=== PATIENT | female | born 1995 | race Caucasian/White ===

== ENCOUNTER 2017-09-28 19:14 | Outpatient (CLI) | payer MEDICAID, SELFPAY ==
[2017-09-28 20:00] VITALS: BMI 24.9
--- NOTE | 2017-09-28 20:32 | OB.TRI.HP_ITS ---
History of Present Illness Date of Service: 09/28/17 Was patient seen by the physician?: Yes Reason For Visit: R/O LABOR Date of Service: 09/28/17 Final AMANDA: 01/25/18 Final AMANDA Source: US <20 weeks Gestational age: 23 Weeks and 0 Days History of Present Illness: 21yo @ 23 weeks c/o contractions. pt reports was in office last week and was sent to [facility] for R/O PTL- pt reports was dilated 2cm in office. pt reports was at [place] and discharged. Pt denies VB. reports contractions every 5 min. pt reports mucous discharge since 5pm. pt denies recent intercourse. Pt offers no other concerns today. Home Medications Medication Instructions Recorded Albuterol Inhaler [Ventolin Hfa 1 - 2 puff INHALATION Q4H PRN PRN 06/08/17 (SP)] Vit No.130/Iron/FA 1 each PO DAILY 06/08/17 [ Vitamins] Acetaminophen [Tylenol] 650 mg PO Q8H 09/28/17 Allergies codeine Allergy (Verified 09/28/17 19:58) Anaphylaxis latex Allergy (Verified 09/28/17 19:58) Rash Physical Exam General: Alert, Oriented x3 Abdomen: Soft, Non Tender, Gravid Estimated gestational size: Appropriate for gestational size Presentation: Cephalic Cervix Dilation (cm): 1 Station: -3 Effacement (%): 40 NST - FHR Rate Baby A Baseline: 150 Uterine Activity:: uterine irritability Impression/Plan 21yo @ 23 weeks with cramping- not in labor 1) cervical exam stable- if all testing reassuring pt will be dc home- pelvic rest reviewed 2) increase PO fluids 3) off work until October 12- next Appointment in office 4) call if worsening symptoms 5) ROM plus sent 6) urine sent
[2017-09-28 20:42] LABS: ROM Internal Control Test YES-OK TO RESULT pt. (Internal QC); ROM Patient Test Negative (Negative)
[2017-09-28 20:44] LABS: Mucous, Urine 0 SEEN /hpf (<or=2+); Red Blood Cells-Urine 0 SEEN /hpf (0-5)
[2017-09-28 20:47] LABS: Color, Urine Yellow (Yellow); Glucose, Dipstick Normal (Normal); Ketone-Dipstick Negative (Negative); Leukocyte Esterase-Dipstick 500 /ul (Negative); Nitrite-Dipstick Negative (Negative); Occult Blood-Urine Negative /ul (Negative); Protein-Dipstick Negative (Negative); Specific Gravity, Urine 1.015 (1.002-1.030); Urine Bilirubin Dipstick Negative (Negative); Urine Clarity Sl. Cloudy (Clear); Urine Urobilinogen 1 mg/dl (Normal); Urine pH 6.5 (5.0 - 8.0)
[2017-09-28 20:59] LABS: Amorphous Sediment 1+ URATE; Bacteria 2+ /hpf (None Seen); Squamous Epithelial Cells - UA 0-5 SEEN /hpf (5-10); White Blood Cells 10-25 SEEN /hpf (0-5)
== END 2017-09-28 21:35 | disposition home or self-care (01) ==
LOC: WPOUT 19:31 → WP 19:31
PROVIDERS: Family Provider Family Medicine; PCP Family Medicine; Visit Provider Obstetrics & Gynecology
DX: O26.892 Other specified pregnancy related conditions, second trimester (principal); R25.2 Cramp and spasm; Z3A.23 23 weeks gestation of pregnancy
CPT/HCPCS: 59025; 59050; 81001; 84112; 87077; 87086; 87088; 87186; 99218; G0378

== ENCOUNTER 2017-10-11 05:05 | Outpatient (CLI) | payer MEDICAID, SELFPAY ==
[2017-10-11 06:06] LABS: Bacteria 0 SEEN /hpf (None Seen); Red Blood Cells-Urine 0 SEEN /hpf (0-5); White Blood Cells 0 SEEN /hpf (0-5)
[2017-10-11 06:10] LABS: Color, Urine Yellow (Yellow); Glucose, Dipstick Normal (Normal); Ketone-Dipstick Negative (Negative); Leukocyte Esterase-Dipstick Negative /ul (Negative); Nitrite-Dipstick Negative (Negative); Occult Blood-Urine Negative /ul (Negative); Protein-Dipstick Negative (Negative); Specific Gravity, Urine 1.015 (1.002-1.030); Urine Bilirubin Dipstick Negative (Negative); Urine Clarity Clear (Clear); Urine Urobilinogen Normal (Normal)
[2017-10-11 06:21] VITALS: BMI 26.3
[2017-10-11 06:29] LABS: ROM Internal Control Test YES-OK TO RESULT pt. (Internal QC); ROM Patient Test Negative (Negative)
[2017-10-11 06:32] LABS: Mucous, Urine 1+ /hpf (<or=2+); Squamous Epithelial Cells - UA 10-25 SEEN /hpf (5-10)
[2017-10-11 06:53] LABS: Fetal Fibronectin Negative
[2017-10-11 06:54] LABS: Record Kit Lot#, fFN J7025
[2017-10-11] MEDS: Betamethasone/Betamethasone 30 MG/5 ML Vial 12 MG IM (07:12)
--- NOTE | 2017-10-11 08:00 | HP.PCM_ITS ---
<Jessica Hernandez - Last Filed: 10/11/17 07:48> - Problem List (1) Short interval between pregnancies affecting in second trimester, antepartum Status: Acute (2) Tobacco use disorder affecting in second trimester, antepartum Status: Resolved (3) Risk of labor in second trimester Status: Acute (4) History of anxiety Status: Chronic History Date of Admission: 10/11/17 Final AMANDA: 01/25/18 Final AMANDA Source: US <20 weeks Gestational age: 24 Weeks and 6 Days History of this : Uncomplicated antepartum course - evaluation for irregular contractions and pelvic pressure on 09/24/17 and 09/27/17. Dr. Hayden LE consulted, patient was sent to [facility] for evaluation. Patient discharged to home without incident. Patient recently treated for a UTI last week, recently finished 7 day course of Macrobid 100mg PO BID antibiotic Pertinent Past Medical History: Sort interval between History of Anxiety Allergies codeine Allergy (Verified 10/11/17 06:22) Anaphylaxis latex Allergy (Verified 10/11/17 06:22) Rash Proctozone-HC 2.5% rectal cream PRN BID hemorrhoids Zofran 4mg ODT q 8 hours PRN Smoking Status: Former smoker - Quit smoking as of 06/18/17 Alcohol: None Drug Use: none Number of Fetus(es): 1 Review of Systems Constitutional: Denies: Chills, Fever, Weight Change HEENT: Denies: Head Aches, Sinus Congestion, Sinus Drainage Cardiovascular: Denies: Chest Pain, Palpitations Respiratory: Denies: Cough, Shortness of breath at rest, Sputum production Gastrointestinal: Denies: Abdominal Pain, Nausea, Vomiting Genitourinary: Denies: Dysuria Gynecological: Reports: Vaginal discharge - thin watery mucousy discharge noted. ROM plus sent Musculoskeletal: Denies: Joint Pain, Joint Tenderness Skin: Denies: Rash, Wounds Neurological: Denies: Numbness, Tingling, Focal weakness Psychiatric: Denies: Anxiety, Depression, Homicidal Ideations, Suicidal Ideations Hematologic/ Lymphatic: Denies: Easy Bruising, Easy Bleeding Physical Exam Vitals: VSS, afebrile - see nursing note for vital signs FHT by doppler, 150s, + accel auscultated Irregular mild ctx palpated q 5-10 minutes General: Alert, Oriented x3, No apparent distress Cardiovascular: Regular rate, Regular Rhythm Lungs: Clear to auscultation Abdomen: Bowel Sounds Present, Gravid, Appropriate for Gestational Age Extremities:: No edema Estimated gestational size: Appropriate for gestational size Presentation: Cephalic - By ultrasound Cervix Dilation (cm): 0 - External os 2-3cm Station: -3 Effacement (%): 25 Assessment/Plan Active and Suspected Problems Short interval between pregnancies affecting in second trimester, antepartum (Acute) Risk of labor in second trimester (Acute) A: 21 y/o @ 24+ weeks, R/O PTL, R/O PPROM, Reassuring FHT P: 1) Consult with Dr. Lalit LOOMIS about this patient d/t pre-term status 2) fFN, urinalysis and ROM plus sent - all negative results 3) Decision to start course of Betamethasone 12mg IM x1 now, repeat dose due in 24 hours 4) External os cervical change noted though internal os still closed - will have patient maintain PO hydration and then recheck cervix to evaluate change 5) If contractions stop or no cervical change noted anticipate discharge to home with return to hospital tomorrow for 2nd dose of steroid injection. 6) Transfer to medical management Jessica Hernandez CNM <Adilene Cohn - Last Filed: 10/11/17 08:11> History Allergies codeine Allergy (Verified 10/11/17 06:22) Anaphylaxis latex Allergy (Verified 10/11/17 06:22) Rash
--- NOTE | 2017-10-11 12:26 | OB.TRI.NOTE ---
History of Present Illness Date of Service: 10/11/17 Was patient seen by the physician?: Yes Reason For Visit: R/O LABOR Date of Service: 10/11/17 Final AMANDA Source: US <20 weeks Gestational age: 24.6 Home Medications Medication Instructions Recorded Albuterol Inhaler [Ventolin Hfa 1 - 2 puff INHALATION Q4H PRN PRN 06/08/17 (SP)] Vit No.130/Iron/FA 1 each PO DAILY 06/08/17 [ Vitamins] Acetaminophen [Tylenol] 650 mg PO Q8H 09/28/17 Allergies codeine Allergy (Verified 10/11/17 06:22) Anaphylaxis latex Allergy (Verified 10/11/17 06:22) Rash Physical Exam General: Alert, Oriented x3 Abdomen: Soft, Non Tender, Gravid Estimated gestational size: Appropriate for gestational size Presentation: Cephalic Cervix Dilation (cm): 0 Station: -3 Effacement (%): 40 NST - FHR Rate Baby A Uterine Activity:: occsaional - but not well formed contractions- Impression/Plan 21yo @ 24.6 wks- False labor 1) cervical exam- internal os is closed and thick. Repeated 2x by Myself 2) FFN and ROM+ negative 3) Celestone given x 1 pt to return for repeat dose tomorrow 4) F/u in office [facility] on wednesday for Cervical length 5) labor reviewed- [facility]
== END 2017-10-11 12:20 | disposition home or self-care (01) ==
LOC: WPOUT 05:42 → WP 05:42
PROVIDERS: Family Provider Family Medicine; PCP Family Medicine; Visit Provider Obstetrics & Gynecology
DX: O60.02 Preterm labor without delivery, second trimester (principal); O09.892 Supervision of other high risk pregnancies, second trimester; O99.342 Other mental disorders complicating pregnancy, second trimester; F41.9 Anxiety disorder, unspecified; Z3A.24 24 weeks gestation of pregnancy; Z87.440 Personal history of urinary (tract) infections; Z87.891 Personal history of nicotine dependence
CPT/HCPCS: 59050; 76815; 81001; 82731; 84112; 99218; G0378; J0702

== ENCOUNTER 2017-10-12 06:55 | Outpatient (CLI) | payer MEDICAID, SELFPAY ==
[2017-10-12] MEDS: Betamethasone/Betamethasone 30 MG/5 ML Vial 12 MG IM (07:41)
[2017-10-12 07:44] VITALS: BMI 25.0
--- NOTE | 2017-10-14 14:29 | OB.TRI.NOTE ---
History of Present Illness Date of Service: 10/12/17 Was patient seen by the physician?: No Reason For Visit: CELESTONE SHOT Home Medications Medication Instructions Recorded Albuterol Inhaler [Ventolin Hfa 1 - 2 puff INHALATION Q4H PRN PRN 06/08/17 (SP)] Vit No.130/Iron/FA 1 each PO DAILY 06/08/17 [ Vitamins] Acetaminophen [Tylenol] 650 mg PO Q8H 09/28/17 Allergies codeine Allergy (Verified 10/12/17 07:45) Anaphylaxis latex Allergy (Verified 10/12/17 07:45) Rash Impression/Plan 21 YOF high risk multigravida, threatened labor at 23 weeks
== END 2017-10-12 08:00 | disposition home or self-care (01) ==
LOC: WPOUT 06:57 → WP 06:57
PROVIDERS: Family Provider Family Medicine; PCP Family Medicine; Visit Provider Obstetrics & Gynecology
DX: O09.92 Supervision of high risk pregnancy, unspecified, second trimester (principal); O47.02 False labor before 37 completed weeks of gestation, second trimester; Z3A.23 23 weeks gestation of pregnancy
CPT/HCPCS: 96372; 99218; G0378; J0702

== ENCOUNTER 2017-11-08 21:45 | Outpatient (CLI) | payer MEDICAID, SELFPAY ==
[2017-11-08 22:18] VITALS: BMI 27.2
[2017-11-08 23:19] LABS: ROM Internal Control Test YES-OK TO RESULT pt. (Internal QC); ROM Patient Test Negative (Negative)
[2017-11-08 23:40] VITALS: RESP 18
--- NOTE | 2017-11-11 15:40 | OB.TRI.NOTE ---
History of Present Illness Date of Service: 11/11/17 Was patient seen by the physician?: Yes Reason For Visit: R/O LABOR Date of Service: 11/08/17 Gestational age: 29 History of Present Illness: 22-year-old multigravid female presented for complaint of possible rupture of membranes and some irregular contractions. She denied any vaginal bleeding. Good movement. Home Medications Medication Instructions Recorded Albuterol Inhaler [Ventolin Hfa 1 - 2 puff INHALATION Q4H PRN PRN 06/08/17 (SP)] Vit No.130/Iron/FA 1 each PO DAILY 06/08/17 [ Vitamins] Acetaminophen [Tylenol] 650 mg PO Q8H 09/28/17 Allergies codeine Allergy (Verified 11/08/17 22:20) Anaphylaxis Rash latex Allergy (Verified 11/08/17 22:20) Rash Physical Exam Vitals: Vital Signs Resp 18 11/08/17 23:40 General: Alert, Cooperative, No apparent distress Abdomen: Soft, Non Tender, Non-Distended, Gravid Extremities:: No edema Estimated gestational size: Appropriate for gestational size Presentation: Cephalic Cervix Dilation (cm): 0.5 - Thick, firm, posterior Station: -3 Effacement (%): 0 NST - FHR Rate Baby A Baseline: 145 Variability:: Moderate Accelerations:: 15 x 15 Decelerations:: None NST Reactive:: Yes FHR Category:: Category I Uterine Activity:: irritability Impression/Plan James speculum exam done, some yellow thin discharge in the vault. Cervix is nonfriable appears closed. There is no blood or fluid in the vagina. 22-year-old multigravid female with threatened labor at 29 weeks ROM plus is negative. Physical exam is negative for gross rupture of membranes. I reviewed with her that the irritability apparent on the monitor are not contractions but indicative of of or maternal movement. She is to follow-up in the office as scheduled or as needed.
== END 2017-11-08 23:40 | disposition home or self-care (01) ==
LOC: WPOUT 21:48 → WP 21:49
PROVIDERS: Family Provider Family Medicine; PCP Family Medicine; Visit Provider Obstetrics & Gynecology
DX: O47.03 False labor before 37 completed weeks of gestation, third trimester (principal); Z3A.29 29 weeks gestation of pregnancy
CPT/HCPCS: 59025; 59050; 76815; 84112; 87210; 99218; G0378

== ENCOUNTER 2017-12-07 10:55 | Outpatient (CLI) | payer MEDICAID, SELFPAY ==
[2017-12-07 11:33] VITALS: BMI 27.6
--- NOTE | 2017-12-07 17:18 | OB.TRI.NOTE ---
History of Present Illness Date of Service: 12/07/17 Was patient seen by the physician?: No Reason For Visit: MONITORING Date of Service: 12/07/17 Final AMANDA: 01/25/18 Final AMANDA Source: US <20 weeks Gestational age: 33 Weeks and 0 Days History of Present Illness: 22-year-old high risk multigravid female presented to the office today complaining of contractions. She was found to not be in labor but upon monitoring she had marked variability and what appeared to be possible tachycardia. She was sent labor and delivery for prolonged monitoring. Home Medications Medication Instructions Recorded Albuterol Inhaler [Ventolin Hfa 1 - 2 puff INHALATION Q4H PRN PRN 06/08/17 (SP)] Vit No.130/Iron/FA 1 each PO DAILY 06/08/17 [ Vitamins] Acetaminophen [Tylenol] 650 mg PO Q8H 09/28/17 Allergies codeine Allergy (Verified 11/08/17 22:20) Anaphylaxis Rash latex Allergy (Verified 11/08/17 22:20) Rash NST - FHR Rate Baby A Baseline: 145 Variability:: Moderate Accelerations:: 15 x 15 Decelerations:: None NST Reactive:: Yes FHR Category:: Category I Uterine Activity:: irreg ctxs Impression/Plan 22-year-old high risk multigravida female at 33 gestational weeks with threatened labor. No significant cervical change from last week when the patient was examined in the office. Reassured. Nonstress test is category 1 here. Home with kick counts and labor precautions and follow-up in the office in 2 weeks or as needed.
== END 2017-12-07 12:55 | disposition home or self-care (01) ==
LOC: WPOUT 11:07 → WP 12-08 09:42
PROVIDERS: Family Provider Family Medicine; PCP Family Medicine; Visit Provider Obstetrics & Gynecology
DX: O09.93 Supervision of high risk pregnancy, unspecified, third trimester (principal); O60.03 Preterm labor without delivery, third trimester; Z3A.33 33 weeks gestation of pregnancy
CPT/HCPCS: 59025; 99218; G0378

== ENCOUNTER 2017-12-09 05:25 | Outpatient (CLI) | payer MEDICAID, SELFPAY ==
[2017-12-09 06:06] LABS: Mucous, Urine 0 SEEN /hpf (<or=2+); Red Blood Cells-Urine 0 SEEN /hpf (0-5)
[2017-12-09 06:21] VITALS: BMI 27.6
[2017-12-09 06:24] LABS: Color, Urine Straw (Yellow); Glucose, Dipstick Normal (Normal); Ketone-Dipstick Negative (Negative); Leukocyte Esterase-Dipstick Negative /ul (Negative); Nitrite-Dipstick Negative (Negative); Occult Blood-Urine Negative /ul (Negative); Protein-Dipstick Negative (Negative); Urine Bilirubin Dipstick Negative (Negative); Urine Clarity Clear (Clear); Urine Urobilinogen Normal (Normal)
[2017-12-09 06:31] LABS: Bacteria 1+ /hpf (None Seen)
[2017-12-09 06:32] LABS: Squamous Epithelial Cells - UA 5-10 SEEN /hpf (5-10); White Blood Cells 0-5 SEEN /hpf (0-5)
[2017-12-09] MEDS: Lactated Ringers 1,000 ML 999 ML IV (07:30)
--- NOTE | 2017-12-09 10:23 | OB.TRI.NOTE ---
History of Present Illness Date of Service: 12/09/17 Was patient seen by the physician?: Yes Reason For Visit: CRAMPING Date of Service: 12/09/17 Final AMANDA Source: US <20 weeks Gestational age: 33.2 Home Medications Medication Instructions Recorded Albuterol Inhaler [Ventolin Hfa 1 - 2 puff INHALATION Q4H PRN PRN 06/08/17 (SP)] Vit No.130/Iron/FA 1 each PO DAILY 06/08/17 [ Vitamins] Acetaminophen [Tylenol] 650 mg PO Q8H PRN 09/28/17 Hydrocortisone 2.5% Crm [Hytone] 1 applicatio PRN PRN 12/09/17 Allergies codeine Allergy (Verified 11/08/17 22:20) Anaphylaxis Rash latex Allergy (Verified 11/08/17 22:20) Rash Physical Exam General: Alert, Oriented x3 Abdomen: Soft, Non Tender, Gravid Estimated gestational size: Appropriate for gestational size Presentation: Cephalic Cervix Dilation (cm): 2 Station: -3 Effacement (%): 0 NST - FHR Rate Baby A Baseline: 140 Variability:: Moderate Accelerations:: 15 x 15 Decelerations:: None NST Reactive:: Yes FHR Category:: Category I Uterine Activity:: 2-4 but after Hydration only occaisonal contractions Impression/Plan 22yo @ 33.2 wks with contractions, NOT IN LABOR 1) reviewed PO hydration 2) DC HOME 3) F/u in office as scheduled.
== END 2017-12-09 10:30 | disposition home or self-care (01) ==
LOC: WPOUT 05:33 → WP 05:33
PROVIDERS: Family Provider Family Medicine; PCP Family Medicine; Visit Provider Obstetrics & Gynecology
DX: O60.03 Preterm labor without delivery, third trimester (principal); Z3A.33 33 weeks gestation of pregnancy
CPT/HCPCS: 59025; 59050; 81001; 99218; J7120; G0378

== ENCOUNTER 2017-12-23 10:55 | Outpatient (CLI) | payer MEDICAID, SELFPAY ==
[2017-12-23 11:11] VITALS: BMI 27.4
[2017-12-23 11:41] LABS: ROM Internal Control Test YES-OK TO RESULT pt. (Internal QC); ROM Patient Test Negative (Negative)
--- NOTE | 2017-12-23 12:29 | OB.TRI.NOTE ---
- Problem List (1) Decreased movement during in third trimester, antepartum Status: Acute Qualifiers: Fetus number: single or unspecified fetus Qualified Code(s): O36.8130 - Decreased movements, third trimester, not applicable or unspecified (2) Vaginal discharge during in third trimester Status: Acute (3) Risk of labor in second trimester Status: Acute History of Present Illness Date of Service: 12/23/17 Was patient seen by the physician?: No Reason For Visit: RO SROM AND DECREASED MOVEMENT Date of Service: 12/23/17 Final AMANDA: 01/25/18 Final AMANDA Source: US <20 weeks Gestational age: 35 Weeks and 2 Days History of Present Illness: Patient called office today reporting no palpable movement since 9pm last night. Patient also reported need to change her underwear 4 times since this morning as they were soaked. Patient unsure if she is having any regular cramps or contractions at this time. Home Medications Medication Instructions Recorded Albuterol Inhaler [Ventolin Hfa 1 - 2 puff INHALATION Q4H PRN PRN 06/08/17 (SP)] Vit No.130/Iron/FA 1 each PO DAILY 06/08/17 [ Vitamins] Acetaminophen [Tylenol] 650 mg PO Q8H PRN 09/28/17 RX: Hydrocortisone 2.5% Crm 1 applicatio PRN PRN 12/09/17 [Hytone] Allergies codeine Allergy (Verified 11/08/17 22:20) Anaphylaxis Rash latex Allergy (Verified 11/08/17 22:20) Rash - Pertinent Past Medical History Pertinent Past Medical History: Hx of Anxiety - currently has been off medication during the as she has felt her symptoms have been well controlled Hx of tobacco use during , currently smoking 1/4-1/2 ppd Short Interval between pregnancies affecting management Physical Exam Vitals: See Nursing Note for Vital Signs. Exam done by nursing staff. Cervical dilation unchanged from previous admission. ROM plus negative. Abdomen: Gravid, Appropriate for Gestational Age Cervix Dilation (cm): 2 NST - FHR Rate Baby A Baseline: 145 Variability:: Moderate Accelerations:: 15 x 15 Decelerations:: None NST Reactive:: Yes FHR Category:: Category I Uterine Activity:: Uterine irritability noted - irregular ctx Impression/Plan 22 y/o @ 35.2 weeks, False Labor, Category I FHT, Leukorrhea of P: 1) Patient discharged to home 2) Plan to f/u as scheduled at [place] [facility] Office Jessica ALVAREZ
== END 2017-12-23 12:05 | disposition home or self-care (01) ==
LOC: WPOUT 11:08 → WP 11:09
PROVIDERS: Family Provider Family Medicine; PCP Family Medicine; Visit Provider Obstetrics & Gynecology
DX: O47.03 False labor before 37 completed weeks of gestation, third trimester (principal); O99.89 Other specified diseases and conditions complicating pregnancy, childbirth and the puerperium; N89.8 Other specified noninflammatory disorders of vagina; O36.8130 Decreased fetal movements, third trimester, not applicable or unspecified; O99.343 Other mental disorders complicating pregnancy, third trimester; F41.9 Anxiety disorder, unspecified; O99.333 Smoking (tobacco) complicating pregnancy, third trimester; F17.210 Nicotine dependence, cigarettes, uncomplicated; O09.893 Supervision of other high risk pregnancies, third trimester; Z3A.35 35 weeks gestation of pregnancy
CPT/HCPCS: 59025; 59050; 84112; 99218; G0378

== ENCOUNTER 2017-12-26 22:50 | Outpatient (CLI) | payer MEDICAID, SELFPAY ==
[2017-12-26 22:58] VITALS: BMI 28.3
[2017-12-26 23:34] LABS: ROM Internal Control Test YES-OK TO RESULT pt. (Internal QC); ROM Patient Test Negative (Negative)
--- NOTE | 2017-12-30 11:04 | OB.TRI.NOTE ---
History of Present Illness Date of Service: 12/26/17 Was patient seen by the physician?: No Reason For Visit: R/O SROM Date of Service: 12/26/17 Final AMANDA Source: US <20 weeks Gestational age: 36 Home Medications Medication Instructions Recorded Albuterol Inhaler [Ventolin Hfa 1 - 2 puff INHALATION Q4H PRN PRN 06/08/17 (SP)] Vit No.130/Iron/FA 1 each PO DAILY 06/08/17 [ Vitamins] Acetaminophen [Tylenol] 650 mg PO Q8H PRN 09/28/17 Allergies codeine Allergy (Verified 11/08/17 22:20) Anaphylaxis Rash latex Allergy (Verified 11/08/17 22:20) Rash NST - FHR Rate Baby A Baseline: 140 bpm Variability:: Moderate Accelerations:: 15 x 15 Decelerations:: None NST Reactive:: Yes, Appropriate for gestational age FHR Category:: Category I Uterine Activity:: irreg ctxs Impression/Plan 22 YOF high risk multigravida at 36 weeks w/ threatened PTL. No SROM, no evidence of labor f/u as scheduled or prn
== END 2017-12-26 23:45 | disposition home or self-care (01) ==
LOC: WPOUT 22:55 → WP 22:56
PROVIDERS: Family Provider Family Medicine; PCP Family Medicine; Visit Provider Obstetrics & Gynecology
DX: O09.93 Supervision of high risk pregnancy, unspecified, third trimester (principal); O60.03 Preterm labor without delivery, third trimester; Z3A.36 36 weeks gestation of pregnancy
CPT/HCPCS: 59025; 59050; 84112; 99218; G0378

== ENCOUNTER 2018-01-09 20:44 | Outpatient (CLI) | payer MEDICAID, SELFPAY ==
--- NOTE | 2018-01-09 20:44 | DT_ITS ---
This patient was seen during an EMR downtime January 10, 2018 - January 17, 2018. This patient may have a combination of paper and electronic documentation or all paper documentation. All documentation is viewable within the e-chart portion of [facility] for each patient visit.
[2018-01-09 21:19] LABS: Absolute Lymphocyte Count 2.17 X10^3/ul (0.83-4.51); Absolute Neutrophil Count 5.8 X10^3/uL (2.0-7.7); Basophil# 0.01 X10^3/uL; Basophil% 0.1 % (0-1); Eosinophil# 0.09 X10^3/uL; Hematocrit 29.8 % (37-47); Hemoglobin 9.6 g/dl (12.0-15.0); Lymphocyte # 2.17 X10^3/ul (4.0); Lymphocyte % 25.1 % (19-41); Mean Corp Hgb Conc 32.2 g/gl (32-36); Mean Corpuscular Hgb 28.4 pg (27.0-32.0); Mean Corpuscular Volume 88.2 fL (81-99); Mean Platelet Vol. 9.2 fl (6.2-12.0); Monocyte# 0.56 X10^3/uL; Monocyte% 6.5 % (0-10); Neutrophil # 5.78 X10^3/uL (2.7-7.7); Neutrophil % 67.1 % (47-70); Platelet Count 253 K/mm3 (150-450); RBC Distribution Width CV 12.9 % (11.6-14.6); RBC Distribution Width SD 41.9 fl (35.1-43.9); Red Blood Count 3.38 M/mm3 (4.2-5.4); White Blood Count 8.6 K/mm3 (4.4-11.0)
[2018-01-09 21:23] LABS: POSITIVE COUNT NO; POSITIVE DIFFERENTIAL NO; POSITIVE MORPHOLOGY NO
[2018-01-09 21:26] VITALS: BMI 27.8
[2018-01-09] MEDS: Lactated Ringers 1,000 ML 500 ML IV (21:27)
[2018-01-09 21:32] LABS: Prothrombin Time (Protime)PT. 13.2 SECONDS (11.7-14.9)
[2018-01-09 21:33] LABS: Fibrinogen 468 mg/dl (203-444); Partial Thromboplast Time 25.1 Seconds (24.1-36.2)
[2018-01-09 21:37] LABS: ALB/GLOB Ratio 0.6 RATIO (0.9-2.4); AST(SGOT) 18 U/L (15-37); Alanine Aminotransfer ALT/SGPT 15 U/L (13-56); Albumin, Serum 2.8 g/dL (3.2-5.0); Alkaline Phosphatase 91 U/L (45-117); Anion Gap 10 (5-15); BUN 6 mg/dL (7-18); BUN/Creat Ratio 9.8 RATIO (10-20); Calcium,Total 8.7 mg/dL (8.5-10.1); Chloride 107 mmol/L (98-107); Creatinine, Serum 0.61 mg/dL (0.55-1.02); EST Glomerular Filtration Rate 130 mL/min (>60); Est Glom Filt Rate - Afr Amer 157 mL/min (>60); Estimated Creatinine Clearance 130.17 ml/min; Globulin 4.4 g/dL (2.2-4.2); Glucose 96 mg/dL (74-106); Potassium 3.8 mmol/L (3.5-5.1); Protein, Total 7.2 g/dL (6.4-8.2); Sodium Level 139 mmol/L (136-145)
--- NOTE | 2018-03-08 23:19 | OB.TRI.NOTE ---
History of Present Illness Date of Service: 01/09/18 Was patient seen by the physician?: No Reason For Visit: R/O LABOR Final AMANDA Source: US <20 weeks Allergies codeine Allergy (Mild, Verified 01/19/18 17:39) Rash Rash latex Allergy (Verified 01/09/18 21:28) Rash Impression/Plan NST for false labor
== END 2018-01-10 01:15 | disposition home or self-care (01) ==
LOC: WPOUT 20:54 → WP 20:55
PROVIDERS: Family Provider Family Medicine; PCP Family Medicine; Visit Provider Obstetrics & Gynecology
DX: O47.9 False labor, unspecified (principal); Z3A.00 Weeks of gestation of pregnancy not specified
CPT/HCPCS: 96360; 96361; 59025; 59050; 80053; 85025; 85384; 85610; 85730; 86850; 86900; 99218; J7120; G0378

== ENCOUNTER 2018-01-18 06:45 | Inpatient (IN) | payer MEDICAID, SELFPAY ==
[2018-01-18 06:52] VITALS: BMI 28.1
[2018-01-18] MEDS: Lactated Ringers 1,000 ML 50 ML IV ×2 (07:41→09:44)
[2018-01-18] MEDS: Oxytocin 30 units/NS 500 ml 30 UNITS/500 ML IV.SOLN IV (07:51)
[2018-01-18 07:53] LABS: Hematocrit 29.9 % (37-47); Hemoglobin 9.6 g/dl (12.0-15.0); Mean Corp Hgb Conc 32.1 g/gl (32-36); Mean Corpuscular Volume 90.3 fL (81-99); Mean Platelet Vol. 9.3 fl (6.2-12.0); Platelet Count 267 K/mm3 (150-450); RBC Distribution Width CV 12.6 % (11.6-14.6); RBC Distribution Width SD 40.1 fl (35.1-43.9); Red Blood Count 3.31 M/mm3 (4.2-5.4); White Blood Count 9.7 K/mm3 (4.4-11.0)
[2018-01-18 07:54] LABS: Scan Indicated on CBC? Y/N NO
[2018-01-18] MEDS: fentaNYL-bupivacaine (epidural) 100 ML BAG EPIDURAL (09:31)
[2018-01-18] MEDS: Oxytocin 30 units/NS 500 ml 30 UNITS/500 ML IV.SOLN 334 UNITS IV (13:19)
--- NOTE | 2018-01-18 13:31 | PCM.OB.VAG ---
Vaginal Delivery Maternal Presentation: Elective Induction Method of Induction: Pitocin, Amniotomy Amniotic Membrane Rupture Type: Artificial Amniotic Fluid Description: Lightly stained meconium Final AMANDA: 01/25/18 Final AMANDA Source: US <20 weeks Gestational age: 39 Weeks and 0 Days Date of Procedure: 01/18/18 Pre-Operative Diagnosis: labor Post-Operative Diagnosis: same Surgery/ Procedure Performed: Spontaneous Vaginal Delivery Type of Anesthesia: Epidural Description of Procedure: A vigorous female was delivered ESTELA over a second-degree perineal laceration. The remainder the infant was delivered with maternal pushing and gentle traction only in less than 15 seconds. The Pitocin infusion was initiated for active management of the third stage. The cord was clamped and cut after 1 minute. The was attended to by the waiting nursing staff. The placenta was delivered spontaneously and intact. The cervix and vagina were intact. The second-degree perineal laceration was repaired with 3-0 Vicryl suture in a running standard fashion. Sponge and needle counts were correct. A vaginal sweep was completed by me. Presentation: ESTELA Placental Delivery Description: Spontaneous Placenta Disposition: [facility] Cord Vessel Description: 3 Vessels Cord Entanglement: None Drain: Campbell to straight drain - removed immediately before delivery Estimated Blood Loss: 300 A gender: Female (1 minute): 8 (5 minute): 9 Episiotomy Description: None Laceration: 2nd degree - perineal
--- NOTE | 2018-01-18 13:33 | PCM.HP.OB ---
History Date of Admission: 10/11/17 Final AMANDA: 01/25/18 Final AMANDA Source: US <20 weeks Gestational age: 39 Weeks and 0 Days History of this : 22-year-old 4 para 1021 who presents at 39 weeks gestation with EDC of 01/25/2018 by first trimester ultrasound alone presents for elective induction of labor. She has been in the office in labor and delivery multiple times this for contractions and threatened labor. She denies any gross vaginal bleeding or leaking of fluid. She has had no regular contractions today before admission. Past medical history is significant for history of depression Past surgical history : Teeth extraction. Allergies codeine Allergy (Verified 01/09/18 21:28) Anaphylaxis Rash latex Allergy (Verified 01/09/18 21:28) Rash Home Medications: Home Medications Albuterol Inhaler [Ventolin Hfa (SP)] 1 - 2 puff INHALATION Q4H PRN PRN 06/08/17 Vit No.130/Iron/FA [ Vitamins] 1 each PO DAILY 06/08/17 Acetaminophen [Tylenol] 650 mg PO Q8H PRN 09/28/17 Smoking Status: Former smoker Alcohol: None Number of Fetus(es): 1 History Past Pregnancies: Past Pregnancies Delivery Date Name GA/Weeks Outcome Route Weight Gender Labor Length Anesthesia Delivery Location Provider FOB Expected Infant Delivery Method: Spontaneous Vaginal Review of Systems Constitutional: Denies: Chills, Fever Eyes: Denies: Blurred vision Cardiovascular: Denies: Chest Pain Respiratory: Denies: Cough Physical Exam General: Alert, Cooperative Cardiovascular: Regular rate Lungs: Normal air movement Abdomen: Soft, Non Tender, Non-Distended, Gravid, Appropriate for Gestational Age Extremities:: No edema SAW SUPERINTENDENT: Normal external genitalia Estimated gestational size: Appropriate for gestational size Presentation: Cephalic Cervix Dilation (cm): 5 - posterior, med. consistency Station: -2 Effacement (%): 70 - AROM w/ moderate amt light msf Assessment/Plan All Active Problems Short interval between pregnancies affecting in second trimester, antepartum (Acute) Tobacco use disorder affecting in second trimester, antepartum (Resolved) Risk of labor in second trimester (Acute) Decreased movement during in third trimester, antepartum (Acute) Vaginal discharge during in third trimester (Acute) This is a 22 year-old, G 4, P 1021, at 39 weeks gestational age. Risk benefits and alternatives to elective induction labrum discussed with the patient, her questions were answered to her satisfaction and she desires to proceed. May have epidural, nitrous oxide, or Nubain as needed for pain control. Estimated weight is less than 4500 g clinically and pelvis is clinically adequate to expect vaginal delivery. She has light meconium-stained fluid in the resident surgeon has been notified to attend delivery.
--- NOTE | 2018-01-18 13:38 | HP.PCM_ITS ---
History Date of Admission: 10/11/17 Final AMANDA: 01/25/18 Final AMANDA Source: US <20 weeks Gestational age: 39 Weeks and 0 Days History of this : 22-year-old 4 para 1021 who presents at 39 weeks gestation with EDC of by first trimester ultrasound alone presents for elective induction of labor. She has been in the office in labor and delivery multiple times this for contractions and threatened labor. She denies any gross vaginal bleeding or leaking of fluid. She has had no regular contractions today before admission. Past medical history is significant for history of depression Past surgical history : Teeth extraction. Allergies codeine Allergy (Verified 01/09/18 21:28) Anaphylaxis Rash latex Allergy (Verified 01/09/18 21:28) Rash Home Medications: Home Medications Albuterol Inhaler [Ventolin Hfa (SP)] 1 - 2 puff INHALATION Q4H PRN PRN Vit No.130/Iron/FA [ Vitamins] 1 each PO DAILY 06/08/17 Acetaminophen [Tylenol] 650 mg PO Q8H PRN 09/28/17 Smoking Status: Former smoker Alcohol: None Number of Fetus(es): 1 History Past Pregnancies: Past Pregnancies Delivery Date Name GA/Weeks Outcome Route Weight Gender Labor Length Anesthesia Delivery Location Provider FOB Expected Delivery Method: Spontaneous Vaginal Review of Systems Constitutional: Denies: Chills, Fever Eyes: Denies: Blurred vision Cardiovascular: Denies: Chest Pain Respiratory: Denies: Cough Physical Exam General: Alert, Cooperative Cardiovascular: Regular rate Lungs: Normal air movement Abdomen: Soft, Non Tender, Non-Distended, Gravid, Appropriate for Gestational Age Extremities:: No edema IT SECURITY CONSULTANT: Normal external genitalia Estimated gestational size: Appropriate for gestational size Presentation: Cephalic Cervix Dilation (cm): 5 - posterior, med. consistency Station: -2 Effacement (%): 70 - AROM w/ moderate amt light msf Assessment/Plan All Active Problems Short interval between pregnancies affecting in second trimester, antepartum (Acute) Tobacco use disorder affecting in second trimester, antepartum ( Resolved) Risk of labor in second trimester (Acute) Decreased movement during in third trimester, antepartum (Acute) Vaginal discharge during in third trimester (Acute) This is a 22 year-old, G 4, P 1021, at 39 weeks gestational age. Risk benefits and alternatives to elective induction labrum discussed with the patient, her questions were answered to her satisfaction and she desires to proceed. May have epidural, nitrous oxide, or Nubain as needed for pain control. Estimated weight is less than 4500 g clinically and pelvis is clinically adequate to expect vaginal delivery. She has light meconium-stained fluid in the casino slot supervisor has been notified to attend delivery.
[2018-01-18] MEDS: Oxytocin 30 units/NS 500 ml 30 UNITS/500 ML IV.SOLN 167 UNITS IV (13:50)
[2018-01-18] MEDS: 0.9% Saline Lock 10 ML Syringe IV (15:33)
[2018-01-18 17:30] VITALS: BP 102/73; PULSE 78; RESP 16; TEMP 36.9
[2018-01-18] MEDS: Naproxen 250 MG Tablet PO (18:41)
[2018-01-18 20:10] VITALS: BP 106/60; PULSE 88; RESP 18; TEMP 36.3
[2018-01-18] MEDS: Acetaminophen 500 MG Tablet 1000 MG PO (20:19)
[2018-01-19] VITALS: BP 109/61; PULSE 92; RESP 18; TEMP 36
[2018-01-19] MEDS: Naproxen 250 MG Tablet PO ×3 (02:20→21:09)
[2018-01-19 05:15] VITALS: BP 105/66; PULSE 88; RESP 18; TEMP 36.1
[2018-01-19] MEDS: Acetaminophen 500 MG Tablet 1000 MG PO ×2 (06:40→13:58)
[2018-01-19 08:00] VITALS: BP 99/62; PULSE 79; RESP 20; TEMP 36.2; O2SAT 96
--- NOTE | 2018-01-19 08:45 | PCM.PN.OB ---
Subjective: pain well controlled, average lochia, c/o cramping, destiny. w/ nursing - Physical Exam General: Alert, Cooperative, No apparent distress Vital Signs Temp Pulse Resp BP Pulse Ox 97.2 F L 79 20 H 99/62 96 01/19/18 08:00 01/19/18 08:00 01/19/18 08:00 01/19/18 08:00 01/19/18 08:00 Oxygen Delivery Method Room Air Weight: 76.7 kg Body Mass Index (BMI) 28.1 Intake and Output for Last 24 Hours 01/17/18 01/18/18 01/19/18 23:59 23:59 23:59 Intake Total 2214 / 2214 Output Total 2400 / 2400 Balance -186 / -186 Laboratory Tests Past 24 Hrs 01/18/18 07:40 Blood Type A POSITIVE Antibody Screen NEGATIVE Medical Necessity - Tobacco Use Smoking Status: Former smoker Assessment/Plan All Active Problems Short interval between pregnancies affecting in second trimester, antepartum (Acute) Tobacco use disorder affecting in second trimester, antepartum (Resolved) Risk of labor in second trimester (Acute) Decreased movement during in third trimester, antepartum (Acute) Vaginal discharge during in third trimester (Acute) PPD#1 doing well work on likely home tomorrow
--- NOTE | 2018-01-19 08:48 | PN.OBGYN_ITS ---
Subjective: pain well controlled, average lochia, c/o cramping, destiny. w/ nursing - Physical Exam General: Alert, Cooperative, No apparent distress Vital Signs Temp Pulse Resp BP Pulse Ox 97.2 F L 79 20 H 99/62 96 01/19/18 08:00 01/19/18 08:00 01/19/18 08:00 01/19/18 08:00 01/19/18 08:00 Oxygen Delivery Method Room Air Weight: 76.7 kg Body Mass Index (BMI) 28.1 Intake and Output for Last 24 Hours 01/17/18 01/18/18 01/19/18 23:59 23:59 23:59 Intake Total 2214 / 2214 Output Total 2400 / 2400 Balance -186 / -186 Laboratory Tests Past 24 Hrs 01/18/18 07:40 Blood Type A POSITIVE Antibody Screen NEGATIVE Medical Necessity - Tobacco Use Smoking Status: Former smoker Assessment/Plan All Active Problems Short interval between pregnancies affecting in second trimester, antepartum (Acute) Tobacco use disorder affecting in second trimester, antepartum ( Resolved) Risk of labor in second trimester (Acute) Decreased movement during in third trimester, antepartum (Acute) Vaginal discharge during in third trimester (Acute) PPD#1 doing well work on likely home tomorrow
[2018-01-19] MEDS: Senna/Docusate Sodium 1 Tablet PO (12:24)
[2018-01-19 12:25] VITALS: BP 106/66; PULSE 79; TEMP 36.6; O2SAT 94
[2018-01-19] MEDS: Hydrocortisone 2.5% Crm 1 APPLIC TOPICAL (13:57)
[2018-01-19 15:15] VITALS: BP 107/71; PULSE 81; RESP 16; TEMP 36.7; O2SAT 98
[2018-01-19] MEDS: Dibucaine 30 GM Tube 1 APPLIC TOPICAL (15:23)
[2018-01-19] MEDS: oxyCODONE 5 MG Tablet PO (18:27)
[2018-01-19 21:00] VITALS: BP 110/66; PULSE 79; RESP 18; TEMP 36.7
--- NOTE | 2018-01-19 22:16 | NURSING ---
pt states her urine has a somewhat foul smell, similar to what she had with last . Enc her to drink plenty of fluids and speak with Dr. Cohn in am.
[2018-01-20 01:30] VITALS: BP 97/66; PULSE 80; RESP 18; TEMP 36.3
[2018-01-20] MEDS: Acetaminophen 500 MG Tablet 1000 MG PO ×2 (01:45→09:19)
[2018-01-20] MEDS: Naproxen 250 MG Tablet PO (06:29)
--- NOTE | 2018-01-20 08:34 | PN.OBGYN_ITS ---
Subjective: pain well controlled, average lochia, stopped - Physical Exam General: Alert, Cooperative, No apparent distress Vital Signs Temp Pulse Resp BP Pulse Ox 97.4 F L 80 18 97/66 98 01/20/18 01:30 01/20/18 01:30 01/20/18 01:30 01/20/18 01:30 01/19/18 15:15 Oxygen Delivery Method Room Air Weight: 76.7 kg Body Mass Index (BMI) 28.1 Intake and Output for Last 24 Hours 01/18/18 01/19/18 01/20/18 23:59 23:59 23:59 Intake Total 2214 / 2214 Output Total 2400 / 2400 Balance -186 / -186 Medical Necessity - Tobacco Use Smoking Status: Former smoker Assessment/Plan All Active Problems Short interval between pregnancies affecting in second trimester, antepartum (Acute) Tobacco use disorder affecting in second trimester, antepartum ( Resolved) Risk of labor in second trimester (Acute) Decreased movement during in third trimester, antepartum (Acute) Vaginal discharge during in third trimester (Acute) PPD#2 doing well routine care stopped d/c home
--- NOTE | 2018-01-20 08:35 | DCINST_ITS ---
Discharge Diet: No Restrictions Discharge Activity: Return to Normal Activity, May not drive while taking narcotic pain medications., May Shower May resume sexual activity in: 4-6 weeks Additional Activity Instructions:: Nothing in the vagina for 4-6 weeks. You may return to work/school in 6 weeks. Call your doctor if your incision/area has: Continuous Slow Oozing, Sudden Increased Bleeding, Increased Pain/ Swelling, Increased Redness, Foul Smelling Discharge Additional Instructions: If you experience any of the following, contact your healthcare provider. * Bleeding that soaks a pad every hour for 2 hours * Fever 100.4 or higher * Unrelieved incision or abdominal pain * Swelling, redness, discharge or bleeding from your incision or episiotomy site * Your incision begins to separate * Problems urinating (including inability to urinate or burning while urinating) . * Visual changes * Severe headache * Flu-like symptoms * Pain or redness in one of both of your breasts * Pain, warmth, tenderness or swelling in your legs, especially the calf area * Frequent nausea and vomiting * Symptoms of depression or anxiety If you experience any of the following, call 911 or go to the nearest Emergency Room. * Chest pain * Problems breathing * Seizure activity * Partial or complete paralysis of a body part, slurred speech, weakness or drooping of the face, or a sudden inability to walk or hold your balance Allergies/Adverse Reactions: Allergies codeine Allergy (Mild, Verified 01/19/18 17:39) Rash Rash latex Allergy (Verified 01/09/18 21:28) Rash Medications to take at Discharge Albuterol Inhaler [Ventolin Hfa] 1 - 2 puff INHALATION Q4H PRN PRN 06/08/17 Vit No.130/Iron/FA [ Tablet] 1 each PO DAILY 06/08/17 Acetaminophen [Tylenol] 650 mg PO Q8H PRN 09/28/17 Ibuprofen [Motrin] 800 mg PO TID PRN PRN #60 tab 01/20/18 The following prescriptions were given: Ibuprofen [Motrin] 800 mg PO TID PRN PRN #60 tab PRN Reason: Pain Please Follow Up With: Adilene Cohn MD - [phone] When: Call to make an appointment with your doctor in 6 weeks. If you had elevated Blood Pressure or 4th degree laceration you will need to be seen in 2 weeks. Primary Care Physician: Ran Johnson [Primary Care Provider] -
[2018-01-20 09:06] VITALS: BP 95/71; PULSE 80; RESP 18; TEMP 36.1; O2SAT 95
== END 2018-01-20 11:50 | disposition home or self-care (01) | DRG 373 ==
PROVIDERS: Admitting Provider Obstetrics & Gynecology; Family Provider Family Medicine; PCP Family Medicine; Visit Provider Obstetrics & Gynecology
DX: O75.89 Other specified complications of labor and delivery (principal); O70.1 Second degree perineal laceration during delivery; O77.0 Labor and delivery complicated by meconium in amniotic fluid; O99.333 Smoking (tobacco) complicating pregnancy, third trimester; Z87.891 Personal history of nicotine dependence; Z91.040 Latex allergy status; Z88.5 Allergy status to narcotic agent; Z3A.39 39 weeks gestation of pregnancy; Z37.0 Single live birth
CPT/HCPCS: 59025; 59050; 85027; 86850; 86900; 99218; J7120; A4216; G0378; J0290; J3490

== ENCOUNTER 2018-04-28 05:29 | Day surgery (SDC) | payer MEDICAID, SELFPAY ==
[2018-04-28] VITALS (10 sets, daily range): BP systolic 100–120; BP diastolic 61–76; PULSE 56–77; RESP 14–16; TEMP 36.4–36.8; O2SAT 92–100; BMI 25.7
--- NOTE | 2018-04-28 | FALS_PTH ---
PATIENT: CAMERON YI LOC: [facility] [place] [facility] [place][id number] AGE/SX: 22/ ROOM: RE04/28/[address]: Dr. Adilene Cohn MD : [id number] BED: DIS: 04/28/2018 SPEC #: [id number] RECD: 04/28/18 12:24 STATUS: GOMEZ REArnol #: [id number] SHAWANDA: 04/28/18 00:[address]: Adilene Cohn DEPT: SURGICAL PATHOLOGY RECD BY: Devin Kim ENTERED: 04/28/18 12:25 SP TYPE: FALL TUBES OTHR DR: Dr. Ran Johnson, DO Tissues: Fallopian tube Procedures: Surgery Specimen Level II HEADER OPERATION: Laparoscopic salpingectomy PRE-OP DIAGNOSIS: Sterilization request TISSUE SUBMITTED: Bilateral fallopian tubes MICROSCOPIC DIAGNOSIS Bilateral fallopian tubes, salpingectomy: Bilateral fallopian tubes including fimbrial ends, no pathologic diagnosis. SJ:dylan 04/29/18 MICROSCOPIC DESCRIPTION Slides are reviewed. GROSS DESCRIPTION Received is one container labeled with the patient's name and designated bilateral fallopian tubes. The specimen consists of bilateral fallopian tubes including fimbrial ends each measuring 6 cm in length and 0.6 cm in diameter. The fallopian tubes are not identified as right or left. Sections do not reveal any mass lesion. Powder Coat Painter sections are submitted in two cassettes with each cassette containing one fallopian tube. / KAYLIN:dylan 04/28/18 TC:4 [facility]: [id number] x2
[2018-04-28 06:04] LABS: Internal QC Validated? YES +Cl - CLEAR BKGD; Pregnancy, Urine Negative Negative
[2018-04-28] MEDS: Acetaminophen 500 MG Tablet 1000 MG PO (06:14)
[2018-04-28] MEDS: Celecoxib 200 MG Capsule 400 MG PO (06:15)
[2018-04-28 06:55] LABS: Hematocrit 37.1 % (37-47); Mean Corp Hgb Conc 32.3 g/gl (32-36); Mean Corpuscular Hgb 28.2 pg (27.0-32.0); Mean Corpuscular Volume 87.3 fL (81-99); Mean Platelet Vol. 9.6 fl (6.2-12.0); Platelet Count 378 K/mm3 (150-450); RBC Distribution Width CV 12.8 % (11.6-14.6); Red Blood Count 4.25 M/mm3 (4.2-5.4)
[2018-04-28 07:00] LABS: Scan Indicated on CBC? Y/N NO
--- NOTE | 2018-04-28 07:44 | DCINST_ITS ---
Discharge Diet: No Restrictions - Increase fluid intake for the next 48 hours. Discharge Activity: Return to Normal Activity, May Drive - when you are no longer taking pain/narcotic meds., May Shower, May Take a Tub Bath - in 7 days Additional Activity Instructions:: Ambulate often the next week after surgery. Nothing in the vagina for 5 days. Call your doctor if your incision/area has: Continuous Slow Oozing, Sudden Increased Bleeding, Increased Pain/ Swelling, Increased Redness, Foul Smelling Discharge Call your doctor if you observe: Fever of 101 or Higher Cleanse incision/area with: Soap & Water, - - Your incisions have skin glue they can get wet Allergies/Adverse Reactions: Allergies latex Allergy (Verified 04/21/18 13:03) Rash Medications to take at Discharge Albuterol Inhaler [Ventolin Hfa] 1 - 2 puff INHALATION Q4H PRN PRN 06/08/17 Acetaminophen [Tylenol] 650 mg PO Q8H PRN 09/28/17 Primary Care Physician: Ran Johnson [Primary Care Provider] - Test Results: Test results from this visit will be discussed in further detail at your follow- up appointment, if applicable. Please Follow Up With: Adilene Cohn MD - [phone] When: My office in 2-4 weeks as needed
[2018-04-28] MEDS: Bupivacaine Mpf 0.5% 30 ML VIAL (07:53)
--- NOTE | 2018-04-28 08:06 | PCM.OPRPT ---
Report of Operation Date of Procedure: 04/28/18 Pre-Operative Diagnosis: Sterilization request Post-Operative Diagnosis: Sterilization request Surgery/Procedure Performed:: Laparoscopic bilateral salpingectomy Description of Surgical Findings:: Normal-appearing uterus tubes and ovaries. Unremarkable peritoneal cavity pot room supervisor: Reynaldo BURGER3 Type of Anesthesia:: General Anesthesiologist: Zeny Colin Special Medications: none Specimen's removed: Bilateral fallopian tubes Drains: None Estimated Blood Loss (mL): 10 cc Fluids Replaced: 1000 cc Description of Procedure: The patient was taken to the operating room where she was prepped and draped in the dorsolithotomy position. A weighted speculum was placed in the vagina and the anterior lip of the cervix was grasped with a tenaculum. The Daniella uterine manipulator was placed and the remainder of the instruments were removed from the vagina. Attention was turned to the abdomen. All port sites were infiltrated with 0.5% Marcaine before skin incisions were made. A 5 mm intraumbilical incision was made. The anterior abdominal wall was tented up with 2 towel clamps while a 5 mm blade less trocar and sleeve were directly inserted. Intraperitoneal placement was confirmed with the laparoscope. The pneumoperitoneum was created and the underlying abdominal contents were intact. The patient was placed in Trendelenburg. Right and left lower quadrant ports were placed under direct visualization lateral to the inferior epigastric vessels. The bowel was swept away and the above findings were noted. The LigaSure device was used to clamp seal and transect the antimesenteric portions of the right tube to the cornual insertion of the uterus. The tube was amputated from the uterus and the pedicles were all confirmed to be hemostatic. The same procedure was performed on the contralateral side. The specimens were brought out through a 5 mm port. The pedicles were again examined and found to be hemostatic. The lateral ports were removed under direct visualization and no active bleeding was noted. The pneumoperitoneum was released. The skin incisions were closed with Monocryl suture in a subcuticular fashion and skin glue. The vaginal instruments were removed and the vaginal sweep was completed by me. The procedure was performed by me with assistance. All sponge and needle counts were correct and the patient was taken to the recovery room in stable condition. Grafts/Implants Used: None - Complications None - Admit VTE Documentation VTE Present on Admission: No VTE Mechan Device Prophylaxis: SCD's VTE Pharm Prophylaxis ordered?: No Reason prophylaxis not ordered:: Procedure Not Indicated
--- NOTE | 2018-04-28 12:30 | SUR.PHASEII ---
1145 pt returned to [facility] d/t once she left hospital she began bleeding. Approx 5x5 area[address] Cohn called . She was in another case. Ask AC to ask Dr Ayoub to check on pt. Dr Ayoub applied steri strips and pressure dressing with folded 4x4 and medipore tape. Gave patient instructions on when to call , (exc bleeding, swelling , pain). Pt and suff other stated understanding. pt sent [id number].
== END 2018-04-28 10:40 | disposition home or self-care (01) ==
LOC: SDC 05:31 → AC 05:33
PROVIDERS: Family Provider Family Medicine; PCP Family Medicine; Visit Provider Obstetrics & Gynecology
PROC: (CPT 58661; principal; 2018-04-28 07:15)
DX: Z30.2 Encounter for sterilization (principal); Z87.891 Personal history of nicotine dependence; J45.909 Unspecified asthma, uncomplicated; F41.9 Anxiety disorder, unspecified
CPT/HCPCS: 00840; 58661; 81025; 85027; 88302; J7120; J2405

== ENCOUNTER 2018-06-15 15:40 | Emergency (ER) | payer MEDICAID, SELFPAY ==
[2018-06-15 15:42] VITALS: BP 103/71; PULSE 81; PULSE 85; RESP 14; RESP 18; TEMP 36.6; O2SAT 100; O2SAT 98; BMI 25.5
--- NOTE | 2018-06-15 15:51 | RAD_ITS ---
STUDY: X-RAY CHEST REASON FOR EXAM: Female, 22 years old. Left-sided chest pain TECHNIQUE: PA and lateral views of the chest. COMPARISON: Previous study of 06/08/2017 FINDINGS: solderer dipper leads are present. The lungs are clear and expanded. There is no demonstrated pleural abnormality. Normal size heart. Normal mediastinum and jani. Normal visualized pulmonary arteries. Normal visualized aortic arch and descending thoracic aorta. Normal visualized thoracic spine. Normal visualized ribs, clavicles, and shoulders. There is no demonstrated abnormality of the visualized soft tissue structures of the upper abdomen. RAD/Chest PA and Lateral IMPRESSION: Normal x-ray examination of the chest. Electronically Signed: Saud Pandey MD at 16:44 EST , Service support ,
--- NOTE | 2018-06-15 15:51 | EKG12_ITS ---
Test Reason : Blood Pressure : / mmHG Vent. Rate : 072 BPM Atrial Rate : 072 BPM P-R Int : 142 ms QRS Dur : 092 ms QT Int : 398 ms P-R-T Axes : 024 036 034 degrees QTc Int : 435 ms Normal sinus rhythm Normal ECG Confirmed by PEÑA POWELL MD ([id number]), image editor ELEANOR BURRELL ([id number]) on 06/16/2018 3:46:40 PM Referred By: EDA Confirmed By:PEÑA POWELL MD
[2018-06-15 16:13] LABS: Absolute Neutrophil Count 3.3 X10^3/uL (2.0-7.7); Basophil# 0.02 X10^3/uL; Basophil% 0.4 % (0-1); Eosinophil# 0.12 X10^3/uL; Eosinophils% 2.1 % (0-5); Hematocrit 34.7 % (37-47); Hemoglobin 11.1 g/dl (12.0-15.0); Lymphocyte % 33.6 % (19-41); Mean Corpuscular Hgb 27.8 pg (27.0-32.0); Mean Corpuscular Volume 86.8 fL (81-99); Mean Platelet Vol. 9.5 fl (6.2-12.0); Monocyte# 0.34 X10^3/uL; Neutrophil # 3.26 X10^3/uL (2.7-7.7); Neutrophil % 57.7 % (47-70); Platelet Count 267 K/mm3 (150-450); RBC Distribution Width CV 13.6 % (11.6-14.6); RBC Distribution Width SD 43.1 fl (35.1-43.9); White Blood Count 5.7 K/mm3 (4.4-11.0)
[2018-06-15 16:20] LABS: POSITIVE COUNT NO; POSITIVE DIFFERENTIAL NO; POSITIVE MORPHOLOGY NO
[2018-06-15 16:33] LABS: D-Dimer Quantitative (DVT/PE) 0.34 FEU/ug/m (0.27-0.49)
[2018-06-15 16:47] LABS: Anion Gap 8 (5-15); BUN 15 mg/dL (7-18); BUN/Creat Ratio 22.8 RATIO (10-20); Calcium,Total 8.4 mg/dL (8.5-10.1); Chloride 110 mmol/L (98-107); Creatinine, Serum 0.66 mg/dL (0.55-1.02); EST Glomerular Filtration Rate 119 mL/min (>60); Est Glom Filt Rate - Afr Amer 144 mL/min (>60); Estimated Creatinine Clearance 120.31 ml/min; Glucose 72 mg/dL (74-106); Potassium 4.1 mmol/L (3.5-5.1); Sodium Level 142 mmol/L (136-145)
[2018-06-15 17:11] LABS: Pregnancy, Serum, hCG Quali. NEGATIVE Negative (0-9 Nonpreg)
--- NOTE | 2018-06-15 17:24 | ED.VISSUMM ---
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 To her knowledge the event monitor was normal. He attributed her cyclic to . She states she was walking into work after a break. She developed midsternal chest discomfort with mild shortness of breath. The next thing she remembers is waking up on the floor. Reportedly, there was no postictal state. There is no incontinence of urine or stool. She did complain of headache and localizes to the right restorationism region. She denies double vision, blurred vision or loss of vision. She denies trouble with speech or swallowing. She denies history of PE or DVT. She had a tubal ligation in April [address] Adilene Cohn. She denies abdominal pain, nausea, vomiting or diarrhea. She denies black or maroon stool. She denies urologic symptoms. She has been bleeding heavily for the past week. She denies symptoms of . She denies paresthesia, anesthesia or motor weakness. Physical Examination: Vital signs noted and normal. Head is atraumatic normocephalic. Pupils are equal round reactive. Extraocular muscles are intact. Funduscopic exam reveals normal cup-to-disc ratio with no papilledema. TMs are pearly white with landmarks noted. Nares patent with no drainage. Posterior pharynx without erythema or exudate. Uvula is midline. There is no dysphonia or dysphasia. Trachea is midline. There is no stridor with auscultation of the neck. There is no C-spine tenderness. There is no findings of basal skull fracture. Heart is regular without murmur, gallop or rub. S1 and S2 are normal. Lungs are clear to auscultation with good movement of air bilaterally. Abdomen is soft nontender bowel sounds are present normal. There is no CVA tenderness. There is no evidence of trauma to the torso or extremities. GCS is 15. Patient is alert and oriented ?3. Motor is 5/5. Sensation is intact. DTRs are symmetric without clonus or Babinski. Cranial nerves II through XII are intact. Finger to nose to finger was performed adequately. Test Results: EKG reveals a sinus rhythm rate of 72 with normal ME interval, QRS duration and QT interval. [place] is normal. There is no evidence of WPW or any preexcitation syndrome. Chest x-ray interpreted by me revealed no pneumothorax, hemothorax or fractured ribs. Chronic silhouette normal. Mediastinum normal. Lung parenchyma normal. Osseous structures are normal. H&H 7.1 and 34.7. CO2 110. D-dimer 0.34. Emergency Department Course and Treatment: With history of chest pain shortness of breath and syncope need to evaluate for pulmonary embolus especially since she had surgery with in the last 6 weeks. EKG was obtained to determine if there is any dysrhythmia or ischemic changes. She has had prior workup which was negative except for patent foramen ovale on echo. Treatment Plan: Discharge to home with follow-up with PCP Disposition: Discharged home in stable condition Impression: 1. Vasovagal syncopal episode 2. Chest pain with shortness of breath unknown etiology 3. Unspecified anemia This note was generated with [employer] dictation software. It may contain incorrect words, spelling, and punctuation that were not noted in review of the chart prior to signing ED Disposition - Plan for ED Patient: Disposition: Home or Assisted Living Chief Complaint: Syncope Instructions: ED Syncope Vasovagal Referrals: Ran Johnson [Primary Care Provider] - 5-7 Days
--- NOTE | 2018-06-15 17:29 | ED.DCSUM_ITS ---
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 To her knowledge the event monitor was normal. He attributed her cyclic to . She states she was walking into work after a break. She developed midsternal chest discomfort with mild shortness of breath. The next thing she remembers is waking up on the floor. Reportedly, there was no postictal state. There is no incontinence of urine or stool. She did complain of headache and localizes to the right yarsani region. She denies double vision, blurred vision or loss of vision. She denies trouble with speech or swallowing. She denies history of PE or DVT. She had a tubal ligation in April [address] Adilene Cohn. She denies abdominal pain, nausea, vomiting or diarrhea. She denies black or maroon stool. She denies urologic symptoms. She has been bleeding heavily for the past week. She denies symptoms of . She denies paresthesia, anesthesia or motor weakness. Physical Examination: Vital signs noted and normal. Head is atraumatic normocephalic. Pupils are equal round reactive. Extraocular muscles are intact. Funduscopic exam reveals normal cup-to-disc ratio with no papilledema. TMs are pearly white with landmarks noted. Nares patent with no drainage. Posterior pharynx without erythema or exudate. Uvula is midline. There is no dysphonia or dysphasia. Trachea is midline. There is no stridor with auscultation of the neck. There is no C-spine tenderness. There is no findings of basal skull fracture. Heart is regular without murmur, gallop or rub. S1 and S2 are normal. Lungs are clear to auscultation with good movement of air bilaterally. Abdomen is soft nontender bowel sounds are present normal. There is no CVA tenderness. There is no evidence of trauma to the torso or extremities. GCS is 15. Patient is alert and oriented ?3. Motor is 5/5. Sens ation is intact. DTRs are symmetric without clonus or Babinski. Cranial nerves II through XII are intact. Finger to nose to finger was performed adequately. Test Results: EKG reveals a sinus rhythm rate of 72 with normal [place] interval, QRS duration and QT interval. [place] is normal. There is no evidence of WPW or any preexcitation syndrome. Chest x-ray interpreted by me revealed no pneumothorax, hemothorax or fractured ribs. Chronic silhouette normal. Mediastinum normal. Lung parenchyma normal. Osseous structures are normal. H&H 7.1 and 34.7. CO2 110. D-dimer 0.34. Emergency Department Course and Treatment: With history of chest pain shortness of breath and syncope need to evaluate for pulmonary embolus especially since she had surgery with in the last 6 weeks. EKG was obtained to determine if there is any dysrhythmia or ischemic changes. She has had prior workup which was negative except for patent foramen ovale on echo. Treatment Plan: Discharge to home with follow-up with PCP Disposition: Discharged home in stable condition Impression: 1. Vasovagal syncopal episode 2. Chest pain with shortness of breath unknown etiology 3. Unspecified anemia This note was generated with [employer] dictation software. It may contain incorrect words, spelling, and punctuation that were not noted in review of the chart prior to signing ED Disposition - Plan for ED Patient: Disposition: Home or Assisted Living Chief Complaint: Syncope Instructions: ED Syncope Vasovagal Referrals: Ran Johnson [Primary Care Provider] - 5-7 Days
[2018-06-15 17:41] VITALS: BP 102/70; PULSE 78; RESP 19; O2SAT 98
== END 2018-06-15 18:02 | disposition home or self-care (01) ==
PROVIDERS: Emergency Provider Emergency Medicine; Family Provider Family Medicine; PCP Family Medicine
DX: R55 Syncope and collapse (principal); R07.9 Chest pain, unspecified; R06.00 Dyspnea, unspecified; D64.9 Anemia, unspecified; Q21.1 Atrial septal defect; Z72.0 Tobacco use
CPT/HCPCS: 71046; 80048; 84703; 85025; 85379; 93005; 99283; J7030

== ENCOUNTER 2018-06-17 12:37 | Emergency (ER) | payer MEDICAID, SELFPAY ==
[2018-06-17 12:39] VITALS: BP 105/72; PULSE 60; RESP 17; TEMP 37; O2SAT 100; BMI 25.6
--- NOTE | 2018-06-17 13:40 | EKG12_ITS ---
Test Reason : CP Blood Pressure : / mmHG Vent. Rate : 072 BPM Atrial Rate : 072 BPM P-R Int : 138 ms QRS Dur : 080 ms QT Int : 386 ms P-R-T Axes : 039 040 040 degrees QTc Int : 422 ms Normal sinus rhythm Normal ECG Confirmed by SHERRY LOOMIS, PEÑA ([id number]), editor trade journal ELEANOR BURRELL ([id number]) on 06/21/2018 3:38:40 PM Referred By: EDPHYS Confirmed By:PEÑA POWELL MD
--- NOTE | 2018-06-17 13:45 | CT_ITS ---
STUDY: CT BRAIN WITHOUT CONTRAST REASON FOR EXAM: Female, 22 years old. Intermittent syncopal episodes. RADIATION DOSAGE (If Supplied By Facility): CTDIvol = ( 44.99 ) mGy, DLP = ( 711.75 ) mGycm TECHNIQUE: Transaxial CT imaging of the brain was performed without administration of intravenous contrast material. Individualized dose optimization techniques were used for this CT. COMPARISON: None. FINDINGS: Normal soft tissue structures. Normal calvarium. Normal size ventricles and extra-axial spaces for the patient's age. Normal white matter tracts of the cerebral hemispheres. Normal basal ganglia and thalami. Normal brainstem. Normal cerebellum. There is no intracranial hemorrhage. There are no findings of an acute ischemic infarction. Normal visualized paranasal sinuses. CT/Brain/Head without Contrast IMPRESSION: Normal unenhanced CT scan of the brain. Electronically Signed: Garett Ba MD at 15:12 EST Tel [phone], Service support ,
--- NOTE | 2018-06-17 15:07 | ED.VISSUMM ---
- ER Visit Summary Date of Service: 06/17/18 Chief Complaint: Headache status post syncopal episode History of Present Illness: The patient is a 22 F who was seen on June 15 for syncopal episode and chest pain. Her workup at that time was unremarkable. I evaluated her at that time for the syncope and chest pain. She has history of syncope and underwent workup with no determine etiology. She has not had a table tilt test. She states today she was brushing her teeth when she passed out. She complains of headache. She does have an abrasion in the proximity of the right brow. She denies double vision, blurred vision loss of vision. Has ringing or ears, ear pain or decreased hearing. She denies neck pain. She reports her right upper extremity feels numb. She reports the chest pain has not gone away since Wednesday's visit. She denies black or maroon stool. She denies vomiting. She denies urologic symptoms. She denies bruising easily. There is no history of PE or DVT. Physical Examination: Vital signs noted. HEENT exam is remarkable for abrasion right side of the forehead/right brow. Pupils equal round reactive paradoxic muscle intact. Sclerae anicteric. There is no subconjunctival hemorrhage. There is no hemotympanum. There is no CSF otorrhea or rhinorrhea. There is no TMJ tenderness. There is no evidence of malocclusion. There is no pain the patient cervical spine. Trachea is midline. There is no carotid bruit. Heart is regular without murmur, gallop or rub. S1 and S2 are normal. Lungs are clear to auscultation with good movement of air bilaterally. Abdomen is soft nontender bowel sounds are present normal. Patient is alert and oriented ?3. Motor is 5 over 5. Sensory is intact. DTRs are symmetric with no clonus or Babinski sign. Cranial 2 through 12 are intact. Cerebellar testing is normal. GCS is 15. Test Results: H&H is 11.1 and 34.1 which is unchanged from Wednesday. Troponin is less than 0.015. EKG revealed a sinus rhythm rate of 72 with a normal [place] interval, QRS duration and QT interval. [place] is normal. No ectopy noted on monitor. CT of the head reviewed by me interpreted by radiologist as negative. Emergency Department Course and Treatment: Because she complains of headache after trauma and had single episode will obtain CT to rule out intracranial bleed. Because she has had chest pain for 48 hours will obtain a troponin and appropriate blood work. CBC was obtained to determine if there is evidence of anemia i.e. acute drop in hemoglobin. Orthostatic vital signs were obtained. Patient is PERC negative. Furthermore, d-dimer on Wednesday was negative. Treatment Plan: Keep appointment with PCP scheduled for Wednesday Disposition: Discharged to home Impression: 1. Syncopal episode uncertain etiology 2. Closed head injury initial encounter 3. Forehead abrasion secondary to fall initial encounter 4. Chest pain unknown etiology 5. History of PFO This note was generated with [employer] dictation software. It may contain incorrect words, spelling, and punctuation that were not noted in review of the chart prior to signing ED Disposition - Plan for ED Patient: Disposition: Home or Assisted Living Chief Complaint: Syncope Instructions: ED Fainting Unkn Cause, ED Chest Pain NonCardiac, ED Abrasion, ED Head Injury Closed Referrals: Ran Johnson [Primary Care Provider] - Keep Elinor appointment
[2018-06-17 15:11] VITALS: BP 96/77; PULSE 71; RESP 16; O2SAT 99
--- NOTE | 2018-06-17 15:14 | ED.DCSUM_ITS ---
- ER Visit Summary Date of Service: 06/17/18 Chief Complaint: Headache status post syncopal episode History of Present Illness: The patient is a 22 F who was seen on June 15 for syncopal episode and chest pain. Her workup at that time was unremarkable. I evaluated her at that time for the syncope and chest pain. She has history of syncope and underwent workup with no determine etiology. She has not had a table tilt test. She states today she was brushing her teeth when she passed out. She complains of headache. She does have an abrasion in the proximity of the right brow. She denies double vision, blurred vision loss of vision. Has ringing or ears, ear pain or decreased hearing. She denies neck pain. She reports her right upper extremity feels numb. She reports the chest pain has not gone away since Wednesday's visit. She denies black or maroon stool. She denies vomiting. She denies urologic symptoms. She denies bruising easily. There is no history of PE or DVT. Physical Examination: Vital signs noted. HEENT exam is remarkable for abrasion right side of the forehead/right brow. Pupils equal round reactive paradoxic muscle intact. Sclerae anicteric. There is no subconjunctival hemorrhage. There is no hemotympanum. There is no CSF otorrhea or rhinorrhea. There is no TMJ tenderness. There is no evidence of malocclusion. There is no pain the patient cervical spine. Trachea is midline. There is no carotid bruit. Heart is regular without murmur, gallop or rub. S1 and S2 are normal. Lungs are clear to auscultation with good movement of air bilaterally. Abdomen is soft nontender bowel sounds are present normal. Patient is alert and oriented ?3. Motor is 5 over 5. Sensory is intact. DTRs are symmetric with no clonus or Babinski sign. Cranial 2 through 12 are intact. Cerebellar testing is normal. GCS is 15. Test Results: H&H is 11.1 and 34.1 which is unchanged from Wednesday. Troponin is less than 0.015. EKG revealed a sinus rhythm rate of 72 with a normal [place] interval, QRS duration and QT interval. [place] is normal. No ectopy noted on monitor. CT of the head reviewed by me interpreted by radiologist as negative. Emergency Department Course and Treatment: Because she complains of headache after trauma and had single episode will obtain CT to rule out intracranial bleed. Because she has had chest pain for 48 hours will obtain a troponin and appropriate blood work. CBC was obtained to determine if there is evidence of anemia i.e. acute drop in hemoglobin. Orthostatic vital signs were obtained. Patient is PERC negative. Furthermore, d-dimer on Wednesday was negative. Treatment Plan: Keep appointment with PCP scheduled for Wednesday Disposition: Discharged to home Impression: 1. Syncopal episode uncertain etiology 2. Closed head injury initial encounter 3. Forehead abrasion secondary to fall initial encounter 4. Chest pain unknown etiology 5. History of PFO This note was generated with [employer] dictation software. It may contain incorrect words, spelling, and punctuation that were not noted in review of the chart prior to signing ED Disposition - Plan for ED Patient: Disposition: Home or Assisted Living Chief Complaint: Syncope Instructions: ED Fainting Unkn Cause, ED Chest Pain NonCardiac, ED Abrasion, ED Head Injury Closed Referrals: Ran Johnson [Primary Care Provider] - Keep Elinor appointment
[2018-06-17 15:16] LABS: Hematocrit 34.1 % (37-47); Hemoglobin 11.1 g/dl (12.0-15.0); Mean Corp Hgb Conc 32.6 g/gl (32-36); Mean Corpuscular Hgb 28.4 pg (27.0-32.0); Mean Corpuscular Volume 87.2 fL (81-99); Mean Platelet Vol. 9.6 fl (6.2-12.0); Platelet Count 288 K/mm3 (150-450); RBC Distribution Width CV 13.3 % (11.6-14.6); RBC Distribution Width SD 41.6 fl (35.1-43.9); Red Blood Count 3.91 M/mm3 (4.2-5.4)
[2018-06-17 15:19] LABS: Scan Indicated on CBC? Y/N NO
[2018-06-17 15:58] VITALS: BP 101/69; BP 102/72; BP 112/73; PULSE 69; PULSE 70; PULSE 82
== END 2018-06-17 16:00 | disposition home or self-care (01) ==
PROVIDERS: Emergency Provider Emergency Medicine; Family Provider Family Medicine; PCP Family Medicine
DX: R55 Syncope and collapse (principal); S00.81XA Abrasion of other part of head, initial encounter; R07.9 Chest pain, unspecified; Q21.1 Atrial septal defect; W19.XXXA Unspecified fall, initial encounter; Y93.9 Activity, unspecified; Y92.9 Unspecified place or not applicable; Z72.0 Tobacco use
CPT/HCPCS: 70450; 84484; 85027; 93005; 99285; A4216

== ENCOUNTER → 2018-10-10 13:12 | Outpatient (CLI) | payer MEDICAID, SELFPAY ==
[2018-10-10 14:15] LABS: AST(SGOT) 15 U/L (15-37); Alanine Aminotransfer ALT/SGPT 20 U/L (13-56); Albumin, Serum 3.8 g/dL (3.2-5.0); Alkaline Phosphatase 65 U/L (45-117); Anion Gap 7 (5-15); BUN 12 mg/dL (7-18); BUN/Creat Ratio 17.9 RATIO (10-20); Calcium,Total 8.3 mg/dL (8.5-10.1); Chloride 114 mmol/L (98-107); Creatinine, Serum 0.67 mg/dL (0.55-1.02); EST Glomerular Filtration Rate 116 mL/min (>60); Est Glom Filt Rate - Afr Amer 141 mL/min (>60); Globulin 3.7 g/dL (2.2-4.2); Glucose 79 mg/dL (74-106); Potassium 3.8 mmol/L (3.5-5.1); Protein, Total 7.5 g/dL (6.4-8.2); Sodium Level 144 mmol/L (136-145)
== END ==
PROVIDERS: Family Provider Family Medicine; PCP Family Medicine
DX: R55 Syncope and collapse (principal)
CPT/HCPCS: 36415; 80053

== ENCOUNTER 2019-10-19 11:07 | Emergency (ER) | payer MEDICAID, SELFPAY ==
[2019-10-19 11:10] VITALS: BP 120/71; PULSE 76; PULSE 78; RESP 16; RESP 18; TEMP 36.6; O2SAT 100; O2SAT 99; BMI 25.0
--- NOTE | 2019-10-19 11:27 | CT_ITS ---
STUDY: CT ABDOMEN AND PELVIS WITH CONTRAST REASON FOR EXAM: Female, 23 years old. RLQ PAIN X 3 WKS, TUBAL LIGATION, CHOLECYSTECTOMY RADIATION DOSAGE (If Supplied By Facility): CTDIvol = ( 10.98 ) mGy, DLP = ( 434.13 ) mGycm TECHNIQUE: Transaxial images were obtained from the dome of the diaphragm to the symphysis pubis without oral contrast. Oral and amp;amp; IV Gastrografin and amp;amp; 100mL Isovue-300 was administered. Sagittal and coronal images were reconstructed. Individualized dose optimization techniques were used for this CT. COMPARISON: Comparison is made with prior study dated April 14, 2017. FINDINGS: The visualized lung bases are unremarkable. The visualized portions of the heart are within normal limits. Normal liver. There are surgical clips in the gallbladder fossa consistent with a prior cholecystectomy. Normal spleen. Normal pancreas. Normal bilateral adrenal glands. Normal right kidney. Normal left kidney. Normal visualized stomach. Normal small intestine. Normal colon. The appendix is visualized and appears normal. Normal abdominal aorta. Normal inferior vena cava. Normal retroperitoneum. Normal urinary bladder. Follicles are seen in both ovaries. The uterus is retroverted. Normal abdominal wall. Normal osseous structures. CT/Abdomen/Pelvis WITH Contrast IMPRESSION: Normal enhanced CT of the abdomen and pelvis. Electronically Signed: Garett Ba, at 13:35 EDT , Service support ,
--- NOTE | 2019-10-19 11:29 | ED.DCSUM_ITS ---
History of Present Illness Chief Complaint: Abd Pain Informant: Patient - Abdominal Pain/Flank Pain Onset: Weeks Context: Gradual Onset Timing: Continuous, Waxes and wanes Quality: Sharp, Stabbing - Nausea/Vomiting/Emesis GI Symptom: Nausea - Diarrhea/Melena/Hematochezia GI Symptom: Negative for: Diarrhea, Melena, Hematochezia Associated Symptoms: Negative for: Dysuria, Frequency, Hematuria, Urgency LMP: last week Narrative: Patient is a 23-year-old female with history of pancreatitis presenting with 3 weeks of worsening right lower quadrant abdominal pain. She had been taking Midol, Toradol and ibuprofen at home with no significant relief of her symptoms. She saw her javascript programmer today who was concerned about appendicitis and sent her to the emergency room for further evaluation. Patient has some nausea but states is secondary to her pain. States the pain is been constant for the past few weeks but does wax and wane in intensity. No significant aggravating or alleviating factors. No urinary symptoms. The pain does radiate around to her back. No fever but positive chills. No other complaints at this time. Past Medical History - Allergies and Home Meds Allergies/Adverse Reactions: Allergies latex Allergy (Verified 10/19/19 11:08) Rash Primary Care Physician: Ran Johnson [Primary Care Provider] - Past Medical History: - - History of pancreatitis Surgical History: - - Bilateral tubal ligation, ex lap with duodenal cyst removal Lives: With Family Smoking Status: Current every day smoker Review of Systems General: Reports: Chills, Malaise. Denies: Fever, Sweats Eyes: Denies: Visual changes - bilaterally, Diplopia ENT: Denies: Rhinorrhea, Sore throat Cardiovascular: Denies: Chest pain, Palpitations Respiratory: Denies: Dyspnea, Cough, Dyspnea on exertion Gastrointestinal: Reports: Abdominal pain, Nausea. Denies: Vomiting, Diarrhea, Melena, Hematochezia Genitourinary: Denies: Dysuria, Hematuria, Frequency Musculoskeletal: Denies: Back pain, Extremity Pain Skin: Denies: Rash, Wounds Neurological: Denies: Headache, Weakness, Numbness Physical Exam Vital Signs/Narrative: Vital Signs Temp Pulse Resp BP Pulse Ox 10/19/19 11:10 97.9 F 76 18 120/71 100 Inital Vital Signs reviewed: Yes General: Well nourished, Well developed, No Acute Distress Head: Normocephalic, Atraumatic Eyes: Perrl, EOMI ENT: Moist mucous membranes, No rhinorrhea Neck: Supple, Nontender Cardiovascular: Regular rate, Regular rhythm, No murmurs Respiratory: No distress, CTA bilaterally, Chest nontender Abdomen: Soft, Nondistended, Normal bowel sounds, Tender - RLQ, Guarding, Psoas sign, Rovsig's sign, - - Negative heel strike . Negative for: Pulsatile mass Back: Nontender, Normal Inspection. Negative for: CVA tenderness Extremities: Nontender, No edema Skin: Normal color, No rash Neurological: Alert, Oriented x3, Cranial nerves II-XII grossly intact, Normal Strength, Normal Sensation Psychological: Normal affect, Normal Mood Diagnostic/Tx/Re-eval Clinical Impression(s) from Imaging Studies Abdomen/Pelvis CT 10/19/19 11:27 IMPRESSION: Normal enhanced CT of the abdomen and pelvis. Electronically Signed: Garett Ba, at 13:35 EDT , Service support , Pelvis Ultrasound 10/19/19 14:11 IMPRESSION: Normal female pelvis. Electronically Signed: Garett Ba, at 15:50 EDT , Service support , Transvaginal US 10/19/19 14:11 IMPRESSION: Normal female pelvis. Electronically Signed: Garett Ba at 15:50 EDT , Service support , Laboratory Data 10/19/19 10/19/19 10/19/19 11:48 11:48 12:40 WBC 5.8 RBC 4.61 Hgb 11.1 L Hct 37.2 MCV 80.7 L MCH 24.1 L MCHC 29.8 L RDW Std Deviation 44.8 H RDW Coeff of Seth 15.5 H Plt Count 352 MPV 9.5 Immature Gran % (Auto) 0.200 Neut % (Auto) 49.3 Lymph % (Auto) 41.7 H [place] % (Auto) 6.0 Eos % (Auto) 1.9 Baso % (Auto) 0.9 Absolute Neuts (auto) 2.9 Absolute Lymphs (auto) 2.42 Nucleated RBC % 0 Sodium 140 Potassium 3.7 Chloride 107 Carbon Dioxide 29.0 Anion Gap 4 L BUN 8 Creatinine 0.85 Estim Creat Clear Calc 92.62 Est GFR (MDRD) Af Amer 106 Est GFR (MDRD) Non-Af 88 BUN/Creatinine Ratio 9.5 L Glucose 83 Lactic Acid Calcium 9.3 Total Bilirubin 0.20 AST 12 L ALT 18 Alkaline Phosphatase 74 Total Protein 9.0 H Albumin 4.4 Globulin 4.6 H Albumin/Globulin Ratio 1.0 Lipase 259 Urine Color Straw Urine Clarity Clear Urine pH 8.0 Ur Specific Almo 1.010 Urine Protein Negative Urine Glucose (UA) Normal Urine Ketones Negative Urine Occult Blood Negative Urine Nitrite Negative Urine Bilirubin Negative Urine Urobilinogen Normal Ur Leukocyte Esterase Negative Urine RBC 0 SEEN Urine WBC 0 SEEN Ur Squamous Epith Cells 0-5 SEEN Urine Bacteria RARE Urine Mucus 0 SEEN 10/19/19 16:15 WBC RBC Hgb Hct MCV MCH MCHC RDW Std Deviation RDW Coeff of Seth Plt Count MPV Immature Gran % (Auto) Neut % (Auto) Lymph % (Auto) [place] % (Auto) Eos % (Auto) Baso % (Auto) Absolute Neuts (auto) Absolute Lymphs (auto) Nucleated RBC % Sodium Potassium Chloride Carbon Dioxide Anion Gap BUN Creatinine Estim Creat Clear Calc Est GFR (MDRD) Af Amer Est GFR (MDRD) Non-Af BUN/Creatinine Ratio Glucose Lactic Acid 0.8 Calcium Total Bilirubin AST ALT Alkaline Phosphatase Total Protein Albumin Globulin Albumin/Globulin Ratio Lipase Urine Color Urine Clarity Urine pH Ur Specific Almo Urine Protein Urine Glucose (UA) Urine Ketones Urine Occult Blood Urine Nitrite Urine Bilirubin Urine Urobilinogen Ur Leukocyte Esterase Urine RBC Urine WBC Ur Squamous Epith Cells Urine Bacteria Urine Mucus - Medical Decision Making Patient is evaluated for 3 weeks of worsening right lower quadrant pain. Patient feels very uncomfortable and is significant tenderness to palpation. Her vital signs are normal. Patient has essentially normal labs including CBC, CMP, lipase and lactate. Urinalysis is negative for infection. Patient had a tubal ligation is not concerned for . CT the abdomen pelvis is negative for any acute process including acute appendicitis. A pelvic ultrasound is not obtained as patient is having continued right lower quadrant/pelvic pain. This is negative for any free fluid or any signs of cause of her pain. Patient received multiple pain medications including 0.5 mg of Dilaudid x2 and 50 mcg of fentanyl. She receives Zofran twice as well as Phenergan. On reevaluation patient is still having a lot of pain but does seem to be improved. I did discuss with gynecology engineering production worker because she seems to have almost pain out of proportion to her exam. I do not suspect mesenteric ischemia as she has a normal lactate. Gynecology recommended surgical consult as they do not feel that it is a primary gynecologic process given her negative work-up. Discussed with patient option of staying for surgical consult. She states at this point she would just like to go home and follow-up outpatient. She is feeling more comfortable and is agreeable with this plan. Patient is given surgery on-call for outpatient follow-up. She is encouraged also follow-up with her javascript programmer as well as her PCP. She is given a prescription of Phenergan for her nausea. She is counseled that she cannot receive a prescription for any opioid pain medications I do not have a clear cause of her symptoms I do not feel comfortable giving her this prescription. She is given a dose of [place] prior to discharge however. ED Disposition - Plan for ED Patient: Disposition: Home or Assisted Living Diagnosis: Abdominal pain of unknown cause Instructions: ABDOMINAL PAIN, Unknown Cause, (Female) Prescriptions: proMETHazine suppository [Phenergan] 25 mg RECTAL Q6H PRN PRN #6 suppos. PRN Reason: Nausea Transmission Status: Pending to [id number] proMETHazine tablet [Phenergan] 25 mg PO Q6H PRN PRN #10 tab PRN Reason: Nausea Transmission Status: Pending to [id number] Referrals: Ran Johnson [Primary Care Provider] - Jose Lozoya MD [STAFF PHYSICIAN] - Additional Instructions: The exact cause of your pain is not clear. Please follow-up with general surgery as well as your javascript programmer for further evaluation of this pain. Continue to take Tylenol and ibuprofen as needed for pain. Please also follow-u p with your primary care doctor.
[2019-10-19] MEDS: Ondansetron 4 MG/2 ML Vial IV ×2 (11:54→14:25)
[2019-10-19] MEDS: HYDROmorphone 1 MG/ML Syringe 0.5 MG IV (11:54)
[2019-10-19] MEDS: 0.9% Normal Saline 1,000 ML 1000 ML IV (11:55)
[2019-10-19 12:00] LABS: Absolute Lymphocyte Count 2.42 X10^3/uL (0.83-4.51); Absolute Neutrophil Count 2.9 X10^3/uL (2.0-7.7); Basophil# 0.05 X10^3/uL; Basophil% 0.9 % (0-1); Eosinophil# 0.11 X10^3/uL; Eosinophils% 1.9 % (0-5); Hematocrit 37.2 % (37-47); Hemoglobin 11.1 g/dL (12.0-15.0); Lymphocyte # 2.42 X10^3/ul (4.0); Lymphocyte % 41.7 % (19-41); Mean Corp Hgb Conc 29.8 g/dL (32-36); Mean Corpuscular Hgb 24.1 pg (27.0-32.0); Mean Corpuscular Volume 80.7 fL (81-99); Mean Platelet Vol. 9.5 fl (6.2-12.0); Monocyte# 0.35 X10^3/uL; NRBC Flagged by Analyzer 0 % (0-5); Neutrophil # 2.86 X10^3/uL (2.7-7.7); Neutrophil % 49.3 % (47-70); Platelet Count 352 K/mm3 (150-450); RBC Distribution Width CV 15.5 % (11.6-14.6); RBC Distribution Width SD 44.8 fl (35.1-43.9); Red Blood Count 4.61 M/mm3 (4.2-5.4); White Blood Count 5.8 K/mm3 (4.4-11.0)
[2019-10-19 12:15] LABS: AST(SGOT) 12 U/L (15-37); Alanine Aminotransfer ALT/SGPT 18 U/L (13-56); Albumin, Serum 4.4 g/dL (3.2-5.0); Alkaline Phosphatase 74 U/L (45-117); Anion Gap 4 (5-15); BUN 8 mg/dL (7-18); BUN/Creat Ratio 9.5 RATIO (10-20); Calcium,Total 9.3 mg/dL (8.5-10.1); Chloride 107 mmol/L (98-107); Creatinine, Serum 0.85 mg/dL (0.55-1.02); EST Glomerular Filtration Rate 88 mL/min (>60); Est Glom Filt Rate - Afr Amer 106 mL/min (>60); Estimated Creatinine Clearance 92.62 ml/min; Globulin 4.6 g/dL (2.2-4.2); Glucose 83 mg/dL (74-106); Lipase 259 U/L (73-393); Potassium 3.7 mmol/L (3.5-5.1); Sodium Level 140 mmol/L (136-145)
[2019-10-19] MEDS: HYDROmorphone 0.5 MG/0.5 ML SYRINGE IV (12:43)
[2019-10-19 12:54] LABS: Mucous, Urine 0 SEEN /hpf (<or=2+); Red Blood Cells-Urine 0 SEEN /hpf (0-5); White Blood Cells 0 SEEN /hpf (0-5)
[2019-10-19 12:59] LABS: Color, Urine Straw (Yellow); Glucose, Dipstick Normal (Normal); Ketone-Dipstick Negative (Negative); Leukocyte Esterase-Dipstick Negative /ul (Negative); Nitrite-Dipstick Negative (Negative); Occult Blood-Urine Negative /ul (Negative); Protein-Dipstick Negative (Negative); Urine Bilirubin Dipstick Negative (Negative); Urine Clarity Clear (Clear); Urine Urobilinogen Normal (Normal)
[2019-10-19 13:11] LABS: Bacteria RARE /hpf (None Seen); Squamous Epithelial Cells - UA 0-5 SEEN /hpf (5-10)
--- NOTE | 2019-10-19 14:11 | US_ITS ---
STUDY: ULTRASOUND OF THE FEMALE PELVIS - COMPLETE REASON FOR EXAM: Female, 23 years old. RLQ PAIN 3 WEEKS LMP: October 09, 2019. TECHNIQUE: Transabdominal and Transvaginal TECHNICAL QUALITY: Adequate. COMPARISON: None. FINDINGS: The uterus is retroverted and is in a midline position. The uterus measures 8.1 cm x 5.8 cm x 4.5 cm. Normal uterine cervix. The endometrium measures 10.8 mm in thickness, and is heterogeneous (striated). There is no demonstrated endometrial mass. There is no demonstrated myometrial mass. I.U.D. - The patient does not have an I.U.D. The right ovary is visualized. The right ovary measures 4.3 cm x 2.3 cm x 1.7 cm. There is no right ovarian cyst or ovarian mass. There is no visualized right adnexal mass or complex lesion. There is normal arterial and normal venous vascularity. The left ovary is visualized. The left ovary measures 4.1 cm x 2.4 cm x 1.8 cm. There is no left ovarian cyst or ovarian mass. There is no visualized left adnexal mass or complex lesion. There is normal arterial and normal venous vascularity. There is no fluid in the cul-de-sac. The pre void volume of the bladder was 108 ml. Polycystic ovary disease: No. US/Transvaginal Non- IMPRESSION: Normal female pelvis. Electronically Signed: Garett Ba, at 15:50 EDT , Service support ,
--- NOTE | 2019-10-19 14:11 | US_ITS ---
STUDY: ULTRASOUND OF THE FEMALE PELVIS - COMPLETE REASON FOR EXAM: Female, 23 years old. RLQ PAIN 3 WEEKS LMP: October 09, 2019. TECHNIQUE: Transabdominal and Transvaginal TECHNICAL QUALITY: Adequate. COMPARISON: None. FINDINGS: The uterus is retroverted and is in a midline position. The uterus measures 8.1 cm x 5.8 cm x 4.5 cm. Normal uterine cervix. The endometrium measures 10.8 mm in thickness, and is heterogeneous (striated). There is no demonstrated endometrial mass. There is no demonstrated myometrial mass. I.U.D. - The patient does not have an I.U.D. The right ovary is visualized. The right ovary measures 4.3 cm x 2.3 cm x 1.7 cm. There is no right ovarian cyst or ovarian mass. There is no visualized right adnexal mass or complex lesion. There is normal arterial and normal venous vascularity. The left ovary is visualized. The left ovary measures 4.1 cm x 2.4 cm x 1.8 cm. There is no left ovarian cyst or ovarian mass. There is no visualized left adnexal mass or complex lesion. There is normal arterial and normal venous vascularity. There is no fluid in the cul-de-sac. The pre void volume of the bladder was 108 ml. Polycystic ovary disease: No. US/Pelvic (Non ) IMPRESSION: Normal female pelvis. Electronically Signed: Garett Ba, at 15:50 EDT , Service support ,
[2019-10-19 14:24] VITALS: BP 97/58; PULSE 71; RESP 18; O2SAT 99
[2019-10-19] MEDS: fentaNYL 100 MCG/2 ML Ampul 50 MCG IV (14:34)
[2019-10-19] MEDS: 0.9% Normal Saline 1,000 ML 999 ML IV (14:34)
[2019-10-19] MEDS: Ketorolac 15 MG/ML Vial IV (14:37)
[2019-10-19] MEDS: proMETHazine 25 MG/ML Syringe 12.5 MG IV (16:16)
[2019-10-19 16:57] LABS: Lactic Acid 0.8 mmol/L (0.4-1.9)
[2019-10-19] MEDS: HYDROcodone Bitartrate/Apap 5/325 Tablet PO (17:25)
[2019-10-19 17:28] VITALS: BP 97/72; PULSE 64; RESP 14; O2SAT 98
== END 2019-10-19 17:47 | disposition home or self-care (01) ==
PROVIDERS: Emergency Provider Emergency Medicine; PCP Family Medicine
DX: R10.31 Right lower quadrant pain (principal); R11.0 Nausea; Z87.19 Personal history of other diseases of the digestive system; F17.200 Nicotine dependence, unspecified, uncomplicated
CPT/HCPCS: 74177; 76830; 76856; 80053; 81001; 83605; 83690; 85025; 96361; 96374; 96375; 96376; 99284; J7030; Q9967; A4216; J2405

== ENCOUNTER 2020-02-01 16:03 | Emergency (ER) | payer MEDICAID, SELFPAY ==
[2020-02-01 16:04] VITALS: BP 110/82; PULSE 104; RESP 20; TEMP 36.6; O2SAT 100; BMI 29.9
--- NOTE | 2020-02-01 16:23 | ED.DCSUM_ITS ---
History of Present Illness Chief Complaint: Flank Pain Informant: Patient Onset: Days Context: Gradual Onset Timing: Intermittent Current Severity: Moderate Maximum Severity: Moderate Narrative: The patient is a 24-year-old female presents to the emergency department with pelvic pain. Patient states she is been dealing with pain intermittently for the past 6 months. She has had pelvic ultrasound and CT. She has seen GEOSCIENCE TECHNICIAN who thinks that she may have underlying endometriosis. She is going to follow- up next week to discuss laparoscopic exploratory surgery. She states from time to time, the pain will get very severe. She states today, that is what happened. She is been nauseated. She states is the same pain that she gets. She has had multiple prior work-ups for the same. She denies any urinary symptoms. She denies any fevers or chills. Prior similar symptoms: No Recent Illness/Hospitalization: No Past Medical History - Allergies and Home Meds Allergies/Adverse Reactions: Allergies latex Allergy (Verified 02/01/20 16:06) Rash Primary Care Physician: Ran Johnson DO [Primary Care Provider] - Prior records reviewed: Yes Past Medical History: None Surgical History: - - Bilateral tubal ligation, ex lap with duodenal cyst removal Smoking Status: Never smoker Review of Systems General: Denies: Chills, Fever, Sweats Eyes: Denies: Visual changes - bilaterally, Diplopia ENT: Denies: Rhinorrhea, Sore throat Cardiovascular: Denies: Chest pain, Palpitations Respiratory: Denies: Dyspnea, Cough, Dyspnea on exertion Gastrointestinal: Denies: Abdominal pain, Nausea, Vomiting, Diarrhea, Melena, Hematochezia Genitourinary: Denies: Dysuria, Hematuria, Frequency Musculoskeletal: Denies: Back pain, Extremity Pain Skin: Denies: Rash, Wounds Neurological: Denies: Headache, Weakness, Numbness Physical Exam Vital Signs/Narrative: Vital Signs Temp Pulse Resp BP Pulse Ox 02/01/20 16:04 98 F 104 H 20 H 110/82 H 100 Inital Vital Signs reviewed: Yes General: Well nourished, Well developed, No Acute Distress Head: Normocephalic, Atraumatic Eyes: Perrl, EOMI ENT: Moist mucous membranes, No rhinorrhea Neck: Supple, Nontender Cardiovascular: Regular rate, Regular rhythm, No murmurs Respiratory: No distress, CTA bilaterally, Chest nontender Abdomen: Soft, Nondistended, Normal bowel sounds, Tender. Negative for: Guarding Back: Nontender, Normal Inspection Extremities: Nontender, No edema Skin: Normal color, No rash Neurological: Alert, Oriented x3, Cranial nerves II-XII grossly intact, Normal Strength, Normal Sensation Psychological: Normal affect, Normal Mood Diagnostic/Tx/Re-eval - Medical Decision Making This is the patient's fourth ER visit to various emergency departments for the same complaint within the past 2 weeks. She has had CT scan, transvaginal ultrasound, multiple lab evaluations, and multiple urinalysis. No definitive cause of her pain has been found. The patient's pain was addressed with some improvement. At this point, I do for the following up with GEOSCIENCE TECHNICIAN for the endometriosis pathway would be appropriate. The patient was given 2 days of analgesics for acute pain control and will be discharged home. Impression 1. Pelvic pain ED Disposition - Plan for ED Patient: Disposition: Home or Assisted Living Instructions: ED Pelvic Pain [facility] Prescriptions: Hydrocodone Bitart/Apap 5-325 [[place] 5MG-325MG] 1 tab PO Q6H PRN PRN 2 Days #6 tab PRN Reason: Pain Prescription Printed Referrals: Ran Johnson DO [Primary Care Provider] -
[2020-02-01 16:32] VITALS: BP 110/82; PULSE 104; RESP 20; TEMP 36.6; O2SAT 100
[2020-02-01] MEDS: 0.9% Normal Saline 1,000 ML 1000 ML IV (16:38)
[2020-02-01] MEDS: proMETHazine 25 MG/ML Syringe 6.25 MG IV (16:38)
[2020-02-01] MEDS: Morphine 4 MG/ML Syringe IV (16:38)
[2020-02-01] MEDS: Ketorolac 15 MG/ML Vial IV (16:40)
[2020-02-01 16:43] LABS: Absolute Lymphocyte Count 2.03 X10^3/uL (0.83-4.51); Absolute Neutrophil Count 3.3 X10^3/uL (2.0-7.7); Basophil# 0.04 X10^3/uL; Basophil% 0.7 % (0-1); Eosinophil# 0.31 X10^3/uL; Eosinophils% 5.1 % (0-5); Hematocrit 33.9 % (37-47); Hemoglobin 10.3 g/dL (12.0-15.0); Lymphocyte # 2.03 X10^3/ul (4.0); Lymphocyte % 33.2 % (19-41); Mean Corp Hgb Conc 30.4 g/dL (32-36); Mean Corpuscular Hgb 24.5 pg (27.0-32.0); Mean Corpuscular Volume 80.5 fL (81-99); Mean Platelet Vol. 9.3 fl (6.2-12.0); Monocyte# 0.47 X10^3/uL; Monocyte% 7.7 % (0-10); NRBC Flagged by Analyzer 0 % (0-5); Neutrophil # 3.26 X10^3/uL (2.7-7.7); Neutrophil % 53.1 % (47-70); Platelet Count 387 K/mm3 (150-450); RBC Distribution Width CV 14.5 % (11.6-14.6); RBC Distribution Width SD 41.4 fl (35.1-43.9); Red Blood Count 4.21 M/mm3 (4.2-5.4); White Blood Count 6.1 K/mm3 (4.4-11.0)
[2020-02-01 16:51] LABS: Mucous, Urine 0 SEEN /hpf (<or=2+); Red Blood Cells-Urine 0 SEEN /hpf (0-5)
[2020-02-01 16:58] LABS: Color, Urine Yellow (Yellow); Glucose, Dipstick Normal (Normal); Ketone-Dipstick Negative (Negative); Leukocyte Esterase-Dipstick Negative /ul (Negative); Nitrite-Dipstick Negative (Negative); Occult Blood-Urine Negative /ul (Negative); Protein-Dipstick Negative (Negative); Specific Gravity, Urine 1.015 (1.002-1.030); Urine Bilirubin Dipstick Negative (Negative); Urine Clarity Sl. Cloudy (Clear); Urine Urobilinogen Normal (Normal)
[2020-02-01 17:03] LABS: Internal QC Validated? YES +Cl - CLEAR BKGD; Pregnancy, Urine Negative Negative
[2020-02-01 17:07] LABS: Squamous Epithelial Cells - UA 0-5 SEEN /hpf (5-10)
[2020-02-01 17:09] LABS: Bacteria RARE /hpf (None Seen)
[2020-02-01 17:10] LABS: White Blood Cells 0-5 SEEN /hpf (0-5)
[2020-02-01] MEDS: HYDROcodone Bitartrate/Apap 5/325 Tablet PO (17:15)
[2020-02-01 17:17] LABS: Anion Gap 10 (5-15); BUN 13 mg/dL (7-18); BUN/Creat Ratio 17.4 RATIO (10-20); Calcium,Total 9.2 mg/dL (8.5-10.1); Chloride 108 mmol/L (98-107); Creatinine, Serum 0.75 mg/dL (0.55-1.02); EST Glomerular Filtration Rate 101 mL/min (>60); Est Glom Filt Rate - Afr Amer 123 mL/min (>60); Estimated Creatinine Clearance 104.08 ml/min; Glucose 85 mg/dL (74-106); Potassium 3.9 mmol/L (3.5-5.1); Sodium Level 141 mmol/L (136-145)
[2020-02-01 18:32] VITALS: BP 118/62; PULSE 82; RESP 16; O2SAT 99
--- NOTE | 2020-02-01 18:36 | ED.RN ---
REVIEWED D/C INSTRUCTIONS, FOLLOW UP CARE, PRESCRIPTION, AND S/S THAT WOULD WARRANT A RETURN TO THE ED WITH PT. PT VERBALIZED AN UNDERSTANDING AND DENIES FURTHER QUESTIONS FOR THIS RN. PT SKIN P/W/D, RESP EVEN AND UNLABORED, PT A&O X 3, NO DISTRESS NOTED. PT AMBULATED OUT OF ED, GAIT STEADY.
== END 2020-02-01 18:37 | disposition home or self-care (01) ==
LOC: ED 16:53
PROVIDERS: Emergency Provider Emergency Medicine; PCP Family Medicine
DX: R10.2 Pelvic and perineal pain (principal)
CPT/HCPCS: 80048; 81001; 81025; 85025; 96361; 96374; 96375; 99284; J7030

== ENCOUNTER 2020-02-11 10:29 | Emergency (ER) | payer MEDICAID, SELFPAY ==
[2020-02-11 10:31] VITALS: BP 110/69; PULSE 90; RESP 20; TEMP 36.6; O2SAT 100; BMI 31.6
--- NOTE | 2020-02-11 10:57 | US_ITS ---
STUDY: ULTRASOUND OF THE FEMALE PELVIS - REASON FOR EXAM: Female, 24 years old. PELVIC PAIN PT TO HAVE EXPLORATORY SURGERY FOR ENDOMETRIOSIS LMP: January 15, 2020 TECHNIQUE: Transvaginal TECHNICAL QUALITY: Adequate. COMPARISON: October 19, 2019 FINDINGS: The uterus is retroverted and is in a midline position. The uterus measures 8.3 x 5.5 x 4.5 cm. Normal uterine cervix. The endometrium measures 13 mm in thickness, and is heterogeneous (striated). There is no demonstrated endometrial mass. There is no demonstrated myometrial mass. I.U.D. - The patient does not have an I.U.D. The right ovary is visualized. The right ovary measures 4.5 x 2.5 x 2.2 cm. There are multiple follicles of the right ovary without a dominant cyst. There is no visualized right adnexal mass or complex lesion. There is normal arterial and normal venous vascularity. The left ovary is visualized. The left ovary measures 3.8 x 1.9 x 1.8 cm. There are multiple follicles of the left ovary without a dominant cyst. There is no visualized left adnexal mass or complex lesion. There is normal arterial and normal venous vascularity. There is no fluid in the cul-de-sac. US/Transvaginal Non- IMPRESSION: Normal female pelvis. Electronically Signed: Prince Page MD at 13:13 EDT , Service support ,
--- NOTE | 2020-02-11 10:58 | ED.VIS.GEN ---
History of Present Illness Chief Complaint: Complaint Detail of Chief Complaint: Pelvic pain Informant: Patient Onset: Today Current Severity: Severe Maximum Severity: Severe Narrative: Patient presents with severe pelvic pain that started 3 AM this morning. She has had problems with intermittent pelvic pain and is working with an [employer] in [place] to schedule an ex lap due to suspected endometriosis. Patient states she took ibuprofen 600 mg and 1 tab of [place] today without improvement. She states the pattern of pain is same as previous but much more severe. She does report nausea but no vomiting. She denies diarrhea. She denies dysuria. - Past Medical History (1) History of anxiety Status: Chronic Past Medical History - Allergies and Home Meds Allergies/Adverse Reactions: Allergies latex Allergy (Verified 02/11/20 10:33) Rash Primary Care Physician: Ran Johnson DO [Primary Care Provider] - Prior records reviewed: Yes Surgical History: cholecystectomy, - - Bilateral tubal ligation, ex lap with duodenal cyst removal Smoking Status: Former smoker Review of Systems General: Denies: Chills, Fever Eyes: Denies: Visual changes - bilaterally ENT: Denies: Bilateral ear pain Cardiovascular: Denies: Chest pain Respiratory: Denies: Dyspnea, Cough Gastrointestinal: Reports: Abdominal pain, Nausea. Denies: Vomiting, Diarrhea Genitourinary: Denies: Dysuria Musculoskeletal: Denies: Swelling, Extremity Pain Skin: Denies: Rash Neurological: Denies: Headache Hematologic: Denies: Easy bruising, Easy bleeding Allergy: Denies: Uticaria Physical Exam Vital Signs/Narrative: Vital Signs Temp Pulse Resp BP Pulse Ox 02/11/20 10:31 98 F 90 20 H 110/69 100 Inital Vital Signs reviewed: Yes General: Well nourished, Well developed Head: Normocephalic ENT: Moist mucous membranes Neck: Supple Cardiovascular: Regular rate, Regular rhythm Respiratory: No distress, CTA bilaterally Abdomen: Soft, Tender - Moderate lower abdominal tenderness palpation. No guarding or rebound., Hypoactive bowel sounds Skin: Normal color Neurological: Alert, Oriented x3 Psychological: Tearful Diagnostic/Tx/Re-eval Impressions Transvaginal US 02/11/20 10:57 IMPRESSION: Normal female pelvis. Electronically Signed: Prince Page MD at 13:13 EDT , Service support , 02/11/20 10:57 Transvaginal Non- [US] Stat Laboratory Results 02/11/20 02/11/20 02/11/20 11:11 11:11 11:11 WBC 6.0 RBC 4.46 Hgb 10.8 L Hct 35.7 L MCV 80.0 L MCH 24.2 L MCHC 30.3 L RDW Std Deviation 41.5 RDW Coeff of Seth 14.4 Plt Count 380 MPV 9.0 Immature Gran % (Auto) 0.300 Neut % (Auto) 53.0 Lymph % (Auto) 36.0 [place] % (Auto) 6.0 Eos % (Auto) 4.0 Baso % (Auto) 0.7 Absolute Neuts (auto) 3.2 Absolute Lymphs (auto) 2.17 Nucleated RBC % 0 Sodium 138 Potassium 3.6 Chloride 109 H Carbon Dioxide 24.0 Anion Gap 5 BUN 10 Creatinine 0.79 Estim Creat Clear Calc 98.81 Est GFR (MDRD) Af Amer 114 Est GFR (MDRD) Non-Af 94 BUN/Creatinine Ratio 12.6 Glucose 95 Calcium 8.9 Serum , Qual NEGATIVE Urine Color Urine Clarity Urine pH Ur Specific [place] Urine Protein Urine Glucose (UA) Urine Ketones Urine Occult Blood Urine Nitrite Urine Bilirubin Urine Urobilinogen Ur Leukocyte Esterase Urine RBC Urine WBC Ur Squamous Epith Cells Urine Bacteria Urine Mucus 02/11/20 11:55 WBC RBC Hgb Hct MCV MCH MCHC RDW Std Deviation RDW Coeff of Seth Plt Count MPV Immature Gran % (Auto) Neut % (Auto) Lymph % (Auto) [place] % (Auto) Eos % (Auto) Baso % (Auto) Absolute Neuts (auto) Absolute Lymphs (auto) Nucleated RBC % Sodium Potassium Chloride Carbon Dioxide Anion Gap BUN Creatinine Estim Creat Clear Calc Est GFR (MDRD) Af Amer Est GFR (MDRD) Non-Af BUN/Creatinine Ratio Glucose Calcium Serum , Qual Urine Color Yellow Urine Clarity Clear Urine pH 7.0 Ur Specific [place] 1.010 Urine Protein Negative Urine Glucose (UA) Normal Urine Ketones Negative Urine Occult Blood Negative Urine Nitrite Negative Urine Bilirubin Negative Urine Urobilinogen Normal Ur Leukocyte Esterase Negative Urine RBC 0 SEEN Urine WBC 0 SEEN Ur Squamous Epith Cells 5-10 SEEN Urine Bacteria 1+ Urine Mucus 0 SEEN - Medical Decision Making Patient was given 2 doses of morphine along with a dose of Toradol for pain control. She was given Zofran. Repeat evaluation she continues to complain of pain. Abdomen is soft with no sign of surgical abdomen. Ultrasound shows no evidence of torsion. She was given a prescription for 6 tabs of [place] on the which she has been using. I will write her prescription for 10 tabs of Percocet. She is to call her surgeon tomorrow. ED Disposition - Plan for ED Patient: Disposition: Home or Assisted Living Diagnosis: Pelvic pain Instructions: ED Pelvic Pain [facility] Prescriptions: Oxycodone HCl/Acetaminophen [Percocet 5/325] 1 tablet PO Q6H PRN PRN 3 Days #10 tablet PRN Reason: Pain Transmission Status: Received by [id number] Additional Instructions: Follow-up with your OBGYN as soon as possible.
[2020-02-11 11:28] LABS: Absolute Lymphocyte Count 2.17 X10^3/uL (0.83-4.51); Absolute Neutrophil Count 3.2 X10^3/uL (2.0-7.7); Basophil# 0.04 X10^3/uL; Basophil% 0.7 % (0-1); Eosinophil# 0.24 X10^3/uL; Hematocrit 35.7 % (37-47); Hemoglobin 10.8 g/dL (12.0-15.0); Lymphocyte # 2.17 X10^3/ul (4.0); Mean Corp Hgb Conc 30.3 g/dL (32-36); Mean Corpuscular Hgb 24.2 pg (27.0-32.0); Monocyte# 0.36 X10^3/uL; NRBC Flagged by Analyzer 0 % (0-5); Neutrophil # 3.19 X10^3/uL (2.7-7.7); Platelet Count 380 K/mm3 (150-450); RBC Distribution Width CV 14.4 % (11.6-14.6); RBC Distribution Width SD 41.5 fl (35.1-43.9); Red Blood Count 4.46 M/mm3 (4.2-5.4)
[2020-02-11 11:41] LABS: Internal QC Validated? YES +Cl - CLEAR BKGD; Pregnancy, Serum, hCG Quali. NEGATIVE Negative
[2020-02-11 11:45] LABS: Anion Gap 5 (5-15); BUN 10 mg/dL (7-18); BUN/Creat Ratio 12.6 RATIO (10-20); Calcium,Total 8.9 mg/dL (8.5-10.1); Chloride 109 mmol/L (98-107); Creatinine, Serum 0.79 mg/dL (0.55-1.02); EST Glomerular Filtration Rate 94 mL/min (>60); Est Glom Filt Rate - Afr Amer 114 mL/min (>60); Estimated Creatinine Clearance 98.81 ml/min; Glucose 95 mg/dL (74-106); Potassium 3.6 mmol/L (3.5-5.1); Sodium Level 138 mmol/L (136-145)
[2020-02-11] MEDS: Morphine 4 MG/ML Syringe IV ×2 (11:46→13:04)
[2020-02-11] MEDS: Ondansetron 4 MG/2 ML Vial IV (11:46)
[2020-02-11] MEDS: 0.9% Normal Saline 1,000 ML 150 ML IV (11:47)
[2020-02-11 12:01] LABS: Mucous, Urine 0 SEEN /hpf (<or=2+); Red Blood Cells-Urine 0 SEEN /hpf (0-5); White Blood Cells 0 SEEN /hpf (0-5)
[2020-02-11] MEDS: Ketorolac 30 MG/ML Syringe IV (12:09)
[2020-02-11 12:23] LABS: Color, Urine Yellow (Yellow); Glucose, Dipstick Normal (Normal); Ketone-Dipstick Negative (Negative); Leukocyte Esterase-Dipstick Negative /ul (Negative); Nitrite-Dipstick Negative (Negative); Occult Blood-Urine Negative /ul (Negative); Protein-Dipstick Negative (Negative); Urine Bilirubin Dipstick Negative (Negative); Urine Clarity Clear (Clear); Urine Urobilinogen Normal (Normal)
[2020-02-11 12:31] LABS: Bacteria 1+ /hpf (None Seen); Squamous Epithelial Cells - UA 5-10 SEEN /hpf (5-10)
[2020-02-11 13:06] VITALS: BP 105/85; PULSE 86; RESP 17; O2SAT 100
[2020-02-11] MEDS: Acetaminophen 500 MG Tablet 1000 MG PO (14:05)
[2020-02-11 14:09] VITALS: BP 121/75; PULSE 76; RESP 14; O2SAT 98
== END 2020-02-11 14:12 | disposition home or self-care (01) ==
PROVIDERS: Emergency Provider Emergency Medicine; PCP Family Medicine
DX: R10.2 Pelvic and perineal pain (principal); R11.0 Nausea; F41.9 Anxiety disorder, unspecified; Z79.899 Other long term (current) drug therapy; Z87.891 Personal history of nicotine dependence
CPT/HCPCS: 76830; 80048; 81001; 84703; 85025; 96361; 96374; 96375; 96376; 99284; J7030; A4216; J2405

== ENCOUNTER 2020-04-20 17:07 | Emergency (ER) | payer MEDICAID, SELFPAY ==
[2020-04-20 17:08] VITALS: BP 119/88; PULSE 108; RESP 16; TEMP 36.3; O2SAT 99; BMI 29.9
--- NOTE | 2020-04-20 17:27 | CT_ITS ---
STUDY: CT ABDOMEN AND PELVIS WITHOUT CONTRAST REASON FOR EXAM: Female, 24 years old. EPIGASTRIC PAIN AND GI BLEED. Prior cholecystectomy and cyst removed from colon RADIATION DOSAGE (If Supplied By Facility): CTDIvol = ( 16.50 ) mGy, DLP = ( 1045.63 ) mGycm TECHNIQUE: Transaxial images were obtained from the dome of the diaphragm to the symphysis pubis without oral contrast, and without intravenous contrast. Sagittal and coronal images were reconstructed. Individualized dose optimization techniques were used for this CT. COMPARISON: 10/19/2019. FINDINGS: Lung bases are clear. Heart size is normal. The liver is unremarkable. The gallbladder is surgically absent. The spleen and pancreas are unremarkable. The adrenal glands are normal. The kidneys are unremarkable. No stones or hydronephrosis. The aorta is normal in caliber. There is no free fluid, free air or organized collection. No bowel obstruction. The colon is not distended. Question mild colon wall thickening from the cecum at least through the splenic flexure suspicious for infectious or inflammatory colitis. Low-attenuation noted along the posterior aspect of the iliopsoas muscle, consistent with bursal effusion or complex cyst. Normal abdominal wall. Normal osseous structures. CT/Abdomen/Pelvis W IV Cont ONLY IMPRESSION: 1. Mild ascending and transverse colon wall thickening, possibly due to lack of distention but suspicious for infectious or inflammatory colitis. 2. Right iliopsoas bursal effusion is favored over complex cyst. No significant change from the prior study. Electronically Signed: Alida Winters MD at 19:00 EDT Tel , Service support ,
[2020-04-20 17:45] LABS: Red Blood Cells-Urine 0 SEEN /hpf (0-5); White Blood Cells 0 SEEN /hpf (0-5)
[2020-04-20] MEDS: 0.9% Normal Saline 1,000 ML 1000 ML IV (17:46)
[2020-04-20] MEDS: proMETHazine 25 MG/ML Syringe 12.5 MG IV (17:47)
[2020-04-20] MEDS: morphine 8 MG/ML Syringe 6 MG IV ×2 (17:47→19:52)
[2020-04-20 17:52] LABS: Color, Urine Yellow (Yellow); Glucose, Dipstick Normal (Normal); Ketone-Dipstick 5 mg/dl (Negative); Leukocyte Esterase-Dipstick 25 /ul (Negative); Nitrite-Dipstick Negative (Negative); Occult Blood-Urine 10 /ul (Negative); Protein-Dipstick 15 mg/dl (Negative); Urine Bilirubin Dipstick Negative (Negative); Urine Clarity Sl. Cloudy (Clear); Urine Urobilinogen 1 mg/dl (Normal)
[2020-04-20 17:58] LABS: Absolute Lymphocyte Count 2.02 X10^3/uL (0.83-4.51); Absolute Neutrophil Count 5.7 X10^3/uL (2.0-7.7); Basophil# 0.06 X10^3/uL; Basophil% 0.7 % (0-1); Eosinophil# 0.15 X10^3/uL; Eosinophils% 1.8 % (0-5); Hematocrit 37.2 % (37-47); Lymphocyte # 2.02 X10^3/ul (4.0); Lymphocyte % 23.9 % (19-41); Mean Corp Hgb Conc 29.6 g/dL (32-36); Mean Corpuscular Hgb 23.8 pg (27.0-32.0); Mean Corpuscular Volume 80.5 fL (81-99); Mean Platelet Vol. 9.9 fl (6.2-12.0); Monocyte# 0.51 X10^3/uL; NRBC Flagged by Analyzer 0 % (0-5); Neutrophil % 67.4 % (47-70); Platelet Count 393 K/mm3 (150-450); RBC Distribution Width CV 14.3 % (11.6-14.6); RBC Distribution Width SD 41.9 fl (35.1-43.9); Red Blood Count 4.62 M/mm3 (4.2-5.4); White Blood Count 8.5 K/mm3 (4.4-11.0)
--- NOTE | 2020-04-20 17:58 | ED.DCSUM_ITS ---
- ER Visit Summary Date of Service: 04/20/20 Chief Complaint: Epigastric abdominal pain History of Present Illness: The patient is a 24 F history of depression, bipolar, cholecystectomy, resection of an intestinal cyst and prior pancreatitis. Patient states that she was feeling fine last several days. Rodri ace started having epigastric abdominal pain with nausea vomiting. Believes she might have had a small amount of blood in her stool. Denies any fever. No dysuria. Last menstrual period was less than 4 weeks ago. No back pain. Physical Examination: Young female vital signs stable afebrile. H EENT exam unremarkable. Moist mucous membranes. Neck nontender no lymphadenopathy. Lungs clear to auscultation bilaterally. Heart regular rhythm rate about 105 no murmur. Abdomen soft. Nondistended. No signs of obstruction. Epigastric tenderness to palpation. Prior midline incision well-healed. No signs of obstruction. Right lower quadrant nontender. No hernia or mass. Patient moving all 4 extremities. Back nontender. Neurologically awake alert with no focal motor deficits. Test Results: CBC shows white count 8. Hemoglobin 11. No bands. Chemistries unremarkable normal creatinine gap. Liver enzymes normal. Lipase normal. UA no signs of infection it was contaminated with epithelial cells. test negative. CAT scan abdomen pelvis with IV contrast shows ascending and transverse colitis. Infectious versus inflammatory. Also right iliopsoas bursal effusion which was seen previously. Discussed all test results with patient. Emergency Department Course and Treatment: Patient treated with morphine and Phenergan for pain and nausea. CAT scan labs pending. She was given a second dose of morphine for pain and Reglan for nausea. Previously given Benadryl due to some itching after her first dose of morphine and Phenergan. She will be given 1 dose of p.o. Augmentin for colitis. Treatment Plan: Augmentin twice daily for 10 days. Johnson for pain. Follow-up with her primary care physician for consult for further evaluation and most likely either general surgery or GI consultation for possible colonoscopy. Disposition: discharge Impression: Acute abdominal pain secondary to ascending and transverse colitis of uncertain etiology (infectious versus inflammatory) This note was generated with [employer] dictation software. It may contain incorrect words, spelling, and punctuation that were not noted in review of the chart prior to signing ED Disposition - Plan for ED Patient: Referrals: Ran Johnson DO [Primary Care Provider] -
--- NOTE | 2020-04-20 17:58 | NURSING ---
Pt c/o throat feeling funny and itching after receiving Phenergan and morphine.
[2020-04-20 18:07] LABS: Bacteria 1+ /hpf (None Seen); Squamous Epithelial Cells - UA 25-50 SEEN /hpf (5-10)
[2020-04-20 18:08] LABS: Mucous, Urine 2+ /hpf (<or=2+)
[2020-04-20 18:13] LABS: Internal QC Validated? YES +Cl - CLEAR BKGD; Pregnancy, Serum, hCG Quali. NEGATIVE Negative
[2020-04-20 18:19] LABS: AST(SGOT) 19 U/L (15-37); Alanine Aminotransfer ALT/SGPT 19 U/L (13-56); Albumin, Serum 4.3 g/dL (3.2-5.0); Alkaline Phosphatase 89 U/L (45-117); Anion Gap 7 (5-15); BUN 11 mg/dL (7-18); BUN/Creat Ratio 11.7 RATIO (10-20); Bilirubin, Direct 0.09 mg/dL (0.00-0.30); Calcium,Total 9.4 mg/dL (8.5-10.1); Chloride 110 mmol/L (98-107); Creatinine, Serum 0.94 mg/dL (0.55-1.02); EST Glomerular Filtration Rate 77 mL/min (>60); Est Glom Filt Rate - Afr Amer 94 mL/min (>60); Estimated Creatinine Clearance 83.04 ml/min; Globulin 4.5 g/dL (2.2-4.2); Glucose 103 mg/dL (74-106); Lipase 110 U/L (73-393); Potassium 3.5 mmol/L (3.5-5.1); Protein, Total 8.8 g/dL (6.4-8.2); Sodium Level 141 mmol/L (136-145)
[2020-04-20] MEDS: DiphenhydrAMINE 50 MG/ML Syringe 25 MG IV (18:20)
[2020-04-20 18:39] VITALS: BP 118/75; RESP 16
[2020-04-20] MEDS: Metoclopramide 10 MG/2 ML Vial IV (19:52)
[2020-04-20 19:59] VITALS: BP 111/70; PULSE 94; RESP 18; O2SAT 98
--- NOTE | 2020-04-20 20:18 | DCINST.ED_ITS ---
ED Disposition - Plan for ED Patient: Disposition: Home or Assisted Living Prescriptions: Amox/Clavulanate Tablet [Augmentin Tablet] 875 mg PO Q12H #20 tab Prescription Printed Hydrocodone Bitart/Apap 5-325 [Nikolai 5MG-325MG] 1 - 2 tab PO Q4H PRN PRN 4 Days #14 tab PRN Reason: Pain Prescription Printed Referrals: Ran Johnson DO [Primary Care Provider] - As soon as possible Wen Amezcua MD [STAFF PHYSICIAN] - As soon as possible Additional Instructions: Abdominal pain is secondary to inflammation of your colon. This is colitis. Unsure if it is due to an inflammatory process or if it secondary to an infection. We will put you on Augmentin twice a day in case this is infectious. Nikolai for pain. Call and follow-up with your doctor and/or Dr. Wen Amezcua a general surgeon with the [facility] for possible colonoscopy.
[2020-04-20] MEDS: Amox/Clavulanate 875 MG Tablet PO (20:22)
[2020-04-20 20:25] VITALS: BP 112/84; PULSE 90; RESP 18; O2SAT 97
== END 2020-04-20 20:27 | disposition home or self-care (01) ==
PROVIDERS: Emergency Provider Emergency Medicine; PCP Family Medicine
DX: K52.9 Noninfective gastroenteritis and colitis, unspecified (principal); F31.9 Bipolar disorder, unspecified; Z87.19 Personal history of other diseases of the digestive system; Z90.49 Acquired absence of other specified parts of digestive tract; Z79.899 Other long term (current) drug therapy
CPT/HCPCS: 74177; 80048; 80076; 81001; 83690; 84703; 85025; 96361; 96374; 96375; 96376; 99284; Q9967; A4216

== ENCOUNTER 2020-05-03 21:07 | Emergency (ER) | payer MEDICAID, SELFPAY ==
[2020-05-03 21:07] VITALS: BP 125/78; PULSE 88; RESP 16; TEMP 36.8; O2SAT 100; BMI 31.5
--- NOTE | 2020-05-03 22:18 | ED.VIS.GI ---
History of Present Illness Chief Complaint: GI Bleed Detail of Chief Complaint: abd pain, diarrhea Informant: Patient - Abdominal Pain/Flank Pain Onset: Weeks - several, worse in past 2 days Context: Gradual Onset Timing: Intermittent Quality: Aching, Dull Location: - - Right abdomen Current Severity: Severe Maximum Severity: Severe Worsened by: Movement Relieved by: Nothing - Nausea/Vomiting/Emesis GI Symptom: Negative for: Nausea, Vomiting - Diarrhea/Melena/Hematochezia GI Symptom: Diarrhea, Hematochezia. Negative for: Melena Onset: Today Stool Quality: Loose Severity: Moderate Associated Symptoms: Negative for: Dysuria, Frequency, Hematuria, Urgency LMP: Last month, usually irregular. None recently missed. Narrative: Patient has been having this right-sided abdominal pain for several weeks, it has become much worse in the past 2 days, gradually. She was seen here in the ER initially and diagnosed with colitis, placed on Augmentin, it did not help anything. Today she developed bloody diarrhea that is new. No fevers, chills, nausea, vomiting. Pain radiates into her right low back. Similar pain but a lot worse and also states that it seems to have resembled pancreatitis that she had related to when she had her cholecystectomy. She states the blood is mixed in with the loose stool. Patient presents during the national coronavirus emergency declaration/pandemic. She denies any known contact with anyone infected with COVID-19. She denies traveling out of the immediate area recently, nor any camping or ground water ingestion. Her water intake is mostly from bottles that is purchased. She denies anyone with similar symptoms lately. Denies any suspicious foods or undercooked/uncooked meat ingestion. No history of C. difficile. She finished her Augmentin about 1-2 weeks ago. She did follow-up with Dr. Amezcua with surgery. She recommended a colonoscopy, and is planning on scheduling her for that scope, but it has not been scheduled quite yet. - Past Medical History (1) History of anxiety Status: Chronic (2) Bipolar disorder Status: Chronic Past Medical History - Allergies and Home Meds Allergies/Adverse Reactions: Allergies codeine Allergy (Verified 05/03/20 21:09) Rash latex Allergy (Verified 04/20/20 17:53) Rash ondansetron [From Zofran] Allergy (Verified 04/20/20 17:53) Rash Primary Care Physician: Ran Johnson DO [Primary Care Provider] - Surgical History: cholecystectomy, - - Bilateral tubal ligation, ex lap with duodenal cyst removal Smoking Status: Never smoker Review of Systems General: Reports: Chills. Denies: Fever, Sweats Eyes: Denies: Visual changes - bilaterally, Diplopia ENT: Denies: Rhinorrhea, Sore throat Cardiovascular: Denies: Chest pain, Palpitations Respiratory: Denies: Dyspnea, Cough, Dyspnea on exertion Gastrointestinal: Reports: Abdominal pain, Diarrhea, Hematochezia. Denies: Nausea, Vomiting, Melena Genitourinary: Denies: Dysuria, Hematuria, Frequency Musculoskeletal: Reports: Back pain. Denies: Myalgias, Neck pain, Swelling, Extremity Pain Skin: Denies: Rash, Wounds Neurological: Denies: Headache, Weakness, Numbness Physical Exam Vital Signs/Narrative: Vital Signs Temp Pulse Resp BP Pulse Ox 05/03/20 21:07 98.3 F 88 16 125/78 H 100 Inital Vital Signs reviewed: Yes General: Well nourished, Well developed, No Acute Distress Head: Normocephalic, Atraumatic Eyes: Perrl, EOMI ENT: Moist mucous membranes, No rhinorrhea Neck: Supple, Nontender Cardiovascular: Regular rate, Regular rhythm, No murmurs Respiratory: No distress, CTA bilaterally, Chest nontender Abdomen: Soft, Nondistended, Normal bowel sounds, No masses, Tender - Very tender with voluntary guarding throughout right abdomen, Psoas sign, Obturator sign, Rovsig's sign, Martinez's sign - Although status post cholecystectomy. Negative for: Rebound tenderness Back: Nontender, Normal Inspection. Negative for: CVA tenderness Extremities: Nontender, No edema. Negative for: Calf Tenderness Skin: Normal color, No rash, No Trauma Neurological: Alert, Oriented x3, Cranial nerves II-XII grossly intact, Normal Strength, Normal Sensation, Normal Gait Psychological: Normal affect, Normal Mood Diagnostic/Tx/Re-eval Impressions Abdomen/Pelvis CT 05/04/20 00:20 IMPRESSION: No acute abdominopelvic abnormality. Individualized dose optimization techniques were used for this CT. at 0137 Reported and signed by: Dorcas Solorio MD Electronically Signed: Dorcas Solorio MD at 1:36 EDT Tel , Service support , 05/04/20 00:20 CT Abd [Abdomen/Pelvis without Cont] [CT] Stat Laboratory Results 05/03/20 05/03/20 05/03/20 22:30 22:30 22:55 WBC 7.3 RBC 4.36 Hgb 10.3 L Hct 33.9 L MCV 77.8 L MCH 23.6 L MCHC 30.4 L RDW Std Deviation 40.9 RDW Coeff of Seth 14.5 Plt Count 368 MPV 9.7 Immature Gran % (Auto) 0.100 Neut % (Auto) 52.1 Lymph % (Auto) 36.6 [place] % (Auto) 7.4 Eos % (Auto) 3.0 Baso % (Auto) 0.8 Absolute Neuts (auto) 3.8 Absolute Lymphs (auto) 2.68 Nucleated RBC % 0 Sodium 140 Potassium 3.9 Chloride 110 H Carbon Dioxide 25.0 Anion Gap 5 BUN 11 Creatinine 0.74 Estim Creat Clear Calc 105.48 Est GFR (MDRD) Af Amer 123 Est GFR (MDRD) Non-Af 101 BUN/Creatinine Ratio 14.8 Glucose 76 Calcium 8.9 Total Bilirubin 0.10 L AST 21 ALT 19 Alkaline Phosphatase 70 Total Protein 8.0 Albumin 3.9 Globulin 4.1 Albumin/Globulin Ratio 1.0 Lipase 133 Urine Color Urine Clarity Urine pH Ur Specific [place] Urine Protein Urine Glucose (UA) Urine Ketones Urine Occult Blood Urine Nitrite Urine Bilirubin Urine Urobilinogen Ur Leukocyte Esterase Urine RBC Urine WBC Ur Squamous Epith Cells Urine Bacteria Urine Mucus Urine Test Negative 05/03/20 22:55 WBC RBC Hgb Hct MCV MCH MCHC RDW Std Deviation RDW Coeff of Seth Plt Count MPV Immature Gran % (Auto) Neut % (Auto) Lymph % (Auto) [place] % (Auto) Eos % (Auto) Baso % (Auto) Absolute Neuts (auto) Absolute Lymphs (auto) Nucleated RBC % Sodium Potassium Chloride Carbon Dioxide Anion Gap BUN Creatinine Estim Creat Clear Calc Est GFR (MDRD) Af Amer Est GFR (MDRD) Non-Af BUN/Creatinine Ratio Glucose Calcium Total Bilirubin AST ALT Alkaline Phosphatase Total Protein Albumin Globulin Albumin/Globulin Ratio Lipase Urine Color Yellow Urine Clarity Clear Urine pH 7.0 Ur Specific [place] 1.015 Urine Protein Negative Urine Glucose (UA) Normal Urine Ketones Negative Urine Occult Blood Negative Urine Nitrite Negative Urine Bilirubin Negative Urine Urobilinogen Normal Ur Leukocyte Esterase Negative Urine RBC 0 SEEN Urine WBC 0 SEEN Ur Squamous Epith Cells 0-5 SEEN Urine Bacteria 1+ Urine Mucus 0 SEEN Urine Test - Medical Decision Making Patient continued to be in pain after morphine, Toradol, Bentyl, and after multiple other doses of morphine, continued to complain of pain and request admission as a result. Her labs were fairly unremarkable, her white blood count was actually lower than it was 2 weeks ago when she had colitis on CT. Her symptoms and bloody diarrhea are consistent with acute colitis, and her lack of leukocytosis argues against acute infection being the cause. However given her persistent pain, as well as her secondary signs of appendicitis, although they are nonspecific, I obtained a CT again. Now it shows no signs of colitis. It is actually interpreted as no acute abdominal pelvic abnormality. However on the findings, the radiologist does note that the patient has a probable right iliopsoas bursal fluid collection that appears similar to the prior study. This would explain why her symptoms are so much worse with movement and walking, and why she has such a positive psoas sign on exam. Given all of this, she does not require admission to the hospital, I do not think this will benefit her and she understands that. She appears much more comfortable on reevaluation anyway. During her 5+ hour stay in the emergency department, she did not have any diarrhea. If she continues to have bloody diarrhea, I recommend that she collect it at home and taken to the lab for test results to be sent to her doctor, I gave her requisitions and prescription for the same test that we ordered here, enteric bacterial panel, ova and parasite, and C. difficile to rule out all treatable causes possible. She is still to follow-up with Dr. Amezcua regarding her colonoscopy, and she is referred to the on-call orthopedist Dr. Rc Conley for evaluation of the possibility of her having iliopsoas bursitis. Given a short prescription for [place], however she is frequently prescribed that from the emergency department as well as stronger medications. She does not currently have a active narcotic according to her [place] oarrs report. ED Disposition - Plan for ED Patient: Disposition: Home or Assisted Living Diagnosis: Iliopsoas bursitis, Bloody diarrhea Instructions: ED Bursitis, ED Gastroenteritis Report Pend Prescriptions: Hydrocodone Bitart/Apap 5-325 [[place] 5MG-325MG] 1 tab PO Q4H PRN PRN 2 Days #10 tab PRN Reason: Pain Prescription Printed Referrals: Ran Johnson DO [Primary Care Provider] - As soon as possible (after you submit diarrhea sample to lab) Rc Conley MD [STAFF PHYSICIAN] - (for orthopaedic evaluation of your iliopsoas bursitis)
[2020-05-03] MEDS: Dicyclomine 10 MG Capsule 20 MG PO (22:29)
[2020-05-03] MEDS: Ketorolac 30 MG/ML Syringe IV (22:30)
[2020-05-03] MEDS: Morphine 4 MG/ML Syringe IV (22:31)
[2020-05-03] MEDS: 0.9% Normal Saline 1,000 ML 1000 ML IV (22:32)
[2020-05-03 22:44] LABS: Absolute Lymphocyte Count 2.68 X10^3/uL (0.83-4.51); Absolute Neutrophil Count 3.8 X10^3/uL (2.0-7.7); Basophil# 0.06 X10^3/uL; Basophil% 0.8 % (0-1); Eosinophil# 0.22 X10^3/uL; Hematocrit 33.9 % (37-47); Hemoglobin 10.3 g/dL (12.0-15.0); Lymphocyte # 2.68 X10^3/ul (4.0); Lymphocyte % 36.6 % (19-41); Mean Corp Hgb Conc 30.4 g/dL (32-36); Mean Corpuscular Hgb 23.6 pg (27.0-32.0); Mean Corpuscular Volume 77.8 fL (81-99); Mean Platelet Vol. 9.7 fl (6.2-12.0); Monocyte# 0.54 X10^3/uL; Monocyte% 7.4 % (0-10); NRBC Flagged by Analyzer 0 % (0-5); Neutrophil # 3.82 X10^3/uL (2.7-7.7); Neutrophil % 52.1 % (47-70); Platelet Count 368 K/mm3 (150-450); RBC Distribution Width CV 14.5 % (11.6-14.6); RBC Distribution Width SD 40.9 fl (35.1-43.9); Red Blood Count 4.36 M/mm3 (4.2-5.4); White Blood Count 7.3 K/mm3 (4.4-11.0)
[2020-05-03 23:02] LABS: AST(SGOT) 21 U/L (15-37); Alanine Aminotransfer ALT/SGPT 19 U/L (13-56); Albumin, Serum 3.9 g/dL (3.2-5.0); Alkaline Phosphatase 70 U/L (45-117); Anion Gap 5 (5-15); BUN 11 mg/dL (7-18); BUN/Creat Ratio 14.8 RATIO (10-20); Calcium,Total 8.9 mg/dL (8.5-10.1); Chloride 110 mmol/L (98-107); Creatinine, Serum 0.74 mg/dL (0.55-1.02); EST Glomerular Filtration Rate 101 mL/min (>60); Est Glom Filt Rate - Afr Amer 123 mL/min (>60); Estimated Creatinine Clearance 105.48 ml/min; Globulin 4.1 g/dL (2.2-4.2); Glucose 76 mg/dL (74-106); Lipase 133 U/L (73-393); Potassium 3.9 mmol/L (3.5-5.1); Sodium Level 140 mmol/L (136-145)
[2020-05-03 23:03] LABS: Mucous, Urine 0 SEEN /hpf (<or=2+); Red Blood Cells-Urine 0 SEEN /hpf (0-5); White Blood Cells 0 SEEN /hpf (0-5)
[2020-05-03 23:05] LABS: Color, Urine Yellow (Yellow); Glucose, Dipstick Normal (Normal); Ketone-Dipstick Negative (Negative); Leukocyte Esterase-Dipstick Negative /ul (Negative); Nitrite-Dipstick Negative (Negative); Occult Blood-Urine Negative /ul (Negative); Protein-Dipstick Negative (Negative); Specific Gravity, Urine 1.015 (1.002-1.030); Urine Bilirubin Dipstick Negative (Negative); Urine Clarity Clear (Clear); Urine Urobilinogen Normal (Normal)
[2020-05-03 23:06] LABS: Internal QC Validated? YES +Cl - CLEAR BKGD; Pregnancy, Urine Negative Negative
[2020-05-03 23:10] LABS: Bacteria 1+ /hpf (None Seen); Squamous Epithelial Cells - UA 0-5 SEEN /hpf (5-10)
[2020-05-03 23:25] VITALS: BP 112/65; PULSE 78; RESP 15; O2SAT 97
[2020-05-03] MEDS: morphine 8 MG/ML Syringe IV (23:43)
--- NOTE | 2020-05-04 00:20 | CT_ITS ---
HISTORY: RT SIDED ABDOMEN PAIN X SEVERAL WEEKS RADIATING INTO RT FLANK X 2 DAYS, BLOODY DIARRHEA TONIGHT HX:ASTHMA,TUBAL LIGATION,CHOLECYSTECTOMY,DUODENAL CYST REMOVED ADDITIONAL HISTORY: None provided. EXAMINATION/TECHNIQUE: CT Abdomen And Pelvis W/O Contrast Injection Enteric contrast was not given. Number of images including paperwork: [id number]. A radiation dose optimization technique was used for this scan. COMPARISON: 04/20/2020, 10/19/2019 FINDINGS: Evaluation of the abdominopelvic organs is limited in the absence of contrast. LOWER THORAX: No consolidation or pleural effusion. LIVER: No concerning focal lesion. GALLBLADDER: Cholecystectomy. BILE DUCTS: No significant biliary dilatation. SPLEEN: Unremarkable. PANCREAS: Unremarkable. ADRENAL GLANDS: Unremarkable. KIDNEYS/URETERS: Unremarkable. BOWEL: No bowel obstruction. No significant bowel wall thickening. No localized inflammation. Moderate amount of colonic stool. APPENDIX: Normal. FREE FLUID: Small amount of pelvic free fluid. FREE AIR: None. LYMPH NODES: No pathologic appearing adenopathy. PERITONEUM, RETROPERITONEUM AND MESENTERY: Otherwise unremarkable. VASCULATURE: Unremarkable as imaged. ABDOMINAL WALL: Unremarkable. PELVIS: Unremarkable bladder. OSSEOUS AND SOFT TISSUE STRUCTURES: No acute skeletal findings. Probable right iliopsoas bursal fluid appears similar. CT/Abdomen/Pelvis without Cont IMPRESSION: No acute abdominopelvic abnormality. Individualized dose optimization techniques were used for this CT. at 0137 Reported and signed by: Dorcas Solorio MD Electronically Signed: Dorcas Solorio MD at 1:36 EDT Tel , Service support ,
[2020-05-04 01:00] VITALS: BP 112/75; PULSE 82; RESP 15; O2SAT 98
[2020-05-04] MEDS: Metoclopramide 10 MG/2 ML Vial 5 MG IV (01:01)
[2020-05-04] MEDS: Morphine 4 MG/ML Syringe IV (01:04)
[2020-05-04 01:38] VITALS: BP 120/67; RESP 15; O2SAT 96
[2020-05-04 02:03] VITALS: BP 128/83; PULSE 95; RESP 15; O2SAT 96
[2020-05-04 02:17] VITALS: BP 128/83; PULSE 95; RESP 15; O2SAT 96
== END 2020-05-04 02:32 | disposition home or self-care (01) ==
PROVIDERS: Emergency Provider Emergency Medicine; PCP Family Medicine
DX: R19.7 Diarrhea, unspecified (principal); K92.1 Melena; M70.71 Other bursitis of hip, right hip; Y93.9 Activity, unspecified; F31.9 Bipolar disorder, unspecified; F41.9 Anxiety disorder, unspecified; Z90.49 Acquired absence of other specified parts of digestive tract; Z87.19 Personal history of other diseases of the digestive system; Z79.899 Other long term (current) drug therapy
CPT/HCPCS: 74176; 80053; 81001; 81025; 83690; 85025; 96361; 96374; 96375; 96376; 99283; J7030; A4216

== ENCOUNTER 2020-05-06 16:28 | Emergency (ER) | payer MEDICAID, SELFPAY ==
[2020-05-06 16:29] VITALS: BP 117/74; PULSE 93; RESP 16; TEMP 36.4; O2SAT 99; BMI 32.4
[2020-05-06] MEDS: 0.9% Normal Saline 1,000 ML 999 ML IV (18:42)
[2020-05-06] MEDS: proMETHazine 25 MG/ML Syringe 6.25 MG IV (18:43)
[2020-05-06] MEDS: Mag Hydrox/Al Hydrox/Simeth 30 ML UDC PO (18:44)
[2020-05-06] MEDS: Famotidine 200 MG/20 ML MDV 20 MG in 0.9% Normal Saline (Pres. free 8 ML 300 MG IV (18:44)
[2020-05-06 18:51] LABS: Bacteria 0 SEEN /hpf (None Seen); Mucous, Urine 0 SEEN /hpf (<or=2+); Red Blood Cells-Urine 0 SEEN /hpf (0-5); White Blood Cells 0 SEEN /hpf (0-5)
[2020-05-06 18:54] LABS: Color, Urine Yellow (Yellow); Glucose, Dipstick Normal (Normal); Ketone-Dipstick Negative (Negative); Leukocyte Esterase-Dipstick Negative /ul (Negative); Nitrite-Dipstick Negative (Negative); Occult Blood-Urine Negative /ul (Negative); Protein-Dipstick Negative (Negative); Urine Bilirubin Dipstick Negative (Negative); Urine Clarity Clear (Clear); Urine Urobilinogen Normal (Normal)
[2020-05-06 19:00] LABS: Squamous Epithelial Cells - UA 0-5 SEEN /hpf (5-10)
[2020-05-06 19:11] LABS: Absolute Lymphocyte Count 1.87 X10^3/uL (0.83-4.51); Absolute Neutrophil Count 4.8 X10^3/uL (2.0-7.7); Basophil# 0.05 X10^3/uL; Basophil% 0.7 % (0-1); Eosinophil# 0.14 X10^3/uL; Eosinophils% 1.9 % (0-5); Hematocrit 34.9 % (37-47); Hemoglobin 10.5 g/dL (12.0-15.0); Lymphocyte # 1.87 X10^3/ul (4.0); Lymphocyte % 25.6 % (19-41); Mean Corp Hgb Conc 30.1 g/dL (32-36); Mean Corpuscular Hgb 23.8 pg (27.0-32.0); Mean Corpuscular Volume 79.1 fL (81-99); Mean Platelet Vol. 9.9 fl (6.2-12.0); Monocyte# 0.42 X10^3/uL; Monocyte% 5.7 % (0-10); NRBC Flagged by Analyzer 0 % (0-5); Neutrophil # 4.81 X10^3/uL (2.7-7.7); Neutrophil % 65.8 % (47-70); Platelet Count 352 K/mm3 (150-450); RBC Distribution Width CV 14.6 % (11.6-14.6); RBC Distribution Width SD 41.8 fl (35.1-43.9); Red Blood Count 4.41 M/mm3 (4.2-5.4); White Blood Count 7.3 K/mm3 (4.4-11.0)
[2020-05-06 19:59] LABS: AST(SGOT) 43 U/L (15-37); Alanine Aminotransfer ALT/SGPT 24 U/L (13-56); Albumin, Serum 3.9 g/dL (3.2-5.0); Alkaline Phosphatase 69 U/L (45-117); Anion Gap 4 (5-15); BUN 6 mg/dL (7-18); BUN/Creat Ratio 7.9 RATIO (10-20); Bilirubin, Direct 0.06 mg/dL (0.00-0.30); Calcium,Total 9.3 mg/dL (8.5-10.1); Chloride 110 mmol/L (98-107); Creatinine, Serum 0.76 mg/dL (0.55-1.02); EST Glomerular Filtration Rate 99 mL/min (>60); Est Glom Filt Rate - Afr Amer 119 mL/min (>60); Estimated Creatinine Clearance 102.71 ml/min; Globulin 4.4 g/dL (2.2-4.2); Glucose 71 mg/dL (74-106); Lipase 72 U/L (73-393); Protein, Total 8.3 g/dL (6.4-8.2); Sodium Level 139 mmol/L (136-145)
[2020-05-06 20:01] LABS: Internal QC Validated? YES +Cl - CLEAR BKGD; Pregnancy, Serum, hCG Quali. NEGATIVE Negative
[2020-05-06] MEDS: Morphine 4 MG/ML Syringe IV (20:43)
[2020-05-06 20:45] VITALS: BP 142/76; PULSE 87; RESP 16; O2SAT 99
--- NOTE | 2020-05-06 21:08 | RAD_ITS ---
STUDY: X-RAY - ACUTE ABDOMINAL SERIES REASON FOR EXAM: Female, 24 years old. ABD PAIN, VOMITING, DIZZINESS TECHNIQUE: Single view of the chest. For Supine, and erect view(s) of the abdomen were obtained. COMPARISON: Chest x-ray dated June 08, 2017. FINDINGS: The lungs are clear and expanded. Normal size heart. Normal mediastinum and jani. Normal visualized pulmonary arteries. Normal visualized aortic arch and descending thoracic aorta. There is a non-specific bowel gas pattern. The soft tissue structures of the abdomen and pelvis are unremarkable. Right upper quadrant surgical clips are present. Normal visualized osseous structures. RAD/Acute Abdomen Inc Chest IMPRESSION: No demonstrated acute or significant process of the chest, abdomen, and pelvis. Electronically Signed: Amandeep Mcdonald MD at 22:17 EDT , Service support ,
--- NOTE | 2020-05-06 22:08 | ED.DCSUM_ITS ---
History of Present Illness Chief Complaint: Abd Pain Informant: Patient Onset: Month(s) Narrative: Patient presents with continued abdominal pain for the past month. She is seen in the ED back on the , work-up noted concerns for colitis with right iliopsoas fluid collection. She is treated with Augmentin and finished her antibiotics. She was seen here again 3 days ago with the work-up. Her white count was improving, CT scan did not know any colitis, did note the right iliopsoas fluid collection potential bursitis. She had bloody stools at that time. She had none in the department she was sent home with stool specimen collection for outpatient testing. She states due to liquid she did not collect this. Reviewed records noted she had right-sided pain that was significant, work-up with a normal appendix history of cholecystectomy. She returns today noting she has been having now emesis for 3 days with blood in it. Pain in the epigastric region. Denies fever. She states she does have a follow-up with orthopedics team in the upcoming week along with a scheduled colonoscopy on the by Dr. Thompson. She did follow-up after her initial evaluation from her colitis diagnosis for planned colonoscopy. Prior similar symptoms: Yes Past Medical History - Allergies and Home Meds Allergies/Adverse Reactions: Allergies codeine Allergy (Verified 05/06/20 16:29) Rash latex Allergy (Verified 05/06/20 16:29) Rash ondansetron [From Zofran] Allergy (Verified 05/06/20 16:29) Rash Primary Care Physician: Ran Johnson DO [Primary Care Provider] - Past Medical History: - - Bipolar, anxiety Surgical History: cholecystectomy, - - Bilateral tubal ligation, ex lap with duodenal cyst removal Smoking Status: Former smoker Review of Systems General: Denies: Chills, Fever, Sweats Eyes: Denies: Visual changes - bilaterally, Diplopia ENT: Denies: Rhinorrhea, Sore throat Cardiovascular: Denies: Chest pain, Palpitations Respiratory: Denies: Dyspnea, Cough, Dyspnea on exertion Gastrointestinal: Reports: Abdominal pain, Nausea, Vomiting. Denies: Diarrhea, Melena, Hematochezia Genitourinary: Denies: Dysuria, Hematuria, Frequency Musculoskeletal: Denies: Back pain, Extremity Pain Skin: Denies: Rash, Wounds Neurological: Denies: Headache, Weakness, Numbness Physical Exam Vital Signs/Narrative: Vital Signs Pulse Resp BP Pulse Ox 05/06/20 20:45 87 16 142/76 H 99 Inital Vital Signs reviewed: Yes General: Well nourished, Well developed, No Acute Distress Head: Normocephalic, Atraumatic Eyes: Perrl, EOMI ENT: Moist mucous membranes, No rhinorrhea Neck: Supple, Nontender Cardiovascular: Regular rate, Regular rhythm, No murmurs Respiratory: No distress, CTA bilaterally, Chest nontender Abdomen: Soft, Nondistended, Normal bowel sounds, Tender, - - Epigastric tenderness. No lower quadrant tenderness. Back: Nontender, Normal Inspection Extremities: Nontender, No edema Skin: Normal color, No rash Neurological: Alert, Oriented x3, Cranial nerves II-XII grossly intact, Normal Strength, Normal Sensation Psychological: Normal affect, Normal Mood Diagnostic/Tx/Re-eval Abnormal Lab Results 05/06/20 05/06/20 05/06/20 16:40 18:50 18:50 WBC 7.3 RBC 4.41 Hgb 10.5 L Hct 34.9 L MCV 79.1 L MCH 23.8 L MCHC 30.1 L RDW Std Deviation 41.8 RDW Coeff of Seth 14.6 Plt Count 352 MPV 9.9 Immature Gran % (Auto) 0.300 Neut % (Auto) 65.8 Lymph % (Auto) 25.6 Bailey % (Auto) 5.7 Eos % (Auto) 1.9 Baso % (Auto) 0.7 Absolute Neuts (auto) 4.8 Absolute Lymphs (auto) 1.87 Nucleated RBC % 0 Sodium 139 Potassium 5.0 Chloride 110 H Carbon Dioxide 25.0 Anion Gap 4 L BUN 6 L Creatinine 0.76 Estim Creat Clear Calc 102.71 Est GFR (MDRD) Af Amer 119 Est GFR (MDRD) Non-Af 99 BUN/Creatinine Ratio 7.9 L Glucose 71 L Calcium 9.3 Total Bilirubin 0.30 Direct Bilirubin 0.06 AST 43 H ALT 24 Alkaline Phosphatase 69 Total Protein 8.3 H Albumin 3.9 Globulin 4.4 H Lipase 72 L Serum , Qual Urine Color Yellow Urine Clarity Clear Urine pH 7.0 Ur Specific [place] 1.010 Urine Protein Negative Urine Glucose (UA) Normal Urine Ketones Negative Urine Occult Blood Negative Urine Nitrite Negative Urine Bilirubin Negative Urine Urobilinogen Normal Ur Leukocyte Esterase Negative Urine RBC 0 SEEN Urine WBC 0 SEEN Ur Squamous Epith Cells 0-5 SEEN Urine Bacteria 0 SEEN Urine Mucus 0 SEEN 05/06/20 18:50 WBC RBC Hgb Hct MCV MCH MCHC RDW Std Deviation RDW Coeff of Seth Plt Count MPV Immature Gran % (Auto) Neut % (Auto) Lymph % (Auto) Bailey % (Auto) Eos % (Auto) Baso % (Auto) Absolute Neuts (auto) Absolute Lymphs (auto) Nucleated RBC % Sodium Potassium Chloride Carbon Dioxide Anion Gap BUN Creatinine Estim Creat Clear Calc Est GFR (MDRD) Af Amer Est GFR (MDRD) Non-Af BUN/Creatinine Ratio Glucose Calcium Total Bilirubin Direct Bilirubin AST ALT Alkaline Phosphatase Total Protein Albumin Globulin Lipase Serum , Qual NEGATIVE Urine Color Urine Clarity Urine pH Ur Specific [place] Urine Protein Urine Glucose (UA) Urine Ketones Urine Occult Blood Urine Nitrite Urine Bilirubin Urine Urobilinogen Ur Leukocyte Esterase Urine RBC Urine WBC Ur Squamous Epith Cells Urine Bacteria Urine Mucus Clinical Impression(s) from Imaging Studies Acute Abdomen Series 05/06/20 21:08 IMPRESSION: No demonstrated acute or significant process of the chest, abdomen, and pelvis. Electronically Signed: Amandeep Mcdonald MD at 22:17 EDT , Service support , - Medical Decision Making Patient presents with epigastric pain and reported hematemesis. Treated with Pepcid, Zofran, GI cocktail. Abdominal labs all normal. White count normal hemoglobin better than it was 3 days ago. Lipase liver enzymes all normal. Reevaluation she continues to complain of epigastric pain, she given a dose of morphine, abdominal series ordered to rule out any potential free air. This returned negative and also reviewed by myself. She had no emesis while in the ED. I do not feel more advanced imagings are necessary at this time. She will be placed on a PPI and Carafate. She has follow-up with the surgeon Dr. Amezcua for colonoscopy. Discussed to call the office for potential adding on the EGD if needed. She has a follow-up with orthopedics for her iliopsoas bursitis from her CTs. Discharge with outpatient follow-up. Signs and symptom discussed return. ED Disposition - Plan for ED Patient: Disposition: Home or Assisted Living Diagnosis: Gastritis Instructions: ED Gastritis Prescriptions: Sucralfate [Carafate] 1 gm PO 4X/DAY #60 tab Transmission Status: Pending to [facility] Omeprazole 40 mg PO DAILY #30 capsule.dr Transmission Status: Pending to [facility] proMETHazine tablet [Phenergan] 25 mg PO Q6H PRN PRN #10 tab PRN Reason: Nausea Transmission Status: Pending to [facility] Referrals: Wen Amezcua MD [STAFF PHYSICIAN] - Keep [facility] appointment
[2020-05-06 22:58] VITALS: BP 120/82; RESP 16
== END 2020-05-06 23:00 | disposition home or self-care (01) ==
PROVIDERS: Emergency Provider Emergency Medicine; PCP Family Medicine
DX: K29.70 Gastritis, unspecified, without bleeding (principal); F41.9 Anxiety disorder, unspecified; F31.9 Bipolar disorder, unspecified; Z90.49 Acquired absence of other specified parts of digestive tract; Z79.899 Other long term (current) drug therapy; Z87.891 Personal history of nicotine dependence
CPT/HCPCS: 74022; 80048; 80076; 81001; 83690; 84703; 85025; 96361; 96374; 96375; 99283; J7030; A4216; J3490

== ENCOUNTER 2020-05-10 15:25 | Emergency (ER) | payer MEDICAID, SELFPAY ==
[2020-05-10 15:25] VITALS: BP 225/206; PULSE 96; RESP 18; TEMP 36.4; O2SAT 100; BMI 32.6
--- NOTE | 2020-05-10 15:57 | US_ITS ---
STUDY: ULTRASOUND OF THE FEMALE PELVIS - COMPLETE REASON FOR EXAM: Female, 24 years old. SEVERE PELVIC PAIN LMP: 03/26/2020 TECHNIQUE: Transvaginal TECHNICAL QUALITY: Adequate. COMPARISON: 02/11/2020 FINDINGS: The uterus is retroverted and is in a midline position. The uterus measures 6.8 x 6.8 x 5.0 cm. There is a Nabothian cyst of the cervix. The endometrium measures 19 mm in thickness, and is hypoechoic. There is no demonstrated endometrial mass. There is no demonstrated myometrial mass. I.U.D. - The patient does not have an I.U.D. The right ovary is visualized. The right ovary measures 7.1 x 4.0 x 3.1 cm. Complex right ovary cyst measuring 3.1 x 2.5 x 2.4 cm. There is no visualized right adnexal mass or complex lesion. There is normal arterial and normal venous vascularity. The left ovary is visualized. The left ovary measures 4.3 x 3.1 x 2.2 cm. There is no left ovarian cyst or ovarian mass. There is no visualized left adnexal mass or complex lesion. There is normal arterial and normal venous vascularity. There is a moderate amount of fluid in the cul-de-sac. Polycystic ovary disease: No. US/Transvaginal Non- IMPRESSION: Enlarged right ovary without evidence of underlying torsion. Complex right ovary cyst measuring 3.1 x 2.5 x 2.4 cm. Moderate free pelvic fluid. Electronically Signed: Kai Villa MD at 18:00 EDT Tel , Service support ,
--- NOTE | 2020-05-10 16:01 | ED.VIS.GEN ---
History of Present Illness Chief Complaint: Abd Pain Informant: Patient Narrative: 24-year-old female presenting for acute onset right adnexal pain. She states it started about an hour ago. It is 10 of 10 on the pain scale. She was given fentanyl by squad and states that she is still in excruciating pain. She had does have a history of ovarian cysts but she states this feels different. She does not have any concern for . She has no urinary or vaginal complaints. She has no changes in bowel movements. She states that she has previously had colitis which also feels different as well as previously had an ex lap f determine if she had endometriosis which was negative. States otherwise she is not had fever, chills. She is currently nauseous but she states it secondary to pain. - Past Medical History (1) Bipolar disorder Status: Chronic Past Medical History - Allergies and Home Meds Allergies/Adverse Reactions: Allergies codeine Allergy (Verified 05/06/20 16:29) Rash latex Allergy (Verified 05/06/20 16:29) Rash ondansetron [From Zofran] Allergy (Verified 05/06/20 16:29) Rash Primary Care Physician: Ran Johnson DO [Primary Care Provider] - Past Medical History: - - Ovarian cysts, colitis Surgical History: cholecystectomy, - - Bilateral tubal ligation, ex lap with duodenal cyst removal Lives: Alone Smoking Status: Former smoker Alcohol: None Drugs: None Review of Systems General: Denies: Chills, Fever, Sweats Eyes: Denies: Visual changes - bilaterally, Diplopia ENT: Denies: Rhinorrhea, Sore throat Cardiovascular: Denies: Chest pain, Palpitations Respiratory: Denies: Dyspnea, Cough, Dyspnea on exertion Gastrointestinal: Reports: Abdominal pain - Lower abdominal pain in the right adnexal region, Nausea. Denies: Vomiting, Diarrhea, Constipation Genitourinary: Denies: Dysuria, Hematuria Musculoskeletal: Denies: Myalgias, Arthralgias Skin: Denies: Rash, Abscess Neurological: Denies: Headache, Weakness Physical Exam Vital Signs/Narrative: Vital Signs Temp Pulse Resp BP Pulse Ox 05/10/20 15:25 97.6 F L 96 18 225/206 H 100 Inital Vital Signs reviewed: Yes General: Well nourished, Acute Distress, - - Peers to be in pain and holding right pelvic region. Head: Normocephalic, Atraumatic Eyes: Perrl, EOMI ENT: Moist mucous membranes, No rhinorrhea Cardiovascular: Regular rate, Regular rhythm Respiratory: No distress, CTA bilaterally Abdomen: Soft, Nondistended, Tender - Is to palpation in the right adnexal region. Back: Negative for: Nontender, Normal Inspection Extremities: Negative for: Nontender, No edema Skin: Negative for: Normal color, No rash Neurological: Alert, Oriented x3 Psychological: Tearful Diagnostic/Tx/Re-eval Clinical Impression(s) from Imaging Studies Transvaginal US 05/10/20 15:57 IMPRESSION: Enlarged right ovary without evidence of underlying torsion. Complex right ovary cyst measuring 3.1 x 2.5 x 2.4 cm. Moderate free pelvic fluid. Electronically Signed: Kai Villa MD at 18:00 EDT Tel , Service support , Abdomen/Pelvis CT 05/10/20 18:05 IMPRESSION: 3.1 x 2.6 cm right ovary cyst. Moderate amount of blood products in the pelvis. No evidence of appendicitis, acute intestinal pathology, or acute obstructive uropathy. Small cyst in the right iliac''s muscle. Electronically Signed: Kai Villa MD at 19:18 EDT Tel , Service support , ADDENDUM: 05/10/20 1930 IMPRESSION: 3.1 x 2.6 cm right ovary cyst. Moderate amount of blood products in the pelvis. No evidence of appendicitis, acute intestinal pathology, or acute obstructive uropathy. Small cyst in the right iliac''s muscle. N.B. : The above information has been verbally conveyed by Kai Villa MD to Arvin Blum DO, DO on 05/10/2020 19:23:29 (ET). Electronically Signed: Kai Villa MD at 19:18 EDT Tel , Service support , Laboratory Data 05/10/20 05/10/20 05/10/20 15:43 15:43 15:43 WBC 12.9 H RBC 4.65 Hgb 11.1 L Hct 38.0 MCV 81.7 MCH 23.9 L MCHC 29.2 L RDW Std Deviation 43.5 RDW Coeff of Seth 14.8 H Plt Count 397 MPV 9.6 Immature Gran % (Auto) 0.300 Neut % (Auto) 80.6 H Lymph % (Auto) 12.0 L [place] % (Auto) 5.0 Eos % (Auto) 1.7 Baso % (Auto) 0.4 Absolute Neuts (auto) 10.4 H Absolute Lymphs (auto) 1.55 Nucleated RBC % 0 Sodium 139 Potassium 3.7 Chloride 109 H Carbon Dioxide 21.0 Anion Gap 9 BUN 14 Creatinine 0.92 Estim Creat Clear Calc 84.85 Est GFR (MDRD) Af Amer 96 Est GFR (MDRD) Non-Af 79 BUN/Creatinine Ratio 15.2 Glucose 98 Lactic Acid Calcium 9.6 Total Bilirubin 0.30 AST 14 L ALT 20 Alkaline Phosphatase 74 Total Protein 8.8 H Albumin 4.2 Globulin 4.6 H Albumin/Globulin Ratio 0.9 Serum , Qual NEGATIVE Urine Color Urine Clarity Urine pH Ur Specific [place] Urine Protein Urine Glucose (UA) Urine Ketones Urine Occult Blood Urine Nitrite Urine Bilirubin Urine Urobilinogen Ur Leukocyte Esterase Urine RBC Urine WBC Ur Squamous Epith Cells Urine Bacteria Urine Mucus 05/10/20 05/10/20 16:20 16:25 WBC RBC Hgb Hct MCV MCH MCHC RDW Std Deviation RDW Coeff of Seth Plt Count MPV Immature Gran % (Auto) Neut % (Auto) Lymph % (Auto) [place] % (Auto) Eos % (Auto) Baso % (Auto) Absolute Neuts (auto) Absolute Lymphs (auto) Nucleated RBC % Sodium Potassium Chloride Carbon Dioxide Anion Gap BUN Creatinine Estim Creat Clear Calc Est GFR (MDRD) Af Amer Est GFR (MDRD) Non-Af BUN/Creatinine Ratio Glucose Lactic Acid 1.9 Calcium Total Bilirubin AST ALT Alkaline Phosphatase Total Protein Albumin Globulin Albumin/Globulin Ratio Serum , Qual Urine Color Yellow Urine Clarity Clear Urine pH 8.0 Ur Specific [place] 1.015 Urine Protein 15 H Urine Glucose (UA) Normal Urine Ketones Negative Urine Occult Blood Negative Urine Nitrite Negative Urine Bilirubin Negative Urine Urobilinogen Normal Ur Leukocyte Esterase 25 H Urine RBC 0 SEEN Urine WBC 0-5 SEEN Ur Squamous Epith Cells 5-10 SEEN Urine Bacteria 2+ Urine Mucus 0 SEEN - Medical Decision Making Patient presents with right adnexal pain. Initially had concern for ovarian torsion. Get a transvaginal ultrasound which did not identify a torsion but she does have a small cyst in this area. Patient required multiple doses of pain medication because she stated that continued to hurt. At this point I did do a CT abdomen pelvis with IV contrast which showed that this might be a small hemorrhagic cyst. Hemoglobin is actually higher than before. She has a small leukocytosis at 12.9 serum is negative. BMP is unremarkable. I spoke with her [facility] ADMINISTRATOR who reviewed the imaging and felt the patient was stable for discharge home. She recommended no narcotics for the patient. Patient was counseled on NSAIDs and follow-up with [facility] AD[employer]. She is amenable to this plan. He is given return precautions. Impression: #1 hemorrhagic ovarian cyst ED Disposition - Plan for ED Patient: Disposition: Home or Assisted Living Instructions: ED Cyst Ovarian Referrals: Ran Johnson DO [Primary Care Provider] -
[2020-05-10] MEDS: Morphine 4 MG/ML Syringe IV (16:17)
[2020-05-10] MEDS: 0.9% Normal Saline 1,000 ML 1000 ML IV (16:17)
[2020-05-10] MEDS: proMETHazine 25 MG/ML Syringe 12.5 MG IM (16:18)
[2020-05-10 16:39] LABS: Absolute Lymphocyte Count 1.55 X10^3/uL (0.83-4.51); Absolute Neutrophil Count 10.4 X10^3/uL (2.0-7.7); Basophil# 0.05 X10^3/uL; Basophil% 0.4 % (0-1); Eosinophil# 0.22 X10^3/uL; Eosinophils% 1.7 % (0-5); Hemoglobin 11.1 g/dL (12.0-15.0); Lymphocyte # 1.55 X10^3/ul (4.0); Mean Corp Hgb Conc 29.2 g/dL (32-36); Mean Corpuscular Hgb 23.9 pg (27.0-32.0); Mean Corpuscular Volume 81.7 fL (81-99); Mean Platelet Vol. 9.6 fl (6.2-12.0); Monocyte# 0.64 X10^3/uL; NRBC Flagged by Analyzer 0 % (0-5); Neutrophil # 10.37 X10^3/uL (2.7-7.7); Neutrophil % 80.6 % (47-70); Platelet Count 397 K/mm3 (150-450); RBC Distribution Width CV 14.8 % (11.6-14.6); RBC Distribution Width SD 43.5 fl (35.1-43.9); Red Blood Count 4.65 M/mm3 (4.2-5.4); White Blood Count 12.9 K/mm3 (4.4-11.0)
[2020-05-10 16:40] LABS: ALB/GLOB Ratio 0.9 RATIO (0.9-2.4); AST(SGOT) 14 U/L (15-37); Alanine Aminotransfer ALT/SGPT 20 U/L (13-56); Albumin, Serum 4.2 g/dL (3.2-5.0); Alkaline Phosphatase 74 U/L (45-117); Anion Gap 9 (5-15); BUN 14 mg/dL (7-18); BUN/Creat Ratio 15.2 RATIO (10-20); Calcium,Total 9.6 mg/dL (8.5-10.1); Chloride 109 mmol/L (98-107); Creatinine, Serum 0.92 mg/dL (0.55-1.02); EST Glomerular Filtration Rate 79 mL/min (>60); Est Glom Filt Rate - Afr Amer 96 mL/min (>60); Estimated Creatinine Clearance 84.85 ml/min; Globulin 4.6 g/dL (2.2-4.2); Glucose 98 mg/dL (74-106); Internal QC Validated? YES +Cl - CLEAR BKGD; Potassium 3.7 mmol/L (3.5-5.1); Pregnancy, Serum, hCG Quali. NEGATIVE Negative; Protein, Total 8.8 g/dL (6.4-8.2); Sodium Level 139 mmol/L (136-145)
[2020-05-10 16:42] LABS: Mucous, Urine 0 SEEN /hpf (<or=2+); Red Blood Cells-Urine 0 SEEN /hpf (0-5)
[2020-05-10 16:53] LABS: Color, Urine Yellow (Yellow); Glucose, Dipstick Normal (Normal); Ketone-Dipstick Negative (Negative); Leukocyte Esterase-Dipstick 25 /ul (Negative); Nitrite-Dipstick Negative (Negative); Occult Blood-Urine Negative /ul (Negative); Protein-Dipstick 15 mg/dl (Negative); Specific Gravity, Urine 1.015 (1.002-1.030); Urine Bilirubin Dipstick Negative (Negative); Urine Clarity Clear (Clear); Urine Urobilinogen Normal (Normal)
[2020-05-10 17:14] LABS: Lactic Acid 1.9 mmol/L (0.4-1.9)
[2020-05-10 17:17] LABS: Bacteria 2+ /hpf (None Seen); Squamous Epithelial Cells - UA 5-10 SEEN /hpf (5-10); White Blood Cells 0-5 SEEN /hpf (0-5)
--- NOTE | 2020-05-10 18:05 | CT_ITS ---
We are attempting to reach an attending provider to discuss findings. An addendum with communication details will be sent when the communication is complete. STUDY: CT ABDOMEN AND PELVIS WITHOUT CONTRAST REASON FOR EXAM: Female, 24 years old. LOW ABD/PELVIC PAIN. Prior cholecystectomy. Hx of asthma RADIATION DOSAGE (If Supplied By Facility): CTDIvol = ( 14.32 ) mGy, DLP = ( 792.14 ) mGycm TECHNIQUE: Transaxial images were obtained from the dome of the diaphragm to the symphysis pubis without oral contrast, and without intravenous contrast. Sagittal and coronal images were reconstructed. Individualized dose optimization techniques were used for this CT. COMPARISON: 05/04/2020 FINDINGS: The visualized lung bases are unremarkable. The visualized portions of the heart are within normal limits. There is decreased attenuation of the liver consistent with steatosis. There are surgical clips in the gallbladder fossa consistent with a prior cholecystectomy. Dropped clip near the right kidney. Normal spleen. Normal pancreas. Normal bilateral adrenal glands. Normal right kidney. Normal left kidney. Normal visualized stomach. Normal small intestine. Normal colon. The appendix is visualized and appears normal. Normal abdominal aorta. Normal inferior vena cava. Normal retroperitoneum. Normal urinary bladder. 3.1 x 2.6 cm right ovary cyst. Moderate amount of blood products in the pelvis. Umbilical fat hernia. Normal osseous structures. Stable 2.5 cm cyst at the level of the right iliacus muscle on image [address]/Abdomen/Pelvis W IV Cont ONLY IMPRESSION: 3.1 x 2.6 cm right ovary cyst. Moderate amount of blood products in the pelvis. No evidence of appendicitis, acute intestinal pathology, or acute obstructive uropathy. Small cyst in the right iliac''s muscle. Electronically Signed: Kai Villa MD at 19:18 EDT Tel , Service support ,
[2020-05-10 18:52] VITALS: BP 119/68; PULSE 92; RESP 16; O2SAT 100
[2020-05-10] MEDS: HYDROmorphone 1 MG/ML Syringe IV (19:20)
[2020-05-10] MEDS: Ketorolac 15 MG/ML Vial IM (19:31)
[2020-05-10 20:04] VITALS: BP 113/76; PULSE 81; RESP 16; O2SAT 100
--- NOTE | 2020-05-10 20:06 | ED.RN ---
REVIEWED D/C INSTRUCTIONS, FOLLOW UP CARE, AND S/S THAT WOULD WARRANT A RETURN TO THE ED WITH PT. PT VERBALIZED AN UNDERSTANDING AND DENIES FURTHER QUESTIONS FOR THIS RN. PT SKIN P/W/D, RESP EVEN AND UNLABORED, PT A&O X 3, NO DISTRESS NOTED. PT AMBULATED OUT OF ED, GAIT STEADY.
== END 2020-05-10 20:07 | disposition home or self-care (01) ==
PROVIDERS: Emergency Provider Student in an Organized Health Care Education/Training Program; PCP Family Medicine
DX: N83.201 Unspecified ovarian cyst, right side (principal); F31.9 Bipolar disorder, unspecified; Z87.19 Personal history of other diseases of the digestive system; Z90.49 Acquired absence of other specified parts of digestive tract; Z79.899 Other long term (current) drug therapy
CPT/HCPCS: 74177; 76830; 80053; 81001; 83605; 84703; 85025; 93976; 96361; 96372; 96374; 96375; 99285; J7030; Q9967; A4216

== ENCOUNTER 2020-07-11 18:03 | Emergency (ER) | payer MEDICAID, SELFPAY ==
[2020-07-11 18:03] VITALS: BP 102/67; PULSE 68; RESP 16; TEMP 36.6; O2SAT 96; BMI 32.4
--- NOTE | 2020-07-11 18:15 | CT_ITS ---
STUDY: CT ABDOMEN AND PELVIS WITH CONTRAST REASON FOR EXAM: Female, 24 years old. ABDOMINAL PAIN WITH BLOODY STOOL. RADIATION DOSAGE (If Supplied By Facility): CTDIvol = ( 14.645 ) mGy, DLP = ( 831.36 ) mGycm TECHNIQUE: Transaxial images were obtained from the dome of the diaphragm to the symphysis pubis without oral contrast. Oral and amp; IV Gastrografin and amp; 100mL Isovue-300 was administered. Sagittal and coronal images were reconstructed. Individualized dose optimization techniques were used for this CT. COMPARISON: 05/10/2020 FINDINGS: The visualized lung bases are unremarkable. The visualized portions of the heart are within normal limits. Normal liver. There are surgical clips in the gallbladder fossa consistent with a prior cholecystectomy. Normal spleen. Normal pancreas. Normal bilateral adrenal glands. Mild right hydroureteronephrosis without evidence of obstructing stone or other focal lesion. Normal left kidney. Normal visualized stomach. Normal small intestine. Questionable hyperenhancement and thickening of the cecum wall. There is non-visualization of the appendix. Normal abdominal aorta. Normal inferior vena cava. Normal retroperitoneum. Normal urinary bladder. Prominent uterus and bilateral adnexa. Left corpus luteum cyst. Reidentified Low-attenuation within the musculature around the right hip/iliacus muscle may indicate a cyst. Normal osseous structures. CT/Abdomen/Pelvis W IV Cont ONLY IMPRESSION: Mild right hydronephrosis without evidence of obstructing stone or other obstructing lesion. Questionable hyperenhancement and thickening of the wall of the cecum may indicate an acute infectious or inflammatory process as clinically indicated. Cholecystectomy. Electronically Signed: Julio Cesar Jeff, at 20:27 EST Tel , Service support ,
--- NOTE | 2020-07-11 18:16 | ED.DCSUM_ITS ---
History of Present Illness Chief Complaint: Abd Pain Informant: Patient - Abdominal Pain/Flank Pain Onset: Today Context: Gradual Onset Timing: Continuous Quality: Aching Location: Epigastric - Radiation a little straight through in the back Current Severity: Severe Maximum Severity: Severe Worsened by: Nothing Relieved by: Nothing - Nausea/Vomiting/Emesis GI Symptom: Nausea. Negative for: Vomiting - Diarrhea/Melena/Hematochezia GI Symptom: Diarrhea, Hematochezia. Negative for: Melena Stool Quality: ROBSON per rectum. Negative for: Black, Maroon Episodes: 1 - A large amount of blood per patient Associated Symptoms: Negative for: Dysuria, Frequency, Hematuria, Urgency Narrative: Patient started having discomfort this morning, it has gradually worsened and has become very severe along with an episode of bloody diarrhea. The pain reminds her of when she had pancreatitis, given its location, severity, radiation. She states that she remotely had her gallbladder removed because of stones, and simultaneously they removed something off of her intestine, she is not sure what it was. 2 or 3 months later she had an episode of pancreatitis, she states this was all done in [place], she does not know why she had the pancreatitis and she states the physicians were unsure, but she does not drink a lcohol now or then at all. No recent travel out of the area. Patient presents during the national coronavirus emergency declaration/pandemic. She denies any known contact with anyone infected with COVID-19. She denies traveling out of the immediate area recently. Patient also states that she had a colonoscopy remotely by one of the local general surgeons and was told as a result that it looked like ulcerative colitis. She has not seen any other specialist including gastroenterology since then, and is on no medication for ulcerative colitis. She states she does not usually have blood in her stool. Prior similar symptoms: Yes - Similar to pancreatitis-related pain Recent Illness/Hospitalization: No - Past Medical History (1) Bipolar disorder Status: Chronic (2) History of anxiety Status: Chronic Past Medical History - Allergies and Home Meds Allergies/Adverse Reactions: Allergies codeine Allergy (Verified 07/11/20 18:05) Rash latex Allergy (Verified 07/11/20 18:05) Rash Primary Care Physician: Ran Johnson DO [Primary Care Provider] - Surgical History: cholecystectomy, - - Bilateral tubal ligation, ex lap with duodenal cyst removal Smoking Status: Former smoker Alcohol: None Review of Systems General: Denies: Chills, Fever, Sweats Eyes: Denies: Visual changes - bilaterally, Diplopia ENT: Reports: - - No loss of taste/smell. Denies: Rhinorrhea, Sore throat Cardiovascular: Denies: Chest pain, Palpitations Respiratory: Denies: Dyspnea, Cough, Dyspnea on exertion Gastrointestinal: Reports: Abdominal pain, Nausea, Diarrhea, Hematochezia. Denies: Vomiting, Melena Genitourinary: Denies: Dysuria, Hematuria, Frequency Musculoskeletal: Reports: Back pain. Denies: Myalgias, Extremity Pain Skin: Denies: Rash, Wounds Neurological: Denies: Headache, Weakness, Numbness Physical Exam Vital Signs/Narrative: Vital Signs Temp Pulse Resp BP Pulse Ox 07/11/20 18:03 98 F 68 16 102/67 96 Inital Vital Signs reviewed: Yes General: Well nourished, Well developed, Acute Distress - Mild, painful Head: Normocephalic, Atraumatic Eyes: Perrl, EOMI ENT: Moist mucous membranes, No rhinorrhea Neck: Supple, Nontender Cardiovascular: Regular rate, Regular rhythm, No murmurs Respiratory: No distress, CTA bilaterally, Chest nontender Abdomen: Soft, Nondistended, Normal bowel sounds, No masses, Tender - E pigastrium, and throughout left side very tender, Guarding - Epigastrium only, Rebound tenderness - Diffusely Back: Nontender, Normal Inspection. Negative for: CVA tenderness Extremities: Nontender, No edema Skin: Normal color, No rash Neurological: Alert, Oriented x3, Cranial nerves II-XII grossly intact, Normal Strength, Normal Sensation Psychological: Normal Mood, Tearful Diagnostic/Tx/Re-eval Impressions Abdomen/Pelvis CT 07/11/20 18:15 IMPRESSION: Mild right hydronephrosis without evidence of obstructing stone or other obstructing lesion. Questionable hyperenhancement and thickening of the wall of the cecum may indicate an acute infectious or inflammatory process as clinically indicated. Cholecystectomy. Electronically Signed: Julio Cesar Jeff, at 20:27 EST Tel , Service support , 07/11/20 18:15 Abdomen/Pelvis W IV Cont ONLY [CT] Stat Laboratory Results 07/11/20 07/11/20 07/11/20 18:30 18:30 18:30 WBC 6.9 RBC 4.38 Hgb 10.8 L Hct 34.2 L MCV 78.1 L MCH 24.7 L MCHC 31.6 L RDW Std Deviation 44.9 H RDW Coeff of Esth 15.9 H Plt Count 372 MPV 9.7 Immature Gran % (Auto) 0.100 Neut % (Auto) 63.2 Lymph % (Auto) 28.3 [place] % (Auto) 6.4 Eos % (Auto) 1.3 Baso % (Auto) 0.7 Absolute Neuts (auto) 4.3 Absolute Lymphs (auto) 1.94 Nucleated RBC % 0 Sodium 141 Potassium 3.6 Chloride 110 H Carbon Dioxide 21.0 Anion Gap 10 BUN 13 Creatinine 0.94 Estim Creat Clear Calc 83.04 Est GFR (MDRD) Af Amer 94 Est GFR (MDRD) Non-Af 78 BUN/Creatinine Ratio 13.9 Glucose 96 Calcium 9.5 Total Bilirubin 0.30 AST 14 L ALT 21 Alkaline Phosphatase 69 Total Protein 8.4 H Albumin 4.3 Globulin 4.1 Albumin/Globulin Ratio 1.0 Lipase 122 Serum , Qual NEGATIVE Urine Color Urine Clarity Urine pH Ur Specific [place] Urine Protein Urine Glucose (UA) Urine Ketones Urine Occult Blood Urine Nitrite Urine Bilirubin Urine Urobilinogen Ur Leukocyte Esterase Urine RBC Urine WBC Ur Squamous Epith Cells Urine Bacteria Urine Mucus 07/11/20 19:45 WBC RBC Hgb Hct MCV MCH MCHC RDW Std Deviation RDW Coeff of Seth Plt Count MPV Immature Gran % (Auto) Neut % (Auto) Lymph % (Auto) [place] % (Auto) Eos % (Auto) Baso % (Auto) Absolute Neuts (auto) Absolute Lymphs (auto) Nucleated RBC % Sodium Potassium Chloride Carbon Dioxide Anion Gap BUN Creatinine Estim Creat Clear Calc Est GFR (MDRD) Af Amer Est GFR (MDRD) Non-Af BUN/Creatinine Ratio Glucose Calcium Total Bilirubin AST ALT Alkaline Phosphatase Total Protein Albumin Globulin Albumin/Globulin Ratio Lipase Serum , Qual Urine Color Yellow Urine Clarity Clear Urine pH 7.0 Ur Specific [place] 1.005 Urine Protein Negative Urine Glucose (UA) Normal Urine Ketones 5 H Urine Occult Blood Negative Urine Nitrite Negative Urine Bilirubin Negative Urine Urobilinogen Normal Ur Leukocyte Esterase 25 H Urine RBC 0 SEEN Urine WBC 0 SEEN Ur Squamous Epith Cells 0-5 SEEN Urine Bacteria 1+ Urine Mucus 0 SEEN - Medical Decision Making Although very tearful and with a fairly concerning exam, CT scan is fairly unremarkable, as is her white blood count which is 6.9 without shift. In my o harsha, in context with a colonoscopy 2 months ago that showed possible ulcerative colitis, this is consistent with a possible UC flare. I think it would be reasonable to treat her as an outpatient with a course of steroids, she is also requesting something for pain I will give her a short course of [place], and gastroenterology to follow-up with. She is much better objectively on reexamination, although she still has spasms of discomfort in her epigastric area. The possible wall thickening in the area of the cecum may or may not be related, the appendix was not visualized and there is no inflammatory changes in the mesentery here to suggest appendicitis, nor is she tender in that area at all. ED Disposition - Plan for ED Patient: Disposition: Home or Assisted Living Diagnosis: Acute ulcerative colitis Instructions: ED Ulcerative Colitis Prescriptions: Prednisone [Deltasone] 40 mg PO DAILY #12 tab Transmission Status: Pending to [facility]ATH[facility] Hydrocodone Bitart/Apap 5-325 [[place] 5MG-325MG] 1 tablet PO Q4H PRN PRN 2 Days #10 tablet PRN Reason: Pain Transmission Status: Received by [facility] Referrals: Ran Johnson DO [Primary Care Provider] - (Discuss gastroenterology referral as needed) Ananda Odonnell MD [NON-STAFF] - (may call for GI appt) Jeffrey Lewis MD [CONSULTING PHYSICIAN] - (may call for GI appt)
[2020-07-11] MEDS: 0.9% Normal Saline 1,000 ML 1000 ML IV (18:36)
[2020-07-11] MEDS: Ondansetron 4 MG/2 ML Vial IV (18:37)
[2020-07-11] MEDS: Morphine 4 MG/ML Syringe IV ×2 (18:39→19:21)
[2020-07-11 18:46] LABS: Absolute Lymphocyte Count 1.94 X10^3/uL (0.83-4.51); Absolute Neutrophil Count 4.3 X10^3/uL (2.0-7.7); Basophil# 0.05 X10^3/uL; Basophil% 0.7 % (0-1); Eosinophil# 0.09 X10^3/uL; Eosinophils% 1.3 % (0-5); Hematocrit 34.2 % (37-47); Hemoglobin 10.8 g/dL (12.0-15.0); Lymphocyte # 1.94 X10^3/ul (4.0); Lymphocyte % 28.3 % (19-41); Mean Corp Hgb Conc 31.6 g/dL (32-36); Mean Corpuscular Hgb 24.7 pg (27.0-32.0); Mean Corpuscular Volume 78.1 fL (81-99); Mean Platelet Vol. 9.7 fl (6.2-12.0); Monocyte# 0.44 X10^3/uL; Monocyte% 6.4 % (0-10); NRBC Flagged by Analyzer 0 % (0-5); Neutrophil # 4.32 X10^3/uL (2.7-7.7); Neutrophil % 63.2 % (47-70); Platelet Count 372 K/mm3 (150-450); RBC Distribution Width CV 15.9 % (11.6-14.6); RBC Distribution Width SD 44.9 fl (35.1-43.9); Red Blood Count 4.38 M/mm3 (4.2-5.4); White Blood Count 6.9 K/mm3 (4.4-11.0)
[2020-07-11] MEDS: DiphenhydrAMINE 50 MG/ML Syringe 25 MG IV (18:46)
[2020-07-11 18:55] LABS: Internal QC Validated? YES +Cl - CLEAR BKGD; Pregnancy, Serum, hCG Quali. NEGATIVE Negative
[2020-07-11 19:00] VITALS: BP 114/80; PULSE 92; RESP 18; TEMP 36.8; O2SAT 96
[2020-07-11 19:02] LABS: AST(SGOT) 14 U/L (15-37); Alanine Aminotransfer ALT/SGPT 21 U/L (13-56); Albumin, Serum 4.3 g/dL (3.2-5.0); Alkaline Phosphatase 69 U/L (45-117); Anion Gap 10 (5-15); BUN 13 mg/dL (7-18); BUN/Creat Ratio 13.9 RATIO (10-20); Calcium,Total 9.5 mg/dL (8.5-10.1); Chloride 110 mmol/L (98-107); Creatinine, Serum 0.94 mg/dL (0.55-1.02); EST Glomerular Filtration Rate 78 mL/min (>60); Est Glom Filt Rate - Afr Amer 94 mL/min (>60); Estimated Creatinine Clearance 83.04 ml/min; Globulin 4.1 g/dL (2.2-4.2); Glucose 96 mg/dL (74-106); Lipase 122 U/L (73-393); Potassium 3.6 mmol/L (3.5-5.1); Protein, Total 8.4 g/dL (6.4-8.2); Sodium Level 141 mmol/L (136-145)
[2020-07-11] MEDS: Metoclopramide 10 MG/2 ML Vial 5 MG IV (19:18)
[2020-07-11 19:54] LABS: Mucous, Urine 0 SEEN /hpf (<or=2+); Red Blood Cells-Urine 0 SEEN /hpf (0-5); White Blood Cells 0 SEEN /hpf (0-5)
[2020-07-11] MEDS: Ketorolac 15 MG/ML Vial IV (19:57)
[2020-07-11 20:23] LABS: Color, Urine Yellow (Yellow); Glucose, Dipstick Normal (Normal); Ketone-Dipstick 5 mg/dl (Negative); Leukocyte Esterase-Dipstick 25 /ul (Negative); Nitrite-Dipstick Negative (Negative); Occult Blood-Urine Negative /ul (Negative); Protein-Dipstick Negative (Negative); Specific Gravity, Urine 1.005 (1.002-1.030); Urine Bilirubin Dipstick Negative (Negative); Urine Clarity Clear (Clear); Urine Urobilinogen Normal (Normal)
[2020-07-11 20:35] LABS: Bacteria 1+ /hpf (None Seen); Squamous Epithelial Cells - UA 0-5 SEEN /hpf (5-10)
[2020-07-11] MEDS: HYDROcodone Bitartrate/Apap 5/325 Tablet PO (21:05)
[2020-07-11] MEDS: MethylPREDNISolone 125 MG/2 ML Vial IV (21:06)
[2020-07-11 21:08] VITALS: BP 108/76; PULSE 78; RESP 16; O2SAT 98
== END 2020-07-11 21:20 | disposition home or self-care (01) ==
PROVIDERS: Emergency Provider Emergency Medicine; PCP Family Medicine
DX: K51.90 Ulcerative colitis, unspecified, without complications (principal); F31.9 Bipolar disorder, unspecified; Z87.19 Personal history of other diseases of the digestive system; Z90.49 Acquired absence of other specified parts of digestive tract; Z87.891 Personal history of nicotine dependence
CPT/HCPCS: 74177; 80053; 81001; 83690; 84703; 85025; 96361; 96374; 96375; 99284; J7030; Q9967; A4216; J2405

== ENCOUNTER 2020-07-17 03:42 | Emergency (ER) | payer MEDICAID, SELFPAY ==
[2020-07-17 03:42] VITALS: PULSE 115; RESP 17; TEMP 36.6; O2SAT 99; BMI 31.2
[2020-07-17 03:48] VITALS: BP 113/73
[2020-07-17 03:51] VITALS: BP 113/73; PULSE 115; RESP 17; TEMP 36.6; O2SAT 99
--- NOTE | 2020-07-17 03:53 | ED.VIS.GEN ---
History of Present Illness Chief Complaint: Abd Pain Informant: Patient Narrative: Stated that she is here for persistent symptoms. She was seen here approximately a week ago for epigastric abdominal pain. She stated it is persistent. It starts in the epigastrium and radiates down into the lower abdomen. Current severity is mild to moderate. She took a [place] tonight with minimal relief of symptoms. She has had some intermittent vomiting. She is noticed some intermittent blood in her loose stool. She states she has a history of diagnosed colitis on a remote colonoscopy. She is not on any treatment for colitis. Dr. Hidalgo did a CAT scan which showed questionable cecal thickening and was placed on steroids. She continues the steroids at this time. She stated they do not seem to be helping much. She is here for further evaluation. She has had multiple visits for abdominal pain and reported GI bleeding in the past. This is her eighth visit this year - Past Medical History (1) Decreased movement during in third trimester, antepartum Status: Acute (2) Risk of labor in second trimester Status: Acute (3) Short interval between pregnancies affecting in second trimester, antepartum Status: Acute (4) Vaginal discharge during in third trimester Status: Acute (5) Bipolar disorder Status: Chronic (6) History of anxiety Status: Chronic (7) Tobacco use disorder affecting in second trimester, antepartum Status: Resolved Past Medical History - Allergies and Home Meds Allergies/Adverse Reactions: Allergies codeine Allergy (Verified 07/17/20 03:48) Rash latex Allergy (Verified 07/17/20 03:48) Rash Primary Care Physician: Ran Johnson DO [Primary Care Provider] - Prior records reviewed: Yes Past Medical History: - - See problem list Surgical History: cholecystectomy, - - Bilateral tubal ligation, ex lap with duodenal cyst removal Lives: With Family Smoking Status: Current every day smoker Alcohol: None Drugs: None Review of Systems General: Denies: Chills, Fever, Sweats Eyes: Denies: Visual changes - bilaterally, Diplopia ENT: Denies: Rhinorrhea, Sore throat Cardiovascular: Denies: Chest pain, Palpitations Respiratory: Denies: Dyspnea, Cough, Dyspnea on exertion Gastrointestinal: Reports: Abdominal pain, Nausea, Vomiting, Diarrhea, Hematochezia. Denies: Melena Genitourinary: Denies: Dysuria, Hematuria, Frequency Musculoskeletal: Denies: Back pain, Extremity Pain Skin: Denies: Rash, Wounds Neurological: Denies: Headache, Weakness, Numbness Physical Exam Vital Signs/Narrative: Vital Signs Temp Pulse Resp BP Pulse Ox 07/17/20 03:51 97.9 F 115 H 17 113/73 99 07/17/20 03:48 113/73 07/17/20 03:42 97.9 F 115 H 17 99 General: Well nourished, Well developed, No Acute Distress Head: Normocephalic, Atraumatic Eyes: Perrl, EOMI ENT: Moist mucous membranes, No rhinorrhea Neck: Supple, Nontender Cardiovascular: Regular rate, No murmurs, Tachycardia Respiratory: No distress, CTA bilaterally, Chest nontender Abdomen: Soft, Nondistended, Normal bowel sounds, Tender - Very mild epigastric tenderness Back: Nontender, Normal Inspection Extremities: Nontender, No edema Skin: Normal color, No rash Neurological: Alert, Oriented x3, Cranial nerves II-XII grossly intact, Normal Strength, Normal Sensation Psychological: Normal affect, Normal Mood Diagnostic/Tx/Re-eval - Medical Decision Making IV established given IV fluids Zofran and morphine. Lab work obtained. Lab work shows mild chronic anemia. No leukocytosis. Liver function test and lipase normal patient given a dose of Benadryl for mild itching with good relief. At this time I do not feel she has an acute emergent cause of her symptoms that would warrant further imaging. She recently just had a CAT scan. She is on steroids and will finish regimen and follow-up with her GI specialist No vomiting in the department. No evidence of dehydration. Will be given Zofran and short course of meloxicam for home ED Disposition - Plan for ED Patient: Disposition: Home or Assisted Living Diagnosis: Abdominal pain Instructions: ED Abdominal Pain Unkn Cause Fem Prescriptions: Meloxicam [Mobic] 15 mg PO DAILY 3 Days #10 tab Transmission Status: Pending to [id number] Ondansetron [Zofran Odt] 8 mg PO Q8H PRN PRN #20 tab PRN Reason: Nausea Transmission Status: Pending to [facility] Referrals: Ran Johnson DO [Primary Care Provider] -
[2020-07-17] MEDS: Morphine 4 MG/ML Syringe IV (04:02)
[2020-07-17] MEDS: 0.9% Normal Saline 1,000 ML 1000 ML IV (04:02)
[2020-07-17] MEDS: Ondansetron 4 MG/2 ML Vial IV (04:02)
[2020-07-17 04:06] LABS: Absolute Lymphocyte Count 3.43 X10^3/uL (0.83-4.51); Absolute Neutrophil Count 4.1 X10^3/uL (2.0-7.7); Basophil# 0.04 X10^3/uL; Basophil% 0.5 % (0-1); Eosinophil# 0.26 X10^3/uL; Eosinophils% 3.1 % (0-5); Hematocrit 33.8 % (37-47); Hemoglobin 10.7 g/dL (12.0-15.0); Lymphocyte # 3.43 X10^3/ul (4.0); Lymphocyte % 41.1 % (19-41); Mean Corp Hgb Conc 31.7 g/dL (32-36); Mean Corpuscular Hgb 25.3 pg (27.0-32.0); Mean Corpuscular Volume 79.9 fL (81-99); Mean Platelet Vol. 9.6 fl (6.2-12.0); NRBC Flagged by Analyzer 0 % (0-5); Neutrophil # 4.09 X10^3/uL (2.7-7.7); Neutrophil % 49.1 % (47-70); Platelet Count 391 K/mm3 (150-450); RBC Distribution Width CV 15.5 % (11.6-14.6); RBC Distribution Width SD 44.5 fl (35.1-43.9); Red Blood Count 4.23 M/mm3 (4.2-5.4); White Blood Count 8.3 K/mm3 (4.4-11.0)
[2020-07-17] MEDS: DiphenhydrAMINE 25 MG Capsule PO (04:18)
[2020-07-17 04:25] LABS: ALB/GLOB Ratio 0.9 RATIO (0.9-2.4); AST(SGOT) 17 U/L (15-37); Alanine Aminotransfer ALT/SGPT 26 U/L (13-56); Albumin, Serum 3.6 g/dL (3.2-5.0); Alkaline Phosphatase 71 U/L (45-117); Anion Gap 6 (5-15); BUN 9 mg/dL (7-18); BUN/Creat Ratio 11.7 RATIO (10-20); Calcium,Total 8.8 mg/dL (8.5-10.1); Chloride 108 mmol/L (98-107); Creatinine, Serum 0.77 mg/dL (0.55-1.02); EST Glomerular Filtration Rate 98 mL/min (>60); Est Glom Filt Rate - Afr Amer 118 mL/min (>60); Estimated Creatinine Clearance 101.37 ml/min; Globulin 3.9 g/dL (2.2-4.2); Glucose 102 mg/dL (74-106); Lipase 124 U/L (73-393); Potassium 3.5 mmol/L (3.5-5.1); Protein, Total 7.5 g/dL (6.4-8.2); Sodium Level 136 mmol/L (136-145)
[2020-07-17] MEDS: Ketorolac 15 MG/ML Vial IV (05:19)
[2020-07-17 05:21] VITALS: BP 120/72; PULSE 73; RESP 18; O2SAT 99
== END 2020-07-17 05:21 | disposition home or self-care (01) ==
PROVIDERS: Emergency Provider Emergency Medicine; PCP Family Medicine
DX: R10.13 Epigastric pain (principal); R11.2 Nausea with vomiting, unspecified; D64.9 Anemia, unspecified; F31.9 Bipolar disorder, unspecified; Z87.19 Personal history of other diseases of the digestive system; Z90.49 Acquired absence of other specified parts of digestive tract; F17.200 Nicotine dependence, unspecified, uncomplicated
CPT/HCPCS: 80053; 83690; 85025; J7030; A4216; J2405

== ENCOUNTER 2020-07-17 19:54 | Emergency (ER) | payer MEDICAID, SELFPAY ==
[2020-07-17 03:42] VITALS: BMI 31.2
[2020-07-17 19:55] VITALS: BP 124/74; PULSE 90; RESP 20; TEMP 36.6; O2SAT 99; BMI 30.7
--- NOTE | 2020-07-17 22:28 | ED.VIS.GEN ---
History of Present Illness Chief Complaint: Abd Pain Informant: Patient Narrative: 24-year-old female with recent diagnosis of ulcerative colitis by Dr. Amezcua returns for the third time this week for abdominal pain with blood in stool. She states that she is never been started on any medication for ulcerative colitis. She has been trying to use steroids and anti-inflammatories and this is not working. Her previous CT of her abdomen pelvis showed thickening of her bowel. She states she called her PCP to try to get into a GI doctor but she cannot get in for 3 months. Prior similar symptoms: No Recent Illness/Hospitalization: Yes Past Medical History - Allergies and Home Meds Allergies/Adverse Reactions: Allergies codeine Allergy (Verified 07/17/20 03:48) Rash latex Allergy (Verified 07/17/20 03:48) Rash Primary Care Physician: Ran Johnson DO [Primary Care Provider] - Past Medical History: - - Ulcerative colitis Surgical History: cholecystectomy, - - Bilateral tubal ligation, ex lap with duodenal cyst removal Smoking Status: Current every day smoker Alcohol: None Drugs: None Review of Systems General: Denies: Chills, Fever, Sweats Eyes: Denies: Visual changes - bilaterally, Diplopia ENT: Denies: Rhinorrhea, Sore throat Cardiovascular: Denies: Chest pain, Palpitations Respiratory: Denies: Dyspnea, Cough, Dyspnea on exertion Gastrointestinal: Reports: Abdominal pain, Nausea, Vomiting, Hematochezia Genitourinary: Denies: Dysuria, Hematuria, Frequency Musculoskeletal: Denies: Back pain, Extremity Pain Skin: Denies: Rash, Wounds Neurological: Denies: Headache, Weakness, Numbness Psych: Denies: Depression, Anxiety, Suicidal thoughts, Suicidal ideations, -, - Physical Exam Vital Signs/Narrative: Vital Signs Temp Pulse Resp BP Pulse Ox 07/17/20 19:55 98 F 90 20 H 124/74 H 99 Inital Vital Signs reviewed: Yes General: Well nourished, No Acute Distress Head: Normocephalic Eyes: Perrl, EOMI. Negative for: Scleral icterus ENT: Moist mucous membranes, No rhinorrhea Cardiovascular: Regular rate, Regular rhythm Respiratory: No distress, CTA bilaterally Abdomen: Soft, Nondistended, Tender - Tenderness to palpation in the epigastrium and right side of abdomen. Extremities: Nontender, No edema Skin: Normal color, No rash Neurological: Alert, Oriented x3 Psychological: Normal affect, Normal Mood - d Diagnostic/Tx/Re-eval Clinical Impression(s) from Imaging Studies Abdomen/Pelvis CT 07/17/20 22:31 IMPRESSION: Mild pelvic fluid. Electronically Signed: Mauriziodavid Medina DO at 23:53 EST Tel [phone], Service support , Laboratory Data 07/17/20 07/17/20 07/17/20 22:50 22:50 23:40 WBC 6.2 RBC 4.52 Hgb 11.1 L Hct 36.1 L MCV 79.9 L MCH 24.6 L MCHC 30.7 L RDW Std Deviation 45.0 H RDW Coeff of Seth 15.5 H Plt Count 388 MPV 10.4 Immature Gran % (Auto) 0.200 Neut % (Auto) 53.6 Lymph % (Auto) 35.9 [place] % (Auto) 5.3 Eos % (Auto) 4.5 Baso % (Auto) 0.5 Absolute Neuts (auto) 3.3 Absolute Lymphs (auto) 2.22 Nucleated RBC % 0 Sodium 139 Potassium 4.7 Chloride 112 H Carbon Dioxide 18.0 L Anion Gap 9 BUN 5 L Creatinine 0.80 Estim Creat Clear Calc 97.57 Est GFR (MDRD) Af Amer 113 Est GFR (MDRD) Non-Af 93 BUN/Creatinine Ratio 6.2 L Glucose 91 Calcium 9.1 Total Bilirubin 0.30 AST 42 H ALT 49 Alkaline Phosphatase 76 Total Protein 7.9 Albumin 3.8 Globulin 4.1 Albumin/Globulin Ratio 0.9 Lipase 112 Urine Color Yellow Urine Clarity Clear Urine pH 7.0 Ur Specific [place] 1.005 Urine Protein Negative Urine Glucose (UA) Normal Urine Ketones Negative Urine Occult Blood 50 H Urine Nitrite Negative Urine Bilirubin Negative Urine Urobilinogen Normal Ur Leukocyte Esterase Negative Urine RBC 5-10 SEEN Urine WBC 0 SEEN Ur Squamous Epith Cells 0-5 SEEN Urine Bacteria 0 SEEN Urine Mucus 0 SEEN - Medical Decision Making Patient presents for abdominal pain. She has been seen multiple times for this. She was recently diagnosed with ulcerative colitis and she is not on any medication. She is trying to obtain follow-up through the GI doctor. She had a CT recently which showed thickening of the bowel. She was started on prednisone. On her most recent visit she was also put on Mobic. Her lab work today shows that her hemoglobin is stable even though she is had some blood in her stool. Her vital signs are stable and she is afebrile. Her lab work otherwise is unremarkable. CT of the abdomen pelvis with IV contrast shows that she has a small amount of pelvic fluid, however she is not having any lower abdominal pain. She also has a lot of fecal retention. The thickening he was previously seen is no longer present. She feels better after receiving morphine. She is counseled to start taking a stool softener and some laxatives. She understands she is to follow-up with GI. She is given return precautions. Impression: 1. Abdominal pain 2. Hematochezia 3. History of ulcerative colitis 4. Fecal retention ED Disposition - Plan for ED Patient: Disposition: Home or Assisted Living Instructions: ED Abdominal Pain Unkn Cause Fem Prescriptions: Oxycodone HCl/Acetaminophen [Percocet 5/325] 1 tab PO Q6H PRN PRN 3 Days #12 tab PRN Reason: Pain Prescription Printed Ondansetron [Zofran Odt] 4 mg PO Q8H PRN PRN #10 tab PRN Reason: Nausea Prescription Printed Referrals: Ran Johnson DO [Primary Care Provider] -
--- NOTE | 2020-07-17 22:31 | CT_ITS ---
STUDY: CT ABDOMEN AND PELVIS WITH CONTRAST REASON FOR EXAM: Female, 24 years old. BLOOD IN STOOL, MID EPIGASTRIC PAIN RADIATING DOWN RIGHT SIDE, NEW DIAGNOSIS OF ULCERATIVE COLITIS, 3RD VISIT THIS WEEK FOR SAME COMPLAINT, HX TUBAL, LAP WITH DUODENAL CYST REMOVAL, GB RADIATION DOSAGE (If Supplied By Facility): CTDIvol = ( 15.88 ) mGy, DLP = ( 772.95 ) mGycm TECHNIQUE: Transaxial images were obtained from the dome of the diaphragm to the symphysis pubis without oral contrast. IV 100mL Isovue-370 was administered. Sagittal and coronal images were reconstructed. Individualized dose optimization techniques were used for this CT. COMPARISON: None. FINDINGS: The visualized lung bases are unremarkable. The visualized portions of the heart are within normal limits. Normal liver. Status post cholecystectomy. No significant dilatation of the extrahepatic biliary system. Normal spleen. Normal pancreas. Normal bilateral adrenal glands. Normal right kidney. Normal left kidney. Normal visualized stomach. Normal small intestine. Fecal retention in the colon. The appendix is not visualized. Normal abdominal aorta. Normal inferior vena cava. Normal retroperitoneum. Normal urinary bladder. Mild pelvic fluid. Normal abdominal wall. Normal osseous structures. CT/Abdomen/Pelvis W IV Cont ONLY IMPRESSION: Mild pelvic fluid. Electronically Signed: Maurizio Medina DO at 23:53 EST Tel [phone], Service support ,
[2020-07-17 23:10] LABS: Absolute Lymphocyte Count 2.22 X10^3/uL (0.83-4.51); Absolute Neutrophil Count 3.3 X10^3/uL (2.0-7.7); Basophil# 0.03 X10^3/uL; Basophil% 0.5 % (0-1); Eosinophil# 0.28 X10^3/uL; Eosinophils% 4.5 % (0-5); Hematocrit 36.1 % (37-47); Hemoglobin 11.1 g/dL (12.0-15.0); Lymphocyte # 2.22 X10^3/ul (4.0); Lymphocyte % 35.9 % (19-41); Mean Corp Hgb Conc 30.7 g/dL (32-36); Mean Corpuscular Hgb 24.6 pg (27.0-32.0); Mean Corpuscular Volume 79.9 fL (81-99); Mean Platelet Vol. 10.4 fl (6.2-12.0); Monocyte# 0.33 X10^3/uL; Monocyte% 5.3 % (0-10); NRBC Flagged by Analyzer 0 % (0-5); Neutrophil # 3.31 X10^3/uL (2.7-7.7); Neutrophil % 53.6 % (47-70); POSITIVE COUNT YES; Platelet Count 388 K/mm3 (150-450); RBC Distribution Width CV 15.5 % (11.6-14.6); Red Blood Count 4.52 M/mm3 (4.2-5.4); White Blood Count 6.2 K/mm3 (4.4-11.0)
[2020-07-17 23:14] LABS: Differential Indicated SCAN CRITERIA MET
[2020-07-17] MEDS: Morphine 4 MG/ML Syringe IV (23:18)
[2020-07-17] MEDS: Ondansetron 4 MG/2 ML Vial IV (23:18)
[2020-07-17 23:35] LABS: ALB/GLOB Ratio 0.9 RATIO (0.9-2.4); AST(SGOT) 42 U/L (15-37); Alanine Aminotransfer ALT/SGPT 49 U/L (13-56); Albumin, Serum 3.8 g/dL (3.2-5.0); Alkaline Phosphatase 76 U/L (45-117); Anion Gap 9 (5-15); BUN 5 mg/dL (7-18); BUN/Creat Ratio 6.2 RATIO (10-20); Calcium,Total 9.1 mg/dL (8.5-10.1); Chloride 112 mmol/L (98-107); EST Glomerular Filtration Rate 93 mL/min (>60); Est Glom Filt Rate - Afr Amer 113 mL/min (>60); Estimated Creatinine Clearance 97.57 ml/min; Globulin 4.1 g/dL (2.2-4.2); Glucose 91 mg/dL (74-106); Lipase 112 U/L (73-393); Potassium 4.7 mmol/L (3.5-5.1); Protein, Total 7.9 g/dL (6.4-8.2); Sodium Level 139 mmol/L (136-145)
[2020-07-17 23:46] LABS: Color, Urine Yellow (Yellow); Glucose, Dipstick Normal (Normal); Ketone-Dipstick Negative (Negative); Leukocyte Esterase-Dipstick Negative /ul (Negative); Nitrite-Dipstick Negative (Negative); Occult Blood-Urine 50 /ul (Negative); Protein-Dipstick Negative (Negative); Specific Gravity, Urine 1.005 (1.002-1.030); Urine Bilirubin Dipstick Negative (Negative); Urine Clarity Clear (Clear); Urine Urobilinogen Normal (Normal)
[2020-07-17 23:47] LABS: Bacteria 0 SEEN /hpf (None Seen); Mucous, Urine 0 SEEN /hpf (<or=2+); White Blood Cells 0 SEEN /hpf (0-5)
[2020-07-17 23:54] LABS: Red Blood Cells-Urine 5-10 SEEN /hpf (0-5); Squamous Epithelial Cells - UA 0-5 SEEN /hpf (5-10)
[2020-07-18 00:09] VITALS: BP 112/77; PULSE 65; RESP 15; O2SAT 97
[2020-07-18] MEDS: Morphine 4 MG/ML Syringe IV (00:14)
[2020-07-18 00:25] LABS: Differential Comment SCANNED; Platelet Estimate ADEQUATE (ADEQ); Platelet Morphology CLUMPED
== END 2020-07-18 00:27 | disposition home or self-care (01) ==
PROVIDERS: Emergency Provider Student in an Organized Health Care Education/Training Program; PCP Family Medicine
DX: R10.9 Unspecified abdominal pain (principal); K92.1 Melena; K51.90 Ulcerative colitis, unspecified, without complications; K59.00 Constipation, unspecified; R10.13 Epigastric pain; R11.2 Nausea with vomiting, unspecified; D64.9 Anemia, unspecified; F31.9 Bipolar disorder, unspecified; Z87.19 Personal history of other diseases of the digestive system; Z90.49 Acquired absence of other specified parts of digestive tract; F17.200 Nicotine dependence, unspecified, uncomplicated
CPT/HCPCS: 74177; 80053; 81001; 83690; 85025; 96361; 96374; 96375; 96376; 99284; 99285; J7030; Q9967; A4216; J2405

== ENCOUNTER 2021-08-05 16:50 | Emergency (ER) | payer MEDICAID, SELFPAY ==
[2021-08-05 16:51] VITALS: BP 117/81; PULSE 92; RESP 18; TEMP 36.8; O2SAT 100; BMI 26.6
[2021-08-05 18:09] LABS: Absolute Neutrophil Count 7.3 X10^3/uL (2.0-7.7); Basophil# 0.05 X10^3/uL; Basophil% 0.5 % (0-1); Eosinophil# 0.26 X10^3/uL; Eosinophils% 2.6 % (0-5); Hematocrit 38.5 % (37-47); Hemoglobin 12.1 g/dL (12.0-15.0); Lymphocyte % 19.1 % (19-41); Mean Corp Hgb Conc 31.4 g/dL (32-36); Mean Corpuscular Volume 85.9 fL (81-99); Mean Platelet Vol. 9.6 fl (6.2-12.0); Monocyte# 0.39 X10^3/uL; Monocyte% 3.9 % (0-10); NRBC Flagged by Analyzer 0 % (0-5); Neutrophil # 7.29 X10^3/uL (2.7-7.7); Neutrophil % 73.5 % (47-70); Platelet Count 388 K/mm3 (150-450); RBC Distribution Width CV 14.2 % (11.6-14.6); RBC Distribution Width SD 44.2 fl (35.1-43.9); Red Blood Count 4.48 M/mm3 (4.2-5.4); White Blood Count 9.9 K/mm3 (4.4-11.0)
[2021-08-05 18:17] LABS: Internal QC Validated? YES +Cl - CLEAR BKGD; Pregnancy, Serum, hCG Quali. NEGATIVE Negative
--- NOTE | 2021-08-05 18:17 | EDS_ITS ---
HPI HPI - Female History of Present Illness Chief Complaint: Complaint Informant: patient Pain Pain: Positive for Pelvic Pain Onset: Days (4) Context: Gradual Onset Timing: Continuous Quality: Positive for Sharp and Stabbing Location: LLQ and Suprapubic Current Severity: Severe Worsened by: Movement Relieved by: - (Nothing) Bleeding Context: Gradual Onset Current Severity: Spotting Associated Symptoms Associated Symptoms: Negative for Dysuria, Frequency and Hematuria Last known menstrual period: 06/20/2021 Narrative Narrative: Patient presents with left lower quadrant and pelvic pain that has been getting progressively worse over the past 4 days. Patient describes pain as sharp and stabbing. Patient states it is over the left lower quadrant and suprapubic area. Patient states her pain is worse with movement. Patient states she is having some light spotting. Patient states her last normal menstrual period was 06/20/2021. Patient states she just started with the spotting a couple days ago. Patient admits to some subjective chills but denies any fevers. Patient admits to nausea but denies any vomiting. Patient denies any urinary complaints. Patient has a history of a tubal ligation. PFSH PFSH Medical History Abdominal adhesions Asthma Endometriosis Home Medications hydrocodone-acetaminophen 1 tab PO Q6H PRN PRN 3 Days #10 tablet 08/05/21 [Rx Last Taken Unknown] ondansetron 4 mg PO Q8H PRN PRN #10 tab 08/05/21 [Rx Last Taken Unknown] Allergy/AdvReac Type Severity Reaction Status Date / Time codeine Allergy Rash Verified 07/17/20 03:48 latex Allergy Rash Verified 07/17/20 03:48 Surgical History H/O tubal ligation History of appendectomy Hx of cholecystectomy Social History Smoking Status: Current every day smoker tobacco type: cigarettes ROS ROS ED Constitutional Constitutional ED: Reports chills and subjective; Denies fever(s) Eyes Eyes: Denies blurry vision or change in vision ENT ENT ED: Denies rhinorrhea or sore throat Cardiovascular Cardiovascular: Denies chest pain or palpitations Respiratory/Chest Respiratory/Chest: Denies cough or dyspnea Gastrointestinal Gastrointestinal: Reports nausea; Denies vomiting Genitourinary Genitourinary ED: Denies dysuria or hematuria Musculoskeletal Musculoskeletal: Denies back pain or neck pain Integumentary Denies abscess or rash Neurologic Neurologic: Denies headache(s) or weakness Allergic/Immunologic Allergic/Immunologic ED: Denies mouth swelling or urticaria EXAM Physical Exam Const Vital Signs: 08/05/21 16:51 Temperature 98.3 F Temperature Source Temporal Pulse Rate 92 Respiratory Rate 18 Blood Pressure 117/81 H Blood Pressure Mean 93 Pulse Ox 100 Oxygen Delivery Method Room Air Positive well nourished and well developed General Appearance ED: well developed HEENT Reports moist mucous membranes Neck supple and no JVD Resp normal respiratory effort and clear to auscultation bilaterally Cardio regular rate, regular rhythm and no murmurs GI normal to inspection, nondistended, normoactive bowel sounds and non-distended Palpation: soft and tender LLQ and suprapubic Extremity normal to inspection General Extremety ED: Negative for edema or tenderness General Extremity: Negative for edema Neuro oriented x3, CN's II-XII intact bilaterally and no sensory deficits noted Sensorium / Orientation: alert Motor Exam: strength 5/5 throughout Psych mental status grossly normal Skin no rashes or lesions noted MDM MDM MDM Narrative Medical decision making narrative: Patient was given IV fluids, morphine, and Zofran. CBC was within normal limits. Comprehensive metabolic profile was normal. Serum hCG was negative. Pelvic ultrasound was obtained. There is no evidence of ovarian torsion. There is trace free fluid in the cul-de-sac. This was interpreted by the radiologist and reviewed by myself. Urinalysis was obtained. Occult blood was 250. There were 10-25 red blood cells. There is no evidence of urinary tract infection. Patient was advised that this could be a kidney stone causing the hematuria and left lower quadrant pain. Patient does not want to have a CT scan done at this time. Patient wants to go home. Patient was given repeat dose of morphine and Zofran. Patient was given prescriptions for [place] and Zofran. 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 Patient understood and was agreeable with the plan. All questions were answered. Lab Data Attestation: I reviewed the patient's lab results. Labs: Laboratory Results - last 24 hr 08/05/21 08/05/21 08/05/21 17:45 17:50 17:50 WBC 9.9 RBC 4.48 Hgb 12.1 Hct 38.5 MCV 85.9 MCH 27.0 MCHC 31.4 L RDW Std Deviation 44.2 H RDW Coeff of Seth 14.2 Plt Count 388 MPV 9.6 Immature Gran % (Auto) 0.400 Neut % (Auto) 73.5 H Lymph % (Auto) 19.1 [place] % (Auto) 3.9 Eos % (Auto) 2.6 Baso % (Auto) 0.5 Absolute Neuts (auto) 7.3 Absolute Lymphs (auto) 1.90 Nucleated RBC % 0 Sodium 142 Potassium 3.7 Chloride 109 H Carbon Dioxide 23.0 Anion Gap 10 BUN 7 Creatinine 0.70 Estim Creat Clear Calc 110.55 Est GFR (MDRD) Af Amer 130 Est GFR (MDRD) Non-Af 107 BUN/Creatinine Ratio 10.0 Glucose 80 Calcium 9.3 Total Bilirubin 0.30 AST 13 L ALT 22 Alkaline Phosphatase 68 Total Protein 8.7 H Albumin 4.3 Globulin 4.4 H Albumin/Globulin Ratio 1.0 Serum , Qual Urine Color Yellow Urine Clarity Clear Urine pH 6.0 Ur Specific [place] 1.015 Urine Protein Negative Urine Glucose (UA) Normal Urine Ketones Negative Urine Occult Blood 250 H Urine Nitrite Negative Urine Bilirubin Negative Urine Urobilinogen Normal Ur Leukocyte Esterase Negative Urine RBC 10-25 SEEN Urine WBC 0 SEEN Ur Squamous Epith Cells 0 SEEN Urine Bacteria 1+ Urine Mucus 0 SEEN 08/05/21 17:50 WBC RBC Hgb Hct MCV MCH MCHC RDW Std Deviation RDW Coeff of Seth Plt Count MPV Immature Gran % (Auto) Neut % (Auto) Lymph % (Auto) [place] % (Auto) Eos % (Auto) Baso % (Auto) Absolute Neuts (auto) Absolute Lymphs (auto) Nucleated RBC % Sodium Potassium Chloride Carbon Dioxide Anion Gap BUN Creatinine Estim Creat Clear Calc Est GFR (MDRD) Af Amer Est GFR (MDRD) Non-Af BUN/Creatinine Ratio Glucose Calcium Total Bilirubin AST ALT Alkaline Phosphatase Total Protein Albumin Globulin Albumin/Globulin Ratio Serum , Qual NEGATIVE Urine Color Urine Clarity Urine pH Ur Specific [place] Urine Protein Urine Glucose (UA) Urine Ketones Urine Occult Blood Urine Nitrite Urine Bilirubin Urine Urobilinogen Ur Leukocyte Esterase Urine RBC Urine WBC Ur Squamous Epith Cells Urine Bacteria Urine Mucus Radiography Diagnostic Testing: Clinical Impression(s) from Imaging Studies Transvaginal US 08/05/21 18:43 IMPRESSION: No evidence of ovarian torsion. Trace free fluid within the cul-de-sac. Electronically Signed: Derek Gonzales MD at 20:16 EST Tel , Service support , Discharge Plan Triage Chief Complaint: Complaint ED Provider: Trent Carr Dx/Rx/DC Orders Clinical Impression: Left lower quadrant abdominal pain Instructions: ED Abdominal Pain Unkn Cause Fem Prescriptions: New hydrocodone-acetaminophen [hydrocodone-acetaminophen] 1 TABLET tablet 1 tab PO Q6H PRN PRN (Reason: Pain) 3 Days Qty: 10 RF: 0 ondansetron [ondansetron] 4 MG tablet 4 mg PO Q8H PRN PRN (Reason: Nausea) Qty: 10 RF: 0 Primary Care Provider: Ran Johnson Referrals: Ran Johnson DO [Primary Care Provider] - 3-5 Days Disposition Disposition: Home, Self Care
[2021-08-05 18:23] LABS: AST(SGOT) 13 U/L (15-37); Alanine Aminotransfer ALT/SGPT 22 U/L (13-56); Albumin, Serum 4.3 g/dL (3.2-5.0); Alkaline Phosphatase 68 U/L (45-117); Anion Gap 10 (5-15); BUN 7 mg/dL (7-18); Calcium,Total 9.3 mg/dL (8.5-10.1); Chloride 109 mmol/L (98-107); EST Glomerular Filtration Rate 107 mL/min (>60); Est Glom Filt Rate - Afr Amer 130 mL/min (>60); Estimated Creatinine Clearance 110.55 ml/min; Globulin 4.4 g/dL (2.2-4.2); Glucose 80 mg/dL (74-106); Potassium 3.7 mmol/L (3.5-5.1); Protein, Total 8.7 g/dL (6.4-8.2); Sodium Level 142 mmol/L (136-145)
[2021-08-05] MEDS: Ondansetron 4 MG/2 ML Vial IV ×2 (18:41→22:37)
[2021-08-05] MEDS: Morphine 4 MG/ML Syringe IV ×2 (18:41→22:37)
[2021-08-05] MEDS: 0.9% Normal Saline 1,000 ML 1000 ML IV (18:41)
--- NOTE | 2021-08-05 18:43 | US_ITS ---
INDICATION: Pelvic pain-LLQ EXAMINATION: US Transvaginal Non-OB TECHNIQUE: Transvaginal (for optimal evaluation of the adnexa) pelvic ultrasound was performed. Grayscale, spectral waveform, and color flow Doppler evaluation of the adnexa. COMPARISON: None. FINDINGS: UTERUS: Anteverted. The uterus measures 7.5 x 6.4 x 5 cm. Small nabothian cyst. The endometrial stripe measures 9 mm in AP diameter which is within normal limits. RIGHT OVARY: Measures 3.7 x 2.6 x 2 cm. Non-enlarged, normal echogenicity. There is normal arterial inflow and venous outflow present in the right ovary. LEFT OVARY: Measures 3.9 x 2.5 x 1.6 cm. Non-enlarged, normal echogenicity. There is normal arterial inflow and venous outflow present in the left ovary. FREE FLUID: Trace. US/Transvaginal Non- IMPRESSION: No evidence of ovarian torsion. Trace free fluid within the cul-de-sac. Electronically Signed: Derek Gonzales MD at 20:16 EST Tel , Service support ,
[2021-08-05 21:10] LABS: Mucous, Urine 0 SEEN /hpf (<or=2+); Squamous Epithelial Cells - UA 0 SEEN /hpf (5-10); White Blood Cells 0 SEEN /hpf (0-5)
[2021-08-05 21:12] LABS: Color, Urine Yellow (Yellow); Glucose, Dipstick Normal (Normal); Ketone-Dipstick Negative (Negative); Leukocyte Esterase-Dipstick Negative /ul (Negative); Nitrite-Dipstick Negative (Negative); Occult Blood-Urine 250 /ul (Negative); Protein-Dipstick Negative (Negative); Specific Gravity, Urine 1.015 (1.002-1.030); Urine Bilirubin Dipstick Negative (Negative); Urine Clarity Clear (Clear); Urine Urobilinogen Normal (Normal)
[2021-08-05 21:19] LABS: Bacteria 1+ /hpf (None Seen); Red Blood Cells-Urine 10-25 SEEN /hpf (0-5)
[2021-08-05 22:31] VITALS: BP 115/76; PULSE 81; RESP 14; O2SAT 97
== END 2021-08-05 22:38 | disposition home or self-care (01) ==
PROVIDERS: Emergency Provider Emergency Medicine; PCP Family Medicine
DX: R10.32 Left lower quadrant pain (principal); R11.0 Nausea; R68.83 Chills (without fever); N93.9 Abnormal uterine and vaginal bleeding, unspecified; N80.9 Endometriosis, unspecified; J45.909 Unspecified asthma, uncomplicated; F17.210 Nicotine dependence, cigarettes, uncomplicated
CPT/HCPCS: 76830; 80053; 81001; 84703; 85025; 93976; 96361; 96374; 96375; 96376; 99285; J2405

== ENCOUNTER 2022-11-24 18:08 | Emergency (ER) | payer MEDICAID, SELFPAY ==
[2022-11-24 18:09] VITALS: BP 104/81; PULSE 84; RESP 18; TEMP 36.9; O2SAT 100; BMI 24.4
--- NOTE | 2022-11-24 18:27 | EKG12_ITS ---
Test Reason : CP Blood Pressure : / mmHG Vent. Rate : 063 BPM Atrial Rate : 063 BPM P-R Int : 138 ms QRS Dur : 088 ms QT Int : 378 ms P-R-T Axes : 036 047 033 degrees QTc Int : 386 ms Normal sinus rhythm Normal ECG Confirmed by SHERRY LOOMIS, PEÑA ([id number]), general expeditor NADINE GROSS ([id number]) on 11/30/2022 9:55:36 AM Referred By: JOSE M Confirmed By:PEÑA POWELL MD
--- NOTE | 2022-11-24 18:29 | RAD_ITS ---
STUDY: X-RAY CHEST REASON FOR EXAM: Female, 27 years old. Chest pain. TECHNIQUE: Single AP portable view of the chest. COMPARISON: Acute abdomen with chest, May 06, 2020. FINDINGS: The lungs are clear and expanded. There is no demonstrated pleural abnormality. Normal size heart. Normal mediastinum and jani. Normal visualized pulmonary arteries. Normal visualized aortic arch and descending thoracic aorta. Normal visualized thoracic spine. Normal visualized ribs, clavicles, and shoulders. There is no demonstrated abnormality of the visualized soft tissue structures of the upper abdomen. RAD/Chest 1 View (Portable) IMPRESSION: No acute cardiopulmonary disease or interval change. Electronically Signed: David Shultz DO at 18:44 EDT ,
[2022-11-24 18:45] VITALS: BP 97/75; PULSE 67; RESP 15; O2SAT 95; O2SAT 97
[2022-11-24 18:52] LABS: Absolute Lymphocyte Count 2.49 X10^3/uL (0.83-4.51); Absolute Neutrophil Count 3.8 X10^3/uL (2.0-7.7); Basophil# 0.04 X10^3/uL; Basophil% 0.6 % (0-1); Eosinophils% 2.9 % (0-5); Hemoglobin 12.8 g/dL (12.0-15.0); Lymphocyte # 2.49 X10^3/ul (0.83-4.51); Lymphocyte % 35.5 % (19-41); Mean Corp Hgb Conc 32.8 g/dL (32-36); Mean Corpuscular Hgb 29.7 pg (27.0-32.0); Mean Corpuscular Volume 90.5 fL (81-99); Mean Platelet Vol. 9.5 fl (6.2-12.0); Monocyte# 0.43 X10^3/uL; Monocyte% 6.1 % (0-10); NRBC Flagged by Analyzer 0 % (0-5); Neutrophil # 3.84 X10^3/uL (2.7-7.7); Neutrophil % 54.8 % (47-70); Platelet Count 259 K/mm3 (150-450); RBC Distribution Width SD 43.3 fl (35.1-43.9); Red Blood Count 4.31 M/mm3 (4.2-5.4)
[2022-11-24 19:15] LABS: Anion Gap 3 (5-15); BUN 11 mg/dL (7-18); BUN/Creat Ratio 14.7 RATIO (10-20); Calcium,Total 8.9 mg/dL (8.5-10.1); Chloride 111 mmol/L (98-107); Creatinine, Serum 0.75 mg/dL (0.55-1.02); EST Glomerular Filtration Rate 99 mL/min (>60); Est Glom Filt Rate - Afr Amer 120 mL/min (>60); Estimated Creatinine Clearance 101.39 ml/min; Glucose 86 mg/dL (74-106); Potassium 3.7 mmol/L (3.5-5.1); Sodium Level 138 mmol/L (136-145); Troponin-I HS (w/2H Reflex) < 3 pg/mL (3.0-54.0)
[2022-11-24 20:28] VITALS: BP 99/67; PULSE 60; RESP 14; O2SAT 98
[2022-11-24 21:00] VITALS: BP 105/66; PULSE 70; RESP 11; O2SAT 100
[2022-11-24] MEDS: 0.9% Normal Saline 1,000 ML 999 ML IV (21:04)
[2022-11-24] MEDS: Ketorolac 15 MG/ML Vial IV (21:05)
[2022-11-24] MEDS: Ondansetron 4 MG/2 ML Vial IV (21:05)
[2022-11-24 22:00] VITALS: BP 104/56; PULSE 58; RESP 17; O2SAT 99
[2022-11-24] MEDS: Lidocaine 5% Patch 1 PATCH TOPICAL (22:23)
[2022-11-24] MEDS: SUMAtriptan 6 MG/0.5 ML Vial SC (22:23)
--- NOTE | 2022-11-24 23:21 | EDS_ITS ---
HPI History of Present Illness Chief Complaint: General Illness Narrative Narrative: Patient is a 27-year-old female with history of bipolar disorder and migraines presenting with pleuritic chest pain. She states she had constant chest pain since 3 PM today but it fluctuates intensity. Is worse with deep breathing. It is mostly in her left chest and underneath her left breast. She knows she had some tingling in her right arm all day. She states that she bent down today and then since then has had thoracic right-sided back pain. Is worse with movement. She notes that she woke up with a migraine headache and did have an episode of vomiting. She had some mild cough and congestion over the past few days. She denies any fever. Denies any swelling of her legs. Denies any history of DVT or PE. Is not on any estrogen or other hormonal therapy. She has tried taking Tylenol, Tums and Zofran with no relief of her symptoms. Has no other complaints at this time. Notes she has had increased stress lately and attributes it to a promotion at work. She describes her headache as a migraine but also states it is bandlike and throbbing. Denies any vision changes. Is not a thunderclap headache. PFS PFS Medical History Abdominal adhesions Asthma Endometriosis Home Medications hydrocodone-acetaminophen 5-325mg 5mg-325mg 1 tab PO Q6H PRN PRN Pain 3 days #10 TABLETS 08/05/21 [Rx Last Taken Unknown] ondansetron 4 mg disintegrating tablet 4 mg PO Q8H PRN PRN Nausea #10 tabs 08/05/21 [Rx Last Taken Unknown] Allergy/AdvReac Type Severity Reaction Status Date / Time codeine Allergy Rash Verified 07/17/20 03:48 gabapentin Allergy Other Verified 11/24/22 18:11 latex Allergy Rash Verified 07/17/20 03:48 Surgical History H/O tubal ligation History of appendectomy Hx of cholecystectomy Social History Smoking Status: Current every day smoker tobacco type: e-cigarettes ROS ROS ED Constitutional Constitutional ED: Denies chills or fever(s) Eyes Eyes: Denies blurry vision or change in vision ENT ENT ED: Reports rhinorrhea and sore throat Cardiovascular Cardiovascular: Reports chest pain; Denies palpitations Respiratory/Chest Respiratory/Chest: Reports cough; Denies dyspnea Gastrointestinal Gastrointestinal: Reports vomiting; Denies abdominal pain or nausea Genitourinary Genitourinary ED: Denies dysuria or hematuria Musculoskeletal Musculoskeletal: Reports back pain; Denies arthralgias Integumentary Denies rash Neurologic Neurologic: Reports headache(s) and paresthesias RUE; Denies weakness Hematologic/Lymphatic Hematologic/Lymphatic: Denies easy bleeding or easy bruising EXAM Physical Exam Const Vital Signs: 11/24/22 18:09 11/24/22 18:45 11/24/22 18:45 Temperature 98.4 F Temperature Source Temporal Pulse Rate 84 67 Respiratory Rate 18 15 Respiratory Effort Respiratory Pattern Blood Pressure 104/81 H 97/75 Blood Pressure Mean 88 82 Pulse Ox 100 97 95 Oxygen Delivery Method Room Air Room Air Room Air 11/24/22 18:46 11/24/22 18:46 11/24/22 20:28 Temperature Temperature Source Pulse Rate 60 Respiratory Rate 14 Respiratory Effort Normal Non-Labored Normal Non-Labored Respiratory Pattern Normal Blood Pressure 99/67 Blood Pressure Mean 77 Pulse Ox 98 Oxygen Delivery Method Room Air 11/24/22 21:00 11/24/22 22:00 Temperature Temperature Source Pulse Rate 70 58 L Respiratory Rate 11 L 17 Respiratory Effort Respiratory Pattern Blood Pressure 105/66 104/56 L Blood Pressure Mean 79 72 Pulse Ox 100 99 Oxygen Delivery Method Room Air Room Air Positive well nourished and well developed General Appearance ED: well developed and NAD HEENT Reports TM's clear and moist mucous membranes HEENT Narrative: Normal oropharynx however there is mild injection of the hard palate Tympanic Membrane ED: Yes TM's clear Eyes PERRL and EOMs intact bilaterally Neck supple Neck Narrative: No meningeal signs Chest Wall inspection of chest normal and palpation of chest normal Resp normal respiratory effort and clear to auscultation bilaterally Cardio regular rate and regular rhythm GI normal to inspection, nondistended, normoactive bowel sounds and non-tender Back/Spine Thoracic Spine / Upper Back: paraspinal muscle tenderness right; Negative for thoracic spinal tenderness Extremity normal to inspection General Extremety ED: Negative for edema or tenderness General Extremity: Negative for edema Neuro oriented x3, CN's II-XII intact bilaterally and no sensory deficits noted Sensorium / Orientation: alert Motor Exam: strength 5/5 throughout Psych mental status grossly normal Skin no rashes or lesions noted and no wounds MDM MDM MDM Narrative Medical decision making narrative: Patient is evaluated for multiple complaints including chest pain, headache and generalized malaise. She has a normal neurologic exam. She does not have any cardiac risk factors. Her EKG is nonischemic and just shows normal sinus rhythm as interpreted by myself. High-sensitivity troponin is negative at less than 3. Patient is PE RC negative and I do not think she has a pulmonary emboli. She does not have any electrolyte abnormalities or signs of hepatic serial infection including fever or leukocytosis. Chest x-ray interpreted by myself as well as radiology does not show any acute process. Pneumothorax. It is possible she could have pleurisy. Patient is given IV fluids, Toradol and Zofran in the emergency room. She has mild improvement of her symptoms. She had given a dose of Imitrex and lidocaine with further resolution of her symptoms. Is comfortable going home. Encouraged to alternate ibuprofen and Tylenol at home. Encouraged to follow-up with primary care doctor. States she does not need a work note. Is given return precautions. Patient verbalized agreement and understanding with this plan of care. Lab Data Attestation: I reviewed the patient's lab results. Labs: Laboratory Results - last 24 hr 11/24/22 11/24/22 18:45 18:45 WBC 7.0 RBC 4.31 Hgb 12.8 Hct 39.0 MCV 90.5 MCH 29.7 MCHC 32.8 RDW Std Deviation 43.3 RDW Coeff of Seth 13.0 Plt Count 259 MPV 9.5 Immature Gran % (Auto) 0.100 Neut % (Auto) 54.8 Lymph % (Auto) 35.5 [place] % (Auto) 6.1 Eos % (Auto) 2.9 Baso % (Auto) 0.6 Absolute Neuts (auto) 3.8 Absolute Lymphs (auto) 2.49 Nucleated RBC % 0 Sodium 138 Potassium 3.7 Chloride 111 H Carbon Dioxide 24.0 Anion Gap 3 L BUN 11 Creatinine 0.75 Estim Creat Clear Calc 101.39 Est GFR (MDRD) Af Amer 120 Est GFR (MDRD) Non-Af 99 BUN/Creatinine Ratio 14.7 Glucose 86 Calcium 8.9 Troponin I High Sens < 3 L Radiography Diagnostic Testing: Clinical Impression(s) from Imaging Studies Chest X-Ray 11/24/22 18:29 IMPRESSION: No acute cardiopulmonary disease or interval change. Electronically Signed: David Shultz DO at 18:44 EDT Reading Location ID and State: [address] [place] [address] Tel [phone], Service support , Rhythm Strip Rhythm Strip: Sinus Rhythm Rate: 63 Ectopy: None EKG Initial EKG: Attestation: I personally reviewed and interpreted this EKG as follows: Interpretation: Sinus Rhythm Comments: Normal sinus rhythm at a rate of 63 bpm Normal axis Normal intervals Normal ST segments Discharge Plan Triage Chief Complaint: General Illness Other Complaint: Chest Pain ED Provider: Nataly Johnson Dx/Rx/DC Orders Clinical Impression: Acute tension headache, Non-cardiac chest pain Instructions: ED Chest Pain, Noncardiac Prescriptions: No Action hydrocodone-acetaminophen [hydrocodone-acetaminophen] 1 TABLET tablet 1 tab PO Q6H PRN PRN (Reason: Pain) 3 Days Qty: 10 0RF ondansetron [ondansetron] 4 MG tablet 4 mg PO Q8H PRN PRN (Reason: Nausea) Qty: 10 0RF Primary Care Provider: LIZETH CHURCHILL Referrals: LIZETH CHURCHILL [Other] Activity Restrictions/Additional Instructions: Drink lots of fluids. Alternate ibuprofen and Tylenol at home. I suspect you have a viral syndrome that is causing your sepsis constellation of symptoms. Return to the ED if you have a progression or worsening of your symptoms. Your work-up was largely normal today. Disposition Disposition: Home, Self Care
[2022-11-24 23:36] VITALS: BP 121/69; PULSE 66; RESP 16; O2SAT 97
== END 2022-11-24 23:42 | disposition home or self-care (01) ==
PROVIDERS: Emergency Provider Emergency Medicine; Visit Provider Emergency Medicine
DX: R07.89 Other chest pain (principal); G44.209 Tension-type headache, unspecified, not intractable; Z90.49 Acquired absence of other specified parts of digestive tract; F17.290 Nicotine dependence, other tobacco product, uncomplicated
CPT/HCPCS: 71045; 80048; 84484; 85025; 93005; 96361; 96372; 96374; 96375; 99285; J7030; A4216; J2405; J3030

== ENCOUNTER 2023-10-21 07:41 | Emergency (ER) | payer MEDICAID, SELFPAY ==
[2023-10-21 07:42] VITALS: BP 110/74; PULSE 84; RESP 14; TEMP 36.3; O2SAT 100; BMI 25.9
--- NOTE | 2023-10-21 07:51 | EDS_ITS ---
HPI HPI - GI History of Present Illness Chief Complaint: Abd Pain Informant: patient Abdominal Pain/Flank Pain Onset: Yesterday Context: Sudden Onset Timing: Continuous Quality: Cramping Location: LUQ Worsened by: - (Activity) Relieved by: - (Laying down and heating pad) Nausea/Vomiting/Emesis GI Symptom: Positive for Nausea; Negative for Vomiting Diarrhea/Melena/Hematochezia GI Symptom: Negative for Diarrhea, Melena or Hematochezia Associated Symptoms Associated Symptoms: Negative for Dysuria, Frequency or Hematuria Narrative Narrative: Patient presents with abdominal pain that began yesterday. Patient states she has been having some nausea for the past 3 days. Patient denies any vomiting. Patient denies any hematemesis or coffee-ground emesis. Patient denies any diarrhea, melena, or hematochezia. Patient denies any dysuria, frequency, or hematuria. Patient states her abdominal pain began rather suddenly. Patient states it is mainly over the left side of her abdomen. Patient describes it as cramping. Patient states it has been constant. Patient states it is worse with activity. Patient states it is better with laying down and using a heating pad. [facility] Medical History (Updated 10/21/23 @ 17:[address] Trent Carr DO) Abdominal adhesions Asthma Endometriosis Home Medications NK 10/21/23 [History Last Taken Unknown] Allergy/AdvReac Type Severity Reaction Status Date / Time codeine Allergy Rash Verified 10/21/23 07:42 gabapentin Allergy Other Verified 10/21/23 07:42 latex Allergy Rash Verified 10/21/23 07:42 Surgical History (Updated 10/21/23 @ 08:[address] Trent Carr DO) H/O tubal ligation History of appendectomy History of hysterectomy Hx of cholecystectomy Social History Smoking Status: Current every day smoker tobacco type: e-cigarettes ROS ROS ED Constitutional Constitutional ED: Reports fever(s); Denies chills Eyes Eyes: Denies blurry vision or change in vision ENT ENT ED: Reports rhinorrhea and sore throat Cardiovascular Cardiovascular: Denies chest pain or palpitations Respiratory/Chest Respiratory/Chest: Reports cough; Denies dyspnea Gastrointestinal Gastrointestinal: Reports abdominal pain and nausea; Denies vomiting Genitourinary Genitourinary ED: Denies dysuria or hematuria Musculoskeletal Musculoskeletal: Reports back pain; Denies neck pain Integumentary Denies abscess or rash Neurologic Neurologic: Reports headache(s); Denies weakness Allergic/Immunologic Allergic/Immunologic ED: Denies mouth swelling or urticaria EXAM Physical Exam Const Vital Signs: 10/21/23 07:42 10/21/23 09:41 10/21/23 11:00 Temperature 97.3 F L Temperature Source Temporal Pulse Rate 84 65 59 L Respiratory Rate 14 16 18 Blood Pressure 110/74 131/82 H Blood Pressure Mean 86 98 Pulse Ox 100 99 99 Oxygen Delivery Method Room Air Room Air Room Air 10/21/23 13:00 10/21/23 13:04 Temperature 97.3 F L Temperature Source Pulse Rate 71 71 Respiratory Rate 16 16 Blood Pressure 94/68 94/68 Blood Pressure Mean 76 76 Pulse Ox 99 99 Oxygen Delivery Method Room Air Positive well nourished and well developed General Appearance ED: well developed and NAD HEENT Reports moist mucous membranes Neck supple and no JVD Resp normal respiratory effort and clear to auscultation bilaterally Cardio regular rate and regular rhythm GI non-distended Palpation: soft and tender LLQ and LUQ; Negative for guarding or rebound tenderness present Neuro CN's II-XII intact bilaterally, moves all extremities and no sensory deficits noted Sensorium / Orientation: alert Motor Exam: strength 5/5 throughout Psych mental status grossly normal MDM MDM MDM Narrative Medical decision making narrative: Differential diagnosis includes bowel obstruction, perforation, gastritis, gastroenteritis, urinary tract infection, pyelonephritis, ureteral calculus, pancreatitis, and viral illness. CBC will be obtained to assess for leukocytosis and anemia. Comprehensive metabolic profile will be obtained to assess for hepatic function, renal function, and electrolyte abnormality. L ipase will be obtained to assess for pancreatitis. Urinalysis will be obtained to assess for urinary tract infection or hematuria. CT scan of the abdomen and pelvis will be obtained to assess for bowel obstruction and perforation. Lab Data Attestation: I reviewed the patient's lab results. Lab results narrative: CBC was reviewed and was within normal limits. Comprehensive metabolic profile was reviewed and was within normal limits. Lipase was reviewed and was within normal limits. Urinalysis was reviewed. There is no evidence of urinary tract infection or hematuria. Labs: Laboratory Results - last 24 hr 10/21/23 10/21/23 07:48 09:42 WBC 7.1 RBC 4.38 Hgb 13.7 Hct 40.4 MCV 92.2 MCH 31.3 MCHC 33.9 RDW Std Deviation 41.1 RDW Coeff of Seth 12.2 Plt Count 271 MPV 9.8 Immature Gran % (Auto) 0.100 Neut % (Auto) 68.6 Lymph % (Auto) 23.1 [place] % (Auto) 5.5 Eos % (Auto) 2.1 Baso % (Auto) 0.6 Absolute Neuts (auto) 4.8 Absolute Lymphs (auto) 1.63 Nucleated RBC % 0 Sodium 140 Potassium 3.7 Chloride 109 H Carbon Dioxide 24.0 Anion Gap 7 BUN 8 Creatinine 0.78 Estim Creat Clear Calc 107.00 Est GFR (MDRD) Af Amer 113 Est GFR (MDRD) Non-Af 94 BUN/Creatinine Ratio 10.3 Glucose 85 Calcium 9.0 Total Bilirubin 0.60 AST 13 L ALT 14 Alkaline Phosphatase 48 Total Protein 7.8 Albumin 4.1 Globulin 3.7 Albumin/Globulin Ratio 1.1 Lipase 51 Urine Color Yellow Urine Clarity Clear Urine pH 6.0 Ur Specific [place] 1.010 Urine Protein Negative Urine Glucose (UA) Normal Urine Ketones Negative Urine Occult Blood Negative Urine Nitrite Negative Urine Bilirubin Negative Urine Urobilinogen Normal Ur Leukocyte Esterase 25 H Urine RBC 0 SEEN Urine WBC 0 SEEN Ur Squamous Epith Cells 0-5 SEEN Urine Bacteria 0 SEEN Urine Mucus 0 SEEN Radiography Diagnostic Testing: Clinical Impression(s) from Imaging Studies Abdomen/Pelvis CT 10/21/23 08:48 IMPRESSION: Normal enhanced CT of the abdomen and pelvis. Electronically Signed: Garett Ba MD at 11:21 EDT , CT scan of the abdomen pelvis was obtained. There is no evidence of bowel obstruction or perforation. There is no free air or free fluid. There is no acute abnormality noted. This was interpreted by the radiologist and was also independently reviewed by myself. Treatment and Re-Evaluation :: Nicotine cessation was discussed. Patient was given IV fluids, morphine, and Zofran. Patient is feeling better on reevaluation. Patient was advised of her findings. 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 Patient understood and was agreeable with the plan. All questions were answered. Discharge Plan Triage Chief Complaint: Abd Pain ED Provider: Trent Carr Dx/Rx/DC Orders Clinical Impression: Abdominal pain, Nicotine use disorder Instructions: ED Abdominal Pain Unkn Cause Fem Prescriptions: No Action NK Stand Alone Forms: ED Work / School Excuse Primary Care Provider: LIZETH CHURCHILL Referrals: LIZETH CHURCHILL [Other] - 5-7 Days Disposition Disposition: Home, Self Care Discharge Date/Time: 10/21/23 13:04
--- NOTE | 2023-10-21 08:48 | CT_ITS ---
STUDY: CT ABDOMEN AND PELVIS WITH CONTRAST REASON FOR EXAM: Female, 27 years old. Abdominal pain -- IV PO Contrast RADIATION DOSAGE (If Supplied By Facility): CTDIvol = ( 8.95 ) mGy, DLP = ( 587.77 ) mGycm TECHNIQUE: Transaxial images were obtained from the dome of the diaphragm to the symphysis pubis without oral contrast. IV 100mL Isovue-370 was administered. Sagittal and coronal images were reconstructed. Individualized dose optimization techniques were used for this CT. COMPARISON: Comparison is made with prior study dated July 17, 2020. FINDINGS: The visualized lung bases are unremarkable. The visualized portions of the heart are within normal limits. Normal liver. There are surgical clips in the gallbladder fossa consistent with a prior cholecystectomy. Normal spleen. Normal pancreas. Normal bilateral adrenal glands. Normal right kidney. Normal left kidney. Normal visualized stomach. Normal small intestine. Normal colon. There is non-visualization of the appendix. Normal abdominal aorta. Normal inferior vena cava. Normal retroperitoneum. Normal urinary bladder. Stable 2.5 cm hypodensity in the right iliac is muscle. Normal abdominal wall. Normal osseous structures. CT/Abdomen/Pelvis WITH Contrast IMPRESSION: Normal enhanced CT of the abdomen and pelvis. Electronically Signed: Garett Ba MD at 11:21 EDT ,
[2023-10-21] MEDS: 0.9% Normal Saline (1000mL) 1,000 ML 1000 ML IV (09:09)
[2023-10-21] MEDS: Ondansetron 4 MG/2 ML Vial IV (09:10)
[2023-10-21 09:31] LABS: Bacteria 0 SEEN /hpf (None Seen); Mucous, Urine 0 SEEN /hpf (<or=2+); Red Blood Cells-Urine 0 SEEN /hpf (0-5); White Blood Cells 0 SEEN /hpf (0-5)
[2023-10-21 09:38] LABS: Color, Urine Yellow (Yellow); Glucose, Dipstick Normal (Normal); Ketone-Dipstick Negative (Negative); Leukocyte Esterase-Dipstick 25 /ul (Negative); Nitrite-Dipstick Negative (Negative); Occult Blood-Urine Negative /ul (Negative); Protein-Dipstick Negative (Negative); Urine Bilirubin Dipstick Negative (Negative); Urine Clarity Clear (Clear); Urine Urobilinogen Normal (Normal)
[2023-10-21 09:41] VITALS: PULSE 65; RESP 16; O2SAT 99
[2023-10-21 09:46] LABS: Squamous Epithelial Cells - UA 0-5 SEEN /hpf (5-10)
[2023-10-21 09:57] LABS: Absolute Lymphocyte Count 1.63 X10^3/uL (0.83-4.51); Absolute Neutrophil Count 4.8 X10^3/uL (2.0-7.7); Basophil# 0.04 X10^3/uL; Basophil% 0.6 % (0-1); Eosinophil# 0.15 X10^3/uL; Eosinophils% 2.1 % (0-5); Hematocrit 40.4 % (37-47); Hemoglobin 13.7 g/dL (12.0-15.0); Lymphocyte # 1.63 X10^3/ul (0.83-4.51); Lymphocyte % 23.1 % (19-41); Mean Corp Hgb Conc 33.9 g/dL (32-36); Mean Corpuscular Hgb 31.3 pg (27.0-32.0); Mean Corpuscular Volume 92.2 fL (81-99); Mean Platelet Vol. 9.8 fl (6.2-12.0); Monocyte# 0.39 X10^3/uL; Monocyte% 5.5 % (0-10); NRBC Flagged by Analyzer 0 % (0-5); Neutrophil # 4.83 X10^3/uL (2.7-7.7); Neutrophil % 68.6 % (47-70); Platelet Count 271 K/mm3 (150-450); RBC Distribution Width CV 12.2 % (11.6-14.6); RBC Distribution Width SD 41.1 fl (35.1-43.9); Red Blood Count 4.38 M/mm3 (4.2-5.4); White Blood Count 7.1 K/mm3 (4.4-11.0)
[2023-10-21 10:15] LABS: ALB/GLOB Ratio 1.1 RATIO (0.9-2.4); AST(SGOT) 13 U/L (15-37); Alanine Aminotransfer ALT/SGPT 14 U/L (13-56); Albumin, Serum 4.1 g/dL (3.2-5.0); Alkaline Phosphatase 48 U/L (45-117); Anion Gap 7 (5-15); BUN 8 mg/dL (7-18); BUN/Creat Ratio 10.3 RATIO (10-20); Chloride 109 mmol/L (98-107); Creatinine, Serum 0.78 mg/dL (0.55-1.02); EST Glomerular Filtration Rate 94 mL/min (>60); Est Glom Filt Rate - Afr Amer 113 mL/min (>60); Globulin 3.7 g/dL (2.2-4.2); Glucose 85 mg/dL (74-106); Lipase 51 U/L (13-75); Potassium 3.7 mmol/L (3.5-5.1); Protein, Total 7.8 g/dL (6.4-8.2); Sodium Level 140 mmol/L (136-145)
[2023-10-21 11:00] VITALS: BP 131/82; PULSE 59; RESP 18; O2SAT 99
[2023-10-21 13:00] VITALS: BP 94/68; PULSE 71; RESP 16; O2SAT 99
[2023-10-21 13:04] VITALS: BP 94/68; PULSE 71; RESP 16; TEMP 36.3; O2SAT 99
== END 2023-10-21 13:04 | disposition home or self-care (01) ==
PROVIDERS: Emergency Provider Emergency Medicine; Visit Provider Emergency Medicine
DX: R10.12 Left upper quadrant pain (principal); R11.2 Nausea with vomiting, unspecified; Z98.51 Tubal ligation status; Z90.49 Acquired absence of other specified parts of digestive tract; Z90.710 Acquired absence of both cervix and uterus; F17.290 Nicotine dependence, other tobacco product, uncomplicated
CPT/HCPCS: 36415; 74177; 80053; 81001; 83690; 85025; 96361; 96374; 99282; J7030; Q9967; J2405

== ENCOUNTER 2024-02-13 19:54 | Emergency (ER) | payer MEDICAID, SELFPAY ==
[2024-02-13 19:55] VITALS: BP 112/71; PULSE 85; RESP 17; TEMP 36.1; O2SAT 99; BMI 24.9
--- NOTE | 2024-02-13 20:23 | EDS_ITS ---
HPI HPI - GI History of Present Illness Chief Complaint: Abd Pain Informant: patient Abdominal Pain/Flank Pain Onset: Today Context: Gradual Onset Timing: Continuous Quality: Dull and Sharp Location: LUQ, RLQ and Right Flank Worsened by: - (Standing, walking) Relieved by: Nothing Nausea/Vomiting/Emesis GI Symptom: Positive for Nausea and Vomiting Onset: Today Quality: Positive for Nonbilious; Negative for Blood streaks, Coffee ground or Hematemesis Diarrhea/Melena/Hematochezia GI Symptom: Negative for Diarrhea, Melena or Hematochezia Associated Symptoms Associated Symptoms: Positive for Dysuria; Negative for Frequency, Hematuria or Urgency Narrative Narrative: Patient presents with abdominal pain that began today. Patient states it began around 1 PM today. Patient states it started gradually. Patient states it has been constant. Patient describes her pain as dull but became sharp. Patient states her pain started in the left upper quadrant and then radiated to the right lower quadrant and into her back. Patient states her pain is worse with standing and walking. Patient is nothing makes it better. Patient admits to some nausea and vomiting. Patient denies any hematemesis or coffee-ground emesis. Patient denies any diarrhea, melena, or hematochezia. Patient admits to some pain with urination. Patient denies any frequency or hematuria. Patient had a hysterectomy 2 years ago. [facility] Medical History (Updated 02/13/24 @ 23:[address] Trent Carr DO) Gastroparesis Asthma Abdominal adhesions Endometriosis Home Medications ?Medication ?Instructions ?Recorded ?Last Taken ?Type pantoprazole 40 mg tablet,delayed 40 mg PO DAILY 02/13/24 Unknown History release Allergy/AdvReac Type Severity Reaction Status Date / Time codeine Allergy Rash Verified 02/13/24 19:55 gabapentin Allergy Other Verified 02/13/24 19:55 latex Allergy Rash Verified 02/13/24 19:55 Surgical History History of hysterectomy H/O tubal ligation History of appendectomy Hx of cholecystectomy Social History Smoking Status: Current every day smoker tobacco type: e-cigarettes ROS ROS ED Constitutional Constitutional ED: Denies chills or fever(s) Eyes Eyes: Denies blurry vision or change in vision ENT ENT ED: Denies rhinorrhea or sore throat Cardiovascular Cardiovascular: Denies chest pain or palpitations Respiratory/Chest Respiratory/Chest: Denies cough or dyspnea Gastrointestinal Gastrointestinal: Reports abdominal pain, nausea and vomiting; Denies diarrhea or melena Genitourinary Genitourinary ED: Reports dysuria; Denies hematuria or urinary frequency Musculoskeletal Musculoskeletal: Reports back pain and neck pain Integumentary Denies abscess or rash Neurologic Neurologic: Denies headache(s) or weakness Allergic/Immunologic Allergic/Immunologic ED: Denies mouth swelling or urticaria EXAM Physical Exam Const Vital Signs: 02/13/24 19:55 02/13/24 21:55 02/13/24 22:51 Temperature 96.9 F L 98.1 F 97.9 F Temperature Source Temporal Oral Oral Pulse Rate 85 63 68 Respiratory Rate 17 16 16 Blood Pressure 112/71 102/50 L 90/58 L Blood Pressure Mean 84 67 68 Pulse Ox 99 95 95 Oxygen Delivery Method Room Air Room Air Room Air 02/13/24 23:22 Temperature 98.1 F Temperature Source Pulse Rate 80 Respiratory Rate 16 Blood Pressure 100/64 Blood Pressure Mean 76 Pulse Ox 97 Oxygen Delivery Method Positive well nourished and well developed General Appearance ED: well developed and NAD HEENT Reports moist mucous membranes normocephalic and atraumatic Neck supple and no JVD Resp normal respiratory effort and clear to auscultation bilaterally Cardio regular rate and regular rhythm GI Palpation: soft and tender epigastric, LLQ, RLQ, LUQ, RUQ, periumbilical and suprapubic; Negative for rebound tenderness present Neuro CN's II-XII intact bilaterally, moves all extremities and no sensory deficits noted Sensorium / Orientation: alert Motor Exam: strength 5/5 throughout Psych mental status grossly normal MDM MDM MDM Narrative Medical decision making narrative: Differential diagnosis includes bowel obstruction, perforation, ureteral calculus, choledocholithiasis, pancreatitis, urinary tract infection, pyelonephritis, and viral illness. CT scan of the abdomen and pelvis will be obtained to assess for bowel obstruction, perforation, and ureteral calculus. CBC will be obtained to assess for leukocytosis and anemia. Comprehensive metabolic profile will be obtained to assess for hepatic function, renal function, and electrolyte abnormality. Lipase will be obtained to assess for pancreatitis. Urinalysis will be obtained to assess for urinary tract infection and hematuria. Lab Data Attestation: I reviewed the patient's lab results. Lab results narrative: CBC was reviewed and was within normal limits. Comprehensive metabolic profile was reviewed and was within normal limits. Lipase was reviewed and was normal at 44. Urinalysis was reviewed. There is no evidence of urinary tract infection or hematuria. Labs: Laboratory Results - last 24 hr 02/13/24 02/13/24 20:13 20:50 WBC 7.0 RBC 4.10 L Hgb 12.8 Hct 37.2 MCV 90.7 MCH 31.2 MCHC 34.4 RDW Std Deviation 38.9 RDW Coeff of Seth 11.9 Plt Count 283 MPV 9.9 Immature Gran % (Auto) 0.300 Neut % (Auto) 51.6 Lymph % (Auto) 39.4 [place] % (Auto) 5.8 Eos % (Auto) 2.3 Baso % (Auto) 0.6 Absolute Neuts (auto) 3.6 Absolute Lymphs (auto) 2.76 Nucleated RBC % 0 Sodium 139 Potassium 3.7 Chloride 107 Carbon Dioxide 24.0 Anion Gap 8 BUN 7 Creatinine 0.65 Estim Creat Clear Calc 115.95 Est GFR (MDRD) Af Amer 140 Est GFR (MDRD) Non-Af 116 BUN/Creatinine Ratio 10.8 Glucose 84 Calcium 9.6 Total Bilirubin 0.40 AST 11 L ALT 12 L Alkaline Phosphatase 48 Total Protein 7.5 Albumin 4.2 Globulin 3.3 Albumin/Globulin Ratio 1.3 Lipase 44 Urine Color Yellow Urine Clarity Clear Urine pH 7.0 Ur Specific [place] 1.005 Urine Protein Negative Urine Glucose (UA) Normal Urine Ketones Negative Urine Occult Blood Negative Urine Nitrite Negative Urine Bilirubin Negative Urine Urobilinogen Normal Ur Leukocyte Esterase Negative Urine RBC 0 SEEN Urine WBC 0 SEEN Ur Squamous Epith Cells 0-5 SEEN Urine Bacteria 0 SEEN Urine Mucus 0 SEEN Radiography Diagnostic Testing: Clinical Impression(s) from Imaging Studies Abdomen/Pelvis CT 02/13/24 20:31 IMPRESSION: 1. Constipation. 2. Cholecystectomy. 3. Common bile duct is dilated measuring 1.1 cm and there is mild intrahepatic biliary dilatation not significantly changed as previous exam. This is likely chronic postcholecystectomy. 4. Hysterectomy. Electronically Signed: Jake Edmondson MD at 22:49 EDT , CT scan of the abdomen and pelvis was obtained. There is stool throughout the colon consistent with constipation. There is no acute abnormality noted. This was interpreted by the radiologist and was also independently reviewed by myself. Treatment and Re-Evaluation :: Nicotine cessation was discussed. Patient was given IV fluids, morphine, and Zofran initially. Patient was still having some pain on reevaluation. Patient was given a dose of Toradol. Patient was instructed to follow-up with her primary care physician in 5 to 7 days. Patient was instructed use [id number] laxatives. Patient was instructed to return if worse in any way. Patient understood and was agreeable with the plan. All questions were answered. Discharge Plan Triage Chief Complaint: Abd Pain ED Provider: Trent Carr Dx/Rx/DC Orders Clinical Impression: Constipation, Abdominal pain, Nicotine vapor product user Instructions: ED Constipation (Adult) Prescriptions: No Action pantoprazole 40 mg tablet,delayed release (DR/EC) 40 mg PO DAILY Primary Care Provider: Nahum Rodrigues Referrals: Nahum Rodrigues PA [Primary Care Provider] - 3-5 Days Print Language: Indonesian Disposition Disposition: Home, Self Care
--- NOTE | 2024-02-13 20:31 | CT_ITS ---
EXAM: CT ABDOMEN AND PELVIS WITH INTRAVENOUS CONTRAST CLINICAL INDICATION: Abdominal pain -- IV PO Contrast TECHNIQUE: Helically acquired images were obtained of the abdomen and pelvis with intravenous contrast. This CT exam was performed using one or more of the following dose reduction techniques: automated exposure control, adjustment of the mA and/or kV according to patient size, and/or use of iterative reconstruction technique. CONTRAST: 75 cc of Isovue-370 IV. Oral Gastrografin. RADIATION DOSE: CTDIvol = 9.53 mGy, DLP = 615.71 mGy-cm COMPARISON: 10/21/2023. FINDINGS: LOWER THORAX: Unremarkable. Lung bases are clear. No cardiomegaly. No significant pericardial effusion. ABDOMEN: LIVER: Unremarkable. Homogeneous. No focal mass. GALLBLADDER AND BILE DUCTS: Cholecystectomy. Common bile duct is dilated measuring 1.1 cm and there is mild intrahepatic biliary dilatation not significantly changed as previous exam. PANCREAS: Unremarkable. No focal cystic or solid mass. SPLEEN: Unremarkable. Normal size without focal cystic or solid mass. ADRENALS: Unremarkable. No nodules. KIDNEYS AND URETERS: Unremarkable. Normal renal size and position. No hydronephrosis. STOMACH AND BOWEL: Large amount of fecal material throughout the colon. No stomach or bowel distention. No focal inflammatory change. PELVIS: APPENDIX: No evidence of acute appendicitis. BLADDER: Unremarkable. REPRODUCTIVE: Hysterectomy. ABDOMEN and PELVIS: INTRAPERITONEAL SPACE: Unremarkable. No ascites or other fluid collection. No free air. BONES/JOINTS: Unremarkable. No suspicious lytic or blastic abnormality. SOFT TISSUES: Unremarkable. No discrete abdominal or pelvic wall hernia. VASCULATURE: Unremarkable. Abdominal aorta is non-dilated. LYMPH NODES: Unremarkable. No enlarged lymph nodes. CT/Abdomen/Pelvis WITH Contrast IMPRESSION: 1. Constipation. 2. Cholecystectomy. 3. Common bile duct is dilated measuring 1.1 cm and there is mild intrahepatic biliary dilatation not significantly changed as previous exam. This is likely chronic postcholecystectomy. 4. Hysterectomy. Electronically Signed: Jake Edmondson MD at 22:49 EDT ,
[2024-02-13] MEDS: 0.9% Normal Saline (1000mL) 1,000 ML 999 ML IV (20:46)
[2024-02-13] MEDS: Morphine 4 MG/ML Syringe IV (20:47)
[2024-02-13 20:48] LABS: Absolute Lymphocyte Count 2.76 X10^3/uL (0.83-4.51); Absolute Neutrophil Count 3.6 X10^3/uL (2.0-7.7); Basophil# 0.04 X10^3/uL; Basophil% 0.6 % (0-1); Eosinophil# 0.16 X10^3/uL; Eosinophils% 2.3 % (0-5); Hematocrit 37.2 % (37-47); Hemoglobin 12.8 g/dL (12.0-15.0); Lymphocyte # 2.76 X10^3/ul (0.83-4.51); Lymphocyte % 39.4 % (19-41); Mean Corp Hgb Conc 34.4 g/dL (32-36); Mean Corpuscular Hgb 31.2 pg (27.0-32.0); Mean Corpuscular Volume 90.7 fL (81-99); Mean Platelet Vol. 9.9 fl (6.2-12.0); Monocyte# 0.41 X10^3/uL; Monocyte% 5.8 % (0-10); NRBC Flagged by Analyzer 0 % (0-5); Neutrophil # 3.62 X10^3/uL (2.7-7.7); Neutrophil % 51.6 % (47-70); Platelet Count 283 K/mm3 (150-450); RBC Distribution Width CV 11.9 % (11.6-14.6); RBC Distribution Width SD 38.9 fl (35.1-43.9)
[2024-02-13] MEDS: Ondansetron 4 MG/2 ML Vial IV (20:49)
[2024-02-13 21:04] LABS: Bacteria 0 SEEN /hpf (None Seen); Mucous, Urine 0 SEEN /hpf (<or=2+); Red Blood Cells-Urine 0 SEEN /hpf (0-5); White Blood Cells 0 SEEN /hpf (0-5)
[2024-02-13 21:08] LABS: Color, Urine Yellow (Yellow); Glucose, Dipstick Normal (Normal); Ketone-Dipstick Negative (Negative); Leukocyte Esterase-Dipstick Negative /ul (Negative); Nitrite-Dipstick Negative (Negative); Occult Blood-Urine Negative /ul (Negative); Protein-Dipstick Negative (Negative); Specific Gravity, Urine 1.005 (1.002-1.030); Urine Bilirubin Dipstick Negative (Negative); Urine Clarity Clear (Clear); Urine Urobilinogen Normal (Normal)
[2024-02-13 21:16] LABS: ALB/GLOB Ratio 1.3 RATIO (0.9-2.4); AST(SGOT) 11 U/L (15-37); Alanine Aminotransfer ALT/SGPT 12 U/L (13-56); Albumin, Serum 4.2 g/dL (3.2-5.0); Alkaline Phosphatase 48 U/L (45-117); Anion Gap 8 (5-15); BUN 7 mg/dL (7-18); BUN/Creat Ratio 10.8 RATIO (10-20); Calcium,Total 9.6 mg/dL (8.5-10.1); Chloride 107 mmol/L (98-107); Creatinine, Serum 0.65 mg/dL (0.55-1.02); EST Glomerular Filtration Rate 116 mL/min (>60); Est Glom Filt Rate - Afr Amer 140 mL/min (>60); Estimated Creatinine Clearance 115.95 ml/min; Globulin 3.3 g/dL (2.2-4.2); Glucose 84 mg/dL (74-106); Lipase 44 U/L (13-75); Potassium 3.7 mmol/L (3.5-5.1); Protein, Total 7.5 g/dL (6.4-8.2); Sodium Level 139 mmol/L (136-145)
[2024-02-13 21:46] LABS: Squamous Epithelial Cells - UA 0-5 SEEN /hpf (5-10)
[2024-02-13 21:55] VITALS: BP 102/50; PULSE 63; RESP 16; TEMP 36.7; O2SAT 95
[2024-02-13 22:51] VITALS: BP 90/58; PULSE 68; RESP 16; TEMP 36.6; O2SAT 95
[2024-02-13] MEDS: Ketorolac 30 MG/ML Syringe IV (22:58)
[2024-02-13 23:22] VITALS: BP 100/64; PULSE 80; RESP 16; TEMP 36.7; O2SAT 97
== END 2024-02-13 23:32 | disposition home or self-care (01) ==
PROVIDERS: Emergency Provider Emergency Medicine; PCP Physician Assistant; Visit Provider Emergency Medicine
DX: R10.9 Unspecified abdominal pain (principal); R11.2 Nausea with vomiting, unspecified; K59.00 Constipation, unspecified; Z90.710 Acquired absence of both cervix and uterus; Z98.51 Tubal ligation status; Z90.49 Acquired absence of other specified parts of digestive tract; F17.290 Nicotine dependence, other tobacco product, uncomplicated
CPT/HCPCS: 74177; 80053; 81001; 83690; 85025; 96361; 96374; 96375; 99284; J7030; Q9967; A4216; J2405

== ENCOUNTER → 2025-01-20 | Outpatient (CLI) | payer MEDICAID, SELFPAY ==
--- OUTSIDE RECORDS SUMMARY | 2025-01-20 14:24 | XMS RPT_ITS | CCD ---
Author Organization [facility] Informat ion Partnership [facility] Care Team Providers Care Hr Administrator Name Role Phone YENNY MERCHANT Unavailable Unavailable BIATSYENNY Unavailable Unavailable IMCA Unavailable Unavailable Joseph Johnson Primary Care Provider [phone] Joseph Johnson Primary Care Provider [phone] Joseph Johnson DO Primary Care Provider Joseph Johnson DO Primary Care Provider Joseph Johnson DO Primary Care Provider Joseph Johnson DO Primary Care Provider Joseph Johnson DO Primary Care Provider Lars Crump Attending Unavailable PROVIDER, UNKNOWN Referring Unavailable Joseph Johnson Primary Care Unavailable PROVIDER, UNKNOWN Referring Unavailable Joseph Johnson Primary Care Unavailable Lars Crump Attending Unavailable PROVIDER, UNKNOWN Referring Unavailable Joseph Johnson Primary Care Unavailable Lars Crump Attending Unavailable Joseph Johnson DO Primary Care Provider Joseph Johnson DO Primary Care Provider Unavailable Primary Care Provider UnavailJoseph Donato DO Primary Care Provider Lizeth Churchill PA-C Primary Care Provider Lizeth Churchill PA-C Primary Care Provider Joseph Johnson DO Primary Care Provider Unavailable Primary Care Provider UnavailLizeth Clement PA-C Primary Care Provider Petrilla DO, Philippe Primary Care Provider Trent Carr Attending Unavailable Lizeth Churchill Primary Care Unavailable ATIYA JONATHAN SRAVANI HAMMER Primary Care Unavailable Trent Carr Attending Unavailable Petrilla DO, Philippe Primary Care Provider Alex DO, Joseph Coon Primary Care Provider Petrillparrish , [facility] Primary Care Provide r CLARITZAA, [facility] Primary Care Unavail able NASIMARosalio JOSEPH SIDRA Primary Care Unavailabl e PETRILLA, [facility] Primary Care Unavail able PETRILLA, [facility] Primary Care Unavail able PETRILLA, [facility] Primary Care Unavail able DEO FELICIANO Referring Unavailable PETRILLA, [facility] Primary Care Unavail able PETRILLA, [facility] Primary Care Unavail able CHERELLE RODRIGUEZ Attending Unavailable CLARITZAMARY [facility], [facility] Primary Care Unavail able MICHAEL PARKER Attending Unavaila ble PETRILLA, [facility] Primary Care Unavail able PETRILLA, [facility] Primary Care Unavail able JAGUAR PERSON Attending Unavailable PETRILLA, [facility] Primary Care Unavail able PETRILLA, [facility] Primary Care Unavail able LEILANI YU Referring Unavailable PETRILLA, [facility] Primary Care Unavail able PETRILLA, [facility] Primary Care Unavail able [place], [place] Primary Care Unavailable ASHELY ABDI Attending Unavailable [place]LLA, [place] Primary Care Unavailable REZA PALOMO Attending Unavailable LENIN DE LOS SANTOS Attending Unavailable PETRILLA, PHILIPPE Primary Care Unavailable NEPTALI PERERA Attending Unavailable PET[place]LLA, [place] Primary Care Unavailable BARTOLO BATRES Attending Unavailable LENIN DE LOS SANTOS Attending Unavailable PETRILLA, [place] Primary Care Unavailable SCOOTER GUNDERSON Attending Unavailable PETRILLA, [place] Primary Care Unavailable PETRILLA, PHILIPPE Primary Care Unavailable SCOOTER GUNDERSON Attending Unavailable SCOOTER GUNDERSON Attending Unavailable PETRILLA, [place] Primary Care Unavailable PETRILLA, PHILIPPE Attending Unavailable PET[place]LLA, [place] Primary Care Unavailable NEPTALI PERERA Referring Unavailable LENIN DE LOS SANTOS Attending Unavailable LENIN DE LOS SANTOS Referring Unavailable PETRILLA, PHILIPPE Primary Care Unavailable SCOOTER GUNDERSON Attending Unavailable SCOOTER GUNDERSON Referring Unavailable PHILIPPE CHUA Primary Care Unavailable LENIN DE LOS SANTOS Attending Unavailable LENIN DE LOS SANTOS Referring Unavailable CLARITZAKATLYNParrish, PHILIPPE Primary Care Unavailable DE LOS SANTOSLENIN Attending Unavailable TOMA, PHILIPPE Primary Care Unavailable PHILIPPE CHUA Attending Unavailable TOMA, PHILIPPE Primary Care Unavailable TOMA, PHILIPPE Primary Care Unavailable NATALIA MARK Attending Unavaila ble Allergies Allergy Classification Reported Allergen(s) Allergy Type Date of Onset Reaction(s) Facility Anti-Epileptic Agents (8 sources) gabapentin Drug Allergy 0 Other (See Comments), Other [facility] Cephalosporins (antibiotic) (1 source) Cephalexin Drug Allergy 3 Nausea And Vomiting Latex (8 sources) Latex Substance Allergy 7 Rash, Itching [facility] Ondansetron (4 sources) Ondansetron Drug Allergy 0 Rash, Itching [facility] Opioid Agonists (9 sources) Codeine Drug Allergy 7 Itching, Rash [facility] (20 sources) codeine; Translations: [CODEINE] Drug Allergy 7 Itching, Rash [facility] Repository (20 sources) Latex; Translations: [LATEX] Propensity to adverse reactions (disorder) 7 Rash, Itching, Hives [facility] Repository (20 sources) Seasonal allergy; Translations: [SEASONAL ALLERGIES] Propensity to adverse reactions (disorder) 6 Other: See Comments [facility] Repository (20 sources) Ondansetron; Translations: [ONDANSETRON] Drug Allergy 0 Rash, Itching [place], [place] (20 sources) gabapentin; Translations: [GABAPENTIN] Drug Allergy 0 Other (See Comments), Other: See Comments, Unknown, Other [place], [place] (20 sources) Cephalexin Drug Allergy 3 Nausea And Vomiting (17 sources) Other Allergy to substance 6 Other (20 sources) Octacosanol Propensity to adverse reactions 3 (20 sources) Morphine Drug Allergy 4 (1 source) gabapentin Drug Allergy 4 [facility] Repository (7 sources) oxyCODONE; Translations: [OXYCODONE] Drug Allergy 4 GI Upset [facility] Medications Current Medications Medication Drug Class(es) Dates Sig (Normalized) Sig (Original) acetaminophen 325 mg / oxyCODONE hydrochloride 5 mg oral tablet (15 sources) Opioid Agonist Start: 03-27-2021 End: 04-01-2021 oxyCODONE-acetamin ophen (PERCOCET) 5-325 MG per tablet Indications: Right lower quadrant abdominal pain Take 1 tablet by mouth every 6 hours as needed for Pain for up to 5 days. Intended supply: 5 days. Take lowest dose possible to manage pain 20 tablet 0 03/27/2021 04/01/2021 Active Start: 02-17-2021 End: 02-17-2021 oxyCODONE-acetaminophen (PER COCET) 5-325 MG per tablet 1 tablet Start: 12-16-2020 End: 12-23-2020 take 1 tablet by mouth every six hours as needed for pain oxyCODONE-acetaminophen (PERCOCET) 5-325 MG per tablet Indications: Hydronephrosis of right kidney Take 1 tablet by mouth every 6 hours as needed for Pain for up to 7 days. 10 tablet 0 12/16/2020 12/23/2020 Active Start: 12-06-2020 End: 12-09-2020 oxyCODONE-acetaminophen (PER COCET) 5-325 MG per tablet Indications: Intractable abdominal pain Take 1 tablet by mouth every 8 hours as needed for Pain for up to 3 days. Intended supply: 3 days. Take lowest dose possible to manage pain 5 tablet 0 12/06/2020 12/09/2020 Active Start: 07-18-2020 End: 07-21-2020 take 1 tablet by mouth every six hours as needed Oxycodone-Acetaminophen Discontinued 1 TABLET PO EVERY 6 HOURS NEEDED 07 11July 18, 2020 July 21, 2020 1:03am Start: 02-23-2020 End: 02-26-2020 take 1 tablet by mouth every six hours as needed for pain, then take 1 tablet by mouth as needed for pain oxyCODONE-acetaminophen (PERCOCET) 5-325 MG per tablet Indications: Abdominal pain, unspecified abdominal location Take 1 tablet by mouth every 6 hours as needed for Pain for up to 3 days. Intended supply: 3 days. Take lowest dose possible to manage pain 5 tablet 0 02/23/2020 02/26/2020 Active Start: 02-11-2020 End: 02-14-2020 take 1 tablet by mouth every six hours as needed Oxycodone-Acetaminophen Discontinued 1 TABLET PO EVERY 6 HOURS NEEDED 10 February 11, 2020 February 14, 2020 12:02am Start: 01-26-2020 End: 01-26-2020 oxyCODONE-acetaminophen (PER COCET) 5-325 MG per tablet 1 tablet Start: 01-26-2020 End: 01-29-2020 take 1 tablet by mouth every eight hours as needed for pain, then take 1 tablet by mouth as needed for pain oxyCODONE-acetaminophen (PERCOCET) 5-325 MG per tablet Indications: Lower abdominal pain Take 1 tablet by mouth every 8 hours as needed for Pain for up to 3 days. Intended supply: 3 days. Take lowest dose possible to manage pain 3 tablet 0 01/26/2020 01/29/2020 Active Start: 07-28-2019 End: 07-28-2019 oxyCODONE-acetaminophen (PER COCET) 5-325 MG per tablet 1 tablet Start: 05-20-2019 End: 05-27-2019 take 1 tablet by mouth every six hours as needed for pain oxyCODONE-acetaminophen (PERCOCET) 5-325 MG per tablet Indications: Duodenal mass Take 1 tablet by mouth every 6 hours as needed for Pain for up to 7 days. 25 tablet 0 05/20/2019 05/27/2019 Active take 1 tablet by sosa every four hours as needed for pain oxyCODONE-acetaminophen (PERCOCET) 5-325 MG per tablet Take 1 tablet by mouth every 4 hours as needed for Pain. 0 Active oxyCODONE-Acetam inophen (PERCOCET PO) Take by mouth 0 Active [id number] 200 actuat albuterol 0.09 mg/actuat metered dose inhaler (20 sources) beta2-Adrenergic Agonist Start: 06-03-2022 End: 02-22-2024 take 2 puff(s) by mouth every six hours albuterol 108 (90 Base) MCG/ACT inhaler inhale 2 puffs by mouth and INTO THE LUNGS every 6 hours if neede... (REFER TO PRESCRIPTION NOTES). 06/03/2022 02/22/2024 Discontinued (Patient refused) Start: 08-16-2021 End: 01-25-2023 take 2 puff(s) by inhalation every four hours as needed albuterol HFA (PROVENTIL HFA, VENTOLIN HFA) 90 mcg/actuation inhaler Indications: Mild intermittent asthma, unspecified whether complicated Inhale 2 Puffs as instructed every 4 hours as needed. 18 g 0 08/16/2021 01/25/2023 Discontinued (Course of therapy completed) Start: 08-17-2020 End: 05-15-2024 take 2 puff(s) by inhalation every six hours as needed albuterol 108 (90 Base) MCG/ACT inhaler Inhale 2 puffs every 6 hours as needed. 08/17/2020 Active Start: 08-17-2020 take 2 puff(s) by in halation every four hours as needed albuterol sulfate HFA 108 (90 Base) MCG/ACT inhaler Inhale 2 puffs into the lungs every 4 hours as needed 0 08/17/2020 Active Start: 05-12-2019 take 2 puff(s) by in halation every four hours as needed for wheezing 2 puff, Inhalation, EVERY 4 HOURS PRN, Wheezing, Starting 05/12/19 at 1823 End: 02-23-2020 take 2 puff(s) by inhalation every six hours as needed albuterol sulfate HFA 108 (90 Base) MCG/ACT inhaler Inhale 2 puffs into the lungs every 6 hours as needed 0 02/23/2020 Discontinued (Stop Taking at Discharge) take 2 puff(s) by in halation every six hours as needed albuterol sulfate HFA 108 (90 Base) MCG/ACT inhaler Inhale 2 puffs into the lungs every 6 hours as needed 0 Active albuterol sulfat e HFA 108 (90 Base) MCG/ACT inhaler Inhale 2 puffs into the lungs 0 Active albuterol sulfat e HFA 108 (90 Base) MCG/ACT inhaler Inhale 2 puffs into the lungs 0 Active Comment on above: Inhale 2 Puffs as in structed every 4 hours as needed. Inhale 2 Puffs as in structed every 6 hours as needed for wheezing/shortness of breath. albuterol 0.833 mg/ml / ipratropium bromide 0.167 mg/ml inhalation solution (2 sources) Anticholinergic, beta2-Adrenergic Agonist Start: 07-25-2019 1 ampule, Inhalation, EVERY 4 HOURS PRN, Shortness of Breath, Starting Wed07/25/19 at 0100 Start: 05-16-2019 1 ampule, Inha lation, EVERY 4 HOURS PRN, Shortness of Breath, Starting Wed05/16/19 at 1732 amitriptyline hydrochloride 10 mg oral tablet (4 sources) Tricyclic Antidepressant Start: 07-26-2019 take 1 tablet by mouth once daily amitriptyline (ELAVIL) 10 MG tablet Take 1 tablet by mouth nightly 30 tablet 1 07/27/2019 Active amoxicillin 875 mg / clavulanate 125 mg oral tablet (7 sources) Penicillin-class Antibacterial Start: 09-20-2024 End: 09-25-2024 take 1 tablet by mouth twice daily amoxicillin-clavul anate potassium (AUGMENTIN) 875-125 mg per tablet Take 1 tablet by mouth two times a day for 5 days. 10 tablet 09/20/2024 09/25/2024 Active Start: 08-01-2024 End: 08-11-2024 take 1 tablet by mouth twice daily amoxicillin-clavulanate potassium (AUGMENTIN) 875-125 mg per tablet Indications: Bacterial sinusitis Take 1 tablet by mouth two times a day for 10 days. 20 tablet 08/01/2024 08/11/2024 Active Start: 05-30-2024 End: 06-06-2024 take 1 tablet by mouth twice daily amoxicillin-clavulanate potassium (AUGMENTIN) 875-125 mg per tablet Take 1 tablet by mouth two times a day for 7 days. 14 tablet 05/30/2024 06/06/2024 Active Start: 03-13-2024 End: 03-20-2024 take 1 tablet by mouth twice daily amoxicillin-clavulanate potassium (AUGMENTIN) 875-125 mg per tablet Take 1 tablet by mouth two times a day for 7 days. 14 tablet 0 03/13/2024 03/20/2024 Active Start: 11-21-2023 End: 11-28-2023 take 1 tablet by mouth twice daily amoxicillin-clavulanate potassium (AUGMENTIN) 875-125 mg per tablet Take 1 tablet by mouth two times a day for 7 days. 14 tablet 0 11/21/2023 11/28/2023 Active Start: 06-12-2022 End: 06-17-2022 take 1 tablet by mouth twice daily amoxicillin-clavulanic acid (AUGMENTIN) 875-125 mg per tablet Take 1 tablet by mouth twice daily for 5 days. 10 tablet 0 06/12/2022 06/17/2022 Active Comment on above: Take 1 tablet by sosa th twice daily for 5 days. Take 1 tablet by sosa two times a day for 7 days. benzocaine 6 mg / menthol 10 mg oral lozenge (1 source) Standardized Chemical Allergen Start: 1 Benzocaine-Menthol (CEPACOL) 1 lozenge benzonatate 100 mg oral capsule (10 sources) Non-narcotic Antitussive Start: 5 take 1 capsule by mouth every eight hours as needed benzonatate (TESSALON PERLE) 100 mg capsule Take 1 capsule by mouth three times a day as needed. 21 capsule 09/20/2024 Active Start: 03-09-2024 End: 05-15-2024 take 1 capsule by mouth every eight hours as needed benzonatate (TESSALON PERLES) 100 mg capsule Take 1 capsule by mouth three times a day as needed for cough. 20 capsule 03/09/2024 05/15/2024 Discontinued Start: 07-04-2023 End: 07-14-2023 take 2 capsules by mouth three times daily as needed benzonatate (TESSALON PERLE) 100 mg capsule Indications: Viral bronchitis Take 2 capsules by mouth three times a day as needed for up to 10 days. 60 capsule 07/04/2023 07/14/2023 Comment on above: Take 2 capsules by [facility] three times a day as needed for up to 10 days. bisacodyl 10 mg rectal suppository (4 sources) Stimulant Laxative Start: 07-25-2019 End: 07-26-2019 bisacodyl (DULCOLAX) suppository 10 mg Start: 07-25-2019 bisacodyl (DUL COLAX) EC tablet 5 mg Start: 07-17-2019 bisacodyl (DUL COLAX) suppository 10 mg budesonide 3 mg delayed release oral capsule (7 sources) Corticosteroid Start: 03-27-2021 take 6 mg by mouth once daily 6 mg, Oral, DAILY, First dose on Hazel 03/27/21 at 0900 Do not crush or break. Start: 02-13-2021 End: 03-15-2021 take 1 capsule by mouth once daily in the morning budesonide (ENTOCORT EC) 3 MG extended release capsule Indications: Lymphocytic colitis , Weight loss Take 3 capsules by mouth every morning 90 capsule 0 02/13/2021 03/15/2021 Active BUDESONIDE PO Ta ke by mouth daily 0 Active cephalexin 500 mg oral capsule (5 sources) Cephalosporin Antibacterial Start: 10-07-2024 End: 10-17-2024 take 1 capsule by mouth twice daily cephALEXin (KEFLEX) 500 mg capsule Take 1 capsule by mouth two times a day for 10 days. 20 capsule 10/07/2024 10/17/2024 Active Start: 10-14-2022 End: 10-21-2022 take 1 capsule by mouth twice daily cephalexin (Keflex) 500 MG capsule Indications: Infected skin lesion Take 1 capsule (500 mg) by mouth 2 times daily for 7 days. 14 capsule 0 10/14/2022 10/15/2022 Discontinued (Side effects) Start: 01-26-2020 End: 01-29-2020 cephALEXin (KEFLEX) capsule 500 mg 12 hr dextromethorphan hydrobromide 30 mg / guaiFENesin 600 mg extended release oral tablet (1 source) Uncompetitive V-epxank-X-aspartate Receptor Antagonist, Sigma-1 Agonist Start: 07-08-2023 End: 07-15-2023 take 1 tablet by mouth every twelve hours as needed dextromethorphan-guaiFENesin (MUCINEX DM) 30-600 mg per tablet Take 1 tablet by mouth two times a day as needed for cough for up to 7 days. 14 tablet 0 07/08/2023 07/15/2023 Active Comment on above: Take 1 tablet by sosa th two times a day as needed for cough for up to 7 days. diatrizoate meglumine-sodium (GASTROGRAFIN) 66-10 % solution 30 mL (1 source) Start: 02-20-2020 diatrizoate meglumine-sodium (GASTROGRAFIN) 66-10 % solution 30 mL docusate sodium 100 mg oral capsule (10 sources) Start: 09-15-2022 End: 09-25-2022 take 1 capsule by mouth twice daily docusate sodium (Colace) 100 MG capsule Indications: Constipation, unspecified constipation type Take 1 capsule (100 mg) by mouth 2 times daily for 10 days. 20 capsule 0 09/15/2022 09/25/2022 Active Start: 05-04-2022 End: 06-03-2022 docusate sodium (COLACE) capsule 100 mg Start: 03-27-2021 End: 04-26-2021 take 1 capsule by mouth twice daily docusate sodium (C OLACE) 100 MG capsule Take 1 capsule by mouth 2 times daily 60 capsule 0 03/27/2021 04/26/2021 Active Start: 02-19-2020 take 100 mg by mouth twice daily as needed for constipation 100 mg, Oral, 2 TIMES DAILY PRN, Constipation, Starting 02/19/20 at 2316 Do not crush or break. Start: 05-21-2019 docusate sodiu m (COLACE) capsule 100 mg docusate sodium 50 mg / sennosides, fdc 8.6 mg oral tablet (17 sources) Start: 06-05-2024 End: 06-08-2024 take 2 tablets by mouth in the morning senna-docusate (Kelley-Colace) 8.6-50 MG tablet Take 2 tablets by mouth in the morning and 2 tablets in the evening. Do all this for 3 days. 12 tablet 06/05/2024 06/08/2024 Active Start: 09-06-2019 End: 02-23-2020 take 8.6-50 mg by mouth once senna-docusate (PERICOLAC E) 8.6-50 MG per tablet Take 2 tablets by mouth daily 60 tablet 1 09/06/2019 02/23/2020 Discontinued (LIST CLEANUP) Start: 07-25-2019 sennosides-doc usate sodium (SENOKOT-S) 8.6-50 MG tablet 2 tablet Start: 07-17-2019 sennosides-doc usate sodium (SENOKOT-S) 8.6-50 MG tablet 2 tablet Start: 05-20-2019 take 8.6-50 mg by mouth once s karolina-docusate (PERICOLACE) 8.6- 50 MG per tablet Take 2 tablets by mouth daily 60 tablet 1 05/20/2019 Active Start: 05-14-2019 End: 05-16-2019 sennosides-docusate sodium ( SENOKOT-S) 8.6-50 MG tablet 2 tablet doxycycline hyclate 100 mg oral capsule (1 source) Tetracycline-class Drug Start: 10-15-2022 End: 10-22-2022 doxycycline (Vibramycin) 100 MG capsule Indications: Infected skin lesion Take 1 capsule (100 mg) by mouth 2 times daily for 7 days. Take with at least 8 ounces (large glass) of water, do not lie down for 30 minutes after 14 capsule 0 10/15/2022 10/22/2022 Active 0.4 ml enoxaparin sodium 100 mg/ml prefilled syringe (4 sources) Low Molecular Weight Heparin Start: 03-27-2021 enoxaparin (LOVENOX) injection 40 mg Start: 12-04-2020 End: 12-04-2020 inject 40 mg by subcutaneous injection once daily 40 mg, Subcutaneous, DAILY, First dose on Wed12/04/20 at 0900 Start: 07-25-2019 inject 40 mg by subc utaneous injection once daily 40 mg, Subcutaneous, DAILY, First dose on Wed07/25/19 at 0900 Start: 05-12-2019 inject 40 mg by subc utaneous injection once daily 40 mg, Subcutaneous, DAILY, First dose on Wed05/12/19 at 1900 2 ml fentaNYL 0.05 mg/ml injection (3 sources) Opioid Agonist Start: 12-28-2020 fentaNYL (SUBL IMAZE) injection 25 mcg Start: 02-23-2020 fentaNYL (SUBL IMAZE) injection 50 mcg Start: 02-23-2020 fentaNYL (SUBL IMAZE) injection 25 mcg fluticasone propionate 0.05 mg/actuat metered dose nasal spray (20 sources) Corticosteroid Start: 07-04-2023 fluticasone (F lonase) 50 MCG/ACT nasal spray 2 sprays in the morning. 07/04/2023 Active Start: 07-04-2023 End: 05-15-2024 take 2 spray(s) by mouth once daily fluticasone (FLONASE) 50 mcg/actuation nasal spray Use 2 Sprays in each nostril once daily. Rinse mouth after use. 1 Each 10/19/2023 Active Start: 10-19-2020 End: 01-25-2023 take 2 spray(s) by mouth once daily fluticasone (FLONASE) 50 mcg/actuation nasal spray Use 2 Sprays in each nostril once daily. Rinse mouth after use. 1 Bottle 0 10/19/2020 01/25/2023 Discontinued (Course of therapy completed) Start: 06-06-2020 End: 12-03-2020 take 2 spray(s) nasal route once daily fluticasone (FLONASE) 50 MCG/ACT nasal spray 2 sprays by Each Nostril route daily 1 Bottle 1 06/06/2020 12/03/2020 Discontinued (Therapy completed) Comment on above: Use 2 Sprays in each nostril once daily for 7 days. Rinse mouth after use. Use 2 Sprays in each nostril once daily. Rinse mouth after use. 1 ml hydrALAZINE hydrochloride 20 mg/ml injection (1 source) Arteriolar Vasodilator Start: 02-23-2020 hydrALAZINE (APRESOLINE) injection 5 mg hydrocortisone 10 mg/ml topical cream (1 source) Corticosteroid Start: 05-21-2019 hydrocortisone-aloe 1 % cream hydrOXYzine pamoate 50 mg oral capsule (2 sources) Antihistamine Start: 02-20-2020 hydrOXYzine (VISTARIL) capsule 50 mg Start: 02-20-2020 End: 02-20-2020 hydrOXYzine (VISTARIL) injec tion 25 mg hyoscyamine sulfate 0.125 mg sublingual tablet (4 sources) Start: 03-26-2021 take 125 ug under the tongue every four hours as needed 125 mcg, Sublingual, EVERY 4 HOURS PRN, Cramping, Starting on Wed03/26/21 at 1013 Start: 02-13-2021 End: 03-19-2021 take 1 tablet by mouth every six hours as needed hyoscyamine (LEVSIN) 125 MCG tablet Indications: Generalized abdominal pain Take 1 tablet by mouth every 6 hours as needed for Cramping 180 tablet 1 02/13/2021 03/19/2021 Discontinued (LIST CLEANUP) ibuprofen 600 mg oral tablet (16 sources) Nonsteroidal Anti-inflammatory Drug Start: 05-04-2022 ibuprofen (ADVIL;MOTRIN) tablet 600 mg Start: 02-23-2020 take 1 tablet by sosa th four times daily as needed for pain ibuprofen (ADVIL;MOTRIN) 600 MG tablet Take 1 tablet by mouth 4 times daily as needed for Pain 60 tablet 1 02/23/2020 Active Start: 01-26-2020 End: 02-23-2020 take 1 tablet by mouth three times daily as needed for pain ibuprofen (ADVIL;MOTRIN) 600 MG tablet Take 1 tablet by mouth 3 times daily as needed for Pain 12 tablet 0 01/26/2020 02/23/2020 Discontinued (Stop Taking at Discharge) Start: 08-12-2019 End: 02-21-2020 take 1 tablet by mouth every six hours as needed for pain ibuprofen (IBU) 400 MG tablet Take 1 tablet by mouth every 6 hours as needed for Pain 30 tablet 1 01/26/2020 02/21/2020 Discontinued (Stop Taking at Discharge) Inhalational Spacing Device (2 sources) Start: 07-04-2023 End: 07-04-2023 Inhalational Spacing Device Indications: Viral bronchitis 1 Device one time only for 1 dose. 1 Each 0 07/04/2023 07/04/2023 Active Start: 06-03-2022 End: 06-03-2022 Inhalational Spacing Device Indications: Wheezing 1 Device one time only for 1 dose. 1 Each 0 06/03/2022 06/03/2022 Active Comment on above: 1 Device one time on ly for 1 dose. 4 ml labetalol hydrochloride 5 mg/ml cartridge (2 sources) beta-Adrenergic Eliza Start: 02-23-2020 labetalol (NORMODYNE;TRANDATE) injection 5 mg Start: 07-25-2019 10 mg, Intrave nous, EVERY 4 HOURS PRN, High Blood Pressure, SBP>160. Use first prior to hydralazine order, Starting Wed07/25/19 at 0100 HOLD for HR<60 10 ml lidocaine hydrochloride 10 mg/ml injection (2 sources) Antiarrhythmic, Amide Local Anesthetic Start: 02-23-2020 End: 02-23-2020 lidocaine PF 1 % injection 1 mL Start: 07-17-2019 lidocaine 4 % external patch 1 patch linaclotide 0.145 mg oral capsule (17 sources) Guanylate Cyclase-C Agonist Start: 11-24-2024 End: 02-22-2025 take 1 capsule by mouth once daily before breakfast linaCLOtide (Linzess) 145 MCG capsule Indications: Chronic idiopathic constipation Take 1 capsule (145 mcg) by mouth every morning (before breakfast). Do not crush or chew. 90 capsule 11/24/2024 02/22/2025 Active Start: 07-26-2019 End: 02-23-2020 take 1 capsule by mouth once daily before breakfast linaclotide (LINZESS) 145 MCG capsule Take 1 capsule by mouth every morning (before breakfast) 30 capsule 0 07/28/2019 Active melatonin 3 mg oral tablet (2 sources) Start: 12-05-2020 melatonin tabl et 6 mg Start: 07-25-2019 take 3 mg by mouth o nce daily as needed for sleep 3 mg, Oral, NIGHTLY PRN, Sleep, Starting Wed07/25/19 at 2100 1 ml meperidine hydrochloride 25 mg/ml cartridge (1 source) Opioid Agonist Start: 02-23-2020 meperidine (DEMEROL) injection 12.5 mg methocarbamol 750 mg oral tablet (11 sources) Muscle Relaxant Start: 07-19-2019 End: 02-23-2020 take 750 mg by mouth four times daily as needed for pain 750 mg, Oral, 4 TIMES DAILY PRN, pain, Starting Wed07/25/19 at 0059 Start: 05-21-2019 methocarbamol (ROBAXIN) tablet 500 mg Start: 05-16-2019 End: 05-21-2019 1,000 mg, Intravenous, EVERY 6 HOURS, First dose on Wed05/16/19 at 1800 morphine sulfate (PF) injection 2 mg (1 source) Start: 05-18-2019 morphine sulfa te (PF) injection 2 mg naproxen 500 mg oral tablet (13 sources) Nonsteroidal Anti-inflammatory Drug Start: 11-08-2024 End: 11-12-2024 take 1 tablet by mouth twice daily at mealtime naproxen (Naprosyn) 500 MG tablet Take 1 tablet (500 mg) by mouth 2 times daily (with meals) for 4 days. 8 tablet 11/08/2024 11/12/2024 Active Start: 02-01-2022 End: 01-25-2023 take 1 tablet by mouth every twelve hours as needed naproxen (NAPROSYN) 500 mg tablet Take 1 tablet by mouth twice daily as needed. TAKE WITH FOOD 15 tablet 0 02/01/2022 01/25/2023 Discontinued (Course of therapy completed) Start: 01-11-2020 End: 01-11-2020 naproxen (NAPROSYN) tablet 5 00 mg Start: 01-11-2020 End: 02-21-2020 take 1 tablet by mouth twice daily at mealtime naproxen sodium (ANAPROX DS) 550 MG tablet Take 1 tablet by mouth 2 times daily (with meals) 40 tablet 0 01/11/2020 02/21/2020 Discontinued (Stop Taking at Discharge) Comment on above: Take 1 tablet by sosa twice daily as needed. TAKE WITH FOOD [place] (Nk) (1 source) Start: 10-21-19 [place] (Nk) Active October 21, 2023 12:00am omeprazole 40 mg delayed release oral capsule (6 sources) Proton Pump Inhibitor Start: 01-17-20 take 1 capsule by mouth once daily before breakfast omeprazole (PRILOSEC) 40 MG delayed release capsule Indications: Generalized abdominal pain Take 1 capsule by mouth every morning (before breakfast) for 14 days 14 capsule 0 01/16/2021 Active ondansetron 4 mg disintegrating oral tablet (20 sources) Serotonin-3 Receptor Antagonist Start: 01-11-20 25 End: 01-18-20 25 take 1 tablet by mouth every eight hours as needed for nausea and vomiting ondansetron ODT (Zofran-ODT) 4 MG disintegrating tablet Take 1 tablet (4 mg) by mouth every 8 hours as needed for nausea or vomiting for up to 7 days. 20 tablet 01/10/2025 01/17/2025 Active Start: 05-05-2022 End: 05-05-2022 ondansetron (ZOFRAN) injecti on 4 mg Start: 08-05-2021 End: 10-21-2023 take 1 tablet by mouth every eight hours as needed for nausea and vomiting ondansetron ODT (Zofran-ODT) 4 MG disintegrating tablet Take 1 tablet (4 mg) by mouth every 8 hours as needed for nausea or vomiting for up to 7 days. 20 tablet 0 05/18/2023 05/25/2023 Start: 02-17-2021 End: 02-17-2021 ondansetron (ZOFRAN) injecti on 4 mg Start: 01-13-2021 End: 05-06-2023 take 1 tablet by mouth three times daily as needed for nausea ondansetron ODT (Zofran-ODT) 4 MG disintegrating tablet TAKE 1 TABLET BY MOUTH 3 TIMES DAILY NEEDED FOR NAUSEA OR VOMITING 60 tablet 0 05/06/2022 09/15/2022 Discontinued (Side effects) Start: 02-19-2020 End: 02-19-2020 ondansetron (ZOFRAN) injecti on 4 mg Start: 01-22-2020 End: 01-22-2020 ondansetron (ZOFRAN) injecti on 4 mg Start: 01-11-2020 End: 01-11-2020 ondansetron (ZOFRAN) injecti on 4 mg Start: 09-22-2019 End: 02-23-2020 take 1 tablet by mouth every eight hours as needed for nausea ondansetron (ZOFRAN ODT) 4 MG disintegrating tablet Take 1 tablet by mouth every 8 hours as needed for Nausea 20 tablet 0 09/22/2019 02/23/2020 Discontinued (Stop Taking at Discharge) Start: 08-12-2019 End: 02-21-2020 take 1 tablet by mouth three times daily as needed for nausea ondansetron (ZOFRAN) 4 MG tablet Take 1 tablet by mouth 3 times daily as needed for Nausea or Vomiting 5 tablet 0 01/26/2020 02/21/2020 Discontinued (Stop Taking at Discharge) Start: 07-24-2019 End: 07-24-2019 ondansetron (ZOFRAN) injecti on 4 mg Start: 07-17-2019 End: 07-17-2019 ondansetron (ZOFRAN) injecti on 4 mg Start: 05-25-2019 End: 05-25-2019 ondansetron (ZOFRAN) injecti on 4 mg Start: 05-20-2019 End: 07-25-2019 take 4 mg by mouth every eight hours as needed for nausea 4 mg, Oral, EVERY 8 HOURS PRN, Nausea, Vomiting, Starting 07/25/19 at 0059 Start: 05-19-2019 ondansetron (Z OFRAN) injection 4 mg Start: 05-12-2019 End: 05-16-2019 ondansetron (ZOFRAN) injecti on 4 mg Comment on above: Take 1 tablet by sosa every 8 hours as needed. ondansetron (ZOFRAN-ODT) disintegrating tablet 4 mg (2 sources) Start: 05-05-2022 ondansetron (ZOFRAN-ODT) disintegrating tablet 4 mg Start: 03-26-2021 ondansetron (Z OFRAN-ODT) disintegrating tablet 4 mg oxyCODONE (13 sources) Opioid Agonist Start: 05-05-2022 oxyCODONE (AZIZA ICODONE) immediate release tablet 5 mg Start: 05-04-2022 End: 05-09-2022 oxyCODONE (ROXICODONE) 5 MG immediate release tablet Indications: S/P hysterectomy Take 1 tablet by mouth every 6 hours as needed for Pain for up to 5 days. Intended supply: 3 days. Take lowest dose possible to manage pain 15 tablet 0 05/04/2022 05/09/2022 Active Start: 03-26-2021 oxyCODONE (AZIZA ICODONE) immediate release tablet 5 mg Start: 02-21-2020 End: 02-23-2020 take 1 tablet by mouth every six hours as needed for pain oxyCODONE (ROXICODONE) 5 MG immediate release tablet Indications: Pelvic pain Take 1 tablet by mouth every 6 hours as needed (moderate to severe pain) for up to 2 days. 8 tablet 0 02/21/2020 02/23/2020 Discontinued (Stop Taking at Discharge) Start: 02-20-2020 oxyCODONE (AZIZA ICODONE) immediate release tablet 5 mg Start: 07-27-2019 End: 07-30-2019 take 1 tablet by mouth every six hours as needed for pain oxyCODONE (ROXICODONE) 5 MG immediate release tablet Indications: Intractable abdominal pain , Pancreatitis due to common bile duct stone Take 1 tablet by mouth every 6 hours as needed for Pain for up to 3 days. 12 tablet 0 07/27/2019 07/30/2019 Active Start: 07-25-2019 take 5 mg by mouth e very four hours as needed for pain 5 mg, Oral, EVERY 4 HOURS PRN, Pain Moderate (4-6), Pain Severe (7-10), Starting Wed07/25/19 at 0100 Start: 07-19-2019 End: 07-22-2019 take 1 tablet by mouth three times daily as needed for pain oxyCODONE (ROXICODONE) 5 MG immediate release tablet Indications: Intractable abdominal pain Take 1 tablet by mouth 3 times daily as needed for Pain for up to 3 days. 9 tablet 0 07/19/2019 07/22/2019 Active Start: 07-18-2019 oxyCODONE (AZIZA ICODONE) immediate release tablet 5 mg Start: 05-21-2019 oxyCODONE (AZIZA ICODONE) immediate release tablet 5 mg Start: 05-20-2019 End: 05-21-2019 oxyCODONE (ROXICODONE INTENS OL) 100 MG/5ML concentrated solution 10 mg pantoprazole (PROTONIX) injection 40 mg (1 source) Start: 12-04-2020 pantoprazole ( PROTONIX) injection 40 mg phenazopyridine hydrochloride 100 mg oral tablet (3 sources) Start: 12-28-2020 End: 01-02-2021 take 2 tablets by mouth three times daily as needed for pain phenazopyridine (PYRIDIUM) 100 MG tablet Take 2 tablets by mouth 3 times daily as needed for Pain 15 tablet 0 12/28/2020 01/02/2021 Active Start: 04-18-2019 End: 04-18-2019 phenazopyridine (PYRIDIUM) t ablet 200 mg Start: 04-18-2019 End: 04-21-2019 take 1 tablet by mouth three times daily as needed for pain phenazopyridine (PYRIDIUM) 200 MG tablet Take 1 tablet by mouth 3 times daily as needed for Pain 9 tablet 0 04/18/2019 04/21/2019 Active phenol 14 mg/ml mouthwash (1 source) Start: 05-17-2019 phenol 1.4 % m outh spray 1 spray polyethylene glycol 3350 225343 mg / potassium chloride 2980 mg / sodium bicarbonate 6720 mg / sodium chloride 5840 mg / sodium sulfate 01188 mg powder for oral solution (1 source) Osmotic Laxative Start: 04-18-2019 End: 04-25-2019 take 240 g by mouth once daily polyethylene glycol-electrolytes (COLYTE) 240 g SOLR solution Take 240-480 mLs by mouth daily for 7 days 4000 mL 0 04/18/2019 04/25/2019 Active predniSONE 20 mg oral tablet (9 sources) Start: 09-20-2024 End: 09-24-2024 take 2 tablets by mouth once daily at mealtime predniSONE (DELTASONE) 20 mg tablet Take 2 tablets by mouth once daily for 4 days. Take daily with food. 8 tablet 09/20/2024 09/24/2024 Active Start: 05-15-2024 End: 05-20-2024 take 5 tablets by mouth once daily, then take 4 tablets by mouth once daily, then take 3 tablets by mouth once daily, then take 2 tablets by mouth once daily, then take 1 tablet by mouth once daily predniSONE (DELTASONE) 10 mg tablet Indications: Mild intermittent asthma with acute exacerbation Take 5 tablets by mouth once daily for 1 day, THEN 4 tablets once daily for 1 day, THEN 3 tablets once daily for 1 day, THEN 2 tablets once daily for 1 day, THEN 1 tablet once daily for 1 day. 15 tablet 05/15/2024 05/20/2024 Active Start: 03-13-2024 End: 03-22-2024 predniSONE (DELTASONE) 10 mg tablet Take 4 tabs daily for 3 days, then 2 tabs daily for 3 days, then 1 tab daily for 3 days with food. 21 tablet 0 03/13/2024 03/22/2024 Active Start: 07-23-2023 End: 07-27-2023 take 2 tablets by mouth once daily at mealtime predniSONE (DELTASONE) 20 mg tablet Take 2 tablets by mouth once daily for 4 days. Take daily with food. 8 tablet 0 07/23/2023 07/27/2023 Active Start: 07-04-2023 End: 07-09-2023 take 2 tablets by mouth once daily at mealtime predniSONE (DELTASONE) 20 mg tablet Indications: Viral bronchitis Take 2 tablets by mouth once daily for 5 days. Take daily with food. 10 tablet 07/04/2023 07/09/2023 Start: 06-03-2022 End: 06-07-2022 take 2 tablets by mouth once daily at mealtime predniSONE (DELTASONE) 20 mg tablet Indications: Wheezing Take 2 tablets by mouth once daily for 4 days. Take daily with food. 8 tablet 0 06/03/2022 06/07/2022 Active Comment on above: Take 2 tablets by mo ut once daily for 4 days. Take daily with food. Take 2 tablets by [facility] once daily for 5 days. Take daily with food. psyllium 3400 mg powder for oral suspension (5 sources) Start: 06-08-2023 End: 07-15-2023 psyllium (Metamucil) 58.6 % packet Take 1 packet (3.4 g of fiber) by mouth daily. Mix and drink with at least 8 ounces of water or juice. 30 packet 0 06/08/2023 07/15/2023 Active Start: 12-06-2020 take 1 capsule by mo [facility] once daily psyllium (METAMUCIL) 0.52 g capsule Take 1 capsule by mouth daily 30 capsule 0 12/06/2020 Active risperiDONE 0.25 mg oral tablet (7 sources) Atypical Antipsychotic Start: 02-19-2020 risperi DONE (RISPERDAL) tablet 0.5 mg take 2 tablets by mouth once [place] risperiDONE (RISPERDAL) 0.25 MG tablet Take 0.5 mg by mouth nightly 0 Active sennosides, fdc 8.6 mg oral tablet (1 source) Start: 05-21-2019 senna (SENOKOT ) tablet 8.6 mg sodium chloride flush 0.9 % injection 3 mL (7 sources) Start: 02-17-2021 sodium chlorid e flush 0.9 % injection 3 mL Start: 02-27-2020 sodium chlorid e flush 0.9 % injection 3 mL Start: 02-19-2020 sodium chlorid e flush 0.9 % injection 3 mL Start: 01-11-2020 sodium chlorid e flush 0.9 % injection 3 mL Start: 07-28-2019 sodium chlorid e flush 0.9 % injection 3 mL Start: 07-24-2019 sodium chlorid e flush 0.9 % injection 3 mL Start: 07-17-2019 sodium chlorid e flush 0.9 % injection 3 mL sucralfate 100 mg/ml oral suspension (2 sources) Aluminum Complex Start: 08-05-2023 End: 09-04-2023 take 1 g by mouth every six hours as needed sucralfate (Carafate) 1 GM/10ML suspension Take 10 mL (1 g) by mouth every 6 hours as needed (epigastric discomfort). 414 mL 0 08/05/2023 09/04/2023 Active sulfamethoxazole 800 mg / trimethoprim 160 mg oral tablet (1 source) Dihydrofolate Reductase Inhibitor Antibacterial, Sulfonamide Antimicrobial Start: 04-18-2019 End: 04-25-2019 take 1 tablet by mouth twice daily sulfamethoxazole- trimethoprim (BACTRIM DS;SEPTRA DS) 800-160 MG per tablet Take 1 tablet by mouth 2 times daily for 7 days 14 tablet 0 04/18/2019 04/25/2019 Active traMADol hydrochloride 50 mg oral tablet (7 sources) Opioid Agonist Start: 07-17-2024 take 50-100 mg by mouth every six hours as needed traMADol (ULTRAM) 50 mg tablet Take 50-100 mg by mouth every 6 hours as needed. 07/17/2024 Active Start: 02-27-2020 End: 02-27-2020 traMADol (ULTRAM) tablet 50 mg Completed/Discontinued Medications Medication Drug Class(es) Dates Sig (Normalized) Sig (Original) acetaminophen 500 mg oral tablet (20 sources) Start: 06-05-2024 End: 06-05-2024 1,000 mg, Oral, Once, On Wed06/05/24 at 1910, For 1 dose, Maximum dose of acetaminophen is 4000 mg from all sources in 24 hours. Start: 05-05-2022 1,000 mg, Oral , EVERY 8 HOURS, First dose on Wed05/05/22 at 1830, Until Discontinued Maximum dose of acetaminophen is 4000mg from all sources in 24 hours. Alternate ibuprofen and acetaminophen every 4 hours. Start: 05-04-2022 take 2 tablets by [facility] every six hours as needed Acetaminophen Extra Strength 500 MG tablet Take 1,000 mg by mouth every 6 hours as needed. 05/05/2022 Active Start: 03-26-2021 End: 03-26-2021 take 650 mg by mouth every four hours as needed for pain, then take 4000 mg by mouth every twenty-four hours as needed for pain 650 mg, Oral, EVERY 4 HOURS PRN, Pain Mild (1-3), Starting on Wed03/26/21 at 1013 Maximum dose of acetaminophen is 4000 mg from all sources in 24 hours. Start: 03-26-2021 End: 03-26-2021 acetaminophen (TYLENOL) tabl et 1,000 mg Start: 12-28-2020 End: 12-28-2020 acetaminophen (TYLENOL) tabl et 1,000 mg Start: 12-03-2020 acetaminophen (TYLENOL) tablet 650 mg Start: 02-23-2020 End: 02-23-2020 acetaminophen (TYLENOL) tabl et 1,000 mg Start: 02-19-2020 take 1000 mg by mout h every eight hours, then take 4000 mg by mouth every twenty-four hours 1,000 mg, Oral, EVERY 8 HOURS, First dose on Wed02/19/20 at 2345 Maximum dose of acetaminophen is 4000 mg from all sources in 24 hours. Start: 01-22-2020 End: 01-23-2020 acetaminophen (TYLENOL) tabl et 1,000 mg Start: 07-25-2019 take 1 dose by mouth three times daily 1,000 mg, Oral, EVERY 8 HOURS SCHEDULED (3 times per day), First dose on Wed07/25/19 at 0130 Maximum dose of acetaminophen is 4000 mg from all sources in 24 hours. Start: 07-17-2019 acetaminophen (TYLENOL) tablet 1,000 mg Start: 05-21-2019 acetaminophen (TYLENOL) tablet 1,000 mg Start: 05-16-2019 End: 05-21-2019 acetaminophen (OFIRMEV) infu christy 1,000 mg Start: 05-13-2019 End: 05-16-2019 acetaminophen (TYLENOL) tabl et 1,000 mg Start: 04-18-2019 acetaminophen (TYLENOL) tablet 1,000 mg End: 01-25-2023 take 2 tablets by mouth every six hours as needed acetaminophen (TYLENOL) 325 mg tablet Indications: 22 weeks gestation of , Dysuria , Short interval between pregnancies affecting , antepartum Take 650 mg by mouth every 6 hours as needed. 0 01/25/2023 Discontinued (Course of therapy completed) Acetaminophen (M IDOL PO) Take by mouth as needed 0 Active Acetaminophen (M IDOL PO) Take by mouth 0 Active End: 05-22-2019 take 1 tablet by mouth every six hours as needed for pain acetaminophen (TYLENOL) 500 MG tablet Take 500 mg by mouth every 6 hours as needed for Pain 0 05/22/2019 Discontinued (Stop Taking at Discharge) Comment on above: Take 650 mg by mouth every 6 hours as needed. acetaminophen 325 mg / HYDROcodone bitartrate 5 mg oral tablet (7 sources) Opioid Agonist Start: 11-08-2024 End: 11-08-2024 1 tablet, Oral, Once, On Wed11/08/24 at 1950, For 1 dose, Maximum dose of acetaminophen is 4000 mg from all sources in 24 hours. Start: 08-05-2021 End: 10-21-2023 take 1 tablet by mouth every six hours as needed Hydrocodone-Acetaminophen Discontinued 1 TABLET PO EVERY 6 HOURS NEEDED 10 August 05, 2021 October 21, 2023 7:52am Start: 07-11-2020 End: 07-13-2020 take 1 tablet by mouth every four hours as needed Hydrocodone-Acetaminophen Discontinued 1 TABLET PO EVERY 4 HOURS NEEDED 10 July 11, 2020 July 13, 2020 1:03am Start: 05-04-2020 End: 05-06-2020 take 1 tablet by mouth every four hours as needed Hydrocodone-Acetaminophen Discontinued 1 TABLET PO EVERY 4 HOURS NEEDED 10 May 04, 2020 May 06, 2020 12:03am Start: 04-20-2020 End: 04-24-2020 take 1 tablet by mouth every four hours as needed Hydrocodone-Acetaminophen Discontinued 1 - 2 TABLET PO EVERY 4 HOURS NEEDED 14 April 20, 2020 April 24, 2020 12:02am Start: 02-01-2020 End: 02-03-2020 take 1 tablet by mouth every six hours as needed Hydrocodone-Acetaminophen Discontinued 1 TABLET PO EVERY 6 HOURS NEEDED 6 February 01, 2020 February 03, 2020 12:03am ALPRAZolam 0.25 mg disintegrating oral tablet (3 sources) Benzodiazepine Start: 03-26-2021 End: 03-26-2021 ALPRAZolam (NIRAVAM) dissolvable tablet 0.25 mg Start: 12-28-2020 ALPRAZolam (NI RAVAM) dissolvable tablet 0.25 mg Start: 02-23-2020 ALPRAZolam (NI RAVAM) dissolvable tablet 0.25 mg aluminum hydroxide 40 mg/ml / magnesium hydroxide 40 mg/ml / simethicone 4 mg/ml oral suspension (2 sources) Start: 08-05-2023 End: 08-05-2023 aluminum & magnesium hydroxide-simethicone (Mylanta) 200-200-20 MG/5ML oral suspension 20 mL amoxicillin 875 mg oral tablet (3 sources) Penicillin-class Antibacterial Start: 09-17-2024 End: 09-24-2024 take 1 tablet by mouth twice daily amoxicillin (AMOXIL) 875 mg tablet Take 1 tablet by mouth two times a day for 7 days. 14 tablet 09/17/2024 09/20/2024 Discontinued aprepitant 40 mg oral capsule (1 source) Substance P/Neurokinin-1 Receptor Antagonist Start: 03-26-2021 End: 03-26-2021 aprepitant (EMEND) capsule 40 mg Start: 03-26-2021 End: 03-26-2021 aprepitant (EMEND) capsule 4 0 mg azithromycin 250 mg oral tablet (1 source) Macrolide Antimicrobial Start: 01-22-2020 End: 01-22-2020 azithromycin (ZITHROMAX) tablet 1,000 mg barium sulfate 98 % suspension 60 mL (2 sources) Start: 12-02-2023 End: 12-02-2023 barium sulfate 98 % suspension 60 mL brompheniramine maleate 0.4 mg/ml / dextromethorphan hydrobromide 2 mg/ml / pseudoephedrine hydrochloride 6 mg/ml oral solution (14 sources) alpha-Adrenergic Agonist, Uncompetitive U-iysifz-F-aspartat e Receptor Antagonist, Sigma-1 Agonist Start: 09-03-2023 End: 05-15-2024 take 10 mL by mouth every six hours as needed Brompheniramine-P seudoeph-DM (BROMFED DM) 2-30-10 mg/5 mL syrup Take 10 mL by mouth four times a day as needed. 200 mL 10/19/2023 05/15/2024 Discontinued Comment on above: Take 10 mL by mouth four times a day as needed. calcium chloride 0.0014 meq/ml / potassium chloride 0.004 meq/ml / sodium chloride 0.103 meq/ml / sodium lactate 0.028 meq/ml injectable solution (8 sources) Start: 05-05-2022 End: 05-05-2022 lactated ringers bolus Start: 03-26-2021 Intravenous, a t 75 mL/hr, CONTINUOUS, Starting on Wed03/26/21 at 1030, Post-op Start: 03-26-2021 End: 03-26-2021 lactated ringers infusion Start: 02-23-2020 lactated ringe rs infusion Start: 02-20-2020 lactated ringe rs infusion Start: 02-19-2020 End: 02-20-2020 take 1 mL intravenous route every hour Intravenous, at 125 mL/hr, CONTINUOUS, Starting Wed02/19/20 at 2345 To be infused as the mainline IV IF the intrapartum insulin drip is OFF Start: 07-25-2019 150 mL/hr, Int ravenous, at 150 mL/hr, CONTINUOUS, Starting Wed07/25/19 at 0130 Start: 05-12-2019 End: 05-15-2019 Intravenous, at 100 mL/hr, CONTINUOUS, Starting Wed05/12/19 at 1900 ceFAZolin 2000 mg injection (2 sources) Cephalosporin Antibacterial Start: 03-26-2021 End: 03-26-2021 ceFAZolin (ANCEF) 2000 mg in dextrose 4 % 100 mL IVPB (premix) Start: 12-28-2020 End: 12-28-2020 ceFAZolin (ANCEF) 2000 mg in dextrose 4 % 100 mL IVPB (premix) cefOXitin (MEFOXIN) 2 g in dextrose 5% 50 mL (mini-bag) (1 source) Start: 05-16-2019 End: 05-17-2019 2 g, Intravenous, EVERY 6 HOURS SCHEDULED (4 times per day), 4 doses, First dose on Wed05/16/19 at 1800, Last dose on Wed05/17/19 at 1400 cefTRIAXone (ROCEPHIN) 250 mg in lidocaine 1 % 1 mL IM Injection (1 source) Start: 01-22-2020 End: 01-22-2020 cefTRIAXone (ROCEPHIN) 250 mg in lidocaine 1 % 1 mL IM Injection cefTRIAXone sodium 1,000 mg in sodium chloride 0.9 % 100 mL IVPB (add-vantage) (1 source) Start: 12-04-2020 End: 12-06-2020 cefTRIAXone sodium 1,000 mg in sodium chloride 0.9 % 100 mL IVPB (add-vantage) celecoxib 400 mg oral capsule (1 source) Nonsteroidal Anti-inflammatory Drug Start: 03-26-2021 End: 03-26-2021 celecoxib (CELEBREX) capsule 400 mg Start: 03-26-2021 End: 03-26-2021 celecoxib (CELEBREX) capsule 400 mg sugar-free cholestyramine resin 4000 mg powder for oral suspension (9 sources) Bile Acid Sequestrant Start: 02-23-2024 End: 02-22-2025 take 1 dose by mouth twice daily cholestyramine light (Prevalite) 4 g packet Take 1 packet (4 g) by mouth 2 times daily. 60 packet 11 02/23/2024 06/21/2024 Discontinued (Ineffective) 200 ml ciprofloxacin 2 mg/ml injection (1 source) Quinolone Antimicrobial Start: 05-15-2019 End: 05-16-2019 ciprofloxacin (CIPRO) IVPB 400 mg diazePAM 2 mg oral tablet (1 source) Benzodiazepine Start: 05-18-2023 End: 05-18-2023 diazePAM (Valium) tablet 2 mg dicyclomine hydrochloride 10 mg oral capsule (20 sources) Anticholinergic Start: 06-08-2023 End: 06-07-2024 dicyclomine (Bentyl) 10 MG capsule Take 2 capsules (20 mg) by mouth in the morning and 2 capsules (20 mg) at noon and 2 capsules (20 mg) in the evening and 2 capsules (20 mg) before bedtime. 240 capsule 06/08/2023 02/23/2024 Discontinued (Side effects) Start: 09-24-2022 End: 10-04-2022 take 1 tablet by mouth twice daily dicyclomine (Bentyl) 20 MG tablet Take 1 tablet (20 mg) by mouth 2 times daily for 10 days. 20 tablet 0 09/24/2022 10/04/2022 Active Start: 03-26-2021 End: 03-26-2021 take 10 mg by mouth three times daily before mealtime 10 mg, Oral, 3 TIMES DAILY BEFORE MEALS, First dose on Wed03/26/21 at 1100 Start: 02-17-2021 End: 02-27-2021 take 1 capsule by mouth four times daily dicyclomine (BENTYL) 10 MG capsule Take 1 capsule by mouth 4 times daily for 10 days 40 capsule 1 02/17/2021 Active Start: 07-25-2019 take 20 mg by mouth every six hours as needed 20 mg, Oral, EVERY 6 HOURS PRN, cramps, Starting e 07/25/19 at 0059 Start: 07-17-2019 End: 07-25-2019 take 2 capsules by mouth every six hours as needed dicyclomine (BENTYL) 10 MG capsule Take 2 capsules by mouth every 6 hours as needed (cramps) 20 capsule 0 07/17/2019 07/25/2019 Discontinued (LIST CLEANUP) Start: 04-18-2019 End: 04-18-2019 dicyclomine (BENTYL) injecti on 20 mg 1 ml diphenhydrAMINE hydrochloride 50 mg/ml cartridge (20 sources) Histamine-1 Receptor Antagonist Start: 01-10-2025 End: 01-10-2025 25 mg, IntraVENous, Once, On Wed01/10/25 at 2340, For 1 dose Start: 01-10-2025 End: 01-10-2025 12.5 mg, IntraVENous, Once, On Wed01/10/25 at 2255, For 1 dose Start: 05-06-2022 diphenhydrAMIN E (BENADRYL) tablet 25 mg Start: 05-05-2022 End: 05-05-2022 diphenhydrAMINE (BENADRYL) i njection 25 mg Start: 03-26-2021 End: 03-26-2021 diphenhydrAMINE (BENADRYL) i njection 25 mg Start: 12-04-2020 diphenhydrAMIN E (BENADRYL) tablet 25 mg Start: 02-23-2020 End: 02-23-2020 diphenhydrAMINE (BENADRYL) i njection 12.5 mg Start: 02-20-2020 End: 02-20-2020 diphenhydrAMINE (BENADRYL) i njection 25 mg Start: 02-19-2020 End: 02-19-2020 diphenhydrAMINE (BENADRYL) i njection 25 mg Start: 01-11-2020 End: 01-11-2020 diphenhydrAMINE (BENADRYL) i njection 25 mg Start: 08-13-2019 End: 08-14-2019 diphenhydrAMINE (BENADRYL) i njection 12.5 mg Start: 07-28-2019 End: 07-28-2019 diphenhydrAMINE (BENADRYL) 5 0 MG/ML injection Start: 07-26-2019 End: 07-26-2019 diphenhydrAMINE (BENADRYL) t ablet 25 mg Start: 07-17-2019 diphenhydrAMIN E (BENADRYL) tablet 25 mg Start: 07-17-2019 End: 07-17-2019 diphenhydrAMINE (BENADRYL) i njection 25 mg Start: 07-17-2019 End: 07-17-2019 diphenhydrAMINE (BENADRYL) 5 0 MG/ML injection Start: 05-12-2019 End: 05-13-2019 diphenhydrAMINE (BENADRYL) i njection 25 mg Start: 04-18-2019 End: 04-18-2019 diphenhydrAMINE (BENADRYL) i njection 25 mg famotidine 20 mg oral tablet (7 sources) Histamine-2 Receptor Antagonist Start: 09-24-2022 End: 10-14-2022 take 1 tablet by mouth twice daily famotidine (Pepcid) 20 MG tablet Take 1 tablet (20 mg) by mouth 2 times daily for 15 days. 30 tablet 0 09/24/2022 10/14/2022 Discontinued (Therapy completed) Start: 03-26-2021 End: 03-26-2021 famotidine (PEPCID) tablet 2 0 mg Start: 12-28-2020 End: 12-28-2020 famotidine (PEPCID) tablet 2 0 mg Start: 02-23-2020 End: 02-23-2020 famotidine (PEPCID) tablet 2 0 mg Start: 02-19-2020 20 mg, Intrave nous, 2 TIMES DAILY, First dose on Wed02/19/20 at 2345 Administer over 2 minutes. famotidine (Pepcid) 20 mg in sodium chloride (PF) 0.9 % 10 mL injection (4 sources) Start: 06-05-2024 End: 06-05-2024 20 mg, IntraVENous, Administ er over 2 Minutes, Once, On Wed06/05/24 at 1910, For 1 dose, IV Push over minimum of 2 minutes - Dilute with 10 mL NS Start: 08-05-2023 End: 08-05-2023 famotidine (Pepcid) 20 mg in sodium chloride (PF) 0.9 % 10 mL injection gabapentin 100 mg oral capsule (4 sources) Anti-epileptic Agent Start: 07-18-2019 End: 08-18-2019 take 1 capsule by mouth once daily gabapentin (NEURONTIN) 100 MG capsule Take 1 capsule by mouth daily for 30 days. 30 capsule 0 07/19/2019 07/25/2019 Discontinued (LIST CLEANUP) gadobutrol (Gadavist) injection 7 mL (2 sources) Start: 05-25-2023 End: 05-25-2023 gadobutrol (Gadavist) injection 7 mL 500 ml glucose 50 mg/ml / potassium chloride 0.02 meq/ml / sodium chloride 4.5 mg/ml injection (1 source) Start: 05-15-2019 End: 05-21-2019 dextrose 5 % and 0.45 % NaCl with KCl 20 mEq infusion 1 ml haloperidol 5 mg/ml injection (1 source) Typical Antipsychotic Start: 08-13-2019 End: 08-14-2019 haloperidol lactate (HALDOL) injection 2 mg 1 ml HYDROmorphone hydrochloride 1 mg/ml cartridge (20 sources) Opioid Agonist Start: 01-10-2025 End: 01-10-2025 0.5 mg, IntraVENous, Once, On Wed01/10/25 at 2145, For 1 dose Start: 11-08-2024 End: 11-08-2024 take 0.5 mg by mouth once 0.5 mg, IntraVENous, Once, O n Wed11/08/24 at 1850, For 1 dose, If oral and injectable narcotics ordered, use oral first and only use injectable if oral is ineffective or cannot take oral. Do Not give oral and injectable within 1 hour of each other unless specifically ordered. Start: 02-16-2024 End: 02-16-2024 take 1 dose by mouth every hour 1 mg, IntraVENous, Once, On Wed02/16/24 at 1700, For 1 dose, If oral and IV narcotics ordered, use oral first and only use IV if oral is ineffective or cannot take oral. Do Not give oral and IV within 1 hour of each other unless specifically ordered. Start: 05-17-2023 End: 05-18-2023 HYDROmorphone (Dilaudid) inj ection 0.5 mg Start: 05-05-2022 End: 05-05-2022 HYDROmorphone (DILAUDID) inj ection 0.5 mg Start: 03-26-2021 End: 03-26-2021 HYDROmorphone (DILAUDID) inj ection 0.5 mg Start: 02-17-2021 End: 02-17-2021 HYDROmorphone (DILAUDID) inj ection 0.5 mg Start: 12-28-2020 End: 12-28-2020 HYDROmorphone (DILAUDID) inj ection 0.5 mg Start: 12-28-2020 End: 12-28-2020 HYDROmorphone (DILAUDID) inj ection 0.5 mg Start: 12-05-2020 End: 12-05-2020 HYDROmorphone (DILAUDID) inj ection 0.5 mg Start: 12-05-2020 HYDROmorphone (DILAUDID) injection 0.5 mg Start: 12-04-2020 End: 12-04-2020 HYDROmorphone (DILAUDID) inj ection 0.5 mg Start: 12-03-2020 End: 12-05-2020 HYDROmorphone (DILAUDID) inj ection 0.25 mg Start: 02-23-2020 End: 02-23-2020 HYDROmorphone (DILAUDID) inj ection 1 mg Start: 02-23-2020 End: 02-23-2020 HYDROmorphone (DILAUDID) 1 M G/ML injection Start: 02-23-2020 HYDROmorphone (DILAUDID) injection 0.5 mg Start: 02-23-2020 HYDROmorphone (DILAUDID) injection 0.25 mg Start: 02-19-2020 End: 02-19-2020 HYDROmorphone (DILAUDID) inj ection 1 mg Start: 02-19-2020 End: 02-19-2020 HYDROmorphone (DILAUDID) inj ection 0.5 mg Start: 01-22-2020 End: 01-23-2020 HYDROmorphone (DILAUDID) inj ection 0.5 mg Start: 01-11-2020 End: 01-11-2020 HYDROmorphone (DILAUDID) inj ection 0.5 mg Start: 09-22-2019 End: 09-25-2019 take 1 tablet by mouth every twelve hours as needed for pain HYDROmorphone (DILAUDID) 2 MG tablet Indications: Recurrent acute pancreatitis Take 1 tablet by mouth every 12 hours as needed for Pain for up to 3 days. 6 tablet 0 09/22/2019 09/25/2019 Active Start: 09-22-2019 End: 09-22-2019 HYDROmorphone (DILAUDID) inj ection 0.5 mg Start: 07-25-2019 End: 07-25-2019 take 0.5 mg by mouth every four hours as needed for pain 0.5 mg, Intravenous, EVERY 4 HOURS PRN, Pain Moderate (4-6), Pain Severe (7-10), Starting Wed07/25/19 at 0100 If oral and IV narcotics ordered, use oral first and only use IV if oral is ineffective or cannot take oral. Do Not give oral and IV within 1 hour of each other unless specifically ordered. Start: 07-24-2019 End: 07-24-2019 HYDROmorphone (DILAUDID) inj ection 1 mg Start: 07-17-2019 End: 07-18-2019 HYDROmorphone (DILAUDID) inj ection 0.5 mg indomethacin 50 mg rectal suppository (1 source) Nonsteroidal Anti-inflammatory Drug Start: 05-15-2019 End: 05-15-2019 indomethacin (INDOCIN) 50 MG suppository 100 mg Iopamidol (1 source) Radiographic Contrast Agent Start: 07-24-2019 End: 07-24-2019 iopamidol (ISOVUE-370) 76 % injection 75 mL iopamidol (ISOVUE-300) 61 % injection 50 mL (1 source) Start: 12-28-2020 End: 12-28-2020 iopamidol (ISOVUE-300) 61 % injection 50 mL iopamidol (ISOVUE-370) 76 % injection 75 mL (3 sources) Start: 02-17-2021 End: 02-17-2021 iopamidol (ISOVUE-370) 76 % injection 75 mL Start: 12-06-2020 End: 12-06-2020 iopamidol (ISOVUE-370) 76 % injection 75 mL Start: 12-03-2020 End: 12-03-2020 iopamidol (ISOVUE-370) 76 % injection 75 mL iopamidol (Isovue-370) 76 % injection 75 mL (4 sources) Start: 05-17-2023 End: 05-17-2023 iopamidol (Isovue-370) 76 % injection 75 mL Start: 09-24-2022 End: 09-24-2022 iopamidol (Isovue-370) 76 % injection 75 mL ketamine 10 mg/ml injectable solution (1 source) General Anesthetic Start: 12-03-2020 End: 12-03-2020 ketamine (KETALAR) injection 15 mg 1 ml ketorolac tromethamine 15 mg/ml cartridge (20 sources) Nonsteroidal Anti-inflammatory Drug, Cyclooxygenase Inhibitor Start: 06-05-2024 End: 06-05-2024 15 mg, IntraVENous, Once, On Wed06/05/24 at 1910, For 1 dose Start: 02-16-2024 End: 02-16-2024 15 mg, IntraVENous, Once, On Wed02/16/24 at 1920, For 1 dose Start: 05-05-2022 End: 05-06-2022 ketorolac (TORADOL) injectio n 30 mg Start: 03-26-2021 End: 03-26-2021 ketorolac (TORADOL) injectio n 30 mg Start: 12-28-2020 End: 01-02-2021 take 1 tablet by mouth once daily as needed for pain ketorolac (TORADOL) 10 MG tablet Take 1 tablet by mouth daily as needed for Pain 5 tablet 0 12/28/2020 01/02/2021 Active Start: 12-03-2020 End: 12-03-2020 ketorolac (TORADOL) injectio n 15 mg Start: 02-27-2020 End: 02-27-2020 ketorolac (TORADOL) injectio n 30 mg Start: 02-19-2020 End: 02-24-2020 30 mg, Intravenous, EVERY 6 HOURS, First dose on Wed02/19/20 at 2345, For 5 days Do not administer for more than 5 days. Start: 01-26-2020 End: 01-26-2020 ketorolac (TORADOL) 30 MG/ML injection Start: 01-23-2020 End: 01-23-2020 ketorolac (TORADOL) injectio n 15 mg Start: 01-22-2020 End: 01-22-2020 ketorolac (TORADOL) injectio n 30 mg Start: 09-22-2019 End: 09-22-2019 ketorolac (TORADOL) injectio n 30 mg Start: 07-24-2019 End: 07-24-2019 ketorolac (TORADOL) injectio n 15 mg Start: 07-17-2019 End: 07-17-2019 ketorolac (TORADOL) injectio n 30 mg Start: 05-13-2019 End: 05-16-2019 ketorolac (TORADOL) injectio n 30 mg Start: 04-18-2019 End: 04-18-2019 ketorolac (TORADOL) injectio n 30 mg lactulose 667 mg/ml oral solution (7 sources) Osmotic Laxative Start: 09-18-2019 End: 02-23-2020 lactulose (CHRONULAC) 10 GM/15ML solution 30 ml daily 1 Bottle 1 09/18/2019 02/23/2020 Discontinued (LIST CLEANUP) Start: 04-18-2019 End: 04-18-2019 lactulose (CHRONULAC) 10 GM/ 15ML solution 30 g 1 ml LORazepam 2 mg/ml injection (3 sources) Benzodiazepine Start: 03-26-2021 End: 03-26-2021 LORazepam (ATIVAN) injection 1 mg Start: 02-23-2020 End: 02-23-2020 LORazepam (ATIVAN) injection 1 mg Start: 07-25-2019 End: 07-25-2019 LORazepam (ATIVAN) injection 0.5 mg lurasidone hydrochloride 40 mg oral tablet (1 source) Atypical Antipsychotic Start: 04-02-2020 End: 12-03-2020 lurasidone (LATUDA) 40 MG TABS tablet DAILY 0 04/02/2020 12/03/2020 Discontinued (Therapy completed) magnesium citrate (3 sources) Start: 07-25-2019 End: 07-25-2019 magnesium citrate solution 296 mL Start: 07-17-2019 End: 07-17-2019 magnesium citrate solution 2 96 mL Start: 05-14-2019 End: 05-14-2019 magnesium citrate solution 2 96 mL meloxicam 15 mg oral tablet (1 source) Nonsteroidal Anti-inflammatory Drug Start: 07-17-2020 End: 07-20-2020 take 15 mg by mouth once daily Meloxicam Discontinued 15 MG PO DAILY 10 July 17, 2020 1:00am July 20, 2020 1:03am 2 ml metoclopramide 5 mg/ml prefilled syringe (6 sources) Dopamine-2 Receptor Antagonist Start: 08-05-2023 End: 08-05-2023 metoclopramide (Reglan) injection 10 mg Start: 09-24-2022 End: 09-24-2022 metoclopramide (Reglan) inje ction 10 mg Start: 02-20-2020 End: 02-20-2020 metoclopramide (REGLAN) inje ction 10 mg Start: 08-13-2019 End: 08-14-2019 metoclopramide (REGLAN) inje ction 10 mg 1 ml morphine sulfate 4 mg/ml cartridge (20 sources) Opioid Agonist Start: 08-05-2023 End: 08-05-2023 morphine injection 4 mg Start: 05-17-2023 End: 05-17-2023 morphine injection 4 mg Start: 09-24-2022 End: 09-24-2022 morphine sulfate (PF) inject ion 4 mg Start: 05-05-2022 End: 05-05-2022 morphine sulfate (PF) inject ion 4 mg Start: 03-27-2021 End: 03-27-2021 morphine sulfate (PF) inject ion 2 mg Start: 03-27-2021 End: 03-27-2021 morphine 4 MG/ML injection Start: 03-26-2021 End: 03-26-2021 take 2 mg by mouth every four hours as needed for pain 2 mg, Intravenous, EVERY 4 HOURS PRN, Pain Severe (7-10), Starting on Wed03/26/21 at 1013 If oral and IV narcotics ordered, use oral first and only use IV if oral is ineffective or cannot take oral. Do Not give oral and IV within 1 hour of each other unless specifically ordered. Start: 02-17-2021 End: 02-17-2021 morphine injection 4 mg Start: 12-03-2020 End: 12-03-2020 morphine (PF) injection 12 m g Start: 12-03-2020 End: 12-03-2020 morphine (PF) injection 8 mg Start: 12-03-2020 End: 12-03-2020 morphine injection 4 mg Start: 02-20-2020 End: 02-20-2020 morphine sulfate (PF) inject ion 2 mg Start: 02-20-2020 End: 02-20-2020 morphine sulfate (PF) inject ion 2 mg Start: 02-20-2020 End: 02-20-2020 morphine sulfate (PF) inject ion 2 mg Start: 01-11-2020 End: 01-11-2020 morphine injection 4 mg Start: 07-28-2019 End: 07-28-2019 morphine injection 4 mg Start: 07-25-2019 End: 07-27-2019 morphine (PF) injection 4 mg Start: 07-18-2019 End: 07-19-2019 morphine sulfate (PF) inject ion 4 mg Start: 07-17-2019 End: 07-18-2019 morphine sulfate (PF) inject ion 2 mg Start: 07-17-2019 End: 07-17-2019 morphine (PF) injection 4 mg Start: 05-16-2019 End: 05-16-2019 morphine injection 2 mg Start: 05-13-2019 End: 05-17-2019 morphine sulfate (PF) inject ion 4 mg Start: 04-18-2019 End: 04-18-2019 morphine injection 2 mg pantoprazole 40 mg delayed release oral tablet (20 sources) Proton Pump Inhibitor Start: 06-08-2023 End: 06-21-2024 take 1 tablet by mouth once daily before breakfast pantoprazole (ProtoNix) 40 MG EC tablet Take 1 tablet (40 mg) by mouth every morning (before breakfast). Do not crush, chew, or split. 90 tablet 1 12/10/2023 06/21/2024 Discontinued Start: 03-27-2021 take 40 mg by mouth once daily before breakfast 40 mg, Oral, DAILY BEFORE BREAKFAST, First dose on [place] 03/27/21 at 0700 Do not crush or break. Substituted for Omeprazole (PRILOSEC). Start: 07-19-2019 End: 02-23-2020 take 1 tablet by mouth twice daily before mealtime pantoprazole (PROTONIX) 40 MG tablet Take 1 tablet by mouth 2 times daily (before meals) 60 tablet 0 07/27/2019 Active Start: 05-22-2019 End: 08-01-2024 pantoprazole (PROTONIX) tabl et 40 mg Comment on above: Take 40 mg by mouth once daily. polyethylene glycol 3350 31028 mg powder for oral solution (20 sources) Osmotic Laxative Start: 4 End: take 17 g by mouth in the morning polyethylene glycol, PEG, 3350 (Miralax) 17 g packet Take 17 g by mouth in the morning and 17 g in the evening. Do all this for 7 days. 14 packet 02/16/2024 02/23/2024 Start: 05-18-2023 End: 05-27-2023 polyethylene glycol, PEG, 33 50 (Glycolax) 17 GM/SCOOP powder Take 17 g by mouth daily for 3 days. 51 g 0 05/18/2023 05/27/2023 Active Start: 05-06-2022 End: 05-06-2023 polyethylene glycol, PEG, 33 50 (Glycolax) 17 GM/SCOOP powder MIX 17 G IN 8 OUNCES OF WATER OR JUICE AND DRINK ONCE DAILY 1530 g 1 05/06/2022 09/15/2022 Discontinued (Therapy completed) Start: 05-06-2022 End: 11-02-2022 polyethylene glycol (GLYCOLA X) 17 GM/SCOOP powder Take 17 g by mouth daily 1530 g 1 05/06/2022 11/02/2022 Active Start: 03-26-2021 polyethylene g lycol (GLYCOLAX) packet 17 g Start: 12-05-2020 End: 01-06-2021 take 17 g by mouth once daily polyethylene glycol (GLY COLAX) 17 g packet Take 17 g by mouth daily 527 g 1 12/07/2020 01/06/2021 Active Start: 02-23-2020 End: 03-24-2020 take 17 g by mouth once daily as needed for constipation, then take 17 g by mouth as needed for constipation polyethylene glycol (GLYCOLAX) 17 GM/SCOOP powder Take 17 g by mouth daily as needed (Constipation) 510 g 0 02/23/2020 03/24/2020 Active Start: 08-28-2019 End: 09-27-2019 take 17 g by mouth once daily as needed for constipation polyethylene glycol (MIRALAX) powder Take 17 g by mouth daily PRN constipation 1 Bottle 0 08/28/2019 09/27/2019 Active Start: 05-14-2019 End: 08-03-2019 take 17 g by mouth once daily as needed for constipation polyethylene glycol (MIRALAX) powder Take 17 g by mouth daily for 7 days PRN constipation 1 Bottle 0 07/27/2019 08/03/2019 Active Start: 04-27-2019 End: 05-11-2019 polyethylene glycol (GLYCOLA X) powder Take 17 g by mouth 4 times daily as needed (take for 4 days for the next three days then once a day.) 186 g 0 04/27/2019 05/11/2019 Active 100 ml potassium chloride 0.1 meq/ml injection (1 source) Start: 05-13-2019 End: 05-13-2019 potassium chloride 10 mEq/100 mL IVPB (Peripheral Line) prochlorperazine 5 mg/ml injectable solution (2 sources) Phenothiazine Start: 01-10-2025 End: 01-10-2025 10 mg, IntraVENous, Once, On Wed01/10/25 at 2145, For 1 dose 1 ml promethazine hydrochloride 25 mg/ml injection (20 sources) Phenothiazine Start: 02-16-2024 End: 02-16-2024 inject 25 mg by intramuscular injection once 25 mg, IntraMUSCular, Once, On Wed02/16/24 at 1700, For 1 dose, Only to be given as IM injection. Start: 05-18-2023 End: 05-18-2023 promethazine (Phenergan) inj ection 12.5 mg Start: 05-05-2022 promethazine ( PHENERGAN) injection 25 mg Start: 03-26-2021 take 12.5 mg by mout h every four hours as needed for nausea 12.5 mg, Oral, EVERY 4 HOURS PRN, Nausea, Starting on Wed03/26/21 at 1013 Start: 02-17-2021 End: 02-17-2021 promethazine (PHENERGAN) inj ection 12.5 mg Start: 02-13-2021 End: 03-15-2021 take 1 tablet by mouth four times daily as needed for nausea promethazine (PHENERGAN) 12.5 MG tablet Indications: Nausea and vomiting, intractability of vomiting not specified, unspecified vomiting type Take 1 tablet by mouth 4 times daily as needed for Nausea 60 tablet 1 02/13/2021 03/15/2021 Active Start: 12-28-2020 End: 12-28-2020 promethazine (PHENERGAN) inj ection 6.25 mg Start: 12-05-2020 promethazine ( PHENERGAN) tablet 12.5 mg Start: 12-04-2020 promethazine ( PHENERGAN) injection 6.25 mg Start: 12-03-2020 End: 12-03-2020 promethazine (PHENERGAN) inj ection 6.25 mg Start: 02-27-2020 End: 02-27-2020 promethazine (PHENERGAN) inj ection 12.5 mg Start: 02-23-2020 End: 02-23-2020 promethazine (PHENERGAN) inj ection 6.25 mg Start: 02-19-2020 take 12.5 mg by mout h every six hours as needed for nausea 12.5 mg, Oral, EVERY 6 HOURS PRN, Nausea, Vomiting, Starting Wed02/19/20 at 2316 Start: 02-19-2020 End: 02-19-2020 promethazine (PHENERGAN) inj ection 12.5 mg Start: 01-26-2020 End: 01-26-2020 promethazine (PHENERGAN) inj ection 12.5 mg Start: 01-23-2020 End: 01-23-2020 promethazine (PHENERGAN) inj ection 6.25 mg Start: 01-22-2020 End: 01-22-2020 promethazine (PHENERGAN) tab let 25 mg Start: 01-11-2020 End: 01-11-2020 promethazine (PHENERGAN) inj ection 6.25 mg Start: 07-28-2019 End: 07-28-2019 promethazine (PHENERGAN) inj ection 6.25 mg Start: 07-25-2019 take 12.5 mg intrave nously every six hours as needed for nausea 12.5 mg, Intravenous, EVERY 6 HOURS PRN, Nausea, Vomiting, Starting 07/25/19 at 0100 If PO nausea medication ordered, please use PO FIRST. Use IV or IM Phenergan if patient cannot tolerate PO order or use following PO medication if the patient is having breakthrough nausea For IV administration, dilute to 10ml with normal saline. Must be administered over at least 10 minutes. Start: 07-19-2019 End: 08-26-2019 take 1 tablet by mouth three times daily as needed for nausea promethazine (PHENERGAN) 12.5 MG tablet Take 1 tablet by mouth 3 times daily as needed for Nausea 30 tablet 2 07/27/2019 08/26/2019 Active Start: 07-17-2019 End: 07-17-2019 promethazine (PHENERGAN) inj ection 25 mg Start: 07-17-2019 promethazine ( PHENERGAN) injection 6.25 mg Start: 05-14-2019 End: 05-19-2019 promethazine (PHENERGAN) inj ection 12.5 mg sertraline 50 mg oral tablet (12 sources) Serotonin Reuptake Inhibitor Start: 08-18-2019 End: 12-03-2020 take 1 tablet by mouth once daily sertraline (ZOLOFT) 50 MG tablet Take 50 mg by mouth daily 0 08/18/2019 12/03/2020 Discontinued (Therapy completed) 50 ml sodium chloride 9 mg/ml injection (20 sources) Start: 11-08-2024 End: 11-08-2024 1,000 mL, IntraVENous, at 1,000 mL/hr, Administer over 1 Hours, Once, On Wed11/08/24 at 1850, For 1 dose Start: 02-16-2024 End: 02-16-2024 1,000 mL, IntraVENous, at 1, 000 mL/hr, Administer over 1 Hours, Once, On Wed02/16/24 at 1700, For 1 dose Start: 05-17-2023 End: 05-17-2023 sodium chloride 0.9 % bolus 1,000 mL Start: 09-24-2022 End: 09-24-2022 sodium chloride 0.9 % bolus 1,000 mL Start: 05-05-2022 10 mL, IntraVE Nous, EVERY 12 HOURS SCHEDULED (2 times per day), First dose on Wed05/05/22 at 2100, Until Discontinued Start: 05-05-2022 IntraVENous, a t 5-250 mL/hr, PRN, if patient receiving piggyback infusions and maintenance fluids are not ordered OR KVO fluids to protect IV site / prevent frequent line interruptions/ long duration, Starting on Wed05/05/22 at 1829 For piggyback infusion, administer at same rate as piggyback for a total of 25 mL. Enter 25 mL into dose field and piggyback rate into rate field of order. If piggyback is infusing at a rate less than 100 mL/hr, enter 25 mL into dose field and 100 mL/hr into rate field of order. For KVO fluids, enter rate of 20 mL/hr or less into rate field of order. Start: 05-05-2022 take 10 mL intraveno usly once as needed 10 mL, IntraVENous, PRN, Starting on Wed05/05/22 at 1829, Until Discontinued, Line Care, After every IV line use Start: 03-26-2021 0.9 % sodium c hloride infusion Start: 03-26-2021 sodium chlorid e flush 0.9 % injection 5-40 mL Start: 02-17-2021 End: 02-17-2021 0.9 % sodium chloride bolus Start: 12-04-2020 take 1 dose intraven ously twice daily 5-40 mL, Intravenous, EVERY 12 HOURS SCHEDULED (2 times per day), First dose on Wed12/04/20 at 0900 For Line Patency: Peripheral IV = 5 mL; Midline or Central Line = 10 mL/lumen. If following IV push medication, administer flush at same rate as the IV push. Flush volume is determined by type of infusion therapy being given. For non-viscous solutions use: Peripheral IV = 5 mL Midline or Central Line = 10 mL/lumen For viscous solutions (i.e. blood components, parenteral nutrition, contrast media, or after obtaining blood sample) use: Peripheral IV = 10 mL Midline or Central Line = 20 mL/lumen Start: 12-03-2020 take 25 mL intraveno usly every hour as needed 25 mL, Intravenous, at 100 mL/hr, PRN, If patient receiving piggyback infusions without ordered maintenance IV fluids or with frequent/long duration piggyback infusions, Starting Wed12/03/20 at 2359 Administer at the same rate as the piggyback being infused. Start: 12-03-2020 take 5-40 mL intrave nously once as needed 5-40 mL, Intravenous, PRN, Line Care, After every IV line use, Starting Wed12/03/20 at 2359 For Line Patency: Peripheral IV = 5 mL; Midline or Central Line = 10 mL/lumen. If following IV push medication, administer flush at same rate as the IV push. Flush volume is determined by type of infusion therapy being given. For non-viscous solutions use: Peripheral IV = 5 mL Midline or Central Line = 10 mL/lumen For viscous solutions (i.e. blood components, parenteral nutrition, contrast media, or after obtaining blood sample) use: Peripheral IV = 10 mL Midline or Central Line = 20 mL/lumen Start: 02-27-2020 0.9 % sodium c hloride infusion Start: 02-27-2020 End: 02-27-2020 0.9 % sodium chloride bolus Start: 02-23-2020 0.9 % sodium c hloride infusion Start: 02-23-2020 sodium chlorid e flush 0.9 % injection 10 mL Start: 02-19-2020 10 mL, Intrave nous, EVERY 12 HOURS SCHEDULED (2 times per day), First dose on Wed02/19/20 at 2345 Start: 02-19-2020 take 10 mL intraveno us route once as needed 10 mL, Intravenous, PRN, Line Care, After every IV line use, Starting Wed02/19/20 at 2316 Start: 01-26-2020 End: 01-26-2020 0.9 % sodium chloride bolus Start: 01-22-2020 End: 01-23-2020 0.9 % sodium chloride bolus Start: 09-22-2019 End: 09-22-2019 0.9 % sodium chloride bolus Start: 08-13-2019 End: 08-14-2019 0.9 % sodium chloride bolus Start: 07-25-2019 10 mL, Intrave nous, EVERY 12 HOURS SCHEDULED (2 times per day), First dose on Wed07/25/19 at 0900 Start: 07-25-2019 take 10 mL intraveno usly once as needed 10 mL, Intravenous, PRN, Line Care, After every IV line use, Starting Wed07/25/19 at 0059 Start: 07-24-2019 End: 07-24-2019 0.9 % sodium chloride bolus Start: 07-18-2019 sodium chlorid e flush 0.9 % injection 10 mL Start: 07-17-2019 End: 07-19-2019 0.9 % sodium chloride infusi on Start: 07-17-2019 End: 07-17-2019 0.9 % sodium chloride bolus Start: 05-25-2019 End: 05-25-2019 0.9 % sodium chloride bolus Start: 05-14-2019 sodium chlorid e (PF) 0.9 % injection 10 mL Start: 05-14-2019 sodium chlorid e flush 0.9 % injection 10 mL Start: 05-12-2019 10 mL, Intrave nous, EVERY 12 HOURS SCHEDULED (2 times per day), First dose on Wed05/12/19 at 2100 Start: 05-12-2019 take 10 mL intraveno us route once as needed 10 mL, Intravenous, PRN, Line Care, After every IV line use, Starting Wed05/12/19 at 1824 Start: 04-18-2019 End: 04-18-2019 0.9 % sodium chloride bolus technetium Tc-99m sulfur col loid (Nycomed-SC) radio-isotope solution 1.1 millicurie (2 sources) Start: 03-02-2024 End: 03-02-2024 1.1 millicurie, Oral, Once, On [place] 03/02/24 at 0845, For 1 dose Problems Active Problems Problem Classification Problem Date Documented Da te Episodic/Chronic Abdominal hernia (20 sources) Gastroesophageal reflux disease with hiatal hernia; Translations: [Diaphragmatic hernia without obstruction or gangrene] 02-23-2024 Episodic Acute bronchitis (2 sources) Viral bronchitis; Translations: [Acute bronchitis due to other specified organisms] 07-04-2023 Episodic Allergic reactions (6 sources) Latex allergy status; Translations: [Allergy status to narcotic agent status] Onset: 2 Episodic Anxiety disorders (20 sources) Generalized anxiety disorder; Translations: [Generalized anxiety disorder] Onset: 7 03-05-2017 Chronic Asthma (20 sources) Asthma; Translations: [Unspecified asthma, uncomplicated] Onset: 7 03-05-2017 Chronic Cardiac and circulatory congenital anomalies (20 sources) Patent foramen ovale; Translations: [Atrial septal defect] Onset: 7 03-05-2017 Chronic Cardiac and circulatory congenital anomalies (2 sources) Personal history of (corrected) congenital malformations of heart and circulatory system; Translations: [Personal history of congenital malform of heart and circ sys] Onset: 2 Episodic Cardiac dysrhythmias (1 source) Palpitations; Translations: [Palpitations] Episodic Esophageal disorders (3 sources) Gastro-esophageal reflux disease without esophagitis; Translations: [Gastroesophageal reflux disease] Onset: 2 Chronic Gastritis and duodenitis (1 source) Gastritis; Translations: [Gastritis, unspecified, without bleeding] 05-07-2020 Episodic Headache; including migraine (1 source) Tension-type headache; Translations: [Tension-type headache, unspecified, not intractable] 12-02-2022 Chronic Inflammatory diseases of female pelvic organs (2 sources) Female pelvic peritoneal adhesions (postinfective); Translations: [Female pelvic peritoneal adhesions (postinfective)] Onset: 2 Episodic Influenza (7 sources) Influenza-like illness; Translations: [Influenza due to unidentified influenza virus with other respiratory manifestations] Onset: 4 05-15-2024 Episodic Mood disorders (1 source) Bipolar disorder; Translations: [Bipolar disorder, unspecified] 05-06-2020 Chronic Nonmalignant breast conditions (9 sources) Fibrocystic disease of breast; Translations: [Diffuse cystic mastopathy of unspecified breast] Onset: 5 Chronic Nonmalignant breast conditions (20 sources) Lump in upper outer quadrant of left breast; Translations: [Unspecified lump in the left breast, upper outer quadrant] Onset: 5 Episodic Other complications of (1 source) Reduced movement; Translations: [Decreased movements, third trimester, not applicable or unspecified] 04-28-2018 Episodic Other complications of (1 source) Supervision of other high risk pregnancies, second trimester; Translations: [Risk of labor in second trimester] 04-28-2018 Episodic Other complications of (1 source) Vaginal discharge; Translations: [Other specified related conditions, third trimester] 04-28-2018 Episodic Other complications of (1 source) High risk ; Translations: [Supervision of other high risk pregnancies, second trimester] 04-28-2018 Episodic Other connective tissue disease (1 source) Iliopsoas bursitis; Translations: [Other bursitis of hip, unspecified hip] 05-05-2020 Episodic Other diseases of kidney and ureters (17 sources) Hydronephrosis; Translations: [Unspecified hydronephrosis] Onset: 9 Resolved: 9 07-19-2019 Episodic Other female genital disorders (2 sources) Endometrial hyperplasia, unspecified; Translations: [Endometrial hyperplasia, unspecified] Onset: 2 Chronic Other female genital disorders (2 sources) Abnormal uterine and vaginal bleeding, unspecified; Translations: [Abnormal uterine and vaginal bleeding, unspecified] Onset: 2 Chronic Other female genital disorders (2 sources) Other specified abnormal uterine and vaginal bleeding; Translations: [Other specified abnormal uterine and vaginal bleeding] Onset: 2 Chronic Other female genital disorders (2 sources) Polyp of corpus uteri; Translations: [Polyp of corpus uteri] Onset: 2 Episodic Other gastrointestinal disorders (3 sources) Chronic idiopathic constipation; Translations: [Chronic idiopathic constipation] Onset: 5 11-24-2024 Chronic Other gastrointestinal disorders (1 source) Chronic idiopathic constipation; Translations: [Chronic idiopathic constipation] Onset: 5 Chronic Other gastrointestinal disorders (1 source) Abdominal mass; Translations: [Abdominal mass, unspecified abdominal location] Episodic Other gastrointestinal disorders (10 sources) Constipation; Translations: [Constipation, unspecified] Resolved: 9 Episodic Other gastrointestinal disorders (1 source) Hemorrhagic diarrhea ; Translations: [Diarrhea, unspecified] 05-05-2020 Episodic Other gastrointestinal disorders (1 source) Constipation alternates with diarrhea; Translations: [Other specified symptoms and signs involving the digestive system and abdomen] 03-08-2024 Episodic Other lower respiratory disease (3 sources) Wheezing; Translations: [Wheezing] Episodic Other lower respiratory disease (2 sources) Cough; Translations: [Acute cough] 07-08-2023 Episodic Other lower respiratory disease (2 sources) Cough; Translations: [Acute cough] 09-20-2024 Episodic Other nervous system disorders (4 sources) Other chronic pain; Translations: [Other chronic pain] Onset: 2 Chronic Other nervous system disorders (2 sources) Other acute postprocedural pain; Translations: [Other acute postprocedural pain] Onset: 2 Episodic Other non-traumatic joint disorders (1 source) Joint pain; Translations: [Pain in unspecified joint] 06-21-2024 Episodic Other nutritional; endocrine; and metabolic disorders (1 source) Weight loss; Translations: [Abnormal weight loss] Episodic Other upper respiratory disease (20 sources) Allergic rhinitis; Translations: [Allergic rhinitis, unspecified] Onset: 7 03-05-2017 Chronic Other upper respiratory infections (4 sources) Bacterial sinusitis; Translations: [Chronic sinusitis, unspecified] 11-21-2023 Chronic Other upper respiratory infections (11 sources) Sore throat symptom; Translations: [Acute pharyngitis, unspecified] Episodic Otitis media and related conditions (3 sources) Acute left otitis media; Translations: [Otitis media, unspecified, left ear] 03-13-2024 Episodic Pleurisy; pneumothorax; pulmonary collapse (4 sources) Pleurisy; Translations: [Pleurisy] Onset: 5 11-08-2024 Episodic Regional enteritis and ulcerative colitis (3 sources) Ulcerative colitis, unspecified, without complications; Translations: [Acute ulcerative colitis] Onset: 2 Chronic Residual codes; unclassified (13 sources) Tobacco user; Translations: [Tobacco abuse] 03-17-2017 Chronic Residual codes; unclassified (1 source) Viral syndrome; Translations: [Other general symptoms and signs] 07-23-2023 Episodic Residual codes; unclassified (5 sources) Past history of procedure; Translations: [Other specified postprocedural states] 09-14-2023 Episodic Residual codes; unclassified (5 sources) History of colonoscopy; Translations: [Other specified postprocedural states] 09-14-2023 Episodic Residual codes; unclassified (1 source) Procedure not done; Translations: [Procedure and treatment not carried out, unspecified reason] 10-21-2023 Episodic Residual codes; unclassified (14 sources) Other problems related to lifestyle; Translations: [Other problems related to lifestyle] 06-21-2024 Episodic Unclassified (1 source) Unknown / UNK(Unknown) Onset: 8 Unclassified (1 source) Wound finding; Translations: [Visit for wound check] Unclassified (1 source) Vaping-related disorder; 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] Onset: 2 Unclassified (1 source) New Patient Onset: 4 Viral infection (2 sources) Viral disease; Translations: [Viral infection, unspecified] 03-09-2024 Episodic Past or Other Problems Problem Classification Problem Date Documented Da te Episodic/Chronic Abdominal pain (20 sources) Left upper quadrant pain; Translations: [Pain in pelvis] Onset: 05-13-2019 Resolved: 02-23-2024 05-13-2019 Episodic Abdominal pain (9 sources) Intractable abdominal pain; Translations: [Intractable abdominal pain] Onset: 07-17-2019 Resolved: 07-27-2019 07-27-2019 Administrative/social admission (14 sources) Social context finding; Translations: [Problem related to social environment, unspecified] Onset: 06-03-2016 Resolved: 04-29-2018 04-29-2018 Episodic Bacterial infection; unspecified site (14 sources) Bacteria present; Translations: [Streptococcus, group B, as the cause of diseases classified elsewhere] Onset: 12-30-2017 Resolved: 03-04-2018 03-04-2018 Episodic Deficiency and other anemia (20 sources) Anemia; Translations: [Anemia, unspecified] Onset: 07-17-2019 Resolved: 02-23-2024 07-27-2019 Episodic Digestive congenital anomalies (20 sources) Congenital choledochal cyst; 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] Onset: 05-12-2019 Resolved: 02-23-2024 05-12-2019 Chronic Fluid and electrolyte disorders (4 sources) Dehydration; Translations: [Dehydration] Onset: 06-05-2024 06-05-2024 Episodic Gastrointestinal hemorrhage (1 source) Rectal hemorrhage; Translations: [Hemorrhage of anus and rectum] Episodic Genitourinary congenital anomalies (20 sources) Hydronephrosis with ureteropelvic junction obstruction; 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] Onset: 07-17-2019 Resolved: 02-23-2024 Chronic Genitourinary symptoms and ill-defined conditions (20 sources) Dysuria; Translations: [Blanco hematuria] Onset: 12-27-2020 Resolved: 02-23-2024 Episodic Malaise and fatigue (1 source) Fatigue; Translations: [Other fatigue] Episodic Nausea and vomiting (20 sources) Vomiting; Translations: [Intractable nausea and vomiting] Onset: 05-13-2019 Resolved: 02-23-2024 05-13-2019 Episodic Nonspecific chest pain (20 sources) Precordial pain; Translations: [Precordial pain] Onset: 07-12-2018 Resolved: 02-23-2024 07-12-2018 Episodic Other complications of (15 sources) Maternal tobacco use; Translations: [Smoking (tobacco) complicating , second trimester] Onset: 05-27-2017 Resolved: 05-03-2019 04-28-2018 Episodic Other complications of (14 sources) Late entry into care; Translations: [Supervision of with insufficient care, unspecified trimester] Onset: 11-28-2015 Resolved: 06-03-2016 08-04-2021 Episodic Other complications of (14 sources) Finding of pattern of ; Translations: [Supervision of other high risk pregnancies, unspecified trimester] Onset: 05-27-2017 Resolved: 03-04-2018 03-04-2018 Episodic Other disorders of stomach and duodenum (20 sources) Gastroparesis syndrome; Translations: [Gastroparesis] Onset: 11-29-2023 09-14-2023 Episodic Other disorders of stomach and duodenum (1 source) Gastroparesis; Translations: [Gastroparesis] Onset: 11-29-2023 Episodic Other female genital disorders (20 sources) Abnormal uterine bleeding; Translations: [Abnormal uterine and vaginal bleeding, unspecified] Onset: 03-12-2022 Resolved: 02-23-2024 03-12-2022 Chronic Other female genital disorders (1 source) Vaginal bleeding; Translations: [Vaginal bleeding] Episodic Other gastrointestinal disorders (20 sources) Mass of duodenum; Translations: [Other diseases of stomach and duodenum] Onset: 05-12-2019 Resolved: 02-23-2024 05-12-2019 Episodic Other gastrointestinal disorders (20 sources) Chronic constipation; Translations: [Other constipation] Onset: 07-27-2019 05-14-2019 Episodic Other gastrointestinal disorders (1 source) Chronic idiopathic constipation; Translations: [Chronic idiopathic constipation] Episodic Other gastrointestinal disorders (20 sources) Diarrhea; Translations: [Diarrhea, unspecified] Onset: 12-06-2020 Resolved: 02-23-2024 Episodic Other gastrointestinal disorders (2 sources) Diarrhea, unspecified; Translations: [Diarrhea, unspecified] Onset: 06-05-2024 Episodic Other gastrointestinal disorders (2 sources) Other specified symptoms and signs involving the digestive system and abdomen; Translations: [Other specified symptoms and signs involving the digestive system and abdomen] Onset: 03-08-2024 Episodic Other gastrointestinal disorders (2 sources) Constipation, unspecified; Translations: [Constipation, unspecified] Onset: 02-16-2024 Episodic Other lower respiratory disease (1 source) Wheezing; Translations: [Wheezing] Onset: 05-15-2024 Episodic Other nervous system disorders (20 sources) Postoperative pain ; Translations: [Other acute postprocedural pain] Onset: 05-05-2022 Resolved: 02-23-2024 Episodic Other non-traumatic joint disorders (2 sources) Arthralgia of the pelvic region and thigh; Translations: [Pain in joint involving right pelvic region and thigh] Episodic Other non-traumatic joint disorders (2 sources) Pain in unspecified joint; Translations: [Pain in unspecified joint] Onset: 06-21-2024 Episodic Other and delivery including normal (20 sources) Normal ; Translations: [Encounter for supervision of other normal , third trimester] Onset: 01-22-2016 Resolved: 03-04-2018 06-03-2016 Episodic Other screening for suspected conditions (not mental disorders or infectious disease) (20 sources) Imaging of biliary tract abnormal; Translations: [Barium enema abnormal] Onset: 05-13-2019 Resolved: 02-23-2024 05-13-2019 Episodic Ovarian cyst (20 sources) Hemorrhagic cyst of ovary; Translations: [Unspecified ovarian cyst, left side] Onset: 07-25-2019 Resolved: 07-27-2019 07-27-2019 Episodic Pancreatic disorders (not diabetes) (20 sources) Gallstone pancreatitis; Translations: [Acute pancreatitis] Onset: 07-24-2019 Resolved: 07-27-2019 07-27-2019 Episodic Residual codes; unclassified (20 sources) Tobacco user; Translations: [Tobacco use] Onset: 03-17-2017 Resolved: 02-23-2024 03-17-2017 Episodic Residual codes; unclassified (4 sources) Other specified postprocedural states; Translations: [Other specified postprocedural states] Onset: 05-05-2022 Episodic Residual codes; unclassified (14 sources) FH: Congenital anomaly; Translations: [Family history of other congenital malformations, deformations and chromosomal abnormalities] Onset: 11-28-2015 Resolved: 06-03-2016 08-04-2021 Episodic Residual codes; unclassified (2 sources) Acquired absence of other specified parts of digestive tract; Translations: [Acquired absence of other specified parts of digestive tract] Onset: 03-08-2024 Episodic Screening and history of mental health and substance abuse codes (20 sources) Personal history of nicotine dependence; Translations: [H/O: anxiety state] Onset: 05-27-2017 Episodic Skin and subcutaneous tissue infections (2 sources) Skin lesion; Translations: [Local infection of the skin and subcutaneous tissue, unspecified] Episodic Sprains and strains (3 sources) Low back strain; Translations: [Strain of muscle, fascia and tendon of right hip, sequela] Onset: 02-23-2024 02-23-2024 Episodic Syncope (20 sources) Syncope and collapse; Translations: [Syncope and collapse] Onset: 03-15-2017 Resolved: 02-23-2024 03-15-2017 Episodic Unclassified (1 source) False labor before 37 completed weeks of gestation, second trimester Onset: 09-24-2017 Unclassified (1 source) Vaping-related disorder; 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 Patient has appointment scheduled with MALI Iglesias on 01/29/25. [facility] 36on 01-10-2025 36 S-Patient is calling with an episode of vomit with streaks of blood. B-This occurred at 7:30 pm tonight. A-States she developed sharp cramping in RLQ and nausea since 4:00 pm. She vomited x 1 episode at 7:30 pm with streaks of bright red blood. She vomited again at 7:50 pm without blood. She is in the process of having a BM now. No other symptoms. R-I advised ED. Reason for Disposition [1] Constant abdominal pain AND [2] present > 2 hours Answer Assessment - Initial Assessment Questions 1. APPEARANCE of BLOOD: What does the blood look like? (e.g., pink, red blood, coffee-grounds) Streaks of bright red 2. AMOUNT: How much blood was lost? (e.g., few streaks or strands, tablespoon, cup) streaks 3. VOMITING BLOOD: How many times did it happen? or How many times in the past 24 hours? 1 4. VOMITING WITHOUT BLOOD: How many times in the past 24 hours? 1 5. ONSET: When did vomiting of blood begin? 7:30 pm 6. CAUSE: What do you think is causing the vomiting of blood? unknown 7. BLOOD THINNERS: Do you take any blood thinners? (e.g., Coumadin/warfarin, Pradaxa/dabigatran, aspirin) no 8. DEHYDRATION: Are there any signs of dehydration? When was the last time you urinated? Do you feel dizzy? no 9. ABDOMEN PAIN: Are you having any abdomen pain? If Yes, ask: What does it feel like? (e.g., crampy, dull, intermittent, constant) Abdominal pain is sharp cramping in RLQ since 4:00 pm 10. DIARRHEA: Is there any diarrhea? If Yes, ask: How many times today? no 11. OTHER SYMPTOMS: Do you have any other symptoms? (e.g., fever, blood in stool) no 12. : Is there any chance you are ? When was your last menstrual period? no Protocols used: Vomiting [id number] Normal [facility] BASIC METABOLIC PANELon 06-0 Anion gap [Moles/Vol] 9 mmol/L Normal 3-13 [facility] Comment on above: Performed By: #### L AB15, LAB20, LAB99 ####Machine Spreader: KELLY RODRIGES ([id number])[facility]ITALParr[facility] WOOD ([address] Calcium [Mass/Vol] 9.1 mg/dL Normal 8.4-10.2 [facility] Comment on above: Performed By: #### L AB15, LAB20, LAB99 ####Machine Spreader: KELLY RODRIGES ([id number])[facility]ITALA JIA RITTMAN (SWRLAB)[address] [place] [address] [place] Chloride [Moles/Vol] 112 mmol/L High 98-107 [facility] Comment on above: Performed By: #### L AB15, LAB20, LAB99 ####Machine Spreader: KELLY RODRIGES ([id number])[facility]ITALParr[facility] RO [address] (SWRL[address] [place] [address] [place] CO2 [Moles/Vol] 20 mmol/L Low 22-29 [facility] Comment on above: Performed By: #### Eugene AB15, LAB20, LAB99 ####Machine Spreader: KELLY RODRIGES ([id number])[facility]ITAL[facility] RO [place] (SWRLAB)[address] Creatinine [Mass/Vol] 0.78 mg/dL Normal 0.57-1.11 [facility] Comment on above: Performed By: #### Eugene AB15, LAB20, LAB99 ####Machine Spreader: KELLY RODRIGES ([id number])[facility]ITALParr[facility] RO [place] (SWRLAB)[address] [place] [address] GLOMERULAR FILTRATION RATE ML/MIN/1.73 SQ M.PREDICTED >90.0 Normal >60.0 [facility] Comment on above: Result Comment: Calc ulation based on the Chronic Kidney Disease Epidemiology Collaboration (CKD-EPI) equation refit without adjustment for race Performed By: #### Eugene BOOTH15, LAB20, LAB99 ####Machine Spreader: KELLY RODRIGES ([id number])[facility]ITALParr[facility] [address] (SW[address] [place] [address] [place] Glucose [Mass/Vol] 86 mg/dL Normal 74-100 [facility] Comment on above: Performed By: #### L AB15, LAB20, LAB99 ####Machine Spreader: KELLY RODRIGES ([id number])[facility]ITALP[facility] [address] (SW[address] [place] [address] [place] Potassium [Moles/Vol] 4.2 mmol/L Normal 3.5-5.1 [facility] Comment on above: Result Comment: TC Potential interference from hemolysis Performed By: #### L AB15, LAB20, LAB99 ####Machine Spreader: KELLY RODRIGES ([id number])[facility]ITALP[facility] RO [place] (SWRL[address] [place] [address] Sodium [Moles/Vol] 141 mmol/L Normal 136-145 [facility] Comment on above: Performed By: #### Eugene AB15, LAB20, LAB99 ####Machine Spreader: KELLY RODRIGES ([id number])[facility] HOSPITALJIA RITTMAN (SWRLAB)[address] [place] [address] Urea nitrogen [Mass/Vol] 13 mg/dL Normal 8-21 [facility] Comment on above: Performed By: #### L AB15, LAB20, LAB99 ####Machine Spreader: KELLY RODRIGES ([id number])[facility] JIA HotelcloudTMAN (SWRLAB)[address] [place] [address] Basic metabolic 1998 panelon 01-10-2025 Anion gap [Moles/Vol] 9 mmol/L 3 - 13 mmol/L Calcium [Mass/Vol] 9.1 mg/dL 8.4 - 10. 2 mg/dL Chloride [Moles/Vol] 112 mmol/L High 98 - 10 7 mmol/L CO2 [Moles/Vol] 20 mmol/L Low 22 - 29 mmol/L Creatinine [Mass/Vol] 0.78 mg/dL 0.57 - 1.11 mg/dL GFR/1.73 sq M.predicted (S/P/Bld) [Vol rate/Area] - [facility] Comment on above: Calculation based on the Chronic Kidney Disease Epidemiology Collaboration (CKD-EPI) equation refit without adjustment for race Glucose [Mass/Vol] 86 mg/dL 74 - 100 mg/dL [facility] Interpretation and review of laboratory results Abnormal Potassium [Moles/Vol] 4.2 mmol/L 3.5 - 5.1 mmol/L Comment on above: TC Potential interference from hemolysis Sodium [Moles/Vol] 141 mmol/L 136 - 145 mmol/L Urea nitrogen [Mass/Vol] 13 mg/dL 8 - 21 mg/dL CBC W Auto Differential pane l (Bld)on 01-10-2025 Basophils (Bld) [#/Vol] 0 10*3/uL 0.0 - 0.2 10*3/uL Basophils/100 WBC (Bld) 0.5 % 0.0 - 2.0 % Eosinophils (Bld) [#/Vol] 0.2 10*3/uL 0.0 - 0.5 10*3/uL Eosinophils/100 WBC (Bld) 2.5 % 0.0 - 6.0 % Erythrocyte distribution width (RBC) [Ratio] 12.5 % 11.5 - 15.0 % Hematocrit (Bld) [Volume fraction] 38.9 % 35.0 - 47.0 % Hemoglobin (Bld) [Mass/Vol] 13.5 g/dL 11.7 - 16.0 g/dL Immature granulocytes (Bld) [#/Vol] 0 10*3/uL NINF - 0.1 10*3/uL Immature granulocytes/100 WBC (Bld) 0.1 % 0.0 - 2.0 % Interpretation and review of laboratory results Normal Lymphocytes (Bld) [#/Vol] 3 10*3/uL 1.0 - 4.3 10*3/uL Lymphocytes/100 WBC (Bld) 40.9 % 15.0 - 45.0 % MCH (RBC) [Entitic mass] 31.1 pg 26.0 - 34.0 pg MCHC (RBC) [Mass/Vol] 34.7 % 30.5 - 36.0 % MCV (RBC) [Entitic vol] 89.6 fL 77.0 - 99.0 fL Monocytes (Bld) [#/Vol] 0.5 10*3/uL 0.0 - 0.9 10*3/uL Monocytes/100 WBC (Bld) 6.6 % 5.0 - 13.0 % Neutrophils (Bld) [#/Vol] 3.6 10*3/uL 1.8 - 7.5 10*3/uL Neutrophils/100 WBC (Bld) 49.4 % 38.0 - 82.0 % Nucleated RBC/100 WBC (Bld) [Ratio] 0 % Platelet mean volume (Bld) [Entitic vol] 9.7 fL 9.0 - 12.7 fL Comment on above: MPV is a calculated measurement using platelet volume ratio Platelets (Bld) [#/Vol] 330 10*3/uL 140 - 440 10*3/uL RBC (Bld) [#/Vol] 4.34 10*6/uL 3.80 - 5.2 0 10*6/uL WBC (Bld) [#/Vol] 7.3 10*3/uL 3.6 - 10.7 10*3/uL [facility] CBC WITH AUTO DIFFERENTIALon 01-10-2025 Basophils (Bld) [#/Vol] 0.0 10*3/uL Normal 0.0-0.2 [facility] Comment on above: Performed By: #### L [id number] ####Machine Spreader: KELLY RODRIGES ([id number])[facility] JIA RITTMAN (SWRLAB)[address] [place] [address] [place] Basophils/100 WBC (Bld) 0.5 % Normal 0.0-2.0 [facility] Comment on above: Performed By: #### L [id number] ####Machine Spreader: KELLY RODRIGES ([id number])[facility] JIA [address] (SWRLAB)[address] [place] [address] [place] Eosinophils (Bld) [#/Vol] 0.2 10*3/uL Normal 0.0-0.5 [facility] Comment on above: Performed By: #### L [id number] ####Machine Spreader: KELLY RODRIGES ([id number])[facility] JIA [address] (SWRLAB)[address] [place] [address] [place] Eosinophils/100 WBC (Bld) 2.5 % Normal 0.0-6.0 [facility] Comment on above: Performed By: #### L [id number] ####Machine Spreader: KELLY RODRIGES ([id number])[place] RO [place]TM[place] (SWRLAB)[address] [place] [address] Erythrocyte distribution width (RBC) [Ratio] 12.5 % Normal 11.5-15.0 [facility] Comment on above: Performed By: #### L [id number] ####Machine Spreader: KELLY RODRIGES ([id number])[facility]ITALParr[facility] RO [place]TM[place] (SWRLAB)[address] [place] [address] Hematocrit (Bld) [Volume fraction] 38.9 % Normal 35.0-47.0 [facility] Comment on above: Performed By: #### L [id number] ####Machine Spreader: KELLY RODRIGES ([id number])[facility]ITALP[facility] RO [place] (SWRLAB)[address] [place] [address] Hemoglobin (Bld) [Mass/Vol] 13.5 g/dL Normal 11.7-16.0 [facility] Comment on above: Performed By: #### L [id number] ####Machine Spreader: KELLY RODRIGES ([id number])[facility]ITALP[facility] RO [place] (SWRLAB)[address] [place] [address] IMMATURE GRANS % 0.1 % Normal 0.0-2.0 [facility] Comment on above: Performed By: #### L [id number] ####Machine Spreader: KELLY RODRIGES ([id number])[facility]ITALParr[facility] [place] (SWRLAB)[address] [place] [address] IMMATURE GRANS ABSOLUTE 0.0 10*3/uL Normal <0.1 [facility] Comment on above: Performed By: #### L [id number] ####Machine Spreader: KELLY RODRIGES ([id number])[facility]ITALP[facility] RO [place] (SWRLAB)[address] [place] [address] Lymphocytes (Bld) [#/Vol] 3.0 10*3/uL Normal 1.0-4.3 [facility] Comment on above: Performed By: #### L [id number] ####Machine Spreader: KELLY RODRIGES ([id number])[place] RO [place] (SWRLAB)[address] [place] [address] Lymphocytes/100 WBC (Bld) 40.9 % Normal 15.0-45.0 [facility] Comment on above: Performed By: #### L [id number] ####Machine Spreader: KELLY RODRIGES ([id number])[facility]ITALP[facility] RO [place] (SWRLAB)[address] [place] [address] MCH (RBC) [Entitic mass] 31.1 pg Normal 26.0-34.0 [facility] Comment on above: Performed By: #### L [id number] ####Machine Spreader: KELLY RODRIGES ([id number])[facility]ITALP[facility] RO [place] (SWRL[place])[address] [place] [address] MCHC 34.7 % Normal 30.5-36.0 [facility] Comment on above: Performed By: #### L [id number] ####Machine Spreader: KELLY RODRIGES ([id number])[facility]ITAL[facility] RO [place] (SWRLAB)[address] [place] [address] MCV (RBC) [Entitic vol] 89.6 fL Normal 77.0-99.0 [facility] Comment on above: Performed By: #### L [id number] ####Machine Spreader: KELLY RODRIGES ([id number])[facility]ITAL[facility] RO [place] (SWRLAB)[address] [place] [address] Monocytes (Bld) [#/Vol] 0.5 10*3/uL Normal 0.0-0.9 [facility] Comment on above: Performed By: #### L [id number] ####Machine Spreader: KELLY RODRIGES ([id number])[facility]ITALP[facility] RO [place] (SWRLAB)[address] [place] [address] [place] Monocytes/100 WBC (Bld) 6.6 % Normal 5.0-13.0 [facility] Comment on above: Performed By: #### L [id number] ####Machine Spreader: KELLY RODRIGES ([id number])[facility]ITALP[facility] RO RITTMAN (SWRLAB)[address] [place] [address] NEUTROPHILS ABSOLUTE 3.6 10*3/uL Normal 1.8-7.5 [facility] Comment on above: Performed By: #### L [id number] ####Machine Spreader: KELLY RODRIGES ([id number])[facility]ITAL[facility]arr[facility] RO RITTMAN (SWRLAB)[address] [place] [address] Neutrophils/100 WBC (Bld) 49.4 % Normal 38.0-82.0 [facility] Comment on above: Performed By: #### L [id number] ####Machine Spreader: KELLY RODRIGES ([id number])[facility] RO [place] (SWRLAB)[address] [place] [address] NRBC 0.0 /100 WBCs Normal 0.0-2.0 [facility] Comment on above: Performed By: #### L [id number] ####Machine Spreader: KELLY RODRIGES ([id number])[facility] RO [place] (SWRLAB)[address] [place] [address] Platelet mean volume (Bld) [Entitic vol] 9.7 fL Normal 9.0-12.7 [facility] Comment on above: Result Comment: MPV is a calculated measurement using platelet volume ratio Performed By: #### L [id number] ####Machine Spreader: KELLY RODRIGES ([id number])[facility] RO [place] (SWRLAB)[address] [place] [address] Platelets (Bld) [#/Vol] 330 10*3/uL Normal 140-440 [facility] Comment on above: Performed By: #### L [id number] ####Machine Spreader: KELLY RODRIGES ([id number])[facility] HOLLOWAYJIA RITTMAN (SWRLAB)[address] [place] [address] [place] RBC (Bld) [#/Vol] 4.34 10*6/uL Normal 3.80-5.20 [facility] Comment on above: Performed By: #### L [id number] ####Machine Spreader: KELLY RODRIGES ([id number])[facility] RO RITTMAN (SWRLAB)[address] [place] [address] [place] WBC (Bld) [#/Vol] 7.3 10*3/uL Normal 3.6-10.7 [facility] Comment on above: Performed By: #### L [id number] ####Machine Spreader: KELLY RODRIGES ([id number])[facility] HOLLOWAYJIA RITTMAN (SWRLAB)[address] [place] [address] COMPLETE URINALYSIS WITH REF WILL TO CULTUREon 01-10-2025 AMORPHOUS PHOSPHATES (#/HPF) IN URINE Many Abnormal Negative [facility] Comment on above: Performed By: #### L [id number] ####Machine Spreader: KELLY RODRIGES ([id number])[facility] HOLLOWAYJIA RITTMAN (SWRLAB)[address] [place] [address] BACTERIA (#/HPF) IN URINE Few Abnormal Negative [facility] Comment on above: Performed By: #### L [id number] ####Machine Spreader: KELLY RODRIGES ([id number])[facility] HOLLOWAYJIA RITTMAN (SWRLAB)[address] [place] [address] [place] BILIRUBIN, TOTAL PRESENCE IN URINE Negative Normal Negative [facility] Comment on above: Performed By: #### L [id number] ####Machine Spreader: KELLY RODRIGES ([id number])[facility] HOLLOWAYJIA RITTMAN (SWRLAB)[address] [place] [address] Clarity (U) Turbid Abnormal Clear [facility] Comment on above: Performed By: #### L [id number] ####Machine Spreader: KELLY RODRIGES ([id number])[facility] JIA RITTMAN (SWRLAB)[address] [place] [address] [place] Color (U) Light Yellow Normal Lt. Yellow [facility] Comment on above: Performed By: #### L [id number] ####Machine Spreader: KELLY RODRIGES ([id number])[facility] RO [place] (SWRLAB)[address] [place] [address] [place] GLUCOSE (MG/DL) IN URINE Normal Normal Normal (<70) [facility] Comment on above: Performed By: #### L [id number] ####Machine Spreader: KELLY RODRIGES ([id number])[facility] RO [place] (SWRLAB)[address] [place] [address] [place] HEMOGLOBIN PRESENCE IN URINE Negative Normal Negative [facility] Comment on above: Performed By: #### L [id number] ####Machine Spreader: KELLY RODRIGES ([id number])[facility]ITALA JIA RITTMAN (SWRLAB)[address] [place] [address] [place] Ketones Ql (U) Negative Normal Negative [facility] Comment on above: Performed By: #### L [id number] ####Machine Spreader: KELLY RODRIGES ([id number])[facility] RO [place] (SWRLAB)[address] [place] [address] [place] LEUKOCYTE ESTERASE PRESENCE IN URINE BY TEST STRIP Negative Normal Negative [facility] Comment on above: Performed By: #### L [id number] ####Machine Spreader: KELLY RODRIGES ([id number])[facility] RO [place]TMAN (SWRLAB)[address] [place] [address] [place] MUCUS (#/LPF) IN URINE SEDIMENT Moderate Abnormal Negative [facility] Comment on above: Performed By: #### L [id number] ####Machine Spreader: KLELY RODRIGES ([id number])[facility] HOLLOWAYJIA RITTMAN (SWRLAB)[address] [place] [address] [place] NITRITE PRESENCE IN URINE Negative Normal Negative [facility] Comment on above: Performed By: #### L [id number] ####Machine Spreader: KELLY RODRIGES ([id number])[facility] ROMANTMAN (SWRLAB)[address] [place] [address] pH (U) 7.5 [pH] Normal 5.0-8.0 [facility] Comment on above: Performed By: #### L [id number] ####Machine Spreader: KELLY RODRIGES ([id number])[facility] RO [place] (SWRLAB)[address] [place] [address] Protein (U) [Mass/Vol] 10 mg/dL Abnormal Negative [facility] Comment on above: Performed By: #### L [id number] ####Machine Spreader: KELLY RODRIGES ([id number])[facility] ROMANTMAN (SWRLAB)[address] [place] [address] RBC (#/HPF) IN URINE SEDIMENT 0-2 Normal 0-2 [facility] Comment on above: Performed By: #### L [id number] ####Machine Spreader: KELLY RODRIGES ([id number])[facility] ROMANTMAN (SWRLAB)[address] [place] [address] Specific gravity (U) [Rel density] 1.031 High 1.005-1.030 [facility] Comment on above: Result Comment: ESTHER Reyna COMMENTS: A specimen with <=10 WBC is not consistent with inflammation. This specimen will not reflex to a urine culture. Performed By: #### L [id number] ####Machine Spreader: KELLY RODRIGES ([id number])[facility] RO [place] (SWRLAB)[address] [place] [address] Specimen volume (U) 12 mL Normal [facility] Comment on above: Performed By: #### L [id number] ####Machine Spreader: KELLY RODRIGES ([id number])[facility] RO [place] (SWRLAB)[address] [place] [address] SQUAMOUS EPITHELIAL CELLS (#/HPF) IN URINE SEDIMENT 3-5 Normal 3-5 [facility] Comment on above: Performed By: #### L [id number] ####Machine Spreader: KELLY RODRIGES ([id number])[facility] RO [place] (SWRLAB)[address] UROBILINOGEN (MG/DL) IN URINE Normal Normal Normal (0-1) [facility] Comment on above: Performed By: #### L [id number] ####Machine Spreader: KELLY RODRIGES ([id number])[facility] RITTMAN (SWRLAB)[address] WBC (LEUKOCYTE) (#/HPF) IN URINE SEDIMENT 0-2 Normal 0-5 [facility] Comment on above: Performed By: #### L [id number] ####Machine Spreader: KELLY RODRIGES ([id number])[facility]ITALJ[facility] ABELTMAN (SWRLAB)[address] [place] [address] ED Provider Noteon ED Provider Note EMERGENCY DEPARTMENT ENCOUNTER Pt Name: Socorro Gonsales Birthdate 1995 Date of evaluation: 01/10/2025 ED Provider: Natalia Mark DO CHIEF COMPLAINT Chief Complaint Patient presents with Abdominal Pain Right Side both quadrants HISTORY OF PRESENT ILLNESS (Location/Symptom, Timing/Onset, Context/Setting, Quality, Duration, Modifying Factors, Severity) Note limiting factors. I wore appropriate PPE for the entirety of this encounter. HPI Socorro Gonsales is a 29 y.o. who presents to the emergency department for right-sided abdominal pain. Patient endorses right-sided upper and lower abdominal pain with nausea and vomiting since 4 PM. She endorses episode of emesis around 7 PM x 2 endorsed may be some blood streaking. She states that pain initially started as dull is more sharp. She says it is somewhat similar to her history of gastroparesis and IBS constipation which has improved since gastroenterology put her on Linzess. Patient took Tylenol prior to arrival without improvement. She also has a history of pancreatitis and GERD and hiatal hernia. Abdominal surgical history includes tubal ligation, partial hysterectomy multiple exploratory laparotomies and lysis of adhesions cystoscopy, appendectomy, cholecystectomy. Patient endorses tolerating p.o. earlier today she denies any fevers travel out of foods trauma rash UTI symptomsconstipation diarrhea. Patient had a bowel movement at 7 PM which was normal. Nursing Notes were reviewed. Limitations to history: Outside historians: REVIEW OF SYSTEMS Review of Systems Pertinent positives and negatives as per HPI PAST MEDICAL HISTORY Medical History[1] SURGICAL HISTORY Surgical History[2] CURRENT MEDICATIONS Previous Medications ACETAMINOPHEN EXTRA STRENGTH 500 MG TABLET Take 1,000 mg by mouth every 6 hours as needed. ALBUTEROL 108 (90 BASE) MCG/ACT INHALER Inhale 2 puffs every 6 hours as needed. FLUTICASONE (FLONASE) 50 MCG/ACT NASAL SPRAY 2 sprays in the morning. LINACLOTIDE (LINZESS) 145 MCG CAPSULE Take 1 capsule (145 mcg) by mouth every morning (before breakfast). Do not crush or chew. ALLERGIES Keflex [cephalexin], Morphine, Ondansetron, Seasonal ic [octacosanol], Codeine, Gabapentin, and Latex FAMILY HISTORY Family History[3] SOCIAL HISTORY Social History[4] PHYSICAL EXAM ED Triage Vitals [01/10/25 2102] Temp Heart Rate Resp BP 36.6 ?C (97.8 ?F) 73 20 107/71 SpO2 Temp Source Heart Rate Source Patient Position 100 % Oral Monitor Lying BP Location FiO2 (%) Right arm -- Physical Exam Vitals and nursing note reviewed. Constitutional: General: She is awake. She is not in acute distress. Appearance: She is not toxic-appearing. HENT: Head: Normocephalic and atraumatic. Mouth/Throat: Pharynx: Oropharynx is clear. Eyes: General: No scleral icterus. Pupils: Pupils are equal, round, and reactive to light. Cardiovascular: Rate and Rhythm: Normal rate and regular rhythm. Pulmonary: Effort: Pulmonary effort is normal. No respiratory distress. Breath sounds: Normal breath sounds. Abdominal: General: Bowel sounds are normal. Palpations: Abdomen is soft. Tenderness: There is abdominal tenderness in the right upper quadrant and right lower quadrant. There is no right CVA tenderness, left CVA tenderness, guarding or rebound. Musculoskeletal: General: Normal range of motion. Skin: General: Skin is warm and dry. Neurological: General: No focal deficit present. Mental Status: She is alert and oriented to person, place, and time. Psychiatric: Mood and Affect: Mood normal. Behavior: Behavior normal. DIAGNOSTIC RESULTS RADIOLOGY (Per Emergency Physician): Interpretation per the Radiologist below, if available at the time of this note: No orders to display LABS: Labs Reviewed COMPLETE URINALYSIS WITH REFLEX TO CULTURE - Abnormal Result Value Color, Urine Light Yellow Clarity, Urine Turbid (*) pH, Urine 7.5 Leukocytes, Urine Negative Nitrite, Urine Negative Protein, Urine 10 (*) Glucose, Urine Normal Bilirubin, Urine Negative Ketones, Urine Negative Urobilinogen, Urine Normal Blood, Urine Negative Volume, Urine 12 mL RBC, Urine 0-2 WBC, Urine 0-2 Squamous Epithelial, Urine 3-5 Bacteria, Urine Few (*) Mucus, Urine Moderate (*) Amorphous Phosphates, Urine Many (*) SPECIFIC GRAVITY OF URINE (NUMERIC) 1.031 (*) Narrative: A specimen with <=10 WBC is not consistent with inflammation. This specimen will not reflex to a urine culture. BASIC METABOLIC PANEL - Abnormal SODIUM 141 POTASSIUM 4.2 CHLORIDE 112 (*) CARBON DIOXIDE 20 (*) UREA NITROGEN 13 CREATININE 0.78 GLUCOSE 86 CALCIUM 9.1 ANION GAP 9 eGFR >90.0 CBC WITH AUTO DIFFERENTIAL - Normal Auto WBC 7.3 RBC 4.34 Hemoglobin 13.5 Hematocrit 38.9 MCV 89.6 MCH 31.1 MCHC 34.7 RDW 12.5 Platelets 330 MPV 9.7 nRBC 0.0 Neutrop (more content not included)... Normal [facility] HEPATIC FUNCTION PANELon Albumin [Mass/Vol] 4.3 g/dL Normal 3.5-5.0 [facility] Comment on above: Performed By: #### L [id number], LAB20, LAB99 ####Machine Spreader: KELLY RODRIGES ([id number])[facility] ([address] ALP [Catalytic activity/Vol] 54 U/L Normal 40-150 [facility] Comment on above: Performed By: #### L AB15, LAB20, LAB99 ####Machine Spreader: KELLY RODRIGES ([id number])[facility] HOLLOWAYJIA RITTMAN (SWRLAB)[address] [place] [address] [place] ALT [Catalytic activity/Vol] 15 U/L Normal <30 [facility] Comment on above: Performed By: #### L AB15, LAB20, LAB99 ####Machine Spreader: KELLY RODRIGES ([id number])[facility] JIA RITTMAN (SWRLAB)[address] [place] [address] [place] AST [Catalytic activity/Vol] 29 U/L Normal <34 [facility] Comment on above: Result Comment: TC Potential interference from hemolysis Performed By: #### L AB15, LAB20, LAB99 ####Machine Spreader: KELLY RODRIGES ([id number])[facility] JIA RITTMAN (SWRLAB)[address] [place] [address] [place] Bilirubin [Mass/Vol] 0.4 mg/dL Normal <1.2 [facility] Comment on above: Performed By: #### L AB15, LAB20, LAB99 ####Machine Spreader: KELLY RODRIGES ([id number])[facility] JIA RITTMAN (SWRLAB)[address] [place] [address] [place] Bilirubin.indirect [Mass/Vol] 0.1 mg/dL Normal <0.5 [facility] Comment on above: Result Comment: TC Significant interference from hemolysis. Result integrity compromised. Interpret with caution. Performed By: #### L AB15, LAB20, LAB99 ####Machine Spreader: KELLY RODRIGES ([id number])[facility] JIA RITTMAN (SWRLAB)[address] [place] [address] [place] Protein [Mass/Vol] 8.0 g/dL Normal 6.4-8.3 [facility] Comment on above: Result Comment: Seru m protein values are higher than plasma values. Samples from recumbent persons are lower by up to 0.5 g/dL as compared to ambulatory persons. After 60 years values are lower by up to 0.2 g/dL. Performed By: #### L AB15, LAB20, LAB99 ####Machine Spreader: KELLY RODRIGES ([id number])[facility] ELOAN (SWRLAB)[address] Hepatic function 2000 panelo n 01-10-2025 Albumin [Mass/Vol] 4.3 g/dL 3.5 - 5.0 g/dL [facility] ALP [Catalytic activity/Vol] 54 U/L 40 - 150 U/L ALT [Catalytic activity/Vol] 15 U/L NINF - 30 U/L AST [Catalytic activity/Vol] 29 U/L [facility] U/L Comment on above: TC Potential interference from hemolysis Bilirubin [Mass/Vol] 0.4 mg/dL [facility] - 1.2 mg/dL Bilirubin.conjugated [Mass/Vol] 0.1 mg/dL [facility] - 0.5 mg/dL Comment on above: TC Significant interference from hemolysis. Result integrity compromised. Interpret with caution. Protein [Mass/Vol] 8 g/dL 6.4 - 8.3 g/dL [facility] Comment on above: Serum protein values are higher than plasma values. Samples from recumbent persons are lower by up to 0.5 g/dL as compared to ambulatory persons. After 60 years values are lower by up to 0.2 g/dL. LACTIC ACID WITH REFLEXon Lactate [Moles/Vol] 0.8 mmol/L Normal 0.5-2.2 [facility] Comment on above: Performed By: #### Eugene [id number] ####Machine Spreader: KELLY RODRIGES ([id number])[facility] GASCAAN (SWRLAB)[address] LIPASEon 01-10-2025 Lipase [Catalytic activity/Vol] 54 U/L Normal <55 [facility] Comment on above: Performed By: #### L AB15, LAB20, LAB99 ####Machine Spreader: KELLY RODRIGES ([id number])[facility] ABELAN (SWRLAB)[address] [place] [address] Laboratory - Chemistry and C hemistry - challengeon 01-10-2025 Lipase [Catalytic activity/Vol] 54 U/L NINF - 55 U/L Lactate [Moles/Vol] 0.8 mmol/L 0.5 - 2. 2 mmol/L No Panel Informationon 01-10 Interpretation and review of laboratory results Normal [facility] Interpretation and review of laboratory results Normal [facility] Urinalysis complete panel (U )Ordered By: Leno Daily on 01-10-2025 Amorphous Phosphates, Urine Many Abnormal Negative /HPF Bacteria LM.HPF (Urine sed) [#/Area] Few Abnormal Negative /HPF Bilirubin Ql (U) Negative Negative mg/dL [facility] Clarity (U) Turbid Abnormal Clear Color (U) Light Yellow Lt. Yellow Epithelial cells.squamous LM.HPF (Urine sed) [#/Area] 3-5 Glucose Ql (U) Normal Normal (<70) mg/dL Hemoglobin Ql (U) Negative Negative mg/dL [facility] Interpretation and review of laboratory results Abnormal Ketones (U) [Mass/Vol] Negative Negative mg/dL Leukocyte esterase Test strip Ql (U) Negative Negative Reyes/uL Mucus LM.HPF (Urine sed) [#/Area] Moderate Abnormal Negative /LPF Nitrite Ql (U) Negative Negative pH (U) 7.5 [pH] 5.0 - 8.0 pH Protein (U) [Mass/Vol] 10 mg/dL Abnormal Negative RBC LM.HPF (Urine sed) [#/Area] 0-2 Specific gravity (U) [Rel density] 1.031 High 1.005 - 1.030 Urobilinogen (U) [Mass/Vol] Normal Normal (0-1) mg/dL Volume, Urine 12 mL WBC LM.HPF (Urine sed) [#/Area] 0-2 A specimen with <=10 WBC is not consistent with inflammation. This specimen will not reflex to a urine culture. [facility] 36on 12-27-2024 36 Notified pt. Normal System [facility] 36 ----- Message from Scooter Gunderson PA-C sent at 12/26/2024 4:15 PM EDT ----- Celiac panel negative ----- Message ----- From: [email or web address] Automated Rosi Andres Sent: 12/26/2024 4:08 PM EDT To: Scooter Gunderson PA-C Normal [facility] Office Visiton 12-27-2024 Follow-up visit [id number] Socorro Gonsales Maribell 1995 F Date Provider Department Center 12/27/2024 [id number] DE LOS SANTOS [facility] None Family History Problem Relation Age of Onset Other Mother Comments: Good pastures synd 07/31 fall with ICH, on Dialysis age 48 Kidney failure Mother Seizures Mother Hypertension Mother No Known Problems Father Comments: no contact with No Known Problems Sister No Known Problems Brother Family Status - Relation Status Age at Mother Father Alive Sister Alive Brother Alive Level of Service:80183 OR OFFICE/OUTPATIENT ESTABLISHED MOD MDM 30 MIN Reason for Visit and Comments: Follow-up [026545] - FU Left breast pain, US 12/26 Normal [facility] BI US BREAST LIMITED LEFTon 12-26-2024 BI US BREAST LIMITED LEFT This is a summary report. The complete report is available in the patient's medical record. If you cannot access the medical record, please contact the sending organization for a detailed fax or copy. Patient Name: SOCORRO GONSALES : 1995 Exam Date/Time: 12/26/2024 06:58 Procedure: BI US BREAST LIMITED LEFT Ordering Provider: DE LOS SANTOS KYLE Reason For Exam: This exam was performed at [facility] [address] [place] [id number] PATIENT CANCER HISTORY: No Personal History of Cancer FAMILY CANCER HISTORY: No Family History of Cancer BREAST ULTRASOUND: COMPARISON: Bilateral ultrasound 04/19/2023 FINDINGS: The patient presents for evaluation of focal pain within the lower outer quadrant of the left breast. No mass or focal sonographic abnormality is seen within the left breast from 3-4 o'clock, 5 cm from the nipple and at 5:30, 6 cm from the nipple to correlate with the patient's pain. IMPRESSION: No sonographic abnormality is seen within the left breast at 3-4 o'clock, 5 cm from the nipple and at 5:30, 6 cm from the nipple to correlate with the patient's pain. Clinical correlation and follow-up are recommended. ASSESSMENT: Category 1 Negative RECOMMENDATION: Clinical correlation Left Routine screening at age 40 Bilateral CANCER RISK ASSESSMENT: This risk assessment is based on patient provided information collected in a risk survey taken at the time of this examination. LIFETIME BREAST CANCER RISK: Luana 8: 11.07% - If greater than or equal to 20%, consider annual mammogram and annual screening Breast MRI or follow up in high risk clinic. Is the patient at elevated risk based on the HBOC criteria? No (Hereditary Breast and Ovarian Cancer) - If Yes, consider genetic counseling and testing with high risk follow up Is the patient at elevated risk based on the Agrawal Syndrome criteria? No - If Yes, consider genetic counseling and testing with high risk follow up. Report Dictated on Electronically Signed By: Allie Mccoy DO Electronically Signed Date/Time: 12/26/2024 7:32 AM EDT CRASRVIDCRA Scale Balancer ID: [id number] CRAREQIDCRA Request ID: [id number] Normal [facility] CELIAC PANELon 12-26-2024 GLIADIN IGA ANTIBODIES 1.1 U/ml Normal <15.0 [facility] Comment on above: Performed By: #### L [id number] ####Machine Spreader: KELLY RODRIGES ([id number])[address] GLIADIN IGG SERUM <0.4 Normal <15.0 [facility] Comment on above: Result Comment: ESTHER Reyna COMMENTS: TTG Interpretive Information: Results of 15 Units/mL or greater = POSITIVE Results Less than 15 Units/mL = NEGATIVE Deam Gliadin Peptide Interpretive Information: Results of 15 Units/mL or greater = POSITIVE Results Less than 15 Units/mL = NEGATIVE Performed By: #### L [id number] ####Machine Spreader: KELLY RODRIGES ([id number])[place] [address] [place] TISSUE TRANSGLUTAMINASE, IGA <0.5 Normal <15.0 [facility] Comment on above: Performed By: #### L [id number] ####Machine Spreader: KELLY RODRIGES ([id number])[facility] ([facility])[address] [place] [address] TISSUE TRANSGLUTAMINASE, IGG <0.8 Normal <15.0 [facility] Comment on above: Performed By: #### L [id number] ####Machine Spreader: KELLY RODRIGES ([id number])[facility] ([facility])[address] [place] [address] Celiac PanelOrdered By: Emma Duong on 12-26-2024 Deam Gliadin Peptide IgA 1.1 U/ml NINF - 15.0 U/ml Gliadin IgG IA Qn (S) U/ml NINF - 15.0 U/ml Interpretation and review of laboratory results Normal tTG IgA IA Qn (S) U/mL NINF - 15. 0 U/mL tTG IgA IA Qn (S) U/mL NINF - 15. 0 U/mL TTG Interpretive Information: Results of 15 Units/mL or greater = POSITIVE Results Less than 15 Units/mL = NEGATIVE Deam Gliadin Peptide Interpretive Information: Results of 15 Units/mL or greater = POSITIVE Results Less than 15 Units/mL = NEGATIVE [facility] Progress Noteon 12-26-2024 Progress Note Negative Normal [facility] US Breast - left limitedon 0 12-26-2024 No sonographic abnormality is seen within the left breast at 3-4 o'clock, 5 cm from the nipple and at 5:30, 6 cm from the nipple to correlate with the patient's pain. Clinical correlation and follow-up are recommended. ASSESSMENT: Category 1 Negative RECOMMENDATION: Clinical correlation Left Routine screening at age 40 Bilateral CANCER RISK ASSESSMENT: This risk assessment is based on patient provided information collected in a risk survey taken at the time of this examination. LIFETIME BREAST CANCER RISK: Luana 8: 11.07% - If greater than or equal to 20%, consider annual mammogram and annual screening Breast MRI or follow up in high risk clinic. Is the patient at elevated risk based on the HBOC criteria? No (Hereditary Breast and Ovarian Cancer) - If Yes, consider genetic counseling and testing with high risk follow up Is the patient at elevated risk based on the Agrawal Syndrome criteria? No - If Yes, consider genetic counseling and testing with high risk follow up. Report Dictated on Electronically Signed By: Allie Mccoy DO Electronically Signed Date/Time: 12/26/2024 7:32 AM EDT [facility] Patient Name: SOCORRO ORELLANA : 1995 Exam Date/Time: 12/26/2024 06:58 Procedure: BI US BREAST LIMITED LEFT Ordering Provider: DE LOS SANTOS KYLE Reason For Exam: This exam was performed at [facility] [place] [address] PATIENT CANCER HISTORY: No Personal History of Cancer FAMILY CANCER HISTORY: No Family History of Cancer BREAST ULTRASOUND: COMPARISON: Bilateral ultrasound 04/19/2023 FINDINGS: The patient presents for evaluation of focal pain within the lower outer quadrant of the left breast. No mass or focal sonographic abnormality is seen within the left breast from 3-4 o'clock, 5 cm from the nipple and at 5:30, 6 cm from the nipple to correlate with the patient's pain. [facility] Allie Mccoy DO - 12/26/2024 Patient Name: SOCORRO GONSALES : 1995 Exam Date/Time: 12/26/2024 06:58 Procedure: BI US BREAST LIMITED LEFT Ordering Provider: DE LOS SANTOS KYLE Reason For Exam: This exam was performed at [facility] [address] [place] [address] [address] [facility] [address] PATIENT CANCER HISTORY: No Personal History of Cancer FAMILY CANCER HISTORY: No Family History of Cancer BREAST ULTRASOUND: COMPARISON: Bilateral ultrasound 04/19/2023 FINDINGS: The patient presents for evaluation of focal pain within the lower outer quadrant of the left breast. No mass or focal sonographic abnormality is seen within the left breast from 3-4 o'clock, 5 cm from the nipple and at 5:30, 6 cm from the nipple to correlate with the patient's pain. IMPRESSION: No sonographic abnormality is seen within the left breast at 3-4 o'clock, 5 cm from the nipple and at 5:30, 6 cm from the nipple to correlate with the patient's pain. Clinical correlation and follow-up are recommended. ASSESSMENT: Category 1 Negative RECOMMENDATION: Clinical correlation Left Routine screening at age 40 Bilateral CANCER RISK ASSESSMENT: This risk assessment is based on patient provided information collected in a risk survey taken at the time of this examination. LIFETIME BREAST CANCER RISK: Luana 8: 11.07% - If greater than or equal to 20%, consider annual mammogram and annual screening Breast MRI or follow up in high risk clinic. Is the patient at elevated risk based on the HBOC criteria? No (Hereditary Breast and Ovarian Cancer) - If Yes, consider genetic counseling and testing with high risk follow up Is the patient at elevated risk based on the Agrawal Syndrome criteria? No - If Yes, consider genetic counseling and testing with high risk follow up. Report Dictated on Electronically Signed By: Allie Mccoy, Electronically Signed Date/Time: 12/26/2024 7:32 AM EDT Radiology Study observation (narrative) US Breast - left limitedOrde red By: Allie Mccoy on 12-26-2024 [facility] Work Phone: 36on 12-15-2024 36 Left voicemail to reschedule due to staffing. Normal [facility] 2911-24-2024 29 Addended by: GLENN SMITH on: 12/26/2024 08:28 AM Modules accepted: Orders Normal [facility] 3711-24-2024 37 --Please call office with any questions or concerns! [phone] --Obtain additional blood work for further evaluation of the symptoms. --Begin medication (Linzess 145 mcg). --Please see handout provided regarding additional recommendations/nformati on for the symptoms including when to seek emergency care or further treatment. --Follow-up with PCP, and in GI clinic in about 1 month following the above evaluation and recommendations. Normal [facility] Office Visiton 11-24-2024 Follow-up visit [id number] IldaSocorro Reyna 1995 F Date Provider Department Center 11/24/2024 9[facility] None Family History Problem Relation Age of Onset Other Mother Comments: Good pastures synd 07/31 fall with ICH, on Dialysis age 48 Kidney failure Mother Seizures Mother Hypertension Mother No Known Problems Father Comments: no contact with No Known Problems Sister No Known Problems Brother Family Status - Relation Status Age at Mother Father Alive Sister Alive Brother Alive Level of Service:06784 OR OFFICE/OUTPATIENT ESTABLISHED MOD MDM 30 MIN Reason for Visit and Comments: Follow-up [155386] Normal [facility] Progress Noteon 11-24-2024 Progress Note [facility] [address] [facility] [address] Dept: [phone] Dept Loc: [phone] Visit type: Established Reason for Visit: Follow-up Assessment and Plan Problem List Items Addressed This Visit Gastroparesis - Primary Other Visit Diagnoses History of esophagogastroduodenosco py (EGD) History of colonoscopy Alternating constipation and diarrhea Relevant Orders Celiac Panel S/P cholecystectomy Chronic idiopathic constipation Relevant Medications linaCLOtide (Linzess) 145 MCG capsule -Symptoms are acute on chronic. 4 hour GES shows delayed motility, unclear etiology. -Referred to Dr. Gonzáles for further evaluation of gastroparesis. Completed referral to [facility] and has established with their gastroparesis interdisciplinary clinic. Symptoms are controlled primarily with dietary medications and gastroparesis clinic did not advise to start Rx due to side effects. -Continue Gastroparesis diet, has seen dietitian. -Socorro had concerns about celiac, will order serology. -Also has [facility], has had colonoscopy completed in 2019 with ?microscopic colitis as and is also s/p stas so would be more prone to diarrhea. Is taking Miralax 17 g BID, MoM PRN, Senna PRN, and Dulcolax PRN with little relief. Will start Linzess 145 mcg daily. -She is also s/p multiple abdominal surgery with lysis of adhesions. This may be a component of her abdominal pain. -Follow up in 3 months. Follow up in about 3 months (around 02/23/2025) for Next scheduled follow-up. Advised patient to call office with new or worsening symptoms, questions, or concerns. Patient verbalized understanding and agreement of plan. Richardson Quintanilla is a 29 y.o. female who presents as a follow up. She was referred by Dr. Jean Odonnell DO regarding Abdominal pain, epigastric. Has been evaluated in the office before. Last office visit was 05/02/2021 with Naty Moran PA-C regarding generalized abdominal pain; nausea and vomiting; Lymphocytic colitis. HPI Feels like her gastroparesis symptoms are controlled with diet. Is following with gastroparesis clinic at [facility]. Main concern is constipation. Is having days with BM. Is taking Miralax 17 g BID and other OTC laxatives to assist. S/p 05/04/2022 with Total Laparoscopic Hysterectomy, Cystoscopy. S/p Laparoscopy lysis of adhesions and laparoscopic appendectomy 03/26/2021. S/p cholecystectomy 2018-. S/p tubal ligation 2017. EtOH: None. Tobacco: Vape. NSAIDs: Rarely PRN. Illicit drugs: None. Family History of Colon Cancer: None. Prior EGD/Colonoscopy: EGD 2020. Colonoscopy 2019. Prior Abdominal Surgery: Multiple as in HPI. Review of Systems Constitutional: Negative for appetite change, fatigue, fever and unexpected weight change. HENT: Negative for trouble swallowing. Respiratory: Negative for cough, choking and shortness of breath. Cardiovascular: Negative for chest pain. Gastrointestinal: Positive for abdominal pain and constipation. Negative for abdominal distention, anal bleeding, blood in stool, diarrhea, nausea, rectal pain and vomiting. Skin: Negative for color change, pallor and rash. Allergies Allergen Reactions Keflex [Cephalexin] Nausea And Vomiting Morphine Ondansetron Itching Itching and redness in arm when given Zofran IV Seasonal Ic [Octacosanol] Codeine Itching and Rash Gabapentin Other [place] like Heart was racing [place] like Heart was racing Latex Itching, Rash and Hives Other reaction(s): Hives Outpatient Medications Prior to Visit Medication Sig Dispense Refill Acetaminophen Extra Strength 500 MG tablet Take 1,000 mg by mouth every 6 hours as needed. albuterol 108 (90 Base) MCG/ACT inhaler Inhale 2 puffs every 6 hours as needed. fluticasone (Flonase) 50 MCG/ACT nasal spray 2 sprays in the morning. No facility-administered medications prior to visit. Patient Active Problem List Diagnosis Date Noted Date Diagnosed Engages in vaping Priority: Medium Hiatal hernia with gastroesophageal reflux Priority: Medium Gastroparesis 11/29/2023 Priority: Medium Chronic constipation 07/27/2019 YVONNE (generalized anxiety disorder) 07/27/2019 PFO (patent foramen ovale) 05/14/2019 Asthma 03/05/2017 Allergic rhinitis 03/05/2017 Social History Tobacco Use Smoking status: Former Types: Cigarettes Smokeless tobacco: Former Tobacco comments: Vape Use Substance Use Topics Alcohol use: Yes Comment: social Family History Problem Relation Name Age of Onset Other Mother Ramya mcmullen Good pastures synd 07/31 fall with ICH, on Dialysis age 48 Kidney failure Mother summer Seizures Mother summer Hypertension Mother summer No Known Problems Father no contact with No Known Problems Sister Odilia No Known Problems Brother Charisse Objective BP 100/63 Pulse 89 Temp 36.7 ?C (more content not included)... [facility] 36on 11-09-2024 36 Name of Caller: Socorro Contact Reason for Appointment: Patient states that they were just in the ER and the ER doctor wanted them to get in to see Dr. Sachin LIM due to pain under their breasts. Patient is expressing urgency and states that the ER doctor scared them as they seemed very concerned and they would like to receive a call back RAPHAEL. Please advise. Office Name: General Surgery Medication Refills need, if any: N/A Medication Name: N/A [facility] Office Visiton 11-09-2024 Follow-up visit [id number] Socorro Gonsales 1995 F Date Provider Department Center 11/09/2024 [id number] None Family History Problem Relation Age of Onset Other Mother Comments: Good pastures synd 07/31 fall with ICH, on Dialysis age 48 Kidney failure Mother Seizures Mother Hypertension Mother No Known Problems Father Comments: no contact with No Known Problems Sister No Known Problems Brother Family Status - Relation Status Age at Mother Father Alive Sister Alive Brother Alive Level of Service:98349 OR OFFICE/OUTPATIENT ESTABLISHED MOD MDM 30 MIN Reason for Visit and Comments: Breast Problem [16] - Est Pt. Left breast pain. [place] ER Referral Normal [facility] BASIC METABOLIC PANELon 04-0 Anion gap [Moles/Vol] 8 mmol/L Normal 3-13 [facility] Comment on above: Performed By: #### L AB15 ####Machine Spreader: KELLY RODRIGES ([id number])[facility]ITALParr[facility] RO RITTMAN (SWRLAB)[address] [place] [address] Calcium [Mass/Vol] 10.0 mg/dL Normal 8.4-10.2 [facility] Comment on above: Performed By: #### L AB15 ####Machine Spreader: KELLY RODRIGES ([id number])[facility] HOLLOWAYJIA RITTMAN (SWRLAB)[address] Chloride [Moles/Vol] 107 mmol/L Normal 98-107 [facility] Comment on above: Performed By: #### L AB15 ####Machine Spreader: KELLY RODRIGES ([id number])[facility] HOLLOWAYJIA RITTMAN (SWRLAB)[address] [place] [address] [place] CO2 [Moles/Vol] 23 mmol/L Normal 22-29 [facility] Comment on above: Performed By: #### L AB15 ####Machine Spreader: KELLY RODRIGES ([id number])[facility] RO RITTMAN (SWRLAB)[address] Creatinine [Mass/Vol] 0.82 mg/dL Normal 0.57-1.11 [facility] Comment on above: Performed By: #### L AB15 ####Machine Spreader: KELLY RODRIGES ([id number])[facility] HOLLOWAYJIA RITTMAN (SWRLAB)[address] [place] [address] GLOMERULAR FILTRATION RATE ML/MIN/1.73 SQ M.PREDICTED >90.0 Normal >60.0 [facility] Comment on above: Result Comment: Calc ulation based on the Chronic Kidney Disease Epidemiology Collaboration (CKD-EPI) equation refit without adjustment for race Performed By: #### L AB15 ####Machine Spreader: KELLY RODRIGES ([id number])[facility] RO RITTMAN (SWRLAB)[address] Glucose [Mass/Vol] 79 mg/dL Normal 74-100 [facility] Comment on above: Performed By: #### L AB15 ####Machine Spreader: KELLY RODRIGES ([id number])[facility]ITAL[facility] RO RITTMAN (SWRLAB)[address] Potassium [Moles/Vol] 4.8 mmol/L Normal 3.5-5.1 [facility] Comment on above: Result Comment: [facility] potassium values may be up to 0.5 mmol/L lower than serum values. Performed By: #### L AB15 ####Machine Spreader: KELLY RODRIGES ([id number])[facility] RO RITTMAN (SWRLAB)[address] Sodium [Moles/Vol] 138 mmol/L Normal 136-145 [facility] Comment on above: Performed By: #### L AB15 ####Machine Spreader: KELLY RODRIGES ([id number])[facility] RO RITTMAN (SWRLAB)[address] Urea nitrogen [Mass/Vol] 12 mg/dL Normal 8-21 [facility] Comment on above: Performed By: #### L AB15 ####Machine Spreader: KELLY RODRIGES ([id number])[facility] RO RITTMAN (SWRLAB)[address] Basic metabolic 1998 panelon 11-08-2024 Anion gap [Moles/Vol] 8 mmol/L 3 - 13 mmol/L Calcium [Mass/Vol] 10 mg/dL 8.4 - 10. 2 mg/dL Chloride [Moles/Vol] 107 mmol/L 98 - 10 7 mmol/L CO2 [Moles/Vol] 23 mmol/L 22 - 29 mmol/L Creatinine [Mass/Vol] 0.82 mg/dL 0.57 - 1.11 mg/dL GFR/1.73 sq M.predicted (S/P/Bld) [Vol rate/Area] - PINF Comment on above: Calculation based on the Chronic Kidney Disease Epidemiology Collaboration (CKD-EPI) equation refit without adjustment for race Glucose [Mass/Vol] 79 mg/dL 74 - 100 mg/dL [facility] Interpretation and review of laboratory results Normal Potassium [Moles/Vol] 4.8 mmol/L 3.5 - 5.1 mmol/L Comment on above: Plasma potassium shira ues may be up to 0.5 mmol/L lower than serum values. Sodium [Moles/Vol] 138 mmol/L 136 - 145 mmol/L Urea nitrogen [Mass/Vol] 12 mg/dL 8 - 21 mg/dL [facility] CBC (HEMOGRAM)on 11-08-2024 Erythrocyte distribution width (RBC) [Ratio] 12.9 % Normal 11.5-15.0 [facility] Comment on above: Performed By: #### L [id number] ####Machine Spreader: KELLY RODRIGES ([id number])[facility] JIA RITTMAN (SWRLAB)[address] [place] [address] Hematocrit (Bld) [Volume fraction] 42.3 % Normal 35.0-47.0 [facility] Comment on above: Performed By: #### L AB294 ####Machine Spreader: KELLY RODRIGES ([id number])[facility] PawClinicTMAN (SWRLAB)[address] [place] [address] [place] Hemoglobin (Bld) [Mass/Vol] 14.4 g/dL Normal 11.7-16.0 [facility] Comment on above: Performed By: #### L AB294 ####Machine Spreader: KELLY RODRIGES ([id number])[facility] JIA RITTMAN (SWRLAB)[address] MCH (RBC) [Entitic mass] 31.2 pg Normal 26.0-34.0 [facility] Comment on above: Performed By: #### L AB294 ####Machine Spreader: KELLY RODRIGES ([id number])[facility]ITAL[facility] ROMANTMAN (SWRLAB)[address] MCHC 34.0 % Normal 30.5-36.0 [facility] Comment on above: Performed By: #### L AB294 ####Machine Spreader: KELLY RODRIGES ([id number])[facility]ITALP[facility] ROMANTMAN (SWRLAB)[address] [place] [address] MCV (RBC) [Entitic vol] 91.8 fL Normal 77.0-99.0 [facility] Comment on above: Performed By: #### L AB294 ####Machine Spreader: KELLY RODRIGES ([id number])[facility] ROMANTMAN (SWRLAB)[address] [place] [address] Platelet mean volume (Bld) [Entitic vol] 9.4 fL Normal 9.0-12.7 [facility] Comment on above: Result Comment: MPV is a calculated measurement using platelet volume ratio Performed By: #### L AB294 ####Machine Spreader: KELLY RODRIGES ([id number])[facility]ITAL[facility] ROMANTMAN (SWRLAB)[address] [place] [address] Platelets (Bld) [#/Vol] 337 10*3/uL Normal 140-440 [facility] Comment on above: Performed By: #### L AB294 ####Machine Spreader: KELLY RODRIGES ([id number])[facility] ROMANTMAN (SWRLAB)[address] [place] [address] RBC (Bld) [#/Vol] 4.61 10*6/uL Normal 3.80-5.20 [facility] Comment on above: Performed By: #### L AB294 ####Machine Spreader: KELLY RODRIGES ([id number])[facility] ABELAN (SWRLAB)[address] [place] [address] WBC (Bld) [#/Vol] 8.5 10*3/uL Normal 3.6-10.7 [facility] Comment on above: Performed By: #### L [id number] ####Machine Spreader: KELLY RODRIGES ([id number])[facility] ABELCARLOS (SWRLAB)[address] [place] [address] CBC panel Auto (Bld)on 11-08 Erythrocyte distribution width (RBC) [Ratio] 12.9 % 11.5 - 15.0 % Hematocrit (Bld) [Volume fraction] 42.3 % 35.0 - 47.0 % Hemoglobin (Bld) [Mass/Vol] 14.4 g/dL 11.7 - 16.0 g/dL Interpretation and review of laboratory results Normal MCH (RBC) [Entitic mass] 31.2 pg 26.0 - 34.0 pg MCHC (RBC) [Mass/Vol] 34 % 30.5 - 36.0 % MCV (RBC) [Entitic vol] 91.8 fL 77.0 - 99.0 fL Platelet mean volume (Bld) [Entitic vol] 9.4 fL 9.0 - 12.7 fL Comment on above: MPV is a calculated measurement using platelet volume ratio Platelets (Bld) [#/Vol] 337 10*3/uL 140 - 440 10*3/uL RBC (Bld) [#/Vol] 4.61 10*6/uL 3.80 - 5.2 0 10*6/uL WBC (Bld) [#/Vol] 8.5 10*3/uL 3.6 - 10.7 10*3/uL [facility] COMPLETE URINALYSISon 2024 BILIRUBIN, TOTAL PRESENCE IN URINE Negative Normal Negative [facility] Comment on above: Performed By: #### L [id number] ####Machine Spreader: KELLY RODRIGES ([id number])[facility]ITALA JIA RITTMAN (SWRLAB)[address] [place] [address] [place] Clarity (U) Clear Normal Clear [facility] Comment on above: Performed By: #### L AB347 ####Machine Spreader: KELLY RODRIGES ([id number])[facility] JIA RITTMAN (SWRLAB)[address] [place] [address] [place] Color (U) Light Yellow Normal Lt. Yellow [facility] Comment on above: Performed By: #### L [id number] ####Machine Spreader: KELLY RODRIGES ([id number])[facility] JIA RITTMAN (SWRLAB)[address] [place] [address] [place] GLUCOSE (MG/DL) IN URINE Normal Normal Normal (<70) [facility] Comment on above: Performed By: #### L AB347 ####Machine Spreader: KELLY RODRIGES ([id number])[facility] JIA RITTMAN (SWRLAB)[address] [place] [address] [place] HEMOGLOBIN PRESENCE IN URINE Negative Normal Negative [facility] Comment on above: Performed By: #### L [id number] ####Machine Spreader: KELLY RODRIGES ([id number])[facility] JIA RITTMAN (SWRLAB)[address] [place] [address] [place] Ketones Ql (U) Negative Normal Negative [facility] Comment on above: Performed By: #### L [id number] ####Machine Spreader: KELLY RODRIGES ([id number])[facility] JIA RITTMAN (SWRLAB)[address] [place] [address] [place] LEUKOCYTE ESTERASE PRESENCE IN URINE BY TEST STRIP Negative Normal Negative [facility] Comment on above: Performed By: #### L [id number] ####Machine Spreader: KELLY RODRIGES ([id number])[facility] JIA RITTMAN (SWRLAB)[address] [place] [address] [place] NITRITE PRESENCE IN URINE Negative Normal Negative [facility] Comment on above: Performed By: #### L [id number] ####Machine Spreader: KELLY RODRIGES ([id number])[facility] ROMANTMAN (SWRLAB)[address] [place] [address] pH (U) 7.0 [pH] Normal 5.0-8.0 [facility] Comment on above: Performed By: #### L [id number] ####Machine Spreader: KELLY RODRIGES ([id number])[facility]ITAL[facility] RO RITTMAN (SWRLAB)[address] [place] [address] Protein (U) [Mass/Vol] Negative Normal Negative [facility] Comment on above: Performed By: #### L [id number] ####Machine Spreader: KELLY RODRIGES ([id number])[facility] ROMANTMAN (SWRLAB)[address] [place] [address] Specific gravity (U) [Rel density] 1.019 Normal 1.005-1.030 [facility] Comment on above: Performed By: #### L [id number] ####Machine Spreader: KELLY RODRIGES ([id number])[facility] RO RITTMAN (SWRLAB)[address] [place] [address] UROBILINOGEN (MG/DL) IN URINE Normal Normal Normal (0-1) [facility] Comment on above: Performed By: #### L [id number] ####Machine Spreader: KELLY RODRIGES ([id number])[facility] ROMANTMAN (SWRLAB)[address] [place] [address] ED Nursing Noteon 11-08-2024 ED Nursing Note Pt to ER with compla int of left lower rib cage pain that wraps around to left flank and back area. Sudden onset noon today. Denies fever, chills, nausea, vomiting, diarrhea, urinary symptoms. States back pain worsens after she urinates. Pt ambulatory on arrival with steady gait. Alert and oriented x 4. Skin warm and dry. Respirations even and unlabored. Pt to bathroom for urine specimen collection. Call light in reach Normal [facility] ED Provider Noteon ED Provider Note EMERGENCY DEPARTMENT ENCOUNTER Pt Name: Socorro Gonsales Birthdate 1995 Date of evaluation: 11/08/2024 ED Provider: Reza Palomo DO CHIEF COMPLAINT Left flank pain HISTORY OF PRESENT ILLNESS HPI Socorro Gonsales is a 29 y.o. who presents to the emergency department with a chief complaint of left flank pain. Starts in left flank and radiates into the left upper quadrant of the abdomen. Ongoing for the past 6 hours. Started somewhat suddenly. Does note symptoms seem worse after she urinates but denies any hematuria. No fevers or chills. No nausea, vomiting, diarrhea. Patient does note multiple previous abdominal surgeries but most recent surgery was the hysterectomy in 2021. No recent travel. No diet or medication changes. No recent injury or trauma to the area as well. Nursing Notes were reviewed. REVIEW OF SYSTEMS Review of Systems Pertinent positives and negatives as per HPI PAST MEDICAL HISTORY Past Medical History: Diagnosis Date Asthma 2000 Engages in vaping Hiatal hernia with gastroesophageal reflux History of hysterectomy 2021 Pancreatitis 2019 ? accurate SURGICAL HISTORY Past Surgical History: Procedure Laterality Date ABDOMINAL ADHESION SURGERY 2020 and 2021 APPENDECTOMY 2020 CHOLECYSTECTOMY 2020 COLONOSCOPY 2019 CYSTOSCOPY EXPLORATORY LAPAROTOMY 2019 PARTIAL HYSTERECTOMY 2021 TUBAL LIGATION CURRENT MEDICATIONS Discharge Medication List as of 11/08/2024 7:48 PM CONTINUE these medications which have NOT CHANGED Details Acetaminophen Extra Strength 500 MG tablet Take 1,000 mg by mouth every 6 hours as needed., Starting 05/05/2022, Historical Med albuterol 108 (90 Base) MCG/ACT inhaler Inhale 2 puffs every 6 hours as needed., Starting 08/17/2020, Historical Med fluticasone (Flonase) 50 MCG/ACT nasal spray 2 sprays in the morning., Starting 07/04/2023, Historical Med ALLERGIES Keflex [cephalexin], Morphine, Ondansetron, Seasonal ic [octacosanol], Codeine, Gabapentin, and Latex FAMILY HISTORY Family History Problem Relation Name Age of Onset Other Mother Ramya summer Good pastures synd 07/31 fall with ICH, on Dialysis age 48 Kidney failure Mother summer Seizures Mother summer Hypertension Mother summer No Known Problems Father no contact with No Known Problems Sister Odilia No Known Problems Brother Charisse SOCIAL HISTORY Social History Socioeconomic History Marital status: Significant Other Tobacco Use Smoking status: Former Types: Cigarettes Smokeless tobacco: Former Tobacco comments: Vape Use Vaping Use Vaping status: Every Day Substances: Nicotine Substance and Sexual Activity Alcohol use: Yes Comment: social Drug use: Never Social History Narrative Single, engaged and living with Derek gómez. has one son Gonzalo born in 2016 and one dtr Iglesia born in 2018. VAPING, now with [facility], Diana- moving pts and in office. no ETOH excess. Stopped vaping 07/02 Social Drivers of Health Financial Resource Strain: Low Risk (06/20/2024) Overall Financial Resource Strain (CARDIA) Difficulty of Paying Living Expenses: Not hard at all Food Insecurity: No Food Insecurity (06/20/2024) Hunger Vital Sign Worried About Running Out of Food in the Last Year: Never true Ran Out of Food in the Last Year: Never true Transportation Needs: No Transportation Needs (06/20/2024) PRAPARE - Transportation Lack of Transportation (Medical): No Lack of Transportation (Non-Medical): No Physical Activity: Sufficiently Active (06/20/2024) Exercise Vital Sign Days of Exercise per Week: 5 days Minutes of Exercise per Session: 60 min Stress: No Stress Concern Present (06/20/2024) [employer] [place] [employer] - Occupational Stress Questionnaire Feeling of Stress : Not at all Social Connections: Moderately Isolated (06/20/2024) Social Connection and Isolation Panel [NHANES] Frequency of Communication with Friends and Family: More than three times a week Frequency of Social Gatherings with Friends and Family: More than three times a week Attends Restorationism Services: Never Active Member of Clubs or Organizations: No Attends Club or Organization Meetings: Never Marital Status: Living with partner Housing Stability: Low Risk (06/20/2024) Housing Stability Vital Sign Unable to Pay for Housing in the Last Year: No Number of Times Moved in the Last Year: 0 Homeless in the Last Year: No PHYSICAL EXAM ED Triage Vitals [11/08/24 1755] Temp Heart Rate Resp BP 36.8 ?C (98.2 ?F) 90 16 120/69 SpO2 Temp Source Heart Rate Source Patient Position 99 % Oral -- -- BP Location FiO2 (%) -- -- Physical Exam Vitals and nursing note reviewed. Constitutional: General: She is not in acute distress. Appearance: She is well-developed. HENT: Head: Normocephalic and atraumatic. Eyes: Conjunctiva/sclera: (more content not included)... Normal [facility] HCG QUALITATIVE URINEon Beta HCG ( test) Ql (U) Negative Normal Negative [facility] Comment on above: Result Comment: Elizabeth wong note: Very dilute urine specimens, as indicated by a low specific gravity, may not contain phlebotomy services representative levels of hCG. If is still suspected, a first morning urine specimen should be collected 48 hours later and tested. ORDER COMMENTS: is the most common reason for HCG in urine, although choriocarcinoma, hydatidiform mole, and certain nontrophoblastic malignancies also result in detectable urinary HCG levels. Sensitivity = 20mIU/mL. Performed By: #### L [id number] ####Machine Spreader: KELLY RODRIGES ([id number])[facility] ([facility] Laboratory - Chemistry and C hemistry - challengeOrdered By: Antonietta Basilio on 11-08-2024 Beta HCG ( test) Ql Negative Negative Comment on above: Please note: Very di lute urine specimens, as indicated by a low specific gravity, may not contain phlebotomy services representative levels of hCG. If is still suspected, a first morning urine specimen should be collected 48 hours later and tested. Beta HCG ( test) Ql (U) is the most common reason for HCG in urine, although choriocarcinoma, hydatidiform mole, and certain nontrophoblastic malignancies also result in detectable urinary HCG levels. Sensitivity = 20mIU/mL. No Panel InformationOrdered By: Antonietta Basilio on 11-08-2024 Urinalysis complete panel (U )on 11-08-2024 Bilirubin Ql (U) Negative Negative mg/dL [facility] Clarity (U) Clear Clear Color (U) Light Yellow Lt. Yellow Glucose Ql (U) Normal Normal (<70) mg/dL Hemoglobin Ql (U) Negative Negative mg/dL [facility] Interpretation and review of laboratory results Normal Ketones (U) [Mass/Vol] Negative Negative mg/dL Leukocyte esterase Test strip Ql (U) Negative Negative Reyes/uL Nitrite Ql (U) Negative Negative pH (U) 7.0 [pH] 5.0 - 8.0 pH Protein (U) [Mass/Vol] Negative Negative mg/dL Specific gravity (U) [Rel density] 1.019 1.005 - 1.030 Urobilinogen (U) [Mass/Vol] Normal Normal (0-1) mg/dL [facility] Progress Noteon 10-24-2024 Progress Note Chart reviewed of ED follow up Seen in [facility] ED on 10/21/24 Reason: Flu Symptoms Generalized Body Aches Nasal Congestion Discharge instructions: PATIENT REFERRED TO: Philippe Chua DO [address] [place] [address] [address] [facility] [address] Message: I am calling from Philippe Chua DO's office, following up after your recent ED visit. Please call the office at [phone] if your symptoms are worse and we can schedule a follow up appointment..Electronica lly signed by Shoshana Riddle LPN on 10/24/2024 at 2:18 PM If patient calls back, please assist with scheduling a ED follow up appointment. Normal [facility] CNOVon 10-21-2024 CNOV Office Visit (UCWSTR ) -------- SOCORRO GONSALES ([id number]) 1995 F Date Time Provider Department 10/21/24 12:00 PM MARVA STANLEY [facility] During your visit today, we recorded the following information about you: Temperature Pulse Respiration Blood pressure 99.5 degrees 111/minute 18/minute 105/71 Weight 65.1 kg Marva Stanley APRN.ENGINE DISPATCHER 10/21/2024 12:10 PM Signed Patient came in with complaints of left-sided flank pain. Patient says she spiked a fever before she got the pain. Patient is currently on Tylenol and has a temp of 99 5. Patient says it radiates and wraps around her stomach. Patient was extremely tender when I assessed her. At this time patient is being referred to the emergency room due to pain and fever. Patient was agreeable and will take her self. Allergies As of Date: 10/21/2024 Noted Allergy Reaction CODEINE 05/27/2017 2 - Rash 9 - Itching GABAPENTIN 02/23/2020 14 - Other: See Comments 16 - Unknown Comments: [place] like Heart was racing LATEX 05/27/2017 2 - Rash 9 - Itching OXYCODONE 08/01/2024 8 - GI Upset Comments: Vomiting, dizziness, headache SEASONAL ALLERGIES 11/28/2015 14 - Other: See Comments Comments: nasal congestion ZOFRAN (ONDANSETRON) 04/23/2020 9 - Itching Comments: Itching and redness in arm when given Zofran IV Date Reviewed: 10/21/2024 Reviewed by: Blair Garcia MA - Fully Assessed Reason for Visit: Cough [28] Cmt: Chest congestion, fever, skin burning x2 days Primary Visit Diagnosis:Flank pain [R10.9] Prescriptions as of 10/21/2024 - benzonatate (TESSALON PERLE) 100 mg capsule Take 1 capsule by mouth three times a day as needed. - traMADol (ULTRAM) 50 mg tablet Take 50-100 mg by mouth every 6 hours as needed. - albuterol HFA (PROVENTIL HFA, VENTOLIN HFA) 90 mcg/actuation inhaler Inhale 2 Puffs as instructed every 6 hours as needed for wheezing/shortness of breath. - fluticasone (FLONASE) 50 mcg/actuation nasal spray Use 2 Sprays in each nostril once daily. Rinse mouth after use. Problem List As Of Date 10/21/2024 Noted Resolved Late care [O09.30] 11/28/2015 06/03/2016 Family history of defect [Z82.79] 11/28/2015 06/03/2016 Encounter for supervision of other normal pregn*01/22/2016 06/03/2016 Poor social situation [Z60.9] 06/03/2016 04/29/2018 Short interval between pregnancies affecting pr*05/27/2017 03/04/2018 Tobacco use disorder complicating , ch*05/27/2017 05/03/2019 History of anxiety [Z86.59] 05/27/2017 Patient request for diagnostic testing [Z01.89] 05/27/2017 06/02/2017 with uncertain dates, antepartum [Z34*05/27/2017 03/04/2018 Positive GBS test [B95.1] 12/30/2017 03/04/2018 Encounter Status:Closed by MARVA STANLEY on 10/21/24 Normal [facility] COMPLETE URINALYSISon 2024 BACTERIA (#/HPF) IN URINE Moderate Abnormal Negative [facility] Comment on above: Performed By: #### L [id number] ####Machine Spreader: KELLY RODRIGES ([id number])[facility] JIA RITTMAN (SWRLAB)[address] [place] [address] BILIRUBIN, TOTAL PRESENCE IN URINE Negative Normal Negative [facility] Comment on above: Performed By: #### L [id number] ####Machine Spreader: KELLY RODRIGES ([id number])[facility] (SWRLAB)[address] [place] [address] Clarity (U) Clear Normal Clear [facility] Comment on above: Performed By: #### L [id number] ####Machine Spreader: KELLY RODRIGES ([id number])[facility] (SWRLAB)[address] [place] [address] Color (U) Yellow Normal Lt. Yellow [facility] Comment on above: Performed By: #### L [id number] ####Machine Spreader: KELLY RODRIGES ([id number])[facility] JIA RITTMAN (SWRLAB)[address] [place] [address] GLUCOSE (MG/DL) IN URINE Normal Normal Normal (<70) [facility] Comment on above: Performed By: #### L [id number] ####Machine Spreader: KELLY RODRIGES ([id number])[facility] (SWRLAB)[address] [place] [address] [place] HEMOGLOBIN PRESENCE IN URINE Negative Normal Negative [facility] Comment on above: Performed By: #### L [id number] ####Machine Spreader: KELLY RODRIGES ([id number])[facility] (SWRLAB)[address] [place] [address] [place] Ketones Ql (U) 10 mg/dL Abnormal Negative [facility] Comment on above: Performed By: #### L [id number] ####Machine Spreader: KELLY RODRIGES ([id number])[facility]ITAL[facility]arr[facility] (SWRLAB)[address] LEUKOCYTE ESTERASE PRESENCE IN URINE BY TEST STRIP Negative Normal Negative [facility] Comment on above: Performed By: #### L [id number] ####Machine Spreader: KELLY RODRIGES ([id number])[facility] (SWRLAB)[address] [place] [address] [place] MUCUS (#/LPF) IN URINE SEDIMENT Many Abnormal Negative [facility] Comment on above: Performed By: #### L [id number] ####Machine Spreader: KELLY RODRIGES ([id number])[facility] (SWRLAB)[address] NITRITE PRESENCE IN URINE Negative Normal Negative [facility] Comment on above: Performed By: #### L [id number] ####Machine Spreader: KELLY RODRIGES ([id number])[facility] (SWRLAB)[address] [place] [address] [place] pH (U) 6.0 [pH] Normal 5.0-8.0 [facility] Comment on above: Performed By: #### L [id number] ####Machine Spreader: KELLY RODRIGES ([id number])[facility] (SWRLAB)[address] [place] [address] [place] Protein (U) [Mass/Vol] 50 mg/dL Abnormal Negative [facility] Comment on above: Performed By: #### L [id number] ####Machine Spreader: KELLY RODRIGES ([id number])[facility] (SWRLAB)[address] [place] [address] [place] RBC (#/HPF) IN URINE SEDIMENT 0-2 Normal 0-2 [facility] Comment on above: Performed By: #### L [id number] ####Machine Spreader: KELLY RODRIGES ([id number])[facility] (SWRLAB)[address] [place] [address] Specific gravity (U) [Rel density] 1.037 High 1.005-1.030 [facility] Comment on above: Performed By: #### L [id number] ####Machine Spreader: KELLY RODRIGES ([id number])[facility] (SWRLAB)[address] [place] [address] Specimen volume (U) 12 mL Normal [facility] Comment on above: Performed By: #### L [id number] ####Machine Spreader: KELLY RODRIGES ([id number])[facility] (SWRLAB)[address] [place] [address] [place] SQUAMOUS EPITHELIAL CELLS (#/HPF) IN URINE SEDIMENT 6-10 Abnormal 3-5 [facility] Comment on above: Performed By: #### L [id number] ####Machine Spreader: KELLY RODRIGES ([id number])[facility]ITAL[facility] (SWRLAB)[address] [place] [address] [place] UROBILINOGEN (MG/DL) IN URINE Normal Normal Normal (0-1) [facility] Comment on above: Performed By: #### L [id number] ####Machine Spreader: KELLY RODRIGES ([id number])[facility]ITAL[facility] (SWRLAB)[address] [place] [address] [place] WBC (LEUKOCYTE) (#/HPF) IN URINE SEDIMENT 0-2 Normal 0-5 [facility] Comment on above: Performed By: #### L [id number] ####Machine Spreader: KELLY RODRIGES ([id number])[facility] ([facility])[address] [place] [address] ED Nursing Noteon 10-21-2024 ED Nursing Note Pt ambulatory to ED1 4 with c/o flu like s/s. Pt states all my skin feels like bad sunburn since last night. She also reports a fever last night, afebrile here. +cough/congestion/green sputum since . Pt just finished abx Wednesday for strep. Pt is A&Ox3, respirations even and unlabored, skin warm and dry, no distress noted. Pt states she went to [facility] and was told they could not treat her there. Normal [facility] ED Provider Noteon ED Provider Note Emergency Department Encounter Pt Name: Socorro Gonsales Birthdate 1995 Date of evaluation: 10/21/2024 Provider: Ashely Abdi MD CHIEF COMPLAINT Chief Complaint Patient presents with Flu Symptoms Generalized Body Aches Nasal Congestion HISTORY OF PRESENT ILLNESS HPI Socorro Gonsales is a 28 y.o. female with history that includes asthma, hysterectomy, presenting to the Emergency Department for evaluation of productive cough, fever of 101.2, nasal congestion, rhinorrhea, irritated throat for last couple days. Has also had left flank pain with no urinary symptoms and no GI symptoms. States that she went to urgent care to be evaluated today and was told that the provider there could not help her and she was directed to come to the emergency department. She has no history of IVDU, no numbness or weakness, no bowel or bladder change. Recently completed a course of antibiotics for strep throat and had returned back to normal. Nursing Notes were reviewed. Past Medical History: Diagnosis Date Asthma 2000 Engages in vaping Hiatal hernia with gastroesophageal reflux History of hysterectomy 2021 Pancreatitis 2019 ? accurate REVIEW OF SYSTEMS Several elements of the ROS reviewed and otherwise acutely negative except as in the HPI. PHYSICAL EXAM ED Triage Vitals Temp Heart Rate Resp BP 10/21/24 1251 10/21/24 1252 10/21/24 1252 10/21/24 1252 36.3 ?C (97.3 ?F) 107 16 (!) 96/46 SpO2 Temp Source Heart Rate Source Patient Position 10/21/24 1251 10/21/24 1251 -- -- 99 % Temporal BP Location FiO2 (%) -- -- Physical Exam Vitals and nursing note reviewed. Constitutional: General: She is not in acute distress. Appearance: She is well-developed. She is not ill-appearing. HENT: Head: Normocephalic and atraumatic. Nose: Congestion present. Mouth/Throat: Mouth: Mucous membranes are moist. Pharynx: No oropharyngeal exudate or posterior oropharyngeal erythema. Eyes: Conjunctiva/sclera: Conjunctivae normal. Cardiovascular: Rate and Rhythm: Normal rate and regular rhythm. Heart sounds: No murmur heard. Pulmonary: Effort: Pulmonary effort is normal. No respiratory distress. Breath sounds: Normal breath sounds. Abdominal: Palpations: Abdomen is soft. Tenderness: There is no abdominal tenderness. There is left CVA tenderness (minimal). There is no right CVA tenderness. Musculoskeletal: General: No swelling. Cervical back: Neck supple. Skin: General: Skin is warm and dry. Capillary Refill: Capillary refill takes less than 2 seconds. Neurological: Mental Status: She is alert. Comments: Strength 5/5 with bilateral shoulder extension and bilateral hip flexion. Sensation to light touch intact in bilateral upper and lower extremities. Psychiatric: Mood and Affect: Mood normal. EMERGENCY DEPARTMENT COURSE and DIFFERENTIAL DIAGNOSIS/MDM: Differential diagnoses include: Viral syndrome, UTI, less likely kidney stone. Workup was initiated with a COVID flu RSV swab and urinalysis. The urinalysis was not consistent with a UTI, and she tested positive for influenza which likely explains her symptoms. I considered obtaining CT abdomen pelvis without IV contrast to assess for possibility of kidney stone but I think this is quite unlikely. I think the flank pain is more related to myalgia from influenza. We will therefore plan for discharge but I instructed her to return to the ED if her flank pain worsens or if she develops new symptoms which she promises to do. ED course: ED Course as of 10/21/24 141 Sat Oct 21, 2024 1358 UA not consistent with UTI [AK] ED Course User Index [AK] Ashely Abdi MD Diagnoses as of 10/21/24 141 Influenza A Flank pain ED medications managed: She declined pain medications DISPOSITION/PLAN Discharge 10/21/2024 02:08:01 PM PATIENT REFERRED TO: Philippe Chua, [address] [facility] [address] Schedule an appointment as soon as possible for a visit in 1 week As needed Ashely Abdi MD Emergency Medicine Ashely Abdi MD 10/21/24 1415 Normal [facility] Laboratory - Microbiology an d Antimicrobial susceptibilityon 10-21-2024 FLUAV RNA ALLISON+probe Ql (Resp) Detected Abnormal Not Detected FLUBV RNA ALLISON+probe Ql (Resp) Not detected Not Detected RSV RNA ALLISON+probe Ql (Resp) Not detected Not Detected SARS-CoV-2 (COVID-19) RNA ALLISON+probe Ql (Resp) Not detected Not Detected SARS-CoV-2 (COVID-19) RNA ALLISON+probe Ql (Unsp spec) Methodology: real-time, RT-PCR The SARS-CoV-2, Flu A/B, and RSV Combo assay is intended for in vitro diagnostic use under the FDA Emergency Use Authorization (EUA). This test has not been FDA cleared or approved. In compliance with this authorization, please visit www.fda.gov/media/503471 /download or www.fda.gov/media/737360 /download to access the applicable information sheets. SARS-COV-2, FLU A/B, AND RSV COMBOon 10-21-2024 SARS-CoV-2 (COVID-19) RNA ALLISON+probe Ql (Unsp spec) SARS-COV-2 Reference Not Detected Not Detected RESPIRATORY SYNCYTIAL VIRUS Reference Not Detected Not Detected INFLUENZA A (CEPHEID) (A) Reference Detected Not Detected INFLUENZA B (CEPHEID) Reference Not Detected Not Detected ORDER COMMENTS: Methodology: real-time, RT-PCR The SARS-CoV-2, Flu A/B, and RSV Combo assay is intended for in vitro diagnostic use under the FDA Emergency Use Authorization (EUA). This test has not been FDA cleared or approved. In compliance with this authorization, please visit www.fda.gov/media/489945 /download or www.fda.gov/media/074202 /download to access the applicable information sheets. [facility] Comment on above: Performed By: #### L [id number] #### Machine Spreader: KELLY RODRIGES ([id number]) [facility] ([facility]) [address] [place] [address] SARS-CoV-2, Flu A/B, and RSV Comboon 10-21-2024 Interpretation and review of laboratory results Abnormal [facility] Urinalysis complete panel (U )Ordered By: Jose Deng on 10-21-2024 Bacteria LM.HPF (Urine sed) [#/Area] Moderate Abnormal Negative /HPF Bilirubin Ql (U) Negative Negative mg/dL [facility] Clarity (U) Clear Clear [facility] Color (U) Yellow Lt. Yellow Epithelial cells.squamous LM.HPF (Urine sed) [#/Area] 6-10 Abnormal Glucose Ql (U) Normal Normal (<70) mg/dL Hemoglobin Ql (U) Negative Negative mg/dL [facility] Interpretation and review of laboratory results Abnormal Ketones (U) [Mass/Vol] 10 mg/dL Abnormal Negative Leukocyte esterase Test strip Ql (U) Negative Negative Reyes/uL Mucus LM.HPF (Urine sed) [#/Area] Many Abnormal Negative /LPF Nitrite Ql (U) Negative Negative pH (U) 6.0 [pH] 5.0 - 8.0 pH Protein (U) [Mass/Vol] 50 mg/dL Abnormal Negative RBC LM.HPF (Urine sed) [#/Area] 0-2 Specific gravity (U) [Rel density] 1.037 High 1.005 - 1.030 Urobilinogen (U) [Mass/Vol] Normal Normal (0-1) mg/dL Volume, Urine 12 mL WBC LM.HPF (Urine sed) [#/Area] 0-2 [facility] CNOVon 10-07-2024 CNOV Office Visit (UCWSTR ) -------- GONSALESSOCORRO ([id number]) 1995 F Date Time Provider Department 10/07/24 1:45 PM JAGUAR PERSON [facility] During your visit today, we recorded the following information about you: Temperature Pulse Respiration Blood pressure 99.8 degrees 91/minute 16/minute 104/67 Weight 64.6 kg Jaguar Person APRN.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 Duration of symptoms 3 to 4 days. Associated symptoms listed above. Presents today for evaluation. Most bothersome symptom today is sore throat cough. No difficulty swallowing and secretion decreased range of motion of neck or trismus. No difficulty handling secretions. Past medical history prescription medications allergies reviewed. .Patient presents with: Flu Like Symptoms PAST MEDICAL HISTORY Diagnosis Date Anemia anxiety Asthma PAST SURGICAL HISTORY Procedure Laterality Date LAPAROSCOPY W/RMVL ADNEXAL STRUCTURES Bilateral 04/28/2018 l/s bilateral salpingectomy PAST SURGICAL HISTORY OF wisdom teeth PAST SURGICAL HISTORY OF 03/2020 exploratory laparoscopy VAGINAL HYSTERECTOMY 2021 ALLERGIES Codeine, Gabapentin, Latex, Oxycodone, Seasonal Allergies, and Zofran [Ondansetron] MEDICATIONS benzonatate (TESSALON PERLE) 100 mg capsule Take 1 capsule by mouth three times a day as needed. traMADol (ULTRAM) 50 mg tablet Take 50-100 mg by mouth every 6 hours as needed. (Patient not taking: Reported on 09/17/2024) albuterol HFA (PROVENTIL HFA, VENTOLIN HFA) 90 mcg/actuation inhaler Inhale 2 Puffs as instructed every 6 hours as needed for wheezing/shortness of breath. fluticasone (FLONASE) 50 mcg/actuation nasal spray Use 2 Sprays in each nostril once daily. Rinse mouth after use. FAMILY HISTORY Problem Relation Age of Onset Heart Mother Seizures Mother Stroke Mother Multiple Sclerosis Mother Psychiatry Sister Manic Depression Hypertension Maternal Grandfather Breast Cancer Maternal Aunt Hypertension Maternal Uncle Social History Tobacco Use Smoking status: Some Days Types: Cigarettes Smokeless tobacco: Never Substance Use Topics Alcohol use: Yes Comment: rarely Drug use: No BP 104/67 Pulse 91 Temp 37.7 ?C (99.8 ?F) Resp 16 Wt 64.6 kg (142 lb 6.7 oz) LMP 03/25/2022 SpO2 100% BMI 23.70 kg/m? Review of Systems Constitutional: Positive for chills, fever and malaise/fatigue. HENT: Positive for congestion and sore throat. Negative for ear discharge, ear pain and sinus pain. Eyes: Negative for blurred vision, pain, discharge and redness. Respiratory: Positive for cough. Negative for hemoptysis, sputum production, shortness of breath, wheezing and stridor. Cardiovascular: Negative for chest pain. Gastrointestinal: Negative for abdominal pain, diarrhea, nausea and vomiting. Musculoskeletal: Positive for myalgias. Skin: Negative for itching and rash. Neurological: Positive for headaches. Negative for dizziness. Objective Physical Exam Constitutional: General: She is not in acute distress. Appearance: She is not diaphoretic. HENT: Head: Normocephalic. Jaw: No trismus, tenderness, swelling or pain on movement. Right Ear: Tympanic membrane, ear canal and external ear normal. Left Ear: Tympanic membrane, ear canal and external ear normal. Mouth/Throat: Mouth: Mucous membranes are moist. Pharynx: Oropharynx is clear. Uvula midline. Posterior oropharyngeal erythema present. No pharyngeal swelling, oropharyngeal exudate or uvula swelling. Eyes: Conjunctiva/sclera: Conjunctivae normal. Pupils: Pupils are equal, round, and reactive to light. Cardiovascular: Rate and Rhythm: Normal rate and regular rhythm. Heart sounds: Normal heart sounds. Pulmonary: Effort: Pulmonary effort is normal. No tachypnea, accessory muscle usage or respiratory distress. Breath sounds: Normal breath sounds. No stridor. No wheezing, rhonchi or rales. Abdominal: General: There is no distension. Palpations: Abdomen is soft. Tenderness: There is no abdominal tenderness. There is no guarding or rebound. Musculoskeletal: Cervical back: Normal range of motion and neck supple. No edema, erythema, rigidity or tenderness. No pain with movement. Normal range of motion. Lymphadenopathy: Cervical: No cervical adenopathy. Skin: General: Skin is warm and dry. Neurological: Mental Status: She is alert and oriented to person, place, and time. ASSESSMENT/PLAN: 1. Sore throat - ICD9: 462, ICD10: J02.9 (primary diagnosis) - STREP A MOLECULAR (POC) 2. Strep throat - ICD9: 034.0, ICD10: J02.0 3. Viral illness - ICD9: 079.99, ICD10: B34.9 Test positive. Treat for strep pharyngitis. Placed on Keflex. Suspicious (more content not included)... Normal [facility] STREP A MOLECULAR (POC)on Interpretation and review of laboratory results Abnormal [facility] Procedural Control Valid Clereplaced by [facility] Strep A (POCT) Positive Abnormal Negative [facility] CNOVon 09-20-2024 CNOV Office Visit (WSTR ) -------- SOCORRO GONSALES ([id number]) 1995 F Date Time Provider Department 09/20/24 8:45 AM LEILANI ALVARADO [facility] During your visit today, we recorded the following information about you: Temperature Pulse Respiration Blood pressure 98.9 degrees 67/minute 20/minute 120/66 Weight 65.8 kg Leilani Alvarado PA 09/20/2024 9:26 AM Signed This note was created using [employer]. Subjective Socorro Gonsales is a 28 year old female. HPI 28-year-old female presents for sinus congestion, sinus pressure, cough for a week and a half. Patient was seen here 3 days ago and states she was diagnosed with ear infection. She was placed on amoxicillin. Patient states that her cough and nasal congestion have gotten worse. She states she is no longer having ear pain, but has a lot of nasal congestion, sinus pressure, sinus pain and worsening cough. She states she feels congested in the chest, but cough is dry. She had a fever on Wednesday, no fevers for the past 2 days. She has been taking DayQuil, NyQuil and the amoxicillin improvement in ear symptoms, but no change in sinus and cough. No other complaint. Not or breast-feeding. PAST MEDICAL HISTORY Diagnosis Date Anemia anxiety Asthma PAST SURGICAL HISTORY Procedure Laterality Date LAPAROSCOPY W/RMVL ADNEXAL STRUCTURES Bilateral 04/28/2018 l/s bilateral salpingectomy PAST SURGICAL HISTORY OF wisdom teeth PAST SURGICAL HISTORY OF 03/2020 exploratory laparoscopy VAGINAL HYSTERECTOMY 2021 ALLERGIES Codeine, Gabapentin, Latex, Oxycodone, Seasonal Allergies, and Zofran [Ondansetron] MEDICATIONS amoxicillin (AMOXIL) 875 mg tablet Take 1 tablet by mouth two times a day for 7 days. traMADol (ULTRAM) 50 mg tablet Take 50-100 mg by mouth every 6 hours as needed. (Patient not taking: Reported on 09/17/2024) albuterol HFA (PROVENTIL HFA, VENTOLIN HFA) 90 mcg/actuation inhaler Inhale 2 Puffs as instructed every 6 hours as needed for wheezing/shortness of breath. fluticasone (FLONASE) 50 mcg/actuation nasal spray Use 2 Sprays in each nostril once daily. Rinse mouth after use. FAMILY HISTORY Problem Relation Age of Onset Heart Mother Seizures Mother Stroke Mother Multiple Sclerosis Mother Psychiatry Sister Manic Depression Hypertension Maternal Grandfather Breast Cancer Maternal Aunt Hypertension Maternal Uncle Social History Tobacco Use Smoking status: Some Days Types: Cigarettes Smokeless tobacco: Never Substance Use Topics Alcohol use: Yes Comment: rarely Drug use: No Review of Systems Constitutional: Negative for chills and fever. HENT: Positive for congestion, sinus pressure and sinus pain. Negative for ear pain and sore throat. Respiratory: Positive for cough. Negative for shortness of breath. Cardiovascular: Negative for chest pain. Gastrointestinal: Negative for diarrhea and vomiting. Objective BP 120/66 Pulse 67 Temp 37.2 ?C (98.9 ?F) Resp 20 Wt 65.8 kg (145 lb 1 oz) LMP 03/25/2022 SpO2 99% BMI 24.14 kg/m? Physical Exam Vitals and nursing note reviewed. Constitutional: General: She is not in acute distress. Appearance: Normal appearance. She is not toxic-appearing. HENT: Right Ear: Tympanic membrane and ear canal normal. Left Ear: Tympanic membrane and ear canal normal. Nose: Mucosal edema and congestion present. Right Sinus: Maxillary sinus tenderness and frontal sinus tenderness present. Left Sinus: Maxillary sinus tenderness and frontal sinus tenderness present. Mouth/Throat: Mouth: Mucous membranes are moist. Eyes: Conjunctiva/sclera: Conjunctivae normal. Cardiovascular: Rate and Rhythm: Normal rate and regular rhythm. Pulmonary: Effort: Pulmonary effort is normal. Breath sounds: Normal breath sounds. No wheezing, rhonchi or rales. Skin: General: Skin is warm and dry. Neurological: Mental Status: She is alert. Assessment and Plan ASSESSMENT/PLAN: 1. Acute cough - ICD9: 786.2, ICD10: R05.1 (primary diagnosis) - XR CHEST 2V FRONTAL/LAT-no acute radiographic abnormality -Rx prednisone -Rx Tessalon Perles 2. Acute non-recurrent sinusitis, unspecified location - ICD9: 461.9, ICD10: J01.90 -Stop amoxicillin. Will start Augmentin to better cover for sinusitis. - Will begin treatment with Augmentin 875 mg PO BID for 5 days - Supportive care with plenty of fluids, rest, and analgesia prn. Diagnosis and treatment plan were discussed and questions were answered to the patient's satisfaction. Pt acknowledged understanding of concepts and follow up plan. Specific signs and symptoms that would indicate the need for higher level of care were discussed in detail warranting prompt ER evaluation. MALI Napoles Allergies As of Date: 09/20/2024 Noted Allergy Reaction CODEINE 05/27/2017 2 - Rash 9 - Itching GABAPENTIN (more content not included)... Normal [facility] XR CHEST 2V FRONTAL/LATon XR CHEST 2V FRONTAL/LAT * * *Final Report* * * DATE OF EXAM: Sep 20 2024 9:17AM WOX [id number] - XR CHEST 2V FRONTAL/LAT / PROCEDURE REASON: Acute cough * * * * Physician Interpretation * * * * EXAMINATION: CHEST RADIOGRAPH (2 VIEW FRONTAL and LATERAL) PATIENT/TECHNOLOGIST PROVIDED HISTORY: cough and congestion for a week CLINICAL HISTORY: 28 years old Female with Acute cough MQ: XC2_6 EXAM DATE/TIME: 09/20/2024 9:17 AM COMPARISON: Chest radiograph(s) dated 05/15/2024 RESULT: Lines, tubes, and devices: None. Lungs and pleura: No consolidation. No pleural effusion. No pneumothorax. Cardiomediastinal silhouette: Normal cardiomediastinal silhouette. Bones and soft tissues: Unremarkable. IMPRESSION: No acute radiographic abnormality. Purchasing Associate: CIPRIANO Transcribe Date/Time: Sep 20 2024 9:19A Dictated by : LIDIA HORN DO This examination was interpreted and the report reviewed and electronically signed by: LIDIA HORN DO on Sep 20 2024 9:20AM EST [id number] Normal [facility] XR Chest PA and Lateralon IMPRESSION: No acute radiographic abnormality. Purchasing Associate: PSCPaco Transcribe Date/Time: Sep 20 2024 9:19A Dictated by : LIDIA HORN DO This examination was interpreted and the report reviewed and electronically signed by: LIDIA HORN DO on Sep 20 2024 9:20AM EST DIVISION OF RADIOLOGY * * *Final Report* * * DATE OF EXAM: Sep 20 2024 9:17AM WOX [id number] - XR CHEST 2V FRONTAL/LAT / PROCEDURE REASON: Acute cough * * * * Physician Interpretation * * * * EXAMINATION: CHEST RADIOGRAPH (2 VIEW FRONTAL & LATERAL) PATIENT/TECHNOLOGIST PROVIDED HISTORY: cough and congestion for a week CLINICAL HISTORY: 28 years old Female with Acute cough MQ: XC2_6 EXAM DATE/TIME: 09/20/2024 9:17 AM COMPARISON: Chest radiograph(s) dated 05/15/2024 RESULT: Lines, tubes, and devices: None. Lungs and pleura: No consolidation. No pleural effusion. No pneumothorax. Cardiomediastinal silhouette: Normal cardiomediastinal silhouette. Bones and soft tissues: Unremarkable. DIVISION OF RADIOLOGY Provider, [facility] - 09/20/2024 * * *Final Report* * * DATE OF EXAM: Sep 20 2024 9:17AM WOX 5291 - XR CHEST 2V FRONTAL/LAT / PROCEDURE REASON: Acute cough * * * * Physician Interpretation * * * * EXAMINATION: CHEST RADIOGRAPH (2 VIEW FRONTAL & LATERAL) PATIENT/TECHNOLOGIST PROVIDED HISTORY: cough and congestion for a week CLINICAL HISTORY: 28 years old Female with Acute cough MQ: XC2_6 EXAM DATE/TIME: 09/20/2024 9:17 AM COMPARISON: Chest radiograph(s) dated 05/15/2024 RESULT: Lines, tubes, and devices: None. Lungs and pleura: No consolidation. No pleural effusion. No pneumothorax. Cardiomediastinal silhouette: Normal cardiomediastinal silhouette. Bones and soft tissues: Unremarkable. IMPRESSION IMPRESSION: No acute radiographic abnormality. Purchasing Associate: PSCB Transcribe Date/Time: Sep 20 2024 9:19A Dictated by : LIDIA HORN DO This examination was interpreted and the report reviewed and electronically signed by: LIDIA HORN DO on Sep 20 2024 9:20AM EST [facility] Radiology Study observation (narrative) [facility] XR Chest PA and LateralOrder ed By: [facility] Provider on 09-20-2024 [facility] CNOVon 09-17-2024 CNOV Office Visit ([facility]WSTR ) -------- SOCORRO GONSALES ([id number]) 1995 F Date Time Provider Department 09/17/24 9:00 AM JAGUAR PERSON [facility] During your visit today, we recorded the following information about you: Temperature Pulse Respiration Blood pressure 98.6 degrees 90/minute 16/minute 122/70 Weight 67.2 kg Jaguar Person, SATHISH.ENGINE DISPATCHER 09/17/2024 9:21 AM Signed Subjective HPI Nontoxic-appearing 28-year-old female presents urgent care chief complaint sore throat cough right ear pain. Duration of symptoms 10 days. Associated symptoms listed above. Most prominent symptom today is sinus pressure cough. Presents today for evaluation. OTC medications none. Daughter sick similar signs symptoms. Denies any chest pain shortness of breath or pleuritic pain. No hemoptysis or abdominal pain. Is not is not breast-feeding. Past medical history prescription medications allergies reviewed. .Patient presents with: Nasal Congestion: drainage, right ear pain, cough and sore throat x 10 days PAST MEDICAL HISTORY Diagnosis Date Anemia anxiety Asthma PAST SURGICAL HISTORY Procedure Laterality Date LAPAROSCOPY W/RMVL ADNEXAL STRUCTURES Bilateral 04/28/2018 l/s bilateral salpingectomy PAST SURGICAL HISTORY OF wisdom teeth PAST SURGICAL HISTORY OF 03/2020 exploratory laparoscopy VAGINAL HYSTERECTOMY 2021 ALLERGIES Codeine, Gabapentin, Latex, Oxycodone, Seasonal Allergies, and Zofran [Ondansetron] MEDICATIONS traMADol (ULTRAM) 50 mg tablet Take 50-100 mg by mouth every 6 hours as needed. (Patient not taking: Reported on 09/17/2024) albuterol HFA (PROVENTIL HFA, VENTOLIN HFA) 90 mcg/actuation inhaler Inhale 2 Puffs as instructed every 6 hours as needed for wheezing/shortness of breath. fluticasone (FLONASE) 50 mcg/actuation nasal spray Use 2 Sprays in each nostril once daily. Rinse mouth after use. FAMILY HISTORY Problem Relation Age of Onset Heart Mother Seizures Mother Stroke Mother Multiple Sclerosis Mother Psychiatry Sister Manic Depression Hypertension Maternal Grandfather Breast Cancer Maternal Aunt Hypertension Maternal Uncle Social History Tobacco Use Smoking status: Some Days Types: Cigarettes Smokeless tobacco: Never Substance Use Topics Alcohol use: Yes Comment: rarely Drug use: No BP 122/70 Pulse 90 Temp 37 ?C (98.6 ?F) Resp 16 Wt 67.2 kg (148 lb 2.4 oz) LMP 03/25/2022 SpO2 100% BMI 24.65 kg/m? ' Review of Systems Constitutional: Negative for chills, fever and malaise/fatigue. HENT: Positive for congestion, sinus pain and sore throat. Negative for ear discharge and ear pain. Eyes: Negative for blurred vision, pain, discharge and redness. Respiratory: Positive for cough. Negative for hemoptysis, sputum production, shortness of breath, wheezing and stridor. Cardiovascular: Negative for chest pain. Gastrointestinal: Negative for abdominal pain, diarrhea, nausea and vomiting. Musculoskeletal: Negative for myalgias. Skin: Negative for itching and rash. Neurological: Negative for dizziness and headaches. Objective Physical Exam HENT: Head: Normocephalic. Jaw: No trismus, tenderness, swelling or pain on movement. Right Ear: Tympanic membrane, ear canal and external ear normal. Left Ear: Tympanic membrane, ear canal and external ear normal. Nose: Congestion present. Mouth/Throat: Mouth: Mucous membranes are moist. Pharynx: Oropharynx is clear. Uvula midline. No oropharyngeal exudate or posterior oropharyngeal erythema. Eyes: Pupils: Pupils are equal, round, and reactive to light. Cardiovascular: Rate and Rhythm: Normal rate. Pulmonary: Effort: Pulmonary effort is normal. No accessory muscle usage, respiratory distress or retractions. Breath sounds: No stridor. No wheezing, rhonchi or rales. Abdominal: Tenderness: There is no abdominal tenderness. There is no guarding or rebound. Musculoskeletal: Cervical back: No erythema or tenderness. No pain with movement. Normal range of motion. Lymphadenopathy: Cervical: No cervical adenopathy. Neurological: General: No focal deficit present. Mental Status: She is alert and oriented to person, place, and time. Mental status is at baseline. ASSESSMENT/PLAN: 1. Sinobronchitis - ICD9: 473.9, 490, ICD10: J32.9, J40 Diagnosed sinobronchitis. Placed on amoxicillin. Patient was educated on supportive therapies. Patient will follow up with primary care provider as needed. Patient was instructed to immediately proceed to emergency room for any new, worsening, or symptoms lasting longer than anticipated. The patient's clinical presentation is otherwise unremarkable at this time. Based on exam and clinical finding, the patient is stable for discharge. Plan of care was discussed with patient. Patient verbalizes understanding and agrees to plan of care. This note was (more content not included)... Normal [facility] CNOVon 08-01-2024 CNOV Office Visit ([facility]STR ) -------- SOCORRO GONSALES ([id number]) 1995 F Date Time Provider Department 08/01/24 10:15 AM [facility] During your visit today, we recorded the following information about you: Temperature Pulse Respiration Blood pressure 97.5 degrees 65/minute 20/minute 104/71 Weight 68 kg Bro Lucio APRN.ENGINE DISPATCHER 08/01/2024 10:44 AM Signed Subjective Ear Pain Associated symptoms include congestion, coughing, a fever, headaches and a sore throat. Pertinent negatives include no chest pain, chills, myalgias, nausea or vomiting. Socorro Gonsales is a 28 year old female who presents with sore throat, sinus congestion, sinus pressure and pain, headache for past 5 days. This morning she woke with right ear pain. She had a fever of 101.3 degrees F. She has been taking dayquil, flonase, and tramadol. States her whole family is sick. Review of Systems Constitutional: Positive for fever. Negative for chills and malaise/fatigue. HENT: Positive for congestion, ear pain, sinus pain and sore throat. Respiratory: Positive for cough. Negative for sputum production. Cardiovascular: Negative for chest pain. Gastrointestinal: Negative for diarrhea, nausea and vomiting. Musculoskeletal: Negative for myalgias. Neurological: Positive for headaches. BP 104/71 Pulse 65 Temp 36.4 ?C (97.5 ?F) Resp 20 Wt 68 kg (149 lb 14.6 oz) LMP 03/25/2022 SpO2 100% BMI 24.95 kg/m? PAST MEDICAL HISTORY Diagnosis Date Anemia anxiety Asthma PAST SURGICAL HISTORY Procedure Laterality Date LAPAROSCOPY W/RMVL ADNEXAL STRUCTURES Bilateral 04/28/2018 l/s bilateral salpingectomy PAST SURGICAL HISTORY OF wisdom teeth PAST SURGICAL HISTORY OF 03/2020 exploratory laparoscopy VAGINAL HYSTERECTOMY 2021 ALLERGIES Codeine, Gabapentin, Latex, Oxycodone, Seasonal Allergies, and Zofran [Ondansetron] MEDICATIONS traMADol (ULTRAM) 50 mg tablet Take 50-100 mg by mouth every 6 hours as needed. albuterol HFA (PROVENTIL HFA, VENTOLIN HFA) 90 mcg/actuation inhaler Inhale 2 Puffs as instructed every 6 hours as needed for wheezing/shortness of breath. fluticasone (FLONASE) 50 mcg/actuation nasal spray Use 2 Sprays in each nostril once daily. Rinse mouth after use. (Patient taking differently: Use 2 Sprays in each nostril as needed for cold/allergy symptoms. Rinse mouth after use.) amoxicillin-clavulanate potassium (AUGMENTIN) 875-125 mg per tablet Take 1 tablet by mouth two times a day for 10 days. FAMILY HISTORY Problem Relation Age of Onset Heart Mother Seizures Mother Stroke Mother Multiple Sclerosis Mother Psychiatry Sister Manic Depression Hypertension Maternal Grandfather Breast Cancer Maternal Aunt Hypertension Maternal Uncle Social History Tobacco Use Smoking status: Some Days Types: Cigarettes Smokeless tobacco: Never Substance Use Topics Alcohol use: Yes Comment: rarely Drug use: No Objective Physical Exam Vitals and nursing note reviewed. Constitutional: Appearance: Normal appearance. HENT: Right Ear: Ear canal and external ear normal. A middle ear effusion is present. Left Ear: Tympanic membrane, ear canal and external ear normal. Nose: Nasal tenderness, mucosal edema, congestion and rhinorrhea present. Mouth/Throat: Mouth: Mucous membranes are moist. Pharynx: Uvula midline. No oropharyngeal exudate or posterior oropharyngeal erythema. Cardiovascular: Rate and Rhythm: Normal rate and regular rhythm. Heart sounds: Normal heart sounds. Pulmonary: Effort: Pulmonary effort is normal. No respiratory distress. Breath sounds: Normal breath sounds. No wheezing or rales. Musculoskeletal: Cervical back: Neck supple. Lymphadenopathy: Cervical: No cervical adenopathy. Skin: General: Skin is warm and dry. Findings: No erythema or rash. Neurological: Mental Status: She is alert. ASSESSMENT/PLAN: 1. Bacterial sinusitis - ICD9: 473.9, 041.9, ICD10: J32.9, B96.89 (primary diagnosis) - Will begin treatment with as per antibiotic as written, see orders - Supportive care with plenty of fluids, rest, and analgesia prn. - AMOXICILLIN 875 MG-POTASSIUM CLAVULANATE 125 MG TABLET 2. Acute effusion of right ear - ICD9: 381.00, ICD10: H65.191 - flonase nasal spray once daily. - Follow-up with your PCP in 3-5 days if symptoms have not improved or sooner if symptoms worsen - Discussed red flags and need for immediate medical evaluation if any occur. - Discussed supportive care treatment with fluids, rest and analgesia. - Discussed expected course of illness YAMILETH Read Kathy, APRN.CNP 08/01/2024 10:44 AM Signed ASSESSMENT/PLAN: 1. Bacterial sinusitis - ICD9: 473.9, 041.9, ICD10: J32.9, B96.89 (primary diagnosis) - Will begin treatment with as per antibiotic as written, see orders - Sup (more content not included)... Normal [facility] 36on 06-29-2024 36 Spoke with pt she hoover d visits with Dr. Rodriguez and he advise to complete more test form referring provider. I send VINCE request to Dr. Rodriguez office. Normal [facility] 36on 06-27-2024 36 Placed call to kari nt. Unable to reach them by phone to discuss lab results. Left detailed message to return call to discuss results. Please release information to patient [facility] 36 ----- Message from Nava Mensah sent at 06/26/2024 8:01 AM EST ----- ----- Message ----- From: Philippe Chua DO Sent: 06/25/2024 8:43 PM EST To: [facility] Clinical Helium Arc Welder As expected. all her lab markers for autoimmune inflammatory conditions are negative. No signs of thyroid issues, B12 deficiency, or inflammation of her muscles and joints. No med changes necessary. Normal [facility] Office Visiton 06-21-2024 Follow-up visit [id number] Socorro Gonsales 1995 F Date Provider Department Center 06/21/2024 [id number] CHUA [facility] Family History Problem Relation Age of Onset Other Mother Comments: Good pastures synd 07/31 fall with [facility], on Dialysis age 48 Kidney failure Mother Seizures Mother Hypertension Mother No Known Problems Father Comments: no contact with No Known Problems Sister No Known Problems Brother Family Status - Relation Status Age at Mother Father Alive Sister Alive Brother Alive Level of Service:[id number] OR OFFICE/OUTPATIENT ESTABLISHED LOW MDM 20 MIN Reason for Visit and Comments: Leg Problem [232] - PT was concerned because her legs were shaking During PT Flu Vaccine [189] - Patient has declined the flu vaccine [facility] Progress Noteon 06-21-2024 Progress Note [facility] [place] [address] [place] [id number] Visit type: Established Patient Reason for Visit: Leg Problem (PT was concerned because her legs were shaking During PT) and Flu Vaccine (Patient has declined the flu vaccine ) Assessment / Plan: Socorro was seen today for leg problem and flu vaccine. Diagnoses and all orders for this visit: Arthralgia, unspecified joint (Primary) - C-reactive protein; Future - Sedimentation rate, automated; Future - Vitamin B12; Future - T4, free; Future - T3, free; Future - TSH; Future - DANIEL; Future - C-reactive protein - Sedimentation rate, automated - Vitamin B12 - T4, free - T3, free - TSH - DANIEL Mild asthma without complication, unspecified whether persistent Other orders - Pneumococcal conjugate vaccine 20-valent IM (PREVNAR 20) Subjective: Patient ID: Socorro Gonsales is a 28 y.o. female. HPI patient presents concerned that she had some twitching of her right leg undergoing therapy for right knee issues. Is scheduled to get a arthroscopy with possible meniscectomy per Dr. Jansen in a few weeks. During therapy her legs shook for a few minutes afterwards. Is concerned about autoimmune workup. Mother of Goodpasture syndrome. Review of Systems Chart reviewed. He is getting worked up for celiac disease. No hair loss erythema nodosum. Some morning stiffness but no joint changes. Generally she has felt pretty well. Recent lab work in the ER was unremarkable. No vomiting or diarrhea. No reason for electrolyte loss. She generally has no low back pain or sciatica. Her strength is good Allergies Allergen Reactions Keflex [Cephalexin] Nausea And Vomiting Morphine Ondansetron Itching Itching and redness in arm when given Zofran IV Seasonal Ic [Octacosanol] Codeine Itching and Rash Gabapentin Other [place] like Heart was racing [place] like Heart was racing Latex Itching, Rash and Hives Other reaction(s): Hives Current Outpatient Medications on File Prior to Visit Medication Sig Dispense Refill Acetaminophen Extra Strength 500 MG tablet Take 1,000 mg by mouth every 6 hours as needed. albuterol 108 (90 Base) MCG/ACT inhaler Inhale 2 puffs every 6 hours as needed. fluticasone (Flonase) 50 MCG/ACT nasal spray 2 sprays in the morning. [DISCONTINUED] cholestyramine light (Prevalite) 4 g packet Take 1 packet (4 g) by mouth 2 times daily. (Patient not taking: Reported on 04/25/2024) 60 packet 11 [DISCONTINUED] pantoprazole (ProtoNix) 40 MG EC tablet Take 1 tablet (40 mg) by mouth every morning (before breakfast). Do not crush, chew, or split. 90 tablet 1 No current facility-administered medications on file prior to visit. Patient Active Problem List Diagnosis Chronic constipation PFO (patent foramen ovale) Asthma Allergic rhinitis YVONNE (generalized anxiety disorder) Gastroparesis Hiatal hernia with gastroesophageal reflux Engages in vaping Social History Tobacco Use Smoking status: Former Types: Cigarettes Smokeless tobacco: Former Tobacco comments: Vape Use Substance Use Topics Alcohol use: Yes Comment: social Past Surgical History: Procedure Laterality Date ABDOMINAL ADHESION SURGERY 2020 and 2021 APPENDECTOMY 2020 CHOLECYSTECTOMY 2019 COLONOSCOPY 2019 CYSTOSCOPY EXPLORATORY LAPAROTOMY 2019 PARTIAL HYSTERECTOMY 2021 TUBAL LIGATION Family History Problem Relation Name Age of Onset Other Mother Ramya mcmullen Good pastures synd 07/31 fall with [facility], on Dialysis age 48 Kidney failure Mother Ramya summer Seizures Mother Ramya summer Hypertension Mother Ramya summer No Known Problems Father no contact with No Known Problems Sister Odilia No Known Problems Brother Charisse Objective: BP 80/60 (BP Location: Left arm, Patient Position: Sitting, BP Cuff Size: Adult long) Pulse 51 Temp 36.4 ?C (97.5 ?F) (Temporal) Ht 5' 5 (1.651 m) Wt 156 lb (70.8 kg) SpO2 98% BMI 25.96 kg/m? Physical Exam exam is unremarkable. No joint changes. No erythrasma. No thyroid or neck masses. Reflexes normal. No joint changes. No synovitis. Full painless range of motion of her elbows wrist and fingers full painless range of motion of her hips knees and ankles and toes. No skin changes. Her strength of the lower extremities entirely normal. Normal range of motion of her back. She can walk on her heels and toes toes downgoing and no clonus. Normal [facility] [id number] 36 No notes have been s ent to our office. However, it looks like she was recommended to keep with [facility] gastroparesis interdisciplinary clinic and have planned follow up in 08/2023. Normal [facility] 36 06-14-2024 36 Name of caller: Socorro Contact phone number: [phone] Relationship to Patient: patient Provider: ZEESHAN Gunderson Practice: [facility] Chief Complaint/Reason for Call: Pt called in stating the provider she was referred out to through [facility], states they are sending over medical notes and is advising that she have more testing done but through [facility]. Pt was wanting to verify if the notes came over and if she needs to have more labs and an MRI done. Please advise Best time of day caller can be reached: Any Patient advised that office/PCP has 24-48 business hours to return their call: Yes Normal [facility] CNOVon 06-13-2024 CN Office Visit (GENSMN ) -------- SOCORRO GONSALES ([id number]) 1995 F Date Time Provider Department 06/13/24 9:00 AM MICHAEL PARKER During your visit today, we recorded the following information about you: Michael Parker, PhD 06/13/2024 2:17 PM Signed [facility] [place] Name: Socorro Gonsales MR#: [id number] Date: 06/13/2024 Time: 1 hour Referred by: Dr. 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 She was seen with her fiance. She reports lifelong constipation (now alternating with diarrhea), and a childhood with instability, chaos, and deprivation, and insufficient access to bathrooms. She was diagnosed with YVONNE in 2019 secondary to family of origin issues. She had therapy to help to learn how to cope but she has not worked on healing from past trauma. She will explore getting therapy locally. The basic principles of the brain gut connection were explored. Emphasis was placed on the effects of stress and emotions on physiology. We discussed the role of hypersensitivity. She discussed ways in which her medical condition had had an effect on her life. She was given information about ways to mediate her emotional and physiological response. She was introduced to relaxation training. She was given the website for the [facility] and shown the relaxation recordings with the recommendation to practice this and the rationale behind their use. She was also given the websites for [email or web address] and [employer]. In person follow-up in August was discussed. Michael Bailon, Ph.D. Allergies As of Date: 06/13/2024 Noted Allergy Reaction CODEINE 05/27/2017 2 - Rash 9 - Itching GABAPENTIN 02/23/2020 14 - Other: See Comments 16 - Unknown Comments: [place] like Heart was racing LATEX 05/27/2017 2 - Rash 9 - Itching SEASONAL ALLERGIES 11/28/2015 14 - Other: See Comments Comments: nasal congestion ZOFRAN (ONDANSETRON) 04/23/2020 9 - Itching Comments: Itching and redness in arm when given Zofran IV Date Reviewed: 06/13/2024 Reviewed by: Colton Guzman MA - Fully Assessed Primary Visit Diagnosis:Gastroparesis [K31.84] Prescriptions as of 06/13/2024 - albuterol HFA (PROVENTIL HFA, VENTOLIN HFA) 90 mcg/actuation inhaler Inhale 2 Puffs as instructed every 6 hours as needed for wheezing/shortness of breath. - fluticasone (FLONASE) 50 mcg/actuation nasal spray Use 2 Sprays in each nostril once daily. Rinse mouth after use. - pantoprazole DR (PROTONIX) 40 mg tablet Take 40 mg by mouth once daily. Problem List As Of Date 06/13/2024 Noted Resolved Late care [O09.30] 11/28/2015 06/03/2016 Family history of defect [Z82.79] 11/28/2015 06/03/2016 Encounter for supervision of other normal pregn*01/22/2016 06/03/2016 Poor social situation [Z60.9] 06/03/2016 04/29/2018 Short interval between pregnancies affecting pr*05/27/2017 03/04/2018 Tobacco use disorder complicating , ch*05/27/2017 05/03/2019 History of anxiety [Z86.59] 05/27/2017 Patient request for diagnostic testing [Z01.89] 05/27/2017 06/02/2017 with uncertain dates, antepartum [Z34*05/27/2017 03/04/2018 Positive GBS test [B95.1] 12/30/2017 03/04/2018 Encounter Status:Closed by MICHAEL PARKER on 06/13/24 Normal [facility] CBC W Auto Differential pane l (Bld)on 06-05-2024 Basophils (Bld) [#/Vol] 0.1 10*3/uL 0.0 - 0.2 10*3/uL Basophils/100 WBC (Bld) 0.7 % 0.0 - 2.0 % Eosinophils (Bld) [#/Vol] 0.1 10*3/uL 0.0 - 0.5 10*3/uL [facility] Eosinophils/100 WBC (Bld) 1.9 % 0.0 - 6.0 % Erythrocyte distribution width (RBC) [Ratio] 11.8 % 11.5 - 15.0 % Hematocrit (Bld) [Volume fraction] 41 % 35.0 - 47.0 % Hemoglobin (Bld) [Mass/Vol] 14.3 g/dL 11.7 - 16.0 g/dL [facility] [employer] Immature granulocytes (Bld) [#/Vol] 0 10*3/uL NINF - 0.1 10*3/uL [facility] Immature granulocytes/100 WBC (Bld) 0.3 % 0.0 - 2.0 % Interpretation and review of laboratory results Normal [facility] [employer] Lymphocytes (Bld) [#/Vol] 3.1 10*3/uL 1.0 - 4.3 10*3/uL [facility] Lymphocytes/100 WBC (Bld) 41.2 % 15.0 - 45.0 % MCH (RBC) [Entitic mass] 31.4 pg 26.0 - 34.0 pg [facility] MCHC (RBC) [Mass/Vol] 34.9 % 30.5 - 36.0 % MCV (RBC) [Entitic vol] 89.9 fL 77.0 - 99.0 fL Monocytes (Bld) [#/Vol] 0.4 10*3/uL 0.0 - 0.9 10*3/uL Monocytes/100 WBC (Bld) 5.2 % 5.0 - 13.0 % Neutrophils (Bld) [#/Vol] 3.8 10*3/uL 1.8 - 7.5 10*3/uL Neutrophils/100 WBC (Bld) 50.7 % 38.0 - 82.0 % Nucleated RBC/100 WBC (Bld) [Ratio] 0 % Platelet mean volume (Bld) [Entitic vol] 9.9 fL 9.0 - 12.7 fL Comment on above: MPV is a calculated measurement using platelet volume ratio Platelets (Bld) [#/Vol] 326 10*3/uL 140 - 440 10*3/uL RBC (Bld) [#/Vol] 4.56 10*6/uL 3.80 - 5.2 0 10*6/uL WBC (Bld) [#/Vol] 7.5 10*3/uL 3.6 - 10.7 10*3/uL [facility] CBC WITH AUTO DIFFERENTIALon 06-05-2024 Basophils (Bld) [#/Vol] 0.1 10*3/uL Normal 0.0-0.2 [facility] Comment on above: Performed By: #### Eugene [id number] ####Machine Spreader: KELLY RODRIGES ([id number])[facility] HotelcloudTMAN (SWRLAB)[address] [place] [address] Basophils/100 WBC (Bld) 0.7 % Normal 0.0-2.0 [facility] Comment on above: Performed By: #### Eugene [id number] ####Machine Spreader: KELLY RODRIGES ([id number])[facility] RITTMAN (SWRLAB)[address] [place] [address] Eosinophils (Bld) [#/Vol] 0.1 10*3/uL Normal 0.0-0.5 [facility] Comment on above: Performed By: #### L [id number] ####Machine Spreader: KELLY RODRIGES ([id number])[place] RITTMAN (SWRLAB)[address] [place] [address] [place] Eosinophils/100 WBC (Bld) 1.9 % Normal 0.0-6.0 [facility] Comment on above: Performed By: #### L [id number] ####Machine Spreader: KELLY RODRIGES ([id number])[facility] RO RITTMAN (SWRLAB)[address] [place] [address] Erythrocyte distribution width (RBC) [Ratio] 11.8 % Normal 11.5-15.0 [facility] Comment on above: Performed By: #### L [id number] ####Machine Spreader: KELLY RODRIGES ([id number])[facility] RO RITTMAN (SWRLAB)[address] [place] [address] Hematocrit (Bld) [Volume fraction] 41.0 % Normal 35.0-47.0 [facility] Comment on above: Performed By: #### L [id number] ####Machine Spreader: KELLY RODRIGES ([id number])[facility] RO [place] (SWRLAB)[address] [place] [address] Hemoglobin (Bld) [Mass/Vol] 14.3 g/dL Normal 11.7-16.0 [facility] Comment on above: Performed By: #### L [id number] ####Machine Spreader: KELLY RODRIGES ([id number])[facility] RO [place] (SWRLAB)[address] [place] [address] IMMATURE GRANS % 0.3 % Normal 0.0-2.0 [facility] Comment on above: Performed By: #### L [id number] ####Machine Spreader: KELLY RODRIGES ([id number])[facility] RO [place] (SWRLAB)[address] [place] [address] IMMATURE GRANS ABSOLUTE 0.0 10*3/uL Normal <0.1 [facility] Comment on above: Performed By: #### L [id number] ####Machine Spreader: KELLY RODRIGES ([id number])[facility] [facility] [place] (SWRLAB)[address] [place] [address] Lymphocytes (Bld) [#/Vol] 3.1 10*3/uL Normal 1.0-4.3 [facility] Comment on above: Performed By: #### L [id number] ####Machine Spreader: KELLY RODRIGES ([id number])[facility] RO RITTM[place] (SWRLAB)[address] [place] [address] Lymphocytes/100 WBC (Bld) 41.2 % Normal 15.0-45.0 [facility] Comment on above: Performed By: #### L [id number] ####Machine Spreader: KELLY RODRIGES ([id number])[facility] RO [place]TM[place] (SWRLAB)[address] [place] [address] MCH (RBC) [Entitic mass] 31.4 pg Normal 26.0-34.0 [facility] Comment on above: Performed By: #### L [id number] ####Machine Spreader: KELLY RODRIGES ([id number])[facility] RO [place] (SWRLAB)[address] [place] [address] MCHC 34.9 % Normal 30.5-36.0 [facility] Comment on above: Performed By: #### L [id number] ####Machine Spreader: KELLY RODRIGES ([id number])[facility] RO [place] (SWRLAB)[address] [place] [address] MCV (RBC) [Entitic vol] 89.9 fL Normal 77.0-99.0 [facility] Comment on above: Performed By: #### L [id number] ####Machine Spreader: KELLY RODRIGES ([id number])[facility]ITAL[facility] RO RITTMAN (SWRLAB)[address] [place] [address] [place] Monocytes (Bld) [#/Vol] 0.4 10*3/uL Normal 0.0-0.9 [facility] Comment on above: Performed By: #### L [id number] ####Machine Spreader: KELLY RODRIGES ([id number])[facility] HOLLOWAYJIA RITTMAN (SWRLAB)[address] [place] [address] [place] Monocytes/100 WBC (Bld) 5.2 % Normal 5.0-13.0 [facility] Comment on above: Performed By: #### L [id number] ####Machine Spreader: KELLY RODRIGES ([id number])[facility] RO [place] (SWRLAB)[address] [place] [address] [place] NEUTROPHILS ABSOLUTE 3.8 10*3/uL Normal 1.8-7.5 [facility] Comment on above: Performed By: #### L [id number] ####Machine Spreader: KELLY RODRIGES ([id number])[facility] RO [place] (SWRLAB)[address] [place] [address] [place] Neutrophils/100 WBC (Bld) 50.7 % Normal 38.0-82.0 [facility] Comment on above: Performed By: #### L [id number] ####Machine Spreader: KELLY RODRIGES ([id number])[facility] RO [place] (SWRLAB)[address] [place] [address] [place] NRBC 0.0 /100 WBCs Normal 0.0-2.0 [facility] Comment on above: Performed By: #### L [id number] ####Machine Spreader: KELLY RODRIGES ([id number])[facility] HOLLOWAYJIA RITTMAN (SWRLAB)[address] [place] [address] [place] Platelet mean volume (Bld) [Entitic vol] 9.9 fL Normal 9.0-12.7 [facility] Comment on above: Result Comment: MPV is a calculated measurement using platelet volume ratio Performed By: #### L [id number] ####Machine Spreader: KELLY RODRIGES ([id number])[facility] RO RITTM[place] (SWRLAB)[address] Platelets (Bld) [#/Vol] 326 10*3/uL Normal 140-440 [facility] Comment on above: Performed By: #### L [id number] ####Machine Spreader: KELLY RODRIGES ([id number])[facility] RO [place] (SWRLAB)[address] RBC (Bld) [#/Vol] 4.56 10*6/uL Normal 3.80-5.20 [facility] Comment on above: Performed By: #### L [id number] ####Machine Spreader: KELLY RODRIGES ([id number])[facility] [place] RIT[place] (SWRLAB)[address] [place] [address] WBC (Bld) [#/Vol] 7.5 10*3/uL Normal 3.6-10.7 [facility] Comment on above: Performed By: #### L [id number] ####Machine Spreader: KELLY RODRIGES ([id number])[facility] RO [facility] (SWRLAB)[address] [place] [address] COMPLETE URINALYSISon 2023 BILIRUBIN, TOTAL PRESENCE IN URINE Negative Normal Negative [facility] Comment on above: Performed By: #### L [id number] ####Machine Spreader: KELLY RODRIGES ([id number])[facility] RO [place] (SWRLAB)[address] [place] [address] Clarity (U) Clear Normal Clear [facility] Comment on above: Performed By: #### L [id number] ####Machine Spreader: KELLY RODRIGES ([id number])[facility] HOLLOWAYJIA RITTMAN (SWRLAB)[address] [place] [address] Color (U) Colorless Normal Lt. Yellow [facility] Comment on above: Performed By: #### L [id number] ####Machine Spreader: KELLY RODRIGES ([id number])[facility]ITAL[facility] JIA RITTMAN (SWRLAB)[address] [place] [address] [place] GLUCOSE (MG/DL) IN URINE Normal Normal Normal (<70) [facility] Comment on above: Performed By: #### L [id number] ####Machine Spreader: KELLY RODRIGES ([id number])[facility] RO [place] (SWRLAB)[address] HEMOGLOBIN PRESENCE IN URINE Negative Normal Negative [facility] Comment on above: Performed By: #### L [id number] ####Machine Spreader: KELLY RODRIGES ([id number])[facility] RO [place] (SWRLAB)[address] [place] [address] Ketones Ql (U) Trace Abnormal Negative [facility] Comment on above: Performed By: #### L [id number] ####Machine Spreader: KELLY RODRIGES ([id number])[facility] RO [place] (SWRLAB)[address] [place] [address] LEUKOCYTE ESTERASE PRESENCE IN URINE BY TEST STRIP Negative Normal Negative [facility] Comment on above: Performed By: #### L [id number] ####Machine Spreader: KELLY RODRIGES ([id number])[facility] RO [place] (SWRLAB)[address] [place] [address] NITRITE PRESENCE IN URINE Negative Normal Negative [facility] Comment on above: Performed By: #### L [id number] ####Machine Spreader: KELLY RODRIGES ([id number])[facility] RO [facility] (SWRLAB)[address] [place] [address] pH (U) 5.5 [pH] Normal 5.0-8.0 [facility] Comment on above: Performed By: #### L [id number] ####Machine Spreader: KELLY RODRIGES ([id number])[facility] RO [facility] (SWRLAB)[address] [place] [address] Protein (U) [Mass/Vol] Negative Normal Negative [facility] Comment on above: Performed By: #### L [id number] ####Machine Spreader: KELLY RODRIGES ([id number])[facility] RO [facility] (SWRLAB)[address] Specific gravity (U) [Rel density] 1.009 Normal 1.005-1.030 [facility] Comment on above: Performed By: #### L [id number] ####Machine Spreader: KELLY RODRIGES ([id number])[facility] RO [place] (SWRLAB)[address] UROBILINOGEN (MG/DL) IN URINE Normal Normal Normal (0-1) [facility] Comment on above: Performed By: #### L [id number] ####Machine Spreader: KELLY RODRIGES ([id number])[facility] ROMANTMAN (SWRLAB)[address] [place] [address] COMPREHENSIVE METABOLIC PANE Tim 06-05-2024 Albumin [Mass/Vol] 5.0 g/dL Normal 3.5-5.0 [facility] Comment on above: Performed By: #### L AB17, LAB99 ####Machine Spreader: KELLY RODRIGES ([id number])[facility] RO [place] (SWRLAB)[address] [place] [address] [place] ALP [Catalytic activity/Vol] 55 U/L Normal 38-126 [facility] Comment on above: Performed By: #### L AB17, LAB99 ####Machine Spreader: KELLY RODRIGES ([id number])[facility] RO [place] (SWRLAB)[address] [place] [address] [place] ALT [Catalytic activity/Vol] 25 U/L Normal 0-34 [facility] Comment on above: Performed By: #### L AB17, LAB99 ####Machine Spreader: KELLY RODRIGES ([id number])[facility] RO [place] (SWRLAB)[address] Anion gap [Moles/Vol] 10 mmol/L Normal 3-13 [facility] Comment on above: Performed By: #### L AB17, LAB99 ####Machine Spreader: KELLY RODRIGES ([id number])[facility] RO [place] (SWRLAB)[address] [place] [address] [place] AST [Catalytic activity/Vol] 51 U/L High 15-46 [facility] Comment on above: Performed By: #### L AB17, LAB99 ####Machine Spreader: KELLY RODRIGES ([id number])[facility] HO[place]AYJIA RITTMAN (SWRLAB)[address] [place] [address] [place] Bilirubin [Mass/Vol] 0.8 mg/dL Normal 0.2-1.3 [facility] Comment on above: Performed By: #### Eugene AB17, LAB99 ####Machine Spreader: KELLY RODRIGES ([id number])[facility] [place]AYJIA RITTMAN (SWRLAB)[address] [place] [address] [place] Calcium [Mass/Vol] 10.0 mg/dL Normal 8.4-10.4 [facility] Comment on above: Performed By: #### Eugene AB17, LAB99 ####Machine Spreader: KELLY RODRIGES ([id number])[facility] [place]AYJIA R[place]AN (SWRLAB)[address] [place] [address] [place] Chloride [Moles/Vol] 101 mmol/L Normal 98-107 [facility] Comment on above: Performed By: #### L AB17, LAB99 ####Machine Spreader: KELLY RODRIGES ([id number])[facility] [place]AYJIA RITTMAN (SWRLAB)[address] [place] [address] [place] CO2 [Moles/Vol] 27 mmol/L Normal 22-30 [facility] Comment on above: Performed By: #### L AB17, LAB99 ####Machine Spreader: KELLY RODRIGES ([id number])[facility] [place]JIA RIT[place]AN (SWRLAB)[address] [place] [address] [place] Creatinine [Mass/Vol] 0.67 mg/dL Normal 0.52-1.04 [facility] Comment on above: Performed By: #### L AB17, LAB99 ####Machine Spreader: KELLY RODRIGES ([id number])[facility] ROMANTMAN (SWRLAB)[address] [place] [address] GLOMERULAR FILTRATION RATE ML/MIN/1.73 SQ M.PREDICTED >90.0 Normal >60.0 [facility] Comment on above: Result Comment: Calc ulation based on the Chronic Kidney Disease Epidemiology Collaboration (CKD-EPI) equation refit without adjustment for race Performed By: #### L AB17, LAB99 ####Machine Spreader: KELLY RODRIGES ([id number])[facility] ROMANTMAN (SWRLAB)[address] [place] [address] [place] Glucose [Mass/Vol] 87 mg/dL Normal 70-100 [facility] Comment on above: Performed By: #### L AB17, LAB99 ####Machine Spreader: KELLY RODRIGES ([id number])[facility] RO [place] (SWRLAB)[address] [place] [address] [place] Potassium [Moles/Vol] 3.9 mmol/L Normal 3.5-5.1 [facility] Comment on above: Performed By: #### L AB17, LAB99 ####Machine Spreader: KELLY RODRIGES ([id number])[facility] RO [facility] (SWRLAB)[address] [place] [address] [place] Protein [Mass/Vol] 8.8 g/dL High 6.3-8.2 [facility] Comment on above: Performed By: #### L AB17, LAB99 ####Machine Spreader: KELLY RODRIGES ([id number])[facility] RO [place] (SWRLAB)[address] [place] [address] [place] Sodium [Moles/Vol] 138 mmol/L Normal 135-145 [facility] Comment on above: Performed By: #### L AB17, LAB99 ####Machine Spreader: KELLY RODRIGES ([id number])[facility] ELOAN (SWRLAB)[address] Urea nitrogen [Mass/Vol] 9 mg/dL Normal 7-17 [facility] Comment on above: Performed By: #### L AB17, LAB99 ####Machine Spreader: KELLY RODRIGES ([id number])[facility] NINA (SWRLAB)[address] Comprehensive metabolic 1998 panelon 06-05-2024 Albumin [Mass/Vol] 5 g/dL 3.5 - 5.0 g/dL [facility] ALP [Catalytic activity/Vol] 55 U/L 38 - 126 U/L ALT [Catalytic activity/Vol] 25 U/L 0 - 34 U/L Anion gap [Moles/Vol] 10 mmol/L 3 - 13 mmol/L AST [Catalytic activity/Vol] 51 U/L High 15 - 46 U/L Bilirubin [Mass/Vol] 0.8 mg/dL 0.2 - 1 .3 mg/dL Calcium [Mass/Vol] 10 mg/dL 8.4 - 10. 4 mg/dL Chloride [Moles/Vol] 101 mmol/L 98 - 10 7 mmol/L CO2 [Moles/Vol] 27 mmol/L 22 - 30 mmol/L Creatinine [Mass/Vol] 0.67 mg/dL 0.52 - 1.04 mg/dL GFR/1.73 sq M.predicted (S/P/Bld) [Vol rate/Area] - [facility] Comment on above: Calculation based on the Chronic Kidney Disease Epidemiology Collaboration (CKD-EPI) equation refit without adjustment for race Glucose [Mass/Vol] 87 mg/dL 70 - 100 mg/dL [facility] Interpretation and review of laboratory results Abnormal Potassium [Moles/Vol] 3.9 mmol/L 3.5 - 5.1 mmol/L Protein [Mass/Vol] 8.8 g/dL High 6.3 - 8.2 g/dL [facility] Sodium [Moles/Vol] 138 mmol/L 135 - 145 mmol/L Urea nitrogen [Mass/Vol] 9 mg/dL 7 - 17 mg/dL ED Nursing Noteon 06-05-2024 ED Nursing Note Reviewed discharge instructions and patient verbalized understanding. No further questions. Patient ambulated out of ED with strong steady gait. Respirations even and non labored. No acute distress. A&O x4. Cheyanne Shane RN 06/05/242039 Normal [facility] ED Nursing Note Patient notes that s he feels better since having a bowel movement and would prefer not to have a CT scan. She states PCP advised her to avoid further CT imaging due to excessive number of CT already been performed in the last 5 years. Patient declines a family history of Crohn's or UC and states has only had one rectal bleeding episode yesterday after having a bowel movement. She has a known history of hemorrhoids which she has treatments for at home. Patient states that she has a GI and has had colonoscopy for similar symptoms with no colitis noted. She states that she is taking two doses of miralax daily but has taken linzess in the past with relief. She declined Bentyl as it has caused headaches in the past without improvement of symptoms Cheyanne Shane RN 06/05/242012 Normal [facility] ED Nursing Note Patient to room 6 wi th c/o abdominal pain on the left side that started yesterday. Patient reports cramping pain with diarrhea. V/S obtained, call light within reach. Normal [facility] ED Provider Noteon ED Provider Note EMERGENCY DEPARTMENT ENCOUNTER Pt Name: Socorro Gonsales Birthdate 1995 Date of evaluation: 06/05/2024 ED Provider: Bartolo Batres MD CHIEF COMPLAINT Chief Complaint Patient presents with Abdominal Pain HISTORY OF PRESENT ILLNESS (Location/Symptom, Timing/Onset, Context/Setting, Quality, Duration, Modifying Factors, Severity) Note limiting factors. I wore appropriate PPE for the entirety of this encounter. HPI Socorro Gonsales is a 28 y.o. who presents to the emergency department with crampy left lower quadrant and left flank abdominal pain and diarrhea and dehydration Patient has an extensive GI history, she has gastroparesis, pancreatitis, takes Protonix daily. Past surgical history of cholecystectomy and appendectomy and partial hysterectomy and kidney surgery. Drinks occasionally does not smoke. Prefers to avoid all narcotics if possible. 5 days ago she started on Augmentin antibiotics for an ear infection in the right ear. Starting yesterday she developed watery diarrhea. No melena. Right ear pain is getting much better, left ear appears perfectly normal. No sore throat no nasal congestion no chest pain no cough no shortness of breath. No sick contacts. Starting yesterday she had watery diarrhea and left lower quadrant and left flank abdominal cramping. No right lower quadrant or right upper quadrant pain. Minimal left upper quadrant pain. No vaginal bleeding no vaginal discharge. Pain does not radiate to her back. Patient does have a history of pancreatitis but says this feels very different. She feels like she is dehydrated. No nausea or vomiting at any time. No fevers or chills at any time. Not tachycardic or febrile or hypoxic here in the ED. No dysuria urgency frequency or hematuria. No back pain/pain over the CVA regions. Nursing Notes were reviewed. Limitations to history: None Outside historians: None REVIEW OF SYSTEMS Review of Systems Pertinent positives and negatives as per HPI PAST MEDICAL HISTORY Past Medical History: Diagnosis Date Asthma 2000 Hiatal hernia with gastroesophageal reflux Pancreatitis 2019 ? accurate SURGICAL HISTORY Past Surgical History: Procedure Laterality Date ABDOMINAL ADHESION SURGERY 2020 and 2021 APPENDECTOMY 2020 CHOLECYSTECTOMY 2019 COLONOSCOPY 2020 EXPLORATORY LAPAROTOMY 2019 KIDNEY SURGERY PARTIAL HYSTERECTOMY 2021 TUBAL LIGATION CURRENT MEDICATIONS Previous Medications ACETAMINOPHEN EXTRA STRENGTH 500 MG TABLET Take 1,000 mg by mouth every 6 hours as needed. ALBUTEROL 108 (90 BASE) MCG/ACT INHALER Inhale 2 puffs every 6 hours as needed. CHOLESTYRAMINE LIGHT (PREVALITE) 4 G PACKET Take 1 packet (4 g) by mouth 2 times daily. FLUTICASONE (FLONASE) 50 MCG/ACT NASAL SPRAY 2 sprays in the morning. PANTOPRAZOLE (PROTONIX) 40 MG EC TABLET Take 1 tablet (40 mg) by mouth every morning (before breakfast). Do not crush, chew, or split. ALLERGIES Keflex [cephalexin], Morphine, Ondansetron, Seasonal ic [octacosanol], Codeine, Gabapentin, and Latex FAMILY HISTORY Family History Problem Relation Name Age of Onset Other Mother Ramya summer Good pastures synd 07/31 fall with ICH, on Dialysis age 48 No Known Problems Father no contact with No Known Problems Sister No Known Problems Brother SOCIAL HISTORY Social History Socioeconomic History Marital status: Significant Other Tobacco Use Smoking status: Former Types: Cigarettes Smokeless tobacco: Former Tobacco comments: Vape Use Vaping Use Vaping status: Every Day Substances: Nicotine Substance and Sexual Activity Alcohol use: Yes Comment: social Drug use: Never Social History Narrative Single, has one son and one dtr. Engage to [employer]. 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 Overall Financial Resource Strain (CARDIA) Difficulty of Paying Living Expenses: Not hard at all Food Insecurity: No Food Insecurity (01/13/2021) Received from [facility] Hunger Vital Sign Worried About Running Out of Food in the Last Year: Never true Ran Out of Food in the Last Year: Never true Transportation Needs: No Transportation Needs (01/13/2021) Received from [facility] PRAPARE - Transportation Lack of Transportation (Medical): No Lack of Transportation (Non-Medical): No Physical Activity: Sufficiently Active (02/16/2019) Received from [facility] Exercise Vital Sign Days of Exercise per Week: 5 days Minutes of Exercise per Session: 150+ min Stress: Stress Concern Present (02/16/2019) Received from [facility] (more content not included)... Normal [facility] HCG QUALITATIVE URINEon 05-10 Beta HCG ( test) Ql (U) Negative Normal Negative [facility] Comment on above: Result Comment: Elizabeth wong note: Very dilute urine specimens, as indicated by a low specific gravity, may not contain phlebotomy services representative levels of hCG. If is still suspected, a first morning urine specimen should be collected 48 hours later and tested. ORDER COMMENTS: is the most common reason for HCG in urine, although choriocarcinoma, hydatidiform mole, and certain nontrophoblastic malignancies also result in detectable urinary HCG levels. Sensitivity = 20mIU/mL. Performed By: #### L [id number] ####Machine Spreader: KELLY RODRIGES ([id number])[facility] [employer] (SWRLAB)[address] [place] [address] LIPASEon 06-05-2024 Lipase [Catalytic activity/Vol] 113 U/L Normal 23-300 [facility] Comment on above: Performed By: #### L [id number], LAB99 ####Machine Spreader: KELLY RODRIGES ([id number])[facility] [employer] (SWRL[employer])[address] [place] [address] Laboratory - Chemistry and C hemistry - challengeon 06-05-2024 Lipase [Catalytic activity/Vol] 113 U/L 23 - 300 U/L Laboratory - Chemistry and C hemistry - challengeOrdered By: Leno Daily on 06-05-2024 Beta HCG ( test) Ql Negative Negative Comment on above: Please note: Very di lute urine specimens, as indicated by a low specific gravity, may not contain phlebotomy services representative levels of hCG. If is still suspected, a first morning urine specimen should be collected 48 hours later and tested. Beta HCG ( test) Ql (U) is the most common reason for HCG in urine, although choriocarcinoma, hydatidiform mole, and certain nontrophoblastic malignancies also result in detectable urinary HCG levels. Sensitivity = 20mIU/mL. Lipase [Catalytic activity/V ol]on 06-05-2024 Interpretation and review of laboratory results Normal [facility] No Panel Informationon 06-05 [facility] No Panel InformationOrdered By: Leno Daily on 06-05-2024 Urinalysis complete panel (U )on 06-05-2024 Bilirubin Ql (U) Negative Negative mg/dL [facility] Clarity (U) Clear Clear [facility] Color (U) Colorless Lt. Yellow Glucose Ql (U) Normal Normal (<70) mg/dL Hemoglobin Ql (U) Negative Negative mg/dL [facility] Interpretation and review of laboratory results Abnormal Ketones (U) [Mass/Vol] Trace Abnormal Negative mg/dL Leukocyte esterase Test strip Ql (U) Negative Negative Reyes/uL Nitrite Ql (U) Negative Negative pH (U) 5.5 [pH] 5.0 - 8.0 pH Protein (U) [Mass/Vol] Negative Negative mg/dL Specific gravity (U) [Rel density] 1.009 1.005 - 1.030 Urobilinogen (U) [Mass/Vol] Normal Normal (0-1) mg/dL [facility] CNOVon 05-30-2024 CN Office Visit (UCWSTR ) -------- SOCORRO GONSALES ([id number]) 1995 F Date Time Provider Department 05/30/24 4:15 PM RENATE BLANDON [facility] During your visit today, we recorded the following information about you: Temperature Pulse Respiration Blood pressure 98.6 degrees 80/minute 18/minute 102/64 Weight 69.9 kg Renate Blandon APRN.CNP 05/30/2024 4:50 PM Signed This note was created using [employer]. Subjective Socorro Gonsales is a 28 year old female. 28 year old female with PMH asthma presents for illness. Acute onset yesterday Right ear pain +throat pain +enlarged lymph nodes Denies cough Denies accompanying eye, nose complaints. Denies SOB or dyspnea Denies abdominal pain Denies N/V/D Denies fever or chills Used Tylenol with no relief Denies tobacco usage Partial hysterectomy 2 years ago The history is provided by the patient. No agriculture scientist was used. Ear Pain This is a new problem. The current episode started yesterday. The problem occurs constantly. The problem has been gradually worsening. Associated symptoms include a sore throat and swollen glands. Pertinent negatives include no abdominal pain, anorexia, arthralgias, change in bowel habit, chest pain, chills, congestion, coughing, diaphoresis, fatigue, fever, headaches, joint swelling, myalgias, nausea, neck pain, numbness, rash, urinary symptoms, vertigo, visual change, vomiting or weakness. Nothing aggravates the symptoms. She has tried nothing for the symptoms. The treatment provided no relief. PAST MEDICAL HISTORY Diagnosis Date Anemia anxiety Asthma PAST SURGICAL HISTORY Procedure Laterality Date LAPAROSCOPY W/RMVL ADNEXAL STRUCTURES Bilateral 04/28/2018 l/s bilateral salpingectomy PAST SURGICAL HISTORY OF wisdom teeth PAST SURGICAL HISTORY OF 03/2020 exploratory laparoscopy VAGINAL HYSTERECTOMY 2021 ALLERGIES Codeine, Gabapentin, Latex, Seasonal Allergies, and Zofran [Ondansetron] MEDICATIONS albuterol HFA (PROVENTIL HFA, VENTOLIN HFA) 90 mcg/actuation inhaler Inhale 2 Puffs as instructed every 6 hours as needed for wheezing/shortness of breath. fluticasone (FLONASE) 50 mcg/actuation nasal spray Use 2 Sprays in each nostril once daily. Rinse mouth after use. pantoprazole DR (PROTONIX) 40 mg tablet Take 40 mg by mouth once daily. amoxicillin-clavulanate potassium (AUGMENTIN) 875-125 mg per tablet Take 1 tablet by mouth two times a day for 7 days. FAMILY HISTORY Problem Relation Age of Onset Heart Mother Seizures Mother Stroke Mother Multiple Sclerosis Mother Psychiatry Sister Manic Depression Hypertension Maternal Grandfather Breast Cancer Maternal Aunt Hypertension Maternal Uncle Social History Tobacco Use Smoking status: Former Types: Cigarettes Smokeless tobacco: Never Substance Use Topics Alcohol use: Yes Comment: rarely Drug use: No Review of Systems Constitutional: Negative for chills, diaphoresis, fatigue and fever. HENT: Positive for ear pain and sore throat. Negative for congestion, rhinorrhea, sinus pressure and sinus pain. Eyes: Negative for pain, discharge, redness and itching. Respiratory: Negative for apnea, cough, choking and chest tightness. Cardiovascular: Negative for chest pain. Gastrointestinal: Negative for abdominal pain, anorexia, change in bowel habit, diarrhea, nausea and vomiting. Musculoskeletal: Negative for arthralgias, joint swelling, myalgias and neck pain. Skin: Negative for rash. Allergic/Immunologic: Negative for environmental allergies, food allergies and immunocompromised state. Neurological: Negative for vertigo, weakness, numbness and headaches. Hematological: Negative for adenopathy. Does not bruise/bleed easily. Psychiatric/Behavioral: Negative for agitation and behavioral problems. Objective BP 102/64 Pulse 80 Temp 37 ?C (98.6 ?F) (Tympanic) Resp 18 Wt 69.9 kg (154 lb 1.6 oz) LMP 03/25/2022 SpO2 98% BMI 25.64 kg/m? Physical Exam Vitals and nursing note reviewed. Constitutional: General: She is not in acute distress. Appearance: Normal appearance. She is normal weight. She is not ill-appearing, toxic-appearing or diaphoretic. HENT: Head: Normocephalic and atraumatic. Right Ear: Ear canal and external ear normal. Left Ear: Ear canal and external ear normal. Nose: Nose normal. No congestion or rhinorrhea. Mouth/Throat: Mouth: Mucous membranes are moist. Pharynx: No oropharyngeal exudate or posterior oropharyngeal erythema. Eyes: General: Right eye: No discharge. Left eye: No discharge. Extraocular Movements: Extraocular movements intact. Conjunctiva/sclera: Conjunctivae normal. Pupils: Pupils are equal, round, and reactive to light. Cardiovascular: Rate and Rhythm: Normal rate and regular rhythm. Pulses: Normal pulses. Heart sounds: Normal heart sounds. No m (more content not included)... Normal [facility] CNOVon 05-15-2024 CNOV Office Visit (UCTR ) -------- SOCORRO GONSALES ([id number]) 1995 F Date Time Provider Department 05/15/24 10:00 AM DEO FELICIANO [facility] During your visit today, we recorded the following information about you: Temperature Pulse Respiration Blood pressure 98.5 degrees 70/minute 16/minute 102/62 Weight 68.9 kg Deo Feliciano MD 05/15/2024 11:23 AM Signed Patient presents with: Nasal Congestion: chest congestion, cough, bodyaches, headache and fever x 1 day HPI: Feeling sick since yesterday. Both of her children are diagnosed with pneumonia today. Positive symptoms: Cough, Nasal Congestion, Fever, Body Aches, Headache, Shortness of breath, Wheezing, Chest tightness, Sore throat, Malaise, Fatigue, Negative symptoms: Nausea, Vomiting, Diarrhea, OTC: Tylenol, flonase, vicks. Inhaler is . MEDICATIONS: Current Outpatient Medications Medication Sig fluticasone (FLONASE) 50 mcg/actuation nasal spray Use 2 Sprays in each nostril once daily. Rinse mouth after use. pantoprazole DR (PROTONIX) 40 mg tablet Take 40 mg by mouth once daily. albuterol HFA (PROVENTIL HFA, VENTOLIN HFA) 90 mcg/actuation inhaler Inhale 2 Puffs as instructed every 6 hours as needed for wheezing/shortness of breath. No current facility-administered medications for this visit. ALLERGIES: ALLERGIES Allergen Reactions Codeine Rash, Itching Gabapentin Other: See Comments, Unknown [place] like Heart was racing Latex Rash, Itching Seasonal Allergies Other: See Comments nasal congestion Zofran [Ondansetron] Itching Itching and redness in arm when given Zofran IV VITALS: BP 102/62 Pulse 70 Temp 36.9 ?C (98.5 ?F) Resp 16 Wt 68.9 kg (151 lb 14.4 oz) LMP 03/25/2022 SpO2 98% BMI 25.28 kg/m? PHYSICAL EXAM: GEN: ill appearing HEENT: PERRL, EOMI, conjunctiva clear Ears: canals clear. TMs without erythema, bulge, or effusion Sinuses: non-tender frontal sinus, non-tender maxillary sinuses Throat: moist mucous membranes, uvular palatal petechia, mild erythema, no exudate Neck: supple, no thyromegaly, no lymphadenopathy HEART: regular rate and rhythm, no murmurs LUNGS: mild scattered wheezes, no crackles, no increased WOB ASSESSMENT/PLAN: 1. Wheezing - ICD9: 786.07, ICD10: R06.2 (primary diagnosis) 2. Influenza-like illness - ICD9: 487.1, ICD10: J11.1 3. Mild intermittent asthma with acute exacerbation - ICD9: 493.92, ICD10: J45.21 - XR CHEST 2V FRONTAL/LAT - no obvious pneumonia. Radiology interpretation is pending. The patient will be notified if there is a significant finding in the report not discussed at the time of the visit. - COVID AND INFLUENZA A/B AND RSV PCR, ROUTINE - ALBUTEROL SULFATE HFA 90 MCG/ACTUATION AEROSOL INHALER - PREDNISONE 10 MG TABLET taper Follow up with worsening cough, worsening shortness of breath, increasing chest pain, or late onset fever. Deo Feliciano MD Allergies As of Date: 05/15/2024 Noted Allergy Reaction CODEINE 05/27/2017 2 - Rash 9 - Itching GABAPENTIN 02/23/2020 14 - Other: See Comments 16 - Unknown Comments: [place] like Heart was racing LATEX 05/27/2017 2 - Rash 9 - Itching SEASONAL ALLERGIES 11/28/2015 14 - Other: See Comments Comments: nasal congestion ZOFRAN (ONDANSETRON) 04/23/2020 9 - Itching Comments: Itching and redness in arm when given Zofran IV Date Reviewed: 05/15/2024 Reviewed by: Sravani Barker MA - Fully Assessed Reason for Visit: Nasal Congestion [235] Cmt: chest congestion, cough, bodyaches, headache and fever x 1 day Primary Visit Diagnosis:Wheezing [R06.2] Other Visit Diagnoses:Influenza-like illness [J11.1] Mild intermittent asthma with acute exacerbation [J45.21] Order(s):XR CHEST 2V FRONTAL/LAT [[id number]] Order #: [id number] FUTURE COVID AND INFLUENZA A/B AND RSV PCR, ROUTINE [SQCVFLRS] Order #: [id number]. #:[id number] predniSONE (DELTASONE) 10 mg tabletTake 5 tablets by mouth once daily for 1 day, THEN 4 tablets once daily for 1 day, THEN 3 tablets once daily for 1 day, THEN 2 tablets once daily for 1 day, THEN 1 tablet once daily for 1 day.Disp: 15 tabletRfl: 0 albuterol HFA (PROVENTIL HFA, VENTOLIN HFA) 90 mcg/actuation inhalerInhale 2 Puffs as instructed every 6 hours as needed for wheezing/shortness of breath.Disp: 1 EachRfl: 0 Prescriptions as of 05/15/2024 - predniSONE (DELTASONE) 10 mg tablet Take 5 tablets by mouth once daily for 1 day, THEN 4 tablets once daily for 1 day, THEN 3 tablets once daily for 1 day, THEN 2 tablets once daily for 1 day, THEN 1 tablet once daily for 1 day. - albuterol HFA (PROVENTIL HFA, VENTOLIN HFA) 90 mcg/actuation inhaler Inhale 2 Puffs as instructed every 6 hours as needed for wheezing/shortness of breath. - fluticasone (FLONASE) 50 mcg/actuation nasal spray Use 2 Sprays in each nostril once daily. Rinse mouth after use. - pantoprazole D (more content not included)... Normal [facility] COVID AND INFLUENZA A/B AND RSV PCR, ROUTINEon 05-15-2024 SARS-CoV-2 (COVID-19) RNA ALLISON+probe Ql (Unsp spec) SARS-COV-2 (AGENT OF COVID-19) RNA: Not detected INFLUENZA A RNA: Not detected INFLUENZA B RNA: Not detected RESPIRATORY SYNCYTIAL VIRUS (RSV) RNA: Not detected Normal [facility] Comment on above: Performed By: #### C VFLRS ####[facility] LABCLIA [id number] [place] [address] [place] XR CHEST 2V FRONTAL/LATon XR CHEST 2V FRONTAL/LAT * * *Final Report* * * DATE OF EXAM: May 15 2024 11:16AM WOX [id number] - XR CHEST 2V FRONTAL/LAT / PROCEDURE REASON: multiple diagnoses * * * * Physician Interpretation * * * * EXAMINATION: CHEST RADIOGRAPH (2 VIEW FRONTAL and LATERAL) CLINICAL HISTORY: Wheezing Influenza-like illness MQ: XC2_6 EXAM DATE/TIME: 05/15/2024 11:16 AM COMPARISON: Chest radiograph 07/08/2023. RESULT: Lines, tubes, and devices: None. Lungs and pleura: No consolidation. No lung mass. No pleural effusion. No pneumothorax. Cardiomediastinal silhouette: Normal cardiomediastinal silhouette. Bones and soft tissues: Unremarkable. IMPRESSION: No acute radiographic abnormality. Purchasing Associate: PSCB Transcribe Date/Time: May 15 2024 11:27A Dictated by : JOSHUA WHITLOCK MD This examination was interpreted and the report reviewed and electronically signed by: JOSHUA WHITLOCK MD on May 15 2024 11:27AM EST [id number] Normal [facility] XR Chest PA and Lateralon IMPRESSION: No acute radiographic abnormality. Purchasing Associate: CIPRIANO Transcribe Date/Time: May 15 2024 11:27A Dictated by : JOSHUA WHITLOCK MD This examination was interpreted and the report reviewed and electronically signed by: JOSHUA WHITLOCK MD on May 15 2024 11:27AM EST DIVISION OF RADIOLOGY * * *Final Report* * * DATE OF EXAM: May 15 2024 11:16AM WOX [id number] - XR CHEST 2V FRONTAL/LAT / PROCEDURE REASON: multiple diagnoses * * * * Physician Interpretation * * * * EXAMINATION: CHEST RADIOGRAPH (2 VIEW FRONTAL & LATERAL) CLINICAL HISTORY: Wheezing Influenza-like illness MQ: XC2_6 EXAM DATE/TIME: 05/15/2024 11:16 AM COMPARISON: Chest radiograph 07/08/2023. RESULT: Lines, tubes, and devices: None. Lungs and pleura: No consolidation. No lung mass. No pleural effusion. No pneumothorax. Cardiomediastinal silhouette: Normal cardiomediastinal silhouette. Bones and soft tissues: Unremarkable. DIVISION OF RADIOLOGY Provider, [facility] - 05/15/2024 * * *Final Report* * * DATE OF EXAM: May 15 2024 11:16AM WOX [id number] - XR CHEST 2V FRONTAL/LAT / PROCEDURE REASON: multiple diagnoses * * * * Physician Interpretation * * * * EXAMINATION: CHEST RADIOGRAPH (2 VIEW FRONTAL & LATERAL) CLINICAL HISTORY: Wheezing Influenza-like illness MQ: XC2_6 EXAM DATE/TIME: 05/15/2024 11:16 AM COMPARISON: Chest radiograph 07/08/2023. RESULT: Lines, tubes, and devices: None. Lungs and pleura: No consolidation. No lung mass. No pleural effusion. No pneumothorax. Cardiomediastinal silhouette: Normal cardiomediastinal silhouette. Bones and soft tissues: Unremarkable. IMPRESSION IMPRESSION: No acute radiographic abnormality. Purchasing Associate: CIPRIANO Transcribe Date/Time: May 15 2024 11:27A Dictated by : JOSHUA WHITLOCK MD This examination was interpreted and the report reviewed and electronically signed by: JOSHUA WHITLOCK MD on May 15 2024 11:27AM EST [facility] Radiology Study observation (narrative) [facility] XR Chest PA and LateralOrder ed By: [facility] Provider on 05-15-2024 [facility] Office Visiton 04-25-2024 Follow-up visit [id number] Socorro Gonsales 1995 F Date Provider Department Center 04/25/2024 [id number] DE [facility] None Family History Problem Relation Age of Onset Other Mother Comments: Good pastures synd 07/31 fall with ICH, on Dialysis age 48 No Known Problems Father Comments: no contact with No Known Problems Sister No Known Problems Brother Family Status - Relation Status Age at Mother Father Alive Sister Alive Brother Alive Level of Service:79115 OR OFFICE/OUTPATIENT ESTABLISHED MOD MDM 30 MIN Reason for Visit and Comments: Follow-up [554841] - Lump on chest LT side, last seen 2022 [facility] 04-20-2024 36 Name of Caller: Socorro Contact Reason for Appointment: Patient requesting to schedule appointment with Dr De Los Santos. Patient was last seen by Dr De Los Santos on 07/15/23. Patient stated that there is a new lump in her breast and it is increasingly harder. Patient asking for a Wednesday or Wednesday appointment. Please call patient back to advise. Office Name: General Surgery Medication Refills need, if any: N/A Medication Name: N/A [facility] 04-05-2024 36 Called pt to relay message, pt phone signal busy. Called pt emergency contact no/answer, unable to left message, Voicemail was full. Thank you [facility] 04-04-2024 36 Agree with recommendations. Sound like hemorrhoids. Please reach out to Socorro and confirm where she had colonoscopy done. [facility] 04-02-2024 36 S: Patient spoke wit h CAC nurse regarding rectal bleeding B: Onset of symptoms/concern yesterday A: Patient reports noticing bright red blood on TP when wiping after having a bowel movement. Happened once yesterday and once today. Has had it in the past but wanted to call to make sure that it is ok. Reports she is always constipation but no more than normal. Has been taking Miralax and Colace daily as recommended. Denies abdominal pain. No blood in toilet bowl. No blood clots. R: Discussed can try sitz bath states she has done on this previously after giving . Could also try Tucks pad. Patient understands care advice. No further needs at this time. Patient instructed to call back with new/worsening symptoms or if bleeding continues. Message also forwarded to office for review. Reason for Disposition Rectal bleeding is minimal (e.g., blood just on toilet paper, a few drops in toilet bowl) Protocols used: Rectal [id number] Normal [facility] SOCORRO GONSALES ([id number]) 1995 F Date Time Provider Department 03/16/24 NEPTALI GONZÁLES [facility] During your visit today, we recorded the following information about you: Mary Kay Mario 03/16/2024 1:22 PM Signed Gastric Emptying Study?Yes Care Everywhere Has the patient had a Smart Pill? No When was your last EGD? 2020 Has the patient had Gastric Bypass? No Has the patient had a Gastric Sleeve? No Has the patient had a Manuel or Hiatal Hernia Repair? No All done at [facility]: Gallbladder: 2020 Appendix: 2020 Adhesion removal:2020 and 2021 Hysterectomy: 2021 Has the patient had POP/Pyloroplasty? No Is the patient currently on TPN? No Does the patient have a G/J Tube? No Referring Provider: Neptali Sesay MD, 03/16/2024 1:26 PM Signed EMPTIES: Me, surgery, behavioral and nutrition, egg is in Mary Kay Mario 03/17/2024 9:45 AM Signed Left VM for patient to call office to schedule GP Team appointments Cha Gonzales 03/20/2024 8:32 AM Signed Patient returned call to schedule Dorcas Nunez RN 03/20/2024 12:57 PM Signed patient on miralax BID evaluate at [facility] SYLVIA Gutiérrez Rose M 03/21/2024 3:55 PM Signed Left VM for patient to call office to schedule with GP Team Mary Kay Mario 03/24/2024 2:20 PM Signed Patient is scheduled with [facility] GP Team Allergies As of Date: 03/16/2024 Noted Allergy Reaction CODEINE 05/27/2017 2 - Rash 9 - Itching GABAPENTIN 02/23/2020 14 - Other: See Comments 16 - Unknown Comments: [place] like Heart was racing LATEX 05/27/2017 2 - Rash 9 - Itching SEASONAL ALLERGIES 11/28/2015 14 - Other: See Comments Comments: nasal congestion ZOFRAN (ONDANSETRON) 04/23/2020 9 - Itching Comments: Itching and redness in arm when given Zofran IV Date Reviewed: 03/13/2024 Reviewed by: Nisha Tomas LPN - Fully Assessed Reason for Visit: Appointment [186] Primary Visit Diagnosis:Gastroparesis [K31.84] Order(s):EGG (ELECTROGASTROGRAPHY) [[id number]] Order #: [id number] Prescriptions as of 03/24/2024 - benzonatate (TESSALON PERLES) 100 mg capsule Take 1 capsule by mouth three times a day as needed for cough. - Brompheniramine-Pseudoep h-DM (BROMFED DM) 2-30-10 mg/5 mL syrup Take 10 mL by mouth four times a day as needed. - fluticasone (FLONASE) 50 mcg/actuation nasal spray Use 2 Sprays in each nostril once daily. Rinse mouth after use. - pantoprazole DR (PROTONIX) 40 mg tablet Take 40 mg by mouth once daily. - Brompheniramine-Pseudoep h-DM (BROMFED DM) 2-30-10 mg/5 mL syrup Take 10 mL by mouth four times a day as needed. - fluticasone (FLONASE) 50 mcg/actuation nasal spray Use 2 Sprays in each nostril once daily. Rinse mouth after use. - albuterol HFA (PROVENTIL HFA, VENTOLIN HFA) 90 mcg/actuation inhaler Inhale 2 Puffs as instructed every 6 hours as needed for wheezing/shortness of breath. Problem List As Of Date 03/16/2024 Noted Resolved Late care [O09.30] 11/28/2015 06/03/2016 Family history of defect [Z82.79] 11/28/2015 06/03/2016 Encounter for supervision of other normal pregn*01/22/2016 06/03/2016 Poor social situation [Z60.9] 06/03/2016 04/29/2018 Short interval between pregnancies affecting pr*05/27/2017 03/04/2018 Tobacco use disorder complicating , ch*05/27/2017 05/03/2019 History of anxiety [Z86.59] 05/27/2017 Patient request for diagnostic testing [Z01.89] 05/27/2017 06/02/2017 with uncertain dates, antepartum [Z34*05/27/2017 03/04/2018 Positive GBS test [B95.1] 12/30/2017 03/04/2018 Encounter Status:Closed by MARY KAY MARIO on 03/16/24 Normal [facility] Nai 03-13-2024 CNOV Office Visit (UCWSTR ) -------- SOCORRO GONSALES ([id number]) 1995 F Date Time Provider Department 03/13/24 5:00 PM RENATE BLANDON During your visit today, we recorded the following information about you: Temperature Pulse Respiration Blood pressure 98.8 degrees 74/minute 18/minute 102/64 Weight 67.9 kg Renate BlandonYAMILETH 03/13/2024 5:09 PM Signed This note was created using NoteWriter. Subjective Socorro Gonsales is a 28 year old female. 28 year old female with PMH asthma, anemia, and anxiety presents for illness. Acute onset of symptoms one week ago +sore throat +bilateral ear pain +nasal congestion + cough Seen here on 03/09/24 for similar Diagnosed with viral infection. RX Martita Nuñez Endorses that symptoms are worsening. +history of tobacco usage The history is provided by the patient. No agriculture scientist was used. Ear Pain This is a new problem. The current episode started in the past 7 days. The problem occurs constantly. The problem has been gradually worsening. Associated symptoms include congestion, coughing, fatigue, headaches, a sore throat and swollen glands. Pertinent negatives include no abdominal pain, anorexia, arthralgias, change in bowel habit, chest pain, chills, diaphoresis, fever, joint swelling, myalgias, nausea, neck pain, numbness, rash, urinary symptoms, vertigo, visual change, vomiting or weakness. Nothing aggravates the symptoms. Treatments tried: Zeinabsalon Joaquin. The treatment provided no relief. PAST MEDICAL HISTORY No date: Anemia No date: anxiety No date: Asthma PAST SURGICAL HISTORY 04/28/2018: LAPAROSCOPY W/RMVL ADNEXAL STRUCTURES; Bilateral Comment: l/s bilateral salpingectomy No date: PAST SURGICAL HISTORY OF Comment: wisdom teeth 03/2020: PAST SURGICAL HISTORY OF Comment: exploratory laparoscopy 2021: VAGINAL HYSTERECTOMY ALLERGIES Codeine, Gabapentin, Latex, Seasonal Allergies, and Zofran [Ondansetron] MEDICATIONS benzonatate (TESSALON PERLES) 100 mg capsule Take 1 capsule by mouth three times a day as needed for cough. fluticasone (FLONASE) 50 mcg/actuation nasal spray Use 2 Sprays in each nostril once daily. Rinse mouth after use. pantoprazole DR (PROTONIX) 40 mg tablet Take 40 mg by mouth once daily. albuterol HFA (PROVENTIL HFA, VENTOLIN HFA) 90 mcg/actuation inhaler Inhale 2 Puffs as instructed every 6 hours as needed for wheezing/shortness of breath. amoxicillin-clavulanate potassium (AUGMENTIN) 875-125 mg per tablet Take 1 tablet by mouth two times a day for 7 days. predniSONE (DELTASONE) 10 mg tablet Take 4 tabs daily for 3 days, then 2 tabs daily for 3 days, then 1 tab daily for 3 days with food. Brompheniramine-Pseudoep h-DM (BROMFED DM) 2-30-10 mg/5 mL syrup Take 10 mL by mouth four times a day as needed. (Patient not taking: Reported on 11/21/2023) Brompheniramine-Pseudoep h-DM (BROMFED DM) 2-30-10 mg/5 mL syrup Take 10 mL by mouth four times a day as needed. (Patient not taking: Reported on 10/19/2023) fluticasone (FLONASE) 50 mcg/actuation nasal spray Use 2 Sprays in each nostril once daily. Rinse mouth after use. (Patient not taking: Reported on 10/19/2023) FAMILY HISTORY Problem Relation Age of Onset Heart Mother Seizures Mother Stroke Mother Multiple Sclerosis Mother Psychiatry Sister Manic Depression Hypertension Maternal Grandfather Breast Cancer Maternal Aunt Hypertension Maternal Uncle Social History Tobacco Use Smoking status: Former Years: 3 Types: Cigarettes Smokeless tobacco: Never Substance Use Topics Alcohol use: Yes Comment: rarely Drug use: No Review of Systems Constitutional: Positive for fatigue. Negative for chills, diaphoresis and fever. HENT: Positive for congestion, ear pain, postnasal drip, rhinorrhea, sinus pressure, sinus pain and sore throat. Negative for ear discharge. Eyes: Negative for photophobia, pain, discharge, redness and itching. Respiratory: Positive for cough. Negative for apnea, choking and chest tightness. Cardiovascular: Negative for chest pain. Gastrointestinal: Negative for abdominal pain, anorexia, change in bowel habit, nausea and vomiting. Musculoskeletal: Negative for arthralgias, joint swelling, myalgias and neck pain. Skin: Negative for color change, pallor and rash. Allergic/Immunologic: Positive for environmental allergies. Negative for food allergies and immunocompromised state. Neurological: Positive for headaches. Negative for dizziness, vertigo, facial asymmetry, weakness and numbness. Hematological: Negative for adenopathy. Does not bruise/bleed easily. Psychiatric/Behavioral: Negative for agitation and behavioral problems. Objective BP 102/64 Pulse 74 Temp 37.1 ?C (98.8 ?F) (Tympanic) Resp 18 Wt 67.9 kg (149 lb 11.1 oz) LMP 03/25/2022 SpO2 100% BMI 24.91 kg/m? Physical Exam Vit (more content not included)... Normal [facility] CNOVon 03-09-2024 CNOV Office Visit (UCTR ) -------- SOCORRO GONSALES ([id number]) 1995 F Date Time Provider Department 03/09/24 2:00 PM JAGUAR PERSON [facility] During your visit today, we recorded the following information about you: Temperature Pulse Respiration Blood pressure 98.3 degrees 73/minute 18/minute 112/77 Weight 69.5 kg Jaguar Person, SATHISH.ENGINE DISPATCHER 03/09/2024 2:20 PM Signed Subjective HPI Nontoxic-appearing female presents to urgent care with chief complaint of upper respiratory tract like infection. Duration of symptoms 2 days. Associated symptoms sore throat, body aches, nasal congestion, nasal discharge and nonproductive cough. Patient denies the use of any [id number]-[id number] medications or home remedies for symptom management. Patient states recent sick contacts with similar signs and symptoms. Patient denies any productive cough, fever, chest pain, shortness of breath, pleuritic pain, rash, abdominal pain, nausea, vomiting or change in bowel or bladder habit. Past medical history prescription medications allergies reviewed. Denies chance of . Is not breast-feeding. .Patient presents with: Nasal Congestion: ST, [place], bodyaches, runny nose x2 days PAST MEDICAL HISTORY No date: Anemia No date: anxiety No date: Asthma PAST SURGICAL HISTORY 04/28/2018: LAPAROSCOPY W/RMVL ADNEXAL STRUCTURES; Bilateral Comment: l/s bilateral salpingectomy No date: PAST SURGICAL HISTORY OF Comment: wisdom teeth 03/2020: PAST SURGICAL HISTORY OF Comment: exploratory laparoscopy 2021: VAGINAL HYSTERECTOMY ALLERGIES Codeine, Gabapentin, Latex, Seasonal Allergies, and Zofran [Ondansetron] MEDICATIONS fluticasone (FLONASE) 50 mcg/actuation nasal spray Use 2 Sprays in each nostril once daily. Rinse mouth after use. pantoprazole DR (PROTONIX) 40 mg tablet Take 40 mg by mouth once daily. albuterol HFA (PROVENTIL HFA, VENTOLIN HFA) 90 mcg/actuation inhaler Inhale 2 Puffs as instructed every 6 hours as needed for wheezing/shortness of breath. Brompheniramine-Pseudoep h-DM (BROMFED DM) 2-30-10 mg/5 mL syrup Take 10 mL by mouth four times a day as needed. (Patient not taking: Reported on 11/21/2023) Brompheniramine-Pseudoep h-DM (BROMFED DM) 2-30-10 mg/5 mL syrup Take 10 mL by mouth four times a day as needed. (Patient not taking: Reported on 10/19/2023) fluticasone (FLONASE) 50 mcg/actuation nasal spray Use 2 Sprays in each nostril once daily. Rinse mouth after use. (Patient not taking: Reported on 10/19/2023) FAMILY HISTORY Problem Relation Age of Onset Heart Mother Seizures Mother Stroke Mother Multiple Sclerosis Mother Psychiatry Sister Manic Depression Hypertension Maternal Grandfather Breast Cancer Maternal Aunt Hypertension Maternal Uncle Social History Tobacco Use Smoking status: Former Years: 3 Types: Cigarettes Smokeless tobacco: Never Substance Use Topics Alcohol use: Yes Comment: rarely Drug use: No BP 112/77 Pulse 73 Temp 36.8 ?C (98.3 ?F) Resp 18 Wt 69.5 kg (153 lb 3.5 oz) LMP 03/25/2022 SpO2 100% BMI 25.50 kg/m? Review of Systems Constitutional: Positive for malaise/fatigue. Negative for chills and fever. HENT: Positive for congestion and sore throat. Negative for ear discharge, ear pain and sinus pain. Eyes: Negative for blurred vision, pain, discharge and redness. Respiratory: Positive for cough. Negative for hemoptysis, sputum production, shortness of breath, wheezing and stridor. Cardiovascular: Negative for chest pain. Gastrointestinal: Negative for abdominal pain, diarrhea, nausea and vomiting. Musculoskeletal: Positive for myalgias. Skin: Negative for itching and rash. Neurological: Positive for headaches. Negative for dizziness. Objective Physical Exam Constitutional: General: She is not in acute distress. Appearance: She is not diaphoretic. HENT: Head: Normocephalic. Jaw: No trismus, tenderness, swelling or pain on movement. Nose: Congestion present. Mouth/Throat: Mouth: Mucous membranes are moist. Pharynx: Oropharynx is clear. Uvula midline. No pharyngeal swelling, oropharyngeal exudate, posterior oropharyngeal erythema or uvula swelling. Eyes: Conjunctiva/sclera: Conjunctivae normal. Pupils: Pupils are equal, round, and reactive to light. Cardiovascular: Rate and Rhythm: Normal rate and regular rhythm. Heart sounds: Normal heart sounds. Pulmonary: Effort: Pulmonary effort is normal. No tachypnea, accessory muscle usage or respiratory distress. Breath sounds: Normal breath sounds. No stridor. No wheezing, rhonchi or rales. Abdominal: General: There is no distension. Palpations: Abdomen is soft. Tenderness: There is no abdominal tenderness. There is no guarding or rebound. Musculoskeletal: Cervical back: Normal range of motion and neck supple. No edema, erythema, rigidity or tenderness. No pain with m (more content not included)... Normal [facility] Office Visiton 03-08-2024 Follow-up visit [id number] Socorro Gonsales 1995 F Date Provider Department Center 03/08/2024 [id number] None Family History Problem Relation Age of Onset Other Mother Comments: Good pastures synd 07/31 fall with ICH, on Dialysis age 48 No Known Problems Father Comments: no contact with No Known Problems Sister No Known Problems Brother Family Status - Relation Status Age at Mother Father Alive Sister Alive Brother Alive Level of Service:23985 OR OFFICE/OUTPATIENT ESTABLISHED MOD MDM 30 MIN Reason for Visit and Comments: Follow-up [065105] - Discuss GES results. Normal [facility] Progress Noteon 03-08-2024 Progress Note [facility] [address] [facility] [address] Dept: [phone] Dept Loc: [phone] Visit type: Established Reason for Visit: Follow-up (Discuss GES results.) Assessment and Plan Problem List Items Addressed This Visit Gastroparesis Other Visit Diagnoses Nausea and vomiting, unspecified vomiting type - Primary Chronic abdominal pain History of esophagogastroduodenosco py (EGD) History of colonoscopy -Symptoms are acute on chronic. 4 hour GES shows delayed motility, unclear etiology. -Will refer to Dr. Gonzáles for further evaluation of gastroparesis in 28 y.o. female. -Continue Gastroparesis diet, has seen dietitian. -Symptoms have been acute on chronic, states these are similar to what she was experiencing starting in 2019 and has been evaluated with EGD, colonoscopy, gastric emptying study, CT. EGD unremarkable. Colonoscopy with probable microscopic colitis. Previous GES shows borderline slow gastric emptying. -Continue Pantoprazole 40 mg daily. -Use Prevalite. -She is also s/p multiple abdominal surgery with lysis of adhesions. This may be a component of her abdominal pain. -Follow up in 3 months. No follow-ups on file. Advised patient to call office with new or worsening symptoms, questions, or concerns. Patient verbalized understanding and agreement of plan. Richardson Quintanilla is a 28 y.o. female who presents as a follow up. She was referred by Dr. Jean Odonnell DO regarding Abdominal pain, epigastric. She is new to provider but has been evaluated in the office before. Last office visit was 05/02/2021 with Naty Moran PA-C regarding generalized abdominal pain; nausea and vomiting; Lymphocytic colitis. HPI Has had acute chronic epigastric pain since late 2018 associated with nausea and emesis. Since seeing dietitian has had some better symptom control. S/p 05/04/2022 with Total Laparoscopic Hysterectomy, Cystoscopy. S/p Laparoscopy lysis of adhesions and laparoscopic appendectomy 03/26/2021. S/p cholecystectomy 2018-. S/p tubal ligation 2017. S/p surgeries has felt better, but since 05/2023 has recurrence of abdominal pain. This occurs postprandially. Can be made worse with movement, such as bending over or exercising. Has been nauseous with emesis. Last episode was yesterday. Denies hematemesis or coffee ground emesis. This is similar to last occurrence evaluated by Naty. Is taking pantoprazole 40 mg daily. Has had chronic lower abdominal pain since 2019. Has a BM once a day. Denies constipation or diarrhea. Denies hematochezia or dark stools. Weight is fluctuating, stable. EtOH: None. Tobacco: Vape. NSAIDs: Rarely PRN. Illicit drugs: None. Family History of Colon Cancer: None. Prior EGD/Colonoscopy: EGD 2020. Colonoscopy 2019. Prior Abdominal Surgery: Multiple as in HPI. Review of Systems Constitutional: Negative for appetite change, fatigue, fever and unexpected weight change. HENT: Negative for trouble swallowing. Respiratory: Negative for cough, choking and shortness of breath. Cardiovascular: Negative for chest pain. Gastrointestinal: Positive for abdominal pain, constipation, diarrhea, nausea and vomiting. Negative for abdominal distention, anal bleeding, blood in stool and rectal pain. Skin: Negative for color change, pallor and rash. Allergies Allergen Reactions Keflex [Cephalexin] Nausea And Vomiting Morphine Ondansetron Itching Itching and redness in arm when given Zofran IV Seasonal Ic [Octacosanol] Codeine Itching and Rash Gabapentin Other [place] like Heart was racing [place] like Heart was racing Latex Itching, Rash and Hives Other reaction(s): Hives Outpatient Medications Prior to Visit Medication Sig Dispense Refill Acetaminophen Extra Strength 500 MG tablet Take 1,000 mg by mouth every 6 hours as needed. albuterol 108 (90 Base) MCG/ACT inhaler Inhale 2 puffs every 6 hours as needed. cholestyramine light (Prevalite) 4 g packet Take 1 packet (4 g) by mouth 2 times daily. 60 packet 11 fluticasone (Flonase) 50 MCG/ACT nasal spray 2 sprays in the morning. pantoprazole (ProtoNix) 40 MG EC tablet Take 1 tablet (40 mg) by mouth every morning (before breakfast). Do not crush, chew, or split. 90 tablet 1 No facility-administered medications prior to visit. Patient Active Problem List Diagnosis Date Noted Date Diagnosed Hiatal hernia with gastroesophageal reflux Priority: Medium Gastroparesis 11/29/2023 Priority: Medium Chronic constipation 07/27/2019 YVONNE (generalized anxiety disorder) 07/27/2019 PFO (patent foramen ovale) 05/14/2019 Asthma 03/05/2017 Allergic rhinitis 03/05/2017 Social History Tobacco Use Smoking status: Former Types: Cigarettes Smokeless tobacco: Former Tobacco comments: Vape Use Substance Use Topics Alcohol use: Yes Comment: social Family His (more content not included)... [facility] [place] Stomach Views for gastric emptying solid phase W radionuclide Christi 03-02-2024 Abnormally delayed gastric emptying following solid meal. Report Dictated on Electronically Signed By: Scooter Rebollar MD Electronically Signed Date/Time: 03/02/2024 12:50 PM EDT [facility] Patient Name: SOCORRO ORELLANA : 1995 Exam Date/Time: 03/02/2024 12:47 Procedure: NM GASTRIC EMPTYING SOLID Ordering Provider: GUNDERSON JONATHAN Reason For Exam: NAUSEA AND VOMITING SOLID PHASE GASTRIC EMPTYING STUDY CLINICAL INDICATION: Nausea and vomiting The patient was given a standard meal of 1.1 millicurie of technetium-99m sulfur colloid prepared with egg. Anterior and posterior images over the abdomen were obtained up to four hours after ingestion. VINCE activity curves over the stomach were then calculated. COMPARISON: None FINDINGS: At one hour, there is 85 percent of original activity within the stomach (normal between 30-90% retention). At two hours after ingestion, 61 percent of original activity remains within the stomach (normal 60% or less). At four hours after ingestion, 19 percent of original activity remains within the stomach (normal 10 percent or less). [facility] Scooter Rebollar MD - 03/02/2024 Patient Name: SOCORRO GONSALES : 1995 Exam Date/Time: 03/02/2024 12:47 Procedure: NM GASTRIC EMPTYING SOLID Ordering Provider: GUNDERSON JONATHAN Reason For Exam: NAUSEA AND VOMITING SOLID PHASE GASTRIC EMPTYING STUDY CLINICAL INDICATION: Nausea and vomiting The patient was given a standard meal of 1.1 millicurie of technetium-99m sulfur colloid prepared with egg. Anterior and posterior images over the abdomen were obtained up to four hours after ingestion. VINCE activity curves over the stomach were then calculated. COMPARISON: None FINDINGS: At one hour, there is 85 percent of original activity within the stomach (normal between 30-90% retention). At two hours after ingestion, 61 percent of original activity remains within the stomach (normal 60% or less). At four hours after ingestion, 19 percent of original activity remains within the stomach (normal 10 percent or less). IMPRESSION: Abnormally delayed gastric emptying following solid meal. Report Dictated on Electronically Signed By: Scooter Rebollar MD Electronically Signed Date/Time: 03/02/2024 12:50 PM EDT Radiology Study observation (narrative) [facility] Stomach Views for gastric emptying solid phase W radionuclide POOrdered By: Scooter Rebollar on 03-02-2024 Progress Noteon 03-02-2024 Progress Note 4 hour gastric empty ing study shows delayed gastric emptying. Will discuss at follow up 03/08/2024 regarding next steps. Normal [facility] Office Visiton 02-23-2024 Follow-up visit [id number] Socorro Gonsales Maribell 1995 F Date Provider Department Center 02/23/2024 [id number] CHUA [facility] Family History Problem Relation Age of Onset Other Mother Comments: Good pastures synd 07/31 fall with ICH, on Dialysis age 48 No Known Problems Father Comments: no contact with No Known Problems Sister No Known Problems Brother Family Status - Relation Status Age at Mother Father Alive Sister Alive Brother Alive Level of Service:[id number] OR OFFICE/OUTPATIENT ESTABLISHED MOD MDM 30 MIN Reason for Visit and Comments: Follow-up [504084] - New to provider,establish care ER Follow-up [831] - For abdominal pain, mass was found Normal [facility] Progress Noteon 02-23-2024 Progress Note [facility] [address] [place] [address] [address] [facility] [address] Visit type: Established Patient Reason for Visit: Follow-up (New to provider,establish care) and ER Follow-up (For abdominal pain, mass was found) Assessment / Plan: Socorro was seen today for follow-up and er follow-up. Diagnoses and all orders for this visit: LUQ abdominal pain (Primary) Comments: Probable constipation, trial of Questran 4 Post cholecystectomy syndrome Gastroparesis Comments: Recurrent, await GI study Psoas muscle strain, right, sequela Comments: Symptomatic, observe for discussed symptoms. Chronic abdominal pain Comments: Unsure of etiology follow-up with GI Mild asthma without complication, unspecified whether persistent Comments: Stable, continue Flonase and albuterol Hiatal hernia with gastroesophageal reflux Comments: Very stable, continue Protonix and urged vaping cessation Other orders - cholestyramine light (Prevalite) 4 g packet; Take 1 packet (4 g) by mouth 2 times daily. 35 Minutes spent on reviewing pertinent history, patient interview, physical exam, discussion of diagnosis and treatment and work-up options. Subjective: Patient ID: Socorro Gonsales is a 28 y.o. female. HPI patient presents to the office for evaluation for left upper quadrant abdominal pain after going to the ER again for bloating and a sense of constipation. Recent CT of the abdomen at [place] was done also. Repeat study a few days ago on February 15 showed possible inflammatory change on the right psoas muscle. Her pain is in the left upper quadrant. Has had no fall or injury. Multiple GI and ER evaluations reviewed. She has had multiple CT imaging over the years. Getting worked up for gastroparesis and getting a gastric emptying study soon. No early satiety or dysphagia. No emesis melena or blood. Has been troubled with constipating bloating at times. Often left upper quadrant pain. Status post partial hysterectomy, cholecystectomy and appendectomy and has had 2 lysis of adhesions. Saw general surgeon a while back for breast issues and addressed possible evaluation for laparotomy but surgeon deferred. She eats pretty well without emesis. Bowels are moving well. Review of Systems no acute symptoms of fever headache or other cardiovascular or pulmonary symptoms. He is vaping unfortunately. She denies any new familial or social stresses. Her mother did pass of [place] syndrome this past year. Takes pantoprazole routinely. No change in use of inhalers. 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 No peculiar vaginal bleeding or dyspareunia. Allergies Allergen Reactions Keflex [Cephalexin] Nausea And Vomiting Morphine Ondansetron Itching Itching and redness in arm when given Zofran IV Seasonal Ic [Octacosanol] Codeine Itching and Rash Gabapentin Other [place] like Heart was racing [place] like Heart was racing Latex Itching, Rash and Hives Other reaction(s): Hives Current Outpatient Medications on File Prior to Visit Medication Sig Dispense Refill Acetaminophen Extra Strength 500 MG tablet Take ,000 mg by mouth every 6 hours as needed. albuterol 108 (90 Base) MCG/ACT inhaler Inhale 2 puffs every 6 hours as needed. fluticasone (Flonase) 50 MCG/ACT nasal spray 2 sprays in the morning. pantoprazole (ProtoNix) 40 MG EC tablet Take 1 tablet (40 mg) by mouth every morning (before breakfast). Do not crush, chew, or split. 90 tablet 1 polyethylene glycol, PEG, 3350 (Miralax) 17 g packet Take 17 g by mouth in the morning and 17 g in the evening. Do all this for 7 days. 14 packet 0 [DISCONTINUED] albuterol 108 (90 Base) MCG/ACT inhaler inhale 2 puffs by mouth and INTO THE LUNGS every 6 hours if neede... (REFER TO PRESCRIPTION NOTES). [DISCONTINUED] dicyclomine (Bentyl) 10 MG capsule Take 2 capsules (20 mg) by mouth in the morning and 2 capsules (20 mg) at noon and 2 capsules (20 mg) in the evening and 2 capsules (20 mg) before bedtime. 240 capsule 0 No current facility-administered medications on file prior to visit. Patient Active Problem List Diagnosis Chronic constipation PFO (patent foramen ovale) Asthma Allergic rhinitis YVONNE (generalized anxiety disorder) Gastroparesis Hiatal hernia with gastroesophageal reflux Social History Tobacco Use Smoking status: Former Types: Cigarettes Smokeless tobacco: Former Tobacco comments: Vape Use Substance Use Topics Alcohol use: Yes Comment: social Past Surgical History: Procedure Laterality Date ABDOMINAL ADHESION SURGERY 2020 and 2021 APPENDECTOMY 2020 CHOLECYSTECTOMY 2019 COLONOSCOPY 2019 EXPLORATORY LAPAROTOMY 2019 KIDNEY SURGERY PARTIAL HYSTERECTOMY 2021 TUBAL LIGATION Family History Problem Relation Name Age of Onset Other Mother Ramya roman synd 07/31 fall with ICH, on Dialysis age 48 No Known Problems Father no contact with No Known Probl (more content not included)... [facility] 02-22-2024 36 Noted thank you. [facility] 02-21-2024 36 Reviewed ED visit 02/16/2024 at [facility]. CT A/P completed with findings of Fluid-filled right iliopsoas bursa suggestive of bursitis. Recommend to follow-up with PCP regarding bursitis. No GI findings on CT report. Unclear reasoning for MRI. Unable to find MRI recommendation in ED notes. [facility] 36 Pt called back in to see if there were any updates on getting an MRI order. Pt states when she was in the ED they did a CT and seen a mass in her abdomen at the bottom of her spine. Pt is requesting to get the order to have it possibly scheduled before her f/u appt on 03/08. Please advise [facility] 36on 02-17-2024 36 Name of caller: Socorro Contact phone number: [phone] Relationship to Patient: patient Provider: ZEESHAN Gunderson Practice: [facility] Chief Complaint/Reason for Call: Pt states she was in the ER and was able to have a bowel movement. Pt states the ER advised for her to a MRI. Pt states she is requesting an order for a MRI and would like to be notified once completed. Please review. Best time of day caller can be reached: any Patient advised that office/PCP has 24-48 business hours to return their call: Yes [facility] 36on 02-16-2024 36 Called and spoke to patient regarding getting a sooner appointment with Scooter. Reviewed her chart and he had wanted her to complete the 4 hour GES before being seen in the office again. Patient has already scheduled this for 03/02/24 at 9:00. Scheduled patient a follow up appointment with Scooter Gunderson for 03/08/24 at 1:30. Patient states she had called the [facility] and they triaged her today and are recommending she go to the ER. Advised the patient to be sure to make her GES appt or we can't see her in the office on 03/08. Patient amenable to making the appointment. [facility] 36 S: Patient spoke wit h [facility] nurse regarding abdominal pain and constipation B: Onset of symptoms/concern 02-13-24 A: Patient reports abdominal pain at 8 or 9 on a scale of 0-10. Pain worse on left side wraps around to back. Abdomen is distended and hard as a rock. [place] a popping sensation earlier today when trying to have a BM. Went to [facility] ED on 02-12. Information not viewable in [email or web address]. Patient reports they did imaging and told her she was constipated. Patient states she was discharged and told to try OTC medications at home. On Wednesday did 3 Dulcolax pills and 4 doses of Miralax. Had a very small amount of water stool. Today did 1 suppository and 3 colace. Has been increasing fluid intake since Wednesday. Had emesis on Wednesday but none since. Last bowel movement was 7-4 (excluding very small one yesterday). R: Discussed going to ED to be seen. Patient states she will go to [facility] ED. Will call SO to see if he can get off early to take her. Patient understands care advice. No further needs at this time. Patient instructed to call back with new or worsening symptoms. Message forward to GI office for review. Reason for Disposition SEVERE abdominal pain (e.g., excruciating) Last bowel movement (BM) > 4 days ago Protocols used: Abdominal Pain - Ypsvht-[id number], Wjzxohsurkyp-[id number]-AG Normal [facility] 36 Name of caller: Socorro Contact phone number: [phone] Relationship to Patient: patient Provider: Neptali Practice: gastro Chief Complaint/Reason for Call: Pt states has been in and out of the ER due to extreme bloating and abdominal pain and was told that she needs to be seen raphael. Pt has not had a bowel movement and has been drinking lots of water and taking enemas with no results. Best time of day caller can be reached: Any Patient advised that office/PCP has 24-48 business hours to return their call: Yes Normal [facility] CBC W Auto Differential pane l (Bld)on 02-16-2024 Basophils (Bld) [#/Vol] 0.0 10*3/uL 0.0 - 0.2 10*3/uL [facility] Basophils/100 WBC (Bld) 0.5 % 0.0 - 2.0 % [facility] Eosinophils (Bld) [#/Vol] 0.2 10*3/uL 0.0 - 0.5 10*3/uL [facility] Eosinophils/100 WBC (Bld) 2.5 % 0.0 - 6.0 % [facility] Erythrocyte distribution width (RBC) [Ratio] 11.8 % 11.5 - 15.0 % [facility] Hematocrit (Bld) [Volume fraction] 36.4 % 35.0 - 47.0 % Hemoglobin (Bld) [Mass/Vol] 12.8 g/dL 11.7 - 16.0 g/dL Immature granulocytes (Bld) [#/Vol] 0.0 10*3/uL NINF - 0.1 10*3/uL Immature granulocytes/100 WBC (Bld) 0.2 % 0.0 - 2.0 % Interpretation and review of laboratory results Normal Lymphocytes (Bld) [#/Vol] 2.1 10*3/uL 1.0 - 4.3 10*3/uL Lymphocytes/100 WBC (Bld) 32.8 % 15.0 - 45.0 % MCH (RBC) [Entitic mass] 31.1 pg 26.0 - 34.0 pg MCHC (RBC) [Mass/Vol] 35.2 % 30.5 - 36.0 % MCV (RBC) [Entitic vol] 88.6 fL 77.0 - 99.0 fL Monocytes (Bld) [#/Vol] 0.4 10*3/uL 0.0 - 0.9 10*3/uL Monocytes/100 WBC (Bld) 5.9 % 5.0 - 13.0 % Neutrophils (Bld) [#/Vol] 3.8 10*3/uL 1.8 - 7.5 10*3/uL Neutrophils/100 WBC (Bld) 58.1 % 38.0 - 82.0 % Nucleated RBC/100 WBC (Bld) [Ratio] 0.0 % Platelet mean volume (Bld) [Entitic vol] 9.5 fL 9.0 - 12.7 fL Comment on above: MPV is a calculated measurement using platelet volume ratio Platelets (Bld) [#/Vol] 245 10*3/uL 140 - 440 10*3/uL RBC (Bld) [#/Vol] 4.11 10*6/uL 3.80 - 5.2 0 10*6/uL WBC (Bld) [#/Vol] 6.5 10*3/uL 3.6 - 10.7 10*3/uL [facility] CBC WITH AUTO DIFFERENTIALon 02-16-2024 Basophils (Bld) [#/Vol] 0.0 10*3/uL Normal 0.0-0.2 [facility] Comment on above: Performed By: #### L [id number] ####Machine Spreader: KELLY RODRIGES ([id number])[facility] JIA RITTM[facility] (SWRLAB)[address] [place] [address] [place] Basophils/100 WBC (Bld) 0.5 % Normal 0.0-2.0 [facility] Comment on above: Performed By: #### L [id number] ####Machine Spreader: KELLY RODRIGES ([id number])[facility] (SWRLAB)[address] [place] [address] Eosinophils (Bld) [#/Vol] 0.2 10*3/uL Normal 0.0-0.5 [facility] Comment on above: Performed By: #### L [id number] ####Machine Spreader: KELLY RODRIGES ([id number])[facility] (SWRLAB)[address] [place] [address] [place] Eosinophils/100 WBC (Bld) 2.5 % Normal 0.0-6.0 [facility] Comment on above: Performed By: #### L [id number] ####Machine Spreader: KELLY RODRIGES ([id number])[facility]ITALParrish RO RITTMAN (SWRLAB)[address] [place] [address] Erythrocyte distribution width (RBC) [Ratio] 11.8 % Normal 11.5-15.0 [facility] Comment on above: Performed By: #### L [id number] ####Machine Spreader: KELLY RODRIGES ([id number])[facility]ITAL[facility] RO [facility] (SWRLAB)[address] [place] [address] Hematocrit (Bld) [Volume fraction] 36.4 % Normal 35.0-47.0 [facility] Comment on above: Performed By: #### L [id number] ####Machine Spreader: KELLY RODRIGES ([id number])[facility] RO [facility] (SWRLAB)[address] [place] [address] Hemoglobin (Bld) [Mass/Vol] 12.8 g/dL Normal 11.7-16.0 [facility] Comment on above: Performed By: #### L [id number] ####Machine Spreader: KELLY RODRIGES ([id number])[facility]ITAL[facility] RO [facility] (SWRLAB)[address] [place] [address] IMMATURE GRANS % 0.2 % Normal 0.0-2.0 [facility] Comment on above: Performed By: #### L [id number] ####Machine Spreader: KELLY RODRIGES ([id number])[facility] RO [place] (SWRLAB)[address] [place] [address] IMMATURE GRANS ABSOLUTE 0.0 10*3/uL Normal <0.1 [facility] Comment on above: Performed By: #### L [id number] ####Machine Spreader: KELLY RODRIGES ([id number])[facility] RO [facility] (SWRLAB)[address] [place] [address] [place] Lymphocytes (Bld) [#/Vol] 2.1 10*3/uL Normal 1.0-4.3 [facility] Comment on above: Performed By: #### L [id number] ####Machine Spreader: KELLY RODRIGES ([id number])[facility]ITAL[facility] RO [place] (SWRLAB)[address] [place] [address] [place] Lymphocytes/100 WBC (Bld) 32.8 % Normal 15.0-45.0 [facility] Comment on above: Performed By: #### L [id number] ####Machine Spreader: KELLY RODRIGES ([id number])[facility] RO [place] (SWRLAB)[address] [place] [address] MCH (RBC) [Entitic mass] 31.1 pg Normal 26.0-34.0 [facility] Comment on above: Performed By: #### L [id number] ####Machine Spreader: KELLY RODRIGES ([id number])[place] RO R[place] (SWRLAB)[address] [place] [address] MCHC 35.2 % Normal 30.5-36.0 [facility] Comment on above: Performed By: #### L [id number] ####Machine Spreader: KELLY RODRIGES ([id number])[place] (SWRLAB)[address] [place] [address] MCV (RBC) [Entitic vol] 88.6 fL Normal 77.0-99.0 [facility] Comment on above: Performed By: #### L [id number] ####Machine Spreader: KELLY RODRIGES ([id number])[place] (SWRLAB)[address] [place] [address] Monocytes (Bld) [#/Vol] 0.4 10*3/uL Normal 0.0-0.9 [facility] Comment on above: Performed By: #### L [id number] ####Machine Spreader: KELLY RODRIGES ([id number])[place] RO [place] (SWRLAB)[address] [place] [address] Monocytes/100 WBC (Bld) 5.9 % Normal 5.0-13.0 [facility] Comment on above: Performed By: #### L [id number] ####Machine Spreader: KELLY RODRIGES ([id number])[facility]ITALP[facility] RO [place] (SWRLAB)[address] [place] [address] [place] NEUTROPHILS ABSOLUTE 3.8 10*3/uL Normal 1.8-7.5 [facility] Comment on above: Performed By: #### L [id number] ####Machine Spreader: KELLY RODRIGES ([id number])[place] (SWRLAB)[address] [place] [address] Neutrophils/100 WBC (Bld) 58.1 % Normal 38.0-82.0 [facility] Comment on above: Performed By: #### L [id number] ####Machine Spreader: KELLY RODRIGES ([id number])[place] (SWRLAB)[address] [place] [address] NRBC 0.0 /100 WBCs Normal 0.0-2.0 [facility] Comment on above: Performed By: #### L [id number] ####Machine Spreader: KELLY RODRIGES ([id number])[facility]ITAL[facility] (SWRL[place])[address] [place] [address] Platelet mean volume (Bld) [Entitic vol] 9.5 fL Normal 9.0-12.7 [facility] Comment on above: Result Comment: MPV is a calculated measurement using platelet volume ratio Performed By: #### L [id number] ####Machine Spreader: KELLY RODRIGES ([id number])[facility]ITALP[facility] RO [facility] (SWRLAB)[address] [place] [address] [place] Platelets (Bld) [#/Vol] 245 10*3/uL Normal 140-440 [facility] Comment on above: Performed By: #### L [id number] ####Machine Spreader: KELLY RODRIGES ([id number])[facility] (SWRL[place])[address] [place] [address] RBC (Bld) [#/Vol] 4.11 10*6/uL Normal 3.80-5.20 [facility] Comment on above: Performed By: #### L [id number] ####Machine Spreader: KELLY RODRIGES ([id number])[facility]ITAL[facility] [place] (SWRL[place])[address] [place] [address] [place] WBC (Bld) [#/Vol] 6.5 10*3/uL Normal 3.6-10.7 [facility] Comment on above: Performed By: #### L [id number] ####Machine Spreader: KELLY RODRIGES ([id number])[place] (SWRLAB)[address] [place] [address] [place] COMPLETE URINALYSISon 2023 BILIRUBIN, TOTAL PRESENCE IN URINE Negative Normal Negative [facility] Comment on above: Performed By: #### L [id number] ####Machine Spreader: KELLY RODRIGES ([id number])[facility]ITALP[facility] RO [place] (SWRL[place])[address] Clarity (U) Clear Normal Clear [facility] Comment on above: Performed By: #### L [id number] ####Machine Spreader: KELLY RODRIGES ([id number])[facility]ITALP[facility] RO [place] (SWRL[place])[address] Color (U) Colorless Normal Lt. Yellow [facility] Comment on above: Performed By: #### L [id number] ####Machine Spreader: KELLY RODRIGES ([id number])[facility] RO [place] (SWRL[place])[address] GLUCOSE (MG/DL) IN URINE Normal Normal Normal (<70) [facility] Comment on above: Performed By: #### L [id number] ####Machine Spreader: KELLY RODRIGES ([id number])[facility] RO [place] (SWRL[place])[address] [place] [address] [place] HEMOGLOBIN PRESENCE IN URINE Negative Normal Negative [facility] Comment on above: Performed By: #### L [id number] ####Machine Spreader: KELLY RODRIGES ([id number])[facility] RO [place] (SWRL[place])[address] [place] [address] [place] Ketones Ql (U) Negative Normal Negative [facility] Comment on above: Performed By: #### L [id number] ####Machine Spreader: KELLY RODRIGES ([id number])[facility] RO [place] (SWRL[place])[address] [place] [address] [place] LEUKOCYTE ESTERASE PRESENCE IN URINE BY TEST STRIP Negative Normal Negative [facility] Comment on above: Performed By: #### L [id number] ####Machine Spreader: KELLY RODRIGES ([id number])[facility]ITALP[facility] [place] (SWRLAB)[address] [place] [address] [place] NITRITE PRESENCE IN URINE Negative Normal Negative [facility] Comment on above: Performed By: #### L [id number] ####Machine Spreader: KELLY RODRIGES ([id number])[facility] (SWRL[place])[address] [place] [address] pH (U) 6.5 [pH] Normal 5.0-8.0 [facility] Comment on above: Performed By: #### L [id number] ####Machine Spreader: KELLY RODRIGES ([id number])[facility] (SWRL[place])[address] [place] [address] Protein (U) [Mass/Vol] Negative Normal Negative [facility] Comment on above: Performed By: #### L [id number] ####Machine Spreader: KELLY RODRIGES ([id number])[facility] (SWRL[place])[address] [place] [address] Specific gravity (U) [Rel density] 1.002 Low 1.005-1.030 [facility] Comment on above: Performed By: #### L [id number] ####Machine Spreader: KELLY RODRIGES ([id number])[facility] (SWRLAB)[address] [place] [address] [place] UROBILINOGEN (MG/DL) IN URINE Normal Normal Normal (0-1) [facility] Comment on above: Performed By: #### L [id number] ####Machine Spreader: KELLY RODRIGES ([id number])[facility] (SWRL[place])[address] [place] [address] COMPREHENSIVE METABOLIC PANE Tim 02-16-2024 Albumin [Mass/Vol] 4.2 g/dL Normal 3.5-5.0 [facility] Comment on above: Performed By: #### L AB17, LAB99 ####Machine Spreader: KELLY RODRIGES ([id number])[facility] ([place])[address] [place] [address] [place] ALP [Catalytic activity/Vol] 40 U/L Normal 38-126 [facility] Comment on above: Performed By: #### L AB17, LAB99 ####Machine Spreader: KELLY RODRIGES ([id number])[facility] HOLLOWAYJIA RITTMAN (SWRLAB)[address] [place] [address] [place] ALT [Catalytic activity/Vol] 13 U/L Normal 0-34 [facility] Comment on above: Performed By: #### L AB17, LAB99 ####Machine Spreader: KELLY RODRIGES ([id number])[facility] [place] (SWRL[place])[address] Anion gap [Moles/Vol] 8 mmol/L Normal 3-13 [facility] Comment on above: Performed By: #### L AB17, LAB99 ####Machine Spreader: KELLY RODRIGES ([id number])[facility] RO [facility] (SWRL[place])[address] [place] [address] [place] AST [Catalytic activity/Vol] 23 U/L Normal 15-46 [facility] Comment on above: Performed By: #### L AB17, LAB99 ####Machine Spreader: KELLY RODRIGES ([id number])[facility] RO [place] (SWRL[place])[address] [place] [address] [place] Bilirubin [Mass/Vol] 0.5 mg/dL Normal 0.2-1.3 [facility] Comment on above: Performed By: #### L AB17, LAB99 ####Machine Spreader: KELLY RODRIGES ([id number])[facility] RO [place] (SWRL[place])[address] [place] [address] [place] Calcium [Mass/Vol] 9.2 mg/dL Normal 8.4-10.4 [facility] Comment on above: Performed By: #### L AB17, LAB99 ####Machine Spreader: KELLY RODRIGES ([id number])[facility] RO [facility] (SWRL[place])[address] [place] [address] [place] Chloride [Moles/Vol] 108 mmol/L High 98-107 [facility] Comment on above: Performed By: #### L AB17, LAB99 ####Machine Spreader: KELLY RODRIGES ([id number])[facility] HOLLOWAYJIA RITTMAN (SWRLAB)[address] [place] [address] [place] CO2 [Moles/Vol] 21 mmol/L Low 22-30 [facility] Comment on above: Performed By: #### L AB17, LAB99 ####Machine Spreader: KELLY RODRIGES ([id number])[facility] RO [facility] (SWRL[place])[address] [place] [address] [place] Creatinine [Mass/Vol] 0.61 mg/dL Normal 0.52-1.04 [facility] Comment on above: Performed By: #### L AB17, LAB99 ####Machine Spreader: KELLY RODRIGES ([id number])[facility] RO [facility] (SWRLAB)[address] [place] [address] [place] GLOMERULAR FILTRATION RATE ML/MIN/1.73 SQ M.PREDICTED >90.0 Normal >60.0 [facility] Comment on above: Result Comment: Calc ulation based on the Chronic Kidney Disease Epidemiology Collaboration (CKD-EPI) equation refit without adjustment for race Performed By: #### L AB17, LAB99 ####Machine Spreader: KELLY RODRIGES ([id number])[facility] [place] (SWRL[place])[address] [place] [address] [place] Glucose [Mass/Vol] 81 mg/dL Normal 70-100 [facility] Comment on above: Performed By: #### L AB17, LAB99 ####Machine Spreader: KELLY RODRIGES ([id number])[facility] HOLLOWAYJIA [place] (SWRLAB)[address] [place] [address] [place] Potassium [Moles/Vol] 3.9 mmol/L Normal 3.5-5.1 [facility] Comment on above: Performed By: #### L AB17, LAB99 ####Machine Spreader: KELLY RODRIGES ([id number])[facility] JIA [facility]TM[facility] (SWRLAB)[address] [place] [address] Protein [Mass/Vol] 7.2 g/dL Normal 6.3-8.2 [facility] Comment on above: Performed By: #### L AB17, LAB99 ####Machine Spreader: KELLY RODRIGES ([id number])[facility] J[facility] (SWRLAB)[address] [place] [address] Sodium [Moles/Vol] 137 mmol/L Normal 135-145 [facility] Comment on above: Performed By: #### L AB17, LAB99 ####Machine Spreader: KELLY RODRIGES ([id number])[facility] (SWRLAB)[address] [place] [address] Urea nitrogen [Mass/Vol] 6 mg/dL Low 7-17 [facility] Comment on above: Performed By: #### L AB17, LAB99 ####Machine Spreader: KELYL RODRIGES ([id number])[facility] (SWRLAB)[address] [place] [address] CT ABDOMEN PELVIS WO IV CONT [facility] 02-16-2024 CT ABDOMEN PELVIS WO IV CONTRAST Patient Name: SOCORRO GONSALES : 1995 Exam Date/Time: 02/16/2024 18:24 Procedure: CT ABDOMEN PELVIS WO IV CONTRAST Ordering Provider: PERERA MICHAEL Reason For Exam: Abdominal pain, acute, nonlocalized CLINICAL HISTORY: Abdominal pain, acute, nonlocalized COMPARISON: 05/17/2023 Technique: Axial CT images were obtained of the abdomen and pelvis without the use of intravenous contrast. Images were reformatted in coronal and sagittal projections. Dose reduction was employed with automated exposure control. FINDINGS: Evaluation of solid organs is limited by lack of contrast administration. Chest base: The lung bases are clear. Liver/Biliary system: No significant abnormality. Cholecystectomy Spleen: Not enlarged. Pancreas: No significant abnormality. Adrenal glands: No significant abnormality. Kidneys: No hydronephrosis or renal calculi are seen. Bowel: The bowel is of normal caliber throughout without evidence of wall thickening or obstruction. Pericecal postsurgical changes suggestive of appendectomy. Mesentery/Intraperitoneu m: Mild free fluid in the pelvis, likely physiologic. No free intraperitoneal air. Lymph nodes: No lymphadenopathy Vasculature: The abdominal aorta is normal in caliber. Pelvic organs: No masses or other significant abnormalities seen. Soft tissues and Osseous structures: No evidence of fracture. No suspicious osseous lesions. Hypodense fluid collection along the deep aspect of the iliopsoas muscles measuring up to 1.7 x 1.6 x 5 cm. IMPRESSION: Fluid-filled right iliopsoas bursa suggestive of bursitis. Report Dictated on Electronically Signed By: Lizeth De Paz DR Electronically Signed Date/Time: 02/16/2024 6:45 PM EDT c/o left sided abdominal pain and constipation. Pt states symptoms started Wednesday and that she was seen and [facility] with diagnosis of constipation. Pt reports that she has used multiple types of enemas, miralax and stool softeners with no results. Pt states she felt a pop in area with increase in pain since then with pain radiating up back and to neck. Pt also has some dysuria. Pt has a hx of pancreatitis, hyster, appy, stas, tubal Pt refused IV contrast due to poor IV access Normal [facility] CT Abdomen WO contraston Fluid-filled right iliopsoas bursa suggestive of bursitis. Report Dictated on Electronically Signed By: Lizeth De Paz DR Electronically Signed Date/Time: 02/16/2024 6:45 PM EDT [facility] [place] [facility] Patient Name: SOCORRO ORELLANA : 1995 Exam Date/Time: 02/16/2024 18:24 Procedure: CT ABDOMEN PELVIS WO IV CONTRAST Ordering Provider: TREVER, , NEPTALI Reason For Exam: Abdominal pain, acute, nonlocalized CLINICAL HISTORY: Abdominal pain, acute, nonlocalized COMPARISON: 05/17/2023 Technique: Axial CT images were obtained of the abdomen and pelvis without the use of intravenous contrast. Images were reformatted in coronal and sagittal projections. Dose reduction was employed with automated exposure control. FINDINGS: Evaluation of solid organs is limited by lack of contrast administration. Chest base: The lung bases are clear. Liver/Biliary system: No significant abnormality. Cholecystectomy Spleen: Not enlarged. Pancreas: No significant abnormality. Adrenal glands: No significant abnormality. Kidneys: No hydronephrosis or renal calculi are seen. Bowel: The bowel is of normal caliber throughout without evidence of wall thickening or obstruction. Pericecal postsurgical changes suggestive of appendectomy. Mesentery/Intraperitoneu m: Mild free fluid in the pelvis, likely physiologic. No free intraperitoneal air. Lymph nodes: No lymphadenopathy Vasculature: The abdominal aorta is normal in caliber. Pelvic organs: No masses or other significant abnormalities seen. Soft tissues and Osseous structures: No evidence of fracture. No suspicious osseous lesions. Hypodense fluid collection along the deep aspect of the iliopsoas muscles measuring up to 1.7 x 1.6 x 5 cm. [facility] [facility] Veronica, Lizeth Senior MD - 02/16/2024 [facility]ONSALES [facility] 1995 [id number] Exam Date/Time: 02/16/2024 18:24 Procedure: CT ABDOMEN PELVIS WO IV CONTRAST Ordering Provider: PERERA MICHAEL Reason For Exam: Abdominal pain, acute, nonlocalized CLINICAL HISTORY: Abdominal pain, acute, nonlocalized COMPARISON: 05/17/2023 Technique: Axial CT images were obtained of the abdomen and pelvis without the use of intravenous contrast. Images were reformatted in coronal and sagittal projections. Dose reduction was employed with automated exposure control. FINDINGS: Evaluation of solid organs is limited by lack of contrast administration. Chest base: The lung bases are clear. Liver/Biliary system: No significant abnormality. Cholecystectomy Spleen: Not enlarged. Pancreas: No significant abnormality. Adrenal glands: No significant abnormality. Kidneys: No hydronephrosis or renal calculi are seen. Bowel: The bowel is of normal caliber throughout without evidence of wall thickening or obstruction. Pericecal postsurgical changes suggestive of appendectomy. Mesentery/Intraperitoneu m: Mild free fluid in the pelvis, likely physiologic. No free intraperitoneal air. Lymph nodes: No lymphadenopathy Vasculature: The abdominal aorta is normal in caliber. Pelvic organs: No masses or other significant abnormalities seen. Soft tissues and Osseous structures: No evidence of fracture. No suspicious osseous lesions. Hypodense fluid collection along the deep aspect of the iliopsoas muscles measuring up to 1.7 x 1.6 x 5 cm. IMPRESSION: Fluid-filled right iliopsoas bursa suggestive of bursitis. Report Dictated on Electronically Signed By: Lizeth De Paz DR Electronically Signed Date/Time: 02/16/2024 6:45 PM EDT Radiology Study observation (narrative) CT Abdomen WO contrastOrdere d By: Lizeth De Paz on 02-16-2024 Work Phone: Comprehensive metabolic 1998 panelOrdered By: Mikaela Kumar on 02-16-2024 Albumin [Mass/Vol] 4.2 g/dL 3.5 - 5.0 g/dL [facility] ALP [Catalytic activity/Vol] 40 U/L 38 - 126 U/L ALT [Catalytic activity/Vol] 13 U/L 0 - 34 U/L Anion gap [Moles/Vol] 8 mmol/L 3 - 13 mmol/L AST [Catalytic activity/Vol] 23 U/L 15 - 46 U/L Bilirubin [Mass/Vol] 0.5 mg/dL 0.2 - 1 .3 mg/dL Calcium [Mass/Vol] 9.2 mg/dL 8.4 - 10. 4 mg/dL Chloride [Moles/Vol] 108 mmol/L High 98 - 10 7 mmol/L CO2 [Moles/Vol] 21 mmol/L Low 22 - 30 mmol/L Creatinine [Mass/Vol] 0.61 mg/dL 0.52 - 1.04 mg/dL GFR/1.73 sq M.predicted MDRD (S/P/Bld) [Vol rate/Area] - PINF Comment on above: Calculation based on the Chronic Kidney Disease Epidemiology Collaboration (CKD-EPI) equation refit without adjustment for race Glucose [Mass/Vol] 81 mg/dL 70 - 100 mg/dL [facility] Interpretation and review of laboratory results Abnormal Potassium [Moles/Vol] 3.9 mmol/L 3.5 - 5.1 mmol/L Protein [Mass/Vol] 7.2 g/dL 6.3 - 8.2 g/dL [facility] Sodium [Moles/Vol] 137 mmol/L 135 - 145 mmol/L Urea nitrogen [Mass/Vol] 6 mg/dL Low 7 - 17 mg/dL [facility] ED Nursing Noteon 02-16-2024 ED Nursing Note Patient currently hoover ving bowel movement. Layne Garber RN 02/16/241934 [facility] ED Nursing Note Soap suds enema give n by Ajit Snider, patient laying on left side tolerating well. Layne Garber RN 02/16/24 191 Normal [facility] ED Nursing Note Pt ambulatory to [place] [address] with c/o left sided abdominal pain and constipation. Pt states symptoms started Wednesday and that she was seen and treated [facility] with diagnosis of constipation. Pt reports that she has used multiple types of enemas, miralax and stool softeners with no results. Pt states she felt a pop in area with increase in pain since then with pain radiating up back and to neck. Pt also has some dysuria. Normal [facility] ED Nursing Note Pt c/o increased anita n after CT scan. Physician aware. Selam Snider RN 02/16/24 183 [facility] ED Provider Noteon ED Provider Note CT scan is negative for acute intra-abdominal processes, reveals fluid collection along the iliopsoas muscle suggestive of bursitis. The patient has no fever or leukocytosis, no suspicion for abscess at this time. The patient was updated on results, she is currently resting comfortably, vitals are stable. Plan for discharge with follow-up to PCP and GI. Jean Odonnell DO 02/16/24 193 Normal [facility] ED Provider Note EMERGENCY DEPARTMENT ENCOUNTER Pt Name: Socorro Gonsales Birthdate 1995 Date of evaluation: 02/16/2024 ED Provider: Neptali Perera MD CHIEF COMPLAINT Chief Complaint Patient presents with Abdominal Pain HISTORY OF PRESENT ILLNESS I wore appropriate PPE for the entirety of this encounter. HPI Socorro Gonsales is a 28 y.o. female who presents to the emergency department complaining of severe abdominal pain. The patient states that this has been present for the last 4 days.she went to [facility] where CAT scan was done. She states that it demonstrated constipation. She has tried MiraLAX and Dulcolax since then but the pain has only worsened. She describes the pain is on the left side. She has had multiple abdominal surgeries in the past. She states that she has known adhesions. She has had a cholecystectomy and appendectomy as well as hysterectomy. She has a history of gastroparesis. She called her GI office who told her to go to the emergency department. She complains of nausea but no emesis. There has been no diarrhea. Nursing Notes were reviewed. Limitations to history: None Outside historians: None REVIEW OF SYSTEMS Review of Systems Constitutional: Negative for chills and fever. HENT: Negative for ear pain and sore throat. Eyes: Negative for pain and visual disturbance. Respiratory: Negative for cough and shortness of breath. Cardiovascular: Negative for chest pain and palpitations. Gastrointestinal: Positive for abdominal pain and nausea. Negative for vomiting. Genitourinary: Negative for dysuria and hematuria. Musculoskeletal: Negative for arthralgias and back pain. Skin: Negative for color change and rash. Neurological: Negative for seizures and syncope. All other systems reviewed and are negative. PAST MEDICAL HISTORY Past Medical History: Diagnosis Date Asthma 2001 Pancreatitis 2020 SURGICAL HISTORY Past Surgical History: Procedure Laterality Date APPENDECTOMY 2020 CHOLECYSTECTOMY 2020 EXPLORATORY LAPAROTOMY 2019 HYSTERECTOMY 2021 KIDNEY SURGERY PARTIAL HYSTERECTOMY TUBAL LIGATION CURRENT MEDICATIONS Previous Medications ACETAMINOPHEN EXTRA STRENGTH 500 MG TABLET Take 1,000 mg by mouth every 6 hours as needed. ALBUTEROL 108 (90 BASE) MCG/ACT INHALER Inhale 2 puffs every 6 hours as needed. ALBUTEROL 108 (90 BASE) MCG/ACT INHALER inhale 2 puffs by mouth and INTO THE LUNGS every 6 hours if neede... (REFER TO PRESCRIPTION NOTES). DICYCLOMINE (BENTYL) 10 MG CAPSULE Take 2 capsules (20 mg) by mouth in the morning and 2 capsules (20 mg) at noon and 2 capsules (20 mg) in the evening and 2 capsules (20 mg) before bedtime. FLUTICASONE (FLONASE) 50 MCG/ACT NASAL SPRAY 2 sprays in the morning. PANTOPRAZOLE (PROTONIX) 40 MG EC TABLET Take 1 tablet (40 mg) by mouth every morning (before breakfast). Do not crush, chew, or split. ALLERGIES Keflex [cephalexin], Morphine, Ondansetron, Seasonal ic [octacosanol], Codeine, Gabapentin, and Latex FAMILY HISTORY Family History Problem Relation Name Age of Onset Kidney disease Mother No Known Problems Father no contact with No Known Problems Sister No Known Problems Brother SOCIAL HISTORY Social History Socioeconomic History Marital status: Significant Other Tobacco Use Smoking status: Former Types: Cigarettes Smokeless tobacco: Former Tobacco comments: Vape Use Vaping Use Vaping status: Every Day Substances: Nicotine Substance and Sexual Activity Alcohol use: Yes Comment: social Drug use: Never Social History Narrative Single, 2 kids (4,6) 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 Overall Financial Resource Strain (CARDIA) Difficulty of Paying Living Expenses: Not hard at all Food Insecurity: No Food Insecurity (01/13/2021) Received from [email or web address] [facility] Hunger Vital Sign Worried About Running Out of Food in the Last Year: Never true Ran Out of Food in the Last Year: Never true Transportation Needs: No Transportation Needs (01/13/2021) Received from [facility] PRAPARE - Transportation Lack of Transportation (Medical): No Lack of Transportation (Non-Medical): No Physical Activity: Sufficiently Active (02/16/2019) Received from [facility] Exercise Vital Sign Days of Exercise per Week: 5 days Minutes of Exercise per Session: 150+ min Stress: Stress Concern Present (02/16/2019) Received from [facility], [facility] [employer] [place] [employer] - Occupational Stress Questionnaire Feeling of Stress : (more content not included)... Normal [facility] LIPASEon 02-16-2024 Lipase [Catalytic activity/Vol] 222 U/L Normal 23-300 [facility] Comment on above: Performed By: #### L AB17, LAB99 ####Machine Spreader: KELLY RODRIGES ([id number])[facility] (SWLAB)[address] [place] [address] Laboratory - Chemistry and C hemistry - challengeon 02-16-2024 Lipase [Catalytic activity/Vol] 222 U/L 23 - 300 U/L Lipase [Catalytic activity/V ol]on 02-16-2024 Interpretation and review of laboratory results Normal [facility] Urinalysis complete panel (U )Ordered By: Selam Perry on 02-16-2024 Bilirubin Ql (U) Negative Negative mg/dL [facility] Clarity (U) Clear Clear Color (U) Colorless Lt. Yellow Glucose Ql (U) Normal Normal (<70) mg/dL Hemoglobin Ql (U) Negative Negative mg/dL [facility] Interpretation and review of laboratory results Abnormal Ketones (U) [Mass/Vol] Negative Negative mg/dL Leukocyte esterase Test strip Ql (U) Negative Negative Reyes/uL Nitrite Ql (U) Negative Negative pH (U) 6.5 [pH] 5.0 - 8.0 pH Protein (U) [Mass/Vol] Negative Negative mg/dL Specific gravity (U) [Rel density] 1.002 Low 1.005 - 1.030 Urobilinogen (U) [Mass/Vol] Normal Normal (0-1) mg/dL [facility] 36on 02-15-2024 36 Patient is scheduled with Dr. Chua. [facility] 36 Noted [facility] 36 Message released to patient as written. yes Patient's further questions if applicable: none Were all questions from office addressed or relayed to the patient from encounter: Yes- scheduled for 02/[address]ua [facility] 36 L/M for patient to c all and schedule a new to provider appt with either Kaylee Chua or Wood. [facility] 36 ----- Message from Emilie Rodriguez sent at 02/15/2024 6:58 AM EDT ----- Regarding: Establish appointment needed Erasmo Melgoza, Can you please reach out to this patient and schedule her to establish with one of the PCPs? They had her listed with Blake as the PCP. She was a former [facility] patient. Thank you! [facility] 36on 02-14-2024 36 S: Pt calling [facility] c/o abdominal pain. B: Pt seen in ED at [facility] yesterday and diagnosed with constipation. A: Pt denies new or worsening symptoms. The pain has improved since having BMs. Pt has a history of gastroparesis. She has taken 3 doses of Dulcolax and 5 doses of Miralax since discharge from ED. Pt had a CT scan while there. She has had three BMs that were all liquid. Pt does experience chronic abdominal pain but this pain is more sharp than her baseline pain. Pain is constant and moderate, 5/10. Pt has had this same type of pain in the past after taking a lot of laxatives. No fever or other symptoms. R: Pt has an appointment for a gastric emptying study on March 02 and is supposed to wait until after it is completed to schedule an ED follow up visit with PCP or GI. Advised her a message will be sent to the offices to review and advise, and to please call back with any new or worsening symptoms. Pt verbalized understanding. Reason for Disposition [1] Recent medical visit within 24 hours AND [2] condition / symptoms SAME (unchanged) AND [3] caller has additional questions triager can answer Protocols used: Recent Medical Visit for Illness [id number] Abdomen/Pelvis WITH Contrast on 02-13-2024 Abdomen/Pelvis WITH Contrast [facility] [address] [place] [address] Abdomen/Pelvis WITH Contrast MR#: [id number] Acct: [id number] Name: SOCORRO GONSALES Rep #: [id number] : 1995 F 28 From: Neptali Banks PCP: [facility] Status: REG ER Study: Abdomen/Pelvis WITH Contrast Date of Exam: 03/01 Exam# [id number] Ordering Dr: Trent Carr DO [id number] EXAM: CT ABDOMEN AND PELVIS WITH INTRAVENOUS CONTRAST CLINICAL INDICATION: Abdominal pain -- IV PO Contrast TECHNIQUE: Helically acquired images were obtained of the abdomen and pelvis with intravenous contrast. This CT exam was performed using one or more of the following dose reduction techniques: automated exposure control, adjustment of the mA and/or kV according to patient size, and/or use of iterative reconstruction technique. CONTRAST: 75 cc of Isovue-370 IV. Oral Gastrografin. RADIATION DOSE: CTDIvol = 9.53 mGy, DLP = 615.71 mGy-cm COMPARISON: 10/21/2023. FINDINGS: LOWER THORAX: Unremarkable. Lung bases are clear. No cardiomegaly. No significant pericardial effusion. ABDOMEN: LIVER: Unremarkable. Homogeneous. No focal mass. GALLBLADDER AND BILE DUCTS: Cholecystectomy. Common bile duct is dilated measuring 1.1 cm and there is mild intrahepatic biliary dilatation not significantly changed as previous exam. PANCREAS: Unremarkable. No focal cystic or solid mass. SPLEEN: Unremarkable. Normal size without focal cystic or solid mass. ADRENALS: Unremarkable. No nodules. KIDNEYS AND URETERS: Unremarkable. Normal renal size and position. No hydronephrosis. STOMACH AND BOWEL: Large amount of fecal material throughout the colon. No stomach or bowel distention. No focal inflammatory change. PELVIS: APPENDIX: No evidence of acute appendicitis. BLADDER: Unremarkable. REPRODUCTIVE: Hysterectomy. ABDOMEN and PELVIS: INTRAPERITONEAL SPACE: Unremarkable. No ascites or other fluid collection. No free air. BONES/JOINTS: Unremarkable. No suspicious lytic or blastic abnormality. SOFT TISSUES: Unremarkable. No discrete abdominal or pelvic wall hernia. VASCULATURE: Unremarkable. Abdominal aorta is non-dilated. LYMPH NODES: Unremarkable. No enlarged lymph nodes. CT/Abdomen/Pelvis WITH Contrast IMPRESSION: 1. Constipation. 2. Cholecystectomy. 3. Common bile duct is dilated measuring 1.1 cm and there is mild intrahepatic biliary dilatation not significantly changed as previous exam. This is likely chronic postcholecystectomy. 4. Hysterectomy. Electronically Signed: Neptali Edmondson MD at 22:49 EDT , CC: Dr. Trent Carr, DO; [facility] Purchasing Associate: Signed Normal [facility] CBC W/Diff, Automatedon 0 Absolute Lymph 2.76 X10 3/uL Normal 0.83-4.51 [facility] Comment on above: Performed By: #### L 501.2450, L500.4050, L100.0100 #### [facility] [address] [place], [address] Absolute Neut 3.6 X10 3/uL Normal 2.0-7.7 [facility] Comment on above: Performed By: #### L 501.2450, L500.4050, L100.0100 #### [facility] [address] [place], [address] Basophils/100 WBC (Bld) 0.6 % Normal 0-1 [facility] Comment on above: Performed By: #### L 501.2450, [id number], L100.0100 #### [facility] [address] [place], [address] Eosinophils/100 WBC (Bld) 2.3 % Normal 0-5 [facility] Comment on above: Performed By: #### L 501.2450, L500.4050, L100.0100 #### [facility] [address] [place], [address] Erythrocyte distribution width (RBC) [Ratio] 11.9 % Normal 11.6-14.6 [facility] Comment on above: Performed By: #### L 501.2450, L500.4050, L100.0100 #### [facility] [address] [place], [address] Hematocrit (Bld) [Volume fraction] 37.2 % Normal 37-47 [facility] Comment on above: Performed By: #### L 501.2450, L500.4050, L100.0100 #### [facility] [address] [place], [address] Hemoglobin (Bld) [Mass/Vol] 12.8 g/dL Normal 12.0-15.0 [facility] Comment on above: Performed By: #### L 501.2450, L500.4050, L100.0100 #### [facility] [address] [place], [address] IG% 0.300 Normal 0.0-0.9 [facility] Comment on above: Result Comment: IG% - Immature Granulocytes (promyelocytes, myelocytes and metamyelocytes) > 1% indicates that a LEFT SHIFT is Present. Performed By: #### L 501.2450, L500.4050, L100.0100 #### [facility] [address] [place], [address] Lymphocytes/100 WBC (Bld) 39.4 % Normal 19-41 [facility] Comment on above: Performed By: #### L 501.2450, [id number], L100.0100 #### [facility] [address] [place], [address] MCH (RBC) [Entitic mass] 31.2 pg Normal 27.0-32.0 [facility] Comment on above: Performed By: #### L 501.2450, L500.4050, L100.0100 #### [facility] [address] [place], [address] MCHC (RBC) [Mass/Vol] 34.4 g/dL Normal 32-36 [facility] Comment on above: Performed By: #### L 501.2450, L500.4050, L100.0100 #### [facility] [address] [place], [address] MCV (RBC) [Entitic vol] 90.7 fL Normal 81-99 [facility] Comment on above: Performed By: #### L 501.2450, L500.4050, L100.0100 #### [facility] [address] [place], [address] Monocytes/100 WBC (Bld) 5.8 % Normal 0-10 [facility] Comment on above: Performed By: #### L 501.2450, [id number], L100.0100 #### [facility] [address] [place], [address] Neutrophils/100 WBC (Bld) 51.6 % Normal 47-70 [facility] Comment on above: Performed By: #### L 501.2450, L500.4050, L100.0100 #### [facility] [address] [place], [address] Nucleated RBC (Bld) [#/Vol] 0 10*3/uL Normal 0-5 [facility] Comment on above: Performed By: #### L 501.2450, L500.4050, L100.0100 #### [facility] [address] [place], [address] Platelet mean volume (Bld) [Entitic vol] 9.9 fL Normal 6.2-12.0 [facility] Comment on above: Performed By: #### L 501.2450, L500.4050, L100.0100 #### [facility] [address] [place], [address] Platelets (Bld) [#/Vol] 283 10*3/uL Normal 150-450 [facility] Comment on above: Performed By: #### L 501.2450, L500.4050, L100.0100 #### [facility] [address] [place], [address] RBC (Bld) [#/Vol] 4.10 10*6/uL Low 4.2-5.4 [facility] Comment on above: Performed By: #### L 501.2450, [id number], L100.0100 #### [facility] [address] [place], [address] RDW SD 38.9 fl Normal 35.1-43.9 [facility] Comment on above: Performed By: #### L 501.2450, L500.4050, L100.0100 #### [facility] [address] [place], [address] WBC (Bld) [#/Vol] 7.0 10*3/uL Normal 4.4-11.0 [facility] Comment on above: Performed By: #### L 501.2450, L500.4050, L100.0100 #### [facility] [address] [place], [address] Comprehensive Metabolic Prof [facility] 02-13-2024 Albumin [Mass/Vol] 4.2 g/dL Normal 3.2-5.0 [facility] Comment on above: Performed By: #### L 501.2450, L500.4050, L100.0100 #### [facility] [address] [place], [address] Albumin/Globulin [Mass ratio] 1.3 {ratio} Normal 0.9-2.4 [facility] Comment on above: Performed By: #### L 501.2450, L500.4050, L100.0100 #### [facility] [address] [place], [address] ALK P 48 U/L Normal 45-117 [facility] Comment on above: Performed By: #### L 501.2450, [id number], L100.0100 #### [facility] [address] [place], [address] ALT [Catalytic activity/Vol] 12 U/L Low 13-56 [facility] Comment on above: Performed By: #### L 501.2450, L500.4050, L100.0100 #### [facility] [address] [place], [address] AST [Catalytic activity/Vol] 11 U/L Low 15-37 [facility] Comment on above: Performed By: #### L 501.2450, L500.4050, L100.0100 #### [facility] [address] [place], [address] Bilirubin [Mass/Vol] 0.40 mg/dL Normal 0.20-1.00 [facility] Comment on above: Result Comment: For patients on eltrombopag therapy, use of Dimension [place] TBIL is not recommended. Performed By: #### L 501.2450, L500.4050, L100.0100 #### [facility] [address] [place], [address] BUN/CRE 10.8 RATIO Normal 10-20 [facility] Comment on above: Performed By: #### L 501.2450, L500.4050, L100.0100 #### [facility] [address] [place], [address] CA,Total 9.6 mg/dL Normal 8.5-10.1 [facility] Comment on above: Performed By: #### L 501.2450, L500.4050, L100.0100 #### [facility] [address] [place], [address] Chloride [Moles/Vol] 107 mmol/L Normal 98-107 [facility] Comment on above: Performed By: #### L 501.2450, L500.4050, L100.0100 #### [facility] [address] [place], [address] CO2 [Moles/Vol] 24.0 mmol/L Normal 21.0-32.0 [facility] Comment on above: Performed By: #### L 501.2450, L500.4050, L100.0100 #### [facility] [address] [place], [address] Creatinine [Mass/Vol] 0.65 mg/dL Normal 0.55-1.02 [facility] Comment on above: Result Comment: The validity of the calculated GFR GFRAA in patients over 70 years has not been determined. Clinical correlation is essential. Performed By: #### L 501.2450, L500.4050, L100.0100 #### [facility] [address] [place], [address] ECRCL 115.95 ml/min Normal [facility] Comment on above: Performed By: #### L 501.2450, L500.4050, L100.0100 #### [facility] [address] [place], [address] EST GFR - AA 140 mL/min Normal >60 [facility] Comment on above: Result Comment: Afri can Japanese GFR Calc Performed By: #### L 501.2450, L500.4050, L100.0100 #### [facility] [address] [place], [address] GAP 8 Normal 5-15 [facility] Comment on above: Performed By: #### L 501.2450, L500.4050, L100.0100 #### [facility] [address] [place], [address] GFR/1.73 sq M.predicted among non-blacks MDRD (S/P/Bld) [Vol rate/Area] 116 mL/min/{1.73_m2} Normal >60 [facility] Comment on above: Result Comment: Non- GFR Calc Performed By: #### L 501.2450, L500.4050, L100.0100 #### [facility] [address] [place], [address] Globulin (S) [Mass/Vol] 3.3 g/dL Normal 2.2-4.2 [facility] Comment on above: Performed By: #### L 501.2450, L500.4050, L100.0100 #### [facility] [address] [place], [address] Glucose [Mass/Vol] 84 mg/dL Normal 74-106 [facility] Comment on above: Performed By: #### L 501.2450, L500.4050, L100.0100 #### [facility] [address] [place], [address] Potassium [Moles/Vol] 3.7 mmol/L Normal 3.5-5.1 [facility] Comment on above: Performed By: #### L 501.2450, L500.4050, L100.0100 #### [facility] [address] [place], [address] Sodium [Moles/Vol] 139 mmol/L Normal 136-145 [facility] Comment on above: Performed By: #### L 501.2450, L500.4050, L100.0100 #### [facility] [address] [place], [address] T PROT 7.5 g/dL Normal 6.4-8.2 [facility] Comment on above: Performed By: #### L 501.2450, L500.4050, L100.0100 #### [facility] [address] [place], [address] Urea nitrogen [Mass/Vol] 7 mg/dL Normal 7-18 [facility] Comment on above: Performed By: #### L 501.2450, L500.4050, L100.0100 #### [facility] [address] [place], [address] Emergency Department Summary on 02-13-2024 Emergency Department Summary [facility] Medical Records Department [address] [place] [address] Emergency Department Summary 02/13/24 MR#: [id number] Acct: [id number] Name: SOCORRO GONSALES Rep #: [id number] : 1995 28 From: Trent Carr DO PCP: MALI Cross Status:DEP ER Location: ED HPI HPI - GI History of Present Illness Chief Complaint: Abd Pain Informant: patient Abdominal Pain/Flank Pain Onset: Today Context: Gradual Onset Timing: Continuous Quality: Dull and Sharp Location: LUQ, RLQ and Right Flank Worsened by: - (Standing, walking) Relieved by: Nothing Nausea/Vomiting/Emesis GI Symptom: Positive for Nausea and Vomiting Onset: Today Quality: Positive for Nonbilious; Negative for Blood streaks, Coffee ground or Hematemesis Diarrhea/Melena/Hematoch ezia GI Symptom: Negative for Diarrhea, Melena or Hematochezia Associated Symptoms Associated Symptoms: Positive for Dysuria; Negative for Frequency, Hematuria or Urgency Narrative Narrative: Patient presents with abdominal pain that began today. Patient states it began around 1 PM today. Patient states it started gradually. Patient states it has been constant. Patient describes her pain as dull but became sharp. Patient states her pain started in the left upper quadrant and then radiated to the right lower quadrant and into her back. Patient states her pain is worse with standing and walking. Patient is nothing makes it better. Patient admits to some nausea and vomiting. Patient denies any hematemesis or coffee-ground emesis. Patient denies any diarrhea, melena, or hematochezia. Patient admits to some pain with urination. Patient denies any frequency or hematuria. Patient had a hysterectomy 2 years ago. PFSH PFSH Medical History (Updated 02/13/24 @ 23:[address] Trent Carr, DO) Gastroparesis Asthma Abdominal adhesions Endometriosis Home Medications ???Medication ???Instructions ???Recorded ???Last Taken ???Type pantoprazole 40 mg tablet,delayed 40 mg PO DAILY 02/13/24 Unknown History release Allergy/AdvReac Type Severity Reaction Status Date / Time codeine Allergy Rash Verified 02/13/24 19:55 gabapentin Allergy Other Verified 02/13/24 19:55 latex Allergy Rash Verified 02/13/24 19:55 Surgical History History of hysterectomy H/O tubal ligation History of appendectomy Hx of cholecystectomy Social History Smoking Status: Current every day smoker tobacco type: e-cigarettes ROS ROS ED Constitutional Constitutional ED: Denies chills or fever(s) Eyes Eyes: Denies blurry vision or change in vision ENT ENT ED: Denies rhinorrhea or sore throat Cardiovascular Cardiovascular: Denies chest pain or palpitations Respiratory/Chest Respiratory/Chest: Denies cough or dyspnea Gastrointestinal Gastrointestinal: Reports abdominal pain, nausea and vomiting; Denies diarrhea or melena Genitourinary Genitourinary ED: Reports dysuria; Denies hematuria or urinary frequency Musculoskeletal Musculoskeletal: Reports back pain and neck pain Integumentary Denies abscess or rash Neurologic Neurologic: Denies headache(s) or weakness Allergic/Immunologic Allergic/Immunologic ED: Denies mouth swelling or urticaria EXAM Physical Exam Const Vital Signs: 02/13/24 19:55 02/13/24 21:55 02/13/24 22:51 Temperature 96.9 F L 98.1 F 97.9 F Temperature Source Temporal Oral Oral Pulse Rate 85 63 68 Respiratory Rate 17 16 16 Blood Pressure 112/71 102/50 L 90/58 L Blood Pressure Mean 84 67 68 Pulse Ox 99 95 95 Oxygen Delivery Method Room Air Room Air Room Air 02/13/24 23:22 Temperature 98.1 F Temperature Source Pulse Rate 80 Respiratory Rate 16 Blood Pressure 100/64 Blood Pressure Mean 76 Pulse Ox 97 Oxygen Delivery Method Positive well nourished and well developed General Appearance ED: well developed and NAD HEENT Reports moist mucous membranes normocephalic and atraumatic Neck supple and no JVD Resp normal respiratory effort and clear to auscultation bilaterally Cardio regular rate and regular rhythm GI Palpation: soft and tender epigastric, LLQ, RLQ, LUQ, RUQ, periumbilical and suprapubic; Negative for rebound tenderness present Neuro CN's II-XII intact bilaterally, moves all extremities and no sensory deficits noted Sensorium / Orientation: alert Motor Exam: strength 5/5 throughout Psych mental status grossly normal MDM MDM MDM Narrative Medical decision making narrative: Differential diagnosis includes bowel obstruction, perforation, ureteral calculus, choledocholithiasis, pancreatitis, urinary tract infection, pyelonephritis, and viral illness. CT scan of the abdo (more content not included)... Normal [facility] Lipaseon 02-13-2024 Lipase [Catalytic activity/Vol] 44 U/L Normal 13-75 [facility] Comment on above: Result Comment: Elizabeth wong note: LIPASE revised reference range effective 22. New Lipase methodology. Expected to produce lower values than the previous assay method. NEW Reference Range: 13 - 75 U/L Performed By: #### L 501.2450, L500.4050, L100.0100 #### [facility] [address] [place], [address] Urinalysis, Completeon 02-12 EPI,SQUAMOUS 0-5 SEEN Normal 5-10 [facility] Comment on above: Order Comment: CLEAN CATCH Performed By: #### L 100.0100, L501.2450, L500.4050 #### [facility] [address] [place], [address] BACTERIA 0 SEEN Normal None Seen [facility] Comment on above: Order Comment: CLEAN CATCH Performed By: #### L 100.0100, L501.2450, L500.4050 #### [facility] [address] [place], [address] Mucus Ql (Urine sed) 0 SEEN Normal [facility] Comment on above: Order Comment: CLEAN CATCH Performed By: #### L 100.0100, L501.2450, L500.4050 #### [facility] [address] [place], [address] RBC 0 SEEN Normal 0-5 [facility] Comment on above: Order Comment: CLEAN CATCH Performed By: #### L 100.0100, L501.2450, L500.4050 #### [facility] [address] [place], [address] WBC 0 SEEN Normal 0-5 [facility] Comment on above: Order Comment: CLEAN CATCH Performed By: #### L 100.0100, L501.2450, L500.4050 #### [facility] [address] [place], [address] 36on 02-04-2024 36 Called pt and provid ed CS number. Thank you [facility] 36on 01-25-2024 36 Name of caller: Socorro Contact phone number: [phone] Relationship to Patient: patient Provider: Neptali Practice: gastro Chief Complaint/Reason for Call: patient is calling in needing to schedule their 4 hour gastroparesis. They will wait to hear back from the office at their earliest convenience to get this scheduled, please advise and thank you Best time of day caller can be reached: any Patient advised that office/PCP has 24-48 business hours to return their call: Yes [facility] 36on 01-24-2024 36 Name of caller: Socorro Contact phone number: Patient Relationship to Patient: patient Provider: Dr. Gunderson Practice: [facility] Gastroenterology: Chief Complaint/Reason for Call: Patient called in and stated, she needs to schedule a test and has not received a call. Best time of day caller can be reached: AM Patient advised that office/PCP has 24-48 business hours to return their call: N/A [facility] XR Abdomen and RF Gastrointe stinal tract upper W contrast [place] 12-02-2023 Small hiatal hernia without spontaneous gastroesophageal reflux. Retained food debris within stomach. Consider gastric emptying study. Report Dictated on Electronically Signed By: Peter Sibley MD Electronically Signed Date/Time: 12/02/2023 4:25 PM EDT [facility] Patient Name: SOCORRO ORELLANA : 1995 Exam Date/Time: 12/02/2023 14:15 Procedure: FL UPPER GI WITH KUB Ordering Provider: GUNDERSON JONATHAN Reason For Exam: NAUSEA AND VOMITING AIR CONTRAST UGI SERIES CLINICAL INDICATIONS:Nausea and vomiting for three years. Gastroparesis. Duodenal cyst. Lysis of multiple adhesions. COMPARISON:Upper GI 05/18/2019. FLUOROSCOPY DOSE: Ka,r= 173.9 mGy TECHNIQUE: Biphasic exam was performed with barium and air. FINDINGS: Barium and air are administered. The esophagus is studied in the upright as well as the horizontal positions. The esophagus is normal in course and caliber. There is a small hiatal hernia without spontaneous gastroesophageal reflux. Barium flows freely from the esophagus into the stomach. There is retained food debris in the stomach which can obscure small pathology. The visualized stomach and duodenum show normal mucosal patterns, with no discrete ulcer or mass. The visualized proximal jejunum is unremarkable. [facility] Peter Sibley MD - 12/02/2023 Patient Name: SOCORRO GONSALES : 1995 Exam Date/Time: 12/02/2023 14:15 Procedure: FL UPPER GI WITH KUB Ordering Provider: GUNDERSON JONATHAN Reason For Exam: NAUSEA AND VOMITING AIR CONTRAST UGI SERIES CLINICAL INDICATIONS:Nausea and vomiting for three years. Gastroparesis. Duodenal cyst. Lysis of multiple adhesions. COMPARISON:Upper GI 05/18/2019. FLUOROSCOPY DOSE: Ka,r= 173.9 mGy TECHNIQUE: Biphasic exam was performed with barium and air. FINDINGS: Barium and air are administered. The esophagus is studied in the upright as well as the horizontal positions. The esophagus is normal in course and caliber. There is a small hiatal hernia without spontaneous gastroesophageal reflux. Barium flows freely from the esophagus into the stomach. There is retained food debris in the stomach which can obscure small pathology. The visualized stomach and duodenum show normal mucosal patterns, with no discrete ulcer or mass. The visualized proximal jejunum is unremarkable. IMPRESSION: Small hiatal hernia without spontaneous gastroesophageal reflux. Retained food debris within stomach. Consider gastric emptying study. Report Dictated on Electronically Signed By: Peter Sibley MD Electronically Signed Date/Time: 12/02/2023 4:25 PM EDT [facility] Study observation (narrative) [facility] XR Abdomen and RF Gastrointe stinal tract upper W contrast POOrdered By: Peter Sibley on 12-02-2023 [facility] Work Phone: CNOVon 11-21-2023 CNOV Office Visit (UCTR ) -------- SOCORRO GONSALES ([id number]) 1995 F Date Time Provider Department 11/21/23 9:00 AM LEILANI ALVARADO [facility] During your visit today, we recorded the following information about you: Temperature Pulse Respiration Blood pressure 99.2 degrees 100/minute 18/minute 90/64 Weight 70.3 kg Leilani Alvarado PA 11/21/2023 9:19 AM Signed This note was created using OpenVPNter. Subjective Socorro Gonsales is a 28 year old female. HPI 28-year-old female presents for sore throat, ear pain, congestion, fevers x 1 week. Patient states that last week-Wednesday she started getting sore throat and nasal congestion. She states that she started getting right ear pain a few days ago. She states that she has felt feverish at home, but has not had a fever on her thermometer. Temp here 99.2 ?F. She did take Tylenol few hours ago. Patient has had bodyaches. She states that she has a lot of sinus pressure, sinus pain and headache. She states her daughter recently tested positive for strep. She had vomiting and diarrhea 3 days ago, but none since. Still able to eat and drink. PAST MEDICAL HISTORY Diagnosis Date Anemia anxiety Asthma PAST SURGICAL HISTORY Procedure Laterality Date LAPAROSCOPY W/RMVL ADNEXAL STRUCTURES Bilateral 04/28/2018 l/s bilateral salpingectomy PAST SURGICAL HISTORY OF wisdom teeth PAST SURGICAL HISTORY OF 03/2020 exploratory laparoscopy VAGINAL HYSTERECTOMY 2021 ALLERGIES Codeine, Gabapentin, Latex, Seasonal Allergies, and Zofran [Ondansetron] MEDICATIONS fluticasone (FLONASE) 50 mcg/actuation nasal spray Use 2 Sprays in each nostril once daily. Rinse mouth after use. albuterol HFA (PROVENTIL HFA, VENTOLIN HFA) 90 mcg/actuation inhaler Inhale 2 Puffs as instructed every 6 hours as needed for wheezing/shortness of breath. Brompheniramine-Pseudoep h-DM (BROMFED DM) 2-30-10 mg/5 mL syrup Take 10 mL by mouth four times a day as needed. (Patient not taking: Reported on 11/21/2023) pantoprazole DR (PROTONIX) 40 mg tablet Take 40 mg by mouth once daily. (Patient not taking: Reported on 11/21/2023) Brompheniramine-Pseudoep h-DM (BROMFED DM) 2-30-10 mg/5 mL syrup Take 10 mL by mouth four times a day as needed. (Patient not taking: Reported on 10/19/2023) fluticasone (FLONASE) 50 mcg/actuation nasal spray Use 2 Sprays in each nostril once daily. Rinse mouth after use. (Patient not taking: Reported on 10/19/2023) FAMILY HISTORY Problem Relation Age of Onset Heart Mother Seizures Mother Stroke Mother Multiple Sclerosis Mother Psychiatry Sister Manic Depression Hypertension Maternal Grandfather Breast Cancer Maternal Aunt Hypertension Maternal Uncle Social History Tobacco Use Smoking status: Former Years: 3 Types: Cigarettes Smokeless tobacco: Never Substance Use Topics Alcohol use: Yes Comment: rarely Drug use: No Review of Systems Constitutional: Positive for chills and fever. HENT: Positive for congestion, ear pain, sinus pressure, sinus pain and sore throat. Respiratory: Positive for cough. Negative for shortness of breath. Cardiovascular: Negative for chest pain. Gastrointestinal: Positive for diarrhea and vomiting. Negative for abdominal pain. Neurological: Positive for headaches. Objective BP 90/64 Pulse 100 Temp 37.3 ?C (99.2 ?F) Resp 18 Wt 70.3 kg (154 lb 15.7 oz) LMP 03/25/2022 SpO2 100% BMI 25.79 kg/m? Physical Exam Vitals and nursing note reviewed. Constitutional: General: She is not in acute distress. Appearance: Normal appearance. She is not toxic-appearing. HENT: Right Ear: Ear canal normal. A middle ear effusion is present. Left Ear: Tympanic membrane and ear canal normal. Nose: Mucosal edema and congestion present. Right Sinus: Maxillary sinus tenderness and frontal sinus tenderness present. Left Sinus: Maxillary sinus tenderness and frontal sinus tenderness present. Mouth/Throat: Mouth: Mucous membranes are moist. Pharynx: Uvula midline. Posterior oropharyngeal erythema present. No oropharyngeal exudate. Tonsils: No tonsillar abscesses. 1+ on the right. 1+ on the left. Eyes: Conjunctiva/sclera: Conjunctivae normal. Cardiovascular: Rate and Rhythm: Normal rate and regular rhythm. Pulmonary: Effort: Pulmonary effort is normal. Breath sounds: Normal breath sounds. Abdominal: General: Abdomen is flat. Palpations: Abdomen is soft. Tenderness: There is no abdominal tenderness. Neurological: Mental Status: She is alert. Assessment and Plan ASSESSMENT/PLAN: 1. Bacterial sinusitis - ICD9: 473.9, 041.9, ICD10: J32.9, B96.89 (primary diagnosis) - Will begin treatment with Augmentin 875 mg PO BID for 7 days - The patient should also be given OTC decongestants prn for the first 5-7 days of treatment. - Supportive care with plenty of fluids, rest, and analgesia p (more content not included)... Normal [facility] STREP A MOLECULAR (POC)on Procedural Control Valid Clereplaced by [facility] Strep A (POCT) Negative Negative [facility] Abdomen/Pelvis WITH Contrast on 10-21-2023 Abdomen/Pelvis WITH Contrast [facility] Services [address] [address] Abdomen/Pelvis WITH Contrast MR#: [id number] Acct: [id number] Name: SOCORRO GONSALES Rep #: [id number] : 1995 F 27 From: Garett elizabeth MD PCP: LIZETH CHURCHILL Status: REG ER Study: Abdomen/Pelvis WITH Contrast Date of Exam: Exam# [id number] Ordering Dr: Trent Carr DO [id number] STUDY: CT ABDOMEN AND PELVIS WITH CONTRAST REASON FOR EXAM: Female, 27 years old. Abdominal pain -- IV PO Contrast RADIATION DOSAGE (If Supplied By Facility): CTDIvol = ( 8.95 ) mGy, DLP = ( 587.77 ) mGycm TECHNIQUE: Transaxial images were obtained from the dome of the diaphragm to the symphysis pubis without oral contrast. IV 100mL Isovue-370 was administered. Sagittal and coronal images were reconstructed. Individualized dose optimization techniques were used for this CT. COMPARISON: Comparison is made with prior study dated July 17, 2020. FINDINGS: The visualized lung bases are unremarkable. The visualized portions of the heart are within normal limits. Normal liver. There are surgical clips in the gallbladder fossa consistent with a prior cholecystectomy. Normal spleen. Normal pancreas. Normal bilateral adrenal glands. Normal right kidney. Normal left kidney. Normal visualized stomach. Normal small intestine. Normal colon. There is non-visualization of the appendix. Normal abdominal aorta. Normal inferior vena cava. Normal retroperitoneum. Normal urinary bladder. Stable 2.5 cm hypodensity in the right iliac is muscle. Normal abdominal wall. Normal osseous structures. CT/Abdomen/Pelvis WITH Contrast IMPRESSION: Normal enhanced CT of the abdomen and pelvis. Electronically Signed: Garett Ba MD at 11:21 EDT , CC: Dr. Trent Carr DO; MALI CROSS Purchasing Associate: Signed Normal [facility] Absolute lymphocyte countOrd ered By: Trent Carr on 10-21-2023 Lymphocytes Auto (Unsp spec) [#/Vol] 1.63 10*3/uL 0.83-4.51 [facility] Automated lymphocyte count a s percentage of total leukocytesOrdered By: Trent Carr on 10-21-2023 Lymphocytes/100 WBC Auto (Unsp spec) 23.1 % 19-41 [facility] Basophil percentageOrdered B y: Trent Carr on 10-21-2023 Basophils/100 WBC (Bld) 0.6 % 0-1 [facility] Bilirubin [Mass/Vol] 0.60 mg/dL 0.20-1.00 [facility] Comment on above: For patients on eltr ombopag therapy, use of Dimension [place] TBIL is not recommended. Chloride [Moles/Vol] 109 mmol/L 98-107 [facility] Eosinophils/100 WBC (Bld) 2.1 % 0-5 [facility] Glucose [Mass/Vol] 85 mg/dL 74-106 [facility] Hemoglobin (Bld) [Mass/Vol] 13.7 g/dL 12.0-15.0 [facility] Monocytes/100 WBC (Bld) 5.5 % 0-10 [facility] Neutrophils (Bld) [#/Vol] 4.8 10*3/uL 2.0-7.7 [facility] Neutrophils/100 WBC (Bld) 68.6 % 47-70 [facility] Potassium [Moles/Vol] 3.7 mmol/L 3.5-5.1 [facility] Protein [Mass/Vol] 7.8 g/dL 6.4-8.2 [facility] Sodium [Moles/Vol] 140 mmol/L 136-145 [facility] WBC (Bld) [#/Vol] 7.1 10*3/uL 4.4-11.0 [facility] Basophil percentage 0 SEEN /hpf 0-5 [facility] Bilirubin Test strip Ql (U)O rdered By: Trent Carr on 10-21-2023 Bilirubin Ql (U) Negative Negative [facility] CBC W/Diff, Automatedon 10-07 Absolute Lymph 1.63 X10 3/uL Normal 0.83-4.51 [facility] Comment on above: Performed By: #### L 100.0100, L501.2450, L500.4050 #### [facility] [address] [place], [address] Absolute Neut 4.8 X10 3/uL Normal 2.0-7.7 [facility] Comment on above: Performed By: #### L 100.0100, L501.2450, L500.4050 #### [facility] [address] [place], [address] Basophils/100 WBC (Bld) 0.6 % Normal 0-1 [facility] Comment on above: Performed By: #### L 100.0100, L501.2450, L500.4050 #### [facility] [address] [place], [address] Eosinophils/100 WBC (Bld) 2.1 % Normal 0-5 [facility] Comment on above: Performed By: #### L 100.0100, L501.2450, L500.4050 #### [facility] [address] [place], [address] Erythrocyte distribution width (RBC) [Ratio] 12.2 % Normal 11.6-14.6 [facility] Comment on above: Performed By: #### L 100.0100, L501.2450, L500.4050 #### [facility] [address] [place], [address] Hematocrit (Bld) [Volume fraction] 40.4 % Normal 37-47 [facility] Comment on above: Performed By: #### L 100.0100, L501.2450, L500.4050 #### [facility] [address] [place], [address] Hemoglobin (Bld) [Mass/Vol] 13.7 g/dL Normal 12.0-15.0 [facility] Comment on above: Performed By: #### L 100.0100, L501.2450, L500.4050 #### [facility] [address] [place], [address] IG% 0.100 Normal 0.0-0.9 [facility] Comment on above: Result Comment: IG% - Immature Granulocytes (promyelocytes, myelocytes and metamyelocytes) > 1% indicates that a LEFT SHIFT is Present. Performed By: #### L 100.0100, L501.2450, L500.4050 #### [facility] [address] [place], [address] Lymphocytes/100 WBC (Bld) 23.1 % Normal 19-41 [facility] Comment on above: Performed By: #### L 100.0100, L501.2450, L500.4050 #### [facility] [address] [place], [address] MCH (RBC) [Entitic mass] 31.3 pg Normal 27.0-32.0 [facility] Comment on above: Performed By: #### L 100.0100, L501.2450, L500.4050 #### [facility] [address] [place], [address] MCHC (RBC) [Mass/Vol] 33.9 g/dL Normal 32-36 [facility] Comment on above: Performed By: #### L 100.0100, L501.2450, L500.4050 #### [facility] [address] [place], [address] MCV (RBC) [Entitic vol] 92.2 fL Normal 81-99 [facility] Comment on above: Performed By: #### L 100.0100, L501.2450, L500.4050 #### [facility] [address] [place], [address] Monocytes/100 WBC (Bld) 5.5 % Normal 0-10 [facility] Comment on above: Performed By: #### L 100.0100, L501.2450, L500.4050 #### [facility] [address] [place], [address] Neutrophils/100 WBC (Bld) 68.6 % Normal 47-70 [facility] Comment on above: Performed By: #### L 100.0100, L501.2450, L500.4050 #### [facility] [address] [place], [address] Nucleated RBC (Bld) [#/Vol] 0 10*3/uL Normal 0-5 [facility] Comment on above: Performed By: #### L 100.0100, L501.2450, L500.4050 #### [facility] [address] [place], [address] Platelet mean volume (Bld) [Entitic vol] 9.8 fL Normal 6.2-12.0 [facility] Comment on above: Performed By: #### L 100.0100, L501.2450, L500.4050 #### [facility] [address] [place], [address] Platelets (Bld) [#/Vol] 271 10*3/uL Normal 150-450 [facility] Comment on above: Performed By: #### L 100.0100, L501.2450, L500.4050 #### [facility] [address] [place], [address] RBC (Bld) [#/Vol] 4.38 10*6/uL Normal 4.2-5.4 [facility] Comment on above: Performed By: #### L 100.0100, L501.2450, L500.4050 #### [facility] [address] [place], [address] RDW SD 41.1 fl Normal 35.1-43.9 [facility] Comment on above: Performed By: #### L 100.0100, L501.2450, L500.4050 #### [facility] [address] [place], [address] WBC (Bld) [#/Vol] 7.1 10*3/uL Normal 4.4-11.0 [facility] Comment on above: Performed By: #### L 100.0100, L501.2450, L500.4050 #### [facility] [address] [place], [address] Comprehensive Metabolic Prof tnon 10-21-2023 Albumin [Mass/Vol] 4.1 g/dL Normal 3.2-5.0 [facility] Comment on above: Performed By: #### L 100.0100, L501.2450, L500.4050 #### [facility] [address] [place], [address] Albumin/Globulin [Mass ratio] 1.1 {ratio} Normal 0.9-2.4 [facility] Comment on above: Performed By: #### L 100.0100, L501.2450, L500.4050 #### [facility] [address] [place], [address] ALK P 48 U/L Normal 45-117 [facility] Comment on above: Performed By: #### L 100.0100, L501.2450, L500.4050 #### [facility] [address] [place], [address] ALT [Catalytic activity/Vol] 14 U/L Normal 13-56 [facility] Comment on above: Performed By: #### L 100.0100, L501.2450, L500.4050 #### [facility] [address] [place], [address] AST [Catalytic activity/Vol] 13 U/L Low 15-37 [facility] Comment on above: Performed By: #### L 100.0100, L501.2450, L500.4050 #### [facility] [address] [place], [address] Bilirubin [Mass/Vol] 0.60 mg/dL Normal 0.20-1.00 [facility] Comment on above: Result Comment: For patients on eltrombopag therapy, use of Dimension [place] TBIL is not recommended. Performed By: #### L 100.0100, L501.2450, L500.4050 #### [facility] [address] [place], [address] BUN/CRE 10.3 RATIO Normal 10-20 [facility] Comment on above: Performed By: #### L 100.0100, L501.2450, L500.4050 #### [facility] [address] [place], [address] CA,Total 9.0 mg/dL Normal 8.5-10.1 [facility] Comment on above: Performed By: #### L 100.0100, L501.2450, L500.4050 #### [facility] [address] [place], [address] Chloride [Moles/Vol] 109 mmol/L High 98-107 [facility] Comment on above: Performed By: #### L 100.0100, L501.2450, L500.4050 #### [facility] [address] [place], [address] CO2 [Moles/Vol] 24.0 mmol/L Normal 21.0-32.0 [facility] Comment on above: Performed By: #### L 100.0100, L501.2450, L500.4050 #### [facility] [address] [place], [address] Creatinine [Mass/Vol] 0.78 mg/dL Normal 0.55-1.02 [facility] Comment on above: Result Comment: The validity of the calculated GFR GFRAA in patients over 70 years has not been determined. Clinical correlation is essential. Performed By: #### L 100.0100, L501.2450, L500.4050 #### [facility] [address] [place], [address] ECRCL 107.00 ml/min Normal [facility] Comment on above: Performed By: #### L 100.0100, L501.2450, L500.4050 #### [facility] [address] [place], [address] EST GFR - AA 113 mL/min Normal >60 [facility] Comment on above: Result Comment: Afri can Japanese GFR Calc Performed By: #### L 100.0100, L501.2450, L500.4050 #### [facility] [address] [place], [address] GAP 7 Normal 5-15 [facility] Comment on above: Performed By: #### L 100.0100, L501.2450, L500.4050 #### [facility] [address] [place], [address] GFR/1.73 sq M.predicted among non-blacks MDRD (S/P/Bld) [Vol rate/Area] 94 mL/min/{1.73_m2} Normal >60 [facility] Comment on above: Result Comment: Non- GFR Calc Performed By: #### L 100.0100, L501.2450, L500.4050 #### [facility] [address] [place], [address] Globulin (S) [Mass/Vol] 3.7 g/dL Normal 2.2-4.2 [facility] Comment on above: Performed By: #### L 100.0100, L501.2450, L500.4050 #### [facility] [address] [place], [address] Glucose [Mass/Vol] 85 mg/dL Normal 74-106 [facility] Comment on above: Performed By: #### L 100.0100, L501.2450, L500.4050 #### [facility] [address] [place], [address] Potassium [Moles/Vol] 3.7 mmol/L Normal 3.5-5.1 [facility] Comment on above: Performed By: #### L 100.0100, L501.2450, L500.4050 #### [facility] [address] [place], [address] Sodium [Moles/Vol] 140 mmol/L Normal 136-145 [facility] Comment on above: Performed By: #### L 100.0100, L501.2450, L500.4050 #### [facility] [address] [place], [address] T PROT 7.8 g/dL Normal 6.4-8.2 [facility] Comment on above: Performed By: #### L 100.0100, L501.2450, L500.4050 #### [facility] [address] [place], [address] Urea nitrogen [Mass/Vol] 8 mg/dL Normal 7-18 [facility] Comment on above: Performed By: #### L 100.0100, L501.2450, L500.4050 #### [facility] [address] [place], [address] Determination of erythrocyte mean corpuscular volume (MCV)Ordered By: Trent Carr on 10-21-2023 MCV (RBC) [Entitic vol] 92.2 fL 81-99 [facility] Emergency Department Summary on 10-21-2023 Emergency Department Summary [facility] Medical Records Department [address] [place] [address] Emergency Department Summary 10/21/23 MR#: [id number] Acct: [id number] Name: SOCORRO GONSALES Rep #: [id number] : 1995 27 From: Trent Carr DO PCP: LIZETH CHURCHILL Status:DEP ER Location: ED HPI HPI - GI History of Present Illness Chief Complaint: Abd Pain Informant: patient Abdominal Pain/Flank Pain Onset: Yesterday Context: Sudden Onset Timing: Continuous Quality: Cramping Location: LUQ Worsened by: - (Activity) Relieved by: - (Laying down and heating pad) Nausea/Vomiting/Emesis GI Symptom: Positive for Nausea; Negative for Vomiting Diarrhea/Melena/Hematoch ezia GI Symptom: Negative for Diarrhea, Melena or Hematochezia Associated Symptoms Associated Symptoms: Negative for Dysuria, Frequency or Hematuria Narrative Narrative: Patient presents with abdominal pain that began yesterday. Patient states she has been having some nausea for the past 3 days. Patient denies any vomiting. Patient denies any hematemesis or coffee- ground emesis. Patient denies any diarrhea, melena, or hematochezia. Patient denies any dysuria, frequency, or hematuria. Patient states her abdominal pain began rather suddenly. Patient states it is mainly over the left side of her abdomen. Patient describes it as cramping. Patient states it has been constant. Patient states it is worse with activity. Patient states it is better with laying down and using a heating pad. [facility] History (Updated 10/21/23 @ 17:[address] Trent Carr DO) Abdominal adhesions Asthma Endometriosis Home Medications NK 10/21/23 [History Last Taken Unknown] Allergy/AdvReac Type Severity Reaction Status Date / Time codeine Allergy Rash Verified 10/21/23 07:42 gabapentin Allergy Other Verified 10/21/23 07:42 latex Allergy Rash Verified 10/21/23 07:42 Surgical History (Updated 10/21/23 @ 08:[address] Trent Carr DO) H/O tubal ligation History of appendectomy History of hysterectomy Hx of cholecystectomy Social History Smoking Status: Current every day smoker tobacco type: e-cigarettes ROS ROS ED Constitutional Constitutional ED: Reports fever(s); Denies chills Eyes Eyes: Denies blurry vision or change in vision ENT ENT ED: Reports rhinorrhea and sore throat Cardiovascular Cardiovascular: Denies chest pain or palpitations Respiratory/Chest Respiratory/Chest: Reports cough; Denies dyspnea Gastrointestinal Gastrointestinal: Reports abdominal pain and nausea; Denies vomiting Genitourinary Genitourinary ED: Denies dysuria or hematuria Musculoskeletal Musculoskeletal: Reports back pain; Denies neck pain Integumentary Denies abscess or rash Neurologic Neurologic: Reports headache(s); Denies weakness Allergic/Immunologic Allergic/Immunologic ED: Denies mouth swelling or urticaria EXAM Physical Exam Const Vital Signs: 10/21/23 07:42 10/21/23 09:41 10/21/23 11:00 Temperature 97.3 F L Temperature Source Temporal Pulse Rate 84 65 59 L Respiratory Rate 14 16 18 Blood Pressure 110/74 131/82 H Blood Pressure Mean 86 98 Pulse Ox 100 99 99 Oxygen Delivery Method Room Air Room Air Room Air 10/21/23 13:00 10/21/23 13:04 Temperature 97.3 F L Temperature Source Pulse Rate 71 71 Respiratory Rate 16 16 Blood Pressure 94/68 94/68 Blood Pressure Mean 76 76 Pulse Ox 99 99 Oxygen Delivery Method Room Air Positive well nourished and well developed General Appearance ED: well developed and NAD HEENT Reports moist mucous membranes Neck supple and no JVD Resp normal respiratory effort and clear to auscultation bilaterally Cardio regular rate and regular rhythm GI non-distended Palpation: soft and tender LLQ and LUQ; Negative for guarding or rebound tenderness present Neuro CN's II-XII intact bilaterally, moves all extremities and no sensory deficits noted Sensorium / Orientation: alert Motor Exam: strength 5/5 throughout Psych mental status grossly normal MDM MDM MDM Narrative Medical decision making narrative: Differential diagnosis includes bowel obstruction, perforation, gastritis, gastroenteritis, urinary tract infection, pyelonephritis, ureteral calculus, pancreatitis, and viral illness. CBC will be obtained to assess for leukocytosis and anemia. Comprehensive metabolic profile will be obtained to assess for hepatic function, renal function, and electrolyte abnormality. Lipase will be obtained to assess for pancreatitis. Urinalysis will be obtained to assess for urinary tract infection or hematuria. CT scan of the abdomen and pelvis will be obtained to assess for bowel obstruction and perforation. Lab Data Attestat (more content not included)... Normal [facility] Erythrocyte distribution wid th ratioOrdered By: Trent Carr on 10-21-2023 Erythrocyte distribution width (RBC) [Ratio] 12.2 % 11.6-14.6 [facility] Erythrocyte distribution wid th standard deviationOrdered By: Trent Carr on 10-21-2023 Erythrocyte distribution width (RBC) [Entitic vol] 41.1 fL 35.1-43.9 [facility] Hematocrit Auto (Bld) [Volum e fraction]Ordered By: Trent Carr on 10-21-2023 Hematocrit (Bld) [Volume fraction] 40.4 % 37-47 [facility] Immature granulocytes/100 WB C Auto (Bld)Ordered By: Trent Carr on 10-21-2023 Immature granulocytes/100 WBC (Bld) 0.100 % 0.0-0.9 [facility] Comment on above: IG% - Immature Granu locytes (promyelocytes, myelocytes and metamyelocytes) > 1% indicates that a LEFT SHIFT is Present. Ketones Test strip Ql (U)Ord ered By: Trent Carr on 10-21-2023 Ketones Ql (U) Negative Negative [facility] - Chemistry and C hemistry - challengeOrdered By: Trent Carr on 10-21-2023 Albumin/Globulin [Mass ratio] 1.1 {ratio} 0.9-2.4 [facility] ALP [Catalytic activity/Vol] 48 U/L 45-117 [facility] ALT [Catalytic activity/Vol] 14 U/L 13-56 [facility] CO2 [Moles/Vol] 24.0 mmol/L 21.0-32.0 [facility] Globulin (S) [Mass/Vol] 3.7 g/dL 2.2-4.2 [facility] Lipase [Catalytic activity/Vol] 51 U/L 13-75 [facility] Comment on above: Please note:LIPASE r evised reference range effective 22. New Lipase methodology. Expected to produce lower values than the previous assay method. NEW Reference Range: 13 - 75 U/L Urea nitrogen/Creatinine [Mass ratio] 10.3 mg/mg 10-20 [facility] - Hematology and Cell countsOrdered By: Trent Carr on 10-21-2023 MCH (RBC) [Entitic mass] 31.3 pg 27.0-32.0 [facility] MCHC (RBC) [Mass/Vol] 33.9 g/dL 32-36 [facility] Nucleated RBC/100 WBC (Bld) [Ratio] 0 % 0-5 [facility] Platelet mean volume (Bld) [Entitic vol] 9.8 fL 6.2-12.0 [facility] Platelets (Bld) [#/Vol] 271 10*3/uL 150-450 [facility] Lipaseon 10-21-2023 Lipase [Catalytic activity/Vol] 51 U/L Normal 13-75 [facility] Comment on above: Result Comment: Elizabeth wong note: LIPASE revised reference range effective 22. New Lipase methodology. Expected to produce lower values than the previous assay method. NEW Reference Range: 13 - 75 U/L Performed By: #### L 100.0100, L501.2450, L500.4050 #### [facility] [address] [place] [address], [address] Mucus LM Ql (Urine sed)Order ed By: Trent Carr on 10-21-2023 Mucus Ql (Urine sed) 0 SEEN /hpf [facility] Nitrite Test strip Ql (U)Ord ered By: Trent Carr on 10-21-2023 Nitrite Ql (U) Negative Negative [facility] No Panel InformationOrdered By: Trent Carr on 10-21-2023 Estimated Creatinine Clearance Calc 107.00 ml/min [facility] Estimated GFR (MDRD) Amer 113 mL/min >60 [facility] Comment on above: GFR Calc Estimated GFR (MDRD) Non-Af Amer 94 mL/min >60 [facility] Comment on above: Non- GFR Calc Urine RBC 0 SEEN /hpf 0-5 [facility] Protein Test strip Ql (U)Ord ered By: Trent Carr on 10-21-2023 Protein Ql (U) Negative Negative [facility] RBC Auto (Bld) [#/Vol]Ordere d By: Trent Carr on 10-21-2023 RBC (Bld) [#/Vol] 4.38 10*6/uL 4.2-5.4 [facility] Serum or plasma calcium aicha urement (mass/volume)Ordered By: Trent Carr on 10-21-2023 Calcium [Mass/Vol] 9.0 mg/dL 8.5-10.1 [facility] Serum or plasma creatinine m easurement (mass/volume)Ordered By: Trent Carr on 10-21-2023 Creatinine [Mass/Vol] 0.78 mg/dL 0.55-1.02 [facility] Comment on above: The validity of the calculated GFR & GFRAA in patients over 70 years has not been determined. Clinical correlation is essential. Serum or plasma urea nitroge n measurement (mass/volume)Ordered By: Trent Carr on 10-21-2023 Urea nitrogen [Mass/Vol] 8 mg/dL 7-18 [facility] Squamous epithelial cells de tection in urine sediment by light microscopyOrdered By: Trent Carr on 10-21-2023 Epithelial cells.squamous LM Ql (Urine sed) 0-5 SEEN /hpf 5-10 [facility] Thin prep Papanicolaou smear with manual screeningOrdered By: Trent Carr on 10-21-2023 Thin prep Papanicolaou smear with manual screening 4.1 g/dL 3.2-5.0 [facility] Thin prep Papanicolaou smear with manual screening 13 U/L 15-37 [facility] Thin prep Papanicolaou smear with manual screening 7 5-15 [facility] Urinalysis, Completeon 10-20 EPI,SQUAMOUS 0-5 SEEN Normal 5-10 [facility] Comment on above: Order Comment: CLEAN CATCH Performed By: #### L 100.0100, L501.2450, L500.4050 #### [facility] [address] [place], [address] BACTERIA 0 SEEN Normal None Seen [facility] Comment on above: Order Comment: CLEAN CATCH Performed By: #### L 100.0100, L501.2450, L500.4050 #### [facility] [address] [place], [address] Mucus Ql (Urine sed) 0 SEEN Normal [facility] Comment on above: Order Comment: CLEAN CATCH Performed By: #### L 100.0100, L501.2450, L500.4050 #### [facility] [address] [place], [address] RBC 0 SEEN Normal 0-5 [facility] Comment on above: Order Comment: CLEAN CATCH Performed By: #### L 100.0100, L501.2450, L500.4050 #### [facility] [address] [place], [address] WBC 0 SEEN Normal 0-5 [facility] Comment on above: Order Comment: CLEAN CATCH Performed By: #### L 100.0100, L501.2450, L500.4050 #### [facility] [address] [place], [address] Urine blood detectionOrdered By: Trent Carr on 10-21-2023 RBC Ql (U) Negative Negative [facility] Urine clarityOrdered By: Emma Carr on 10-21-2023 Clarity (U) Clear Clear [facility] Urine color determinationOrd ered By: Trent Carr on 10-21-2023 Color (U) Yellow Yellow [facility] Urine glucose detectionOrder ed By: Trent Carr on 10-21-2023 Glucose Ql (U) Normal mg/dl Normal [facility] Urine leukocyte esterase det ection by dipstickOrdered By: Trent Carr on 10-21-2023 Leukocyte esterase Test strip Ql (U) 25 /ul Negative [facility] Urine pHOrdered By: Trent allison on 10-21-2023 pH (U) 6.0 [pH] 5.0 - 8.0 [facility] Urine sediment bacteria coun t by microscopy (number/high power field)Ordered By: Trent Carr on 10-21-2023 Bacteria LM.HPF (Urine sed) [#/Area] 0 /[HPF] None Seen [facility] Urine specific gravity measu rementOrdered By: Trent Carr on 10-21-2023 Specific gravity (U) [Rel density] 1.010 1.002-1.030 [facility] Urine urobilinogen measureme ntOrdered By: Trent Carr on 10-21-2023 Urobilinogen Ql (U) Normal mg/dl Normal [facility] Basic metabolic 1998 panelon 08-05-2023 Anion gap [Moles/Vol] 10 mmol/L 3 - 13 mmol/L Calcium [Mass/Vol] 9.3 mg/dL 8.4 - 10. 4 mg/dL Chloride [Moles/Vol] 110 mmol/L High 98 - 10 7 mmol/L CO2 [Moles/Vol] 21 mmol/L Low 22 - 30 mmol/L Creatinine [Mass/Vol] 0.65 mg/dL 0.52 - 1.04 mg/dL GFR/1.73 sq M.predicted MDRD (S/P/Bld) [Vol rate/Area] - [facility] Comment on above: Calculation based on the Chronic Kidney Disease Epidemiology Collaboration (CKD-EPI) equation refit without adjustment for race Glucose [Mass/Vol] 107 mg/dL High 70 - 100 mg/dL [facility] Interpretation and review of laboratory results Abnormal Potassium [Moles/Vol] 3.9 mmol/L 3.5 - 5.1 mmol/L Sodium [Moles/Vol] 140 mmol/L 135 - 145 mmol/L Urea nitrogen [Mass/Vol] 11 mg/dL 7 - 17 mg/dL CBC panel Auto (Bld)on 08-05 Erythrocyte distribution width (RBC) [Ratio] 12.3 % 11.5 - 14.5 % Hematocrit (Bld) [Volume fraction] 40.1 % 35.0 - 47.0 % Hemoglobin (Bld) [Mass/Vol] 13.9 g/dL 11.7 - 16.0 g/dL Interpretation and review of laboratory results Normal MCH (RBC) [Entitic mass] 31.0 pg 26.0 - 34.0 pg MCHC (RBC) [Mass/Vol] 34.7 % 32.0 - 36.0 % MCV (RBC) [Entitic vol] 89.3 fL 80.0 - 98.0 fL Platelet mean volume (Bld) [Entitic vol] 9.4 fL 7.4 - 12.4 fL Comment on above: MPV is a calculated measurement using platelet volume ratio Platelets (Bld) [#/Vol] 360 10*3/uL 140 - 440 10*3/uL RBC (Bld) [#/Vol] 4.49 10*6/uL 3.8 - 5.20 10*6/uL WBC (Bld) [#/Vol] 6.9 10*3/uL 3.6 - 10.7 10*3/uL [facility] Hepatic function 2000 panelo n 08-05-2023 Albumin [Mass/Vol] 4.7 g/dL 3.5 - 5.0 g/dL [facility] ALP [Catalytic activity/Vol] 56 U/L 38 - 126 U/L ALT [Catalytic activity/Vol] 20 U/L 0 - 34 U/L AST [Catalytic activity/Vol] 28 U/L 15 - 46 U/L Bilirubin [Mass/Vol] 0.4 mg/dL 0.2 - 1 .3 mg/dL Bilirubin.conjugated [Mass/Vol] 0.0 mg/dL 0.0 - 0.3 mg/dL Protein [Mass/Vol] 7.8 g/dL 6.3 - 8.2 g/dL [facility] Laboratory - Chemistry and C hemistry - challengeon 08-05-2023 HCG.beta subunit Qn Females <=5 mIU/mL Lipase [Catalytic activity/Vol] 200 U/L 23 - 300 U/L No Panel Informationon 08-05 Values in should double every 2 to 3 days for the first 6 weeks. Elevated concentrations of human chorionic gonadotropin (hCG) measured in the first trimester of are observed in normal , but may serve as an indication of chorionic carcinoma, hydatiform mole, or multiple . Decreasing hCG concentrations indicate threatened or missed , recent termination of , ectopic , gestosis or intrauterine . Kelley- and postmenopausal females may have detectable hCG concentrations (< or = to 14 mIU/mL) due to pituitary production of hCG. Serum follicle-stimulating hormone measurement may aid in ruling-out in this population. Cutoffs of greater than 20 to 45 mIU/mL have been suggested and are method dependent. False-elevations (called phantom human chorionic gonadotropin: hCG) may occur with patients who have human antianimal or heterophilic antibodies. Some specimens may not dilute linearly due to abnormal forms of hCG. Elevated hCG concentrations not associated with are found in patients with other diseases such as tumors of the germ cells, ovaries, bladder, pancreas, stomach, lungs, and liver. This test is not intended to detect or monitor tumors or gestational trophoblastic disease. [facility] Interpretation and review of laboratory results Normal [facility] INFLUENZA A&B MOLECULAR (POC )on 07-23-2023 Flu A (POCT) Negative Negative [facility] Flu B (POCT) Negative Negative [facility] Procedural Control Valid [facility] STREP A MOLECULAR (POC)on Procedural Control Valid [facility] Strep A (POCT) Negative Negative [facility] STREP A MOLECULAR (POC)on Procedural Control Valid [facility] Strep A (POCT) Negative Negative [facility] XR CHEST 2V FRONTAL/LATon [facility] XR Chest PA and Lateralon IMPRESSION: No acute radiographic abnormality. Purchasing Associate: CIPRIANO Transcribe Date/Time: Jul 08 2023 8:27A Dictated by : DINAH SAM MD This examination was interpreted and the report reviewed and electronically signed by: DINAH SAM MD on Jul 08 2023 8:28AM [facility] DIVISION OF RADIOLOGY * * *Final Report* * * DATE OF EXAM: Jul 08 2023 8:12AM WOX [id number] - XR CHEST 2V FRONTAL/LAT / PROCEDURE REASON: Acute cough * * * * Physician Interpretation * * * * EXAMINATION: CHEST RADIOGRAPH (2 VIEW FRONTAL & LATERAL) CLINICAL HISTORY: Acute cough MQ: XC2_6 EXAM DATE/TIME: 07/08/2023 8:12 AM COMPARISON: Chest radiograph 12/29/2018 RESULT: Lines, tubes, and devices: None. Lungs and pleura: No consolidation. No lung mass. No pleural effusion. No pneumothorax. Cardiomediastinal silhouette: Normal cardiomediastinal silhouette. Bones and soft tissues: No suspicious osseous lesions.Right upper quadrant surgical clips. DIVISION OF RADIOLOGY Provider, Chantale [facility] - 07/08/2023 * * *Final Report* * * DATE OF EXAM: Jul 08 2023 8:12AM WOX 5291 - XR CHEST 2V FRONTAL/LAT / PROCEDURE REASON: Acute cough * * * * Physician Interpretation * * * * EXAMINATION: CHEST RADIOGRAPH (2 VIEW FRONTAL & LATERAL) CLINICAL HISTORY: Acute cough MQ: XC2_6 EXAM DATE/TIME: 07/08/2023 8:12 AM COMPARISON: Chest radiograph 12/29/2018 RESULT: Lines, tubes, and devices: None. Lungs and pleura: No consolidation. No lung mass. No pleural effusion. No pneumothorax. Cardiomediastinal silhouette: Normal cardiomediastinal silhouette. Bones and soft tissues: No suspicious osseous lesions.Right upper quadrant surgical clips. IMPRESSION IMPRESSION: No acute radiographic abnormality. Purchasing Associate: CIPRIANO Transcribe Date/Time: Jul 08 2023 8:27A Dictated by : DINAH SAM MD This examination was interpreted and the report reviewed and electronically signed by: DINAH SAM MD on Jul 08 2023 8:28AM EST [facility] Radiology Study observation (narrative) [facility] XR Chest PA and LateralOrder ed By: [facility] Provider on 07-08-2023 [facility] MR Breast - bilateral WO and W contrast Daron 05-25-2023 No MRI evidence of malignancy in either breast. No findings seen to explain the bilateral nipple discharge. ASSESSMENT: Category 1 Negative RECOMMENDATION: Clinical correlation Bilateral COMMENTS: Report Dictated on Electronically Signed By: Marlene Whyte MD Electronically Signed Date/Time: 05/25/2023 8:59 AM EDT [facility] Patient Name: SOCORRO ORELLANA : 1995 Exam Date/Time: 05/25/2023 08:37 Procedure: BI MR BREAST BILATERAL W AND WO CONTRAST W CAD Ordering Provider: DE LOS SANTOS KYLE Reason For Exam: MRI TECHNIQUE: Clinical Indication: Breast MRI Diagnostic. Clinical Indication: Increase risk of breast cancer, bilateral nipple discharge Contrast: Gadavist 7.0 mL IV. Bilateral breast MRI was performed with a dedicated breast coil. Fat saturated T2 weighted and T1 weighted axial images were obtained of both breasts. Dynamic pre-and post contrast axial image sets were obtained of both breasts after intravenous injection of gadolinium based contrast. Delayed post contrast sagittal images were also obtained. Subtraction images and MIP images were generated. Interpretation was made in conjunction with CAD. The patient's prior imaging was reviewed. FINDINGS: There is mild bilateral background enhancement. Right Breast: There is no suspicious mass or non-mass enhancement in the right breast. Left Breast: There is no suspicious mass or non-mass enhancement in the left breast. Other: No axillary or internal mammary lymphadenopathy is appreciated. [facility] Marlene Whyte MD - 05/25/2023 Patient Name: SOCORRO GONSALES : 1995 Exam Date/Time: 05/25/2023 08:37 Procedure: BI MR BREAST BILATERAL W AND WO CONTRAST W CAD Ordering Provider: DE LOS SANTOS KYLE Reason For Exam: MRI TECHNIQUE: Clinical Indication: Breast MRI Diagnostic. Clinical Indication: Increase risk of breast cancer, bilateral nipple discharge Contrast: Gadavist 7.0 mL IV. Bilateral breast MRI was performed with a dedicated breast coil. Fat saturated T2 weighted and T1 weighted axial images were obtained of both breasts. Dynamic pre-and post contrast axial image sets were obtained of both breasts after intravenous injection of gadolinium based contrast. Delayed post contrast sagittal images were also obtained. Subtraction images and MIP images were generated. Interpretation was made in conjunction with CAD. The patient's prior imaging was reviewed. FINDINGS: There is mild bilateral background enhancement. Right Breast: There is no suspicious mass or non-mass enhancement in the right breast. Left Breast: There is no suspicious mass or non-mass enhancement in the left breast. Other: No axillary or internal mammary lymphadenopathy is appreciated. IMPRESSION: No MRI evidence of malignancy in either breast. No findings seen to explain the bilateral nipple discharge. ASSESSMENT: Category 1 Negative RECOMMENDATION: Clinical correlation Bilateral COMMENTS: Report Dictated on Electronically Signed By: Marlene Whyte MD Electronically Signed Date/Time: 05/25/2023 8:59 AM EDT Radiology Study observation (narrative) MR Breast - bilateral WO and W contrast IVOrdered By: Marlene Whyte on 05-25-2023 [facility] [employer] Work Phone: US Pelvis transvaginalon Unremarkable ovaries . No other adnexal mass. Trace amount of free fluid again noted Report Dictated on Electronically Signed By: Jaguar Cochran MD Electronically Signed Date/Time: 05/18/2023 3:25 AM EDT [facility] [place] RAD[facility]OLOGY SYSTEM Patient Name: SOCORRO ORELLANA : 1995 Exam Date/Time: 05/18/2023 02:47 Procedure: US PELVIS TRANSVAGINAL Ordering Provider: CARDOZO JOSHUA Reason For Exam: LOWER ABDOMINAL PAIN ULTRASOUND PELVIS: CLINICAL INDICATION: Abdominal pain COMPARISON: CT from four hours ago TECHNIQUE: Transvaginal evaluation of the pelvis including color flow and spectral Doppler imaging FINDINGS: Uterus: Absent Right Ovary: Size: 4 x 2 x 2 cm Mass: none Cyst: none Color flow/Doppler waveform: normal Left Ovary: Size: 3.5 x 2.5 x 1.7 cm Mass: none Cyst: none Color flow/Doppler waveform: normal Free fluid: Trace amount of free fluid [facility] Jaguar Cochran MD - 05/18/2023 Patient Name: SOCORRO GONSALES : 1995 Exam Date/Time: 05/18/2023 02:47 Procedure: US PELVIS TRANSVAGINAL Ordering Provider: CARDOZO JOSHUA Reason For Exam: LOWER ABDOMINAL PAIN ULTRASOUND PELVIS: CLINICAL INDICATION: Abdominal pain COMPARISON: CT from four hours ago TECHNIQUE: Transvaginal evaluation of the pelvis including color flow and spectral Doppler imaging FINDINGS: Uterus: Absent Right Ovary: Size: 4 x 2 x 2 cm Mass: none Cyst: none Color flow/Doppler waveform: normal Left Ovary: Size: 3.5 x 2.5 x 1.7 cm Mass: none Cyst: none Color flow/Doppler waveform: normal Free fluid: Trace amount of free fluid IMPRESSION: Unremarkable ovaries. No other adnexal mass. Trace amount of free fluid again noted Report Dictated on Electronically Signed By: Jaguar Cochran MD Electronically Signed Date/Time: 05/18/2023 3:25 AM EDT Radiology Study observation (narrative) [facility] [employer] US Pelvis transvaginalOrdere d By: Jaguar Cochran on 05-18-2023 [facility] [employer] Work Phone: Basic metabolic 1998 panelon 05-17-2023 Anion gap [Moles/Vol] 13 mmol/L 3 - 13 mmol/L [facility] [employer] Calcium [Mass/Vol] 9.1 mg/dL 8.4 - 10. 4 mg/dL Chloride [Moles/Vol] 106 mmol/L 98 - 10 7 mmol/L CO2 [Moles/Vol] 23 mmol/L 22 - 30 mmol/L Creatinine [Mass/Vol] 0.61 mg/dL 0.52 - 1.04 mg/dL GFR/1.73 sq M.predicted MDRD (S/P/Bld) [Vol rate/Area] - PINF Comment on above: Calculation based on the Chronic Kidney Disease Epidemiology Collaboration (CKD-EPI) equation refit without adjustment for race Glucose [Mass/Vol] 86 mg/dL 70 - 100 mg/dL [facility] Interpretation and review of laboratory results Abnormal Potassium [Moles/Vol] 3.3 mmol/L Low 3.5 - 5.1 mmol/L Sodium [Moles/Vol] 141 mmol/L 135 - 145 mmol/L Urea nitrogen [Mass/Vol] 6 mg/dL Low 7 - 17 mg/dL CBC W Auto Differential pane l (Bld)Ordered By: Antonietta Basilio on 05-17-2023 Basophils (Bld) [#/Vol] 0.1 10*3/uL 0.0 - 0.2 10*3/uL Basophils/100 WBC (Bld) 0.6 % 0.0 - 2.0 % Eosinophils (Bld) [#/Vol] 0.3 10*3/uL 0.0 - 0.5 10*3/uL Eosinophils/100 WBC (Bld) 3.4 % 1.0 - 6.0 % Erythrocyte distribution width (RBC) [Ratio] 12.2 % 11.5 - 14.5 % Hematocrit (Bld) [Volume fraction] 36.6 % 35.0 - 47.0 % Hemoglobin (Bld) [Mass/Vol] 12.8 g/dL 11.7 - 16.0 g/dL Immature granulocytes (Bld) [#/Vol] 0.0 10*3/uL NINF - 0.0 10*3/uL [facility] Immature granulocytes/100 WBC (Bld) 0.3 % High NINF - 0.0 % Interpretation and review of laboratory results Abnormal Lymphocytes (Bld) [#/Vol] 3.0 10*3/uL 1.0 - 4.3 10*3/uL Lymphocytes/100 WBC (Bld) 38.7 % 20.0 - 40.0 % MCH (RBC) [Entitic mass] 31.1 pg 26.0 - 34.0 pg MCHC (RBC) [Mass/Vol] 35.0 % 32.0 - 36.0 % MCV (RBC) [Entitic vol] 89.1 fL 80.0 - 98.0 fL Monocytes (Bld) [#/Vol] 0.5 10*3/uL 0.0 - 0.8 10*3/uL Monocytes/100 WBC (Bld) 6.1 % 2.0 - 10.0 % Neutrophils (Bld) [#/Vol] 3.9 10*3/uL 1.8 - 7.0 10*3/uL [facility] Neutrophils/100 WBC (Bld) 50.9 % 40.0 - 80.0 % Platelet mean volume (Bld) [Entitic vol] 9.3 fL 7.4 - 12.4 fL Comment on above: MPV is a calculated measurement using platelet volume ratio Platelets (Bld) [#/Vol] 296 10*3/uL 140 - 440 10*3/uL RBC (Bld) [#/Vol] 4.11 10*6/uL 3.8 - 5.20 10*6/uL WBC (Bld) [#/Vol] 7.7 10*3/uL 3.6 - 10.7 10*3/uL This is an appended report. These results have been appended to a previously verified report. [facility] CT Abdomen and Pelvis W cont rast Daron 05-17-2023 Slight free fluid in the pelvis. Report Dictated on Electronically Signed By: Chucho Peck MD Electronically Signed Date/Time: 05/17/2023 11:08 PM EDT [facility] Patient Name: SOCORRO ORELLANA : 1995 Exam Date/Time: 05/17/2023 23:05 Procedure: CT ABDOMEN PELVIS W CONTRAST Ordering Provider: YATES KEVIN Reason For Exam: RLQ abdominal pain (Age >= 14y) CT abdomen and pelvis with contrast HISTORY: Right lower quadrant pain Protocol: 3 mm axial images with intravenous contrast Dose reduction was employed with automated exposure control. COMPARISON: 09/24/2022 The liver, spleen, pancreas, adrenals and kidneys are normal. The gallbladder has been removed. No evidence of bowel inflammation or bowel obstruction. The appendix has been removed. Slight free fluid in the pelvis. The bladder is unremarkable. [facility] Chucho Peck MD - 05/17/2023 Patient Name: SOCORRO GONSALES : 1995 Exam Date/Time: 05/17/2023 23:05 Procedure: CT ABDOMEN PELVIS W CONTRAST Ordering Provider: YATES KEVIN Reason For Exam: RLQ abdominal pain (Age >= 14y) CT abdomen and pelvis with contrast HISTORY: Right lower quadrant pain Protocol: 3 mm axial images with intravenous contrast Dose reduction was employed with automated exposure control. COMPARISON: 09/24/2022 The liver, spleen, pancreas, adrenals and kidneys are normal. The gallbladder has been removed. No evidence of bowel inflammation or bowel obstruction. The appendix has been removed. Slight free fluid in the pelvis. The bladder is unremarkable. IMPRESSION: Slight free fluid in the pelvis. Report Dictated on Electronically Signed By: Chucho Peck MD Electronically Signed Date/Time: 05/17/2023 11:08 PM EDT Radiology Study observation (narrative) CT Abdomen and Pelvis W cont rast IVOrdered By: Chucho Peck on 05-17-2023 Work Phone: Hepatic function 2000 panelo n 05-17-2023 Albumin [Mass/Vol] 4.6 g/dL 3.5 - 5.0 g/dL [facility] ALP [Catalytic activity/Vol] 51 U/L 38 - 126 U/L ALT [Catalytic activity/Vol] 17 U/L 0 - 34 U/L AST [Catalytic activity/Vol] 23 U/L 15 - 46 U/L Bilirubin [Mass/Vol] 0.6 mg/dL 0.2 - 1 .3 mg/dL Bilirubin.conjugated [Mass/Vol] 0.0 mg/dL 0.0 - 0.3 mg/dL Interpretation and review of laboratory results Normal Protein [Mass/Vol] 7.8 g/dL 6.3 - 8.2 g/dL [facility] No Panel Informationon 05-17 Urinalysis complete panel (U )on 05-17-2023 Bilirubin Ql (U) Negative Negative mg/dL [facility] Clarity (U) Clear Clear Color (U) Light Yellow Lt. Yellow Glucose Ql (U) Normal Normal (<70) mg/dL Hemoglobin Ql (U) Negative Negative mg/dL [facility] Interpretation and review of laboratory results Normal Ketones (U) [Mass/Vol] Negative Negative mg/dL Leukocyte esterase Test strip Ql (U) Negative Negative Reyes/uL Nitrite Ql (U) Negative Negative pH (U) 6.5 [pH] 5.0 - 8.0 pH Protein (U) [Mass/Vol] Negative Negative mg/dL Specific gravity (U) [Rel density] 1.018 1.005 - 1.030 Urobilinogen (U) [Mass/Vol] Normal Normal (0-1) mg/dL [facility] US Breast - bilateral limite don 04-19-2023 No findings seen to explain the bilateral palpable abnormalities or bilateral bloody nipple discharge. Clinical follow-up is recommended. Surgical consult should be considered for the bloody nipple discharge. ASSESSMENT: Category 2 Benign RECOMMENDATION: Clinical correlation Bilateral Surgical Consultation Bilateral Report Dictated on Electronically Signed By: Marlene Whyte MD Electronically Signed Date/Time: 04/19/2023 2:38 PM EDT [facility] [place] RADIOLOGY SYSTEM Patient Name: SOCORRO ORELLANA : 1995 Exam Date/Time: 04/19/2023 14:43 Procedure: BI US BREAST LIMITED BILATERAL Ordering Provider: KIMBROUGH TANA Reason For Exam: LUMP IN BREAST Prior study Comparisons: Ultrasound from the [facility] dated 01/26/2023 Findings: The patient presents for a bilateral breast ultrasound for further evaluation of palpable abnormalities within both breasts and bilateral bloody nipple discharge. Ultrasound of the right breast was performed at 11:00, 6 cm from the nipple and 9:00, 1 cm from the nipple in the area of palpable abnormalities. Ultrasound was also performed of the left breast at 12-1 o'clock, 10 cm from the nipple in the area of palpable abnormality and 3-4 o'clock 5 cm from the nipple in the area of palpable abnormality. No cystic or solid mass is identified. No findings are seen to explain the palpable abnormalities. Ultrasound of the subareolar locations was performed bilaterally to evaluate the bloody nipple discharge. Only minimal duct ectasia is seen. No intraductal masses identified. [facility] Marlene Whyte MD - 04/19/2023 Patient Name: SOCORRO GONSALES : 1995 Exam Date/Time: 04/19/2023 14:43 Procedure: BI US BREAST LIMITED BILATERAL Ordering Provider: KIMBROUGH TANA Reason For Exam: LUMP IN BREAST Prior study Comparisons: Ultrasound from the [facility] dated 01/26/2023 Findings: The patient presents for a bilateral breast ultrasound for further evaluation of palpable abnormalities within both breasts and bilateral bloody nipple discharge. Ultrasound of the right breast was performed at 11:00, 6 cm from the nipple and 9:00, 1 cm from the nipple in the area of palpable abnormalities. Ultrasound was also performed of the left breast at 12-1 o'clock, 10 cm from the nipple in the area of palpable abnormality and 3-4 o'clock 5 cm from the nipple in the area of palpable abnormality. No cystic or solid mass is identified. No findings are seen to explain the palpable abnormalities. Ultrasound of the subareolar locations was performed bilaterally to evaluate the bloody nipple discharge. Only minimal duct ectasia is seen. No intraductal masses identified. IMPRESSION: No findings seen to explain the bilateral palpable abnormalities or bilateral bloody nipple discharge. Clinical follow-up is recommended. Surgical consult should be considered for the bloody nipple discharge. ASSESSMENT: Category 2 Benign RECOMMENDATION: Clinical correlation Bilateral Surgical Consultation Bilateral Report Dictated on Electronically Signed By: Marlene Whyte MD Electronically Signed Date/Time: 04/19/2023 2:38 PM EDT Radiology Study observation (narrative) US Breast - bilateral limite dOrdered By: Marlene Whyte on 04-19-2023 Work Phone: No Panel Informationon 01-26 [facility] STREP A MOLECULAR (POC)on Procedural Control Valid [facility] Strep A (POCT) Negative Negative [facility] CBC W Auto Differential pane l (Bld)Ordered By: Dorcas Plascencia on 09-24-2022 Basophils (Bld) [#/Vol] 0.1 10*3/uL 0.0 - 0.2 10*3/uL Basophils/100 WBC (Bld) 0.6 % 0.0 - 2.0 % Eosinophils (Bld) [#/Vol] 0.1 10*3/uL 0.0 - 0.5 10*3/uL Eosinophils/100 WBC (Bld) 1.8 % 1.0 - 6.0 % Erythrocyte distribution width (RBC) [Ratio] 13.9 % 11.5 - 14.5 % Hematocrit (Bld) [Volume fraction] 37.5 % 35.0 - 47.0 % Hemoglobin (Bld) [Mass/Vol] 12.5 g/dL 11.7 - 16.0 g/dL Immature granulocytes (Bld) [#/Vol] 0.0 10*3/uL NINF - 0.0 10*3/uL Immature granulocytes/100 WBC (Bld) 0.3 % High NINF - 0.0 % Interpretation and review of laboratory results Abnormal Lymphocytes (Bld) [#/Vol] 1.8 10*3/uL 1.0 - 4.3 10*3/uL Lymphocytes/100 WBC (Bld) 23.2 % 20.0 - 40.0 % MCH (RBC) [Entitic mass] 28.5 pg 26.0 - 34.0 pg MCHC (RBC) [Mass/Vol] 33.3 % 32.0 - 36.0 % MCV (RBC) [Entitic vol] 85.4 fL 80.0 - 98.0 fL Monocytes (Bld) [#/Vol] 0.5 10*3/uL 0.0 - 0.8 10*3/uL Monocytes/100 WBC (Bld) 6.7 % 2.0 - 10.0 % Neutrophils (Bld) [#/Vol] 5.2 10*3/uL 1.8 - 7.0 10*3/uL Neutrophils/100 WBC (Bld) 67.4 % 40.0 - 80.0 % Platelet mean volume (Bld) [Entitic vol] 9.9 fL 7.4 - 12.4 fL Comment on above: MPV is a calculated measurement using platelet volume ratio Platelets (Bld) [#/Vol] 309 10*3/uL 140 - 440 10*3/uL RBC (Bld) [#/Vol] 4.39 10*6/uL 3.8 - 5.20 10*6/uL WBC (Bld) [#/Vol] 7.8 10*3/uL 3.6 - 10.7 10*3/uL [facility] CT Abdomen and Pelvis W cont benedict Neri 09-24-2022 1. No evidence of ma ss, lymphadenopathy or inflammatory process. 2. Right iliopsoas bursa, unchanged. Report Dictated on Electronically Signed By: Jose Luis Chávez Electronically Signed Date/Time: 09/24/2022 9:22 PM [facility] RADIOLOGY [facility] Patient Name: SOCORRO ORELLANA : 1995 Exam Date/Time: 09/24/2022 21:08 Procedure: CT ABDOMEN PELVIS W CONTRAST Ordering Provider: NORIEGA KATHRYN Reason For Exam: diffuse abdom pain (lower > upper), n/v, diarrhea. 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 Nausea and vomiting. Diarrhea. Prior cholecystectomy, appendectomy and hysterectomy. CT ABDOMEN AND PELVIS WITH INTRAVENOUS CONTRAST: Contrast: Isovue-370, [address] ABDOMEN: Volume acquisition CT images are obtained from diaphragm to iliac crests following intravenous contrast only with axial, coronal and sagittal 2-D reconstructions. Oral contrast was withheld by request of the ordering physician. The absence of oral contrast reduces the sensitivity of the examination. Dose reduction was employed with automated exposure control. Comparison is made to the examination of 05/05/2022. Images through the lower chest demonstrate no abnormal pleural or parenchymal densities. The liver, spleen, pancreas and kidneys are unremarkable in size, configuration and density. There is no hydronephrosis. The gallbladder is surgically absent. There is no adrenal gland mass or enlargement. There is no visible abnormality of the unopacified stomach, small or large bowel. The appendix is not identified as per surgical history. No ascites or retroperitoneal lymphadenopathy is seen. No focal mass, fluid collection or inflammatory changes are identified. There is no abnormality of the abdominal aorta. CT PELVIS: Volume acquisition CT images were obtained from the iliac crests to the symphysis pubis following intravenous contrast only with axial, coronal and sagittal 2-D reconstructions. Dose reduction was employed with automated exposure control. Comparison is made to the same prior examination. Urinary bladder is unopacified and predominantly contracted limiting evaluation. No calcified calculus or wall thickening is seen. The uterus is surgically absent. There is a 2.2 x 1.8 x 3.7 cm (AP, transverse, CC) homogeneous fluid density structure related to the posterior aspect of the right iliopsoas muscle at the level of the hip most likely an iliopsoas bursa, unchanged. No other focal mass or fluid collection is seen. There is no iliac or inguinal lymphadenopathy. No ascites or inflammatory changes are identified. [facility]OLOGY [facility] Jose Luis Chávez MD - 09/24/2022 Patient Name: SOCORRO GONSALES : 1995 Exam Date/Time: 09/24/2022 21:08 Procedure: CT ABDOMEN PELVIS W CONTRAST Ordering Provider: NORIEGA KATHRYN Reason For Exam: diffuse abdom pain (lower > upper), n/v, diarrhea. 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 Nausea and vomiting. Diarrhea. Prior cholecystectomy, appendectomy and hysterectomy. CT ABDOMEN AND PELVIS WITH INTRAVENOUS CONTRAST: Contrast: Isovue-370, [address] ABDOMEN: Volume acquisition CT images are obtained from diaphragm to iliac crests following intravenous contrast only with axial, coronal and sagittal 2-D reconstructions. Oral contrast was withheld by request of the ordering physician. The absence of oral contrast reduces the sensitivity of the examination. Dose reduction was employed with automated exposure control. Comparison is made to the examination of 05/05/2022. Images through the lower chest demonstrate no abnormal pleural or parenchymal densities. The liver, spleen, pancreas and kidneys are unremarkable in size, configuration and density. There is no hydronephrosis. The gallbladder is surgically absent. There is no adrenal gland mass or enlargement. There is no visible abnormality of the unopacified stomach, small or large bowel. The appendix is not identified as per surgical history. No ascites or retroperitoneal lymphadenopathy is seen. No focal mass, fluid collection or inflammatory changes are identified. There is no abnormality of the abdominal aorta. CT PELVIS: Volume acquisition CT images were obtained from the iliac crests to the symphysis pubis following intravenous contrast only with axial, coronal and sagittal 2-D reconstructions. Dose reduction was employed with automated exposure control. Comparison is made to the same prior examination. Urinary bladder is unopacified and predominantly contracted limiting evaluation. No calcified calculus or wall thickening is seen. The uterus is surgically absent. There is a 2.2 x 1.8 x 3.7 cm (AP, transverse, CC) homogeneous fluid density structure related to the posterior aspect of the right iliopsoas muscle at the level of the hip most likely an iliopsoas bursa, unchanged. No other focal mass or fluid collection is seen. There is no iliac or inguinal lymphadenopathy. No ascites or inflammatory changes are identified. IMPRESSION: 1. No evidence of mass, lymphadenopathy or inflammatory process. 2. Right iliopsoas bursa, unchanged. Report Dictated on Electronically Signed By: Jose Luis Chávez Electronically Signed Date/Time: 09/24/2022 9:22 PM EST Radiology Study observation (narrative) CT Abdomen and Pelvis W cont rast IVOrdered By: Jose Luis Chávez on 09-24-2022 Work Phone: Comprehensive metabolic 1998 panelon 09-24-2022 Albumin [Mass/Vol] 4.7 g/dL 3.5 - 5.0 g/dL [facility] ALP [Catalytic activity/Vol] 50 U/L 38 - 126 U/L ALT [Catalytic activity/Vol] 15 U/L 0 - 34 U/L Anion gap [Moles/Vol] 7 mmol/L 3 - 13 mmol/L AST [Catalytic activity/Vol] 26 U/L 15 - 46 U/L Bilirubin [Mass/Vol] 0.5 mg/dL 0.2 - 1 .3 mg/dL Calcium [Mass/Vol] 8.9 mg/dL 8.4 - 10. 4 mg/dL Chloride [Moles/Vol] 113 mmol/L High 98 - 10 7 mmol/L CO2 [Moles/Vol] 22 mmol/L 22 - 30 mmol/L Creatinine [Mass/Vol] 0.80 mg/dL 0.52 - 1.04 mg/dL GFR/1.73 sq M.predicted MDRD (S/P/Bld) [Vol rate/Area] - PINF Comment on above: Calculation based on the Chronic Kidney Disease Epidemiology Collaboration (CKD-EPI) equation refit without adjustment for race Glucose [Mass/Vol] 102 mg/dL High 70 - 100 mg/dL [facility] Interpretation and review of laboratory results Abnormal Potassium [Moles/Vol] 3.8 mmol/L 3.5 - 5.1 mmol/L Protein [Mass/Vol] 8.0 g/dL 6.3 - 8.2 g/dL [facility] Sodium [Moles/Vol] 141 mmol/L 135 - 145 mmol/L Urea nitrogen [Mass/Vol] 15 mg/dL 7 - 17 mg/dL Laboratory - Chemistry and C hemistry - challengeon 09-24-2022 Lactate [Moles/Vol] 1.0 mmol/L 0.7 - 2. 0 mmol/L Lipase [Catalytic activity/Vol] 223 U/L 23 - 300 U/L Lipase [Catalytic activity/V ol]on 09-24-2022 Interpretation and review of laboratory results Normal No Panel Informationon 09-24 Interpretation and review of laboratory results Normal [facility] Urinalysis complete panel (U )on 09-24-2022 Amorphous Crystals, Urine Many Abnormal Negative /HPF Bacteria LM.HPF (Urine sed) [#/Area] Few Abnormal Negative /HPF Bilirubin Ql (U) Negative Negative mg/dL [facility] Clarity (U) Clear Clear Color (U) Yellow Lt. Yellow Epithelial cells.squamous LM.HPF (Urine sed) [#/Area] 3-5 Glucose Ql (U) Normal Normal (<70) mg/dL Hemoglobin Ql (U) Negative Negative mg/dL [facility] Interpretation and review of laboratory results Abnormal Ketones (U) [Mass/Vol] Negative Negative mg/dL Leukocyte esterase Test strip Ql (U) Negative Negative Reyes/uL Nitrite Ql (U) Negative Negative pH (U) 7.0 [pH] 5.0 - 8.0 pH Protein (U) [Mass/Vol] 10 mg/dL Abnormal Negative RBC LM.HPF (Urine sed) [#/Area] 0-2 Specific gravity (U) [Rel density] 1.037 High 1.005 - 1.030 Urobilinogen (U) [Mass/Vol] 2 mg/dL Abnormal Normal (0-1) Volume, Urine 12 mL WBC LM.HPF (Urine sed) [#/Area] 0-2 [facility] STREP A MOLECULAR (POC)on Procedural Control Valid [facility] Strep A (POCT) Negative Negative [facility] CULTURE BLOODon 05-11-2022 Microscopic examination of blood, culture CULTURE BLOOD --> Status: F No growth at 5 days. Normal [facility] Comment on above: Performed By: #### C /BLD #### [facility] [address] [place] [address] CULTURE BLOOD (Two)on 2021 Microscopic examination of blood, culture CULTURE BLOOD (Two) --> Status: F No growth at 5 days. Normal [facility] Comment on above: Performed By: #### C /BLT #### [facility] [address] [place] [address] CBC auto differentialon 04-10 Absolute Baso # 0.1 10*3/uL 0 - 0.2 10*3/uL [facility] Absolute Neut # 7.1 10*3/uL High 1.8 - 7 10*3/uL [facility] Basophils/100 WBC (Bld) 1.2 % 0 - 2 % [facility] Eosinophils (Bld) [#/Vol] 0.0 10*3/uL 0 - 0.5 10*3/uL [facility] Eosinophils/100 WBC (Bld) 0.2 % Low 1 - 6 % [facility] Granulocytes/100 WBC (Bld) 69.5 % 40 - 80 % [facility] Hematocrit (Bld) [Volume fraction] 33.3 % Low 35 - 47 % [facility] Hemoglobin (Bld) [Mass/Vol] 10.7 g/dL Low 11.7 - 16 g/dL [facility] Interpretation and review of laboratory results Abnormal [facility] Lymphocytes (Bld) [#/Vol] 2.3 10*3/uL 1 - 4.3 10*3/uL [facility] Lymphocytes/100 WBC (Bld) 23.1 % 20 - 40 % [facility] MCH (RBC) [Entitic mass] 27.6 pg 26 - 34 pg [facility] MCHC (RBC) [Mass/Vol] 32.0 % 32 - 36 % [facility] MCV (RBC) [Entitic vol] 86.3 fL 79 - 98 fL [facility] Monocytes (Bld) [#/Vol] 0.6 10*3/uL 0 - 0.8 10*3/uL [facility] Monocytes/100 WBC (Bld) 6.0 % 2 - 10 % [facility] Platelet distribution width (Bld) [Ratio] 15.6 % High 11.5 - 14.5 % [facility] Platelet mean volume (Bld) [Entitic vol] 7.8 fL 7.4 - 12.4 fL [facility] Comment on above: MPV is a calculated measurement using platelet volume ratio. Platelets (Bld) [#/Vol] 301 10*3/uL 140 - 440 10*3/uL [facility] RBC (Bld) [#/Vol] 3.86 10*6/uL 3.8 - 5.2 10*6/uL [facility] WBC (Bld) [#/Vol] 10.2 10*3/uL 3.6 - 10.7 10*3/uL [facility] Test Performed by [facility], [address] [place] [address] LAB [facility] CR Chest Portableon 05-05-20 CR Chest Portable Patient Name: SOCORRO ORELLANA Diagnostic Radiology ACCESSION EXAM DATE/TIME PROCEDURE ORDERING PROVIDER [id number] 05/05/2022 15:06 EDT CR Chest Portable MD MAGALI, PAM Banks CPT code 55308 Reason For Exam (CR Chest Portable) sepsis Report AP CHEST X-RAY CLINICAL INDICATION: sepsis TECHNIQUE: AP portable x-ray of the chest. COMPARISON: 12/03/2020 FINDINGS: Lines/Tubes: None Heart/Mediastinum: Within normal limits Lungs: No consolidation or pleural effusion. Bones: Unremarkable IMPRESSION: No evidence of an acute cardiopulmonary abnormality. Report Dictated on Final Dictated: 05/05/2022 2:58 pm Dictating Physician: MD MARSH THOMAS Signed Date and Time: 05/05/2022 2:59 pm Signed by: MD MARSH THOMAS Transcribed Date and Time: 05/05/2022 2:58 Normal [facility] CT Abdomen and Pelvis W cont rast Daron 05-05-2022 Patient Name: SOCORRO ORELLANA Computed Tomography ACCESSION EXAM DATE/TIME PROCEDURE ORDERING PROVIDER [id number] 05/05/2022 15:[address] Abdomen/Pelvis w/ IV MD MAGALI, PAM Banks Contrast (IV Onl CPT code 75571 Q9967 Reason For Exam (CT Abdomen/Pelvis w/ IV Contrast (IV Onl) hysterectomy, pain, low grade temp Report EXAMINATION: CT Abdomen/Pelvis w/ Contrast CLINICAL HISTORY: hysterectomy, pain, low grade temp COMPARISON: 02/17/2021 TECHNIQUE: Contiguous axial images were obtained through the abdomen and pelvis from the level of the diaphragmatic domes through the level of bilateral proximal femurs following bolus administration of intravenous contrast. MPR sagittal and coronal reconstructions were obtained from the axial data. Before infusion of intravenous contrast, radiology personnel investigated the possibility of an allergic history and of any history of reaction to iodinated contrast material. FINDINGS: Per electronic medical record review: The patient has a history of hysterectomy and removal of adhesions yesterday. Included images of the lower thorax: There is mild subsegmental bibasilar atelectasis. No focal consolidation. No pleural effusion. Hepatobiliary: The liver is unremarkable. The patient is status post cholecystectomy. Intra and extrahepatic biliary prominence is present which likely relates to prior cholecystectomy. Pancreas: Unremarkable Spleen: Unremarkable Adrenal Glands: Unremarkable Kidneys and ureters: No calculi or hydroureteronephrosis. Abdominal vasculature: Unremarkable GI tract: A few mildly dilated loops of bowel containing air-fluid levels are present in the left upper quadrant abdomen measuring up to 2.5 cm in greatest axial dimension. No discrete transition point is identified. There is a moderate amount of stool throughout the colon. Stool and intraluminal air is seen extending distally to the rectum. Status post appendectomy. Peritoneum and retroperitoneum: There are scattered small locules of free air anterior to the liver and posterior to the rectus abdominis Computed Tomography Report musculature, expected in the recent postsurgical setting. There is a small amount of free fluid in the pelvis. No focal rim-enhancing fluid collection to suggest an abscess. Lymph Nodes: No abdominal lymphadenopathy is evident. Pelvis: Status post hysterectomy. Visualized musculoskeletal structures: No acute fracture or destructive osseous lesion is identified. There is expected subcutaneous fat stranding along the periumbilical and lower abdominal wall regions, likely related to laparoscopic port placement. IMPRESSION: 1. Expected scattered pneumoperitoneum in the recent postsurgical setting status post hysterectomy. There is a small amount of free fluid in the pelvis. No focal rim-enhancing fluid collection to suggest an abscess. 2. A few mildly dilated loops of bowel containing air-fluid levels are present in the left upper quadrant abdomen measuring up to 2.5 cm in greatest axial dimension which may relate to ileus. No discrete transition point is identified. 3. Mild subsegmental bibasilar atelectasis. Report Dictated on --- Final --- Dictated: 05/05/2022 3:59 pm Dictating Physician: MD GUPTA RYAN Signed Date and Time: 05/05/2022 4:18 pm Signed by: MD GUPTA RYAN Transcribed Date and Time: 05/05/2022 3:59 [facility] Aiden Gupta MD - 05/05/2022 [id number] Tom[facility] ACCESSION EXAM DATE/TIME PROCEDURE ORDERING PROVIDER [id number] 05/05/2022 15:[address] Abdomen/Pelvis w/ IV MD MAGALI, PAM Banks Contrast (IV Onl CPT code 56172 Q9967 Reason For Exam (CT Abdomen/Pelvis w/ IV Contrast (IV Onl) hysterectomy, pain, low grade temp Report EXAMINATION: CT Abdomen/Pelvis w/ Contrast CLINICAL HISTORY: hysterectomy, pain, low grade temp COMPARISON: 02/17/2021 TECHNIQUE: Contiguous axial images were obtained through the abdomen and pelvis from the level of the diaphragmatic domes through the level of bilateral proximal femurs following bolus administration of intravenous contrast. MPR sagittal and coronal reconstructions were obtained from the axial data. Before infusion of intravenous contrast, radiology personnel investigated the possibility of an allergic history and of any history of reaction to iodinated contrast material. FINDINGS: Per electronic medical record review: The patient has a history of hysterectomy and removal of adhesions yesterday. Included images of the lower thorax: There is mild subsegmental bibasilar atelectasis. No focal consolidation. No pleural effusion. Hepatobiliary: The liver is unremarkable. The patient is status post cholecystectomy. Intra and extrahepatic biliary prominence is present which likely relates to prior cholecystectomy. Pancreas: Unremarkable Spleen: Unremarkable Adrenal Glands: Unremarkable Kidneys and ureters: No calculi or hydroureteronephrosis. Abdominal vasculature: Unremarkable GI tract: A few mildly dilated loops of bowel containing air-fluid levels are present in the left upper quadrant abdomen measuring up to 2.5 cm in greatest axial dimension. No discrete transition point is identified. There is a moderate amount of stool throughout the colon. Stool and intraluminal air is seen extending distally to the rectum. Status post appendectomy. Peritoneum and retroperitoneum: There are scattered small locules of free air anterior to the liver and posterior to the rectus abdominis Computed Tomography Report musculature, expected in the recent postsurgical setting. There is a small amount of free fluid in the pelvis. No focal rim-enhancing fluid collection to suggest an abscess. Lymph Nodes: No abdominal lymphadenopathy is evident. Pelvis: Status post hysterectomy. Visualized musculoskeletal structures: No acute fracture or destructive osseous lesion is identified. There is expected subcutaneous fat stranding along the periumbilical and lower abdominal wall regions, likely related to laparoscopic port placement. IMPRESSION: 1. Expected scattered pneumoperitoneum in the recent postsurgical setting status post hysterectomy. There is a small amount of free fluid in the pelvis. No focal rim-enhancing fluid collection to suggest an abscess. 2. A few mildly dilated loops of bowel containing air-fluid levels are present in the left upper quadrant abdomen measuring up to 2.5 cm in greatest axial dimension which may relate to ileus. No discrete transition point is identified. 3. Mild subsegmental bibasilar atelectasis. Report Dictated on --- Final --- Dictated: 05/05/2022 3:59 pm Dictating Physician: MD UGPTA RYAN Signed Date and Time: 05/05/2022 4:18 pm Signed by: MD GUPTA RYAN Transcribed Date and Time: 05/05/2022 3:59 [facility] Work Phone: CT Abdomen and Pelvis W cont rast IVOrdered By: Aiden Gupta on 05-05-2022 [facility] Work Phone: CT Abdomen/Pelvis w/ Contras ton 05-05-2022 CT Abdomen/Pelvis w/ Contrast Patient Name: SOCORRO GONSALES Computed Tomography ACCESSION EXAM DATE/TIME PROCEDURE ORDERING PROVIDER [id number] 05/05/2022 15:[address] Abdomen/Pelvis w/ IV MD MAGALI, PAM Banks Contrast (IV Onl CPT code 31241 Q9967 Reason For Exam (CT Abdomen/Pelvis w/ IV Contrast (IV Onl) hysterectomy, pain, low grade temp Report EXAMINATION: CT Abdomen/Pelvis w/ Contrast CLINICAL HISTORY: hysterectomy, pain, low grade temp COMPARISON: 02/17/2021 TECHNIQUE: Contiguous axial images were obtained through the abdomen and pelvis from the level of the diaphragmatic domes through the level of bilateral proximal femurs following bolus administration of intravenous contrast. MPR sagittal and coronal reconstructions were obtained from the axial data. Before infusion of intravenous contrast, radiology personnel investigated the possibility of an allergic history and of any history of reaction to iodinated contrast material. FINDINGS: Per electronic medical record review: The patient has a history of hysterectomy and removal of adhesions yesterday. Included images of the lower thorax: There is mild subsegmental bibasilar atelectasis. No focal consolidation. No pleural effusion. Hepatobiliary: The liver is unremarkable. The patient is status post cholecystectomy. Intra and extrahepatic biliary prominence is present which likely relates to prior cholecystectomy. Pancreas: Unremarkable Spleen: Unremarkable Adrenal Glands: Unremarkable Kidneys and ureters: No calculi or hydroureteronephrosis. Abdominal vasculature: Unremarkable GI tract: A few mildly dilated loops of bowel containing air-fluid levels are present in the left upper quadrant abdomen measuring up to 2.5 cm in greatest axial dimension. No discrete transition point is identified. There is a moderate amount of stool throughout the colon. Stool and intraluminal air is seen extending distally to the rectum. Status post appendectomy. Peritoneum and retroperitoneum: There are scattered small locules of free air anterior to the liver and posterior to the rectus abdominis Computed Tomography Report musculature, expected in the recent postsurgical setting. There is a small amount of free fluid in the pelvis. No focal rim-enhancing fluid collection to suggest an abscess. Lymph Nodes: No abdominal lymphadenopathy is evident. Pelvis: Status post hysterectomy. Visualized musculoskeletal structures: No acute fracture or destructive osseous lesion is identified. There is expected subcutaneous fat stranding along the periumbilical and lower abdominal wall regions, likely related to laparoscopic port placement. IMPRESSION: 1. Expected scattered pneumoperitoneum in the recent postsurgical setting status post hysterectomy. There is a small amount of free fluid in the pelvis. No focal rim-enhancing fluid collection to suggest an abscess. 2. A few mildly dilated loops of bowel containing air-fluid levels are present in the left upper quadrant abdomen measuring up to 2.5 cm in greatest axial dimension which may relate to ileus. No discrete transition point is identified. 3. Mild subsegmental bibasilar atelectasis. Report Dictated on Final Dictated: 05/05/2022 3:59 pm Dictating Physician: MD GUPTA RYAN Signed Date and Time: 05/05/2022 4:18 pm Signed by: MD GUPTA RYAN Transcribed Date and Time: 05/05/2022 3:59 Normal [facility] Comp Panel with Mg Reflexon 05-05-2022 ALT [Catalytic activity/Vol] 13 U/L Normal 0-34 [facility] Comment on above: Result Comment: The ALT test is performed by an updated assay method. Please note that the reference intervals have been changed and are now sex specific. Performed By: #### H EMDF, CMP3M, LACTS, LIPA4 #### [facility] [address] [place] [address] Calcium [Mass/Vol] 8.9 mg/dL Normal 8.4-10.4 [facility] Comment on above: Performed By: #### H EMDF, CMP3M, LACTS, LIPA4 #### [facility] [address] [place] [address] ALP [Catalytic activity/Vol] 45 U/L Normal 38-126 [facility] Comment on above: Performed By: #### H EMDF, CMP3M, LACTS, LIPA4 #### [facility] [address] [place], [place] Anion gap [Moles/Vol] 7 mmol/L Normal 3-13 [facility] Comment on above: Performed By: #### H EMDF, CMP3M, LACTS, LIPA4 #### [place] [address] [place], [place] AST [Catalytic activity/Vol] 32 U/L Normal 15-46 [facility] Comment on above: Performed By: #### H EMDF, CMP3M, LACTS, LIPA4 #### [place] [address] [place], [place] Bilirubin [Mass/Vol] 0.3 mg/dL Normal 0.2-1.3 [facility] Comment on above: Performed By: #### H EMDF, CMP3M, LACTS, LIPA4 #### [place] [address] [place], [place] CO2 [Moles/Vol] 23 mmol/L Normal 22-30 [facility] Comment on above: Performed By: #### H EMDF, CMP3M, LACTS, LIPA4 #### [place] [address] [place], [place] Creatinine [Mass/Vol] 0.86 mg/dL Normal 0.52-1.25 [facility] Comment on above: Performed By: #### H EMDF, CMP3M, LACTS, LIPA4 #### [place] [address] [place], [place] eGFR OTHER > 90.0 Normal >60 [facility] Comment on above: Result Comment: KDIG O guidelines provide the following GFR categories: Stage GFR(ml/min/1.73 m2) Terms G1 >=90 Normal or high G2 60-89 Mildly decreased* G3a 45-59 Mildly to moderately decreased G3b 30-44 Moderately to severely decreased G4 15-29 Severely decreased G5 <15 Kidney failure *Relative to young adult level. In the absence of evidence of kidney damage, neither GFR category G1 nor G2 fulfill the criteria for CKD. The CKD-EPI equation is validated in individuals 18 years of age and older. Currently the best equation for estimating glomerular filtration rate (GFR) from serum creatinine in children is the Bedside Gupta equation. It is less accurate in patients with extremes of muscle mass, restriction of dietary protein, ingestion of creatine, extra-renal metabolism of creatinine, or treatment with medications that affect renal tubular creatinine secretion. Performed By: #### H EMDF, CMP3M, LACTS, LIPA4 #### [facility] [address] [place] [address] GFR/1.73 sq M.predicted among blacks MDRD (S/P/Bld) [Vol rate/Area] mL/min/{1.73_m2} Normal >60 [facility] Comment on above: Performed By: #### H EMDF, CMP3M, LACTS, LIPA4 #### [place] [address] [place] [address] Glucose [Mass/Vol] 97 mg/dL Normal 70-100 [facility] Comment on above: Performed By: #### H EMDF, CMP3M, LACTS, LIPA4 #### [place] [address] [place], [place] Protein [Mass/Vol] 7.7 g/dL Normal 6.3-8.2 [facility] Comment on above: Performed By: #### H EMDF, CMP3M, LACTS, LIPA4 #### [place] [address] [place] [address] Urea nitrogen [Mass/Vol] 7 mg/dL Low 9-20 [facility] Comment on above: Performed By: #### H EMDF, CMP3M, LACTS, LIPA4 #### [place] [address] [place], [place] Potassium [Moles/Vol] 3.9 mmol/L Normal 3.5-5.1 [facility] Comment on above: Performed By: #### H EMDF, CMP3M, LACTS, LIPA4 #### [facility] [address] [place] [address] Sodium [Moles/Vol] 140 mmol/L Normal 135-145 [facility] Comment on above: Performed By: #### H EMDF, CMP3M, LACTS, LIPA4 #### [facility] [address] [place], [place] Albumin [Mass/Vol] 4.4 g/dL Normal 3.5-5.0 [facility] Comment on above: Performed By: #### H EMDF, CMP3M, LACTS, LIPA4 #### [place] [address] [place], [place] Chloride [Moles/Vol] 110 mmol/L High 98-107 [facility] Comment on above: Performed By: #### H EMDF, CMP3M, LACTS, LIPA4 #### [place] [address] [place], [place] Complete Urinalysison 2021 Appearance (U) Clear Normal Clear [facility] Comment on above: Result Comment: . Performed By: #### C UA2 #### [place] [address] [place], [place] Bilirubin,Urine Negative Normal Negative [facility] Comment on above: Result Comment: . Performed By: #### C UA2 #### [place] [address] [place], [place] Color (U) Colorless Normal Lt. Yellow [facility] Comment on above: Result Comment: . Performed By: #### C UA2 #### [place] [address] [place], [place] Glucose Ql (U) Normal Normal Normal (<70) [facility] Comment on above: Result Comment: . Performed By: #### C UA2 #### [place] [address] [place], [place] Ketone,Urine Negative Normal Negative [facility] Comment on above: Result Comment: . Performed By: #### C UA2 #### [place] [address] [place], [place] Leukocytes,Urine Negative Normal Negative [facility] Comment on above: Result Comment: . Performed By: #### C UA2 #### [place] [address] [place], [place] Nitrites,Urine Negative Normal Negative [facility] Comment on above: Result Comment: . Performed By: #### C UA2 #### [facility] [address] [place], [place] Occult Blood,Urine Negative Normal Negative [facility] Comment on above: Result Comment: . Performed By: #### C UA2 #### [facility] [address] [place], [place] pH,Urine 6.0 Normal 5.0-8.0 [facility] Comment on above: Result Comment: . Performed By: #### C UA2 #### [facility] [address] [place], [place] Specific [place],Urine 1.010 Normal 1.005 - 1.030 [facility] Comment on above: Result Comment: . Performed By: #### C UA2 #### [facility] [address] [place], [place] Total Protein,Urine Negative Normal Negative [facility] Comment on above: Result Comment: . Performed By: #### C UA2 #### [facility] [address] [place], [place] Urobilinogen,Urine Normal Normal Normal (0-1) [facility] Comment on above: Result Comment: . Performed By: #### C UA2 #### [facility] [address] [place], [place] Comprehensive Metabolic Pane l w/ Reflex to MGon 05-05-2022 Albumin [Mass/Vol] 4.4 g/dL 3.5 - 5 g/dL [facility] ALP (Bld) [Catalytic activity/Vol] 45 U/L 38 - 126 U/L [facility] ALT [Catalytic activity/Vol] 13 U/L 0 - 34 U/L [facility] Comment on above: The ALT test is perf ormed by an updated assay method. Please note that the reference intervals have been changed and are now sex specific. Anion gap [Moles/Vol] 7 mmol/L 3 - 13 mmol/L [facility] AST [Catalytic activity/Vol] 32 U/L 15 - 46 U/L [facility] Bilirubin [Mass/Vol] 0.3 mg/dL 0.2 - 1 .3 mg/dL [facility] Calcium [Mass/Vol] 8.9 mg/dL 8.4 - 10. 4 mg/dL [facility] Chloride [Moles/Vol] 110 mmol/L High 98 - 10 7 mmol/L [facility] CO2 [Moles/Vol] 23 mmol/L 22 - 30 mmol/L [facility] Creatinine [Mass/Vol] 0.86 mg/dL 0.52 - 1.25 mg/dL [facility] eGFR mL/min 60 - P INF mL/min [facility] EGFR IF NonAfrican Japanese mL/min 60 - PINF mL/min [facility] Comment on above: KDIGO guidelines pro vide the following GFR categories: Stage GFR(ml/min/1.73 m2) Terms G1 >=90 Normal or high G2 60-89 Mildly decreased* G3a 45-59 Mildly to moderately decreased G3b 30-44 Moderately to severely decreased G4 15-29 Severely decreased G5 <15 Kidney failure *Relative to young adult level. In the absence of evidence of kidney damage, neither GFR category G1 nor G2 fulfill the criteria for CKD. The CKD-EPI equation is validated in individuals 18 years of age and older. Currently the best equation for estimating glomerular filtration rate (GFR) from serum creatinine in children is the Bedside Gupta equation. It is less accurate in patients with extremes of muscle mass, restriction of dietary protein, ingestion of creatine, extra-renal metabolism of creatinine, or treatment with medications that affect renal tubular creatinine secretion. Glucose [Mass/Vol] 97 mg/dL 70 - 100 mg/dL [facility] Interpretation and review of laboratory results Abnormal [facility] Potassium [Moles/Vol] 3.9 mmol/L 3.5 - 5.1 mmol/L [facility] Protein [Mass/Vol] 7.7 g/dL 6.3 - 8.2 g/dL [facility] Sodium [Moles/Vol] 140 mmol/L 135 - 145 mmol/L [facility] Urea nitrogen (BldV) [Mass/Vol] 7 mg/dL Low 9 - 20 mg/dL [facility] ED [facility] Gons[facility] : 1995 Date of Evaluation: 05/05/2022 ED [facility] Provider: Janet Gee PA-C EDcare was supervised by Dr. Briggs who independently examined and evaluated the patient. Please see their attestation note for further details. Chief Complaint Chief Complaint Patient presents with Abdominal Pain Pt had hysterectomy and adhesion removal yesterday and was unable to obtain any home going medications for pain upon leaving hospital. Pt got pain medications this morning but was unable to get pain back under control and one incision is leaking fluid. [place]KO[place] I was wearing appropriate PPE, including a mask for the entirety of this encounter. Socorro Gonsales is a 26 y.o. female with past medical history of chronic abdominal pain, uterine bleeding and hysterectomy with adhesion removal yesterday who presents to the emergency department with abdominal pain. Patient states that she had a hysterectomy and removal of adhesions yesterday. She is having uncontrolled lower abdominal pain with nausea and also feels lightheaded. She states that the pain medication that they gave her is not helping. She states that there was a problem with getting her discharged yesterday and by the time she was actually discharged the pharmacy was closed. Therefore, she did not have pain medication only. She states that at 9 AM this morning she was able to take a dose of oxycodone however she continues to experience discomfort. She denies fevers, chills, dysuria, hematuria, urinary frequency or urgency. ROS: At least 10 systems reviewed and otherwise acutely negative except as in the CHILKOOT. Past History Past Medical History: Diagnosis Date Allergic rhinitis Anxiety Asthma Chronic abdominal pain GERD (gastroesophageal reflux disease) Hydronephrosis of right kidney 07/17/2019 IUD (intrauterine device) in place 02/2020 IUD removed 02/2020 Pancreatic divisum Post-operative nausea and vomiting Syncope and collapse Tobacco abuse Ulcerative colitis (HCC) Uterine bleeding Past Surgical History: Procedure Laterality Date ABDOMINAL EXPLORATION SURGERY 05/2019 duodenal cyst removal APPENDECTOMY 03/26/2021 CHOLECYSTECTOMY, LAPAROSCOPIC 05/2019 COLONOSCOPY 05/2020 [place] CYSTOSCOPY 12/28/2020 DILATATION, ESOPHAGUS HYSTEROSCOPY 02/23/2020 Diagnostic laparoscopy, Hysteroscopy, D&C, Mirena IUD insertion INTRAUTERINE DEVICE INSERTION LAPAROSCOPY 03/26/2021 lysis of adhesions ROBOTIC ASSISTED HYSTERECTOMY N/A 05/04/2022 dr crump SALPINGECTOMY Bilateral 04/28/2018 pt states, tubes were tied not removed SALPINGECTOMY Bilateral 05/04/2022 dr crump- removed UPPER GASTROINTESTINAL ENDOSCOPY 12/06/2020 Dr Jansen at [facility] WISDOM TOOTH EXTRACTION Social History Socioeconomic History Marital status: Single Spouse name: None Number of children: 2 Years of education: None Highest education level: None Tobacco Use Smoking status: Former Years: 3.00 Types: Cigarettes Start date: 05/04/2017 Quit date: 03/24/2022 Years since quittin.1 Smokeless tobacco: Never Tobacco comments: On and off Vaping Use Vaping Use: Every day Substances: Nicotine, Flavoring Devices: Pre-filled pod (Juul) Passive vaping exposure: Yes Substance and Sexual Activity Alcohol use: Yes Comment: one or two drinks a month Drug use: No Comment: tea every day Sexual activity: Yes Partners: Male Social History Narrative Single, BF Mukesh tenorio. First son born 04/24. SMOKER, no excessive ETOH. 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 Intended supply: 3 days. Take lowest dose possible to manage pain Qty: 15 tablet, Refills: 0 Comments: Reduce doses taken as pain becomes manageable Associated Diagnoses: S/P hysterectomy ibuprofen (ADVIL;MOTRIN) 600 MG tablet Take 1 tablet by mouth every 6 hours as needed for Pain Qty: 60 tablet, Refills: 0 docusate sodium (COLACE) 100 MG capsule Take 1 capsule by mouth 2 times daily as needed for Constipation Qty: 60 capsule, Refills: 0 diphenhydrAMINE (BENADRYL) 25 MG tablet Take 25 mg by mouth every 6 hours as needed for Itching BUDESONIDE PO Take by mouth daily dicyclomine (BENTYL) 10 MG capsule Take 1 capsule by mouth 4 times daily for 10 days Qty: 40 capsule, Refills: 1 omeprazole (PRILOSEC) 40 MG delayed release capsule Take 1 capsule by mouth every morning (before breakfast) for 14 days Qty: 14 capsule, Refills: 0 Associated Diagnoses: Generalized abdominal pain (more content not included)... Normal [facility] ED Provider Note Emergency Department Encounter [facility] EMERGENCY DEPT Patient: Socorro Gonsales : 1995 Date of Evaluation: 05/05/2022 ED Provider: PAM BRIGGS MD I the patient as the clinician in triage and performed a brief history and physical exam, established acuity, and ordered appropriate test to develop basic plan of care. Patient will be seen by the MYA, resident, and/or my physician partner who will also evaluate the patient. If the patient is seen by the MYA or resident I will sign up as the supervising attending in the chart and manage the patient in a supervisory role. I will be available for comanagement and this will serve as my MYA or resident supervisory note and shared attestation. I did perform a substantial portion of the visit including aspects of the medical decision making. HISTORY OF PRESENT ILLNESS In brief, Socorro Gonsales is a 26 y.o. female that presents for evaluation of abdominal pain. Patient had a hysterectomy and removal of adhesions yesterday. Patient is having a lot of uncontrolled lower abdominal pain with nausea and feeling lightheaded. Pain medication is not helping. PHYSICAL EXAM ED Triage Vitals Enc Vitals Group BP 05/05/22 1259 100/74 Heart Rate 05/05/22 1259 (!) 104 Resp 05/05/22 1259 22 Temp 05/05/22 1259 100.2 ?F (37.9 ?C) Temp Source 05/05/22 1259 Temporal SpO2 05/05/22 1259 96 % Weight 05/05/22 1304 145 lb (65.8 kg) Height 05/05/22 1304 5' 5 (1.651 m) Head Circumference -- Peak Flow -- Pain Score -- Pain Loc -- Pain Edu? -- Excl. in GC? -- On brief exam General appearance: Well-appearing, no acute distress. Psych: Awake alert. Pleasant and cooperative. Tearful Skin: Warm and dry. Abdominal surgical incisions appear clean dry and intact Neck: Supple. Cardiovascular: Mild tachycardia with regular rhythm Lungs: Respirations unlabored Abdomen: Soft, diffuse tenderness of the abdomen worse across lower abdomen, and nondistended, no rebound, rigidity, or guarding MDM: Patient will be evaluated with blood work as well as CT imaging and consult TRAFFIC CONTROL OPERATOR. I Dr. Briggs am the pneumatic system conveyor operator of record unless further attestation of next provider. We will initiate diagnostics/treatments as indicated and place in main ED as soon as available. PAM BRIGGS MD [employer] Pma Briggs MD 05/05/22 1313 Normal [facility] Hemogram w/ Autodiffon 05-05 Abs Baso Cnt 0.1 10*3/uL Normal 0.0-0.2 [facility] Comment on above: Performed By: #### H EMDF, CMP3M, LACTS, LIPA4 #### [facility] [address] [place] [address] Abs Neutrophile Cnt 7.1 10*3/uL High 1.8-7.0 [facility] Comment on above: Performed By: #### H EMDF, CMP3M, LACTS, LIPA4 #### [address] [address] [place] [address] Basophils/100 WBC (Bld) 1.2 % Normal 0.0-2.0 [facility] Comment on above: Performed By: #### H EMDF, CMP3M, LACTS, LIPA4 #### [address] [place] [address] Eosinophils (Bld) [#/Vol] 0.0 10*3/uL Normal 0.0-0.5 [facility] Comment on above: Performed By: #### H EMDF, CMP3M, LACTS, LIPA4 #### [address] [address] [place] [address] Eosinophils/100 WBC (Bld) 0.2 % Low 1.0-6.0 [facility] Comment on above: Performed By: #### H EMDF, CMP3M, LACTS, LIPA4 #### [address] [address] [place] [address] Erythrocyte distribution width (RBC) [Ratio] 15.6 % High 11.5-14.5 [facility] Comment on above: Performed By: #### H EMDF, CMP3M, LACTS, LIPA4 #### [address] [address] [place] [address] Granulocytes/100 WBC (Bld) 69.5 % Normal 40.0-80.0 [facility] Comment on above: Performed By: #### H EMDF, CMP3M, LACTS, LIPA4 #### [address] [address] [place], [place] Hematocrit (Bld) [Volume fraction] 33.3 % Low 35.0-47.0 [facility] Comment on above: Performed By: #### H EMDF, CMP3M, LACTS, LIPA4 #### [address] [place], [place] Hemoglobin (Bld) [Mass/Vol] 10.7 g/dL Low 11.7-16.0 [facility] Comment on above: Performed By: #### H EMDF, CMP3M, LACTS, LIPA4 #### [address] [address] [place], [place] Lymphocytes (Bld) [#/Vol] 2.3 10*3/uL Normal 1.0-4.3 [facility] Comment on above: Performed By: #### H EMDF, CMP3M, LACTS, LIPA4 #### [address] [address] [place], [place] Lymphocytes/100 WBC (Bld) 23.1 % Normal 20.0-40.0 [facility] Comment on above: Performed By: #### H EMDF, CMP3M, LACTS, LIPA4 #### [address] MCH (RBC) [Entitic mass] 27.6 pg Normal 26.0-34.0 [facility] Comment on above: Performed By: #### H EMDF, CMP3M, LACTS, LIPA4 #### [address] [place], [place] MCHC 32.0 % Normal 32.0-36.0 [facility] Comment on above: Performed By: #### H EMDF, CMP3M, LACTS, LIPA4 #### [address] [address] [place], [place] MCV (RBC) [Entitic vol] 86.3 fL Normal 79.0-98.0 [facility] Comment on above: Performed By: #### H EMDF, CMP3M, LACTS, LIPA4 #### [address] [place], [place] Monocytes (Bld) [#/Vol] 0.6 10*3/uL Normal 0.0-0.8 [facility] Comment on above: Performed By: #### H EMDF, CMP3M, LACTS, LIPA4 #### [address] [address] [place], [place] Monocytes/100 WBC (Bld) 6.0 % Normal 2.0-10.0 [facility] Comment on above: Performed By: #### H EMDF, CMP3M, LACTS, LIPA4 #### [address] Platelet mean volume (Bld) [Entitic vol] 7.8 fL Normal 7.4-12.4 [facility] Comment on above: Result Comment: MPV is a calculated measurement using platelet volume ratio. Performed By: #### H EMDF, CMP3M, LACTS, LIPA4 #### [address] [address] [place], [place] Platelets (Bld) [#/Vol] 301 10*3/uL Normal 140-440 [facility] Comment on above: Performed By: #### H EMDF, CMP3M, LACTS, LIPA4 #### [address] [address] [place], [place] RBC (Bld) [#/Vol] 3.86 10*6/uL Normal 3.80-5.20 [facility] Comment on above: Performed By: #### H EMDF, CMP3M, LACTS, LIPA4 #### [address] WBC (Bld) [#/Vol] 10.2 10*3/uL Normal 3.6-10.7 [facility] Comment on above: Performed By: #### H EMDF, CMP3M, LACTS, LIPA4 #### [address] [place] [address] Lactate, Sepsison 05-05-2022 Lactate [Moles/Vol] 1 mmol/L 0.7 - 2 mmol/L [facility] Lactic Acid, Sepsison 2021 Lactate [Moles/Vol] 1.0 mmol/L Normal 0.7-2.0 [facility] Comment on above: Performed By: #### H EMDF, CMP3M, LACTS, LIPA4 #### [address] [address] [place] [address] Lipaseon 05-05-2022 Lipase [Catalytic activity/Vol] 164 U/L Normal 23-300 [facility] Comment on above: Performed By: #### H EMDF, CMP3M, LACTS, LIPA4 #### [address] [address] Lipase [Catalytic activity/Vol] 164 U/L 23 - 300 U/L [facility] No Panel Informationon 05-05 Test Performed by [facility], [address] [place] [address] LAB [facility] Radiology Study observation (narrative) [facility] Work Phone: Urinalysison 05-05-2022 Appearance (U) Clear Clear NA [facility] Comment on above: . Bilirubin Urine Negative Negative mg/dL [facility] Comment on above: . Color (U) Colorless Lt. Yellow NA [facility] Comment on above: . Glucose, Ur Normal Normal (<70) mg/dL [facility] Comment on above: . Ketones Ql (U) Negative Negative mg/dL [facility] Comment on above: . LEUKOCYTES, UA Negative Negative Reyes/uL [facility] Comment on above: . Nitrite, Urine Negative Negative NA [facility] Comment on above: . Occult Blood,Urine Negative Negative mg/dL [facility] Comment on above: . pH (U) 6.0 [pH] [facility] Comment on above: . Specific [place], Urine 1.010 [facility] Comment on above: . Total Protein, Urine Negative Negative mg/dL [facility] Comment on above: . Urobilinogen, Urine Normal Normal ( 0-1) mg/dL [facility] Comment on above: . Test Performed by [facility], [address] [place] [address] [facility] XR CHEST PORTABLEon 05-05-20 [facility]: [id number] ACCESSION EXAM DATE/TIME PROCEDURE ORDERING PROVIDER [id number] 05/05/2022 15:06 EDT CR Chest Portable MD BRIGGS MARK D CPT code 27375 Reason For Exam (CR Chest Portable) sepsis Report AP CHEST X-RAY CLINICAL INDICATION: sepsis TECHNIQUE: AP portable x-ray of the chest. COMPARISON: 12/03/2020 FINDINGS: Lines/Tubes: None Heart/Mediastinum: Within normal limits Lungs: No consolidation or pleural effusion. Bones: Unremarkable IMPRESSION: No evidence of an acute cardiopulmonary abnormality. Report Dictated on --- Final --- Dictated: 05/05/2022 2:58 pm Dictating Physician: MD MARSH THOMAS Signed Date and Time: 05/05/2022 2:59 pm Signed by: MD MARSH THOMAS Transcribed Date and Time: 05/05/2022 2:58 [facility] Juancho Marsh M D - 05/05/2022 [id number] Diagnostic Radiology ACCESSION EXAM DATE/TIME PROCEDURE ORDERING PROVIDER [id number] 05/05/2022 15:06 EDT CR Chest Portable MD BRIGGS MARK D CPT code 21861 Reason For Exam (CR Chest Portable) sepsis Report AP CHEST X-RAY CLINICAL INDICATION: sepsis TECHNIQUE: AP portable x-ray of the chest. COMPARISON: 12/03/2020 FINDINGS: Lines/Tubes: None Heart/Mediastinum: Within normal limits Lungs: No consolidation or pleural effusion. Bones: Unremarkable IMPRESSION: No evidence of an acute cardiopulmonary abnormality. Report Dictated on --- Final --- Dictated: 05/05/2022 2:58 pm Dictating Physician: MD MARSH THOMAS Signed Date and Time: 05/05/2022 2:59 pm Signed by: MD MARSH THOMAS Transcribed Date and Time: 05/05/2022 2:58 [facility] Work Phone: XR CHEST PORTABLEOrdered By: Juancho Marsh on 05-05-2022 [facility] Work Phone: Op Noteon 05-04-2022 Op Note Operative Note Department of Obstetrics and Gynecology Patient: Socorro Gonsales : 1995 Date of Procedure: 05/04/22 Pre-operative Diagnosis: Chronic Pelvic Pain, Abnormal Uterine Bleeding, History of Exploratory Laparotomy Post-operative Diagnosis: Same Procedure: Total Laparoscopic Hysterectomy, Cystoscopy Surgeon: Dr. Crump Therapeutic Mentor(s): Dr. Acevedo Anesthesia: general via ET , TAP Block Yes Findings: Normal appearing uterus, ovaries, and cervix. Surgically absent fallopian tubes. Significant omental adhesions to the anterior abdominal wall above the level of the umbilicus and in the RUQ. Well healed staple line at the prior appendectomy. Total IV fluids/Blood products: 1000 ml crystalloid Urine Output: 300 ml Estimated blood loss: 50ml Drains: none Specimens: Cervix, Uterus Instrument and Sponge Count: Correct x 2 Yes Complications: none Condition: good, transferred to post anesthesia recovery Procedure: The patient was brought to the operating room with running IV fluids. General anesthesia was administered without difficulty. The patient was placed in a dorsal lithotomy position with Yellofin stirrups. She was then prepped and draped in the usual sterile fashion. A weighted speculum was inserted into the vagina, and the anterior lip of the cervix was grasped with a single-tooth tenaculum. The cervix was dilated to allow placement of a 8 HI uterine manipulator. A barrera catheter was then placed, and clear urine was noted. The surgeon's gloves were changed, and attention was directed to the laparoscopic portion of the procedure. A 5mm skin incision was made in LUQ at Costa's point. A Veres needle was inserted without difficulty. A low opening pressure validated correct intraperitoneal placement. The pneumoperitoneum was created with CO2 gas to a pressure of 15 mmHg. A 10 mm incision was made at the base of the umbilicus with the scalpel. A 10mm bladed balloon trocar was inserted under direct visualization. Intraabdominal survey revealed no evidence of visceral or vascular injury. 5 mm accessory ports were placed in the left and right lower quadrants under direct visualization. Attention was directed to the pelvis. Survey revealed the above findings. The left utero-ovarian ligament was desiccated with Chirag bipolar device and transected with Harmonic scalpel. The broad ligament was divided with blunt dissection and Harmonic scalpel. The vesicouterine peritoneum was transected with the Harmonic. The anterior portion of the uterine vessels were skeletonized. The posterior broad ligament was transected aiming towards the uterosacral ligaments. Then using Harmonic and blunt dissection, we skeletonized posterior to the uterine vessels to the level of the cup. The same was repeated on the right side, and the bladder flap was created with harmonic scalpel and blunt disection. The left uterine artery was desiccated with Chirag and transected with Harmonic, followed by the cardinal ligaments using the Harmonic. Adequate hemostasis was appreciated along the pedicles. This was again repeated on the opposite side. The colpotomy was then made using the Harmonic along the cup ridge as a guide. The specimen was delivered through the vagina without difficulty. The pelvis was then irrigated and suctioned. A 10 mm suprapubic port was then placed under direct visualizaiton. The vaginal cuff was closed with 4 laparoscopically placed figure of 8 sutures of 2-0 Monocryl. Hemostasis was noted. The bladder was then filled with 150 mL of water. The Barrera was removed. Cystoscopy was performed. The dome was noted to be free of any suture material and fully intact. The ureters were noted to efflux good jets of urine bilaterally. Again, we placed the scope into the abdomen. Again hemostasis was noted. The 10 mm umbilical and suprapubic ports were closed using a Jadon-Roshni and an 0 Vicryl. Some bleeding was noted at the umbilical port. The Chirag bipolar was used to to ensure hemostasis, and an additional stitch was placed with the Carlota. Hemostasis was noted. The surgical pedicles were watched under low insufflation pressure noted to be hemostatic. Pneumoperitoneum was then released and the ports removed. The subcutaneous tissue of the suprapubic incision was noted to be oozing significantly and therefore Bovie was used to fulgurate and 2 deep stitches of 2-0 Vicryl were placed to reapproximate the subcutaneous tissue. The umbilical incision was treated in a similar fashion with Bovie. And 2 deep stitches of 4-0 Monocryl were placed. The skin incisions were closed with 4-0 monocryl. The patient tolerated the procedure well. All counts were correct x2. Patient was awakened from general anesthesia and taken to the PACU in stable condition. Dr. Crump was present for the entirety of the procedure. Jaden Acevedo MD 05/04/2022, 7:21 PM I tiara (more content not included)... Normal [facility] Surgical Pathologyon 022 Surgical Pathology [id number] [facility] PATHOLOGY AND LABORATORY MEDICINE [address] [place], [place] [id number] FINAL SURGICAL PATHOLOGY REPORT NAME: SOCORRO GONSALES N [id number] : 1995 26 Y F BILLING NO.: [id number] [address] PROCEDURE 05/04/2022 DATE: SURGEON: LARS CRUMP MD RECEIVED 05/05/2022 DATE: ATTENDING: LARS CRUMP MD REPORT DATE: 05/08/2022 COPIES TO: DIAGNOSIS: UTERUS, HYSTERECTOMY - BENIGN CERVIX - SECRETORY ENDOMETRIUM - LEIOMYOMA HCK/HCK Signature> ADOLFO DILL M.D. CLINICAL INFORMATION: N93.9, R10.2. SPECIMEN: UTERUS, WITH/WITHOUT TUBES AND OVARIES GROSS DESCRIPTION: Received in formalin labeled uterus and cervix is a uterus with attached cervix measuring 9 x 7 x 5 cm. The uterus and cervix together weigh 165 g. The serosal surface is finely wrinkled to bosselated pink-mercado. There are focal areas of surgical change identified. Cervical mucosa is glistening, somewhat dusky pink-mercado. Cervical os is gaping and measures 1.9 cm in length. Upon transection, the squamo-columnar junction appears somewhat distinct. The endocervical canal measures approximately 1.5 cm in length while the endometrial cavity measures 4.5 cm in length and up to 3 cm in width. The endometrium is edematous, pink-veliz, focally hemorrhagic, and averages approximately 0.5 cm in thickness. Sectioning through the myometrium reveals it be slightly trabeculated and it contains a single, small, bulging, nodular mass measuring 1 x 0.5 cm. It demonstrates a whorled, white-mercado cut surface which is free from areas of hemorrhage or friability. No other mass lesions are identified. Multiple phlebotomy services representative sections are submitted in five cassettes as follows: Cassette 1- anterior cervix and lower uterine segment; Cassette 2- posterior cervix and lower uterine segment; Cassette 3- full-thickness section of anterior endometrium and myometrium; Cassette 4- full-thickness section of posterior endometrium and myometrium; Cassette 5- sections of the solitary bulging mass. JCK/LS3 Disclaimer: The following statement applies to all immunohistochemistry, in situ hybridization, molecular studies, and immunofluorescence testing. The use of one or more reagents in the above tests is regulated as an analyte specific reagent (ASR). These tests were developed and their performance characteristics determined by the clinical laboratories of [facility]. They have not been cleared by the US Food and Drug Administration (FDA). The FDA has determined that such clearance or approval is not necessary. All the above immunostains were performed on paraffin embedded tissue. Appropriate positive and negative controls (where applicable) were run in parallel with the patient's specimen; these controls showed expected staining pattern, with acceptable intensity of staining. Immunohistochemical assays have not been validated on decalcified tissues. Results should be interpreted with caution given the raised possibility of false negativity on decalcified specimens. Professional Performing Location: [address] [address]. DEPARTMENT OF PATHOLOGY AND LABORATORY MEDICINE [place], [place] [address] [email or web address] Normal [facility] Hemoglobin AND Hematocriton 04-27-2022 Hematocrit (Bld) [Volume fraction] 36.8 % Normal 35.0-47.0 [facility] Comment on above: Performed By: #### H GHCT #### [address] [address] Hemoglobin (Bld) [Mass/Vol] 11.7 g/dL Normal 11.7-16.0 [facility] Comment on above: Performed By: #### H GHCT #### [address] [address] No Panel Informationon 04-27 Test Performed by [address] - [facility] 04-27-2022 TS GEL ABO Group: A Rh, Gel: POS Antibody Screen Gel: NEG Normal [facility] Comment on above: Performed By: #### T SGL #### [facility] TYPE AND SCREENon 04-27-2022 ABO Grouping A [facility] Rh Type Positive [facility] Bacteria Ur Culton 2 Bacteria identified Cx Nom (U) CULTURE, URINE: No growth (<1,000 CFU/ml) Normal [facility] Comment on above: Performed By: #### 6 30-4 ####[facility] LABCLIA [id number] [place] [address] [place] Basic metabolic 2000 panelon 02-20-2022 Anion gap [Moles/Vol] 11 mmol/L Normal 9-18 [facility] Comment on above: Order Comment: Speci men Type: BLOOD SPECIMENOrdering Facility: [facility] Address: [address] [place] [address] Performed By: #### 2 4321-2 ####[facility]ATORYCLIA [id number] [place] [address] [place] Calcium [Mass/Vol] 9.5 mg/dL Normal 8.5-10.[address] [facility] Comment on above: Order Comment: Speci men Type: BLOOD SPECIMENOrdering Facility: [facility] Address: [address] [place] [address] Performed By: #### 2 4321-2 ####[facility]ORATORYCLIA [id number] [place] [address] [place] Chloride [Moles/Vol] 104 mmol/L Normal 97-105 [facility] Comment on above: Order Comment: Speci men Type: BLOOD SPECIMENOrdering Facility: [facility] Address: [address] [place], [place] [id number] Performed By: #### 2 4321-2 ####[facility] LABORATORYCLIA [id number] [place] [address] [place] CO2 [Moles/Vol] 25 mmol/L Normal 22-[address] [facility] Comment on above: Order Comment: Speci men Type: BLOOD SPECIMENOrdering Facility: [facility] Address: [address] [place], [place] [id number] Performed By: #### 2 4321-2 ####[facility]ATORYCL[facility] [id number] [place] [address] [place] Creatinine [Mass/Vol] 0.73 mg/dL Normal 0.58-0.96 [facility] Comment on above: Order Comment: Speci men Type: BLOOD SPECIMENOrdering Facility: [facility] Address: [address] [place] [address] Performed By: #### 2 4321-2 ####[facility]ORATORYCLIA [id number] [place] [address] [place] ESTIMATED GLOMERULAR FILTRATION RATE 116 mL/min/1.73m??? Normal >=[address] [facility] Comment on above: Order Comment: Aaron sands Type: BLOOD SPECIMENOrdering Facility: [facility] Address: [address] [place] [address] Result Comment: Karla mated Glomerular Filtration Rate (eGFR) is calculated using the 2020 CKD-EPI creatinine equation. This equation utilizes serum creatinine, sex, and age as parameters. The creatinine assay has traceable calibration to isotope dilution-mass spectrometry. Refer to KDIGO guidelines for clinical interpretation. In patients with unstable renal function, e.g. those with acute kidney injury, the eGFR may not accurately reflect actual GFR. Performed By: #### 2 4321-2 ####[facility]ATORYCLIA [id number] [place] [id number] [place] Glucose [Mass/Vol] 82 mg/dL Normal 74-[address] [facility] Comment on above: Order Comment: Aaron sands Type: BLOOD SPECIMENOrdering Facility: [facility] Address: [address] [id number] Result Comment: The [place] Diabetes Association (ADA) provides guidance for cutoff values for fasting glucose and random glucose. The ADA defines fasting as no caloric intake for at least 8 hours. Fasting plasma glucose results between 100 to 125 mg/dL indicate increased risk for diabetes (prediabetes). Fasting plasma glucose results greater than or equal to 126 mg/dL meet the criteria for diagnosis of diabetes. In the absence of unequivocal hyperglycemia, results should be confirmed by repeat testing. In a patient with classic symptoms of hyperglycemia or hyperglycemic crisis, random plasma glucose results greater than or equal to 200 mg/dL meet the criteria for diagnosis of diabetes. Reference: Standards of Medical Care in Diabetes 2016, [place] Diabetes Association. Diabetes Care. 2016.39(Suppl 1). Performed By: #### 2 4321-2 ####[facility] LABORATORYCLIA [id number] [place] [address] [place] Potassium [Moles/Vol] 3.7 mmol/L Normal 3.7-5.1 [facility] Comment on above: Order Comment: Aaron sands Type: BLOOD SPECIMENOrdering Facility: [facility] Address: [address] [place] [address] Performed By: #### 2 4321-2 ####[facility] LABORATORYCLIA [id number] [address] STATES [facility] Sodium [Moles/Vol] 140 mmol/L Normal 136-[address] [facility] Comment on above: Order Comment: Speci men Type: BLOOD SPECIMENOrdering Facility: [facility] Address: [address] [place] [address] Performed By: #### 2 4321-2 ####VILLA LABORATORYCLIA [id number] [address] STATES [facility] Urea nitrogen [Mass/Vol] 9 mg/dL Normal 7-[address] [facility] Comment on above: Order Comment: Speci men Type: BLOOD SPECIMENOrdering Facility: [facility] Address: [address] [place] [address] Performed By: #### 2 4321-2 ####VILLA LABORATORYCLIA [id number] [address] STATES [facility] CBC W Auto Differential pane l (Bld)on 02-20-2022 Basophils (Bld) [#/Vol] 0.04 10*3/uL Normal <0.[address] [facility] Comment on above: Order Comment: Speci men Type: BLOOD SPECIMENOrdering Facility: [facility] Address: [address] [place] [address] Performed By: #### 5 7021-8 ####VILLA LABORATORYCLIA [id number] [address] [place] Basophils/100 WBC (Bld) 0.5 % Normal [facility] Comment on above: Order Comment: Speci men Type: BLOOD SPECIMENOrdering Facility: [facility] Address: [address] [place] [address] Performed By: #### 5 7021-8 ####VILLA LABORATORYCLIA [id number] [address] Differential cell count method Nom (Bld) Auto Normal [facility] Comment on above: Order Comment: Speci men Type: BLOOD SPECIMENOrdering Facility: [facility] Address: [address] [place] [address] Performed By: #### 5 7021-8 ####VILLA LABORATORYCLIA [id number] [place] [address] [place] Eosinophils (Bld) [#/Vol] 0.15 10*3/uL Normal <0.[address] [facility] Comment on above: Order Comment: Speci men Type: BLOOD SPECIMENOrdering Facility: [facility] Address: [address] [place] [address] Performed By: #### 5 7021-8 ####VILLA LABORATORYCLIA [id number] [place] [address] [place] Eosinophils/100 WBC (Bld) 1.9 % Normal [facility] Comment on above: Order Comment: Speci men Type: BLOOD SPECIMENOrdering Facility: [facility] Address: [address] [place] [address] Performed By: #### 5 7021-8 ####VILLA LABORATORYCLIA [id number] [address] [place] Erythrocyte distribution width (RBC) [Ratio] 13.4 % Normal 11.5-15.[address] [facility] Comment on above: Order Comment: Speci men Type: BLOOD SPECIMENOrdering Facility: [facility] Address: [address] [place] [address] Performed By: #### 5 7021-8 ####VILLA LABORATORYCLIA [id number] [place] [address] [place] Hematocrit (Bld) [Volume fraction] 35.9 % Low 36.0-46.[address] [facility] Comment on above: Order Comment: Speci men Type: BLOOD SPECIMENOrdering Facility: [facility] Address: [address] [place] [address] Performed By: #### 5 7021-8 ####VILLA LABORATORYCLIA [id number] [place] [address] [place] Hemoglobin (Bld) [Mass/Vol] 11.6 g/dL Normal 11.5-15.[address] [facility] Comment on above: Order Comment: Speci men Type: BLOOD SPECIMENOrdering Facility: [facility] Address: [address] [place] [address] Performed By: #### 5 7021-8 ####VILLA LABORATORYCLIA [id number] [address] IMMATURE GRAN % 0.3 % Normal [facility] Comment on above: Order Comment: Speci men Type: BLOOD SPECIMENOrdering Facility: [facility] Address: [address] [place] [address] Performed By: #### 5 7021-8 ####VILLA LABORATORYCLIA [id number] [address] IMMATURE GRAN ABS <0.03 Normal <0.[address] [facility] Comment on above: Order Comment: Speci men Type: BLOOD SPECIMENOrdering Facility: [facility] Address: [address] [place] [address] Performed By: #### 5 7021-8 ####VILLA LABORATORYCLIA [id number] [address] [place] Lymphocytes (Bld) [#/Vol] 2.57 10*3/uL Normal 1.00-4.[address] [facility] Comment on above: Order Comment: Speci men Type: BLOOD SPECIMENOrdering Facility: [facility] Address: [address] [place] [address] Performed By: #### 5 7021-8 ####VILLA LABORATORYCLIA [id number] [address] Lymphocytes/100 WBC (Bld) 32.9 % Normal [facility] Comment on above: Order Comment: Speci men Type: BLOOD SPECIMENOrdering Facility: [facility] Address: [address] [place] [address] Performed By: #### 5 7021-8 ####VILLA LABORATORYCLIA [id number] [address] MCH (RBC) [Entitic mass] 28.4 pg Normal 26.0-34.[address] [facility] Comment on above: Order Comment: Speci men Type: BLOOD SPECIMENOrdering Facility: [facility] Address: [address] [place] [address] Performed By: #### 5 7021-8 ####VILLA LABORATORYCLIA [id number] [address] MCHC (RBC) [Mass/Vol] 32.3 g/dL Normal 30.5-36.0 [facility] Comment on above: Order Comment: Speci men Type: BLOOD SPECIMENOrdering Facility: [facility] Address: [address] [place] [address] Performed By: #### 5 7021-8 ####VILLA LABORATORYCLIA [id number] [address] MCV (RBC) [Entitic vol] 87.8 fL Normal 80.0-100.[address] [facility] Comment on above: Order Comment: Speci men Type: BLOOD SPECIMENOrdering Facility: [facility] Address: [address] [place] [address] Performed By: #### 5 7021-8 ####VILLA LABORATORYCLIA [id number] [address] [place] Monocytes (Bld) [#/Vol] 0.46 10*3/uL Normal <0.[address] [facility] Comment on above: Order Comment: Speci men Type: BLOOD SPECIMENOrdering Facility: [facility] Address: [address] [place] [address] Performed By: #### 5 7021-8 ####VILLA LABORATORYCLIA [id number] [address] Monocytes/100 WBC (Bld) 5.9 % Normal [facility] Comment on above: Order Comment: Speci men Type: BLOOD SPECIMENOrdering Facility: [facility] Address: [address] [place] [address] Performed By: #### 5 7021-8 ####VILLA LABORATORYCLIA [id number] [address] [place] Neutrophils (Bld) [#/Vol] 4.57 10*3/uL Normal 1.45-7.[address] [facility] Comment on above: Order Comment: Speci men Type: BLOOD SPECIMENOrdering Facility: [facility] Address: [address] [place] [address] Performed By: #### 5 7021-8 ####VILLA LABORATORYCLIA [id number] [address] Neutrophils/100 WBC (Bld) 58.5 % Normal [facility] Comment on above: Order Comment: Speci men Type: BLOOD SPECIMENOrdering Facility: [facility] Address: [address] [place] [address] Performed By: #### 5 7021-8 ####VILLA LABORATORYCLIA [id number] [place] [address] [place] Nucleated RBC (Bld) [#/Vol] 10*3/uL Normal <0.[address] [facility] Comment on above: Order Comment: Speci men Type: BLOOD SPECIMENOrdering Facility: [facility] Address: [address] [place] [address] Performed By: #### 5 7021-8 ####VILLA LABORATORYCLIA [id number] [place] [address] [place] Nucleated RBC/100 WBC (Bld) [Ratio] 0.0 /100 WBC Normal [facility] Comment on above: Order Comment: Speci men Type: BLOOD SPECIMENOrdering Facility: [facility] Address: [address] [place] [address] Performed By: #### 5 7021-8 ####VILLA LABORATORYCLIA [id number] [address] [place] Platelet mean volume (Bld) [Entitic vol] 10.2 fL Normal 9.0-12.[address] [facility] Comment on above: Order Comment: Speci men Type: BLOOD SPECIMENOrdering Facility: [facility] Address: [address] [place] [address] Performed By: #### 5 7021-8 ####VILLA LABORATORYCLIA [id number] [place] [address] [facility] [place] Platelets (Bld) [#/Vol] 300 10*3/uL Normal 150-[address] [facility] Comment on above: Order Comment: Speci men Type: BLOOD SPECIMENOrdering Facility: [facility] Address: [address] [place] [address] Performed By: #### 5 7021-8 ####VILLA LABORATORYCLIA [id number] [place] [address] [facility] [place] RBC (Bld) [#/Vol] 4.09 10*6/uL Normal 3.90-5.20 [facility] Comment on above: Order Comment: Speci men Type: BLOOD SPECIMENOrdering Facility: [facility] Address: [address] [place] [address] Performed By: #### 5 7021-8 ####VILLA LABORATORYCLIA [id number] [address] WBC (Bld) [#/Vol] 7.81 10*3/uL Normal 3.70-11.00 [facility] Comment on above: Order Comment: Speci men Type: BLOOD SPECIMENOrdering Facility: [facility] Address: [address] [place] [address] Performed By: #### 5 7021-8 ####VILLA LABORATORYCLIA [id number] [address] ED PROV NOTEon 02-20-2022 ED PROV NOTE HNO ID: [id number] Author: Fredi Girard MD Service: Emergency Medicine Author Type: Physician Type: ED Provider Notes Filed: 02/20/2022 9:35 PM Note Text: ED Provider Note Patient Name: Socorro Gonsales : 1995 SERVICE DATE: 02/20/22 History Patient presents with: Pelvic Pain This is a 26-year-old female who comes into the emergency department with complaints of pelvic pain. 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 She said she felt a pop in the right lower pelvis and then has had increased pain happen this afternoon and evening. She has her normal discharge. She denies any chance of STDs states that she has not had a different partner in the last 7 years she denies . She states that she has a tubal and she recently had a normal ultrasound and CT of the abdomen. She said that this is similar to her other bouts of pelvic pain but worse. No vomiting. No dysuria frequency urgency PAST MEDICAL HISTORY Diagnosis Date - Anemia - anxiety - Asthma PAST SURGICAL HISTORY Procedure Laterality Date - LAPAROSCOPY W/RMVL ADNEXAL STRUCTURES Bilateral 04/28/2018 l/s bilateral salpingectomy - PAST SURGICAL HISTORY OF wisdom teeth - PAST SURGICAL HISTORY OF 03/2020 exploratory laparoscopy FAMILY HISTORY Problem Relation Age of Onset - Heart Mother - Seizures Mother - Stroke Mother - Multiple Sclerosis Mother - Psychiatry Sister Manic Depression - Hypertension Maternal Grandfather - Breast Cancer Maternal Aunt - Hypertension Maternal Uncle Social History Tobacco Use - Smoking status: Former Smoker Years: 3.00 - Smokeless tobacco: Never Used Substance and Sexual Activity - Alcohol use: Yes Comment: rarely - Drug use: No - Sexual activity: Yes Partners: Male control/protection: Tubal Ligation Comment: bilateral salpingectomy 2017 ALLERGIES Allergen Reactions - Gabapentin Other: See Comments, Unknown [place] like Heart was racing - Latex Rash, Itching - Seasonal Allergies Other: See Comments nasal congestion - Zofran [Ondansetron] Itching Itching and redness in arm when given Zofran IV Review of Systems Constitutional: Negative for fever. HENT: Negative for trouble swallowing. Eyes: Negative for visual disturbance. Respiratory: Negative for shortness of breath. Cardiovascular: Negative for chest pain. Gastrointestinal: Negative for abdominal pain. Genitourinary: Positive for pelvic pain. Negative for decreased urine volume, dysuria, enuresis, flank pain, frequency, urgency, vaginal bleeding, vaginal discharge and vaginal pain. Musculoskeletal: Negative for arthralgias. Skin: Negative for rash. Neurological: Negative for seizures. Hematological: Negative for adenopathy. Psychiatric/Behavioral: Negative for suicidal ideas. All other systems reviewed and are negative. Physical Exam Vitals BP Pulse Temp Temp src Resp SpO2 Weight Height 02/20/22199902/20/22200202/20/22200202/20/22200202/20/22200202/20/22200202/20/22200202/20/222002 117/67 (!) 100 37 ?C (98.6 ?F) Oral 18 99 % 68 kg (150 lb) 1.651 m (5' 5) Physical Exam Vitals and nursing note reviewed. Constitutional: Appearance: Normal appearance. HENT: Head: Normocephalic and atraumatic. Right Ear: Tympanic membrane, ear canal and external ear normal. Left Ear: Tympanic membrane, ear canal and external ear normal. Nose: Nose normal. Mouth/Throat: Mouth: Mucous membranes are moist. Eyes: Extraocular Movements: Extraocular movements intact. Conjunctiva/sclera: Conjunctivae normal. Pupils: Pupils are equal, round, and reactive to light. Cardiovascular: Rate and Rhythm: Normal rate and regular rhythm. Pulses: Normal pulses. Heart sounds: Normal heart sounds. No murmur heard. No friction rub. No gallop. Pulmonary: Effort: Pulmonary effort is normal. No respiratory distress. Breath sounds: Normal breath sounds. No wheezing, rhonchi or rales. Chest: Chest wall: No tenderness. Abdominal: General: Bowel sounds are normal. There is no distension. Palpations: Abdomen is soft. There is no mass. Tenderness: There is no abdominal tenderness. There is no right CVA tenderness, left CVA tenderness, guarding or rebound. Hernia: No hernia is present. Comments: Some pain to palpation in the lower abdomen bilaterally right greater than left. No rebound rigidity slight guarding. No flank tenderness normal bilateral femoral pulses Musculoskeletal: General: No swelling, tenderness, deformity or signs of injury. Normal range of motion. Cervical back: Normal range of motion and neck supple. No rigidity. Right lower leg: No edema. Left lower leg: No edema. Lymphadenopathy: Cervical: No cervical adenopathy. Skin: General: Skin is warm and dry. Capillary Refill: Capillary refill takes less than 2 seconds. Coloratio (more content not included)... Normal [facility] HCG Preg Ur Qlon 02-20-2022 HCG ( test) Ql (U) Negative Normal Negative [facility] Comment on above: Order Comment: Speci men Type: URINE SPECIMENOrdering Facility: [facility] Address: [address] [place] [address] Result Comment: This test is intended to aid in the early detection of . Very dilute urine samples, as indicated by a low specific gravity, may not contain phlebotomy services representative levels of hCG. This test detects intact hCG only. This test does not reliably detect hCG degradation products, including free-beta subunit and beta-core fragment. Therefore, this test may show reduced reactivity in urine after 8 weeks gestation. A number of conditions other than , including trophoblastic disease and certain non-trophoblastic neoplasms cause elevated levels of hCG. As with any assay employing mouse antibodies, the possibility exists for interference by human anti-mouse antibodies (HAMA) in the specimen. The test provides a presumptive diagnosis for . Performed By: #### 2 106-3 ####VILLA LABORATORYCLIA [id number] [address] URINALYSIS, REFLEX MICROSCOP ICon 02-20-2022 Bilirubin Ql (U) Negative Normal Negative [facility] Comment on above: Order Comment: Speci men Type: URINE SPECIMENOrdering Facility: [facility] Address: [address] [place] [address] Performed By: #### L [id number] ####VILLA LABORATORYCLIA [id number] [address] Clarity (Unsp spec) Clear Normal Clear [facility] Comment on above: Order Comment: Speci men Type: URINE SPECIMENOrdering Facility: [facility] Address: [address] [place] [address] Performed By: #### L [id number] ####VILLA LABORATORYCLIA [id number] [address] Color (U) Yellow Normal Yellow [facility] Comment on above: Order Comment: Speci men Type: URINE SPECIMENOrdering Facility: [facility] Address: [address] [place] [address] Performed By: #### L [id number] ####VILLA LABORATORYCLIA [id number] [address] Glucose Test strip (U) [Mass/Vol] Negative Normal Negative [facility] Comment on above: Order Comment: Speci men Type: URINE SPECIMENOrdering Facility: [facility] Address: [address] [place] [address] Performed By: #### L [id number] ####VILLA LABORATORYCLIA [id number] [place] [address] [place] Hemoglobin Ql (U) Negative Normal Negative [facility] Comment on above: Order Comment: Speci men Type: URINE SPECIMENOrdering Facility: [facility] Address: [address] [place] [address] Performed By: #### L [id number] ####VILLA LABORATORYCLIA [id number] [place] [address] [place] Ketones Ql (U) Negative Normal Negative [facility] Comment on above: Order Comment: Speci men Type: URINE SPECIMENOrdering Facility: [facility] Address: [address] [place] [address] Performed By: #### L [id number] ####VILLA LABORATORYCLIA [id number] [address] STATES [place] Leukocyte esterase Test strip Ql (U) Negative Normal Negative [facility] Comment on above: Order Comment: Speci men Type: URINE SPECIMENOrdering Facility: [facility] Address: [address] [place] [address] Performed By: #### L [id number] ####VILLA LABORATORYCLIA [id number] [place] [address] [place] Nitrite Ql (U) Negative Normal Negative [facility] Comment on above: Order Comment: Speci men Type: URINE SPECIMENOrdering Facility: [facility] Address: [address] [place] [address] Performed By: #### L [id number] ####VILLA LABORATORYCLIA [id number] [place] [address] [place] pH (U) 6.5 [pH] Normal 5.0-8.0 [facility] Comment on above: Order Comment: Speci men Type: URINE SPECIMENOrdering Facility: [facility] Address: [address] [place] [address] Performed By: #### L [id number] ####VILLA LABORATORYCLIA [id number] [place] [address] [place] Protein (U) [Mass/Vol] Negative Normal Negative [facility] Comment on above: Order Comment: Speci men Type: URINE SPECIMENOrdering Facility: [facility] Address: [address] [place] [address] Performed By: #### L [id number] ####OTTER LABORATORYCLIA [id number] [address] [place] Specific gravity (U) [Rel density] 1.015 Normal 1.005-1.[address] [facility] Comment on above: Order Comment: Speci men Type: URINE SPECIMENOrdering Facility: [facility] Address: [address] [place] [address] Performed By: #### L [id number] ####OTTER LABORATORYCLIA [id number] [address] [place] Urobilinogen Ql (U) 0.2 EU/dL Normal 0.2-1.0 EU/dL [facility] Comment on above: Order Comment: Speci men Type: URINE SPECIMENOrdering Facility: [facility] Address: [address] [place] [address] Performed By: #### L [id number] ####OTTER LABORATORYCLIA [id number] [address] [place] ALLIED HEALTHon 02-01-2022 ALLIED HEALTH HNO ID: [id number] Author: RT Ksenia(R) Service: Radiology Author Type: Technologist Type: Allied Health Filed: 02/01/2022 1:56 PM Note Text: Radiology Service Progress Note PATIENT NAME: Socorro Gonsales DATE OF SERVICE: February 01, 2022 TIME: 1:54 PM PATIENT IDENTITY VERIFICATION COMPLETED USING TWO (2) IDENTIFIERS: Name and Date of confirmed by patient verbally and Name and Date of confirmed by identification band. FALL SCREENING: Has the patient had 2 falls in the last year or 1 fall with injury or currently using an Ambulatory Assistive Device (Walker, Cane, Wheelchair, Crutches, etc.)? Emergency Room Patient: Screened in ED PATIENT GENDER DATA: Female. status: : No status: NO. PATIENT RELEVANT IMPLANT DATA REVIEWED: Not Applicable RADIOLOGY DEPARTMENT: CT; Exam(s) Completed: Abdomen/Pelvis PERIPHERAL IV DATA: Not applicable SIGNED BY: RT Ksenia(R) February 01, 2022 1:54 PM [facility] ALLIED HEALTH HNO ID: [id number] Author: RT Gabbi(R) Service: ? Author Type: Mop Machine Operator Type: Allied Health Filed: 02/01/2022 12:44 PM Note Text: Radiology Service Progress Note PATIENT NAME: Socorro Gonsales DATE OF SERVICE: February 01, 2022 TIME: 12:44 PM PATIENT IDENTITY VERIFICATION COMPLETED USING TWO (2) IDENTIFIERS: Name and Date of confirmed by patient verbally. FALL SCREENING: Has the patient had 2 falls in the last year or 1 fall with injury or currently using an Ambulatory Assistive Device (Walker, Cane, Wheelchair, Crutches, etc.)? Emergency Room Patient: Screened in ED PATIENT GENDER DATA: Female. status: : No status: N/A PATIENT RELEVANT IMPLANT DATA REVIEWED: Not Applicable RADIOLOGY DEPARTMENT: Ultrasound PERIPHERAL IV DATA: Not applicable SIGNED BY: RT Gabbi(R) February 01, 2022 12:44 PM [facility] BETA HCG, QUANTITATIVE FOR E Don 02-01-2022 HCG.beta subunit Qn m[IU]/mL Normal <5.0 [facility] Comment on above: Order Comment: Speci men Type: BLOOD SPECIMENOrdering Facility: [facility] Address: [address] [place] [address] Result Comment: Nega tive Performed By: #### 2 4323-8, 95547-2, 3040-3, HCGED ####OTTER LABORATORYCLIA [id number] [place] [id number] [place] Bacteria Ur Culton 2 Bacteria identified Cx Nom (U) ORGANISM ID: 1 <10,000 CFU/ml Mixed microbiota Insignificant colony count. No further workup. [facility] Comment on above: Performed By: #### 6 30-4 ####[facility] LABCLIA [id number] [place] [address] [place] C. trachomatis+N. gonorrhoea e DNA ALLISON+probe Ql (Unsp spec)on 02-01-2022 C. trachomatis DNA ALLISON+probe Ql (Unsp spec) Negative Normal Negative for Chlamydia trachomatis by amplificaton [facility] Comment on above: Order Comment: Speci men Type: SWABOrdering Facility: [facility] Address: [address] [place] [address] Performed By: #### 3 6902-5, TRVAMP ####[facility] LABCLIA [id number] [address] N. gonorrhoeae DNA ALLISON+probe Ql (Unsp spec) Negative Normal Negative for Neisseria gonorrhoeae by amplification [facility] Comment on above: Order Comment: Speci men Type: SWABOrdering Facility: [facility] Address: [address] [place] [address] Performed By: #### 3 6902-5, TRVAMP ####[facility] LABCLIA [id number] [address] STATES OF [facility] CBC W Auto Differential pane l (Bld)on 02-01-2022 Basophils (Bld) [#/Vol] 0.04 10*3/uL Normal <0.[address] [facility] Comment on above: Order Comment: Speci men Type: BLOOD SPECIMENOrdering Facility: [facility] Address: [address] [place] [address] Performed By: #### 5 7021-8 ####OTTER LABORATORYCLIA [id number] [address] [place] Basophils/100 WBC (Bld) 1.0 % Normal [facility] Comment on above: Order Comment: Speci men Type: BLOOD SPECIMENOrdering Facility: [facility] Address: [address] [place] [address] Performed By: #### 5 7021-8 ####OTTER LABORATORYCLIA [id number] [address] Differential cell count method Nom (Bld) Auto Normal [facility] Comment on above: Order Comment: Speci men Type: BLOOD SPECIMENOrdering Facility: [facility] Address: [address] [place] [address] Performed By: #### 5 7021-8 ####VILLA LABORATORYCLIA [id number] [address] [place] Eosinophils (Bld) [#/Vol] 0.15 10*3/uL Normal <0.[address] [facility] Comment on above: Order Comment: Speci men Type: BLOOD SPECIMENOrdering Facility: [facility] Address: [address] [place] [address] Performed By: #### 5 7021-8 ####VILLA LABORATORYCLIA [id number] [address] Eosinophils/100 WBC (Bld) 3.9 % Normal [facility] Comment on above: Order Comment: Speci men Type: BLOOD SPECIMENOrdering Facility: [facility] [facility] Address: [address] [place] [address] Performed By: #### 5 7021-8 ####VILLA LABORATORYCLIA [id number] [address] Erythrocyte distribution width (RBC) [Ratio] 14.4 % Normal 11.5-15.[address] [facility] Comment on above: Order Comment: Speci men Type: BLOOD SPECIMENOrdering Facility: [facility] Address: [address] [place] [address] Performed By: #### 5 7021-8 ####VILLA LABORATORYCLIA [id number] [address] [place] Hematocrit (Bld) [Volume fraction] 36.5 % Normal 36.0-46.[address] [facility] Comment on above: Order Comment: Speci men Type: BLOOD SPECIMENOrdering Facility: [facility] Address: [address] [place] [address] Performed By: #### 5 7021-8 ####VILLA LABORATORYCLIA [id number] [address] [place] Hemoglobin (Bld) [Mass/Vol] 11.8 g/dL Normal 11.5-15.[address] [facility] Comment on above: Order Comment: Speci men Type: BLOOD SPECIMENOrdering Facility: [facility] Address: [address] [place] [address] Performed By: #### 5 7021-8 ####VILLA LABORATORYCLIA [id number] [address] IMMATURE GRAN % 0.3 % Normal [facility] Comment on above: Order Comment: Speci men Type: BLOOD SPECIMENOrdering Facility: [facility] Address: [address] [place] [address] Performed By: #### 5 7021-8 ####VILLA LABORATORYCLIA [id number] [address] IMMATURE GRAN ABS <0.03 Normal <0.[address] [facility] Comment on above: Order Comment: Speci men Type: BLOOD SPECIMENOrdering Facility: [facility] Address: [address] [place] [address] Performed By: #### 5 7021-8 ####VILLA LABORATORYCLIA [id number] [address] Lymphocytes (Bld) [#/Vol] 1.56 10*3/uL Normal 1.00-4.[address] [facility] Comment on above: Order Comment: Speci men Type: BLOOD SPECIMENOrdering Facility: [facility] Address: [address] [place] [address] Performed By: #### 5 7021-8 ####VILLA LABORATORYCLIA [id number] [address] Lymphocytes/100 WBC (Bld) 40.1 % Normal [facility] Comment on above: Order Comment: Speci men Type: BLOOD SPECIMENOrdering Facility: [facility] Address: [address] [place] [address] Performed By: #### 5 7021-8 ####VILLA LABORATORYCLIA [id number] [address] MCH (RBC) [Entitic mass] 28.0 pg Normal 26.0-34.[address] [facility] Comment on above: Order Comment: Speci men Type: BLOOD SPECIMENOrdering Facility: [facility] Address: [address] [place] [address] Performed By: #### 5 7021-8 ####VILLA LABORATORYCLIA [id number] [address] MCHC (RBC) [Mass/Vol] 32.3 g/dL Normal 30.5-36.0 [facility] Comment on above: Order Comment: Speci men Type: BLOOD SPECIMENOrdering Facility: [facility] Address: [address] [place] [address] Performed By: #### 5 7021-8 ####VILLA LABORATORYCLIA [id number] [address] MCV (RBC) [Entitic vol] 86.5 fL Normal 80.0-100.[address] [facility] Comment on above: Order Comment: Speci men Type: BLOOD SPECIMENOrdering Facility: [facility] Address: [address] [place] [address] Performed By: #### 5 7021-8 ####VILLA LABORATORYCLIA [id number] [address] Monocytes (Bld) [#/Vol] 0.25 10*3/uL Normal <0.[address] [facility] Comment on above: Order Comment: Speci men Type: BLOOD SPECIMENOrdering Facility: [facility] Address: [address] [place] [address] Performed By: #### 5 7021-8 ####VILLA LABORATORYCLIA [id number] [address] Monocytes/100 WBC (Bld) 6.4 % Normal [facility] Comment on above: Order Comment: Speci men Type: BLOOD SPECIMENOrdering Facility: [facility] Address: [address] [place] [address] Performed By: #### 5 7021-8 ####VILLA LABORATORYCLIA [id number] [address] [place] Neutrophils (Bld) [#/Vol] 1.88 10*3/uL Normal 1.45-7.[address] [facility] Comment on above: Order Comment: Speci men Type: BLOOD SPECIMENOrdering Facility: [facility] Address: [address] [place], [place] [id number] Performed By: #### 5 7021-8 ####VILLA LABORATORYCLIA [id number] [address] Neutrophils/100 WBC (Bld) 48.3 % Normal [facility] Comment on above: Order Comment: Speci men Type: BLOOD SPECIMENOrdering Facility: [facility] Address: [address] [place], [place] [id number] Performed By: #### 5 7021-8 ####VILLA LABORATORYCLIA [id number] [address] STATES [facility] Nucleated RBC (Bld) [#/Vol] 10*3/uL Normal <0.[address] [facility] Comment on above: Order Comment: Speci men Type: BLOOD SPECIMENOrdering Facility: [facility] Address: [address] [place], [place] [id number] Performed By: #### 5 7021-8 ####VILLA LABORATORYCLIA [id number] [address] Nucleated RBC/100 WBC (Bld) [Ratio] 0.0 /100 WBC Normal [facility] Comment on above: Order Comment: Speci men Type: BLOOD SPECIMENOrdering Facility: [facility] Address: [address] [place], [place] [address] Performed By: #### 5 7021-8 ####VILLA LABORATORYCLIA [id number] [address] Platelet mean volume (Bld) [Entitic vol] 9.7 fL Normal 9.0-12.[address] [facility] Comment on above: Order Comment: Speci men Type: BLOOD SPECIMENOrdering Facility: [facility] Address: [address] [place], [place] [id number] Performed By: #### 5 7021-8 ####VILLA LABORATORYCLIA [id number] [address] [place] Platelets (Bld) [#/Vol] 315 10*3/uL Normal 150-[address] [facility] Comment on above: Order Comment: Speci men Type: BLOOD SPECIMENOrdering Facility: [facility] Address: [address] [place] [address] Performed By: #### 5 7021-8 ####OTTER LABORATORYCLIA [id number] [address] [place] RBC (Bld) [#/Vol] 4.22 10*6/uL Normal 3.90-5.20 [facility] Comment on above: Order Comment: Speci men Type: BLOOD SPECIMENOrdering Facility: [facility] Address: [address] [place] [address] Performed By: #### 5 7021-8 ####OTTER LABORATORYCLIA [id number] [address] [place] WBC (Bld) [#/Vol] 3.89 10*3/uL Normal 3.70-11.00 [facility] Comment on above: Order Comment: Speci men Type: BLOOD SPECIMENOrdering Facility: [facility] Address: [address] [place] [address] Performed By: #### 5 7021-8 ####OTTER LABORATORYCLIA [id number] [address] ABD/PEL WO IVCONon 2021 CT ABD/PEL WO IVCON * * *Final Report* * * DATE OF EXAM: Feb 01 2022 1:59PM [facility]31 - CT ABD/PEL WO IVCON / PROCEDURE REASON: Abdominal pain, acute, nonlocalized * * * * Physician Interpretation * * * * EXAMINATION: CT ABDOMEN AND PELVIS WITHOUT IV CONTRAST CLINICAL HISTORY: Abdominal pain, acute, nonlocalized. Lower abdominal pain x 1 week. History of remote appendectomy. TECHNIQUE: Non-IV contrast imaging of the abdomen and pelvis was performed using standard technique, scanning from just above the dome of the diaphragm to the symphysis pubis. Unenhanced imaging is limited for the evaluation of some intra-abdominal and pelvic pathology. MQ: CTAPWO_3 Contrast: IV: None Oral contrast material was not administered at the request of the ordering physician. CT Radiation dose: Integrated Dose-length product (DLP) for this visit = 499 mGy*cm. CT Dose Reduction Employed: Automated exposure control (AEC) COMPARISON: Comparison is made to prior CT dated 27 Dec 2021 LIMITATIONS: Absence of IV contrast material Abdomen and Pelvis: Liver: No hepatomegaly or focal lesion within the limits of no IV contrast material. Biliary: The gallbladder is surgically absent. Negative biliary dilatation. Spleen: Negative splenomegaly or focal lesion. Pancreas: Pancreas is normal in size, contour and position. No focal masses or ductal dilatation. Adrenals: Both adrenal glands are normal in contour. No focal masses. GI Tract: The bowel gas pattern is nonobstructive. There is no bowel wall thickening or inflammatory change. The appendix is surgically absent. Lymph Nodes: No pathologic lymphadenopathy by size criteria. Mesentery/peritoneum: No focal masses or free fluid. Vasculature: The aorta is normal course and caliber without aneurysmal dilatation. Pelvis: No pelvic mass or abnormal fluid. Normal uterine and adnexal structures. Tampon is seen within the vaginal canal. Bones and Soft Tissues: The bony structures are intact. No bony destructive process noted. Lower thorax: The lung bases are clear. Sewer Cleaner (topogram) images: No additional findings. IMPRESSION: No acute intra-abdominal or pelvic process. Nonobstructive bowel gas pattern. Purchasing Associate: CIPRIANO Transcribe Date/Time: Feb 01 2022 2:09P Dictated by : NIKOLE RODRIGUEZ MD This examination was interpreted and the report reviewed and electronically signed by: NIKOLE RODRIGUEZ MD on Feb 01 2022 2:31PM EST [id number] Normal [facility] Comprehensive metabolic 2000 panelon 02-01-2022 Albumin [Mass/Vol] 4.7 g/dL Normal 3.9-4.[address] [facility] Comment on above: Order Comment: Speci men Type: BLOOD SPECIMENOrdering Facility: [facility] Address: [address] [place] [address] Performed By: #### 2 4323-8, 78907-4, 3040-3, [facility] ####OTTER LABORATORYCLIA [id number] [place], [place] [address] [place] [address] [place] ALP [Catalytic activity/Vol] 56 U/L Normal 34-[address] [facility] Comment on above: Order Comment: Speci men Type: BLOOD SPECIMENOrdering Facility: [facility] Address: [address] [place] [address] Performed By: #### 2 4323-8, 81580-0, 3040-3, HCGED ####VILLA LABORATORYCLIA [id number] [place] [address] [place] ALT [Catalytic activity/Vol] 9 U/L Normal 7-[address] [facility] Comment on above: Order Comment: Speci men Type: BLOOD SPECIMENOrdering Facility: [facility] Address: [address] [place] [address] Performed By: #### 2 4323-8, 18109-6, 3040-3, HCGED ####OTTER LABORATORYCLIA [id number] [address] STATES OF [facility] Anion gap [Moles/Vol] 11 mmol/L Normal 9-18 [facility] Comment on above: Order Comment: Speci men Type: BLOOD SPECIMENOrdering Facility: [facility] Address: [address] [place] [address] Performed By: #### 2 4323-8, 36347-8, 3040-3, HCGED ####OTTER LABORATORYCLIA [id number] [address] AST [Catalytic activity/Vol] 18 U/L Normal 13-[address] [facility] Comment on above: Order Comment: Speci men Type: BLOOD SPECIMENOrdering Facility: [facility] Address: [address] [place] [address] Performed By: #### 2 4323-8, 57729-6, 3040-3, HCGED ####VILLA LABORATORYCLIA [id number] [address] [place] Bilirubin [Mass/Vol] 0.2 mg/dL Normal 0.2-1.3 [facility] Comment on above: Order Comment: Speci men Type: BLOOD SPECIMENOrdering Facility: [facility] Address: [address] Performed By: #### 2 4323-8, 03281-4, 3040-3, HCGED ####VILLA LABORATORYCLIA [id number] [place] [address] [place] Calcium [Mass/Vol] 9.5 mg/dL Normal 8.5-10.[address] [facility] Comment on above: Order Comment: Speci men Type: BLOOD SPECIMENOrdering Facility: [facility] Address: [address] [place] [address] Performed By: #### 2 4323-8, 09657-1, 3040-3, HCGED ####VILLA LABORATORYCLIA [id number] [place] [address] [place] Chloride [Moles/Vol] 107 mmol/L High 97-105 [facility] Comment on above: Order Comment: Speci men Type: BLOOD SPECIMENOrdering Facility: [facility] Address: [address] [place] [address] Performed By: #### 2 4323-8, 91391-3, 3040-3, HCGED ####VILLA LABORATORYCLIA [id number] [place] [address] [place] CO2 [Moles/Vol] 22 mmol/L Normal 22-[address] [facility] Comment on above: Order Comment: Speci men Type: BLOOD SPECIMENOrdering Facility: [facility] Address: [address] [place] [address] Performed By: #### 2 4323-8, 27213-9, 3040-3, HCGED ####VILLA LABORATORYCLIA [id number] [place] [id number] [place] Creatinine [Mass/Vol] 0.65 mg/dL Normal 0.58-0.96 [facility] Comment on above: Order Comment: Speci men Type: BLOOD SPECIMENOrdering Facility: [facility] Address: [address] [place] [address] Performed By: #### 2 4323-8, 82757-9, 3040-3, HCGED ####VILLA LABORATORYCLIA [id number] [place] [address] [place] ESTIMATED GLOMERULAR FILTRATION RATE 125 mL/min/1.73m??? Normal >=[address] [facility] Comment on above: Order Comment: Aaron sands Type: BLOOD SPECIMENOrdering Facility: [facility] Address: [address] [place] [address] Result Comment: Karla mated Glomerular Filtration Rate (eGFR) is calculated using the 2020 CKD-EPI creatinine equation. This equation utilizes serum creatinine, sex, and age as parameters. The creatinine assay has traceable calibration to isotope dilution-mass spectrometry. Refer to KDIGO guidelines for clinical interpretation. In patients with unstable renal function, e.g. those with acute kidney injury, the eGFR may not accurately reflect actual GFR. Performed By: #### 2 4323-8, 98228-4, 0-3, HCGED ####OTTER LABORATORYCLIA [id number] [place] [id number] [place] Glucose [Mass/Vol] 90 mg/dL Normal 74-[address] [facility] Comment on above: Order Comment: Aaron sands Type: BLOOD SPECIMENOrdering Facility: [facility] Address: [address] [place] [address] Result Comment: The [place] Diabetes Association (ADA) provides guidance for cutoff values for fasting glucose and random glucose. The ADA defines fasting as no caloric intake for at least 8 hours. Fasting plasma glucose results between 100 to 125 mg/dL indicate increased risk for diabetes (prediabetes). Fasting plasma glucose results greater than or equal to 126 mg/dL meet the criteria for diagnosis of diabetes. In the absence of unequivocal hyperglycemia, results should be confirmed by repeat testing. In a patient with classic symptoms of hyperglycemia or hyperglycemic crisis, random plasma glucose results greater than or equal to 200 mg/dL meet the criteria for diagnosis of diabetes. Reference: Standards of Medical Care in Diabetes 2016, [place] Diabetes Association. Diabetes Care. 2016.39(Suppl 1). Performed By: #### 2 4323-8, 76657-2, 3040-3, HCGED ####OTTER LABORATORYCLIA [id number] [place] [id number] [place] Potassium [Moles/Vol] 4.5 mmol/L Normal 3.7-5.1 [facility] Comment on above: Order Comment: Speci men Type: BLOOD SPECIMENOrdering Facility: [facility] Address: [address] [place] [address] Performed By: #### 2 4323-8, 98943-9, 3040-3, HCGED ####VILLA LABORATORYCLIA [id number] [address] STATES [facility] Protein [Mass/Vol] 7.9 g/dL Normal 6.3-8.[address] [facility] Comment on above: Order Comment: Speci men Type: BLOOD SPECIMENOrdering Facility: [facility] Address: [address] [place] [address] Performed By: #### 2 4323-8, 93871-3, 3040-3, HCGED ####VILLA LABORATORYCLIA [id number] [address] Sodium [Moles/Vol] 140 mmol/L Normal 136-[address] [facility] Comment on above: Order Comment: Speci men Type: BLOOD SPECIMENOrdering Facility: [facility] Address: [address] [place] [address] Performed By: #### 2 4323-8, 59460-0, 3040-3, HCGED ####VILLA LABORATORYCLIA [id number] [address] Urea nitrogen [Mass/Vol] 8 mg/dL Normal 7-[address] [facility] Comment on above: Order Comment: Speci men Type: BLOOD SPECIMENOrdering Facility: [facility] Address: [address] [place] [address] Performed By: #### 2 4323-8, 90739-8, 3040-3, HCGED ####VILLA LABORATORYCLIA [id number] [address] ED NOTEon 02-01-2022 ED NOTE HNO ID: [id number] Author: Deo Rajan RN Service: ? Author Type: Registered Nurse Type: ED Notes Filed: 02/01/2022 3:25 PM Note Text: The patient verbalizes understanding of discharge instructions. No additional questions or concerns at this time. Patient Vital signs stable, no acute distress noted. Patient ambulatory out of ED. Prescriptions given. [facility] ED NOTE HNO ID: [id number] Author: Deo aRjan RN Service: ? Author Type: Registered Nurse Type: ED Notes Filed: 02/01/2022 2:49 PM Note Text: Patient reports pain is now running down both legs. Dr. Edmondson aware, no additional orders obtained. [facility] ED NOTE HNO ID: [id number] Author: Kellen Escobar RN Service: ? Author Type: Registered Nurse Type: ED Notes Filed: 02/01/2022 11:39 AM Note Text: Has been worked up for this complaint at ED and her OB bur told to come back to ED if increase pain, seen OB last week,also bleeding heavy today and has had 3 mensrtal periods in past month [facility] ED PROV NOTEon 02-01-2022 ED PROV NOTE HNO ID: [id number] Author: Derek Edmondson DO Service: Emergency Medicine Author Type: Physician Type: ED Provider Notes Filed: 02/01/2022 4:00 PM Note Text: ED Provider Note Patient Name: Socorro Gonsales : 1995 SERVICE DATE: 02/01/22 History Patient presents with: Abdominal Pain: pain for months off and on has been seen here and her OB for pain in the past The patient is a pleasant 26-year-old female past medical history of asthma who presents with pelvic pain and vaginal bleeding. Patient reports she has had lower pelvic pain since August 2021. It is continuous sharp stabbing worsened with lying flat and relieved by nothing. She reports pain worsened acutely approximately 6 days ago. She started her menstrual cycle 3 days ago and reports heavy vaginal bleeding over the past 12 hours noting that she is saturating a pad every 20 minutes. She was evaluated by her PIPER INSTALLER 6 days ago and reports a questionable history of adenomyosis. She denies any fevers chills sweats or change in bowel habits. She reports pain is worsened with urination but denies dysuria. Denies any use of blood thinners. She notes nausea and vomiting attributed to severe pain. She has been taking [id number] analgesia without improvement of symptoms. She is currently on doxycycline prescribed by her PIPER INSTALLER for unknown reason. PAST MEDICAL HISTORY Diagnosis Date - Anemia - anxiety - Asthma PAST SURGICAL HISTORY Procedure Laterality Date - LAPAROSCOPY W/RMVL ADNEXAL STRUCTURES Bilateral 04/28/2018 l/s bilateral salpingectomy - PAST SURGICAL HISTORY OF wisdom teeth - PAST SURGICAL HISTORY OF 03/2020 exploratory laparoscopy FAMILY HISTORY Problem Relation Age of Onset - Heart Mother - Seizures Mother - Stroke Mother - Multiple Sclerosis Mother - Psychiatry Sister Manic Depression - Hypertension Maternal Grandfather - Breast Cancer Maternal Aunt - Hypertension Maternal Uncle Social History Tobacco Use - Smoking status: Former Smoker Years: 3.00 - Smokeless tobacco: Never Used Substance and Sexual Activity - Alcohol use: Yes Comment: rarely - Drug use: No - Sexual activity: Yes Partners: Male control/protection: Tubal Ligation Comment: bilateral salpingectomy 2017 ALLERGIES Allergen Reactions - Gabapentin Other: See Comments, Unknown [place] like Heart was racing - Latex Rash, Itching - Seasonal Allergies Other: See Comments nasal congestion - Zofran [Ondansetron] Itching Itching and redness in arm when given Zofran IV Review of Systems Constitutional: Negative. HENT: Negative. Eyes: Negative. Respiratory: Negative. Cardiovascular: Negative. Gastrointestinal: Positive for abdominal pain, nausea and vomiting. Negative for abdominal distention, anal bleeding, blood in stool, constipation, diarrhea and rectal pain. Genitourinary: Positive for difficulty urinating, dyspareunia, menstrual problem, pelvic pain and vaginal bleeding. Negative for decreased urine volume, dysuria, enuresis, flank pain, frequency, genital sores, hematuria, urgency, vaginal discharge and vaginal pain. Musculoskeletal: Negative. Skin: Negative. Neurological: Negative. Psychiatric/Behavioral: Negative. All other systems reviewed and are negative. Physical Exam Vitals [02/01/22 1135] BP Pulse Temp Temp src Resp SpO2 Weight Height 115/72 73 36.7 ?C (98.1 ?F) Oral 16 99 % 68.9 kg (152 lb) -- Physical Exam Vitals and nursing note reviewed. Constitutional: General: She is not in acute distress. Appearance: Normal appearance. She is normal weight. She is not ill-appearing, toxic-appearing or diaphoretic. HENT: Head: Normocephalic and atraumatic. Right Ear: External ear normal. Left Ear: External ear normal. Nose: Nose normal. No congestion or rhinorrhea. Mouth/Throat: Mouth: Mucous membranes are moist. Pharynx: No oropharyngeal exudate or posterior oropharyngeal erythema. Eyes: General: No scleral icterus. Right eye: No discharge. Left eye: No discharge. Conjunctiva/sclera: Conjunctivae normal. Cardiovascular: Rate and Rhythm: Normal rate and regular rhythm. Heart sounds: Normal heart sounds. Pulmonary: Effort: Pulmonary effort is normal. Breath sounds: Normal breath sounds. Abdominal: General: There is no distension. Palpations: Abdomen is soft. There is no mass. Tenderness: There is abdominal tenderness. There is no guarding or rebound. Hernia: No hernia is present. Comments: Pain with palpation to the lower abdominal area without rebound rigidity or guarding Genitourinary: Vagina: No vaginal discharge. Comments: Cervix closed. No cervical motion tenderness. No adnexal tenderness or masses. No discharge. No cervical friability. Scant blood in the vaginal vault without clots or brisk bleeding Musculoskeletal: General: Normal range of motion. Cervical back: Normal range of mot (more content not included)... Normal [facility] Lipase SerPl-cCncon 02-02-20 22 Lipase [Catalytic activity/Vol] 50 U/L Normal 16-[address] [facility] Comment on above: Order Comment: Speci men Type: BLOOD SPECIMENOrdering Facility: [facility] Address: [address] [place] [address] Performed By: #### 2 4323-8, 58376-8, 0-3, HCGED ####OTTER LABORATORYCLIA [id number] [place] [address] [place] Magnesium SerPl-mCncon 02-01 Magnesium [Mass/Vol] 2.2 mg/dL Normal 1.7-2.3 [facility] Comment on above: Order Comment: Speci men Type: BLOOD SPECIMENOrdering Facility: [facility] Address: [address] [place] [address] Performed By: #### 2 4323-8, 21562-5, 3040-3, HCGED ####OTTER LABORATORYCLIA [id number] [place] [address] [place] T VAGINALIS AMPLIFICATIONon 02-01-2022 T. vaginalis DNA ALLISON+probe Ql (Unsp spec) Negative Normal Negative for Trichomonas vaginalis by amplification [facility] Comment on above: Order Comment: Speci men Type: SWABOrdering Facility: [facility] Address: [address] [place] [address] Performed By: #### 3 6902-5, TRVAMP ####[facility] LABCLIA [id number] [facility] AVENUEDES[facility] [id number] [place] [address] URINALYSIS, REFLEX MICROSCOP ICon 02-01-2022 Bacteria LM.HPF (Urine sed) [#/Area] Few Abnormal None Seen [facility] Comment on above: Order Comment: Speci men Type: URINE SPECIMENOrdering Facility: [facility] Address: [address] [place] [address] Performed By: #### L [id number] ####VILLA LABORATORYCLIA [id number] [address] Bilirubin Ql (U) Negative Normal Negative [facility] Comment on above: Order Comment: Speci men Type: URINE SPECIMENOrdering Facility: [facility] Address: [address] [place] [address] Performed By: #### L [id number] ####VILLA LABORATORYCLIA [id number] [address] Clarity (Unsp spec) Slightly Cloudy Abnormal Clear [facility] Comment on above: Order Comment: Speci men Type: URINE SPECIMENOrdering Facility: [facility] Address: [address] [place] [address] Performed By: #### L [id number] ####VILLA LABORATORYCLIA [id number] [address] Color (U) Yellow Normal Yellow [facility] Comment on above: Order Comment: Speci men Type: URINE SPECIMENOrdering Facility: [facility] Address: [address] [place] [address] Result Comment: PINK COLORED Performed By: #### L [id number] ####VILLA LABORATORYCLIA [id number] [address] Epithelial cells LM.HPF (Urine sed) [#/Area] Few Normal [facility] Comment on above: Order Comment: Speci men Type: URINE SPECIMENOrdering Facility: [facility] Address: [address] [place] [address] Performed By: #### L [id number] ####VILLA LABORATORYCLIA [id number] [place] [address] [place] [facility] [place] Glucose Test strip (U) [Mass/Vol] Negative Normal Negative [facility] Comment on above: Order Comment: Speci men Type: URINE SPECIMENOrdering Facility: [facility] Address: [address] [place] [address] Performed By: #### L [id number] ####VILLA LABORATORYCLIA [id number] [address] STATES [facility] Hemoglobin Ql (U) 3+ Abnormal Negative [facility] Comment on above: Order Comment: Speci men Type: URINE SPECIMENOrdering Facility: [facility] Address: [address] [place] [address] Performed By: #### L [id number] ####VILLA LABORATORYCLIA [id number] [address] STATES [facility] Ketones Ql (U) Negative Normal Negative [facility] Comment on above: Order Comment: Speci men Type: URINE SPECIMENOrdering Facility: [facility] Address: [address] [place] [address] Performed By: #### L [id number] ####VILLA LABORATORYCLIA [id number] [address] Leukocyte esterase Test strip Ql (U) Trace Abnormal Negative [facility] Comment on above: Order Comment: Speci men Type: URINE SPECIMENOrdering Facility: [facility] Address: [address] [place] [address] Performed By: #### L [id number] ####VILLA LABORATORYCLIA [id number] [place] [address] [place] Nitrite Ql (U) Negative Normal Negative [facility] Comment on above: Order Comment: Speci men Type: URINE SPECIMENOrdering Facility: [facility] Address: [address] [place] [address] Performed By: #### L [id number] ####VILLA LABORATORYCLIA [id number] [address] [place] pH (U) 6.5 [pH] Normal 5.0-8.[address] [facility] Comment on above: Order Comment: Speci men Type: URINE SPECIMENOrdering Facility: [facility] Address: [address] [place] [address] Performed By: #### L [id number] ####OTTER LABORATORYCLIA [id number] [place] [address] [place] Protein (U) [Mass/Vol] Normal [facility] Comment on above: Order Comment: Speci men Type: URINE SPECIMENOrdering Facility: [facility] Address: [address] [place] [address] Result Comment: Visi ble blood causes falsely elevated results for analyte Protein. Due to this limitation, Protein will not be reported for patients whose urine contains visible blood. Performed By: #### L [id number] ####VILLA LABORATORYCLIA [id number] [place] [address] [place] RBC LM.HPF (Urine sed) [#/Area] 11-25 /HPF Abnormal 0-3 /HPF [facility] Comment on above: Order Comment: Speci men Type: URINE SPECIMENOrdering Facility: [facility] Address: [address] [place] [address] Performed By: #### L [id number] ####VILLA LABORATORYCLIA [id number] [place] [address] [place] Specific gravity (U) [Rel density] <=1.005 Low 1.005-1.[address] [facility] Comment on above: Order Comment: Speci men Type: URINE SPECIMENOrdering Facility: [facility] Address: [address] [place] [address] Performed By: #### L [id number] ####VILLA LABORATORYCLIA [id number] [address] [place] Urobilinogen Ql (U) 0.2 EU/dL Normal 0.2-1.0 EU/dL [facility] Comment on above: Order Comment: Speci men Type: URINE SPECIMENOrdering Facility: [facility] Address: [address] [place] [address] Performed By: #### L [id number] ####OTTER LABORATORYCLIA [id number] [address] STATES [facility] WBC LM.HPF (Urine sed) [#/Area] 6-10 /HPF Abnormal 0-5 /HPF [facility] Comment on above: Order Comment: Speci men Type: URINE SPECIMENOrdering Facility: [facility] Address: [address] [place] [address] Performed By: #### L [id number] ####[facility] DAYTONCLIA [id number] [address] US DOPPLER COMPLETEon 2021 US DOPPLER COMPLETE * * *Final Report* * * DATE OF EXAM: Feb 01 2022 12:44PM TERELL 1033 - US DOPPLER COMPLETE / PROCEDURE REASON: Ovarian torsion * * * * Physician Interpretation * * * * EXAMINATION: TRANSVAGINAL AND LIMITED TRANSABDOMINAL PELVIC ULTRASOUND CLINICAL HISTORY: Heavy bleeding x24 hours TECHNIQUE: Sonography of the pelvis was performed by transvaginal and transabdominal (limited) techniques. Images were obtained and stored in a permanent archive. MQ: UFP_1 COMPARISON: None RESULT: Uterus size: 8.1 x 5.1 x 6.6 cm. cm -Orientation: Retroverted -Myometrium: Possible small fibroid involving the posterior mid uterus which measures 0.7 x 0.5 x 0.8 cm. -Endometrial echo complex: 1.1 cm -Cervix: normal Right ovary: 3.3 x 2.0 x 2.1 cm Normal sonographic appearance. Arterial and venous flow is present throughout the ovary on color Doppler imaging with normal spectral waveforms. Left ovary: 3.7 x 1.3 x 2.2 cm Normal sonographic appearance. Arterial and venous flow is present throughout the left ovary on color Doppler imaging with normal spectral waveforms. Pelvis free fluid: Small free fluid is likely physiologic. IMPRESSION: Fibroid uterus. Normal appearance of the ovaries. Purchasing Associate: [facility] Transcribe Date/Time: Feb 01 2022 12:56P Dictated by : WILLIAN GIL MD This examination was interpreted and the report reviewed and electronically signed by: WILLIAN GIL MD on Feb 01 2022 1:05PM EST [id number] [facility] FEMALE PELVIS TRANSABD LT Don 02-01-2022 FEMALE PELVIS TRANSABD LTD * * *Final Report* * * DATE OF EXAM: Feb 01 2022 12:44PM TERELL 1059 - US FEMALE PELVIS TRANSABD LTD / PROCEDURE REASON: Ovarian torsion * * * * Physician Interpretation * * * * EXAMINATION: TRANSVAGINAL AND LIMITED TRANSABDOMINAL PELVIC ULTRASOUND CLINICAL HISTORY: Heavy bleeding x24 hours TECHNIQUE: Sonography of the pelvis was performed by transvaginal and transabdominal (limited) techniques. Images were obtained and stored in a permanent archive. MQ: UFP_1 COMPARISON: None RESULT: Uterus size: 8.1 x 5.1 x 6.6 cm. cm -Orientation: Retroverted -Myometrium: Possible small fibroid involving the posterior mid uterus which measures 0.7 x 0.5 x 0.8 cm. -Endometrial echo complex: 1.1 cm -Cervix: normal Right ovary: 3.3 x 2.0 x 2.1 cm Normal sonographic appearance. Arterial and venous flow is present throughout the ovary on color Doppler imaging with normal spectral waveforms. Left ovary: 3.7 x 1.3 x 2.2 cm Normal sonographic appearance. Arterial and venous flow is present throughout the left ovary on color Doppler imaging with normal spectral waveforms. Pelvis free fluid: Small free fluid is likely physiologic. IMPRESSION: Fibroid uterus. Normal appearance of the ovaries. Purchasing Associate: [facility] Transcribe Date/Time: Feb 01 2022 12:56P Dictated by : WILLIAN GIL MD This examination was interpreted and the report reviewed and electronically signed by: WILLIAN GIL MD on Feb 01 2022 1:05PM EST [id number] [facility] FEMALE PELVIS TRANSVAGon 02-01-2022 FEMALE PELVIS TRANSVAG * * *Final Report* * * DATE OF EXAM: Feb 01 2022 12:44PM TERELL 1060 - US FEMALE PELVIS TRANSVAG / PROCEDURE REASON: Ovarian torsion * * * * Physician Interpretation * * * * EXAMINATION: TRANSVAGINAL AND LIMITED TRANSABDOMINAL PELVIC ULTRASOUND CLINICAL HISTORY: Heavy bleeding x24 hours TECHNIQUE: Sonography of the pelvis was performed by transvaginal and transabdominal (limited) techniques. Images were obtained and stored in a permanent archive. MQ: UFP_1 COMPARISON: None RESULT: Uterus size: 8.1 x 5.1 x 6.6 cm. cm -Orientation: Retroverted -Myometrium: Possible small fibroid involving the posterior mid uterus which measures 0.7 x 0.5 x 0.8 cm. -Endometrial echo complex: 1.1 cm -Cervix: normal Right ovary: 3.3 x 2.0 x 2.1 cm Normal sonographic appearance. Arterial and venous flow is present throughout the ovary on color Doppler imaging with normal spectral waveforms. Left ovary: 3.7 x 1.3 x 2.2 cm Normal sonographic appearance. Arterial and venous flow is present throughout the left ovary on color Doppler imaging with normal spectral waveforms. Pelvis free fluid: Small free fluid is likely physiologic. IMPRESSION: Fibroid uterus. Normal appearance of the ovaries. Purchasing Associate: [facility] Transcribe Date/Time: Feb 01 2022 12:56P Dictated by : WILLIAN GIL MD This examination was interpreted and the report reviewed and electronically signed by: WILLIAN GIL MD on Feb 01 2022 1:05PM EST [id number] [facility] 12-27-2021 [facility] HNO ID: [id number] Author: DONA Del Valle Service: Radiology Author Type: Technologist Type: [facility] Filed: 12/27/2021 12:47 AM Note Text: Radiology Service Progress Note DATE OF SERVICE: December 27, 2021 TIME: 12:47 AM PATIENT IDENTITY VERIFICATION COMPLETED USING TWO (2) STANDARD IDENTIFIERS: Name and Date of confirmed by patient verbally and Name and Date of confirmed by identification band. FALL SCREENING: Has the patient had 2 falls in the last year or 1 fall with injury or currently using an Ambulatory Assistive Device (Walker, Cane, Wheelchair, Crutches, etc.)? Emergency Room Patient: Screened in ED PATIENT GENDER DATA: Female. status: : No status: NO. PATIENT RELEVANT IMPLANT DATA REVIEWED: Not Applicable ALLERGIES: Reviewed and unchanged CONTRAST ALLERGY: NO. EXAM: CT -CONTRAST INDUCED NEPHROPATHY RISK FACTORS: Not applicable CREATININE: Creatinine Date Value Ref Range Status 12/26/2021 0.66 0.58 - 0.96 mg/dL Final 01/06/2018 0.55 (L) 0.58 - 0.96 mg/dL Final Estimated Glomerular Filtration Rate Date Value Ref Range Status 12/26/2021 124 >=60 mL/min/1.73m? Final Comment: Estimated Glomerular Filtration Rate (eGFR) is calculated using the 2020 CKD-EPI creatinine equation. This equation utilizes serum creatinine, sex, and age as parameters. The creatinine assay has traceable calibration to isotope dilution-mass spectrometry. Refer to KDIGO guidelines for clinical interpretation. In patients with unstable renal function, e.g. those with acute kidney injury, the eGFR may not accurately reflect actual GFR. eGFR- Date Value Ref Range Status 01/06/2018 >60 Final P.O.C.T. RESULTS: POC done: Yes, See Lab Tab December 27, 2021 TREATMENT: N/A PERIPHERAL IV DATA: Inpatient - refer to LDA documentation RADIOLOGY DEPARTMENT: CT; Exam(s) Completed: Abdomen/Pelvis SIGNATURE: DONA Del Valle PATIENT NAME: Socorro Gonsales DATE: December 27, 2021 TIME: 12:47 AM SCAN W/O PREG TEST PER DR FOLREZ, PT HAD TUBAL Normal [facility] CBC W Auto Differential pane l (Bld)on 12-27-2021 Basophils (Bld) [#/Vol] 0.04 10*3/uL Normal <0.[address] [facility] Comment on above: Order Comment: Speci men Type: BLOOD SPECIMENOrdering Facility: [facility] Address: [address] [place] [address] Performed By: #### 5 7021-8 ####OTTER LABORATORYCLIA [id number] [place] [address] [place] Basophils/100 WBC (Bld) 0.5 % Normal [facility] Comment on above: Order Comment: Speci men Type: BLOOD SPECIMENOrdering Facility: [facility] Address: [address] [place] [address] Performed By: #### 5 7021-8 ####VILLA LABORATORYCLIA [id number] [address] Differential cell count method Nom (Bld) Auto Normal [facility] Comment on above: Order Comment: Speci men Type: BLOOD SPECIMENOrdering Facility: [facility] Address: [address] [place] [address] Performed By: #### 5 7021-8 ####VILLA LABORATORYCLIA [id number] [place] [address] [place] Eosinophils (Bld) [#/Vol] 0.23 10*3/uL Normal <0.[address] [facility] Comment on above: Order Comment: Speci men Type: BLOOD SPECIMENOrdering Facility: [facility] Address: [address] [place] [address] Performed By: #### 5 7021-8 ####VILLA LABORATORYCLIA [id number] [address] Eosinophils/100 WBC (Bld) 3.1 % Normal [facility] Comment on above: Order Comment: Speci men Type: BLOOD SPECIMENOrdering Facility: [facility] Address: [address] [place] [address] Performed By: #### 5 7021-8 ####VILLA LABORATORYCLIA [id number] [address] [place] Erythrocyte distribution width (RBC) [Ratio] 14.2 % Normal 11.5-15.[address] [facility] Comment on above: Order Comment: Speci men Type: BLOOD SPECIMENOrdering Facility: [facility] Address: [address] [place] [address] Performed By: #### 5 7021-8 ####VILLA LABORATORYCLIA [id number] [address] Hematocrit (Bld) [Volume fraction] 35.9 % Low 36.0-46.[address] [facility] Comment on above: Order Comment: Speci men Type: BLOOD SPECIMENOrdering Facility: [facility] Address: [address] [place] [address] Performed By: #### 5 7021-8 ####VILLA LABORATORYCLIA [id number] [address] Hemoglobin (Bld) [Mass/Vol] 11.4 g/dL Low 11.5-15.[address] [facility] Comment on above: Order Comment: Speci men Type: BLOOD SPECIMENOrdering Facility: [facility] Address: [address] [place] [address] Performed By: #### 5 7021-8 ####VILLA LABORATORYCLIA [id number] [address] IMMATURE GRAN % 0.3 % Normal [facility] Comment on above: Order Comment: Speci men Type: BLOOD SPECIMENOrdering Facility: [facility] Address: [address] [place] [address] Performed By: #### 5 7021-8 ####VILLA LABORATORYCLIA [id number] [address] IMMATURE GRAN ABS <0.03 Normal <0.[address] [facility] Comment on above: Order Comment: Speci men Type: BLOOD SPECIMENOrdering Facility: [facility] Address: [address] [place] [address] Performed By: #### 5 7021-8 ####VILLA LABORATORYCLIA [id number] [address] [place] Lymphocytes (Bld) [#/Vol] 3.01 10*3/uL Normal 1.00-4.[address] [facility] Comment on above: Order Comment: Speci men Type: BLOOD SPECIMENOrdering Facility: [facility] Address: [address] [place] [address] Performed By: #### 5 7021-8 ####VILLA LABORATORYCLIA [id number] [address] Lymphocytes/100 WBC (Bld) 41.2 % Normal [facility] Comment on above: Order Comment: Speci men Type: BLOOD SPECIMENOrdering Facility: [facility] Address: [address] [place] [address] Performed By: #### 5 7021-8 ####VILLA LABORATORYCLIA [id number] [address] MCH (RBC) [Entitic mass] 27.1 pg Normal 26.0-34.[address] [facility] Comment on above: Order Comment: Speci men Type: BLOOD SPECIMENOrdering Facility: [facility] Address: [address] [place] [address] Performed By: #### 5 7021-8 ####VILLA LABORATORYCLIA [id number] [address] MCHC (RBC) [Mass/Vol] 31.8 g/dL Normal 30.5-36.0 [facility] Comment on above: Order Comment: Speci men Type: BLOOD SPECIMENOrdering Facility: [facility] Address: [address] [place] [address] Performed By: #### 5 7021-8 ####VILLA LABORATORYCLIA [id number] [address] MCV (RBC) [Entitic vol] 85.5 fL Normal 80.0-100.[address] [facility] Comment on above: Order Comment: Speci men Type: BLOOD SPECIMENOrdering Facility: [facility] Address: [address] [place] [address] Performed By: #### 5 7021-8 ####VILLA LABORATORYCLIA [id number] [address] Monocytes (Bld) [#/Vol] 0.37 10*3/uL Normal <0.[address] [facility] Comment on above: Order Comment: Speci men Type: BLOOD SPECIMENOrdering Facility: [facility] Address: [address] [place] [address] Performed By: #### 5 7021-8 ####VILLA LABORATORYCLIA [id number] [address] Monocytes/100 WBC (Bld) 5.1 % Normal [facility] Comment on above: Order Comment: Speci men Type: BLOOD SPECIMENOrdering Facility: [facility] Address: [address] [place] [address] Performed By: #### 5 7021-8 ####VILLA LABORATORYCLIA [id number] [place] [address] [place] Neutrophils (Bld) [#/Vol] 3.64 10*3/uL Normal 1.45-7.[address] [facility] Comment on above: Order Comment: Speci men Type: BLOOD SPECIMENOrdering Facility: [facility] Address: [address] [place] [address] Performed By: #### 5 7021-8 ####VILLA LABORATORYCLIA [id number] [address] Neutrophils/100 WBC (Bld) 49.8 % Normal [facility] Comment on above: Order Comment: Speci men Type: BLOOD SPECIMENOrdering Facility: [facility] Address: [address] [place] [address] Performed By: #### 5 7021-8 ####VILLA LABORATORYCLIA [id number] [address] [place] Nucleated RBC (Bld) [#/Vol] 10*3/uL Normal <0.[address] [facility] Comment on above: Order Comment: Speci men Type: BLOOD SPECIMENOrdering Facility: [facility] Address: [address] [place] [address] Performed By: #### 5 7021-8 ####VILLA LABORATORYCLIA [id number] [address] [place] Nucleated RBC/100 WBC (Bld) [Ratio] 0.0 /100 WBC Normal [facility] Comment on above: Order Comment: Speci men Type: BLOOD SPECIMENOrdering Facility: [facility] Address: [address] [place] [address] Performed By: #### 5 7021-8 ####VILLA LABORATORYCLIA [id number] [address] [place] Platelet mean volume (Bld) [Entitic vol] 10.1 fL Normal 9.0-12.[address] [facility] Comment on above: Order Comment: Speci men Type: BLOOD SPECIMENOrdering Facility: [facility] Address: [address] [place] [address] Performed By: #### 5 7021-8 ####VILLA LABORATORYCLIA [id number] [place] [address] [place] Platelets (Bld) [#/Vol] 274 10*3/uL Normal 150-[address] [facility] Comment on above: Order Comment: Speci men Type: BLOOD SPECIMENOrdering Facility: [facility] Address: [address] [place] [address] Performed By: #### 5 7021-8 ####VILLA LABORATORYCLIA [id number] [address] [place] RBC (Bld) [#/Vol] 4.20 10*6/uL Normal 3.90-5.20 [facility] Comment on above: Order Comment: Speci men Type: BLOOD SPECIMENOrdering Facility: [facility] Address: [address] [place] [address] Performed By: #### 5 7021-8 ####VILLA LABORATORYCLIA [id number] [address] [place] WBC (Bld) [#/Vol] 7.31 10*3/uL Normal 3.70-11.00 [facility] Comment on above: Order Comment: Speci men Type: BLOOD SPECIMENOrdering Facility: [facility] Address: [address] [place], [place] [id number] Performed By: #### 5 7021-8 ####VILLA LABORATORYCLIA [id number] [address] [place] CT ABD/PEL W IVCONon 022 CT ABD/PEL W IVCON * * *Final Report* * * DATE OF EXAM: Dec 27 2021 12:35AM [facility] [place] 0530 - CT ABD/PEL W IVCON / PROCEDURE REASON: Abdominal pain, acute, nonlocalized * * * * Physician Interpretation * * * * EXAMINATION: CT ABDOMEN AND PELVIS WITH IV CONTRAST CLINICAL HISTORY: Abdominal pain, acute, nonlocalized TECHNIQUE: CT of the abdomen and pelvis was performed using standard technique, scanning from just above the dome of the diaphragm to the symphysis pubis. MQ: CTAP_3 Contrast: IV: 100 ml of Omnipaque 300 : ml of CT Radiation dose: Integrated Dose-length product (DLP) for this visit = 370 mGy*cm. CT Dose Reduction Employed: mAs-kVp adjusted based on patient size-age COMPARISON: None. RESULT: Liver: No mass. Biliary: No bile duct dilation. Cholecystectomy Spleen: No mass. No splenomegaly. Pancreas: No mass or duct dilation. Adrenals: No mass. Kidneys: No mass, calculus or hydronephrosis. GI tract: No dilation or wall thickening. Lymph nodes: No abdominal or pelvic lymphadenopathy. Mesentery/Peritoneum: No ascites or mass. Retroperitoneum: No mass. Vasculature: Normal Pelvis: Enlarged retroverted uterus 6.6 cm AP, 10.2 cm craniocaudal, 7 cm transverse dimensions Bones/Soft Tissues: Normal Lower thorax: Normal Sewer Cleaner (topogram) images: No additional findings. IMPRESSION: Enlarged uterus can be better evaluated with ultrasound as clinically warranted. Purchasing Associate: CIP[employer] Transcribe Date/Time: Dec 27 2021 12:56A Dictated by : JEFFREY CORNELIUS MD This examination was interpreted and the report reviewed and electronically signed by: JEFFREY CORNELIUS MD on Dec 27 2021 12:59AM EST [id number] Normal [facility] Comprehensive metabolic 2000 panelon 12-27-2021 Albumin [Mass/Vol] 4.7 g/dL Normal 3.9-4.[address] [facility] Comment on above: Order Comment: Speci men Type: BLOOD SPECIMENOrdering Facility: [facility] Address: [address] [place] [address] Performed By: #### 3 040-3, 28085-7 ####OTTER LABORATORYCLIA [id number] [place] [address] [place] ALP [Catalytic activity/Vol] 58 U/L Normal 34-[address] [facility] Comment on above: Order Comment: Speci men Type: BLOOD SPECIMENOrdering Facility: [facility] Address: [address] [address] Performed By: #### 3 -3, 45658-4 ####VILLA LABORATORYCLIA [id number] [place] [address] [place] ALT [Catalytic activity/Vol] 10 U/L Normal 7-[address] [facility] Comment on above: Order Comment: Speci men Type: BLOOD SPECIMENOrdering Facility: [facility] Address: [address] [place] [address] Performed By: #### 3 -3, 92791-3 ####VILLA LABORATORYCLIA [id number] [place] [address] [place] Anion gap [Moles/Vol] 11 mmol/L Normal 9-18 [facility] Comment on above: Order Comment: Speci men Type: BLOOD SPECIMENOrdering Facility: [facility] Address: [address] [place] [address] Performed By: #### 3 3, 82835-8 ####VILLA LABORATORYCLIA [id number] [address] [place] AST [Catalytic activity/Vol] 15 U/L Normal 13-[address] [facility] Comment on above: Order Comment: Speci men Type: BLOOD SPECIMENOrdering Facility: [facility] Address: [address] [place] [address] Performed By: #### 3 -3, 77250-2 ####VILLA LABORATORYCLIA [id number] [place] [address] [place] Bilirubin [Mass/Vol] 0.2 mg/dL Normal 0.2-1.3 [facility] [facility] Comment on above: Order Comment: Speci men Type: BLOOD SPECIMENOrdering Facility: [facility] Address: [address] [place] [address] Performed By: #### 3 040-3, 11954-4 ####VILLA LABORATORYCLIA [id number] [place] [address] [place] Calcium [Mass/Vol] 9.3 mg/dL Normal 8.5-10.[address] [facility] Comment on above: Order Comment: Speci men Type: BLOOD SPECIMENOrdering Facility: [facility] Address: [address] [place] [address] [place] [address] Performed By: #### 3 040-3, 30842-8 ####VILLA LABORATORYCLIA [id number] [place] [address] [place] Chloride [Moles/Vol] 108 mmol/L High 97-105 [facility] Comment on above: Order Comment: Speci men Type: BLOOD SPECIMENOrdering Facility: [facility] Address: [address] [place] [address] Performed By: #### 3 040-3, 45199-5 ####VILLA LABORATORYCLIA [id number] [place] [address] [place] CO2 [Moles/Vol] 21 mmol/L Low 22-[address] [facility] Comment on above: Order Comment: Speci men Type: BLOOD SPECIMENOrdering Facility: [facility] Address: [address] [place] [address] Performed By: #### 3 040-3, 21362-7 ####VILLA LABORATORYCLIA [id number] [place] [address] [place] Creatinine [Mass/Vol] 0.66 mg/dL Normal 0.58-0.96 [facility] Comment on above: Order Comment: Speci men Type: BLOOD SPECIMENOrdering Facility: [facility] Address: [address] [place] [address] Performed By: #### 3 040-3, 89300-0 ####VILLA LABORATORYCLIA [id number] [place] [address] [place] ESTIMATED GLOMERULAR FILTRATION RATE 124 mL/min/1.73m??? Normal >=[address] [facility] Comment on above: Order Comment: Speci men Type: BLOOD SPECIMENOrdering Facility: [facility] Address: [address] [place] [address] Result Comment: Karla mated Glomerular Filtration Rate (eGFR) is calculated using the 2020 CKD-EPI creatinine equation. This equation utilizes serum creatinine, sex, and age as parameters. The creatinine assay has traceable calibration to isotope dilution-mass spectrometry. Refer to KDIGO guidelines for clinical interpretation. In patients with unstable renal function, e.g. those with acute kidney injury, the eGFR may not accurately reflect actual GFR. Performed By: #### 3 040-3, 07229-3 ####VILLA LABORATORYCLIA [id number] [place] [address] [place] Glucose [Mass/Vol] 95 mg/dL Normal 74-[address] [facility] Comment on above: Order Comment: Aaron sands Type: BLOOD SPECIMENOrdering Facility: [facility] Address: [address] [place], [place] [id number] Result Comment: The [place] Diabetes Association (ADA) provides guidance for cutoff values for fasting glucose and random glucose. The ADA defines fasting as no caloric intake for at least 8 hours. Fasting plasma glucose results between 100 to 125 mg/dL indicate increased risk for diabetes (prediabetes). Fasting plasma glucose results greater than or equal to 126 mg/dL meet the criteria for diagnosis of diabetes. In the absence of unequivocal hyperglycemia, results should be confirmed by repeat testing. In a patient with classic symptoms of hyperglycemia or hyperglycemic crisis, random plasma glucose results greater than or equal to 200 mg/dL meet the criteria for diagnosis of diabetes. Reference: Standards of Medical Care in Diabetes 2016, [place] Diabetes Association. Diabetes Care. 2016.39(Suppl 1). Performed By: #### 3 040-3, 60412-8 ####VILLA LABORATORYCLIA [id number] [place] [id number] [place] Potassium [Moles/Vol] 3.7 mmol/L Normal 3.7-5.1 [facility] Comment on above: Order Comment: Aaron sands Type: BLOOD SPECIMENOrdering Facility: [facility] Address: [address] [place] [id number] Performed By: #### 3 040-3, 54230-2 ####VILLA LABORATORYCLIA [id number] [place] [address] [place] Protein [Mass/Vol] 7.6 g/dL Normal 6.3-8.[address] [facility] Comment on above: Order Comment: Aaron men Type: BLOOD SPECIMENOrdering Facility: [facility] Address: [address] [place] [address] Performed By: #### 3 040-3, 37899-5 ####VILLA LABORATORYCLIA [id number] [address] [place] Sodium [Moles/Vol] 140 mmol/L Normal 136-[address] [facility] Comment on above: Order Comment: Speci men Type: BLOOD SPECIMENOrdering Facility: [facility] Address: [address] [place] [address] Performed By: #### 3 040-3, 74683-0 ####VILLA LABORATORYCLIA [id number] [address] [place] Urea nitrogen [Mass/Vol] 6 mg/dL Low 7-[address] [facility] Comment on above: Order Comment: Speci men Type: BLOOD SPECIMENOrdering Facility: [facility] Address: [address] [place] [address] Performed By: #### 3 040-3, 27872-0 ####VILLA LABORATORYCLIA [id number] [address] [place] ED NOTEon 12-27-2021 ED NOTE HNO ID: [id number] Author: Cailin Pappas RN Service: ? Author Type: Registered Nurse Type: ED Notes Filed: 12/29/2021 11:40 AM Note Text: ..Emergency Services: ED Call Back Questionnaire SERVICE DATE: 12/26/2021 Are you feeling better? Still having some pain Any questions about discharge instructions and follow-up care? No Were you able to make a follow up appointment? Yes, has calls to OBGYN and Surgeon. Do you have any further questions? No SIGNATURE: Cailin Pappas RN PATIENT NAME: Socorro Gonsales DATE: December 29, 2021 TIME: 11:39 AM [facility] ED NOTE HNO ID: [id number] Author: Angel Luis Benedict RN Service: Nursing Author Type: Registered Nurse Type: ED Notes Filed: 12/27/2021 3:12 AM Note Text: Pt stated she had a ride waiting for her in the lobby. [facility] ED NOTE HNO ID: [id number] Author: Melissa Lozoya RN Service: ? Author Type: Registered Nurse Type: ED Notes Filed: 12/26/2021 10:11 PM Note Text: Pt to ED with c/c abd pain that began today pt states nausea but denies V/D. Pt denies CP or SOB no urinary complaints at this time. [facility] ED PROV NOTEon 12-27-2021 ED PROV NOTE HNO ID: [id number] Author: Saud Florez MD Service: Emergency Medicine Author Type: Physician Type: ED Provider Notes Filed: 12/27/2021 3:01 AM Note Text: ED Provider Note Patient Name: Socorro Gonsales : 1995 SERVICE DATE: 12/26/21 History Patient presents with: Abdominal Pain Nausea Patient complains of hypogastric and epigastric pain nausea. She has had no constipation or diarrhea. She has a history of obstruction secondary to multiple adhesions status post cholecystectomy appendectomy bilateral tubal ligation, and lysis of adhesions. PAST MEDICAL HISTORY Diagnosis Date - Anemia - anxiety - Asthma PAST SURGICAL HISTORY Procedure Laterality Date - LAPAROSCOPY W/RMVL ADNEXAL STRUCTURES Bilateral 04/28/2018 l/s bilateral salpingectomy - PAST SURGICAL HISTORY OF wisdom teeth - PAST SURGICAL HISTORY OF 03/2020 exploratory laparoscopy FAMILY HISTORY Problem Relation Age of Onset - Heart Mother - Seizures Mother - Stroke Mother - Multiple Sclerosis Mother - Psychiatry Sister Manic Depression - Hypertension Maternal Grandfather - Breast Cancer Maternal Aunt - Hypertension Maternal Uncle Social History Tobacco Use - Smoking status: Former Smoker Years: 3.00 - Smokeless tobacco: Never Used Substance and Sexual Activity - Alcohol use: Yes Comment: rarely - Drug use: No - Sexual activity: Yes Partners: Male control/protection: Tubal Ligation Comment: bilateral salpingectomy 2018 ALLERGIES Allergen Reactions - Gabapentin Other: See Comments, Unknown [place] like Heart was racing - Latex Rash, Itching - Seasonal Allergies Other: See Comments nasal congestion - Zofran [Ondansetron] Itching Itching and redness in arm when given Zofran IV Review of Systems Constitutional: Negative. HENT: Negative. Eyes: Negative. Respiratory: Negative. Cardiovascular: Negative. Gastrointestinal: Positive for abdominal pain and nausea. Endocrine: Negative. Genitourinary: Negative. Musculoskeletal: Negative. Allergic/Immunologic: Negative. Neurological: Negative. Hematological: Negative. Psychiatric/Behavioral: Negative. Physical Exam Vitals [12/26/21 2208] BP Pulse Temp Temp src Resp SpO2 Weight Height 120/72 88 36.9 ?C (98.5 ?F) Temporal 18 100 % 70.3 kg (155 lb) 1.651 m (5' 5) Physical Exam Vitals and nursing note reviewed. Constitutional: Appearance: Normal appearance. HENT: Head: Normocephalic. Right Ear: External ear normal. Left Ear: External ear normal. Nose: Nose normal. Mouth/Throat: Mouth: Mucous membranes are moist. Eyes: Extraocular Movements: Extraocular movements intact. Conjunctiva/sclera: Conjunctivae normal. Cardiovascular: Rate and Rhythm: Normal rate and regular rhythm. Pulses: Normal pulses. Heart sounds: Normal heart sounds. Pulmonary: Effort: Pulmonary effort is normal. Breath sounds: Normal breath sounds. Abdominal: General: Abdomen is flat. There is no distension. Tenderness: There is abdominal tenderness. There is no guarding or rebound. Comments: Mild hypogastric and epigastric tenderness Musculoskeletal: General: Normal range of motion. Cervical back: Normal range of motion and neck supple. Skin: General: Skin is warm and dry. Capillary Refill: Capillary refill takes less than 2 seconds. Neurological: General: No focal deficit present. Mental Status: She is alert and oriented to person, place, and time. Psychiatric: Mood and Affect: Mood normal. Behavior: Behavior normal. Thought Content: Thought content normal. Judgment: Judgment normal. Diagnostic Testing ED Labs Ordered and Reviewed COMP METABOLIC PANEL - Abnormal; Notable for the following components: Result Value Ref Range BUN 6 (*) 7 - 21 mg/dL Chloride 108 (*) 97 - 105 mmol/L CO2 21 (*) 22 - 30 mmol/L All other components within normal limits CBC + DIFF - Abnormal; Notable for the following components: Hemoglobin 11.4 (*) 11.5 - 15.5 g/dL Hematocrit 35.9 (*) 36.0 - 46.0 % All other components within normal limits Narrative: This is an appended report. These results have been appended to a previously verified report. URINALYSIS, REFLEX MICROSCOPIC - Abnormal; Notable for the following components: Specific [place], Ur <=1.005 (*) 1.005 - 1.030 All other components within normal limits LIPASE BLD - Normal Procedures ED Course / Clinical Impression ..Course: Vital signs were reviewed. Triage records were reviewed. Medical records were reviewed. Nursing notes were reviewed and incorporated. Intravenous fluids were given. The following medications were administered: Dilaudid, Zofran Labs reviewed and interpreted as .. Labs Reviewed COMP METABOLIC PANEL - Abnormal; Notable for the following components: Result Value BUN 6 (*) Chloride 108 (*) CO2 21 (*) All other components within normal limits CBC + DIFF - Ab (more content not included)... Normal [facility] Lipase SerPl-cCncon 12-28-19 22 Lipase [Catalytic activity/Vol] 38 U/L Normal - [facility] Comment on above: Order Comment: Speci men Type: BLOOD SPECIMENOrdering Facility: [facility] Address: [address] [place] [address] Performed By: #### 3 040-3, 50779-6 ####OTTER LABORATORYCLIA [id number] [address] [place] URINALYSIS, REFLEX MICROSCOP ICon 12-27-2021 Bilirubin Ql (U) Negative Normal Negative [facility] Comment on above: Order Comment: Speci men Type: URINE SPECIMENOrdering Facility: [facility] Address: [address] [place] [address] Performed By: #### L [id number] ####OTTER LABORATORYCLIA [id number] [address] [place] Clarity (Unsp spec) Clear Normal Clear [facility] Comment on above: Order Comment: Speci men Type: URINE SPECIMENOrdering Facility: [facility] Address: [address] [place] [address] Performed By: #### L [id number] ####VILLA LABORATORYCLIA [id number] [address] Color (U) Yellow Normal Yellow [facility] Comment on above: Order Comment: Speci men Type: URINE SPECIMENOrdering Facility: [facility] Address: [address] [place] [address] Performed By: #### L [id number] ####VILLA LABORATORYCLIA [id number] [address] [place] Glucose Test strip (U) [Mass/Vol] Negative Normal Negative [facility] Comment on above: Order Comment: Speci men Type: URINE SPECIMENOrdering Facility: [facility] Address: [address] [place] [address] Performed By: #### L [id number] ####VILLA LABORATORYCLIA [id number] [address] [place] Hemoglobin Ql (U) Negative Normal Negative [facility] Comment on above: Order Comment: Speci men Type: URINE SPECIMENOrdering Facility: [facility] Address: [address] [place] [address] Performed By: #### L [id number] ####VILLA LABORATORYCLIA [id number] [address] STATES [facility] Ketones Ql (U) Negative Normal Negative [facility] Comment on above: Order Comment: Speci men Type: URINE SPECIMENOrdering Facility: [facility] Address: [address] [place] [address] Performed By: #### L [id number] ####VILLA LABORATORYCLIA [id number] [address] Leukocyte esterase Test strip Ql (U) Negative Normal Negative [facility] Comment on above: Order Comment: Speci men Type: URINE SPECIMENOrdering Facility: [facility] Address: [address] [place] [address] Performed By: #### L [id number] ####VILLA LABORATORYCLIA [id number] [address] [place] Nitrite Ql (U) Negative Normal Negative [facility] Comment on above: Order Comment: Speci men Type: URINE SPECIMENOrdering Facility: [facility] Address: [address] [place] [address] Performed By: #### L [id number] ####VILLA LABORATORYCLIA [id number] [address] [place] pH (U) 6.0 [pH] Normal 5.0-8.[address] [facility] Comment on above: Order Comment: Speci men Type: URINE SPECIMENOrdering Facility: [facility] Address: [address] [place] [address] Performed By: #### L [id number] ####VILLA LABORATORYCLIA [id number] [address] Protein (U) [Mass/Vol] Negative Normal Negative [facility] Comment on above: Order Comment: Speci men Type: URINE SPECIMENOrdering Facility: [facility] Address: [address] [place] [address] Performed By: #### L [id number] ####OTTER LABORATORYCLIA [id number] [address] STATES [facility] Specific gravity (U) [Rel density] <=1.005 Low 1.005-1.[address] [facility] Comment on above: Order Comment: Speci men Type: URINE SPECIMENOrdering Facility: [facility] Address: [address] [place] [address] Performed By: #### L [id number] ####OTTER LABORATORYCLIA [id number] [address] Urobilinogen Ql (U) 0.2 EU/dL Normal 0.2-1.0 EU/dL [facility] Comment on above: Order Comment: Speci men Type: URINE SPECIMENOrdering Facility: [facility] Address: [address] [place] [address] Performed By: #### L [id number] ####OTTER LABORATORYCLIA [id number] [place] [address] [place] Basic Metabolic Panel w/ Ref will to MGOrdered By: Palu Wilkerson on 03-27-2021 Anion gap [Moles/Vol] 10 mmol/L 3 - 13 mmol/L [facility] Work Phone: Calcium [Mass/Vol] 9.2 mg/dL 8.4 - 10. 4 mg/dL [facility] Work Phone: Chloride [Moles/Vol] 109 mmol/L High 98 - 10 7 mmol/L [facility] Work Phone: [phone] CO2 [Moles/Vol] 19 mmol/L Low 22 - 30 mmol/L [facility] Work Phone: Creatinine [Mass/Vol] 0.57 mg/dL 0.52 - 1.25 mg/dL [facility] Work Phone: [phone] EGFR IF NonAfrican [place] >90.0 >60 mL/min [facility] Work Phone: Comment on above: KDIGO guidelines pro vide the following GFR categories: Stage GFR(ml/min/1.73 m2) Terms G1 >=90 Normal or high G2 60-89 Mildly decreased* G3a 45-59 Mildly to moderately decreased G3b 30-44 Moderately to severely decreased G4 15-29 Severely decreased G5 <15 Kidney failure *Relative to young adult level. In the absence of evidence of kidney damage, neither GFR category G1 nor G2 fulfill the criteria for CKD. The CKD-EPI equation is validated in individuals 18 years of age and older. Currently the best equation for estimating glomerular filtration rate (GFR) from serum creatinine in children is the Bedside Gupta equation. It is less accurate in patients with extremes of muscle mass, restriction of dietary protein, ingestion of creatine, extra-renal metabolism of creatinine, or treatment with medications that affect renal tubular creatinine secretion. GFR/1.73 sq M.predicted among blacks MDRD (S/P/Bld) [Vol rate/Area] mL/min/{1.73_m2} >60 mL/min [facility] Work Phone: [phone] Glucose [Mass/Vol] 109 mg/dL High 70 - 100 mg/dL [facility] Work Phone: Interpretation and review of laboratory results Abnormal [facility] Work Phone: [phone] Potassium [Moles/Vol] 4.1 mmol/L 3.5 - 5.1 mmol/L [facility] Work Phone: [phone] Sodium [Moles/Vol] 139 mmol/L 135 - 145 mmol/L [facility] Work Phone: [phone] Urea nitrogen (BldV) [Mass/Vol] 5 mg/dL Low 7 - 20 mg/dL [facility] Work Phone: [phone] Test Performed by [facility], [address] [place] [address] [facility] Work Phone: [facility] Work Phone: CBC auto differentialOrdered By: Paul Wilkerson on 03-27-2021 Absolute Baso # 0.0 10*3/uL 0.0 - 0.2 10*3/uL [facility] Work Phone: Absolute Neut # 6.6 10*3/uL 1.8 - 7.0 10*3/uL [facility] Work Phone: Basophils/100 WBC (Bld) 0.3 % 0.0 - 2.0 % [facility] Work Phone: Eosinophils (Bld) [#/Vol] 0.0 10*3/uL 0.0 - 0.5 10*3/uL [facility] Work Phone: 222 Eosinophils/100 WBC (Bld) 0.0 % Low 1.0 - 6.0 % [facility] Work Phone: 222 Granulocytes/100 WBC (Bld) 81.2 % High 40.0 - 80.0 % [facility] Work Phone: Hematocrit (Bld) [Volume fraction] 30.3 % Low 35.0 - 47.0 % [facility] Work Phone: Hemoglobin.gastrointe stinal spec 1 Ql (Stl) 10.0 g/dL Low 11.7 - 16.0 g/dL [facility] Work Phone: Interpretation and review of laboratory results Abnormal [facility] Work Phone: Lymphocytes (Bld) [#/Vol] 1.0 10*3/uL 1.0 - 4.3 10*3/uL [facility] Work Phone: 222 Lymphocytes/100 WBC (Bld) 11.8 % Low 20.0 - 40.0 % [facility] Work Phone: MCH (RBC) [Entitic mass] 26.9 pg 26.0 - 34.0 pg [facility] Work Phone: MCHC (RBC) [Mass/Vol] 32.9 % 32.0 - 36.0 % [facility] Work Phone: [phone] MCV (RBC) [Entitic vol] 81.7 fL 79.0 - 98.0 fL [facility] Work Phone: 222 Monocytes (Bld) [#/Vol] 0.6 10*3/uL 0.0 - 0.8 10*3/uL [facility] Work Phone: 222 Monocytes/100 WBC (Bld) 6.7 % 2.0 - 10.0 % [facility] Work Phone: 222 Platelet distribution width (Bld) [Ratio] 15.6 % High 11.5 - 14.5 % [facility] Work Phone: Platelet mean volume (Bld) [Entitic vol] 7.6 fL 7.4 - 10.4 fL [facility] Work Phone: 222 Platelets (Bld) [#/Vol] 316 10*3/uL 140 - 440 10*3/uL [facility] Work Phone: 222 RBC (Bld) [#/Vol] 3.71 10*6/uL Low 3.80 - 5.2 0 10*6/uL [facility] Work Phone: ) 222 WBC (Bld) [#/Vol] 8.2 10*3/uL 3.6 - 10.7 10*3/uL [facility] Work Phone: 222 Test Performed by [address] [address] [facility] Work Phone: [facility] Work Phone: OPERATIVE REPORTOrdered By: 3m Scanning on 03-26-2021 [facility] Work Phone: , urine POCTOrdered By: Layne Vogel on 03-26-2021 Beta HCG ( test) Ql (U) Negative Negative [facility] Work Phone: [phone] Beta HCG ( test) Ql (U) [id number] [facility] Work Phone: Negative QC Pass/Fail Pass [facility] Work Phone: Positive QC Pass/Fail Pass [facility] Work Phone: [facility] Work Phone: CHRISTOFER [place] 3Ordered By: Layne Vogel on 03-26-2021 [facility] Work Phone: NM GASTRIC EMPTYINGOrdered B y: Naty Moran on 03-04-2021 Patient Name: SOCORRO ORELLANA Nuclear Medicine ACCESSION EXAM DATE/TIME PROCEDURE ORDERING PROVIDER [id number] 03/04/2021 10:25 EDT NM Gastric Emptying JORDANA MROAN BROOKE Study CPT code 16606 Reason For Exam (NM Gastric Emptying Study) Abdominal Pain/Nausea Report SOLID PHASE GASTRIC EMPTYING STUDY CLINICAL INDICATION: Abdominal pain and nausea The patient was given a standard meal of 1.1 millicurie of technetium-99m sulfur colloid prepared with egg. Anterior and posterior images over the abdomen were obtained up to two hours after ingestion. VINCE activity curves over the stomach were then calculated. COMPARISON: None FINDINGS: At one hour, there is 75 percent of original activity within the stomach. At two hours after ingestion, 50 percent of original activity remains within the stomach. Normal at two hours following ingestion is between 19 and 52 percent. IMPRESSION: Borderline abnormally delayed gastric emptying following solid meal. Report Dictated on --- Final --- Dictated: 03/04/2021 11:45 am Dictating Physician: MD REBOLLAR JONATHAN R Signed Date and Time: 03/04/2021 11:45 am Signed by: MD REBOLLAR JONATHAN R Transcribed Date and Time: 03/04/2021 11:45 [facility] Work Phone: [place] Incoming Radiology Results From [facility] - 03/04/2021 11:46 AM EDT Patient Name: SOCORRO GONSALES Nuclear Medicine ACCESSION EXAM DATE/TIME PROCEDURE ORDERING PROVIDER [id number] 03/04/2021 10:25 EDT NM Gastric Emptying JORDANA MORAN BROOKE Study CPT code 60629 Reason For Exam (NM Gastric Emptying Study) Abdominal Pain/Nausea Report SOLID PHASE GASTRIC EMPTYING STUDY CLINICAL INDICATION: Abdominal pain and nausea The patient was given a standard meal of 1.1 millicurie of technetium-99m sulfur colloid prepared with egg. Anterior and posterior images over the abdomen were obtained up to two hours after ingestion. VINEC activity curves over the stomach were then calculated. COMPARISON: None FINDINGS: At one hour, there is 75 percent of original activity within the stomach. At two hours after ingestion, 50 percent of original activity remains within the stomach. Normal at two hours following ingestion is between 19 and 52 percent. IMPRESSION: Borderline abnormally delayed gastric emptying following solid meal. Report Dictated on --- Final --- Dictated: 03/04/2021 11:45 am Dictating Physician: MD REBOLLAR JONATHAN R Signed Date and Time: 03/04/2021 11:45 am Signed by: MD REBOLLAR JONATHAN R Transcribed Date and Time: 03/04/2021 11:45 [facility] Work Phone: [facility] Work Phone: C-Reactive Proteinon 021 CRP [Mass/Vol] mg/L Normal 0.0-6.0 [facility] Comment on above: Result Comment: . Performed By: #### L FT3, HEMDF, BMP3, LACT3, LIPA4 #### [facility] [address] [place] [address] C-Reactive ProteinOrdered By : Aminah Hemphill on 02-17-2021 CRP [Mass/Vol] mg/L 0.0 - 6.0 mg/L [facility] Work Phone: Comment on above: . Test Performed by [facility], [address] [place] [address] [facility] Work Phone: [facility] Work Phone: CT Abdomen and Pelvis W cont rast IVOrdered By: Aminah Hemphill on 02-17-2021 Patient Name: SOCORRO ORELLANA Computed Tomography ACCESSION EXAM DATE/TIME PROCEDURE ORDERING PROVIDER [id number] 02/17/2021 02:[address] Abdomen/Pelvis w/ IV [id number] -AMINAH HEMPHILL Contrast (IV Onl CPT code 41933 Q9967 Reason For Exam (CT Abdomen/Pelvis w/ IV Contrast (IV Onl) LL PAIN WITH MULTIPLE ABDOMINAL SURGERIES Report EXAMINATION: CT of the Abdomen and Pelvis with Contrast. COMPARISON: None. REASON FOR STUDY: Left lower abdominal pain; multiple abdominal surgeries. TECHNIQUE: Contiguous multiplanar 3 mm images were extended from the lung bases through the pubic symphysis after intravenous infusion of 75 mL of Isovue-370. FINDINGS: Lung Bases: No abnormality noted. Hepatobiliary: Hepatic parenchyma appears normal. Biliary tree is not appreciably dilated. Gallbladder has been removed. Solid Viscus: Spleen, pancreas and adrenal glands appear normal. Peritoneum, Retroperitoneum And Mesentery: No inflammatory change, free fluid or abnormal mass is shown. Genitourinary: Kidneys, ureters and bladder appear normal. Retroverted uterus and right adnexal structures appear normal. A peripherally enhancing structure measuring 13.2 mm in cross-section is observed in the left adnexum and is surrounded by fluid which extends to the cul-de-sac. Gastrointestinal: Stomach appears normal. Small bowel caliber, polo and mucosal pattern appear normal. Colonic caliber, polo and haustral pattern appear normal; cecum lies transversely in the midpelvis. Appendix appears normal in thickness and morphology. Computed Tomography Report Vasculature: No abnormality seen. Bones: Osseous structures appear intact. Soft Tissues: No significant findings. CONCLUSION(S): 1. Partially decompressed left ovarian cyst with surrounding fluid, likely etiology of symptoms. 2. Retroverted uterus. Report Dictated on --- Final --- Dictating Physician: MD LO B NELSON Signed Date and Time: 02/17/2021 3:37 am Signed by: MD LO B NELSON Transcribed Date and Time: 02/17/2021 3:38 [facility] Work Phone: [place], [facility] Incoming Radiology Results From [facility] - 02/17/2021 3:38 AM EDT Patient Name: SOCORRO GONSALES Computed Tomography ACCESSION EXAM DATE/TIME PROCEDURE ORDERING PROVIDER [id number] 02/17/2021 02:[address] Abdomen/Pelvis w/ IV [id number] -AMINAH HEMPHILL Contrast (IV Onl CPT code 18209 Q9967 Reason For Exam (CT Abdomen/Pelvis w/ IV Contrast (IV Onl) LL PAIN WITH MULTIPLE ABDOMINAL SURGERIES Report EXAMINATION: CT of the Abdomen and Pelvis with Contrast. COMPARISON: None. REASON FOR STUDY: Left lower abdominal pain; multiple abdominal surgeries. TECHNIQUE: Contiguous multiplanar 3 mm images were extended from the lung bases through the pubic symphysis after intravenous infusion of 75 mL of Isovue-370. FINDINGS: Lung Bases: No abnormality noted. Hepatobiliary: Hepatic parenchyma appears normal. Biliary tree is not appreciably dilated. Gallbladder has been removed. Solid Viscus: Spleen, pancreas and adrenal glands appear normal. Peritoneum, Retroperitoneum And Mesentery: No inflammatory change, free fluid or abnormal mass is shown. Genitourinary: Kidneys, ureters and bladder appear normal. Retroverted uterus and right adnexal structures appear normal. A peripherally enhancing structure measuring 13.2 mm in cross-section is observed in the left adnexum and is surrounded by fluid which extends to the cul-de-sac. Gastrointestinal: Stomach appears normal. Small bowel caliber, polo and mucosal pattern appear normal. Colonic caliber, polo and haustral pattern appear normal; cecum lies transversely in the midpelvis. Appendix appears normal in thickness and morphology. Computed Tomography Report Vasculature: No abnormality seen. Bones: Osseous structures appear intact. Soft Tissues: No significant findings. CONCLUSION(S): 1. Partially decompressed left ovarian cyst with surrounding fluid, likely etiology of symptoms. 2. Retroverted uterus. Report Dictated on --- Final --- Dictating Physician: MD LO B NELSON Signed Date and Time: 02/17/2021 3:37 am Signed by: MD LO B NELSON Transcribed Date and Time: 02/17/2021 3:38 [facility] Work Phone: [facility] Work Phone: CT Abdomen/Pelvis w/ Contras ton 02-17-2021 CT Abdomen/Pelvis w/ Contrast [facility]: [id number] Comput[facility] Tomography ACCESSION EXAM DATE/TIME PROCEDURE ORDERING PROVIDER [id number] 02/17/2021 02:[address] Abdomen/Pelvis w/ IV [id number] AMINAH PEPPER Contrast (IV Onl CPT code 57555 Q9967 Reason For Exam (CT Abdomen/Pelvis w/ IV Contrast (IV Onl) LL PAIN WITH MULTIPLE ABDOMINAL SURGERIES Report EXAMINATION: CT of the Abdomen and Pelvis with Contrast. COMPARISON: None. REASON FOR STUDY: Left lower abdominal pain; multiple abdominal surgeries. TECHNIQUE: Contiguous multiplanar 3 mm images were extended from the lung bases through the pubic symphysis after intravenous infusion of 75 mL of Isovue-370. FINDINGS: Lung Bases: No abnormality noted. Hepatobiliary: Hepatic parenchyma appears normal. Biliary tree is not appreciably dilated. Gallbladder has been removed. Solid Viscus: Spleen, pancreas and adrenal glands appear normal. Peritoneum, Retroperitoneum And Mesentery: No inflammatory change, free fluid or abnormal mass is shown. Genitourinary: Kidneys, ureters and bladder appear normal. Retroverted uterus and right adnexal structures appear normal. A peripherally enhancing structure measuring 13.2 mm in cross-section is observed in the left adnexum and is surrounded by fluid which extends to the cul-de-sac. Gastrointestinal: Stomach appears normal. Small bowel caliber, polo and mucosal pattern appear normal. Colonic caliber, polo and haustral pattern appear normal; cecum lies transversely in the midpelvis. Appendix appears normal in thickness and morphology. Computed Tomography Report Vasculature: No abnormality seen. Bones: Osseous structures appear intact. Soft Tissues: No significant findings. CONCLUSION(S): 1. Partially decompressed left ovarian cyst with surrounding fluid, likely etiology of symptoms. 2. Retroverted uterus. Report Dictated on Final Dictating Physician: MD LO B NELSON Signed Date and Time: 02/17/2021 3:37 am Signed by: MD LO B NELSON Transcribed Date and Time: 02/17/2021 3:38 Normal [facility] Comp Metabolic Panelon 02-17 Calcium [Mass/Vol] 9.2 mg/dL Normal 8.4-10.4 [facility] Comment on above: Performed By: #### M G3, BMP3, HEMDF #### [facility] [address] [place] [address] ALP [Catalytic activity/Vol] 69 U/L Normal 38-126 [facility] Comment on above: Performed By: #### M G3, BMP3, HEMDF #### [facility] [address] [place] [address] ALT [Catalytic activity/Vol] 11 U/L Normal 0-34 [facility] Comment on above: Result Comment: The ALT test is performed by an updated assay method. Please note that the reference intervals have been changed and are now sex specific. Performed By: #### M G3, BMP3, HEMDF #### [facility] [address] [place] [address] Anion gap [Moles/Vol] 9 mmol/L Normal 3-13 [facility] Comment on above: Performed By: #### M G3, BMP3, HEMDF #### [facility] [address] [place] [address] AST [Catalytic activity/Vol] 28 U/L Normal 15-46 [facility] Comment on above: Performed By: #### M G3, BMP3, HEMDF #### [facility] [address] [place] [address] Bilirubin [Mass/Vol] 0.4 mg/dL Normal 0.2-1.3 [facility] Comment on above: Performed By: #### M G3, BMP3, HEMDF #### [facility] [address] [place] [address] CO2 [Moles/Vol] 21 mmol/L Low 22-30 [facility] Comment on above: Performed By: #### M G3, BMP3, HEMDF #### [facility] [address] [place] [address] Creatinine [Mass/Vol] 0.72 mg/dL Normal 0.52-1.25 [facility] Comment on above: Performed By: #### M G3, BMP3, HEMDF #### [facility] [address] [place] [address] eGFR OTHER > 90.0 Normal >60 [facility] Comment on above: Result Comment: KDIG O guidelines provide the following GFR categories: Stage GFR(ml/min/1.73 m2) Terms G1 >=90 Normal or high G2 60-89 Mildly decreased* G3a 45-59 Mildly to moderately decreased G3b 30-44 Moderately to severely decreased G4 15-29 Severely decreased G5 <15 Kidney failure *Relative to young adult level. In the absence of evidence of kidney damage, neither GFR category G1 nor G2 fulfill the criteria for CKD. The CKD-EPI equation is validated in individuals 18 years of age and older. Currently the best equation for estimating glomerular filtration rate (GFR) from serum creatinine in children is the Bedside Gupta equation. It is less accurate in patients with extremes of muscle mass, restriction of dietary protein, ingestion of creatine, extra-renal metabolism of creatinine, or treatment with medications that affect renal tubular creatinine secretion. Performed By: #### M G3, BMP3, HEMDF #### [facility] [address] [place] [address] GFR/1.73 sq M.predicted among blacks MDRD (S/P/Bld) [Vol rate/Area] mL/min/{1.73_m2} Normal >60 [facility] Comment on above: Performed By: #### M G3, BMP3, HEMDF #### [facility] [address] [place] [address] Glucose [Mass/Vol] 86 mg/dL Normal 70-100 [facility] Comment on above: Performed By: #### M G3, BMP3, HEMDF #### [facility] [address] [place] [address] Protein [Mass/Vol] 8.6 g/dL High 6.3-8.2 [facility] Comment on above: Performed By: #### M G3, BMP3, HEMDF #### [facility] [address] [place] [address] Urea nitrogen [Mass/Vol] 12 mg/dL Normal 7-20 [facility] Comment on above: Performed By: #### M G3, BMP3, HEMDF #### [facility] [address] [place] [address] Potassium [Moles/Vol] 3.7 mmol/L Normal 3.5-5.1 [facility] Comment on above: Performed By: #### M G3, BMP3, HEMDF #### [facility] [address] [place] [address] Albumin [Mass/Vol] 4.9 g/dL Normal 3.5-5.0 [facility] Comment on above: Performed By: #### M G3, BMP3, HEMDF #### [facility] [address] [place] [address] Chloride [Moles/Vol] 106 mmol/L Normal 98-107 [facility] Comment on above: Performed By: #### M G3, BMP3, HEMDF #### [facility] [address] [place] [address] Sodium [Moles/Vol] 137 mmol/L Normal 135-145 [facility] Comment on above: Performed By: #### M G3, BMP3, HEMDF #### [facility] [address] [place] [address] Complete Urinalysison 2020 Appearance (U) Clear Normal Clear [facility] Comment on above: Order Comment: # no macroscopic, due to color interference Result Comment: . Performed By: #### L FT3, HEMDF, BMP3, LACT3, LIPA4 #### [facility] [address] [place] [address] Bilirubin,Urine # Normal Negative [facility] Comment on above: Order Comment: # no macroscopic, due to color interference Result Comment: . Performed By: #### L FT3, HEMDF, BMP3, LACT3, LIPA4 #### [facility] [address] [place] [address] Color (U) Ramer Abnormal Lt. Yellow [facility] Comment on above: Order Comment: # no macroscopic, due to color interference Result Comment: . Performed By: #### L FT3, HEMDF, BMP3, LACT3, LIPA4 #### [facility] [address] [place] [address] Glucose Ql (U) # Normal Normal (<70) [facility] Comment on above: Order Comment: # no macroscopic, due to color interference Result Comment: . Performed By: #### L FT3, HEMDF, BMP3, LACT3, LIPA4 #### [facility] [address] [place] [address] Ketone,Urine # Normal Negative [facility] Comment on above: Order Comment: # no macroscopic, due to color interference Result Comment: . Performed By: #### L FT3, HEMDF, BMP3, LACT3, LIPA4 #### [facility] [address] [place] [address] Leukocytes,Urine # Normal Negative [facility] Comment on above: Order Comment: # no macroscopic, due to color interference Result Comment: . Performed By: #### L FT3, HEMDF, BMP3, LACT3, LIPA4 #### [facility] [address] [place] [address] Nitrites,Urine # Normal Negative [facility] Comment on above: Order Comment: # no macroscopic, due to color interference Result Comment: . Performed By: #### L FT3, HEMDF, BMP3, LACT3, LIPA4 #### [facility] [address] [place] [address] Occult Blood,Urine # Normal Negative [facility] Comment on above: Order Comment: # no macroscopic, due to color interference Result Comment: . Performed By: #### L FT3, HEMDF, BMP3, LACT3, LIPA4 #### [facility] [address] [place] [address] pH,Urine # Critically abnormal 5.0-8.0 [facility] Comment on above: Order Comment: # no macroscopic, due to color interference Result Comment: . Performed By: #### L FT3, HEMDF, BMP3, LACT3, LIPA4 #### [facility] [address] [place] [address] Specific [place],Urine # Normal 1.005 - 1.030 [facility] Comment on above: Order Comment: # no macroscopic, due to color interference Result Comment: . Performed By: #### L FT3, HEMDF, BMP3, LACT3, LIPA4 #### [facility] [address] [place] [address] Total Protein,Urine # Normal Negative [facility] Comment on above: Order Comment: # no macroscopic, due to color interference Result Comment: . Performed By: #### L FT3, HEMDF, BMP3, LACT3, LIPA4 #### [facility] [address] [place] [address] Urobilinogen,Urine # Normal Normal (0-1) [facility] Comment on above: Order Comment: # no macroscopic, due to color interference Result Comment: . Performed By: #### L FT3, HEMDF, BMP3, LACT3, LIPA4 #### [facility] [address] [place] [address] Bacteria LM.HPF (Urine sed) [#/Area] Negative Normal Negative [facility] Comment on above: Order Comment: # no macroscopic, due to color interference Result Comment: . Performed By: #### L FT3, HEMDF, BMP3, LACT3, LIPA4 #### [facility] [address] [place] [address] Mucous Threads Few Normal Negative [facility] Comment on above: Order Comment: # no macroscopic, due to color interference Result Comment: . Performed By: #### L FT3, HEMDF, BMP3, LACT3, LIPA4 #### [facility] [address] [place] [address] RBC, Urine 0 - 2 Normal 0-2 [facility] Comment on above: Order Comment: # no macroscopic, due to color interference Result Comment: . Performed By: #### L FT3, HEMDF, BMP3, LACT3, LIPA4 #### [facility] [address] [place] [address] Squamous Epithelial 0 - 2 Normal 3-5 [facility] Comment on above: Order Comment: # no macroscopic, due to color interference Result Comment: . Performed By: #### L FT3, HEMDF, BMP3, LACT3, LIPA4 #### [facility] [address] [place] [address] WBC, Urine 0 - 2 Normal 0-5 [facility] Comment on above: Order Comment: # no macroscopic, due to color interference Result Comment: . Performed By: #### L FT3, HEMDF, BMP3, LACT3, LIPA4 #### [facility] [address] [place] [address] Comprehensive Metabolic Pane lOrdered By: Leno Brandt on 02-17-2021 Albumin [Mass/Vol] 4.9 g/dL 3.5 - 5.0 g/dL [facility] Work Phone: 1 ALP (Bld) [Catalytic activity/Vol] 69 U/L 38 - 126 U/L [facility] Work Phone: ALT [Catalytic activity/Vol] 11 U/L 0 - 34 U/L [facility] Work Phone: Comment on above: The ALT test is perf ormed by an updated assay method. Please note that the reference intervals have been changed and are now sex specific. Anion gap [Moles/Vol] 9 mmol/L 3 - 13 mmol/L [facility] Work Phone: [phone] AST [Catalytic activity/Vol] 28 U/L 15 - 46 U/L [facility] Work Phone: [phone] Bilirubin [Mass/Vol] 0.4 mg/dL 0.2 - 1 .3 mg/dL [facility] Work Phone: [phone] Calcium [Mass/Vol] 9.2 mg/dL 8.4 - 10. 4 mg/dL [facility] Work Phone: [phone] Chloride [Moles/Vol] 106 mmol/L 98 - 10 7 mmol/L [facility] Work Phone: [phone] CO2 [Moles/Vol] 21 mmol/L Low 22 - 30 mmol/L [facility] Work Phone: [phone] Creatinine [Mass/Vol] 0.72 mg/dL 0.52 - 1.25 mg/dL [facility] Work Phone: [phone] EGFR IF NonAfrican Japanese >90.0 >60 mL/min [facility] Work Phone: -[phone] Comment on above: KDIGO guidelines pro vide the following GFR categories: Stage GFR(ml/min/1.73 m2) Terms G1 >=90 Normal or high G2 60-89 Mildly decreased* G3a 45-59 Mildly to moderately decreased G3b 30-44 Moderately to severely decreased G4 15-29 Severely decreased G5 <15 Kidney failure *Relative to young adult level. In the absence of evidence of kidney damage, neither GFR category G1 nor G2 fulfill the criteria for CKD. The CKD-EPI equation is validated in individuals 18 years of age and older. Currently the best equation for estimating glomerular filtration rate (GFR) from serum creatinine in children is the Bedside Gupta equation. It is less accurate in patients with extremes of muscle mass, restriction of dietary protein, ingestion of creatine, extra-renal metabolism of creatinine, or treatment with medications that affect renal tubular creatinine secretion. Free PSA/Total PSA [Mass fraction] 8.6 g/dL High 6.3 - 8.2 g/dL [facility] Work Phone: GFR/1.73 sq M.predicted among blacks MDRD (S/P/Bld) [Vol rate/Area] mL/min/{1.73_m2} >60 mL/min [facility] Work Phone: Glucose [Mass/Vol] 86 mg/dL 70 - 100 mg/dL [facility] Work Phone: Interpretation and review of laboratory results Abnormal [facility] Work Phone: Potassium [Moles/Vol] 3.7 mmol/L 3.5 - 5.1 mmol/L [facility] Work Phone: Sodium [Moles/Vol] 137 mmol/L 135 - 145 mmol/L [facility] Work Phone: Urea nitrogen (BldV) [Mass/Vol] 12 mg/dL 7 - 20 mg/dL [facility] Work Phone: ED Provider Noteon 1 ED Provider Note [facility] ED eMERGENCY dEPARTMENT eNCOUnter Pt Name: Socorro Gonsales Birthdate 1995 Date of evaluation: 02/17/2021 Provider: SATHISH Jennings CNP This patient was seen in conjunction with Dr. Hemphill CHIEF COMPLAINT Chief Complaint Patient presents with ? Abdominal Pain HISTORY OF PRESENT ILLNESS (Location/Symptom, Timing/Onset,Context/Set ting, Quality, Duration, Modifying Factors, Severity) Note limiting factors. HPI Socorro Gonsales is a 25 y.o. female who presents to the emergency department with left upper quadrant abdominal pain and pain that radiates across the lower abdomen. Patient states this started yesterday has gotten progressively worse she states this is different than her chronic left upper quadrant abdominal pain she has. Patient had extensive abdominal surgery in the past, she has a history of lymphocytic colitis has been having abdominal pain for the last 2 years she is had multiple CAT scans that really did not identify any cause and she states that essentially GI thinks this might be from adhesions and she is currently in the process of seeing general surgery. She had a colonoscopy in May 2020 that was unremarkable. Was recently placed on Levsin to try to help her symptoms she is also currently on Pyridium for chronic urine problems. Nursing Notes were reviewed. REVIEW OF SYSTEMS (2+ for4; 10+ for level 5) Review of Systems Constitutional: Negative for activity change, appetite change, chills and fever. HENT: Negative for congestion, ear discharge, ear pain, hearing loss, postnasal drip, rhinorrhea and sore throat. Eyes: Negative for discharge and redness. Respiratory: Negative for chest tightness and shortness of breath. Cardiovascular: Negative for chest pain. Gastrointestinal: Positive for abdominal pain. Negative for diarrhea, nausea and vomiting. Genitourinary: Negative for dysuria. Musculoskeletal: Negative for arthralgias and myalgias. Skin: Negative for color change. Neurological: Negative for dizziness, light-headedness and headaches. Psychiatric/Behavioral: Negative for confusion. All other systems reviewed and are negative. PAST MEDICAL HISTORY Past Medical History: Diagnosis Date ? Allergic rhinitis ? Anxiety ? Asthma ? Chronic abdominal pain ? GERD (gastroesophageal reflux disease) ? Hydronephrosis of right kidney 07/17/2019 ? IUD (intrauterine device) in place ? Pancreatic divisum ? Syncope and collapse ? Tobacco abuse ? Ulcerative colitis (HCC) SURGICALHISTORY Past Surgical History: Procedure Laterality Date ? ABDOMINAL EXPLORATION SURGERY 05/2019 duodenal cyst removal ? CHOLECYSTECTOMY, LAPAROSCOPIC 05/2019 ? COLONOSCOPY 05/2020 [place] ? CYSTOSCOPY 12/28/2020 ? DILATATION, ESOPHAGUS ? HYSTEROSCOPY 02/23/2020 Diagnostic laparoscopy, Hysteroscopy, D&C, Mirena IUD insertion ? INTRAUTERINE DEVICE INSERTION ? SALPINGECTOMY Bilateral 04/28/2018 ? UPPER GASTROINTESTINAL ENDOSCOPY 12/06/2020 Dr Jansen at [facility] ? WISDOM TOOTH EXTRACTION CURRENT MEDICATIONS Previous Medications ACETAMINOPHEN (MIDOL PO) Take by mouth ACETAMINOPHEN (TYLENOL) 325 MG TABLET Take 650 mg by mouth every 6 hours as needed for Pain ALBUTEROL SULFATE HFA 108 (90 BASE) MCG/ACT INHALER Inhale 2 puffs into the lungs every 4 hours as needed BUDESONIDE (ENTOCORT EC) 3 MG EXTENDED RELEASE CAPSULE Take 3 capsules by mouth every morning HYOSCYAMINE (LEVSIN) 125 MCG TABLET Take 1 tablet by mouth every 6 hours as needed for Cramping OMEPRAZOLE (PRILOSEC) 40 MG DELAYED RELEASE CAPSULE Take 1 capsule by mouth every morning (before breakfast) for 14 days ONDANSETRON (ZOFRAN-ODT) 4 MG DISINTEGRATING TABLET Take 1 tablet by mouth 3 times daily as needed for Nausea or Vomiting PROMETHAZINE (PHENERGAN) 12.5 MG TABLET Take 1 tablet by mouth 4 times daily as needed for Nausea Latex, Codeine, and Gabapentin FAMILY HISTORY Family History Problem Relation Age of Onset ? Other Mother MS, good pastures syndrome ? Heart Attack Mother ? Kidney Disease Mother Kidney Failure ? No Known Problems Father ? health ? Depression Sister ? No Known Problems Brother SOCIAL HISTORY Social History Socioeconomic History ? Marital status: Single Spouse name: None ? Number of children: 2 ? Years of education: None ? Highest education level: None Occupational History ? None Tobacco Use ? Smoking status: Former Smoker Start date: 05/04/2017 Quit date: 06/2018 Years since quittin.6 ? Smokeless tobacco: Never Used Vaping Use ? Vaping Use: Every day ? Substances: Nicotine, Flavoring ? Devices: Pre-filled pod (Juul) ? Passive vaping exposure Yes Substance and Sexual Activity ? Alcohol use: Yes Comment: occassionally ? Drug use: No Comment: tea every day ? Sexual activity: Yes Partners: Male Other Topics Concern ? None Social History Narrative Single, BF (more content not included)... Normal [facility] ED Provider Note Emergency Department Encounter [facility] ED Patient: Socorro Gonsales : 1995 Date of Evaluation: 02/17/2021 ED Supervising Physician: Aminah Hemphill MD I independently examined and evaluated Socorro Gonsales. In brief, Socorro Gonsales is a 25 y.o. female with a past medical history significant for asthma, GERD, abdominal pain, syncopal episodes, pelvic pain, and generalized anxiety disorder that presents to the emergency department for evaluation for abdominal pain. Patient states that she takes Pyridium for pelvic pain to avoid bladder spasms. She states that she is also on Bentyl at home for abdominal pain. She states that she has been trying to manage her symptoms for the last 2 days without much improvement. Patient rates her pain as a 10 out of 10. She states pain has no exacerbating or alleviating factors. She states the pain is intermittently accompanied by nausea but denies vomiting. The patient also denies any fevers, chills, diarrhea, constipation or hematochezia. Patient also denies any urinary symptoms. Focused exam: [id number] in no acute distress. Alert and oriented X 3. Lungs clear to auscultation bilaterally with no wheezes or crackles appreciated. Heart rate and rhythm regular with no murmurs. Abdomen soft with diffuse tenderness to palpation. Remain nondistended with positive bowel sounds. No edema appreciated on the lower extremities bilaterally. Brief ED course/MDM: Presenting for evaluation for abdominal pain with nausea that she is try to control at home with her home medications without improvement. Patient's presentation is concerning for acute exacerbation of chronic back pain and less likely due to choledocholithiasis, cholecystitis, or pelvic Pathology. Work-up in the emergency department with no electrolyte abnormalities, no renal function impairment, no transaminitis, normal lipase, urinalysis that was indeterminate given patient is taking Pyridium, no leukocytosis, no anemia, and a CT of the abdomen and pelvis with a left adnexal lesion with fluid collection in the cul-de-sac. Given these findings a pelvic ultrasound was obtained which revealed a decompressed wrist ovarian cyst with a small amount of pelvic ascites. Patient received multiple doses of pain medication in the emergency department without improvement of symptoms. She also received 2 doses of antiemetics with improvement of nausea. I discussed all lab and imaging results with the patient. Educated the patient at this point since her abdominal pain is intractable would recommend admission for symptom management. I offered the patient discharge home with outpatient follow-up which she was not agreeable with. Patient was discussed with the internal medicine group who recommended discharge home with outpatient follow-up. Discussed this recommendations with the patient. She verbalized understanding of information given and agreed to plan. She was discharged in stable condition. All diagnostic, treatment, and disposition decisions were made by myself in conjunction with the [facility]. For all further details of the patient's emergency department visit, please see their documentation. (Please note that portions of this note may have been completed with a voice recognition program. Efforts were made to edit the dictations but occasionally words are mis-transcribed.) Aminah Hemphill MD Acute Care [facility] Aminah Hemphill MD 02/17/211956 Normal [facility] HCG,Urine Qualon 02-17-2021 Beta HCG ( test) Ql (U) Negative Normal Negative [facility] Comment on above: Result Comment: Plea se note: Very dilute urine specimens, as indicated by a low specific gravity, may not contain phlebotomy services representative levels of hCG. If is still suspected, a first morning urine specimen should be collected 48 hours later and tested. is the most common reason for HCG in urine, although choriocarcinoma, hydatidiform mole, and certain nontropho- blastic malignancies also result in detectable urinary HCG levels. Sensitivity = 20mIU/mL. Performed By: #### L FT3, HEMDF, BMP3, LACT3, LIPA4 #### [facility] [employer] [address] [place] [address] [facility] Urine Qual PregOrdered B y: Leno Brandt on 02-17-2021 Beta HCG ( test) Ql (U) Negative Negative NA [employer] Work Phone: Comment on above: Please note: Very di lute urine specimens, as indicated by a low specific gravity, may not contain phlebotomy services representative levels of hCG. If is still suspected, a first morning urine specimen should be collected 48 hours later and tested. is the most common reason for HCG in urine, although choriocarcinoma, hydatidiform mole, and certain nontropho- blastic malignancies also result in detectable urinary HCG levels. Sensitivity = 20mIU/mL. Test Performed by [facility] [employer], [address], [place], [place] [address] [facility] Work Phone: Hemogramon 02-17-2021 Erythrocyte distribution width (RBC) [Ratio] 16.7 % High 11.5-14.5 [employer] Comment on above: Performed By: #### M G3, BMP3, HEMDF #### [facility] [employer] [address] [place] [address] Hematocrit (Bld) [Volume fraction] 35.3 % Normal 35.0-47.0 [facility] Comment on above: Performed By: #### DARREN Lugo3, HEMDF #### [facility] [address] [place] [address] Hemoglobin (Bld) [Mass/Vol] 11.9 g/dL Normal 11.7-16.0 [facility] Comment on above: Performed By: #### DARREN Lugo3, HEMDF #### [facility] [address] [place] [address] MCH (RBC) [Entitic mass] 27.6 pg Normal 26.0-34.0 [facility] Comment on above: Performed By: #### Brad Heard BMP3, HEMDF #### [facility] [address] [place] [address] MCHC 33.8 % Normal 32.0-36.0 [facility] Comment on above: Performed By: #### Brad Heard BMP3, HEMDF #### [facility] [address] [place] [address] MCV (RBC) [Entitic vol] 81.6 fL Normal 79.0-98.0 [facility] Comment on above: Performed By: #### Brad Heard BMP3, HEMDF #### [facility] [address] [place] [address] Platelet mean volume (Bld) [Entitic vol] 7.7 fL Normal 7.4-10.4 [facility] Comment on above: Performed By: #### Brad Heard BMP3, HEMDF #### [facility] [address] [place] [address] Platelets (Bld) [#/Vol] 331 10*3/uL Normal 140-440 [facility] Comment on above: Performed By: #### Brad Heard BMP3, HEMDF #### [facility] [address] [place] [address] RBC (Bld) [#/Vol] 4.33 10*6/uL Normal 3.80-5.20 [facility] Comment on above: Performed By: #### M G3, BMP3, HEMDF #### [facility] [employer] [facility] [address] [place] [address] WBC (Bld) [#/Vol] 8.3 10*3/uL Normal 3.6-10.7 [facility] [employer] Comment on above: Performed By: #### M G3, BMP3, HEMDF #### [facility] [employer] [facility] [address] [place] [address] Hemogram (CBC)Ordered By: Shahram Brandt on 02-17-2021 Hematocrit (Bld) [Volume fraction] 35.3 % 35.0 - 47.0 % [facility] Phone: [phone] Hemoglobin.gastrointe stinal spec 1 Ql (Stl) 11.9 g/dL 11.7 - 16.0 g/dL [facility] Phone: [phone] Interpretation and review of laboratory results Abnormal [facility] Phone: [phone] MCH (RBC) [Entitic mass] 27.6 pg 26.0 - 34.0 pg [facility] Work Phone: [phone] MCHC (RBC) [Mass/Vol] 33.8 % 32.0 - 36.0 % [facility] Phone: [phone] MCV (RBC) [Entitic vol] 81.6 fL 79.0 - 98.0 fL [facility] Phone: [phone] Platelet distribution width (Bld) [Ratio] 16.7 % High 11.5 - 14.5 % [facility] Phone: [phone] Platelet mean volume (Bld) [Entitic vol] 7.7 fL 7.4 - 10.4 fL [facility] Work Phone: [phone] Platelets (Bld) [#/Vol] 331 10*3/uL 140 - 440 10*3/uL [employer] Work Phone: [phone] RBC (Bld) [#/Vol] 4.33 10*6/uL 3.80 - 5.2 0 10*6/uL [facility] Work Phone: [phone] WBC (Bld) [#/Vol] 8.3 10*3/uL 3.6 - 10.7 10*3/uL [facility] Work Phone: [phone] Test Performed by [facility] [employer], [address] [place], [place] [address] [facility] Work Phone: [phone] [facility] Work Phone: [phone] Lactic Acidon 02-17-2021 Lactate [Moles/Vol] 1.1 mmol/L Normal 0.7-2.0 [facility] Comment on above: Performed By: #### L FT3, HEMDF, BMP3, LACT3, LIPA4 #### [employer] [address] [place] [address] Lactic Acid, PlasmaOrdered B y: Aminah Hemphill on 02-17-2021 Lactate [Moles/Vol] 1.1 mmol/L 0.7 - 2. 0 mmol/L [employer] Work Phone: [phone] Test Performed by [facility], [address] [place], [place] [address] [facility] Work Phone: [phone] [facility] Work Phone: [phone] Lipaseon 02-17-2021 Lipase [Catalytic activity/Vol] 187 U/L Normal 23-300 [facility] [employer] Comment on above: Performed By: #### L FT3, HEMDF, BMP3, LACT3, LIPA4 #### [employer] [address] [place] [address] LipaseOrdered By: Leno packer on 02-17-2021 Lipase [Catalytic activity/Vol] 187 U/L 23 - 300 U/L [facility] Work Phone: [phone] No Panel InformationOrdered By: Leno Brandt on 02-17-2021 Test Performed by [facility] [employer] [facility], [address] [place], [place] [address] [facility] Work Phone: [phone] [facility] Work Phone: [phone] [facility] Work Phone: [phone] Sed Rateon 02-17-2021 Sed Rate 6 mm/h Normal 0-20 [facility] Comment on above: Performed By: #### L FT3, HEMDF, BMP3, LACT3, LIPA4 #### [facility] [address] [place] [address] Sedimentation RateOrdered By : Aminah Hemphill on 02-17-2021 Sed Rate 6 mm/h 0 - 20 mm/h [facility] Work Phone: Test Performed by [facility], [address] [place] [address] [facility] Work Phone: [facility] Work Phone: US NON OB TRANSVAGINALOrdere d By: Aminah Hemphill on 02-17-2021 Patient Name: SOCORRO ORELLANA Ultrasound ACCESSION EXAM DATE/TIME PROCEDURE ORDERING PROVIDER [id number] 02/17/2021 05:12 EDT US Transvaginal [id number] AMINAH PEPPER CPT code 81672 Reason For Exam (US Transvaginal) LLQ pain with ovarian cyst with surrounding fluid Report EXAMINATION: Transvaginal pelvic ultrasound. COMPARISON: 12/04/2020. REASON FOR STUDY: Left lower quadrant pain; left ovarian cyst with surrounding fluid. TECHNIQUE: Real-time mercado scale and supplemental color doppler imaging was performed transvaginally. FINDINGS: A retroverted uterus measures 9.2 cm in length and 4.5 cm x 7.7 cm in its respective transverse dimensions. Uterus is bicornuate. Endometrium measures 19 mm In thickness. Uterine echo complex otherwise appears normal. Right ovary measures 5.1 cm x 1.8 cm x 2.6 cm. Echotexture appears normal. Color doppler interrogation shows normal perfusion. Left ovary measures 4.1 cm x 2.1 cm x 3.1 cm. Thickly-encapsulated hypoechoic lesion measuring 1.6 cm in widest dimension is observed centrally. Color doppler interrogation interrogation shows normal perfusion. Small fluid collection is observed in the left adnexae and cul-de-sac. CONCLUSIONS: 1. Retroverted bicornuate uterus. 2. Probable partially decompressed left ovarian cyst. 3. Small pelvic ascites. Ultrasound Report Report Dictated on --- Final --- Dictating Physician: MD LO B NELSON Signed Date and Time: 02/17/2021 5:47 am Signed by: MD LO B NELSON Transcribed Date and Time: 02/17/2021 5:48 [facility] Work Phone: Reynaldo, [facility] Incoming [facility] Results From [facility] - 02/17/2021 5:48 AM EDT Patient Name: SOCORRO GONSALES Ultrasound ACCESSION EXAM DATE/TIME PROCEDURE ORDERING PROVIDER [id number] 02/17/2021 05:12 EDT US Transvaginal 639003 AMINAH PEPPER CPT code 95884 Reason For Exam (US Transvaginal) LLQ pain with ovarian cyst with surrounding fluid Report EXAMINATION: Transvaginal pelvic ultrasound. COMPARISON: 12/04/2020. REASON FOR STUDY: Left lower quadrant pain; left ovarian cyst with surrounding fluid. TECHNIQUE: Real-time mercado scale and supplemental color doppler imaging was performed transvaginally. FINDINGS: A retroverted uterus measures 9.2 cm in length and 4.5 cm x 7.7 cm in its respective transverse dimensions. Uterus is bicornuate. Endometrium measures 19 mm In thickness. Uterine echo complex otherwise appears normal. Right ovary measures 5.1 cm x 1.8 cm x 2.6 cm. Echotexture appears normal. Color doppler interrogation shows normal perfusion. Left ovary measures 4.1 cm x 2.1 cm x 3.1 cm. Thickly-encapsulated hypoechoic lesion measuring 1.6 cm in widest dimension is observed centrally. Color doppler interrogation interrogation shows normal perfusion. Small fluid collection is observed in the left adnexae and cul-de-sac. CONCLUSIONS: 1. Retroverted bicornuate uterus. 2. Probable partially decompressed left ovarian cyst. 3. Small pelvic ascites. Ultrasound Report Report Dictated on --- Final --- Dictating Physician: MD LO B NELSON Signed Date and Time: 02/17/2021 5:47 am Signed by: MD LO B NELSON Transcribed Date and Time: 02/17/2021 5:48 [facility] Work Phone: [facility] Work Phone: US Transvaginalon 02-17-2021 US Transvaginal Patient Name: SOCORRO ORELLANA Ultrasound ACCESSION EXAM DATE/TIME PROCEDURE ORDERING PROVIDER [id number] 02/17/2021 05:12 EDT US Transvaginal 124149 AMINAH PEPPER CPT code 93147 Reason For Exam (US Transvaginal) LLQ pain with ovarian cyst with surrounding fluid Report EXAMINATION: Transvaginal pelvic ultrasound. COMPARISON: 12/04/2020. REASON FOR STUDY: Left lower quadrant pain; left ovarian cyst with surrounding fluid. TECHNIQUE: Real-time mercado scale and supplemental color doppler imaging was performed transvaginally. FINDINGS: A retroverted uterus measures 9.2 cm in length and 4.5 cm x 7.7 cm in its respective transverse dimensions. Uterus is bicornuate. Endometrium measures 19 mm In thickness. Uterine echo complex otherwise appears normal. Right ovary measures 5.1 cm x 1.8 cm x 2.6 cm. Echotexture appears normal. Color doppler interrogation shows normal perfusion. Left ovary measures 4.1 cm x 2.1 cm x 3.1 cm. Thickly-encapsulated hypoechoic lesion measuring 1.6 cm in widest dimension is observed centrally. Color doppler interrogation interrogation shows normal perfusion. Small fluid collection is observed in the left adnexae and cul-de-sac. CONCLUSIONS: 1. Retroverted bicornuate uterus. 2. Probable partially decompressed left ovarian cyst. 3. Small pelvic ascites. Ultrasound Report Report Dictated on Final Dictating Physician: MD LO B NELSON Signed Date and Time: 02/17/2021 5:47 am Signed by: MD LO B NELSON Transcribed Date and Time: 02/17/2021 5:48 Normal [facility] UrinalysisOrdered By: Leno Brandt on 02-17-2021 Appearance (U) Clear Clear NA [facility] Work Phone: Comment on above: . Bacteria, UA Negative Negative /[HPF] [facility] Work Phone: Comment on above: . Bilirubin Urine # Negative mg/dL [facility] Work Phone: [phone] Comment on above: . Color (U) Ramer Abnormal Lt. Yellow NA [facility] Work Phone: [phone] Comment on above: . Glucose, Ur # Normal (<70) mg/dL [facility] Work Phone: [phone] Comment on above: . Interpretation and review of laboratory results Abnormal [facility] Work Phone: [phone] Ql (U) # Negative mg/dL [facility] Work Phone: [phone] Comment on above: . LEUKOCYTES, UA # Negative Reyes/uL [facility] Work Phone: [phone] Comment on above: . Mucous Threads Few Negative /[LPF] [facility] Work Phone: [phone] Comment on above: . Nitrite, Urine # Negative NA [facility] Work Phone: [phone] Comment on above: . Occult Blood,Urine # Negative mg/dL [facility] Work Phone: [phone] Comment on above: . pH, Urine # Critically abnormal [facility] Work Phone: [phone] Comment on above: . RBC, UA 0-2 0 - 2 /[HPF] [facility] Work Phone: [phone] Comment on above: . Specific [place], Urine # [facility] Work Phone: [phone] Comment on above: . Squam Epithel, UA 0-2 3 - 5 /[HPF] [facility] Work Phone: [phone] Comment on above: . Total Protein, Urine # Negative mg/dL [facility] Work Phone: [phone]() Comment on above: . Urobilinogen, Urine # Normal ( 0-1) mg/dL [facility] Work Phone: [phone] Comment on above: . WBC, UA 0-2 0 - 5 /[HPF] [facility] Work Phone: [phone] Comment on above: . Test Performed by [facility], [address], [place], [place] [address] # no macroscopic, due to color interference [facility] Work Phone: [phone] OPERATIVE REPORTOrdered By: 3m Scanning on 12-28-2020 [facility] Work Phone: [phone] , urine POCTOrdered By: Elin Raya on 12-28-2020 Beta HCG ( test) Ql (U) Negative Negative [facility] Work Phone: Interpretation and review of laboratory results Normal [facility] Work Phone: Lot Number [id number] [facility] Work Phone: Negative QC Pass/Fail Pass [facility] Work Phone: [phone] Positive QC Pass/Fail Pass [facility] Work Phone: [facility] Work Phone: US RETROPERITONEAL LIMITEDOr dered By: Elin Raya on 12-17-2020 Patient Name: SOCORRO ORELLANA Ultrasound ACCESSION EXAM DATE/TIME PROCEDURE ORDERING PROVIDER [id number] 12/17/2020 13:47 EDT US Retroperitoneal MD DOROTA, ELIN Miner CPT code 22775 Reason For Exam (US Retroperitoneal Limited) Unspecified hydronephrosis Report Indication: Hydronephrosis. Detailed ultrasound of the kidneys was performed. Comparison was made to the renal ultrasound dated 07/17/2019. The right kidney measures 10.2 x 4.2 x 4.5 cm and the left kidney measures 10.3 x 5.3 x 5.3 cm. The kidneys are grossly normal in echotexture. There are no cystic or solid masses identified in either kidney. There is no evidence of stone or hydronephrosis. The urinary bladder is poorly distended and cannot be adequately evaluated. Impression: 1. Unremarkable renal ultrasound. No significant change when compared to the previous study. Report Dictated on --- Final --- Dictating Physician: DO LEIJA ANTHONY Signed Date and Time: 12/17/2020 1:55 pm Signed by: DO LEIJA ANTHONY Transcribed Date and Time: 12/17/2020 1:56 [facility] Work Phone: Reynaldo, [facility] In[facility] Rad[facility] Results From [facility] - 12/17/2020 1:56 PM EDT Patient Name: SOCORRO GONSALES Ultrasound ACCESSION EXAM DATE/TIME PROCEDURE ORDERING PROVIDER [id number] 12/17/2020 13:47 EDT US Jt RAYA MD, LAWRENCE Limited CPT code 79915 Reason For Exam (US Retroperitoneal Limited) Unspecified hydronephrosis Report Indication: Hydronephrosis. Detailed ultrasound of the kidneys was performed. Comparison was made to the renal ultrasound dated 07/17/2019. The right kidney measures 10.2 x 4.2 x 4.5 cm and the left kidney measures 10.3 x 5.3 x 5.3 cm. The kidneys are grossly normal in echotexture. There are no cystic or solid masses identified in either kidney. There is no evidence of stone or hydronephrosis. The urinary bladder is poorly distended and cannot be adequately evaluated. Impression: 1. Unremarkable renal ultrasound. No significant change when compared to the previous study. Report Dictated on --- Final --- Dictating Physician: DO LEIJA ANTHONY Signed Date and Time: 12/17/2020 1:55 pm Signed by: DO LEIJA ANTHONY Transcribed Date and Time: 12/17/2020 1:56 [facility] Work Phone: US Retroperitoneal Limitedon 12-17-2020 US Retroperitoneal Limited Patient Name: SOCORRO GONSALES Ultrasound ACCESSION EXAM DATE/TIME PROCEDURE ORDERING PROVIDER [id number] 12/17/2020 13:47 EDT US Jt RAYA MD, LAWRENCE Limited CPT code 00732 Reason For Exam (US Retroperitoneal Limited) Unspecified hydronephrosis Report Indication: Hydronephrosis. Detailed ultrasound of the kidneys was performed. Comparison was made to the renal ultrasound dated 07/17/2019. The right kidney measures 10.2 x 4.2 x 4.5 cm and the left kidney measures 10.3 x 5.3 x 5.3 cm. The kidneys are grossly normal in echotexture. There are no cystic or solid masses identified in either kidney. There is no evidence of stone or hydronephrosis. The urinary bladder is poorly distended and cannot be adequately evaluated. Impression: 1. Unremarkable renal ultrasound. No significant change when compared to the previous study. Report Dictated on Final Dictating Physician: DO LEIJA ANTHONY Signed Date and Time: 12/17/2020 1:55 pm Signed by: DO LEIJA ANTHONY Transcribed Date and Time: 12/17/2020 1:56 Normal [facility] Basic Metabolic Panelon 04-3 -2020 Anion gap [Moles/Vol] 5 mmol/L Normal 3-13 [facility] Comment on above: Performed By: #### L FT3, HEMDF, BMP3, LACT3, LIPA4 #### [facility] [address] [place] [address] Calcium [Mass/Vol] 8.8 mg/dL Normal 8.4-10.4 [facility] Comment on above: Performed By: #### L FT3, HEMDF, BMP3, LACT3, LIPA4 #### [facility] [address] [place] [address] CO2 [Moles/Vol] 25 mmol/L Normal 22-30 [facility] Comment on above: Performed By: #### L FT3, HEMDF, BMP3, LACT3, LIPA4 #### [facility] [address] [place] [address] Glucose [Mass/Vol] 102 mg/dL High 70-100 [facility] Comment on above: Performed By: #### L FT3, HEMDF, BMP3, LACT3, LIPA4 #### [facility] [address] [place] [address] Urea nitrogen [Mass/Vol] 13 mg/dL Normal 7-20 [facility] Comment on above: Performed By: #### L FT3, HEMDF, BMP3, LACT3, LIPA4 #### [facility] [address] [place] [address] Creatinine [Mass/Vol] 0.66 mg/dL Normal 0.52-1.25 [facility] Comment on above: Performed By: #### L FT3, HEMDF, BMP3, LACT3, LIPA4 #### [facility] [address] [place] [address] eGFR OTHER > 90.0 Normal >60 [facility] Comment on above: Result Comment: KDIG O guidelines provide the following GFR categories: Stage GFR(ml/min/1.73 m2) Terms G1 >=90 Normal or high G2 60-89 Mildly decreased* G3a 45-59 Mildly to moderately decreased G3b 30-44 Moderately to severely decreased G4 15-29 Severely decreased G5 <15 Kidney failure *Relative to young adult level. In the absence of evidence of kidney damage, neither GFR category G1 nor G2 fulfill the criteria for CKD. The CKD-EPI equation is validated in individuals 18 years of age and older. Currently the best equation for estimating glomerular filtration rate (GFR) from serum creatinine in children is the Bedside Gupta equation. It is less accurate in patients with extremes of muscle mass, restriction of dietary protein, ingestion of creatine, extra-renal metabolism of creatinine, or treatment with medications that affect renal tubular creatinine secretion. Performed By: #### L FT3, HEMDF, BMP3, LACT3, LIPA4 #### [facility] [address] [place] [address] GFR/1.73 sq M.predicted among blacks MDRD (S/P/Bld) [Vol rate/Area] mL/min/{1.73_m2} Normal >60 [facility] Comment on above: Performed By: #### L FT3, HEMDF, BMP3, LACT3, LIPA4 #### [facility] [address] [place] [address] Chloride [Moles/Vol] 106 mmol/L Normal 98-107 [facility] Comment on above: Performed By: #### L FT3, HEMDF, BMP3, LACT3, LIPA4 #### [facility] [address] [place] [address] Potassium [Moles/Vol] 3.9 mmol/L Normal 3.5-5.1 [facility] Comment on above: Performed By: #### L FT3, HEMDF, BMP3, LACT3, LIPA4 #### [facility] [address] [place] [address] Sodium [Moles/Vol] 136 mmol/L Normal 135-145 [facility] Comment on above: Performed By: #### L FT3, HEMDF, BMP3, LACT3, LIPA4 #### [facility] [address] [place] [address] Basic Metabolic PanelOrdered By: Lyndsay Baker on 12-06-2020 Anion gap [Moles/Vol] 5 mmol/L 3 - 13 mmol/L [facility] Work Phone: Calcium [Mass/Vol] 8.8 mg/dL 8.4 - 10. 4 mg/dL [facility] Work Phone: [phone] Chloride [Moles/Vol] 106 mmol/L 98 - 10 7 mmol/L [facility] Work Phone: [phone] CO2 [Moles/Vol] 25 mmol/L 22 - 30 mmol/L [facility] Work Phone: [phone] Creatinine [Mass/Vol] 0.66 mg/dL 0.52 - 1.25 mg/dL [facility] Work Phone: [phone] IF NonAfrican Japanese >90.0 >60 mL/min [facility] Work Phone: [phone] Comment on above: KDIGO guidelines pro vide the following GFR categories: Stage GFR(ml/min/1.73 m2) Terms G1 >=90 Normal or high G2 60-89 Mildly decreased* G3a 45-59 Mildly to moderately decreased G3b 30-44 Moderately to severely decreased G4 15-29 Severely decreased G5 <15 Kidney failure *Relative to young adult level. In the absence of evidence of kidney damage, neither GFR category G1 nor G2 fulfill the criteria for CKD. The CKD-EPI equation is validated in individuals 18 years of age and older. Currently the best equation for estimating glomerular filtration rate (GFR) from serum creatinine in children is the Bedside Gupta equation. It is less accurate in patients with extremes of muscle mass, restriction of dietary protein, ingestion of creatine, extra-renal metabolism of creatinine, or treatment with medications that affect renal tubular creatinine secretion. GFR/1.73 sq M.predicted among blacks MDRD (S/P/Bld) [Vol rate/Area] mL/min/{1.73_m2} >60 mL/min [facility] Work Phone: Glucose [Mass/Vol] 102 mg/dL High 70 - 100 mg/dL [facility] Work Phone: Interpretation and review of laboratory results Abnormal [facility] Work Phone: [phone] Potassium [Moles/Vol] 3.9 mmol/L 3.5 - 5.1 mmol/L [facility] Work Phone: Sodium [Moles/Vol] 136 mmol/L 135 - 145 mmol/L [facility] Work Phone: Urea nitrogen (BldV) [Mass/Vol] 13 mg/dL 7 - 20 mg/dL [facility] Work Phone: Test Performed by [facility], [address] [place], [place] [address] [facility] Work Phone: CBCOrdered By: Lyndsay Baker on 12-06-2020 Hematocrit (Bld) [Volume fraction] 29.9 % Low 35.0 - 47.0 % [facility] Work Phone: Hemoglobin.gastrointe stinal spec 1 Ql (Stl) 9.7 g/dL Low 11.7 - 16.0 g/dL [facility] Work Phone: Interpretation and review of laboratory results Abnormal [employer] Work Phone: MCH (RBC) [Entitic mass] 25.9 pg Low 26.0 - 34.0 pg [facility] Work Phone: MCHC (RBC) [Mass/Vol] 32.4 % 32.0 - 36.0 % [facility] Work Phone: MCV (RBC) [Entitic vol] 79.9 fL 79.0 - 98.0 fL [facility] Work Phone: Platelet distribution width (Bld) [Ratio] 16.5 % High 11.5 - 14.5 % [facility] Work Phone: Platelet mean volume (Bld) [Entitic vol] 7.8 fL 7.4 - 10.4 fL [facility] Work Phone: Platelets (Bld) [#/Vol] 272 10*3/uL 140 - 440 10*3/uL [facility] Work Phone: RBC (Bld) [#/Vol] 3.74 10*6/uL Low 3.80 - 5.2 0 10*6/uL [facility] Work Phone: WBC (Bld) [#/Vol] 5.2 10*3/uL 3.6 - 10.7 10*3/uL [facility] Work Phone: Test Performed by [facility], [address], [place], [place] [address] [facility] Work Phone: CT ABDOMEN PELVIS W WO CONTR ASTOrdered By: Davon Ramsay on 12-06-2020 Patient Name: SOCORRO ORELLANA Computed Tomography ACCESSION EXAM DATE/TIME PROCEDURE ORDERING PROVIDER [id number] 12/06/2020 13:[address] Abdomen/Pelvis w/ ZEESHAN RAMSAY, + w/o Contrast DAVON Knight CPT code 97981 Q9967 Reason For Exam (CT Abdomen/Pelvis w/ + w/o Contrast) microscopic hematuria, dilation of right renal pelvis Report CT ABDOMEN AND PELVIS WITHOUT AND WITH CONTRAST - INCLUDING 3D UROGRAPHY CLINICAL INDICATION: Microscopic hematuria with dilatation of right renal pelvis. Scan Parameters: Transaxial sequence through the abdomen and pelvis initially without contrast with low-dose technique. Following intravenous injection of 38.5 mL of 350 mg% contrast followed by three minute delay and additional injection of the remaining 38.5 mL, post contrast sequence was performed. 15 minute delayed imaging was also performed.. Multiplanar and 3D MIP reconstruction was performed by the radiologist on an independent workstation. Dose reduction was employed with automated exposure control. COMPARISON: Pelvic ultrasound 12/04/2020, CT abdomen pelvis 12/03/2020 FINDINGS: Lung bases are essentially clear. Liver demonstrates homogeneous enhancement. Status post cholecystectomy. Spleen appears within normal limits as does the pancreas. No adrenal mass or nodules. Small drop clips from cholecystectomy along the right pericolic gutter and anterior to the right kidney likely incidental. Kidneys symmetrically enhance with fairly symmetric excretion of contrast into the right and left ureter there is slight right-sided pelviectasis with some degree of caliber change at the level of the right UPJ secondary to a prominent crossing vessel. No right or left hydroureter. No nephrolithiasis. Evaluation of the urinary bladder is somewhat limited due to under distention. Uterus and adnexa demonstrate a normal CT appearance for patient's age. No significant ascites. There are a few prominent loops of small bowel with air-fluid levels without evidence of obstruction. Prominent cecum distended with stool extends into the pelvis. Portions of a normal appendix are visualized. Evaluation involving portions of the colon particularly distally are limited due to under distention. No pneumatosis or pneumoperitoneum. No focal fluid collection. A few prominent mesenteric and retroperitoneal lymph nodes without bulky adenopathy. Major vessels enhance normally. Tiny fat-containing periumbilical hernia osseous structures are age. IMPRESSION: Computed Tomography Report 1. Mild right pelviectasis with caliber change at the level of the UPJ secondary to prominent crossing vessel. There however appears to be fairly symmetric excretion of contrast from both kidneys, therefore findings are of unclear clinical significance. No obstructive uropathy or nephrolithiasis. Suboptimal evaluation of the urinary bladder which is underdistended. 2. Prominent cecum distended with stool extends into the right pelvis. 3. Status post cholecystectomy. Report Dictated on --- Final --- Dictating Physician: MD PAYNE VLADIMIR Signed Date and Time: 12/06/2020 2:01 pm Signed by: MD PAYNE VLADIMIR Transcribed Date and Time: 12/06/2020 2:02 [facility] Work Phone: [place], [place] Incoming Radiology Results From [facility] - 12/06/2020 2:02 PM EDT Patient Name: SOCORRO GONSALES Computed Tomography ACCESSION EXAM DATE/TIME PROCEDURE ORDERING PROVIDER [id number] 12/06/2020 13:[address] Abdomen/Pelvis w/ ZEESHAN RAMSAY, + w/o Contrast DAVON L CPT code 69646 Q9967 Reason For Exam (CT Abdomen/Pelvis w/ + w/o Contrast) microscopic hematuria, dilation of right renal pelvis Report CT ABDOMEN AND PELVIS WITHOUT AND WITH CONTRAST - INCLUDING 3D UROGRAPHY CLINICAL INDICATION: Microscopic hematuria with dilatation of right renal pelvis. Scan Parameters: Transaxial sequence through the abdomen and pelvis initially without contrast with low-dose technique. Following intravenous injection of 38.5 mL of 350 mg% contrast followed by three minute delay and additional injection of the remaining 38.5 mL, post contrast sequence was performed. 15 minute delayed imaging was also performed.. Multiplanar and 3D MIP reconstruction was performed by the radiologist on an independent workstation. Dose reduction was employed with automated exposure control. COMPARISON: Pelvic ultrasound 12/04/2020, CT abdomen pelvis 12/03/2020 FINDINGS: Lung bases are essentially clear. Liver demonstrates homogeneous enhancement. Status post cholecystectomy. Spleen appears within normal limits as does the pancreas. No adrenal mass or nodules. Small drop clips from cholecystectomy along the right pericolic gutter and anterior to the right kidney likely incidental. Kidneys symmetrically enhance with fairly symmetric excretion of contrast into the right and left ureter there is slight right-sided pelviectasis with some degree of caliber change at the level of the right UPJ secondary to a prominent crossing vessel. No right or left hydroureter. No nephrolithiasis. Evaluation of the urinary bladder is somewhat limited due to under distention. Uterus and adnexa demonstrate a normal CT appearance for patient's age. No significant ascites. There are a few prominent loops of small bowel with air-fluid levels without evidence of obstruction. Prominent cecum distended with stool extends into the pelvis. Portions of a normal appendix are visualized. Evaluation involving portions of the colon particularly distally are limited due to under distention. No pneumatosis or pneumoperitoneum. No focal fluid collection. A few prominent mesenteric and retroperitoneal lymph nodes without bulky adenopathy. Major vessels enhance normally. Tiny fat-containing periumbilical hernia osseous structures are age. IMPRESSION: Computed Tomography Report 1. Mild right pelviectasis with caliber change at the level of the UPJ secondary to prominent crossing vessel. There however appears to be fairly symmetric excretion of contrast from both kidneys, therefore findings are of unclear clinical significance. No obstructive uropathy or nephrolithiasis. Suboptimal evaluation of the urinary bladder which is underdistended. 2. Prominent cecum distended with stool extends into the right pelvis. 3. Status post cholecystectomy. Report Dictated on --- Final --- Dictating Physician: MD PAYNE VLADIMIR Signed Date and Time: 12/06/2020 2:01 pm Signed by: MD PAYNE VLADIMIR Transcribed Date and Time: 12/06/2020 2:02 [facility] Work Phone: CT Abdomen/Pelvis w/ + w/o C [facility] 12-06-2020 CT Abdomen/Pelvis w/ + w/o Contrast Patient Name: SOCORRO GONSALES Computed Tomography ACCESSION EXAM DATE/TIME PROCEDURE ORDERING PROVIDER [id number] 12/06/2020 13:[address] Abdomen/Pelvis w/ ZEESHAN RAMSAY, + w/o Contrast DAVON L CPT code 93371 Q9967 Reason For Exam (CT Abdomen/Pelvis w/ + w/o Contrast) microscopic hematuria, dilation of right renal pelvis Report CT ABDOMEN AND PELVIS WITHOUT AND WITH CONTRAST - INCLUDING 3D UROGRAPHY CLINICAL INDICATION: Microscopic hematuria with dilatation of right renal pelvis. Scan Parameters: Transaxial sequence through the abdomen and pelvis initially without contrast with low-dose technique. Following intravenous injection of 38.5 mL of 350 mg% contrast followed by three minute delay and additional injection of the remaining 38.5 mL, post contrast sequence was performed. 15 minute delayed imaging was also performed.. Multiplanar and 3D MIP reconstruction was performed by the radiologist on an independent workstation. Dose reduction was employed with automated exposure control. COMPARISON: Pelvic ultrasound 12/04/2020, CT abdomen pelvis 12/03/2020 FINDINGS: Lung bases are essentially clear. Liver demonstrates homogeneous enhancement. Status post cholecystectomy. Spleen appears within normal limits as does the pancreas. No adrenal mass or nodules. Small drop clips from cholecystectomy along the right pericolic gutter and anterior to the right kidney likely incidental. Kidneys symmetrically enhance with fairly symmetric excretion of contrast into the right and left ureter there is slight right-sided pelviectasis with some degree of caliber change at the level of the right UPJ secondary to a prominent crossing vessel. No right or left hydroureter. No nephrolithiasis. Evaluation of the urinary bladder is somewhat limited due to under distention. Uterus and adnexa demonstrate a normal CT appearance for patient's age. No significant ascites. There are a few prominent loops of small bowel with air-fluid levels without evidence of obstruction. Prominent cecum distended with stool extends into the pelvis. Portions of a normal appendix are visualized. Evaluation involving portions of the colon particularly distally are limited due to under distention. No pneumatosis or pneumoperitoneum. No focal fluid collection. A few prominent mesenteric and retroperitoneal lymph nodes without bulky adenopathy. Major vessels enhance normally. Tiny fat-containing periumbilical hernia osseous structures are age. IMPRESSION: Computed Tomography Report 1. Mild right pelviectasis with caliber change at the level of the UPJ secondary to prominent crossing vessel. There however appears to be fairly symmetric excretion of contrast from both kidneys, therefore findings are of unclear clinical significance. No obstructive uropathy or nephrolithiasis. Suboptimal evaluation of the urinary bladder which is underdistended. 2. Prominent cecum distended with stool extends into the right pelvis. 3. Status post cholecystectomy. Report Dictated on Final Dictating Physician: MD PAYNE VLADIMIR Signed Date and Time: 12/06/2020 2:01 pm Signed by: MD PAYNE VLADIMIR Transcribed Date and Time: 12/06/2020 2:02 Normal [facility] Hemogramon 12-06-2020 Erythrocyte distribution width (RBC) [Ratio] 16.5 % High 11.5-14.5 [facility] Comment on above: Performed By: #### L FT3, HEMDF, BMP3, LACT3, LIPA4 #### [facility] [address] [place] [address] Hematocrit (Bld) [Volume fraction] 29.9 % Low 35.0-47.0 [facility] Comment on above: Performed By: #### L FT3, HEMDF, BMP3, LACT3, LIPA4 #### [facility] [address] [place] [address] Hemoglobin (Bld) [Mass/Vol] 9.7 g/dL Low 11.7-16.0 [facility] Comment on above: Performed By: #### L FT3, HEMDF, BMP3, LACT3, LIPA4 #### [facility] [address] [place] [address] MCH (RBC) [Entitic mass] 25.9 pg Low 26.0-34.0 [facility] Comment on above: Performed By: #### L FT3, HEMDF, BMP3, LACT3, LIPA4 #### [facility] [address] [place] [address] MCHC 32.4 % Normal 32.0-36.0 [facility] Comment on above: Performed By: #### L FT3, HEMDF, BMP3, LACT3, LIPA4 #### [facility] [address] [place] [address] MCV (RBC) [Entitic vol] 79.9 fL Normal 79.0-98.0 [facility] Comment on above: Performed By: #### L FT3, HEMDF, BMP3, LACT3, LIPA4 #### [facility] [address] [place] [address] Platelet mean volume (Bld) [Entitic vol] 7.8 fL Normal 7.4-10.4 [facility] Comment on above: Performed By: #### L FT3, HEMDF, BMP3, LACT3, LIPA4 #### [facility] [address] [place] [address] Platelets (Bld) [#/Vol] 272 10*3/uL Normal 140-440 [facility] Comment on above: Performed By: #### L FT3, HEMDF, BMP3, LACT3, LIPA4 #### [facility] [address] [place] [address] RBC (Bld) [#/Vol] 3.74 10*6/uL Low 3.80-5.20 [facility] Comment on above: Performed By: #### L FT3, HEMDF, BMP3, LACT3, LIPA4 #### [facility] [address] [place] [address] WBC (Bld) [#/Vol] 5.2 10*3/uL Normal 3.6-10.7 [facility] Comment on above: Performed By: #### L FT3, HEMDF, BMP3, LACT3, LIPA4 #### [facility] [address] [place] [address] Basic Metabolic Panelon 04-2 Anion gap [Moles/Vol] 4 mmol/L Normal 3-13 [facility] Comment on above: Performed By: #### L FT3, HEMDF, BMP3, LACT3, LIPA4 #### [facility] [address] [place] [address] Calcium [Mass/Vol] 8.9 mg/dL Normal 8.4-10.4 [facility] Comment on above: Performed By: #### L FT3, HEMDF, BMP3, LACT3, LIPA4 #### [facility] [address] [place] [address] CO2 [Moles/Vol] 25 mmol/L Normal 22-30 [facility] Comment on above: Performed By: #### L FT3, HEMDF, BMP3, LACT3, LIPA4 #### [facility] [address] [place] [address] Glucose [Mass/Vol] 103 mg/dL High 70-100 [facility] Comment on above: Performed By: #### L FT3, HEMDF, BMP3, LACT3, LIPA4 #### [facility] [address] [place] [address] Urea nitrogen [Mass/Vol] 13 mg/dL Normal 7-20 [facility] Comment on above: Performed By: #### L FT3, HEMDF, BMP3, LACT3, LIPA4 #### [facility] [address] [place] [address] Creatinine [Mass/Vol] 0.73 mg/dL Normal 0.52-1.25 [facility] Comment on above: Performed By: #### L FT3, HEMDF, BMP3, LACT3, LIPA4 #### [facility] [address] [place] [address] eGFR OTHER > 90.0 Normal >60 [facility] Comment on above: Result Comment: KDIG O guidelines provide the following GFR categories: Stage GFR(ml/min/1.73 m2) Terms G1 >=90 Normal or high G2 60-89 Mildly decreased* G3a 45-59 Mildly to moderately decreased G3b 30-44 Moderately to severely decreased G4 15-29 Severely decreased G5 <15 Kidney failure *Relative to young adult level. In the absence of evidence of kidney damage, neither GFR category G1 nor G2 fulfill the criteria for CKD. The CKD-EPI equation is validated in individuals 18 years of age and older. Currently the best equation for estimating glomerular filtration rate (GFR) from serum creatinine in children is the Bedside Gupta equation. It is less accurate in patients with extremes of muscle mass, restriction of dietary protein, ingestion of creatine, extra-renal metabolism of creatinine, or treatment with medications that affect renal tubular creatinine secretion. Performed By: #### L FT3, HEMDF, BMP3, LACT3, LIPA4 #### [facility] [address] [place] [address] GFR/1.73 sq M.predicted among blacks MDRD (S/P/Bld) [Vol rate/Area] mL/min/{1.73_m2} Normal >60 [facility] Comment on above: Performed By: #### L FT3, HEMDF, BMP3, LACT3, LIPA4 #### [facility] [address] [place] [address] Potassium [Moles/Vol] 3.9 mmol/L Normal 3.5-5.1 [facility] Comment on above: Performed By: #### L FT3, HEMDF, BMP3, LACT3, LIPA4 #### [facility] [address] [place] [address] Chloride [Moles/Vol] 107 mmol/L Normal 98-107 [facility] Comment on above: Performed By: #### L FT3, HEMDF, BMP3, LACT3, LIPA4 #### [facility] [address] [place] [address] Sodium [Moles/Vol] 135 mmol/L Normal 135-145 [facility] Comment on above: Performed By: #### L FT3, HEMDF, BMP3, LACT3, LIPA4 #### [facility] [address] [place] [address] Basic Metabolic PanelOrdered By: Lyndsay Baker on 12-05-2020 Anion gap [Moles/Vol] 4 mmol/L 3 - 13 mmol/L [facility] Work Phone: Calcium [Mass/Vol] 8.9 mg/dL 8.4 - 10. 4 mg/dL [facility] Work Phone: Chloride [Moles/Vol] 107 mmol/L 98 - 10 7 mmol/L [facility] Work Phone: CO2 [Moles/Vol] 25 mmol/L 22 - 30 mmol/L [facility] Work Phone: Creatinine [Mass/Vol] 0.73 mg/dL 0.52 - 1.25 mg/dL [facility] Work Phone: EGFR IF NonAfrican Japanese >90.0 >60 mL/min [facility] Work Phone: Comment on above: KDIGO guidelines pro vide the following GFR categories: Stage GFR(ml/min/1.73 m2) Terms G1 >=90 Normal or high G2 60-89 Mildly decreased* G3a 45-59 Mildly to moderately decreased G3b 30-44 Moderately to severely decreased G4 15-29 Severely decreased G5 <15 Kidney failure *Relative to young adult level. In the absence of evidence of kidney damage, neither GFR category G1 nor G2 fulfill the criteria for CKD. The CKD-EPI equation is validated in individuals 18 years of age and older. Currently the best equation for estimating glomerular filtration rate (GFR) from serum creatinine in children is the Bedside Gupta equation. It is less accurate in patients with extremes of muscle mass, restriction of dietary protein, ingestion of creatine, extra-renal metabolism of creatinine, or treatment with medications that affect renal tubular creatinine secretion. GFR/1.73 sq M.predicted among blacks MDRD (S/P/Bld) [Vol rate/Area] mL/min/{1.73_m2} >60 mL/min [facility] Work Phone: Glucose [Mass/Vol] 103 mg/dL High 70 - 100 mg/dL [facility] Work Phone: Interpretation and review of laboratory results Abnormal [facility] Work Phone: Potassium [Moles/Vol] 3.9 mmol/L 3.5 - 5.1 mmol/L [facility] Work Phone: Sodium [Moles/Vol] 135 mmol/L 135 - 145 mmol/L [facility] Work Phone: Urea nitrogen (BldV) [Mass/Vol] 13 mg/dL 7 - 20 mg/dL [facility] Work Phone: Test Performed by [facility], [address] [place], [place] [address] [facility] Work Phone: 17 CBCOrdered By: Lyndsay Baker on 12-05-2020 Hematocrit (Bld) [Volume fraction] 30.9 % Low 35.0 - 47.0 % [facility] Work Phone: Hemoglobin.gastrointe stinal spec 1 Ql (Stl) 10.2 g/dL Low 11.7 - 16.0 g/dL [facility] Work Phone: Interpretation and review of laboratory results Abnormal [facility] Work Phone: ) MCH (RBC) [Entitic mass] 25.8 pg Low 26.0 - 34.0 pg [facility] Work Phone: ) MCHC (RBC) [Mass/Vol] 33.1 % 32.0 - 36.0 % [facility] Work Phone: ) MCV (RBC) [Entitic vol] 77.8 fL Low 79.0 - 98.0 fL [facility] Work Phone: ) Platelet distribution width (Bld) [Ratio] 16.3 % High 11.5 - 14.5 % [facility] Work Phone: ) Platelet mean volume (Bld) [Entitic vol] 7.7 fL 7.4 - 10.4 fL [facility] Work Phone: ) Platelets (Bld) [#/Vol] 270 10*3/uL 140 - 440 10*3/uL [facility] Work Phone: ) RBC (Bld) [#/Vol] 3.97 10*6/uL 3.80 - 5.2 0 10*6/uL [facility] Work Phone: ) 222 WBC (Bld) [#/Vol] 5.7 10*3/uL 3.6 - 10.7 10*3/uL [facility] Work Phone: Test Performed by [facility], [address], [place], [place] [address] [facility] Work Phone: [phone] CULTURE URINEon 12-05-2020 CULTURE URINE CULTURE URINE --> Status: F Normal urogenital danna present. Normal [facility] Comment on above: Performed By: #### M G3, BMP3, HEMDF #### [facility] [address] [place] [address] Complete Urinalysison 2020 Appearance (U) Turbid Abnormal Clear [facility] Comment on above: Result Comment: . Performed By: #### M G3, BMP3, HEMDF #### [facility] [address] [place] [address] Bilirubin,Urine Negative Normal Negative [facility] Comment on above: Result Comment: . Performed By: #### M G3, BMP3, HEMDF #### [facility] [address] [place] [address] Color (U) Yellow Normal Lt. Yellow [facility] Comment on above: Result Comment: . Performed By: #### M G3, BMP3, HEMDF #### [facility] [address] [place] [address] Glucose Ql (U) Normal Normal Normal (<70) [facility] Comment on above: Result Comment: . Performed By: #### M G3, BMP3, HEMDF #### [facility] [address] [place] [address] Ketone,Urine Negative Normal Negative [facility] Comment on above: Result Comment: . Performed By: #### M G3, BMP3, HEMDF #### [facility] [address] [place] [address] Leukocytes,Urine 25 Reyes/uL Abnormal Negative [facility] Comment on above: Result Comment: . Performed By: #### M G3, BMP3, HEMDF #### [facility] [address] [place] [address] Mucous Threads Many Abnormal Negative [facility] Comment on above: Result Comment: . Performed By: #### M G3, BMP3, HEMDF #### [facility] [address] [place] [address] Nitrites,Urine Negative Normal Negative [facility] Comment on above: Result Comment: . Performed By: #### M G3, BMP3, HEMDF #### [facility] [address] [place] [address] Occult Blood,Urine 0.5 mg/dL Abnormal Negative [facility] Comment on above: Result Comment: . Performed By: #### M G3, BMP3, HEMDF #### [facility] [address] [place] [address] pH,Urine 6.0 Normal 5.0-8.0 [facility] Comment on above: Result Comment: . Performed By: #### M G3, BMP3, HEMDF #### [facility] [address] [place] [address] Protein (U) [Mass/Vol] 20 mg/dL Abnormal Negative [facility] Comment on above: Result Comment: . Performed By: #### M G3, BMP3, HEMDF #### [facility] [address] [place] [address] RBC, Urine 6 - 10 Abnormal 0-2 [facility] Comment on above: Result Comment: . Performed By: #### M G3, BMP3, HEMDF #### [facility] [address] [place] [address] Specific [place],Urine 1.030 Normal 1.005 - 1.030 [facility] Comment on above: Result Comment: . Performed By: #### M G3, BMP3, HEMDF #### [facility] [address] [place] [address] Squamous Epithelial 6 - 10 Abnormal 3-5 [facility] Comment on above: Result Comment: . Performed By: #### M G3, BMP3, HEMDF #### [facility] [address] [place] [address] Urobilinogen,Urine Normal Normal Normal (0-1) [facility] Comment on above: Result Comment: . Performed By: #### M G3, BMP3, HEMDF #### [facility] [address] [place] [address] WBC, Urine 3 - 5 Normal 0-5 [facility] Comment on above: Result Comment: . Performed By: #### M G3, BMP3, HEMDF #### [facility] [address] [place] [address] Culture, UrineOrdered By: Shahram Cifuentes on 12-05-2020 Bacteria identified Cx Nom (U) Normal urogenital danna present. [facility] Work Phone: Test Performed by [facility], [address] [place] [id number] [facility] Work Phone: Hemogramon 12-05-2020 Erythrocyte distribution width (RBC) [Ratio] 16.3 % High 11.5-14.5 [facility] Comment on above: Performed By: #### L FT3, HEMDF, BMP3, LACT3, LIPA4 #### [facility] [address] [place] [address] Hematocrit (Bld) [Volume fraction] 30.9 % Low 35.0-47.0 [facility] Comment on above: Performed By: #### L FT3, HEMDF, BMP3, LACT3, LIPA4 #### [facility] [address] [place] [address] Hemoglobin (Bld) [Mass/Vol] 10.2 g/dL Low 11.7-16.0 [facility] Comment on above: Performed By: #### L FT3, HEMDF, BMP3, LACT3, LIPA4 #### [facility] [address] [place] [address] MCH (RBC) [Entitic mass] 25.8 pg Low 26.0-34.0 [facility] Comment on above: Performed By: #### L FT3, HEMDF, BMP3, LACT3, LIPA4 #### [facility] [address] [place] [address] MCHC 33.1 % Normal 32.0-36.0 [facility] Comment on above: Performed By: #### L FT3, HEMDF, BMP3, LACT3, LIPA4 #### [facility] [address] [place] [address] MCV (RBC) [Entitic vol] 77.8 fL Low 79.0-98.0 [facility] Comment on above: Performed By: #### L FT3, HEMDF, BMP3, LACT3, LIPA4 #### [facility] [address] [place] [address] Platelet mean volume (Bld) [Entitic vol] 7.7 fL Normal 7.4-10.4 [facility] Comment on above: Performed By: #### L FT3, HEMDF, BMP3, LACT3, LIPA4 #### [facility] [address] [place] [address] Platelets (Bld) [#/Vol] 270 10*3/uL Normal 140-440 [facility] Comment on above: Performed By: #### L FT3, HEMDF, BMP3, LACT3, LIPA4 #### [facility] [address] [place] [address] RBC (Bld) [#/Vol] 3.97 10*6/uL Normal 3.80-5.20 [facility] Comment on above: Performed By: #### L FT3, HEMDF, BMP3, LACT3, LIPA4 #### [facility] [address] [place] [address] WBC (Bld) [#/Vol] 5.7 10*3/uL Normal 3.6-10.7 [facility] Comment on above: Performed By: #### L FT3, HEMDF, BMP3, LACT3, LIPA4 #### [facility] [employer] [facility] [address] [place] [address] UrinalysisOrdered By: Lyndsay Baker on 12-05-2020 Appearance (U) Turbid Abnormal Clear NA [facility] Work Phone: Comment on above: . Bilirubin Urine Negative Negative mg/dL [facility] Work Phone: [phone] Comment on above: . Color (U) Yellow Lt. Yellow NA [employer] Work Phone: [phone] Comment on above: . Glucose, Ur Normal Normal (<70) mg/dL [facility] Work Phone: [phone] Comment on above: . Interpretation and review of laboratory results Abnormal [facility] Work Phone: Ketones Ql (U) Negative Negative mg/dL [facility] Work Phone: [phone] Comment on above: . LEUKOCYTES, UA 25 Abnormal Negative Reyes/uL [facility] Work Phone: Comment on above: . Mucous Threads Many Abnormal Negative /[LPF] [employer] Work Phone: Comment on above: . Nitrite, Urine Negative Negative NA [facility] Work Phone: Comment on above: . Occult Blood,Urine 0.5 mg/dL Abnormal Negative [facility] Work Phone: [phone] Comment on above: . pH (U) 6.0 [pH] [facility] Work Phone: [phone] Comment on above: . Protein (U) [Mass/Vol] 20 mg/dL Abnormal Negative [facility] Work Phone: Comment on above: . RBC, UA 6-10 Abnormal 0 - 2 /[HPF] [facility] Work Phone: Comment on above: . Specific [place], Urine 1.030 [facility] Work Phone: [phone] Comment on above: . Squam Epithel, UA 6-10 Abnormal 3 - 5 /[HPF] [facility] Work Phone: [phone] Comment on above: . Urobilinogen, Urine Normal Normal ( 0-1) mg/dL [facility] Work Phone: [phone] Comment on above: . WBC, UA 3-5 0 - 5 /[HPF] [facility] Work Phone: Comment on above: . Test Performed by [facility], [address] [place] [id number] [facility] Work Phone: Blood Occult Stool Screen #1 Ordered By: Nava Stearns on 12-04-2020 Hemoglobin.gastrointe stinal Ql (Stl) Negative Negative NA [facility] Work Phone: C. Trachomatis / N. Gonorrho eae, DNAOrdered By: Marlen Lockhart on 12-04-2020 C. trachomatis DNA ALLISON+probe Ql (Genital specimen) NOT Detected Chlamydia trachomatis Nucleic Acid NOT Detected by DNA Amplification using the Vhall System. Culture is the only recommended test in medical-legal cases such as suspected child abuse or molestation. [facility] Work Phone: N. gonorrhoeae DNA ALLISON+probe Ql (Unsp spec) NOT Detected Neisseria gonorrhoeae Nucleic Acid NOT Detected by DNA Amplification using the Vhall System. Culture is the only recommended test in medical-legal cases such as suspected child abuse or molestation. [facility] Work Phone: Test Performed by [address] [address] [facility] Work Phone: C. difficile toxin Molecular Ordered By: Leno Cifuentes on 12-04-2020 C. difficile toxin Molecular NEGATIVE Methodology - Real Time PCR (Vhall) Clinical judgement must be used when interpreting results. Positive results may reflect colonization. Indeterminate results suggest a new specimen be submitted. [facility] Work Phone: [phone] [facility] Work Phone: CBCOrdered By: Leno thomas 12-04-2020 Hematocrit (Bld) [Volume fraction] 24.6 % Low 35.0 - 47.0 % [facility] Work Phone: Hemoglobin.gastrointe stinal spec 1 Ql (Stl) 7.9 g/dL Low 11.7 - 16.0 g/dL [facility] Work Phone: MCH (RBC) [Entitic mass] 25.8 pg Low 26.0 - 34.0 pg [facility] Work Phone: MCHC (RBC) [Mass/Vol] 32.0 % 32.0 - 36.0 % [facility] Work Phone: MCV (RBC) [Entitic vol] 80.4 fL 79.0 - 98.0 fL [facility] Work Phone: Platelet distribution width (Bld) [Ratio] 16.5 % High 11.5 - 14.5 % [facility] Work Phone: Platelet mean volume (Bld) [Entitic vol] 7.7 fL 7.4 - 10.4 fL [facility] Work Phone: Platelets (Bld) [#/Vol] 220 10*3/uL 140 - 440 10*3/uL [employer] Work Phone: RBC (Bld) [#/Vol] 3.06 10*6/uL Low 3.80 - 5.2 0 10*6/uL [facility] Work Phone: WBC (Bld) [#/Vol] 5.2 10*3/uL 3.6 - 10.7 10*3/uL [facility] Work Phone: Test Performed by [facility], [address] [place], [place] [address] [facility] Work Phone: Chlamydia and GC PCR Panelon 12-04-2020 Chlamydia and GC PCR Panel Chlamydia trachomatis PCR --> Status: F NOT Detected Chlamydia trachomatis Nucleic Acid NOT Detected by DNA Amplification using the Cepheid System. Culture is the only recommended test in medical-legal cases such as suspected child abuse or molestation. Chlamydia trachomatis Nucleic Acid NOT Detected by DNA Amplification using the Cepheid System. Culture is the only recommended test in medical-legal cases such as suspected child abuse or molestation. Neisseria gonorrhoeae PCR --> Status: F NOT Detected Neisseria gonorrhoeae Nucleic Acid NOT Detected by DNA Amplification using the Cepheid System. Culture is the only recommended test in medical-legal cases such as suspected child abuse or molestation. Neisseria gonorrhoeae Nucleic Acid NOT Detected by DNA Amplification using the Cepheid System. Culture is the only recommended test in medical-legal cases such as suspected child abuse or molestation. Normal [facility] Comment on above: Performed By: #### C TNGP #### [facility] [address] [place] [address] Clostridium difficile PCRon 12-04-2020 Clostridium difficile PCR Clostridium difficile by PCR --> Status: F NEGATIVE Methodology - Real Time PCR (Cepheid) Clinical judgement must be used when interpreting results. Positive results may reflect colonization. Indeterminate results suggest a new specimen be submitted. Methodology - Real Time PCR (Cepheid) Clinical judgement must be used when interpreting results. Positive results may reflect colonization. Indeterminate results suggest a new specimen be submitted. Normal [facility] Comment on above: Performed By: #### M G3, BMP3, HEMDF #### [facility] [address] [place] [address] Comp Panel with Mg Reflexon 12-04-2020 ALT [Catalytic activity/Vol] 9 U/L Normal 0-34 [facility] Comment on above: Result Comment: The ALT test is performed by an updated assay method. Please note that the reference intervals have been changed and are now sex specific. Performed By: #### L FT3, HEMDF, BMP3, LACT3, LIPA4 #### [facility] [address] [place] [address] Calcium [Mass/Vol] 8.9 mg/dL Normal 8.4-10.4 [facility] Comment on above: Performed By: #### L FT3, HEMDF, BMP3, LACT3, LIPA4 #### [facility] [address] [place] [address] ALP [Catalytic activity/Vol] 52 U/L Normal 38-126 [facility] Comment on above: Performed By: #### L FT3, HEMDF, BMP3, LACT3, LIPA4 #### [facility] [address] [place] [address] Anion gap [Moles/Vol] 7 mmol/L Normal 3-13 [facility] Comment on above: Performed By: #### L FT3, HEMDF, BMP3, LACT3, LIPA4 #### [facility] [address] [place] [address] AST [Catalytic activity/Vol] 21 U/L Normal 15-46 [facility] Comment on above: Performed By: #### L FT3, HEMDF, BMP3, LACT3, LIPA4 #### [facility] [address] [place] [address] Bilirubin [Mass/Vol] 0.5 mg/dL Normal 0.2-1.3 [facility] Comment on above: Performed By: #### L FT3, HEMDF, BMP3, LACT3, LIPA4 #### [facility] [address] [place] [address] CO2 [Moles/Vol] 20 mmol/L Low 22-30 [facility] Comment on above: Performed By: #### L FT3, HEMDF, BMP3, LACT3, LIPA4 #### [facility] [address] [place] [address] Creatinine [Mass/Vol] 0.65 mg/dL Normal 0.52-1.25 [facility] Comment on above: Performed By: #### L FT3, HEMDF, BMP3, LACT3, LIPA4 #### [facility] [address] [place] [address] eGFR OTHER > 90.0 Normal >60 [facility] Comment on above: Result Comment: KDIG O guidelines provide the following GFR categories: Stage GFR(ml/min/1.73 m2) Terms G1 >=90 Normal or high G2 60-89 Mildly decreased* G3a 45-59 Mildly to moderately decreased G3b 30-44 Moderately to severely decreased G4 15-29 Severely decreased G5 <15 Kidney failure *Relative to young adult level. In the absence of evidence of kidney damage, neither GFR category G1 nor G2 fulfill the criteria for CKD. The CKD-EPI equation is validated in individuals 18 years of age and older. Currently the best equation for estimating glomerular filtration rate (GFR) from serum creatinine in children is the Bedside Gupta equation. It is less accurate in patients with extremes of muscle mass, restriction of dietary protein, ingestion of creatine, extra-renal metabolism of creatinine, or treatment with medications that affect renal tubular creatinine secretion. Performed By: #### L FT3, HEMDF, BMP3, LACT3, LIPA4 #### [facility] [address] [place] [address] GFR/1.73 sq M.predicted among blacks MDRD (S/P/Bld) [Vol rate/Area] mL/min/{1.73_m2} Normal >60 [facility] Comment on above: Performed By: #### L FT3, HEMDF, BMP3, LACT3, LIPA4 #### [facility] [address] [place] [address] Glucose [Mass/Vol] 91 mg/dL Normal 70-100 [facility] Comment on above: Performed By: #### L FT3, HEMDF, BMP3, LACT3, LIPA4 #### [facility] [address] [facility] [place] [address] Protein [Mass/Vol] 7.4 g/dL Normal 6.3-8.2 [facility] Comment on above: Performed By: #### L FT3, HEMDF, BMP3, LACT3, LIPA4 #### [facility] [address] [place] [address] Urea nitrogen [Mass/Vol] 13 mg/dL Normal 7-20 [facility] Comment on above: Performed By: #### L FT3, HEMDF, BMP3, LACT3, LIPA4 #### [facility] [address] [place] [address] Potassium [Moles/Vol] 4.0 mmol/L Normal 3.5-5.1 [facility] Comment on above: Performed By: #### L FT3, HEMDF, BMP3, LACT3, LIPA4 #### [facility] [address] [place] [address] Sodium [Moles/Vol] 136 mmol/L Normal 135-145 [facility] Comment on above: Performed By: #### L FT3, HEMDF, BMP3, LACT3, LIPA4 #### [facility] [address] [place] [address] Albumin [Mass/Vol] 4.2 g/dL Normal 3.5-5.0 [facility] Comment on above: Performed By: #### L FT3, HEMDF, BMP3, LACT3, LIPA4 #### [facility] [address] [place] [address] Chloride [Moles/Vol] 110 mmol/L High 98-107 [facility] Comment on above: Performed By: #### L FT3, HEMDF, BMP3, LACT3, LIPA4 #### [facility] [address] [place] [address] Comprehensive Metabolic Pane l w/ Reflex to MGOrdered By: Leno Cifuentes on 12-04-2020 Albumin [Mass/Vol] 4.2 g/dL 3.5 - 5.0 g/dL [facility] Work Phone: ALP (Bld) [Catalytic activity/Vol] 52 U/L 38 - 126 U/L [facility] Work Phone: ALT [Catalytic activity/Vol] 9 U/L 0 - 34 U/L [facility] Work Phone: Comment on above: The ALT test is perf ormed by an updated assay method. Please note that the reference intervals have been changed and are now sex specific. Anion gap [Moles/Vol] 7 mmol/L 3 - 13 mmol/L [facility] Work Phone: AST [Catalytic activity/Vol] 21 U/L 15 - 46 U/L [facility] Work Phone: Bilirubin [Mass/Vol] 0.5 mg/dL 0.2 - 1 .3 mg/dL [facility] Work Phone: Calcium [Mass/Vol] 8.9 mg/dL 8.4 - 10. 4 mg/dL [facility] Work Phone: Chloride [Moles/Vol] 110 mmol/L High 98 - 10 7 mmol/L [facility] Work Phone: CO2 [Moles/Vol] 20 mmol/L Low 22 - 30 mmol/L [facility] Work Phone: [phone] Creatinine [Mass/Vol] 0.65 mg/dL 0.52 - 1.25 mg/dL [facility] Work Phone: EGFR IF NonAfrican Japanese >90.0 >60 mL/min [facility] Work Phone: Comment on above: KDIGO guidelines pro vide the following GFR categories: Stage GFR(ml/min/1.73 m2) Terms G1 >=90 Normal or high G2 60-89 Mildly decreased* G3a 45-59 Mildly to moderately decreased G3b 30-44 Moderately to severely decreased G4 15-29 Severely decreased G5 <15 Kidney failure *Relative to young adult level. In the absence of evidence of kidney damage, neither GFR category G1 nor G2 fulfill the criteria for CKD. The CKD-EPI equation is validated in individuals 18 years of age and older. Currently the best equation for estimating glomerular filtration rate (GFR) from serum creatinine in children is the Bedside Gupta equation. It is less accurate in patients with extremes of muscle mass, restriction of dietary protein, ingestion of creatine, extra-renal metabolism of creatinine, or treatment with medications that affect renal tubular creatinine secretion. Free PSA/Total PSA [Mass fraction] 7.4 g/dL 6.3 - 8.2 g/dL [facility] Work Phone: GFR/1.73 sq M.predicted among blacks MDRD (S/P/Bld) [Vol rate/Area] mL/min/{1.73_m2} >60 mL/min [facility] Work Phone: Glucose [Mass/Vol] 91 mg/dL 70 - 100 mg/dL [facility] Work Phone: Potassium [Moles/Vol] 4.0 mmol/L 3.5 - 5.1 mmol/L [facility] Work Phone: Sodium [Moles/Vol] 136 mmol/L 135 - 145 mmol/L [facility] Work Phone: Urea nitrogen (BldV) [Mass/Vol] 13 mg/dL 7 - 20 mg/dL [facility] Work Phone: Fecal Occult,Stool Single Sp econ 12-04-2020 Fecal Occult,Stool Single Spec Negative Normal Negative [facility] Comment on above: Performed By: #### L FT3, HEMDF, BMP3, LACT3, LIPA4 #### [facility] [address] [place] [address] GASTROINTESTINAL PCR PANELon 12-04-2020 GASTROINTESTINAL PCR PANEL GASTROINTESTINAL PCR PANEL --> Status: F NEGATIVE: No targets were detected by the [employer] Gastrointestinal PCR Panel. _ The [employer] Gastrointestinal PCR Panel can detect the following targets: Campylobacter, Plesiomonas shigelloides, Salmonella, Vibrio species, Vibrio cholerae, Yersinia enterocolitica, Shiga toxin-producing E coli (STEC) including E coli O157, Enterotoxigenic E coli (ETEC), Shigella/Enteroinvasive E coli (EIEC), Cryptosporidium, Cyclospora cayetanensis, Entamoeba histolytica, Giardia lamblia, Adenovirus F 40/41, Astrovirus, Norovirus GI/GII, Rotavirus A, Sapovirus Gastrointestinal PCR Panel. _ The [employer] Gastrointestinal PCR Panel can detect the following targets: Campylobacter, Plesiomonas shigelloides, Salmonella, Vibrio species, Vibrio cholerae, Yersinia enterocolitica, Shiga toxin-producing E coli (STEC) including E coli O157, Enterotoxigenic E coli (ETEC), Shigella/Enteroinvasive E coli (EIEC), Cryptosporidium, Cyclospora cayetanensis, Entamoeba histolytica, Giardia lamblia, Adenovirus F 40/41, Astrovirus, Norovirus GI/GII, Rotavirus A, Sapovirus Normal [facility] Comment on above: Performed By: #### B FGI #### [address] [address] Gastrointestinal Panel, Mole cularOrdered By: Leno Cifuentes on 12-04-2020 Gastrointestinal PCR Panel NEGATIVE: No targets were detected by the [employer] Gastrointestinal PCR Panel. _ The [employer] Gastrointestinal PCR Panel can detect the following targets: Campylobacter, Plesiomonas shigelloides, Salmonella, Vibrio species, Vibrio cholerae, Yersinia enterocolitica, Shiga toxin-producing E coli (STEC) including E coli O157, Enterotoxigenic E coli (ETEC), Shigella/Enteroinvasive E coli (EIEC), Cryptosporidium, Cyclospora cayetanensis, Entamoeba histolytica, Giardia lamblia, Adenovirus F 40/41, Astrovirus, Norovirus GI/GII, Rotavirus A, Sapovirus [facility] Work Phone: Test Performed by [facility], [address] [place] [id number] [place] [address] Work Phone: Hemoglobin AND HematocritOrd ered By: Nava Stearns on 12-04-2020 Hematocrit (Bld) [Volume fraction] 31.8 % Low 35.0-47.0 [facility] Work Phone: Comment on above: Performed By: #### L FT3, HEMDF, BMP3, LACT3, LIPA4 #### [facility] [employer] [facility] [address] [place] [address] Hemoglobin AND Hematocriton 12-04-2020 Hemoglobin (Bld) [Mass/Vol] 10.5 g/dL Low 11.7-16.0 [facility] Comment on above: Performed By: #### L FT3, HEMDF, BMP3, LACT3, LIPA4 #### [facility] [address] [place] [address] Hemoglobin and Hematocrit, B loodOrdered By: Nava Stearns on 12-04-2020 Hemoglobin.gastrointe stinal spec 1 Ql (Stl) 10.5 g/dL Low 11.7 - 16.0 g/dL [facility] Work Phone: Hemogramon 12-04-2020 Erythrocyte distribution width (RBC) [Ratio] 16.5 % High 11.5-14.5 [facility] Comment on above: Performed By: #### L FT3, HEMDF, BMP3, LACT3, LIPA4 #### [facility] [address] [place] [address] Hematocrit (Bld) [Volume fraction] 24.6 % Low 35.0-47.0 [facility] Comment on above: Performed By: #### L FT3, HEMDF, BMP3, LACT3, LIPA4 #### [facility] [address] [place] [address] Hemoglobin (Bld) [Mass/Vol] 7.9 g/dL Low 11.7-16.0 [facility] Comment on above: Performed By: #### L FT3, HEMDF, BMP3, LACT3, LIPA4 #### [facility] [address] [place] [address] MCH (RBC) [Entitic mass] 25.8 pg Low 26.0-34.0 [facility] Comment on above: Performed By: #### L FT3, HEMDF, BMP3, LACT3, LIPA4 #### [facility] [address] [place] [address] MCHC 32.0 % Normal 32.0-36.0 [facility] Comment on above: Performed By: #### L FT3, HEMDF, BMP3, LACT3, LIPA4 #### [facility] [address] [place] [address] MCV (RBC) [Entitic vol] 80.4 fL Normal 79.0-98.0 [facility] Comment on above: Performed By: #### L FT3, HEMDF, BMP3, LACT3, LIPA4 #### [facility] [address] [place] [address] Platelet mean volume (Bld) [Entitic vol] 7.7 fL Normal 7.4-10.4 [facility] Comment on above: Performed By: #### L FT3, HEMDF, BMP3, LACT3, LIPA4 #### [facility] [address] [place] [address] Platelets (Bld) [#/Vol] 220 10*3/uL Normal 140-440 [facility] Comment on above: Performed By: #### L FT3, HEMDF, BMP3, LACT3, LIPA4 #### [facility] [address] [place] [address] RBC (Bld) [#/Vol] 3.06 10*6/uL Low 3.80-5.20 [facility] Comment on above: Performed By: #### L FT3, HEMDF, BMP3, LACT3, LIPA4 #### [facility] [address] [place] [address] WBC (Bld) [#/Vol] 5.2 10*3/uL Normal 3.6-10.7 [facility] Comment on above: Performed By: #### L FT3, HEMDF, BMP3, LACT3, LIPA4 #### [facility] [address] [place] [address] Lipaseon 12-04-2020 Lipase [Catalytic activity/Vol] 37 U/L Normal 23-300 [facility] Comment on above: Performed By: #### L FT3, HEMDF, BMP3, LACT3, LIPA4 #### [facility] [address] [place] [address] LipaseOrdered By: Leno patino on 12-04-2020 Lipase [Catalytic activity/Vol] 37 U/L 23 - 300 U/L [facility] Work Phone: No Panel InformationOrdered By: Nava Stearns on 12-04-2020 Test Performed by [facility], [address] [place] [address] [facility] Work Phone: Interpretation and review of laboratory results Abnormal [facility] Work Phone: No Panel InformationOrdered By: Leno Cifuentes on 12-04-2020 Test Performed by [facility], [address] [place] [address] [facility] Work Phone: PROCALCITONINOrdered By: Lj Cifuentes on 12-04-2020 Interpretation See Below [facility] Work Phone: Comment on above: PCT <0.50 = Low risk of severe sepsis and/or septic shock. PCT >2.00 = High risk of severe sepsis and/or septic shock. Procalcitonin <0.10 <0.10 ng/mL [facility] Work Phone: Test Performed by [facility], [address] [place] [address] [facility] Work Phone: Procalcitoninon 12-04-2020 Procalcitonin < 0.10 Normal <0.10 [facility] Comment on above: Performed By: #### L FT3, HEMDF, BMP3, LACT3, LIPA4 #### [facility] [employer] [facility] [address] [place] [address] US PELVIS COMPLETE NON-OB TR ANSABDOMINAL AND TRANSVAGINALOrdered By: Jaguar Jansen on 12-04-2020 Patient Name: SOCORRO ORELLANA Ultrasound ACCESSION EXAM DATE/TIME PROCEDURE ORDERING PROVIDER [id number] 12/04/2020 14:53 EDT US Pelvis TA/TV Natacha JANSEN JEFFREY D CPT code [id number] Reason For Exam (US Pelvis TA/TV) RLQ pain Report Transabdominal and transvaginal ultrasound pelvis CLINICAL INDICATION: Right lower quadrant pain Uterus is retroverted and measures approximately 7.3 x 4.4 x 6.9 cm. No focal myometrial masses are noted. Patient has a trilaminar endometrium with thickness of 1.2 cm, probably mid menstrual phase. No endometrial fluid is noted. Right and left ovaries measure 4.4 x 2.3 x 2.8 cm and 3.4 x 1.9 x 2.2 cm respectively. Arterial Doppler waveforms were obtained from both ovaries. Both ovaries contain follicles, with right ovarian follicle slightly larger in size. No free intrapelvic fluid is noted. Incidentally there is a large caliber bowel loop noted in the right adnexa with internal content. Correlating with CT abdomen pelvis from 12/03/2020 this appears to represent intrapelvic location of the cecum. IMPRESSION: Normal ultrasound pelvis with endometrial and ovarian features of mid menstrual phase Large caliber segment of bowel in the right adnexa appears to correlate with cecum on recent CT Report Dictated on --- Final --- Dictating Physician: MD BARKER DIANE Signed Date and Time: 12/04/2020 3:31 pm Signed by: MD BARKER DIANE Transcribed Date and Time: 12/04/2020 3:32 [facility] Work Phone: Reynaldo, [facility] Incoming Radiology Results From [facility] - 12/04/2020 3:32 PM EDT Patient Name: SOCORRO GONSALES Ultrasound ACCESSION EXAM DATE/TIME PROCEDURE ORDERING PROVIDER [id number] 12/04/2020 14:53 EDT US Pelvis TA/TV Natacha JANSEN JEFFREY D CPT code [id number] Reason For Exam (US Pelvis TA/TV) RLQ pain Report Transabdominal and transvaginal ultrasound pelvis CLINICAL INDICATION: Right lower quadrant pain Uterus is retroverted and measures approximately 7.3 x 4.4 x 6.9 cm. No focal myometrial masses are noted. Patient has a trilaminar endometrium with thickness of 1.2 cm, probably mid menstrual phase. No endometrial fluid is noted. Right and left ovaries measure 4.4 x 2.3 x 2.8 cm and 3.4 x 1.9 x 2.2 cm respectively. Arterial Doppler waveforms were obtained from both ovaries. Both ovaries contain follicles, with right ovarian follicle slightly larger in size. No free intrapelvic fluid is noted. Incidentally there is a large caliber bowel loop noted in the right adnexa with internal content. Correlating with CT abdomen pelvis from 12/03/2020 this appears to represent intrapelvic location of the cecum. IMPRESSION: Normal ultrasound pelvis with endometrial and ovarian features of mid menstrual phase Large caliber segment of bowel in the right adnexa appears to correlate with cecum on recent CT Report Dictated on --- Final --- Dictating Physician: MD BARKER DIANE Signed Date and Time: 12/04/2020 3:31 pm Signed by: MD BARKER DIANE Transcribed Date and Time: 12/04/2020 3:32 [facility] Work Phone: US Pelvis TA/TVon 12-04-2020 US Pelvis TA/TV Patient Name: SOCORRO ORELLANA Ultrasound ACCESSION EXAM DATE/TIME PROCEDURE ORDERING PROVIDER [id number] 12/04/2020 14:53 EDT US Pelvis TA/TV Natacha JANSEN JEFFREY D CPT code [id number] Reason For Exam (US Pelvis TA/TV) RLQ pain Report Transabdominal and transvaginal ultrasound pelvis CLINICAL INDICATION: Right lower quadrant pain Uterus is retroverted and measures approximately 7.3 x 4.4 x 6.9 cm. No focal myometrial masses are noted. Patient has a trilaminar endometrium with thickness of 1.2 cm, probably mid menstrual phase. No endometrial fluid is noted. Right and left ovaries measure 4.4 x 2.3 x 2.8 cm and 3.4 x 1.9 x 2.2 cm respectively. Arterial Doppler waveforms were obtained from both ovaries. Both ovaries contain follicles, with right ovarian follicle slightly larger in size. No free intrapelvic fluid is noted. Incidentally there is a large caliber bowel loop noted in the right adnexa with internal content. Correlating with CT abdomen pelvis from 12/03/2020 this appears to represent intrapelvic location of the cecum. IMPRESSION: Normal ultrasound pelvis with endometrial and ovarian features of mid menstrual phase Large caliber segment of bowel in the right adnexa appears to correlate with cecum on recent CT Report Dictated on Final Dictating Physician: MD BARKER DIANE Signed Date and Time: 12/04/2020 3:31 pm Signed by: MD BRAKER DIANE Transcribed Date and Time: 12/04/2020 3:32 Normal [facility] VAGINAL PATHOGENS DNA PANELO rdered By: Marlen Lockhart on 12-04-2020 Bacterial Vaginosis Markers Negative [facility] Work Phone: [place] GALABRATA Negative [facility] Work Phone: Austin Krusei Negative [facility] Work Phone: [place] SPP. Negative [facility] Work Phone: Trichomonas vaginalis Negative Expected Value: Negative Method: Real Time PCR by BD-MAX [facility] Work Phone: Test Performed by [facility], [address] [place] [address], [place] [address] Use UVE Collection Kit [facility] Work Phone: Basic Metabolic Panelon 04-2 Anion gap [Moles/Vol] 9 mmol/L Normal 3-13 [facility] Comment on above: Performed By: #### L FT3, HEMDF, BMP3, LACT3, LIPA4 #### [facility] [address] [place] [address] Calcium [Mass/Vol] 9.9 mg/dL Normal 8.4-10.4 [facility] Comment on above: Performed By: #### L FT3, HEMDF, BMP3, LACT3, LIPA4 #### [facility] [address] [place] [address] CO2 [Moles/Vol] 21 mmol/L Low 22-30 [facility] Comment on above: Performed By: #### L FT3, HEMDF, BMP3, LACT3, LIPA4 #### [facility] [address] [place] [address] Glucose [Mass/Vol] 89 mg/dL Normal 70-100 [facility] Comment on above: Performed By: #### L FT3, HEMDF, BMP3, LACT3, LIPA4 #### [facility] [address] [place] [address] Urea nitrogen [Mass/Vol] 13 mg/dL Normal 7-20 [facility] Comment on above: Performed By: #### L FT3, HEMDF, BMP3, LACT3, LIPA4 #### [facility] [address] [place] [address] Creatinine [Mass/Vol] 0.75 mg/dL Normal 0.52-1.25 [facility] Comment on above: Performed By: #### L FT3, HEMDF, BMP3, LACT3, LIPA4 #### [facility] [address] [place] [address] eGFR OTHER > 90.0 Normal >60 [facility] Comment on above: Result Comment: KDIG O guidelines provide the following GFR categories: Stage GFR(ml/min/1.73 m2) Terms G1 >=90 Normal or high G2 60-89 Mildly decreased* G3a 45-59 Mildly to moderately decreased G3b 30-44 Moderately to severely decreased G4 15-29 Severely decreased G5 <15 Kidney failure *Relative to young adult level. In the absence of evidence of kidney damage, neither GFR category G1 nor G2 fulfill the criteria for CKD. The CKD-EPI equation is validated in individuals 18 years of age and older. Currently the best equation for estimating glomerular filtration rate (GFR) from serum creatinine in children is the Bedside Gupta equation. It is less accurate in patients with extremes of muscle mass, restriction of dietary protein, ingestion of creatine, extra-renal metabolism of creatinine, or treatment with medications that affect renal tubular creatinine secretion. Performed By: #### L FT3, HEMDF, BMP3, LACT3, LIPA4 #### [facility] [address] [place] [address] GFR/1.73 sq M.predicted among blacks MDRD (S/P/Bld) [Vol rate/Area] mL/min/{1.73_m2} Normal >60 [facility] Comment on above: Performed By: #### L FT3, HEMDF, BMP3, LACT3, LIPA4 #### [facility] [address] [place] [address] Potassium [Moles/Vol] 3.7 mmol/L Normal 3.5-5.1 [facility] Comment on above: Performed By: #### L FT3, HEMDF, BMP3, LACT3, LIPA4 #### [facility] [address] [place] [address] Chloride [Moles/Vol] 108 mmol/L High 98-107 [facility] Comment on above: Performed By: #### L FT3, HEMDF, BMP3, LACT3, LIPA4 #### [facility] [address] [place] [address] Sodium [Moles/Vol] 138 mmol/L Normal 135-145 [facility] Comment on above: Performed By: #### L FT3, HEMDF, BMP3, LACT3, LIPA4 #### [facility] [address] [place] [address] Basic Metabolic PanelOrdered By: Marlen Lcokhart on 12-03-2020 Anion gap [Moles/Vol] 9 mmol/L 3 - 13 mmol/L [facility] Work Phone: Calcium [Mass/Vol] 9.9 mg/dL 8.4 - 10. 4 mg/dL [facility] Work Phone: Chloride [Moles/Vol] 108 mmol/L High 98 - 10 7 mmol/L [facility] Work Phone: CO2 [Moles/Vol] 21 mmol/L Low 22 - 30 mmol/L [facility] Work Phone: Creatinine [Mass/Vol] 0.75 mg/dL 0.52 - 1.25 mg/dL [facility] Work Phone: EGFR IF NonAfrican Japanese >90.0 >60 mL/min [facility] Work Phone: Comment on above: KDIGO guidelines pro vide the following GFR categories: Stage GFR(ml/min/1.73 m2) Terms G1 >=90 Normal or high G2 60-89 Mildly decreased* G3a 45-59 Mildly to moderately decreased G3b 30-44 Moderately to severely decreased G4 15-29 Severely decreased G5 <15 Kidney failure *Relative to young adult level. In the absence of evidence of kidney damage, neither GFR category G1 nor G2 fulfill the criteria for CKD. The CKD-EPI equation is validated in individuals 18 years of age and older. Currently the best equation for estimating glomerular filtration rate (GFR) from serum creatinine in children is the Bedside Gupta equation. It is less accurate in patients with extremes of muscle mass, restriction of dietary protein, ingestion of creatine, extra-renal metabolism of creatinine, or treatment with medications that affect renal tubular creatinine secretion. GFR/1.73 sq M.predicted among blacks MDRD (S/P/Bld) [Vol rate/Area] mL/min/{1.73_m2} >60 mL/min [facility] Work Phone: Glucose [Mass/Vol] 89 mg/dL 70 - 100 mg/dL [facility] Work Phone: Interpretation and review of laboratory results Abnormal [facility] Work Phone: Potassium [Moles/Vol] 3.7 mmol/L 3.5 - 5.1 mmol/L [facility] Work Phone: Sodium [Moles/Vol] 138 mmol/L 135 - 145 mmol/L [facility] Work Phone: Urea nitrogen (BldV) [Mass/Vol] 13 mg/dL 7 - 20 mg/dL [facility] Work Phone: C-Reactive Proteinon 021 CRP [Mass/Vol] 5.2 mg/L Normal 0.0-6.0 [facility] Comment on above: Result Comment: . Performed By: #### L FT3, HEMDF, BMP3, LACT3, LIPA4 #### [facility] [address] [place] [address] C-Reactive ProteinOrdered By : Leno Cifuentes on 12-03-2020 CRP [Mass/Vol] 5.2 mg/L 0.0 - 6.0 mg/L [facility] Work Phone: Comment on above: . Test Performed by [facility], [address] [place], [place] [address] [place] [address] Work Phone: CR Chest Portableon 12-04-19 21 CR Chest Portable Patient Name: SOCORRO ORELLANA Diagnostic Radiology ACCESSION EXAM DATE/TIME PROCEDURE ORDERING PROVIDER [id number] 12/03/2020 17:11 EDT CR Chest Portable [id number] NEPTALI DOUGLASS CPT code 35761 Reason For Exam (CR Chest Portable) abd pain Report PORTABLE CHEST (Frontal View) History: Chest pain Comparison: None available Findings: Frontal portable chest view shows no lung infiltrate or congestion. The heart is normal in size. There is no mediastinal widening or pleural effusion. IMPRESSION: No acute pulmonary process. Report Dictated on Final Dictating Physician: MD CHASITY, BRIDGETTE Signed Date and Time: 12/03/2020 5:13 pm Signed by: MD CHASITY, AHMAD Transcribed Date and Time: 12/03/2020 5:14 Normal [facility] CT Abdomen and Pelvis W cont rast IVOrdered By: Marlen Lockhart on 12-03-2020 Patient Name: SOCORRO ORELLANA Computed Tomography ACCESSION EXAM DATE/TIME PROCEDURE ORDERING PROVIDER [id number] 12/03/2020 17:[address] Abdomen/Pelvis w/ IV [id number] [id number], Contrast (IV Onl MARLEN CPT code 30646 Q9967 Reason For Exam (CT Abdomen/Pelvis w/ IV Contrast (IV Onl) RLQ pain Report CT ABDOMEN AND PELVIS WITH CONTRAST CLINICAL INDICATION: RLQ pain TECHNIQUE: CT scan of the abdomen and pelvis, with IV contrast. Multiplanar reformations. COMPARISON: February,. FINDINGS: Abdomen: Visualized lung bases grossly unremarkable. Gallbladder surgically absent. Liver without significant abnormality. Spleen without significant abnormality. Pancreas without significant abnormality. Prominence of right renal pelvis or mild pelviectasis and also proximal ureter. No apparent renal or ureteral calcifications or significant perinephric fluid collection. Left kidney grossly unremarkable. Adrenal glands without significant abnormality. Pelvis: Bowel grossly unremarkable. Probable appendix partially visualized and grossly unremarkable. No significant, free peritoneal fluid or apparent adenopathy. Abdominal aorta is nonaneurysmal. Axial skeleton grossly intact. IMPRESSION: Computed Tomography Report 1. Prominent right renal pelvis and proximal ureter may be physiologic, but can also be secondary to recently passed kidney stone or nonspecific postinflammatory change and UTI. Follow-up as indicated. 2. No other acute findings. Report Dictated on Workstation: ANAIS --- Final --- Dictating Physician: MD GARCIA WENDELL Signed Date and Time: 12/03/2020 5:51 pm Signed by: MD GARCIA WENDELL Transcribed Date and Time: 12/03/2020 5:52 [facility] Work Phone: [place], [facility] Incoming Radiology Results From [facility] - 12/03/2020 5:52 PM EDT Patient Name: SOCORRO GONSALES Computed Tomography ACCESSION EXAM DATE/TIME PROCEDURE ORDERING PROVIDER [id number] 12/03/2020 17:[address] Abdomen/Pelvis w/ IV [id number] -[id number], Contrast (IV Onl [facility] CPT code 83504 Q9967 Reason For Exam (CT Abdomen/Pelvis w/ IV Contrast (IV Onl) RLQ pain Report CT ABDOMEN AND PELVIS WITH CONTRAST CLINICAL INDICATION: RLQ pain TECHNIQUE: CT scan of the abdomen and pelvis, with IV contrast. Multiplanar reformations. COMPARISON: February,. FINDINGS: Abdomen: Visualized lung bases grossly unremarkable. Gallbladder surgically absent. Liver without significant abnormality. Spleen without significant abnormality. Pancreas without significant abnormality. Prominence of right renal pelvis or mild pelviectasis and also proximal ureter. No apparent renal or ureteral calcifications or significant perinephric fluid collection. Left kidney grossly unremarkable. Adrenal glands without significant abnormality. Pelvis: Bowel grossly unremarkable. Probable appendix partially visualized and grossly unremarkable. No significant, free peritoneal fluid or apparent adenopathy. Abdominal aorta is nonaneurysmal. Axial skeleton grossly intact. IMPRESSION: Computed Tomography Report 1. Prominent right renal pelvis and proximal ureter may be physiologic, but can also be secondary to recently passed kidney stone or nonspecific postinflammatory change and UTI. Follow-up as indicated. 2. No other acute findings. Report Dictated on Workstation: ANAIS --- Final --- Dictating Physician: MD GARCIA WENDELL Signed Date and Time: 12/03/2020 5:51 pm Signed by: MD GARCIA WENDELL Transcribed Date and Time: 12/03/2020 5:52 [facility] Work Phone: CT Abdomen/Pelvis w/ Contras ton 12-03-2020 CT Abdomen/Pelvis w/ Contrast Patient Name: SOCORRO GONSALES Computed Tomography ACCESSION EXAM DATE/TIME PROCEDURE ORDERING PROVIDER [id number] 12/03/2020 17:[address] Abdomen/Pelvis w/ IV [id number] -CIRILO, Contrast (IV Onl [facility] CPT code 59513 Q9967 Reason For Exam (CT Abdomen/Pelvis w/ IV Contrast (IV Onl) RLQ pain Report CT ABDOMEN AND PELVIS WITH CONTRAST CLINICAL INDICATION: RLQ pain TECHNIQUE: CT scan of the abdomen and pelvis, with IV contrast. Multiplanar reformations. COMPARISON: February,. FINDINGS: Abdomen: Visualized lung bases grossly unremarkable. Gallbladder surgically absent. Liver without significant abnormality. Spleen without significant abnormality. Pancreas without significant abnormality. Prominence of right renal pelvis or mild pelviectasis and also proximal ureter. No apparent renal or ureteral calcifications or significant perinephric fluid collection. Left kidney grossly unremarkable. Adrenal glands without significant abnormality. Pelvis: Bowel grossly unremarkable. Probable appendix partially visualized and grossly unremarkable. No significant, free peritoneal fluid or apparent adenopathy. Abdominal aorta is nonaneurysmal. Axial skeleton grossly intact. IMPRESSION: Computed Tomography Report 1. Prominent right renal pelvis and proximal ureter may be physiologic, but can also be secondary to recently passed kidney stone or nonspecific postinflammatory change and UTI. Follow-up as indicated. 2. No other acute findings. Report Dictated on Workstation: ANAIS Final Dictating Physician: MD GARCIA WENDELL Signed Date and Time: 12/03/2020 5:51 pm Signed by: MD GARICA WENDELL Transcribed Date and Time: 12/03/2020 5:52 Normal [facility] Complete Urinalysison 2020 Appearance (U) Turbid Abnormal Clear [facility] Comment on above: Result Comment: . Performed By: #### M G3, BMP3, HEMDF #### [facility] [address] [place] [address] Bacteria Moderate Abnormal Negative [facility] Comment on above: Result Comment: . Performed By: #### M G3, BMP3, HEMDF #### [facility] [address] [place] [address] Bilirubin,Urine Negative Normal Negative [facility] Comment on above: Result Comment: . Performed By: #### M G3, BMP3, HEMDF #### [facility] [address] [place] [address] Color (U) Light-Yellow Normal Lt. Yellow [facility] Comment on above: Result Comment: . Performed By: #### M G3, BMP3, HEMDF #### [facility] [address] [place] [address] Glucose Ql (U) Normal Normal Normal (<70) [facility] Comment on above: Result Comment: . Performed By: #### M G3, BMP3, HEMDF #### [facility] [address] [place] [address] Ketone,Urine Negative Normal Negative [facility] Comment on above: Result Comment: . Performed By: #### M G3, BMP3, HEMDF #### [facility] [address] [place] [address] Leukocytes,Urine 250 Reyes/uL Abnormal Negative [facility] Comment on above: Result Comment: . Performed By: #### M G3, BMP3, HEMDF #### [facility] [address] [place] [address] Mucous Threads Few Normal Negative [facility] Comment on above: Result Comment: . Performed By: #### M G3, BMP3, HEMDF #### [facility] [address] [place] [address] Nitrites,Urine Negative Normal Negative [facility] Comment on above: Result Comment: . Performed By: #### M G3, BMP3, HEMDF #### [facility] [address] [place] [address] Occult Blood,Urine Negative Normal Negative [facility] Comment on above: Result Comment: . Performed By: #### M G3, BMP3, HEMDF #### [facility] [address] [place] [address] pH,Urine 7.5 Normal 5.0-8.0 [facility] Comment on above: Result Comment: . Performed By: #### M G3, BMP3, HEMDF #### [facility] [address] [place] [address] RBC, Urine 0 - 2 Normal 0-2 [facility] Comment on above: Result Comment: . Performed By: #### M G3, BMP3, HEMDF #### [facility] [address] [place] [address] Specific [place],Urine 1.013 Normal 1.005 - 1.030 [facility] Comment on above: Result Comment: . Performed By: #### M G3, BMP3, HEMDF #### [facility] [address] [place] [address] Squamous Epithelial 6 - 10 Abnormal 3-5 [facility] Comment on above: Result Comment: . Performed By: #### M G3, BMP3, HEMDF #### [facility] [address] [place] [address] Total Protein,Urine Negative Normal Negative [facility] Comment on above: Result Comment: . Performed By: #### M G3, BMP3, HEMDF #### [facility] [address] [place] [address] Urobilinogen,Urine Normal Normal Normal (0-1) [facility] Comment on above: Result Comment: . Performed By: #### M G3, BMP3, HEMDF #### [facility] [address] [place] [address] WBC, Urine 6 - 10 Abnormal 0-5 [facility] Comment on above: Result Comment: . Performed By: #### M G3, BMP3, HEMDF #### [facility] [address] [place] [address] ED Provider Noteon ED Provider Note Emergency Department Encounter [facility] ED Patient: Socorro Gonsales : 1995 Date of Evaluation: 12/03/2020 ED Supervising Physician: Neptali Hoang, I independently examined and evaluated Socorro Gonsales. In brief, Socorro Gonsales is a 25 y.o. female that presents to the emergency department with abdominal pain is started last night. She is been having vomiting for about a week associated with decreased appetite and inability to tolerate any food. Pain seem to start rather acutely last night and rapidly progress during the course of the day today. Focused exam: Appears very uncomfortable, yells out with pain with any abdominal palpation. She has diffuse peritonitis. Brief ED course/MDM: Patient has an acute abdomen. Work-up discussed with [facility]. Analgesics provided. Awaiting diagnostic work-up. All diagnostic, treatment, and disposition decisions were made by myself in conjunction with the [facility]. For all further details of the patient's emergency department visit, please see their documentation. (Please note that portions of this note may have been completed with a voice recognition program. Efforts were made to edit the dictations but occasionally words are mis-transcribed.) Neptali Hoang, [employer] Neptali Hoang DO 12/03/20 1650 [facility] ED Provider Note SHB 1E MED SURG EMERGENCY DEPARTMENT ENCOUNTER Pt Name: Socorro Gonsales Birthdate 1995 Date of evaluation: 12/03/2020 Provider: Marlen Lockhart PA-C Emergency department care was supervised by Dr. Hoang who independently examined and evaluated the patient. Please see their attestation note for further details. CHIEF COMPLAINT Chief Complaint Patient presents with ? Abdominal Pain HISTORY OF PRESENT ILLNESS HPI Socorro Gonsales is a 25 y.o. female who presents to the emergency department for evaluation of right lower quadrant abdominal pain which has been an ongoing concern since approximately 7 PM yesterday. Patient states that she has been experiencing a stabbing, ripping sensation at her right lower abdominal quadrant with radiation in a wrapping pattern to her back. Pain has been intermittent initially since onset but becoming more constant and progressive over time. Pain currently 10 out of 10. Associated with hot flashes, nausea with x3 episodes of bilious emesis, diarrhea. Denies fever, chest pain, dyspnea,cough, hemoptysis, palpitations, headache, dizziness or syncope. Deniesbloody stools or rectal pain. No urinary complaints including hematuria, dysuria, frequency or urgency. No pelvic complaints including vaginal bleeding, discharge or concern for STD. Patient has attempted the use of Tylenol for symptom relief without significant improvement. Abdominal surgical history significant for prior tubal ligation, cholecystectomy, intestinal duodenal cyst removal. She was evaluated by her PCP who advised that she present to the emergency department for concern of appendicitis. Denies concern for possible . Patient not currently breast-feeding. Appropriate personal protective equipment was worn for the entirety of this encounter. REVIEW OF SYSTEMS Review of Systems This patient's personal and family past medical history as stated in HPI and otherwise negative. ROS as stated in HPI otherwise negative, a total of 10 systems reviewed. PAST MEDICAL HISTORY Past Medical History: Diagnosis Date ? Allergic rhinitis ? Anxiety ? Asthma ? Chronic abdominal pain ? GERD (gastroesophageal reflux disease) ? Hydronephrosis of right kidney 07/17/2019 ? IUD (intrauterine device) in place ? Pancreatic divisum ? Syncope and collapse ? Tobacco abuse ? Ulcerative colitis (HCC) SURGICAL HISTORY Past Surgical History: Procedure Laterality Date ? ABDOMINAL EXPLORATION SURGERY 05/2019 duodenal cyst removal ? CHOLECYSTECTOMY, LAPAROSCOPIC 05/2019 ? COLONOSCOPY 05/2020 [place] ? CYSTOSCOPY 12/28/2020 ? DILATATION, ESOPHAGUS ? HYSTEROSCOPY 02/23/2020 Diagnostic laparoscopy, Hysteroscopy, D&C, Mirena IUD insertion ? INTRAUTERINE DEVICE INSERTION ? SALPINGECTOMY Bilateral 04/28/2018 ? UPPER GASTROINTESTINAL ENDOSCOPY 12/06/2020 Dr Jansen at [facility] ? WISDOM TOOTH EXTRACTION CURRENTMEDICATIONS Discharge Medication List as of 12/06/2020 3:55 PM ALLERGIES Latex, Codeine, and Gabapentin FAMILY HISTORY Family History Problem Relation Age of Onset ? Other Mother MS, good pastures syndrome ? Heart Attack Mother ? Kidney Disease Mother Kidney Failure ? No Known Problems Father ? health ? Depression Sister ? No Known Problems Brother SOCIAL HISTORY Social History Socioeconomic History ? Marital status: Single Spouse name: None ? Number of children: 2 ? Years of education: None ? Highest education level: None Occupational History ? None Tobacco Use ? Smoking status: Former Smoker Start date: 05/04/2017 Quit date: 06/2018 Years since quittin.7 ? Smokeless tobacco: Never Used Vaping Use ? Vaping Use: Every day ? Substances: Nicotine, Flavoring ? Devices: Pre-filled pod (Juul) ? Passive vaping exposure Yes Substance and Sexual Activity ? Alcohol use: Yes Comment: occassionally ? Drug use: No Comment: tea every day ? Sexual activity: Yes Partners: Male Other Topics Concern ? None Social History Narrative Single, BF Mukesh supportive. First son born 04/24. SMOKER, no excessive ETOH. 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 Difficulty of Paying Living Expenses: Not hard at all Food Insecurity: No Food Insecurity ? Worried About Running Out of Food in the Last Year: Never true ? Ran Out of Food in the Last Year: Never true Transportation Needs: No Transportation Needs ? Lack of Transportation (Medical): No ? Lack of Transportation (Non-Medical): No Physical Activity: ? Days of Exercise per Week: ? Minutes of Exercise per Session: Stress: ? Feeling of Stress : Social Connections: ? Frequency of Communication with Friends and Family: ? Frequency of Social Gatherings with Friends and Family: ? Attends Restorationism Services: ? Active Member of Clubs or Organizations: ? Attends Club or O (more content not included)... Normal [facility] HCG,Urine Qualon 12-03-2020 Beta HCG ( test) Ql (U) Negative Normal Negative [facility] Comment on above: Result Comment: Plea se note: Very dilute urine specimens, as indicated by a low specific gravity, may not contain phlebotomy services representative levels of hCG. If is still suspected, a first morning urine specimen should be collected 48 hours later and tested. is the most common reason for HCG in urine, although choriocarcinoma, hydatidiform mole, and certain nontropho- blastic malignancies also result in detectable urinary HCG levels. Sensitivity = 20mIU/mL. Performed By: #### M G3, BMP3, HEMDF #### [facility] [address] [place] [address] [facility] Urine Qual PregOrdered B y: Marlen Lockhart on 12-03-2020 Beta HCG ( test) Ql (U) Negative Negative NA [facility] Work Phone: Comment on above: Please note: Very di lute urine specimens, as indicated by a low specific gravity, may not contain phlebotomy services representative levels of hCG. If is still suspected, a first morning urine specimen should be collected 48 hours later and tested. is the most common reason for HCG in urine, although choriocarcinoma, hydatidiform mole, and certain nontropho- blastic malignancies also result in detectable urinary HCG levels. Sensitivity = 20mIU/mL. Test Performed by [facility], [address] [place], [place] [address] [employer] Work Phone: Hemogram (CBC) w/Auto DiffOr dered By: Marlen Lockhart on 12-03-2020 Absolute Baso # 0.0 10*3/uL 0.0 - 0.2 10*3/uL [employer] Work Phone: Absolute Neut # 2.3 10*3/uL 1.8 - 7.0 10*3/uL [employer] Work Phone: Basophils/100 WBC (Bld) 0.8 % 0.0 - 2.0 % [facility] Work Phone: [phone]) [phone] Eosinophils (Bld) [#/Vol] 0.1 10*3/uL 0.0 - 0.5 10*3/uL [facility] Work Phone: 1) 222 Eosinophils/100 WBC (Bld) 2.0 % 1.0 - 6.0 % [employer] Work Phone: 1) 222 Granulocytes/100 WBC (Bld) 45.5 % 40.0 - 80.0 % [facility] Work Phone: 1) 222 Hematocrit (Bld) [Volume fraction] 33.5 % Low 35.0 - 47.0 % [facility] Work Phone: 1) 222 Hemoglobin.gastrointe stinal spec 1 Ql (Stl) 11.2 g/dL Low 11.7 - 16.0 g/dL [employer] Work Phone: [phone]) 222 Interpretation and review of laboratory results Abnormal [employer] Work Phone: ) 222 Lymphocytes (Bld) [#/Vol] 2.2 10*3/uL 1.0 - 4.3 10*3/uL [facility] Work Phone: 1) 222 Lymphocytes/100 WBC (Bld) 42.8 % High 20.0 - 40.0 % [employer] Work Phone: ) 222 MCH (RBC) [Entitic mass] 25.9 pg Low 26.0 - 34.0 pg [facility] Work Phone: ) 222 MCHC (RBC) [Mass/Vol] 33.4 % 32.0 - 36.0 % [facility] Work Phone: ) 222 MCV (RBC) [Entitic vol] 77.6 fL Low 79.0 - 98.0 fL [facility] Work Phone: 1) 222 Monocytes (Bld) [#/Vol] 0.5 10*3/uL 0.0 - 0.8 10*3/uL [facility] Work Phone: 1) 222 Monocytes/100 WBC (Bld) 8.9 % 2.0 - 10.0 % [facility] Work Phone: [phone] Platelet distribution width (Bld) [Ratio] 16.1 % High 11.5 - 14.5 % [employer] Work Phone: Platelet mean volume (Bld) [Entitic vol] 7.9 fL 7.4 - 10.4 fL [employer] Work Phone: [phone] Platelets (Bld) [#/Vol] 375 10*3/uL 140 - 440 10*3/uL [employer] Work Phone: [phone] RBC (Bld) [#/Vol] 4.31 10*6/uL 3.80 - 5.2 0 10*6/uL [employer] Work Phone: [phone] WBC (Bld) [#/Vol] 5.1 10*3/uL 3.6 - 10.7 10*3/uL [employer] Work Phone: Test Performed by [facility], [address] [place], [place] [address] [facility] Work Phone: Hemogram w/ Autodiffon 12-03 Abs Baso Cnt 0.0 10*3/uL Normal 0.0-0.2 [facility] Comment on above: Performed By: #### L FT3, HEMDF, BMP3, LACT3, LIPA4 #### [facility] [employer] [facility] [address] [place] [address] Abs Neutrophile Cnt 2.3 10*3/uL Normal 1.8-7.0 [facility] [employer] [facility] Comment on above: Performed By: #### L FT3, HEMDF, BMP3, LACT3, LIPA4 #### [facility] [employer] [address] [place] [address] Basophils/100 WBC (Bld) 0.8 % Normal 0.0-2.0 [facility] Comment on above: Performed By: #### L FT3, HEMDF, BMP3, LACT3, LIPA4 #### [facility] [employer] [address] [place] [address] Eosinophils (Bld) [#/Vol] 0.1 10*3/uL Normal 0.0-0.5 [facility] Comment on above: Performed By: #### L FT3, HEMDF, BMP3, LACT3, LIPA4 #### [facility] [address] [place] [address] Eosinophils/100 WBC (Bld) 2.0 % Normal 1.0-6.0 [facility] Comment on above: Performed By: #### L FT3, HEMDF, BMP3, LACT3, LIPA4 #### [facility] [address] [place] [address] Erythrocyte distribution width (RBC) [Ratio] 16.1 % High 11.5-14.5 [facility] Comment on above: Performed By: #### L FT3, HEMDF, BMP3, LACT3, LIPA4 #### [facility] [address] [place] [address] Granulocytes/100 WBC (Bld) 45.5 % Normal 40.0-80.0 [facility] Comment on above: Performed By: #### L FT3, HEMDF, BMP3, LACT3, LIPA4 #### [facility] [address] [place] [address] Hematocrit (Bld) [Volume fraction] 33.5 % Low 35.0-47.0 [facility] Comment on above: Performed By: #### L FT3, HEMDF, BMP3, LACT3, LIPA4 #### [facility] [address] [place] [address] Hemoglobin (Bld) [Mass/Vol] 11.2 g/dL Low 11.7-16.0 [facility] Comment on above: Performed By: #### L FT3, HEMDF, BMP3, LACT3, LIPA4 #### [facility] [address] [place] [address] Lymphocytes (Bld) [#/Vol] 2.2 10*3/uL Normal 1.0-4.3 [facility] Comment on above: Performed By: #### L FT3, HEMDF, BMP3, LACT3, LIPA4 #### [facility] [address] [place] [address] Lymphocytes/100 WBC (Bld) 42.8 % High 20.0-40.0 [facility] Comment on above: Performed By: #### L FT3, HEMDF, BMP3, LACT3, LIPA4 #### [facility] [address] [place] [address] MCH (RBC) [Entitic mass] 25.9 pg Low 26.0-34.0 [facility] Comment on above: Performed By: #### L FT3, HEMDF, BMP3, LACT3, LIPA4 #### [facility] [address] [place] [address] MCHC 33.4 % Normal 32.0-36.0 [facility] Comment on above: Performed By: #### L FT3, HEMDF, BMP3, LACT3, LIPA4 #### [facility] [address] [place] [address] MCV (RBC) [Entitic vol] 77.6 fL Low 79.0-98.0 [facility] Comment on above: Performed By: #### L FT3, HEMDF, BMP3, LACT3, LIPA4 #### [facility] [address] [place] [address] Monocytes (Bld) [#/Vol] 0.5 10*3/uL Normal 0.0-0.8 [facility] Comment on above: Performed By: #### L FT3, HEMDF, BMP3, LACT3, LIPA4 #### [facility] [address] [place] [address] Monocytes/100 WBC (Bld) 8.9 % Normal 2.0-10.0 [facility] Comment on above: Performed By: #### L FT3, HEMDF, BMP3, LACT3, LIPA4 #### [facility] [address] [place] [address] Platelet mean volume (Bld) [Entitic vol] 7.9 fL Normal 7.4-10.4 [facility] Comment on above: Performed By: #### L FT3, HEMDF, BMP3, LACT3, LIPA4 #### [facility] [address] [place] [address] Platelets (Bld) [#/Vol] 375 10*3/uL Normal 140-440 [facility] Comment on above: Performed By: #### L FT3, HEMDF, BMP3, LACT3, LIPA4 #### [facility] [address] [place] [address] RBC (Bld) [#/Vol] 4.31 10*6/uL Normal 3.80-5.20 [facility] Comment on above: Performed By: #### L FT3, HEMDF, BMP3, LACT3, LIPA4 #### [facility] [address] [place] [address] WBC (Bld) [#/Vol] 5.1 10*3/uL Normal 3.6-10.7 [facility] Comment on above: Performed By: #### L FT3, HEMDF, BMP3, LACT3, LIPA4 #### [facility] [address] [place] [address] Hepatic Functionon 1 ALT [Catalytic activity/Vol] 12 U/L Normal 0-34 [facility] Comment on above: Result Comment: The ALT test is performed by an updated assay method. Please note that the reference intervals have been changed and are now sex specific. Performed By: #### L FT3, HEMDF, BMP3, LACT3, LIPA4 #### [facility] [address] [place] [address] ALP [Catalytic activity/Vol] 69 U/L Normal 38-126 [facility] Comment on above: Performed By: #### L FT3, HEMDF, BMP3, LACT3, LIPA4 #### [facility] [address] [place] [address] AST [Catalytic activity/Vol] 28 U/L Normal 15-46 [facility] Comment on above: Performed By: #### L FT3, HEMDF, BMP3, LACT3, LIPA4 #### [facility] [address] [place] [address] Bilirubin [Mass/Vol] 0.4 mg/dL Normal 0.2-1.3 [facility] Comment on above: Performed By: #### L FT3, HEMDF, BMP3, LACT3, LIPA4 #### [facility] [address] [place] [address] Bilirubin.indirect [Mass/Vol] 0.0 mg/dL Normal 0.0-0.3 [facility] Comment on above: Performed By: #### L FT3, HEMDF, BMP3, LACT3, LIPA4 #### [facility] [address] [place] [address] Protein [Mass/Vol] 8.2 g/dL Normal 6.3-8.2 [facility] Comment on above: Performed By: #### L FT3, HEMDF, BMP3, LACT3, LIPA4 #### [facility] [address] [place] [address] Albumin [Mass/Vol] 4.7 g/dL Normal 3.5-5.0 [facility] Comment on above: Performed By: #### L FT3, HEMDF, BMP3, LACT3, LIPA4 #### [facility] [address] [place] [address] Hepatic Function PanelOrdere d By: Marlen Lockhart on 12-03-2020 Albumin [Mass/Vol] 4.7 g/dL 3.5 - 5.0 g/dL [facility] Work Phone: [phone] ALP (Bld) [Catalytic activity/Vol] 69 U/L 38 - 126 U/L [facility] Work Phone: [phone] ALT [Catalytic activity/Vol] 12 U/L 0 - 34 U/L [facility] Work Phone: [phone] Comment on above: The ALT test is perf ormed by an updated assay method. Please note that the reference intervals have been changed and are now sex specific. AST [Catalytic activity/Vol] 28 U/L 15 - 46 U/L [facility] Work Phone: Bilirubin [Mass/Vol] 0.4 mg/dL 0.2 - 1 .3 mg/dL [facility] Work Phone: Bilirubin.indirect [Mass/Vol] 0.0 mg/dL 0.0 - 0.3 mg/dL [facility] Work Phone: Free PSA/Total PSA [Mass fraction] 8.2 g/dL 6.3 - 8.2 g/dL [facility] Work Phone: Lactic Acidon 12-03-2020 Lactate [Moles/Vol] 1.1 mmol/L Normal 0.7-2.0 [facility] Comment on above: Performed By: #### L FT3, HEMDF, BMP3, LACT3, LIPA4 #### [facility] [employer] [facility] [address] [place] [address] Lactic Acid, PlasmaOrdered B y: Marlen Lockhart on 12-03-2020 Lactate [Moles/Vol] 1.1 mmol/L 0.7 - 2. 0 mmol/L [employer] Work Phone: Test Performed by [facility], [address] [place], [place] [address] [employer] Work Phone: Lipaseon 12-03-2020 Lipase [Catalytic activity/Vol] 83 U/L Normal 23-300 [facility] Comment on above: Performed By: #### L FT3, HEMDF, BMP3, LACT3, LIPA4 #### [facility] [employer] [facility] [address] [place] [address] LipaseOrdered By: Marlen Lockhart on 12-03-2020 Lipase [Catalytic activity/Vol] 83 U/L 23 - 300 U/L [facility] Work Phone: No Panel InformationOrdered By: Marlen Lockhart on 12-03-2020 Test Performed by [facility], [address] [place] [address] [employer] Work Phone: Procalcitoninon 12-03-2020 Interpretation See Below Normal [facility] Comment on above: Result Comment: PCT <0.50 = Low risk of severe sepsis and/or septic shock. PCT >2.00 = High risk of severe sepsis and/or septic shock. Performed By: #### L FT3, HEMDF, BMP3, LACT3, LIPA4 #### [facility] [employer] [facility] [address] [place] [address] UrinalysisOrdered By: Deedee Lockhart on 12-03-2020 Appearance (U) Turbid Abnormal Clear NA [facility] Work Phone: Comment on above: . Bacteria, UA Moderate Abnormal Negative /[HPF] [facility] Work Phone: Comment on above: . Bilirubin Urine Negative Negative mg/dL [facility] Work Phone: [phone] Comment on above: . Color (U) Light-Yellow Lt. Yellow NA [employer] Work Phone: [phone] Comment on above: . Glucose, Ur Normal Normal (<70) mg/dL [facility] Work Phone: [phone] Comment on above: . Interpretation and review of laboratory results Abnormal [facility] Work Phone: [phone] Ketones Ql (U) Negative Negative mg/dL [facility] Work Phone: [phone] Comment on above: . LEUKOCYTES, UA 250 Abnormal Negative Reyes/uL [facility] Work Phone: [phone] Comment on above: . Mucous Threads Few Negative /[LPF] [facility] Work Phone: [phone] Comment on above: . Nitrite, Urine Negative Negative NA [facility] Work Phone: [phone] Comment on above: . Occult Blood,Urine Negative Negative mg/dL [employer] Work Phone: [phone]) Comment on above: . pH (U) 7.5 [pH] [facility] Work Phone: [phone] Comment on above: . RBC, UA 0-2 0 - 2 /[HPF] [facility] Work Phone: [phone] Comment on above: . Specific [place], Urine 1.013 [facility] Work Phone: [phone] Comment on above: . Squam Epithel, UA 6-10 Abnormal 3 - 5 /[HPF] [facility] Work Phone: [phone] Comment on above: . Total Protein, Urine Negative Negative mg/dL [facility] Work Phone: [phone] Comment on above: . Urobilinogen, Urine Normal Normal ( 0-1) mg/dL [facility] Work Phone: [phone] Comment on above: . WBC, UA 6-10 Abnormal 0 - 5 /[HPF] [facility] Work Phone: [phone] Comment on above: . Test Performed by [facility], [address], [place], [place] [address] [facility] Work Phone: [phone] Vaginitis Panel PCRon 2020 Vaginitis Panel PCR Bacterial Vaginosis Markers PCR --> Status: F Negative Austin spp. PCR --> Status: F Negative Asutin glabrata PCR --> Status: F Negative [place] krusei PCR --> Status: F Negative Trichomonas vaginalis PCR --> Status: F Negative Expected Value: Negative Method: Real Time PCR by BD-MAX Expected Value: Negative Method: Real Time PCR by BD-MAX Normal [facility] Comment on above: Order Comment: Use U VE Collection Kit Performed By: #### M G3, BMP3, HEMDF #### [facility] [address] [place] [address] XR CHEST PORTABLEOrdered By: Neptali Hoang on 12-03-2020 Patient Name: SOCORRO ORELLANA Diagnostic Radiology ACCESSION EXAM DATE/TIME PROCEDURE ORDERING PROVIDER [id number] 12/03/2020 17:11 EDT CR Chest Portable [id number] NEPTALI DOUGLASS CPT code 00778 Reason For Exam (CR Chest Portable) abd pain Report PORTABLE CHEST (Frontal View) History: Chest pain Comparison: None available Findings: Frontal portable chest view shows no lung infiltrate or congestion. The heart is normal in size. There is no mediastinal widening or pleural effusion. IMPRESSION: No acute pulmonary process. Report Dictated on --- Final --- Dictating Physician: MD GASPAR AHMAD Signed Date and Time: 12/03/2020 5:13 pm Signed by: MD GASPAR AHMAD Transcribed Date and Time: 12/03/2020 5:14 [facility] Work Phone: Reynaldo, [facility] Incoming Radiology Results From [facility] - 12/03/2020 5:14 PM EDT Patient Name: SOCORRO GONSALES Diagnostic Radiology ACCESSION EXAM DATE/TIME PROCEDURE ORDERING PROVIDER [id number] 12/03/2020 17:11 EDT CR Chest Portable [id number] NEPTALI DOUGLASS CPT code 02656 Reason For Exam (CR Chest Portable) abd pain Report PORTABLE CHEST (Frontal View) History: Chest pain Comparison: None available Findings: Frontal portable chest view shows no lung infiltrate or congestion. The heart is normal in size. There is no mediastinal widening or pleural effusion. IMPRESSION: No acute pulmonary process. Report Dictated on --- Final --- Dictating Physician: MD GASPAR AHMAD Signed Date and Time: 12/03/2020 5:13 pm Signed by: MD GASPAR AHMAD Transcribed Date and Time: 12/03/2020 5:14 [facility] Work Phone: .Auto Diffon 05-31-2020 Ammonia (P) [Mass/Vol] 0.40 10 3/mcL Normal 0.15-1.00 [facility] ([place]) Comment on above: Performed By: #### U A #### [place] [address] #### PREGU #### [address] [address] Basophils (Bld) [#/Vol] 0.10 10 3/mcL Normal 0.00-0.19 [facility] ([place]) Comment on above: Performed By: #### U A #### [place] [address] #### PREGU #### [address] [address] Basophils/100 WBC (Bld) 0.6 % Normal 0.0-2.5 [facility] ([place]) Comment on above: Performed By: #### U A #### [place] [address] #### PREGU #### [address] [address] Eosinophils (Bld) [#/Vol] 0.20 10 3/mcL Normal 0.00-0.40 [facility] ([place]) Comment on above: Performed By: #### U A #### [place] [address] #### PREGU #### [address] [address] Eosinophils/100 WBC (Bld) 2.7 % Normal 0.0-7.0 [facility] ([place]) Comment on above: Performed By: #### U A #### [place] [address] #### PREGU #### [address] [address] Lymphocytes (Bld) [#/Vol] 2.70 10 3/mcL Normal 0.77-3.85 [facility] ([place]) Comment on above: Performed By: #### U A #### [place] [address] #### PREGU #### [address] [address] Lymphocytes/100 WBC (Bld) 32.1 % Normal 10.0-50.0 [facility] ([place]) Comment on above: Performed By: #### U A #### [place] [address] #### PREGU #### [address] [address] Monocytes/100 WBC (Bld) 4.9 % Normal 1.7-13.0 [facility] ([place]) Comment on above: Performed By: #### U A #### [place] [address] #### PREGU #### [address] [address] Neutrophils/100 WBC (Bld) 59.7 % Normal 37.0-80.0 [facility] ([place]) Comment on above: Performed By: #### U A #### [place] [address] #### PREGU #### [address] [address] .GFRon 05-31-2020 GFR Non- 69 ml/min/1.73sqm Normal [facility] ([place]) Comment on above: Result Comment: GFR Population mean for , Non- Americans Ages 20-29 = 116 mL/min/1.73 sq.m. Ages 30-39 = 107 mL/min/1.73 sq.m. Ages 40-49 = 99 mL/min/1.73 sq.m. Ages 50-59 = 93 mL/min/1.73 sq.m. Ages 60-69 = 85 mL/min/1.73 sq.m. Ages 70+ = 75 mL/min/1.73 sq.m. Chronic Kidney Disease: Less than 60 mL/min/1.73 square meters End Stage Renal Disease: Less than 15 mL/min/1.73 square meters Performed By: #### U A #### [place] [address] #### PREGU #### [address] [address] GFR 84 ml/min/1.73sqm Normal [facility] ([place]) Comment on above: Result Comment: GFR Population mean for , Non- Americans Ages 20-29 = 116 mL/min/1.73 sq.m. Ages 30-39 = 107 mL/min/1.73 sq.m. Ages 40-49 = 99 mL/min/1.73 sq.m. Ages 50-59 = 93 mL/min/1.73 sq.m. Ages 60-69 = 85 mL/min/1.73 sq.m. Ages 70+ = 75 mL/min/1.73 sq.m. Chronic Kidney Disease: Less than 60 mL/min/1.73 square meters End Stage Renal Disease: Less than 15 mL/min/1.73 square meters Performed By: #### U A #### [place] [address] #### PREGU #### [address] [address] .NEUABSon 05-31-2020 Neutrophils (Bld) [#/Vol] 5.00 10 3/mcL Normal 2.85-6.16 [facility] ([place]) Comment on above: Performed By: #### C BC, ADIFF, ANEU #### [address] [address] #### LIP, CMP, GFR #### [place] [address] .Urinalysis Microscopic (AO) on 05-31-2020 RBC (U) [#/Vol] None Seen Normal None Seen [facility] ([place]) Comment on above: Performed By: #### U A #### [place] [address] #### PREGU #### [address] [address] UA Squam Epithelial LOADED Abnormal None Seen [facility] ([place]) Comment on above: Performed By: #### U A #### [place] [address] #### PREGU #### [address] [address] UA WBC None Seen Normal None Seen [facility] ([place]) Comment on above: Performed By: #### U A #### [place] [address] #### PREGU #### [address] [address] CBCon 05-31-2020 Erythrocyte distribution width (RBC) [Ratio] 16.3 % High 11.5-14.5 [facility] ([place]) Comment on above: Performed By: #### U A #### [place] [address] #### PREGU #### [place] [address] Hematocrit (Bld) [Volume fraction] 33.3 % Low 37.0-47.0 [facility] ([place]) Comment on above: Performed By: #### U A #### [place] [address] #### PREGU #### [address] [address] Hemoglobin (Bld) [Mass/Vol] 10.7 G/dL Low 12.0-16.0 [facility] ([place]) Comment on above: Performed By: #### U A #### [place] [address] #### PREGU #### [address] [address] MCH (RBC) [Entitic mass] 24.5 pg Low 27.0-31.2 [facility] ([place]) Comment on above: Performed By: #### U A #### [place] [address] #### PREGU #### [address] [address] MCHC (RBC) [Mass/Vol] 32.0 G/dL Low 33.0-37.0 [facility] ([place]) Comment on above: Performed By: #### U A #### [place] [address] #### PREGU #### [address] [address] MCV (RBC) [Entitic vol] 76.6 fL Low 80.0-94.0 [facility] ([place]) Comment on above: Performed By: #### U A #### [place] [address] #### PREGU #### [address] [address] Platelet mean volume (Bld) [Entitic vol] 7.7 fL Normal 7.4-10.4 [facility] ([place]) Comment on above: Performed By: #### U A #### [place] [address] #### PREGU #### [address] [address] Platelets (Bld) [#/Vol] 367 10 3/mcL Normal 130-400 [facility] ([place]) Comment on above: Performed By: #### U A #### [place] [address] #### PREGU #### [address] [address] RBC (Bld) [#/Vol] 4.35 10 6/mcL Normal 4.20-5.40 [facility] ([place]) Comment on above: Performed By: #### U A #### [place] [address] #### PREGU #### [address] [address] WBC (Bld) [#/Vol] 8.40 10 3/mcL Normal 4.60-10.80 [facility] ([place]) Comment on above: Performed By: #### U A #### [place] [address] #### PREGU #### [address] [address] [facility] Albumin [Mass/Vol] 4.2 G/dL Normal 3.5-5.0 [facility] ([place]) Comment on above: Performed By: #### U A #### [place] [address] #### PREGU #### [address] [address] Albumin/Globulin [Mass ratio] 1.1 {ratio} Normal 1.1-2.5 [facility] ([place]) Comment on above: Performed By: #### U A #### [place] [address] #### PREGU #### [address] [address] ALP [Catalytic activity/Vol] 70 U/L Normal 40-135 [facility] ([place]) Comment on above: Performed By: #### U A #### [place] [address] #### PREGU #### [address] [address] ALT [Catalytic activity/Vol] 21 U/L Normal 14-59 [facility] ([place]) Comment on above: Performed By: #### U A #### [place] [address] #### PREGU #### [address] [address] AST [Catalytic activity/Vol] 14 U/L Normal 10-40 [facility] ([place]) Comment on above: Performed By: #### U A #### [place] [address] #### PREGU #### [address] [address] Bili Total 0.2 mg/dL Normal 0.2-1.0 [facility] ([place]) Comment on above: Result Comment: Use of this assay is not recommended for patients undergoing treatment with eltrombopag due to the potential for falsely elevated results. Performed By: #### U A #### [place] [address] #### PREGU #### [address] [address] Calcium [Mass/Vol] 9.3 mg/dL Normal 8.4-10.2 [facility] ([place]) Comment on above: Performed By: #### U A #### [place] [address] #### PREGU #### [address] [address] Chloride [Moles/Vol] 106 mmol/L Normal 98-107 [facility] ([place]) Comment on above: Performed By: #### U A #### [place] [address] #### PREGU #### [address] [address] CO2 [Moles/Vol] 23 mmol/L Normal 22-29 [facility] ([place]) Comment on above: Performed By: #### U A #### [place] [address] #### PREGU #### [address] [address] Creatinine [Mass/Vol] 0.99 mg/dL Normal 0.55-1.02 [facility] ([place]) Comment on above: Performed By: #### U A #### [address] [address] #### PREGU #### [address] [address] Electrolyte Balance 14.0 mEq/L Normal [facility] ([place]) Comment on above: Performed By: #### U A #### [place] [address] #### PREGU #### [address] [address] Globulin (S) [Mass/Vol] 3.7 G/dL Normal [facility] ([place]) Comment on above: Performed By: #### U A #### [place] [address] #### PREGU #### [address] [address] Glucose [Mass/Vol] 93 mg/dL Normal 70-105 [facility] ([place]) Comment on above: Performed By: #### U A #### [place] [address] #### PREGU #### [address] [address] Potassium [Moles/Vol] 3.7 mmol/L Normal 3.5-5.1 [facility] ([place]) Comment on above: Performed By: #### U A #### [place] [address] #### PREGU #### [address] [address] Protein [Mass/Vol] 7.9 G/dL Normal 6.4-8.2 [facility] ([place]) Comment on above: Performed By: #### U A #### [address] [address] #### PREGU #### [address] [address] Sodium [Moles/Vol] 143 mmol/L Normal 136-145 [facility] ([place]) Comment on above: Performed By: #### U A #### [place] [address] #### PREGU #### [address] [address] Urea nitrogen [Mass/Vol] 7 mg/dL Normal 7-18 [facility] ([place]) Comment on above: Performed By: #### U A #### [place] [address] #### PREGU #### [address] [address] Urea nitrogen/Creatinine [Mass ratio] 7 ratio Normal 03-04 [facility] ([place]) Comment on above: Performed By: #### U A #### [place] [address] #### PREGU #### [address] [address] LACon 05-31-2020 Lactic Acid Lvl 2.1 mmol/L High 0.4-2.0 [facility] ([place]) Comment on above: Performed By: #### U A #### [place] [address] #### PREGU #### [address] [address] LIPon 05-31-2020 Lipase Level 141 U/L Normal 73-393 [facility] ([place]) Comment on above: Performed By: #### U A #### [place] [address] #### PREGU #### [address] [address] PREGUon 05-31-2020 HCG ( test) Ql (U) Negative Normal [facility] ([place]) Comment on above: Performed By: #### U A #### [place] [address] #### PREGU #### [address] [address] test (u) int HCG not detected. [facility] ([place]) Comment on above: Performed By: #### U A #### [place] [address] #### PREGU #### [address] [address] UAon 05-31-2020 Color (U) Light yellow Normal [facility] ([place]) Comment on above: Performed By: #### U A #### [place] [address] #### PREGU #### [address] [address] Glucose (U) [Mass/Vol] Negative Normal Negative [facility] ([place]) Comment on above: Performed By: #### U A #### [place] [address] #### PREGU #### [address] [address] Ketones Ql (U) Negative Normal Negative [facility] ([place]) Comment on above: Performed By: #### U A #### [place] [address] #### PREGU #### [address] [address] UA Appear Slightly Cloudy Abnormal Clear [facility] ([place]) Comment on above: Performed By: #### U A #### [place] [address] #### PREGU #### [address] [address] UA Blood Negative Normal Negative [facility] ([place]) Comment on above: Performed By: #### U A #### [place] [address] #### PREGU #### [address] [address] UA Leuk Est Negative Normal Negative [facility] ([place]) Comment on above: Performed By: #### U A #### [place] [address] #### PREGU #### [address] [address] UA Nitrite Negative Normal Negative [facility] ([place]) Comment on above: Performed By: #### U A #### [place] [address] #### PREGU #### [address] [address] UA pH 5.5 Normal 5.0 - 8.0 [facility] ([place]) Comment on above: Performed By: #### U A #### [place] [address] #### PREGU #### [address] [address] UA Protein Negative Normal Negative [facility] ([place]) Comment on above: Performed By: #### U A #### [place] [address] #### PREGU #### [address] [address] UA Spec Grav 1.015 Normal 1.015-1.025 [facility] ([place]) Comment on above: Performed By: #### U A #### [place] [address] #### PREGU #### [address] [address] UA Specimen Type Clean Catch Normal [facility] ([place]) Comment on above: Performed By: #### U A #### [place] [address] #### PREGU #### [address] [address] UA Urobilinogen 0.2 E.U./dL Normal 0.2-1.0 [facility] ([place]) Comment on above: Performed By: #### U A #### [place] [address] #### PREGU #### [address] [address] Urobilinogen Qn (U) Negative Normal Negative [facility] ([place]) Comment on above: Performed By: #### U A #### [place] [id number] [place] [id number] #### PREGU #### [address] [address] SURGICAL PATHOLOGYon CASE REPORT Normal [facility] Comment on above: Order Comment: Speci men Type: TISSUE SPECIMEN Result Comment: Surg ical Pathology Report Case: [id number] Authorizing Provider: Wen Amezcua Collected: 05/16/2020 01:34 PM Ordering Location: [facility] SURGERY Received: 05/17/2020 07:10 AM Pathologist: Gita Mckeon Specimen: COLON BIOPSY, Random Mucosal Biopsies Performed By: #### S #### [facility] CLIA [id number] [address] [place] [address] FINAL DIAGNOSIS Normal [facility] Comment on above: Order Comment: Speci men Type: TISSUE SPECIMEN Result Comment: COLO N, BIOPSIES - COLONIC MUCOSA WITH FOCAL MILD INCREASE IN INTRAEPITHELIAL LYMPHOCYTES AND FOCAL MINIMAL ACUTE INFLAMMATION WITHIN LAMINA PROPRIA. SEE COMMENT. COMMENT; Findings are somewhat nonspecific but raise the possibility of microscopic colitis such as lymphocytic colitis. Clinical and colonoscopic correlation required. Dr. Devin Giordano reviewed the case and agrees with the diagnosis. Performed By: #### S #### [facility] CLIA [id number] [address] [place] [address] FINAL PERFORMING LAB Normal [facility] Comment on above: Order Comment: Speci men Type: TISSUE SPECIMEN Result Comment: Diag nostic interpretation performed at [facility], [address] [place] [address] CLIA# [id number] Access Clinician: Trent Dela Cruz M.D. Performed By: #### S #### [facility] CLIA [id number] [address] [place] [address] GROSS DESCRIPTION Normal [facility] Comment on above: Order Comment: Speci men Type: TISSUE SPECIMEN Result Comment: A. C OLON BIOPSY. Received in formalin labeled colon biopsy are multiple irregular veliz soft tissue fragments aggregating to 0.5 x 0.3 x 0.2 cm. The specimen is submitted entirely in cassette A1. Gross examination performed at [facility], [address] [place] [address] CLIA# [id number] OLS/pkp Performed By: #### S #### [facility] CLIA [id number] [address] [place] [address] Basic Metabolic Panelon 10-0 -2019 Calcium [Mass/Vol] 9.6 mg/dL Normal 8.4-10.4 [facility] Comment on above: Performed By: #### M G3, BMP3, HEMDF #### [facility] [address] [place] [address] Glucose [Mass/Vol] 94 mg/dL Normal 70-100 [facility] Comment on above: Performed By: #### M G3, BMP3, HEMDF #### [facility] [address] [place] [address] Anion Gap 11 Normal [facility] Comment on above: Performed By: #### Brad G3, BMP3, HEMDF #### [facility] [address] [place] [address] CO2 [Moles/Vol] 22 mmol/L Normal 22-30 [facility] Comment on above: Performed By: #### Brad G3, BMP3, HEMDF #### [facility] [address] [place] [address] Creatinine [Mass/Vol] 1.02 mg/dL Normal 0.52-1.25 [facility] Comment on above: Performed By: #### M G3, BMP3, HEMDF #### [facility] [address] [place] [address] GFR/1.73 sq M.predicted among blacks MDRD (S/P/Bld) [Vol rate/Area] 88.8 mL/min/{1.73_m2} Normal >60 [facility] Comment on above: Performed By: #### Brad G3, BMP3, HEMDF #### [facility] [address] [place] [address] GFR/1.73 sq M.predicted among non-blacks MDRD (S/P/Bld) [Vol rate/Area] 76.6 mL/min/{1.73_m2} Normal >60 [facility] Comment on above: Result Comment: KDIG O guidelines provide the following GFR categories: Stage GFR(ml/min/1.73 m2) Terms G1 >=90 Normal or high G2 60-89 Mildly decreased* G3a 45-59 Mildly to moderately decreased G3b 30-44 Moderately to severely decreased G4 15-29 Severely decreased G5 <15 Kidney failure *Relative to young adult level. In the absence of evidence of kidney damage, neither GFR category G1 nor G2 fulfill the criteria for CKD. The CKD-EPI equation is validated in individuals 18 years of age and older. Currently the best equation for estimating glomerular filtration rate (GFR) from serum creatinine in children is the Bedside Gupta equation. It is less accurate in patients with extremes of muscle mass, restriction of dietary protein, ingestion of creatine, extra-renal metabolism of creatinine, or treatment with medications that affect renal tubular creatinine secretion. Performed By: #### M G3, BMP3, HEMDF #### [facility] [address] [place] [address] Urea nitrogen [Mass/Vol] 11 mg/dL Normal 7-20 [facility] Comment on above: Performed By: #### M G3 BMP3, HEMDF #### [facility] [address] [place] [address] Chloride [Moles/Vol] 106 mmol/L Normal 98-107 [facility] Comment on above: Performed By: #### M G3, BMP3, HEMDF #### [facility] [address] [place] [address] Potassium [Moles/Vol] 4.0 mmol/L Normal 3.5-5.1 [facility] Comment on above: Performed By: #### M G3, BMP3, HEMDF #### [facility] [address] [place] [address] Sodium [Moles/Vol] 139 mmol/L Normal 135-145 [facility] Comment on above: Performed By: #### M G3, BMP3, HEMDF #### [facility] [address] [place] [address] Hemogram w/ Autodiffon 10-01 -2020 Abs Baso Cnt 0.1 10*3/uL Normal 0.0-0.2 [facility] Comment on above: Performed By: #### Brad Heard BMP3, HEMDF #### [facility] [address] [place] [address] Abs Neutrophile Cnt 6.3 10*3/uL Normal 1.8-7.0 [facility] Comment on above: Performed By: #### Brad Heard BMP3, HEMDF #### [facility] [address] [place] [address] Basophils/100 WBC (Bld) 0.6 % Normal 0.0-2.0 [facility] Comment on above: Performed By: #### Brad Heard BMP3, HEMDF #### [facility] [address] [place] [address] Eosinophils (Bld) [#/Vol] 0.3 10*3/uL Normal 0.0-0.5 [facility] Comment on above: Performed By: #### Brad Heard BMP3, HEMDF #### [facility] [address] [place] [address] Eosinophils/100 WBC (Bld) 3.5 % Normal 1.0-6.0 [facility] Comment on above: Performed By: #### Brad Heard BMP3, HEMDF #### [facility] [address] [place] [address] Erythrocyte distribution width (RBC) [Ratio] 15.8 % High 11.5-14.5 [facility] Comment on above: Performed By: #### Brad Heard BMP3, HEMDF #### [facility] [address] [place] [address] Granulocytes/100 WBC (Bld) 64.0 % Normal 40.0-80.0 [facility] Comment on above: Performed By: #### Brad G3, BMP3, HEMDF #### [facility] [address] [place] [address] Hematocrit (Bld) [Volume fraction] 32.6 % Low 35.0-47.0 [facility] Comment on above: Performed By: #### M G3, BMP3, HEMDF #### [facility] [address] [place] [address] Hemoglobin (Bld) [Mass/Vol] 11.1 g/dL Low 11.7-16.0 [facility] Comment on above: Performed By: #### M G3, BMP3, HEMDF #### [facility] [address] [place] [address] Lymphocytes (Bld) [#/Vol] 2.5 10*3/uL Normal 1.0-4.3 [facility] Comment on above: Performed By: #### M G3, BMP3, HEMDF #### [facility] [address] [place] [address] Lymphocytes/100 WBC (Bld) 25.4 % Normal 20.0-40.0 [facility] Comment on above: Performed By: #### Brad G3, BMP3, HEMDF #### [facility] [address] [place] [address] MCH (RBC) [Entitic mass] 25.2 pg Low 26.0-34.0 [facility] Comment on above: Performed By: #### Brad G3, BMP3, HEMDF #### [facility] [address] [place] [address] MCHC 33.9 % Normal 32.0-36.0 [facility] Comment on above: Performed By: #### M G3, BMP3, HEMDF #### [facility] [address] [place] [address] MCV (RBC) [Entitic vol] 74.3 fL Low 79.0-98.0 [facility] Comment on above: Performed By: #### M G3, BMP3, HEMDF #### [facility] [address] [place] [address] Monocytes (Bld) [#/Vol] 0.6 10*3/uL Normal 0.0-0.8 [facility] Comment on above: Performed By: #### Brad G3, BMP3, HEMDF #### [facility] [address] [place] [address] Monocytes/100 WBC (Bld) 6.5 % Normal 2.0-10.0 [facility] Comment on above: Performed By: #### DARREN Lugo3, HEMDF #### [facility] [address] [place] [address] Platelet mean volume (Bld) [Entitic vol] 7.5 fL Normal 7.4-10.4 [facility] Comment on above: Performed By: #### DARREN Lugo3, HEMDF #### [facility] [address] [place] [address] Platelets (Bld) [#/Vol] 350 10*3/uL Normal 140-440 [facility] Comment on above: Performed By: #### CAMDEN Lugo, HEMDF #### [facility] [address] [place] [address] RBC (Bld) [#/Vol] 4.39 10*6/uL Normal 3.80-5.20 [facility] Comment on above: Performed By: #### CAMDEN Lugo, HEMDF #### [facility] [address] [place] [address] WBC (Bld) [#/Vol] 9.9 10*3/uL Normal 3.6-10.7 [facility] Comment on above: Performed By: #### CAMDEN Lugo, HEMDF #### [facility] [address] [place] [address] Magnesiumon 05-09-2020 Magnesium [Mass/Vol] 2.1 mg/dL Normal 1.6-2.3 [facility] Comment on above: Performed By: #### DARREN Lugo3, HEMDF #### [facility] [address] [place] [address] Basic Metabolic Panelon 04-11 Anion gap [Moles/Vol] 11 mmol/L [facility] [place] Calcium [Mass/Vol] 9.6 mg/dL 8.4 - 10. 4 mg/dL [place], [place] Chloride [Moles/Vol] 106 mmol/L 98 - 10 7 mmol/L [place] CO2 [Moles/Vol] 22 mmol/L 22 - 30 mmol/L [place] Creatinine [Mass/Vol] 1.02 mg/dL 0.52 - 1.25 mg/dL [place] EGFR IF NonAfrican Japanese 76.6 mL/min >60 [place] Comment on above: KDIGO guidelines pro vide the following GFR categories: Stage GFR(ml/min/1.73 m2) Terms G1 >=90 Normal or high G2 60-89 Mildly decreased* G3a 45-59 Mildly to moderately decreased G3b 30-44 Moderately to severely decreased G4 15-29 Severely decreased G5 <15 Kidney failure *Relative to young adult level. In the absence of evidence of kidney damage, neither GFR category G1 nor G2 fulfill the criteria for CKD. The CKD-EPI equation is validated in individuals 18 years of age and older. Currently the best equation for estimating glomerular filtration rate (GFR) from serum creatinine in children is the Bedside Gupta equation. It is less accurate in patients with extremes of muscle mass, restriction of dietary protein, ingestion of creatine, extra-renal metabolism of creatinine, or treatment with medications that affect renal tubular creatinine secretion. GFR/1.73 sq M predicted among blacks MDRD (S/P/Bld) [Vol rate/Area] 88.8 mL/min/{1.73_m2} >60 [place], [place] Glucose [Mass/Vol] 94 mg/dL 70 - 100 mg/dL [place] Potassium [Moles/Vol] 4.0 mmol/L 3.5 - 5.1 mmol/L [place] Sodium [Moles/Vol] 139 mmol/L 135 - 145 mmol/L [place] Urea nitrogen [Mass/Vol] 11 mg/dL 7 - 20 mg/dL [place] CBC Auto Differentialon 09-3 0-2020 Absolute Baso # 0.1 10*3/uL 0 - 0.2 10*3/uL [place] Absolute Neut # 6.3 10*3/uL 1.8 - 7 10*3/uL [place] Basophils/100 WBC (Bld) 0.6 % 0 - 2 % [place] Eosinophils (Bld) [#/Vol] 0.3 10*3/uL 0 - 0.5 10*3/uL [place] Eosinophils/100 WBC (Bld) 3.5 % 1 - 6 % [place] Erythrocyte distribution width (RBC) [Ratio] 15.8 % High 11.5 - 14.5 % [place] Granulocytes/100 WBC (Bld) 64.0 % 40 - 80 % [place] Hematocrit (Bld) [Volume fraction] 32.6 % Low 35 - 47 % [place] Hemoglobin (Bld) [Mass/Vol] 11.1 g/dL Low 11.7 - 16 g/dL [place] Interpretation and review of laboratory results Abnormal [place] Lymphocytes (Bld) [#/Vol] 2.5 10*3/uL 1 - 4.3 10*3/uL [place] Lymphocytes/100 WBC (Bld) 25.4 % 20 - 40 % [place] MCH (RBC) [Entitic mass] 25.2 pg Low 26 - 34 pg [place] MCHC (RBC) [Mass/Vol] 33.9 % 32 - 36 % [place] MCV (RBC) [Entitic vol] 74.3 fL Low 79 - 98 fL [place] Monocytes (Bld) [#/Vol] 0.6 10*3/uL 0 - 0.8 10*3/uL [place] Monocytes/100 WBC (Bld) 6.5 % 2 - 10 % [place] Platelet mean volume (Bld) [Entitic vol] 7.5 fL 7.4 - 10.4 fL [place] Platelets (Bld) [#/Vol] 350 10*3/uL 140 - 440 10*3/uL [place] RBC (Bld) [#/Vol] 4.39 10*6/uL 3.8 - 5.2 10*6/uL [place] WBC (Bld) [#/Vol] 9.9 10*3/uL 3.6 - 10.7 10*3/uL [place] Test Performed by [facility], [address] , [place], [place] [address] [place] Magnesiumon 05-08-2020 Magnesium [Mass/Vol] 2.1 mg/dL 1.6 - 2 .3 mg/dL [place] Otheron 05-08-2020 Test Performed by [facility], [address] , [place], [place] [id number] [place] [address] Basic Metabolic Panelon 02-07 Calcium [Mass/Vol] 9.5 mg/dL Normal 8.4-10.4 [facility] Comment on above: Performed By: #### L FT3, HEMDF, BMP3, LACT3, LIPA4 #### [facility] [address] [place] [address] Glucose [Mass/Vol] 85 mg/dL Normal 70-100 [facility] Comment on above: Performed By: #### L FT3, HEMDF, BMP3, LACT3, LIPA4 #### [facility] [address] [place] [address] Urea nitrogen [Mass/Vol] 13 mg/dL Normal 7-20 [facility] Comment on above: Performed By: #### L FT3, HEMDF, BMP3, LACT3, LIPA4 #### [facility] [address] [place] [address] Anion Gap 13 Normal [facility] Comment on above: Performed By: #### L FT3, HEMDF, BMP3, LACT3, LIPA4 #### [facility] [address] [place] [address] CO2 [Moles/Vol] 23 mmol/L Normal 22-30 [facility] Comment on above: Performed By: #### L FT3, HEMDF, BMP3, LACT3, LIPA4 #### [facility] [address] [place] [address] Creatinine [Mass/Vol] 0.67 mg/dL Normal 0.52-1.25 [facility] Comment on above: Performed By: #### L FT3, HEMDF, BMP3, LACT3, LIPA4 #### [facility] [address] [place] [address] eGFR OTHER > 90.0 Normal >60 [facility] Comment on above: Result Comment: KDIG O guidelines provide the following GFR categories: Stage GFR(ml/min/1.73 m2) Terms G1 >=90 Normal or high G2 60-89 Mildly decreased* G3a 45-59 Mildly to moderately decreased G3b 30-44 Moderately to severely decreased G4 15-29 Severely decreased G5 <15 Kidney failure *Relative to young adult level. In the absence of evidence of kidney damage, neither GFR category G1 nor G2 fulfill the criteria for CKD. The CKD-EPI equation is validated in individuals 18 years of age and older. Currently the best equation for estimating glomerular filtration rate (GFR) from serum creatinine in children is the Bedside Gupta equation. It is less accurate in patients with extremes of muscle mass, restriction of dietary protein, ingestion of creatine, extra-renal metabolism of creatinine, or treatment with medications that affect renal tubular creatinine secretion. Performed By: #### L FT3, HEMDF, BMP3, LACT3, LIPA4 #### [facility] [address] [facility] [place] [address] GFR/1.73 sq M.predicted among blacks MDRD (S/P/Bld) [Vol rate/Area] mL/min/{1.73_m2} Normal >60 [facility] Comment on above: Performed By: #### L FT3, HEMDF, BMP3, LACT3, LIPA4 #### [facility] [address] [facility] [place] [address] Chloride [Moles/Vol] 104 mmol/L Normal 98-107 [facility] Comment on above: Performed By: #### L FT3, HEMDF, BMP3, LACT3, LIPA4 #### [facility] [address] [facility] [address] Potassium [Moles/Vol] 4.0 mmol/L Normal 3.5-5.1 [facility] Comment on above: Performed By: #### L FT3, HEMDF, BMP3, LACT3, LIPA4 #### [facility] [address] [facility] [place] [address] Sodium [Moles/Vol] 140 mmol/L Normal 135-145 [facility] Comment on above: Performed By: #### L FT3, HEMDF, BMP3, LACT3, LIPA4 #### [facility] [address] [place] [address] Hemogram w/ Autodiffon 02-27 Abs Baso Cnt 0.1 10*3/uL Normal 0.0-0.2 [facility] Comment on above: Performed By: #### L FT3, HEMDF, BMP3, LACT3, LIPA4 #### [facility] [address] [place] [address] Abs Neutrophile Cnt 4.7 10*3/uL Normal 1.8-7.0 [facility] Comment on above: Performed By: #### L FT3, HEMDF, BMP3, LACT3, LIPA4 #### [facility] [address] [place] [address] Basophils/100 WBC (Bld) 1.5 % Normal 0.0-2.0 [facility] Comment on above: Performed By: #### L FT3, HEMDF, BMP3, LACT3, LIPA4 #### [facility] [address] [place] [address] Eosinophils (Bld) [#/Vol] 0.3 10*3/uL Normal 0.0-0.5 [facility] Comment on above: Performed By: #### L FT3, HEMDF, BMP3, LACT3, LIPA4 #### [facility] [address] [place] [address] Eosinophils/100 WBC (Bld) 4.1 % Normal 1.0-6.0 [facility] Comment on above: Performed By: #### L FT3, HEMDF, BMP3, LACT3, LIPA4 #### [facility] [address] [place] [address] Erythrocyte distribution width (RBC) [Ratio] 15.4 % High 11.5-14.5 [facility] Comment on above: Performed By: #### L FT3, HEMDF, BMP3, LACT3, LIPA4 #### [facility] [address] [place] [address] Granulocytes/100 WBC (Bld) 56.4 % Normal 40.0-80.0 [facility] Comment on above: Performed By: #### L FT3, HEMDF, BMP3, LACT3, LIPA4 #### [facility] [address] [place] [address] Hematocrit (Bld) [Volume fraction] 32.5 % Low 35.0-47.0 [facility] Comment on above: Performed By: #### L FT3, HEMDF, BMP3, LACT3, LIPA4 #### [facility] [address] [place] [address] Hemoglobin (Bld) [Mass/Vol] 10.8 g/dL Low 11.7-16.0 [facility] Comment on above: Performed By: #### L FT3, HEMDF, BMP3, LACT3, LIPA4 #### [facility] [address] [place] [address] Lymphocytes (Bld) [#/Vol] 2.7 10*3/uL Normal 1.0-4.3 [facility] Comment on above: Performed By: #### L FT3, HEMDF, BMP3, LACT3, LIPA4 #### [facility] [address] [place] [address] Lymphocytes/100 WBC (Bld) 31.6 % Normal 20.0-40.0 [facility] Comment on above: Performed By: #### L FT3, HEMDF, BMP3, LACT3, LIPA4 #### [facility] [address] [place] [address] MCH (RBC) [Entitic mass] 24.9 pg Low 26.0-34.0 [facility] Comment on above: Performed By: #### L FT3, HEMDF, BMP3, LACT3, LIPA4 #### [facility] [address] [place] [address] MCHC 33.1 % Normal 32.0-36.0 [facility] Comment on above: Performed By: #### L FT3, HEMDF, BMP3, LACT3, LIPA4 #### [facility] [address] [place] [address] MCV (RBC) [Entitic vol] 75.3 fL Low 79.0-98.0 [facility] Comment on above: Performed By: #### L FT3, HEMDF, BMP3, LACT3, LIPA4 #### [facility] [address] [place] [address] Monocytes (Bld) [#/Vol] 0.5 10*3/uL Normal 0.0-0.8 [facility] Comment on above: Performed By: #### L FT3, HEMDF, BMP3, LACT3, LIPA4 #### [facility] [address] [place] [address] Monocytes/100 WBC (Bld) 6.4 % Normal 2.0-10.0 [facility] Comment on above: Performed By: #### L FT3, HEMDF, BMP3, LACT3, LIPA4 #### [facility] [address] [place] [address] Platelet mean volume (Bld) [Entitic vol] 7.3 fL Low 7.4-10.4 [facility] Comment on above: Performed By: #### L FT3, HEMDF, BMP3, LACT3, LIPA4 #### [facility] [address] [place] [address] Platelets (Bld) [#/Vol] 392 10*3/uL Normal 140-440 [facility] Comment on above: Performed By: #### L FT3, HEMDF, BMP3, LACT3, LIPA4 #### [facility] [address] [place] [address] RBC (Bld) [#/Vol] 4.32 10*6/uL Normal 3.80-5.20 [facility] Comment on above: Performed By: #### L FT3, HEMDF, BMP3, LACT3, LIPA4 #### [facility] [address] [place] [address] WBC (Bld) [#/Vol] 8.4 10*3/uL Normal 3.6-10.7 [facility] Comment on above: Performed By: #### L FT3, HEMDF, BMP3, LACT3, LIPA4 #### [facility] [address] [place] [address] Basic Metabolic Panelon 07-2 Anion gap [Moles/Vol] 13 mmol/L [place] Calcium [Mass/Vol] 9.5 mg/dL 8.4 - 10. 4 mg/dL [place] Chloride [Moles/Vol] 104 mmol/L 98 - 10 7 mmol/L [place] CO2 [Moles/Vol] 23 mmol/L 22 - 30 mmol/L [place] Creatinine [Mass/Vol] 0.67 mg/dL 0.52 - 1.25 mg/dL [place] EGFR IF NonAfrican Japanese >90.0 >60 mL/min [place] Comment on above: KDIGO guidelines pro vide the following GFR categories: Stage GFR(ml/min/1.73 m2) Terms G1 >=90 Normal or high G2 60-89 Mildly decreased* G3a 45-59 Mildly to moderately decreased G3b 30-44 Moderately to severely decreased G4 15-29 Severely decreased G5 <15 Kidney failure *Relative to young adult level. In the absence of evidence of kidney damage, neither GFR category G1 nor G2 fulfill the criteria for CKD. The CKD-EPI equation is validated in individuals 18 years of age and older. Currently the best equation for estimating glomerular filtration rate (GFR) from serum creatinine in children is the Bedside Gupta equation. It is less accurate in patients with extremes of muscle mass, restriction of dietary protein, ingestion of creatine, extra-renal metabolism of creatinine, or treatment with medications that affect renal tubular creatinine secretion. GFR/1.73 sq M predicted among blacks MDRD (S/P/Bld) [Vol rate/Area] mL/min/{1.73_m2} >60 mL/min [place] Glucose [Mass/Vol] 85 mg/dL 70 - 100 mg/dL [place] Potassium [Moles/Vol] 4.0 mmol/L 3.5 - 5.1 mmol/L [place], [place] Sodium [Moles/Vol] 140 mmol/L 135 - 145 mmol/L [place], [place] Urea nitrogen [Mass/Vol] 13 mg/dL 7 - 20 mg/dL [place], [place] Test Performed by [facility], [address] , [address] Hemogram (CBC) w/Auto Diffon 02-27-2020 Absolute Baso # 0.1 10*3/uL 0 - 0.2 10*3/uL [place], [place] Absolute Neut # 4.7 10*3/uL 1.8 - 7 10*3/uL [place], [place] Basophils/100 WBC (Bld) 1.5 % 0 - 2 % [place] Eosinophils (Bld) [#/Vol] 0.3 10*3/uL 0 - 0.5 10*3/uL [place] Eosinophils/100 WBC (Bld) 4.1 % 1 - 6 % [place] Erythrocyte distribution width (RBC) [Ratio] 15.4 % High 11.5 - 14.5 % [place] Granulocytes/100 WBC (Bld) 56.4 % 40 - 80 % [place] Hematocrit (Bld) [Volume fraction] 32.5 % Low 35 - 47 % [place] Hemoglobin (Bld) [Mass/Vol] 10.8 g/dL Low 11.7 - 16 g/dL [place], [place] Interpretation and review of laboratory results Abnormal [place] Lymphocytes (Bld) [#/Vol] 2.7 10*3/uL 1 - 4.3 10*3/uL [place], [place] Lymphocytes/100 WBC (Bld) 31.6 % 20 - 40 % [place] MCH (RBC) [Entitic mass] 24.9 pg Low 26 - 34 pg [place] MCHC (RBC) [Mass/Vol] 33.1 % 32 - 36 % [place] MCV (RBC) [Entitic vol] 75.3 fL Low 79 - 98 fL [place], [place] Monocytes (Bld) [#/Vol] 0.5 10*3/uL 0 - 0.8 10*3/uL [place], [place] Monocytes/100 WBC (Bld) 6.4 % 2 - 10 % [place] Platelet mean volume (Bld) [Entitic vol] 7.3 fL Low 7.4 - 10.4 fL [place] Platelets (Bld) [#/Vol] 392 10*3/uL 140 - 440 10*3/uL [place] RBC (Bld) [#/Vol] 4.32 10*6/uL 3.8 - 5.2 10*6/uL [place] WBC (Bld) [#/Vol] 8.4 10*3/uL 3.6 - 10.7 10*3/uL [place] Test Performed by [facility], [address] , [place], [place] [address] [place], [place] , urineon 0 Beta HCG ( test) Ql (U) Negative Negative NA [place], [place] Comment on above: is the mos t common reason for HCG in urine, although choriocarcinoma, hydatidiform mole, and certain nontropho- blastic malignancies also result in detectable urinary HCG levels. Sensitivity = 20mIU/mL. Test Performed by [facility], [address] [place] [address] [place], [place] CBCon 02-20-2020 Erythrocyte distribution width (RBC) [Ratio] 15.7 % High 11.5 - 14.5 % [place] Hematocrit (Bld) [Volume fraction] 30.9 % Low 35 - 47 % [place] Hemoglobin (Bld) [Mass/Vol] 9.9 g/dL Low 11.7 - 16 g/dL [place], [place] Interpretation and review of laboratory results Abnormal [place] MCH (RBC) [Entitic mass] 24.4 pg Low 26 - 34 pg [place] MCHC (RBC) [Mass/Vol] 32.1 % 32 - 36 % [place] MCV (RBC) [Entitic vol] 76.1 fL Low 79 - 98 fL [place], [place] Platelet mean volume (Bld) [Entitic vol] 7.5 fL 7.4 - 10.4 fL [place] Platelets (Bld) [#/Vol] 344 10*3/uL 140 - 440 10*3/uL [place] RBC (Bld) [#/Vol] 4.06 10*6/uL 3.8 - 5.2 10*6/uL [place] WBC (Bld) [#/Vol] 9.4 10*3/uL 3.6 - 10.7 10*3/uL [place] Test Performed by [facility], [address] [place] [address] [place] CT Abdomen Pelvis W Contrast on 02-20-2020 Patient Name: SOCORRO ORELLANA ---CT--- Exam Date/Time 02/20/2020 19:37:[address] Abdomen/Pelvis w/ IV Contrast (IV Onl Ordering Physician MD DANISH, CORTES Turcios Accession Number [id number] CPT4 Codes 10075 (CT Abdomen/Pelvis w/ IV Contrast (IV Onl), Q9967 (CT ISOVUE 370MG/[id number]&ML& 1) Reason For Exam RLQ Abdominal Pain Report CT ABDOMEN AND PELVIS WITH CONTRAST CLINICAL INDICATION: RLQ Abdominal Pain TECHNIQUE: CT scan of the abdomen and pelvis, with IV contrast. Multiplanar reformations. COMPARISON: January,. FINDINGS: Abdomen: Visualized lung bases grossly unremarkable. Gallbladder surgically absent. Liver without significant abnormality. Spleen without significant abnormality. Pancreas without significant abnormality. Kidneys without significant abnormality. Adrenal glands without significant abnormality. Pelvis: Bowel grossly unremarkable. Appendix within normal limits. Trace amount of nonspecific, free pelvic fluid, may be physiologic. No discrete abscess. Abdominal aorta is nonaneurysmal. Heterogeneous and possibly partially hemorrhagic, cystic focus in the right ovary measuring approximately 2.5 cm. Axial skeleton grossly intact. Small and ovoid hypodensity again noted in the right psoas muscle anterior to the right hip, about the same. IMPRESSION: 1. Findings which may represent physiologic cystic change and sequelae of right ovarian follicle or cyst rupture. 2. Small amount of possible bursal fluid in vicinity of right psoas muscle may be related to bursitis, similar to comparison. 3. No other acute findings. Report Dictated on Workstation: [id number] --- Final --- Dictated: 02/20/2020 7:46 pm Dictating Physician: MD GARCIA WENDELL Signed Date and Time: 02/20/2020 7:53 pm Signed by: MD GARCIA WENDELL Transcribed Date and Time: 02/20/2020 7:46 [place], [place] [facility] Incoming Radiology Results From [facility] - 02/20/2020 7:55 PM EDT Patient Name: SOCORRO GONSALES ---CT--- Exam Date/Time 02/20/2020 19:37:[address] Abdomen/Pelvis w/ IV Contrast (IV Onl Ordering Physician MD EDWARDS PHILIP E Accession Number [id number] CPT4 Codes 86814 (CT Abdomen/Pelvis w/ IV Contrast (IV Onl), Q9967 (CT ISOVUE 370MG/[id number]&ML& 1) Reason For Exam RLQ Abdominal Pain Report CT ABDOMEN AND PELVIS WITH CONTRAST CLINICAL INDICATION: RLQ Abdominal Pain TECHNIQUE: CT scan of the abdomen and pelvis, with IV contrast. Multiplanar reformations. COMPARISON: January,. FINDINGS: Abdomen: Visualized lung bases grossly unremarkable. Gallbladder surgically absent. Liver without significant abnormality. Spleen without significant abnormality. Pancreas without significant abnormality. Kidneys without significant abnormality. Adrenal glands without significant abnormality. Pelvis: Bowel grossly unremarkable. Appendix within normal limits. Trace amount of nonspecific, free pelvic fluid, may be physiologic. No discrete abscess. Abdominal aorta is nonaneurysmal. Heterogeneous and possibly partially hemorrhagic, cystic focus in the right ovary measuring approximately 2.5 cm. Axial skeleton grossly intact. Small and ovoid hypodensity again noted in the right psoas muscle anterior to the right hip, about the same. IMPRESSION: 1. Findings which may represent physiologic cystic change and sequelae of right ovarian follicle or cyst rupture. 2. Small amount of possible bursal fluid in vicinity of right psoas muscle may be related to bursitis, similar to comparison. 3. No other acute findings. Report Dictated on Workstation: [id number] --- Final --- Dictated: 02/20/2020 7:46 pm Dictating Physician: MD GARCIA WENDELL Signed Date and Time: 02/20/2020 7:53 pm Signed by: MD GARCIA WENDELL Transcribed Date and Time: 02/20/2020 7:46 [place], [place] Comprehensive Metabolic Pane tim 02-20-2020 Albumin [Mass/Vol] 4.4 g/dL 3.5 - 5 g/dL [place] ALP [Catalytic activity/Vol] 83 U/L 38 - 126 U/L [place], [place] ALT [Catalytic activity/Vol] 18 U/L 0 - 34 U/L [place], [place] Comment on above: The ALT test is perf ormed by an updated assay method. Please note that the reference intervals have been changed and are now sex specific. Anion gap [Moles/Vol] 11 mmol/L [place], [place] AST [Catalytic activity/Vol] 30 U/L 15 - 46 U/L [place], [place] Bilirubin Ql (U) 0.4 mg/dL 0.2 - 1.3 mg/dL [place], [place] Calcium [Mass/Vol] 9.2 mg/dL 8.4 - 10. 4 mg/dL [place], [place] Chloride [Moles/Vol] 104 mmol/L 98 - 10 7 mmol/L [place], [place] CO2 [Moles/Vol] 21 mmol/L Low 22 - 30 mmol/L [place], [place] Creatinine [Mass/Vol] 0.64 mg/dL 0.52 - 1.25 mg/dL [place], [place] EGFR IF NonAfrican Japanese >90.0 >60 mL/min [place], [place] Comment on above: KDIGO guidelines pro vide the following GFR categories: Stage GFR(ml/min/1.73 m2) Terms G1 >=90 Normal or high G2 60-89 Mildly decreased* G3a 45-59 Mildly to moderately decreased G3b 30-44 Moderately to severely decreased G4 15-29 Severely decreased G5 <15 Kidney failure *Relative to young adult level. In the absence of evidence of kidney damage, neither GFR category G1 nor G2 fulfill the criteria for CKD. The CKD-EPI equation is validated in individuals 18 years of age and older. Currently the best equation for estimating glomerular filtration rate (GFR) from serum creatinine in children is the Bedside Gupta equation. It is less accurate in patients with extremes of muscle mass, restriction of dietary protein, ingestion of creatine, extra-renal metabolism of creatinine, or treatment with medications that affect renal tubular creatinine secretion. GFR/1.73 sq M predicted among blacks MDRD (S/P/Bld) [Vol rate/Area] mL/min/{1.73_m2} >60 mL/min [place], [place] Glucose [Mass/Vol] 89 mg/dL 70 - 100 mg/dL [place], [place] Interpretation and review of laboratory results Abnormal [place], [place] Potassium [Moles/Vol] 3.8 mmol/L 3.5 - 5.1 mmol/L [place], [place] Protein [Mass/Vol] 7.6 g/dL 6.3 - 8.2 g/dL [place] Sodium [Moles/Vol] 137 mmol/L 135 - 145 mmol/L [place], [place] Urea nitrogen [Mass/Vol] 8 mg/dL 7 - 20 mg/dL [place], [place] Test Performed by [id number] [place] [address] Culture, Urineon 02-20-2020 Bacteria identified Cx Nom (U) Normal urogenital danna present. [place], [place] Test Performed by [place] [address] [place] [address] Specimen Source Comment:Urine, clean catch [place], [place] PROTIME/INR & PTTon 02-20-20 20 aPTT Coag (Bld) [Time] 23.4 s 20 - 30.5 s [place], [place] Comment on above: NOTE: The therapeuti c time for Heparin anticoagulation, based on Xa activity inhibition, is an APTT of 46-80 seconds. INR Coag (PPP) [Relative time] 1.0 {INR} [place], [place] Comment on above: Recommended Anticoag ulant Therapy: SEE BELOW ----- INR of 2.0 - 3.0 : - Prophylaxis of Venous Thrombosis (high-risk surgery) - Treatment of Venous Thrombosis - Treatment of Pulmonary Embolism (Includes tissue heart valves, Acute Myocardial Infarction to prevent systemic embolism, Valvular Heart Disease, and Atrial Fibrillation) ----- INR of 2.5 - 3.5 : - Mechanical Prosthetic Valves (high risk) - If oral anticoagulant therapy is used to prevent Myocardial Infarction PT Coag (PPP) [Time] 10.9 s 9 - 12 s [place], [place] Comment on above: . Test Performed by [facility], [facility] [place], [place] [id number] [place] [address] VAGINAL PATHOGENS DNA PANELo n 02-20-2020 Bacterial Vaginosis Markers Negative [place], [place] A[place] GALABRATA Negative [place] Austin Krusei Negative [place], [place] SPP. Negative [place], [place] Trichomonas vaginalis Negative Expected Value: Negative Method: Real Time PCR by BD-MAX [place], [place] Test Performed by [facility], [facility] [place] [address] Specimen Source Comment:Vaginal Use UVE Collection Kit [place], [place] Add On Lab Teston 02-19-2020 Sodium [Moles/Vol] Accepted [place], [place] Comment on above: Specimen available & acceptable for analysis. Test Performed by [facility], [facility] [place], [place] [id number] [place] [address] Basic Metabolic Panelon 02-06 Anion gap [Moles/Vol] 10 mmol/L [place], [place] Calcium [Mass/Vol] 9.9 mg/dL 8.4 - 10. 4 mg/dL [place], [place] Chloride [Moles/Vol] 105 mmol/L 98 - 10 7 mmol/L [place], [place] CO2 [Moles/Vol] 22 mmol/L 22 - 30 mmol/L [place], [place] Creatinine [Mass/Vol] 0.62 mg/dL 0.52 - 1.25 mg/dL [place], [place] EGFR IF NonAfrican Japanese >90.0 >60 mL/min [place], [place] Comment on above: KDIGO guidelines pro vide the following GFR categories: Stage GFR(ml/min/1.73 m2) Terms G1 >=90 Normal or high G2 60-89 Mildly decreased* G3a 45-59 Mildly to moderately decreased G3b 30-44 Moderately to severely decreased G4 15-29 Severely decreased G5 <15 Kidney failure *Relative to young adult level. In the absence of evidence of kidney damage, neither GFR category G1 nor G2 fulfill the criteria for CKD. The CKD-EPI equation is validated in individuals 18 years of age and older. Currently the best equation for estimating glomerular filtration rate (GFR) from serum creatinine in children is the Bedside Gupta equation. It is less accurate in patients with extremes of muscle mass, restriction of dietary protein, ingestion of creatine, extra-renal metabolism of creatinine, or treatment with medications that affect renal tubular creatinine secretion. GFR/1.73 sq M predicted among blacks MDRD (S/P/Bld) [Vol rate/Area] mL/min/{1.73_m2} >60 mL/min [place], [place] Glucose [Mass/Vol] 94 mg/dL 70 - 100 mg/dL [place] Potassium [Moles/Vol] 4.1 mmol/L 3.5 - 5.1 mmol/L [place], [place] Sodium [Moles/Vol] 137 mmol/L 135 - 145 mmol/L [place], [place] Urea nitrogen [Mass/Vol] 10 mg/dL 7 - 20 mg/dL [place], [place] Test Performed by [facility], [address] [place] [id number] [place] [address] C. Trachomatis / N. Gonorrho eae, DNA Probeon 02-19-2020 C. trachomatis DNA ALLISON+probe Ql (Genital specimen) NOT Detected Chlamydia trachomatis Nucleic Acid NOT Detected by DNA Amplification using the CepStoreliftid System. Culture is the only recommended test in medical-legal cases such as suspected child abuse or molestation. [place] N. gonorrhoeae DNA ALLISON+probe Ql (Unsp spec) NOT Detected Neisseria gonorrhoeae Nucleic Acid NOT Detected by DNA Amplification using the Cepheid System. Culture is the only recommended test in medical-legal cases such as suspected child abuse or molestation. [place], [place] Test Performed by [facility], [address] [place] [id number] Specimen Source Comment:Cervix [place], [place] Hemogram (CBC)on 02-19-2020 Erythrocyte distribution width (RBC) [Ratio] 15.6 % High 11.5 - 14.5 % [place] Hematocrit (Bld) [Volume fraction] 33.9 % Low 35 - 47 % [place] Hemoglobin (Bld) [Mass/Vol] 10.7 g/dL Low 11.7 - 16 g/dL [place], [place] Interpretation and review of laboratory results Abnormal [place], [place] MCH (RBC) [Entitic mass] 23.8 pg Low 26 - 34 pg [place] MCHC (RBC) [Mass/Vol] 31.6 % Low 32 - 36 % [place] MCV (RBC) [Entitic vol] 75.5 fL Low 79 - 98 fL [place], [place] Platelet mean volume (Bld) [Entitic vol] 7.2 fL Low 7.4 - 10.4 fL [place], [place] Platelets (Bld) [#/Vol] 368 10*3/uL 140 - 440 10*3/uL [place], [place] RBC (Bld) [#/Vol] 4.48 10*6/uL 3.8 - 5.2 10*6/uL [place], [place] WBC (Bld) [#/Vol] 9.5 10*3/uL 3.6 - 10.7 10*3/uL [place], [place] Test Performed by [facility], [address] [place] [address] , Urineon 0 Beta HCG ( test) Ql (U) Negative Negative NA [place], [place] Comment on above: is the mos t common reason for HCG in urine, although choriocarcinoma, hydatidiform mole, and certain nontropho- blastic malignancies also result in detectable urinary HCG levels. Sensitivity = 20mIU/mL. Test Performed by [facility], [address] [place] [address] TYPE AND SCREENon 02-19-2020 Sodium [Moles/Vol] Negative [place], [place] Sodium [Moles/Vol] A [place], [place] Sodium [Moles/Vol] Positive [place], [place] Test Performed by [facility], [address] [place] [address] US PELVIS COMPLETE NON-OB TR ANSABDOMINAL AND TRANSVAGINALon 02-19-2020 Patient Name: SOCORRO ORELLANA ---Ultrasound--- Exam Date/Time 02/19/2020 21:12:00 EDT Exam US Pelvis TA/TV Ordering Physician BLAIR MOSER Accession Number [id number] CPT4 Codes 36534 (US Pelvis TA/TV), 71347 (US Transvaginal) Reason For Exam pelvic pain Report ULTRASOUND PELVIS: CLINICAL INDICATION: pelvic pain LMP: 01/15/2020 COMPARISON: none TECHNIQUE: Transabdominal and transvaginal to optimally evaluate the ovaries and adnexal structures including color flow and spectral Doppler imaging FINDINGS: Uterus: Orientation: Retroverted Size: 8.8 x 6.7 x 5.1 cm Endometrium: 18 mm Mass: none Cervix: normal Right Ovary: Size: 3.8 x 2.9 x 3.4 cm Mass: none Cyst: 2.0 cm dominant follicle seen Color flow/Doppler waveform: normal Left Ovary: Size: 2.6 x 2.3 x 1.8 cm Mass: none Cyst: none Color flow/Doppler waveform: normal Cul-de-sac: Mild free fluid is seen within the pelvis. IMPRESSION: 1. Abnormal thickening of endometrial stripe complex, particularly in the fundus. This may be due to endometrial hypertrophy or polyp. Neoplasm cannot be excluded. 2. Mild free fluid within the pelvis, which may be physiologic. Report Dictated on --- Final --- Dictated: 02/19/2020 9:54 pm Dictating Physician: MD DE PAZ JAMES Signed Date and Time: 02/19/2020 10:05 pm Signed by: MD DE PAZ JAMES Transcribed Date and Time: 02/19/2020 10:04 [facility], [place], [place] [facility], [facility] Incoming Radiology Results From [facility] - 02/19/2020 10:06 PM EDT Patient Name: SOCORRO GONSALES ---Ultrasound--- Exam Date/Time 02/19/2020 21:12:00 EDT Exam US Pelvis TA/TV Ordering Physician BLAIR MOSRE Accession Number [id number] CPT4 Codes 14351 (US Pelvis TA/TV), 74773 (US Transvaginal) Reason For Exam pelvic pain Report ULTRASOUND PELVIS: CLINICAL INDICATION: pelvic pain LMP: 01/15/2020 COMPARISON: none TECHNIQUE: Transabdominal and transvaginal to optimally evaluate the ovaries and adnexal structures including color flow and spectral Doppler imaging FINDINGS: Uterus: Orientation: Retroverted Size: 8.8 x 6.7 x 5.1 cm Endometrium: 18 mm Mass: none Cervix: normal Right Ovary: Size: 3.8 x 2.9 x 3.4 cm Mass: none Cyst: 2.0 cm dominant follicle seen Color flow/Doppler waveform: normal Left Ovary: Size: 2.6 x 2.3 x 1.8 cm Mass: none Cyst: none Color flow/Doppler waveform: normal Cul-de-sac: Mild free fluid is seen within the pelvis. IMPRESSION: 1. Abnormal thickening of endometrial stripe complex, particularly in the fundus. This may be due to endometrial hypertrophy or polyp. Neoplasm cannot be excluded. 2. Mild free fluid within the pelvis, which may be physiologic. Report Dictated on --- Final --- Dictated: 02/19/2020 9:54 pm Dictating Physician: MD DE PAZ JAMES Signed Date and Time: 02/19/2020 10:05 pm Signed by: MD DE PAZ JAMES Transcribed Date and Time: 02/19/2020 10:04 [place], [place] Urinalysison 02-19-2020 Appearance (U) Clear Clear [place], [place] Comment on above: . Bilirubin Urine Negative Negative mg/dL [place], [place] Comment on above: . Color (U) Colorless Lt. Yellow [place], [place] Comment on above: . Glucose, Ur Normal Normal (<70) mg/dL [place], [place] Comment on above: . Ketones Ql (U) Negative Negative mg/dL [place], [place] Comment on above: . LEUKOCYTES, UA Negative Negative Reyes/uL [place], [place] Comment on above: . Nitrite, Urine Negative Negative NA [place], [place] Comment on above: . Occult Blood,Urine Negative Negative mg/dL [place], [place] Comment on above: . pH (U) 6.0 [pH] [place], [place] Comment on above: . Protein (U) [Mass/Vol] Negative Negative mg/dL [place], [place] Comment on above: . Specific [place], Urine 1.012 [place], [place] Comment on above: . Urobilinogen, Urine Normal Normal ( 0-1) mg/dL [place], [place] Comment on above: . Test Performed by [facility], [address] [place] [address] [place] Comprehensive Metabolic Pane tim 01-26-2020 Albumin [Mass/Vol] 4.6 g/dL 3.5 - 5 g/dL [place] ALP [Catalytic activity/Vol] 70 U/L 38 - 126 U/L [place], [place] ALT [Catalytic activity/Vol] 19 U/L 0 - 34 U/L [place], [place] Comment on above: The ALT test is perf ormed by an updated assay method. Please note that the reference intervals have been changed and are now sex specific. Anion gap [Moles/Vol] 12 mmol/L [place] AST [Catalytic activity/Vol] 32 U/L 15 - 46 U/L [place] Bilirubin Ql (U) <0.1 Low 0.2 - 1.3 mg/dL [place], [place] Calcium [Mass/Vol] 9.1 mg/dL 8.4 - 10. 4 mg/dL [place], [place] Chloride [Moles/Vol] 109 mmol/L High 98 - 10 7 mmol/L [place] CO2 [Moles/Vol] 20 mmol/L Low 22 - 30 mmol/L [place], [place] Creatinine [Mass/Vol] 0.71 mg/dL 0.52 - 1.25 mg/dL [place], [place] EGFR IF NonAfrican Japanese >90.0 >60 mL/min [place], [place] Comment on above: KDIGO guidelines pro vide the following GFR categories: Stage GFR(ml/min/1.73 m2) Terms G1 >=90 Normal or high G2 60-89 Mildly decreased* G3a 45-59 Mildly to moderately decreased G3b 30-44 Moderately to severely decreased G4 15-29 Severely decreased G5 <15 Kidney failure *Relative to young adult level. In the absence of evidence of kidney damage, neither GFR category G1 nor G2 fulfill the criteria for CKD. The CKD-EPI equation is validated in individuals 18 years of age and older. Currently the best equation for estimating glomerular filtration rate (GFR) from serum creatinine in children is the Bedside Gupta equation. It is less accurate in patients with extremes of muscle mass, restriction of dietary protein, ingestion of creatine, extra-renal metabolism of creatinine, or treatment with medications that affect renal tubular creatinine secretion. GFR/1.73 sq M predicted among blacks MDRD (S/P/Bld) [Vol rate/Area] mL/min/{1.73_m2} >60 mL/min [place], [place] Glucose [Mass/Vol] 111 mg/dL High 70 - 100 mg/dL [place] Interpretation and review of laboratory results Abnormal [place], [place] Potassium [Moles/Vol] 3.7 mmol/L 3.5 - 5.1 mmol/L [place], [place] Protein [Mass/Vol] 8.3 g/dL High 6.3 - 8.2 g/dL [place] Sodium [Moles/Vol] 141 mmol/L 135 - 145 mmol/L [place], [place] Urea nitrogen [Mass/Vol] 10 mg/dL 7 - 20 mg/dL [place], [place] Test Performed by [facility], [address] , [address] HGC Urine Qual [place] 2019 Beta HCG ( test) Ql (U) Negative Negative NA [place], [place] Comment on above: is the mos t common reason for HCG in urine, although choriocarcinoma, hydatidiform mole, and certain nontropho- blastic malignancies also result in detectable urinary HCG levels. Sensitivity = 20mIU/mL. Hemogram (CBC) w/Auto Diffon 01-26-2020 Absolute Baso # 0.0 10*3/uL 0 - 0.2 10*3/uL [place], [place] Absolute Neut # 4.5 10*3/uL 1.8 - 7 10*3/uL [place], [place] Basophils/100 WBC (Bld) 0.3 % 0 - 2 % [place], [place] Eosinophils (Bld) [#/Vol] 0.4 10*3/uL 0 - 0.5 10*3/uL [place], [place] Eosinophils/100 WBC (Bld) 5.2 % 1 - 6 % [place] Erythrocyte distribution width (RBC) [Ratio] 15.4 % High 11.5 - 14.5 % [place], [place] Granulocytes/100 WBC (Bld) 56.8 % 40 - 80 % [place], [place] Hematocrit (Bld) [Volume fraction] 32.5 % Low 35 - 47 % [place], [place] Hemoglobin (Bld) [Mass/Vol] 10.7 g/dL Low 11.7 - 16 g/dL [place], [place] Interpretation and review of laboratory results Abnormal [place] Lymphocytes (Bld) [#/Vol] 2.5 10*3/uL 1 - 4.3 10*3/uL [place], [place] Lymphocytes/100 WBC (Bld) 30.9 % 20 - 40 % [place] MCH (RBC) [Entitic mass] 25.2 pg Low 26 - 34 pg [place], [place] MCHC (RBC) [Mass/Vol] 33.0 % 32 - 36 % [place] MCV (RBC) [Entitic vol] 76.5 fL Low 79 - 98 fL [place], [place] Monocytes (Bld) [#/Vol] 0.5 10*3/uL 0 - 0.8 10*3/uL [place], [place] Monocytes/100 WBC (Bld) 6.8 % 2 - 10 % [place] Platelet mean volume (Bld) [Entitic vol] 7.4 fL 7.4 - 10.4 fL [place], [place] Platelets (Bld) [#/Vol] 386 10*3/uL 140 - 440 10*3/uL [place] RBC (Bld) [#/Vol] 4.25 10*6/uL 3.8 - 5.2 10*6/uL [place], [place] WBC (Bld) [#/Vol] 8.0 10*3/uL 3.6 - 10.7 10*3/uL [place], [place] Otheron 01-26-2020 Test Performed by [facility], [facility] Jia Singh , [address] Urinalysison 01-26-2020 Appearance (U) Turbid Abnormal Clear NA [place], [place] Comment on above: . Bacteria, UA Few (1-5) Abnormal Negative /[HPF] [place], [place] Comment on above: . Bilirubin Urine Negative Negative mg/dL [place], [place] Comment on above: . Color (U) LIGHT YELLOW Lt. Yellow NA [place], [place] Comment on above: . Glucose, Ur Normal Normal (<70) mg/dL [place], [place] Comment on above: . Interpretation and review of laboratory results Abnormal [place], [place] Ketones Ql (U) Negative Negative mg/dL [place], [place] Comment on above: . LEUKOCYTES, UA 250 Abnormal Negative Reyes/uL [place], [place] Comment on above: . Nitrite, Urine Negative Negative NA [place], [place] Comment on above: . Occult Blood,Urine >1.0 Abnormal Negative mg/dL [place] Comment on above: . pH (U) 6.5 [pH] [place], [place] Comment on above: . Protein (U) [Mass/Vol] 20 mg/dL Abnormal Negative [place], [place] Comment on above: . RBC (U) [#/Vol] /uL Abnormal 0 - 2 /[HPF] [place], [place] Comment on above: . Specific [place], Urine 1.025 [place], [place] Comment on above: . Squam Epithel, UA 3-5 3 - 5 /[HPF] [place], [place] Comment on above: . Urobilinogen, Urine Normal Normal ( 0-1) mg/dL [place], [place] Comment on above: . Volume 12 ml [place], [place] Comment on above: . WBC, UA 3-5 0 - 5 /[HPF] [place], [place] Comment on above: . Test Performed by [facility], [address] , [place], [place] [address] [place] Comprehensive Metabolic Pane tim 01-22-2020 Albumin [Mass/Vol] 4.4 g/dL 3.5 - 5 g/dL [place] ALP [Catalytic activity/Vol] 61 U/L 38 - 126 U/L [place], [place] ALT [Catalytic activity/Vol] 17 U/L 0 - 34 U/L [place], [place] Comment on above: The ALT test is perf ormed by an updated assay method. Please note that the reference intervals have been changed and are now sex specific. Anion gap [Moles/Vol] 11 mmol/L [place], [place] AST [Catalytic activity/Vol] 29 U/L 15 - 46 U/L [place] Bilirubin Ql (U) 0.1 mg/dL Low 0.2 - 1.3 mg/dL [place], [place] Calcium [Mass/Vol] 9.5 mg/dL 8.4 - 10. 4 mg/dL [place] Chloride [Moles/Vol] 106 mmol/L 98 - 10 7 mmol/L [place] CO2 [Moles/Vol] 21 mmol/L Low 22 - 30 mmol/L [place] Creatinine [Mass/Vol] 0.65 mg/dL 0.52 - 1.25 mg/dL [place], [place] EGFR IF NonAfrican Japanese >90.0 >60 mL/min [place], [place] Comment on above: KDIGO guidelines pro vide the following GFR categories: Stage GFR(ml/min/1.73 m2) Terms G1 >=90 Normal or high G2 60-89 Mildly decreased* G3a 45-59 Mildly to moderately decreased G3b 30-44 Moderately to severely decreased G4 15-29 Severely decreased G5 <15 Kidney failure *Relative to young adult level. In the absence of evidence of kidney damage, neither GFR category G1 nor G2 fulfill the criteria for CKD. The CKD-EPI equation is validated in individuals 18 years of age and older. Currently the best equation for estimating glomerular filtration rate (GFR) from serum creatinine in children is the Bedside Gupta equation. It is less accurate in patients with extremes of muscle mass, restriction of dietary protein, ingestion of creatine, extra-renal metabolism of creatinine, or treatment with medications that affect renal tubular creatinine secretion. GFR/1.73 sq M predicted among blacks MDRD (S/P/Bld) [Vol rate/Area] mL/min/{1.73_m2} >60 mL/min [place], [place] Glucose [Mass/Vol] 90 mg/dL 70 - 100 mg/dL [place] Interpretation and review of laboratory results Abnormal [place], [place] Potassium [Moles/Vol] 3.8 mmol/L 3.5 - 5.1 mmol/L [place], [place] Protein [Mass/Vol] 7.8 g/dL 6.3 - 8.2 g/dL [place] Sodium [Moles/Vol] 138 mmol/L 135 - 145 mmol/L [place], [place] Urea nitrogen [Mass/Vol] 12 mg/dL 7 - 20 mg/dL [place], [place] HGC Urine Qual [place] 2019 Beta HCG ( test) Ql (U) Negative Negative NA [place], [place] Comment on above: is the mos t common reason for HCG in urine, although choriocarcinoma, hydatidiform mole, and certain nontropho- blastic malignancies also result in detectable urinary HCG levels. Sensitivity = 20mIU/mL. Test Performed by [facility], [facility] [address] , [address] Hemogram (CBC) w/Auto Diffon 01-22-2020 Absolute Baso # 0.1 10*3/uL 0 - 0.2 10*3/uL [place], [place] Absolute Neut # 4.9 10*3/uL 1.8 - 7 10*3/uL [place], [place] Basophils/100 WBC (Bld) 1.4 % 0 - 2 % [place] Eosinophils (Bld) [#/Vol] 0.2 10*3/uL 0 - 0.5 10*3/uL [place], [place] Eosinophils/100 WBC (Bld) 3.0 % 1 - 6 % [place] Erythrocyte distribution width (RBC) [Ratio] 15.6 % High 11.5 - 14.5 % [place] Granulocytes/100 WBC (Bld) 60.6 % 40 - 80 % [place] Hematocrit (Bld) [Volume fraction] 32.4 % Low 35 - 47 % [place] Hemoglobin (Bld) [Mass/Vol] 10.6 g/dL Low 11.7 - 16 g/dL [place], [place] Interpretation and review of laboratory results Abnormal [place] Lymphocytes (Bld) [#/Vol] 2.3 10*3/uL 1 - 4.3 10*3/uL [place], [place] Lymphocytes/100 WBC (Bld) 28.3 % 20 - 40 % [place] MCH (RBC) [Entitic mass] 24.6 pg Low 26 - 34 pg [place] MCHC (RBC) [Mass/Vol] 32.7 % 32 - 36 % [place] MCV (RBC) [Entitic vol] 75.3 fL Low 79 - 98 fL [place], [place] Monocytes (Bld) [#/Vol] 0.5 10*3/uL 0 - 0.8 10*3/uL [place], [place] Monocytes/100 WBC (Bld) 6.7 % 2 - 10 % [place] Platelet mean volume (Bld) [Entitic vol] 7.3 fL Low 7.4 - 10.4 fL [place], [place] Platelets (Bld) [#/Vol] 403 10*3/uL 140 - 440 10*3/uL [place] RBC (Bld) [#/Vol] 4.30 10*6/uL 3.8 - 5.2 10*6/uL [place] WBC (Bld) [#/Vol] 8.0 10*3/uL 3.6 - 10.7 10*3/uL [place] Test Performed by [facility], [address] , [address] Lipaseon 01-22-2020 Lipase [Catalytic activity/Vol] 157 U/L 23 - 300 U/L [place], [place] Otheron 01-22-2020 Test Performed by [facility], [facility] [address] , [address] Urinalysison 01-22-2020 Appearance (U) Clear Clear NA [place], [place] Comment on above: . Bacteria, UA Few (1-5) Abnormal Negative /[HPF] [place], [place] Comment on above: . Bilirubin Urine Negative Negative mg/dL [place], [place] Comment on above: . Color (U) COLORLESS Lt. Yellow NA [place], [place] Comment on above: . Glucose, Ur Normal Normal (<70) mg/dL [place], [place] Comment on above: . Interpretation and review of laboratory results Abnormal [place] Ketones Ql (U) Negative Negative mg/dL [place], [place] Comment on above: . LEUKOCYTES, UA 25 Abnormal Negative Reyes/uL [place], [place] Comment on above: . Nitrite, Urine Negative Negative NA [place], [place] Comment on above: . Occult Blood,Urine Negative Negative mg/dL [place] Comment on above: . pH (U) 6.5 [pH] [place], [place] Comment on above: . Protein (U) [Mass/Vol] Negative Negative mg/dL [place], [place] Comment on above: . RBC (U) [#/Vol] 3-5 Abnormal 0 - 2 /[HPF] [place], [place] Comment on above: . Specific [place], Urine 1.014 [place], [place] Comment on above: . Squam Epithel, UA 11-25 Abnormal 3 - 5 /[HPF] [place], [place] Comment on above: . Urobilinogen, Urine Normal Normal ( 0-1) mg/dL [place], [place] Comment on above: . Volume 12 ml [place], [place] Comment on above: . WBC, UA 3-5 0 - 5 /[HPF] [place], [place] Comment on above: . Test Performed by [facility], [address] , [place], [place] [address] [place], [place] Basic Metabolic Panelon 06-0 Anion gap [Moles/Vol] 11 mmol/L [place] Calcium [Mass/Vol] 9.2 mg/dL 8.4 - 10. 4 mg/dL [place], [place] Chloride [Moles/Vol] 106 mmol/L 98 - 10 7 mmol/L [place] CO2 [Moles/Vol] 24 mmol/L 22 - 30 mmol/L [place] Creatinine [Mass/Vol] 0.65 mg/dL 0.52 - 1.25 mg/dL [place] EGFR IF NonAfrican Japanese >90.0 >60 mL/min [place], [place] Comment on above: KDIGO guidelines pro vide the following GFR categories: Stage GFR(ml/min/1.73 m2) Terms G1 >=90 Normal or high G2 60-89 Mildly decreased* G3a 45-59 Mildly to moderately decreased G3b 30-44 Moderately to severely decreased G4 15-29 Severely decreased G5 <15 Kidney failure *Relative to young adult level. In the absence of evidence of kidney damage, neither GFR category G1 nor G2 fulfill the criteria for CKD. The CKD-EPI equation is validated in individuals 18 years of age and older. Currently the best equation for estimating glomerular filtration rate (GFR) from serum creatinine in children is the Bedside Gupta equation. It is less accurate in patients with extremes of muscle mass, restriction of dietary protein, ingestion of creatine, extra-renal metabolism of creatinine, or treatment with medications that affect renal tubular creatinine secretion. GFR/1.73 sq M predicted among blacks MDRD (S/P/Bld) [Vol rate/Area] mL/min/{1.73_m2} >60 mL/min [place], [place] Glucose [Mass/Vol] 104 mg/dL High 70 - 100 mg/dL [place] Interpretation and review of laboratory results Abnormal [place], [place] Potassium [Moles/Vol] 4.1 mmol/L 3.5 - 5.1 mmol/L [place] Sodium [Moles/Vol] 141 mmol/L 135 - 145 mmol/L [place], [place] Urea nitrogen [Mass/Vol] 12 mg/dL 7 - 20 mg/dL [place] Test [facility] , [address] Abdomen Pelvis Wo Contras ton 01-11-2020 [facility], [facility] In[facility] Results From [facility] - 01/11/2020 5:13 PM EDT Patient Name: SOCORRO GONSALES ---CT--- Exam Date/Time 01/11/2020 16:45:[address] Abdomen/Pelvis (No PO, No IV) Ordering Physician MD CHASE DAVID L Accession Number [id number] CPT4 Codes 03217 (CT Abdomen/Pelvis (No PO, No IV)) Reason For Exam RLQ pain Report CT ABDOMEN AND PELVIS WITHOUT CONTRAST CLINICAL: Right lower quadrant pain COMPARISON: August 12, 2019 CT abdomen and pelvis without contrast Noncontrast CT imaging of the abdomen and pelvis was performed. FINDINGS: Included lung bases are clear. Evaluation of the abdominal and pelvic viscera is limited due to the lack of both IV and oral contrast material. The patient is status post cholecystectomy. The noncontrast liver appears within limits. The spleen is normal in size. Pancreas appears unremarkable. Adrenals are normal. The kidneys are without hydronephrosis. No renal calculi are seen. No discrete renal masses are identified. Abdominal aorta is normal in caliber. No significantly enlarged retroperitoneal adenopathy. No evidence of gastric, small bowel or colonic obstruction is noted. Large amount stool is present within the cecum and proximal ascending colon. The appendix is not clearly delineated. No abnormal pericecal inflammatory changes are noted. No free intracranial air. No ascites is noted.. Bladder appears within limits. Uterus is normal size. Both ovaries are identified. There is a small fat-containing umbilical hernia. Osseous structures appear grossly intact. There is a focal, asymmetric area of decreased muscular attenuation anteriorly right hip seen on axial image numbers 119 through 129 within the right iliopsoas, which measures approximately 1.5 cm in greatest axial dimension and extends for a craniocaudal length of approximately 4 cm. This area was not as well-defined on the prior comparison study. IMPRESSION: Somewhat limited study due to lack of both IV and oral contrast material. No obstructive renal or ureteral calculi. No acute abdominal or pelvic process is identified as etiology for patient's right lower quadrant pain. Nonvisualization of a discrete appendix. Status post cholecystectomy. Nonspecific area of intramuscular hypodensity anterior to the right hip as above. This finding is of uncertain exact etiology and clinical significance. If there are any clinical symptoms referrable to this area, further evaluation is recommended. Report Dictated on Workstation: Tremor Video --- Final --- Dictating Physician: MD HOPE BRIAN Signed Date and Time: 01/11/2020 5:12 pm Signed by: MD HOPE BRIAN Transcribed Date and Time: 01/11/2020 5:13 [place] Patient Name: SOCORRO ORELLANA ---CT--- Exam Date/Time 01/11/2020 16:45:[address] Abdomen/Pelvis (No PO, No IV) Ordering Physician MD CHASE DAVID L Accession Number [id number] CPT4 Codes 51739 (CT Abdomen/Pelvis (No PO, No IV)) Reason For Exam RLQ pain Report CT ABDOMEN AND PELVIS WITHOUT CONTRAST CLINICAL: Right lower quadrant pain COMPARISON: August 12, 2019 CT abdomen and pelvis without contrast Noncontrast CT imaging of the abdomen and pelvis was performed. FINDINGS: Included lung bases are clear. Evaluation of the abdominal and pelvic viscera is limited due to the lack of both IV and oral contrast material. The patient is status post cholecystectomy. The noncontrast liver appears within limits. The spleen is normal in size. Pancreas appears unremarkable. Adrenals are normal. The kidneys are without hydronephrosis. No renal calculi are seen. No discrete renal masses are identified. Abdominal aorta is normal in caliber. No significantly enlarged retroperitoneal adenopathy. No evidence of gastric, small bowel or colonic obstruction is noted. Large amount stool is present within the cecum and proximal ascending colon. The appendix is not clearly delineated. No abnormal pericecal inflammatory changes are noted. No free intracranial air. No ascites is noted.. Bladder appears within limits. Uterus is normal size. Both ovaries are identified. There is a small fat-containing umbilical hernia. Osseous structures appear grossly intact. There is a focal, asymmetric area of decreased muscular attenuation anteriorly right hip seen on axial image numbers 119 through 129 within the right iliopsoas, which measures approximately 1.5 cm in greatest axial dimension and extends for a craniocaudal length of approximately 4 cm. This area was not as well-defined on the prior comparison study. IMPRESSION: Somewhat limited study due to lack of both IV and oral contrast material. No obstructive renal or ureteral calculi. No acute abdominal or pelvic process is identified as etiology for patient's right lower quadrant pain. Nonvisualization of a discrete appendix. Status post cholecystectomy. Nonspecific area of intramuscular hypodensity anterior to the right hip as above. This finding is of uncertain exact etiology and clinical significance. If there are any clinical symptoms referrable to this area, further evaluation is recommended. Report Dictated on --- Final --- Dictating Physician: MD HOPE BRIAN Signed Date and Time: 01/11/2020 5:12 pm Signed by: MD HOPE BRIAN Transcribed Date and Time: 01/11/2020 5:13 [place], [place] HCG Qualitative, Serumon hCG Qual Negative m[IU]/mL [place], [place] Comment on above: Reference Range: NEG ATIVE Effective 11/14/2019, the reference interval for the qualitative test has been updated. This test detects hCG at concentrations of 10 mIU/L or greater in serum. Test Performed by [facility], [address] [place] [address] Cristobal. , [address] Hemogram (CBC) w/Auto Diffon 01-11-2020 Absolute Baso # 0.1 10*3/uL 0 - 0.2 10*3/uL [place], [place] Absolute Neut # 5.5 10*3/uL 1.8 - 7 10*3/uL [place], [place] Basophils/100 WBC (Bld) 0.8 % 0 - 2 % [place] Eosinophils (Bld) [#/Vol] 0.3 10*3/uL 0 - 0.5 10*3/uL [place] Eosinophils/100 WBC (Bld) 4.0 % 1 - 6 % [place] Erythrocyte distribution width (RBC) [Ratio] 15.6 % High 11.5 - 14.5 % [place] Granulocytes/100 WBC (Bld) 65.1 % 40 - 80 % [place] Hematocrit (Bld) [Volume fraction] 31.9 % Low 35 - 47 % [place] Hemoglobin (Bld) [Mass/Vol] 10.5 g/dL Low 11.7 - 16 g/dL [place] Interpretation and review of laboratory results Abnormal [place] Lymphocytes (Bld) [#/Vol] 2.0 10*3/uL 1 - 4.3 10*3/uL [place], [place] Lymphocytes/100 WBC (Bld) 24.1 % 20 - 40 % [place] MCH (RBC) [Entitic mass] 25.0 pg Low 26 - 34 pg [place] MCHC (RBC) [Mass/Vol] 32.8 % 32 - 36 % [place] MCV (RBC) [Entitic vol] 76.4 fL Low 79 - 98 fL [place], [place] Monocytes (Bld) [#/Vol] 0.5 10*3/uL 0 - 0.8 10*3/uL [place], [place] Monocytes/100 WBC (Bld) 6.0 % 2 - 10 % [place] Platelet mean volume (Bld) [Entitic vol] 7.2 fL Low 7.4 - 10.4 fL [place] Platelets (Bld) [#/Vol] 385 10*3/uL 140 - 440 10*3/uL [place] RBC (Bld) [#/Vol] 4.18 10*6/uL 3.8 - 5.2 10*6/uL [place] WBC (Bld) [#/Vol] 8.4 10*3/uL 3.6 - 10.7 10*3/uL [place] Test Performed by [facility], [address] [place] [address] Rd. , [address] US NON OB TRANSVAGINALon [facility], [facility] Results From [facility] - 01/11/2020 6:51 PM EDT Patient Name: SOCORRO GONSALES ---Ultrasound--- Exam Date/Time 01/11/2020 18:35:13 EDT Exam US Transvaginal Ordering Physician MD SALVATORE, YENNY Knight Accession Number [id number] CPT4 Codes 63771 () Reason For Exam R pelvic pain Report Ultrasound pelvis HISTORY: Right lower quadrant pain Protocol: Endovaginal scanning was performed The uterus measures 7.9 x 6.3 x 4.7 cm. Uterus has a normal echotexture. Endometrial stripe is abnormally thickened and heterogeneous measuring 19 mm. Small amount of free fluid in the cul-de-sac. The right ovary measures 4.3 x 2.3 x 2.1 cm. Left ovary measures 4.9 x 2.8 x 2.6 cm. The right ovary has a normal appearance and blood flow. A 2.2 cm cyst in the left ovary containing two tiny daughter cysts. Left ovary has normal blood flow. IMPRESSION: Endometrial stripe is abnormally thickened and heterogeneous measuring 19 mm. Small amount of free fluid in the cul-de-sac. A 2.2 cm cyst in the left ovary containing two tiny daughter cysts. Report Dictated on --- Final --- Dictating Physician: MD PECK MALAY Signed Date and Time: 01/11/2020 6:49 pm Signed by: MD PECK MALAY Transcribed Date and Time: 01/11/2020 6:50 [place] Patient Name: SOCORRO ORELLANA ---Ultrasound--- Exam Date/Time 01/11/2020 18:35:13 EDT Exam US Transvaginal Ordering Physician MD CHASE DAVID L Accession Number [id number] CPT4 Codes 68934 () Reason For Exam R pelvic pain Report Ultrasound pelvis HISTORY: Right lower quadrant pain Protocol: Endovaginal scanning was performed The uterus measures 7.9 x 6.3 x 4.7 cm. Uterus has a normal echotexture. Endometrial stripe is abnormally thickened and heterogeneous measuring 19 mm. Small amount of free fluid in the cul-de-sac. The right ovary measures 4.3 x 2.3 x 2.1 cm. Left ovary measures 4.9 x 2.8 x 2.6 cm. The right ovary has a normal appearance and blood flow. A 2.2 cm cyst in the left ovary containing two tiny daughter cysts. Left ovary has normal blood flow. IMPRESSION: Endometrial stripe is abnormally thickened and heterogeneous measuring 19 mm. Small amount of free fluid in the cul-de-sac. A 2.2 cm cyst in the left ovary containing two tiny daughter cysts. Report Dictated on --- Final --- Dictating Physician: MD PECK MALAY Signed Date and Time: 01/11/2020 6:49 pm Signed by: MD PECK MALAY Transcribed Date and Time: 01/11/2020 6:50 [place] Urinalysison 01-11-2020 Appearance (U) Turbid Abnormal Clear [place] Comment on above: . Bilirubin Urine Negative Negative mg/dL [place], [place] Comment on above: . Color (U) LIGHT YELLOW Lt. Yellow NA [place], [place] Comment on above: . Glucose, Ur Normal Normal (<70) mg/dL [place], [place] Comment on above: . Interpretation and review of laboratory results Abnormal [place] Ketones Ql (U) Negative Negative mg/dL [place], [place] Comment on above: . LEUKOCYTES, UA Negative Negative Reyes/uL [place], [place] Comment on above: . Nitrite, Urine Negative Negative NA [place], [place] Comment on above: . Occult Blood,Urine Negative Negative mg/dL [place] Comment on above: . pH (U) 8.0 [pH] [place], [place] Comment on above: . Protein (U) [Mass/Vol] Negative Negative mg/dL [place], [place] Comment on above: . Specific [place], Urine 1.017 [place], [place] Comment on above: . Urobilinogen, Urine Normal Normal ( 0-1) mg/dL [place], [place] Comment on above: . Test Performed by [facility], [address] [place] [address] , [address] .Urinalysis Microscopic (AO) on 09-22-2019 RBC (U) [#/Vol] None Seen Normal None Seen [facility] ([place]) Comment on above: Performed By: #### U A #### [address] [address] #### PREGU #### [address] [address] UA Amorphus 2+ /hpf Normal [facility] ([place]) Comment on above: Performed By: #### U A #### [address] [address] #### PREGU #### [place] [address] [place], [place] [address] UA Bacteria 1+ /hpf Abnormal [facility] ([place]) Comment on above: Performed By: #### U A #### [facility] [address] [place] [address] #### PREGU #### [place] [address] [place] [address] UA Squam Epithelial 5-10 Abnormal None Seen [facility] ([place]) Comment on above: Performed By: #### U A #### [place] [address] #### PREGU #### [place] [address] UA WBC 0-5 Abnormal None Seen [facility] ([place]) Comment on above: Performed By: #### U A #### [place] [address] #### PREGU #### [place] [address] Comprehensive Metabolic Pane [facility] 09-22-2019 Albumin [Mass/Vol] 4.7 g/dL 3.5 - 5 g/dL [facility] Work Phone: [phone] ALP [Catalytic activity/Vol] 81 U/L 38 - 126 U/L [facility] Work Phone: [phone] ALT [Catalytic activity/Vol] 29 U/L 13 - 69 U/L [facility] Work Phone: [phone] Anion gap [Moles/Vol] 11 mmol/L [facility] Work Phone: [phone] AST [Catalytic activity/Vol] 25 U/L 15 - 46 U/L [facility] Work Phone: Bilirubin Ql (U) 0.3 mg/dL 0.2 - 1.3 mg/dL [facility] Work Phone: Calcium [Mass/Vol] 9.6 mg/dL 8.4 - 10. 4 mg/dL [facility] Work Phone: [phone] Chloride [Moles/Vol] 105 mmol/L 98 - 10 7 mmol/L [facility] Work Phone: [phone] CO2 [Moles/Vol] 26 mmol/L 22 - 30 mmol/L [facility] Work Phone: [phone] Creatinine [Mass/Vol] 0.79 mg/dL 0.52 - 1.25 mg/dL [facility] Work Phone: [phone] EGFR IF NonAfrican Japanese >60.0 >60 mL/min [facility] Work Phone: [phone] Comment on above: Source- MDRD equatio n with creatinine calibration to IDMS(NKDEP) eGFR not recommended for drug dose adjustment GFR/1.73 sq M predicted among blacks MDRD (S/P/Bld) [Vol rate/Area] mL/min/{1.73_m2} >60 mL/min [facility] Work Phone: [phone] Glucose [Mass/Vol] 96 mg/dL 70 - 100 mg/dL [facility] Work Phone: [phone] Potassium [Moles/Vol] 4.2 mmol/L 3.5 - 5.1 mmol/L [facility] Work Phone: [phone] Protein [Mass/Vol] 8.2 g/dL 6.3 - 8.2 g/dL [facility] Work Phone: [phone] Sodium [Moles/Vol] 142 mmol/L 135 - 145 mmol/L [facility] Work Phone: [phone] Urea nitrogen [Mass/Vol] 10 mg/dL 7 - 20 mg/dL [facility] Work Phone: [phone] Hemogram (CBC) w/Auto Diffon 09-22-2019 Absolute Baso # 0.0 10*3/uL 0 - 0.2 10*3/uL [facility] Work Phone: [phone] Absolute Neut # 3.4 10*3/uL 1.8 - 7 10*3/uL [facility] Work Phone: [phone] Basophils/100 WBC (Bld) 0.7 % 0 - 2 % [facility] Work Phone: [phone] Eosinophils (Bld) [#/Vol] 0.1 10*3/uL 0 - 0.5 10*3/uL [facility] Work Phone: [phone] Eosinophils/100 WBC (Bld) 2.3 % 1 - 6 % [facility] Work Phone: [phone] Erythrocyte distribution width (RBC) [Ratio] 15.5 % High 11.5 - 14.5 % [facility] Work Phone: () 222 Granulocytes/100 WBC (Bld) 57.0 % 40 - 80 % [facility] Work Phone: [phone] Hematocrit (Bld) [Volume fraction] 33.0 % Low 35 - 47 % [facility] Work Phone: ) 222 Hemoglobin (Bld) [Mass/Vol] 10.6 g/dL Low 11.7 - 16 g/dL [facility] Work Phone: [phone] Interpretation and review of laboratory results Abnormal [facility] Work Phone: () 222 Lymphocytes (Bld) [#/Vol] 2.0 10*3/uL 1 - 4.3 10*3/uL [facility] Work Phone: ) 222 Lymphocytes/100 WBC (Bld) 33.6 % 20 - 40 % [facility] Work Phone: () 222 MCH (RBC) [Entitic mass] 25.0 pg Low 26 - 34 pg [facility] Work Phone: () 222 MCHC (RBC) [Mass/Vol] 32.1 % 32 - 36 % [facility] Work Phone: () 222 MCV (RBC) [Entitic vol] 77.9 fL Low 79 - 98 fL [facility] Work Phone: () 222 Monocytes (Bld) [#/Vol] 0.4 10*3/uL 0 - 0.8 10*3/uL [facility] Work Phone: [phone] Monocytes/100 WBC (Bld) 6.4 % 2 - 10 % [facility] Work Phone: () 222 Platelet mean volume (Bld) [Entitic vol] 7.3 fL Low 7.4 - 10.4 fL [facility] Work Phone: [phone] Platelets (Bld) [#/Vol] 346 10*3/uL 140 - 440 10*3/uL [facility] Work Phone: ) 222 RBC (Bld) [#/Vol] 4.24 10*6/uL 3.8 - 5.2 10*6/uL [facility] Work Phone: WBC (Bld) [#/Vol] 6.0 10*3/uL 3.6 - 10.7 10*3/uL [facility] Work Phone: Test Performed by [facility], [address] , [place] [address] [facility] Work Phone: Lactic Acid, Plasmaon 2019 Lactate [Moles/Vol] 1.3 mmol/L 0.7 - 2 mmol/L S [facility] Work Phone: Test Performed by [facility], [address] , [place] [address] [facility] Work Phone: Lipaseon 09-22-2019 Interpretation and review of laboratory results Abnormal [facility] Work Phone: Lipase [Catalytic activity/Vol] 404 U/L High 23 - 300 U/L [facility] Work Phone: Magnesiumon 09-22-2019 Magnesium [Mass/Vol] 2.1 mg/dL 1.6 - 2 .3 mg/dL [facility] Work Phone: Otheron 09-22-2019 Test Performed by [facility], [address] , [place] [address] [facility] Work Phone: PREGUon 09-22-2019 HCG ( test) Ql (U) Negative Normal [facility] ([place]) Comment on above: Performed By: #### P REGU #### [address] [address] #### UA, UAMICAO #### [facility] [address] [place] [id number] test (u) int HCG not detected. [facility] ([place]) Comment on above: Performed By: #### P REGU #### [address] [address] #### UA, UAMICAO #### [address] [address] Protime-INRon 09-22-2019 INR Coag (PPP) [Relative time] 1.0 {INR} [facility] Work Phone: Comment on above: Recommended Anticoag ulant Therapy: SEE BELOW ----- INR of 2.0 - 3.0 : - Prophylaxis of Venous Thrombosis (high-risk surgery) - Treatment of Venous Thrombosis - Treatment of Pulmonary Embolism (Includes tissue heart valves, Acute Myocardial Infarction to prevent systemic embolism, Valvular Heart Disease, and Atrial Fibrillation) ----- INR of 2.5 - 3.5 : - Mechanical Prosthetic Valves (high risk) - If oral anticoagulant therapy is used to prevent Myocardial Infarction PT Coag (PPP) [Time] 10.6 s 9 - 12 s [facility] Work Phone: Comment on above: . Test Performed by [facility], [address] [place] [address] Cristobal. , [place], [place] [address] [facility] Work Phone: UAon 09-22-2019 Color (U) Yellow Normal [facility] ([place]) Comment on above: Performed By: #### P REGU #### [address] [address] #### UA, UAMICAO #### [address] [address] Glucose (U) [Mass/Vol] Negative Normal Negative [facility] ([place]) Comment on above: Performed By: #### P REGU #### [address] [address] #### UA, UAMICAO #### [address] [address] Ketones Ql (U) Negative Normal Negative [facility] ([place]) Comment on above: Performed By: #### P REGU #### [address] [address] #### UA, UAMICAO #### [address] [address] UA Appear Cloudy Abnormal Clear [facility] ([place]) Comment on above: Performed By: #### P REGU #### [place] [address] #### UA, UAMICAO #### [place] [address] UA Blood Negative Normal Negative [facility] ([place]) Comment on above: Performed By: #### P REGU #### [place] [address] #### UA, UAMICAO #### [place] [address] UA Leuk Est Negative Normal Negative [facility] ([place]) Comment on above: Performed By: #### P REGU #### [place] [address] #### UA, UAMICAO #### [place] [address] UA Nitrite Negative Normal Negative [facility] ([place] Comment on above: Performed By: #### P REGU #### [place] [address] #### UA, UAMICAO #### [place] [address] UA pH 8.5 Abnormal 5.0 - 8.0 [facility] ([place]) Comment on above: Performed By: #### P REGU #### [place] [address] #### UA, UAMICAO #### [place] [address] UA Protein Trace Normal Negative [facility] ([place]) Comment on above: Performed By: #### P REGU #### [place] [address] #### UA, UAMICAO #### [place] [address] UA Spec Grav 1.025 Normal 1.015-1.025 [facility] ([place]) Comment on above: Performed By: #### P REGU #### [place] [address] #### UA, UAMICAO #### [address] [address] UA Specimen Type Clean Catch Normal [facility] ([place]) Comment on above: Performed By: #### P REGU #### [address] [address] #### UA, UAMICAO #### [facility] [address] [place] [address] UA Urobilinogen 0.2 E.U./dL Normal 0.2-1.0 [facility] ([place]) Comment on above: Performed By: #### P REGU #### [address] [address] #### UA, UAMICAO #### [address] [address] Urobilinogen Qn (U) Negative Normal Negative [facility] ([place]) Comment on above: Performed By: #### P REGU #### [address] [address] #### UA, UAMICAO #### [address] [address] XR ABDOMEN (KUB) (SINGLE AP VIEW)on 09-22-2019 Patient Name: SOCORRO ORELLANA ---Diagnostic Radiology--- Exam Date/Time 09/22/2019 14:51:16 EST Exam CR Abdomen AP Ordering Physician MD IVONE, JOHNATHAN Accession Number [id number] CPT4 Codes 56145 () Reason For Exam Possible bowel obstruction versus pancreatitis Report SUPINE ABDOMEN (KUB) CLINICAL INDICATION: Bowel obstruction versus pancreatitis A supine plain film of the abdomen was obtained. COMPARISON: CT abdomen and pelvis dated 08/12/2019 FINDINGS: The bowel demonstrates a normal gas pattern. Free air under the diaphragm cannot be adequately assessed on this single, supine view. Upright or decubitus films may be obtained if clinically warranted. Cholecystectomy clips are noted. No pathologic calcifications are identified. Visualized bony structures are grossly unremarkable. IMPRESSION: Nonobstructive bowel gas pattern. Report Dictated on Workstation: [id number] --- Final --- Dictating Physician: MD REBOLLAR JONATHAN R Signed Date and Time: 09/22/2019 3:05 pm Signed by: MD REBOLLAR JONATHAN R Transcribed Date and Time: 09/22/2019 3:06 [facility] Work Phone: Reynaldo, [facility]coming [facility] Results From [facility] - 09/22/2019 3:06 PM EST Patient Name: SOCORRO GONSALES ---Diagnostic Radiology--- Exam Date/Time 09/22/2019 14:51:16 EST Exam CR Abdomen AP Ordering Physician MD IVONE, JOHNATHAN Accession Number [id number] CPT4 Codes 69076 () Reason For Exam Possible bowel obstruction versus pancreatitis Report SUPINE ABDOMEN (KUB) CLINICAL INDICATION: Bowel obstruction versus pancreatitis A supine plain film of the abdomen was obtained. COMPARISON: CT abdomen and pelvis dated 08/12/2019 FINDINGS: The bowel demonstrates a normal gas pattern. Free air under the diaphragm cannot be adequately assessed on this single, supine view. Upright or decubitus films may be obtained if clinically warranted. Cholecystectomy clips are noted. No pathologic calcifications are identified. Visualized bony structures are grossly unremarkable. IMPRESSION: Nonobstructive bowel gas pattern. Report Dictated on Workstation: [id number] --- Final --- Dictating Physician: MD REBOLLAR JONATHAN R Signed Date and Time: 09/22/2019 3:05 pm Signed by: MD REBOLLAR JONATHAN R Transcribed Date and Time: 09/22/2019 3:06 [facility] Work Phone: .Auto Diffon 09-06-2019 Ammonia (P) [Mass/Vol] 0.40 10 3/mcL Normal 0.15-1.00 [facility] ([place]) Comment on above: Performed By: #### C BC, ADIFF, ANEU #### [facility] [address] [place], [place] [address] #### LIP, CMP, GFR #### [address] [address] Basophils (Bld) [#/Vol] 0.00 10 3/mcL Normal 0.00-0.19 [facility] ([place]) Comment on above: Performed By: #### C BC, ADIFF, ANEU #### [place] [address] #### LIP, CMP, GFR #### [address] [address] Basophils/100 WBC (Bld) 0.5 % Normal 0.0-2.5 [facility] ([place]) Comment on above: Performed By: #### C BC, ADIFF, ANEU #### [place] [address] #### LIP, CMP, GFR #### [address] [address] Eosinophils (Bld) [#/Vol] 0.10 10 3/mcL Normal 0.00-0.40 [facility] ([place]) Comment on above: Performed By: #### C KENNY, ADIFF, ANEU #### [place] [address] #### LIP, CMP, GFR #### [address] [address] Eosinophils/100 WBC (Bld) 1.3 % Normal 0.0-7.0 [facility] ([place]) Comment on above: Performed By: #### C KENNY, ADIFF, ANEU #### [place] [address] #### LIP, CMP, GFR #### [address] [address] Lymphocytes (Bld) [#/Vol] 1.70 10 3/mcL Normal 0.77-3.85 [facility] ([place]) Comment on above: Performed By: #### C BC, ADIFF, ANEU #### [place] [address] #### LIP, CMP, GFR #### [address] [address] Lymphocytes/100 WBC (Bld) 22.0 % Normal 10.0-50.0 [facility] ([place]) Comment on above: Performed By: #### C BC, ADIFF, ANEU #### [address] [address] #### LIP, CMP, GFR #### [address] [address] Monocytes/100 WBC (Bld) 5.8 % Normal 1.7-13.0 [facility] ([place]) Comment on above: Performed By: #### C BC, ADIFF, ANEU #### [address] [address] #### LIP, CMP, GFR #### [address] [address] Neutrophils/100 WBC (Bld) 70.4 % Normal 37.0-80.0 [facility] ([place]) Comment on above: Performed By: #### C BC, ADIFF, ANEU #### [address] [address] #### LIP, CMP, GFR #### [address] [address] .GFRon 09-06-2019 GFR 105 ml/min/1.73sqm Normal [facility] ([place]) Comment on above: Result Comment: GFR Population mean for , Non- Americans Ages 20-29 = 116 mL/min/1.73 sq.m. Ages 30-39 = 107 mL/min/1.73 sq.m. Ages 40-49 = 99 mL/min/1.73 sq.m. Ages 50-59 = 93 mL/min/1.73 sq.m. Ages 60-69 = 85 mL/min/1.73 sq.m. Ages 70+ = 75 mL/min/1.73 sq.m. Chronic Kidney Disease: Less than 60 mL/min/1.73 square meters End Stage Renal Disease: Less than 15 mL/min/1.73 square meters Performed By: #### C BC, ADIFF, ANEU #### [address] [address] #### LIP, CMP, GFR #### [address] [address] GFR Non- 86 ml/min/1.73sqm Normal [facility] ([place]) Comment on above: Result Comment: GFR Population mean for , Non- Americans Ages 20-29 = 116 mL/min/1.73 sq.m. Ages 30-39 = 107 mL/min/1.73 sq.m. Ages 40-49 = 99 mL/min/1.73 sq.m. Ages 50-59 = 93 mL/min/1.73 sq.m. Ages 60-69 = 85 mL/min/1.73 sq.m. Ages 70+ = 75 mL/min/1.73 sq.m. Chronic Kidney Disease: Less than 60 mL/min/1.73 square meters End Stage Renal Disease: Less than 15 mL/min/1.73 square meters Performed By: #### C FAYE COX ANEU #### [place] [address] #### LIP, CMP, GFR #### [place] [address] .NEUABSon 09-06-2019 Neutrophils (Bld) [#/Vol] 5.40 10 3/mcL Normal 2.85-6.16 [facility] ([place]) Comment on above: Performed By: #### FAYE CLARKE ANEU #### [place] [address] #### LIP, CMP, GFR #### [place] [address] CBCon 09-06-2019 Erythrocyte distribution width (RBC) [Ratio] 15.1 % High 11.5-14.5 [facility] ([place]) Comment on above: Performed By: #### FAYE CLARKE ANEU #### [place] [address] #### LIP, CMP, GFR #### [place] [address] Hematocrit (Bld) [Volume fraction] 31.9 % Low 37.0-47.0 [facility] ([place]) Comment on above: Performed By: #### C BC, ADIFF, ANEU #### [address] [address] #### LIP, CMP, GFR #### [place] [address] Hemoglobin (Bld) [Mass/Vol] 10.4 G/dL Low 12.0-16.0 [facility] ([place]) Comment on above: Performed By: #### C KENNY, SAVANAIFF, ANEU #### [place] [address] #### LIP, CMP, GFR #### [place] [address] MCH (RBC) [Entitic mass] 25.5 pg Low 27.0-31.2 [facility] ([place]) Comment on above: Performed By: #### C KENNY, SAVANAIFF, ANEU #### [place] [address] #### LIP, CMP, GFR #### [place] [address] MCHC (RBC) [Mass/Vol] 32.7 G/dL Low 33.0-37.0 [facility] ([place]) Comment on above: Performed By: #### C FAYE COX, ANEU #### [place] [address] #### LIP, CMP, GFR #### [place] [address] MCV (RBC) [Entitic vol] 78.2 fL Low 80.0-94.0 [facility] ([place]) Comment on above: Performed By: #### C KENNY, ADIFF, ANEU #### [place] [address] #### LIP, CMP, GFR #### [place] [address] Platelet mean volume (Bld) [Entitic vol] 7.3 fL Low 7.4-10.4 [facility] ([place]) Comment on above: Performed By: #### C KENNY, ADNELLY, ANEU #### [address] [address] #### LIP, CMP, GFR #### [address] [address] Platelets (Bld) [#/Vol] 368 10 3/mcL Normal 130-400 [facility] ([place]) Comment on above: Performed By: #### C BC, ADIFF, ANEU #### [place] [address] #### LIP, CMP, GFR #### [address] [address] RBC (Bld) [#/Vol] 4.08 10 6/mcL Low 4.20-5.40 [facility] ([place]) Comment on above: Performed By: #### C BC, ADIFF, ANEU #### [place] [address] #### LIP, CMP, GFR #### [address] [address] WBC (Bld) [#/Vol] 7.70 10 3/mcL Normal 4.60-10.80 [facility] ([place]) Comment on above: Performed By: #### C BC, ADIFF, ANEU #### [place] [id number] #### LIP, CMP, GFR #### [address] [address] CMPon 09-06-2019 Albumin [Mass/Vol] 3.9 G/dL Normal 3.5-5.0 [facility] ([place]) Comment on above: Performed By: #### C BC, ADIFF, ANEU #### [place] [id number] #### LIP, CMP, GFR #### [address] [address] Albumin/Globulin [Mass ratio] 1.1 {ratio} Normal 1.1-2.5 [facility] ([place]) Comment on above: Performed By: #### C BC, ADIFF, ANEU #### [place] [address] #### LIP, CMP, GFR #### [address] [address] ALP [Catalytic activity/Vol] 77 U/L Normal 40-135 [facility] ([place]) Comment on above: Performed By: #### C BC, ADIFF, ANEU #### [place] [id number] #### LIP, CMP, GFR #### [address] [address] ALT [Catalytic activity/Vol] 19 U/L Normal 10-35 [facility] ([place]) Comment on above: Performed By: #### C BC, ADIFF, ANEU #### [place] [address] #### LIP, CMP, GFR #### [address] [address] AST [Catalytic activity/Vol] 13 U/L Normal 10-40 [facility] ([place]) Comment on above: Performed By: #### C BC, ADIFF, ANEU #### [place] [address] #### LIP, CMP, GFR #### [address] [address] Bili Total 0.2 mg/dL Normal 0.2-1.0 [facility] ([place]) Comment on above: Performed By: #### C BC, ADIFF, ANEU #### [place] [address] #### LIP, CMP, GFR #### [address] [address] Calcium [Mass/Vol] 8.8 mg/dL Normal 8.4-10.2 [facility] ([place]) Comment on above: Performed By: #### C BC, ADIFF, ANEU #### [place] [id number] #### LIP, CMP, GFR #### [address] [address] Chloride [Moles/Vol] 104 mmol/L Normal 98-107 [facility] ([place]) Comment on above: Performed By: #### C BC, ADIFF, ANEU #### [address] [address] #### LIP, CMP, GFR #### [address] [address] CO2 [Moles/Vol] 25 mmol/L Normal 22-29 [facility] ([place]) Comment on above: Performed By: #### C BC, ADIFF, ANEU #### [address] [address] #### LIP, CMP, GFR #### [address] [address] Creatinine [Mass/Vol] 0.82 mg/dL Normal 0.55-1.02 [facility] ([place]) Comment on above: Performed By: #### C BC, ADIFF, ANEU #### [place] [address] #### LIP, CMP, GFR #### [address] [address] Electrolyte Balance 12.0 mEq/L Normal [facility] ([place]) Comment on above: Performed By: #### C BC, ADIFF, ANEU #### [address] [address] #### LIP, CMP, GFR #### [address] [address] Globulin (S) [Mass/Vol] 3.6 G/dL Normal [facility] ([place]) Comment on above: Performed By: #### C BC, ADIFF, ANEU #### [address] [address] #### LIP, CMP, GFR #### [address] [address] Glucose [Mass/Vol] 97 mg/dL Normal 70-105 [facility] ([place]) Comment on above: Performed By: #### C BC, ADIFF, ANEU #### [address] [place] [address] #### LIP, CMP, GFR #### [address] [address] Potassium [Moles/Vol] 3.8 mmol/L Normal 3.5-5.1 [facility] ([place]) Comment on above: Performed By: #### C BC, ADIFF, ANEU #### [address] [address] #### LIP, CMP, GFR #### [address] [address] Protein [Mass/Vol] 7.5 G/dL Normal 6.4-8.2 [facility] ([place]) Comment on above: Performed By: #### C BC, ADIFF, ANEU #### [address] [address] #### LIP, CMP, GFR #### [address] [address] Sodium [Moles/Vol] 141 mmol/L Normal 136-145 [facility] ([place]) Comment on above: Performed By: #### C BC, ADIFF, ANEU #### [address] [address] #### LIP, CMP, GFR #### [address] [address] Urea nitrogen [Mass/Vol] 7 mg/dL Normal 7-18 [facility] ([place]) Comment on above: Performed By: #### C BC, ADIFF, ANEU #### [address] [address] #### LIP, CMP, GFR #### [address] [address] Urea nitrogen/Creatinine [Mass ratio] 9 ratio Normal 7-27 [facility] ([place]) Comment on above: Performed By: #### C BC, ADIFF, ANEU #### [address] [address] #### LIP, CMP, GFR #### [address] [address] LIPon 09-06-2019 Lipase Level 694 U/L High 73-393 [facility] ([place]) Comment on above: Performed By: #### C BC, ADIFF, ANEU #### [address] [address] #### LIP, CMP, GFR #### [place] [address] PREGUon 09-06-2019 HCG ( test) Ql (U) Negative Normal [facility] ([place]) Comment on above: Performed By: #### U A #### [place] [address] #### PREGU #### [place] [address] test (u) int HCG not detected. [facility] ([place]) Comment on above: Performed By: #### U A #### [place] [address] #### PREGU #### [place] [address] UAon 09-06-2019 Color (U) Yellow Normal [facility] ([place]) Comment on above: Performed By: #### U A #### [place] [address] #### PREGU #### [address] [address] Glucose (U) [Mass/Vol] Negative Normal Negative [facility] ([place]) Comment on above: Performed By: #### U A #### [place] [address] #### PREGU #### [address] [address] Ketones Ql (U) Negative Normal Negative [facility] ([place]) Comment on above: Performed By: #### U A #### [place] [address] #### PREGU #### [place] [address] UA Appear Clear Normal Clear [facility] ([place]) Comment on above: Performed By: #### U A #### [place] [address] #### PREGU #### [address] [address] UA Blood Trace Abnormal Negative [facility] ([place] Comment on above: Performed By: #### U A #### [place] [address] #### PREGU #### [address] [address] UA Leuk Est Negative Normal Negative [facility] ([place] Comment on above: Performed By: #### U A #### [place] [address] #### PREGU #### [address] [address] UA Nitrite Negative Normal Negative [facility] ([place] Comment on above: Performed By: #### U A #### [place] [address] #### PREGU #### [address] [address] UA pH 7.0 Normal 5.0 - 8.0 [facility] ([place]) Comment on above: Performed By: #### U A #### [place] [address] #### PREGU #### [address] [address] UA Protein Negative Normal Negative [facility] ([place] Comment on above: Performed By: #### U A #### [place] [address] #### PREGU #### [address] [address] UA Spec Grav 1.015 Normal 1.015-1.025 [facility] ([place]) Comment on above: Performed By: #### U A #### [place] [address] #### PREGU #### [place] [address] UA Specimen Type Void Normal [facility] ([place] Comment on above: Performed By: #### U A #### [place] [address] #### PREGU #### [place] [address] UA Urobilinogen 0.2 E.U./dL Normal 0.2-1.0 [facility] ([place]) Comment on above: Performed By: #### U A #### [place] [address] #### PREGU #### [place] [address] Urobilinogen Qn (U) Negative Normal Negative [facility] ([place]) Comment on above: Performed By: #### U A #### [place] [address] #### PREGU #### [place] [address] Comprehensive Metabolic Pane lOrdered By: Yenny Greco on 08-14-2019 Albumin [Mass/Vol] 5.0 g/dL 3.5 - 5 g/dL [facility] Work Phone: [phone] ALP [Catalytic activity/Vol] 68 U/L 38 - 126 U/L [facility] Work Phone: [phone] ALT [Catalytic activity/Vol] 29 U/L 13 - 69 U/L [facility] Work Phone: [phone] Anion gap [Moles/Vol] 13 mmol/L [facility] Work Phone: [phone] AST [Catalytic activity/Vol] 22 U/L 15 - 46 U/L [facility] Work Phone: Bilirubin [Mass/Vol] 0.2 mg/dL 0.2 - 1 .3 mg/dL [facility] Work Phone: Calcium [Mass/Vol] 9.8 mg/dL 8.4 - 10. 4 mg/dL [facility] Work Phone: [phone] Chloride [Moles/Vol] 107 mmol/L 98 - 10 7 mmol/L [facility] Work Phone: [phone] CO2 [Moles/Vol] 24 mmol/L 22 - 30 mmol/L [facility] Work Phone: [phone] Creatinine [Mass/Vol] 1.02 mg/dL 0.52 - 1.25 mg/dL [facility] Work Phone: [phone] EGFR IF NonAfrican Japanese >60.0 >60 mL/min [facility] Work Phone: [phone] Comment on above: Source- MDRD equatio n with creatinine calibration to IDMS(NKDEP) eGFR not recommended for drug dose adjustment GFR/1.73 sq M.predicted among blacks MDRD (S/P/Bld) [Vol rate/Area] mL/min/{1.73_m2} >60 mL/min [facility] Work Phone: [phone] Glucose [Mass/Vol] 105 mg/dL High 70 - 100 mg/dL [facility] Work Phone: [phone] Potassium [Moles/Vol] 3.8 mmol/L 3.5 - 5.1 mmol/L [facility] Work Phone: [phone] Protein [Mass/Vol] 8.7 g/dL High 6.3 - 8.2 g/dL [facility] Work Phone: [phone] Sodium [Moles/Vol] 145 mmol/L 135 - 145 mmol/L [facility] Work Phone: [phone] Urea nitrogen [Mass/Vol] 12 mg/dL 7 - 20 mg/dL [facility] Work Phone: [phone] Hemogram (CBC) w/Auto DiffOr dered By: Yenny Greco on 08-14-2019 Absolute Baso # 0.0 10*3/uL 0 - 0.2 10*3/uL [facility] Work Phone: [phone] Absolute Neut # 2.8 10*3/uL 1.8 - 7 10*3/uL [facility] Work Phone: [phone] Basophils/100 WBC (Bld) 0.6 % 0 - 2 % [facility] Work Phone: [phone] Eosinophils (Bld) [#/Vol] 0.2 10*3/uL 0 - 0.5 10*3/uL [facility] Work Phone: [phone] Eosinophils/100 WBC (Bld) 4.0 % 1 - 6 % [facility] Work Phone: [phone] Erythrocyte distribution width (RBC) [Ratio] 14.5 % 11.5 - 14.5 % [facility] Work Phone: [phone] Granulocytes/100 WBC (Bld) 45.6 % 40 - 80 % [facility] Work Phone: [phone] Hematocrit (Bld) [Volume fraction] 32.7 % Low 35 - 47 % [facility] Work Phone: [phone] Hemoglobin (Bld) [Mass/Vol] 10.9 g/dL Low 11.7 - 16 g/dL [facility] Work Phone: [phone] Interpretation and review of laboratory results Abnormal [facility] Work Phone: [phone] Lymphocytes (Bld) [#/Vol] 2.7 10*3/uL 1 - 4.3 10*3/uL [facility] Work Phone: [phone] Lymphocytes/100 WBC (Bld) 43.4 % High 20 - 40 % [facility] Work Phone: [phone] MCH (RBC) [Entitic mass] 26.2 pg 26 - 34 pg [facility] Work Phone: [phone] MCHC 33.3 % 32 - 36 % [facility] Work Phone: [phone] MCV (RBC) [Entitic vol] 78.8 fL Low 79 - 98 fL [facility] Work Phone: [phone] Monocytes (Bld) [#/Vol] 0.4 10*3/uL 0 - 0.8 10*3/uL [facility] Work Phone: [phone] Monocytes/100 WBC (Bld) 6.4 % 2 - 10 % [facility] Work Phone: [phone] Platelet mean volume (Bld) [Entitic vol] 7.2 fL Low 7.4 - 10.4 fL [facility] Work Phone: [phone] Platelets (Bld) [#/Vol] 387 10*3/uL 140 - 440 10*3/uL [facility] Work Phone: RBC (Bld) [#/Vol] 4.15 10*6/uL 3.8 - 5.2 10*6/uL [facility] Work Phone: WBC (Bld) [#/Vol] 6.1 10*3/uL 3.6 - 10.7 10*3/uL [facility] Work Phone: Test Performed by [facility] [facility], [address] , [place] [address] [facility] Work Phone: LipaseOrdered By: Yenny amrtin on 08-14-2019 Lipase [Catalytic activity/Vol] 1294 U/L High 23 - 300 U/L [facility] Work Phone: No Panel InformationOrdered By: Yenny Greco on 08-14-2019 Interpretation and review of laboratory results Abnormal [facility] Work Phone: Test Performed by [facility], [address] , [place] [address] [facility] Work Phone: UrinalysisOrdered By: Yenny Greco on 08-14-2019 Appearance (U) Turbid Clear NA [facility] Work Phone: [phone] Bacteria, UA Moderate (6-50) Negative /[HPF] [facility] Work Phone: Bilirubin Urine Negative Negative mg/dL [facility] Work Phone: Color (U) LIGHT YELLOW Lt. Yellow NA [facility] Work Phone: [phone] Glucose, Ur Normal Normal (<70) mg/dL [facility] Work Phone: [phone] Ketones Ql (U) Negative Negative mg/dL [facility] Work Phone: [phone] LEUKOCYTES, UA Negative Negative Reyes/uL [facility] Work Phone: Nitrite, Urine Negative Negative NA [facility] Work Phone: [phone] Occult Blood,Urine Negative Negative mg/dL [facility] Work Phone: ) pH (U) 8.0 [pH] [facility] Work Phone: Protein (U) [Mass/Vol] 10 mg/dL Negative [facility] Work Phone: RBC, UA 0-2 0 - 2 /[HPF] [facility] Work Phone: Specific [place], Urine 1.024 [facility] Work Phone: Squam Epithel, UA 11-25 3 - 5 /[HPF] [facility] Work Phone: Urobilinogen, Urine Normal Normal ( 0-1) mg/dL [facility] Work Phone: Volume 12 ml [facility] Work Phone: WBC, UA 3-5 0 - 5 /[HPF] [facility] Work Phone: Test Performed by [facility], [address] [place] [address] , [address] Work Phone: [phone] Abdomen Pelvis Wo Contras tOrdered By: Devin Benson on 07-28-2019 Patient Name: SOCORRO ORELLANA ---CT--- Exam Date/Time 07/28/2019 22:49:[address] Abdomen/Pelvis (No PO, No IV) Ordering Physician MD TALISHA, DEVIN Crocker Accession Number [id number] CPT4 Codes 50142 (CT Abdomen/Pelvis (No PO, No IV)) Reason For Exam upper abd pain, recent pancreatitis Report CT ABDOMEN AND PELVIS WITHOUT CONTRAST CLINICAL INDICATION: upper abd pain, recent pancreatitis TECHNIQUE: CT scan of the abdomen and pelvis without IV/oral contrast. Multiplanar reformations. Oral contrast utilized. COMPARISON: 07/24/2019 FINDINGS: Solid organ evaluation limited from lack of IV contrast. Lung bases are clear. No free intraperitoneal gas seen. Liver shows no significant abnormality. Normal-appearing biliary tree status-post cholecystectomy. Spleen shows no significant abnormality. Adrenal glands show no significant abnormality. Kidneys show no significant abnormality. Pancreas shows no significant abnormality. Abdominal aorta is nonaneurysmal. Normal appendix. Small amount of free fluid in the pelvis. Grossly normal ovaries. No ureteral calculus seen on either side. There is a tampon noted in the vagina. IMPRESSION: 1. Small amount of free fluid in the pelvis, nonspecific. Report Dictated on --- Final --- Dictating Physician: MD BUCK JOHN R Signed Date and Time: 07/28/2019 10:55 pm Signed by: MD BUCK JOHN R Transcribed Date and Time: 07/28/2019 10:56 [facility] Work Phone: Reyn[facility], [facility] In[facility] Rad[facility] Results From [facility] - 07/28/2019 10:56 PM EST Patient Name: SOCORRO GONSALES ---CT--- Exam Date/Time 07/28/2019 22:49:[address] Abdomen/Pelvis (No PO, No IV) Ordering Physician MD TALISHA, DEVIN Crocker Accession Number [id number] CPT4 Codes 96256 (CT Abdomen/Pelvis (No PO, No IV)) Reason For Exam upper abd pain, recent pancreatitis Report CT ABDOMEN AND PELVIS WITHOUT CONTRAST CLINICAL INDICATION: upper abd pain, recent pancreatitis TECHNIQUE: CT scan of the abdomen and pelvis without IV/oral contrast. Multiplanar reformations. Oral contrast utilized. COMPARISON: 07/24/2019 FINDINGS: Solid organ evaluation limited from lack of IV contrast. Lung bases are clear. No free intraperitoneal gas seen. Liver shows no significant abnormality. Normal-appearing biliary tree status-post cholecystectomy. Spleen shows no significant abnormality. Adrenal glands show no significant abnormality. Kidneys show no significant abnormality. Pancreas shows no significant abnormality. Abdominal aorta is nonaneurysmal. Normal appendix. Small amount of free fluid in the pelvis. Grossly normal ovaries. No ureteral calculus seen on either side. There is a tampon noted in the vagina. IMPRESSION: 1. Small amount of free fluid in the pelvis, nonspecific. Report Dictated on --- Final --- Dictating Physician: MD BUCK JOHN R Signed Date and Time: 07/28/2019 10:55 pm Signed by: MD BUCK JOHN R Transcribed Date and Time: 07/28/2019 10:56 [facility] Work Phone: Comprehensive Metabolic Pane lOrdered By: Devin Benson on 07-28-2019 Albumin [Mass/Vol] 4.6 g/dL 3.5 - 5 g/dL [facility] Work Phone: [phone] ALP [Catalytic activity/Vol] 97 U/L 38 - 126 U/L [facility] Work Phone: [phone] ALT [Catalytic activity/Vol] 46 U/L 13 - 69 U/L [facility] Work Phone: [phone] Anion gap [Moles/Vol] 11 mmol/L [facility] Work Phone: [phone] AST [Catalytic activity/Vol] 36 U/L 15 - 46 U/L [facility] Work Phone: [phone] Bilirubin [Mass/Vol] 0.2 mg/dL 0.2 - 1 .3 mg/dL [facility] Work Phone: [phone] Calcium [Mass/Vol] 9.4 mg/dL 8.4 - 10. 4 mg/dL [facility] Work Phone: [phone] Chloride [Moles/Vol] 107 mmol/L 98 - 10 7 mmol/L [facility] Work Phone: [phone] CO2 [Moles/Vol] 23 mmol/L 22 - 30 mmol/L [facility] Work Phone: [phone] Creatinine [Mass/Vol] 0.65 mg/dL 0.52 - 1.25 mg/dL [facility] Work Phone: [phone] EGFR IF NonAfrican Japanese >60.0 >60 mL/min [facility] Work Phone: [phone] Comment on above: Source- MDRD equatio n with creatinine calibration to IDMS(NKDEP) eGFR not recommended for drug dose adjustment GFR/1.73 sq M.predicted among blacks MDRD (S/P/Bld) [Vol rate/Area] mL/min/{1.73_m2} >60 mL/min [facility] Work Phone: [phone] Glucose [Mass/Vol] 91 mg/dL 70 - 100 mg/dL [facility] Work Phone: [phone] Interpretation and review of laboratory results Abnormal [facility] Work Phone: [phone] Potassium [Moles/Vol] 4.0 mmol/L 3.5 - 5.1 mmol/L [facility] Work Phone: [phone] Protein [Mass/Vol] 8.2 g/dL 6.3 - 8.2 g/dL [facility] Work Phone: [phone] Sodium [Moles/Vol] 141 mmol/L 135 - 145 mmol/L [facility] Work Phone: [phone] Urea nitrogen [Mass/Vol] 6 mg/dL Low 7 - 20 mg/dL [facility] Work Phone: [phone] HGC Urine Qual PregOrdered B y: Devin Benson on 07-28-2019 Beta HCG ( test) Ql (U) Negative Negative NA [facility] Work Phone: [phone] Comment on above: is the mos t common reason for HCG in urine, although choriocarcinoma, hydatidiform mole, and certain nontropho- blastic malignancies also result in detectable urinary HCG levels. Sensitivity = 20mIU/mL. Test Performed by [facility], [address] [place], [place] [address] , [place] [address] [facility] Work Phone: [phone] Hemogram (CBC) w/Auto DiffOr dered By: Devin Benson on 07-28-2019 Absolute Baso # 0.0 10*3/uL 0 - 0.2 10*3/uL [facility] Work Phone: [phone] Absolute Neut # 2.5 10*3/uL 1.8 - 7 10*3/uL [facility] Work Phone: ) [phone] Basophils/100 WBC (Bld) 0.8 % 0 - 2 % [facility] Work Phone: 222 Eosinophils (Bld) [#/Vol] 0.2 10*3/uL 0 - 0.5 10*3/uL [facility] Work Phone: [phone] Eosinophils/100 WBC (Bld) 4.9 % 1 - 6 % [facility] Work Phone: [phone] Erythrocyte distribution width (RBC) [Ratio] 13.9 % 11.5 - 14.5 % [facility] Work Phone: 222 Granulocytes/100 WBC (Bld) 57.4 % 40 - 80 % [facility] Work Phone: 222 Hematocrit (Bld) [Volume fraction] 33.1 % Low 35 - 47 % [facility] Work Phone: [phone]) 222 Hemoglobin (Bld) [Mass/Vol] 11.0 g/dL Low 11.7 - 16 g/dL [facility] Work Phone: [phone] Interpretation and review of laboratory results Abnormal [facility] Work Phone: [phone] 222 Lymphocytes (Bld) [#/Vol] 1.3 10*3/uL 1 - 4.3 10*3/uL [facility] Work Phone: [phone]) 222 Lymphocytes/100 WBC (Bld) 29.5 % 20 - 40 % [facility] Work Phone: [phone]) 222 MCH (RBC) [Entitic mass] 27.0 pg 26 - 34 pg [facility] Work Phone: 1) MCHC 33.4 % 32 - 36 % [facility] Work Phone: 1) MCV (RBC) [Entitic vol] 80.8 fL 79 - 98 fL [facility] Work Phone: [phone]) 222 Monocytes (Bld) [#/Vol] 0.3 10*3/uL 0 - 0.8 10*3/uL [facility] Work Phone: [phone]) 222 Monocytes/100 WBC (Bld) 7.4 % 2 - 10 % [facility] Work Phone: [phone]) 222 Platelet mean volume (Bld) [Entitic vol] 8.1 fL 7.4 - 10.4 fL [facility] Work Phone: 1() 222 Platelets (Bld) [#/Vol] 368 10*3/uL 140 - 440 10*3/uL [facility] Work Phone: 1() 222 RBC (Bld) [#/Vol] 4.10 10*6/uL 3.8 - 5.2 10*6/uL [facility] Work Phone: [phone] 222 WBC (Bld) [#/Vol] 4.4 10*3/uL 3.6 - 10.7 10*3/uL [facility] Work Phone: [phone] Test Performed by [facility] , [place], [place] [address] [facility] Work Phone: [phone] LipaseOrdered By: Devin Benson on 07-28-2019 Lipase [Catalytic activity/Vol] 284 U/L 23 - 300 U/L [facility] Work Phone: [phone] No Panel InformationOrdered By: Devin Benson on 07-28-2019 Test Performed by [facility], [address] , [place], [place] [address] [facility] Work Phone: [phone] UrinalysisOrdered By: Devin Benson on 07-28-2019 Appearance (U) Clear Clear NA [facility] Work Phone: [phone] Bacteria, UA Few (1-5) Negative /[HPF] [facility] Work Phone: [phone] Bilirubin Urine Negative Negative mg/dL [facility] Work Phone: [phone] Color (U) LIGHT YELLOW Lt. Yellow NA [facility] Work Phone: [phone] Glucose, Ur Normal Normal (<70) mg/dL [facility] Work Phone: [phone] Ketones Ql (U) Negative Negative mg/dL [facility] Work Phone: [phone] LEUKOCYTES, UA Negative Negative Reyes/uL [facility] Work Phone: [phone] Nitrite, Urine Negative Negative NA [facility] Work Phone: [phone] Occult Blood,Urine 0.5 mg/dL Negative [facility] Work Phone: [phone] pH (U) 6.0 [pH] [facility] Work Phone: [phone] RBC, UA 3-5 0 - 2 /[HPF] [facility] Work Phone: [phone] Specific [place], Urine 1.017 [facility] Work Phone: [phone] Squam Epithel, UA 11-25 3 - 5 /[HPF] [facility] Work Phone: [phone] Total Protein, Urine Negative Negative mg/dL [facility] Work Phone: [phone] Urobilinogen, Urine Normal Normal ( 0-1) mg/dL [facility] Work Phone: [phone] Volume 12 ml [facility] Work Phone: [phone] WBC, UA 0-2 0 - 5 /[HPF] [facility] Work Phone: [phone] Test Performed by [facility], [address] , [place], [place] [address] [facility] Work Phone: [phone] Basic Metabolic PanelOrdered By: Brad Yu on 07-27-2019 Anion gap [Moles/Vol] 9 mmol/L [facility] Work Phone: Calcium [Mass/Vol] 8.6 mg/dL 8.4 - 10. 4 mg/dL [facility] Work Phone: 222 Chloride [Moles/Vol] 106 mmol/L 98 - 10 7 mmol/L [facility] Work Phone: 222 CO2 [Moles/Vol] 26 mmol/L 22 - 30 mmol/L [facility] Work Phone: Creatinine [Mass/Vol] 0.7 mg/dL 0.52 - 1.25 mg/dL [facility] Work Phone: EGFR IF NonAfrican Japanese >60.0 >60 mL/min [facility] Work Phone: Comment on above: Source- MDRD equatio n with creatinine calibration to IDMS(NKDEP) eGFR not recommended for drug dose adjustment GFR/1.73 sq M.predicted among blacks MDRD (S/P/Bld) [Vol rate/Area] mL/min/{1.73_m2} >60 mL/min [facility] Work Phone: [phone] Glucose [Mass/Vol] 110 mg/dL High 70 - 100 mg/dL [facility] Work Phone: Interpretation and review of laboratory results Abnormal [facility] Work Phone: 222 Potassium [Moles/Vol] 3.9 mmol/L 3.5 - 5.1 mmol/L [facility] Work Phone: [phone] Sodium [Moles/Vol] 140 mmol/L 135 - 145 mmol/L [facility] Work Phone: 222 Urea nitrogen [Mass/Vol] 8 mg/dL 7 - 20 mg/dL [facility] Work Phone: [phone] CBCOrdered By: Brad Yu on 07-27-2019 Erythrocyte distribution width (RBC) [Ratio] 13.9 % 11.5 - 14.5 % [facility] Work Phone: [phone] Hematocrit (Bld) [Volume fraction] 28.3 % Low 35 - 47 % [facility] Work Phone: [phone]) 222 Hemoglobin (Bld) [Mass/Vol] 9.3 g/dL Low 11.7 - 16 g/dL [facility] Work Phone: [phone] Interpretation and review of laboratory results Abnormal [facility] Work Phone: [phone] 222 MCH (RBC) [Entitic mass] 26.9 pg 26 - 34 pg [facility] Work Phone: 1() MCHC 32.9 % 32 - 36 % [facility] Work Phone: 1) MCV (RBC) [Entitic vol] 81.7 fL 79 - 98 fL [facility] Work Phone: 1() Platelet mean volume (Bld) [Entitic vol] 8.1 fL 7.4 - 10.4 fL [facility] Work Phone: [phone] 222 Platelets (Bld) [#/Vol] 276 10*3/uL 140 - 440 10*3/uL [facility] Work Phone: [phone] RBC (Bld) [#/Vol] 3.46 10*6/uL Low 3.8 - 5.2 10*6/uL [facility] Work Phone: [phone] WBC (Bld) [#/Vol] 4.2 10*3/uL 3.6 - 10.7 10*3/uL [facility] Work Phone: [phone] Test Performed by [facility], [facility] [employer] [place] [address] [facility] Work Phone: LipaseOrdered By: Eliel chavez on 07-27-2019 Lipase [Catalytic activity/Vol] 260 U/L 23 - 300 U/L [facility] Work Phone: [phone] Panel InformationOrdered By: Brad Yu on 07-27-2019 Test Performed by [employer], [facility] [place] [place] [address] [facility] Work Phone: [phone] Basic Metabolic PanelOrdered By: Brad Yu on 07-26-2019 Anion gap [Moles/Vol] 10 mmol/L [facility] Work Phone: [phone] Calcium [Mass/Vol] 8.8 mg/dL 8.4 - 10. 4 mg/dL [facility] Work Phone: 222 Chloride [Moles/Vol] 108 mmol/L High 98 - 10 7 mmol/L [facility] Work Phone: 222 CO2 [Moles/Vol] 20 mmol/L Low 22 - 30 mmol/L [facility] Work Phone: 222 Creatinine [Mass/Vol] 0.6 mg/dL 0.52 - 1.25 mg/dL [facility] Work Phone: EGFR IF NonAfrican Japanese >60.0 >60 mL/min [facility] Work Phone: Comment on above: Source- MDRD equatio n with creatinine calibration to IDMS(NKDEP) eGFR not recommended for drug dose adjustment GFR/1.73 sq M.predicted among blacks MDRD (S/P/Bld) [Vol rate/Area] mL/min/{1.73_m2} >60 mL/min [facility] Work Phone: 222 Glucose [Mass/Vol] 65 mg/dL Low 70 - 100 mg/dL [facility] Work Phone: Potassium [Moles/Vol] 4.8 mmol/L 3.5 - 5.1 mmol/L [facility] Work Phone: [phone] Comment on above: Slightly hemolysed, interpret with caution. Sodium [Moles/Vol] 138 mmol/L 135 - 145 mmol/L [facility] Work Phone: [phone] Urea nitrogen [Mass/Vol] 11 mg/dL 7 - 20 mg/dL [facility] Work Phone: CBCOrdered By: Brad Yu on 07-26-2019 Erythrocyte distribution width (RBC) [Ratio] 14.2 % 11.5 - 14.5 % [facility] Work Phone: [phone] Hematocrit (Bld) [Volume fraction] 27.5 % Low 35 - 47 % [facility] Work Phone: [phone] Hemoglobin (Bld) [Mass/Vol] 8.9 g/dL Low 11.7 - 16 g/dL [facility] Work Phone: Interpretation and review of laboratory results Abnormal [facility] Work Phone: [phone] MCH (RBC) [Entitic mass] 26.6 pg 26 - 34 pg [facility] Work Phone: [phone] MCHC 32.4 % 32 - 36 % [facility] Work Phone: [phone] MCV (RBC) [Entitic vol] 82.2 fL 79 - 98 fL [facility] Work Phone: [phone] Platelet mean volume (Bld) [Entitic vol] 8.2 fL 7.4 - 10.4 fL [facility] Work Phone: [phone] Platelets (Bld) [#/Vol] 251 10*3/uL 140 - 440 10*3/uL [facility] Work Phone: [phone] RBC (Bld) [#/Vol] 3.35 10*6/uL Low 3.8 - 5.2 10*6/uL [facility] Work Phone: [phone] WBC (Bld) [#/Vol] 5.0 10*3/uL 3.6 - 10.7 10*3/uL [facility] Work Phone: [phone] Test Performed by [address] [address] [facility] Work Phone: LipaseOrdered By: Eilel chavez on 07-26-2019 Lipase [Catalytic activity/Vol] 331 U/L High 23 - 300 U/L [facility] Work Phone: [phone] MRI abdomen without contrast Ordered By: Nelli Harper on 07-26-2019 Patient Name: SOCORRO ORELLANA ---MRI--- Exam Date/Time 07/25/2019 15:25:00 EST Exam MRI Abdomen w/o Contrast Ordering Physician [id number] NELLI CORDERO Accession Number [id number] CPT4 Codes 19734 () Reason For Exam Concern for pancreatic duct obstruction. MRCP Report EXAMINATION: MRI of the abdomen without contrast and MRCP. COMPARISON: 05/08/2019. REASON FOR STUDY: Possible pancreatic duct obstruction. TECHNIQUE: Axial and coronal spin and gradient-echo T1 and T2-weighted as well as diffusion-weighted images were obtained. Thick-slab coronal breath-hold T2-weighted images were obtained. Rotational MIP MRCP was rendered from the source images. FINDINGS: SOLID ORGANS: Pancreas: Pancreatic tail is truncated and terminates short of the splenic hilum. Parenchyma otherwise appears normal. A normal-appearing dorsal to empty into the minor papilla. A small ventral duct along with the common bile duct empties into the major papilla. Liver, spleen and adrenal glands appear normal. BILIARY TREE: Moderate narrowing at the confluence of the hepatic ducts. Common hepatic duct is moderately distended and measures 8.6 mm in diameter proximally. Common bile duct measures 6.1 mm at its widest and tapers to the ampulla. No intraluminal filling defect is observed. SYSTEM: The kidneys appear normal. The ureters are not appreciably dilated. GI SYSTEM: The stomach and bowel loops appear normal. PERITONEUM, RETROPERITONEUM AND MESENTERY: No inflammatory change, free fluid or abnormal mass is shown. VASCULATURE: No abnormality seen. MUSCULOSKELETAL: Osseous structures appear intact. No extraskeletal soft tissue abnormality noted. LUNG BASES: No abnormality noted. CONCLUSIONS: 1. Pancreas divisum and otherwise no evidence of ductal stricture or obstruction. 2. Moderate stricture at the confluence of hepatic ducts. 3. 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 Report Dictated on --- Final --- Dictated: 07/26/2019 7:09 am Dictating Physician: MD LO B NELSON Signed Date and Time: 07/26/2019 7:32 am Signed by: MD LO B NELSON Transcribed Date and Time: 07/26/2019 7:09 [facility] Work Phone: Reynaldo, [facility] In[facility] Radiology Results From [facility] - 07/26/2019 7:33 AM EST Patient Name: SOCORRO GONSALES ---MRI--- Exam Date/Time 07/25/2019 15:25:00 EST Exam MRI Abdomen w/o Contrast Ordering Physician [id number] -NELLI HARPER Accession Number [id number] CPT4 Codes 12970 () Reason For Exam Concern for pancreatic duct obstruction. MRCP Report EXAMINATION: MRI of the abdomen without contrast and MRCP. COMPARISON: 05/08/2019. REASON FOR STUDY: Possible pancreatic duct obstruction. TECHNIQUE: Axial and coronal spin and gradient-echo T1 and T2-weighted as well as diffusion-weighted images were obtained. Thick-slab coronal breath-hold T2-weighted images were obtained. Rotational MIP MRCP was rendered from the source images. FINDINGS: SOLID ORGANS: Pancreas: Pancreatic tail is truncated and terminates short of the splenic hilum. Parenchyma otherwise appears normal. A normal-appearing dorsal to empty into the minor papilla. A small ventral duct along with the common bile duct empties into the major papilla. Liver, spleen and adrenal glands appear normal. BILIARY TREE: Moderate narrowing at the confluence of the hepatic ducts. Common hepatic duct is moderately distended and measures 8.6 mm in diameter proximally. Common bile duct measures 6.1 mm at its widest and tapers to the ampulla. No intraluminal filling defect is observed. SYSTEM: The kidneys appear normal. The ureters are not appreciably dilated. GI SYSTEM: The stomach and bowel loops appear normal. PERITONEUM, RETROPERITONEUM AND MESENTERY: No inflammatory change, free fluid or abnormal mass is shown. VASCULATURE: No abnormality seen. MUSCULOSKELETAL: Osseous structures appear intact. No extraskeletal soft tissue abnormality noted. LUNG BASES: No abnormality noted. CONCLUSIONS: 1. Pancreas divisum and otherwise no evidence of ductal stricture or obstruction. 2. Moderate stricture at the confluence of hepatic ducts. 3. 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 Report Dictated on --- Final --- Dictated: 07/26/2019 7:09 am Dictating Physician: MD LO B NELSON Signed Date and Time: 07/26/2019 7:32 am Signed by: MD LO B NELSON Transcribed Date and Time: 07/26/2019 7:09 [facility] Work Phone: No Panel InformationOrdered By: Brad Yu on 07-26-2019 Interpretation and review of laboratory results Abnormal [facility] Work Phone: Test Performed by [id number] [place], [place] [address]A Work Phone: Add On Lab TestOrdered By: Latia Mohamud on 07-25-2019 Add On Accepted [facility] Work Phone: Comment on above: Specimen available & acceptable for analysis. Test Performed by [employer] [facility], [place] [address] [facility] Work Phone: [phone] Add On Accepted [facility] Work Phone: [phone] Comment on above: Specimen available & acceptable for analysis. Test Performed by [employer], [place] [address] [facility] Work Phone: [phone] Add On Accepted [facility] Work Phone: [phone] Comment on above: Specimen available & acceptable for analysis. Test Performed by [employer], [place] [address] [facility] Work Phone: Basic Metabolic PanelOrdered By: Brad Yu on 07-25-2019 Anion gap [Moles/Vol] 8 mmol/L [facility] Work Phone: [phone] Calcium [Mass/Vol] 9.1 mg/dL 8.4 - 10. 4 mg/dL [facility] Work Phone: [phone] Chloride [Moles/Vol] 112 mmol/L High 98 - 10 7 mmol/L [facility] Work Phone: [phone] CO2 [Moles/Vol] 20 mmol/L Low 22 - 30 mmol/L [facility] Work Phone: [phone] Creatinine [Mass/Vol] 0.64 mg/dL 0.52 - 1.25 mg/dL [facility] Work Phone: [phone] EGFR IF NonAfrican Japanese >60.0 >60 mL/min [facility] Work Phone: [phone] Comment on above: Source- MDRD equatio n with creatinine calibration to IDMS(NKDEP) eGFR not recommended for drug dose adjustment GFR/1.73 sq M.predicted among blacks MDRD (S/P/Bld) [Vol rate/Area] mL/min/{1.73_m2} >60 mL/min [facility] Work Phone: Glucose [Mass/Vol] 84 mg/dL 70 - 100 mg/dL [facility] Work Phone: Interpretation and review of laboratory results Abnormal [facility] Work Phone: 1 Potassium [Moles/Vol] 3.6 mmol/L 3.5 - 5.1 mmol/L [facility] Work Phone: Sodium [Moles/Vol] 141 mmol/L 135 - 145 mmol/L [facility] Work Phone: Urea nitrogen [Mass/Vol] 11 mg/dL 7 - 20 mg/dL [facility] Work Phone: Test Performed by [facility], [facility] [place] [place] [address] [facility] Work Phone: C. Trachomatis / N. Gonorrho eae, DNA ProbeOrdered By: Yanira Cuevas on 07-25-2019 C. trachomatis DNA ALLISON+probe Ql (Genital specimen) NOT Detected Chlamydia trachomatis Nucleic Acid NOT Detected by DNA Amplification using the Cepheid System. Culture is the only recommended test in medical-legal cases such as suspected child abuse or molestation. [facility] Work Phone: N. gonorrhoeae DNA ALLISON+probe Ql (Unsp spec) NOT Detected Neisseria gonorrhoeae Nucleic Acid NOT Detected by DNA Amplification using the Cepheid System. Culture is the only recommended test in medical-legal cases such as suspected child abuse or molestation. [facility] Work Phone: Test Performed by [facility], [facility] [place] [address] Specimen Source Comment:Cervix [facility] Work Phone: CBCOrdered By: Brad Yu on 07-25-2019 Erythrocyte distribution width (RBC) [Ratio] 14.1 % 11.5 - 14.5 % [facility] Work Phone: Hematocrit (Bld) [Volume fraction] 29.8 % Low 35 - 47 % [facility] Work Phone: Hemoglobin (Bld) [Mass/Vol] 9.6 g/dL Low 11.7 - 16 g/dL [facility] Work Phone: [phone] Interpretation and review of laboratory results Abnormal [facility] Work Phone: MCH (RBC) [Entitic mass] 26.2 pg 26 - 34 pg [facility] Work Phone: [phone] MCHC 32.3 % 32 - 36 % [facility] Work Phone: [phone] MCV (RBC) [Entitic vol] 81.1 fL 79 - 98 fL [facility] Work Phone: [phone] Platelet mean volume (Bld) [Entitic vol] 7.9 fL 7.4 - 10.4 fL [facility] Work Phone: [phone] Platelets (Bld) [#/Vol] 305 10*3/uL 140 - 440 10*3/uL [facility] Work Phone: [phone] RBC (Bld) [#/Vol] 3.68 10*6/uL Low 3.8 - 5.2 10*6/uL [facility] Work Phone: [phone] WBC (Bld) [#/Vol] 7.5 10*3/uL 3.6 - 10.7 10*3/uL [facility] Work Phone: [phone] Test Performed by [facility], [address] [place] [address] [facility] Work Phone: [phone] EthanolOrdered By: Brad Yu on 07-25-2019 Ethanol Lvl <0.010 0 - 0.01 g/dL [facility] Work Phone: Comment on above: NOTE: This result is for medical treatment only. Analysis performed using non-forensic procedures. Lipid PanelOrdered By: Brad johnson on 07-25-2019 Cholesterol [Mass/Vol] 126 mg/dL <200 [facility] Work Phone: [phone] Cholesterol in HDL [Mass/Vol] 41 mg/dL 40 - 60 mg/dL [facility] Work Phone: [phone] Cholesterol in LDL [Mass/Vol] 63 mg/dL <100 [facility] Work Phone: [phone] Cholesterol.total/Cho lesterol in HDL [Mass ratio] 3 {ratio} [facility] Work Phone: Comment on above: Ref Range: < 3 Low Risk for CHD 3-6 Mod Risk for CHD > 6 High Risk for CHD Triglyceride [Mass/Vol] 109 mg/dL <150 [facility] Work Phone: No Panel InformationOrdered By: Brad Yu on 07-25-2019 Test Performed by [facility], [address] [place] [address] [facility] Work Phone: US NON OB TRANSVAGINALOrdere d By: Yanira Cuevas on 07-25-2019 Patient Name: SOCORRO ORELLANA ---Ultrasound--- Exam Date/Time 07/25/2019 12:51:58 EST Exam US Transvaginal Ordering Physician DO CUEVAS HANNAH Accession Number [id number] CPT4 Codes 50643 () Reason For Exam acute on chronic LLQ pain, CT with L hemorrhagic cyst Report ULTRASOUND PELVIS, TRANSVAGINAL: INDICATION: Pelvic pain COMPARISON: 05/13/2018. A sonogram of the pelvis is performed transvaginally. The uterus is retroverted and measures 8.9 x 4.7 x 6.1 cm. The echogenicity of the myometrium is homogeneous. The endometrial stripe measures 11 mm. The right ovary is normal in size and echogenicity and measures 4.2 x 2.2 x 2.1 cm. The previously noted ovarian cyst is no longer visible. The left ovary is normal in size and echogenicity and measures 3.5 x 1.8 x 2.3 cm. Blood flow is present in the ovaries bilaterally by Doppler analysis. No free fluid or pelvic masses are noted. IMPRESSIONS: Unremarkable ultrasound of the pelvis. Report Dictated on --- Final --- Dictated: 07/25/2019 1:45 pm Dictating Physician: DO BARAJAS ALFRED Signed Date and Time: 07/25/2019 1:47 pm Signed by: DO BARAJAS ALFRED Transcribed Date and Time: 07/25/2019 1:45 [facility] Work Phone: Reyn[facility]do, [facility] Results From [facility] - 07/25/2019 1:52 PM EST Patient Name: SOCORRO GONSALES ---Ultrasound--- Exam Date/Time 07/25/2019 12:51:58 EST Exam US Transvaginal Ordering Physician DO CUEVAS HANNAH Accession Number [id number] CPT4 Codes 10969 () Reason For Exam acute on chronic LLQ pain, CT with L hemorrhagic cyst Report ULTRASOUND PELVIS, TRANSVAGINAL: INDICATION: Pelvic pain COMPARISON: 05/13/2018. A sonogram of the pelvis is performed transvaginally. The uterus is retroverted and measures 8.9 x 4.7 x 6.1 cm. The echogenicity of the myometrium is homogeneous. The endometrial stripe measures 11 mm. The right ovary is normal in size and echogenicity and measures 4.2 x 2.2 x 2.1 cm. The previously noted ovarian cyst is no longer visible. The left ovary is normal in size and echogenicity and measures 3.5 x 1.8 x 2.3 cm. Blood flow is present in the ovaries bilaterally by Doppler analysis. No free fluid or pelvic masses are noted. IMPRESSIONS: Unremarkable ultrasound of the pelvis. Report Dictated on --- Final --- Dictated: 07/25/2019 1:45 pm Dictating Physician: DO BARAJAS ALFRED Signed Date and Time: 07/25/2019 1:47 pm Signed by: DO BARAJAS ALFRED Transcribed Date and Time: 07/25/2019 1:45 [facility] Work Phone: Urine Drug ScreenOrdered By: Pam Briggs on 07-25-2019 Amphetamines, urine Negative [facility] Work Phone: Barbiturates, Ur Negative [facility] Work Phone: Benzodiazepine Ur Qual Negative [facility] Work Phone: [phone] Cocaine Metabolites, Ur Negative [facility] Work Phone: Methadone, Urine Negative [facility] Work Phone: Opiates, Urine Positive [facility] Work Phone: [phone] Oxycodone Screen, Ur Negative [facility] Work Phone: PCP, Urine Negative [facility] Work Phone: Comment on above: The expected value f or all of the drugs listed above is Negative. The following drugs or drug groups have been screened for by Immunoassay at the following thresholds: Amphetamine class (1000 ng/mL), Barbiturates (200 ng/mL), Benzodiazepines (200 ng/mL), Cocaine (300 ng/mL), Methadone (300 ng/mL), Opiates (300 ng/mL), Oxycodone (100 ng/mL), and PCP (25 ng/mL). NOTE: These results are for medical treatment only. Analysis performed using non-forensic procedures. POSITIVE results are NOT confirmed by a more specific alternative method unless requested. If confirmation is needed, request confirmation under separate order. Test Performed by [facility], [facility] Jia Hernandez. , [address] Work Phone: [phone] Basic Metabolic PanelOrdered By: Pam Briggs on 07-24-2019 Anion gap [Moles/Vol] 14 mmol/L [facility] Work Phone: [phone] Calcium [Mass/Vol] 9.9 mg/dL 8.4 - 10. 4 mg/dL [facility] Work Phone: [phone] Chloride [Moles/Vol] 107 mmol/L 98 - 10 7 mmol/L [facility] Work Phone: CO2 [Moles/Vol] 23 mmol/L 22 - 30 mmol/L [facility] Work Phone: Creatinine [Mass/Vol] 0.72 mg/dL 0.52 - 1.25 mg/dL [facility] Work Phone: [phone] EGFR IF NonAfrican Japanese >60.0 >60 mL/min [facility] Work Phone: Comment on above: Source- MDRD equatio n with creatinine calibration to IDMS(NKDEP) eGFR not recommended for drug dose adjustment GFR/1.73 sq M.predicted among blacks MDRD (S/P/Bld) [Vol rate/Area] mL/min/{1.73_m2} >60 mL/min [facility] Work Phone: Glucose [Mass/Vol] 106 mg/dL High 70 - 100 mg/dL [facility] Work Phone: Potassium [Moles/Vol] 4.0 mmol/L 3.5 - 5.1 mmol/L [facility] Work Phone: Sodium [Moles/Vol] 144 mmol/L 135 - 145 mmol/L [facility] Work Phone: Urea nitrogen [Mass/Vol] 11 mg/dL 7 - 20 mg/dL [facility] Work Phone: CT Abdomen Pelvis W Contrast Ordered By: Pam Briggs on 07-24-2019 Patient Name: SOCORRO ORELLANA ---CT--- Exam Date/Time 07/24/2019 21:28:[address] Abdomen/Pelvis w/ IV Contrast (IV Onl Ordering Physician MD MAGALI, PAM Banks Accession Number [id number] CPT4 Codes 72855 (CT Abdomen/Pelvis w/ IV Contrast (IV Onl), Q9967 (CT ISOVUE 370MG/ML&[id number]&ML& 1) Reason For Exam LLQ pain, recent small bowel cyst removal and cholecystecomy Report CT ABDOMEN AND PELVIS WITH CONTRAST CLINICAL INDICATION: LLQ pain, recent small bowel cyst removal and cholecystectomy TECHNIQUE: CT scan of the abdomen and pelvis, with IV contrast. Multiplanar reformations. COMPARISON: None. FINDINGS: Abdomen: Visualized lung bases grossly unremarkable. Gallbladder surgically absent. Liver without significant abnormality. Spleen without significant abnormality. Pancreatic head-body prominent, with loss of normal pancreaticoduodenal fat plane and some mesenteric fat stranding deep to the uncinate process, all new from comparison. No apparent pseudocyst formation. Kidneys without significant abnormality. Adrenal glands without significant abnormality. Pelvis: Bowel grossly unremarkable. Moderate-large amount of retained stool. Appendix not confidently identified. No significant, free peritoneal fluid or discrete abscess. Abdominal aorta is nonaneurysmal. Hemorrhagic cyst suggested in left ovary on comparison study smaller and less apparent. Axial skeleton grossly intact. IMPRESSION: 1. Findings which may be reactive secondary to recent postsurgical change or represent nonspecific postinflammatory change involving the pancreatic head, including groove pancreatitis. Correlation with appropriate laboratory values and follow-up suggested. 2. Findings suggestive of constipation. Report Dictated on Workstation: [id number] --- Final --- Dictating Physician: MD GARCIA WENDELL Signed Date and Time: 07/24/2019 9:44 pm Signed by: MD GARCIA WENDELL Transcribed Date and Time: 07/24/2019 9:45 [facility] Work Phone: Reynaldo, [facility] 07[facility] 9:45 PM EST Patient Name: SOCORRO GONSALES ---CT--- Exam Date/Time 07/24/2019 21:28:[address] Abdomen/Pelvis w/ IV Contrast (IV Onl Ordering Physician MD MAGALI, PAM Banks Accession Number [id number] CPT4 Codes 55245 (CT Abdomen/Pelvis w/ IV Contrast (IV Onl), Q9967 (CT ISOVUE 370MG/ML&[id number]&ML& 1) Reason For Exam LLQ pain, recent small bowel cyst removal and cholecystecomy Report CT ABDOMEN AND PELVIS WITH CONTRAST CLINICAL INDICATION: LLQ pain, recent small bowel cyst removal and cholecystectomy TECHNIQUE: CT scan of the abdomen and pelvis, with IV contrast. Multiplanar reformations. COMPARISON: None. FINDINGS: Abdomen: Visualized lung bases grossly unremarkable. Gallbladder surgically absent. Liver without significant abnormality. Spleen without significant abnormality. Pancreatic head-body prominent, with loss of normal pancreaticoduodenal fat plane and some mesenteric fat stranding deep to the uncinate process, all new from comparison. No apparent pseudocyst formation. Kidneys without significant abnormality. Adrenal glands without significant abnormality. Pelvis: Bowel grossly unremarkable. Moderate-large amount of retained stool. Appendix not confidently identified. No significant, free peritoneal fluid or discrete abscess. Abdominal aorta is nonaneurysmal. Hemorrhagic cyst suggested in left ovary on comparison study smaller and less apparent. Axial skeleton grossly intact. IMPRESSION: 1. Findings which may be reactive secondary to recent postsurgical change or represent nonspecific postinflammatory change involving the pancreatic head, including groove pancreatitis. Correlation with appropriate laboratory values and follow-up suggested. 2. Findings suggestive of constipation. Report Dictated on --- Final --- Dictating Physician: MD GARCIA WENDELL Signed Date and Time: 07/24/2019 9:44 pm Signed by: MD GARCIA WENDELL Transcribed Date and Time: 07/24/2019 9:45 [facility] Work Phone: HGC Urine Qual PregOrdered B y: Pam Briggs on 07-24-2019 Beta HCG ( test) Ql (U) Negative Negative NA [facility] Work Phone: [phone] Comment on above: is the mos t common reason for HCG in urine, although choriocarcinoma, hydatidiform mole, and certain nontropho- blastic malignancies also result in detectable urinary HCG levels. Sensitivity = 20mIU/mL. Test Performed by [facility], [address] , [place] [address] [facility] Work Phone: [phone] Hemogram (CBC) w/Auto DiffOr dered By: Pam Briggs on 07-24-2019 Absolute Baso # 0.1 10*3/uL 0 - 0.2 10*3/uL [facility] Work Phone: Absolute Neut # 3.8 10*3/uL 1.8 - 7 10*3/uL [facility] Work Phone: [phone] Basophils/100 WBC (Bld) 1.7 % 0 - 2 % [facility] Work Phone: [phone] Eosinophils (Bld) [#/Vol] 0.2 10*3/uL 0 - 0.5 10*3/uL [facility] Work Phone: Eosinophils/100 WBC (Bld) 2.8 % 1 - 6 % [facility] Work Phone: [phone] Erythrocyte distribution width (RBC) [Ratio] 14.0 % 11.5 - 14.5 % [facility] Work Phone: [phone] Granulocytes/100 WBC (Bld) 62.8 % 40 - 80 % [facility] Work Phone: Hematocrit (Bld) [Volume fraction] 35.6 % 35 - 47 % [facility] Work Phone: [phone] Hemoglobin (Bld) [Mass/Vol] 11.8 g/dL 11.7 - 16 g/dL [facility] Work Phone: [phone] Lymphocytes (Bld) [#/Vol] 1.6 10*3/uL 1 - 4.3 10*3/uL [facility] Work Phone: [phone] Lymphocytes/100 WBC (Bld) 26.9 % 20 - 40 % [facility] Work Phone: [phone] MCH (RBC) [Entitic mass] 26.9 pg 26 - 34 pg [facility] Work Phone: [phone] MCHC 33.2 % 32 - 36 % [facility] Work Phone: [phone] MCV (RBC) [Entitic vol] 80.8 fL 79 - 98 fL [facility] Work Phone: [phone] Monocytes (Bld) [#/Vol] 0.4 10*3/uL 0 - 0.8 10*3/uL [facility] Work Phone: [phone] Monocytes/100 WBC (Bld) 5.8 % 2 - 10 % [facility] Work Phone: [phone] Platelet mean volume (Bld) [Entitic vol] 7.8 fL 7.4 - 10.4 fL [facility] Work Phone: [phone] Platelets (Bld) [#/Vol] 368 10*3/uL 140 - 440 10*3/uL [facility] Work Phone: [phone] RBC (Bld) [#/Vol] 4.41 10*6/uL 3.8 - 5.2 10*6/uL [facility] Work Phone: [phone] WBC (Bld) [#/Vol] 6.1 10*3/uL 3.6 - 10.7 10*3/uL [facility] Work Phone: [phone] Test Performed by [facility], [facility] Jia Singh , [place] [address] [facility] Work Phone: [phone] Hepatic Function PanelOrdere d By: Pam Briggs on 07-24-2019 Albumin [Mass/Vol] 5.0 g/dL 3.5 - 5 g/dL [facility] Work Phone: [phone] ALP [Catalytic activity/Vol] 81 U/L 38 - 126 U/L [facility] Work Phone: [phone] ALT [Catalytic activity/Vol] 34 U/L 13 - 69 U/L [facility] Work Phone: [phone] AST [Catalytic activity/Vol] 24 U/L 15 - 46 U/L [facility] Work Phone: [phone] Bilirubin [Mass/Vol] 0.2 mg/dL 0.2 - 1 .3 mg/dL [facility] Work Phone: [phone] Bilirubin.indirect [Mass/Vol] 0.0 mg/dL 0 - 0.3 mg/dL [facility] Work Phone: [phone] Protein [Mass/Vol] 8.9 g/dL High 6.3 - 8.2 g/dL [facility] Work Phone: [phone] LipaseOrdered By: Pam ann on 07-24-2019 Lipase [Catalytic activity/Vol] 1342 U/L High 23 - 300 U/L [facility] Work Phone: [phone] No Panel InformationOrdered By: Pam Briggs on 07-24-2019 Interpretation and review of laboratory results Abnormal [facility] Work Phone: Test Performed by [facility], [address] [place] [address] [address] Work Phone: [phone] UrinalysisOrdered By: Pam Taveras on 07-24-2019 Appearance (U) Clear Clear NA [facility] Work Phone: [phone] Bacteria, UA Moderate (6-50) Negative /[HPF] [facility] Work Phone: [phone] Bilirubin Urine Negative Negative mg/dL [facility] Work Phone: [phone] Color (U) LIGHT YELLOW Lt. Yellow NA [facility] Work Phone: [phone] Glucose, Ur Normal Normal (<70) mg/dL [facility] Work Phone: [phone] Ketones Ql (U) Negative Negative mg/dL [facility] Work Phone: [phone] LEUKOCYTES, UA Negative Negative Reyes/uL [facility] Work Phone: [phone] Nitrite, Urine Negative Negative NA [facility] Work Phone: [phone] Occult Blood,Urine 0.2 mg/dL Negative [facility] Work Phone: [phone] pH (U) 8.0 [pH] [facility] Work Phone: [phone] Protein (U) [Mass/Vol] 10 mg/dL Negative [facility] Work Phone: [phone] RBC, UA 6-10 0 - 2 /[HPF] [facility] Work Phone: [phone] Specific [place], Urine 1.026 [facility] Work Phone: [phone] Squam Epithel, UA 0-2 3 - 5 /[HPF] [facility] Work Phone: [phone] Urobilinogen, Urine Normal Normal ( 0-1) mg/dL [facility] Work Phone: [phone] Volume 12 ml [facility] Work Phone: [phone] WBC, UA 0-2 0 - 5 /[HPF] [facility] Work Phone: [phone] Test Performed by [facility], [address] [place], [place] [address] , [place] [address] [facility] Work Phone: [phone] Basic Metabolic PanelOrdered By: Eliel Sepulveda on 07-19-2019 Anion gap [Moles/Vol] 6 mmol/L [facility] Work Phone: [phone] Calcium [Mass/Vol] 8.5 mg/dL 8.4 - 10. 4 mg/dL [facility] Work Phone: [phone] Chloride [Moles/Vol] 109 mmol/L High 98 - 10 7 mmol/L [facility] Work Phone: [phone] CO2 [Moles/Vol] 23 mmol/L 22 - 30 mmol/L [facility] Work Phone: [phone] Creatinine [Mass/Vol] 0.73 mg/dL 0.52 - 1.25 mg/dL [facility] Work Phone: [phone] EGFR IF NonAfrican Japanese >60.0 >60 mL/min [facility] Work Phone: [phone] Comment on above: Source- MDRD equatio n with creatinine calibration to IDMS(NKDEP) eGFR not recommended for drug dose adjustment GFR/1.73 sq M.predicted among blacks MDRD (S/P/Bld) [Vol rate/Area] mL/min/{1.73_m2} >60 mL/min [facility] Work Phone: [phone] Glucose [Mass/Vol] 86 mg/dL 70 - 100 mg/dL [facility] Work Phone: Interpretation and review of laboratory results Abnormal [facility] Work Phone: Potassium [Moles/Vol] 4.0 mmol/L 3.5 - 5.1 mmol/L [facility] Work Phone: Sodium [Moles/Vol] 138 mmol/L 135 - 145 mmol/L [facility] Work Phone: Urea nitrogen [Mass/Vol] 6 mg/dL Low 7 - 20 mg/dL [facility] Work Phone: Test Performed by [id number] [place], [place] [address]A Work Phone: CBCOrdered By: Eliel Sepulveda on 07-19-2019 Erythrocyte distribution width (RBC) [Ratio] 13.8 % 11.5 - 14.5 % [facility] Work Phone: Hematocrit (Bld) [Volume fraction] 28.2 % Low 35 - 47 % [facility] Work Phone: Hemoglobin (Bld) [Mass/Vol] 9.2 g/dL Low 11.7 - 16 g/dL [facility] Work Phone: Interpretation and review of laboratory results Abnormal [facility] Work Phone: MCH (RBC) [Entitic mass] 26.9 pg 26 - 34 pg [facility] Work Phone: MCHC 32.5 % 32 - 36 % [facility] Work Phone: MCV (RBC) [Entitic vol] 82.8 fL 79 - 98 fL [facility] Work Phone: Platelet mean volume (Bld) [Entitic vol] 8.1 fL 7.4 - 10.4 fL [facility] Work Phone: Platelets (Bld) [#/Vol] 246 10*3/uL 140 - 440 10*3/uL [facility] Work Phone: RBC (Bld) [#/Vol] 3.41 10*6/uL Low 3.8 - 5.2 10*6/uL [facility] Work Phone: [phone] WBC (Bld) [#/Vol] 5.1 10*3/uL 3.6 - 10.7 10*3/uL [facility] Work Phone: [phone] Test Performed by [facility], [address] [place] [id number] [facility] Work Phone: Basic Metabolic PanelOrdered By: Eliel Sepulveda on 07-18-2019 Anion gap [Moles/Vol] 9 mmol/L [facility] Work Phone: [phone] Calcium [Mass/Vol] 8.9 mg/dL 8.4 - 10. 4 mg/dL [facility] Work Phone: [phone] Chloride [Moles/Vol] 109 mmol/L High 98 - 10 7 mmol/L [facility] Work Phone: [phone] CO2 [Moles/Vol] 22 mmol/L 22 - 30 mmol/L [facility] Work Phone: ) [phone] Creatinine [Mass/Vol] 0.64 mg/dL 0.52 - 1.25 mg/dL [facility] Work Phone: [phone] EGFR IF NonAfrican Japanese >60.0 >60 mL/min [facility] Work Phone: Comment on above: Source- MDRD equatio n with creatinine calibration to IDMS(NKDEP) eGFR not recommended for drug dose adjustment GFR/1.73 sq M.predicted among blacks MDRD (S/P/Bld) [Vol rate/Area] mL/min/{1.73_m2} >60 mL/min [facility] Work Phone: [phone] Glucose [Mass/Vol] 74 mg/dL 70 - 100 mg/dL [facility] Work Phone: Interpretation and review of laboratory results Abnormal [facility] Work Phone: [phone] Potassium [Moles/Vol] 4.0 mmol/L 3.5 - 5.1 mmol/L [facility] Work Phone: [phone] Sodium [Moles/Vol] 140 mmol/L 135 - 145 mmol/L [facility] Work Phone: 1 Urea nitrogen [Mass/Vol] 7 mg/dL 7 - 20 mg/dL [facility] Work Phone: [phone] Test Performed by [employer], [place] [address] [facility] Work Phone: CBCOrdered By: Eliel Sepulveda on 07-18-2019 Erythrocyte distribution width (RBC) [Ratio] 14.0 % 11.5 - 14.5 % [facility] Work Phone: Hematocrit (Bld) [Volume fraction] 33.2 % Low 35 - 47 % [facility] Work Phone: Hemoglobin (Bld) [Mass/Vol] 10.5 g/dL Low 11.7 - 16 g/dL [facility] Work Phone: Interpretation and review of laboratory results Abnormal [facility] Work Phone: MCH (RBC) [Entitic mass] 26.5 pg 26 - 34 pg [facility] Work Phone: MCHC 31.7 % Low 32 - 36 % [facility] Work Phone: MCV (RBC) [Entitic vol] 83.8 fL 79 - 98 fL [facility] Work Phone: Platelet mean volume (Bld) [Entitic vol] 8.1 fL 7.4 - 10.4 fL [facility] Work Phone: Platelets (Bld) [#/Vol] 288 10*3/uL 140 - 440 10*3/uL [facility] Work Phone: 222 RBC (Bld) [#/Vol] 3.97 10*6/uL 3.8 - 5.2 10*6/uL [facility] Work Phone: 222 WBC (Bld) [#/Vol] 4.9 10*3/uL 3.6 - 10.7 10*3/uL [facility] Work Phone: Test Performed by [facility], [facility] [place] [address] [facility] Work Phone: FerritinOrdered By: Eliel boothe on 07-18-2019 Ferritin [Mass/Vol] 7 ng/mL Low 8 - 252 ng/mL [employer] Work Phone: Interpretation and review of laboratory results Abnormal [facility] Work Phone: Test Performed by [facility], [facility] [place] [address] [employer] Work Phone: Iron and TIBCOrdered By: Sunshine Sepulveda on 07-18-2019 Iron [Mass/Vol] 90 ug/dL 37 - 170 ug/dL [facility] Work Phone: Sat 20 % 15 - 50 % [facility] Work Phone: TIBC 441 ug/dL 261 - 497 ug/dL [facility] Work Phone: Test Performed by [facility], [facility] [place] [place] [address] [employer] Work Phone: Add On Lab TestOrdered By: Latia Mohamud on 07-17-2019 Add On Accepted [facility] Work Phone: Comment on above: Specimen available & acceptable for analysis. Test Performed by [employer], [place] [address] [employer] Work Phone: CT Abdomen Pelvis W Contrast Ordered By: Aiden Ghotra on 07-17-2019 Patient Name: SOCORRO ORELLANA ---CT--- Exam Date/Time 07/17/2019 04:14:[address] Abdomen/Pelvis w/ IV Contrast (IV Onl Ordering Physician MARYCRUZ GHOTRA RYAN Accession Number [id number] CPT4 Codes 43017 (CT Abdomen/Pelvis w/ IV Contrast (IV Onl), Q9967 (CT ISOVUE 370MG/ML&[id number]&ML& 1) Reason For Exam RUQ/Epigastric Pain Report CT ABDOMEN AND PELVIS WITH CONTRAST Indication: Right upper quadrant and epigastric pain Scan Parameters: Multiple axial 3mm images were obtained of the abdomen and pelvis following no oral contrast with dynamic intravenous infusion of 75 mL of Isovue 370 mg contrast media. Coronal and sagittal reconstructions were reviewed as well. Comparison: 05/12/2019 FINDINGS: Lung bases: The lung bases are clear. Osseous structures: Normal. Liver: The hepatic contour is unremarkable. Biliary tree: The gallbladder has been surgically removed with clips present in expected postsurgical changes of mild intrahepatic and extrahepatic biliary ductal distention. Spleen: Normal. Adrenals: Normal. Pancreas: Normal. Kidneys: There is mild right renal hydronephrosis with prominence of the right renal pelvis and collecting system without a discrete obstructing calculus. The bladder contour is normal. Right and left renal enhancement is normal. Free fluid: Scant free fluid in the pelvic cul-de-sac. Lymphadenopathy: None. Aorta: Normal caliber. Bowel: The portions of the appendix visualized at the midline are within normal limits. Moderate to large fecal retention is present. The rectum, sigmoid colon, and descending colon are not well distended, similar to prior. Other: The uterus is heterogeneous with bilateral ovarian follicular cystic changes with a possible hemorrhagic cyst on the left.. IMPRESSION: Mild right renal hydronephrosis, of uncertain etiology, without an obstructing renal calculus. Moderate to large fecal retention/constipation. Bilateral ovarian follicular cystic changes with a possible left ovarian hemorrhagic cyst Interval removal of the gallbladder (cholecystectomy). Report Dictated on --- Final --- Dictated: 07/17/2019 4:37 am Dictating Physician: MD ROMERO JENNIFER R Signed Date and Time: 07/17/2019 4:43 am Signed by: MD ROMERO JENNIFER R Transcribed Date and Time: 07/17/2019 4:37 [facility] Work Phone: Reynaldo, [facility] 07[facility]17/[facility] 4:45 AM EST Patient Name: SOCORRO GONSALES ---CT--- Exam Date/Time 07/17/2019 04:14:[address] Abdomen/Pelvis w/ IV Contrast (IV Onl Ordering Physician MARYCRUZ GHOTRA RYAN Accession Number [id number] CPT4 Codes 77872 (CT Abdomen/Pelvis w/ IV Contrast (IV Onl), Q9967 (CT ISOVUE 370MG/ML&[id number]&ML& 1) Reason For Exam RUQ/Epigastric Pain Report CT ABDOMEN AND PELVIS WITH CONTRAST Indication: Right upper quadrant and epigastric pain Scan Parameters: Multiple axial 3mm images were obtained of the abdomen and pelvis following no oral contrast with dynamic intravenous infusion of 75 mL of Isovue 370 mg contrast media. Coronal and sagittal reconstructions were reviewed as well. Comparison: 05/12/2019 FINDINGS: Lung bases: The lung bases are clear. Osseous structures: Normal. Liver: The hepatic contour is unremarkable. Biliary tree: The gallbladder has been surgically removed with clips present in expected postsurgical changes of mild intrahepatic and extrahepatic biliary ductal distention. Spleen: Normal. Adrenals: Normal. Pancreas: Normal. Kidneys: There is mild right renal hydronephrosis with prominence of the right renal pelvis and collecting system without a discrete obstructing calculus. The bladder contour is normal. Right and left renal enhancement is normal. Free fluid: Scant free fluid in the pelvic cul-de-sac. Lymphadenopathy: None. Aorta: Normal caliber. Bowel: The portions of the appendix visualized at the midline are within normal limits. Moderate to large fecal retention is present. The rectum, sigmoid colon, and descending colon are not well distended, similar to prior. Other: The uterus is heterogeneous with bilateral ovarian follicular cystic changes with a possible hemorrhagic cyst on the left.. IMPRESSION: Mild right renal hydronephrosis, of uncertain etiology, without an obstructing renal calculus. Moderate to large fecal retention/constipation. Bilateral ovarian follicular cystic changes with a possible left ovarian hemorrhagic cyst Interval removal of the gallbladder (cholecystectomy). Report Dictated on --- Final --- Dictated: 07/17/2019 4:37 am Dictating Physician: MD ROMERO JENNIFER R Signed Date and Time: 07/17/2019 4:43 am Signed by: MD ROMERO JENNIFER R Transcribed Date and Time: 07/17/2019 4:37 [facility] Work Phone: Cannabinoid, Urine, Screenin g, Critical CareOrdered By: Aiden Ghotra on 07-17-2019 THC Negative [facility] Work Phone: Comment on above: Threshold= 50 ng/mL Test Performed by [facility], [address] [place] [address] [facility] Work Phone: Comprehensive Metabolic Pane lOrdered By: Aiden Ghotra on 07-17-2019 Albumin [Mass/Vol] 4.5 g/dL 3.5 - 5 g/dL [facility] Work Phone: [phone] ALP [Catalytic activity/Vol] 50 U/L 38 - 126 U/L [facility] Work Phone: [phone] ALT [Catalytic activity/Vol] 22 U/L 13 - 69 U/L [facility] Work Phone: [phone] Anion gap [Moles/Vol] 9 mmol/L [facility] Work Phone: [phone] AST [Catalytic activity/Vol] 26 U/L 15 - 46 U/L [facility] Work Phone: [phone] Bilirubin [Mass/Vol] 0.2 mg/dL 0.2 - 1 .3 mg/dL [facility] Work Phone: [phone] Calcium [Mass/Vol] 9.3 mg/dL 8.4 - 10. 4 mg/dL [facility] Work Phone: [phone] Chloride [Moles/Vol] 108 mmol/L High 98 - 10 7 mmol/L [facility] Work Phone: [phone] CO2 [Moles/Vol] 21 mmol/L Low 22 - 30 mmol/L [facility] Work Phone: [phone] Creatinine [Mass/Vol] 0.66 mg/dL 0.52 - 1.25 mg/dL [facility] Work Phone: [phone] EGFR IF NonAfrican Japanese >60.0 >60 mL/min [facility] Work Phone: [phone] Comment on above: Source- MDRD equatio n with creatinine calibration to IDMS(NKDEP) eGFR not recommended for drug dose adjustment GFR/1.73 sq M.predicted among blacks MDRD (S/P/Bld) [Vol rate/Area] mL/min/{1.73_m2} >60 mL/min [facility] Work Phone: [phone] Glucose [Mass/Vol] 97 mg/dL 70 - 100 mg/dL [facility] Work Phone: [phone] Potassium [Moles/Vol] 3.9 mmol/L 3.5 - 5.1 mmol/L [facility] Work Phone: 1 Protein [Mass/Vol] 8.1 g/dL 6.3 - 8.2 g/dL [facility] Work Phone: Sodium [Moles/Vol] 138 mmol/L 135 - 145 mmol/L [facility] Work Phone: Urea nitrogen [Mass/Vol] 11 mg/dL 7 - 20 mg/dL [facility] Work Phone: FerritinOrdered By: Aiden riddle on 07-17-2019 Ferritin [Mass/Vol] 5 ng/mL Low 8 - 252 ng/mL [facility] Work Phone: Interpretation and review of laboratory results Abnormal [facility] Work Phone: Test Performed by [address] [address] [facility] Work Phone: Hemogram (CBC)Ordered By: Rigoberto Ghotra on 07-17-2019 Erythrocyte distribution width (RBC) [Ratio] 14.1 % 11.5 - 14.5 % [facility] Work Phone: Hematocrit (Bld) [Volume fraction] 32.2 % Low 35 - 47 % [facility] Work Phone: Hemoglobin (Bld) [Mass/Vol] 10.5 g/dL Low 11.7 - 16 g/dL [facility] Work Phone: Interpretation and review of laboratory results Abnormal [facility] Work Phone: MCH (RBC) [Entitic mass] 26.9 pg 26 - 34 pg [facility] Work Phone: MCHC 32.6 % 32 - 36 % [facility] Work Phone: MCV (RBC) [Entitic vol] 82.5 fL 79 - 98 fL [facility] Work Phone: Platelet mean volume (Bld) [Entitic vol] 7.8 fL 7.4 - 10.4 fL [facility] Work Phone: Platelets (Bld) [#/Vol] 312 10*3/uL 140 - 440 10*3/uL [facility] Work Phone: RBC (Bld) [#/Vol] 3.90 10*6/uL 3.8 - 5.2 10*6/uL [facility] Work Phone: WBC (Bld) [#/Vol] 7.8 10*3/uL 3.6 - 10.7 10*3/uL [facility] Work Phone: Test Performed by [facility] [employer] [address] [address] [place] [address] [facility] Work Phone: LipaseOrdered By: Aiden cruz on 07-17-2019 Lipase [Catalytic activity/Vol] 358 U/L High 23 - 300 U/L [facility] Work Phone: No Panel InformationOrdered By: Aiden Ghotra on 07-17-2019 Interpretation and review of laboratory results Abnormal [facility] Work Phone: Test Performed by [address] [address] [place] [address] [facility] Work Phone: US RETROPERITONEAL LIMITEDOr dered By: Eliel Sepulveda on 07-17-2019 Patient Name: SOCORRO ORELLANA ---Ultrasound--- Exam Date/Time 07/17/2019 11:22:33 EST Exam US Retroperitoneal Limited Ordering Physician ZEESHAN SEPULVEDA ANDREA Accession Number [id number] CPT4 Codes 68805 () Reason For Exam right hydronephrosis Report Indication: Right hydronephrosis. FINDINGS: The right kidney is 10.1 x 4.8 x 4.5 cm and left kidney 10.7 x 3.4 x 4.7 cm. No hydronephrosis mass or calculus. Urinary bladder nondistended, not completely evaluated. IMPRESSION: No acute renal process seen. Report Dictated on --- Final --- Dictated: 07/17/2019 11:59 am Dictating Physician: MD SIBLEY JOHN Signed Date and Time: 07/17/2019 12:00 pm Signed by: MD SIBLEY JOHN Transcribed Date and Time: 07/17/2019 11:59 [facility] Work Phone: [place] Incoming Radiology Results From [facility] - 07/17/2019 12:02 PM EST Patient Name: SOCORRO GONSALES ---Ultrasound--- Exam Date/Time 07/17/2019 11:22:33 EST Exam US Retroperitoneal Limited Ordering Physician ZEESHAN SEPULVEDA ANDREA Accession Number [id number] CPT4 Codes 59846 () Reason For Exam right hydronephrosis Report Indication: Right hydronephrosis. FINDINGS: The right kidney is 10.1 x 4.8 x 4.5 cm and left kidney 10.7 x 3.4 x 4.7 cm. No hydronephrosis mass or calculus. Urinary bladder nondistended, not completely evaluated. IMPRESSION: No acute renal process seen. Report Dictated on --- Final --- Dictated: 07/17/2019 11:59 am Dictating Physician: MD SIBLEY JOHN Signed Date and Time: 07/17/2019 12:00 pm Signed by: MD SIBLEY JOHN Transcribed Date and Time: 07/17/2019 11:59 [facility] Work Phone: UrinalysisOrdered By: Aiden moe on 07-17-2019 Appearance (U) Clear Clear NA [facility] Work Phone: Bilirubin Urine Negative Negative mg/dL [facility] Work Phone: Comment on above: Reference Range: Neg ative Color (U) Colorless Lt. Yellow NA [facility] Work Phone: Glucose, Ur Normal Normal (<70) mg/dL [facility] Work Phone: Ketones Ql (U) Negative Negative mg/dL [facility] Work Phone: Comment on above: Reference Range: Neg ative LEUKOCYTES, UA Negative Negative Reyes/uL [facility] Work Phone: Comment on above: Reference Range: Neg ative Nitrite, Urine Negative Negative NA [facility] Work Phone: Comment on above: Reference Range: Neg ative Occult Blood,Urine Negative Negative mg/dL [facility] Work Phone: [phone] Comment on above: Reference Range: Neg ative pH (U) 5.5 [pH] [facility] Work Phone: [phone] Specific [place], Urine >1.030 [facility] Work Phone: [phone] Total Protein, Urine Negative Negative mg/dL [facility] Work Phone: [phone] Comment on above: Reference Range: Neg ative Urobilinogen, Urine Normal Normal ( 0-1) mg/dL [facility] Work Phone: [phone] Test Performed by [facility], [place] [address] [facility] Work Phone: [phone] Urine Drug ScreenOrdered By: Aiden Ghotra on 07-17-2019 Amphetamines, urine Negative [facility] Work Phone: Barbiturates, Ur Negative [facility] Work Phone: [phone] Benzodiazepine Ur Qual Negative [facility] Work Phone: [phone] Cocaine Metabolites, Ur Negative [facility] Work Phone: [phone] Methadone, Urine Negative [facility] Work Phone: [phone] Opiates, Urine Positive [facility] Work Phone: [phone] Oxycodone Screen, Ur Negative [facility] Work Phone: [phone] PCP, Urine Negative [facility] Work Phone: [phone] Comment on above: The expected value f or all of the drugs listed above is Negative. The following drugs or drug groups have been screened for by Immunoassay at the following thresholds: Amphetamine class (1000 ng/mL), Barbiturates (200 ng/mL), Benzodiazepines (200 ng/mL), Cocaine (300 ng/mL), Methadone (300 ng/mL), Opiates (300 ng/mL), Oxycodone (100 ng/mL), and PCP (25 ng/mL). NOTE: These results are for medical treatment only. Analysis performed using non-forensic procedures. POSITIVE results are NOT confirmed by a more specific alternative method unless requested. If confirmation is needed, request confirmation under separate order. Test Performed by [facility], [place] [address] [facility] Work Phone: Basic Metabolic Panelon 05-09 Anion gap [Moles/Vol] 15 mmol/L [place] Calcium [Mass/Vol] 10.0 mg/dL 8.4 - 10. 4 mg/dL [place] Chloride [Moles/Vol] 103 mmol/L 98 - 10 7 mmol/L [place] CO2 [Moles/Vol] 25 mmol/L 22 - 30 mmol/L [place] Creatinine [Mass/Vol] 0.72 mg/dL 0.52 - 1.25 mg/dL [place] EGFR IF NonAfrican Japanese >60.0 >60 mL/min [place], [place] Comment on above: Source- MDRD equatio n with creatinine calibration to IDMS(NKDEP) eGFR not recommended for drug dose adjustment GFR/1.73 sq M predicted among blacks MDRD (S/P/Bld) [Vol rate/Area] mL/min/{1.73_m2} >60 mL/min [place] Glucose [Mass/Vol] 82 mg/dL 70 - 100 mg/dL [place] Potassium [Moles/Vol] 4.2 mmol/L 3.5 - 5.1 mmol/L [place] Sodium [Moles/Vol] 142 mmol/L 135 - 145 mmol/L [place] Urea nitrogen [Mass/Vol] 17 mg/dL 7 - 20 mg/dL [place] Hemogram (CBC) w/Auto Diffon 05-25-2019 Absolute Baso # 0.1 10*3/uL 0 - 0.2 10*3/uL [place] Absolute Neut # 6.5 10*3/uL 1.8 - 7 10*3/uL [place] Basophils/100 WBC (Bld) 0.6 % 0 - 2 % [place] Eosinophils (Bld) [#/Vol] 0.3 10*3/uL 0 - 0.5 10*3/uL [place] Eosinophils/100 WBC (Bld) 3.0 % 1 - 6 % [place] Erythrocyte distribution width (RBC) [Ratio] 14.4 % 11.5 - 14.5 % [place] Granulocytes/100 WBC (Bld) 70.5 % 40 - 80 % [place] Hematocrit (Bld) [Volume fraction] 34.4 % Low 35 - 47 % [place] Hemoglobin (Bld) [Mass/Vol] 11.6 g/dL Low 11.7 - 16 g/dL [place] Interpretation and review of laboratory results Abnormal [place] Lymphocytes (Bld) [#/Vol] 1.9 10*3/uL 1 - 4.3 10*3/uL [place] Lymphocytes/100 WBC (Bld) 20.4 % 20 - 40 % [place] MCH (RBC) [Entitic mass] 28.5 pg 26 - 34 pg [place] MCHC (RBC) [Mass/Vol] 33.8 % 32 - 36 % [place] MCV (RBC) [Entitic vol] 84.2 fL 79 - 98 fL [place] Monocytes (Bld) [#/Vol] 0.5 10*3/uL 0 - 0.8 10*3/uL [place] Monocytes/100 WBC (Bld) 5.5 % 2 - 10 % [place] Platelet mean volume (Bld) [Entitic vol] 6.7 fL Low 7.4 - 10.4 fL [place] Platelets (Bld) [#/Vol] 679 10*3/uL High 140 - 440 10*3/uL [place] RBC (Bld) [#/Vol] 4.08 10*6/uL 3.8 - 5.2 10*6/uL [place] WBC (Bld) [#/Vol] 9.3 10*3/uL 3.6 - 10.7 10*3/uL [place] Test Performed by [facility] , [address] Lipaseon 05-25-2019 Interpretation and review of laboratory results Abnormal [place], [place] Lipase [Catalytic activity/Vol] 464 U/L High 23 - 300 U/L [place] Otheron 05-25-2019 Test Performed by [facility], [address] , [address] Urinalysison 05-25-2019 Appearance (U) Turbid [place], [place] Comment on above: Reference Range: [place] Bilirubin Urine Negative mg/dL [place] Comment on above: Reference Range: Neg ative Color (U) YELLOW [place], [place] Comment on above: Reference Range: Lt. Yellow Glucose, Ur Normal mg/dL [place] Comment on above: Reference Range: Nor mal (<70) Ketones Ql (U) 10 mg/dL [place], [place] Comment on above: Reference Range: Neg ative LEUKOCYTES, UA Negative Reyes/uL [place] Comment on above: Reference Range: Neg ative Nitrite, Urine Negative [place], [place] Comment on above: Reference Range: Neg ative Occult Blood,Urine Negative mg/dL [place] Comment on above: Reference Range: Neg ative pH (U) 5.5 [pH] [place] Protein (U) [Mass/Vol] 30 mg/dL [place] Comment on above: Reference Range: Neg ative Specific [place], Urine 1.027 [place] Urobilinogen, Urine Normal mg/dL [place], [place] Comment on above: Reference Range: Nor mal (0-1) Test Performed by [facility], [address] , [address] Basic Metabolic Panel w/ Ref will to MGon 05-22-2019 Anion gap [Moles/Vol] 9 mmol/L [place] Calcium [Mass/Vol] 9.4 mg/dL 8.4 - 10. 4 mg/dL [place] Chloride [Moles/Vol] 100 mmol/L 98 - 10 7 mmol/L [place] CO2 [Moles/Vol] 28 mmol/L 22 - 30 mmol/L [place] Creatinine [Mass/Vol] 0.55 mg/dL 0.52 - 1.25 mg/dL [place], [place] EGFR IF NonAfrican Japanese >60.0 >60 mL/min [place], [place] Comment on above: Source- MDRD equatio n with creatinine calibration to IDMS(NKDEP) eGFR not recommended for drug dose adjustment GFR/1.73 sq M predicted among blacks MDRD (S/P/Bld) [Vol rate/Area] mL/min/{1.73_m2} >60 mL/min [place] Glucose [Mass/Vol] 81 mg/dL 70 - 100 mg/dL [place] Potassium [Moles/Vol] 4.0 mmol/L 3.5 - 5.1 mmol/L [place] Sodium [Moles/Vol] 137 mmol/L 135 - 145 mmol/L [place], [place] Urea nitrogen [Mass/Vol] 7 mg/dL 7 - 20 mg/dL [place] Test Performed by [facility], [address] [place] [id number] [place], [place] CBC auto differentialon 05-09 Absolute Baso # 0.0 10*3/uL 0 - 0.2 10*3/uL [place], [place] Absolute Neut # 2.3 10*3/uL 1.8 - 7 10*3/uL [place], [place] Basophils/100 WBC (Bld) 0.3 % 0 - 2 % [place] Eosinophils (Bld) [#/Vol] 0.4 10*3/uL 0 - 0.5 10*3/uL [place] Eosinophils/100 WBC (Bld) 7.5 % High 1 - 6 % [place] Erythrocyte distribution width (RBC) [Ratio] 14.4 % 11.5 - 14.5 % [place] Granulocytes/100 WBC (Bld) 47.0 % 40 - 80 % [place] Hematocrit (Bld) [Volume fraction] 27.9 % Low 35 - 47 % [place] Hemoglobin (Bld) [Mass/Vol] 9.5 g/dL Low 11.7 - 16 g/dL [place] Interpretation and review of laboratory results Abnormal [place] Lymphocytes (Bld) [#/Vol] 1.9 10*3/uL 1 - 4.3 10*3/uL [place] Lymphocytes/100 WBC (Bld) 38.8 % 20 - 40 % [place] MCH (RBC) [Entitic mass] 29.3 pg 26 - 34 pg [place] MCHC (RBC) [Mass/Vol] 34.1 % 32 - 36 % [place] MCV (RBC) [Entitic vol] 86.0 fL 79 - 98 fL [place], [place] Monocytes (Bld) [#/Vol] 0.3 10*3/uL 0 - 0.8 10*3/uL [place], [place] Monocytes/100 WBC (Bld) 6.4 % 2 - 10 % [place] Platelet mean volume (Bld) [Entitic vol] 7.4 fL 7.4 - 10.4 fL [place] Platelets (Bld) [#/Vol] 334 10*3/uL 140 - 440 10*3/uL [place] RBC (Bld) [#/Vol] 3.25 10*6/uL Low 3.8 - 5.2 10*6/uL [place] WBC (Bld) [#/Vol] 5.0 10*3/uL 3.6 - 10.7 10*3/uL [place] Test Performed by [facility], [address] [place] [id number] [place] [address] Basic Metabolic Panel w/ Ref will to MGon 05-21-2019 Anion gap [Moles/Vol] 8 mmol/L [place] Calcium [Mass/Vol] 9.1 mg/dL 8.4 - 10. 4 mg/dL [place] Chloride [Moles/Vol] 102 mmol/L 98 - 10 7 mmol/L [place] CO2 [Moles/Vol] 29 mmol/L 22 - 30 mmol/L [place] Creatinine [Mass/Vol] 0.55 mg/dL 0.52 - 1.25 mg/dL [place], [place] EGFR IF NonAfrican Japanese >60.0 >60 mL/min [place], [place] Comment on above: Source- MDRD equatio n with creatinine calibration to IDMS(NKDEP) eGFR not recommended for drug dose adjustment GFR/1.73 sq M predicted among blacks MDRD (S/P/Bld) [Vol rate/Area] mL/min/{1.73_m2} >60 mL/min [place], [place] Glucose [Mass/Vol] 83 mg/dL 70 - 100 mg/dL [place] Interpretation and review of laboratory results Abnormal [place] Potassium [Moles/Vol] 3.8 mmol/L 3.5 - 5.1 mmol/L [place] Sodium [Moles/Vol] 138 mmol/L 135 - 145 mmol/L [place], [place] Urea nitrogen [Mass/Vol] 3 mg/dL Low 7 - 20 mg/dL [place] Test Performed by [facility], [address] [place] [id number] [place], [place] CBC auto differentialon 05-09 Absolute Baso # 0.0 10*3/uL 0 - 0.2 10*3/uL [place], [place] Absolute Neut # 2.1 10*3/uL 1.8 - 7 10*3/uL [place] Basophils/100 WBC (Bld) 0.5 % 0 - 2 % [place] Eosinophils (Bld) [#/Vol] 0.3 10*3/uL 0 - 0.5 10*3/uL [place] Eosinophils/100 WBC (Bld) 6.9 % High 1 - 6 % [place] Erythrocyte distribution width (RBC) [Ratio] 14.4 % 11.5 - 14.5 % [place] Granulocytes/100 WBC (Bld) 45.6 % 40 - 80 % [place] Hematocrit (Bld) [Volume fraction] 27.3 % Low 35 - 47 % [place] Hemoglobin (Bld) [Mass/Vol] 9.2 g/dL Low 11.7 - 16 g/dL [place] Interpretation and review of laboratory results Abnormal [place] Lymphocytes (Bld) [#/Vol] 1.8 10*3/uL 1 - 4.3 10*3/uL [place] Lymphocytes/100 WBC (Bld) 39.5 % 20 - 40 % [place] MCH (RBC) [Entitic mass] 29.1 pg 26 - 34 pg [place] MCHC (RBC) [Mass/Vol] 33.6 % 32 - 36 % [place] MCV (RBC) [Entitic vol] 86.7 fL 79 - 98 fL [place], [place] Monocytes (Bld) [#/Vol] 0.3 10*3/uL 0 - 0.8 10*3/uL [place], [place] Monocytes/100 WBC (Bld) 7.5 % 2 - 10 % [place] Platelet mean volume (Bld) [Entitic vol] 7.6 fL 7.4 - 10.4 fL [place] Platelets (Bld) [#/Vol] 276 10*3/uL 140 - 440 10*3/uL [place] RBC (Bld) [#/Vol] 3.15 10*6/uL Low 3.8 - 5.2 10*6/uL [place] WBC (Bld) [#/Vol] 4.6 10*3/uL 3.6 - 10.7 10*3/uL [place] Test Performed by [facility], [address] [place] [id number] [place] Basic Metabolic Panel w/ Ref will to MGon 05-20-2019 Anion gap [Moles/Vol] 7 mmol/L [place] Calcium [Mass/Vol] 8.9 mg/dL 8.4 - 10. 4 mg/dL [place] Chloride [Moles/Vol] 104 mmol/L 98 - 10 7 mmol/L [place] CO2 [Moles/Vol] 26 mmol/L 22 - 30 mmol/L [place] Creatinine [Mass/Vol] 0.53 mg/dL 0.52 - 1.25 mg/dL [place], [place] EGFR IF NonAfrican Japanese >60.0 >60 mL/min [place], [place] Comment on above: Source- MDRD equatio n with creatinine calibration to IDMS(NKDEP) eGFR not recommended for drug dose adjustment GFR/1.73 sq M predicted among blacks MDRD (S/P/Bld) [Vol rate/Area] mL/min/{1.73_m2} >60 mL/min [place] Glucose [Mass/Vol] 86 mg/dL 70 - 100 mg/dL [place] Interpretation and review of laboratory results Abnormal [place], [place] Potassium [Moles/Vol] 3.8 mmol/L 3.5 - 5.1 mmol/L [place], [place] Sodium [Moles/Vol] 137 mmol/L 135 - 145 mmol/L [place], [place] Urea nitrogen [Mass/Vol] 4 mg/dL Low 7 - 20 mg/dL [place] Test Performed by [facility], [address] [place] [id number] [place] [address] CBC auto differentialon 05-09 Absolute Baso # 0.0 10*3/uL 0 - 0.2 10*3/uL [place], [place] Absolute Neut # 3.9 10*3/uL 1.8 - 7 10*3/uL [place], [place] Basophils/100 WBC (Bld) 0.4 % 0 - 2 % [place] Eosinophils (Bld) [#/Vol] 0.3 10*3/uL 0 - 0.5 10*3/uL [place] Eosinophils/100 WBC (Bld) 5.5 % 1 - 6 % [place] Erythrocyte distribution width (RBC) [Ratio] 14.6 % High 11.5 - 14.5 % [place] Granulocytes/100 WBC (Bld) 63.2 % 40 - 80 % [place] Hematocrit (Bld) [Volume fraction] 27.9 % Low 35 - 47 % [place] Hemoglobin (Bld) [Mass/Vol] 9.5 g/dL Low 11.7 - 16 g/dL [place] Interpretation and review of laboratory results Abnormal [place] Lymphocytes (Bld) [#/Vol] 1.5 10*3/uL 1 - 4.3 10*3/uL [place] Lymphocytes/100 WBC (Bld) 23.9 % 20 - 40 % [place] MCH (RBC) [Entitic mass] 29.4 pg 26 - 34 pg [place] MCHC (RBC) [Mass/Vol] 34.2 % 32 - 36 % [place] MCV (RBC) [Entitic vol] 86.1 fL 79 - 98 fL [place], [place] Monocytes (Bld) [#/Vol] 0.4 10*3/uL 0 - 0.8 10*3/uL [place], [place] Monocytes/100 WBC (Bld) 7.0 % 2 - 10 % [place] Platelet mean volume (Bld) [Entitic vol] 8.1 fL 7.4 - 10.4 fL [place] Platelets (Bld) [#/Vol] 239 10*3/uL 140 - 440 10*3/uL [place] RBC (Bld) [#/Vol] 3.23 10*6/uL Low 3.8 - 5.2 10*6/uL [place] WBC (Bld) [#/Vol] 6.2 10*3/uL 3.6 - 10.7 10*3/uL [place] Test Performed by [facility], [address] [place] [id number] [place] Basic Metabolic Panel w/ Ref will to MGon 05-19-2019 Anion gap [Moles/Vol] 9 mmol/L [place] Calcium [Mass/Vol] 8.9 mg/dL 8.4 - 10. 4 mg/dL [place] Chloride [Moles/Vol] 103 mmol/L 98 - 10 7 mmol/L [place] CO2 [Moles/Vol] 26 mmol/L 22 - 30 mmol/L [place] Creatinine [Mass/Vol] 0.58 mg/dL 0.52 - 1.25 mg/dL [place] EGFR IF NonAfrican Japanese >60.0 >60 mL/min [place] Comment on above: Source- MDRD equatio n with creatinine calibration to IDMS(NKDEP) eGFR not recommended for drug dose adjustment GFR/1.73 sq M predicted among blacks MDRD (S/P/Bld) [Vol rate/Area] mL/min/{1.73_m2} >60 mL/min [place] Glucose [Mass/Vol] 85 mg/dL 70 - 100 mg/dL [place] Interpretation and review of laboratory results Abnormal [place] Potassium [Moles/Vol] 3.6 mmol/L 3.5 - 5.1 mmol/L [place] Sodium [Moles/Vol] 138 mmol/L 135 - 145 mmol/L [place], [place] Urea nitrogen [Mass/Vol] 5 mg/dL Low 7 - 20 mg/dL [place] Test Performed by [facility], [address] [place] [id number] [place] [address] CBC auto differentialon 05-09 Absolute Baso # 0.0 10*3/uL 0 - 0.2 10*3/uL [place] Absolute Neut # 4.7 10*3/uL 1.8 - 7 10*3/uL [place], [place] Basophils/100 WBC (Bld) 0.4 % 0 - 2 % [place] Eosinophils (Bld) [#/Vol] 0.2 10*3/uL 0 - 0.5 10*3/uL [place] Eosinophils/100 WBC (Bld) 3.5 % 1 - 6 % [place] Erythrocyte distribution width (RBC) [Ratio] 14.9 % High 11.5 - 14.5 % [place] Granulocytes/100 WBC (Bld) 65.0 % 40 - 80 % [place] Hematocrit (Bld) [Volume fraction] 32.0 % Low 35 - 47 % [place] Hemoglobin (Bld) [Mass/Vol] 10.8 g/dL Low 11.7 - 16 g/dL [place], [place] Interpretation and review of laboratory results Abnormal [place] Lymphocytes (Bld) [#/Vol] 1.9 10*3/uL 1 - 4.3 10*3/uL [place] Lymphocytes/100 WBC (Bld) 25.9 % 20 - 40 % [place] MCH (RBC) [Entitic mass] 29.2 pg 26 - 34 pg [place] MCHC (RBC) [Mass/Vol] 33.6 % 32 - 36 % [place] MCV (RBC) [Entitic vol] 86.9 fL 79 - 98 fL [place], [place] Monocytes (Bld) [#/Vol] 0.4 10*3/uL 0 - 0.8 10*3/uL [place], [place] Monocytes/100 WBC (Bld) 5.2 % 2 - 10 % [place] Platelet mean volume (Bld) [Entitic vol] 8.2 fL 7.4 - 10.4 fL [place] Platelets (Bld) [#/Vol] 218 10*3/uL 140 - 440 10*3/uL [place] RBC (Bld) [#/Vol] 3.68 10*6/uL Low 3.8 - 5.2 10*6/uL [place] WBC (Bld) [#/Vol] 7.2 10*3/uL 3.6 - 10.7 10*3/uL [place] Test Performed by [facility], [address] [place] [id number] [place] [address] Basic Metabolic Panel w/ Ref will to MGon 05-18-2019 Anion gap [Moles/Vol] 10 mmol/L [place] Calcium [Mass/Vol] 8.6 mg/dL 8.4 - 10. 4 mg/dL [place] Chloride [Moles/Vol] 105 mmol/L 98 - 10 7 mmol/L [place] CO2 [Moles/Vol] 24 mmol/L 22 - 30 mmol/L [place] Creatinine [Mass/Vol] 0.66 mg/dL 0.52 - 1.25 mg/dL [place] EGFR IF NonAfrican Japanese >60.0 >60 mL/min [place] Comment on above: Source- MDRD equatio n with creatinine calibration to IDMS(NKDEP) eGFR not recommended for drug dose adjustment GFR/1.73 sq M predicted among blacks MDRD (S/P/Bld) [Vol rate/Area] mL/min/{1.73_m2} >60 mL/min [place] Glucose [Mass/Vol] 93 mg/dL 70 - 100 mg/dL [place] Interpretation and review of laboratory results Abnormal [place] Potassium [Moles/Vol] 4.0 mmol/L 3.5 - 5.1 mmol/L [place] Sodium [Moles/Vol] 139 mmol/L 135 - 145 mmol/L [place] Urea nitrogen [Mass/Vol] 6 mg/dL Low 7 - 20 mg/dL [place] Test Performed by [facility], [address] [place] [id number] [place] CBC auto differentialon 05-09 Absolute Baso # 0.0 10*3/uL 0 - 0.2 10*3/uL [place] Absolute Neut # 6.7 10*3/uL 1.8 - 7 10*3/uL [place] Basophils/100 WBC (Bld) 0.4 % 0 - 2 % [place] Eosinophils (Bld) [#/Vol] 0.0 10*3/uL 0 - 0.5 10*3/uL [place] Eosinophils/100 WBC (Bld) 0.4 % Low 1 - 6 % [place] Erythrocyte distribution width (RBC) [Ratio] 15.2 % High 11.5 - 14.5 % [place] Granulocytes/100 WBC (Bld) 80.4 % High 40 - 80 % [place] Hematocrit (Bld) [Volume fraction] 33.2 % Low 35 - 47 % [place] Hemoglobin (Bld) [Mass/Vol] 11.1 g/dL Low 11.7 - 16 g/dL [place] Interpretation and review of laboratory results Abnormal [place] Lymphocytes (Bld) [#/Vol] 1.0 10*3/uL 1 - 4.3 10*3/uL [place] Lymphocytes/100 WBC (Bld) 11.8 % Low 20 - 40 % [place] MCH (RBC) [Entitic mass] 29.2 pg 26 - 34 pg [place] MCHC (RBC) [Mass/Vol] 33.5 % 32 - 36 % [place] MCV (RBC) [Entitic vol] 87.3 fL 79 - 98 fL [place] Monocytes (Bld) [#/Vol] 0.6 10*3/uL 0 - 0.8 10*3/uL [place] Monocytes/100 WBC (Bld) 7.0 % 2 - 10 % [place] Platelet mean volume (Bld) [Entitic vol] 8.4 fL 7.4 - 10.4 fL [place] Platelets (Bld) [#/Vol] 210 10*3/uL 140 - 440 10*3/uL [place] RBC (Bld) [#/Vol] 3.81 10*6/uL 3.8 - 5.2 10*6/uL [place] WBC (Bld) [#/Vol] 8.3 10*3/uL 3.6 - 10.7 10*3/uL [place] Test Performed by [facility], [address] [place] [id number] [place] [address] [place] UGIon 05-18-2019 Patient Name: SOCORRO ORELLANA ---Fluoroscopy--- Exam Date/Time 05/18/2019 10:11:00 EDT Exam RF UGI w/o KUB & w/ or w/o Delay Flm Ordering Physician [id number] JEFFREY HERNANDEZ Accession Number [id number] CTP4 Codes 66675 () Reason For Exam s/p duodenotomy Report EXAMINATION: Gastrografin upper GI series REASON FOR STUDY: 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 COMPARISON: CT scan 05/12/2019 FLUOROSCOPY TIME: 1.01 minutes FLUOROSCOPIC EXPOSURES: 19 FINDINGS: Preliminary image demonstrates surgical clips adjacent to the duodenum from recent duodenotomy. There are surgical clips in the right upper quadrant from prior cholecystectomy. Gastrografin was administered by existing nasogastric tube per physician request. The esophagus is not evaluated on this examination. There is mucosal nodularity at the second portion of the duodenum. These findings possibly represent postoperative changes. There is no signs of extravasation or obstruction. The remainder of the duodenum and visualized jejunum appear unremarkable. . CONCLUSION: Mucosal nodularity at the second portion of the duodenum probably reflecting mucosal edema. Report Dictated on --- Final --- Dictated: 05/18/2019 11:45 am Dictating Physician: MD LO B NELSON Signed Date and Time: 05/18/2019 3:41 pm Signed by: MD LO B NELSON Transcribed Date and Time: 05/18/2019 11:52 [place] [facility], [facility] Incoming Radiology Results From [facility] - 05/18/2019 3:42 PM EDT Patient Name: SOCORRO GONSALES ---Fluoroscopy--- Exam Date/Time 05/18/2019 10:11:00 EDT Exam RF UGI w/o KUB & w/ or w/o Delay Flm Ordering Physician Ashley JEFFREY HERNANDEZ Accession Number [id number] CTP4 Codes 38745 () Reason For Exam s/p duodenotomy Report EXAMINATION: Gastrografin upper GI series REASON FOR STUDY: 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 COMPARISON: CT scan 05/12/2019 FLUOROSCOPY TIME: 1.01 minutes FLUOROSCOPIC EXPOSURES: 19 FINDINGS: Preliminary image demonstrates surgical clips adjacent to the duodenum from recent duodenotomy. There are surgical clips in the right upper quadrant from prior cholecystectomy. Gastrografin was administered by existing nasogastric tube per physician request. The esophagus is not evaluated on this examination. There is mucosal nodularity at the second portion of the duodenum. These findings possibly represent postoperative changes. There is no signs of extravasation or obstruction. The remainder of the duodenum and visualized jejunum appear unremarkable. . CONCLUSION: Mucosal nodularity at the second portion of the duodenum probably reflecting mucosal edema. Report Dictated on --- Final --- Dictated: 05/18/2019 11:45 am Dictating Physician: MD LO B NELSON Signed Date and Time: 05/18/2019 3:41 pm Signed by: MD LO B NELSON Transcribed Date and Time: 05/18/2019 11:52 [place], [place] Basic Metabolic Panel w/ Ref will to MGon 05-17-2019 Anion gap [Moles/Vol] 6 mmol/L [place] Calcium [Mass/Vol] 8.3 mg/dL Low 8.4 - 10. 4 mg/dL [place] Chloride [Moles/Vol] 108 mmol/L High 98 - 10 7 mmol/L [place] CO2 [Moles/Vol] 26 mmol/L 22 - 30 mmol/L [place] Creatinine [Mass/Vol] 0.6 mg/dL 0.52 - 1.25 mg/dL [place] EGFR IF NonAfrican Japanese >60.0 >60 mL/min [place], [place] Comment on above: Source- MDRD equatio n with creatinine calibration to IDMS(NKDEP) eGFR not recommended for drug dose adjustment GFR/1.73 sq M predicted among blacks MDRD (S/P/Bld) [Vol rate/Area] mL/min/{1.73_m2} >60 mL/min [place], [place] Glucose [Mass/Vol] 127 mg/dL High 70 - 100 mg/dL [place] Interpretation and review of laboratory results Abnormal [place] Potassium [Moles/Vol] 4.2 mmol/L 3.5 - 5.1 mmol/L [place] Sodium [Moles/Vol] 140 mmol/L 135 - 145 mmol/L [place] Urea nitrogen [Mass/Vol] 3 mg/dL Low 7 - 20 mg/dL [place] Test Performed by [facility], [address] [place] [id number] [place], [place] CBC auto differentialon Absolute Baso # 0.0 10*3/uL 0 - 0.2 10*3/uL [place], [place] Absolute Neut # 7.9 10*3/uL High 1.8 - 7 10*3/uL [place], [place] Basophils/100 WBC (Bld) 0.1 % 0 - 2 % [place] Eosinophils (Bld) [#/Vol] 0.0 10*3/uL 0 - 0.5 10*3/uL [place] Eosinophils/100 WBC (Bld) 0.0 % Low 1 - 6 % [place] Erythrocyte distribution width (RBC) [Ratio] 14.6 % High 11.5 - 14.5 % [place] Granulocytes/100 WBC (Bld) 87.1 % High 40 - 80 % [place] Hematocrit (Bld) [Volume fraction] 29.4 % Low 35 - 47 % [place] Hemoglobin (Bld) [Mass/Vol] 9.9 g/dL Low 11.7 - 16 g/dL [place] Interpretation and review of laboratory results Abnormal [place] Lymphocytes (Bld) [#/Vol] 0.6 10*3/uL Low 1 - 4.3 10*3/uL [place] Lymphocytes/100 WBC (Bld) 6.2 % Low 20 - 40 % [place] MCH (RBC) [Entitic mass] 29.1 pg 26 - 34 pg [place] MCHC (RBC) [Mass/Vol] 33.8 % 32 - 36 % [place] MCV (RBC) [Entitic vol] 86.1 fL 79 - 98 fL [place], [place] Monocytes (Bld) [#/Vol] 0.6 10*3/uL 0 - 0.8 10*3/uL [place] Monocytes/100 WBC (Bld) 6.6 % 2 - 10 % [place] Platelet mean volume (Bld) [Entitic vol] 8.5 fL 7.4 - 10.4 fL [place] Platelets (Bld) [#/Vol] 208 10*3/uL 140 - 440 10*3/uL [place] RBC (Bld) [#/Vol] 3.42 10*6/uL Low 3.8 - 5.2 10*6/uL [place] WBC (Bld) [#/Vol] 9.1 10*3/uL 3.6 - 10.7 10*3/uL [place] Test Performed by [facility], [address] [place] [id number] [place] Basic Metabolic Panel w/ Ref will to MGon 05-16-2019 Anion gap [Moles/Vol] 7 mmol/L [place] Calcium [Mass/Vol] 9.2 mg/dL 8.4 - 10. 4 mg/dL [place] Chloride [Moles/Vol] 108 mmol/L High 98 - 10 7 mmol/L [place] CO2 [Moles/Vol] 25 mmol/L 22 - 30 mmol/L [place] Creatinine [Mass/Vol] 0.61 mg/dL 0.52 - 1.25 mg/dL [place], [place] EGFR IF NonAfrican Japanese >60.0 >60 mL/min [place], [place] Comment on above: Source- MDRD equatio n with creatinine calibration to IDMS(NKDEP) eGFR not recommended for drug dose adjustment GFR/1.73 sq M predicted among blacks MDRD (S/P/Bld) [Vol rate/Area] mL/min/{1.73_m2} >60 mL/min [place] Glucose [Mass/Vol] 157 mg/dL High 70 - 100 mg/dL [place] Interpretation and review of laboratory results Abnormal [place] Potassium [Moles/Vol] 4.0 mmol/L 3.5 - 5.1 mmol/L [place] Sodium [Moles/Vol] 140 mmol/L 135 - 145 mmol/L [place] Urea nitrogen [Mass/Vol] 4 mg/dL Low 7 - 20 mg/dL [place] Test Performed by [facility], [address] [place] [address], [place] [address] [place], [place] CBC auto differentialon 10-0 Absolute Baso # 0.0 10*3/uL 0 - 0.2 10*3/uL [place], [place] Absolute Neut # 3.4 10*3/uL 1.8 - 7 10*3/uL [place] Basophils/100 WBC (Bld) 0.2 % 0 - 2 % [place] Eosinophils (Bld) [#/Vol] 0.0 10*3/uL 0 - 0.5 10*3/uL [place] Eosinophils/100 WBC (Bld) 0.1 % Low 1 - 6 % [place] Erythrocyte distribution width (RBC) [Ratio] 13.8 % 11.5 - 14.5 % [place] Granulocytes/100 WBC (Bld) 74.2 % 40 - 80 % [place] Hematocrit (Bld) [Volume fraction] 29.8 % Low 35 - 47 % [place] Hemoglobin (Bld) [Mass/Vol] 10.1 g/dL Low 11.7 - 16 g/dL [place], [place] Interpretation and review of laboratory results Abnormal [place] Lymphocytes (Bld) [#/Vol] 0.8 10*3/uL Low 1 - 4.3 10*3/uL [place] Lymphocytes/100 WBC (Bld) 16.9 % Low 20 - 40 % [place] MCH (RBC) [Entitic mass] 29.0 pg 26 - 34 pg [place] MCHC (RBC) [Mass/Vol] 34.1 % 32 - 36 % [place] MCV (RBC) [Entitic vol] 85.0 fL 79 - 98 fL [place], [place] Monocytes (Bld) [#/Vol] 0.4 10*3/uL 0 - 0.8 10*3/uL [place], [place] Monocytes/100 WBC (Bld) 8.6 % 2 - 10 % [place] Platelet mean volume (Bld) [Entitic vol] 8.4 fL 7.4 - 10.4 fL [place] Platelets (Bld) [#/Vol] 201 10*3/uL 140 - 440 10*3/uL [place] RBC (Bld) [#/Vol] 3.50 10*6/uL Low 3.8 - 5.2 10*6/uL [place] WBC (Bld) [#/Vol] 4.6 10*3/uL 3.6 - 10.7 10*3/uL [place] Test Performed by [facility], [address] [place] [id number] [place] [address] , Urineon 9 Beta HCG ( test) Ql (U) Negative Negative NA [place], [place] Comment on above: is the mos t common reason for HCG in urine, although choriocarcinoma, hydatidiform mole, and certain nontropho- blastic malignancies also result in detectable urinary HCG levels. Sensitivity = 20mIU/mL. Test Performed by [facility], [address] [place] [id number] [place] [address] TYPE AND SCREENon 05-16-2019 Sodium [Moles/Vol] A [place], [place] Sodium [Moles/Vol] Negative [place], [place] Comment on above: Test Performed by [facility], [address] [place] [id number] Sodium [Moles/Vol] Positive [place], [place] Comment on above: Test Performed by [facility], [address] [place] [id number] Test Performed by [id number] [place] [address] Basic Metabolic Panel w/ Ref will to MGon 05-15-2019 Anion gap [Moles/Vol] 7 mmol/L [place] Calcium [Mass/Vol] 8.7 mg/dL 8.4 - 10. 4 mg/dL [place] Chloride [Moles/Vol] 109 mmol/L High 98 - 10 7 mmol/L [place] CO2 [Moles/Vol] 23 mmol/L 22 - 30 mmol/L [place] Creatinine [Mass/Vol] 0.65 mg/dL 0.52 - 1.25 mg/dL [place], [place] EGFR IF NonAfrican Japanese >60.0 >60 mL/min [place], [place] Comment on above: Source- MDRD equatio n with creatinine calibration to IDMS(NKDEP) eGFR not recommended for drug dose adjustment GFR/1.73 sq M predicted among blacks MDRD (S/P/Bld) [Vol rate/Area] mL/min/{1.73_m2} >60 mL/min [place] Glucose [Mass/Vol] 72 mg/dL 70 - 100 mg/dL [place] Interpretation and review of laboratory results Abnormal [place] Potassium [Moles/Vol] 3.8 mmol/L 3.5 - 5.1 mmol/L [place] Sodium [Moles/Vol] 139 mmol/L 135 - 145 mmol/L [place], [place] Urea nitrogen [Mass/Vol] 9 mg/dL 7 - 20 mg/dL [place] Test Performed by [facility], [address] [place] [id number] [place] [address] CBC auto differentialon 10-0 Absolute Baso # 0.0 10*3/uL 0 - 0.2 10*3/uL [place] Absolute Neut # 1.9 10*3/uL 1.8 - 7 10*3/uL [place] Basophils/100 WBC (Bld) 0.6 % 0 - 2 % [place] Eosinophils (Bld) [#/Vol] 0.1 10*3/uL 0 - 0.5 10*3/uL [place] Eosinophils/100 WBC (Bld) 2.8 % 1 - 6 % [place] Erythrocyte distribution width (RBC) [Ratio] 14.4 % 11.5 - 14.5 % [place] Granulocytes/100 WBC (Bld) 40.8 % 40 - 80 % [place] Hematocrit (Bld) [Volume fraction] 29.1 % Low 35 - 47 % [place] Hemoglobin (Bld) [Mass/Vol] 9.9 g/dL Low 11.7 - 16 g/dL [place], [place] Interpretation and review of laboratory results Abnormal [place] Lymphocytes (Bld) [#/Vol] 2.3 10*3/uL 1 - 4.3 10*3/uL [place] Lymphocytes/100 WBC (Bld) 49.1 % High 20 - 40 % [place] MCH (RBC) [Entitic mass] 29.2 pg 26 - 34 pg [place] MCHC (RBC) [Mass/Vol] 34.2 % 32 - 36 % [place] MCV (RBC) [Entitic vol] 85.6 fL 79 - 98 fL [place], [place] Monocytes (Bld) [#/Vol] 0.3 10*3/uL 0 - 0.8 10*3/uL [place] Monocytes/100 WBC (Bld) 6.7 % 2 - 10 % [place] Platelet mean volume (Bld) [Entitic vol] 8.3 fL 7.4 - 10.4 fL [place] Platelets (Bld) [#/Vol] 201 10*3/uL 140 - 440 10*3/uL [place] RBC (Bld) [#/Vol] 3.40 10*6/uL Low 3.8 - 5.2 10*6/uL [place] WBC (Bld) [#/Vol] 4.7 10*3/uL 3.6 - 10.7 10*3/uL [place] Test Performed by [facility], [address] [place] [id number] [place] Protime-INRon 05-15-2019 INR Coag (PPP) [Relative time] 1.2 {INR} High [place], [place] Comment on above: Recommended Anticoag ulant Therapy: SEE BELOW ----- INR of 2.0 - 3.0 : - Prophylaxis of Venous Thrombosis (high-risk surgery) - Treatment of Venous Thrombosis - Treatment of Pulmonary Embolism (Includes tissue heart valves, Acute Myocardial Infarction to prevent systemic embolism, Valvular Heart Disease, and Atrial Fibrillation) ----- INR of 2.5 - 3.5 : - Mechanical Prosthetic Valves (high risk) - If oral anticoagulant therapy is used to prevent Myocardial Infarction Interpretation and review of laboratory results Abnormal [place], [place] PT Coag (PPP) [Time] 12 s 9 - 12 s [place] Comment on above: . Test Performed by [address] [address] [place] Basic Metabolic Panel w/ Ref will to MGon 05-14-2019 Anion gap [Moles/Vol] 7 mmol/L [place] Calcium [Mass/Vol] 8.9 mg/dL 8.4 - 10. 4 mg/dL [place] Chloride [Moles/Vol] 107 mmol/L 98 - 10 7 mmol/L [place] CO2 [Moles/Vol] 25 mmol/L 22 - 30 mmol/L [place] Creatinine [Mass/Vol] 0.62 mg/dL 0.52 - 1.25 mg/dL [place] EGFR IF NonAfrican Japanese >60.0 >60 mL/min [place], [place] Comment on above: Source- MDRD equatio n with creatinine calibration to IDIN(NKDEP) eGFR not recommended for drug dose adjustment GFR/1.73 sq M predicted among blacks MDRD (S/P/Bld) [Vol rate/Area] mL/min/{1.73_m2} >60 mL/min [place], [place] Glucose [Mass/Vol] 81 mg/dL 70 - 100 mg/dL [place] Potassium [Moles/Vol] 3.7 mmol/L 3.5 - 5.1 mmol/L [place] Sodium [Moles/Vol] 139 mmol/L 135 - 145 mmol/L [place], [place] Urea nitrogen [Mass/Vol] 9 mg/dL 7 - 20 mg/dL [place] Test Performed by [facility], [address] [place] [address] [place], [place] CBC auto differentialon 10-0 Absolute Baso # 0.0 10*3/uL 0 - 0.2 10*3/uL [place], [place] Absolute Neut # 1.8 10*3/uL 1.8 - 7 10*3/uL [place], [place] Basophils/100 WBC (Bld) 0.6 % 0 - 2 % [place] Eosinophils (Bld) [#/Vol] 0.2 10*3/uL 0 - 0.5 10*3/uL [place] Eosinophils/100 WBC (Bld) 3.6 % 1 - 6 % [place] Erythrocyte distribution width (RBC) [Ratio] 14.2 % 11.5 - 14.5 % [place] Granulocytes/100 WBC (Bld) 36.9 % Low 40 - 80 % [place] Hematocrit (Bld) [Volume fraction] 29.8 % Low 35 - 47 % [place] Hemoglobin (Bld) [Mass/Vol] 10.1 g/dL Low 11.7 - 16 g/dL [place], [place] Interpretation and review of laboratory results Abnormal [place] Lymphocytes (Bld) [#/Vol] 2.5 10*3/uL 1 - 4.3 10*3/uL [place] Lymphocytes/100 WBC (Bld) 52.5 % High 20 - 40 % [place] MCH (RBC) [Entitic mass] 29.1 pg 26 - 34 pg [place] MCHC (RBC) [Mass/Vol] 34.0 % 32 - 36 % [place] MCV (RBC) [Entitic vol] 85.5 fL 79 - 98 fL [place], [place] Monocytes (Bld) [#/Vol] 0.3 10*3/uL 0 - 0.8 10*3/uL [place], [place] Monocytes/100 WBC (Bld) 6.4 % 2 - 10 % [place] Platelet mean volume (Bld) [Entitic vol] 8.2 fL 7.4 - 10.4 fL [place] Platelets (Bld) [#/Vol] 225 10*3/uL 140 - 440 10*3/uL [place] RBC (Bld) [#/Vol] 3.48 10*6/uL Low 3.8 - 5.2 10*6/uL [place] WBC (Bld) [#/Vol] 4.8 10*3/uL 3.6 - 10.7 10*3/uL [facility] Test Performed by [id number] [place] [address] XR ABDOMEN (KUB) (SINGLE AP VIEW)on 05-14-2019 [facility], [facility] Incoming Radiology Results From [facility] - 05/14/2019 11:21 AM EDT Patient Name: SOCORRO GONSALES ---Diagnostic Radiology--- Exam Date/Time 05/14/2019 09:00:00 EDT Exam CR Abdomen AP Ordering Physician JEFFREY RODRIGUEZ Accession Number [id number] CPT4 Codes 58122 () Reason For Exam CONTRAST CHECK Report KUB CLINICAL INDICATION: Contrast check Supine image of the abdomen was obtained as a preliminary to an upper GI series. There is a large amount of retained colonic contrast from the patient's Gastrografin enema yesterday. This includes contrast in the transverse and splenic flexure which would interfere with an upper GI series. Upper GI is postponed. Osseous structures appear grossly normal. IMPRESSION: Large amount of retained colonic contrast from yesterday's Gastrografin enema Report Dictated on --- Final --- Dictated: 05/14/2019 11:19 am Dictating Physician: MD BARKER DIANE Signed Date and Time: 05/14/2019 11:20 am Signed by: MD BARKER DIANE Transcribed Date and Time: 05/14/2019 11:19 [place], [place] Patient Name: SOCORRO ORELLANA ---Diagnostic Radiology--- Exam Date/Time 05/14/2019 09:00:00 EDT Exam CR Abdomen AP Ordering Physician [id number] TONG Accession Number [id number] CPT4 Codes 41087 () Reason For Exam CONTRAST CHECK Report KUB CLINICAL INDICATION: Contrast check Supine image of the abdomen was obtained as a preliminary to an upper GI series. There is a large amount of retained colonic contrast from the patient's Gastrografin enema yesterday. This includes contrast in the transverse and splenic flexure which would interfere with an upper GI series. Upper GI is postponed. Osseous structures appear grossly normal. IMPRESSION: Large amount of retained colonic contrast from yesterday's Gastrografin enema Report Dictated on --- Final --- Dictated: 05/14/2019 11:19 am Dictating Physician: MD BARKER DIANE Signed Date and Time: 05/14/2019 11:20 am Signed by: MD BARKER DIANE Transcribed Date and Time: 05/14/2019 11:19 [place], [place] Basic Metabolic Panel w/ Ref will to MGon 05-13-2019 Anion gap [Moles/Vol] 9 mmol/L [place] Calcium [Mass/Vol] 9.4 mg/dL 8.4 - 10. 4 mg/dL [place] Chloride [Moles/Vol] 108 mmol/L High 98 - 10 7 mmol/L [place] CO2 [Moles/Vol] 25 mmol/L 22 - 30 mmol/L [place] Creatinine [Mass/Vol] 0.66 mg/dL 0.52 - 1.25 mg/dL [place] EGFR IF NonAfrican Japanese >60.0 >60 mL/min [place], [place] Comment on above: Source- MDRD equatio n with creatinine calibration to IDMS(NKDEP) eGFR not recommended for drug dose adjustment GFR/1.73 sq M predicted among blacks MDRD (S/P/Bld) [Vol rate/Area] mL/min/{1.73_m2} >60 mL/min [place], [place] Glucose [Mass/Vol] 110 mg/dL High 70 - 100 mg/dL [place] Interpretation and review of laboratory results Abnormal [place] Potassium [Moles/Vol] 3.2 mmol/L Low 3.5 - 5.1 mmol/L [place] Sodium [Moles/Vol] 141 mmol/L 135 - 145 mmol/L [place] Urea nitrogen [Mass/Vol] 9 mg/dL 7 - 20 mg/dL [place] Test Performed by [facility], [address] [place] [address] [place], [place] CBC auto differentialon 100 Absolute Baso # 0.1 10*3/uL 0 - 0.2 10*3/uL [place] Absolute Neut # 2.9 10*3/uL 1.8 - 7 10*3/uL [place] Basophils/100 WBC (Bld) 0.9 % 0 - 2 % [place] Eosinophils (Bld) [#/Vol] 0.2 10*3/uL 0 - 0.5 10*3/uL [place] Eosinophils/100 WBC (Bld) 2.4 % 1 - 6 % [place] Erythrocyte distribution width (RBC) [Ratio] 14.2 % 11.5 - 14.5 % [place] Granulocytes/100 WBC (Bld) 42.6 % 40 - 80 % [place] Hematocrit (Bld) [Volume fraction] 32.5 % Low 35 - 47 % [place] Hemoglobin (Bld) [Mass/Vol] 11.2 g/dL Low 11.7 - 16 g/dL [place], [place] Interpretation and review of laboratory results Abnormal [place] Lymphocytes (Bld) [#/Vol] 3.2 10*3/uL 1 - 4.3 10*3/uL [place] Lymphocytes/100 WBC (Bld) 48.1 % High 20 - 40 % [place] MCH (RBC) [Entitic mass] 29.1 pg 26 - 34 pg [place] MCHC (RBC) [Mass/Vol] 34.3 % 32 - 36 % [place] MCV (RBC) [Entitic vol] 84.9 fL 79 - 98 fL [place] Monocytes (Bld) [#/Vol] 0.4 10*3/uL 0 - 0.8 10*3/uL [place], [place] Monocytes/100 WBC (Bld) 6.0 % 2 - 10 % [place] Platelet mean volume (Bld) [Entitic vol] 8.2 fL 7.4 - 10.4 fL [place] Platelets (Bld) [#/Vol] 264 10*3/uL 140 - 440 10*3/uL [place] RBC (Bld) [#/Vol] 3.83 10*6/uL 3.8 - 5.2 10*6/uL [place] WBC (Bld) [#/Vol] 6.8 10*3/uL 3.6 - 10.7 10*3/uL [place] Test Performed by [facility], [address] [place] [id number] [place] [address] [place] WATER SOLUBLE ENEMA W OR WO DOUGBon 05-13-2019 [facility], [facility] Incoming Radiology Results From [facility] - 05/13/2019 1:24 PM EDT Patient Name: SOCORRO GONSALES ---Fluoroscopy--- Exam Date/Time 05/13/2019 12:43:13 EDT Exam RF Therapeutic Gastrografin Enema Ordering Physician [id number] MARTINEZ Accession Number [id number] CTP4 Codes 08606 (RF Therapeutic Gastrografin Enema) Reason For Exam diagnostic/therapeutic for chronic constipation Report Gastrografin enema CLINICAL INDICATION: Chronic constipation Fluoroscopic time: 0.3 minutes Sewer Cleaner image of the abdomen shows a moderate amount of fecal material predominantly within the ascending and proximal transverse colon. Patchy small bowel gas is present in nondilated bowel loops. Water-soluble contrast was instilled via rectal. Contrast shows normal caliber of the descending colon. Fecal content is encountered from mid transverse colon proximally. No annular or constricting masses are noted. Evaluation for polyps is limited due to the fecal content. There is a small amount of reflux into terminal ileum. Appendix is not visualized. Postevacuation imaging shows further reflux into terminal small bowel. There is retained contrast predominantly around the area of fecal content. Descending colon is decompressed. IMPRESSION: Retained fecal material is predominantly in the ascending colon and proximal transverse colon Report Dictated on --- Final --- Dictated: 05/13/2019 1:19 pm Dictating Physician: MD BARKER DIANE Signed Date and Time: 05/13/2019 1:22 pm Signed by: MD BARKER DIANE Transcribed Date and Time: 05/13/2019 1:19 [place] Patient Name: SOCORRO ORELLANA ---Fluoroscopy--- Exam Date/Time 05/13/2019 12:43:13 EDT Exam RF Therapeutic Gastrografin Enema Ordering Physician [id number] TONG Accession Number [id number] CTP4 Codes 16630 (RF Therapeutic Gastrografin Enema) Reason For Exam diagnostic/therapeutic for chronic constipation Report Gastrografin enema CLINICAL INDICATION: Chronic constipation Fluoroscopic time: 0.3 minutes Sewer Cleaner image of the abdomen shows a moderate amount of fecal material predominantly within the ascending and proximal transverse colon. Patchy small bowel gas is present in nondilated bowel loops. Water-soluble contrast was instilled via rectal. Contrast shows normal caliber of the descending colon. Fecal content is encountered from mid transverse colon proximally. No annular or constricting masses are noted. Evaluation for polyps is limited due to the fecal content. There is a small amount of reflux into terminal ileum. Appendix is not visualized. Postevacuation imaging shows further reflux into terminal small bowel. There is retained contrast predominantly around the area of fecal content. Descending colon is decompressed. IMPRESSION: Retained fecal material is predominantly in the ascending colon and proximal transverse colon Report Dictated on --- Final --- Dictated: 05/13/2019 1:19 pm Dictating Physician: MD BARKER DIANE Signed Date and Time: 05/13/2019 1:22 pm Signed by: MD BARKER DIANE Transcribed Date and Time: 05/13/2019 1:19 [place] Magnesiumon 05-13-2019 Magnesium [Mass/Vol] 2.0 mg/dL 1.6 - 2 .3 mg/dL [place] Test Performed by [facility], [address] [place] [id number] [place] US NON OB TRANSVAGINALon [facility], [facility] Incoming Radiology Results From [facility] - 05/13/2019 1:37 PM EDT Patient Name: SOCORRO GONSALES ---Ultrasound--- Exam Date/Time 05/13/2019 13:01:40 EDT Exam US Transvaginal Ordering Physician JEFFREY RODRIGUEZ Accession Number [id number] CPT4 Codes 24871 () Reason For Exam pelvic pain free fluid Report Transvaginal ultrasound pelvis CLINICAL INDICATION: Pelvic pain Transvaginal imaging of the pelvis was performed. The uterus is retroverted and measures 8.7 x 7.4 x 5.3 cm. No focal myometrial masses are identified. Endometrium is approximately 1.5 cm in thickness. No endometrial fluid is noted. Right and left ovaries measure 4.1 x 2.9 x 2.2 cm and 3.7 x 2.4 x 1.6 cm respectively. Dominant follicle is noted on the right ovary. Arterial Doppler waveforms were obtained from each ovary. Minimal free fluid is present in the cul-de-sac. IMPRESSION: Retroverted uterus Pelvic findings are physiologic for periovulatory phase Report Dictated on --- Final --- Dictated: 05/13/2019 1:33 pm Dictating Physician: MD BARKER DIANE Signed Date and Time: 05/13/2019 1:35 pm Signed by: MD BARKER DIANE Transcribed Date and Time: 05/13/2019 1:33 [place] Patient Name: SOCORRO ORELLANA ---Ultrasound--- Exam Date/Time 05/13/2019 13:01:40 EDT Exam US Transvaginal Ordering Physician JEFFREY RODRIGUEZ Accession Number [id number] CPT4 Codes 45034 () Reason For Exam pelvic pain free fluid Report Transvaginal ultrasound pelvis CLINICAL INDICATION: Pelvic pain Transvaginal imaging of the pelvis was performed. The uterus is retroverted and measures 8.7 x 7.4 x 5.3 cm. No focal myometrial masses are identified. Endometrium is approximately 1.5 cm in thickness. No endometrial fluid is noted. Right and left ovaries measure 4.1 x 2.9 x 2.2 cm and 3.7 x 2.4 x 1.6 cm respectively. Dominant follicle is noted on the right ovary. Arterial Doppler waveforms were obtained from each ovary. Minimal free fluid is present in the cul-de-sac. IMPRESSION: Retroverted uterus Pelvic findings are physiologic for periovulatory phase Report Dictated on --- Final --- Dictated: 05/13/2019 1:33 pm Dictating Physician: MD BARKER DIANE Signed Date and Time: 05/13/2019 1:35 pm Signed by: MD BARKER DIANE Transcribed Date and Time: 05/13/2019 1:33 [place] CT Abdomen Pelvis W Contrast on 05-12-2019 Reynaldo, [facility] Incoming Radiology Results From [facility] - 05/12/2019 8:43 PM EDT Patient Name: SOCORRO GONSALES ---CT--- Exam Date/Time 05/12/2019 20:22:[address] Abdomen/Pelvis w/ IV Contrast (IV Onl Ordering Physician JEFFREY RODRIGUEZ Accession Number [id number] CPT4 Codes 14448 (CT Abdomen/Pelvis w/ IV Contrast (IV Onl), Q9967 (CT ISOVUE 370MG/ML&[id number]&ML& 1) Reason For Exam concern for choledochal cyst Report CT ABDOMEN AND PELVIS WITH CONTRAST CLINICAL INDICATION: concern for choledochal cyst TECHNIQUE: CT scan of the abdomen and pelvis, with IV contrast. Multiplanar reformations. COMPARISON: CT abdomen and pelvis, April,; MRI abdomen, April, FINDINGS: Abdomen: Visualized lung bases grossly unremarkable. No radiopaque gallstones. Tubular, cystic focus again noted contiguous with common duct proximally and contained within the 2nd portion of duodenum measuring approximately 3.1 x 3.2 cm in cross-sectional diameter and approximately 5.5 cm in craniocaudal dimension, about the same. Liver without significant abnormality. Spleen without significant abnormality. Pancreas without significant abnormality. Kidneys without significant abnormality. Adrenal glands without significant abnormality. Pelvis: Bowel grossly unremarkable. Appendix within normal limits. No significant, free peritoneal fluid or apparent adenopathy. Abdominal aorta is nonaneurysmal. Axial skeleton grossly intact. IMPRESSION: 1. Findings compatible with dilatation of intraduodenal bile duct or type III choledochal cyst, similar to comparison. 2. No other acute findings. Report Dictated on Workstation: [id number] --- Final --- Dictated: 05/12/2019 8:30 pm Dictating Physician: MD GARCIA WENDELL Signed Date and Time: 05/12/2019 8:41 pm Signed by: MD GARCIA WENDELL Transcribed Date and Time: 05/12/2019 8:30 [place], [place] Patient Name: SOCORRO ORELLANA ---CT--- Exam Date/Time 05/12/2019 20:22:[address] Abdomen/Pelvis w/ IV Contrast (IV Onl Ordering Physician JEFFREY RODRIGUEZ Accession Number [id number] CPT4 Codes 69489 (CT Abdomen/Pelvis w/ IV Contrast (IV Onl), Q9967 (CT ISOVUE 370MG/ML&[id number]&ML& 1) Reason For Exam concern for choledochal cyst Report CT ABDOMEN AND PELVIS WITH CONTRAST CLINICAL INDICATION: concern for choledochal cyst TECHNIQUE: CT scan of the abdomen and pelvis, with IV contrast. Multiplanar reformations. COMPARISON: CT abdomen and pelvis, April,; MRI abdomen, April, FINDINGS: Abdomen: Visualized lung bases grossly unremarkable. No radiopaque gallstones. Tubular, cystic focus again noted contiguous with common duct proximally and contained within the 2nd portion of duodenum measuring approximately 3.1 x 3.2 cm in cross-sectional diameter and approximately 5.5 cm in craniocaudal dimension, about the same. Liver without significant abnormality. Spleen without significant abnormality. Pancreas without significant abnormality. Kidneys without significant abnormality. Adrenal glands without significant abnormality. Pelvis: Bowel grossly unremarkable. Appendix within normal limits. No significant, free peritoneal fluid or apparent adenopathy. Abdominal aorta is nonaneurysmal. Axial skeleton grossly intact. IMPRESSION: 1. Findings compatible with dilatation of intraduodenal bile duct or type III choledochal cyst, similar to comparison. 2. No other acute findings. Report Dictated on Workstation: [id number] --- Final --- Dictated: 05/12/2019 8:30 pm Dictating Physician: MD GARCIA WENDELL Signed Date and Time: 05/12/2019 8:41 pm Signed by: MD GARCIA WENDELL Transcribed Date and Time: 05/12/2019 8:30 [place] MRI ABDOMEN WO CONTRASTon Patient Name: SOCORRO ORELLANA ---MRI--- Exam Date/Time 05/08/2019 12:15:36 EDT Exam MRI Abdomen w/o Contrast Ordering Physician DO JOHNSON PAUL E. Accession Number [id number] CPT4 Codes 63937 () Reason For Exam MRCP Report MRI OF THE ABDOMEN WITH MRCP: CLINICAL INDICATION: Cystic lesion. TECHNIQUE: Transaxial and coronal T1 and T2 breath hold along with transaxial and coronal gradient echo sequences were performed through the abdomen. Thick section multi-angle and thin section multi-slice MRCP sequences were performed through the abdomen as well. Maximum intensity projection 3-D images were created with the latter data set on an independent workstation. COMPARISON: 04/18/2019 FINDINGS: Gallbladder: Normal. Biliary tree: No intrahepatic biliary dilatation. There is a cystic lesion arising from the distal most aspect of the common duct is within the duodenum, which measures 5.6 cm in craniocaudal diameter and approximately 3.3 x 2.7 cm in greatest transaxial diameters. No filling defects are seen suggestive of biliary calculi. Pancreatic duct: Normal caliber. Liver: Normal size and contour. No focal lesion. Pancreas: No mass or peripancreatic fluid identified. Spleen: Normal. Adrenals:Normal Kidneys: No contour abnormality or hydronephrosis. Aorta: Normal caliber. Visualized Osseous structures: Unremarkable. IMPRESSION: Large cystic lesion arising from the common bile duct, likely representing a choledochocyst. 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 Consider endoscopic evaluation. Report Dictated on --- Final --- Dictating Physician: MD MACHADO NICHOLAS Signed Date and Time: 05/08/2019 1:21 pm Signed by: MD MACHADO NICHOLAS Transcribed Date and Time: 05/08/2019 1:22 [facility]- [place], [place], [place] Incoming Radiology Results From [facility] - 05/08/2019 1:22 PM EDT Patient Name: SOCORRO GONSALES ---MRI--- Exam Date/Time 05/08/2019 12:15:36 EDT Exam MRI Abdomen w/o Contrast Ordering Physician DO JOHNSON PAUL E. Accession Number [id number] CPT4 Codes 49895 () Reason For Exam MRCP Report MRI OF THE ABDOMEN WITH MRCP: CLINICAL INDICATION: Cystic lesion. TECHNIQUE: Transaxial and coronal T1 and T2 breath hold along with transaxial and coronal gradient echo sequences were performed through the abdomen. Thick section multi-angle and thin section multi-slice MRCP sequences were performed through the abdomen as well. Maximum intensity projection 3-D images were created with the latter data set on an independent workstation. COMPARISON: 04/18/2019 FINDINGS: Gallbladder: Normal. Biliary tree: No intrahepatic biliary dilatation. There is a cystic lesion arising from the distal most aspect of the common duct is within the duodenum, which measures 5.6 cm in craniocaudal diameter and approximately 3.3 x 2.7 cm in greatest transaxial diameters. No filling defects are seen suggestive of biliary calculi. Pancreatic duct: Normal caliber. Liver: Normal size and contour. No focal lesion. Pancreas: No mass or peripancreatic fluid identified. Spleen: Normal. Adrenals:Normal Kidneys: No contour abnormality or hydronephrosis. Aorta: Normal caliber. Visualized Osseous structures: Unremarkable. IMPRESSION: Large cystic lesion arising from the common bile duct, likely representing a choledochocyst. 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 Consider endoscopic evaluation. Report Dictated on --- Final --- Dictating Physician: MD MACHADO NICHOLAS Signed Date and Time: 05/08/2019 1:21 pm Signed by: MD MACHADO NICHOLAS Transcribed Date and Time: 05/08/2019 1:22 [place], [place] Basic Metabolic Panelon 04-09 Anion gap [Moles/Vol] 11 mmol/L [place], [place] Calcium [Mass/Vol] 9.7 mg/dL 8.4 - 10. 4 mg/dL [place] Chloride [Moles/Vol] 103 mmol/L 98 - 10 7 mmol/L [place] CO2 [Moles/Vol] 28 mmol/L 22 - 30 mmol/L [place] Creatinine [Mass/Vol] 0.72 mg/dL 0.52 - 1.25 mg/dL [place] EGFR IF NonAfrican Japanese >60.0 >60 mL/min [place] Comment on above: Source- MDRD equatio n with creatinine calibration to IDMS(NKDEP) eGFR not recommended for drug dose adjustment GFR/1.73 sq M predicted among blacks MDRD (S/P/Bld) [Vol rate/Area] mL/min/{1.73_m2} >60 mL/min [place] Glucose [Mass/Vol] 104 mg/dL High 70 - 100 mg/dL [place], [place] Interpretation and review of laboratory results Abnormal [place] Potassium [Moles/Vol] 4.0 mmol/L 3.5 - 5.1 mmol/L [place] Sodium [Moles/Vol] 142 mmol/L 135 - 145 mmol/L [place] Urea nitrogen [Mass/Vol] 10 mg/dL 7 - 20 mg/dL [place] Test Performed by [facility] Jia Singh , [address] Abdomen Pelvis Wo Contras ton 04-18-2019 Freddie Jacobs Incoming Radiology Results From [facility] - 04/18/2019 10:21 PM EDT Patient Name: SOCORRO GONSALES ---CT--- Exam Date/Time 04/18/2019 21:40:[address] Abdomen/Pelvis (No PO, No IV) Ordering Physician FELIX DUARTE Accession Number [id number] CPT4 Codes 55864 (CT Abdomen/Pelvis (No PO, No IV)) Reason For Exam ABDOMINAL PAIN Report CT ABDOMEN AND PELVIS WITHOUT CONTRAST CLINICAL INDICATION: ABDOMINAL PAIN TECHNIQUE: CT scan of the abdomen and pelvis without IV/oral contrast. Multiplanar reformations. COMPARISON: None FINDINGS: Solid organ evaluation limited from lack of IV contrast. Clear lung bases. No free intraperitoneal gas seen. Liver shows no significant abnormality. No gallstones identified. No intrahepatic biliary tree dilatation. There is a tubular fluid collection which extends from about the level of the pancreatic head in the normal position of the common bile duct, extending into the duodenum. Maximum measurements of this structure approximately 2.5 x 2.8 x 8 cm. No peripancreatic inflammation. Pancreas otherwise appears unremarkable. Normal appearance of the kidneys and adrenal glands. Normal appearance of the spleen. Nonaneurysmal aorta. The appendix appears normal. The ovaries appear grossly unremarkable. No bowel obstruction. Moderate constipation. No ureteral calculus seen. IMPRESSION: 1. Tubular fluid collection extending from about the level of the pancreatic head into the duodenum in the expected location proximally of the common bile duct. This may represent a choledochocele. MRCP recommended for further evaluation. 2. Constipation Report Dictated on --- Final --- Dictating Physician: MD HEBER, PETER Reyna Signed Date and Time: 04/18/2019 10:20 pm Signed by: MD BUCK JOHN R Transcribed Date and Time: 04/18/2019 10:21 [place] Patient Name: SOCORRO ORELLANA ---CT--- Exam Date/Time 04/18/2019 21:40:[address] Abdomen/Pelvis (No PO, No IV) Ordering Physician VU DUARTEORY Accession Number [id number] CPT4 Codes 03920 (CT Abdomen/Pelvis (No PO, No IV)) Reason For Exam ABDOMINAL PAIN Report CT ABDOMEN AND PELVIS WITHOUT CONTRAST CLINICAL INDICATION: ABDOMINAL PAIN TECHNIQUE: CT scan of the abdomen and pelvis without IV/oral contrast. Multiplanar reformations. COMPARISON: None FINDINGS: Solid organ evaluation limited from lack of IV contrast. Clear lung bases. No free intraperitoneal gas seen. Liver shows no significant abnormality. No gallstones identified. No intrahepatic biliary tree dilatation. There is a tubular fluid collection which extends from about the level of the pancreatic head in the normal position of the common bile duct, extending into the duodenum. Maximum measurements of this structure approximately 2.5 x 2.8 x 8 cm. No peripancreatic inflammation. Pancreas otherwise appears unremarkable. Normal appearance of the kidneys and adrenal glands. Normal appearance of the spleen. Nonaneurysmal aorta. The appendix appears normal. The ovaries appear grossly unremarkable. No bowel obstruction. Moderate constipation. No ureteral calculus seen. IMPRESSION: 1. Tubular fluid collection extending from about the level of the pancreatic head into the duodenum in the expected location proximally of the common bile duct. This may represent a choledochocele. MRCP recommended for further evaluation. 2. Constipation Report Dictated on --- Final --- Dictating Physician: MD BUCK JOHN R Signed Date and Time: 04/18/2019 10:20 pm Signed by: MD BUCK JOHN R Transcribed Date and Time: 04/18/2019 10:21 [facility] Urine Qual [place] 2018 Beta HCG ( test) Ql (U) Negative Negative NA [place], [place] Comment on above: is the mos t common reason for HCG in urine, although choriocarcinoma, hydatidiform mole, and certain nontropho- blastic malignancies also result in detectable urinary HCG levels. Sensitivity = 20mIU/mL. Test Performed by [facility], [address] [place], [place] [address] , [place], [place] [id number] [place] [address] Hemogram (CBC)on 04-18-2019 Erythrocyte distribution width (RBC) [Ratio] 14.6 % High 11.5 - 14.5 % [place] Hematocrit (Bld) [Volume fraction] 36.7 % 35 - 47 % [place] Hemoglobin (Bld) [Mass/Vol] 12.6 g/dL 11.7 - 16 g/dL [place] Interpretation and review of laboratory results Abnormal [place] MCH (RBC) [Entitic mass] 29.1 pg 26 - 34 pg [place] MCHC (RBC) [Mass/Vol] 34.4 % 32 - 36 % [place] MCV (RBC) [Entitic vol] 84.6 fL 79 - 98 fL [place] Platelet mean volume (Bld) [Entitic vol] 8.1 fL 7.4 - 10.4 fL [place] Platelets (Bld) [#/Vol] 316 10*3/uL 140 - 440 10*3/uL [place] RBC (Bld) [#/Vol] 4.34 10*6/uL 3.8 - 5.2 10*6/uL [place] WBC (Bld) [#/Vol] 8.7 10*3/uL 3.6 - 10.7 10*3/uL [place] Test Performed by [facility] Jia Singh , [address] Urinalysison 04-18-2019 Appearance (U) Turbid [place], [place] Comment on above: Reference Range: Ivan ar Bacteria, UA Moderate (6-50) /[HPF] [place] Comment on above: Reference Range: Neg ative Bilirubin Urine Negative mg/dL [place] Comment on above: Reference Range: Neg ative Color (U) YELLOW [place] Comment on above: Reference Range: Lt. Yellow Glucose, Ur Normal mg/dL [place] Comment on above: Reference Range: Nor mal (<70) Ketones Ql (U) Negative mg/dL [place] Comment on above: Reference Range: Neg ative LEUKOCYTES, UA Negative Reyes/uL [place] Comment on above: Reference Range: Neg ative Mucous Threads Moderate /[LPF] [place] Comment on above: Reference Range: Neg ative Nitrite, Urine Negative [place] Comment on above: Reference Range: Neg ative Occult Blood,Urine Negative mg/dL [place] Comment on above: Reference Range: Neg ative pH (U) 7.5 [pH] [place] Protein (U) [Mass/Vol] 20 mg/dL [place] Comment on above: Reference Range: Neg ative RBC (U) [#/Vol] Negative /[HPF] [place] Comment on above: Reference Range: 0-2 Specific [place], Urine 1.029 [place] Squam Epithel, UA 6-10 /[HPF] [place] Comment on above: Reference Range: 3-5 Urobilinogen, Urine 2 mg/dL [place] Comment on above: Reference Range: Nor mal (0-1) Volume 12 ml [place] WBC, UA 0-2 /[HPF] [place] Comment on above: Reference Range: 0-5 Test Performed by [facility], [address] [place] [address] [address] Vital Signs Date Time Vital Sign Value Performing Clinician Facility 01-10-2025 23:52-0400 Diastolic blood pressure 72 mm[Hg] [employer] Work Phone: 01-10-2025 23:52-0400 Heart rate 71 /min [employer] [facility] Work Phone: 01-10-2025 23:52-0400 Respiratory rate 17 /min [employer] [facility] Work Phone: 01-10-2025 23:52-0400 SaO2% (BldA) [Mass fraction] 99 % [employer] [facility] Work Phone: 01-10-2025 23:52-0400 Systolic blood pressure 111 mm[Hg] [employer] Work Phone: [facility] 01-10-2025 21:02-0400 Body height 165.1 cm Natalia Mark DO Work Phone: [facility] [employer] 01-10-2025 21:02-0400 Body mass index (BMI) [Ratio] 24.96 kg/m2 Natalia Mark DO Work Phone: [facility] [employer] [facility] 01-10-2025 21:02-0400 Body temperature 97.81 [degF] Natalia Mark DO Work Phone: [facility] [employer] [facility] 01-10-2025 21:02-0400 Body weight 68.04 kg Natalia Mark DO Work Phone: [facility] 11-24-2024 09:21-0400 Body height 165.1 cm Scooter Vichosky PA-C Work Phone: [facility] 11-24-2024 09:21-0400 Body mass index (BMI) [Ratio] 24.03 kg/m2 Scooter Vichosky PA-C Work Phone: [facility] 11-24-2024 09:21-0400 Body temperature 98.1 [degF] Scooter Vichosky PA-C Work Phone: [facility] 11-24-2024 09:21-0400 Body weight 65.5 kg Scooter Vichosky PA-C Work Phone: [facility] 11-24-2024 09:21-0400 Diastolic blood pressure 63 mm[Hg] Scooter Hollyhosky PA-C Work Phone: [facility] 11-24-2024 09:21-0400 Heart rate 89 /min Scooter Vichosky PA-C Work Phone: [facility] 11-24-2024 09:21-0400 SaO2% (BldA) [Mass fraction] 98 % Scooter Vichosky PA-C Work Phone: [facility] 11-24-2024 09:21-0400 Systolic blood pressure 100 mm[Hg] Scooter Vichosky PA-C Work Phone: [facility] 11-09-2024 09:15-0400 Body height 165.1 cm Lenin De Los Santos MD Work Phone: [facility] 11-09-2024 09:15-0400 Body mass index (BMI) [Ratio] 24.56 kg/m2 Lenin De Los Santos MD Work Phone: [facility] 11-09-2024 09:15-0400 Body temperature 98.2 [degF] Lenin De Los Santos MD Work Phone: [facility] 11-09-2024 09:15-0400 Body weight 66.95 kg Lenin De Los Santos MD Work Phone: [facility] 11-09-2024 09:15-0400 Diastolic blood pressure 71 mm[Hg] Lenin De Los Santos MD Work Phone: [facility] 11-09-2024 09:15-0400 Heart rate 79 /min Lenin De Los Santos MD Work Phone: [facility] 11-09-2024 09:15-0400 Systolic blood pressure 106 mm[Hg] Lenin De Los Santos MD Work Phone: [facility] 11-08-2024 17:55-0400 Body height 165.1 cm Reza Lugola DO Work Phone: [facility] 11-08-2024 17:55-0400 Body mass index (BMI) [Ratio] 24.96 kg/m2 Reza Parishla DO Work Phone: [facility] 11-08-2024 17:55-0400 Body temperature 98.2 [degF] Reza Parishla DO Work Phone: [facility] 11-08-2024 17:55-0400 Body weight 68.04 kg Reza Parishla DO Work Phone: [facility] 11-08-2024 17:55-0400 Diastolic blood pressure 69 mm[Hg] Reza Claudiakola DO Work Phone: [facility] 11-08-2024 17:55-0400 Heart rate 90 /min Reza Lugola DO Work Phone: [facility] 11-08-2024 17:55-0400 Respiratory rate 16 /min Reza Parishla DO Work Phone: [facility] 11-08-2024 17:55-0400 SaO2% (BldA) [Mass fraction] 99 % Reza Lugola DO Work Phone: [facility] 11-08-2024 17:55-0400 Systolic blood pressure 120 mm[Hg] Reza Lugola DO Work Phone: [facility] 10-21-2024 14:16-0400 Diastolic blood pressure 71 mm[Hg] Ashely Abdi MD Work Phone: [facility] 10-21-2024 14:16-0400 Heart rate 91 /min Ashely Abdi MD Work Phone: [facility] 10-21-2024 14:16-0400 Respiratory rate 16 /min Ashely Abdi MD Work Phone: [facility] 10-21-2024 14:16-0400 SaO2% (BldA) [Mass fraction] 100 % Ashely Abdi MD Work Phone: [facility] 10-21-2024 14:16-0400 Systolic blood pressure 108 mm[Hg] Ashely Abdi MD Work Phone: [facility] 10-21-2024 12:51-0400 Body temperature 97.3 [degF] Ashely Abdi MD Work Phone: [facility] 10-21-2024 12:50-0400 Body height 165.1 cm Ashely Abdi MD Work Phone: [facility] 10-21-2024 12:50-0400 Body mass index (BMI) [Ratio] 23.3 kg/m2 Ashely Abdi MD Work Phone: [facility] 10-21-2024 12:50-0400 Body weight 63.5 kg Ashely Abdi MD Work Phone: 10-21-2024 12:02-0400 Body mass index (BMI) [Ratio] 23.88 kg/m2 Marva Stanley APRN.ENGINE DISPATCHER Work Phone: [facility] 10-21-2024 12:02-0400 Body temperature 99.5 [degF] Marva Stanley APRN.ENGINE DISPATCHER Work Phone: [facility] 10-21-2024 12:02-0400 Body weight 65.1 kg Marva Stanley APRN.ENGINE DISPATCHER Work Phone: [facility] 10-21-2024 12:02-0400 Diastolic blood pressure 71 mm[Hg] Marva Stanley APRN.ENGINE DISPATCHER Work Phone: [facility] 10-21-2024 12:02-0400 Heart rate 111 /min Marva Stanley APRN.ENGINE DISPATCHER Work Phone: [facility] 10-21-2024 12:02-0400 Respiratory rate 18 /min Marva Stanley APRN.ENGINE DISPATCHER Work Phone: [facility] 10-21-2024 12:02-0400 SaO2% (BldA) [Mass fraction] 99 % Marva Stanley APRN.ENGINE DISPATCHER Work Phone: [facility] 10-21-2024 12:02-0400 Systolic blood pressure 105 mm[Hg] Marva Stanley APRN.ENGINE DISPATCHER Work Phone: [facility] 10-07-2024 13:47-0500 Body mass index (BMI) [Ratio] 23.7 kg/m2 Jaguar Person APRN.ENGINE DISPATCHER Work Phone: [facility] 10-07-2024 13:47-0500 Body temperature 99.81 [degF] Jaguar Person APRN.ENGINE DISPATCHER Work Phone: [facility] 10-07-2024 13:47-0500 Body weight 64.6 kg Jaguar Person APRN.ENGINE DISPATCHER Work Phone: [facility] 10-07-2024 13:47-0500 Diastolic blood pressure 67 mm[Hg] Jaguar Pendlebury PHOTOENGRAVING HELPER.ENGINE DISPATCHER Work Phone: [facility] 10-07-2024 13:47-0500 Heart rate 91 /min Jaguar Person PHOTOENGRAVING HELPER.ENGINE DISPATCHER Work Phone: [facility] 10-07-2024 13:47-0500 Respiratory rate 16 /min [facility] PHOTOENGRAVING HELPER.ENGINE DISPATCHER Work Phone: [facility] 10-07-2024 13:47-0500 SaO2% (BldA) [Mass fraction] 100 % [facility] PHOTOENGRAVING HELPER.ENGINE DISPATCHER Work Phone: [facility] 10-07-2024 13:47-0500 Systolic blood pressure 104 mm[Hg] [facility] PHOTOENGRAVING HELPER.ENGINE DISPATCHER Work Phone: [facility] 09-20-2024 08:48-0500 Body mass index (BMI) [Ratio] 24.14 kg/m2 Krislyn Aberegg PA Work Phone: [facility] 09-20-2024 08:48-0500 Body temperature 98.91 [degF] Krislyn Aberegg PA Work Phone: [facility] 09-20-2024 08:48-0500 Body weight 65.8 kg Krislyn Aberegg PA Work Phone: [facility] 09-20-2024 08:48-0500 Diastolic blood pressure 66 mm[Hg] Krislyn Aberegg PA Work Phone: [facility] 09-20-2024 08:48-0500 Heart rate 67 /min Krislyn Aberegg PA Work Phone: [facility] 09-20-2024 08:48-0500 Respiratory rate 20 /min Krislyn Aberegg PA Work Phone: [facility] 09-20-2024 08:48-0500 SaO2% (BldA) [Mass fraction] 99 % Krislyn Aberegg PA Work Phone: [facility] 09-20-2024 08:48-0500 Systolic blood pressure 120 mm[Hg] Dmitriybrigettemartha Viviane PA Work Phone: [facility] 09-17-2024 08:54-0500 Body mass index (BMI) [Ratio] 24.65 kg/m2 Jaguar Person PHOTOENGRAVING HELPER.ENGINE DISPATCHER Work Phone: [facility] 09-17-2024 08:54-0500 Body temperature 98.6 [degF] Jaguar Person PHOTOENGRAVING HELPER.ENGINE DISPATCHER Work Phone: [facility] 09-17-2024 08:54-0500 Body weight 67.2 kg Jaguar Person PHOTOENGRAVING HELPER.ENGINE DISPATCHER Work Phone: [facility] 09-17-2024 08:54-0500 Diastolic blood pressure 70 mm[Hg] Jaguar Person PHOTOENGRAVING HELPER.ENGINE DISPATCHER Work Phone: [facility] 09-17-2024 08:54-0500 Heart rate 90 /min Jaguar Person PHOTOENGRAVING HELPER.ENGINE DISPATCHER Work Phone: [facility] 09-17-2024 08:54-0500 Respiratory rate 16 /min Jaguar Person PHOTOENGRAVING HELPER.ENGINE DISPATCHER Work Phone: [facility] 09-17-2024 08:54-0500 SaO2% (BldA) [Mass fraction] 100 % Jaguar Person PHOTOENGRAVING HELPER.ENGINE DISPATCHER Work Phone: [facility] 09-17-2024 08:54-0500 Systolic blood pressure 122 mm[Hg] Jaguar Person PHOTOENGRAVING HELPER.ENGINE DISPATCHER Work Phone: [facility] 08-01-2024 10:11-0500 Body mass index (BMI) [Ratio] 24.95 kg/m2 Bro Lucio PHOTOENGRAVING HELPER.ENGINE DISPATCHER Work Phone: [facility] 08-01-2024 10:11-0500 Body temperature 97.5 [degF] Bro Lucio PHOTOENGRAVING HELPER.ENGINE DISPATCHER Work Phone: [facility] 08-01-2024 10:11-0500 Body weight 68 kg Bro Praisler-Wood PHOTOENGRAVING HELPER.ENGINE DISPATCHER Work Phone: [facility] 08-01-2024 10:11-0500 Diastolic blood pressure 71 mm[Hg] Bro Praisler-Wood PHOTOENGRAVING HELPER.ENGINE DISPATCHER Work Phone: [facility] 08-01-2024 10:11-0500 Heart rate 65 /min Bro Praisler-Wood PHOTOENGRAVING HELPER.ENGINE DISPATCHER Work Phone: [facility] 08-01-2024 10:11-0500 Respiratory rate 20 /min Bro Praisler-Wood PHOTOENGRAVING HELPER.ENGINE DISPATCHER Work Phone: [facility] 08-01-2024 10:11-0500 SaO2% (BldA) [Mass fraction] 100 % Bro Praisler-Wood PHOTOENGRAVING HELPER.ENGINE DISPATCHER Work Phone: [facility] 08-01-2024 10:11-0500 Systolic blood pressure 104 mm[Hg] Bro Praisler-Wood PHOTOENGRAVING HELPER.ENGINE DISPATCHER Work Phone: [facility] 06-21-2024 07:54-0500 Body height 165.1 cm Philippe Chua DO Work Phone: [facility] 06-21-2024 07:54-0500 Body mass index (BMI) [Ratio] 25.96 kg/m2 Philippe Jerrykatlynparrish DO Work Phone: [facility] 06-21-2024 07:54-0500 Body temperature 97.5 [degF] Philippe Jerrykatlynparrish DO Work Phone: [facility] 06-21-2024 07:54-0500 Body weight 70.76 kg Philippe Jerrykatlynparrish RAI Work Phone: [facility] 06-21-2024 07:54-0500 Diastolic blood pressure 60 mm[Hg] Philippe Jerrycatracho DO Work Phone: [facility] 06-21-2024 07:54-0500 Heart rate 51 /min Philippe Jerrycatracho DO Work Phone: [facility] 06-21-2024 07:54-0500 SaO2% (BldA) [Mass fraction] 98 % Philippe Chua DO Work Phone: [facility] 06-21-2024 07:54-0500 Systolic blood pressure 80 mm[Hg] Philippe Chua DO Work Phone: [facility] 06-05-2024 20:15-0400 Diastolic blood pressure 66 mm[Hg] Bartolo Batres MD Work Phone: [facility] 06-05-2024 20:15-0400 Heart rate 68 /min Bartolo Batres MD Work Phone: [facility] 06-05-2024 20:15-0400 Respiratory rate 14 /min Bartolo Batres MD Work Phone: [facility] 06-05-2024 20:15-0400 SaO2% (BldA) [Mass fraction] 99 % Bartolo Batres MD Work Phone: [facility] 06-05-2024 20:15-0400 Systolic blood pressure 105 mm[Hg] Bartolo Batres MD Work Phone: [facility] 06-05-2024 18:18-0400 Body height 165.1 cm Bartolo Batres MD Work Phone: [facility] 06-05-2024 18:18-0400 Body mass index (BMI) [Ratio] 25.63 kg/m2 Bartolo Batres MD Work Phone: [facility] 06-05-2024 18:18-0400 Body temperature 97.39 [degF] Bartolo Batres MD Work Phone: [facility] 06-05-2024 18:18-0400 Body weight 69.85 kg Bartolo Batres MD Work Phone: [facility] 05-30-2024 15:43-0400 Body mass index (BMI) [Ratio] 25.64 kg/m2 Renate Blandon APRN.CNP Work Phone: [facility] 05-30-2024 15:43-0400 Body temperature 98.6 [degF] Renate Blandon PHOTOENGRAVING HELPER.ENGINE DISPATCHER Work Phone: [facility] 05-30-2024 15:43-0400 Body weight 69.9 kg Renate Blandon PHOTOENGRAVING HELPER.ENGINE DISPATCHER Work Phone: [facility] 05-30-2024 15:43-0400 Diastolic blood pressure 64 mm[Hg] Renate Blandon PHOTOENGRAVING HELPER.ENGINE DISPATCHER Work Phone: [facility] 05-30-2024 15:43-0400 Heart rate 80 /min Renate Blandon PHOTOENGRAVING HELPER.ENGINE DISPATCHER Work Phone: [facility] 05-30-2024 15:43-0400 Respiratory rate 18 /min Renate Blandon PHOTOENGRAVING HELPER.ENGINE DISPATCHER Work Phone: [facility] 05-30-2024 15:43-0400 SaO2% (BldA) [Mass fraction] 98 % Renate Blandon PHOTOENGRAVING HELPER.ENGINE DISPATCHER Work Phone: [facility] 05-30-2024 15:43-0400 Systolic blood pressure 102 mm[Hg] Renate Blandon PHOTOENGRAVING HELPER.ENGINE DISPATCHER Work Phone: [facility] 05-15-2024 10:02-0400 Body mass index (BMI) [Ratio] 25.28 kg/m2 Deo Feliciano MD Work Phone: [facility] 05-15-2024 10:02-0400 Body temperature 98.49 [degF] Deo Feliciano MD Work Phone: [facility] 05-15-2024 10:02-0400 Body weight 68.9 kg Deo Feliciano MD Work Phone: [facility] 05-15-2024 10:02-0400 Diastolic blood pressure 62 mm[Hg] Deo Feliciano MD Work Phone: [facility] 05-15-2024 10:02-0400 Heart rate 70 /min Deo Feliciano MD Work Phone: [facility] 05-15-2024 10:02-0400 Respiratory rate 16 /min Deo Feliciano MD Work Phone: [facility] 05-15-2024 10:02-0400 SaO2% (BldA) [Mass fraction] 98 % eDo Feliciano MD Work Phone: [facility] 05-15-2024 10:02-0400 Systolic blood pressure 102 mm[Hg] Deo Feliciano MD Work Phone: [facility] 04-25-2024 14:40-0400 Body height 165.1 cm Lenin De Los Santos MD Work Phone: 04-25-2024 14:40-0400 Body mass index (BMI) [Ratio] 25.36 kg/m2 Lenin De Los Santos MD Work Phone: 04-25-2024 14:40-0400 Body temperature 97.39 [degF] Lenin De Los Santos MD Work Phone: 04-25-2024 14:40-0400 Body weight 69.13 kg Lenin De Los Santos MD Work Phone: 04-25-2024 14:40-0400 Diastolic blood pressure 67 mm[Hg] Lenin De Los Santos MD Work Phone: 04-25-2024 14:40-0400 Heart rate 112 /min Lenin De Los Santos MD Work Phone: 04-25-2024 14:40-0400 Systolic blood pressure 106 mm[Hg] Lenin De Los Santos MD Work Phone: 03-13-2024 16:52-0400 Body mass index (BMI) [Ratio] 24.91 kg/m2 Renate Blandon APRN.ENGINE DISPATCHER Work Phone: [facility] 03-13-2024 16:52-0400 Body temperature 98.8 [degF] Renate Blandon APRN.CNP Work Phone: [facility] 03-13-2024 16:52-0400 Body weight 67.9 kg Renate Blandon PHOTOENGRAVING HELPER.ENGINE DISPATCHER Work Phone: [facility] 03-13-2024 16:52-0400 Diastolic blood pressure 64 mm[Hg] Renate Blandon PHOTOENGRAVING HELPER.ENGINE DISPATCHER Work Phone: [facility] 03-13-2024 16:52-0400 Heart rate 74 /min Renate Blandon PHOTOENGRAVING HELPER.ENGINE DISPATCHER Work Phone: [facility] 03-13-2024 16:52-0400 Respiratory rate 18 /min Renate Blandon PHOTOENGRAVING HELPER.ENGINE DISPATCHER Work Phone: [facility] 03-13-2024 16:52-0400 SaO2% (BldA) [Mass fraction] 100 % Renate Blandon PHOTOENGRAVING HELPER.ENGINE DISPATCHER Work Phone: [facility] 03-13-2024 16:52-0400 Systolic blood pressure 102 mm[Hg] Renate Blandon PHOTOENGRAVING HELPER.ENGINE DISPATCHER Work Phone: [facility] 03-09-2024 13:59-0400 Body mass index (BMI) [Ratio] 25.5 kg/m2 Jaguar Raza PHOTOENGRAVING HELPER.ENGINE DISPATCHER Work Phone: [facility] 03-09-2024 13:59-0400 Body temperature 98.29 [degF] Jaguar Person PHOTOENGRAVING HELPER.ENGINE DISPATCHER Work Phone: [facility] 03-09-2024 13:59-0400 Body weight 69.5 kg Jaguar Person PHOTOENGRAVING HELPER.ENGINE DISPATCHER Work Phone: [facility] 03-09-2024 13:59-0400 Diastolic blood pressure 77 mm[Hg] Jaguar Pendlebury PHOTOENGRAVING HELPER.ENGINE DISPATCHER Work Phone: [facility] 03-09-2024 13:59-0400 Heart rate 73 /min Jaguar Person PHOTOENGRAVING HELPER.ENGINE DISPATCHER Work Phone: [facility] 03-09-2024 13:59-0400 Respiratory rate 18 /min Jaguar Pendlesadiq PHOTOENGRAVING HELPER.ENGINE DISPATCHER Work Phone: [facility] 03-09-2024 13:59-0400 SaO2% (BldA) [Mass fraction] 100 % Jaguar Cooperlanny PHOTOENGRAVING HELPER.ENGINE DISPATCHER Work Phone: [facility] 03-09-2024 13:59-0400 Systolic blood pressure 112 mm[Hg] Jaguar Uribesadiq PHOTOENGRAVING HELPER.ENGINE DISPATCHER Work Phone: [facility] 03-08-2024 13:27-0400 Body height 165.1 cm Scooter Vichosky PA-C Work Phone: [facility] 03-08-2024 13:27-0400 Body mass index (BMI) [Ratio] 24.96 kg/m2 Scooter Vichosky PA-C Work Phone: 03-08-2024 13:27-0400 Body temperature 97.39 [degF] Scooter Vichosky PA-C Work Phone: 03-08-2024 13:27-0400 Body weight 68.04 kg Scooter Vichosky PA-C Work Phone: [facility] 03-08-2024 13:27-0400 Diastolic blood pressure 72 mm[Hg] Scooter Vichosky PA-C Work Phone: 03-08-2024 13:27-0400 Heart rate 89 /min Scooter Vichosky PA-C Work Phone: 03-08-2024 13:27-0400 SaO2% (BldA) [Mass fraction] 100 % Scooter Vichosky PA-C Work Phone: [facility] 03-08-2024 13:27-0400 Systolic blood pressure 106 mm[Hg] Scooter Vichosky PA-C Work Phone: 02-23-2024 13:14-0400 Body height 165.1 cm Philippe Chua DO Work Phone: [facility] 02-23-2024 13:14-0400 Body mass index (BMI) [Ratio] 25.96 kg/m2 Philippe Chua DO Work Phone: [facility] 02-23-2024 13:14-0400 Body temperature 97.7 [degF] Philippe Chua DO Work Phone: [facility] 02-23-2024 13:14-0400 Body weight 70.76 kg Philippe Chua DO Work Phone: [facility] 02-23-2024 13:14-0400 Diastolic blood pressure 70 mm[Hg] Philippe Chua DO Work Phone: [facility] 02-23-2024 13:14-0400 Heart rate 76 /min Philippe Chua DO Work Phone: [facility] 02-23-2024 13:14-0400 SaO2% (BldA) [Mass fraction] 99 % Philippe Chua DO Work Phone: [facility] 02-23-2024 13:14-0400 Systolic blood pressure 90 mm[Hg] Philippe Chua DO Work Phone: [facility] 02-16-2024 18:35-0400 Diastolic blood pressure 69 mm[Hg] Neptali Perera MD Work Phone: [facility] 02-16-2024 18:35-0400 Heart rate 62 /min Neptali Perera MD Work Phone: [facility] 02-16-2024 18:35-0400 Respiratory rate 16 /min Neptali Perera MD Work Phone: [facility] 02-16-2024 18:35-0400 Systolic blood pressure 106 mm[Hg] Neptali Perera MD Work Phone: [facility] 02-16-2024 16:50-0400 Body mass index (BMI) [Ratio] 24.96 kg/m2 Neptali Perera MD Work Phone: [facility] 02-16-2024 16:50-0400 Body temperature 98.49 [degF] Neptali Perera MD Work Phone: [facility] 02-16-2024 16:50-0400 Body weight 68.04 kg Neptali Perera MD Work Phone: 02-16-2024 16:50-0400 SaO2% (BldA) [Mass fraction] 100 % Neptali Perera MD Work Phone: 11-29-2023 08:10-0400 Body mass index (BMI) [Ratio] 25.96 kg/m2 Mary Tong RD Work Phone: 11-29-2023 08:10-0400 Body weight 70.[address] Work Phone: 11-21-2023 09:04-0400 Body temperature 99.19 [degF] Krislyn Aberegg PA Work Phone: [facility] 11-21-2023 09:04-0400 Body weight 70.3 kg Krislyn Aberegg PA Work Phone: [facility] 11-21-2023 09:04-0400 Diastolic blood pressure 64 mm[Hg] Krislyn Aberegg PA Work Phone: [facility] 11-21-2023 09:04-0400 Heart rate 100 /min Krislyn Aberegg PA Work Phone: [facility] 11-21-2023 09:04-0400 Respiratory rate 18 /min Krislyn Aberegg PA Work Phone: [facility] 11-21-2023 09:04-0400 SaO2% (BldA) [Mass fraction] 100 % Krislyn Aberegg PA Work Phone: [facility] 11-21-2023 09:04-0400 Systolic blood pressure 90 mm[Hg] Krislyn Aberegg PA Work Phone: [facility] 10-21-2023 13:04-0400 Body temperature 97.3 [degF] [facility] 10-21-2023 13:04-0400 Diastolic blood pressure 68 mm[Hg] [facility] 10-21-2023 13:04-0400 Heart rate 71 /min [facility] 10-21-2023 13:04-0400 Respiratory rate 16 /min [facility] 10-21-2023 13:04-0400 SaO2% (BldA) [Mass fraction] 99 % [facility] 10-21-2023 13:04-0400 Systolic blood pressure 94 mm[Hg] [facility] 10-21-2023 07:42-0400 Body height 165.[address] [facility] 10-21-2023 07:42-0400 Body mass index (BMI) [Ratio] 25.9 kg/m2 [facility] 10-21-2023 07:42-0400 Body weight 70.[address] [facility] 10-19-2023 15:26-0400 Body temperature 98.6 [degF] Denise Athy PA-C Work Phone: [facility] 10-19-2023 15:26-0400 Body weight 68.6 kg Denise Athy PA-C Work Phone: [facility] 10-19-2023 15:26-0400 Diastolic blood pressure 64 mm[Hg] Denise Athy PA-C Work Phone: [facility] 10-19-2023 15:26-0400 Heart rate 64 /min Denise Athy PA-C Work Phone: [facility] 10-19-2023 15:26-0400 Respiratory rate 16 /min Denise Athy PA-C Work Phone: [facility] 10-19-2023 15:26-0400 SaO2% (BldA) [Mass fraction] 98 % Denise Athy PA-C Work Phone: [facility] 10-19-2023 15:26-0400 Systolic blood pressure 106 mm[Hg] Denise Athy PA-C Work Phone: [facility] 09-14-2023 11:13-0500 Body height 165.1 cm Scooter Gunderson PA-C Work Phone: [facility] 09-14-2023 11:13-0500 Body mass index (BMI) [Ratio] 25.79 kg/m2 Scooter Holylhosky PA-C Work Phone: [facility] 09-14-2023 11:13-0500 Body temperature 98.2 [degF] Scooter Vichosky PA-C Work Phone: [facility] 09-14-2023 11:13-0500 Body weight 70.31 kg Scooter Vichosky PA-C Work Phone: [facility] 09-14-2023 11:13-0500 Diastolic blood pressure 70 mm[Hg] Scooter Vichosky PA-C Work Phone: [facility] 09-14-2023 11:13-0500 Heart rate 82 /min Scooter Vichosky PA-C Work Phone: [facility] 09-14-2023 11:13-0500 Systolic blood pressure 109 mm[Hg] Scooter Vichosky PA-C Work Phone: [facility] 08-05-2023 21:10-0500 Diastolic blood pressure 77 mm[Hg] Jean Jabour DO Work Phone: [facility] 08-05-2023 21:10-0500 Heart rate 83 /min Jean Jabour DO Work Phone: [facility] 08-05-2023 21:10-0500 Systolic blood pressure 118 mm[Hg] Jean Jabour DO Work Phone: [facility] 08-05-2023 19:35-0500 Body temperature 98.2 [degF] Jean Jabour DO Work Phone: [facility] 08-05-2023 19:35-0500 Respiratory rate 20 /min Jean Jabour DO Work Phone: [facility] 08-05-2023 19:35-0500 SaO2% (BldA) [Mass fraction] 100 % Jean Jabour DO Work Phone: [facility] 07-23-2023 13:50-0500 Body temperature 99.19 [degF] Krislyn Aberegg PA Work Phone: [facility] 07-23-2023 13:50-0500 Body weight 69.49 kg Krislyn Aberegg PA Work Phone: [facility] 07-23-2023 13:50-0500 Diastolic blood pressure 68 mm[Hg] Krislyn Aberegg PA Work Phone: [facility] 07-23-2023 13:50-0500 Heart rate 89 /min Krislyn Aberegg PA Work Phone: [facility] 07-23-2023 13:50-0500 Respiratory rate 21 /min Krislyn Aberegg PA Work Phone: [facility] 07-23-2023 13:50-0500 SaO2% (BldA) [Mass fraction] 99 % Krislyn Aberegg PA Work Phone: [facility] 07-23-2023 13:50-0500 Systolic blood pressure 98 mm[Hg] Krislyn Aberegg PA Work Phone: [facility] 07-15-2023 09:42-0500 Body height 167.6 cm Lenin De Los Santos MD Work Phone: [facility] 07-15-2023 09:42-0500 Body mass index (BMI) [Ratio] 24.24 kg/m2 Lenin De Los Santos MD Work Phone: [facility] 07-15-2023 09:42-0500 Body temperature 97.39 [degF] Lenin De Los Santos MD Work Phone: [facility] 07-15-2023 09:42-0500 Body weight 68.13 kg Lenin De Los Santos MD Work Phone: [facility] 07-15-2023 09:42-0500 Diastolic blood pressure 72 mm[Hg] Lenin De Los Santos MD Work Phone: [facility] 07-15-2023 09:42-0500 Heart rate 69 /min Lenin De Los Santos MD Work Phone: 07-15-2023 09:42-0500 Systolic blood pressure 113 mm[Hg] Lenin De Los Santos MD Work Phone: 07-08-2023 07:40-0500 Body temperature 98.1 [degF] Jaguar Person PHOTOENGRAVING HELPER.ENGINE DISPATCHER Work Phone: [facility] 07-08-2023 07:40-0500 Body weight 71.49 kg Jaguar Person PHOTOENGRAVING HELPER.ENGINE DISPATCHER Work Phone: [facility] 07-08-2023 07:40-0500 Diastolic blood pressure 62 mm[Hg] Jaguar Person PHOTOENGRAVING HELPER.ENGINE DISPATCHER Work Phone: [facility] 07-08-2023 07:40-0500 Heart rate 72 /min Jaguar Person PHOTOENGRAVING HELPER.ENGINE DISPATCHER Work Phone: [facility] 07-08-2023 07:40-0500 Respiratory rate 21 /min Jaguar Person PHOTOENGRAVING HELPER.ENGINE DISPATCHER Work Phone: [facility] 07-08-2023 07:40-0500 SaO2% (BldA) [Mass fraction] 98 % Jaguar Person PHOTOENGRAVING HELPER.ENGINE DISPATCHER Work Phone: [facility] 07-08-2023 07:40-0500 Systolic blood pressure 98 mm[Hg] Jaguar Person PHOTOENGRAVING HELPER.ENGINE DISPATCHER Work Phone: [facility] 07-04-2023 08:21-0500 Body temperature 97.5 [degF] Bro Lucio PHOTOENGRAVING HELPER.ENGINE DISPATCHER Work Phone: [facility] 07-04-2023 08:21-0500 Body weight 70.4 kg Bro Lucio PHOTOENGRAVING HELPER.ENGINE DISPATCHER Work Phone: [facility] 07-04-2023 08:21-0500 Diastolic blood pressure 74 mm[Hg] Bro Lucio PHOTOENGRAVING HELPER.ENGINE DISPATCHER Work Phone: [facility] 07-04-2023 08:21-0500 Heart rate 60 /min Bro Praisler-Wood PHOTOENGRAVING HELPER.ENGINE DISPATCHER Work Phone: [facility] 07-04-2023 08:21-0500 Respiratory rate 18 /min Bro Praisler-Wood PHOTOENGRAVING HELPER.ENGINE DISPATCHER Work Phone: [facility] 07-04-2023 08:21-0500 SaO2% (BldA) [Mass fraction] 98 % Bro Praisler-Wood PHOTOENGRAVING HELPER.ENGINE DISPATCHER Work Phone: [facility] 07-04-2023 08:21-0500 Systolic blood pressure 111 mm[Hg] Bro Praisler-Wood PHOTOENGRAVING HELPER.ENGINE DISPATCHER Work Phone: [facility] 06-08-2023 13:52-0400 Body height 167.6 cm Lenin De Los Santos MD Work Phone: [facility] 06-08-2023 13:52-0400 Body mass index (BMI) [Ratio] 24.82 kg/m2 Lenin De Los Santos MD Work Phone: [facility] 06-08-2023 13:52-0400 Body weight 69.76 kg Lenin De Los Santos MD Work Phone: [facility] 06-08-2023 13:52-0400 Diastolic blood pressure 66 mm[Hg] Lenin De Los Santos MD Work Phone: [facility] 06-08-2023 13:52-0400 Heart rate 60 /min Lenin De Los Santos MD Work Phone: [facility] 06-08-2023 13:52-0400 Systolic blood pressure 108 mm[Hg] Lenin De Los Santos MD Work Phone: [facility] 05-27-2023 08:33-0400 Body height 167.6 cm Lenin De Los Santos MD Work Phone: [facility] 05-27-2023 08:33-0400 Body mass index (BMI) [Ratio] 25.15 kg/m2 Lenin De Los Santos MD Work Phone: [facility] 05-27-2023 08:33-0400 Body temperature 97.59 [degF] Lenin De Los Santos MD Work Phone: [facility] 05-27-2023 08:33-0400 Body weight 70.67 kg Lenin De Los Santos MD Work Phone: [facility] 05-27-2023 08:33-0400 Diastolic blood pressure 72 mm[Hg] Lenin De Los Santos MD Work Phone: [facility] 05-27-2023 08:33-0400 Heart rate 80 /min Lenin De Los Santos MD Work Phone: [facility] 05-27-2023 08:33-0400 Systolic blood pressure 112 mm[Hg] Lenin De Los Santos MD Work Phone: [facility] 05-18-2023 03:55-0400 Diastolic blood pressure 70 mm[Hg] Deo Yates MD Work Phone: [facility] 05-18-2023 03:55-0400 Heart rate 71 /min Deo Yates MD Work Phone: [facility] 05-18-2023 03:55-0400 Respiratory rate 18 /min Deo Yates MD Work Phone: [facility] 05-18-2023 03:55-0400 SaO2% (BldA) [Mass fraction] 97 % Deo Yates MD Work Phone: [facility] 05-18-2023 03:55-0400 Systolic blood pressure 103 mm[Hg] Deo Yates MD Work Phone: [facility] 05-17-2023 21:49-0400 Body height 165.1 cm Deo Yates MD Work Phone: [facility] 05-17-2023 21:49-0400 Body mass index (BMI) [Ratio] 25.29 kg/m2 Deo Yates MD Work Phone: [facility] 05-17-2023 21:49-0400 Body temperature 98.6 [degF] Deo Yates MD Work Phone: [facility] 05-17-2023 21:49-0400 Body weight 68.95 kg Deo Yates MD Work Phone: [facility] 04-20-2023 14:15-0400 Body height 167.6 cm Lenin De Los Santos MD Work Phone: [facility] 04-20-2023 14:15-0400 Body mass index (BMI) [Ratio] 25.02 kg/m2 Lenin De Los Santos MD Work Phone: [facility] 04-20-2023 14:15-0400 Body weight 70.31 kg Lenin De Los Santos MD Work Phone: [facility] 04-20-2023 14:15-0400 Diastolic blood pressure 79 mm[Hg] Lenin De Los Santos MD Work Phone: [facility] 04-20-2023 14:15-0400 Heart rate 68 /min Lenin De Los Santos MD Work Phone: [facility] 04-20-2023 14:15-0400 Systolic blood pressure 116 mm[Hg] Lenin De Los Santos MD Work Phone: [facility] 04-19-2023 13:39-0400 Body height 167.6 cm Sadie Saline Work Phone: [facility] 04-19-2023 13:39-0400 Body mass index (BMI) [Ratio] 23.4 kg/m2 Sadie Saline Work Phone: [facility] 04-19-2023 13:39-0400 Body weight 65.77 kg Sadie Saline Work Phone: [facility] 01-25-2023 15:24-0400 Body weight 67.68 kg Nicolasa Tan PHOTOENGRAVING HELPER.CNM Work Phone: [facility] 01-25-2023 15:24-0400 Diastolic blood pressure 70 mm[Hg] Nicolasa Tan APRN.CNM Work Phone: [facility] 01-25-2023 15:24-0400 Systolic blood pressure 110 mm[Hg] Nicolasa Tan APRN.CNM Work Phone: [facility] 01-06-2023 10:39-0400 Body temperature 98.01 [degF] Marva Stanley APRN.ENGINE DISPATCHER Work Phone: [facility] 01-06-2023 10:39-0400 Body weight 66.22 kg Marva Stanley APRN.ENGINE DISPATCHER Work Phone: [facility] 01-06-2023 10:39-0400 Diastolic blood pressure 62 mm[Hg] Marva Stanley APRN.ENGINE DISPATCHER Work Phone: [facility] 01-06-2023 10:39-0400 Heart rate 84 /min Marva Stanley APRN.ENGINE DISPATCHER Work Phone: [facility] 01-06-2023 10:39-0400 Respiratory rate 16 /min Marva Stanley APRN.ENGINE DISPATCHER Work Phone: [facility] 01-06-2023 10:39-0400 SaO2% (BldA) [Mass fraction] 95 % Marva Stanley APRN.ENGINE DISPATCHER Work Phone: [facility] 01-06-2023 10:39-0400 Systolic blood pressure 94 mm[Hg] Marva Stanley APRN.ENGINE DISPATCHER Work Phone: [facility] 10-14-2022 08:52-0500 Body height 165.1 cm Lizeth Churchill PA-C Work Phone: [facility] 10-14-2022 08:52-0500 Body mass index (BMI) [Ratio] 24.06 kg/m2 Lizeth Churchill PA-C Work Phone: [facility] 10-14-2022 08:52-0500 Body temperature 98.2 [degF] Lizeth Churchill PA-C Work Phone: [facility] [employer] 10-14-2022 08:52-0500 Body weight 65.59 kg Lizeth Churchill PA-C Work Phone: [employer] 10-14-2022 08:52-0500 Diastolic blood pressure 66 mm[Hg] Lizeth Santanao PA-C Work Phone: [employer] 10-14-2022 08:52-0500 Heart rate 82 /min Lizeth Santanao PA-C Work Phone: [employer] 10-14-2022 08:52-0500 SaO2% (BldA) [Mass fraction] 100 % Lizeth Santanao PA-C Work Phone: [employer] 10-14-2022 08:52-0500 Systolic blood pressure 98 mm[Hg] Lizeth Santanao PA-C Work Phone: [employer] 09-24-2022 22:30-0500 Diastolic blood pressure 72 mm[Hg] Funmilayo Noriega DO Work Phone: [employer] 09-24-2022 22:30-0500 Heart rate 76 /min Funmilayo Noriega DO Work Phone: [employer] 09-24-2022 22:30-0500 Respiratory rate 17 /min Funmilayo Noriega DO Work Phone: [employer] 09-24-2022 22:30-0500 SaO2% (BldA) [Mass fraction] 100 % Funmilayo Noriega DO Work Phone: [employer] 09-24-2022 22:30-0500 Systolic blood pressure 118 mm[Hg] Funmilayo Noriega DO Work Phone: [employer] 09-24-2022 20:06-0500 Body height 165.1 cm Funmilaoy Noriega DO Work Phone: [employer] 09-24-2022 20:06-0500 Body mass index (BMI) [Ratio] 24.46 kg/m2 Funmilayo Noriega DO Work Phone: [employer] 09-24-2022 20:06-0500 Body temperature 98.2 [degF] Funmilayo Noriega DO Work Phone: [employer] 09-24-2022 20:06-0500 Body weight 66.68 kg Funmilayo Noriega DO Work Phone: [facility] [employer] 09-15-2022 10:56-0500 Body height 165.1 cm Lizeth Santanao PA-C Work Phone: [facility] [employer] 09-15-2022 10:56-0500 Body mass index (BMI) [Ratio] 24.3 kg/m2 Lizeth Santanao PA-C Work Phone: [facility] [employer] 09-15-2022 10:56-0500 Body temperature 98.2 [degF] Lizeth Santanao PA-C Work Phone: [facility] [employer] 09-15-2022 10:56-0500 Body weight 66.22 kg Lizeth Santanao PA-C Work Phone: [facility] [employer] 09-15-2022 10:56-0500 Diastolic blood pressure 79 mm[Hg] Lizeth Santanao PA-C Work Phone: [facility] [employer] 09-15-2022 10:56-0500 Heart rate 106 /min Lizeth Churchill PA-C Work Phone: [facility] [employer] 09-15-2022 10:56-0500 SaO2% (BldA) [Mass fraction] 98 % Lizeth Churchill PA-C Work Phone: [facility] [employer] 09-15-2022 10:56-0500 Systolic blood pressure 110 mm[Hg] Lizeth Santanao PA-C Work Phone: 06-12-2022 11:57-0400 Body temperature 97.11 [degF] Mirian Calloway PHOTOENGRAVING HELPER.ENGINE DISPATCHER Work Phone: [facility] 06-12-2022 11:57-0400 Body weight 66.5 kg Mirian Calloway PHOTOENGRAVING HELPER.ENGINE DISPATCHER Work Phone: [facility] 06-12-2022 11:57-0400 Diastolic blood pressure 78 mm[Hg] Mirian Calloway PHOTOENGRAVING HELPER.ENGINE DISPATCHER Work Phone: [facility] 06-12-2022 11:57-0400 Heart rate 66 /min Mirian Elli PHOTOENGRAVING HELPER.ENGINE DISPATCHER Work Phone: [facility] 06-12-2022 11:57-0400 Respiratory rate 18 /min Mirian Elli PHOTOENGRAVING HELPER.ENGINE DISPATCHER Work Phone: [facility] 06-12-2022 11:57-0400 SaO2% (BldA) [Mass fraction] 99 % Mirian Elli PHOTOENGRAVING HELPER.ENGINE DISPATCHER Work Phone: [facility] 06-12-2022 11:57-0400 Systolic blood pressure 110 mm[Hg] Mirian Elli PHOTOENGRAVING HELPER.ENGINE DISPATCHER Work Phone: [facility] 06-03-2022 09:49-0400 Body temperature 98.2 [degF] Bro Praisler-Wood PHOTOENGRAVING HELPER.ENGINE DISPATCHER Work Phone: [facility] 06-03-2022 09:49-0400 Body weight 66.22 kg Bro Praisler-Wood PHOTOENGRAVING HELPER.ENGINE DISPATCHER Work Phone: [facility] 06-03-2022 09:49-0400 Diastolic blood pressure 70 mm[Hg] Bro Praisler-Wood PHOTOENGRAVING HELPER.ENGINE DISPATCHER Work Phone: [facility] 06-03-2022 09:49-0400 Heart rate 112 /min Bro Praisler-Wood PHOTOENGRAVING HELPER.ENGINE DISPATCHER Work Phone: [facility] 06-03-2022 09:49-0400 Respiratory rate 18 /min Bro Praisler-Wood PHOTOENGRAVING HELPER.ENGINE DISPATCHER Work Phone: [facility] 06-03-2022 09:49-0400 SaO2% (BldA) [Mass fraction] 99 % Bro Praisler-Wood PHOTOENGRAVING HELPER.ENGINE DISPATCHER Work Phone: [facility] 06-03-2022 09:49-0400 Systolic blood pressure 122 mm[Hg] Bro Praisler-Wood PHOTOENGRAVING HELPER.ENGINE DISPATCHER Work Phone: [facility] 05-06-2022 17:33-0400 Respiratory rate 16 /min Pam Briggs MD Work Phone: [facility] 05-06-2022 17:10-0400 Body temperature 97 [degF] Pam Briggs MD Work Phone: [facility] 05-06-2022 17:10-0400 Diastolic blood pressure 57 mm[Hg] Pam Briggs MD Work Phone: [facility] 05-06-2022 17:10-0400 Heart rate 75 /min Pam Briggs MD Work Phone: [facility] 05-06-2022 17:10-0400 SaO2% (BldA) [Mass fraction] 93 % Pam Briggs MD Work Phone: [facility] 05-06-2022 17:10-0400 Systolic blood pressure 109 mm[Hg] Pam Briggs MD Work Phone: [facility] 05-05-2022 13:04-0400 Body height 165.1 cm Pam Briggs MD Work Phone: [facility] 05-05-2022 13:04-0400 Body mass index (BMI) [Ratio] 24.13 kg/m2 Pam Briggs MD Work Phone: [facility] 05-05-2022 13:04-0400 Body weight 65.77 kg Pam Briggs MD Work Phone: [facility] 04-27-2022 10:55-0400 Body mass index (BMI) [Ratio] 24 kg/m2 Lars Crump MD Work Phone: [facility] 04-27-2022 10:55-0400 Body temperature 98.2 [degF] Lars Crump MD Work Phone: [facility] 04-27-2022 10:55-0400 Body weight 65.41 kg Lars Crump MD Work Phone: [facility] 04-27-2022 10:55-0400 Diastolic blood pressure 61 mm[Hg] Lars Crump MD Work Phone: [facility] 04-27-2022 10:55-0400 Heart rate 73 /min Lars Crump MD Work Phone: [facility] 04-27-2022 10:55-0400 Respiratory rate 16 /min Lars Crump MD Work Phone: [facility] 04-27-2022 10:55-0400 SaO2% (BldA) [Mass fraction] 97 % Lars Crump MD Work Phone: [facility] 04-27-2022 10:55-0400 Systolic blood pressure 96 mm[Hg] Lars Crump MD Work Phone: [facility] 04-27-2022 10:41-0400 Body height 165.1 cm Lars Crump MD Work Phone: [facility] 03-27-2021 09:12-0400 Body temperature 97.59 [degF] Layne Vogel MD Work Phone: [facility] Work Phone: 03-27-2021 09:12-0400 Diastolic blood pressure 69 mm[Hg] Lay[facility]ogel MD [facility] Work Phone: 03-27-2021 09:12-0400 Heart rate 71 /min Layne Vogel MD [facility] Work Phone: 03-27-2021 09:12-0400 Respiratory rate 18 /min Layne Vogel MD Work Phone: [facility] Work Phone: 03-27-2021 09:12-0400 SaO2% (BldA) [Mass fraction] 95 % Layne Vogel MD Work Phone: [facility] Work Phone: 03-27-2021 09:12-0400 Systolic blood pressure 92 mm[Hg] Layne Vogel MD Work Phone: [facility] Work Phone: 03-26-2021 05:56-0400 Body height 165.1 cm Layne Vogel MD Work Phone: [employer] Work Phone: 03-26-2021 05:56-0400 Body mass index (BMI) [Ratio] 26.26 kg/m2 Layne Vogel MD Work Phone: [employer] Work Phone: 03-26-2021 05:56-0400 Body weight 71.58 kg Layne Vogel MD [facility] Work Phone: 03-19-2021 16:26-0400 Body temperature 97.81 [degF] Layne Vogel MD Work Phone: [employer] Work Phone: 03-19-2021 16:26-0400 Diastolic blood pressure 74 mm[Hg] Lay[facility] Vogel MD [facility] Work Phone: 03-19-2021 16:26-0400 Heart rate 103 /min Layne Vogel MD Work Phone: [facility] Work Phone: 03-19-2021 16:26-0400 SaO2% (BldA) [Mass fraction] 99 % Layne Vogel MD Work Phone: [facility] Work Phone: 03-19-2021 16:26-0400 Systolic blood pressure 102 mm[Hg] Layne Vogel MD Work Phone: [employer] Work Phone: 02-17-2021 08:00-0400 Diastolic blood pressure 77 mm[Hg] Aminah Hemphill MD Work Phone: [facility] Work Phone: 02-17-2021 08:00-0400 Heart rate 100 /min Aminah Hemphill MD Work Phone: [facility] Work Phone: 02-17-2021 08:00-0400 Respiratory rate 18 /min Aminah Hemphill MD Work Phone: [facility] Work Phone: 02-17-2021 08:00-0400 SaO2% (BldA) [Mass fraction] 99 % Aminah Hemphill MD Work Phone: [facility] Work Phone: 02-17-2021 08:00-0400 Systolic blood pressure 117 mm[Hg] Aminah Hemphill MD Work Phone: [facility] Work Phone: 02-17-2021 04:04-0400 Body temperature 99.19 [degF] Aminah Hemphill MD Work Phone: [facility] Work Phone: 02-17-2021 00:14-0400 Body mass index (BMI) [Ratio] 25.63 kg/m2 Aminah Hemphill MD Work Phone: [employer] Work Phone: 02-17-2021 00:14-0400 Body weight 69.85 kg Aminah Hemphill MD Work Phone: [facility] Work Phone: 12-28-2020 14:20-0400 SaO2% (BldA) [Mass fraction] 97 % Jean Hargrove MD Work Phone: [facility] Work Phone: 12-28-2020 14:00-0400 Diastolic blood pressure 78 mm[Hg] Jean Hargrove MD Work Phone: [facility] Work Phone: 12-28-2020 14:00-0400 Heart rate 83 /min Jean Hargrove MD Work Phone: [facility] Work Phone: 12-28-2020 14:00-0400 Respiratory rate 18 /min Jean Hargrove MD Work Phone: [employer] Work Phone: 12-28-2020 14:00-0400 Systolic blood pressure 102 mm[Hg] Jean Hargrove MD Work Phone: [employer] [facility] Work Phone: 12-28-2020 12:27-0400 Body temperature 98.4 [degF] Jean Hargrove MD Work Phone: [employer] Work Phone: 12-28-2020 10:07-0400 Body height 165.1 cm Jean Hargrove MD Work Phone: [employer] Work Phone: 12-28-2020 10:07-0400 Body mass index (BMI) [Ratio] 30.79 kg/m2 Jean Hargrove MD Work Phone: [employer] Work Phone: 12-28-2020 10:07-0400 Body weight 83.92 kg Jean Hargrove MD Work Phone: [employer] Work Phone: 12-06-2020 10:09-0400 Diastolic blood pressure 64 mm[Hg] Nepatli Viktor DO Work Phone: [employer] Work Phone: 12-06-2020 10:09-0400 Systolic blood pressure 105 mm[Hg] Neptali Viktor DO Work Phone: [employer] Work Phone: 12-06-2020 10:01-0400 Body temperature 96.91 [degF] Neptali Tanishaaci DO Work Phone: [employer] Work Phone: 12-06-2020 10:01-0400 Heart rate 78 /min Neptali Viktor DO Work Phone: [employer] Work Phone: 12-06-2020 10:01-0400 SaO2% (BldA) [Mass fraction] 98 % Neptali Tanishayue DO Work Phone: [employer] Work Phone: 12-06-2020 09:26-0400 Respiratory rate 16 /min Neptali Hoang DO Work Phone: [facility] Work Phone: 12-04-2020 14:53-0400 Body height 165.1 cm Neptali Hoang DO Work Phone: [facility] Work Phone: 12-03-2020 15:48-0400 Body mass index (BMI) [Ratio] 30.79 kg/m2 Neptali Hoang DO Work Phone: [facility] Work Phone: 12-03-2020 15:48-0400 Body weight 83.92 kg Neptali Hoang DO Work Phone: [employer] Work Phone: 05-08-2020 22:35-0400 Pulse (Heart Rate) 72 /min Felix Basilio [facility] [place], [place] 05-08-2020 22:35-0400 Respiratory Rate 13 /[facility] [place] 05-08-2020 21:23-0400 BMI (Body Mass Index) 31.62 kg/m2 Felix Basilio [facility], [place] 05-08-2020 21:23-0400 Body Temperature 98.01 [degF] [facility] [place] 05-08-2020 21:23-0400 Body [facility]18 [facility] [place] 05-08-2020 21:23-0400 Height 165.1 cm [facility] [place] 05-08-2020 21:23-0400 Pulse [facility]xim[facility] 100 % [facility] [place] 02-27-2020 23:30-0400 BP Diastolic 70 mm[Hg] [facility] [place] 02-27-2020 23:30-0400 BP Systolic 105 mm[Hg] [facility] , [place] 02-27-2020 23:30-0400 Pulse (Heart Rate) 85 /min [facility] [place] 02-27-2020 23:30-0400 Pulse Oximetry 99 % [facility] [place] 02-27-2020 23:30-0400 Respiratory Rate 16 /min [facility], [place] 02-27-2020 22:22-0400 BMI (Body Mass Index) 29.95 kg/m2 [facility] [place] 02-27-2020 22:22-0400 Body weight 81.65 kg [facility] [place] 02-27-2020 22:22-0400 Height 165.1 cm [facility] , [place] 02-27-2020 21:53-0400 Body Temperature 97.81 [degF] [facility] [place] 02-23-2020 20:25-0400 BP Diastolic 94 mm[Hg] [facility], [place] 02-23-2020 20:25-0400 BP Systolic 132 mm[Hg] [facility], [place] 02-23-2020 20:25-0400 Pulse (Heart Rate) 109 /min [facility], [place] 02-23-2020 20:25-0400 Pulse Oximetry 99 % [facility], [place] 02-23-2020 20:25-0400 Respiratory Rate 16 /min [facility], [place] 02-23-2020 19:16-0400 BMI (Body Mass Index) 30.79 kg/m2 [facility] [place] 02-23-2020 19:16-0400 Body Temperature 98.49 [degF] [facility], [place] 02-23-2020 19:16-0400 Body weight 83.92 kg [facility], [place] 02-23-2020 19:16-0400 Height 165.1 cm [facility], [place] 02-23-2020 15:30-0400 Body Temperature 98.8 [degF] [facility] [place] 02-23-2020 15:30-0400 BP Diastolic 61 mm[Hg] Ricky Sales [facility] [place] , [place] 02-23-2020 15:30-0400 BP Systolic 131 mm[Hg] Ricky Sales [facility] [place] , [place] 02-23-2020 15:30-0400 Pulse (Heart Rate) 98 /min Ricky Sales [facility] [place], [place] 02-23-2020 15:30-0400 Pulse Oximetry 98 % Ricky Sales [facility] [place] , [place] 02-23-2020 15:30-0400 Respiratory Rate 18 /min Ricky Sales [facility] [place] [place] 02-23-2020 08:27-0400 BMI (Body Mass Index) 30.79 kg/m2 Ricky Sales [facility] [place], [place] 02-23-2020 08:27-0400 Body weight 83.92 kg Ricky Sales [facility] [place] , [place] 02-23-2020 08:27-0400 Height 165.1 cm Ricky Sales [facility] [place] , [place] 02-21-2020 14:38-0400 Body Temperature 98.2 [degF] [facility] [place] [place] 02-21-2020 14:38-0400 BP Diastolic 69 mm[Hg] Seferino [facility] [place] , [place] 02-21-2020 14:38-0400 BP Systolic 116 mm[Hg] [facility] [place] , [place] 02-21-2020 14:38-0400 Pulse (Heart Rate) 118 /min [facility] [place] [place] 02-21-2020 14:38-0400 Pulse Oximetry 99 % [facility] [place] 02-21-2020 14:38-0400 Respiratory Rate 14 /min [facility] [place] 02-19-2020 16:51-0400 BMI (Body Mass Index) 29.95 kg/m2 [facility] [place] [place] 02-19-2020 16:51-0400 Body weight 81.65 kg Sfeerino [facility] [place] , [place] 02-19-2020 16:51-0400 Height 165.1 cm Seferino [facility] , [place] 01-26-2020 19:21-0400 Body Temperature 97.9 [degF] Kai Fragoso [facility] [place], [place] 01-26-2020 19:21-0400 BP Diastolic 87 mm[Hg] [facility] [place] 01-26-2020 19:21-0400 BP Systolic 141 mm[Hg] [facility] [place] 01-26-2020 19:21-0400 Pulse (Heart Rate) 96 /min Kai Kern [facility], [place] 01-26-2020 19:21-0400 Pulse Oximetry 100 % [facility] [place] 01-26-2020 19:21-0400 Respiratory Rate 18 /min Kai [facility], [place] 01-22-2020 21:58-0400 BMI (Body Mass Index) 25.79 kg/m2 Kai Kern [facility], [place] 01-22-2020 21:58-0400 Body Temperature 98.2 [degF] [facility] [place] 01-22-2020 21:58-0400 Body weight 70.31 kg [facility] [place] 01-22-2020 21:58-0400 BP Diastolic 83 mm[Hg] Kai [facility], [place] 01-22-2020 21:58-0400 BP Systolic 121 mm[Hg] Kai [facility], [place] 01-22-2020 21:58-0400 Height 165.1 cm Kai [facility], [place] 01-22-2020 21:58-0400 Pulse (Heart Rate) 110 /min Kai Kern [facility], [place] 01-22-2020 21:58-0400 Pulse Oximetry 100 % Kai [facility], [place] 01-22-2020 21:58-0400 Respiratory Rate 22 /min Kai [facility], [place] 01-11-2020 19:17-0400 BP Diastolic 66 mm[Hg] [facility] , [place] 01-11-2020 19:17-0400 BP Systolic 114 mm[Hg] [facility] , [place] 01-11-2020 19:17-0400 Pulse (Heart Rate) 97 /min [facility], [place] 01-11-2020 19:17-0400 Pulse Oximetry 96 % [facility] [place] , [place] 01-11-2020 19:17-0400 Respiratory Rate 18 /min Yenny Kern [facility], [place] 01-11-2020 15:16-0400 BMI (Body Mass Index) 24.96 kg/m2 Yenny Kern [facility], [place] 01-11-2020 15:16-0400 Body Temperature 97.81 [degF] Yenny Kern [facility], [place] 01-11-2020 15:16-0400 Body weight 68.04 kg Yenny Kern [facility] , [place] 01-11-2020 15:16-0400 Height 165.1 cm Yenny Kern [facility] , [place] 09-22-2019 16:22-0500 BP Diastolic 69 mm[Hg] Johnathan Skobeloff [employer] Work Phone: 09-22-2019 16:22-0500 BP Systolic 115 mm[Hg] Johnathan Skobeloff [employer] Work Phone: 09-22-2019 16:22-0500 Pulse (Heart Rate) 100 /min Johnathan Skobeloff [employer] Work Phone: 09-22-2019 16:22-0500 Respiratory Rate 12 /min Johnathan Skobeloff [facility] Work Phone: 09-22-2019 13:55-0500 BMI (Body Mass Index) 24.13 kg/m2 Johnathan Skobeloff [facility] Work Phone: 09-22-2019 13:55-0500 Body Temperature 98.2 [degF] Johnathan Skobeloff [employer] Work Phone: 09-22-2019 13:55-0500 Body weight 65.77 kg Johnathan Skobeloff [employer] Work Phone: 09-22-2019 13:55-0500 Height 165.1 cm Johnathan Skobeloff [employer] Work Phone: 09-22-2019 13:55-0500 Pulse Oximetry 98 % Johnathan Promineo studiosobeloff [employer] Work Phone: 08-14-2019 01:17-0500 Diastolic blood pressure 88 mm[Hg] Yenny Greco MD Work Phone: [facility] Work Phone: 08-14-2019 01:17-0500 Heart rate 93 /min Yenny Greco MD Work Phone: [facility] Work Phone: 08-14-2019 01:17-0500 Respiratory rate 18 /min Yenny Greco MD Work Phone: [facility] Work Phone: 08-14-2019 01:17-0500 Systolic blood pressure 121 mm[Hg] Yenny Greco MD Work Phone: [facility] Work Phone: 08-13-2019 23:12-0500 Body height 165.1 cm Yenny Greco MD Work Phone: [facility] Work Phone: 08-13-2019 23:12-0500 Body mass index (BMI) [Ratio] 23.3 kg/m2 Yenny Greco MD Work Phone: [facility] Work Phone: 08-13-2019 23:12-0500 Body temperature 98.49 [degF] Yenny Greco MD Work Phone: [facility] Work Phone: 08-13-2019 23:12-0500 Body weight 63.5 kg Yenny Greco MD Work Phone: [facility] Work Phone: 08-13-2019 23:12-0500 SaO2% (BldA) [Mass fraction] 100 % Yenny Greco MD Work Phone: [facility] Work Phone: 07-29-2019 00:08-0500 Diastolic blood pressure 78 mm[Hg] Devin Benson MD Work Phone: [facility] Work Phone: 07-29-2019 00:08-0500 Heart rate 81 /min Devin Benson MD Work Phone: [facility] Work Phone: 07-29-2019 00:08-0500 Respiratory rate 14 /min Devin Benson MD Work Phone: [facility] Work Phone: 07-29-2019 00:08-0500 Systolic blood pressure 116 mm[Hg] Devin Benson MD Work Phone: [facility] Work Phone: 07-28-2019 20:03-0500 Body height 165.1 cm Devin Benson MD Work Phone: [facility] Work Phone: 07-28-2019 20:03-0500 Body mass index (BMI) [Ratio] 23.3 kg/m2 Devin Benson MD Work Phone: [facility] Work Phone: 07-28-2019 20:03-0500 Body temperature 98.49 [degF] Devin Benson MD Work Phone: [facility] Work Phone: 07-28-2019 20:03-0500 Body weight 63.5 kg Devin Benson MD Work Phone: [facility] Work Phone: 07-28-2019 20:03-0500 SaO2% (BldA) [Mass fraction] 100 % Devin Benson MD Work Phone: [facility] Work Phone: 07-27-2019 09:19-0500 Body temperature 98.6 [degF] Pam Briggs MD Work Phone: [facility] Work Phone: 07-27-2019 09:19-0500 Diastolic blood pressure 62 mm[Hg] Pam Briggs MD Work Phone: [facility] Work Phone: 07-27-2019 09:19-0500 Heart rate 75 /min Pam Briggs MD Work Phone: [facility] Work Phone: 07-27-2019 09:19-0500 Respiratory rate 16 /min Pam Briggs MD Work Phone: [facility] Work Phone: 07-27-2019 09:19-0500 SaO2% (BldA) [Mass fraction] 99 % Pam Briggs MD Work Phone: [facility] Work Phone: 07-27-2019 09:19-0500 Systolic blood pressure 100 mm[Hg] Pam Briggs MD Work Phone: [facility] Work Phone: 07-25-2019 16:18-0500 Body height 165.1 cm Pam Briggs MD Work Phone: [facility] Work Phone: 07-25-2019 16:18-0500 Body mass index (BMI) [Ratio] 23.96 kg/m2 Pam Briggs MD Work Phone: [facility] Work Phone: 07-25-2019 16:18-0500 Body weight 65.32 kg Pam Briggs MD Work Phone: [facility] Work Phone: 07-19-2019 17:17-0500 Body temperature 98.8 [degF] Clark Guan MD Work Phone: [facility] Work Phone: 07-19-2019 17:17-0500 Diastolic blood pressure 56 mm[Hg] Clark [facility] MD [facility] Work Phone: 07-19-2019 17:17-0500 Heart rate 84 /min Clark Guan MD Work Phone: [employer] Work Phone: 07-19-2019 17:17-0500 Respiratory rate 18 /min Clark Guan MD Work Phone: [facility] Work Phone: 07-19-2019 17:17-0500 SaO2% (BldA) [Mass fraction] 97 % Clark Guan MD Work Phone: [facility] Work Phone: 07-19-2019 17:17-0500 Systolic blood pressure 97 mm[Hg] Clark Guan MD Work Phone: [facility] Work Phone: 07-17-2019 01:13-0500 Body height 165.1 cm Clark Guan MD Work Phone: [facility] Work Phone: 07-17-2019 01:13-0500 Body mass index (BMI) [Ratio] 23.3 kg/m2 Clark Guan MD Work Phone: [facility] Work Phone: 07-17-2019 01:13-0500 Body weight 63.5 kg Clark [facility] MD [facility] Work Phone: 05-25-2019 15:40-0400 BP Diastolic 66 mm[Hg] [facility] [place] 05-25-2019 15:40-0400 BP Systolic 100 mm[Hg] [facility], [place] 05-25-2019 15:40-0400 Pulse (Heart Rate) 108 /min [facility] [place] 05-25-2019 15:40-0400 Respiratory Rate 14 /min [facility] [place] 05-25-2019 14:08-0400 Body Temperature 98.6 [degF] Christopher [facility], [place] 05-25-2019 14:08-0400 Pulse Oximetry 98 % [facility], [place] 05-22-2019 04:57-0400 Body Temperature 99.3 [degF] [facility] [place] 05-22-2019 04:57-0400 BP Diastolic 58 mm[Hg] [facility] , [place] 05-22-2019 04:57-0400 BP Systolic 94 mm[Hg] [facility] , [place] 05-22-2019 04:57-0400 Pulse (Heart Rate) 92 /min [facility] [place] 05-22-2019 04:57-0400 Pulse Oximetry 97 % [facility] [place] 05-22-2019 04:57-0400 Respiratory Rate 16 /min [facility] [place] 05-15-2019 13:45-0400 Height 170.2 cm [place] 05-12-2019 17:20-0400 BMI (Body Mass Index) 23.12 kg/m2 Ricky Kern [facility], [place] 05-12-2019 17:20-0400 Body weight 66.95 kg [facility] , [place] 04-18-2019 22:33-0400 BP Diastolic 60 mm[Hg] [place] 04-18-2019 22:33-0400 BP Systolic 99 mm[Hg] [place] 04-18-2019 22:33-0400 Pulse (Heart Rate) 76 /min Felix Mcdaniel [facility] [place], [place] 04-18-2019 22:33-0400 Pulse Oximetry 97 % Felix Mcdaniel [facility] [place] , [place] 04-18-2019 22:33-0400 Respiratory Rate 16 /min Felix Mcdaniel [facility], [place] 04-18-2019 19:56-0400 BMI (Body Mass Index) 23.3 kg/m2 Felix Mcdaniel [facility], [place] 04-18-2019 19:56-0400 Body Temperature 98.2 [degF] Felix Mcdaniel [facility], [place] 04-18-2019 19:56-0400 Body weight 63.5 kg Felix Mcdaniel [place], [place] Encounters Encounter Date Encounter Type Care Provider Facility Start: 01-10-2025 End: 01-11-2025 Emergency department patient visit Natalia Mark DO Work Phone: [facility] Comment on above: Abdominal pain, unspecified abdominal lo cation (Primary Dx) Start: 12-27-2024 End: 12-27-2024 ambulatory LENIN [facility] Start: 12-26-2024 End: 12-26-2024 ambulatory PHILIPPE CHUA [facility] Start: 12-26-2024 End: 12-26-2024 Subsequent hospital visit by physician Lenin De Los Santos MD Work Phone: [facility] Comment on above: Breast pain, left; Fibrocystic breast changes, bilateral Start: 12-26-2024 End: 12-26-2024 ambulatory [facility] Start: 12-26-2024 End: 12-26-2024 ambulatory [facility] Start: 12-15-2024 End: 12-15-2024 Telephone encounter Cheyanne PATRICK (R)(M) [facility] Comment on above: Appointment Start: 11-24-2024 End: 11-24-2024 Office outpatient visit 25 minutes Scooter Gunderson PA-C Work Phone: Gastroenterology [facility] [place] Comment on above: Gastroparesis (Primary Dx); History of esophagogastroduodenoscopy (EGD); History of colonoscopy; S/P cholecystectomy; Chronic idiopathic constipation Start: 11-24-2024 End: 11-24-2024 [facility] SCOOTER GUNDERSON [facility] Start: 11-09-2024 End: 11-09-2024 Telephone encounter Lenin De Los Santos MD Work Phone: [facility] Comment on above: Appointment Request Start: 11-09-2024 End: 11-09-2024 Office outpatient visit 25 minutes Lenin De Los Santos MD Work Phone: [facility] Comment on above: Breast pain, left (Primary Dx); Fibrocystic breast changes, bilateral Start: 11-09-2024 End: 11-09-2024 ambulatory [facility] Start: 11-08-2024 End: 11-08-2024 Emergency department patient visit Reza Palomo DO Work Phone: [facility] Comment on above: Pleurisy (Primary Dx) Start: 10-21-2024 End: 10-21-2024 Emergency department patient visit Ashely Abdi MD Work Phone: [facility] Comment on above: Influenza A (Primary Dx); Flank pain Start: 10-21-2024 End: 10-21-2024 ambulatory [facility] Facility:[facility] Start: 10-21-2024 End: 10-21-2024 Patient encounter procedure Marva Stanley APRN.ENGINE DISPATCHER Work Phone: [facility] Comment on above: Flank pain (Primary Dx) Start: 10-07-2024 End: 10-07-2024 [facility] Facility:[facility] Start: 10-07-2024 End: 10-07-2024 Office outpatient visit 25 minutes Jaguar Person PHOTOENGRAVING HELPER.ENGINE DISPATCHER Work Phone: [facility] Comment on above: Sore throat (Primary Dx); Strep throat; Viral illness Start: 09-20-2024 End: 09-20-2024 Subsequent hospital visit by physician [facility] Work Phone: Radiology Comment on above: Acute cough [R05.1] Start: 09-20-2024 End: 09-20-2024 [facility] Facility:[facility] Start: 09-20-2024 End: 09-20-2024 Patient encounter procedure Leilani SAMSON Work Phone: [facility] Comment on above: Acute cough (Primary Dx); Acute non-recurrent sinusitis, unspecified location Start: 09-17-2024 End: 09-17-2024 ambulatory [facility] Facility:[facility] Start: 09-17-2024 End: 09-17-2024 Office outpatient visit 25 minutes Jaguar Person APRN.ENGINE DISPATCHER Work Phone: [facility] Comment on above: Sinobronchitis (Primary Dx) Start: 08-01-2024 End: 08-01-2024 ambulatory PHILIPPE CHUA Facility:[facility] Start: 08-01-2024 End: 08-01-2024 Patient encounter procedure Bro Lucio APRN.ENGINE DISPATCHER Work Phone: [facility] Comment on above: Bacterial sinusitis (Primary Dx); Acute effusion of right ear Start: 06-21-2024 End: 06-21-2024 Office outpatient visit 15 minutes Philippe Chua DO Work Phone: [facility] Comment on above: Arthralgia, unspecified joint (Primary D x); Mild asthma without complication, unspecified whether persistent Start: 06-21-2024 End: 06-21-2024 ambulatory [facility] Start: 06-13-2024 End: 06-13-2024 Patient encounter procedure Michael Baxter PhD Work Phone: General Surgery Comment on above: Gastroparesis (Primary Dx) Start: 06-13-2024 End: 06-13-2024 ambulatory CHERELLE RODRIGUEZ Facility:[facility] Start: 06-05-2024 End: 06-05-2024 Emergency department patient visit Bartolo Batres MD Work Phone: [facility] Comment on above: Left lower quadrant abdominal pain (Prim misael Dx); Diarrhea, unspecified type; Dehydration; Constipation, unspecified constipation type Start: 05-30-2024 End: 05-30-2024 Patient encounter procedure Renate Blandon APRN.ENGINE DISPATCHER Work Phone: [facility] Comment on above: Acute otitis media, right (Primary Dx) Start: 05-30-2024 End: 05-30-2024 ambulatory PHILIPPE CHUA Facility:[facility] Start: 05-15-2024 End: 05-15-2024 Subsequent hospital visit by physician Thelma [facility] Work Phone: Radiology Comment on above: Wheezing [R06.2] Start: 05-15-2024 End: 05-15-2024 ambulatory [place] [facility] Facility:[facility] Start: 05-15-2024 End: 05-15-2024 Office outpatient visit 25 minutes Deo Feliciano MD Work Phone: [facility] Comment on above: Wheezing (Primary Dx); Influenza-like illness; Mild intermittent asthma with acute exacerbation Start: 04-25-2024 End: 04-25-2024 Office outpatient visit 25 minutes Lenin De Los Santos MD Work Phone[facility] Comment on above: Fibrocystic breast changes, bilateral (P rimary Dx) Start: 04-25-2024 End: 04-25-2024 ambulatory [facility] Start: 04-20-2024 End: 06-20-2024 Telephone encounter Lenin De Los Santos MD Work Phone: [facility] Comment on above: Appointment Start: 03-16-2024 Telephone encounter Neptali Gonzáles DO Work Phone: Gastroenterology Comment on above: Appointment Start: 03-13-2024 End: 03-13-2024 ambulatory [facility] Facility:[facility] Start: 03-13-2024 End: 03-13-2024 Patient encounter procedure Renate Blandon PHOTOENGRAVING HELPER.ENGINE DISPATCHER Work Phone: [facility] Comment on above: Rhinosinusitis (Primary Dx); Acute otitis media, left Start: 03-09-2024 End: 03-09-2024 ambulatory [facility] Facility:[facility] Start: 03-09-2024 End: 03-09-2024 Office outpatient visit 15 minutes Jaguar Person APRN.ENGINE DISPATCHER Work Phone: [facility] Comment on above: Viral illness (Primary Dx) Start: 03-08-2024 End: 03-08-2024 Office outpatient visit 25 minutes Scooter Gunderson PA-C Work Phone: [facility] Comment on above: Gastroparesis (Primary Dx); Nausea and vomiting, unspecified vomiting type; Chronic abdominal pain; History of esophagogastroduodenoscopy (EGD); History of colonoscopy; Alternating constipation and diarrhea; S/P cholecystectomy Start: 03-08-2024 End: 03-08-2024 ambulatory SCOOTERJAQUELINE MELARAZAYSarah [facility] Start: 03-02-2024 End: 03-02-2024 Subsequent hospital visit by physician Scooter Gunderson PA-C Work Phone: [facility] Nuclear Medicine Comment on above: Nausea and vomiting, unspecified vomitin g type Start: 03-02-2024 End: 03-02-2024 ambulatory SCOOTERJAQUELINE MELARASarah [facility] Start: 02-23-2024 End: 02-23-2024 Office outpatient visit 25 minutes Philippe Redding Toma RAI Work Phone: [facility] Family Medicine Comment on above: LUQ abdominal pain (Primary Dx); Gastroparesis; Psoas muscle strain, right, sequela; Chronic abdominal pain; Mild asthma without complication, unspecified whether persistent; Hiatal hernia with gastroesophageal reflux Start: 02-23-2024 End: 02-23-2024 ambulatory PHILIPPE CHUA [facility] Start: 02-17-2024 End: 02-18-2024 Telephone encounter Scooter Gunderson PA-C Work Phone: [facility] Gastroenterology Comment on above: Other (MRI request) Start: 02-16-2024 End: 02-16-2024 Subsequent hospital visit by physician [facility] Exam Room [address] [facility] [address] Comment on above: Arrived Start: 02-16-2024 End: 02-16-2024 Emergency department patient visit Neptali Perera MD Work Phone: [facility] Comment on above: Abdominal pain, unspecified abdominal lo cation (Primary Dx); Constipation, unspecified constipation type Start: 02-16-2024 End: 05-30-2024 ambulatory Ching Zayas RN [facility] Start: 02-16-2024 End: 05-30-2024 Patient encounter procedure Ching Zayas RN [facility] Start: 02-13-2024 End: 02-13-2024 Emergency department patient visit Trent Carr Facility:[facility] Start: 01-03-2024 ambulatory Snow Norris RN [facility] Start: 01-03-2024 Patient encounter procedure Snow Norris RN [facility] al Communication Start: 12-10-2023 Telephone encounter Scooter Gunderson PA-C Work Phone: [facility] Gastroenterology Start: 12-03-2023 Telephone encounter Scooter Gunderson PA-C Work Phone: [facility] Gastroenterology Start: 12-02-2023 End: 12-02-2023 Subsequent hospital visit by physician Scooter Gunderson PA-C Work Phone: [facility] Comment on above: Gastroparesis; Chronic abdominal pain Start: 11-29-2023 End: 11-29-[address] Tong [address] Work Phone: [facility] Internal Medicine Comment on above: Gastroparesis Start: 11-21-2023 End: 11-21-2023 ambulatory JOSEPH JOHNSON Facility:[facility] Start: 11-21-2023 End: 11-21-2023 Patient encounter procedure Leilani SAMSON Work Phone: [facility] Comment on above: Bacterial sinusitis (Primary Dx); Sore throat Start: 10-21-2023 End: 10-21-2023 Emergency department patient visit [facility] Work Phone: Start: 10-21-2023 End: 10-21-2023 Patient encounter procedure Jaguar Person APRN.CNP Work Phone: [facility] Comment on above: Procedure not carried out (Primary Dx) Start: 10-19-2023 End: 10-19-2023 Patient encounter procedure Denise Bartlett PA-C Work Phone: [facility] Comment on above: Viral URI with cough (Primary Dx) Start: 10-06-2023 Telephone encounter Philippe Chua DO Work Phone: [facility] Family Medicine Comment on above: Record Request Start: 09-14-2023 End: 09-14-2023 Office outpatient new 45 minutes Scooter Gunderson PA-C Work Phone: [facility] Gastroenterology Comment on above: Gastroparesis (Primary Dx); Chronic abdominal pain; History of esophagogastroduodenoscopy (EGD); History of colonoscopy; History of abdominal surgery Start: 08-05-2023 End: 08-05-2023 Emergency department patient visit Jean Odonnell DO Work Phone: [facility] Comment on above: Abdominal pain, epigastric (Primary Dx) Start: 08-05-2023 ambulatory Renate Stallings RN [facility] Clinical Communication Start: 08-05-2023 Patient encounter procedure Renate Stallings RN [facility] Clini viola Communication Start: 07-23-2023 End: 07-23-2023 Patient encounter procedure Leilani Alvarado PA Work Phone: [facility] Comment on above: Flu-like symptoms (Primary Dx); Sore throat Start: 07-15-2023 End: 07-15-2023 Office outpatient visit 25 minutes Lenin De Los Santos MD Work Phone: [facility] General Surgery Comment on above: Generalized abdominal pain (Primary Dx) Start: 07-08-2023 End: 07-08-2023 Subsequent hospital visit by physician [facility] Work Phone: Radiology Comment on above: Acute cough [R05.1] Start: 07-08-2023 End: 07-08-2023 Office outpatient visit 15 minutes Jaguar Person APRN.ENGINE DISPATCHER Work Phone: [facility] Comment on above: Sore throat (Primary Dx); Acute cough; Viral bronchitis Start: 07-04-2023 End: 07-04-2023 Patient encounter procedure Bro Lucio APRN.ENGINE DISPATCHER Work Phone: [facility] Comment on above: Viral bronchitis (Primary Dx) Start: 06-08-2023 End: 06-08-2023 Office outpatient visit 25 minutes Lenin De Los Santos MD Work Phone: [facility] General Surgery Comment on above: Generalized abdominal pain (Primary Dx); Constipation, unspecified constipation type Start: 05-27-2023 End: 05-27-2023 Office outpatient visit 25 minutes Lenin De Los Santos MD Work Phone: [facility] Comment on above: Bilateral nipple discharge (Primary Dx); Constipation, unspecified constipation type; Right lower quadrant abdominal pain Start: 05-25-2023 End: 05-25-2023 Subsequent hospital visit by physician Lenin De Los Santos MD Work Phone: [facility] Comment on above: Bilateral nipple discharge Start: 05-17-2023 End: 05-17-2023 Subsequent hospital visit by physician [facility] Exam Room [address] [facility] [address] Comment on above: Arrived Start: 05-17-2023 End: 05-18-2023 Emergency department patient visit Deo Yates MD Work Phone: [facility] ED Comment on above: Pelvic pain in female (Primary Dx); Lower abdominal pain; Constipation, unspecified constipation type Start: 04-20-2023 End: 04-20-2023 Office outpatient new 30 minutes Lenin De Los Santos MD Work Phone: [facility] Comment on above: Bilateral nipple discharge (Primary Dx) Start: 04-19-2023 End: 04-19-2023 Subsequent hospital visit by physician Sadie Kimbrough Work Phone: [facility] Comment on above: Arrived Start: 03-08-2023 End: 03-08-2023 Subsequent hospital visit by physician Sadie Kimbrough Work Phone: [facility] Comment on above: Unspecified lump in the right breast, un specified quadrant; Unspecified lump in the left breast, unspecified quadrant Start: 01-28-2023 Telephone encounter Nicolasa Tan PHOTOENGRAVING HELPER.CNM Work Phone: OB/Gynecology Comment on above: Results Start: 01-26-2023 Telephone encounter Lyubov Aaron PHOTOENGRAVING HELPER.ENGINE DISPATCHER Work Phone: OB/Gynecology Comment on above: Orders Start: 01-26-2023 End: 01-26-2023 Subsequent hospital visit by physician [facility] Work Phone: Radiology Comment on above: Mass of upper outer quadrant of left bayron ast [N63.21] Start: 01-25-2023 End: 01-25-2023 Patient encounter procedure Nicolasa Tan PHOTOENGRAVING HELPER.CNM Work Phone: OB/Gynecology Comment on above: Mass of upper outer quadrant of left bayron ast (Primary Dx); Fibrocystic breast changes, unspecified laterality; Mastalgia in female Start: 01-06-2023 End: 01-06-2023 Patient encounter procedure Marva Lizeth PHOTOENGRAVING HELPER.ENGINE DISPATCHER Work Phone: [facility] Comment on above: Sore throat (Primary Dx) Start: 10-15-2022 ambulatory Rachell Rosario RN [facility] Communication Start: 10-15-2022 Patient encounter procedure Rachell Rosario RN [facility] Clinic al Communication Comment on above: Infected skin lesion (Primary Dx) Start: 10-14-2022 End: 10-14-2022 Office outpatient visit 15 minutes Lizeth Churchill PA-C Work Phone: [facility] Family Medicine Comment on above: Infected skin lesion (Primary Dx) Start: 09-24-2022 End: 09-24-2022 Subsequent hospital visit by physician [facility] Exam Room [address] [facility] [address] Comment on above: Arrived Start: 09-24-2022 End: 09-24-2022 Emergency department patient visit Funmilayo Noriega DO Work Phone: [facility] Comment on above: Abdominal pain, generalized (Primary Dx) Start: 09-16-2022 Telephone encounter Joseph Johnson DO Work Phone: [facility] Family Medicine Comment on above: Results Start: 09-15-2022 ambulatory Sissy Cancino RN [facility] Start: 09-15-2022 Patient encounter procedure Sissy Cheema Clinical Communication Start: 09-15-2022 End: 09-15-2022 Office outpatient visit 15 minutes Lizeth Churchill PA-C Work Phone: [facility] Family Medicine Comment on above: Rectal bleeding (Primary Dx); Other fatigue; Constipation, unspecified constipation type; Anemia, unspecified type Start: 08-21-2022 Documentation procedure Teresa Petersen PT [facility] Comment on above: PT Discharge (Pt has not been seen in > 30 days and has not called to [facility]. Will discharge at this time.) Start: 06-12-2022 End: 06-12-2022 Patient encounter procedure Mirian Zapienk PHOTOENGRAVING HELPER.ENGINE DISPATCHER Work Phone: [facility] Comment on above: Acute non-recurrent pansinusitis (Primar y Dx) Start: 06-03-2022 End: 06-03-2022 Patient encounter procedure Bro Lucio PHOTOENGRAVING HELPER.ENGINE DISPATCHER Work Phone: [facility] Comment on above: Sore throat (Primary Dx); Wheezing; URI, acute Start: 05-05-2022 End: 05-06-2022 ambulatory [facility] Start: 05-05-2022 End: 05-06-2022 Emergency department patient visit Pam Briggs MD Work Phone: [facility] 7E Oncology Comment on above: Generalized abdominal pain (Primary Dx); Generalized abdominal pain Start: 05-04-2022 End: 05-04-2022 ambulatory UNKNOWN PROVIDER [facility] Start: 04-27-2022 ambulatory UNKNOWN PROVIDER [facility] Start: 04-27-2022 Encounter for other preprocedural examination [facility] Start: 04-27-2022 End: 04-27-2022 Subsequent hospital visit by physician Lars Crump MD Work Phone: [facility] Comment on above: Arrived Start: 03-26-2021 End: 03-27-2021 Subsequent hospital visit by physician Layne Vogel MD Work Phone: [facility] MED SURG Comment on above: Right lower quadrant abdominal pain (Beryl natalia Dx) Start: 03-19-2021 End: 03-19-2021 Patient encounter status Layne Vogel MD Work Phone: [facility] Start: 03-19-2021 End: 03-19-2021 Subsequent hospital visit by physician Layne Vogel MD Work Phone: [facility] Pre-Admit Testing Comment on above: Pre-op testing (Primary Dx) Start: 03-04-2021 End: 03-04-2021 Subsequent hospital visit by physician Naty Moran PA-C Work Phone: [facility] Nuclear Medicine Comment on above: Nausea and vomiting, intractability of v omiting not specified, unspecified vomiting type; Generalized abdominal pain; Weight loss Start: 02-17-2021 End: 02-17-2021 Emergency department patient visit Aminah Hemphill MD Work Phone: [facility] Comment on above: Generalized abdominal pain (Primary Dx) Start: 12-28-2020 End: 12-28-2020 Subsequent hospital visit by physician Jean Hargrove MD Work Phone: [facility] Same Day Surgery Comment on above: Arrived Start: 12-17-2020 End: 12-17-2020 Subsequent hospital visit by physician [facility] Comment on above: Hydronephrosis of right kidney Start: 12-03-2020 End: 12-06-2020 Emergency department patient visit Neptali Hoang DO Work Phone: [facility] MED SURG Comment on above: Abdominal pain, right lower quadrant (Pr imary Dx); Intractable abdominal pain Start: 05-08-2020 End: 05-08-2020 Emergency department patient visit Felix Basilio Work Phone: [facility] Comment on above: Palpitations (Primary Dx) Start: 02-27-2020 End: 02-27-2020 Emergency department patient visit Glenn Meaghan Work Phone: [facility] Comment on above: Vaginal bleeding (Primary Dx); Postoperative pain Start: 02-23-2020 End: 02-23-2020 Emergency department patient visit Kai Fragoso Work Phone: [facility] Comment on above: Abdominal pain, unspecified abdominal lo cation (Primary Dx); Postoperative pain Start: 02-23-2020 End: 02-23-2020 Subsequent hospital visit by physician Ricky Sales Work Phone: [facility] General Surgery Comment on above: Arrived Start: 02-19-2020 End: 02-21-2020 Emergency department patient visit Seferino Agustin Work Phone: [facility] 7E Oncology Comment on above: Pelvic pain (Primary Dx) Start: 01-26-2020 End: 01-26-2020 Emergency department patient visit Kai Mcneilisinger Work Phone: [facility] ED Comment on above: Pain in joint involving right pelvic reg ion and thigh (Primary Dx); Lower abdominal pain Start: 01-22-2020 End: 01-23-2020 Emergency department patient visit Kai Mcneilisinger Work Phone: [facility] Comment on above: Pain in joint involving right pelvic reg ion and thigh (Primary Dx); Lower abdominal pain Start: 01-11-2020 End: 01-11-2020 Emergency department patient visit Yenny Chase Work Phone: [facility] Comment on above: Lower abdominal pain (Primary Dx) Start: 09-22-2019 End: 09-22-2019 Emergency department patient visit Johnathan Peña Work Phone: [facility] Comment on above: Recurrent acute pancreatitis (Primary Dx ) Start: 08-13-2019 End: 08-14-2019 Emergency department patient visit Yenny Greco MD Work Phone: [facility] ED Comment on above: Idiopathic acute pancreatitis without in fection or necrosis (Primary Dx) Start: 07-28-2019 End: 07-29-2019 Emergency department patient visit Devin Benson MD Work Phone: [facility] ED Comment on above: Abdominal pain, epigastric (Primary Dx) Start: 07-24-2019 End: 07-27-2019 Evaluation and management of inpatient Pam Briggs MD Work Phone: [facility] SUR[facility] Comment on above: Acute pancreatitis, unspecified complica tion status, unspecified pancreatitis type (Primary Dx); Intractable abdominal pain; Pancreatitis due to common bile duct stone Start: 07-17-2019 End: 07-19-2019 Emergency department patient visit Clark Guan MD Work Phone: [facility] MED [facility] Comment on above: Right upper quadrant abdominal pain (Beryl natalia Dx); Constipation, unspecified constipation type; Hydronephrosis, unspecified hydronephrosis type; Intractable abdominal pain Start: 05-25-2019 End: 05-25-2019 Emergency department patient visit Christopher Andersen Work Phone: [facility] Comment on above: Visit for wound check (Primary Dx) Start: 05-12-2019 End: 05-22-2019 Evaluation and management of inpatient Ricky Sales Work Phone: [facility] Comment on above: Duodenal mass (Primary Dx) Start: 05-08-2019 End: 05-08-2019 Subsequent hospital visit by physician Joseph Johnson Work Phone: [facility] [employer] [facility] MRI Comment on above: Abdominal mass, unspecified abdominal lo cation Start: 04-18-2019 End: 04-18-2019 Emergency department patient visit Felix Mcdaniel Work Phone: [facility] [place] [facility] Comment on above: Constipation (Primary Dx); Dysuria Start: 09-24-2017 End: 09-24-2017 Ambulatory YENNY MERCHANT Facility:[facility] Start: 05-27-2017 End: 06-02-2017 Patient requested procedure Jaguar Person APRN.CNP Work Phone: [facility] Procedures Date Procedure Procedure Detail Performing Clinician Start: 01-10-2025 Basic metabolic panel calcium total Natalia Mark DO Work Phone: Start: 01-10-2025 Urnls dip stick/tablet reagent auto microscopy Natalia Mark DO Work Phone: Start: 12-27-2024 Follow-up visit Follow-up LENIN DE LOS SANTOS Start: 12-26-2024 Immunoassay analyte qual/semiqual multiple step Scooter Gunderson PA-C Work Phone: Start: 12-26-2024 breast uni real time with image limited Lenin De Los Santos MD Work Phone: Start: 11-08-2024 Urinalysis complete panel - Urine Reza Palomo DO Work Phone: Start: 11-08-2024 Urnls dip stick/tablet rgnt auto w/o microscopy Reza Lugola DO Work Phone: Start: 11-08-2024 Basic metabolic panel calcium total Rezaeugenia Palomo DO Work Phone: Start: 10-21-2024 SARS-COV-2, FLU A/B, AND RSV COMBO Ashely Abdi MD Work Phone: Start: 10-21-2024 Urinalysis complete panel - Urine Ashely Abdi MD Work Phone: Start: 10-21-2024 Urnls dip stick/tablet reagent auto microscopy Ashely Abdi MD Work Phone: Start: 10-07-2024 STREP A MOLECULAR (POC) Mirian Calloway APRN. ENGINE DISPATCHER Work Phone: Start: 09-20-2024 Radiologic exam chest 2 views Leilani SAMSON Work Phone: Start: 06-20-2024 Adult depression screening assessment Lenin De Los Santos MD Work Phone: Start: 06-05-2024 Urinalysis complete panel - Urine Timmy Epstein MD Work Phone: Start: 06-05-2024 Urnls dip stick/tablet rgnt auto w/o microscopy Timmy Epstein MD Work Phone: Start: 06-05-2024 Comprehensive metabolic panel Timmy Epstein MD Work Phone: Start: 05-15-2024 Radiologic exam chest 2 views Deo Feliciano MD Work Phone: Start: 03-02-2024 Gastric emptying imaging study Scooter Gunderson PA-C Work Phone: Start: 02-16-2024 Ct abdomen & pelvis w/o contrast material Neptali Perera MD Work Phone: Start: 02-16-2024 End: 02-16-2024 Comprehensive metabolic panel Neptali Perera MD Work Phone: Start: 02-16-2024 Urinalysis complete panel - Urine Neptali Perera MD Work Phone: Start: 02-16-2024 Urnls dip stick/tablet rgnt auto w/o microscopy Neptali Perera MD Work Phone: Start: 12-02-2023 Radiologic exam upr gi trc single contrast study Scooter Gunderson PA-C Work Phone: Start: 11-21-2023 STREP A MOLECULAR (POC) [facility] Provider Start: 10-21-2023 Computed tomography of abdomen and pelvis with contrast Start: 08-05-2023 Basic metabolic panel calcium total Jean Odonnell DO Work Phone: Start: 07-23-2023 INFLUENZA A&B MOLECULAR (POC) Leilani Alvarado PA Work Phone: Start: 07-23-2023 STREP A MOLECULAR (POC) Leilani doe PA Work Phone: Start: 07-08-2023 Radiologic exam chest 2 views Jaguar Person APRN.ENGINE DISPATCHER Work Phone: Start: 07-08-2023 STREP A MOLECULAR (POC) Jaguar strong APRN.ENGINE DISPATCHER Work Phone: Start: 05-25-2023 Mri breast without&with contrast w/cad bilateral Lenin De Los Santos MD Work Phone: Start: 05-18-2023 Us transvaginal Willian Cardozo MD Work Phone: Start: 05-17-2023 Ct abdomen & pelvis w/contrast material Deo Yates MD Work Phone: Start: 05-17-2023 Basic metabolic panel calcium total Deo Yates MD Work Phone: Start: 05-17-2023 Urinalysis complete panel - Urine Deo Yates MD Work Phone: Start: 05-17-2023 Urnls dip stick/tablet rgnt auto w/o microscopy Deo Yates MD Work Phone: Start: 04-19-2023 Us breast uni real time with image limited Sadie Saline Work Phone: Start: 01-26-2023 Us breast uni real time with image limited Nicolasa Plotts PHOTOENGRAVING HELPER.CNM Work Phone: Start: 01-26-2023 Us breast uni real time with image limited Lyubov Agnieszka PHOTOENGRAVING HELPER.ENGINE DISPATCHER Work Phone: Start: 01-06-2023 STREP A MOLECULAR (POC) Denise Bartlett PA-C Work Phone: Start: 09-24-2022 Ct abdomen & pelvis w/contrast material Funmilayo Noriega DO Work Phone: Start: 09-24-2022 Comprehensive metabolic panel Funmilayo Noriega DO Work Phone: Start: 09-24-2022 Urinalysis complete panel - Urine Funmilayo Noriega DO Work Phone: Start: 09-24-2022 Urnls dip stick/tablet reagent auto microscopy Funmilayo Noriega DO Work Phone: Start: 06-03-2022 STREP A MOLECULAR (POC) Bro lemon PHOTOENGRAVING HELPER.ENGINE DISPATCHER Work Phone: Start: 05-05-2022 Computed tomography of abdomen and pelvis with contrast Pam Briggs MD Work Phone: Start: 05-05-2022 Urnls dip stick/tablet rgnt auto w/o microscopy Pam Briggs MD Work Phone: Start: 05-05-2022 Assay of lipase Pam Briggs MD Work Phone: Start: 05-05-2022 Culture bacterial blood aerobic w/id isolates Pam Briggs MD Work Phone: Start: 05-05-2022 CULTURE, BLOOD 1 Pam Briggs MD Work Phone: Start: 05-05-2022 LACTATE, SEPSIS Pam Briggs MD Work Phone: Start: 05-05-2022 Radiologic exam chest single view Pam Briggs MD Work Phone: Start: 04-27-2022 Antibody screen Lars Crump MD Work Phone: Start: 04-27-2022 Ecg routine ecg w/least 12 lds w/i&r Patsy Nguyễn PHOTOENGRAVING HELPER - ENGINE DISPATCHER Work Phone: Start: 04-27-2022 Blood count hemoglobin Patsy Senior PRN - ENGINE DISPATCHER Work Phone: Start: 04-27-2022 Blood typing serologic abo Patsy Nguyễn PHOTOENGRAVING HELPER - ENGINE DISPATCHER Work Phone: Start: 03-27-2021 BASIC METABOLIC PANEL W/ REFLEX TO MG FOR LOW K Paul Wilkerson MD Work Phone: Start: 03-27-2021 Blood count complete auto&auto difrntl wbc Paul Wilkerson MD Work Phone: Start: 03-26-2021 OPERATIVE REPORT 3m Scanning Start: 03-26-2021 CHRISTOFER STUDIO 3 Layne Banks Work Phone: Start: 03-26-2021 Urine test visual color cmprsn meths Karan Escalante MD Work Phone: Start: 03-19-2021 Ecg routine ecg w/least 12 lds w/i&r Samantha Joe PHOTOENGRAVING HELPER - ENGINE DISPATCHER Work Phone: Start: 03-04-2021 Gastric emptying imaging study Naty Moran PA-C Work Phone: Start: 02-17-2021 Assay of lactate Aminah Hemphill MD Work Phone: Start: 02-17-2021 C-reactive protein Aminah Hemphill MD Work Phone: Start: 02-17-2021 Us transvaginal Aminah Hemphill MD Work Phone: Start: 02-17-2021 Computed tomography of abdomen and pelvis with contrast Aminah Hemphill MD Work Phone: Start: 02-17-2021 Comprehensive metabolic panel Leno Brandt PHOTOENGRAVING HELPER - ENGINE DISPATCHER Work Phone: Start: 02-17-2021 Urnls dip stick/tablet rgnt auto w/o microscopy Leno Rikki PHOTOENGRAVING HELPER - ENGINE DISPATCHER Work Phone: Start: 12-28-2020 OPERATIVE REPORT 3m Scanning Start: 12-28-2020 Urine test visual color cmprsn meths Jadne Stallings MD Work Phone: Start: 12-17-2020 Us retroperitoneal real time w/image limited Elin Raya MD Work Phone: Start: 12-06-2020 CT ABDOMEN PELVIS W WO CONTRAST Davon Siri SALDANAC Work Phone: Start: 12-06-2020 Basic metabolic panel calcium total Lyndsay Baker MD Work Phone: Start: 12-05-2020 Urnls dip stick/tablet rgnt auto w/o microscopy Lyndsay Baker MD Work Phone: Start: 12-05-2020 Basic metabolic panel calcium total Lyndsay Baker MD Work Phone: Start: 12-04-2020 Inf agent det nucleic acid clostridium amp probe Leno Cifuentes MD Work Phone: Start: 12-04-2020 Virus centrifuge enhncd id imfluor stain ea Nava SAMSON-Kendell Work Phone: Start: 12-04-2020 Us transvaginal Jaguar Jansen DO Work Phone: Start: 12-04-2020 Blood count hemoglobin Nava SAMSON-Kendell Work Phone: Start: 12-04-2020 Culture bacterial quanttative colony count urine Leno Cifuentes MD Work Phone: Start: 12-04-2020 Assay of lipase Leno Cifuentes MD Work Phone: Start: 12-03-2020 C-reactive protein Leno Cifuentes MD Work Phone: Start: 12-03-2020 Iadna multiple organisms direct probe tq Marlen Cirilo PA-C Work Phone: Start: 12-03-2020 Radiologic exam chest single view Neptali Hoang DO Work Phone: Start: 12-03-2020 Computed tomography of abdomen and pelvis with contrast Marlen Lockhart PA-C Work Phone: Start: 12-03-2020 Basic metabolic panel calcium total Marlen Tilleyowski PA-C Work Phone: Start: 12-03-2020 Hepatic function panel Marlen Tilleywai hodgson PA-C Work Phone: Start: 12-03-2020 Urnls dip stick/tablet rgnt auto w/o microscopy Marlen Lockhart PA-C Work Phone: Start: 05-08-2020 Assay of magnesium Felix Basilio Work Phone: Start: 05-08-2020 Basic metabolic panel calcium total Felix Basilio Work Phone: Start: 05-08-2020 Blood count complete auto&auto difrntl wbc Felix Basilio Work Phone: Start: 05-08-2020 Ecg routine ecg w/least 12 lds w/i&r Felix Basilio Work Phone: Start: 02-27-2020 Basic metabolic panel calcium total Glenn Meaghan Work Phone: Start: 02-27-2020 Blood count complete auto&auto difrntl wbc Glenn Marilink Work Phone: Start: 02-23-2020 CHRISTOFER GUY 3 Janet Pablo Work Phone: Start: 02-23-2020 Urine test visual color cmprsn meths Jaden Stallings Work Phone: Start: 02-20-2020 CT ABDOMEN PELVIS W CONTRAST Cortes Edwards Work Phone: Start: 02-20-2020 Blood count complete automated Tali Sneed Work Phone: Start: 02-20-2020 Comprehensive metabolic panel Tali Sneed Work Phone: Start: 02-20-2020 PROTIME/INR & PTT Tali Sneed Work Phone: Start: 02-19-2020 ADD ON LAB TEST Blair Moser Work Phone: Start: 02-19-2020 Us transvaginal Blair Moser Work Phone: Start: 02-19-2020 Culture bacterial quanttative colony count urine Tali Sneed Work Phone: Start: 02-19-2020 Urine test visual color cmprsn meths Tali Sneed Work Phone: Start: 02-19-2020 Urnls dip stick/tablet rgnt auto w/o microscopy Tali Sneed Work Phone: Start: 02-19-2020 Iadna multiple organisms direct probe tq Tali Sneed Work Phone: Start: 02-19-2020 Drug screen quant alcohols biomarkers 1 or 2 Tali Sneed Work Phone: Start: 02-19-2020 Basic metabolic panel calcium total Seferino Reyna Antoniokristina Work Phone: Start: 02-19-2020 Blood count complete automated Seferino Alvarezkristina Work Phone: Start: 02-19-2020 Blood typing serologic abo Seferino Maribell Agustin Work Phone: Start: 01-26-2020 Blood count complete auto&auto difrntl wbc Kai Fragoso Work Phone: Start: 01-26-2020 Comprehensive metabolic panel Kai Fragoso Work Phone: Start: 01-26-2020 Urine test visual color cmprsn meths Kai Fragoso Work Phone: Start: 01-26-2020 Urnls dip stick/tablet rgnt auto w/o microscopy Kai Fragoso Work Phone: Start: 01-22-2020 Assay of lipase Kai Fragoso Work Phone: Start: 01-22-2020 Blood count complete auto&auto difrntl wbc Kai Fragoso Work Phone: Start: 01-22-2020 Comprehensive metabolic panel Kai rFagoso Work Phone: Start: 01-22-2020 Urine test visual color cmprsn meths Kia Fragoso Work Phone: Start: 01-22-2020 Urnls dip stick/tablet rgnt auto w/o microscopy Kai Fragoso Work Phone: Start: 01-11-2020 Us transvaginal Yenny Chase Work Phone: Start: 01-11-2020 Urnls dip stick/tablet rgnt auto w/o microscopy Yenny Chase Work Phone: Start: 01-11-2020 Ct abdomen & pelvis w/o contrast material Yenny Chase Work Phone: Start: 01-11-2020 Basic metabolic panel calcium total Yenny Chase Work Phone: Start: 01-11-2020 Blood count complete auto&auto difrntl wbc Yenny Chase Work Phone: Start: 01-11-2020 Gonadotropin chorionic qualitative Yenny Chase Work Phone: Start: 09-22-2019 Radiologic exam abdomen 1 view Johnathan Peña Work Phone: Start: 09-22-2019 Assay of lactate Johnathan Brad Peña Work Phone: Start: 09-22-2019 Assay of lipase Johnathan Brad Peña Work Phone: Start: 09-22-2019 Assay of magnesium Johnathan Brad Peña Work Phone: Start: 09-22-2019 Blood count complete auto&auto difrntl wbc Johnathan M Skobeloff Work Phone: Start: 09-22-2019 Comprehensive metabolic panel Johnathan Peña Work Phone: Start: 09-22-2019 Prothrombin time Johnathan Peña Work Phone: Start: 08-14-2019 Urnls dip stick/tablet rgnt auto w/o microscopy Yenny Greco MD Work Phone: Start: 08-13-2019 Comprehensive metabolic panel Yenny Greco MD Work Phone: Start: 07-28-2019 Ct abdomen & pelvis w/o contrast material Devin Benson MD Work Phone: Start: 07-28-2019 Urnls dip stick/tablet rgnt auto w/o microscopy Devin Benson MD Work Phone: Start: 07-28-2019 Comprehensive metabolic panel Devin Benson MD Work Phone: Start: 07-27-2019 Basic metabolic panel calcium total Brad Cherelle Yu MD Work Phone: Start: 07-26-2019 Basic metabolic panel calcium total Brad Cherelle Yu MD Work Phone: Start: 07-25-2019 Mri abdomen w/o contrast material Nelli Harper PA-C Work Phone: Start: 07-25-2019 Us transvaginal Yanira Rdz Smerker DO Work Phone: Start: 07-25-2019 Iadna multiple organisms direct probe tq Yanira C Smerker DO Work Phone: Start: 07-25-2019 End: 07-25-2019 ADD ON LAB TEST Willian Mohamud DO Work Phone: Start: 07-25-2019 Assay of ethanol Brad Yu MD Work Phone: Start: 07-25-2019 Basic metabolic panel calcium total Brad Yu MD Work Phone: Start: 07-25-2019 Lipid panel Brad Yu MD Work Phone: Start: 07-25-2019 Lipid 1996 panel - Serum or Plasma Scooter Gunderson PA-C Work Phone: Start: 07-24-2019 CT ABDOMEN PELVIS W CONTRAST Pam Briggs MD Work Phone: Start: 07-24-2019 Drug screen class list a Pam Briggs MD Work Phone: Start: 07-24-2019 Urnls dip stick/tablet rgnt auto w/o microscopy Pam Briggs MD Work Phone: Start: 07-24-2019 Basic metabolic panel calcium total Pam Briggs MD Work Phone: Start: 07-24-2019 Hepatic function panel Pam Banks Work Phone: Start: 07-19-2019 HM ENDOSCOPY REPORT 3m Scanning Start: 07-19-2019 Basic metabolic panel calcium total Elielparrish Truongson PA-C Work Phone: Start: 07-18-2019 Basic metabolic panel calcium total Eliel Knight Derick PA-C Work Phone: Start: 07-17-2019 ADD ON LAB TEST Willian Mohamud DO Work Phone: Start: 07-17-2019 Us retroperitoneal real time w/image limited Elielparrish Truongson PA-C Work Phone: Start: 07-17-2019 CANNABINOID, URINE, SCREENING, CRITICAL CARE Aiden Ghotra APRN - ENGINE DISPATCHER Work Phone: Start: 07-17-2019 Drug screen class list a Aiden MELCHOR RN - ENGINE DISPATCHER Work Phone: Start: 07-17-2019 Urnls dip stick/tablet rgnt auto w/o microscopy Aiden Ghotra PHOTOENGRAVING HELPER - ENGINE DISPATCHER Work Phone: Start: 07-17-2019 CT ABDOMEN PELVIS W CONTRAST Aiden Ghotra APRN - ENGINE DISPATCHER Work Phone: Start: 07-17-2019 Comprehensive metabolic panel Aiden Ghotra APRN - ENGINE DISPATCHER Work Phone: Start: 05-25-2019 Urnls dip stick/tablet rgnt auto w/o microscopy Christopher Andersen Work Phone: Start: 05-25-2019 Assay of lipase Christopher Andersen Work Phone: Start: 05-25-2019 Basic metabolic panel calcium total Christopher Andersen Work Phone: Start: 05-25-2019 Blood count complete auto&auto difrntl wbc Christopher Andersen Work Phone: Start: 05-22-2019 BASIC METABOLIC PANEL W/ REFLEX TO MG FOR LOW K Mya Kolb Work Phone: Start: 05-22-2019 Blood count complete auto&auto difrntl wbc Mya Kolb Work Phone: Start: 05-21-2019 BASIC METABOLIC PANEL W/ REFLEX TO MG FOR LOW K Mya Kolb Work Phone: Start: 05-21-2019 Blood count complete auto&auto difrntl wbc Mya Kolb Work Phone: Start: 05-20-2019 BASIC METABOLIC PANEL W/ REFLEX TO MG FOR LOW K Mya Kolb Work Phone: Start: 05-20-2019 Blood count complete auto&auto difrntl wbc Mya Kolb Work Phone: Start: 05-19-2019 BASIC METABOLIC PANEL W/ REFLEX TO MG FOR LOW K Mya Kolb Work Phone: Start: 05-19-2019 Blood count complete auto&auto difrntl wbc Mya Kolb Work Phone: Start: 05-18-2019 Radex gi tract upper w/wo delayed images w/o kub Jeffrey Conley Work Phone: Start: 05-18-2019 BASIC METABOLIC PANEL W/ REFLEX TO MG FOR LOW K Mya Kolb Work Phone: Start: 05-18-2019 Blood count complete auto&auto difrntl wbc Mya Kolb Work Phone: Start: 05-17-2019 BASIC METABOLIC PANEL W/ REFLEX TO MG FOR LOW K Mya Kolb Work Phone: Start: 05-17-2019 Blood count complete auto&auto difrntl wbc Mya Kolb Work Phone: Start: 05-16-2019 OPERATIVE REPORT 3m Scanning Start: 05-16-2019 Urine test visual color cmprsn meths Ricky Sales Work Phone: Start: 05-16-2019 BASIC METABOLIC PANEL W/ REFLEX TO MG FOR LOW K Mya Kolb Work Phone: Start: 05-16-2019 Blood count complete auto&auto difrntl wbc Mya Kolb Work Phone: Start: 05-16-2019 Blood typing serologic abo Ricky Sales Work Phone: Start: 05-15-2019 BASIC METABOLIC PANEL W/ REFLEX TO MG FOR LOW K Mya Kolb Work Phone: Start: 05-15-2019 Blood count complete auto&auto difrntl wbc Mya Kolb Work Phone: Start: 05-15-2019 Prothrombin time Lyndon Cali Gatito Work Phone: Start: 05-14-2019 Radiologic exam abdomen 1 view Jeffrey Conley Work Phone: Start: 05-14-2019 BASIC METABOLIC PANEL W/ REFLEX TO MG FOR LOW K Mya Kolb Work Phone: Start: 05-14-2019 Blood count complete auto&auto difrntl wbc Mya Kolb Work Phone: Start: 05-13-2019 Us transvaginal Jeffrey Conley Work Phone: Start: 05-13-2019 Radex colon barium enema w/wo kub Jeffrey Conley Work Phone: Start: 05-13-2019 Assay of magnesium Jeffrey Parrish Conley Work Phone: Start: 05-13-2019 BASIC METABOLIC PANEL W/ REFLEX TO MG FOR LOW K Mya Kolb Work Phone: Start: 05-13-2019 Blood count complete auto&auto difrntl wbc Mya Kolb Work Phone: Start: 05-12-2019 CT ABDOMEN PELVIS W CONTRAST Jeffreyajith Conley Work Phone: Start: 05-08-2019 Mri abdomen w/o contrast material Joseph Schusterrosalio Work Phone: Start: 04-18-2019 Ct abdomen & pelvis w/o contrast material Felix Mcdaniel Work Phone: Start: 04-18-2019 Basic metabolic panel calcium total Felix Mcdaniel Work Phone: Start: 04-18-2019 Blood count complete automated Felix Mcdaniel Work Phone: Start: 04-18-2019 Urine test visual color cmprsn meths Felix Mcdaniel Work Phone: Start: 04-18-2019 Urnls dip stick/tablet rgnt auto w/o microscopy Felix Mcdaniel Work Phone: H/O: surgery History of abdom inal surgery Scooter Bot[employer]roy [employer] Work Phone: History of cholecystectomy S/P cholecystectomy Scooter Botano[employer]roy [employer] Work Phone: History of cholecystectomy S/P cholecystectomy Scooter [employer]ano[employer]roy PA-[employer] Work Phone: Plan of Treatment Date Care Activity Detail Author Start: 10-28-2070 RSV Immunization for Adults (1 - 1-dose 75+ series) RSV Immunization for Adults (1 - 1-dose 75+ series) [employer] Start: 2055 RSV Immunization aged 60 or older (1 - 1-dose 60+ series) RSV Immunization aged 60 or older (1 - 1-dose 60+ series) [employer] Start: 10-28-2045 Zoster Vaccines (1 of 2) Zoster Vaccines (1 of 2) Anamet[employer] Start: 10-28-2045 Shingles Vaccine (1 of 2) Shingles Vaccine (1 of 2) [employer] Work Phone: Start: 12-15-2027 DTaP/Tdap/Td vaccine (4 - Td or Tdap) DTaP/Tdap/Td vaccine (4 - Td or Tdap) [facility] Start: 12-15-2027 DTaP/Tdap/Td vaccine (4 - Td) DTaP/Tdap/Td vaccine (4 - Td) [place] Start: 12-15-2027 DTaP/Tdap/Td Vaccines (4 - Td or Tdap) DTaP/Tdap/Td Vaccines (4 - Td or Tdap) Start: 12-15-2027 Urine microalbumin profile [facility] Start: 06-20-2025 Depression Screening Depression Screening Start: 04-09-2025 Influenza vaccination Influenza Vaccine (Season Ended) Start: 01-29-2025 End: 01-29-2025 Patient encounter procedure 01/29/2025 1:30 PM EDT [facility] [place] [address] [place] [phone] Scooter Gunderson PA-C [address] [place] [address] [facility] Start: 12-27-2024 End: 12-27-2024 Patient encounter procedure 12/27/2024 1:30 PM EDT Office Visit [facility] [address] [place] [address] Lenin De Los Santos MD [address] [facility] [address] [place] [address] [facility] Start: 12-26-2024 End: 12-26-2024 Patient encounter procedure [facility] Start: 12-20-2024 End: 12-20-2024 Patient encounter procedure 12/20/2024 9:00 AM EDT Office Visit [facility] [address] [place] [address] Lenin De Los Santos MD [address] [place] [address] [facility] Start: 12-15-2024 End: 12-15-2024 Patient encounter procedure [facility] Start: 11-24-2024 End: 11-24-2025 CELIAC PANEL Celiac Panel Lab Routine Chronic idiopathic constipation Expected: 11/24/2024 (Approximate), Expires: 11/24/2025 [facility] Work Phone: Comment on above: Expected: 11/24/2024 (Approximate), Expi res: 11/24/2025 Start: 11-24-2024 End: 11-24-2024 Patient encounter procedure 11/24/2024 9:30 AM EDT [facility] [place] [address] [place] [phone] Scooter Gunderson PA-C [address] [place] [address] [facility] [place] Start: 11-09-2024 End: 01-09-2026 DBT Breast - bilateral diagnostic Bilateral diagnostic mammogram with tomosynthesis Imaging Routine Breast pain, left Fibrocystic breast changes, bilateral Expected: 11/09/2024, Expires: 01/09/2026 Comment on above: Expected: 11/09/2024, Expires: Start: 11-09-2024 End: 01-09-2026 US Breast - left limited Left breast US limited Imaging Routine Breast pain, left Fibrocystic breast changes, bilateral Expected: 11/09/2024, Expires: 01/09/2026 [facility] Work Phone: Comment on above: Expected: 11/09/2024, Expires: Start: 09-08-2024 End: 09-08-2024 Patient encounter procedure [facility] Start: 06-21-2024 End: 06-21-2025 C reactive protein [Mass/volume] in Serum or Plasma C-reactive protein Lab Routine Arthralgia, unspecified joint Expected: 06/21/2024 (Approximate), Expires: 06/21/2025 System Work Phone: Comment on above: Expected: 06/21/2024 (Approximate), Expi res: 06/21/2025 Start: 06-21-2024 End: 06-21-2025 Cobalamin (Vitamin B12) [Mass/volume] in Serum or Plasma Vitamin B12 Lab Routine Arthralgia, unspecified joint Expected: 06/21/2024 (Approximate), Expires: 06/21/2025 Comment on above: Expected: 06/21/2024 (Approximate), Expi res: 06/21/2025 Start: 06-21-2024 End: 06-21-2025 Erythrocyte sedimentation rate Sedimentation rate, automated Lab Routine Arthralgia, unspecified joint Expected: 06/21/2024 (Approximate), Expires: 06/21/2025 Comment on above: Expected: 06/21/2024 (Approximate), Expi res: 06/21/2025 Start: 06-21-2024 End: 06-21-2025 Nuclear Ab [Titer] in Serum by Immunofluorescence DANIEL Lab Routine Arthralgia, unspecified joint Expected: 06/21/2024 (Approximate), Expires: 06/21/2025 Comment on above: Expected: 06/21/2024 (Approximate), Expi res: 06/21/2025 Start: 06-21-2024 End: 06-21-2025 Thyrotropin [Units/volume] in Serum or Plasma TSH Lab Routine Arthralgia, unspecified joint Expected: 06/21/2024 (Approximate), Expires: 06/21/2025 Comment on above: Expected: 06/21/2024 (Approximate), Expi res: 06/21/2025 Start: 06-21-2024 End: 06-21-2025 Thyroxine (T4) free [Mass/volume] in Serum or Plasma T4, free Lab Routine Arthralgia, unspecified joint Expected: 06/21/2024 (Approximate), Expires: 06/21/2025 Comment on above: Expected: 06/21/2024 (Approximate), Expi res: 06/21/2025 Start: 06-21-2024 End: 06-21-2025 Triiodothyronine (T3) Free [Mass/volume] in Serum or Plasma T3, free Lab Routine Arthralgia, unspecified joint Expected: 06/21/2024 (Approximate), Expires: 06/21/2025 Comment on above: Expected: 06/21/2024 (Approximate), Expi res: 06/21/2025 Start: 06-21-2024 End: 06-21-2024 Patient encounter procedure 06/21/2024 8:00 AM EST Office Visit [facility] [address] [place] [address] Philippe Chua DO [address] [place] [address] [facility] Start: 06-14-2024 End: 06-14-2024 Patient encounter procedure 06/14/2024 8:00 AM [facility] Nutrition Therapy [address] [place] [address] new gp consult/empties Nutrition Therapy Comment on above: new gp consult/empties Start: 06-13-2024 End: 06-13-2024 Patient encounter procedure Gastroenterology Comment on above: New gp consult/empties Start: 04-09-2024 Covid-19 Vaccine ( season) Covid-19 Vaccine ( season) [facility] Start: 04-09-2024 Covid-19 Vaccine ( season) Covid-19 Vaccine ( season) [facility] Start: 04-09-2024 Influenza vaccination Start: 03-08-2024 End: 03-08-2024 Patient encounter procedure 03/08/2024 1:30 PM EDT Office Visit [facility] [address] [place] [phone] Scooter Gunderson PA-C [address] [place] [address] [facility] Start: 03-02-2024 End: 03-02-2024 Patient encounter procedure 03/02/2024 9:00 AM EDT Appointment [facility] Nuclear Medicine [address] [place] [address] [place] [phone] Scooter Gunderson PA-C [address] [place] [address] [facility] Nuclear Medicine Start: 02-23-2024 End: 02-23-2024 Patient encounter procedure 02/23/2024 1:30 PM EDT Office Visit [facility] Family Medicine [address] [place] [address] Philippe Chua, [address] [place] [address] [facility] Family Medicine Start: 01-04-2024 End: 01-04-2024 Patient encounter procedure [facility] Start: 12-03-2023 End: 12-02-2024 NM Stomach Views for gastric emptying solid phase W radionuclide PO NM gastric emptying solid Imaging Routine Nausea and vomiting, unspecified vomiting type Expected: 12/03/2023, Expires: 12/02/2024 [facility] Work Phone: Comment on above: Expected: 12/03/2023, Expires: Start: 12-02-2023 End: 12-02-2023 Patient encounter procedure [facility] Start: 11-29-2023 End: 11-29-2023 Clinical Support 11/29/2023 8:30 AM EDT Clinical Support [facility] Internal Medicine [address] [place] [phone] Mary Tong, RD [address] [place] [address] [facility] Internal Medicine Start: 10-21-2023 [facility] Start: 10-13-2023 End: 09-14-2024 Helicobacter pylori Ag [Presence] in Stool by Immunoassay H. pylori Stool Antigen Microbiology Routine Chronic abdominal pain Expected: 10/13/2023 (Approximate), Expires: 09/14/2024 System Work Phone: Comment on above: Expected: 10/13/2023 (Approximate), Expi res: 09/14/2024 Start: 09-14-2023 End: 09-14-2024 XR Abdomen and RF Gastrointestinal tract upper W contrast PO FL upper GI w KUB Imaging Routine Gastroparesis Chronic abdominal pain Expected: 09/14/2023, Expires: 09/14/2024 Comment on above: Expected: 09/14/2023, Expires: Start: 08-09-2023 Behavioral Health Screening Behavioral Health Screening [facility] Start: 08-09-2023 Depression Assessment Depression Assessment [facility] Start: 06-28-2023 End: 06-28-2023 Patient encounter procedure 06/28/2023 8:00 AM EST Office Visit [facility] General Surgery [address] [facility] [address] [place] [phone] Lenin De Los Santos MD [address] [facility] [address] [place] [address] [facility] General Surgery Start: 06-08-2023 End: 06-08-2023 Patient encounter procedure 06/08/2023 2:00 PM EDT Office Visit [facility] General Surgery [address] [facility] [address] [place] [phone] Lenin De Los Santos MD [address] [facility] [address] [place] [address] [facility] General Surgery Start: 05-27-2023 End: 05-27-2023 Patient encounter procedure 05/27/2023 8:30 AM EDT Office Visit [facility] General Surgery [address] [facility] [address] [place] [phone] Lenin De Los Santos MD [address] [place], [place] [id number] [facility] General Surgery Start: 04-20-2023 End: 04-20-2023 Patient encounter procedure 04/20/2023 2:30 PM EDT Office Visit [facility] General Surgery [address] [place] [address] Lenin De Los Santos MD [address] [place] [address] [facility] General Surgery Start: 04-20-2023 End: 06-20-2024 MR Breast - bilateral WO and W contrast IV Bilateral breast MR with and without contrast Imaging Routine Bilateral nipple discharge Expected: 04/20/2023, Expires: 06/20/2024 [facility] Work Phone: Comment on above: Expected: 04/20/2023, Expires: Start: 04-09-2023 Covid-19 Vaccine ( season) Covid-19 Vaccine ( season) [facility] Start: 04-09-2023 Influenza vaccination [facility] Start: 02-01-2023 End: 02-24-2024 US BREAST LTD LEFT US BREAST LTD LEFT Radiology Routine Mass of upper outer quadrant of left breast Expected: 02/01/2023, Expires: 02/24/2024 [facility] Work Phone: Comment on above: Expected: 02/01/2023, Expires: Start: 09-15-2022 End: 09-15-2023 CBC W Auto Differential panel - Blood CBC auto differential Lab Routine Rectal bleeding Other fatigue Expected: 09/15/2022 (Approximate), Expires: 09/15/2023 [facility] Work Phone: Comment on above: Expected: 09/15/2022 (Approximate), Expi res: 09/15/2023 Start: 09-15-2022 End: 09-15-2023 Comprehensive metabolic 1998 panel - Serum or Plasma Comprehensive metabolic panel Lab Routine Rectal bleeding Other fatigue Expected: 09/15/2022 (Approximate), Expires: 09/15/2023 Comment on above: Expected: 09/15/2022 (Approximate), Expi res: 09/15/2023 Start: 08-09-2022 DEPRESSION ASSESSMENT DEPRESSION ASSESSMENT [facility] Start: 05-18-2022 End: 05-18-2022 Patient encounter procedure 05/18/2022 Office Visit Obstetrics and Gynecology Rose De Luna PA [address] [place] [address] [facility] Pelvic [facility] Start: 05-04-2022 End: 05-04-2022 Patient encounter procedure 05/04/2022 Appointment General Surgery Lars Crump MD [address] [place], [place] [id number] [facility] General Surgery Start: 04-09-2022 Influenza vaccination [facility] Start: 03-09-2022 Influenza vaccination Flu vaccine (#1) [facility] Start: 12-12-2021 COVID-19 Vaccine (3 - Booster for Pfizer series) COVID-19 Vaccine (3 - Booster for Pfizer series) [facility] Start: 09-08-2021 COVID-19 VACCINE (3 - Booster for Pfizer series) COVID-19 VACCINE (3 - Booster for Pfizer series) [facility] Start: 09-08-2021 COVID-19 Vaccine (3 - Pfizer series) COVID-19 Vaccine (3 - Pfizer series) Start: 08-09-2021 DEPRESSION ASSESSMENT DEPRESSION ASSESSMENT [facility] Start: 05-02-2021 End: 05-02-2021 ambulatory 05/02/2021 Virtual Visit Gastroenterology Naty Moran PA-C [address] [place] [address] [phone] [facility] Start: 04-09-2021 Influenza vaccination [facility] Work Phone: Start: 04-03-2021 End: 04-03-2021 Patient encounter procedure 04/03/2021 Office Visit General Surgery Layne Vogel MD [address] [place] [address] [phone] Layne Vogel MD Start: 03-26-2021 End: 03-26-2021 Patient encounter procedure 03/26/2021 Appointment General Surgery Layne Vogel MD [address], [address] [place] [address] [phone] [facility] General Surgery Start: 03-20-2021 End: 03-20-2021 Patient encounter procedure 03/20/2021 Office Visit Gastroenterology Naty Moran PA-C [address] [place] [address] [phone] [facility] Start: 03-19-2021 End: 03-19-2021 Patient encounter procedure 03/19/2021 Appointment Pre-Admission Testing Layne Vogel MD [address] [place] [address] [phone] [facility] Pre-Admit Testing Start: 03-19-2021 End: 03-19-2021 ambulatory 03/19/2021 Virtual Visit Gastroenterology Naty Moran PA-C [address] [place] [address] [phone] [facility] Comment on above: Arrived Start: 02-25-2021 End: 02-25-2021 Patient encounter procedure 02/25/2021 Appointment Radiology Naty Moran PA-C [address] [place] [address] [phone] [facility] Nuclear Medicine Start: 02-20-2021 End: 02-20-2021 Patient encounter procedure 02/20/2021 Office Visit General Surgery Layne Vogel MD [address] [place] [address] [phone] Layne Vogel MD Start: 02-18-2021 Screening for Chlamydia trachomatis Chlamydia screen [place], [place] Start: 01-21-2021 Screening for Chlamydia trachomatis Chlamydia screen [place], [place] Start: 12-24-2020 End: 12-24-2020 Patient encounter procedure 12/24/2020 Office Visit Family Medicine Joseph Johnson DO [address] [place] [address] [phone] [facility] Start: 07-25-2020 Chlamydia screen Chlamydia screen [facility] Phone: Start: 07-25-2020 Lipid panel Lipid Panel Start: 07-25-2020 Screening for Chlamydia trachomatis Chlamydia screen [place], [place] Start: 06-01-2020 PAP TESTING PAP TESTING [facility] Start: 06-01-2020 Screening for malignant neoplasm of cervix [facility] Start: 04-09-2020 Influenza vaccination Flu vaccine (#1) [place], [place] Start: 02-22-2020 Hospital Encounter 02/22/2020 Hospital Encounter Pre-Admission Testing Ricky Sales MD [address] [place] [address] [phone] Janet Pablo MD [address] [place] [address] [phone] [facility] Pre-Admit Testing Start: 02-19-2020 End: 02-19-2020 Office Visit 02/19/2020 Office Visit [facility] Joseph Rasmussen DO [address] [place] [address] [phone] [facility] Start: 09-26-2019 End: 09-26-2019 Office Visit 09/26/2019 Office Visit Colon and Rectal Surgery Peter Clarke MD [address] [place] [address] [phone] [facility] Start: 08-22-2019 End: 08-22-2019 Patient encounter procedure 08/22/2019 Office Visit Family Joseph Rasmussen DO [address] [place] [address] [phone] [facility] Start: 08-03-2019 End: 08-03-2019 Patient encounter procedure 08/03/2019 Office Visit [facility] NasimaJoseph rojas, DO [address] [place] [address] [phone] [facility] Start: 07-24-2019 End: 07-24-2019 Patient encounter procedure 07/24/2019 Office Visit [facility] NasimaJoseph rojas, DO [address] [place] [address] [phone] [facility] Start: 05-31-2019 End: 05-31-2019 Office Visit 05/31/2019 Office Visit General Surgery Ricky Sales MD [address] [place] [phone] [facility] Dr[facility] Sales Start: 04-09-2019 Influenza vaccination Flu vaccine (#1) [place] Start: 10-28-2016 Cervical cancer screen Cervical cancer screen [place], [place] Start: 10-28-2016 Screening for malignant neoplasm of cervix [facility] Start: 10-28-2014 Hepatitis B Vaccine (1 of 3 - 19+ 3-dose series) Hepatitis B Vaccine (1 of 3 - 19+ 3-dose series) [facility] Start: 10-28-2014 Hepatitis B Vaccines (1 of 3 - 19+ 3-dose series) Hepatitis B Vaccines (1 of 3 - 19+ 3-dose series) Start: 10-28-2013 Anxiety Screening Anxiety Screening [facility] Start: 10-28-2013 Depression Screening Depression Screening [facility] Start: 10-28-2013 Hepatitis C screening [facility] Start: 10-28-2013 HEPATITIS C SCREENING HEPATITIS C SCREENING [facility] Start: 2011 Chlamydia screen Chlamydia screen [place], [place] Start: 2011 COVID-19 Vaccine (1) COVID-19 Vaccine (1) [facility] Work Phone: Start: 10-28-2010 HIV screen HIV screen [place], [place] Start: 10-28-2010 HIV screening HIV screen [facility] Start: 10-28-2010 HPV vaccine (1 - Female 3-dose series) HPV vaccine (1 - Female 3-dose series) [place] Start: 10-28-2009 PEDS TO ADULT TRANSITION ANNUAL ASSESSMENT PEDS TO ADULT TRANSITION ANNUAL ASSESSMENT [facility] Start: 10-28-2008 Varicella vaccination Varicella Vaccines (1 of 2 - 13+ 2-dose series) Start: 10-28-2008 Varicella Vaccine (1 of 2 - 13+ 2-dose series) Varicella Vaccine (1 of 2 - 13+ 2-dose series) [place] Start: 2007 COVID-19 Vaccine (1) COVID-19 Vaccine (1) [facility] Work Phone: Start: 2007 Depression Screen Depression Screen [facility] Start: 2007 Depression Screening Depression Screening Start: 2007 PEDS TO ADULT TRANSITION INITIAL DISCUSSION PEDS TO ADULT TRANSITION INITIAL DISCUSSION [facility] Start: 10-28-2006 HPV vaccine (1 - 2-dose series) HPV vaccine (1 - 2-dose series) [facility] Start: 10-28-2006 HPV vaccine (1 - Female 2-dose series) HPV vaccine (1 - Female 2-dose series) [facility] Work Phone: Start: 10-28-2006 HPV Vaccines (1 - 2-dose series) HPV Vaccines (1 - 2-dose series) Start: 10-28-2005 Diabetic foot examination Diabetes: Foot Exam Start: 10-28-2005 Glaucoma screening Diabetes: Retinopathy Screening Start: 10-28-2005 Preventive dental service Diabetes: Dental Exam Start: 10-28-2001 Pneumococcal 0-64 years Vaccine (1 - PCV) Pneumococcal 0-64 years Vaccine (1 - PCV) [facility] Start: 10-28-2001 Pneumococcal 0-64 years Vaccine (1 of 1 - PPSV23) Pneumococcal 0-64 years Vaccine (1 of 1 - PPSV23) [place] Start: 10-28-2001 Pneumococcal 0-64 years Vaccine (1 of 2 - PPSV23) Pneumococcal 0-64 years Vaccine (1 of 2 - PPSV23) [facility] Work Phone: Start: 10-28-2001 Pneumococcal vaccination Pneumococcal Vaccine (1 of 2 - PCV) [facility] Start: 10-28-2001 Pneumococcal Vaccine: Pediatrics (0 to 5 Years) and At-Risk Patients (6 to 64 Years) (1 of 2 - PCV) Pneumococcal Vaccine: Pediatrics (0 to 5 Years) and At-Risk Patients (6 to 64 Years) (1 of 2 - PCV) Start: 12-07-2000 IPV Vaccines (2 of 3 - 4-dose series) IPV Vaccines (2 of 3 - 4-dose series) Start: 12-07-2000 Varicella vaccination Varicella Vaccines (1 of 2 - 2-dose childhood series) Start: 10-28-1996 Varicella vaccine (1 of 2 - 2-dose childhood series) Varicella vaccine (1 of 2 - 2-dose childhood series) [facility] Start: 1995 Hemoglobin A1c measurement Diabetes: Hemoglobin A1C Start: 1995 HEPATITIS B (1 of 3 - 3-dose series) HEPATITIS B (1 of 3 - 3-dose series) [facility] Start: 1995 Hepatitis B Vaccine (1 of 3 - 3-dose series) Hepatitis B Vaccine (1 of 3 - 3-dose series) [facility] Start: 1995 Hepatitis B Vaccines (1 of 3 - 3-dose series) Hepatitis B Vaccines (1 of 3 - 3-dose series) Start: 1995 Hepatitis C screening Hepatitis C screen [facility] [employer] Phone: Start: 1995 HIV screening HIV Screening Amitriptyl/Nortriptyline Amitrip tyl/Nortriptylin e Lab Routine 07/26/2019 12:42 AM EST [facility] Work Phone: End: 05-25-2019 Bacteria identified Cx Nom (U) Urine Culture Microbiology STAT One Time for 1 Occurrences starting 05/25/2019 until 05/25/2019 [facility] Comment on above: One Time for 1 Occurrences starting 05/09 until 05/25/2019 Bacteria identified Cx Nom (U) [facility] Basic metabolic 2000 panel - Serum or Plasma [facility] Work Phone: Comment on above: Daily until discontinued starting 2020, 2 completed Daily until disconti nued starting 07/18/2019, 2 completed Daily until disconti nued starting 07/25/2019, 3 completed Basic Metabolic Pane l w/ Reflex to MG Basic Metabolic Panel w/ Reflex to MG Lab Routine Daily until discontinued starting 05/13/2019, 10 completed [employer] [place] Comment on above: Daily until discontinued starting 2018, 10 completed End: 02-23-2020 Blood glucose - POCT Blood glucose - POCT Point of Care Testing STAT One Time for 1 Occurrences starting 02/23/2020 until 02/23/2020 [facility] Comment on above: One Time for 1 Occurrences starting 02/06 until 02/23/2020 End: 01-22-2020 C. Trachomatis / N. Gonorrhoeae, DNA Probe C. Trachomatis / N. Gonorrhoeae, DNA Probe Microbiology Routine One Time for 1 Occurrences starting 01/22/2020 until 01/22/2020 [facility] [place] Comment on above: One Time for 1 Occurrences starting 01/07 until 01/22/2020 C. Trachomatis / N. Gonorrhoeae, DNA Probe C. Trachomatis / N. Gonorrhoeae, DNA Probe Microbiology STAT 01/22/2020 11:32 PM EDT [facility] CBC auto differential CBC auto d ifferential Lab Routine Daily until discontinued starting 05/13/2019, 10 completed [facility] [place] Comment on above: Daily until discontinued starting 2018, 10 completed CBC panel - Blood by Automated count [facility] Work Phone: Comment on above: Daily until discontinued starting 2020, 2 completed Daily until disconti nued starting 07/18/2019, 2 completed Daily until disconti nued starting 07/25/2019, 3 completed CELIAC PANEL Celiac Panel Lab Routine Chronic idiopathic constipation 12/26/2024 8:43 AM EDT [facility] COVID & INFLUENZA A/ B & RSV PCR, ROUTINE COVID & INFLUENZA A/B & RSV PCR, ROUTINE Microbiology Routine Wheezing Influenza-like illness Ordered: 05/15/2024 [facility] Work Phone: Comment on above: Ordered: 05/15/2024 End: 02-21-2020 COVID-19 COVID-19 Lab Routine One Time for 1 Occurrences starting 02/21/2020 until 02/21/2020 [place] Comment on above: One Time for 1 Occurrences starting 02/06 until 02/21/2020 COVID-19 COVID-19 Lab Rou jose daniel 02/21/2020 4:08 PM EDT [place] End: 02-23-2020 Creatinine [Mass/Vol] Creatinine, serum Lab STAT One Time for 1 Occurrences starting 02/23/2020 until 02/23/2020 [place] Comment on above: One Time for 1 Occurrences starting 02/06 until 02/23/2020 End: 12-28-2020 Creatinine [Mass/volume] in Serum or Plasma Creatinine, serum Lab STAT One Time for 1 Occurrences starting 12/28/2020 until 12/28/2020 [employer] Work Phone: Comment on above: One Time for 1 Occurrences starting 12/08 until 12/28/2020 Culture, Blood 1 Culture, Blood 1 Microbiology STAT 05/05/2022 2:43 PM EDT [employer] Work Phone: Culture, Blood 2 Culture, Blood 2 Microbiology STAT 05/05/2022 2:43 PM EDT [employer] Work Phone: End: 12-28-2020 Culture, Urine Culture, Urine Microbiology Routine Once for 1 Occurrences starting 12/28/2020 until 12/28/2020 [employer] Work Phone: Comment on above: Once for 1 Occurrences starting 12/29/19 21 until 12/28/2020 End: 03-08-2023 DBT Breast - bilateral diagnostic Bilateral diagnostic mammogram with tomosynthesis Imaging Routine Unspecified lump in the right breast, unspecified quadrant Unspecified lump in the left breast, unspecified quadrant Once for 1 Occurrences starting 03/08/2023 until 03/08/2023 [facility] [employer] Work Phone: Comment on above: Once for 1 Occurrences starting 03/08/20 23 until 03/08/2023 EKG 12 Lead [place], [place] EKG 12 Lead EKG 12 Lead ECG Routine 04/27/2022 11:38 AM EDT [employer] Work Phone: Electrogastrography dx transcut w/provoctve tstg EGG (ELECTROGASTROGRAPHY) Procedures Routine Gastroparesis Ordered: 03/16/2024 [facility] Work Phone: Comment on above: Ordered: 03/16/2024 End: 05-15-2019 FL ERCP BILIARY AND PANCREATIC S&I FL ERCP BILIARY AND PANCREATIC S&I Imaging Routine Once for 1 Occurrences starting 05/15/2019 until 05/15/2019 [facility] Comment on above: Once for 1 Occurrences starting 05/15/20 19 until 05/15/2019 FL ERCP BILIARY AND PANCREATIC S&I FL ERCP BILIARY AND PANCREATIC S&I Imaging Routine 05/15/2019 11:55 AM yooneT [facility] End: 12-28-2020 FL RETROGRADE PYELOGRAM W WO KUB FL RETROGRADE PYELOGRAM W WO KUB Imaging Routine Once for 1 Occurrences starting 12/28/2020 until 12/28/2020 [employer] Work Phone: Comment on above: Once for 1 Occurrences starting 12/29/19 until 12/28/2020 FL RETROGRADE PYELOG TANA W WO KUB FL RETROGRADE PYELOGRAM W WO KUB Imaging Routine 12/28/2020 11:50 AM [facility]oneT [facility] Work Phone: End: 06-05-2024 Gastrointestinal pathogens panel - Stool by ALLISON with probe detection Gastrointestinal PCR Panel Microbiology STAT Once (Lab) for 1 Occurrences starting 06/05/2024 until 06/05/2024 [facility] [employer] [facility] Work Phone: Comment on above: Once (Lab) for 1 Occurrences starting until 06/05/2024 Helicobacter pylori Ag [Presence] in Stool by Immunoassay H. pylori Stool Antigen Microbiology Routine Chronic abdominal pain 11/15/2023 10:25 AM EDT [facility] Comment on above: 0600, 1000, 1400, 1800, 2200 until disco ntinued starting 05/16/2019 Every 4hr As Needed until discontinued starting 07/25/2019 IgA [Mass/volume] in Serum or Plasma IgA Lab Routine Chronic idiopathic constipation Ordered: 12/26/2024 [facility] [employer] Comment on above: Ordered: 12/26/2024 Incentive spirometry Incentive s pirometry Respiratory Care Routine Q1H PRN until discontinued starting 02/23/2020 [facility] Comment on above: Q1H PRN until discontinued starting 02/06 Initiate Oxygen Ther apy Protocol [facility] Comment on above: Daily until discontinued starting 2018 Daily until disconti nued starting 02/19/2020 Daily until disconti nued starting 02/23/2020 Daily until disconti nued starting 07/25/2019 End: 12-28-2020 Intermittent pulse oximetry Pulse Oximetry Spot Check Respiratory Care Routine One Time for 1 Occurrences starting 12/28/2020 until 12/28/2020 [employer] Work Phone: Comment on above: One Time for 1 Occurrences starting 12/08 until 12/28/2020 Lipase [Enzymatic activity/volume] in Serum or Plasma Lipase Lab Routine Daily until discontinued starting 07/26/2019, 2 completed [employer] Work Phone: Comment on above: Daily until discontinued starting 2018, 2 completed End: 02-24-2024 PHILIPP DIAGNOSTIC BILATERAL PHILIPP DIAGNOSTIC BILATERAL Radiology Routine Mass of upper outer quadrant of left breast 1 Occurrences starting 01/25/2023 until 02/24/2024 [facility] Work Phone: Comment on above: 1 Occurrences starting 01/25/2023 until 02/24/2024 Oxygen therapy [Mini mum Data Set] [employer] [facility] Work Phone: Comment on above: Daily until discontinued starting 2020 Daily until disconti nued starting 12/28/2020 Daily until disconti nued starting 03/26/2021 Oxygen therapy [Mini mum Data Set] Initiate Oxygen Therapy Protocol Respiratory Care Routine Daily until discontinued starting 05/05/2022 [employer] Work Phone: Comment on above: Daily until discontinued starting 2021 Patient Education ED Abdominal P ain Unkn Cause Fem [facility] Work Phone: Patient referral [facility] Work Phone: Phase I & II - meter ed glucose [facility] Comment on above: As Needed until discontinued starting As Needed until disc ontinued starting 12/28/2020 End: 02-19-2020 POCT urine POCT urine Point of Care Testing STAT One Time for 1 Occurrences starting 02/19/2020 until 02/19/2020 [facility] Comment on above: One Time for 1 Occurrences starting 02/06 until 02/19/2020 End: 02-23-2020 Potassium w/ Reflex to Magnesium Potassium w/ Reflex to Magnesium Lab Routine One Time for 1 Occurrences starting 02/23/2020 until 02/23/2020 [facility] Comment on above: One Time for 1 Occurrences starting 02/06 until 02/23/2020 End: 12-28-2020 Potassium w/ Reflex to Magnesium Potassium w/ Reflex to Magnesium Lab Routine One Time for 1 Occurrences starting 12/28/2020 until 12/28/2020 [facility] Work Phone: Comment on above: One Time for 1 Occurrences starting 12/08 until 12/28/2020 End: 02-23-2020 Protime-INR Protime-INR Lab STAT One Time for 1 Occurrences starting 02/23/2020 until 02/23/2020 [facility] Comment on above: One Time for 1 Occurrences starting 02/06 until 02/23/2020 End: 12-28-2020 Protime-INR Protime-INR Lab STAT One Time for 1 Occurrences starting 12/28/2020 until 12/28/2020 [facility] Work Phone: Comment on above: One Time for 1 Occurrences starting 12/08 until 12/28/2020 End: 02-23-2020 Pulse Oximetry Spot Check Pulse Oximetry Spot Check Respiratory Care Routine One Time for 1 Occurrences starting 02/23/2020 until 02/23/2020 [facility] [place] Comment on above: One Time for 1 Occurrences starting 02/06 until 02/23/2020 End: 05-16-2019 RF Cholangio/Pancreato Intraop RF Cholangio/Pancreato Intraop Imaging Routine Once for 1 Occurrences starting 05/16/2019 until 05/16/2019 [facility] Comment on above: Once for 1 Occurrences starting 05/16/20 19 until 05/16/2019 RF Cholangio/Pancrea to Intraop RF Cholangio/Pancreato Intraop Imaging Routine 05/16/2019 1:15 PM EDT [facility] [place] Spirometry panel Incentive veronica metry Respiratory Care Routine Q1H PRN until discontinued starting 12/28/2020 [facility] Work Phone: Comment on above: Q1H PRN until discontinued starting 12/08 End: 05-16-2019 Surgical Pathology Surgical Pathology Lab Routine Once for 1 Occurrences starting 05/16/2019 until 05/16/2019 [facility] Comment on above: Once for 1 Occurrences starting 05/16/20 19 until 05/16/2019 Surgical Pathology [place], [place] End: 02-23-2020 Surgical Pathology Surgical Pathology Lab Routine Once for 1 Occurrences starting 02/23/2020 until 02/23/2020 [place] Comment on above: Once for 1 Occurrences starting 02/23/20 20 until 02/23/2020 End: 03-26-2021 Surgical Pathology Surgical Pathology Lab Routine Once for 1 Occurrences starting 03/26/2021 until 03/26/2021 [facility] Work Phone: Comment on above: Once for 1 Occurrences starting 03/26/20 21 until 03/26/2021 End: 07-19-2019 Surgical Pathology Surgical Pathology Lab Routine Once for 1 Occurrences starting 07/19/2019 until 07/19/2019 [facility] Work Phone: Comment on above: Once for 1 Occurrences starting 07/19/20 19 until 07/19/2019 End: 07-17-2019 URINE DRUG SCREEN URINE DRUG SCREEN Lab Add-On One Time for 1 Occurrences starting 07/17/2019 until 07/17/2019 [facility] Work Phone: Comment on above: One Time for 1 Occurrences starting 04/2019 until 07/17/2019 End: 07-25-2019 URINE DRUG SCREEN URINE DRUG SCREEN Lab Add-On One Time for 1 Occurrences starting 07/25/2019 until 07/25/2019 [facility] Work Phone: Comment on above: One Time for 1 Occurrences starting 07/09 until 07/25/2019 End: 03-08-2023 US Breast - bilateral limited Bilateral breast US limited Imaging Routine Unspecified lump in the right breast, unspecified quadrant Unspecified lump in the left breast, unspecified quadrant Once for 1 Occurrences starting 03/08/2023 until 03/08/2023 [facility] Work Phone: Comment on above: Once for 1 Occurrences starting 03/08/20 23 until 03/08/2023 End: 01-22-2020 VAGINAL PATHOGENS DNA PANEL VAGINAL PATHOGENS DNA PANEL Microbiology STAT Once for 1 Occurrences starting 01/22/2020 until 01/22/2020 [place] Comment on above: Once for 1 Occurrences starting 01/22/20 20 until 01/22/2020 VAGINAL PATHOGENS DN A PANEL VAGINAL PATHOGENS DNA PANEL Microbiology STAT 01/22/2020 11:26 PM EDT [facility] Immunizations Immunization Date Immunization Notes Care Provider Julisa [facility] 06-21-2024 Pneumococcal Conjuga te PCV20, Pf (Prevnar 20) Philippe Chua DO Work Phone: 07-14-2021 Pfizer SARS-CoV-2 Vaccination Rachell Rosario RN 06-23-2021 Pfizer SARS-CoV-2 Vaccination Rachell Rosario RN 07-27-2019 influenza, injectabl e, quadrivalent, preservative free Pam Briggs MD Work Phone: [facility] 07-27-2019 influenza virus vaccine, unspecified formulation Rachell Rosario RN 07-26-2019 influenza quadrivale nt split vaccine (FLUZONE;FLUARIX;FLULAV AL;AFLURIA) injection 0.5 mL Pam Briggs MD Work Phone: [facility] Work Phone: 12-14-2017 tetanus toxoid, redu estefania diphtheria toxoid, and acellular pertussis vaccine, adsorbed Pam Briggs MD Work Phone: [facility] Work Phone: 02-26-2016 tetanus toxoid, redu estefania diphtheria toxoid, and acellular pertussis vaccine, adsorbed Pam Briggs MD Work Phone: [facility] Work Phone: 11-09-2000 diphtheria, tetanus toxoids and acellular pertussis vaccine, unspecified formulation Pam Briggs MD Work Phone: [facility] Work Phone: 11-09-2000 measles, mumps and rubella virus vaccine Pam Briggs MD Work Phone: [facility] Work Phone: 11-09-2000 poliovirus vaccine, inactivated Pam Briggs MD Work Phone: [facility] Work Phone: 11-09-2000 poliovirus vaccine, unspecified formulation Lenin De Los Santos MD Work Phone: [facility] Payers Date Payer Category Payer Self-pay [id number] 2022 Medicaid O [facility] MEDICAID ODM [id number] 2017 Medicaid [id number] 2017 Unknown [id number] 2016 Medicaid [id number] 2016 Private Health Insurance xxx [id number] 2016 Private Health Insurance xxx [id number] 1995 Unknown [id number] 1995 Unknown [id number] 1995 Unknown [id number] Private Health Insurance Unknown [id number] Unknown [id number] Social History Date Type Detail Facility Start: 04-27-2019 End: 04-20-2023 Tobacco smoking status [facility] Former smoker [facility] Start: 05-04-2017 End: 03-24-2022 History of tobacco use Current smoker [place] Start: 04-27-2019 End: 06-20-2024 Alcohol intake Yes [place] Start: 02-16-2019 End: 01-13-2021 History SDOH Alcohol Frequency 2 [place] Start: 02-16-2019 End: 01-13-2021 History SDOH Social Connections Phone 5 [place] Start: 02-16-2019 End: 01-13-2021 History SDOH Social Connections [employer] [facility] [place] Start: 02-16-2019 History SDOH Social Connections Living 7 [place] Start: 02-16-2019 History SDOH Physical Activity MPS 15 [place] Start: 02-16-2019 History SDOH Stress 3 [place] Start: 02-16-2019 History SDOH Financial 4 [place] Start: 09-28-2018 Alcohol Comment occassionally [place] Start: 1995 Sex Assigned At Not on file [place] Start: 02-19-2020 End: 06-13-2024 Tobacco use and exposure Never used [employer] Start: 02-19-2020 End: 01-10-2025 Alcohol intake Current drinker of alcohol (finding) [employer] Work Phone: Start: 04-17-2022 End: 04-20-2023 Exposure to SARS-CoV-2 (event) [facility] Exposure to SARS-CoV -2 (event) Unable to assess [employer] Start: 03-19-2021 Alcohol Comment one or two drinks a month [employer] Work Phone: Start: 05-04-2017 End: 03-24-2022 History of tobacco use Cigarette Smoker [employer] Work Phone: Start: 04-27-2022 Tobacco [facility] Start: 04-23-2020 Alcohol Comment rarely [facility] Start: 06-12-2022 End: 04-20-2023 Tobacco use and exposure Former smokeless tobacco user [facility] Start: 10-14-2022 Alcohol Comment social Start: 1995 Sex Assigned At Female Start: 10-14-2022 End: 06-20-2024 History of Social function [facility] Start: 06-11-2022 Gender identity Identifies as female gender (finding) Start: 06-11-2022 Sexual orientation Heterosexual (finding) Start: 04-20-2023 Tobacco Comment Vape Use How often to you hav e a drink containing alcohol? Never How many standard drinks containing alcohol do you have on a typical day? Patient does not drink Start: 10-21-2023 Tobacco smoking status NHIS Unknown if ever smoked [facility] Start: 07-17-2020 None [facility] Start: 07-17-2020 With Family [facility] Start: 07-11-2020 Cigarettes [facility] Start: 03-09-2022 Sex Female (finding) Start: 06-13-2024 Tobacco smoking status NHIS Occasional tobacco smoker [facility] Has the [employer] threatened to shut off services in your home in past 12Mo No Are you now , , , , never or living with a partner? Living with partner [facility] How often to you hav e a drink containing alcohol? Monthly or less [facility] How many standard drinks containing alcohol do you have on a typical day? 1 or 2 [facility] Do you feel stress - tense, restless, nervous, or anxious, or unable to sleep at night because your mind is troubled all the time - these days [OSQ] Not at all [facility] (I/We) worried carolyn er (my/our) food would run out before (I/we) got money to buy more. Never true [facility] How often to you hav e a drink containing alcohol? 2-4 times a month [facility] How many standard drinks containing alcohol do you have on a typical day? 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 Plan for overcoming my barriers: study Confidence: 03/18 Anticipated Goal Completion Date: 2021 Functional Status Date Assessment Result Facility 01-10-2025 Total score [AUDIT-C] 3 01/11/20 25 9:09 PM Aj Wells RN 09-24-2017 Are you deaf, or do you have serious difficulty hearing No 09/24/2017 7:29 PM Rosaline Celaya, SYLVIA No [facility] 09-24-2017 Are you blind, or do you have serious difficulty seeing, even when wearing glasses No 09/24/2017 7:29 PM Rosaline Celaya, SYLVIA No [facility] 09-24-2017 Do you have serious difficulty walking or climbing stairs No 09/24/2017 7:29 PM Rosaline Celaya, SYLVIA No [facility] 09-24-2017 Do you have difficul ty dressing or bathing No 09/24/2017 7:29 PM Rosaline Celaya, SYLVIA No [facility] 09-24-2017 Because of a physica l, mental, or emotional condition, do you have difficulty doing errands alone such as visiting a physician's office or shopping No 09/24/2017 7:29 PM Rosaline Celaya RN No [facility] Mental Status Date Assessment Result Facility 09-24-2017 Because of a physica l, mental, or emotional condition, do you have serious difficulty concentrating, remembering, or making decisions No 09/24/2017 7:29 PM Rosaline Celaya RN No [facility] Clinical Notes 12-30-2017 to 01-10-2025 Discharge InstructionsNatalia Mark DO - 01/10/2025 8:14 PM EDGordon Mark DO - 01/10/2025 8:14 PM EDTScooter Gunderson PA-C - 11/24/2024 9:30 AM EDTPatient Instructions Note Date & Type Note Facility 01-10-2025 Hospital Discharge instructions Natalia Mark DO - 01/10/2025 11:41 PM EDT Continue to take your medication as prescribed, [id number] medicine needed for symptom control. Zofran for nausea and vomiting. Follow-up with your GI doctor for continued issues. documented in this encounter 01-10-2025 Emergency department Note EMERGENCY DEPARTMENT ENCOUNTER Pt Name: Socorro Gonsales Birthdate 1995 Date of evaluation: 01/10/2025 ED Provider: Natalia Mark DO CHIEF COMPLAINT Chief Complaint Patient presents with Abdominal Pain Right Side both quadrants HISTORY OF PRESENT ILLNESS (Location/Symptom, Timing/Onset, Context/Setting, Quality, Duration, Modifying Factors, Severity) Note limiting factors. I wore appropriate PPE for the entirety of this encounter. HPI Socorro Gonsales is a 29 y.o. who presents to the emergency department for right-sided abdominal pain. Patient endorses right-sided upper and lower abdominal pain with nausea and vomiting since 4 PM. She endorses episode of emesis around 7 PM x 2 endorsed may be some blood streaking. She states that pain initially started as dull is more sharp. She says it is somewhat similar to her history of gastroparesis and IBS constipation which has improved since gastroenterology put her on Linzess. Patient took Tylenol prior to arrival without improvement. She also has a history of pancreatitis and GERD and hiatal hernia. Abdominal surgical history includes tubal ligation, partial hysterectomy multiple exploratory laparotomies and lysis of adhesions cystoscopy, appendectomy, cholecystectomy. Patient endorses tolerating p.o. earlier today she denies any fevers travel out of foods trauma rash UTI symptoms constipation diarrhea. Patient had a bowel movement at 7 PM which was normal. Nursing Notes were reviewed. Limitations to history: Outside historians: REVIEW OF SYSTEMS Review of Systems Pertinent positives and negatives as per HPI PAST MEDICAL HISTORY Medical History[1] SURGICAL HISTORY Surgical History[2] CURRENT MEDICATIONS Previous Medications ACETAMINOPHEN EXTRA STRENGTH 500 MG TABLET Take 1,000 mg by mouth every 6 hours as needed. ALBUTEROL 108 (90 BASE) MCG/ACT INHALER Inhale 2 puffs every 6 hours as needed. FLUTICASONE (FLONASE) 50 MCG/ACT NASAL SPRAY 2 sprays in the morning. LINACLOTIDE (LINZESS) 145 MCG CAPSULE Take 1 capsule (145 mcg) by mouth every morning (before breakfast). Do not crush or chew. ALLERGIES Keflex [cephalexin], Morphine, Ondansetron, Seasonal ic [octacosanol], Codeine, Gabapentin, and Latex FAMILY HISTORY Family History[3] SOCIAL HISTORY Social History[4] PHYSICAL EXAM ED Triage Vitals [01/10/25 2102] Temp Heart Rate Resp BP 36.6 C (97.8 F) 73 20 107/71 SpO2 Temp Source Heart Rate Source Patient Position 100 % Oral Monitor Lying BP Location FiO2 (%) Right arm -- Physical Exam Vitals and nursing note reviewed. Constitutional: General: She is awake. She is not in acute distress. Appearance: She is not toxic-appearing. HENT: Head: Normocephalic and atraumatic. Mouth/Throat: Pharynx: Oropharynx is clear. Eyes: General: No scleral icterus. Pupils: Pupils are equal, round, and reactive to light. Cardiovascular: Rate and Rhythm: Normal rate and regular rhythm. Pulmonary: Effort: Pulmonary effort is normal. No respiratory distress. Breath sounds: Normal breath sounds. Abdominal: General: Bowel sounds are normal. Palpations: Abdomen is soft. Tenderness: There is abdominal tenderness in the right upper quadrant and right lower quadrant. There is no right CVA tenderness, left CVA tenderness, guarding or rebound. Musculoskeletal: General: Normal range of motion. Skin: General: Skin is warm and dry. Neurological: General: No focal deficit present. Mental Status: She is alert and oriented to person, place, and time. Psychiatric: Mood and Affect: Mood normal. Behavior: Behavior normal. DIAGNOSTIC RESULTS RADIOLOGY (Per Emergency Physician): Interpretation per the Radiologist below, if available at the time of this note: No orders to display LABS: Labs Reviewed COMPLETE URINALYSIS WITH REFLEX TO CULTURE - Abnormal Result Value Color, Urine Light Yellow Clarity, Urine Turbid (*) pH, Urine 7.5 Leukocytes, Urine Negative Nitrite, Urine Negative Protein, Urine 10 (*) Glucose, Urine Normal Bilirubin, Urine Negative Ketones, Urine Negative Urobilinogen, Urine Normal Blood, Urine Negative Volume, Urine 12 mL RBC, Urine 0-2 WBC, Urine 0-2 Squamous Epithelial, Urine 3-5 Bacteria, Urine Few (*) Mucus, Urine Moderate (*) Amorphous Phosphates, Urine Many (*) SPECIFIC GRAVITY OF URINE (NUMERIC) 1.031 (*) Narrative: A specimen with <=10 WBC is not consistent with inflammation. This specimen will not reflex to a urine culture. BASIC METABOLIC PANEL - Abnormal SODIUM 141 POTASSIUM 4.2 CHLORIDE 112 (*) CARBON DIOXIDE 20 (*) UREA NITROGEN 13 CREATININE 0.78 GLUCOSE 86 CALCIUM 9.1 ANION GAP 9 eGFR >90.0 CBC WITH AUTO DIFFERENTIAL - Normal Auto WBC 7.3 RBC 4.34 Hemoglobin 13.5 Hematocrit 38.9 MCV 89.6 MCH 31.1 MCHC 34.7 RDW 12.5 Platelets 330 MPV 9.7 nRBC 0.0 Neutrophils Relative 49.4 Lymphocytes Relative 40.9 Monocytes Relative 6.6 Eosinophils Relative 2.5 Basophils Relative 0.5 Immature Grans % 0.1 Neutrophils Absolute 3.6 Lymphocytes Absolute 3.0 Monocytes Absolute 0.5 Eosinophils Absolute 0.2 Basophils Absolute 0.0 Immature Grans Absolute 0.0 LIPASE - Normal LIPASE 54 HEPATIC FUNCTION PANEL - Normal BILIRUBIN, TOTAL 0.4 BILIRUBIN, DIRECT 0.1 ALKALINE PHOSPHATASE 54 AST (SGOT) 29 ALT 15 ALBUMIN 4.3 TOTAL PROTEIN 8.0 LACTIC ACID WITH REFLEX - Normal LACTIC ACID 0.8 All other labs were within normal range or not returned as of this dictation. EMERGENCY DEPARTMENT COURSE and DIFFERENTIAL DIAGNOSIS/MDM: Vitals: Vitals: 01/10/25 2102 BP: 107/71 BP Location: Right arm Patient Position: Lying Pulse: 73 Resp: 20 Temp: 36.6 C (97.8 F) TempSrc: Oral SpO2: 100% Weight: 68 kg (150 lb) Height: 1.651 m (5' 5) Medications prochlorperazine (Compazine) injection 10 mg (10 mg IntraVENous Given 01/10/252210) HYDROmorphone (Dilaudid) injection 0.5 mg (0.5 mg IntraVENous Given 01/10/252211) diphenhydrAMINE (BENADryl) injection 12.5 mg (12.5 mg IntraVENous Given 01/10/252258) diphenhydrAMINE (BENADryl) injection 25 mg (25 mg IntraVENous Given 01/10/25 315) 29-year-old female presented to the ED for right sided abdominal pain with nausea and vomiting detailed above. Exam as above. Differential diagnosis includes pancreatitis, gastroparesis, gastritis, GERD, electrolyte abnormality. Patient given medication for pain and nausea Benadryl for jittery side effect likely from Compazine with improvement in symptoms. Workup revealed CBC within normal range without leukocytosis leukopenia or anemia, lactic acid within normal range BMP grossly unremarkable without significant electrolyte or renal function derangement hepatic function within normal range lipase within normal range, UA with few bacteria denies UTI symptoms not consistent with infection. On reevaluation patient feeling better tolerating p.o. Patient vital stable. Patient stable for discharge with supportive care, return precautions outpatient follow-up with gastroenterology for continued management of chronic abdominal pain. Patient in agreement with plan. SCREENINGS PROCEDURES: Unless otherwise noted below, none Procedures CRITICAL CARE TIME FINAL IMPRESSION 1. Abdominal pain, unspecified abdominal location DISPOSITION Discharge 01/10/2025 11:41:26 PM PATIENT REFERRED TO: Philippe Chua DO [address] [facility] [address] [facility] [id number] DISCHARGE MEDICATIONS: New Prescriptions ONDANSETRON ODT (ZOFRAN-ODT) 4 MG DISINTEGRATING TABLET Take 1 tablet (4 mg) by mouth every 8 hours as needed for nausea or vomiting for up to 7 days. (Comment: Please note this report has been produced using speech recognition software and may contain errors related to that system including errors in grammar, punctuation, and spelling, as well as words and phrases that may be inappropriate. If there are any questions or concerns please feel free to contact the dictating provider for clarification.) Natalia Mark, DO (electronically signed) Emergency Medicine Provider [1] Past Medical History: Diagnosis Date Asthma 2000 Engages in vaping Hiatal hernia with gastroesophageal reflux History of hysterectomy 2021 Pancreatitis 2019 ? accurate [2] Past Surgical History: Procedure Laterality Date ABDOMINAL ADHESION SURGERY 2020 and 2021 APPENDECTOMY 2020 CHOLECYSTECTOMY 2019 COLONOSCOPY 2019 CYSTOSCOPY EXPLORATORY LAPAROTOMY 2018 KNEE SURGERY PARTIAL HYSTERECTOMY 2021 TUBAL LIGATION [3] Family History Problem Relation Name Age of Onset Other Mother Ramya mcmullen Good pastures synd 07/31 fall with ICH, on Dialysis age 48 Kidney failure Mother Ramya mcmullen Seizures Mother Ramya summer Hypertension Mother Ramya summer No Known Problems Father no contact with No Known Problems Sister Odilia No Known Problems Brother Charisse [4] Social History Socioeconomic History Marital status: Significant Other Tobacco Use Smoking status: Former Types: Cigarettes Smokeless tobacco: Former Tobacco comments: Vape Use Vaping Use Vaping status: Every Day Substances: Nicotine Substance and Sexual Activity Alcohol use: Yes Comment: social Drug use: Never Social History Narrative Single, engaged and living with rico Dall[place]. has one son Gonzalo born in 2016 and one dtr Iglesia born in 2018. 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 no ETOH excess. Stopped vaping 07/02 Social Drivers of Health Financial Resource Strain: Low Risk (06/20/2024) Overall Financial Resource Strain (CARDIA) Difficulty of Paying Living Expenses: Not hard at all Food Insecurity: No Food Insecurity (06/20/2024) Hunger Vital Sign Worried About Running Out of Food in the Last Year: Never true Ran Out of Food in the Last Year: Never true Transportation Needs: No Transportation Needs (06/20/2024) PRAPARE - Transportation Lack of Transportation (Medical): No Lack of Transportation (Non-Medical): No Physical Activity: Sufficiently Active (06/20/2024) Exercise Vital Sign Days of Exercise per Week: 5 days Minutes of Exercise per Session: 60 min Stress: No Stress Concern Present (06/20/2024) [employer] [place] [employer] - Occupational Stress Questionnaire Feeling of Stress : Not at all Social Connections: Moderately Isolated (06/20/2024) Social Connection and Isolation Panel [NHANES] Frequency of Communication with Friends and Family: More than three times a week Frequency of Social Gatherings with Friends and Family: More than three times a week Attends Restorationism Services: Never Active Member of Clubs or Organizations: No Attends Club or Organization Meetings: Never Marital Status: Living with partner Housing Stability: Low Risk (06/20/2024) Housing Stability Vital Sign Unable to Pay for Housing in the Last Year: No Number of Times Moved in the Last Year: 0 Homeless in the Last Year: No Natalia Mark DO 01/10/25 2358 documented in this encounter 01-10-2025 Physician Emergency department Note EMERGENCY DEPARTMENT ENCOUNTER Pt Name: Socorro Gonsales Birthdate 1995 Date of evaluation: 01/10/2025 ED Provider: Natalia Mark DO CHIEF COMPLAINT Chief Complaint Patient presents with Abdominal Pain Right Side both quadrants HISTORY OF PRESENT ILLNESS (Location/Symptom, Timing/Onset, Context/Setting, Quality, Duration, Modifying Factors, Severity) Note limiting factors. I wore appropriate PPE for the entirety of this encounter. HPI Socorro Gonsales is a 29 y.o. who presents to the emergency department for right-sided abdominal pain. Patient endorses right-sided upper and lower abdominal pain with nausea and vomiting since 4 PM. She endorses episode of emesis around 7 PM x 2 endorsed may be some blood streaking. She states that pain initially started as dull is more sharp. She says it is somewhat similar to her history of gastroparesis and IBS constipation which has improved since gastroenterology put her on Linzess. Patient took Tylenol prior to arrival without improvement. She also has a history of pancreatitis and GERD and hiatal hernia. Abdominal surgical history includes tubal ligation, partial hysterectomy multiple exploratory laparotomies and lysis of adhesions cystoscopy, appendectomy, cholecystectomy. Patient endorses tolerating p.o. earlier today she denies any fevers travel out of foods trauma rash UTI symptoms constipation diarrhea. Patient had a bowel movement at 7 PM which was normal. Nursing Notes were reviewed. Limitations to history: Outside historians: REVIEW OF SYSTEMS Review of Systems Pertinent positives and negatives as per HPI PAST MEDICAL HISTORY Medical History[1] SURGICAL HISTORY Surgical History[2] CURRENT MEDICATIONS Previous Medications ACETAMINOPHEN EXTRA STRENGTH 500 MG TABLET Take 1,000 mg by mouth every 6 hours as needed. ALBUTEROL 108 (90 BASE) MCG/ACT INHALER Inhale 2 puffs every 6 hours as needed. FLUTICASONE (FLONASE) 50 MCG/ACT NASAL SPRAY 2 sprays in the morning. LINACLOTIDE (LINZESS) 145 MCG CAPSULE Take 1 capsule (145 mcg) by mouth every morning (before breakfast). Do not crush or chew. ALLERGIES Keflex [cephalexin], Morphine, Ondansetron, Seasonal ic [octacosanol], Codeine, Gabapentin, and Latex FAMILY HISTORY Family History[3] SOCIAL HISTORY Social History[4] PHYSICAL EXAM ED Triage Vitals [01/10/25 2102] Temp Heart Rate Resp BP 36.6 C (97.8 F) 73 20 107/71 SpO2 Temp Source Heart Rate Source Patient Position 100 % Oral Monitor Lying BP Location FiO2 (%) Right arm -- Physical Exam Vitals and nursing note reviewed. Constitutional: General: She is awake. She is not in acute distress. Appearance: She is not toxic-appearing. HENT: Head: Normocephalic and atraumatic. Mouth/Throat: Pharynx: Oropharynx is clear. Eyes: General: No scleral icterus. Pupils: Pupils are equal, round, and reactive to light. Cardiovascular: Rate and Rhythm: Normal rate and regular rhythm. Pulmonary: Effort: Pulmonary effort is normal. No respiratory distress. Breath sounds: Normal breath sounds. Abdominal: General: Bowel sounds are normal. Palpations: Abdomen is soft. Tenderness: There is abdominal tenderness in the right upper quadrant and right lower quadrant. There is no right CVA tenderness, left CVA tenderness, guarding or rebound. Musculoskeletal: General: Normal range of motion. Skin: General: Skin is warm and dry. Neurological: General: No focal deficit present. Mental Status: She is alert and oriented to person, place, and time. Psychiatric: Mood and Affect: Mood normal. Behavior: Behavior normal. DIAGNOSTIC RESULTS RADIOLOGY (Per Emergency Physician): Interpretation per the Radiologist below, if available at the time of this note: No orders to display LABS: Labs Reviewed COMPLETE URINALYSIS WITH REFLEX TO CULTURE - Abnormal Result Value Color, Urine Light Yellow Clarity, Urine Turbid (*) pH, Urine 7.5 Leukocytes, Urine Negative Nitrite, Urine Negative Protein, Urine 10 (*) Glucose, Urine Normal Bilirubin, Urine Negative Ketones, Urine Negative Urobilinogen, Urine Normal Blood, Urine Negative Volume, Urine 12 mL RBC, Urine 0-2 WBC, Urine 0-2 Squamous Epithelial, Urine 3-5 Bacteria, Urine Few (*) Mucus, Urine Moderate (*) Amorphous Phosphates, Urine Many (*) SPECIFIC GRAVITY OF URINE (NUMERIC) 1.031 (*) Narrative: A specimen with <=10 WBC is not consistent with inflammation. This specimen will not reflex to a urine culture. BASIC METABOLIC PANEL - Abnormal SODIUM 141 POTASSIUM 4.2 CHLORIDE 112 (*) CARBON DIOXIDE 20 (*) UREA NITROGEN 13 CREATININE 0.78 GLUCOSE 86 CALCIUM 9.1 ANION GAP 9 eGFR >90.0 CBC WITH AUTO DIFFERENTIAL - Normal Auto WBC 7.3 RBC 4.34 Hemoglobin 13.5 Hematocrit 38.9 MCV 89.6 MCH 31.1 MCHC 34.7 RDW 12.5 Platelets 330 MPV 9.7 nRBC 0.0 Neutrophils Relative 49.4 Lymphocytes Relative 40.9 Monocytes Relative 6.6 Eosinophils Relative 2.5 Basophils Relative 0.5 Immature Grans % 0.1 Neutrophils Absolute 3.6 Lymphocytes Absolute 3.0 Monocytes Absolute 0.5 Eosinophils Absolute 0.2 Basophils Absolute 0.0 Immature Grans Absolute 0.0 LIPASE - Normal LIPASE 54 HEPATIC FUNCTION PANEL - Normal BILIRUBIN, TOTAL 0.4 BILIRUBIN, DIRECT 0.1 ALKALINE PHOSPHATASE 54 AST (SGOT) 29 ALT 15 ALBUMIN 4.3 TOTAL PROTEIN 8.0 LACTIC ACID WITH REFLEX - Normal LACTIC ACID 0.8 All other labs were within normal range or not returned as of this dictation. EMERGENCY DEPARTMENT COURSE and DIFFERENTIAL DIAGNOSIS/MDM: Vitals: Vitals: 01/10/25 2102 BP: 107/71 BP Location: Right arm Patient Position: Lying Pulse: 73 Resp: 20 Temp: 36.6 C (97.8 F) TempSrc: Oral SpO2: 100% Weight: 68 kg (150 lb) Height: 1.651 m (5' 5) Medications prochlorperazine (Compazine) injection 10 mg (10 mg IntraVENous Given 01/10/252210) HYDROmorphone (Dilaudid) injection 0.5 mg (0.5 mg IntraVENous Given 01/10/252211) diphenhydrAMINE (BENADryl) injection 12.5 mg (12.5 mg IntraVENous Given 01/10/252258) diphenhydrAMINE (BENADryl) injection 25 mg (25 mg IntraVENous Given 01/10/250) 29-year-old female presented to the ED for right sided abdominal pain with nausea and vomiting detailed above. Exam as above. Differential diagnosis includes pancreatitis, gastroparesis, gastritis, GERD, electrolyte abnormality. Patient given medication for pain and nausea Benadryl for jittery side effect likely from Compazine with improvement in symptoms. Workup revealed CBC within normal range without leukocytosis leukopenia or anemia, lactic acid within normal range BMP grossly unremarkable without significant electrolyte or renal function derangement hepatic function within normal range lipase within normal range, UA with few bacteria denies UTI symptoms not consistent with infection. On reevaluation patient feeling better tolerating p.o. Patient vital stable. Patient stable for discharge with supportive care, return precautions outpatient follow-up with gastroenterology for continued management of chronic abdominal pain. Patient in agreement with plan. SCREENINGS PROCEDURES: Unless otherwise noted below, none Procedures CRITICAL CARE TIME FINAL IMPRESSION 1. Abdominal pain, unspecified abdominal location DISPOSITION Discharge 01/10/2025 11:41:26 PM PATIENT REFERRED TO: Philippe Chua DO [address] [facility] [id number] DISCHARGE MEDICATIONS: New Prescriptions ONDANSETRON ODT (ZOFRAN-ODT) 4 MG DISINTEGRATING TABLET Take 1 tablet (4 mg) by mouth every 8 hours as needed for nausea or vomiting for up to 7 days. (Comment: Please note this report has been produced using speech recognition software and may contain errors related to that system including errors in grammar, punctuation, and spelling, as well as words and phrases that may be inappropriate. If there are any questions or concerns please feel free to contact the dictating provider for clarification.) Natalia Mark DO (electronically signed) Emergency Medicine Provider [1] Past Medical History: Diagnosis Date Asthma 2000 Engages in vaping Hiatal hernia with gastroesophageal reflux History of hysterectomy 2021 Pancreatitis 2019 ? accurate [2] Past Surgical History: Procedure Laterality Date ABDOMINAL ADHESION SURGERY 2020 and 2021 APPENDECTOMY 2020 CHOLECYSTECTOMY 2019 COLONOSCOPY 2019 CYSTOSCOPY EXPLORATORY LAPAROTOMY 2018 KNEE SURGERY PARTIAL HYSTERECTOMY 2021 TUBAL LIGATION [3] Family History Problem Relation Name Age of Onset Other Mother Ramya summer Good pastures synd 07/31 fall with ICH, on Dialysis age 48 Kidney failure Mother Ramyasummer Seizures Mother Ramyasummer Hypertension Mother Ramyasummer No Known Problems Father no contact with No Known Problems Sister Odilia No Known Problems Brother Charisse [4] Social History Socioeconomic History Marital status: Significant Other Tobacco Use Smoking status: Former Types: Cigarettes Smokeless tobacco: Former Tobacco comments: Vape Use Vaping Use Vaping status: Every Day Substances: Nicotine Substance and Sexual Activity Alcohol use: Yes Comment: social Drug use: Never Social History Narrative Single, engaged and living with Derek gómez. has one son Gonzalo born in 2015 and one dtr Iglesia born in 2018. VAPING, now with [facility] [facility], [place]- moving pts and in office. no ETOH excess. Stopped vaping 07/02 Social Drivers of Health Financial Resource Strain: Low Risk (06/20/2024) Overall Financial Resource Strain (CARDIA) Difficulty of Paying Living Expenses: Not hard at all Food Insecurity: No Food Insecurity (06/20/2024) Hunger Vital Sign Worried About Running Out of Food in the Last Year: Never true Ran Out of Food in the Last Year: Never true Transportation Needs: No Transportation Needs (06/20/2024) PRAPARE - Transportation Lack of Transportation (Medical): No Lack of Transportation (Non-Medical): No Physical Activity: Sufficiently Active (06/20/2024) Exercise Vital Sign Days of Exercise per Week: 5 days Minutes of Exercise per Session: 60 min Stress: No Stress Concern Present (06/20/2024) [employer] [place] [employer] - Occupational Stress Questionnaire Feeling of Stress : Not at all Social Connections: Moderately Isolated (06/20/2024) Social Connection and Isolation Panel [NHANES] Frequency of Communication with Friends and Family: More than three times a week Frequency of Social Gatherings with Friends and Family: More than three times a week Attends Restorationism Services: Never Active Member of Clubs or Organizations: No Attends Club or Organization Meetings: Never Marital Status: Living with partner Housing Stability: Low Risk (06/20/2024) Housing Stability Vital Sign Unable to Pay for Housing in the Last Year: No Number of Times Moved in the Last Year: 0 Homeless in the Last Year: No Natalia Mark DO 01/10/25 [id number] 12-27-2024 Note General Surgery History and Physical Lenin De Los Santos MD, MPH Patient ID: Socorro Gonsales [id number] 29 y.o. 1995 CHIEF COMPLAINT: Chief Complaint Patient presents with Follow-up FU Left breast pain, US 12/26 HPI: Socorro Gonsales is a 29 y.o. female who presents to review diagnostic breast imaging which was ordered and provoked related to left breast and chest wall pain. She was seen in [place] ED for this pain and diagnosed with pleurisy; however, she had palpable pain in the region of the left breast and therefore, for completion, we obtained a left breast US. This did not demonstrate any concerning findings. The pain occasionally remains and fluctuates. She continues to vape which I feel may be contributing to the pain. No breast discharge, no contralateral complaints. No issues with movement. Today, she also complains of intermittent migraines but is agreeable to work on a log of these events and is planning to bring these concerns to her PCP ongoing too to consider neurology evaluation. Recall, I have seen the patient multiple times in the past. I originally saw her with complaints of bilateral nipple discharge that was extensively evaluated with imaging and since resolved. She underwent extensive workup including MRI which did not demonstrate any findings. The patient does have young, healthy dense breasts with suspected fibrocystic disease and has pains monthyl with them, likely hormonally based. She had similar complaints in the right breast previously. Ultrasound and MRI did not demonstrate abnormality. The complaints did subside. I then did also evaluate her for some abdominal complaints and she has escalated her care through gastroenterology as well as now referrals through the [facility]. She follows a special gastroparesis diet and follows with gastroenterology and dietary through [facility]. Doing well from a bowel standpoint today. Left Breast US 12/26/24: FINDINGS: The patient presents for evaluation of focal pain within the lower outer quadrant of the left breast. No mass or focal sonographic abnormality is seen within the left breast from 3-4 o'clock, 5 cm from the nipple and at 5:30, 6 cm from the nipple to correlate with the patient's pain. IMPRESSION: No sonographic abnormality is seen within the left breast at 3-4 o'clock, 5 cm from the nipple and at 5:30, 6 cm from the nipple to correlate with the patient's pain. Clinical correlation and follow-up are recommended. ASSESSMENT: Category 1 Negative RECOMMENDATION: Clinical correlation Left Routine screening at age 40 Bilateral Past Medical History: Diagnosis Date Asthma 2000 Engages in vaping Hiatal hernia with gastroesophageal reflux History of hysterectomy 2021 Pancreatitis 2019 ? accurate Past Surgical History: Procedure Laterality Date ABDOMINAL ADHESION SURGERY 2020 and 2021 APPENDECTOMY 2020 CHOLECYSTECTOMY 2019 COLONOSCOPY 2019 CYSTOSCOPY EXPLORATORY LAPAROTOMY 2019 PARTIAL HYSTERECTOMY 2021 TUBAL LIGATION Medications Prior to Visit: Prior to Admission medications Medication Sig Start Date End Date Taking? Authorizing Provider Acetaminophen Extra Strength 500 MG tablet Take 1,000 mg by mouth every 6 hours as needed. 05/05/22 Yes Historical Provider, albuterol 108 (90 Base) MCG/ACT inhaler Inhale 2 puffs every 6 hours as needed. 08/17/20 Yes Historical Provider, albuterol 108 (90 Base) MCG/ACT inhaler inhale 2 puffs by mouth and INTO THE LUNGS every 6 hours if neede... (REFER TO PRESCRIPTION NOTES). 06/03/22 Yes Historical Provider, dicyclomine (Bentyl) 10 MG capsule Take 2 capsules (20 mg) by mouth in the morning and 2 capsules (20 mg) at noon and 2 capsules (20 mg) in the evening and 2 capsules (20 mg) before bedtime. 06/08/23 06/07/24 Yes Lenin De Los Santos MD pantoprazole (ProtoNix) 40 MG EC tablet Take 1 tablet (40 mg) by mouth every morning (before breakfast). Do not crush, chew, or split. 06/08/23 10/06/23 Yes Lenin De Los Santos MD psyllium (Metamucil) 58.6 % packet Take 1 packet (3.4 g of fiber) by mouth daily. Mix and drink with at least 8 ounces of water or juice. 06/08/23 07/15/23 Yes Lenin De Los Santos MD Allergies: Keflex [cephalexin], Morphine, Ondansetron, Seasonal ic [octacosanol], Codeine, Gabapentin, and Latex Social History Socioeconomic History Marital status: Significant Other Tobacco Use Smoking status: Former Types: Cigarettes Smokeless tobacco: Former Tobacco comments: Vape Use Vaping Use Vaping status: Every Day Substances: Nicotine Substance and Sexual Activity Alcohol use: Yes Comment: social Drug use: Never Social History Narrative Single, engaged and living with Derek gómez. has one son Gonzalo born in 2016 and one dtr Iglesia born in 2018. 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 no ETOH excess. Stopped vaping 07/02 So (more content not included)... [facility] 12-15-2024 Telephone encounter Note Left voicemail to reschedule due to staffing. 12-15-2024 Miscellaneous Notes Left voicemail to reschedule due to staffing. documented in this encounter 11-24-2024 History of Present illness Narrative Images from the original note were not included. [facility] [address] [facility] [address] Dept: [phone] Dept Loc: [phone] Visit type: Established Reason for Visit: Follow-up Assessment and Plan Problem List Items Addressed This Visit Gastroparesis - Primary Other Visit Diagnoses History of esophagogastroduodenoscopy (EGD) History of colonoscopy Alternating constipation and diarrhea Relevant Orders Celiac Panel S/P cholecystectomy Chronic idiopathic constipation Relevant Medications linaCLOtide (Linzess) 145 MCG capsule -Symptoms are acute on chronic. 4 hour GES shows delayed motility, unclear etiology. -Referred to Dr. Gonzáles for further evaluation of gastroparesis. Completed referral to [facility] and has established with their gastroparesis interdisciplinary clinic. Symptoms are controlled primarily with dietary medications and gastroparesis clinic did not advise to start Rx due to side effects. -Continue Gastroparesis diet, has seen dietitian. -Socorro had concerns about celiac, will order serology. -Also has [facility], has had colonoscopy completed in 2019 with ?microscopic colitis as and is also s/p stas so would be more prone to diarrhea. Is taking Miralax 17 g BID, MoM PRN, Senna PRN, and Dulcolax PRN with little relief. Will start Linzess 145 mcg daily. -She is also s/p multiple abdominal surgery with lysis of adhesions. This may be a component of her abdominal pain. -Follow up in 3 months. Follow up in about 3 months (around 02/23/2025) for Next scheduled follow-up. Advised patient to call office with new or worsening symptoms, questions, or concerns. Patient verbalized understanding and agreement of plan. Subjective Socorro is a 29 y.o. female who presents as a follow up. She was referred by Dr. Jean Odonnell DO regarding Abdominal pain, epigastric. Has been evaluated in the office before. Last office visit was 05/02/2021 with Naty Moran PA-C regarding generalized abdominal pain; nausea and vomiting; Lymphocytic colitis. HPI Feels like her gastroparesis symptoms are controlled with diet. Is following with gastroparesis clinic at [facility]. Main concern is constipation. Is having days with BM. Is taking Miralax 17 g BID and other OTC laxatives to assist. S/p 05/04/2022 with Total Laparoscopic Hysterectomy, Cystoscopy. S/p Laparoscopy lysis of adhesions and laparoscopic appendectomy 03/26/2021. S/p cholecystectomy 2018-. S/p tubal ligation 2017. EtOH: None. Tobacco: Vape. NSAIDs: Rarely PRN. Illicit drugs: None. Family History of Colon Cancer: None. Prior EGD/Colonoscopy: EGD 2020. Colonoscopy 2019. Prior Abdominal Surgery: Multiple as in HPI. Review of Systems Constitutional: Negative for appetite change, fatigue, fever and unexpected weight change. HENT: Negative for trouble swallowing. Respiratory: Negative for cough, choking and shortness of breath. Cardiovascular: Negative for chest pain. Gastrointestinal: Positive for abdominal pain and constipation. Negative for abdominal distention, anal bleeding, blood in stool, diarrhea, nausea, rectal pain and vomiting. Skin: Negative for color change, pallor and rash. Allergies Allergen Reactions Keflex [Cephalexin] Nausea And Vomiting Morphine Ondansetron Itching Itching and redness in arm when given Zofran IV Seasonal Ic [Octacosanol] Codeine Itching and Rash Gabapentin Other [place] like Heart was racing [place] like Heart was racing Latex Itching, Rash and Hives Other reaction(s): Hives Outpatient Medications Prior to Visit Medication Sig Dispense Refill Acetaminophen Extra Strength 500 MG tablet Take 1,000 mg by mouth every 6 hours as needed. albuterol 108 (90 Base) MCG/ACT inhaler Inhale 2 puffs every 6 hours as needed. fluticasone (Flonase) 50 MCG/ACT nasal spray 2 sprays in the morning. No facility-administered medications prior to visit. Patient Active Problem List Diagnosis Date Noted Date Diagnosed Engages in vaping Priority: Medium Hiatal hernia with gastroesophageal reflux Priority: Medium Gastroparesis 11/29/2023 Priority: Medium Chronic constipation 07/27/2019 YVONNE (generalized anxiety disorder) 07/27/2019 PFO (patent foramen ovale) 05/14/2019 Asthma 03/05/2017 Allergic rhinitis 03/05/2017 Social History Tobacco Use Smoking status: Former Types: Cigarettes Smokeless tobacco: Former Tobacco comments: Vape Use Substance Use Topics Alcohol use: Yes Comment: social Family History Problem Relation Name Age of Onset Other Mother summer Good pastures sb 07/31 fall with ICH, on Dialysis age 48 Kidney failure Mother summer Seizures Mother summer Hypertension Mother summer No Known Problems Father no contact with No Known Problems Sister Odilia No Known Problems Brother Charisse Objective BP 100/63 Pulse 89 Temp 36.7 C (98.1 F) Ht 5' 5 (1.651 m) Wt 144 lb 6.4 oz (65.5 kg) SpO2 98% BMI 24.03 kg/m Physical Exam Vitals reviewed. Constitutional: General: She is not in acute distress. Appearance: Normal appearance. She is not ill-appearing. Pulmonary: Effort: Pulmonary effort is normal. Breath sounds: Normal breath sounds. Abdominal: General: Bowel sounds are normal. There is no distension. Palpations: Abdomen is soft. Tenderness: There is no abdominal tenderness. There is no guarding or rebound. Neurological: General: No focal deficit present. Mental Status: She is alert and oriented to person, place, and time. Psychiatric: Mood and Affect: Mood normal. Behavior: Behavior normal. Data Reviewed and Summarized Labs: Lab Results Component Value Date WBC 8.5 11/08/2024 HGB 14.4 11/08/2024 HCT 42.3 11/08/2024 MCV 91.8 11/08/2024 PLT 337 11/08/2024 Lab Results Component Value Date GLUCOSE 79 11/08/2024 CALCIUM 10.0 11/08/2024 NA 138 11/08/2024 K 4.8 11/08/2024 CO2 23 11/08/2024 CL 107 11/08/2024 BUN 12 11/08/2024 CREATININE 0.82 11/08/2024 Lab Results Component Value Date ALT 25 06/05/2024 AST 51 (H) 06/05/2024 ALKPHOS 55 06/05/2024 BILITOT 0.8 06/05/2024 Lab Results Component Value Date LIPASE 113 06/05/2024 Lab Results Component Value Date TSH 1.56 06/21/2024 Imaging/Testing: NM gastric emptying solid 03/02/2024 FINDINGS: At one hour, there is 85 percent of original activity within the stomach (normal between 30-90% retention). At two hours after ingestion, 61 percent of original activity remains within the stomach (normal 60% or less). At four hours after ingestion, 19 percent of original activity remains within the stomach (normal 10 percent or less). IMPRESSION: Abnormally delayed gastric emptying following solid meal. CT abdomen pelvis wo contrast 02/16/2024 FINDINGS: Evaluation of solid organs is limited by lack of contrast administration. Chest base: The lung bases are clear. Liver/Biliary system: No significant abnormality. Cholecystectomy Spleen: Not enlarged. Pancreas: No significant abnormality. Adrenal glands: No significant abnormality. Kidneys: No hydronephrosis or renal calculi are seen. Bowel: The bowel is of normal caliber throughout without evidence of wall thickening or obstruction. Pericecal postsurgical changes suggestive of appendectomy. Mesentery/Intraperitoneum: Mild free fluid in the pelvis, likely physiologic. No free intraperitoneal air. Lymph nodes: No lymphadenopathy Vasculature: The abdominal aorta is normal in caliber. Pelvic organs: No masses or other significant abnormalities seen. Soft tissues and Osseous structures: No evidence of fracture. No suspicious osseous lesions. Hypodense fluid collection along the deep aspect of the iliopsoas muscles measuring up to 1.7 x 1.6 x 5 cm. IMPRESSION: Fluid-filled right iliopsoas bursa suggestive of bursitis. FL upper GI w KUB 12/02/2023 FINDINGS: Barium and air are administered. The esophagus is studied in the upright as well as the horizontal positions. The esophagus is normal in course and caliber. There is a small hiatal hernia without spontaneous gastroesophageal reflux. Barium flows freely from the esophagus into the stomach. There is retained food debris in the stomach which can obscure small pathology. The visualized stomach and duodenum show normal mucosal patterns, with no discrete ulcer or mass. The visualized proximal jejunum is unremarkable. IMPRESSION: Small hiatal hernia without spontaneous gastroesophageal reflux. Retained food debris within stomach. Consider gastric emptying study. CT abdomen pelvis w contrast 05/17/2023 Reason For Exam: RLQ abdominal pain (Age >= 14y) CT abdomen and pelvis with contrast HISTORY: Right lower quadrant pain Protocol: 3 mm axial images with intravenous contrast Dose reduction was employed with automated exposure control. COMPARISON: 09/24/2022 The liver, spleen, pancreas, adrenals and kidneys are normal. The gallbladder has been removed. No evidence of bowel inflammation or bowel obstruction. The appendix has been removed. Slight free fluid in the pelvis. The bladder is unremarkable. IMPRESSION: Slight free fluid in the pelvis. GES 03/04/21: FINDINGS: At one hour, there is 75 percent of original activity within the stomach. At two hours after ingestion, 50 percent of original activity remains within the stomach. Normal at two hours following ingestion is between 19 and 52 percent. IMPRESSION: Borderline abnormally delayed gastric emptying following solid meal. Colonoscopy pathology 05/16/2020 Scooter Gunderson PA-C 1:18 PM 11/24/24 documented in this encounter [facility] 11-24-2024 History of Present illness Narrative Images from the original note were not included. [facility] [address] [facility] [address] Dept: [phone] Dept Loc: [phone] Visit type: Established Reason for Visit: Follow-up Assessment and Plan Problem List Items Addressed This Visit Gastroparesis - Primary Other Visit Diagnoses History of esophagogastroduodenoscopy (EGD) History of colonoscopy Alternating constipation and diarrhea Relevant Orders Celiac Panel S/P cholecystectomy Chronic idiopathic constipation Relevant Medications linaCLOtide (Linzess) 145 MCG capsule -Symptoms are acute on chronic. 4 hour GES shows delayed motility, unclear etiology. -Referred to Dr. Gonzáles for further evaluation of gastroparesis. Completed referral to [facility] and has established with their gastroparesis interdisciplinary clinic. Symptoms are controlled primarily with dietary medications and gastroparesis clinic did not advise to start Rx due to side effects. -Continue Gastroparesis diet, has seen dietitian. -Socorro had concerns about celiac, will order serology. -Also has [facility], has had colonoscopy completed in 2019 with ?microscopic colitis as and is also s/p stas so would be more prone to diarrhea. Is taking Miralax 17 g BID, MoM PRN, Senna PRN, and Dulcolax PRN with little relief. Will start Linzess 145 mcg daily. -She is also s/p multiple abdominal surgery with lysis of adhesions. This may be a component of her abdominal pain. -Follow up in 3 months. Follow up in about 3 months (around 02/23/2025) for Next scheduled follow-up. Advised patient to call office with new or worsening symptoms, questions, or concerns. Patient verbalized understanding and agreement of plan. Richardson Quintanilla is a 29 y.o. female who presents as a follow up. She was referred by Dr. Jean Odonnell DO regarding Abdominal pain, epigastric. Has been evaluated in the office before. Last office visit was 05/02/2021 with Naty Moran PA-C regarding generalized abdominal pain; nausea and vomiting; Lymphocytic colitis. HPI Feels like her gastroparesis symptoms are controlled with diet. Is following with gastroparesis clinic at [facility]. Main concern is constipation. Is having days with BM. Is taking Miralax 17 g BID and other OTC laxatives to assist. S/p 05/04/2022 with Total Laparoscopic Hysterectomy, Cystoscopy. S/p Laparoscopy lysis of adhesions and laparoscopic appendectomy 03/26/2021. S/p cholecystectomy 2018-. S/p tubal ligation 2017. EtOH: None. Tobacco: Vape. NSAIDs: Rarely PRN. Illicit drugs: None. Family History of Colon Cancer: None. Prior EGD/Colonoscopy: EGD 2020. Colonoscopy 2019. Prior Abdominal Surgery: Multiple as in HPI. Review of Systems Constitutional: Negative for appetite change, fatigue, fever and unexpected weight change. HENT: Negative for trouble swallowing. Respiratory: Negative for cough, choking and shortness of breath. Cardiovascular: Negative for chest pain. Gastrointestinal: Positive for abdominal pain and constipation. Negative for abdominal distention, anal bleeding, blood in stool, diarrhea, nausea, rectal pain and vomiting. Skin: Negative for color change, pallor and rash. Allergies Allergen Reactions Keflex [Cephalexin] Nausea And Vomiting Morphine Ondansetron Itching Itching and redness in arm when given Zofran IV Seasonal Ic [Octacosanol] Codeine Itching and Rash Gabapentin Other [place] like Heart was racing [place] like Heart was racing Latex Itching, Rash and Hives Other reaction(s): Hives Outpatient Medications Prior to Visit Medication Sig Dispense Refill Acetaminophen Extra Strength 500 MG tablet Take 1,000 mg by mouth every 6 hours as needed. albuterol 108 (90 Base) MCG/ACT inhaler Inhale 2 puffs every 6 hours as needed. fluticasone (Flonase) 50 MCG/ACT nasal spray 2 sprays in the morning. No facility-administered medications prior to visit. Patient Active Problem List Diagnosis Date Noted Date Diagnosed Engages in vaping Priority: Medium Hiatal hernia with gastroesophageal reflux Priority: Medium Gastroparesis 11/29/2023 Priority: Medium Chronic constipation 07/27/2019 YVONNE (generalized anxiety disorder) 07/27/2019 PFO (patent foramen ovale) 05/14/2019 Asthma 03/05/2017 Allergic rhinitis 03/05/2017 Social History Tobacco Use Smoking status: Former Types: Cigarettes Smokeless tobacco: Former Tobacco comments: Vape Use Substance Use Topics Alcohol use: Yes Comment: social Family History Problem Relation Name Age of Onset Other Mother Ramya summer Good pastures sb 07/31 fall with ICH, on Dialysis age 48 Kidney failure Mother summer Seizures Mother summer Hypertension Mother summer No Known Problems Father no contact with No Known Problems Sister Odilia No Known Problems Brother Charisse Objective BP 100/63 Pulse 89 Temp 36.7 C (98.1 F) Ht 5' 5 (1.651 m) Wt 144 lb 6.4 oz (65.5 kg) SpO2 98% BMI 24.03 kg/m Physical Exam Vitals reviewed. Constitutional: General: She is not in acute distress. Appearance: Normal appearance. She is not ill-appearing. Pulmonary: Effort: Pulmonary effort is normal. Breath sounds: Normal breath sounds. Abdominal: General: Bowel sounds are normal. There is no distension. Palpations: Abdomen is soft. Tenderness: There is no abdominal tenderness. There is no guarding or rebound. Neurological: General: No focal deficit present. Mental Status: She is alert and oriented to person, place, and time. Psychiatric: Mood and Affect: Mood normal. Behavior: Behavior normal. Data Reviewed and Summarized Labs: Lab Results Component Value Date WBC 8.5 11/08/2024 HGB 14.4 11/08/2024 HCT 42.3 11/08/2024 MCV 91.8 11/08/2024 PLT 337 11/08/2024 Lab Results Component Value Date GLUCOSE 79 11/08/2024 CALCIUM 10.0 11/08/2024 NA 138 11/08/2024 K 4.8 11/08/2024 CO2 23 11/08/2024 CL 107 11/08/2024 BUN 12 11/08/2024 CREATININE 0.82 11/08/2024 Lab Results Component Value Date ALT 25 06/05/2024 AST 51 (H) 06/05/2024 ALKPHOS 55 06/05/2024 BILITOT 0.8 06/05/2024 Lab Results Component Value Date LIPASE 113 06/05/2024 Lab Results Component Value Date TSH 1.56 06/21/2024 Imaging/Testing: NM gastric emptying solid 03/02/2024 FINDINGS: At one hour, there is 85 percent of original activity within the stomach (normal between 30-90% retention). At two hours after ingestion, 61 percent of original activity remains within the stomach (normal 60% or less). At four hours after ingestion, 19 percent of original activity remains within the stomach (normal 10 percent or less). IMPRESSION: Abnormally delayed gastric emptying following solid meal. CT abdomen pelvis wo contrast 02/16/2024 FINDINGS: Evaluation of solid organs is limited by lack of contrast administration. Chest base: The lung bases are clear. Liver/Biliary system: No significant abnormality. Cholecystectomy Spleen: Not enlarged. Pancreas: No significant abnormality. Adrenal glands: No significant abnormality. Kidneys: No hydronephrosis or renal calculi are seen. Bowel: The bowel is of normal caliber throughout without evidence of wall thickening or obstruction. Pericecal postsurgical changes suggestive of appendectomy. Mesentery/Intraperitoneum: Mild free fluid in the pelvis, likely physiologic. No free intraperitoneal air. Lymph nodes: No lymphadenopathy Vasculature: The abdominal aorta is normal in caliber. Pelvic organs: No masses or other significant abnormalities seen. Soft tissues and Osseous structures: No evidence of fracture. No suspicious osseous lesions. Hypodense fluid collection along the deep aspect of the iliopsoas muscles measuring up to 1.7 x 1.6 x 5 cm. IMPRESSION: Fluid-filled right iliopsoas bursa suggestive of bursitis. FL upper GI w KUB 12/02/2023 FINDINGS: Barium and air are administered. The esophagus is studied in the upright as well as the horizontal positions. The esophagus is normal in course and caliber. There is a small hiatal hernia without spontaneous gastroesophageal reflux. Barium flows freely from the esophagus into the stomach. There is retained food debris in the stomach which can obscure small pathology. The visualized stomach and duodenum show normal mucosal patterns, with no discrete ulcer or mass. The visualized proximal jejunum is unremarkable. IMPRESSION: Small hiatal hernia without spontaneous gastroesophageal reflux. Retained food debris within stomach. Consider gastric emptying study. CT abdomen pelvis w contrast 05/17/2023 Reason For Exam: RLQ abdominal pain (Age >= 14y) CT abdomen and pelvis with contrast HISTORY: Right lower quadrant pain Protocol: 3 mm axial images with intravenous contrast Dose reduction was employed with automated exposure control. COMPARISON: 09/24/2022 The liver, spleen, pancreas, adrenals and kidneys are normal. The gallbladder has been removed. No evidence of bowel inflammation or bowel obstruction. The appendix has been removed. Slight free fluid in the pelvis. The bladder is unremarkable. IMPRESSION: Slight free fluid in the pelvis. GES 03/04/21: FINDINGS: At one hour, there is 75 percent of original activity within the stomach. At two hours after ingestion, 50 percent of original activity remains within the stomach. Normal at two hours following ingestion is between 19 and 52 percent. IMPRESSION: Borderline abnormally delayed gastric emptying following solid meal. Colonoscopy pathology 05/16/2020 Scooter Gunderson PA-C 1:18 PM 11/24/24 documented in this encounter [facility] [employer] 11-24-2024 Instructions Scooter Gunderson PA-C - 11/24/2024 9:30 AM EDT --Please call office with any questions or concerns! [phone] --Obtain additional blood work for further evaluation of the symptoms. --Begin medication (Linzess 145 mcg). --Please see handout provided regarding additional recommendations/nformation for the symptoms including when to seek emergency care or further treatment. --Follow-up with PCP, and in GI clinic in about 1 month following the above evaluation and recommendations. The following attachments cannot be sent through Care Everywhere.Linaclotide, ADULT (Citizen Of [place])documented in this encounter 11-24-2024 Instructions Scooter Gunderson PA-C - 11/24/2024 9:30 AM EDT --Please call office with any questions or concerns! [phone] --Obtain additional blood work for further evaluation of the symptoms. --Begin medication (Linzess 145 mcg). --Please see handout provided regarding additional recommendations/nformation for the symptoms including when to seek emergency care or further treatment. --Follow-up with PCP, and in GI clinic in about 1 month following the above evaluation and recommendations. The following attachments cannot be sent through Care Everywhere.Linaclotide, ADULT (Citizen Of [place])documented in this encounter 11-24-2024 Miscellaneous Notes Addended by: GLENN SMITH on: 12/26/2024 08:28 AM Modules accepted: Orders documented in this encounter 11-24-2024 Note Addended by: GLENN SMITH on: 12/26/2024 08:28 AM Modules accepted: Orders 11-09-2024 History of Present illness Narrative Images from the original note were not included. General Surgery History and Physical Lenin De Los Santos MD, MPH Patient ID: Socorro Gonsales [id number] 29 y.o. 1995 CHIEF COMPLAINT: Chief Complaint Patient presents with Breast Problem Est Pt. Left breast pain. [place] ER Referral HPI: Socorro Gonsales is a 29 y.o. female who presents as a referral from [place] emergency department with concerns for some left chest wall and breast pain. She went to the emergency department last evening and was thoroughly evaluated given complaints of left chest, flank, inframammary pain. She was concerned she may have nephrolithiasis. Lab work was obtained which was entirely normal. No imaging was obtained as the urinalysis was also normal. She was recommended to have close outpatient follow-up with me and we are able to accommodate a same-day visit upon request. During examination today, the patient notes that she had 10 out of 10 stabbing left upper quadrant, left flank, and left breast pain yesterday. She has no idea what caused this onset of pain. She was given narcotic medications with improvement in the emergency department. Her pain is now 5 out of 10 today. There is tenderness to palpation. She was diagnosed with possibly pleurisy but denies any fluctuation with breathing. She does vape daily and I encouraged her to stop this. She denies any current nipple discharge or abnormalities in the bilateral breasts aside from the pain to palpation on exam just inferior to the nipple on the left. She is interested in obtaining additional imaging but would like to avoid any significant ionizing radiation, CT imaging, appropriately so. The patient has not taken much in terms of pain medication for this aside from the narcotics received in the ER. She is planning on trialing anti-inflammatory and Tylenol at home. Recall, I have seen the patient multiple times in the past. I originally saw her with complaints of bilateral nipple discharge that was extensively evaluated with imaging and since resolved. She underwent extensive workup including MRI which did not demonstrate any findings. The patient does have young, healthy dense breasts with suspected fibrocystic disease. She had similar complaints in the right breast previously. Ultrasound and MRI did not demonstrate abnormality. The complaints did subside. I then did also evaluate her for some abdominal complaints and she has escalated her care through gastroenterology as well as now referrals through the [facility]. She follows a special gastroparesis diet and follows with gastroenterology and dietary through [facility]. Past Medical History: Diagnosis Date Asthma 2000 Engages in vaping Hiatal hernia with gastroesophageal reflux History of hysterectomy 2021 Pancreatitis 2019 ? accurate Past Surgical History: Procedure Laterality Date ABDOMINAL ADHESION SURGERY 2020 and 2021 APPENDECTOMY 2020 CHOLECYSTECTOMY 2019 COLONOSCOPY 2019 CYSTOSCOPY EXPLORATORY LAPAROTOMY 2019 PARTIAL HYSTERECTOMY 2021 TUBAL LIGATION Medications Prior to Visit: Prior to Admission medications Medication Sig Start Date End Date Taking? Authorizing Provider Acetaminophen Extra Strength 500 MG tablet Take 1,000 mg by mouth every 6 hours as needed. 05/05/22 Yes Historical Provider, albuterol 108 (90 Base) MCG/ACT inhaler Inhale 2 puffs every 6 hours as needed. 08/17/20 Yes Historical Provider, albuterol 108 (90 Base) MCG/ACT inhaler inhale 2 puffs by mouth and INTO THE LUNGS every 6 hours if neede... (REFER TO PRESCRIPTION NOTES). 06/03/22 Yes Historical Provider, dicyclomine (Bentyl) 10 MG capsule Take 2 capsules (20 mg) by mouth in the morning and 2 capsules (20 mg) at noon and 2 capsules (20 mg) in the evening and 2 capsules (20 mg) before bedtime. 06/08/23 06/07/24 Yes Lenin De Los Santos MD pantoprazole (ProtoNix) 40 MG EC tablet Take 1 tablet (40 mg) by mouth every morning (before breakfast). Do not crush, chew, or split. 10/31/23 2/28/24 Yes Lenin De Los Santos MD psyllium (Metamucil) 58.6 % packet Take 1 packet (3.4 g of fiber) by mouth daily. Mix and drink with at least 8 ounces of water or juice. 06/08/23 07/15/23 Yes Lenin De Los Santos MD Allergies: Keflex [cephalexin], Morphine, Ondansetron, Seasonal ic [octacosanol], Codeine, Gabapentin, and Latex Social History Socioeconomic History Marital status: Significant Other Tobacco Use Smoking status: Former Types: Cigarettes Smokeless tobacco: Former Tobacco comments: Vape Use Vaping Use Vaping status: Every Day Substances: Nicotine Substance and Sexual Activity Alcohol use: Yes Comment: social Drug use: Never Social History Narrative Single, engaged and living with Derek gómez. has one son Gonzalo born in 2016 and one dtr Iglesia born in 2018. VAPING, now with [facility], Diana- moving pts and in office. no ETOH excess. Stopped vaping 07/02 Social Drivers of Health Financial Resource Strain: Low Risk (06/20/2024) Overall Financial Resource Strain (CARDIA) Difficulty of Paying Living Expenses: Not hard at all Food Insecurity: No Food Insecurity (06/20/2024) Hunger Vital Sign Worried About Running Out of Food in the Last Year: Never true Ran Out of Food in the Last Year: Never true Transportation Needs: No Transportation Needs (06/20/2024) PRAPARE - Transportation Lack of Transportation (Medical): No Lack of Transportation (Non-Medical): No Physical Activity: Sufficiently Active (06/20/2024) Exercise Vital Sign Days of Exercise per Week: 5 days Minutes of Exercise per Session: 60 min Stress: No Stress Concern Present (06/20/2024) [employer] [place] [employer] - Occupational Stress Questionnaire Feeling of Stress : Not at all Social Connections: Moderately Isolated (06/20/2024) Social Connection and Isolation Panel [NHANES] Frequency of Communication with Friends and Family: More than three times a week Frequency of Social Gatherings with Friends and Family: More than three times a week Attends Restorationism Services: Never Active Member of Clubs or Organizations: No Attends Club or Organization Meetings: Never Marital Status: Living with partner Housing Stability: Low Risk (06/20/2024) Housing Stability Vital Sign Unable to Pay for Housing in the Last Year: No Number of Times Moved in the Last Year: 0 Homeless in the Last Year: No Family History Problem Relation Name Age of Onset Other Mother Ramya mcmullen Good pastures sb 07/31 fall with ICH, on Dialysis age 48 Kidney failure Mother Ramya summer Seizures Mother Ramya summer Hypertension Mother Ramya summer No Known Problems Father no contact with No Known Problems Sister Odilia No Known Problems Brother Charisse Review of Systems: Review of Systems Constitutional: Negative for chills, fever and unexpected weight change. HENT: Negative for drooling, facial swelling, hearing loss, nosebleeds, rhinorrhea, sneezing and trouble swallowing. Respiratory: Negative for apnea, cough, chest tightness, shortness of breath, wheezing and stridor. Cardiovascular: Positive for chest pain (Left chest and breast area). Negative for leg swelling. Gastrointestinal: Positive for abdominal pain (Left upper quadrant). Negative for abdominal distention, constipation, diarrhea, nausea and vomiting. No significant bowel complaints today. Currently well-managed Endocrine: Negative. Genitourinary: Positive for flank pain (Left-sided no urinary symptoms). Negative for decreased urine volume, difficulty urinating, dysuria and urgency. Musculoskeletal: Negative for gait problem, joint swelling and myalgias. Skin: Negative for color change, pallor, rash and wound. Allergic/Immunologic: Negative. Neurological: Negative for dizziness, speech difficulty, weakness, light-headedness and headaches. Hematological: Does not bruise/bleed easily. Psychiatric/Behavioral: Negative for agitation, behavioral problems, confusion and decreased concentration. The patient is nervous/anxious. Physical Exam: BP 106/71 Pulse 79 Temp 36.8 C (98.2 F) Ht 5' 5 (1.651 m) Wt 147 lb 9.6 oz (67 kg) BMI 24.56 kg/m Physical Exam Exam conducted with a talent acquisition lead present. Constitutional: General: She is not in acute distress. Appearance: She is not ill-appearing, toxic-appearing or diaphoretic. Comments: Appears stated age HENT: Head: Normocephalic and atraumatic. Right Ear: External ear normal. Left Ear: External ear normal. Nose: Nose normal. No rhinorrhea. Mouth/Throat: Mouth: Mucous membranes are moist. Eyes: General: No scleral icterus. Right eye: No discharge. Left eye: No discharge. Extraocular Movements: Extraocular movements intact. Conjunctiva/sclera: Conjunctivae normal. Cardiovascular: Rate and Rhythm: Normal rate. Pulses: Normal pulses. Pulmonary: Effort: Pulmonary effort is normal. No respiratory distress. Breath sounds: No wheezing. Chest: Comments: There are no abnormalities to the breast bilaterally aside from the pain and tenderness to palpation in the left breast. She has dense breasts bilaterally with fibrocystic change Abdominal: General: There is no distension. Palpations: There is no mass. Tenderness: There is abdominal tenderness (There is some left upper quadrant tenderness overlying the rib cage extending toward the flank and onto the breast.). There is no guarding or rebound. Musculoskeletal: General: No swelling, tenderness, deformity or signs of injury. Normal range of motion. Cervical back: Normal range of motion. No rigidity. Skin: General: Skin is warm and dry. Neurological: General: No focal deficit present. Mental Status: She is alert. Cranial Nerves: No cranial nerve deficit (No gross abnormality). Psychiatric: Mood and Affect: Mood normal. Behavior: Behavior normal. Thought Content: Thought content normal. Orders Placed This Encounter Procedures Left breast US limited Bilateral diagnostic mammogram with tomosynthesis Impression/Treatment Plan: Socorro Gonsales is a 29 y.o. female presenting with new onset left chest wall, breast, flank pain. She has presented to me with prior left breast swelling and engorgement, in the setting of extensive previous workup for bilateral nipple discharge felt to be physiologic following ultrasound and MRI, likely significant underlying fibrocystic breast disease/change. Orders Placed This Encounter Procedures Left breast US limited Bilateral diagnostic mammogram with tomosynthesis -No surgical intervention indicated. Discussed findings on exam as well as correlation to complaints. -Differential diagnosis for her complaints include costochondritis given the reproducibility of pain to palpation as well as underlying breast pathology, although unlikely. Agree that any nephrolithiasis or more concerning intra-abdominal pathology would be unlikely given her normal lab workup and urinalysis. -For complete workup, we will obtain noninvasive breast imaging for the patient. Will obtain left breast ultrasound. Patient appreciative and in agreement. -Similarly, as I have informed her in the past, I suspect that the majority of her complaints are related to normal physiologic change with fibrocystic breast in a young healthy female. We did perform bilateral ultrasound of the breast as well as an MRI for completion which were both negative within the past 2 years. -I again encouraged the patient to continue to monitor her breast for these changes and educated that this will likely continue to evolve with time as the architecture of the breast changes as well as the density, especially with fibrocystic disease. I did discuss pain control with acetaminophen as well as NSAIDs, but I would forego any additional hormone modulating therapies. Patient counseled on risks, benefits, and alternatives of treatment plan at length while in the office today. Patient states an understandingand willingness to proceed with plan. I spent 30 minutes total on the day of the visit obtaining history, reviewing imaging and laboratory results, performing a physical exam and providing patient education and counseling. Lenin De Los Santos MD 11/09/2024 6:25 PM documented in this encounter 11-09-2024 Note General Surgery History and Physical Lenin De Los Santos MD, MPH Patient ID: Socorro Gonsales [id number] 29 y.o. 1995 CHIEF COMPLAINT: Chief Complaint Patient presents with Breast Problem Est Pt. Left breast pain. [place] ER Referral HPI: Socorro Gonsales is a 29 y.o. female who presents as a referral from [place] emergency department with concerns for some left chest wall and breast pain. She went to the emergency department last evening and was thoroughly evaluated given complaints of left chest, flank, inframammary pain. She was concerned she may have nephrolithiasis. Lab work was obtained which was entirely normal. No imaging was obtained as the urinalysis was also normal. She was recommended to have close outpatient follow-up with me and we are able to accommodate a same-day visit upon request. During examination today, the patient notes that she had 10 out of 10 stabbing left upper quadrant, left flank, and left breast pain yesterday. She has no idea what caused this onset of pain. She was given narcotic medications with improvement in the emergency department. Her pain is now 5 out of 10 today. There is tenderness to palpation. She was diagnosed with possibly pleurisy but denies any fluctuation with breathing. She does vape daily and I encouraged her to stop this. She denies any current nipple discharge or abnormalities in the bilateral breasts aside from the pain to palpation on exam just inferior to the nipple on the left. She is interested in obtaining additional imaging but would like to avoid any significant ionizing radiation, CT imaging, appropriately so. The patient has not taken much in terms of pain medication for this aside from the narcotics received in the ER. She is planning on trialing anti-inflammatory and Tylenol at home. Recall, I have seen the patient multiple times in the past. I originally saw her with complaints of bilateral nipple discharge that was extensively evaluated with imaging and since resolved. She underwent extensive workup including MRI which did not demonstrate any findings. The patient does have young, healthy dense breasts with suspected fibrocystic disease. She had similar complaints in the right breast previously. Ultrasound and MRI did not demonstrate abnormality. The complaints did subside. I then did also evaluate her for some abdominal complaints and she has escalated her care through gastroenterology as well as now referrals through the [facility]. She follows a special gastroparesis diet and follows with gastroenterology and dietary through [facility]. Past Medical History: Diagnosis Date Asthma 2000 Engages in vaping Hiatal hernia with gastroesophageal reflux History of hysterectomy 2021 Pancreatitis 2019 ? accurate Past Surgical History: Procedure Laterality Date ABDOMINAL ADHESION SURGERY 2020 and 2021 APPENDECTOMY 2020 CHOLECYSTECTOMY 2020 COLONOSCOPY 2020 CYSTOSCOPY EXPLORATORY LAPAROTOMY 2019 PARTIAL HYSTERECTOMY 2021 TUBAL LIGATION Medications Prior to Visit: Prior to Admission medications Medication Sig Start Date End Date Taking? Authorizing Provider Acetaminophen Extra Strength 500 MG tablet Take 1,000 mg by mouth every 6 hours as needed. 05/05/22 Yes Historical Provider, albuterol 108 (90 Base) MCG/ACT inhaler Inhale 2 puffs every 6 hours as needed. 08/17/20 Yes Historical Provider, albuterol 108 (90 Base) MCG/ACT inhaler inhale 2 puffs by mouth and INTO THE LUNGS every 6 hours if neede... (REFER TO PRESCRIPTION NOTES). 06/03/22 Yes Historical Provider, dicyclomine (Bentyl) 10 MG capsule Take 2 capsules (20 mg) by mouth in the morning and 2 capsules (20 mg) at noon and 2 capsules (20 mg) in the evening and 2 capsules (20 mg) before bedtime. 06/08/23 06/07/24 Yes Lenin De Los Santos MD pantoprazole (ProtoNix) 40 MG EC tablet Take 1 tablet (40 mg) by mouth every morning (before breakfast). Do not crush, chew, or split. 06/08/23 10/06/23 Yes Lenin De Los Santos MD psyllium (Metamucil) 58.6 % packet Take 1 packet (3.4 g of fiber) by mouth daily. Mix and drink with at least 8 ounces of water or juice. 06/08/23 07/15/23 Yes Lenin De Los Santos MD Allergies: Keflex [cephalexin], Morphine, Ondansetron, Seasonal ic [octacosanol], Codeine, Gabapentin, and Latex Social History Socioeconomic History Marital status: Significant Other Tobacco Use Smoking status: Former Types: Cigarettes Smokeless tobacco: Former Tobacco comments: Vape Use Vaping Use Vaping status: Every Day Substances: Nicotine Substance and Sexual Activity Alcohol use: Yes Comment: social Drug use: Never Social History Narrative Single, engaged and living with Derek gómez. has one son Gonzalo born in 2016 and one dtr Iglesia born in 2018. VAPING, now with [facility], [place]- moving pts and in office. no ETOH excess. Stopped vaping 07/[address] (more content not included)... [facility] 11-09-2024 Telephone encounter Note Name of Caller: Socorro Contact Reason for Appointment: Patient states that they were just in the ER and the ER doctor wanted them to get in to see Dr. Sachin LIM due to pain under their breasts. Patient is expressing urgency and states that the ER doctor scared them as they seemed very concerned and they would like to receive a call back RAPHAEL. Please advise. Office Name: General Surgery Medication Refills need, if any: N/A Medication Name: N/A [facility]09-[facility]24 Miscellaneous Notes Name of Caller: Socorro Contact Reason for Appointment: Patient states that they were just in the ER and the ER doctor wanted them to get in to see Dr. Sachin LIM due to pain under their breasts. Patient is expressing urgency and states that the ER doctor scared them as they seemed very concerned and they would like to receive a call back RAPHAEL. Please advise. Office Name: General Surgery Medication Refills need, if any: N/A Medication Name: N/A documented in this encounter 11-08-2024 Emergency department Note EMERGENCY DEPARTMENT ENCOUNTER Pt Name: Socorro Gonsales Birthdate 1995 Date of evaluation: 11/08/2024 ED Provider: Reza Palomo DO CHIEF COMPLAINT Left flank pain HISTORY OF PRESENT ILLNESS HPI Socorro Gonsales is a 29 y.o. who presents to the emergency department with a chief complaint of left flank pain. Starts in left flank and radiates into the left upper quadrant of the abdomen. Ongoing for the past 6 hours. Started somewhat suddenly. Does note symptoms seem worse after she urinates but denies any hematuria. No fevers or chills. No nausea, vomiting, diarrhea. Patient does note multiple previous abdominal surgeries but most recent surgery was the hysterectomy in 2021. No recent travel. No diet or medication changes. No recent injury or trauma to the area as well. Nursing Notes were reviewed. REVIEW OF SYSTEMS Review of Systems Pertinent positives and negatives as per HPI PAST MEDICAL HISTORY Past Medical History: Diagnosis Date Asthma 2000 Engages in vaping Hiatal hernia with gastroesophageal reflux History of hysterectomy 2021 Pancreatitis 2019 ? accurate SURGICAL HISTORY Past Surgical History: Procedure Laterality Date ABDOMINAL ADHESION SURGERY 2020 and 2021 APPENDECTOMY 2020 CHOLECYSTECTOMY 2020 COLONOSCOPY 2020 CYSTOSCOPY EXPLORATORY LAPAROTOMY 2019 PARTIAL HYSTERECTOMY 2021 TUBAL LIGATION CURRENT MEDICATIONS Discharge Medication List as of 11/08/2024 7:48 PM CONTINUE these medications which have NOT CHANGED Details Acetaminophen Extra Strength 500 MG tablet Take 1,000 mg by mouth every 6 hours as needed., Starting 05/05/2022, Historical Med albuterol 108 (90 Base) MCG/ACT inhaler Inhale 2 puffs every 6 hours as needed., Starting 08/17/2020, Historical Med fluticasone (Flonase) 50 MCG/ACT nasal spray 2 sprays in the morning., Starting 07/04/2023, Historical Med ALLERGIES Keflex [cephalexin], Morphine, Ondansetron, Seasonal ic [octacosanol], Codeine, Gabapentin, and Latex FAMILY HISTORY Family History Problem Relation Name Age of Onset Other Mother Ramya summer Good pastures synd 07/31 fall with ICH, on Dialysis age 48 Kidney failure Mother summer Seizures Mother summer Hypertension Mother summer No Known Problems Father no contact with No Known Problems Sister Odilia No Known Problems Brother Charisse SOCIAL HISTORY Social History Socioeconomic History Marital status: Significant Other Tobacco Use Smoking status: Former Types: Cigarettes Smokeless tobacco: Former Tobacco comments: Vape Use Vaping Use Vaping status: Every Day Substances: Nicotine Substance and Sexual Activity Alcohol use: Yes Comment: social Drug use: Never Social History Narrative Single, engaged and living with rico Derek. has one son Gonzalo born in 2016 and one dtr Iglesia born in 2018. 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 no ETOH excess. Stopped vaping 07/02 Social Drivers of Health Financial Resource Strain: Low Risk (06/20/2024) Overall Financial Resource Strain (CARDIA) Difficulty of Paying Living Expenses: Not hard at all Food Insecurity: No Food Insecurity (06/20/2024) Hunger Vital Sign Worried About Running Out of Food in the Last Year: Never true Ran Out of Food in the Last Year: Never true Transportation Needs: No Transportation Needs (06/20/2024) PRAPARE - Transportation Lack of Transportation (Medical): No Lack of Transportation (Non-Medical): No Physical Activity: Sufficiently Active (06/20/2024) Exercise Vital Sign Days of Exercise per Week: 5 days Minutes of Exercise per Session: 60 min Stress: No Stress Concern Present (06/20/2024) [employer] - Occupational Stress Questionnaire Feeling of Stress : Not at all Social Connections: Moderately Isolated (06/20/2024) Social Connection and Isolation Panel [NHANES] Frequency of Communication with Friends and Family: More than three times a week Frequency of Social Gatherings with Friends and Family: More than three times a week Attends Restorationism Services: Never Active Member of Clubs or Organizations: No Attends Club or Organization Meetings: Never Marital Status: Living with partner Housing Stability: Low Risk (06/20/2024) Housing Stability Vital Sign Unable to Pay for Housing in the Last Year: No Number of Times Moved in the Last Year: 0 Homeless in the Last Year: No PHYSICAL EXAM ED Triage Vitals [11/08/24 1755] Temp Heart Rate Resp BP 36.8 C (98.2 F) 90 16 120/69 SpO2 Temp Source Heart Rate Source Patient Position 99 % Oral -- -- BP Location FiO2 (%) -- -- Physical Exam Vitals and nursing note reviewed. Constitutional: General: She is not in acute distress. Appearance: She is well-developed. HENT: Head: Normocephalic and atraumatic. Eyes: Conjunctiva/sclera: Conjunctivae normal. Cardiovascular: Rate and Rhythm: Normal rate and regular rhythm. Heart sounds: No murmur heard. Pulmonary: Effort: Pulmonary effort is normal. No respiratory distress. Breath sounds: Normal breath sounds. Abdominal: Palpations: Abdomen is soft. Tenderness: There is abdominal tenderness (LUQ). There is left CVA tenderness. There is no guarding or rebound. Musculoskeletal: General: No swelling. Cervical back: Neck supple. Skin: General: Skin is warm and dry. Capillary Refill: Capillary refill takes less than 2 seconds. Neurological: Mental Status: She is alert and oriented to person, place, and time. Psychiatric: Mood and Affect: Mood normal. DIAGNOSTIC RESULTS RADIOLOGY (Per Emergency Physician): Interpretation per the Radiologist below, if available at the time of this note: No orders to display LABS: Labs Reviewed CBC (HEMOGRAM) - Normal Result Value Auto WBC 8.5 RBC 4.61 Hemoglobin 14.4 Hematocrit 42.3 MCV 91.8 MCH 31.2 MCHC 34.0 RDW 12.9 Platelets 337 MPV 9.4 BASIC METABOLIC PANEL - Normal SODIUM 138 POTASSIUM 4.8 CHLORIDE 107 CARBON DIOXIDE 23 UREA NITROGEN 12 CREATININE 0.82 GLUCOSE 79 CALCIUM 10.0 ANION GAP 8 eGFR >90.0 COMPLETE URINALYSIS - Normal Color, Urine Light Yellow Clarity, Urine Clear pH, Urine 7.0 Leukocytes, Urine Negative Nitrite, Urine Negative Protein, Urine Negative Glucose, Urine Normal Bilirubin, Urine Negative Ketones, Urine Negative Urobilinogen, Urine Normal Blood, Urine Negative SPECIFIC GRAVITY OF URINE (NUMERIC) 1.019 COMPLETE URINALYSIS WITH REFLEX TO CULTURE Narrative: The following orders were created for panel order Complete Urinalysis with reflex to Culture. Procedure Abnormality Status --------- ------ Complete Urinalysis[[id number]] Normal Final result Please view results for these tests on the individual orders. HCG QUALITATIVE URINE HCG,URINE QUAL Negative Narrative: is the most common reason for HCG in urine, although choriocarcinoma, hydatidiform mole, and certain nontrophoblastic malignancies also result in detectable urinary HCG levels. Sensitivity = 20mIU/mL. All other labs were within normal range or not returned as of this dictation. EMERGENCY DEPARTMENT COURSE and DIFFERENTIAL DIAGNOSIS/MDM: Vitals: Vitals: 11/08/24 1755 BP: 120/69 Pulse: 90 Resp: 16 Temp: 36.8 C (98.2 F) TempSrc: Oral SpO2: 99% Weight: 68 kg (150 lb) Height: 1.651 m (5' 5) Medications sodium chloride 0.9 % bolus 1,000 mL (0 mL IntraVENous Stopped 11/08/242002) HYDROmorphone (Dilaudid) injection 0.5 mg (0.5 mg IntraVENous Given 11/08/241902) HYDROcodone-acetaminophen (Hague) 5-325 MG per tablet 1 tablet (1 tablet Oral Given 11/08/241953) Patient presented with chief complaint of left-sided flank pain with radiation to left upper quadrant of abdomen. Afebrile stable vital signs. Based on the degree of discomfort. Acute pain treated. Initially ordered a renal ultrasound because patient has had multiple negative CT imaging studies in the past year and would like to avoid further radiation exposure. Renal ultrasound not available this time so we did initially start workup with CBC, BMP, urine analysis. 7:05PM: As it is now the end of my shift, I have signed out Socorro's care to the oncoming physician: Dr. Agustin. We discussed the patient's presentation, relevant exam findings and workup results thus far as well as working diagnosis and treatment plan. Please see their update note for final impressions and disposition. FINAL IMPRESSION 1. Pleurisy DISPOSITION Discharge 11/08/2024 07:47:56 PM PATIENT REFERRED TO: DO [address] [facility] [id number] DISCHARGE MEDICATIONS: Discharge Medication List as of 11/08/2024 7:48 PM START taking these medications Details naproxen (Naprosyn) 500 MG tablet Take 1 tablet (500 mg) by mouth 2 times daily (with meals) for 4 days., Starting 11/08/2024, Until 11/12/2024, Normal (Comment: Please note this report has been produced using speech recognition software and may contain errors related to that system including errors in grammar, punctuation, and spelling, as well as words and phrases that may be inappropriate. If there are any questions or concerns please feel free to contact the dictating provider for clarification.) Reza Palomo DO (electronically signed) Emergency Medicine Provider Reza Palomo DO 11/08/248 Pt to ER with complaint of left lower rib cage pain that wraps around to left flank and back area. Sudden onset noon today. Denies fever, chills, nausea, vomiting, diarrhea, urinary symptoms. States back pain worsens after she urinates. Pt ambulatory on arrival with steady gait. Alert and oriented x 4. Skin warm and dry. Respirations even and unlabored. Pt to bathroom for urine specimen collection. Call light in reach documented in this encounter 11-08-2024 Emergency department Triage note Pt to ER with complaint of left lower rib cage pain that wraps around to left flank and back area. Sudden onset noon today. Denies fever, chills, nausea, vomiting, diarrhea, urinary symptoms. States back pain worsens after she urinates. Pt ambulatory on arrival with steady gait. Alert and oriented x 4. Skin warm and dry. Respirations even and unlabored. Pt to bathroom for urine specimen collection. Call light in reach 11-08-2024 Physician Emergency department Note EMERGENCY DEPARTMENT ENCOUNTER Pt Name: Socorro Gonsales Birthdate 1995 Date of evaluation: 11/08/2024 ED Provider: Reza Palomo DO CHIEF COMPLAINT Left flank pain HISTORY OF PRESENT ILLNESS HPI Socorro Gonsales is a 29 y.o. who presents to the emergency department with a chief complaint of left flank pain. Starts in left flank and radiates into the left upper quadrant of the abdomen. Ongoing for the past 6 hours. Started somewhat suddenly. Does note symptoms seem worse after she urinates but denies any hematuria. No fevers or chills. No nausea, vomiting, diarrhea. Patient does note multiple previous abdominal surgeries but most recent surgery was the hysterectomy in 2021. No recent travel. No diet or medication changes. No recent injury or trauma to the area as well. Nursing Notes were reviewed. REVIEW OF SYSTEMS Review of Systems Pertinent positives and negatives as per HPI PAST MEDICAL HISTORY Past Medical History: Diagnosis Date Asthma 2000 Engages in vaping Hiatal hernia with gastroesophageal reflux History of hysterectomy 2021 Pancreatitis 2019 ? accurate SURGICAL HISTORY Past Surgical History: Procedure Laterality Date ABDOMINAL ADHESION SURGERY 2020 and 2021 APPENDECTOMY 2020 CHOLECYSTECTOMY 2020 COLONOSCOPY 2020 CYSTOSCOPY EXPLORATORY LAPAROTOMY 2019 PARTIAL HYSTERECTOMY 2021 TUBAL LIGATION CURRENT MEDICATIONS Discharge Medication List as of 11/08/2024 7:48 PM CONTINUE these medications which have NOT CHANGED Details Acetaminophen Extra Strength 500 MG tablet Take 1,000 mg by mouth every 6 hours as needed., Starting 05/05/2022, Historical Med albuterol 108 (90 Base) MCG/ACT inhaler Inhale 2 puffs every 6 hours as needed., Starting 08/17/2020, Historical Med fluticasone (Flonase) 50 MCG/ACT nasal spray 2 sprays in the morning., Starting 07/04/2023, Historical Med ALLERGIES Keflex [cephalexin], Morphine, Ondansetron, Seasonal ic [octacosanol], Codeine, Gabapentin, and Latex FAMILY HISTORY Family History Problem Relation Name Age of Onset Other Mother Ramyasummer Good pastures synd 07/31 fall with ICH, on Dialysis age 48 Kidney failure Mother summer Seizures Mother summer Hypertension Mother summer No Known Problems Father no contact with No Known Problems Sister Odilia No Known Problems Brother Charisse SOCIAL HISTORY Social History Socioeconomic History Marital status: Significant Other Tobacco Use Smoking status: Former Types: Cigarettes Smokeless tobacco: Former Tobacco comments: Vape Use Vaping Use Vaping status: Every Day Substances: Nicotine Substance and Sexual Activity Alcohol use: Yes Comment: social Drug use: Never Social History Narrative Single, engaged and living with Derek gómez. has one son Gonzalo born in 2016 and one dtr Iglesia born in 2018. 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 no ETOH excess. Stopped vaping 07/02 Social Drivers of Health Financial Resource Strain: Low Risk (06/20/2024) Overall Financial Resource Strain (CARDIA) Difficulty of Paying Living Expenses: Not hard at all Food Insecurity: No Food Insecurity (06/20/2024) Hunger Vital Sign Worried About Running Out of Food in the Last Year: Never true Ran Out of Food in the Last Year: Never true Transportation Needs: No Transportation Needs (06/20/2024) PRAPARE - Transportation Lack of Transportation (Medical): No Lack of Transportation (Non-Medical): No Physical Activity: Sufficiently Active (06/20/2024) Exercise Vital Sign Days of Exercise per Week: 5 days Minutes of Exercise per Session: 60 min Stress: No Stress Concern Present (06/20/2024) [employer] - Occupational Stress Questionnaire Feeling of Stress : Not at all Social Connections: Moderately Isolated (06/20/2024) Social Connection and Isolation Panel [NHANES] Frequency of Communication with Friends and Family: More than three times a week Frequency of Social Gatherings with Friends and Family: More than three times a week Attends Restorationism Services: Never Active Member of Clubs or Organizations: No Attends Club or Organization Meetings: Never Marital Status: Living with partner Housing Stability: Low Risk (06/20/2024) Housing Stability Vital Sign Unable to Pay for Housing in the Last Year: No Number of Times Moved in the Last Year: 0 Homeless in the Last Year: No PHYSICAL EXAM ED Triage Vitals [11/08/24 1755] Temp Heart Rate Resp BP 36.8 C (98.2 F) 90 16 120/69 SpO2 Temp Source Heart Rate Source Patient Position 99 % Oral -- -- BP Location FiO2 (%) -- -- Physical Exam Vitals and nursing note reviewed. Constitutional: General: She is not in acute distress. Appearance: She is well-developed. HENT: Head: Normocephalic and atraumatic. Eyes: Conjunctiva/sclera: Conjunctivae normal. Cardiovascular: Rate and Rhythm: Normal rate and regular rhythm. Heart sounds: No murmur heard. Pulmonary: Effort: Pulmonary effort is normal. No respiratory distress. Breath sounds: Normal breath sounds. Abdominal: Palpations: Abdomen is soft. Tenderness: There is abdominal tenderness (LUQ). There is left CVA tenderness. There is no guarding or rebound. Musculoskeletal: General: No swelling. Cervical back: Neck supple. Skin: General: Skin is warm and dry. Capillary Refill: Capillary refill takes less than 2 seconds. Neurological: Mental Status: She is alert and oriented to person, place, and time. Psychiatric: Mood and Affect: Mood normal. DIAGNOSTIC RESULTS RADIOLOGY (Per Emergency Physician): Interpretation per the Radiologist below, if available at the time of this note: No orders to display LABS: Labs Reviewed CBC (HEMOGRAM) - Normal Result Value Auto WBC 8.5 RBC 4.61 Hemoglobin 14.4 Hematocrit 42.3 MCV 91.8 MCH 31.2 MCHC 34.0 RDW 12.9 Platelets 337 MPV 9.4 BASIC METABOLIC PANEL - Normal SODIUM 138 POTASSIUM 4.8 CHLORIDE 107 CARBON DIOXIDE 23 UREA NITROGEN 12 CREATININE 0.82 GLUCOSE 79 CALCIUM 10.0 ANION GAP 8 eGFR >90.0 COMPLETE URINALYSIS - Normal Color, Urine Light Yellow Clarity, Urine Clear pH, Urine 7.0 Leukocytes, Urine Negative Nitrite, Urine Negative Protein, Urine Negative Glucose, Urine Normal Bilirubin, Urine Negative Ketones, Urine Negative Urobilinogen, Urine Normal Blood, Urine Negative SPECIFIC GRAVITY OF URINE (NUMERIC) 1.019 COMPLETE URINALYSIS WITH REFLEX TO CULTURE Narrative: The following orders were created for panel order Complete Urinalysis with reflex to Culture. Procedure Abnormality Status --------- ------ Complete Urinalysis[[id number]] Normal Final result Please view results for these tests on the individual orders. HCG QUALITATIVE URINE HCG,URINE QUAL Negative Narrative: is the most common reason for HCG in urine, although choriocarcinoma, hydatidiform mole, and certain nontrophoblastic malignancies also result in detectable urinary HCG levels. Sensitivity = 20mIU/mL. All other labs were within normal range or not returned as of this dictation. EMERGENCY DEPARTMENT COURSE and DIFFERENTIAL DIAGNOSIS/MDM: Vitals: Vitals: 11/08/24 1755 BP: 120/69 Pulse: 90 Resp: 16 Temp: 36.8 C (98.2 F) TempSrc: Oral SpO2: 99% Weight: 68 kg (150 lb) Height: 1.651 m (5' 5) Medications sodium chloride 0.9 % bolus 1,000 mL (0 mL IntraVENous Stopped 11/08/242002) HYDROmorphone (Dilaudid) injection 0.5 mg (0.5 mg IntraVENous Given 11/08/241902) HYDROcodone-acetaminophen (Hague) 5-325 MG per tablet 1 tablet (1 tablet Oral Given 11/08/241953) Patient presented with chief complaint of left-sided flank pain with radiation to left upper quadrant of abdomen. Afebrile stable vital signs. Based on the degree of discomfort. Acute pain treated. Initially ordered a renal ultrasound because patient has had multiple negative CT imaging studies in the past year and would like to avoid further radiation exposure. Renal ultrasound not available this time so we did initially start workup with CBC, BMP, urine analysis. 7:05PM: As it is now the end of my shift, I have signed out Socorro's care to the oncoming physician: Dr. Agustin. We discussed the patient's presentation, relevant exam findings and workup results thus far as well as working diagnosis and treatment plan. Please see their update note for final impressions and disposition. FINAL IMPRESSION 1. Pleurisy DISPOSITION Discharge 11/08/2024 07:47:56 PM PATIENT REFERRED TO: Philippe Chua, DO [address] [facility] [address] [facility] [id number] DISCHARGE MEDICATIONS: Discharge Medication List as of 11/08/2024 7:48 PM START taking these medications Details naproxen (Naprosyn) 500 MG tablet Take 1 tablet (500 mg) by mouth 2 times daily (with meals) for 4 days., Starting 11/08/2024, Until 11/12/2024, Normal (Comment: Please note this report has been produced using speech recognition software and may contain errors related to that system including errors in grammar, punctuation, and spelling, as well as words and phrases that may be inappropriate. If there are any questions or concerns please feel free to contact the dictating provider for clarification.) Reza Palomo DO (electronically signed) Emergency Medicine Provider Reza Palomo DO 11/08/242216 Work Phone: 10-21-2024 Hospital Discharge instructions Ashely Abdi MD - 10/21/2024 2:08 PM EDT Come back to the emergency department if your flank pain is worsening. The following attachments cannot be sent through Care [email or web address] (Citizen Of [place])documented in this encounter 10-21-2024 Emergency department Triage note Pt ambulatory to ED14 with c/o flu like s/s. Pt states all my skin feels like bad sunburn since last night. She also reports a fever last night, afebrile here. +cough/congestion/green sputum since . Pt just finished abx Wednesday for strep. Pt is A&Ox3, respirations even and unlabored, skin warm and dry, no distress noted. Pt states she went to [facility] [employer] and was told they could not treat her there. 10-21-2024 Emergency department Note Pt ambulatory to ED14 with c/o flu like s/s. Pt states all my skin feels like bad sunburn since last night. She also reports a fever last night, afebrile here. +cough/congestion/green sputum since . Pt just finished abx Wednesday for strep. Pt is A&Ox3, respirations even and unlabored, skin warm and dry, no distress noted. Pt states she went to [facility] [employer] and was told they could not treat her there. Emergency Department Encounter Pt Name: Socorro Gonsales Birthdate 1995 Date of evaluation: 10/21/2024 Provider: Ashely Abdi MD CHIEF COMPLAINT Chief Complaint Patient presents with Flu Symptoms Generalized Body Aches Nasal Congestion HISTORY OF PRESENT ILLNESS HPI Socorro Gonsales is a 28 y.o. female with history that includes asthma, hysterectomy, presenting to the Emergency Department for evaluation of productive cough, fever of 101.2, nasal congestion, rhinorrhea, irritated throat for last couple days. Has also had left flank pain with no urinary symptoms and no GI symptoms. States that she went to urgent care to be evaluated today and was told that the provider there could not help her and she was directed to come to the emergency department. She has no history of IVDU, no numbness or weakness, no bowel or bladder change. Recently completed a course of antibiotics for strep throat and had returned back to normal. Nursing Notes were reviewed. Past Medical History: Diagnosis Date Asthma 2000 Engages in vaping Hiatal hernia with gastroesophageal reflux History of hysterectomy 2021 Pancreatitis 2019 ? accurate REVIEW OF SYSTEMS Several elements of the ROS reviewed and otherwise acutely negative except as in the HPI. PHYSICAL EXAM ED Triage Vitals Temp Heart Rate Resp BP 10/21/24 1251 10/21/24 1252 10/21/24 1252 10/21/24 1252 36.3 C (97.3 F) 107 16 (!) 96/46 SpO2 Temp Source Heart Rate Source Patient Position 10/21/24 1251 10/21/24 1251 -- -- 99 % Temporal BP Location FiO2 (%) -- -- Physical Exam Vitals and nursing note reviewed. Constitutional: General: She is not in acute distress. Appearance: She is well-developed. She is not ill-appearing. HENT: Head: Normocephalic and atraumatic. Nose: Congestion present. Mouth/Throat: Mouth: Mucous membranes are moist. Pharynx: No oropharyngeal exudate or posterior oropharyngeal erythema. Eyes: Conjunctiva/sclera: Conjunctivae normal. Cardiovascular: Rate and Rhythm: Normal rate and regular rhythm. Heart sounds: No murmur heard. Pulmonary: Effort: Pulmonary effort is normal. No respiratory distress. Breath sounds: Normal breath sounds. Abdominal: Palpations: Abdomen is soft. Tenderness: There is no abdominal tenderness. There is left CVA tenderness (minimal). There is no right CVA tenderness. Musculoskeletal: General: No swelling. Cervical back: Neck supple. Skin: General: Skin is warm and dry. Capillary Refill: Capillary refill takes less than 2 seconds. Neurological: Mental Status: She is alert. Comments: Strength 5/5 with bilateral shoulder extension and bilateral hip flexion. Sensation to light touch intact in bilateral upper and lower extremities. Psychiatric: Mood and Affect: Mood normal. EMERGENCY DEPARTMENT COURSE and DIFFERENTIAL DIAGNOSIS/MDM: Differential diagnoses include: Viral syndrome, UTI, less likely kidney stone. Workup was initiated with a COVID flu RSV swab and urinalysis. The urinalysis was not consistent with a UTI, and she tested positive for influenza which likely explains her symptoms. I considered obtaining CT abdomen pelvis without IV contrast to assess for possibility of kidney stone but I think this is quite unlikely. I think the flank pain is more related to myalgia from influenza. We will therefore plan for discharge but I instructed her to return to the ED if her flank pain worsens or if she develops new symptoms which she promises to do. ED course: ED Course as of 10/21/241414 Sat Oct 21, 2024 1358 UA not consistent with UTI [AK] ED Course User Index [AK] Ashely Abdi MD Diagnoses as of 10/21/241414 Influenza A Flank pain ED medications managed: She declined pain medications DISPOSITION/PLAN Discharge 10/21/2024 02:08:01 PM PATIENT REFERRED TO: Philippe Chua DO [address] [facility] [address] [facility] [phone] Schedule an appointment as soon as possible for a visit in 1 week As needed Ashely Abdi MD Emergency Medicine Ashely Abdi MD 10/21/241414 documented in this encounter 10-21-2024 Physician Emergency department Note Emergency Department Encounter Pt Name: Socorro Gonsales Birthdate 1995 Date of evaluation: 10/21/2024 Provider: Ashely Abdi MD CHIEF COMPLAINT Chief Complaint Patient presents with Flu Symptoms Generalized Body Aches Nasal Congestion HISTORY OF PRESENT ILLNESS HPI Socorro Gonsales is a 28 y.o. female with history that includes asthma, hysterectomy, presenting to the Emergency Department for evaluation of productive cough, fever of 101.2, nasal congestion, rhinorrhea, irritated throat for last couple days. Has also had left flank pain with no urinary symptoms and no GI symptoms. States that she went to urgent care to be evaluated today and was told that the provider there could not help her and she was directed to come to the emergency department. She has no history of IVDU, no numbness or weakness, no bowel or bladder change. Recently completed a course of antibiotics for strep throat and had returned back to normal. Nursing Notes were reviewed. Past Medical History: Diagnosis Date Asthma 2000 Engages in vaping Hiatal hernia with gastroesophageal reflux History of hysterectomy 2021 Pancreatitis 2019 ? accurate REVIEW OF SYSTEMS Several elements of the ROS reviewed and otherwise acutely negative except as in the HPI. PHYSICAL EXAM ED Triage Vitals Temp Heart Rate Resp BP 10/21/24 1251 10/21/24 1252 10/21/24 1252 10/21/24 1252 36.3 C (97.3 F) 107 16 (!) 96/46 SpO2 Temp Source Heart Rate Source Patient Position 10/21/24 1251 10/21/24 1251 -- -- 99 % Temporal BP Location FiO2 (%) -- -- Physical Exam Vitals and nursing note reviewed. Constitutional: General: She is not in acute distress. Appearance: She is well-developed. She is not ill-appearing. HENT: Head: Normocephalic and atraumatic. Nose: Congestion present. Mouth/Throat: Mouth: Mucous membranes are moist. Pharynx: No oropharyngeal exudate or posterior oropharyngeal erythema. Eyes: Conjunctiva/sclera: Conjunctivae normal. Cardiovascular: Rate and Rhythm: Normal rate and regular rhythm. Heart sounds: No murmur heard. Pulmonary: Effort: Pulmonary effort is normal. No respiratory distress. Breath sounds: Normal breath sounds. Abdominal: Palpations: Abdomen is soft. Tenderness: There is no abdominal tenderness. There is left CVA tenderness (minimal). There is no right CVA tenderness. Musculoskeletal: General: No swelling. Cervical back: Neck supple. Skin: General: Skin is warm and dry. Capillary Refill: Capillary refill takes less than 2 seconds. Neurological: Mental Status: She is alert. Comments: Strength 5/5 with bilateral shoulder extension and bilateral hip flexion. Sensation to light touch intact in bilateral upper and lower extremities. Psychiatric: Mood and Affect: Mood normal. EMERGENCY DEPARTMENT COURSE and DIFFERENTIAL DIAGNOSIS/MDM: Differential diagnoses include: Viral syndrome, UTI, less likely kidney stone. Workup was initiated with a COVID flu RSV swab and urinalysis. The urinalysis was not consistent with a UTI, and she tested positive for influenza which likely explains her symptoms. I considered obtaining CT abdomen pelvis without IV contrast to assess for possibility of kidney stone but I think this is quite unlikely. I think the flank pain is more related to myalgia from influenza. We will therefore plan for discharge but I instructed her to return to the ED if her flank pain worsens or if she develops new symptoms which she promises to do. ED course: ED Course as of 10/21/241414 Sat Oct 21, 2024 1358 UA not consistent with UTI [AK] ED Course User Index [AK] Ashely Abdi MD Diagnoses as of 10/21/241414 Influenza A Flank pain ED medications managed: She declined pain medications DISPOSITION/PLAN Discharge 10/21/2024 02:08:01 PM PATIENT REFERRED TO: Philippe Chua DO [address] [facility] [address] [facility] [phone] Schedule an appointment as soon as possible for a visit in 1 week As needed Ashely Abdi MD Emergency Medicine Ashely Abdi MD 10/21/241414 10-21-2024 Note HNO ID: [id number] Author: MARVA STANLEY APRN.ENGINE DISPATCHER Service: ? Author Type: Nurse Practitioner Type: Progress Notes Filed: 10/21/2024 12:10 Note Text: Patient came in with complaints of left-sided flank pain. Patient says she spiked a fever before she got the pain. Patient is currently on Tylenol and has a temp of 99 5. Patient says it radiates and wraps around her stomach. Patient was extremely tender when I assessed her. At this time patient is being referred to the emergency room due to pain and fever. Patient was agreeable and will take her self. [facility] 10-21-2024 History of Present illness Narrative Patient came in with complaints of left-sided flank pain. Patient says she spiked a fever before she got the pain. Patient is currently on Tylenol and has a temp of 99 5. Patient says it radiates and wraps around her stomach. Patient was extremely tender when I assessed her. At this time patient is being referred to the emergency room due to pain and fever. Patient was agreeable and will take her self. documented in this encounter [facility] 10-07-2024 Note HNO ID: [id number] Author: JAGUAR PERSON APRN.CNP Service: ? Author Type: Nurse Practitioner Type: Progress Notes Filed: 10/07/2024 14:21 Note Text: Subjective HPI Nontoxic-appearing 28-year-old female presents urgent care chief complaint cough chest congestion sore throat headache low-grade fever body aches chills fatigue. Duration of symptoms 3 to 4 days. Associated symptoms listed above. Presents today for evaluation. Most bothersome symptom today is sore throat cough. No difficulty swallowing and secretion decreased range of motion of neck or trismus. No difficulty handling secretions. Past medical history prescription medications allergies reviewed. .Patient presents with: Flu Like Symptoms PAST MEDICAL HISTORY Diagnosis Date Anemia anxiety Asthma PAST SURGICAL HISTORY Procedure Laterality Date LAPAROSCOPY W/RMVL ADNEXAL STRUCTURES Bilateral 04/28/2018 l/s bilateral salpingectomy PAST SURGICAL HISTORY OF wisdom teeth PAST SURGICAL HISTORY OF 03/2020 exploratory laparoscopy VAGINAL HYSTERECTOMY 2021 ALLERGIES Codeine, Gabapentin, Latex, Oxycodone, Seasonal Allergies, and Zofran [Ondansetron] MEDICATIONS benzonatate (TESSALON PERLE) 100 mg capsule Take 1 capsule by mouth three times a day as needed. traMADol (ULTRAM) 50 mg tablet Take 50-100 mg by mouth every 6 hours as needed. (Patient not taking: Reported on 09/17/2024) albuterol HFA (PROVENTIL HFA, VENTOLIN HFA) 90 mcg/actuation inhaler Inhale 2 Puffs as instructed every 6 hours as needed for wheezing/shortness of breath. fluticasone (FLONASE) 50 mcg/actuation nasal spray Use 2 Sprays in each nostril once daily. Rinse mouth after use. FAMILY HISTORY Problem Relation Age of Onset Heart Mother Seizures Mother Stroke Mother Multiple Sclerosis Mother Psychiatry Sister Manic Depression Hypertension Maternal Grandfather Breast Cancer Maternal Aunt Hypertension Maternal Uncle Social History Tobacco Use Smoking status: Some Days Types: Cigarettes Smokeless tobacco: Never Substance Use Topics Alcohol use: Yes Comment: rarely Drug use: No BP 104/67 Pulse 91 Temp 37.7 ?C (99.8 ?F) Resp 16 Wt 64.6 kg (142 lb 6.7 oz) LMP 03/25/2022 SpO2 100% BMI 23.70 kg/m? Review of Systems Constitutional: Positive for chills, fever and malaise/fatigue. HENT: Positive for congestion and sore throat. Negative for ear discharge, ear pain and sinus pain. Eyes: Negative for blurred vision, pain, discharge and redness. Respiratory: Positive for cough. Negative for hemoptysis, sputum production, shortness of breath, wheezing and stridor. Cardiovascular: Negative for chest pain. Gastrointestinal: Negative for abdominal pain, diarrhea, nausea and vomiting. Musculoskeletal: Positive for myalgias. Skin: Negative for itching and rash. Neurological: Positive for headaches. Negative for dizziness. Objective Physical Exam Constitutional: General: She is not in acute distress. Appearance: She is not diaphoretic. HENT: Head: Normocephalic. Jaw: No trismus, tenderness, swelling or pain on movement. Right Ear: Tympanic membrane, ear canal and external ear normal. Left Ear: Tympanic membrane, ear canal and external ear normal. Mouth/Throat: Mouth: Mucous membranes are moist. Pharynx: Oropharynx is clear. Uvula midline. Posterior oropharyngeal erythema present. No pharyngeal swelling, oropharyngeal exudate or uvula swelling. Eyes: Conjunctiva/sclera: Conjunctivae normal. Pupils: Pupils are equal, round, and reactive to light. Cardiovascular: Rate and Rhythm: Normal rate and regular rhythm. Heart sounds: Normal heart sounds. Pulmonary: Effort: Pulmonary effort is normal. No tachypnea, accessory muscle usage or respiratory distress. Breath sounds: Normal breath sounds. No stridor. No wheezing, rhonchi or rales. Abdominal: General: There is no distension. Palpations: Abdomen is soft. Tenderness: There is no abdominal tenderness. There is no guarding or rebound. Musculoskeletal: Cervical back: Normal range of motion and neck supple. No edema, erythema, rigidity or tenderness. No pain with movement. Normal range of motion. Lymphadenopathy: Cervical: No cervical adenopathy. Skin: General: Skin is warm and dry. Neurological: Mental Status: She is alert and oriented to person, place, and time. ASSESSMENT/PLAN: 1. Sore throat - ICD9: 462, ICD10: J02.9 (primary diagnosis) - STREP A MOLECULAR (POC) 2. Strep throat - ICD9: 034.0, ICD10: J02.0 3. Viral illness - ICD9: 079.99, ICD10: B34.9 Test positive. Treat for strep pharyngitis. Placed on Keflex. Suspicious of viral illness with strep pharyngitis. No evidence of contagious lung sounds or other evidence of bacterial infection Patient was educated on supportive therapies. Patient will follow up with primary care provider as needed. Patient was instructed to immediately proceed to emergency room f (more content not included)... [facility] 10-07-2024 History of Present illness Narrative Subjective HPI Nontoxic-appearing 28-year-old female presents urgent care chief complaint cough chest congestion sore throat headache low-grade fever body aches chills fatigue. Duration of symptoms 3 to 4 days. Associated symptoms listed above. Presents today for evaluation. Most bothersome symptom today is sore throat cough. No difficulty swallowing and secretion decreased range of motion of neck or trismus. No difficulty handling secretions. Past medical history prescription medications allergies reviewed. .Patient presents with: Flu Like Symptoms PAST MEDICAL HISTORY Diagnosis Date Anemia anxiety Asthma PAST SURGICAL HISTORY Procedure Laterality Date LAPAROSCOPY W/RMVL ADNEXAL STRUCTURES Bilateral 04/28/2018 l/s bilateral salpingectomy PAST SURGICAL HISTORY OF wisdom teeth PAST SURGICAL HISTORY OF 03/2020 exploratory laparoscopy VAGINAL HYSTERECTOMY 2021 ALLERGIES Codeine, Gabapentin, Latex, Oxycodone, Seasonal Allergies, and Zofran [Ondansetron] MEDICATIONS benzonatate (TESSALON PERLE) 100 mg capsule Take 1 capsule by mouth three times a day as needed. traMADol (ULTRAM) 50 mg tablet Take 50-100 mg by mouth every 6 hours as needed. (Patient not taking: Reported on 09/17/2024) albuterol HFA (PROVENTIL HFA, VENTOLIN HFA) 90 mcg/actuation inhaler Inhale 2 Puffs as instructed every 6 hours as needed for wheezing/shortness of breath. fluticasone (FLONASE) 50 mcg/actuation nasal spray Use 2 Sprays in each nostril once daily. Rinse mouth after use. FAMILY HISTORY Problem Relation Age of Onset Heart Mother Seizures Mother Stroke Mother Multiple Sclerosis Mother Psychiatry Sister Manic Depression Hypertension Maternal Grandfather Breast Cancer Maternal Aunt Hypertension Maternal Uncle Social History Tobacco Use Smoking status: Some Days Types: Cigarettes Smokeless tobacco: Never Substance Use Topics Alcohol use: Yes Comment: rarely Drug use: No BP 104/67 Pulse 91 Temp 37.7 C (99.8 F) Resp 16 Wt 64.6 kg (142 lb 6.7 oz) LMP 03/25/2022 SpO2 100% BMI 23.70 kg/m Review of Systems Constitutional: Positive for chills, fever and malaise/fatigue. HENT: Positive for congestion and sore throat. Negative for ear discharge, ear pain and sinus pain. Eyes: Negative for blurred vision, pain, discharge and redness. Respiratory: Positive for cough. Negative for hemoptysis, sputum production, shortness of breath, wheezing and stridor. Cardiovascular: Negative for chest pain. Gastrointestinal: Negative for abdominal pain, diarrhea, nausea and vomiting. Musculoskeletal: Positive for myalgias. Skin: Negative for itching and rash. Neurological: Positive for headaches. Negative for dizziness. Objective Physical Exam Constitutional: General: She is not in acute distress. Appearance: She is not diaphoretic. HENT: Head: Normocephalic. Jaw: No trismus, tenderness, swelling or pain on movement. Right Ear: Tympanic membrane, ear canal and external ear normal. Left Ear: Tympanic membrane, ear canal and external ear normal. Mouth/Throat: Mouth: Mucous membranes are moist. Pharynx: Oropharynx is clear. Uvula midline. Posterior oropharyngeal erythema present. No pharyngeal swelling, oropharyngeal exudate or uvula swelling. Eyes: Conjunctiva/sclera: Conjunctivae normal. Pupils: Pupils are equal, round, and reactive to light. Cardiovascular: Rate and Rhythm: Normal rate and regular rhythm. Heart sounds: Normal heart sounds. Pulmonary: Effort: Pulmonary effort is normal. No tachypnea, accessory muscle usage or respiratory distress. Breath sounds: Normal breath sounds. No stridor. No wheezing, rhonchi or rales. Abdominal: General: There is no distension. Palpations: Abdomen is soft. Tenderness: There is no abdominal tenderness. There is no guarding or rebound. Musculoskeletal: Cervical back: Normal range of motion and neck supple. No edema, erythema, rigidity or tenderness. No pain with movement. Normal range of motion. Lymphadenopathy: Cervical: No cervical adenopathy. Skin: General: Skin is warm and dry. Neurological: Mental Status: She is alert and oriented to person, place, and time. ASSESSMENT/PLAN: 1. Sore throat - ICD9: 462, ICD10: J02.9 (primary diagnosis) - STREP A MOLECULAR (POC) 2. Strep throat - ICD9: 034.0, ICD10: J02.0 3. Viral illness - ICD9: 079.99, ICD10: B34.9 Test positive. Treat for strep pharyngitis. Placed on Keflex. Suspicious of viral illness with strep pharyngitis. No evidence of contagious lung sounds or other evidence of bacterial infection Patient was educated on supportive therapies. Patient will follow up with primary care provider as needed. Patient was instructed to immediately proceed to emergency room for any new, worsening, or symptoms lasting longer than anticipated. The patient's clinical presentation is otherwise unremarkable at this time. Based on exam and clinical finding, the patient is stable for discharge. Plan of care was discussed with patient. Patient verbalizes understanding and agrees to plan of care. This note was generated using [employer] software. It may contain errors in wording, punctuation, or spelling. Jaguar Person APRN.CNP documented in this encounter [facility] 09-20-2024 History of Present illness Narrative Radiology Service Progress Note PATIENT NAME: Socorro Gonsales DATE OF SERVICE: September 20, 2024 TIME: 9:08 AM PATIENT IDENTITY VERIFICATION COMPLETED USING TWO (2) IDENTIFIERS: Name and Date of confirmed by patient verbally. FALL SCREENING: Has the patient had 2 falls in the last year or 1 fall with injury or currently using an Ambulatory Assistive Device (Walker, Cane, Wheelchair, Crutches, etc.)? No PATIENT GENDER DATA: Assigned female at . status: : No status: NO. PATIENT RELEVANT IMPLANT DATA REVIEWED: Not Applicable PATIENT PRESENTS WITH AN IMPLANTABLE OR ATTACHED RESIDENTIAL WORKER: No RADIOLOGY DEPARTMENT: General X-ray: Exam(s) Completed: Chest X-Ray PERIPHERAL IV DATA: Not applicable SIGNED BY: RT Surinder(Maribell) September 20, 2024 9:08 AM documented in this encounter [facility] 09-20-2024 Note HNO ID: [id number] Author: SELAM THOMAS RT(R) Service: Radiology Author Type: Technologist Type: Progress Notes Filed: 09/20/2024 09:17 Note Text: Radiology Service Progress Note PATIENT NAME: Socorro Gonsales DATE OF SERVICE: September 20, 2024 TIME: 9:08 AM PATIENT IDENTITY VERIFICATION COMPLETED USING TWO (2) IDENTIFIERS: Name and Date of confirmed by patient verbally. FALL SCREENING: Has the patient had 2 falls in the last year or 1 fall with injury or currently using an Ambulatory Assistive Device (Walker, Cane, Wheelchair, Crutches, etc.)? No PATIENT GENDER DATA: Assigned female at . status: : No status: NO. PATIENT RELEVANT IMPLANT DATA REVIEWED: Not Applicable PATIENT PRESENTS WITH AN IMPLANTABLE OR ATTACHED RESIDENTIAL WORKER: No RADIOLOGY DEPARTMENT: General X-ray: Exam(s) Completed: Chest X-Ray PERIPHERAL IV DATA: Not applicable SIGNED BY: RT Surinder(Maribell) September 20, 2024 9:08 AM [facility] 09-20-2024 Note HNO ID: [id number] Author: LEILANI ALVARADO PA Service: ? Author Type: Physician Therapeutic Mentor Type: Progress Notes Filed: 09/20/2024 09:26 Note Text: This note was created using [employer]. Subjective Socorro Gonsales is a 28 year old female. HPI 28-year-old female presents for sinus congestion, sinus pressure, cough for a week and a half. Patient was seen here 3 days ago and states she was diagnosed with ear infection. She was placed on amoxicillin. Patient states that her cough and nasal congestion have gotten worse. She states she is no longer having ear pain, but has a lot of nasal congestion, sinus pressure, sinus pain and worsening cough. She states she feels congested in the chest, but cough is dry. She had a fever on Wednesday, no fevers for the past 2 days. She has been taking DayQuil, NyQuil and the amoxicillin improvement in ear symptoms, but no change in sinus and cough. No other complaint. Not or breast-feeding. PAST MEDICAL HISTORY Diagnosis Date Anemia anxiety Asthma PAST SURGICAL HISTORY Procedure Laterality Date LAPAROSCOPY W/RMVL ADNEXAL STRUCTURES Bilateral 04/28/2018 l/s bilateral salpingectomy PAST SURGICAL HISTORY OF wisdom teeth PAST SURGICAL HISTORY OF 03/2020 exploratory laparoscopy VAGINAL HYSTERECTOMY 2021 ALLERGIES Codeine, Gabapentin, Latex, Oxycodone, Seasonal Allergies, and Zofran [Ondansetron] MEDICATIONS amoxicillin (AMOXIL) 875 mg tablet Take 1 tablet by mouth two times a day for 7 days. traMADol (ULTRAM) 50 mg tablet Take 50-100 mg by mouth every 6 hours as needed. (Patient not taking: Reported on 09/17/2024) albuterol HFA (PROVENTIL HFA, VENTOLIN HFA) 90 mcg/actuation inhaler Inhale 2 Puffs as instructed every 6 hours as needed for wheezing/shortness of breath. fluticasone (FLONASE) 50 mcg/actuation nasal spray Use 2 Sprays in each nostril once daily. Rinse mouth after use. FAMILY HISTORY Problem Relation Age of Onset Heart Mother Seizures Mother Stroke Mother Multiple Sclerosis Mother Psychiatry Sister Manic Depression Hypertension Maternal Grandfather Breast Cancer Maternal Aunt Hypertension Maternal Uncle Social History Tobacco Use Smoking status: Some Days Types: Cigarettes Smokeless tobacco: Never Substance Use Topics Alcohol use: Yes Comment: rarely Drug use: No Review of Systems Constitutional: Negative for chills and fever. HENT: Positive for congestion, sinus pressure and sinus pain. Negative for ear pain and sore throat. Respiratory: Positive for cough. Negative for shortness of breath. Cardiovascular: Negative for chest pain. Gastrointestinal: Negative for diarrhea and vomiting. Objective BP 120/66 Pulse 67 Temp 37.2 ?C (98.9 ?F) Resp 20 Wt 65.8 kg (145 lb 1 oz) LMP 03/25/2022 SpO2 99% BMI 24.14 kg/m? Physical Exam Vitals and nursing note reviewed. Constitutional: General: She is not in acute distress. Appearance: Normal appearance. She is not toxic-appearing. HENT: Right Ear: Tympanic membrane and ear canal normal. Left Ear: Tympanic membrane and ear canal normal. Nose: Mucosal edema and congestion present. Right Sinus: Maxillary sinus tenderness and frontal sinus tenderness present. Left Sinus: Maxillary sinus tenderness and frontal sinus tenderness present. Mouth/Throat: Mouth: Mucous membranes are moist. Eyes: Conjunctiva/sclera: Conjunctivae normal. Cardiovascular: Rate and Rhythm: Normal rate and regular rhythm. Pulmonary: Effort: Pulmonary effort is normal. Breath sounds: Normal breath sounds. No wheezing, rhonchi or rales. Skin: General: Skin is warm and dry. Neurological: Mental Status: She is alert. Assessment and Plan ASSESSMENT/PLAN: 1. Acute cough - ICD9: 786.2, ICD10: R05.1 (primary diagnosis) - XR CHEST 2V FRONTAL/LAT-no acute radiographic abnormality -Rx prednisone -Rx Tessalon Perles 2. Acute non-recurrent sinusitis, unspecified location - ICD9: 461.9, ICD10: J01.90 -Stop amoxicillin. Will start Augmentin to better cover for sinusitis. - Will begin treatment with Augmentin 875 mg PO BID for 5 days - Supportive care with plenty of fluids, rest, and analgesia prn. Diagnosis and treatment plan were discussed and questions were answered to the patient's satisfaction. Pt acknowledged understanding of concepts and follow up plan. Specific signs and symptoms that would indicate the need for higher level of care were discussed in detail warranting prompt ER evaluation. MALI Napoles [facility] 09-20-2024 History of Present illness Narrative This note was created using [employer]. Subjective Socorro Gonsales is a 28 year old female. HPI 28-year-old female presents for sinus congestion, sinus pressure, cough for a week and a half. Patient was seen here 3 days ago and states she was diagnosed with ear infection. She was placed on amoxicillin. Patient states that her cough and nasal congestion have gotten worse. She states she is no longer having ear pain, but has a lot of nasal congestion, sinus pressure, sinus pain and worsening cough. She states she feels congested in the chest, but cough is dry. She had a fever on Wednesday, no fevers for the past 2 days. She has been taking DayQuil, NyQuil and the amoxicillin improvement in ear symptoms, but no change in sinus and cough. No other complaint. Not or breast-feeding. PAST MEDICAL HISTORY Diagnosis Date Anemia anxiety Asthma PAST SURGICAL HISTORY Procedure Laterality Date LAPAROSCOPY W/RMVL ADNEXAL STRUCTURES Bilateral 04/28/2018 l/s bilateral salpingectomy PAST SURGICAL HISTORY OF wisdom teeth PAST SURGICAL HISTORY OF 03/2020 exploratory laparoscopy VAGINAL HYSTERECTOMY 2021 ALLERGIES Codeine, Gabapentin, Latex, Oxycodone, Seasonal Allergies, and Zofran [Ondansetron] MEDICATIONS amoxicillin (AMOXIL) 875 mg tablet Take 1 tablet by mouth two times a day for 7 days. traMADol (ULTRAM) 50 mg tablet Take 50-100 mg by mouth every 6 hours as needed. (Patient not taking: Reported on 09/17/2024) albuterol HFA (PROVENTIL HFA, VENTOLIN HFA) 90 mcg/actuation inhaler Inhale 2 Puffs as instructed every 6 hours as needed for wheezing/shortness of breath. fluticasone (FLONASE) 50 mcg/actuation nasal spray Use 2 Sprays in each nostril once daily. Rinse mouth after use. FAMILY HISTORY Problem Relation Age of Onset Heart Mother Seizures Mother Stroke Mother Multiple Sclerosis Mother Psychiatry Sister Manic Depression Hypertension Maternal Grandfather Breast Cancer Maternal Aunt Hypertension Maternal Uncle Social History Tobacco Use Smoking status: Some Days Types: Cigarettes Smokeless tobacco: Never Substance Use Topics Alcohol use: Yes Comment: rarely Drug use: No Review of Systems Constitutional: Negative for chills and fever. HENT: Positive for congestion, sinus pressure and sinus pain. Negative for ear pain and sore throat. Respiratory: Positive for cough. Negative for shortness of breath. Cardiovascular: Negative for chest pain. Gastrointestinal: Negative for diarrhea and vomiting. Objective BP 120/66 Pulse 67 Temp 37.2 C (98.9 F) Resp 20 Wt 65.8 kg (145 lb 1 oz) LMP 03/25/2022 SpO2 99% BMI 24.14 kg/m Physical Exam Vitals and nursing note reviewed. Constitutional: General: She is not in acute distress. Appearance: Normal appearance. She is not toxic-appearing. HENT: Right Ear: Tympanic membrane and ear canal normal. Left Ear: Tympanic membrane and ear canal normal. Nose: Mucosal edema and congestion present. Right Sinus: Maxillary sinus tenderness and frontal sinus tenderness present. Left Sinus: Maxillary sinus tenderness and frontal sinus tenderness present. Mouth/Throat: Mouth: Mucous membranes are moist. Eyes: Conjunctiva/sclera: Conjunctivae normal. Cardiovascular: Rate and Rhythm: Normal rate and regular rhythm. Pulmonary: Effort: Pulmonary effort is normal. Breath sounds: Normal breath sounds. No wheezing, rhonchi or rales. Skin: General: Skin is warm and dry. Neurological: Mental Status: She is alert. Assessment and Plan ASSESSMENT/PLAN: 1. Acute cough - ICD9: 786.2, ICD10: R05.1 (primary diagnosis) - XR CHEST 2V FRONTAL/LAT-no acute radiographic abnormality -Rx prednisone -Rx Tessalon Perles 2. Acute non-recurrent sinusitis, unspecified location - ICD9: 461.9, ICD10: J01.90 -Stop amoxicillin. Will start Augmentin to better cover for sinusitis. - Will begin treatment with Augmentin 875 mg PO BID for 5 days - Supportive care with plenty of fluids, rest, and analgesia prn. Diagnosis and treatment plan were discussed and questions were answered to the patient's satisfaction. Pt acknowledged understanding of concepts and follow up plan. Specific signs and symptoms that would indicate the need for higher level of care were discussed in detail warranting prompt ER evaluation. MALI Napoles documented in this encounter [facility] 09-17-2024 Note HNO ID: [id number] Author: JAGUAR PERSON APRN.JORDANA Service: ? Author Type: Nurse Practitioner Type: Progress Notes Filed: 09/17/2024 09:21 Note Text: Subjective HPI Nontoxic-appearing 28-year-old female presents urgent care chief complaint sore throat cough right ear pain. Duration of symptoms 10 days. Associated symptoms listed above. Most prominent symptom today is sinus pressure cough. Presents today for evaluation. OTC medications none. Daughter sick similar signs symptoms. Denies any chest pain shortness of breath or pleuritic pain. No hemoptysis or abdominal pain. Is not is not breast-feeding. Past medical history prescription medications allergies reviewed. .Patient presents with: Nasal Congestion: drainage, right ear pain, cough and sore throat x 10 days PAST MEDICAL HISTORY Diagnosis Date Anemia anxiety Asthma PAST SURGICAL HISTORY Procedure Laterality Date LAPAROSCOPY W/RMVL ADNEXAL STRUCTURES Bilateral 04/28/2018 l/s bilateral salpingectomy PAST SURGICAL HISTORY OF wisdom teeth PAST SURGICAL HISTORY OF 03/2020 exploratory laparoscopy VAGINAL HYSTERECTOMY 2021 ALLERGIES Codeine, Gabapentin, Latex, Oxycodone, Seasonal Allergies, and Zofran [Ondansetron] MEDICATIONS traMADol (ULTRAM) 50 mg tablet Take 50-100 mg by mouth every 6 hours as needed. (Patient not taking: Reported on 09/17/2024) albuterol HFA (PROVENTIL HFA, VENTOLIN HFA) 90 mcg/actuation inhaler Inhale 2 Puffs as instructed every 6 hours as needed for wheezing/shortness of breath. fluticasone (FLONASE) 50 mcg/actuation nasal spray Use 2 Sprays in each nostril once daily. Rinse mouth after use. FAMILY HISTORY Problem Relation Age of Onset Heart Mother Seizures Mother Stroke Mother Multiple Sclerosis Mother Psychiatry Sister Manic Depression Hypertension Maternal Grandfather Breast Cancer Maternal Aunt Hypertension Maternal Uncle Social History Tobacco Use Smoking status: Some Days Types: Cigarettes Smokeless tobacco: Never Substance Use Topics Alcohol use: Yes Comment: rarely Drug use: No BP 122/70 Pulse 90 Temp 37 ?C (98.6 ?F) Resp 16 Wt 67.2 kg (148 lb 2.4 oz) LMP 03/25/2022 SpO2 100% BMI 24.65 kg/m? ' Review of Systems Constitutional: Negative for chills, fever and malaise/fatigue. HENT: Positive for congestion, sinus pain and sore throat. Negative for ear discharge and ear pain. Eyes: Negative for blurred vision, pain, discharge and redness. Respiratory: Positive for cough. Negative for hemoptysis, sputum production, shortness of breath, wheezing and stridor. Cardiovascular: Negative for chest pain. Gastrointestinal: Negative for abdominal pain, diarrhea, nausea and vomiting. Musculoskeletal: Negative for myalgias. Skin: Negative for itching and rash. Neurological: Negative for dizziness and headaches. Objective Physical Exam HENT: Head: Normocephalic. Jaw: No trismus, tenderness, swelling or pain on movement. Right Ear: Tympanic membrane, ear canal and external ear normal. Left Ear: Tympanic membrane, ear canal and external ear normal. Nose: Congestion present. Mouth/Throat: Mouth: Mucous membranes are moist. Pharynx: Oropharynx is clear. Uvula midline. No oropharyngeal exudate or posterior oropharyngeal erythema. Eyes: Pupils: Pupils are equal, round, and reactive to light. Cardiovascular: Rate and Rhythm: Normal rate. Pulmonary: Effort: Pulmonary effort is normal. No accessory muscle usage, respiratory distress or retractions. Breath sounds: No stridor. No wheezing, rhonchi or rales. Abdominal: Tenderness: There is no abdominal tenderness. There is no guarding or rebound. Musculoskeletal: Cervical back: No erythema or tenderness. No pain with movement. Normal range of motion. Lymphadenopathy: Cervical: No cervical adenopathy. Neurological: General: No focal deficit present. Mental Status: She is alert and oriented to person, place, and time. Mental status is at baseline. ASSESSMENT/PLAN: 1. Sinobronchitis - ICD9: 473.9, 490, ICD10: J32.9, J40 Diagnosed sinobronchitis. Placed on amoxicillin. Patient was educated on supportive therapies. Patient will follow up with primary care provider as needed. Patient was instructed to immediately proceed to emergency room for any new, worsening, or symptoms lasting longer than anticipated. The patient's clinical presentation is otherwise unremarkable at this time. Based on exam and clinical finding, the patient is stable for discharge. Plan of care was discussed with patient. Patient verbalizes understanding and agrees to plan of care. This note was generated using [employer] software. It may contain errors in wording, punctuation, or spelling. Jaguar Person APRN.[facility] 09-17-2024 History of Present illness Narrative Subjective HPI Nontoxic-appearing 28-year-old female presents urgent care chief complaint sore throat cough right ear pain. Duration of symptoms 10 days. Associated symptoms listed above. Most prominent symptom today is sinus pressure cough. Presents today for evaluation. OTC medications none. Daughter sick similar signs symptoms. Denies any chest pain shortness of breath or pleuritic pain. No hemoptysis or abdominal pain. Is not is not breast-feeding. Past medical history prescription medications allergies reviewed. .Patient presents with: Nasal Congestion: drainage, right ear pain, cough and sore throat x 10 days PAST MEDICAL HISTORY Diagnosis Date Anemia anxiety Asthma PAST SURGICAL HISTORY Procedure Laterality Date LAPAROSCOPY W/RMVL ADNEXAL STRUCTURES Bilateral 04/28/2018 l/s bilateral salpingectomy PAST SURGICAL HISTORY OF wisdom teeth PAST SURGICAL HISTORY OF 03/2020 exploratory laparoscopy VAGINAL HYSTERECTOMY 2021 ALLERGIES Codeine, Gabapentin, Latex, Oxycodone, Seasonal Allergies, and Zofran [Ondansetron] MEDICATIONS traMADol (ULTRAM) 50 mg tablet Take 50-100 mg by mouth every 6 hours as needed. (Patient not taking: Reported on 09/17/2024) albuterol HFA (PROVENTIL HFA, VENTOLIN HFA) 90 mcg/actuation inhaler Inhale 2 Puffs as instructed every 6 hours as needed for wheezing/shortness of breath. fluticasone (FLONASE) 50 mcg/actuation nasal spray Use 2 Sprays in each nostril once daily. Rinse mouth after use. FAMILY HISTORY Problem Relation Age of Onset Heart Mother Seizures Mother Stroke Mother Multiple Sclerosis Mother Psychiatry Sister Manic Depression Hypertension Maternal Grandfather Breast Cancer Maternal Aunt Hypertension Maternal Uncle Social History Tobacco Use Smoking status: Some Days Types: Cigarettes Smokeless tobacco: Never Substance Use Topics Alcohol use: Yes Comment: rarely Drug use: No BP 122/70 Pulse 90 Temp 37 C (98.6 F) Resp 16 Wt 67.2 kg (148 lb 2.4 oz) LMP 03/25/2022 SpO2 100% BMI 24.65 kg/m ' Review of Systems Constitutional: Negative for chills, fever and malaise/fatigue. HENT: Positive for congestion, sinus pain and sore throat. Negative for ear discharge and ear pain. Eyes: Negative for blurred vision, pain, discharge and redness. Respiratory: Positive for cough. Negative for hemoptysis, sputum production, shortness of breath, wheezing and stridor. Cardiovascular: Negative for chest pain. Gastrointestinal: Negative for abdominal pain, diarrhea, nausea and vomiting. Musculoskeletal: Negative for myalgias. Skin: Negative for itching and rash. Neurological: Negative for dizziness and headaches. Objective Physical Exam HENT: Head: Normocephalic. Jaw: No trismus, tenderness, swelling or pain on movement. Right Ear: Tympanic membrane, ear canal and external ear normal. Left Ear: Tympanic membrane, ear canal and external ear normal. Nose: Congestion present. Mouth/Throat: Mouth: Mucous membranes are moist. Pharynx: Oropharynx is clear. Uvula midline. No oropharyngeal exudate or posterior oropharyngeal erythema. Eyes: Pupils: Pupils are equal, round, and reactive to light. Cardiovascular: Rate and Rhythm: Normal rate. Pulmonary: Effort: Pulmonary effort is normal. No accessory muscle usage, respiratory distress or retractions. Breath sounds: No stridor. No wheezing, rhonchi or rales. Abdominal: Tenderness: There is no abdominal tenderness. There is no guarding or rebound. Musculoskeletal: Cervical back: No erythema or tenderness. No pain with movement. Normal range of motion. Lymphadenopathy: Cervical: No cervical adenopathy. Neurological: General: No focal deficit present. Mental Status: She is alert and oriented to person, place, and time. Mental status is at baseline. ASSESSMENT/PLAN: 1. Sinobronchitis - ICD9: 473.9, 490, ICD10: J32.9, J40 Diagnosed sinobronchitis. Placed on amoxicillin. Patient was educated on supportive therapies. Patient will follow up with primary care provider as needed. Patient was instructed to immediately proceed to emergency room for any new, worsening, or symptoms lasting longer than anticipated. The patient's clinical presentation is otherwise unremarkable at this time. Based on exam and clinical finding, the patient is stable for discharge. Plan of care was discussed with patient. Patient verbalizes understanding and agrees to plan of care. This note was generated using [employer] software. It may contain errors in wording, punctuation, or spelling. Jaguar Person APRN.JORDANA documented in this encounter [facility] 08-01-2024 Instructions Bro Lucio APRN.JORDANA - 08/01/2024 10:44 AM EST Images from the original note were not included. ASSESSMENT/PLAN: 1. Bacterial sinusitis - ICD9: 473.9, 041.9, ICD10: J32.9, B96.89 (primary diagnosis) - Will begin treatment with as per antibiotic as written, see orders - Supportive care with plenty of fluids, rest, and analgesia prn. - AMOXICILLIN 875 MG-POTASSIUM CLAVULANATE 125 MG TABLET 2. Acute effusion of right ear - ICD9: 381.00, ICD10: H65.191 - flonase nasal spray once daily. - Follow-up with your PCP in 3-5 days if symptoms have not improved or sooner if symptoms worsen - Discussed red flags and need for immediate medical evaluation if any occur. - Discussed supportive care treatment with fluids, rest and analgesia. - Discussed expected course of illness Bro Lucio APRN.ENGINE DISPATCHER Adult Sinusitis Patient Education What is Sinusitis? Sinusitis [[id number]] is inflammation of the sinuses or swelling of the lining of the sinus cavity or nose. During an infection the sinuses become blocked with fluid causing swelling of the lining of the sinuses. Symptoms: (viral and bacterial infections) Stuffy nose Runny nose Postnasal drip Fever Toothache Headache Tiredness Cough Sore throat Face and head pressure and or pain Common causes: 98% of sinus infections are viral caused by viruses. Risk Factors of Sinusitis Include: Allergies, air pollution, indoor humidity and outdoor temperature changes, andstructural changes in the nose may contribute to sinus pain, pressure and congestion. When to get help? Temperature greater than 100.4 F Symptoms lasting more than 10 days or worsening symptoms greater than 7-10 days. If you do not improve or worsen after a course of antibiotics, you should be re-examined. Diagnosis and Treatment: Your healthcare provider will ask a number of questions about your symptoms and how long they have occurred. If symptoms of sinusitis persist greater than 10 days, it is possible you have a bacterial sinus infection and an antibiotic is prescribed. If it is viral, antibiotics will not help. You may be instructed to take [id number] medications for symptoms. including fever reducers acetaminophen or ibuprofen, nasal saline spray, cough and cold preparations and decongestants as prescribed by the physician, nurse practitioner or physician surgery assistant. Self-Care and Prevention: Rest Fluids for hydration Good hand washing Humidifier Avoid smoking and exposure to second hand smoke Avoid sick contacts documented in this encounter [facility] 08-01-2024 Note HNO ID: [id number] Author: BRO LUCIO APRN.JORDANA Service: ? Author Type: Nurse Practitioner Type: Progress Notes Filed: 08/01/2024 10:44 Note Text: Subjective Ear Pain Associated symptoms include congestion, coughing, a fever, headaches and a sore throat. Pertinent negatives include no chest pain, chills, myalgias, nausea or vomiting. Socorro Gonsales is a 28 year old female who presents with sore throat, sinus congestion, sinus pressure and pain, headache for past 5 days. This morning she woke with right ear pain. She had a fever of 101.3 degrees F. She has been taking dayquil, flonase, and tramadol. States her whole family is sick. Review of Systems Constitutional: Positive for fever. Negative for chills and malaise/fatigue. HENT: Positive for congestion, ear pain, sinus pain and sore throat. Respiratory: Positive for cough. Negative for sputum production. Cardiovascular: Negative for chest pain. Gastrointestinal: Negative for diarrhea, nausea and vomiting. Musculoskeletal: Negative for myalgias. Neurological: Positive for headaches. BP 104/71 Pulse 65 Temp 36.4 ?C (97.5 ?F) Resp 20 Wt 68 kg (149 lb 14.6 oz) LMP 03/25/2022 SpO2 100% BMI 24.95 kg/m? PAST MEDICAL HISTORY Diagnosis Date Anemia anxiety Asthma PAST SURGICAL HISTORY Procedure Laterality Date LAPAROSCOPY W/RMVL ADNEXAL STRUCTURES Bilateral 04/28/2018 l/s bilateral salpingectomy PAST SURGICAL HISTORY OF wisdom teeth PAST SURGICAL HISTORY OF 03/2020 exploratory laparoscopy VAGINAL HYSTERECTOMY 2021 ALLERGIES Codeine, Gabapentin, Latex, Oxycodone, Seasonal Allergies, and Zofran [Ondansetron] MEDICATIONS traMADol (ULTRAM) 50 mg tablet Take 50-100 mg by mouth every 6 hours as needed. albuterol HFA (PROVENTIL HFA, VENTOLIN HFA) 90 mcg/actuation inhaler Inhale 2 Puffs as instructed every 6 hours as needed for wheezing/shortness of breath. fluticasone (FLONASE) 50 mcg/actuation nasal spray Use 2 Sprays in each nostril once daily. Rinse mouth after use. (Patient taking differently: Use 2 Sprays in each nostril as needed for cold/allergy symptoms. Rinse mouth after use.) amoxicillin-clavulanate potassium (AUGMENTIN) 875-125 mg per tablet Take 1 tablet by mouth two times a day for 10 days. FAMILY HISTORY Problem Relation Age of Onset Heart Mother Seizures Mother Stroke Mother Multiple Sclerosis Mother Psychiatry Sister Manic Depression Hypertension Maternal Grandfather Breast Cancer Maternal Aunt Hypertension Maternal Uncle Social History Tobacco Use Smoking status: Some Days Types: Cigarettes Smokeless tobacco: Never Substance Use Topics Alcohol use: Yes Comment: rarely Drug use: No Objective Physical Exam Vitals and nursing note reviewed. Constitutional: Appearance: Normal appearance. HENT: Right Ear: Ear canal and external ear normal. A middle ear effusion is present. Left Ear: Tympanic membrane, ear canal and external ear normal. Nose: Nasal tenderness, mucosal edema, congestion and rhinorrhea present. Mouth/Throat: Mouth: Mucous membranes are moist. Pharynx: Uvula midline. No oropharyngeal exudate or posterior oropharyngeal erythema. Cardiovascular: Rate and Rhythm: Normal rate and regular rhythm. Heart sounds: Normal heart sounds. Pulmonary: Effort: Pulmonary effort is normal. No respiratory distress. Breath sounds: Normal breath sounds. No wheezing or rales. Musculoskeletal: Cervical back: Neck supple. Lymphadenopathy: Cervical: No cervical adenopathy. Skin: General: Skin is warm and dry. Findings: No erythema or rash. Neurological: Mental Status: She is alert. ASSESSMENT/PLAN: 1. Bacterial sinusitis - ICD9: 473.9, 041.9, ICD10: J32.9, B96.89 (primary diagnosis) - Will begin treatment with as per antibiotic as written, see orders - Supportive care with plenty of fluids, rest, and analgesia prn. - AMOXICILLIN 875 MG-POTASSIUM CLAVULANATE 125 MG TABLET 2. Acute effusion of right ear - ICD9: 381.00, ICD10: H65.191 - flonase nasal spray once daily. - Follow-up with your PCP in 3-5 days if symptoms have not improved or sooner if symptoms worsen - Discussed red flags and need for immediate medical evaluation if any occur. - Discussed supportive care treatment with fluids, rest and analgesia. - Discussed expected course of illness Bro Lucio APRN.[facility] 08-01-2024 History of Present illness Narrative Subjective Ear Pain Associated symptoms include congestion, coughing, a fever, headaches and a sore throat. Pertinent negatives include no chest pain, chills, myalgias, nausea or vomiting. Socorro Gonsales is a 28 year old female who presents with sore throat, sinus congestion, sinus pressure and pain, headache for past 5 days. This morning she woke with right ear pain. She had a fever of 101.3 degrees F. She has been taking dayquil, flonase, and tramadol. States her whole family is sick. Review of Systems Constitutional: Positive for fever. Negative for chills and malaise/fatigue. HENT: Positive for congestion, ear pain, sinus pain and sore throat. Respiratory: Positive for cough. Negative for sputum production. Cardiovascular: Negative for chest pain. Gastrointestinal: Negative for diarrhea, nausea and vomiting. Musculoskeletal: Negative for myalgias. Neurological: Positive for headaches. BP 104/71 Pulse 65 Temp 36.4 C (97.5 F) Resp 20 Wt 68 kg (149 lb 14.6 oz) LMP 03/25/2022 SpO2 100% BMI 24.95 kg/m PAST MEDICAL HISTORY Diagnosis Date Anemia anxiety Asthma PAST SURGICAL HISTORY Procedure Laterality Date LAPAROSCOPY W/RMVL ADNEXAL STRUCTURES Bilateral 04/28/2018 l/s bilateral salpingectomy PAST SURGICAL HISTORY OF wisdom teeth PAST SURGICAL HISTORY OF 03/2020 exploratory laparoscopy VAGINAL HYSTERECTOMY 2021 ALLERGIES Codeine, Gabapentin, Latex, Oxycodone, Seasonal Allergies, and Zofran [Ondansetron] MEDICATIONS traMADol (ULTRAM) 50 mg tablet Take 50-100 mg by mouth every 6 hours as needed. albuterol HFA (PROVENTIL HFA, VENTOLIN HFA) 90 mcg/actuation inhaler Inhale 2 Puffs as instructed every 6 hours as needed for wheezing/shortness of breath. fluticasone (FLONASE) 50 mcg/actuation nasal spray Use 2 Sprays in each nostril once daily. Rinse mouth after use. (Patient taking differently: Use 2 Sprays in each nostril as needed for cold/allergy symptoms. Rinse mouth after use.) amoxicillin-clavulanate potassium (AUGMENTIN) 875-125 mg per tablet Take 1 tablet by mouth two times a day for 10 days. FAMILY HISTORY Problem Relation Age of Onset Heart Mother Seizures Mother Stroke Mother Multiple Sclerosis Mother Psychiatry Sister Manic Depression Hypertension Maternal Grandfather Breast Cancer Maternal Aunt Hypertension Maternal Uncle Social History Tobacco Use Smoking status: Some Days Types: Cigarettes Smokeless tobacco: Never Substance Use Topics Alcohol use: Yes Comment: rarely Drug use: No Objective Physical Exam Vitals and nursing note reviewed. Constitutional: Appearance: Normal appearance. HENT: Right Ear: Ear canal and external ear normal. A middle ear effusion is present. Left Ear: Tympanic membrane, ear canal and external ear normal. Nose: Nasal tenderness, mucosal edema, congestion and rhinorrhea present. Mouth/Throat: Mouth: Mucous membranes are moist. Pharynx: Uvula midline. No oropharyngeal exudate or posterior oropharyngeal erythema. Cardiovascular: Rate and Rhythm: Normal rate and regular rhythm. Heart sounds: Normal heart sounds. Pulmonary: Effort: Pulmonary effort is normal. No respiratory distress. Breath sounds: Normal breath sounds. No wheezing or rales. Musculoskeletal: Cervical back: Neck supple. Lymphadenopathy: Cervical: No cervical adenopathy. Skin: General: Skin is warm and dry. Findings: No erythema or rash. Neurological: Mental Status: She is alert. ASSESSMENT/PLAN: 1. Bacterial sinusitis - ICD9: 473.9, 041.9, ICD10: J32.9, B96.89 (primary diagnosis) - Will begin treatment with as per antibiotic as written, see orders - Supportive care with plenty of fluids, rest, and analgesia prn. - AMOXICILLIN 875 MG-POTASSIUM CLAVULANATE 125 MG TABLET 2. Acute effusion of right ear - ICD9: 381.00, ICD10: H65.191 - flonase nasal spray once daily. - Follow-up with your PCP in 3-5 days if symptoms have not improved or sooner if symptoms worsen - Discussed red flags and need for immediate medical evaluation if any occur. - Discussed supportive care treatment with fluids, rest and analgesia. - Discussed expected course of illness Bro Lucoi APRN.ENGINE DISPATCHER documented in this encounter [facility] 06-21-2024 History of Present illness Narrative Images from the original note were not included. [facility] - [address] [facility] [id number] Visit type: Established Patient Reason for Visit: Leg Problem (PT was concerned because her legs were shaking During PT) and Flu Vaccine (Patient has declined the flu vaccine ) Assessment / Plan: Socorro was seen today for leg problem and flu vaccine. Diagnoses and all orders for this visit: Arthralgia, unspecified joint (Primary) - C-reactive protein; Future - Sedimentation rate, automated; Future - Vitamin B12; Future - T4, free; Future - T3, free; Future - TSH; Future - DANIEL; Future - C-reactive protein - Sedimentation rate, automated - Vitamin B12 - T4, free - T3, free - TSH - DANIEL Mild asthma without complication, unspecified whether persistent Other orders - Pneumococcal conjugate vaccine 20-valent IM (PREVNAR 20) Subjective: Patient ID: Socorro Gonsales is a 28 y.o. female. HPI patient presents concerned that she had some twitching of her right leg undergoing therapy for right knee issues. Is scheduled to get a arthroscopy with possible meniscectomy per Dr. Jansen in a few weeks. During therapy her legs shook for a few minutes afterwards. Is concerned about autoimmune workup. Mother of Goodpasture syndrome. Review of Systems Chart reviewed. He is getting worked up for celiac disease. No hair loss erythema nodosum. Some morning stiffness but no joint changes. Generally she has felt pretty well. Recent lab work in the ER was unremarkable. No vomiting or diarrhea. No reason for electrolyte loss. She generally has no low back pain or sciatica. Her strength is good Allergies Allergen Reactions Keflex [Cephalexin] Nausea And Vomiting Morphine Ondansetron Itching Itching and redness in arm when given Zofran IV Seasonal Ic [Octacosanol] Codeine Itching and Rash Gabapentin Other [place] like Heart was racing [place] like Heart was racing Latex Itching, Rash and Hives Other reaction(s): Hives Current Outpatient Medications on File Prior to Visit Medication Sig Dispense Refill Acetaminophen Extra Strength 500 MG tablet Take 1,000 mg by mouth every 6 hours as needed. albuterol 108 (90 Base) MCG/ACT inhaler Inhale 2 puffs every 6 hours as needed. fluticasone (Flonase) 50 MCG/ACT nasal spray 2 sprays in the morning. [DISCONTINUED] cholestyramine light (Prevalite) 4 g packet Take 1 packet (4 g) by mouth 2 times daily. (Patient not taking: Reported on 04/25/2024) 60 packet 11 [DISCONTINUED] pantoprazole (ProtoNix) 40 MG EC tablet Take 1 tablet (40 mg) by mouth every morning (before breakfast). Do not crush, chew, or split. 90 tablet 1 No current facility-administered medications on file prior to visit. Patient Active Problem List Diagnosis Chronic constipation PFO (patent foramen ovale) Asthma Allergic rhinitis YVONNE (generalized anxiety disorder) Gastroparesis Hiatal hernia with gastroesophageal reflux Engages in vaping Social History Tobacco Use Smoking status: Former Types: Cigarettes Smokeless tobacco: Former Tobacco comments: Vape Use Substance Use Topics Alcohol use: Yes Comment: social Past Surgical History: Procedure Laterality Date ABDOMINAL ADHESION SURGERY 2020 and 2021 APPENDECTOMY 2020 CHOLECYSTECTOMY 2019 COLONOSCOPY 2019 CYSTOSCOPY EXPLORATORY LAPAROTOMY 2019 PARTIAL HYSTERECTOMY 2021 TUBAL LIGATION Family History Problem Relation Name Age of Onset Other Mother Ramya mcmullen Good pastures synd 07/31 fall with ICH, on Dialysis age 48 Kidney failure Mother Ramya summer Seizures Mother Ramya summer Hypertension Mother Ramya summer No Known Problems Father no contact with No Known Problems Sister Odilia No Known Problems Brother Charisse Objective: BP 80/60 (BP Location: Left arm, Patient Position: Sitting, BP Cuff Size: Adult long) Pulse 51 Temp 36.4 C (97.5 F) (Temporal) Ht 5' 5 (1.651 m) Wt 156 lb (70.8 kg) SpO2 98% BMI 25.96 kg/m Physical Exam exam is unremarkable. No joint changes. No erythrasma. No thyroid or neck masses. Reflexes normal. No joint changes. No synovitis. Full painless range of motion of her elbows wrist and fingers full painless range of motion of her hips knees and ankles and toes. No skin changes. Her strength of the lower extremities entirely normal. Normal range of motion of her back. She can walk on her heels and toes toes downgoing and no clonus. documented in this encounter 06-13-2024 Note HNO ID: [id number] Author: MICHAEL PARKER, PhD Service: ? Author Type: Psychologist Type: Progress Notes Filed: 06/13/2024 14:17 Note Text: [facility] [place] Name: Socorro Gonsales MR#: [id number] Date: 06/13/2024 Time: 1 hour Referred by: Dr. 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 She was seen with her fiance. She reports lifelong constipation (now alternating with diarrhea), and a childhood with instability, chaos, and deprivation, and insufficient access to bathrooms. She was diagnosed with YVONNE in 2019 secondary to family of origin issues. She had therapy to help to learn how to cope but she has not worked on healing from past trauma. She will explore getting therapy locally. The basic principles of the brain gut connection were explored. Emphasis was placed on the effects of stress and emotions on physiology. We discussed the role of hypersensitivity. She discussed ways in which her medical condition had had an effect on her life. She was given information about ways to mediate her emotional and physiological response. She was introduced to relaxation training. She was given the website for the [facility] and shown the relaxation recordings with the recommendation to practice this and the rationale behind their use. She was also given the websites for retainpain.org and mindAdKeepergut.[email or web address]. In person follow-up in August was discussed. Michael Bailon, Ph.D. [facility] 06-13-2024 History of Present illness Narrative Behavioral [facility] [place] Name: Socorro Gonsales MR#: [id number] Date: 06/13/2024 Time: 1 hour Referred by: Dr. 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 She was seen with her diego . She reports lifelong constipation (now alternating with diarrhea), and a childhood with instability, chaos, and deprivation, and insufficient access to bathrooms. She was diagnosed with YVONNE in 2019 secondary to family of origin issues. She had therapy to help to learn how to cope but she has not worked on healing from past trauma. She will explore getting therapy locally. The basic principles of the brain gut connection were explored. Emphasis was placed on the effects of stress and emotions on physiology. We discussed the role of hypersensitivity. She discussed ways in which her medical condition had had an effect on her life. She was given information about ways to mediate her emotional and physiological response. She was introduced to relaxation training. She was given the website for the [facility] and shown the relaxation recordings with the recommendation to practice this and the rationale behind their use. She was also given the websites for WeGoOutpain.org and [employer]. In person follow-up in August was discussed. Michael Bailon, Ph.D. documented in this encounter [facility] 06-05-2024 Emergency department Note Reviewed discharge instructions and patient verbalized understanding. No further questions. Patient ambulated out of ED with strong steady gait. Respirations even and non labored. No acute distress. A&O x4. Cheyanne Shane RN 06/05/242039 T 06-05-2024 Emergency department Note Reviewed discharge instructions and patient verbalized understanding. No further questions. Patient ambulated out of ED with strong steady gait. Respirations even and non labored. No acute distress. A&O x4. Cheyanne Shane RN 06/05/242039 Patient notes that she feels better since having a bowel movement and would prefer not to have a CT scan. She states PCP advised her to avoid further CT imaging due to excessive number of CT already been performed in the last 5 years. Patient declines a family history of Crohn's or UC and states has only had one rectal bleeding episode yesterday after having a bowel movement. She has a known history of hemorrhoids which she has treatments for at home. Patient states that she has a GI and has had colonoscopy for similar symptoms with no colitis noted. She states that she is taking two doses of miralax daily but has taken linzess in the past with relief. She declined Bentyl as it has caused headaches in the past without improvement of symptoms Cheyanne Shane RN 06/05/242012 EMERGENCY DEPARTMENT ENCOUNTER Pt Name: Socorro Gonsales Birthdate 1995 Date of evaluation: 06/05/2024 ED Provider: Bartolo Batres MD CHIEF COMPLAINT Chief Complaint Patient presents with Abdominal Pain HISTORY OF PRESENT ILLNESS (Location/Symptom, Timing/Onset, Context/Setting, Quality, Duration, Modifying Factors, Severity) Note limiting factors. I wore appropriate PPE for the entirety of this encounter. HPI Socorro Gonsales is a 28 y.o. who presents to the emergency department with crampy left lower quadrant and left flank abdominal pain and diarrhea and dehydration Patient has an extensive GI history, she has gastroparesis, pancreatitis, takes Protonix daily. Past surgical history of cholecystectomy and appendectomy and partial hysterectomy and kidney surgery. Drinks occasionally does not smoke. Prefers to avoid all narcotics if possible. 5 days ago she started on Augmentin antibiotics for an ear infection in the right ear. Starting yesterday she developed watery diarrhea. No melena. Right ear pain is getting much better, left ear appears perfectly normal. No sore throat no nasal congestion no chest pain no cough no shortness of breath. No sick contacts. Starting yesterday she had watery diarrhea and left lower quadrant and left flank abdominal cramping. No right lower quadrant or right upper quadrant pain. Minimal left upper quadrant pain. No vaginal bleeding no vaginal discharge. Pain does not radiate to her back. Patient does have a history of pancreatitis but says this feels very different. She feels like she is dehydrated. No nausea or vomiting at any time. No fevers or chills at any time. Not tachycardic or febrile or hypoxic here in the ED. No dysuria urgency frequency or hematuria. No back pain/pain over the CVA regions. Nursing Notes were reviewed. Limitations to history: None Outside historians: None REVIEW OF SYSTEMS Review of Systems Pertinent positives and negatives as per HPI PAST MEDICAL HISTORY Past Medical History: Diagnosis Date Asthma 2000 Hiatal hernia with gastroesophageal reflux Pancreatitis 2019 ? accurate SURGICAL HISTORY Past Surgical History: Procedure Laterality Date ABDOMINAL ADHESION SURGERY 2020 and 2021 APPENDECTOMY 2020 CHOLECYSTECTOMY 2019 COLONOSCOPY 2019 EXPLORATORY LAPAROTOMY 2018 KIDNEY SURGERY PARTIAL HYSTERECTOMY 2021 TUBAL LIGATION CURRENT MEDICATIONS Previous Medications ACETAMINOPHEN EXTRA STRENGTH 500 MG TABLET Take 1,000 mg by mouth every 6 hours as needed. ALBUTEROL 108 (90 BASE) MCG/ACT INHALER Inhale 2 puffs every 6 hours as needed. CHOLESTYRAMINE LIGHT (PREVALITE) 4 G PACKET Take 1 packet (4 g) by mouth 2 times daily. FLUTICASONE (FLONASE) 50 MCG/ACT NASAL SPRAY 2 sprays in the morning. PANTOPRAZOLE (PROTONIX) 40 MG EC TABLET Take 1 tablet (40 mg) by mouth every morning (before breakfast). Do not crush, chew, or split. ALLERGIES Keflex [cephalexin], Morphine, Ondansetron, Seasonal ic [octacosanol], Codeine, Gabapentin, and Latex FAMILY HISTORY Family History Problem Relation Name Age of Onset Other Mother Ramya summer Good pastures synd 07/31 with ICH, on Dialysis age 48 No Known Problems Father no contact with No Known Problems Sister No Known Problems Brother SOCIAL HISTORY Social History Socioeconomic History Marital status: Significant Other Tobacco Use Smoking status: Former Types: Cigarettes Smokeless tobacco: Former Tobacco comments: Vape Use Vaping Use Vaping status: Every Day Substances: Nicotine Substance and Sexual Activity Alcohol use: Yes Comment: social Drug use: Never Social History Narrative Single, has one son and one dtr. Engage to [employer]esh. 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 Overall Financial Resource Strain (CARDIA) Difficulty of Paying Living Expenses: Not hard at all Food Insecurity: No Food Insecurity (01/13/2021) Received from [facility] Hunger Vital Sign Worried About Running Out of Food in the Last Year: Never true Ran Out of Food in the Last Year: Never true Transportation Needs: No Transportation Needs (01/13/2021) Received from [email or web address] PRAPARE - Transportation Lack of Transportation (Medical): No Lack of Transportation (Non-Medical): No Physical Activity: Sufficiently Active (02/16/2019) Received from [facility] Exercise Vital Sign Days of Exercise per Week: 5 days Minutes of Exercise per Session: 150+ min Stress: Stress Concern Present (02/16/2019) Received from [facility] [place] [place] [facility] [employer] - Occupational Stress Questionnaire Feeling of Stress : To some extent Social Connections: Socially Isolated (02/16/2019) Received from [facility] Social Connection and Isolation Panel [NHANES] Frequency of Communication with Friends and Family: More than three times a week Frequency of Social Gatherings with Friends and Family: Once a week Attends Restorationism Services: Never Active Member of Clubs or Organizations: No Attends Club or Organization Meetings: Never Marital Status: Never Housing Stability: Low Risk (01/13/2021) Received from [facility] Housing Stability Vital Sign Unable to Pay for Housing in the Last Year: No Number of Places Lived in the Last Year: 1 Unstable Housing in the Last Year: No PHYSICAL EXAM ED Triage Vitals [06/05/24 1818] Temp Heart Rate Resp BP 36.3 C (97.4 F) 74 16 111/75 SpO2 Temp Source Heart Rate Source Patient Position 100 % Tympanic Monitor -- BP Location FiO2 (%) -- -- Physical Exam General: WDWN adult in NAD. Appears under the weather but nontoxic HENT: Head NCAT, EOMI with no erythema, swelling or discharge. No scleral icterus. Right TM is normal. Normal auditory acuity. No otitis media no otitis externa Left TM is normal. Normal auditory acuity. No otitis media no otitis externa Nares normal bilaterally Oropharyngeal mucus membranes dry, pink, no exudate Neck: Full ROM, supple, no rigidity Cardio: RRR, nl s1 s2 no m/r/g, extremities warm, dry, well perfused, non-edematous, 2+ bilateral radial pulses, 2+ bilateral TP pulses Lungs: CTAB, no wheezes, rales, rhonchi, normal work of breathing Abdomen: Soft, tender to palpation in the left lower quadrant more so than the left upper quadrant. There is no left flank pain to palpation. The right lower quadrant and the right upper quadrant are nontender to palpation. No right flank pain to palpation. No CVA tenderness to palpation bilaterally. Skin: Warm, dry, pink, no rashes, bruising, or lacerations, no petechiae, no purpura. There is a vertical surgical incision on the anterior abdomen which is well-healed. No wound dehiscence or infection. No jaundice. Neuro: Alert, oriented, mentating normally DIAGNOSTIC RESULTS RADIOLOGY (Per Emergency Physician): Interpretation per the Radiologist below, if available at the time of this note: No orders to display LABS: Labs Reviewed COMPREHENSIVE METABOLIC PANEL - Abnormal Result Value SODIUM 138 POTASSIUM 3.9 CHLORIDE 101 CARBON DIOXIDE 27 ANION GAP 10 UREA NITROGEN 9 CREATININE 0.67 GLUCOSE 87 CALCIUM 10.0 AST (SGOT) 51 (*) ALT 25 ALKALINE PHOSPHATASE 55 ALBUMIN 5.0 BILIRUBIN, TOTAL 0.8 TOTAL PROTEIN 8.8 (*) eGFR >90.0 COMPLETE URINALYSIS - Abnormal Color, Urine Colorless Clarity, Urine Clear pH, Urine 5.5 Leukocytes, Urine Negative Nitrite, Urine Negative Protein, Urine Negative Glucose, Urine Normal Bilirubin, Urine Negative Ketones, Urine Trace (*) Urobilinogen, Urine Normal Blood, Urine Negative SPECIFIC GRAVITY OF URINE (NUMERIC) 1.009 CBC WITH AUTO DIFFERENTIAL - Normal Auto WBC 7.5 RBC 4.56 Hemoglobin 14.3 Hematocrit 41.0 MCV 89.9 MCH 31.4 MCHC 34.9 RDW 11.8 Platelets 326 MPV 9.9 nRBC 0.0 Neutrophils Relative 50.7 Lymphocytes Relative 41.2 Monocytes Relative 5.2 Eosinophils Relative 1.9 Basophils Relative 0.7 Immature Grans % 0.3 Neutrophils Absolute 3.8 Lymphocytes Absolute 3.1 Monocytes Absolute 0.4 Eosinophils Absolute 0.1 Basophils Absolute 0.1 Immature Grans Absolute 0.0 LIPASE - Normal LIPASE 113 GASTROINTESTINAL PCR PANEL COMPLETE URINALYSIS WITH REFLEX TO CULTURE Narrative: The following orders were created for panel order Urinalysis Complete with reflex to Culture. Procedure Abnormality Status --------- ------ Complete Urinalysis[[id number]] Abnormal Final result Please view results for these tests on the individual orders. HCG QUALITATIVE URINE HCG,URINE QUAL Negative Narrative: is the most common reason for HCG in urine, although choriocarcinoma, hydatidiform mole, and certain nontrophoblastic malignancies also result in detectable urinary HCG levels. Sensitivity = 20mIU/mL. All other labs were within normal range or not returned as of this dictation. EMERGENCY DEPARTMENT COURSE and DIFFERENTIAL DIAGNOSIS/MDM: Vitals: Vitals: 06/05/248 06/05/242014 BP: 111/75 105/66 BP Location: Right arm Patient Position: Lying Pulse: 74 68 Resp: 16 14 Temp: 36.3 C (97.4 F) TempSrc: Tympanic SpO2: 100% 99% Weight: 69.9 kg (154 lb) Height: 1.651 m (5' 5) Medications sodium chloride 0.9 % bolus 1,500 mL (1,500 mL IntraVENous Not Given 06/05/241909) dicyclomine (Bentyl) injection 10 mg (20 mg IntraMUSCular Not Given 06/05/242000) famotidine (Pepcid) 20 mg in sodium chloride (PF) 0.9 % 10 mL injection (20 mg IntraVENous Given 06/05/241946) ketorolac (Toradol) injection 15 mg (15 mg IntraVENous Given 06/05/241956) acetaminophen (Tylenol) tablet 1,000 mg (1,000 mg Oral Given 06/05/242002) SCREENINGS 28-year-old female presents for left lower quadrant worse than left upper quad abdominal pain and cramping, watery diarrhea MDM elements: The patient presented with chief complaint of see above. The differential diagnosis associated with this patient's presentation includes this could represent infectious colitis or diverticulitis, pancreatitis is a possibility but patient says her pancreatitis attacks do not typically future diarrhea. Also the diarrhea started 4 days after she started the Augmentin so this could be antibiotic associated diarrhea. Patient does appear somewhat dehydrated. She has already had an appendectomy and already had a cholecystectomy and she has left-sided abdominal pain right side abdominal pains of cholelithiasis/cholecystitis and appendicitis seem unlikely. She has no dysuria urgency frequency or hematuria so urinary tract infection or Iftikhar seems unlikely. She does have a history of gastroparesis but she has no nausea or vomiting so the gastroparesis itself seems an unlikely culprit. Our workup consisted of ordering/reviewing: IV fluid resuscitation, stool culture, CT abdomen pelvis to look for colitis or diverticulitis, as well as the less likely ileus or SBO given her extensive abdominal surgeries. The otitis media infection in the right ear appears to be completely gone, so there is no indication to extend the Augmentin antibiotics for the otitis media infection specifically. We would give the patient Bentyl for abdominal cramping Pepcid, Toradol and Tylenol for pain. Patient specifically declines narcotics. To aid in management, I performed an independent interpretation of CT scan(s) see below Blood work, see below. I also reviewed external records from past medical [facility] to obtain collateral history. The patient will be Disposition depends on results of workup. Patient is in agreement with this plan. Patient's care was impacted by history of pancreatitis history of gastroparesis history of recent antibiotic use, extensive abdominal surgery. PROCEDURES: Unless otherwise noted below, none Procedures In terms of outpatient follow-up, the patient currently sees Dr. Peter Hanks of gastroenterology. However she says that he told her that her gastroparesis was gradually getting worse so she has been referred to see Dr. Bates of [facility] gastroenterology on 06/13/2024. Metabolic panel shows no metabolic acidosis, good kidney function, glucose within normal limits AST minimally elevated at 51 ALT unremarkable Alk phos unremarkable Lipase unremarkable Normal white blood cell count Not anemic Normal platelet count Urinalysis shows starvation ketosis dehydration but no urinary tract infection. Rehydrating patient with IV fluids. Not Stool culture ordered in case of infectious diarrhea. Awaiting stool sample. On reassessment, patient remains hemodynamically stable, abdominal pain is crampy and intermittent and relatively minimal. Proceeding with CT abdomen pelvis. 2022 The patient has changed her mind and decided that she does not want the CT of her abdomen pelvis. She understands that her workup is incomplete without the CT. However, she feels like her diarrhea has stopped and now she feels like she is actually more constipated than anything else. Moreover she is concerned about CAT scan radiation because she has had 15 CTs in the past few years and she does not want any more if she can possibly avoid them. We had a detailed discussion about her results and she has medical capacity to make an informed decision regarding the risk benefits and alternatives of getting a CT tonight to rule out diverticulitis colitis or other pathology including surgical issues. After weighing the pros and cons of getting another CAT scan tonight, patient decided to cancel the CT and go home instead. She wants to keep her previously scheduled appointment with her new GI physician Dr. Bates on 06/13/2024 and since she feels like she is switched from diarrhea into constipation she is actually asking me to prescribe her something for constipation instead. I will prescribe her Kelley-Colace for this issue but I encouraged her to use it sparingly because she is prone to both diarrhea and constipation and we do not want the Kelley-Colace to cause worsening diarrhea and thus worsening dehydration. Patient is welcome to come back to the ED at any time if she changes her mind and get the CT done. In particular, if the patient develops new onset hematochezia, melena, feels weak feels faint or passes out, new onset nausea or vomiting or is unable to eat or drink or feels like she is losing more fluid from diarrhea than she can taken by mouth, or develops jaundice or scleral icterus, then she should return to the ED immediately. Otherwise she plans to follow-up with her GI physician 06/13/2024. Results of workup and plan of care discussed with patient. She indicated understanding. Strict return precautions and anticipatory guidance given. All questions answered to her satisfaction. Patient discharged home in stable condition. Disposition: Informed refusal of further diagnostics. Patient discharged home at her request CRITICAL CARE TIME FINAL IMPRESSION 1. Left lower quadrant abdominal pain 2. Diarrhea, unspecified type 3. Dehydration 4. Constipation, unspecified constipation type DISPOSITION Discharge 06/05/2024 08:26:45 PM PATIENT REFERRED TO: No follow-up provider specified. DISCHARGE MEDICATIONS: New Prescriptions No medications on file (Comment: Please note this report has been produced using speech recognition software and may contain errors related to that system including errors in grammar, punctuation, and spelling, as well as words and phrases that may be inappropriate. If there are any questions or concerns please feel free to contact the dictating provider for clarification.) Bartolo Batres MD (electronically signed) Emergency Medicine Provider Bartolo Batres MD 06/05/242026 Patient to room 6 with c/o abdominal pain on the left side that started yesterday. Patient reports cramping pain with diarrhea. V/S obtained, call light within reach. documented in this encounter 06-05-2024 Hospital Discharge instructions Bartolo Batres MD - 06/05/2024 8:27 PM EDT You have been seen in the Emergency Department for diarrhea left side abdominal pain dehydration which is now transitioning into constipation. You have declined a CT of your abdomen pelvis to look for diverticulitis colitis or any potential surgical issues tonight; you are always welcome to come back to the ED at any time to get this done if you change your mind. You have requested medication for constipation so I have prescribed you Kelley-Colace; take 2 tabs twice a day, you should see relief within 3 days. However since you do have a tendency to have diarrhea, I advise you to use this sparingly. Make sure you stay well-hydrated by drinking small amounts of fluid frequently rather than large amounts all at once After a visit to the Emergency Department, follow-up is important. You should keep your previously scheduled appointment with [facility] gastroenterology Dr. Bates on 06/13/2024. Return to the ED if you develop worsening abdominal pain, unrelenting nausea or vomiting or diarrhea, bloody stools, black stools, vomiting blood, fevers, chills, you feel weak feel faint or pass out, you cannot eat or drink, or if any new signs, symptoms, or concerns arise. The following attachments cannot be sent through Care Everywhere.Constipation Discharge Instructions, Adult (Citizen [place])Diarrhea, Adult ED (Citizen [place])Severe Abdominal Pain Discharge Instructions, Adult (Citizen Of [place])Dehydration, Adult ED (Citizen [place])documented in this encounter 06-05-2024 Emergency department Note Patient notes that she feels better since having a bowel movement and would prefer not to have a CT scan. She states PCP advised her to avoid further CT imaging due to excessive number of CT already been performed in the last 5 years. Patient declines a family history of Crohn's or UC and states has only had one rectal bleeding episode yesterday after having a bowel movement. She has a known history of hemorrhoids which she has treatments for at home. Patient states that she has a GI and has had colonoscopy for similar symptoms with no colitis noted. She states that she is taking two doses of miralax daily but has taken linzess in the past with relief. She declined Bentyl as it has caused headaches in the past without improvement of symptoms Cheyanne Shane RN 06/05/242012 06-05-2024 Emergency department Triage note Patient to room 6 with c/o abdominal pain on the left side that started yesterday. Patient reports cramping pain with diarrhea. V/S obtained, call light within reach. 06-05-2024 Physician Emergency department Note EMERGENCY DEPARTMENT ENCOUNTER Pt Name: Socorro Gonsales Birthdate 1995 Date of evaluation: 06/05/2024 ED Provider: Bartolo Batres MD CHIEF COMPLAINT Chief Complaint Patient presents with Abdominal Pain HISTORY OF PRESENT ILLNESS (Location/Symptom, Timing/Onset, Context/Setting, Quality, Duration, Modifying Factors, Severity) Note limiting factors. I wore appropriate PPE for the entirety of this encounter. [facility] [employer] [facility] [employer] [facility] Socorro Gonsales is a 28 y.o. who presents to the emergency department with crampy left lower quadrant and left flank abdominal pain and diarrhea and dehydration Patient has an extensive GI history, she has gastroparesis, pancreatitis, takes Protonix daily. Past surgical history of cholecystectomy and appendectomy and partial hysterectomy and kidney surgery. Drinks occasionally does not smoke. Prefers to avoid all narcotics if possible. 5 days ago she started on Augmentin antibiotics for an ear infection in the right ear. Starting yesterday she developed watery diarrhea. No melena. Right ear pain is getting much better, left ear appears perfectly normal. No sore throat no nasal congestion no chest pain no cough no shortness of breath. No sick contacts. Starting yesterday she had watery diarrhea and left lower quadrant and left flank abdominal cramping. No right lower quadrant or right upper quadrant pain. Minimal left upper quadrant pain. No vaginal bleeding no vaginal discharge. Pain does not radiate to her back. Patient does have a history of pancreatitis but says this feels very different. She feels like she is dehydrated. No nausea or vomiting at any time. No fevers or chills at any time. Not tachycardic or febrile or hypoxic here in the ED. No dysuria urgency frequency or hematuria. No back pain/pain over the CVA regions. Nursing Notes were reviewed. Limitations to history: None Outside historians: None REVIEW OF SYSTEMS Review of Systems Pertinent positives and negatives as per [facility] [facility] [employer] [facility] PAST MEDICAL HISTORY Past Medical History: Diagnosis Date Asthma 2001 Hiatal hernia with gastroesophageal reflux Pancreatitis 2019 ? accurate SURGICAL HISTORY Past Surgical History: Procedure Laterality Date ABDOMINAL ADHESION SURGERY 2020 and 2021 APPENDECTOMY 2020 CHOLECYSTECTOMY 2020 COLONOSCOPY 2020 EXPLORATORY LAPAROTOMY 2019 KIDNEY SURGERY PARTIAL HYSTERECTOMY 2021 TUBAL LIGATION CURRENT MEDICATIONS Previous Medications ACETAMINOPHEN EXTRA STRENGTH 500 MG TABLET Take 1,000 mg by mouth every 6 hours as needed. ALBUTEROL 108 (90 BASE) MCG/ACT INHALER Inhale 2 puffs every 6 hours as needed. CHOLESTYRAMINE LIGHT (PREVALITE) 4 G PACKET Take 1 packet (4 g) by mouth 2 times daily. FLUTICASONE (FLONASE) 50 MCG/ACT NASAL SPRAY 2 sprays in the morning. PANTOPRAZOLE (PROTONIX) 40 MG EC TABLET Take 1 tablet (40 mg) by mouth every morning (before breakfast). Do not crush, chew, or split. ALLERGIES Keflex [cephalexin], Morphine, Ondansetron, Seasonal ic [octacosanol], Codeine, Gabapentin, and Latex FAMILY HISTORY Family History Problem Relation Name Age of Onset Other Mother Ramya summer Good pastures sb 07/31 fall with ICH, on Dialysis age 48 No Known Problems Father no contact with No Known Problems Sister No Known Problems Brother SOCIAL HISTORY Social History Socioeconomic History Marital status: Significant Other Tobacco Use Smoking status: Former Types: Cigarettes Smokeless tobacco: Former Tobacco comments: Vape Use Vaping Use Vaping status: Every Day Substances: Nicotine Substance and Sexual Activity Alcohol use: Yes Comment: social Drug use: Never Social History Narrative Single, has one son and one dtr. Engage to Chris. 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 Overall Financial Resource Strain ([facility]) Difficulty of Paying Living Expenses: Not hard at all Food Insecurity: No Food Insecurity (01/13/2021) Received from [facility] Hunger Vital Sign Worried About Running Out of Food in the Last Year: Never true Ran Out of Food in the Last Year: Never true Transportation Needs: No Transportation Needs (01/13/2021) Received from [facility] PRAPARE - Transportation Lack of Transportation (Medical): No Lack of Transportation (Non-Medical): No Physical Activity: Sufficiently Active (02/16/2019) Received from [facility] Exercise Vital Sign Days of Exercise per Week: 5 days Minutes of Exercise per Session: 150+ min Stress: Stress Concern Present (02/16/2019) Received from [facility] [employer] [place] [employer] - Occupational Stress Questionnaire Feeling of Stress : To some extent Social Connections: Socially Isolated (02/16/2019) Received from [facility] Social Connection and Isolation Panel [NHANES] Frequency of Communication with Friends and Family: More than three times a week Frequency of Social Gatherings with Friends and Family: Once a week Attends Restorationism Services: Never Active Member of Clubs or Organizations: No Attends Club or Organization Meetings: Never Marital Status: Never Housing Stability: Low Risk (01/13/2021) Received from [facility] Housing Stability Vital Sign Unable to Pay for Housing in the Last Year: No Number of Places Lived in the Last Year: 1 Unstable Housing in the Last Year: No PHYSICAL EXAM ED Triage Vitals [06/05/24 1818] Temp Heart Rate Resp BP 36.3 C (97.4 F) 74 16 111/75 SpO2 Temp Source Heart Rate Source Patient Position 100 % Tympanic Monitor -- BP Location FiO2 (%) -- -- Physical Exam General: WDWN adult in NAD. Appears under the weather but nontoxic HENT: Head NCAT, EOMI with no erythema, swelling or discharge. No scleral icterus. Right TM is normal. Normal auditory acuity. No otitis media no otitis externa Left TM is normal. Normal auditory acuity. No otitis media no otitis externa Nares normal bilaterally Oropharyngeal mucus membranes dry, pink, no exudate Neck: Full ROM, supple, no rigidity Cardio: RRR, nl s1 s2 no m/r/g, extremities warm, dry, well perfused, non-edematous, 2+ bilateral radial pulses, 2+ bilateral TP pulses Lungs: CTAB, no wheezes, rales, rhonchi, normal work of breathing Abdomen: Soft, tender to palpation in the left lower quadrant more so than the left upper quadrant. There is no left flank pain to palpation. The right lower quadrant and the right upper quadrant are nontender to palpation. No right flank pain to palpation. No CVA tenderness to palpation bilaterally. Skin: Warm, dry, pink, no rashes, bruising, or lacerations, no petechiae, no purpura. There is a vertical surgical incision on the anterior abdomen which is well-healed. No wound dehiscence or infection. No jaundice. Neuro: Alert, oriented, mentating normally DIAGNOSTIC RESULTS RADIOLOGY (Per Emergency Physician): Interpretation per the Radiologist below, if available at the time of this note: No orders to display LABS: Labs Reviewed COMPREHENSIVE METABOLIC PANEL - Abnormal Result Value SODIUM 138 POTASSIUM 3.9 CHLORIDE 101 CARBON DIOXIDE 27 ANION GAP 10 UREA NITROGEN 9 CREATININE 0.67 GLUCOSE 87 CALCIUM 10.0 AST (SGOT) 51 (*) ALT 25 ALKALINE PHOSPHATASE 55 ALBUMIN 5.0 BILIRUBIN, TOTAL 0.8 TOTAL PROTEIN 8.8 (*) eGFR >90.0 COMPLETE URINALYSIS - Abnormal Color, Urine Colorless Clarity, Urine Clear pH, Urine 5.5 Leukocytes, Urine Negative Nitrite, Urine Negative Protein, Urine Negative Glucose, Urine Normal Bilirubin, Urine Negative Ketones, Urine Trace (*) Urobilinogen, Urine Normal Blood, Urine Negative SPECIFIC GRAVITY OF URINE (NUMERIC) 1.009 CBC WITH AUTO DIFFERENTIAL - Normal Auto WBC 7.5 RBC 4.56 Hemoglobin 14.3 Hematocrit 41.0 MCV 89.9 MCH 31.4 MCHC 34.9 RDW 11.8 Platelets 326 MPV 9.9 nRBC 0.0 Neutrophils Relative 50.7 Lymphocytes Relative 41.2 Monocytes Relative 5.2 Eosinophils Relative 1.9 Basophils Relative 0.7 Immature Grans % 0.3 Neutrophils Absolute 3.8 Lymphocytes Absolute 3.1 Monocytes Absolute 0.4 Eosinophils Absolute 0.1 Basophils Absolute 0.1 Immature Grans Absolute 0.0 LIPASE - Normal LIPASE 113 GASTROINTESTINAL PCR PANEL COMPLETE URINALYSIS WITH REFLEX TO CULTURE Narrative: The following orders were created for panel order Urinalysis Complete with reflex to Culture. Procedure Abnormality Status --------- ------ Complete Urinalysis[[id number]] Abnormal Final result Please view results for these tests on the individual orders. HCG QUALITATIVE URINE HCG,URINE QUAL Negative Narrative: is the most common reason for HCG in urine, although choriocarcinoma, hydatidiform mole, and certain nontrophoblastic malignancies also result in detectable urinary HCG levels. Sensitivity = 20mIU/mL. All other labs were within normal range or not returned as of this dictation. EMERGENCY DEPARTMENT COURSE and DIFFERENTIAL DIAGNOSIS/MDM: Vitals: Vitals: 06/05/248 06/05/242014 BP: 111/75 105/66 BP Location: Right arm Patient Position: Lying Pulse: 74 68 Resp: 16 14 Temp: 36.3 C (97.4 F) TempSrc: Tympanic SpO2: 100% 99% Weight: 69.9 kg (154 lb) Height: 1.651 m (5' 5) Medications sodium chloride 0.9 % bolus 1,500 mL (1,500 mL IntraVENous Not Given 06/05/241909) dicyclomine (Bentyl) injection 10 mg (20 mg IntraMUSCular Not Given 06/05/242000) famotidine (Pepcid) 20 mg in sodium chloride (PF) 0.9 % 10 mL injection (20 mg IntraVENous Given 06/05/241946) ketorolac (Toradol) injection 15 mg (15 mg IntraVENous Given 06/05/241956) acetaminophen (Tylenol) tablet 1,000 mg (1,000 mg Oral Given 06/05/242002) SCREENINGS 28-year-old female presents for left lower quadrant worse than left upper quad abdominal pain and cramping, watery diarrhea MDM elements: The patient presented with chief complaint of see above. The differential diagnosis associated with this patient's presentation includes this could represent infectious colitis or diverticulitis, pancreatitis is a possibility but patient says her pancreatitis attacks do not typically future diarrhea. Also the diarrhea started 4 days after she started the Augmentin so this could be antibiotic associated diarrhea. Patient does appear somewhat dehydrated. She has already had an appendectomy and already had a cholecystectomy and she has left-sided abdominal pain right side abdominal pains of cholelithiasis/cholecystitis and appendicitis seem unlikely. She has no dysuria urgency frequency or hematuria so urinary tract infection or Iftikhar seems unlikely. She does have a history of gastroparesis but she has no nausea or vomiting so the gastroparesis itself seems an unlikely culprit. Our workup consisted of ordering/reviewing: IV fluid resuscitation, stool culture, CT abdomen pelvis to look for colitis or diverticulitis, as well as the less likely ileus or SBO given her extensive abdominal surgeries. The otitis media infection in the right ear appears to be completely gone, so there is no indication to extend the Augmentin antibiotics for the otitis media infection specifically. We would give the patient Bentyl for abdominal cramping Pepcid, Toradol and Tylenol for pain. Patient specifically declines narcotics. To aid in management, I performed an independent interpretation of CT scan(s) see below Blood work, see below. I also reviewed external records from past medical [facility] in [facility] to obtain collateral history. The patient will be Disposition depends on results of workup. Patient is in agreement with this plan. Patient's care was impacted by history of pancreatitis history of gastroparesis history of recent antibiotic use, extensive abdominal surgery. PROCEDURES: Unless otherwise noted below, none Procedures In terms of outpatient follow-up, the patient currently sees Dr. Peter Hanks of gastroenterology. However she says that he told her that her gastroparesis was gradually getting worse so she has been referred to see Dr. Bates of [facility] gastroenterology on 06/13/2024. Metabolic panel shows no metabolic acidosis, good kidney function, glucose within normal limits AST minimally elevated at 51 ALT unremarkable Alk phos unremarkable Lipase unremarkable Normal white blood cell count Not anemic Normal platelet count Urinalysis shows starvation ketosis dehydration but no urinary tract infection. Rehydrating patient with IV fluids. Not Stool culture ordered in case of infectious diarrhea. Awaiting stool sample. On reassessment, patient remains hemodynamically stable, abdominal pain is crampy and intermittent and relatively minimal. Proceeding with CT abdomen pelvis. 2022 The patient has changed her mind and decided that she does not want the CT of her abdomen pelvis. She understands that her workup is incomplete without the CT. However, she feels like her diarrhea has stopped and now she feels like she is actually more constipated than anything else. Moreover she is concerned about CAT scan radiation because she has had 15 CTs in the past few years and she does not want any more if she can possibly avoid them. We had a detailed discussion about her results and she has medical capacity to make an informed decision regarding the risk benefits and alternatives of getting a CT tonight to rule out diverticulitis colitis or other pathology including surgical issues. After weighing the pros and cons of getting another CAT scan tonight, patient decided to cancel the CT and go home instead. She wants to keep her previously scheduled appointment with her new GI physician Dr. Bates on 06/13/2024 and since she feels like she is switched from diarrhea into constipation she is actually asking me to prescribe her something for constipation instead. I will prescribe her Kelley-Colace for this issue but I encouraged her to use it sparingly because she is prone to both diarrhea and constipation and we do not want the Kelley-Colace to cause worsening diarrhea and thus worsening dehydration. Patient is welcome to come back to the ED at any time if she changes her mind and get the CT done. In particular, if the patient develops new onset hematochezia, melena, feels weak feels faint or passes out, new onset nausea or vomiting or is unable to eat or drink or feels like she is losing more fluid from diarrhea than she can taken by mouth, or develops jaundice or scleral icterus, then she should return to the ED immediately. Otherwise she plans to follow-up with her GI physician 06/13/2024. Results of workup and plan of care discussed with patient. She indicated understanding. Strict return precautions and anticipatory guidance given. All questions answered to her satisfaction. Patient discharged home in stable condition. Disposition: Informed refusal of further diagnostics. Patient discharged home at her request CRITICAL CARE TIME FINAL IMPRESSION 1. Left lower quadrant abdominal pain 2. Diarrhea, unspecified type 3. Dehydration 4. Constipation, unspecified constipation type DISPOSITION Discharge 06/05/2024 08:26:45 PM PATIENT REFERRED TO: No follow-up provider specified. DISCHARGE MEDICATIONS: New Prescriptions No medications on file (Comment: Please note this report has been produced using speech recognition software and may contain errors related to that system including errors in grammar, punctuation, and spelling, as well as words and phrases that may be inappropriate. If there are any questions or concerns please feel free to contact the dictating provider for clarification.) Bartolo Batres MD (electronically signed) Emergency Medicine Provider Bartolo Batres MD 06/05/242026 05-30-2024 Note HNO ID: [id number] Author: RENATE BLANDON APRN.ENGINE DISPATCHER Service: ? Author Type: Nurse Practitioner Type: Progress Notes Filed: 05/30/2024 16:50 Note Text: This note was created using [employer]. Subjective Socorro Gonsales is a 28 year old female. 28 year old female with PMH asthma presents for illness. Acute onset yesterday Right ear pain +throat pain +enlarged lymph nodes Denies cough Denies accompanying eye, nose complaints. Denies SOB or dyspnea Denies abdominal pain Denies N/V/D Denies fever or chills Used Tylenol with no relief Denies tobacco usage Partial hysterectomy 2 years ago The history is provided by the patient. No agriculture scientist was used. Ear Pain This is a new problem. The current episode started yesterday. The problem occurs constantly. The problem has been gradually worsening. Associated symptoms include a sore throat and swollen glands. Pertinent negatives include no abdominal pain, anorexia, arthralgias, change in bowel habit, chest pain, chills, congestion, coughing, diaphoresis, fatigue, fever, headaches, joint swelling, myalgias, nausea, neck pain, numbness, rash, urinary symptoms, vertigo, visual change, vomiting or weakness. Nothing aggravates the symptoms. She has tried nothing for the symptoms. The treatment provided no relief. PAST MEDICAL HISTORY Diagnosis Date Anemia anxiety Asthma PAST SURGICAL HISTORY Procedure Laterality Date LAPAROSCOPY W/RMVL ADNEXAL STRUCTURES Bilateral 04/28/2018 l/s bilateral salpingectomy PAST SURGICAL HISTORY OF wisdom teeth PAST SURGICAL HISTORY OF 03/2020 exploratory laparoscopy VAGINAL HYSTERECTOMY 2021 ALLERGIES Codeine, Gabapentin, Latex, Seasonal Allergies, and Zofran [Ondansetron] MEDICATIONS albuterol HFA (PROVENTIL HFA, VENTOLIN HFA) 90 mcg/actuation inhaler Inhale 2 Puffs as instructed every 6 hours as needed for wheezing/shortness of breath. fluticasone (FLONASE) 50 mcg/actuation nasal spray Use 2 Sprays in each nostril once daily. Rinse mouth after use. pantoprazole DR (PROTONIX) 40 mg tablet Take 40 mg by mouth once daily. amoxicillin-clavulanate potassium (AUGMENTIN) 875-125 mg per tablet Take 1 tablet by mouth two times a day for 7 days. FAMILY HISTORY Problem Relation Age of Onset Heart Mother Seizures Mother Stroke Mother Multiple Sclerosis Mother Psychiatry Sister Manic Depression Hypertension Maternal Grandfather Breast Cancer Maternal Aunt Hypertension Maternal Uncle Social History Tobacco Use Smoking status: Former Types: Cigarettes Smokeless tobacco: Never Substance Use Topics Alcohol use: Yes Comment: rarely Drug use: No Review of Systems Constitutional: Negative for chills, diaphoresis, fatigue and fever. HENT: Positive for ear pain and sore throat. Negative for congestion, rhinorrhea, sinus pressure and sinus pain. Eyes: Negative for pain, discharge, redness and itching. Respiratory: Negative for apnea, cough, choking and chest tightness. Cardiovascular: Negative for chest pain. Gastrointestinal: Negative for abdominal pain, anorexia, change in bowel habit, diarrhea, nausea and vomiting. Musculoskeletal: Negative for arthralgias, joint swelling, myalgias and neck pain. Skin: Negative for rash. Allergic/Immunologic: Negative for environmental allergies, food allergies and immunocompromised state. Neurological: Negative for vertigo, weakness, numbness and headaches. Hematological: Negative for adenopathy. Does not bruise/bleed easily. Psychiatric/Behavioral: Negative for agitation and behavioral problems. Objective BP 102/64 Pulse 80 Temp 37 ?C (98.6 ?F) (Tympanic) Resp 18 Wt 69.9 kg (154 lb 1.6 oz) LMP 03/25/2022 SpO2 98% BMI 25.64 kg/m? Physical Exam Vitals and nursing note reviewed. Constitutional: General: She is not in acute distress. Appearance: Normal appearance. She is normal weight. She is not ill-appearing, toxic-appearing or diaphoretic. HENT: Head: Normocephalic and atraumatic. Right Ear: Ear canal and external ear normal. Left Ear: Ear canal and external ear normal. Nose: Nose normal. No congestion or rhinorrhea. Mouth/Throat: Mouth: Mucous membranes are moist. Pharynx: No oropharyngeal exudate or posterior oropharyngeal erythema. Eyes: General: Right eye: No discharge. Left eye: No discharge. Extraocular Movements: Extraocular movements intact. Conjunctiva/sclera: Conjunctivae normal. Pupils: Pupils are equal, round, and reactive to light. Cardiovascular: Rate and Rhythm: Normal rate and regular rhythm. Pulses: Normal pulses. Heart sounds: Normal heart sounds. No murmur heard. No friction rub. Pulmonary: Effort: Pulmonary effort is normal. No respiratory distress. Breath sounds: Normal breath sounds. No stridor. No wheezing, rhonchi or rales. Chest: Chest wall: No tenderness. Abdominal: General: Abdomen is flat. There is no distension. (more content not included)... [facility] 05-30-2024 History of Present illness Narrative This note was created using [employer]. Subjective Socorro Gonsales is a 28 year old female. 28 year old female with PMH asthma presents for illness. Acute onset yesterday Right ear pain +throat pain +enlarged lymph nodes Denies cough Denies accompanying eye, nose complaints. Denies SOB or dyspnea Denies abdominal pain Denies N/V/D Denies fever or chills Used Tylenol with no relief Denies tobacco usage Partial hysterectomy 2 years ago The history is provided by the patient. No agriculture scientist was used. Ear Pain This is a new problem. The current episode started yesterday. The problem occurs constantly. The problem has been gradually worsening. Associated symptoms include a sore throat and swollen glands. Pertinent negatives include no abdominal pain, anorexia, arthralgias, change in bowel habit, chest pain, chills, congestion, coughing, diaphoresis, fatigue, fever, headaches, joint swelling, myalgias, nausea, neck pain, numbness, rash, urinary symptoms, vertigo, visual change, vomiting or weakness. Nothing aggravates the symptoms. She has tried nothing for the symptoms. The treatment provided no relief. PAST MEDICAL HISTORY Diagnosis Date Anemia anxiety Asthma PAST SURGICAL HISTORY Procedure Laterality Date LAPAROSCOPY W/RMVL ADNEXAL STRUCTURES Bilateral 04/28/2018 l/s bilateral salpingectomy PAST SURGICAL HISTORY OF wisdom teeth PAST SURGICAL HISTORY OF 03/2020 exploratory laparoscopy VAGINAL HYSTERECTOMY 2021 ALLERGIES Codeine, Gabapentin, Latex, Seasonal Allergies, and Zofran [Ondansetron] MEDICATIONS albuterol HFA (PROVENTIL HFA, VENTOLIN HFA) 90 mcg/actuation inhaler Inhale 2 Puffs as instructed every 6 hours as needed for wheezing/shortness of breath. fluticasone (FLONASE) 50 mcg/actuation nasal spray Use 2 Sprays in each nostril once daily. Rinse mouth after use. pantoprazole DR (PROTONIX) 40 mg tablet Take 40 mg by mouth once daily. amoxicillin-clavulanate potassium (AUGMENTIN) 875-125 mg per tablet Take 1 tablet by mouth two times a day for 7 days. FAMILY HISTORY Problem Relation Age of Onset Heart Mother Seizures Mother Stroke Mother Multiple Sclerosis Mother Psychiatry Sister Manic Depression Hypertension Maternal Grandfather Breast Cancer Maternal Aunt Hypertension Maternal Uncle Social History Tobacco Use Smoking status: Former Types: Cigarettes Smokeless tobacco: Never Substance Use Topics Alcohol use: Yes Comment: rarely Drug use: No Review of Systems Constitutional: Negative for chills, diaphoresis, fatigue and fever. HENT: Positive for ear pain and sore throat. Negative for congestion, rhinorrhea, sinus pressure and sinus pain. Eyes: Negative for pain, discharge, redness and itching. Respiratory: Negative for apnea, cough, choking and chest tightness. Cardiovascular: Negative for chest pain. Gastrointestinal: Negative for abdominal pain, anorexia, change in bowel habit, diarrhea, nausea and vomiting. Musculoskeletal: Negative for arthralgias, joint swelling, myalgias and neck pain. Skin: Negative for rash. Allergic/Immunologic: Negative for environmental allergies, food allergies and immunocompromised state. Neurological: Negative for vertigo, weakness, numbness and headaches. Hematological: Negative for adenopathy. Does not bruise/bleed easily. Psychiatric/Behavioral: Negative for agitation and behavioral problems. Objective BP 102/64 Pulse 80 Temp 37 C (98.6 F) (Tympanic) Resp 18 Wt 69.9 kg (154 lb 1.6 oz) LMP 03/25/2022 SpO2 98% BMI 25.64 kg/m Physical Exam Vitals and nursing note reviewed. Constitutional: General: She is not in acute distress. Appearance: Normal appearance. She is normal weight. She is not ill-appearing, toxic-appearing or diaphoretic. HENT: Head: Normocephalic and atraumatic. Right Ear: Ear canal and external ear normal. Left Ear: Ear canal and external ear normal. Nose: Nose normal. No congestion or rhinorrhea. Mouth/Throat: Mouth: Mucous membranes are moist. Pharynx: No oropharyngeal exudate or posterior oropharyngeal erythema. Eyes: General: Right eye: No discharge. Left eye: No discharge. Extraocular Movements: Extraocular movements intact. Conjunctiva/sclera: Conjunctivae normal. Pupils: Pupils are equal, round, and reactive to light. Cardiovascular: Rate and Rhythm: Normal rate and regular rhythm. Pulses: Normal pulses. Heart sounds: Normal heart sounds. No murmur heard. No friction rub. Pulmonary: Effort: Pulmonary effort is normal. No respiratory distress. Breath sounds: Normal breath sounds. No stridor. No wheezing, rhonchi or rales. Chest: Chest wall: No tenderness. Abdominal: General: Abdomen is flat. There is no distension. Palpations: Abdomen is soft. There is no mass. Tenderness: There is no abdominal tenderness. There is no right CVA tenderness, left CVA tenderness, guarding or rebound. Hernia: No hernia is present. Musculoskeletal: General: No swelling, tenderness, deformity or signs of injury. Normal range of motion. Cervical back: Normal range of motion and neck supple. No rigidity. Right lower leg: No edema. Left lower leg: No edema. Lymphadenopathy: Cervical: No cervical adenopathy. Skin: General: Skin is warm and dry. Coloration: Skin is not jaundiced or pale. Findings: No bruising, erythema, lesion or rash. Neurological: General: No focal deficit present. Mental Status: She is alert and oriented to person, place, and time. Cranial Nerves: No cranial nerve deficit. Sensory: No sensory deficit. Motor: No weakness. Coordination: Coordination normal. Gait: Gait normal. Psychiatric: Mood and Affect: Mood normal. Behavior: Behavior normal. Thought Content: Thought content normal. Judgment: Judgment normal. Assessment and Plan ASSESSMENT/PLAN: 1. Acute otitis media, right - ICD9: 382.9, ICD10: H66.91 - Will begin treatment with as per antibiotic as written, see orders - The patient should also be given OTC cough and cold meds as needed, warm salt water gargles, throat lozenges and/or OTC throat spray as needed, and nasal saline gtts and suction prn for the first 5-7 days of treatment. - Supportive care with plenty of fluids, rest, and analgesia prn. - Follow up in 3-5 days if symptoms persist or worsen. Renate Blandon APRN.JORDANA documented in this encounter [facility] 05-15-2024 History of Present illness Narrative Radiology Service Progress Note PATIENT NAME: Socorro Gonsales DATE OF SERVICE: May 15, 2024 TIME: 11:10 AM PATIENT IDENTITY VERIFICATION COMPLETED USING TWO (2) IDENTIFIERS: Name and Date of confirmed by patient verbally. FALL SCREENING: Has the patient had 2 falls in the last year or 1 fall with injury or currently using an Ambulatory Assistive Device (Walker, Cane, Wheelchair, Crutches, etc.)? No PATIENT GENDER DATA: Female. status: : No status: NO. PATIENT RELEVANT IMPLANT DATA REVIEWED: Yes PATIENT PRESENTS WITH AN IMPLANTABLE OR ATTACHED RESIDENTIAL WORKER: No RADIOLOGY DEPARTMENT: General X-ray: Exam(s) Completed: Chest X-Ray PERIPHERAL IV DATA: Not applicable SIGNED BY: RT Lulu(Maribell) May 15, 2024 11:10 AM documented in this encounter [facility] 05-15-2024 Note HNO ID: [id number] Author: GAVINO GAINES RT(R) Service: Radiology Author Type: Technologist Type: Progress Notes Filed: 05/15/2024 11:16 Note Text: Radiology Service Progress Note PATIENT NAME: Socorro Gonsales DATE OF SERVICE: May 15, 2024 TIME: 11:10 AM PATIENT IDENTITY VERIFICATION COMPLETED USING TWO (2) IDENTIFIERS: Name and Date of confirmed by patient verbally. FALL SCREENING: Has the patient had 2 falls in the last year or 1 fall with injury or currently using an Ambulatory Assistive Device (Walker, Cane, Wheelchair, Crutches, etc.)? No PATIENT GENDER DATA: Female. status: : No status: NO. PATIENT RELEVANT IMPLANT DATA REVIEWED: Yes PATIENT PRESENTS WITH AN IMPLANTABLE OR ATTACHED RESIDENTIAL WORKER: No RADIOLOGY DEPARTMENT: General X-ray: Exam(s) Completed: Chest X-Ray PERIPHERAL IV DATA: Not applicable SIGNED BY: RT Lulu(Maribell) May 15, 2024 11:10 AM [facility] 05-15-2024 Note HNO ID: [id number] Author: DEO FELICIANO MD Service: ? Author Type: Physician Type: Progress Notes Filed: 05/15/2024 11:23 Note Text: Patient presents with: Nasal Congestion: chest congestion, cough, bodyaches, headache and fever x 1 day HPI: Feeling sick since yesterday. Both of her children are diagnosed with pneumonia today. Positive symptoms: Cough, Nasal Congestion, Fever, Body Aches, Headache, Shortness of breath, Wheezing, Chest tightness, Sore throat, Malaise, Fatigue, Negative symptoms: Nausea, Vomiting, Diarrhea, OTC: Tylenol, flonase, vicks. Inhaler is . MEDICATIONS: Current Outpatient Medications Medication Sig fluticasone (FLONASE) 50 mcg/actuation nasal spray Use 2 Sprays in each nostril once daily. Rinse mouth after use. pantoprazole DR (PROTONIX) 40 mg tablet Take 40 mg by mouth once daily. albuterol HFA (PROVENTIL HFA, VENTOLIN HFA) 90 mcg/actuation inhaler Inhale 2 Puffs as instructed every 6 hours as needed for wheezing/shortness of breath. No current facility-administered medications for this visit. ALLERGIES: ALLERGIES Allergen Reactions Codeine Rash, Itching Gabapentin Other: See Comments, Unknown [place] like Heart was racing Latex Rash, Itching Seasonal Allergies Other: See Comments nasal congestion Zofran [Ondansetron] Itching Itching and redness in arm when given Zofran IV VITALS: BP 102/62 Pulse 70 Temp 36.9 ?C (98.5 ?F) Resp 16 Wt 68.9 kg (151 lb 14.4 oz) LMP 03/25/2022 SpO2 98% BMI 25.28 kg/m? PHYSICAL EXAM: GEN: ill appearing HEENT: PERRL, EOMI, conjunctiva clear Ears: canals clear. TMs without erythema, bulge, or effusion Sinuses: non-tender frontal sinus, non-tender maxillary sinuses Throat: moist mucous membranes, uvular palatal petechia, mild erythema, no exudate Neck: supple, no thyromegaly, no lymphadenopathy HEART: regular rate and rhythm, no murmurs LUNGS: mild scattered wheezes, no crackles, no increased WOB ASSESSMENT/PLAN: 1. Wheezing - ICD9: 786.07, ICD10: R06.2 (primary diagnosis) 2. Influenza-like illness - ICD9: 487.1, ICD10: J11.1 3. Mild intermittent asthma with acute exacerbation - ICD9: 493.92, ICD10: J45.21 - XR CHEST 2V FRONTAL/LAT - no obvious pneumonia. Radiology interpretation is pending. The patient will be notified if there is a significant finding in the report not discussed at the time of the visit. - COVID AND INFLUENZA A/B AND RSV PCR, ROUTINE - ALBUTEROL SULFATE HFA 90 MCG/ACTUATION AEROSOL INHALER - PREDNISONE 10 MG TABLET taper Follow up with worsening cough, worsening shortness of breath, increasing chest pain, or late onset fever. Deo Feliciano MD [facility] 05-15-2024 History of Present illness Narrative Patient presents with: Nasal Congestion: chest congestion, cough, bodyaches, headache and fever x 1 day HPI: Feeling sick since yesterday. Both of her children are diagnosed with pneumonia today. Positive symptoms: Cough, Nasal Congestion, Fever, Body Aches, Headache, Shortness of breath, Wheezing, Chest tightness, Sore throat, Malaise, Fatigue, Negative symptoms: Nausea, Vomiting, Diarrhea, OTC: Tylenol, flonase, vicks. Inhaler is . MEDICATIONS: Current Outpatient Medications Medication Sig fluticasone (FLONASE) 50 mcg/actuation nasal spray Use 2 Sprays in each nostril once daily. Rinse mouth after use. pantoprazole DR (PROTONIX) 40 mg tablet Take 40 mg by mouth once daily. albuterol HFA (PROVENTIL HFA, VENTOLIN HFA) 90 mcg/actuation inhaler Inhale 2 Puffs as instructed every 6 hours as needed for wheezing/shortness of breath. No current facility-administered medications for this visit. ALLERGIES: ALLERGIES Allergen Reactions Codeine Rash, Itching Gabapentin Other: See Comments, Unknown [place] like Heart was racing Latex Rash, Itching Seasonal Allergies Other: See Comments nasal congestion Zofran [Ondansetron] Itching Itching and redness in arm when given Zofran IV VITALS: BP 102/62 Pulse 70 Temp 36.9 C (98.5 F) Resp 16 Wt 68.9 kg (151 lb 14.4 oz) LMP 03/25/2022 SpO2 98% BMI 25.28 kg/m PHYSICAL EXAM: GEN: ill appearing HEENT: PERRL, EOMI, conjunctiva clear Ears: canals clear. TMs without erythema, bulge, or effusion Sinuses: non-tender frontal sinus, non-tender maxillary sinuses Throat: moist mucous membranes, uvular palatal petechia, mild erythema, no exudate Neck: supple, no thyromegaly, no lymphadenopathy HEART: regular rate and rhythm, no murmurs LUNGS: mild scattered wheezes, no crackles, no increased WOB ASSESSMENT/PLAN: 1. Wheezing - ICD9: 786.07, ICD10: R06.2 (primary diagnosis) 2. Influenza-like illness - ICD9: 487.1, ICD10: J11.1 3. Mild intermittent asthma with acute exacerbation - ICD9: 493.92, ICD10: J45.21 - XR CHEST 2V FRONTAL/LAT - no obvious pneumonia. Radiology interpretation is pending. The patient will be notified if there is a significant finding in the report not discussed at the time of the visit. - COVID & INFLUENZA A/B & RSV PCR, ROUTINE - ALBUTEROL SULFATE HFA 90 MCG/ACTUATION AEROSOL INHALER - PREDNISONE 10 MG TABLET taper Follow up with worsening cough, worsening shortness of breath, increasing chest pain, or late onset fever. Deo Feliciano MD documented in this encounter [facility] 04-25-2024 History of Present illness Narrative Images from the original note were not included. General Surgery History and Physical Lenin De Los Santos MD, MPH Patient ID: Socorro Gonsales [id number] 28 y.o. 1995 CHIEF COMPLAINT: Chief Complaint Patient presents with Follow-up Lump on chest LT side, last seen 2022 HPI: Socorro Gonsales is a 28 y.o. female who presents with left breast fullness, concern for left breast asymmetry. I have seen the patient multiple times in the past. I originally saw her with complaints of bilateral nipple discharge that was extensively evaluated with imaging and since resolved. She underwent extensive workup including MRI which did not demonstrate any findings. The patient does have dense breasts with suspected fibrocystic disease. She had similar complaints in the right breast previously. Ultrasound and MRI did not demonstrate abnormality. The complaints did subside. I then did evaluate her for some abdominal complaints and she has escalated her care through gastroenterology as well as now referrals through the [facility]. Regarding her acute complaint of left breast fullness and left breast asymmetry, she has noticed this now for about the past month or so. She denies any significant pain but she was just concerned primarily about the fullness appreciated. She feels that her left breast is more engorged and feels similar to how it was following breast-feeding. She has a history of hysterectomy. She feels that her left breast is enlarged in comparison to the right and she became concerned, requesting consultation and evaluation. Patient denies any nipple discharge, redness, swelling. She does state that occasionally the left breast feels warmer than the right breast. She states her fianc is also evaluated and concurs with this thought. Regarding the patient's abdominal complaints, she continues with evaluation for gastroparesis and will be following closely with gastroenterology and the [facility] physicians. Past Medical History: Diagnosis Date Asthma 2001 Hiatal hernia with gastroesophageal reflux Pancreatitis 2019 ? accurate Past Surgical History: Procedure Laterality Date ABDOMINAL ADHESION SURGERY 2020 and 2021 APPENDECTOMY 2020 CHOLECYSTECTOMY 2019 COLONOSCOPY 2019 EXPLORATORY LAPAROTOMY 2018 KIDNEY SURGERY PARTIAL HYSTERECTOMY 2021 TUBAL LIGATION Medications Prior to Visit: Prior to Admission medications Medication Sig Start Date End Date Taking? Authorizing Provider Acetaminophen Extra Strength 500 MG tablet Take 1,000 mg by mouth every 6 hours as needed. 05/05/22 Yes Historical Provider, albuterol 108 (90 Base) MCG/ACT inhaler Inhale 2 puffs every 6 hours as needed. 08/17/20 Yes Historical Provider, albuterol 108 (90 Base) MCG/ACT inhaler inhale 2 puffs by mouth and INTO THE LUNGS every 6 hours if neede... (REFER TO PRESCRIPTION NOTES). 06/03/22 Yes Historical Provider, dicyclomine (Bentyl) 10 MG capsule Take 2 capsules (20 mg) by mouth in the morning and 2 capsules (20 mg) at noon and 2 capsules (20 mg) in the evening and 2 capsules (20 mg) before bedtime. 06/08/23 06/07/24 Yes Lenin De Los Santos MD pantoprazole (ProtoNix) 40 MG EC tablet Take 1 tablet (40 mg) by mouth every morning (before breakfast). Do not crush, chew, or split. 06/08/23 10/06/23 Yes Lenin De Los Santos MD psyllium (Metamucil) 58.6 % packet Take 1 packet (3.4 g of fiber) by mouth daily. Mix and drink with at least 8 ounces of water or juice. 06/08/23 07/15/23 Yes Lenin De Los Santos MD Allergies: Keflex [cephalexin], Morphine, Ondansetron, Seasonal ic [octacosanol], Codeine, Gabapentin, and Latex Social History Socioeconomic History Marital status: Significant Other Tobacco Use Smoking status: Former Types: Cigarettes Smokeless tobacco: Former Tobacco comments: Vape Use Vaping Use Vaping status: Every Day Substances: Nicotine Substance and Sexual Activity Alcohol use: Yes Comment: social Drug use: Never Social History Narrative Single, has one son and one dtr. Engage to 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 Overall Financial Resource Strain ([facility]) Difficulty of Paying Living Expenses: Not hard at all Food Insecurity: No Food Insecurity (01/13/2021) Received from [facility] Hunger Vital Sign Worried About Running Out of Food in the Last Year: Never true Ran Out of Food in the Last Year: Never true Transportation Needs: No Transportation Needs (01/13/2021) Received from [facility] PRAPARE - Transportation Lack of Transportation (Medical): No Lack of Transportation (Non-Medical): No Physical Activity: Sufficiently Active (02/16/2019) Received from [facility] Exercise Vital Sign Days of Exercise per Week: 5 days Minutes of Exercise per Session: 150+ min Stress: Stress Concern Present (02/16/2019) Received from [facility] [employer] [place] [employer] [facility] - Occupational Stress Questionnaire Feeling of Stress : To some extent Social Connections: Socially Isolated (02/16/2019) Received from [facility] Social Connection and Isolation Panel [NHANES] Frequency of Communication with Friends and Family: More than three times a week Frequency of Social Gatherings with Friends and Family: Once a week Attends Restorationism Services: Never Active Member of Clubs or Organizations: No Attends Club or Organization Meetings: Never Marital Status: Never Housing Stability: Low Risk (01/13/2021) Received from [facility] Housing Stability Vital Sign Unable to Pay for Housing in the Last Year: No Number of Places Lived in the Last Year: 1 Unstable Housing in the Last Year: No Family History Problem Relation Name Age of Onset Other Mother Ramya mcmullen Good pastures sb 07/31 fall with ICH, on Dialysis age 48 No Known Problems Father no contact with No Known Problems Sister No Known Problems Brother Review of Systems: Review of Systems Constitutional: Negative for chills, fever and unexpected weight change. HENT: Negative for drooling, facial swelling, hearing loss, nosebleeds, rhinorrhea, sneezing and trouble swallowing. Respiratory: Negative for apnea, cough, chest tightness, shortness of breath, wheezing and stridor. Cardiovascular: Negative for chest pain and leg swelling. Gastrointestinal: Positive for abdominal pain (chronic), constipation (chronic), diarrhea (chronic) and nausea (chronic). Negative for abdominal distention and vomiting. Endocrine: Negative. Left breast pain and fullness Genitourinary: Negative for decreased urine volume, difficulty urinating, dysuria, flank pain and urgency. Musculoskeletal: Negative for gait problem, joint swelling and myalgias. Skin: Negative for color change, pallor, rash and wound. Allergic/Immunologic: Negative. Neurological: Negative for dizziness, speech difficulty, weakness, light-headedness and headaches. Hematological: Does not bruise/bleed easily. Psychiatric/Behavioral: Negative for agitation, behavioral problems, confusion and decreased concentration. The patient is nervous/anxious. Physical Exam: BP 106/67 Pulse (!) 112 Temp 36.3 C (97.4 F) Ht 5' 5 (1.651 m) Wt 152 lb 6.4 oz (69.1 kg) BMI 25.36 kg/m Physical Exam Exam conducted with a talent acquisition lead present. Constitutional: General: She is not in acute distress. Appearance: She is not ill-appearing, toxic-appearing or diaphoretic. Comments: Appears stated age HENT: Head: Normocephalic and atraumatic. Right Ear: External ear normal. Left Ear: External ear normal. Nose: Nose normal. No rhinorrhea. Mouth/Throat: Mouth: Mucous membranes are moist. Eyes: General: No scleral icterus. Right eye: No discharge. Left eye: No discharge. Extraocular Movements: Extraocular movements intact. Conjunctiva/sclera: Conjunctivae normal. Cardiovascular: Rate and Rhythm: Normal rate. Pulses: Normal pulses. Pulmonary: Effort: Pulmonary effort is normal. No respiratory distress. Breath sounds: No wheezing. Chest: Abdominal: General: There is no distension. Palpations: There is no mass. Tenderness: There is no abdominal tenderness. There is no guarding or rebound. Comments: Numerous scars, soft and nontender Musculoskeletal: General: No swelling, tenderness, deformity or signs of injury. Normal range of motion. Cervical back: Normal range of motion. No rigidity. Skin: General: Skin is warm and dry. Neurological: General: No focal deficit present. Mental Status: She is alert. Cranial Nerves: No cranial nerve deficit (No gross abnormality). Psychiatric: Mood and Affect: Mood normal. Behavior: Behavior normal. Thought Content: Thought content normal. No orders of the defined types were placed in this encounter. Impression/Treatment Plan: Socorro Gonsales is a 28-year-old female presenting with left breast swelling and engorgement, in the setting of extensive previous workup for bilateral nipple discharge felt to be physiologic following ultrasound and MRI, likely significant underlying fibrocystic breast disease/change. -No surgical intervention indicated. Discussed findings on exam as well as correlation to complaints. I suspect that the majority of her complaints are related to normal physiologic change with fibrocystic breast in a young healthy female. We did perform bilateral ultrasound of the breast within the past year as well as an MRI for completion which were both negative. I do not feel that any additional imaging at this time is warranted. I encouraged the patient to continue to monitor her breast for these changes and educated that this will likely continue to evolve with time as the architecture of the breast changes as well as the density, especially with fibrocystic disease. I did discuss topical agents, NSAIDs, but I would forego any additional hormone modulating therapies given the patient's other ailments and gastroenterology needs at this time. Patient is agreeable and will call us in the future ongoing with any questions or concerns. Patient counseled on risks, benefits, and alternatives of treatment plan at length while in the office today. Patient states an understandingand willingness to proceed with plan. I spent 30 minutes total on the day of the visit obtaining history, reviewing imaging and laboratory results, performing a physical exam and providing patient education and counseling. Lenin De Los Santos MD 04/25/2024 4:41 PM documented in this encounter 04-25-2024 Note General Surgery History and Physical Lenin De Los Santos MD, MPH Patient ID: Socorro Gonsales [id number] 28 y.o. 1995 CHIEF COMPLAINT: Chief Complaint Patient presents with Follow-up Lump on chest LT side, last seen 2022 HPI: Socorro Gonsales is a 28 y.o. female who presents with left breast fullness, concern for left breast asymmetry. I have seen the patient multiple times in the past. I originally saw her with complaints of bilateral nipple discharge that was extensively evaluated with imaging and since resolved. She underwent extensive workup including MRI which did not demonstrate any findings. The patient does have dense breasts with suspected fibrocystic disease. She had similar complaints in the right breast previously. Ultrasound and MRI did not demonstrate abnormality. The complaints did subside. I then did evaluate her for some abdominal complaints and she has escalated her care through gastroenterology as well as now referrals through the [facility]. Regarding her acute complaint of left breast fullness and left breast asymmetry, she has noticed this now for about the past month or so. She denies any significant pain but she was just concerned primarily about the fullness appreciated. She feels that her left breast is more engorged and feels similar to how it was following breast-feeding. She has a history of hysterectomy. She feels that her left breast is enlarged in comparison to the right and she became concerned, requesting consultation and evaluation. Patient denies any nipple discharge, redness, swelling. She does state that occasionally the left breast feels warmer than the right breast. She states her fianc? is also evaluated and concurs with this thought. Regarding the patient's abdominal complaints, she continues with evaluation for gastroparesis and will be following closely with gastroenterology and the [facility] physicians. Past Medical History: Diagnosis Date Asthma 2001 Hiatal hernia with gastroesophageal reflux Pancreatitis 2019 ? accurate Past Surgical History: Procedure Laterality Date ABDOMINAL ADHESION SURGERY 2020 and 2021 APPENDECTOMY 2020 CHOLECYSTECTOMY 2019 COLONOSCOPY 2019 EXPLORATORY LAPAROTOMY 2018 KIDNEY SURGERY PARTIAL HYSTERECTOMY 2021 TUBAL LIGATION Medications Prior to Visit: Prior to Admission medications Medication Sig Start Date End Date Taking? Authorizing Provider Acetaminophen Extra Strength 500 MG tablet Take 1,000 mg by mouth every 6 hours as needed. 05/05/22 Yes Historical Provider, albuterol 108 (90 Base) MCG/ACT inhaler Inhale 2 puffs every 6 hours as needed. 08/17/20 Yes Historical Provider, albuterol 108 (90 Base) MCG/ACT inhaler inhale 2 puffs by mouth and INTO THE LUNGS every 6 hours if neede... (REFER TO PRESCRIPTION NOTES). 06/03/22 Yes Historical Provider, dicyclomine (Bentyl) 10 MG capsule Take 2 capsules (20 mg) by mouth in the morning and 2 capsules (20 mg) at noon and 2 capsules (20 mg) in the evening and 2 capsules (20 mg) before bedtime. 06/08/23 06/07/24 Yes eLnin De Los Santos MD pantoprazole (ProtoNix) 40 MG EC tablet Take 1 tablet (40 mg) by mouth every morning (before breakfast). Do not crush, chew, or split. 06/08/23 10/06/23 Yes Lenin De Los Santos MD psyllium (Metamucil) 58.6 % packet Take 1 packet (3.4 g of fiber) by mouth daily. Mix and drink with at least 8 ounces of water or juice. 06/08/23 07/15/23 Yes Lenin De Los Santos MD Allergies: Keflex [cephalexin], Morphine, Ondansetron, Seasonal ic [octacosanol], Codeine, Gabapentin, and Latex Social History Socioeconomic History Marital status: Significant Other Tobacco Use Smoking status: Former Types: Cigarettes Smokeless tobacco: Former Tobacco comments: Vape Use Vaping Use Vaping status: Every Day Substances: Nicotine Substance and Sexual Activity Alcohol use: Yes Comment: social Drug use: Never Social History Narrative Single, has one son and one dtr. Engage to Mukesh. 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 Overall Financial Resource Strain (CARDIA) Difficulty of Paying Living Expenses: Not hard at all Food Insecurity: No Food Insecurity (01/13/2021) Received from [facility] Hunger Vital Sign Worried About Running Out of Food in the Last Year: Never true Ran Out of Food in the Last Year: Never true Transportation Needs: No Transportation Needs (01/13/2021) Received from [facility] PRAPARE - Transportation Lack of Transportation (Medical): No Lack of Transportation (Non-Medical): No Physical Activity: Sufficiently Active (02/16/2019) (more content not included)... [facility] 04-20-2024 Telephone encounter Note Name of Caller: Socorro Contact Reason for Appointment: Patient requesting to schedule appointment with Dr De Los Santos. Patient was last seen by Dr De Los Santos on 07/15/23. Patient stated that there is a new lump in her breast and it is increasingly harder. Patient asking for a Wednesday or Wednesday appointment. Please call patient back to advise. Office Name: General Surgery Medication Refills need, if any: N/A Medication Name: N/A [facility] Miscellaneous Notes Name of Caller: Socorro Contact Reason for Appointment: Patient requesting to schedule appointment with Dr De Los Santos. Patient was last seen by Dr De Los Santos on 07/15/23. Patient stated that there is a new lump in her breast and it is increasingly harder. Patient asking for a Wednesday or Wednesday appointment. Please call patient back to advise. Office Name: General Surgery Medication Refills need, if any: N/A Medication Name: N/A documented in this encounter 03-16-2024 Telephone encounter Note EMPTIES: Me, surgery, behavioral and nutrition, egg is in [facility] 03-16-2024 Miscellaneous Notes EMPTIES: Me, surgery, behavioral and nutrition, egg is in Gastric Emptying Study?Yes Care Everywhere Has the patient had a Smart Pill? No When was your last EGD? 2020 Has the patient had Gastric Bypass? No Has the patient had a Gastric Sleeve? No Has the patient had a Manuel or Hiatal Hernia Repair? No All done at Care: Gallbladder: 2020 Appendix: 2020 Adhesion removal:2020 and 2021 Hysterectomy: 2021 Has the patient had POP/Pyloroplasty? No Is the patient currently on TPN? No Does the patient have a G/J Tube? No Referring Provider: Scooter Gunderson MD documented in this encounter [facility] 03-16-2024 Telephone encounter Note Gastric Emptying Study?Yes Care Everywhere Has the patient had a Smart Pill? No When was your last EGD? 2020 Has the patient had Gastric Bypass? No Has the patient had a Gastric Sleeve? No Has the patient had a Manuel or Hiatal Hernia Repair? No All done at Care: Gallbladder: 2019 Appendix: 2020 Adhesion removal:2020 and 2021 Hysterectomy: 2021 Has the patient had POP/Pyloroplasty? No Is the patient currently on TPN? No Does the patient have a G/J Tube? No Referring Provider: Scooter Gunderson MD [facility] 03-13-2024 Note HNO ID: [id number] Author: RENATE BLANDON APRN.ENGINE DISPATCHER Service: ? Author Type: Nurse Practitioner Type: Progress Notes Filed: 03/13/2024 17:09 Note Text: This note was created using [employer]. Subjective Socorro Gonsales is a 28 year old female. 28 year old female with PMH asthma, anemia, and anxiety presents for illness. Acute onset of symptoms one week ago +sore throat +bilateral ear pain +nasal congestion + cough Seen here on 03/09/24 for similar Diagnosed with viral infection. RX Tessalon Perles Endorses that symptoms are worsening. +history of tobacco usage The history is provided by the patient. No agriculture scientist was used. Ear Pain This is a new problem. The current episode started in the past 7 days. The problem occurs constantly. The problem has been gradually worsening. Associated symptoms include congestion, coughing, fatigue, headaches, a sore throat and swollen glands. Pertinent negatives include no abdominal pain, anorexia, arthralgias, change in bowel habit, chest pain, chills, diaphoresis, fever, joint swelling, myalgias, nausea, neck pain, numbness, rash, urinary symptoms, vertigo, visual change, vomiting or weakness. Nothing aggravates the symptoms. Treatments tried: Tessalon Perles. The treatment provided no relief. PAST MEDICAL HISTORY No date: Anemia No date: anxiety No date: Asthma PAST SURGICAL HISTORY 04/28/2018: LAPAROSCOPY W/RMVL ADNEXAL STRUCTURES; Bilateral Comment: l/s bilateral salpingectomy No date: PAST SURGICAL HISTORY OF Comment: wisdom teeth 03/2020: PAST SURGICAL HISTORY OF Comment: exploratory laparoscopy 2021: VAGINAL HYSTERECTOMY ALLERGIES Codeine, Gabapentin, Latex, Seasonal Allergies, and Zofran [Ondansetron] MEDICATIONS benzonatate (TESSALON PERLES) 100 mg capsule Take 1 capsule by mouth three times a day as needed for cough. fluticasone (FLONASE) 50 mcg/actuation nasal spray Use 2 Sprays in each nostril once daily. Rinse mouth after use. pantoprazole DR (PROTONIX) 40 mg tablet Take 40 mg by mouth once daily. albuterol HFA (PROVENTIL HFA, VENTOLIN HFA) 90 mcg/actuation inhaler Inhale 2 Puffs as instructed every 6 hours as needed for wheezing/shortness of breath. amoxicillin-clavulanate potassium (AUGMENTIN) 875-125 mg per tablet Take 1 tablet by mouth two times a day for 7 days. predniSONE (DELTASONE) 10 mg tablet Take 4 tabs daily for 3 days, then 2 tabs daily for 3 days, then 1 tab daily for 3 days with food. Hegzonzttvhczpx-Ixinlgkfa-BW (BROMFED DM) 2-30-10 mg/5 mL syrup Take 10 mL by mouth four times a day as needed. (Patient not taking: Reported on 11/21/2023) Vqbfhbmhxsgnzli-Rzrdzozkf-WP (BROMFED DM) 2-30-10 mg/5 mL syrup Take 10 mL by mouth four times a day as needed. (Patient not taking: Reported on 10/19/2023) fluticasone (FLONASE) 50 mcg/actuation nasal spray Use 2 Sprays in each nostril once daily. Rinse mouth after use. (Patient not taking: Reported on 10/19/2023) FAMILY HISTORY Problem Relation Age of Onset Heart Mother Seizures Mother Stroke Mother Multiple Sclerosis Mother Psychiatry Sister Manic Depression Hypertension Maternal Grandfather Breast Cancer Maternal Aunt Hypertension Maternal Uncle Social History Tobacco Use Smoking status: Former Years: 3 Types: Cigarettes Smokeless tobacco: Never Substance Use Topics Alcohol use: Yes Comment: rarely Drug use: No Review of Systems Constitutional: Positive for fatigue. Negative for chills, diaphoresis and fever. HENT: Positive for congestion, ear pain, postnasal drip, rhinorrhea, sinus pressure, sinus pain and sore throat. Negative for ear discharge. Eyes: Negative for photophobia, pain, discharge, redness and itching. Respiratory: Positive for cough. Negative for apnea, choking and chest tightness. Cardiovascular: Negative for chest pain. Gastrointestinal: Negative for abdominal pain, anorexia, change in bowel habit, nausea and vomiting. Musculoskeletal: Negative for arthralgias, joint swelling, myalgias and neck pain. Skin: Negative for color change, pallor and rash. Allergic/Immunologic: Positive for environmental allergies. Negative for food allergies and immunocompromised state. Neurological: Positive for headaches. Negative for dizziness, vertigo, facial asymmetry, weakness and numbness. Hematological: Negative for adenopathy. Does not bruise/bleed easily. Psychiatric/Behavioral: Negative for agitation and behavioral problems. Objective BP 102/64 Pulse 74 Temp 37.1 ?C (98.8 ?F) (Tympanic) Resp 18 Wt 67.9 kg (149 lb 11.1 oz) LMP 03/25/2022 SpO2 100% BMI 24.91 kg/m? Physical Exam Vitals and nursing note reviewed. Constitutional: General: She is not in acute distress. Appearance: Normal appearance. She is normal weight. She is not ill-appearing, toxic-appearing or diaphoretic. HENT: Head: Normocephalic and atraumatic. Comments: +frontal sinus pressure +maxil (more content not included)... [facility] 03-13-2024 History of Present illness Narrative This note was created using [employer]. Subjective Socorro Gonsales is a 28 year old female. 28 year old female with PMH asthma, anemia, and anxiety presents for illness. Acute onset of symptoms one week ago +sore throat +bilateral ear pain +nasal congestion + cough Seen here on 03/09/24 for similar Diagnosed with viral infection. RX Martita Nuñez Endorses that symptoms are worsening. +history of tobacco usage The history is provided by the patient. No agriculture scientist was used. Ear Pain This is a new problem. The current episode started in the past 7 days. The problem occurs constantly. The problem has been gradually worsening. Associated symptoms include congestion, coughing, fatigue, headaches, a sore throat and swollen glands. Pertinent negatives include no abdominal pain, anorexia, arthralgias, change in bowel habit, chest pain, chills, diaphoresis, fever, joint swelling, myalgias, nausea, neck pain, numbness, rash, urinary symptoms, vertigo, visual change, vomiting or weakness. Nothing aggravates the symptoms. Treatments tried: Celinaon Perles. The treatment provided no relief. PAST MEDICAL HISTORY No date: Anemia No date: anxiety No date: Asthma PAST SURGICAL HISTORY 04/28/2018: LAPAROSCOPY W/RMVL ADNEXAL STRUCTURES; Bilateral Comment: l/s bilateral salpingectomy No date: PAST SURGICAL HISTORY OF Comment: wisdom teeth 03/2020: PAST SURGICAL HISTORY OF Comment: exploratory laparoscopy 2021: VAGINAL HYSTERECTOMY ALLERGIES Codeine, Gabapentin, Latex, Seasonal Allergies, and Zofran [Ondansetron] MEDICATIONS benzonatate (TESSALON PERLES) 100 mg capsule Take 1 capsule by mouth three times a day as needed for cough. fluticasone (FLONASE) 50 mcg/actuation nasal spray Use 2 Sprays in each nostril once daily. Rinse mouth after use. pantoprazole DR (PROTONIX) 40 mg tablet Take 40 mg by mouth once daily. albuterol HFA (PROVENTIL HFA, VENTOLIN HFA) 90 mcg/actuation inhaler Inhale 2 Puffs as instructed every 6 hours as needed for wheezing/shortness of breath. amoxicillin-clavulanate potassium (AUGMENTIN) 875-125 mg per tablet Take 1 tablet by mouth two times a day for 7 days. predniSONE (DELTASONE) 10 mg tablet Take 4 tabs daily for 3 days, then 2 tabs daily for 3 days, then 1 tab daily for 3 days with food. Tykdoqsagwgcmff-Lideysopt-BL (BROMFED DM) 2-30-10 mg/5 mL syrup Take 10 mL by mouth four times a day as needed. (Patient not taking: Reported on 11/21/2023) Ekjlrkxwnvvldrf-Uwlmmvztu-WX (BROMFED DM) 2-30-10 mg/5 mL syrup Take 10 mL by mouth four times a day as needed. (Patient not taking: Reported on 10/19/2023) fluticasone (FLONASE) 50 mcg/actuation nasal spray Use 2 Sprays in each nostril once daily. Rinse mouth after use. (Patient not taking: Reported on 10/19/2023) FAMILY HISTORY Problem Relation Age of Onset Heart Mother Seizures Mother Stroke Mother Multiple Sclerosis Mother Psychiatry Sister Manic Depression Hypertension Maternal Grandfather Breast Cancer Maternal Aunt Hypertension Maternal Uncle Social History Tobacco Use Smoking status: Former Years: 3 Types: Cigarettes Smokeless tobacco: Never Substance Use Topics Alcohol use: Yes Comment: rarely Drug use: No Review of Systems Constitutional: Positive for fatigue. Negative for chills, diaphoresis and fever. HENT: Positive for congestion, ear pain, postnasal drip, rhinorrhea, sinus pressure, sinus pain and sore throat. Negative for ear discharge. Eyes: Negative for photophobia, pain, discharge, redness and itching. Respiratory: Positive for cough. Negative for apnea, choking and chest tightness. Cardiovascular: Negative for chest pain. Gastrointestinal: Negative for abdominal pain, anorexia, change in bowel habit, nausea and vomiting. Musculoskeletal: Negative for arthralgias, joint swelling, myalgias and neck pain. Skin: Negative for color change, pallor and rash. Allergic/Immunologic: Positive for environmental allergies. Negative for food allergies and immunocompromised state. Neurological: Positive for headaches. Negative for dizziness, vertigo, facial asymmetry, weakness and numbness. Hematological: Negative for adenopathy. Does not bruise/bleed easily. Psychiatric/Behavioral: Negative for agitation and behavioral problems. Objective BP 102/64 Pulse 74 Temp 37.1 C (98.8 F) (Tympanic) Resp 18 Wt 67.9 kg (149 lb 11.1 oz) LMP 03/25/2022 SpO2 100% BMI 24.91 kg/m Physical Exam Vitals and nursing note reviewed. Constitutional: General: She is not in acute distress. Appearance: Normal appearance. She is normal weight. She is not ill-appearing, toxic-appearing or diaphoretic. HENT: Head: Normocephalic and atraumatic. Comments: +frontal sinus pressure +maxillary sinus pressure Right Ear: Ear canal and external ear normal. Left Ear: Ear canal and external ear normal. Ears: Comments: Left TM erythematous and bulging Nose: Congestion present. No rhinorrhea. Mouth/Throat: Mouth: Mucous membranes are moist. Pharynx: Posterior oropharyngeal erythema present. No oropharyngeal exudate. Eyes: General: Right eye: No discharge. Left eye: No discharge. Extraocular Movements: Extraocular movements intact. Conjunctiva/sclera: Conjunctivae normal. Pupils: Pupils are equal, round, and reactive to light. Cardiovascular: Rate and Rhythm: Normal rate and regular rhythm. Pulses: Normal pulses. Heart sounds: Normal heart sounds. No murmur heard. No friction rub. Pulmonary: Effort: Pulmonary effort is normal. No respiratory distress. Breath sounds: Normal breath sounds. No stridor. No wheezing, rhonchi or rales. Chest: Chest wall: No tenderness. Abdominal: General: Abdomen is flat. There is no distension. Palpations: Abdomen is soft. There is no mass. Tenderness: There is no abdominal tenderness. There is no right CVA tenderness, left CVA tenderness, guarding or rebound. Hernia: No hernia is present. Musculoskeletal: General: No swelling, tenderness, deformity or signs of injury. Normal range of motion. Cervical back: Normal range of motion and neck supple. No rigidity. Right lower leg: No edema. Left lower leg: No edema. Lymphadenopathy: Cervical: Cervical adenopathy present. Skin: General: Skin is warm and dry. Coloration: Skin is not jaundiced or pale. Findings: No bruising, erythema, lesion or rash. Neurological: General: No focal deficit present. Mental Status: She is alert and oriented to person, place, and time. Cranial Nerves: No cranial nerve deficit. Sensory: No sensory deficit. Motor: No weakness. Coordination: Coordination normal. Gait: Gait normal. Psychiatric: Mood and Affect: Mood normal. Behavior: Behavior normal. Thought Content: Thought content normal. Judgment: Judgment normal. Assessment and Plan ASSESSMENT/PLAN: 1. Rhinosinusitis - ICD9: 473.9, ICD10: J32.9 (primary diagnosis) - Will begin treatment with as per antibiotic as written, see orders - The patient should also be given OTC cough and cold meds as needed, warm salt water gargles, throat lozenges and/or OTC throat spray as needed, and nasal saline gtts and suction prn for the first 5-7 days of treatment. - Supportive care with plenty of fluids, rest, and analgesia prn. - Follow up in 3-5 days if symptoms persist or worsen. 2. Acute otitis media, left - ICD9: 382.9, ICD10: H66.92 - Will begin treatment with as per antibiotic as written, see orders - The patient should also be given OTC cough and cold meds as needed, warm salt water gargles, throat lozenges and/or OTC throat spray as needed, and nasal saline gtts and suction prn for the first 5-7 days of treatment. - Supportive care with plenty of fluids, rest, and analgesia prn. - Follow up in 3-5 days if symptoms persist or worsen. Renate Blandon APRN.JORDANA documented in this encounter [facility] 03-09-2024 Note HNO ID: [id number] Author: JAGUAR PERSON APRN.CNP Service: ? Author Type: Nurse Practitioner Type: Progress Notes Filed: 03/09/2024 14:20 Note Text: Subjective HPI Nontoxic-appearing female presents to urgent care with chief complaint of upper respiratory tract like infection. Duration of symptoms 2 days. Associated symptoms sore throat, body aches, nasal congestion, nasal discharge and nonproductive cough. Patient denies the use of any keyx-jfu-jzdwuoq medications or home remedies for symptom management. Patient states recent sick contacts with similar signs and symptoms. Patient denies any productive cough, fever, chest pain, shortness of breath, pleuritic pain, rash, abdominal pain, nausea, vomiting or change in bowel or bladder habit. Past medical history prescription medications allergies reviewed. Denies chance of . Is not breast-feeding. .Patient presents with: Nasal Congestion: ST, [place], bodyaches, runny nose x2 days PAST MEDICAL HISTORY No date: Anemia No date: anxiety No date: Asthma PAST SURGICAL HISTORY 04/28/2018: LAPAROSCOPY W/RMVL ADNEXAL STRUCTURES; Bilateral Comment: l/s bilateral salpingectomy No date: PAST SURGICAL HISTORY OF Comment: wisdom teeth 03/2020: PAST SURGICAL HISTORY OF Comment: exploratory laparoscopy 2021: VAGINAL HYSTERECTOMY ALLERGIES Codeine, Gabapentin, Latex, Seasonal Allergies, and Zofran [Ondansetron] MEDICATIONS fluticasone (FLONASE) 50 mcg/actuation nasal spray Use 2 Sprays in each nostril once daily. Rinse mouth after use. pantoprazole DR (PROTONIX) 40 mg tablet Take 40 mg by mouth once daily. albuterol HFA (PROVENTIL HFA, VENTOLIN HFA) 90 mcg/actuation inhaler Inhale 2 Puffs as instructed every 6 hours as needed for wheezing/shortness of breath. Fkwgjvwhefkjfej-Rzdxuynbx-CS (BROMFED DM) 2-30-10 mg/5 mL syrup Take 10 mL by mouth four times a day as needed. (Patient not taking: Reported on 11/21/2023) Qnqxdlhzigzrgpf-Dzawxemuh-BQ (BROMFED DM) 2-30-10 mg/5 mL syrup Take 10 mL by mouth four times a day as needed. (Patient not taking: Reported on 10/19/2023) fluticasone (FLONASE) 50 mcg/actuation nasal spray Use 2 Sprays in each nostril once daily. Rinse mouth after use. (Patient not taking: Reported on 10/19/2023) FAMILY HISTORY Problem Relation Age of Onset Heart Mother Seizures Mother Stroke Mother Multiple Sclerosis Mother Psychiatry Sister Manic Depression Hypertension Maternal Grandfather Breast Cancer Maternal Aunt Hypertension Maternal Uncle Social History Tobacco Use Smoking status: Former Years: 3 Types: Cigarettes Smokeless tobacco: Never Substance Use Topics Alcohol use: Yes Comment: rarely Drug use: No BP 112/77 Pulse 73 Temp 36.8 ?C (98.3 ?F) Resp 18 Wt 69.5 kg (153 lb 3.5 oz) LMP 03/25/2022 SpO2 100% BMI 25.50 kg/m? Review of Systems Constitutional: Positive for malaise/fatigue. Negative for chills and fever. HENT: Positive for congestion and sore throat. Negative for ear discharge, ear pain and sinus pain. Eyes: Negative for blurred vision, pain, discharge and redness. Respiratory: Positive for cough. Negative for hemoptysis, sputum production, shortness of breath, wheezing and stridor. Cardiovascular: Negative for chest pain. Gastrointestinal: Negative for abdominal pain, diarrhea, nausea and vomiting. Musculoskeletal: Positive for myalgias. Skin: Negative for itching and rash. Neurological: Positive for headaches. Negative for dizziness. Objective Physical Exam Constitutional: General: She is not in acute distress. Appearance: She is not diaphoretic. HENT: Head: Normocephalic. Jaw: No trismus, tenderness, swelling or pain on movement. Nose: Congestion present. Mouth/Throat: Mouth: Mucous membranes are moist. Pharynx: Oropharynx is clear. Uvula midline. No pharyngeal swelling, oropharyngeal exudate, posterior oropharyngeal erythema or uvula swelling. Eyes: Conjunctiva/sclera: Conjunctivae normal. Pupils: Pupils are equal, round, and reactive to light. Cardiovascular: Rate and Rhythm: Normal rate and regular rhythm. Heart sounds: Normal heart sounds. Pulmonary: Effort: Pulmonary effort is normal. No tachypnea, accessory muscle usage or respiratory distress. Breath sounds: Normal breath sounds. No stridor. No wheezing, rhonchi or rales. Abdominal: General: There is no distension. Palpations: Abdomen is soft. Tenderness: There is no abdominal tenderness. There is no guarding or rebound. Musculoskeletal: Cervical back: Normal range of motion and neck supple. No edema, erythema, rigidity or tenderness. No pain with movement. Normal range of motion. Lymphadenopathy: Cervical: No cervical adenopathy. Skin: General: Skin is warm and dry. Neurological: Mental Status: She is alert and oriented to person, place, and time. ASSESSMENT/PLAN: 1. Viral illness - ICD9: 079.99, ICD10: B34.9 - Discussed vir (more content not included)... [facility] 03-09-2024 History of Present illness Narrative Subjective HPI Nontoxic-appearing female presents to urgent care with chief complaint of upper respiratory tract like infection. Duration of symptoms 2 days. Associated symptoms sore throat, body aches, nasal congestion, nasal discharge and nonproductive cough. Patient denies the use of any fayi-def-zibmntx medications or home remedies for symptom management. Patient states recent sick contacts with similar signs and symptoms. Patient denies any productive cough, fever, chest pain, shortness of breath, pleuritic pain, rash, abdominal pain, nausea, vomiting or change in bowel or bladder habit. Past medical history prescription medications allergies reviewed. Denies chance of . Is not breast-feeding. .Patient presents with: Nasal Congestion: ST, [place], bodyaches, runny nose x2 days PAST MEDICAL HISTORY No date: Anemia No date: anxiety No date: Asthma PAST SURGICAL HISTORY 04/28/2018: LAPAROSCOPY W/RMVL ADNEXAL STRUCTURES; Bilateral Comment: l/s bilateral salpingectomy No date: PAST SURGICAL HISTORY OF Comment: wisdom teeth 03/2020: PAST SURGICAL HISTORY OF Comment: exploratory laparoscopy 2021: VAGINAL HYSTERECTOMY ALLERGIES Codeine, Gabapentin, Latex, Seasonal Allergies, and Zofran [Ondansetron] MEDICATIONS fluticasone (FLONASE) 50 mcg/actuation nasal spray Use 2 Sprays in each nostril once daily. Rinse mouth after use. pantoprazole DR (PROTONIX) 40 mg tablet Take 40 mg by mouth once daily. albuterol HFA (PROVENTIL HFA, VENTOLIN HFA) 90 mcg/actuation inhaler Inhale 2 Puffs as instructed every 6 hours as needed for wheezing/shortness of breath. Bdocexcrobkkiaq-Thighkiui-UL (BROMFED DM) 2-30-10 mg/5 mL syrup Take 10 mL by mouth four times a day as needed. (Patient not taking: Reported on 11/21/2023) Avpoaxqognvdmbo-Pqasxjdit-IQ (BROMFED DM) 2-30-10 mg/5 mL syrup Take 10 mL by mouth four times a day as needed. (Patient not taking: Reported on 10/19/2023) fluticasone (FLONASE) 50 mcg/actuation nasal spray Use 2 Sprays in each nostril once daily. Rinse mouth after use. (Patient not taking: Reported on 10/19/2023) FAMILY HISTORY Problem Relation Age of Onset Heart Mother Seizures Mother Stroke Mother Multiple Sclerosis Mother Psychiatry Sister Manic Depression Hypertension Maternal Grandfather Breast Cancer Maternal Aunt Hypertension Maternal Uncle Social History Tobacco Use Smoking status: Former Years: 3 Types: Cigarettes Smokeless tobacco: Never Substance Use Topics Alcohol use: Yes Comment: rarely Drug use: No BP 112/77 Pulse 73 Temp 36.8 C (98.3 F) Resp 18 Wt 69.5 kg (153 lb 3.5 oz) LMP 03/25/2022 SpO2 100% BMI 25.50 kg/m Review of Systems Constitutional: Positive for malaise/fatigue. Negative for chills and fever. HENT: Positive for congestion and sore throat. Negative for ear discharge, ear pain and sinus pain. Eyes: Negative for blurred vision, pain, discharge and redness. Respiratory: Positive for cough. Negative for hemoptysis, sputum production, shortness of breath, wheezing and stridor. Cardiovascular: Negative for chest pain. Gastrointestinal: Negative for abdominal pain, diarrhea, nausea and vomiting. Musculoskeletal: Positive for myalgias. Skin: Negative for itching and rash. Neurological: Positive for headaches. Negative for dizziness. Objective Physical Exam Constitutional: General: She is not in acute distress. Appearance: She is not diaphoretic. HENT: Head: Normocephalic. Jaw: No trismus, tenderness, swelling or pain on movement. Nose: Congestion present. Mouth/Throat: Mouth: Mucous membranes are moist. Pharynx: Oropharynx is clear. Uvula midline. No pharyngeal swelling, oropharyngeal exudate, posterior oropharyngeal erythema or uvula swelling. Eyes: Conjunctiva/sclera: Conjunctivae normal. Pupils: Pupils are equal, round, and reactive to light. Cardiovascular: Rate and Rhythm: Normal rate and regular rhythm. Heart sounds: Normal heart sounds. Pulmonary: Effort: Pulmonary effort is normal. No tachypnea, accessory muscle usage or respiratory distress. Breath sounds: Normal breath sounds. No stridor. No wheezing, rhonchi or rales. Abdominal: General: There is no distension. Palpations: Abdomen is soft. Tenderness: There is no abdominal tenderness. There is no guarding or rebound. Musculoskeletal: Cervical back: Normal range of motion and neck supple. No edema, erythema, rigidity or tenderness. No pain with movement. Normal range of motion. Lymphadenopathy: Cervical: No cervical adenopathy. Skin: General: Skin is warm and dry. Neurological: Mental Status: She is alert and oriented to person, place, and time. ASSESSMENT/PLAN: 1. Viral illness - ICD9: 079.99, ICD10: B34.9 - Discussed viral etiology and rationale for treatment. - Symptomatic treatment with prn analgesia - Supportive care with fluids and rest No evidence of bacterial infection. patient was educated on supportive therapies. Patient will follow up with primary care provider as needed. Patient was instructed to immediately proceed to emergency room for any new, worsening, or symptoms lasting longer than anticipated. The patient's clinical presentation is otherwise unremarkable at this time. Based on exam and clinical finding, the patient is stable for discharge. Plan of care was discussed with patient. Patient verbalizes understanding and agrees to plan of care. This note was generated using [employer] software. It may contain errors in wording, punctuation, or spelling. 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 [facility] [address] [facility] [address] Dept: [phone] Dept Loc: [phone] Visit type: Established Reason for Visit: Follow-up (Discuss GES results.) Assessment and Plan Problem List Items Addressed This Visit Gastroparesis Other Visit Diagnoses Nausea and vomiting, unspecified vomiting type - Primary Chronic abdominal pain History of esophagogastroduodenoscopy (EGD) History of colonoscopy -Symptoms are acute on chronic. 4 hour GES shows delayed motility, unclear etiology. -Will refer to Dr. Gonzáles for further evaluation of gastroparesis in 28 y.o. female. -Continue Gastroparesis diet, has seen dietitian. -Symptoms have been acute on chronic, states these are similar to what she was experiencing starting in 2019 and has been evaluated with EGD, colonoscopy, gastric emptying study, CT. EGD unremarkable. Colonoscopy with probable microscopic colitis. Previous GES shows borderline slow gastric emptying. -Continue Pantoprazole 40 mg daily. -Use Prevalite. -She is also s/p multiple abdominal surgery with lysis of adhesions. This may be a component of her abdominal pain. -Follow up in 3 months. No follow-ups on file. Advised patient to call office with new or worsening symptoms, questions, or concerns. Patient verbalized understanding and agreement of plan. Richardson Quintanilla is a 28 y.o. female who presents as a follow up. She was referred by Dr. Jean Odonnell DO regarding Abdominal pain, epigastric. She is new to provider but has been evaluated in the office before. Last office visit was 05/02/2021 with Naty Moran PA-C regarding generalized abdominal pain; nausea and vomiting; Lymphocytic colitis. HPI Has had acute chronic epigastric pain since late 2018 associated with nausea and emesis. Since seeing dietitian has had some better symptom control. S/p 05/04/2022 with Total Laparoscopic Hysterectomy, Cystoscopy. S/p Laparoscopy lysis of adhesions and laparoscopic appendectomy 03/26/2021. S/p cholecystectomy 2018-. S/p tubal ligation 2017. S/p surgeries has felt better, but since 05/2023 has recurrence of abdominal pain. This occurs postprandially. Can be made worse with movement, such as bending over or exercising. Has been nauseous with emesis. Last episode was yesterday. Denies hematemesis or coffee ground emesis. This is similar to last occurrence evaluated by Naty. Is taking pantoprazole 40 mg daily. Has had chronic lower abdominal pain since 2019. Has a BM once a day. Denies constipation or diarrhea. Denies hematochezia or dark stools. Weight is fluctuating, stable. EtOH: None. Tobacco: Vape. NSAIDs: Rarely PRN. Illicit drugs: None. Family History of Colon Cancer: None. Prior EGD/Colonoscopy: EGD 2020. Colonoscopy 2019. Prior Abdominal Surgery: Multiple as in HPI. Review of Systems Constitutional: Negative for appetite change, fatigue, fever and unexpected weight change. HENT: Negative for trouble swallowing. Respiratory: Negative for cough, choking and shortness of breath. Cardiovascular: Negative for chest pain. Gastrointestinal: Positive for abdominal pain, constipation, diarrhea, nausea and vomiting. Negative for abdominal distention, anal bleeding, blood in stool and rectal pain. Skin: Negative for color change, pallor and rash. Allergies Allergen Reactions Keflex [Cephalexin] Nausea And Vomiting Morphine Ondansetron Itching Itching and redness in arm when given Zofran IV Seasonal Ic [Octacosanol] Codeine Itching and Rash Gabapentin Other [place] like Heart was racing [place] like Heart was racing Latex Itching, Rash and Hives Other reaction(s): Hives Outpatient Medications Prior to Visit Medication Sig Dispense Refill Acetaminophen Extra Strength 500 MG tablet Take 1,000 mg by mouth every 6 hours as needed. albuterol 108 (90 Base) MCG/ACT inhaler Inhale 2 puffs every 6 hours as needed. cholestyramine light (Prevalite) 4 g packet Take 1 packet (4 g) by mouth 2 times daily. 60 packet 11 fluticasone (Flonase) 50 MCG/ACT nasal spray 2 sprays in the morning. pantoprazole (ProtoNix) 40 MG EC tablet Take 1 tablet (40 mg) by mouth every morning (before breakfast). Do not crush, chew, or split. 90 tablet 1 No facility-administered medications prior to visit. Patient Active Problem List Diagnosis Date Noted Date Diagnosed Hiatal hernia with gastroesophageal reflux Priority: Medium Gastroparesis 11/29/2023 Priority: Medium Chronic constipation 07/27/2019 YVONNE (generalized anxiety disorder) 07/27/2019 PFO (patent foramen ovale) 05/14/2019 Asthma 03/05/2017 Allergic rhinitis 03/05/2017 Social History Tobacco Use Smoking status: Former Types: Cigarettes Smokeless tobacco: Former Tobacco comments: Vape Use Substance Use Topics Alcohol use: Yes Comment: social Family History Problem Relation Name Age of Onset Other Mother Ramya mcmullen Good pastures sb 07/31 fall with ICH, on Dialysis age 48 No Known Problems Father no contact with No Known Problems Sister No Known Problems Brother Objective BP 106/72 Pulse 89 Temp 36.3 C (97.4 F) Ht 5' 5 (1.651 m) Wt 150 lb (68 kg) SpO2 100% BMI 24.96 kg/m Physical Exam Vitals reviewed. Constitutional: General: She is not in acute distress. Appearance: Normal appearance. She is not ill-appearing. Pulmonary: Effort: Pulmonary effort is normal. Breath sounds: Normal breath sounds. Abdominal: General: Bowel sounds are normal. There is no distension. Palpations: Abdomen is soft. There is no mass. Tenderness: There is abdominal tenderness (mild epigastric tenderness with deep palpation.). There is no guarding or rebound. Hernia: No hernia is present. Neurological: General: No focal deficit present. Mental Status: She is alert and oriented to person, place, and time. Psychiatric: Mood and Affect: Mood normal. Behavior: Behavior normal. Data Reviewed and Summarized Labs: Lab Results Component Value Date WBC 6.5 02/16/2024 HGB 12.8 02/16/2024 HCT 36.4 02/16/2024 PLT 245 02/16/2024 CHOL 126 07/25/2019 TRIG 109 07/25/2019 HDL 41 07/25/2019 ALT 13 02/16/2024 AST 23 02/16/2024 NA 137 02/16/2024 K 3.9 02/16/2024 CL 108 (H) 02/16/2024 CREATININE 0.61 02/16/2024 BUN 6 (L) 02/16/2024 CO2 21 (L) 02/16/2024 INR 1.0 02/20/2020 Lab Results Component Value Date WBC 6.5 02/16/2024 HGB 12.8 02/16/2024 HCT 36.4 02/16/2024 MCV 88.6 02/16/2024 PLT 245 02/16/2024 Chemistry Lab Results Component Value Date/Time NA 137 02/16/2024 1710 K 3.9 02/16/2024 1710 CL 108 (H) 02/16/2024 1710 CO2 21 (L) 02/16/2024 1710 CO2 23 09/15/2022 1119 BUN 6 (L) 02/16/2024 1710 BUN 8 09/15/2022 1119 CREATININE 0.61 02/16/2024 1710 CREATININE 0.75 09/15/2022 1119 Lab Results Component Value Date/Time CALCIUM 9.2 02/16/2024 1710 CALCIUM 9.9 09/15/2022 1119 ALKPHOS 40 02/16/2024 1710 ALKPHOS 48 09/15/2022 1119 AST 23 02/16/2024 1710 AST 13 09/15/2022 1119 ALT 13 02/16/2024 1710 ALT 9 09/15/2022 1119 BILITOT 0.5 02/16/2024 1710 BILITOT 0.5 09/15/2022 1119 Lab Results Component Value Date LIPASE 222 02/16/2024 No results found for: TSH Imaging/Testing: NM gastric emptying solid 03/02/2024 FINDINGS: At one hour, there is 85 percent of original activity within the stomach (normal between 30-90% retention). At two hours after ingestion, 61 percent of original activity remains within the stomach (normal 60% or less). At four hours after ingestion, 19 percent of original activity remains within the stomach (normal 10 percent or less). IMPRESSION: Abnormally delayed gastric emptying following solid meal. CT abdomen pelvis wo contrast 02/16/2024 FINDINGS: Evaluation of solid organs is limited by lack of contrast administration. Chest base: The lung bases are clear. Liver/Biliary system: No significant abnormality. Cholecystectomy Spleen: Not enlarged. Pancreas: No significant abnormality. Adrenal glands: No significant abnormality. Kidneys: No hydronephrosis or renal calculi are seen. Bowel: The bowel is of normal caliber throughout without evidence of wall thickening or obstruction. Pericecal postsurgical changes suggestive of appendectomy. Mesentery/Intraperitoneum: Mild free fluid in the pelvis, likely physiologic. No free intraperitoneal air. Lymph nodes: No lymphadenopathy Vasculature: The abdominal aorta is normal in caliber. Pelvic organs: No masses or other significant abnormalities seen. Soft tissues and Osseous structures: No evidence of fracture. No suspicious osseous lesions. Hypodense fluid collection along the deep aspect of the iliopsoas muscles measuring up to 1.7 x 1.6 x 5 cm. IMPRESSION: Fluid-filled right iliopsoas bursa suggestive of bursitis. FL upper GI w KUB 12/02/2023 FINDINGS: Barium and air are administered. The esophagus is studied in the upright as well as the horizontal positions. The esophagus is normal in course and caliber. There is a small hiatal hernia without spontaneous gastroesophageal reflux. Barium flows freely from the esophagus into the stomach. There is retained food debris in the stomach which can obscure small pathology. The visualized stomach and duodenum show normal mucosal patterns, with no discrete ulcer or mass. The visualized proximal jejunum is unremarkable. IMPRESSION: Small hiatal hernia without spontaneous gastroesophageal reflux. Retained food debris within stomach. Consider gastric emptying study. CT abdomen pelvis w contrast 05/17/2023 Reason For Exam: RLQ abdominal pain (Age >= 14y) CT abdomen and pelvis with contrast HISTORY: Right lower quadrant pain Protocol: 3 mm axial images with intravenous contrast Dose reduction was employed with automated exposure control. COMPARISON: 09/24/2022 The liver, spleen, pancreas, adrenals and kidneys are normal. The gallbladder has been removed. No evidence of bowel inflammation or bowel obstruction. The appendix has been removed. Slight free fluid in the pelvis. The bladder is unremarkable. IMPRESSION: Slight free fluid in the pelvis. GES 03/04/21: FINDINGS: At one hour, there is 75 percent of original activity within the stomach. At two hours after ingestion, 50 percent of original activity remains within the stomach. Normal at two hours following ingestion is between 19 and 52 percent. IMPRESSION: Borderline abnormally delayed gastric emptying following solid meal. Colonoscopy pathology 05/16/2020 Scooter Gunderson PA-C 1:31 PM 03/08/24 documented in this encounter [facility] [employer] 03-08-2024 Instructions Scooter Gunderson PA-C - 03/08/2024 1:30 PM EDT --Please call office with any questions or concerns! [phone] --Complete referral with Dr. Gonzáles at the [facility]. --Continue gastroparesis diet. --Continue mediations as prescribed. --Please see handout provided regarding information. --Follow-up with PCP, and in GI clinic in about 6 months following the above evaluation and recommendations. The following attachments cannot be sent through Care Everywhere.Acid Reflux and Gastroesophageal Reflux Disease in Adults (Citizen Of The [place])documented in this encounter 03-08-2024 Note --Please call office with any questions or concerns! [phone] --Complete referral with Dr. Gonzáles at the [facility]. --Continue gastroparesis diet. --Continue mediations as prescribed. --Please see handout provided regarding information. --Follow-up with PCP, and in GI clinic in about 6 months following the above evaluation and recommendations. [facility] 03-02-2024 Miscellaneous Notes 4 hour gastric emptying study shows delayed gastric emptying. Will discuss at follow up 03/08/2024 regarding next steps. documented in this encounter 03-02-2024 Progress note Formatting of t his note might be different from the original. 4 hour gastric emptying study shows delayed gastric emptying. Will discuss at follow up 03/08/2024 regarding next steps. 02-23-2024 History of Present illness Narrative Images from the original note were not included. [facility] [address] [facility] [id number] Visit type: Established Patient Reason for Visit: Follow-up (New to provider,establish care) and ER Follow-up (For abdominal pain, mass was found) Assessment / Plan: Socorro was seen today for follow-up and er follow-up. Diagnoses and all orders for this visit: LUQ abdominal pain (Primary) Comments: Probable constipation, trial of Questran 4 Post cholecystectomy syndrome Gastroparesis Comments: Recurrent, await GI study Psoas muscle strain, right, sequela Comments: Symptomatic, observe for discussed symptoms. Chronic abdominal pain Comments: Unsure of etiology follow-up with GI Mild asthma without complication, unspecified whether persistent Comments: Stable, continue Flonase and albuterol Hiatal hernia with gastroesophageal reflux Comments: Very stable, continue Protonix and urged vaping cessation Other orders - cholestyramine light (Prevalite) 4 g packet; Take 1 packet (4 g) by mouth 2 times daily. 35 Minutes spent on reviewing pertinent history, patient interview, physical exam, discussion of diagnosis and treatment and work-up options. Subjective: Patient ID: Socorro Gonsales is a 28 y.o. female. HPI patient presents to the office for evaluation for left upper quadrant abdominal pain after going to the ER again for bloating and a sense of constipation. Recent CT of the abdomen at [place] was done also. Repeat study a few days ago on February 15 showed possible inflammatory change on the right psoas muscle. Her pain is in the left upper quadrant. Has had no fall or injury. Multiple GI and ER evaluations reviewed. She has had multiple CT imaging over the years. Getting worked up for gastroparesis and getting a gastric emptying study soon. No early satiety or dysphagia. No emesis melena or blood. Has been troubled with constipating bloating at times. Often left upper quadrant pain. Status post partial hysterectomy, cholecystectomy and appendectomy and has had 2 lysis of adhesions. Saw general surgeon a while back for breast issues and addressed possible evaluation for laparotomy but surgeon deferred. She eats pretty well without emesis. Bowels are moving well. Review of Systems no acute symptoms of fever headache or other cardiovascular or pulmonary symptoms. He is vaping unfortunately. She denies any new familial or social stresses. Her mother did pass of [place] syndrome this past year. Takes pantoprazole routinely. No change in use of inhalers. 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 No peculiar vaginal bleeding or dyspareunia. Allergies Allergen Reactions Keflex [Cephalexin] Nausea And Vomiting Morphine Ondansetron Itching Itching and redness in arm when given Zofran IV Seasonal Ic [Octacosanol] Codeine Itching and Rash Gabapentin Other [place] like Heart was racing [place] like Heart was racing Latex Itching, Rash and Hives Other reaction(s): Hives Current Outpatient Medications on File Prior to Visit Medication Sig Dispense Refill Acetaminophen Extra Strength 500 MG tablet Take 1,000 mg by mouth every 6 hours as needed. albuterol 108 (90 Base) MCG/ACT inhaler Inhale 2 puffs every 6 hours as needed. fluticasone (Flonase) 50 MCG/ACT nasal spray 2 sprays in the morning. pantoprazole (ProtoNix) 40 MG EC tablet Take 1 tablet (40 mg) by mouth every morning (before breakfast). Do not crush, chew, or split. 90 tablet 1 polyethylene glycol, PEG, 3350 (Miralax) 17 g packet Take 17 g by mouth in the morning and 17 g in the evening. Do all this for 7 days. 14 packet 0 [DISCONTINUED] albuterol 108 (90 Base) MCG/ACT inhaler inhale 2 puffs by mouth and INTO THE LUNGS every 6 hours if neede... (REFER TO PRESCRIPTION NOTES). [DISCONTINUED] dicyclomine (Bentyl) 10 MG capsule Take 2 capsules (20 mg) by mouth in the morning and 2 capsules (20 mg) at noon and 2 capsules (20 mg) in the evening and 2 capsules (20 mg) before bedtime. 240 capsule 0 No current facility-administered medications on file prior to visit. Patient Active Problem List Diagnosis Chronic constipation PFO (patent foramen ovale) Asthma Allergic rhinitis YVONNE (generalized anxiety disorder) Gastroparesis Hiatal hernia with gastroesophageal reflux Social History Tobacco Use Smoking status: Former Types: Cigarettes Smokeless tobacco: Former Tobacco comments: Vape Use Substance Use Topics Alcohol use: Yes Comment: social Past Surgical History: Procedure Laterality Date ABDOMINAL ADHESION SURGERY 2020 and 2021 APPENDECTOMY 2020 CHOLECYSTECTOMY 2019 COLONOSCOPY 2019 EXPLORATORY LAPAROTOMY 2018 KIDNEY SURGERY PARTIAL HYSTERECTOMY 2021 TUBAL LIGATION Family History Problem Relation Name Age of Onset Other Mother Ramya summer Good pastures synd 07/31 fall with ICH, on Dialysis age 48 No Known Problems Father no contact with No Known Problems Sister No Known Problems Brother Objective: BP 90/70 Pulse 76 Temp 36.5 C (97.7 F) (Temporal) Ht 5' 5 (1.651 m) Wt 156 lb (70.8 kg) SpO2 99% BMI 25.96 kg/m Physical Exam exam was unremarkable. Pleasant alert and oriented. No acute distress. Well-hydrated. Nonicteric. No neck masses JVD or adenopathy or thyroid lesions. Heart is regular gallops murmurs or ectopy. Lungs are clear. Abdomen very soft nontender good bowel sounds without pain hepatosplenomegaly masses bruits or ascites. Certainly no guarding rigidity rebound tenderness. Negative psoas sign. There is no motor loss of the legs. There is no edema pallor or cyanosis. Majority of time reviewing her multiple CAT scans, upper GI, pelvic ultrasound, GI consultations, documented in this encounter [employer] 02-21-2024 Telephone encounter Note Reviewed ED visit 02/16/2024 at [facility]. CT A/P completed with findings of Fluid-filled right iliopsoas bursa suggestive of bursitis. Recommend to follow-up with PCP regarding bursitis. No GI findings on CT report. Unclear reasoning for MRI. Unable to find MRI recommendation in ED notes. [employer] Phone: 02-21-2024 Miscellaneous Notes Reviewed ED visit 02/16/2024 at [facility]. CT A/P completed with findings of Fluid-filled right iliopsoas bursa suggestive of bursitis. Recommend to follow-up with PCP regarding bursitis. No GI findings on CT report. Unclear reasoning for MRI. Unable to find MRI recommendation in ED notes. Pt called back in to see if there were any updates on getting an MRI order. Pt states when she was in the ED they did a CT and seen a mass in her abdomen at the bottom of her spine. Pt is requesting to get the order to have it possibly scheduled before her f/u appt on 03/08. Please advise Name of caller: Socorro Contact phone number: [phone] Relationship to Patient: patient Provider: ZEESHAN Gunderson Practice: [facility] Chief Complaint/Reason for Call: Pt states she was in the ER and was able to have a bowel movement. Pt states the ER advised for her to a MRI. Pt states she is requesting an order for a MRI and would like to be notified once completed. Please review. Best time of day caller can be reached: any Patient advised that office/PCP has 24-48 business hours to return their call: Yes documented in this encounter [facility] 02-21-2024 Telephone encounter Note Pt called back in to see if there were any updates on getting an MRI order. Pt states when she was in the ED they did a CT and seen a mass in her abdomen at the bottom of her spine. Pt is requesting to get the order to have it possibly scheduled before her f/u appt on 03/08. Please advise [facility] 02-17-2024 Telephone encounter Note Name of caller: Socorro Contact phone number: [phone] Relationship to Patient: patient Provider: ZEESHAN Gunderson Practice: [facility] Chief Complaint/Reason for Call: Pt states she was in the ER and was able to have a bowel movement. Pt states the ER advised for her to a MRI. Pt states she is requesting an order for a MRI and would like to be notified once completed. Please review. Best time of day caller can be reached: any Patient advised that office/PCP has 24-48 business hours to return their call: Yes [facility] 02-17-2024 Miscellaneous Notes Name of caller: Socorro Contact phone number: [phone] Relationship to Patient: patient Provider: ZEESHAN Gunderson Practice: [facility] Chief Complaint/Reason for Call: Pt states she was in the ER and was able to have a bowel movement. Pt states the ER advised for her to a MRI. Pt states she is requesting an order for a MRI and would like to be notified once completed. Please review. Best time of day caller can be reached: any Patient advised that office/PCP has 24-48 business hours to return their call: Yes documented in this encounter 02-16-2024 Emergency department Note Patient currently having bowel movement. Layne Garber RN 02/16/241934 02-16-2024 Emergency department Note Patient currently having bowel movement. Layne Garber RN 02/16/241934 CT scan is negative for acute intra-abdominal processes, reveals fluid collection along the iliopsoas muscle suggestive of bursitis. The patient has no fever or leukocytosis, no suspicion for abscess at this time. The patient was updated on results, she is currently resting comfortably, vitals are stable. Plan for discharge with follow-up to PCP and GI. Jean Odonnell DO 02/16/241930 Soap suds enema given by Ajit Snider, patient laying on left side tolerating well. Layne Garber RN 02/16/241912 EMERGENCY DEPARTMENT ENCOUNTER Pt Name: Socorro Gonsales Birthdate 1995 Date of evaluation: 02/16/2024 ED Provider: Neptali Perera MD CHIEF COMPLAINT Chief Complaint Patient presents with Abdominal Pain HISTORY OF PRESENT ILLNESS I wore appropriate PPE for the entirety of this encounter. HPI Socorro Gonsales is a 28 y.o. female who presents to the emergency department complaining of severe abdominal pain. The patient states that this has been present for the last 4 days.she went to [facility] where CAT scan was done. She states that it demonstrated constipation. She has tried MiraLAX and Dulcolax since then but the pain has only worsened. She describes the pain is on the left side. She has had multiple abdominal surgeries in the past. She states that she has known adhesions. She has had a cholecystectomy and appendectomy as well as hysterectomy. She has a history of gastroparesis. She called her GI office who told her to go to the emergency department. She complains of nausea but no emesis. There has been no diarrhea. Nursing Notes were reviewed. Limitations to history: None Outside historians: None REVIEW OF SYSTEMS Review of Systems Constitutional: Negative for chills and fever. HENT: Negative for ear pain and sore throat. Eyes: Negative for pain and visual disturbance. Respiratory: Negative for cough and shortness of breath. Cardiovascular: Negative for chest pain and palpitations. Gastrointestinal: Positive for abdominal pain and nausea. Negative for vomiting. Genitourinary: Negative for dysuria and hematuria. Musculoskeletal: Negative for arthralgias and back pain. Skin: Negative for color change and rash. Neurological: Negative for seizures and syncope. All other systems reviewed and are negative. PAST MEDICAL HISTORY Past Medical History: Diagnosis Date Asthma 2001 Pancreatitis 2020 SURGICAL HISTORY Past Surgical History: Procedure Laterality Date APPENDECTOMY 2020 CHOLECYSTECTOMY 2020 EXPLORATORY LAPAROTOMY 2019 HYSTERECTOMY 2021 KIDNEY SURGERY PARTIAL HYSTERECTOMY TUBAL LIGATION CURRENT MEDICATIONS Previous Medications ACETAMINOPHEN EXTRA STRENGTH 500 MG TABLET Take 1,000 mg by mouth every 6 hours as needed. ALBUTEROL 108 (90 BASE) MCG/ACT INHALER Inhale 2 puffs every 6 hours as needed. ALBUTEROL 108 (90 BASE) MCG/ACT INHALER inhale 2 puffs by mouth and INTO THE LUNGS every 6 hours if neede... (REFER TO PRESCRIPTION NOTES). DICYCLOMINE (BENTYL) 10 MG CAPSULE Take 2 capsules (20 mg) by mouth in the morning and 2 capsules (20 mg) at noon and 2 capsules (20 mg) in the evening and 2 capsules (20 mg) before bedtime. FLUTICASONE (FLONASE) 50 MCG/ACT NASAL SPRAY 2 sprays in the morning. PANTOPRAZOLE (PROTONIX) 40 MG EC TABLET Take 1 tablet (40 mg) by mouth every morning (before breakfast). Do not crush, chew, or split. ALLERGIES Keflex [cephalexin], Morphine, Ondansetron, Seasonal ic [octacosanol], Codeine, Gabapentin, and Latex FAMILY HISTORY Family History Problem Relation Name Age of Onset Kidney disease Mother No Known Problems Father no contact with No Known Problems Sister No Known Problems Brother SOCIAL HISTORY Social History Socioeconomic History Marital status: Significant Other Tobacco Use Smoking status: Former Types: Cigarettes Smokeless tobacco: Former Tobacco comments: Vape Use Vaping Use Vaping status: Every Day Substances: Nicotine Substance and Sexual Activity Alcohol use: Yes Comment: social Drug use: Never Social History Narrative Single, 2 kids (4,6) 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 Overall Financial Resource Strain (CARDIA) Difficulty of Paying Living Expenses: Not hard at all Food Insecurity: No Food Insecurity (01/13/2021) Received from [email or web address] Hunger Vital Sign Worried About Running Out of Food in the Last Year: Never true Ran Out of Food in the Last Year: Never true Transportation Needs: No Transportation Needs (01/13/2021) Received from [facility] PRAPARE - Transportation Lack of Transportation (Medical): No Lack of Transportation (Non-Medical): No Physical Activity: Sufficiently Active (02/16/2019) Received from [email or web address] [facility] Exercise Vital Sign Days of Exercise per Week: 5 days Minutes of Exercise per Session: 150+ min Stress: Stress Concern Present (02/16/2019) Received from [facility] [employer] [place] [facility] [employer] [facility] - Occupational Stress Questionnaire Feeling of Stress : To some extent Social Connections: Socially Isolated (02/16/2019) Received from [facility] Social Connection and Isolation Panel [NHANES] Frequency of Communication with Friends and Family: More than three times a week Frequency of Social Gatherings with Friends and Family: Once a week Attends Restorationism Services: Never Active Member of Clubs or Organizations: No Attends Club or Organization Meetings: Never Marital Status: Never Housing Stability: Low Risk (01/13/2021) Received from [facility] Housing Stability Vital Sign Unable to Pay for Housing in the Last Year: No Number of Places Lived in the Last Year: 1 In the last 12 months, was there a time when you did not have a steady place to sleep or slept in a prison (including now)?: No SCREENINGS PHYSICAL EXAM ED Triage Vitals [02/16/24 1650] Temp Heart Rate Resp BP 36.9 C (98.5 F) 90 16 118/85 SpO2 Temp Source Heart Rate Source Patient Position 100 % Oral -- Lying BP Location FiO2 (%) Right arm -- Physical Exam Vitals and nursing note reviewed. Constitutional: General: She is not in acute distress. Appearance: She is well-developed. Comments: The patient is a young female found lying on a cart. She is alert and oriented. She appears uncomfortable. HENT: Head: Normocephalic and atraumatic. Eyes: Conjunctiva/sclera: Conjunctivae normal. Cardiovascular: Rate and Rhythm: Normal rate and regular rhythm. Heart sounds: No murmur heard. Pulmonary: Effort: Pulmonary effort is normal. No respiratory distress. Breath sounds: Normal breath sounds. Abdominal: Palpations: Abdomen is soft. Tenderness: There is generalized abdominal tenderness. There is no guarding. Musculoskeletal: General: No swelling. Cervical back: Neck supple. Skin: General: Skin is warm and dry. Capillary Refill: Capillary refill takes less than 2 seconds. Neurological: Mental Status: She is alert. Psychiatric: Mood and Affect: Mood normal. DIAGNOSTIC RESULTS RADIOLOGY (Per Emergency Physician): Interpretation per the Radiologist below, if available at the time of this note: CT abdomen pelvis wo IV contrast Final Result Fluid-filled right iliopsoas bursa suggestive of bursitis. Report Dictated on Electronically Signed By: Lizeth De Paz DR Electronically Signed Date/Time: 02/16/2024 6:45 PM EDT EKG Interpretation: LABS: Labs Reviewed COMPREHENSIVE METABOLIC PANEL - Abnormal Result Value SODIUM 137 POTASSIUM 3.9 CHLORIDE 108 (*) CARBON DIOXIDE 21 (*) ANION GAP 8 UREA NITROGEN 6 (*) CREATININE 0.61 GLUCOSE 81 CALCIUM 9.2 AST (SGOT) 23 ALT 13 ALKALINE PHOSPHATASE 40 ALBUMIN 4.2 BILIRUBIN, TOTAL 0.5 TOTAL PROTEIN 7.2 eGFR >90.0 COMPLETE URINALYSIS - Abnormal Color, Urine Colorless Clarity, Urine Clear pH, Urine 6.5 Leukocytes, Urine Negative Nitrite, Urine Negative Protein, Urine Negative Glucose, Urine Normal Bilirubin, Urine Negative Ketones, Urine Negative Urobilinogen, Urine Normal Blood, Urine Negative SPECIFIC GRAVITY OF URINE (NUMERIC) 1.002 (*) CBC WITH AUTO DIFFERENTIAL - Normal Auto WBC 6.5 RBC 4.11 Hemoglobin 12.8 Hematocrit 36.4 MCV 88.6 MCH 31.1 MCHC 35.2 RDW 11.8 Platelets 245 MPV 9.5 nRBC 0.0 Neutrophils Relative 58.1 Lymphocytes Relative 32.8 Monocytes Relative 5.9 Eosinophils Relative 2.5 Basophils Relative 0.5 Immature Grans % 0.2 Neutrophils Absolute 3.8 Lymphocytes Absolute 2.1 Monocytes Absolute 0.4 Eosinophils Absolute 0.2 Basophils Absolute 0.0 Immature Grans Absolute 0.0 LIPASE - Normal LIPASE 222 COMPLETE URINALYSIS WITH REFLEX TO CULTURE Narrative: The following orders were created for panel order Urinalysis complete with reflex to Culture. Procedure Abnormality Status --------- ------ Complete Urinalysis[[id number]] Abnormal Final result Please view results for these tests on the individual orders. All other labs were within normal range or not returned as of this dictation. EMERGENCY DEPARTMENT COURSE and DIFFERENTIAL DIAGNOSIS/MDM: Vitals: Vitals: 02/16/24 1650 02/16/24 1835 BP: 118/85 106/69 BP Location: Right arm Right arm Patient Position: Lying Lying Pulse: 90 62 Resp: 16 16 Temp: 36.9 C (98.5 F) TempSrc: Oral SpO2: 100% Weight: 68 kg (150 lb) Medications Administered in the ED: Medications sodium chloride 0.9 % bolus 1,000 mL (1,000 mL IntraVENous New Bag 02/16/241711) HYDROmorphone (Dilaudid) injection 1 mg (1 mg IntraVENous Given 02/16/241716) promethazine (Phenergan) injection 25 mg (25 mg IntraMUSCular Given 02/16/241716) Carlie Perera MD am the pneumatic system conveyor operator of record. PROCEDURES: Unless otherwise noted below, none Procedures Differential Diagnosis Considerations: Differential diagnosis includes small bowel obstruction, severe constipation, gastroparesis, urinary tract infection. ED testing and evaluation will be obtained to help differentiate these diagnostic possibilities and determine the most likely cause. Sources of History: I evaluated other historical sources including previous outpatient records and admission records. ED Course: In the emergency department I initially evaluated the patient with a history and physical examination in order to determine diagnostic testing and therapeutic care. On the basis of this history and physical examination the patient is given intravenous fluid hydration along with pain medication and medication for nausea. Laboratory work is obtained. CAT scan of the abdomen and pelvis will be obtained. Reassessment: 6:47 PM All laboratory work returns within normal limits on this patient. At the time of this note CAT scan of the abdomen and pelvis is pending. If it does not demonstrate a bowel obstruction my plan is for the patient to have a soapsuds enema. Care of this patient is transferred to the next ED attending at 7:00 PM. Consideration of Admission/Observation: I considered admission for this patient, however, at this time the patient appears to be stable. I do not believe that the patient would benefit from admission at this time. I believe the patient can follow-up with the primary care physician. The patient is advised to return to the emergency department if symptoms change or worsen where admission may need to be considered at a another time. Independent Interpretation of Tests: I independently evaluated the results of the patient's diagnostic testing in the context of the patient's presentation. Diagnostic Tests Considered but not Performed: Unfortunately I do not have access to the patient's prior CAT scan and she states that the pain is significantly worsened from when she was seen at [facility]. For that reason a CAT scan of the abdomen and pelvis will need to be obtained again. Prescription Medications Considered but not Prescribed: The patient is given narcotic pain medication intravenously. Chronic Conditions Affecting Care: The patient has a history of gastroparesis as well as intestinal adhesions. FINAL IMPRESSION 1. Abdominal pain, unspecified abdominal location 2. Constipation, unspecified constipation type DISPOSITION 02/16/2024 06:55:27 PM PATIENT REFERRED TO: [facility] ED [address] [facility] [id number] As needed DISCHARGE MEDICATIONS: New Prescriptions POLYETHYLENE GLYCOL, PEG, 3350 (MIRALAX) 17 G PACKET Take 17 g by mouth in the morning and 17 g in the evening. Do all this for 7 days. (Comment: Please note this report has been produced using speech recognition software and may contain errors related to that system including errors in grammar, punctuation, and spelling, as well as words and phrases that may be inappropriate. If there are any questions or concerns please feel free to contact the dictating provider for clarification.) Neptali Perera MD (electronically signed) Emergency Medicine Provider Neptali Perera MD 02/16/24 1847 Neptali Perera MD 02/16/24 1855 Pt ambulatory to room 12 with c/o left sided abdominal pain and constipation. Pt states symptoms started Wednesday and that she was seen and treated [facility] with diagnosis of constipation. Pt reports that she has used multiple types of enemas, miralax and stool softeners with no results. Pt states she felt a pop in area with increase in pain since then with pain radiating up back and to neck. Pt also has some dysuria. Pt c/o increased pain after CT scan. Physician aware. Selam Snider RN 02/16/241836 documented in this encounter 02-16-2024 Physician Emergency department Note CT scan is negative for acute intra-abdominal processes, reveals fluid collection along the iliopsoas muscle suggestive of bursitis. The patient has no fever or leukocytosis, no suspicion for abscess at this time. The patient was updated on results, she is currently resting comfortably, vitals are stable. Plan for discharge with follow-up to PCP and GI. Jean Odonnell DO 02/16/241930 Work Phone: 02-16-2024 Emergency department Note Soap suds enema given by Ajit Snider, patient laying on left side tolerating well. Layne Garber RN 02/16/241912 02-16-2024 Hospital Discharge instructions Neptali Perera MD - 02/16/2024 6:55 PM EDT Take MiraLAX twice daily for the next 7 days. Avoid all narcotic pain medication. Take Benadryl to help you sleep. Contact your manager of training office about the CAT scan finding along the iliopsoas muscle. They may want to schedule an MRI scan of that area. The following attachments cannot be sent through Care Everywhere.Constipation Discharge Instructions, Adult (Citizen Of [place])documented in this encounter 02-16-2024 Emergency department Note Pt c/o increased pain after CT scan. Physician aware. Selam Snider RN 02/16/241836 02-16-2024 Emergency department Triage note Pt ambulatory to room 12 with c/o left sided abdominal pain and constipation. Pt states symptoms started Wednesday and that she was seen and treated at [facility] with diagnosis of constipation. Pt reports that she has used multiple types of enemas, miralax and stool softeners with no results. Pt states she felt a pop in area with increase in pain since then with pain radiating up back and to neck. Pt also has some dysuria. 02-16-2024 Physician Emergency department Note EMERGENCY DEPARTMENT ENCOUNTER Pt Name: Socorro Gonsales Birthdate 1995 Date of evaluation: 02/16/2024 ED Provider: Neptali Perera MD CHIEF COMPLAINT Chief Complaint Patient presents with Abdominal Pain HISTORY OF PRESENT ILLNESS I wore appropriate PPE for the entirety of this encounter. HPI Socorro Gonsales is a 28 y.o. female who presents to the emergency department complaining of severe abdominal pain. The patient states that this has been present for the last 4 days.she went to [facility] where CAT scan was done. She states that it demonstrated constipation. She has tried MiraLAX and Dulcolax since then but the pain has only worsened. She describes the pain is on the left side. She has had multiple abdominal surgeries in the past. She states that she has known adhesions. She has had a cholecystectomy and appendectomy as well as hysterectomy. She has a history of gastroparesis. She called her GI office who told her to go to the emergency department. She complains of nausea but no emesis. There has been no diarrhea. Nursing Notes were reviewed. Limitations to history: None Outside historians: None REVIEW OF SYSTEMS Review of Systems Constitutional: Negative for chills and fever. HENT: Negative for ear pain and sore throat. Eyes: Negative for pain and visual disturbance. Respiratory: Negative for cough and shortness of breath. Cardiovascular: Negative for chest pain and palpitations. Gastrointestinal: Positive for abdominal pain and nausea. Negative for vomiting. Genitourinary: Negative for dysuria and hematuria. Musculoskeletal: Negative for arthralgias and back pain. Skin: Negative for color change and rash. Neurological: Negative for seizures and syncope. All other systems reviewed and are negative. PAST MEDICAL HISTORY Past Medical History: Diagnosis Date Asthma 2001 Pancreatitis 2019 SURGICAL HISTORY Past Surgical History: Procedure Laterality Date APPENDECTOMY 2020 CHOLECYSTECTOMY 2020 EXPLORATORY LAPAROTOMY 2019 HYSTERECTOMY 2021 KIDNEY SURGERY PARTIAL HYSTERECTOMY TUBAL LIGATION CURRENT MEDICATIONS Previous Medications ACETAMINOPHEN EXTRA STRENGTH 500 MG TABLET Take 1,000 mg by mouth every 6 hours as needed. ALBUTEROL 108 (90 BASE) MCG/ACT INHALER Inhale 2 puffs every 6 hours as needed. ALBUTEROL 108 (90 BASE) MCG/ACT INHALER inhale 2 puffs by mouth and INTO THE LUNGS every 6 hours if neede... (REFER TO PRESCRIPTION NOTES). DICYCLOMINE (BENTYL) 10 MG CAPSULE Take 2 capsules (20 mg) by mouth in the morning and 2 capsules (20 mg) at noon and 2 capsules (20 mg) in the evening and 2 capsules (20 mg) before bedtime. FLUTICASONE (FLONASE) 50 MCG/ACT NASAL SPRAY 2 sprays in the morning. PANTOPRAZOLE (PROTONIX) 40 MG EC TABLET Take 1 tablet (40 mg) by mouth every morning (before breakfast). Do not crush, chew, or split. ALLERGIES Keflex [cephalexin], Morphine, Ondansetron, Seasonal ic [octacosanol], Codeine, Gabapentin, and Latex FAMILY HISTORY Family History Problem Relation Name Age of Onset Kidney disease Mother No Known Problems Father no contact with No Known Problems Sister No Known Problems Brother SOCIAL HISTORY Social History Socioeconomic History Marital status: Significant Other Tobacco Use Smoking status: Former Types: Cigarettes Smokeless tobacco: Former Tobacco comments: Vape Use Vaping Use Vaping status: Every Day Substances: Nicotine Substance and Sexual Activity Alcohol use: Yes Comment: social Drug use: Never Social History Narrative Single, 2 kids (4,6) 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 Overall Financial Resource Strain (CARDIA) Difficulty of Paying Living Expenses: Not hard at all Food Insecurity: No Food Insecurity (01/13/2021) Received from [facility] Hunger Vital Sign Worried About Running Out of Food in the Last Year: Never true Ran Out of Food in the Last Year: Never true Transportation Needs: No Transportation Needs (01/13/2021) Received from [facility] PRAPARE - Transportation Lack of Transportation (Medical): No Lack of Transportation (Non-Medical): No Physical Activity: Sufficiently Active (02/16/2019) Received from [facility] Exercise Vital Sign Days of Exercise per Week: 5 days Minutes of Exercise per Session: 150+ min Stress: Stress Concern Present (02/16/2019) Received from [facility] [place] [employer] - Occupational Stress Questionnaire Feeling of Stress : To some extent Social Connections: Socially Isolated (02/16/2019) [facility] Social Connection and Isolation Panel [NHANES] Frequency of Communication with Friends and Family: More than three times a week Frequency of Social Gatherings with Friends and Family: Once a week Attends Restorationism Services: Never Active Member of Clubs or Organizations: No Attends Club or Organization Meetings: Never Marital Status: Never Housing Stability: Low Risk (01/13/2021) [facility] Housing Stability Vital Sign Unable to Pay for Housing in the Last Year: No Number of Places Lived in the Last Year: 1 In the last 12 months, was there a time when you did not have a steady place to sleep or slept in a prison (including now)?: No SCREENINGS PHYSICAL EXAM ED Triage Vitals [02/16/24 1650] Temp Heart Rate Resp BP 36.9 C (98.5 F) 90 16 118/85 SpO2 Temp Source Heart Rate Source Patient Position 100 % Oral -- Lying BP Location FiO2 (%) Right arm -- Physical Exam Vitals and nursing note reviewed. Constitutional: General: She is not in acute distress. Appearance: She is well-developed. Comments: The patient is a young female found lying on a cart. She is alert and oriented. She appears uncomfortable. HENT: Head: Normocephalic and atraumatic. Eyes: Conjunctiva/sclera: Conjunctivae normal. Cardiovascular: Rate and Rhythm: Normal rate and regular rhythm. Heart sounds: No murmur heard. Pulmonary: Effort: Pulmonary effort is normal. No respiratory distress. Breath sounds: Normal breath sounds. Abdominal: Palpations: Abdomen is soft. Tenderness: There is generalized abdominal tenderness. There is no guarding. Musculoskeletal: General: No swelling. Cervical back: Neck supple. Skin: General: Skin is warm and dry. Capillary Refill: Capillary refill takes less than 2 seconds. Neurological: Mental Status: She is alert. Psychiatric: Mood and Affect: Mood normal. DIAGNOSTIC RESULTS RADIOLOGY (Per Emergency Physician): Interpretation per the Radiologist below, if available at the time of this note: CT abdomen pelvis wo IV contrast Final Result Fluid-filled right iliopsoas bursa suggestive of bursitis. Report Dictated on Electronically Signed By: Lizeth De Paz DR Electronically Signed Date/Time: 02/16/2024 6:45 PM EDT EKG Interpretation: LABS: Labs Reviewed COMPREHENSIVE METABOLIC PANEL - Abnormal Result Value SODIUM 137 POTASSIUM 3.9 CHLORIDE 108 (*) CARBON DIOXIDE 21 (*) ANION GAP 8 UREA NITROGEN 6 (*) CREATININE 0.61 GLUCOSE 81 CALCIUM 9.2 AST (SGOT) 23 ALT 13 ALKALINE PHOSPHATASE 40 ALBUMIN 4.2 BILIRUBIN, TOTAL 0.5 TOTAL PROTEIN 7.2 eGFR >90.0 COMPLETE URINALYSIS - Abnormal Color, Urine Colorless Clarity, Urine Clear pH, Urine 6.5 Leukocytes, Urine Negative Nitrite, Urine Negative Protein, Urine Negative Glucose, Urine Normal Bilirubin, Urine Negative Ketones, Urine Negative Urobilinogen, Urine Normal Blood, Urine Negative SPECIFIC GRAVITY OF URINE (NUMERIC) 1.002 (*) CBC WITH AUTO DIFFERENTIAL - Normal Auto WBC 6.5 RBC 4.11 Hemoglobin 12.8 Hematocrit 36.4 MCV 88.6 MCH 31.1 MCHC 35.2 RDW 11.8 Platelets 245 MPV 9.5 nRBC 0.0 Neutrophils Relative 58.1 Lymphocytes Relative 32.8 Monocytes Relative 5.9 Eosinophils Relative 2.5 Basophils Relative 0.5 Immature Grans % 0.2 Neutrophils Absolute 3.8 Lymphocytes Absolute 2.1 Monocytes Absolute 0.4 Eosinophils Absolute 0.2 Basophils Absolute 0.0 Immature Grans Absolute 0.0 LIPASE - Normal LIPASE 222 COMPLETE URINALYSIS WITH REFLEX TO CULTURE Narrative: The following orders were created for panel order Urinalysis complete with reflex to Culture. Procedure Abnormality Status --------- ------ Complete Urinalysis[[id number]] Abnormal Final result Please view results for these tests on the individual orders. All other labs were within normal range or not returned as of this dictation. EMERGENCY DEPARTMENT COURSE and DIFFERENTIAL DIAGNOSIS/MDM: Vitals: Vitals: 02/16/24 1650 02/16/24 1835 BP: 118/85 106/69 BP Location: Right arm Right arm Patient Position: Lying Lying Pulse: 90 62 Resp: 16 16 Temp: 36.9 C (98.5 F) TempSrc: Oral SpO2: 100% Weight: 68 kg (150 lb) Medications Administered in the ED: Medications sodium chloride 0.9 % bolus 1,000 mL (1,000 mL IntraVENous New Bag 02/16/241711) HYDROmorphone (Dilaudid) injection 1 mg (1 mg IntraVENous Given 02/16/241716) promethazine (Phenergan) injection 25 mg (25 mg IntraMUSCular Given 02/16/241716) I Neptali Perera MD am the pneumatic system conveyor operator of record. PROCEDURES: Unless otherwise noted below, none Procedures Differential Diagnosis Considerations: Differential diagnosis includes small bowel obstruction, severe constipation, gastroparesis, urinary tract infection. ED testing and evaluation will be obtained to help differentiate these diagnostic possibilities and determine the most likely cause. Sources of History: I evaluated other historical sources including previous outpatient records and admission records. ED Course: In the emergency department I initially evaluated the patient with a history and physical examination in order to determine diagnostic testing and therapeutic care. On the basis of this history and physical examination the patient is given intravenous fluid hydration along with pain medication and medication for nausea. Laboratory work is obtained. CAT scan of the abdomen and pelvis will be obtained. Reassessment: 6:47 PM All laboratory work returns within normal limits on this patient. At the time of this note CAT scan of the abdomen and pelvis is pending. If it does not demonstrate a bowel obstruction my plan is for the patient to have a soapsuds enema. Care of this patient is transferred to the next ED attending at 7:00 PM. Consideration of Admission/Observation: I considered admission for this patient, however, at this time the patient appears to be stable. I do not believe that the patient would benefit from admission at this time. I believe the patient can follow-up with the primary care physician. The patient is advised to return to the emergency department if symptoms change or worsen where admission may need to be considered at a another time. Independent Interpretation of Tests: I independently evaluated the results of the patient's diagnostic testing in the context of the patient's presentation. Diagnostic Tests Considered but not Performed: Unfortunately I do not have access to the patient's prior CAT scan and she states that the pain is significantly worsened from when she was seen at [facility]. For that reason a CAT scan of the abdomen and pelvis will need to be obtained again. Prescription Medications Considered but not Prescribed: The patient is given narcotic pain medication intravenously. Chronic Conditions Affecting Care: The patient has a history of gastroparesis as well as intestinal adhesions. FINAL IMPRESSION 1. Abdominal pain, unspecified abdominal location 2. Constipation, unspecified constipation type DISPOSITION 02/16/2024 06:55:27 PM PATIENT REFERRED TO: [facility] ED [address] [id number] As needed DISCHARGE MEDICATIONS: New Prescriptions POLYETHYLENE GLYCOL, PEG, 3350 (MIRALAX) 17 G PACKET Take 17 g by mouth in the morning and 17 g in the evening. Do all this for 7 days. (Comment: Please note this report has been produced using speech recognition software and may contain errors related to that system including errors in grammar, punctuation, and spelling, as well as words and phrases that may be inappropriate. If there are any questions or concerns please feel free to contact the dictating provider for clarification.) Neptali Perera MD (electronically signed) Emergency Medicine Provider Neptali Perera MD 02/16/24 4179 Neptali Perera MD 02/16/24 2720 02-16-2024 Telephone encounter Note S: [facility] regarding abdominal pain and constipation B: Onset of symptoms/concern 02-13-24 A: Patient reports abdominal pain at 8 or 9 on a scale of 0-10. Pain worse on left side wraps around to back. Abdomen is distended and hard as a rock. [place] a popping sensation earlier today when trying to have a BM. Went to [facility] ED on 02-12. Information not viewable in [email or web address]. Patient reports they did imaging and told her she was constipated. Patient states she was discharged and told to try OTC medications at home. On Wednesday did 3 Dulcolax pills and 4 doses of Miralax. Had a very small amount of water stool. Today did 1 suppository and 3 colace. Has been increasing fluid intake since Wednesday. Had emesis on Wednesday but none since. Last bowel movement was 7-4 (excluding very small one yesterday). R: Discussed going to ED to be seen. Patient states she will go to [facility] ED. Will call SO to see if he can get off early to take her. Patient understands care advice. No further needs at this time. Patient instructed to call back with new or worsening symptoms. Message forward to GI office for review. Reason for Disposition SEVERE abdominal pain (e.g., excruciating) Last bowel movement (BM) > 4 days ago Protocols used: Abdominal Pain - Papqti-RSWSV-EW, Xrkbxkilcktk-ONODT-QV 02-16-2024 Miscellaneous Notes S: Patient spoke with [facility] nurse regarding abdominal pain and constipation B: Onset of symptoms/concern 02-13-24 A: Patient reports abdominal pain at 8 or 9 on a scale of 0-10. Pain worse on left side wraps around to back. Abdomen is distended and hard as a rock. [place] a popping sensation earlier today when trying to have a BM. Went to [facility] ED on 02-12. Information not viewable in [email or web address]. Patient reports they did imaging and told her she was constipated. Patient states she was discharged and told to try OTC medications at home. On Wednesday did 3 Dulcolax pills and 4 doses of Miralax. Had a very small amount of water stool. Today did 1 suppository and 3 colace. Has been increasing fluid intake since Wednesday. Had emesis on Wednesday but none since. Last bowel movement was 7-4 (excluding very small one yesterday). R: Discussed going to ED to be seen. Patient states she will go to [facility] ED. Will call SO to see if he can get off early to take her. Patient understands care advice. No further needs at this time. Patient instructed to call back with new or worsening symptoms. Message forward to GI office for review. Reason for Disposition SEVERE abdominal pain (e.g., excruciating) Last bowel movement (BM) > 4 days ago Protocols used: Abdominal Pain - Pfgnhe-MNWSK-YH, Bloipivcggct-VBARJ-YU documented in this encounter 01-06-2024 Telephone encounter Note Called patient, and left message relaying message below TY 01-06-2024 Miscellaneous Notes Called patient, and left message relaying message below TY Recommend high fiber diet, increased watery intake. If she has continued headache, seeing blood in stool, toilet bowel, nausea, vomiting, fevers, chills, recommend ED evaluation. Recommend to complete 4 hour gastric emptying study and to follow up in office. If she continues to see blood more than 1x will consider further evaluation. S: Patient spoke with [facility] nurse regarding rectal blood. B: Onset of symptoms/concern reporting bright red bleeding rectally. A: noted x 1 when she wiped. Not change the water red. Seeing a stain in the underwear. Denies nausea, working 16 hours a day. Feels she is dizzy. (Feels this is from not resting enough) Has taken in about 70 ounces of water. Also reporting a bad headache. Pain 6/10 Denies rectal pain. Patient reported had a constipation stool today R: Has an appointment tomorrow at 13:00 with Holly Gunderson January 03. Patient understands care advice. No further needs at this time. Patient instructed to call back with new or worsening symptoms. See TE 12/01/23 Reason for Disposition MILD rectal bleeding (more than just a few drops or streaks) Protocols used: Rectal Kdzzgndd-UXMTR-XW documented in this encounter [facility] [employer] 01-04-2024 Telephone encounter Note Recommend high fiber diet, increased watery intake. If she has continued headache, seeing blood in stool, toilet bowel, nausea, vomiting, fevers, chills, recommend ED evaluation. Recommend to complete 4 hour gastric emptying study and to follow up in office. If she continues to see blood more than 1x will consider further evaluation. T [facility] 01-04-2024 Telephone encounter Note Called patient and left message that follow up appointment would need to be cancelled and postponed until patient able to complete test. Advised to call once test has been scheduled for completed so we may schedule patient for follow up at that time. [facility] Miscellaneous Notes Called patient and left message that follow up appointment would need to be cancelled and postponed until patient able to complete test. Advised to call once test has been scheduled for completed so we may schedule patient for follow up at that time. TY 2 attempted Called pt and notified. Pt voice understand. Thank you Called pt to relay provider message. Pt didn't answer, lmtcb. Thank you Upper GI barium study shows no outlet obstruction and retained food debris within stomach. Previous 2 hour gastric emptying study was borderline abnormal. Recommend 4 hour GES. documented in this encounter [facility] 01-03-2024 Telephone encounter Note S: Patient spoke with [facility] nurse regarding rectal blood. B: Onset of symptoms/concern reporting bright red bleeding rectally. A: noted x 1 when she wiped. Not change the water red. Seeing a stain in the underwear. Denies nausea, working 16 hours a day. Feels she is dizzy. (Feels this is from not resting enough) Has taken in about 70 ounces of water. Also reporting a bad headache. Pain 6/10 Denies rectal pain. Patient reported had a constipation stool today R: Has an appointment tomorrow at 13:00 with Holly Gunderson January 03. Patient understands care advice. No further needs at this time. Patient instructed to call back with new or worsening symptoms. See TE 12/01/23 Reason for Disposition MILD rectal bleeding (more than just a few drops or streaks) Protocols used: Rectal Tmkytrsq-DNAEG-AQ [facility] [employer] [facility] 12-10-2023 Telephone encounter Note Pantoprazole 40 mg daily called into pharmacy per patient request 2/2 GERD. 12-10-2023 Miscellaneous Notes Pantoprazole 40 mg daily called into pharmacy per patient request 2/2 GERD. documented in this encounter 12-06-2023 Telephone encounter Note 2 attempted Called pt and notified. Pt voice understand. Thank you 12-06-2023 Miscellaneous Notes 2 attempted Called pt and notified. Pt voice understand. Thank you Called pt to relay provider message. Pt didn't answer, lmtcb. Thank you Upper GI barium study shows no outlet obstruction and retained food debris within stomach. Previous 2 hour gastric emptying study was borderline abnormal. Recommend 4 hour GES. documented in this encounter 12-06-2023 Telephone encounter Note Called pt to relay provider message. Pt didn't answer, lmtcb. Thank you 12-03-2023 Telephone encounter Note Upper GI barium study shows no outlet obstruction and retained food debris within stomach. Previous 2 hour gastric emptying study was borderline abnormal. Recommend 4 hour GES. 12-03-2023 Miscellaneous Notes Upper GI barium study shows no outlet obstruction and retained food debris within stomach. Previous 2 hour gastric emptying study was borderline abnormal. Recommend 4 hour GES. documented in this encounter [facility] 11-29-2023 History of Present illness Narrative OUTPATIENT NUTRITION SERVICES Nutrition Education - Initial Progress Note Patient: Socorro Gonsales Date of : 1995 Age: 28 y.o. Gender: female Service Date: 11/29/2023 Reason for Visit: [x] Gastroparesis Medical History: Past Medical History: Diagnosis Date Asthma 2000 Pancreatitis 2019 Current Medications: has a current medication list which includes the following prescription(s): acetaminophen, albuterol, albuterol, dicyclomine, fluticasone, and pantoprazole. 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 Gastrointestinal Signs and Symptoms: [x] Bloating [x] GERD [x] Constipation [x] Diarrhea [x] Nausea [x] Vomiting Bowel Movement Frequency: Pt relates sporadic bowel movement patterns. Notes for several weeks may experience constipation (for 2-3 weeks) and then diarrhea for 2-3 weeks. Has tried fiber, miralax which did not help with constipation or diarrhea. Was drinking metamucil which also did not help s/s. Was taking Protonix which relieved symptoms for 3 months however then s/s resumed. Nita pt reports made pt severely sick so dc'd. Has upper GI scheduled for this . Stool sample results came back normal. Vomiting occurs 1 day/month. Experiences hot flashes, abdominal pain in RUQ, and in bathroom for multiple hours vomiting or having bowel movement. Food Allergies/Intolerances: NKFA Diet Recall: Breakfast: skips, if were to eat stomach would hurt throughout rest of day Lunch [ 10-11a ]: fruit (banana, apple, watermelon, or orange)or yogurt or granola or protein bar or fiber bar Snack [ 1-3p ]: granola bar or protein bar, string cheese (light), or yogurt Dinner [ 5-9p ]: tacos (soft shell, cheese, tomatoes), ribs with mashed potatoes creamy chicken noodles or rice with vegetable, gambian chicken, spaghetti w/ meat sauce (lean ground beef), pot roast with potatoes, Steak with rice/noodles broccoli/green beans Snack [ 6-8p ]: granola bar or protein bar, string cheese (light), or yogurt Beverages: Powerade (2 bottles), Water (64 ounces), Pure [place] Sweetened Tea, occasional pop or Body [place] Light Out to eat: 2-3 times per month Estimated Nutrient Needs: Dosing weight: 70 kg (CBW) Calories: 1500- 1700 kcal (25 kcal/kg, minus 25 kcal) Protein: 70-80 g (1-1.2 g/kg) Fluid: 1500- 1700 ml (1ml/ kcal) Nutrition Diagnosis: [x] Altered GI function related changes in gastric motility (gastroparesis) as evidenced by pt interview experiencing signs and symptoms of early satiety at meals, reflux, bloating and/or cramping. Note: Relates hx of abdominal pain since ~2019. Hx of abdominal surgeries, appendectomy, and cholecystectomy in the past. Notes has continued to experience stomach pain since surgeries- has undergone colonoscopy which revealed probable microscopic colitis, EGD without acute findings, and GES which showed borderline slow gastric emptying. Had hysterectomy and adhesion removal. Pt states s/s of GI distress does not have patterns with food intake. 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 Provided and discussed gastroparesis nutrition therapy. Rec pt consume small, frequent meals (4 to 6 times per day). Limit intake of high-fat foods - choose low or reduced fat dairy products, lean protein sources, and limit intake of whole nuts/seeds. Limit fiber intake to ~2-3 grams fiber per meal/snack- choose grain that contain </=2 grams fiber per serving, choose canned (low sodium) or frozen vegetables cooking until fork tender (no raw vegetables or fruit), and canned or cooked fruit (canned fruit packed in 100% fruit juice or water). Limit or cease intake of high fat, fried, greasy, oily, and spicy foods, carbonated beverages, caffeine, and alcohol as these can worsen s/s of gastroparesis. Rec chew foods thoroughly before swallowing. Sit upright while eating and sit upright or walk after meals. Do not lie down for 3 to 4 hours after eating to avoid reflux or regurgitation. Do not drink fluids at meals which can take up room in stomach- delay fluid intake by at least 30 minutes before meal and wait to consume until 30 minutes after meal. Taught label reading- serving size, total fat, and dietary fiber. Demonstrated Understanding of Information provided: [x] Good Impression of Readiness to Change: [x] Pt seems committed to change and/or has already started taking steps to make the necessary changes. Goals: Increase meal frequency to 4-6 small meals per day. Space meals 3-5 hours a part. Limit fiber intake to low/moderate fiber containing food sources. Always choose low fat food options- consume <65 grams fat daily. Materials Provided: NCM Gastroparesis Nutrition Therapy NCM Fiber Content Food List Protein Content Food List Fiber in Diet Soluble Fiber Food List Healthy Snacks for a Healthier You Appointment Time Spent: 45 minutes Follow up: Pt to call and schedule follow-up if interested in the future with Niurka Barbosa RD, TIFFANI. Assessment completed by: Mary Tong MS, RDN, LD documented in this encounter [facility] 11-21-2023 Note HNO ID: [id number] Author: LEILANI ALVARADO PA Service: ? Author Type: Physician Therapeutic Mentor Type: Progress Notes Filed: 11/21/2023 09:19 Note Text: This note was created using [employer]. Subjective Socorro Gonsales is a 28 year old female. HPI 28-year-old female presents for sore throat, ear pain, congestion, fevers x 1 week. Patient states that last week-Wednesday she started getting sore throat and nasal congestion. She states that she started getting right ear pain a few days ago. She states that she has felt feverish at home, but has not had a fever on her thermometer. Temp here 99.2 ?F. She did take Tylenol few hours ago. Patient has had bodyaches. She states that she has a lot of sinus pressure, sinus pain and headache. She states her daughter recently tested positive for strep. She had vomiting and diarrhea 3 days ago, but none since. Still able to eat and drink. PAST MEDICAL HISTORY Diagnosis Date Anemia anxiety Asthma PAST SURGICAL HISTORY Procedure Laterality Date LAPAROSCOPY W/RMVL ADNEXAL STRUCTURES Bilateral 04/28/2018 l/s bilateral salpingectomy PAST SURGICAL HISTORY OF wisdom teeth PAST SURGICAL HISTORY OF 03/2020 exploratory laparoscopy VAGINAL HYSTERECTOMY 2021 ALLERGIES Codeine, Gabapentin, Latex, Seasonal Allergies, and Zofran [Ondansetron] MEDICATIONS fluticasone (FLONASE) 50 mcg/actuation nasal spray Use 2 Sprays in each nostril once daily. Rinse mouth after use. albuterol HFA (PROVENTIL HFA, VENTOLIN HFA) 90 mcg/actuation inhaler Inhale 2 Puffs as instructed every 6 hours as needed for wheezing/shortness of breath. Etefolfqzkxpeok-Nqvnwdfmr-CU (BROMFED DM) 2-30-10 mg/5 mL syrup Take 10 mL by mouth four times a day as needed. (Patient not taking: Reported on 11/21/2023) pantoprazole DR (PROTONIX) 40 mg tablet Take 40 mg by mouth once daily. (Patient not taking: Reported on 11/21/2023) Yehwsifhvtiqxbk-Rkhjgymit-RQ (BROMFED DM) 2-30-10 mg/5 mL syrup Take 10 mL by mouth four times a day as needed. (Patient not taking: Reported on 10/19/2023) fluticasone (FLONASE) 50 mcg/actuation nasal spray Use 2 Sprays in each nostril once daily. Rinse mouth after use. (Patient not taking: Reported on 10/19/2023) FAMILY HISTORY Problem Relation Age of Onset Heart Mother Seizures Mother Stroke Mother Multiple Sclerosis Mother Psychiatry Sister Manic Depression Hypertension Maternal Grandfather Breast Cancer Maternal Aunt Hypertension Maternal Uncle Social History Tobacco Use Smoking status: Former Years: 3 Types: Cigarettes Smokeless tobacco: Never Substance Use Topics Alcohol use: Yes Comment: rarely Drug use: No Review of Systems Constitutional: Positive for chills and fever. HENT: Positive for congestion, ear pain, sinus pressure, sinus pain and sore throat. Respiratory: Positive for cough. Negative for shortness of breath. Cardiovascular: Negative for chest pain. Gastrointestinal: Positive for diarrhea and vomiting. Negative for abdominal pain. Neurological: Positive for headaches. Objective BP 90/64 Pulse 100 Temp 37.3 ?C (99.2 ?F) Resp 18 Wt 70.3 kg (154 lb 15.7 oz) LMP 03/25/2022 SpO2 100% BMI 25.79 kg/m? Physical Exam Vitals and nursing note reviewed. Constitutional: General: She is not in acute distress. Appearance: Normal appearance. She is not toxic-appearing. HENT: Right Ear: Ear canal normal. A middle ear effusion is present. Left Ear: Tympanic membrane and ear canal normal. Nose: Mucosal edema and congestion present. Right Sinus: Maxillary sinus tenderness and frontal sinus tenderness present. Left Sinus: Maxillary sinus tenderness and frontal sinus tenderness present. Mouth/Throat: Mouth: Mucous membranes are moist. Pharynx: Uvula midline. Posterior oropharyngeal erythema present. No oropharyngeal exudate. Tonsils: No tonsillar abscesses. 1+ on the right. 1+ on the left. Eyes: Conjunctiva/sclera: Conjunctivae normal. Cardiovascular: Rate and Rhythm: Normal rate and regular rhythm. Pulmonary: Effort: Pulmonary effort is normal. Breath sounds: Normal breath sounds. Abdominal: General: Abdomen is flat. Palpations: Abdomen is soft. Tenderness: There is no abdominal tenderness. Neurological: Mental Status: She is alert. Assessment and Plan ASSESSMENT/PLAN: 1. Bacterial sinusitis - ICD9: 473.9, 041.9, ICD10: J32.9, B96.89 (primary diagnosis) - Will begin treatment with Augmentin 875 mg PO BID for 7 days - The patient should also be given OTC decongestants prn for the first 5-7 days of treatment. - Supportive care with plenty of fluids, rest, and analgesia prn. 2. Sore throat - ICD9: 462, ICD10: J02.9 - suspect viral - Group A strep molecular testing negative - Discussed supportive care treatment with fluids, rest and analgesia. - The patient may also use warm salt water gargles, throat lozenges and/or OTC throat spray as needed. Diagnosis an (more content not included)... [facility] 11-21-2023 History of Present illness Narrative This note was created using [employer]. Subjective Socorro Gonsales is a 28 year old female. HPI 28-year-old female presents for sore throat, ear pain, congestion, fevers x 1 week. Patient states that last week-Wednesday she started getting sore throat and nasal congestion. She states that she started getting right ear pain a few days ago. She states that she has felt feverish at home, but has not had a fever on her thermometer. Temp here 99.2 F. She did take Tylenol few hours ago. Patient has had bodyaches. She states that she has a lot of sinus pressure, sinus pain and headache. She states her daughter recently tested positive for strep. She had vomiting and diarrhea 3 days ago, but none since. Still able to eat and drink. PAST MEDICAL HISTORY Diagnosis Date Anemia anxiety Asthma PAST SURGICAL HISTORY Procedure Laterality Date LAPAROSCOPY W/RMVL ADNEXAL STRUCTURES Bilateral 04/28/2018 l/s bilateral salpingectomy PAST SURGICAL HISTORY OF wisdom teeth PAST SURGICAL HISTORY OF 03/2020 exploratory laparoscopy VAGINAL HYSTERECTOMY 2021 ALLERGIES Codeine, Gabapentin, Latex, Seasonal Allergies, and Zofran [Ondansetron] MEDICATIONS fluticasone (FLONASE) 50 mcg/actuation nasal spray Use 2 Sprays in each nostril once daily. Rinse mouth after use. albuterol HFA (PROVENTIL HFA, VENTOLIN HFA) 90 mcg/actuation inhaler Inhale 2 Puffs as instructed every 6 hours as needed for wheezing/shortness of breath. Suczmajzrrwwgue-Dybkxstcx-UW (BROMFED DM) 2-30-10 mg/5 mL syrup Take 10 mL by mouth four times a day as needed. (Patient not taking: Reported on 11/21/2023) pantoprazole DR (PROTONIX) 40 mg tablet Take 40 mg by mouth once daily. (Patient not taking: Reported on 11/21/2023) Coxkheqdqnqkqnp-Bfyckqgcn-NI (BROMFED DM) 2-30-10 mg/5 mL syrup Take 10 mL by mouth four times a day as needed. (Patient not taking: Reported on 10/19/2023) fluticasone (FLONASE) 50 mcg/actuation nasal spray Use 2 Sprays in each nostril once daily. Rinse mouth after use. (Patient not taking: Reported on 10/19/2023) FAMILY HISTORY Problem Relation Age of Onset Heart Mother Seizures Mother Stroke Mother Multiple Sclerosis Mother Psychiatry Sister Manic Depression Hypertension Maternal Grandfather Breast Cancer Maternal Aunt Hypertension Maternal Uncle Social History Tobacco Use Smoking status: Former Years: 3 Types: Cigarettes Smokeless tobacco: Never Substance Use Topics Alcohol use: Yes Comment: rarely Drug use: No Review of Systems Constitutional: Positive for chills and fever. HENT: Positive for congestion, ear pain, sinus pressure, sinus pain and sore throat. Respiratory: Positive for cough. Negative for shortness of breath. Cardiovascular: Negative for chest pain. Gastrointestinal: Positive for diarrhea and vomiting. Negative for abdominal pain. Neurological: Positive for headaches. Objective BP 90/64 Pulse 100 Temp 37.3 C (99.2 F) Resp 18 Wt 70.3 kg (154 lb 15.7 oz) LMP 03/25/2022 SpO2 100% BMI 25.79 kg/m Physical Exam Vitals and nursing note reviewed. Constitutional: General: She is not in acute distress. Appearance: Normal appearance. She is not toxic-appearing. HENT: Right Ear: Ear canal normal. A middle ear effusion is present. Left Ear: Tympanic membrane and ear canal normal. Nose: Mucosal edema and congestion present. Right Sinus: Maxillary sinus tenderness and frontal sinus tenderness present. Left Sinus: Maxillary sinus tenderness and frontal sinus tenderness present. Mouth/Throat: Mouth: Mucous membranes are moist. Pharynx: Uvula midline. Posterior oropharyngeal erythema present. No oropharyngeal exudate. Tonsils: No tonsillar abscesses. 1+ on the right. 1+ on the left. Eyes: Conjunctiva/sclera: Conjunctivae normal. Cardiovascular: Rate and Rhythm: Normal rate and regular rhythm. Pulmonary: Effort: Pulmonary effort is normal. Breath sounds: Normal breath sounds. Abdominal: General: Abdomen is flat. Palpations: Abdomen is soft. Tenderness: There is no abdominal tenderness. Neurological: Mental Status: She is alert. Assessment and Plan ASSESSMENT/PLAN: 1. Bacterial sinusitis - ICD9: 473.9, 041.9, ICD10: J32.9, B96.89 (primary diagnosis) - Will begin treatment with Augmentin 875 mg PO BID for 7 days - The patient should also be given OTC decongestants prn for the first 5-7 days of treatment. - Supportive care with plenty of fluids, rest, and analgesia prn. 2. Sore throat - ICD9: 462, ICD10: J02.9 - suspect viral - Group A strep molecular testing negative - Discussed supportive care treatment with fluids, rest and analgesia. - The patient may also use warm salt water gargles, throat lozenges and/or OTC throat spray as needed. Diagnosis and treatment plan were discussed and questions were answered to the patient's satisfaction. Pt acknowledged understanding of concepts and follow up plan. Specific signs and symptoms that would indicate the need for higher level of care were discussed in detail warranting prompt ER evaluation. MALI Napoles documented in this encounter [facility] 10-21-2023 History of Present illness Narrative Nontoxic-appearing female presents urgent care chief complaint abdominal pain. Duration of symptoms today. Associated symptoms worsening left upper abdominal discomfort. On palpation patient has significant upper abdominal pain. Has had gallbladder removed previously. With level severity of patient's discomfort recommended be seen in the ED for further evaluation care verbalized understand agrees with plan of care. Jaguar Person APRN.JORDANA documented in this encounter [facility] 10-19-2023 History of Present illness Narrative This note was created using [employer]. Subjective Socorro Gonsales is a 27 year old female. HPI Presents with cough, congestion, runny nose, sore throat, body aches and hot flashes over the past 5 days. No fever that she knows of but has not checked temp at home. She does have a history of asthma. She denies vomiting or diarrhea. There is no multiple people sick at work at her new job. She has tried Tylenol [id number]. Review of Systems Constitutional: Positive for chills and fatigue. Negative for fever. HENT: Positive for congestion, rhinorrhea and sore throat. Negative for ear pain. Respiratory: Positive for cough and wheezing. Negative for shortness of breath. Cardiovascular: Negative. Gastrointestinal: Negative. Genitourinary: Negative. Musculoskeletal: Positive for myalgias. Neurological: Positive for headaches. All other systems reviewed and are negative. PAST MEDICAL HISTORY Diagnosis Date Anemia anxiety Asthma Current Outpatient Medications Medication Sig Dispense Refill albuterol HFA (PROVENTIL HFA, VENTOLIN HFA) 90 mcg/actuation inhaler Inhale 2 Puffs as instructed every 6 hours as needed for wheezing/shortness of breath. 1 Each 0 Fmqsyjqgbgzvmmt-Tpobvadcu-FA (BROMFED DM) 2-30-10 mg/5 mL syrup Take 10 mL by mouth four times a day as needed. 200 mL 0 fluticasone (FLONASE) 50 mcg/actuation nasal spray Use 2 Sprays in each nostril once daily. Rinse mouth after use. [address] (PROTONIX) 40 mg tablet Take 40 mg by mouth once daily. Etvuuyngmyhbmtd-Afkiecaxh-AR (BROMFED DM) 2-30-10 mg/5 mL syrup Take 10 mL by mouth four times a day as needed. (Patient not taking: Reported on 10/19/2023) 118 mL 0 fluticasone (FLONASE) 50 mcg/actuation nasal spray Use 2 Sprays in each nostril once daily. Rinse mouth after use. (Patient not taking: Reported on 10/19/2023) 1 Each 0 No current facility-administered medications for this visit. PAST SURGICAL HISTORY Procedure Laterality Date LAPAROSCOPY W/RMVL ADNEXAL STRUCTURES Bilateral 04/28/2018 l/s bilateral salpingectomy PAST SURGICAL HISTORY OF wisdom teeth PAST SURGICAL HISTORY OF 03/2020 exploratory laparoscopy VAGINAL HYSTERECTOMY 2021 FAMILY HISTORY Problem Relation Age of Onset Heart Mother Seizures Mother Stroke Mother Multiple Sclerosis Mother Psychiatry Sister Manic Depression Hypertension Maternal Grandfather Breast Cancer Maternal Aunt Hypertension Maternal Uncle Social History Tobacco Use Smoking status: Former Years: 3 Types: Cigarettes Smokeless tobacco: Never Substance Use Topics Alcohol use: Yes Comment: rarely Drug use: No Objective BP 106/64 Pulse 64 Temp 37 C (98.6 F) Resp 16 Wt 68.6 kg (151 lb 3.8 oz) LMP 03/25/2022 SpO2 98% BMI 25.17 kg/m Physical Exam Vitals reviewed. Constitutional: Appearance: Normal appearance. HENT: Head: Normocephalic and atraumatic. Right Ear: Tympanic membrane, ear canal and external ear normal. Left Ear: Tympanic membrane, ear canal and external ear normal. Nose: Congestion present. Mouth/Throat: Mouth: Mucous membranes are moist. Pharynx: Oropharynx is clear. Cardiovascular: Rate and Rhythm: Normal rate and regular rhythm. Heart sounds: Normal heart sounds. Pulmonary: Effort: Pulmonary effort is normal. Breath sounds: Normal breath sounds. No wheezing, rhonchi or rales. Musculoskeletal: Cervical back: Neck supple. Lymphadenopathy: Cervical: No cervical adenopathy. Skin: General: Skin is warm and dry. Findings: No rash. Neurological: Mental Status: She is alert. Assessment and Plan ASSESSMENT/PLAN: 1. Viral URI with cough - ICD9: 465.9, ICD10: J06.9 -Bromfed Rx as well as Flonase sent. - Discussed viral etiology and rationale for treatment. - Symptomatic treatment with prn analgesia - Supportive care with fluids and rest - Follow up in 3-5 days if symptoms persist or sooner if worsening of symptoms Denise Bartlett PA-C documented in this encounter [facility] 10-06-2023 Telephone encounter Note FAXED VINCE TO [facility], LOOKING FOR RECORDS FROM 2016. [facility] [employer] 10-06-2023 Miscellaneous Notes FAXED VINCE TO [facility], LOOKING FOR RECORDS FROM 2016. Name of caller: Socorro Contact phone number: [phone] Relationship to Patient: patient Provider: Former Patient of Dr. Johnosn Practice: [facility] Chief Complaint/Reason for Call: Patient called in to see if the office would be able to locate records back from the fall from when they had an x-ray completed ordered by Dr. Johnson for one of their knees. Patient states that they are not sure which knee this was for and they have been seeing a chiropractor and they have now been referred to an orthopedic surgeon and they are requesting these records. Patient was also provided the phone number for the records department. Patient is requesting a call back. Please advise. Best time of day caller can be reached: Any Patient advised that office/PCP has 24-48 business hours to return their call: No documented in this encounter 10-06-2023 Telephone encounter Note Name of caller: Socorro Contact phone number: [phone] Relationship to Patient: patient Provider: Former Patient of Dr. Johnson Practice: [facility] Chief Complaint/Reason for Call: Patient called in to see if the office would be able to locate records back from the fall from when they had an x-ray completed ordered by Dr. Johnson for one of their knees. Patient states that they are not sure which knee this was for and they have been seeing a chiropractor and they have now been referred to an orthopedic surgeon and they are requesting these records. Patient was also provided the phone number for the records department. Patient is requesting a call back. Please advise. Best time of day caller can be reached: Any Patient advised that office/PCP has 24-48 business hours to return their call: No 09-14-2023 History of Present illness Narrative Images from the original note were not included. [facility] [address] [facility] [address] Dept: [phone] Dept Loc: [phone] Visit type: New Reason for Visit: New Patient and Abdominal Pain Assessment and Plan Problem List Items Addressed This Visit None Visit Diagnoses Gastroparesis - Primary Relevant Orders FL upper GI w KUB [facility] Dietitian RD Chronic abdominal pain Relevant Orders H. pylori Stool Antigen FL upper GI w KUB History of esophagogastroduodenoscopy (EGD) History of colonoscopy History of abdominal surgery -Symptoms are acute on chronic. States these are similar to what she was experiencing starting in 2019 and has been evaluated with EGD, colonoscopy, gastric emptying study, CT. EGD unremarkable. Colonoscopy with probable microscopic colitis. GES shows borderline slow gastric emptying. -Will evaluate with FL UGI with KUB. EGD 2020 without acute finding. -Will evaluate with H. Pylori stool antigen. Socorro will need to hold PPI 2 weeks prior to completing study. -Will send referral to dietitian. -She is also s/p multiple abdominal surgery with lysis of adhesions. This may be a component of her abdominal pain. -Follow up in 3 months. No follow-ups on file. Advised patient to call office with new or worsening symptoms, questions, or concerns. Patient verbalized understanding and agreement of plan. Richardson Quintanilla is a 27 y.o. female who presents as a new patient. She was referred by Dr. Jean Odonnell DO regarding Abdominal pain, epigastric. She is new to provider but has been evaluated in the office before. Last office visit was 05/02/2021 with Naty Moran PA-C regarding generalized abdominal pain; nausea and vomiting; Lymphocytic colitis. HPI Has had chronic epigastric pain since late 2018 associated with nausea and emesis. S/p 05/04/2022 with Total Laparoscopic Hysterectomy, Cystoscopy. S/p Laparoscopy lysis of adhesions and laparoscopic appendectomy 03/26/2021. S/p cholecystectomy 2018-. S/p tubal ligation 2017. S/p surgeries has felt better, but since 05/2023 has recurrence of abdominal pain. This occurs postprandially. Can be made worse with movement, such as bending over or exercising. Has been nauseous with emesis. Last episode was yesterday. Denies hematemesis or coffee ground emesis. This is similar to last occurrence evaluated by Naty. Is taking pantoprazole 40 mg daily. Has had chronic lower abdominal pain since 2018. Has a BM once a day. Denies constipation or diarrhea. Denies hematochezia or dark stools. Weight is fluctuating, stable. EtOH: None. Tobacco: Vape. NSAIDs: Rarely PRN. Illicit drugs: None. Family History of Colon Cancer: None. Prior EGD/Colonoscopy: EGD 2020. Colonoscopy 2019. Prior Abdominal Surgery: Multiple as in HPI. Review of Systems Constitutional: Negative for appetite change, fatigue, fever and unexpected weight change. HENT: Negative for trouble swallowing. Respiratory: Negative for cough, choking and shortness of breath. Cardiovascular: Negative for chest pain. Gastrointestinal: Positive for abdominal pain, nausea and vomiting. Negative for abdominal distention, anal bleeding, blood in stool, constipation, diarrhea and rectal pain. Skin: Negative for color change, pallor and rash. Allergies Allergen Reactions Keflex [Cephalexin] Nausea And Vomiting Ondansetron Itching Itching and redness in arm when given Zofran IV Seasonal Ic [Octacosanol] Codeine Itching and Rash Gabapentin Other [place] like Heart was racing [place] like Heart was racing Latex Itching and Rash Other reaction(s): Hives Outpatient Medications Prior to Visit Medication Sig Dispense Refill Acetaminophen Extra Strength 500 MG tablet Take 1,000 mg by mouth every 6 hours as needed. albuterol 108 (90 Base) MCG/ACT inhaler Inhale 2 puffs every 6 hours as needed. albuterol 108 (90 Base) MCG/ACT inhaler inhale 2 puffs by mouth and INTO THE LUNGS every 6 hours if neede... (REFER TO PRESCRIPTION NOTES). dicyclomine (Bentyl) 10 MG capsule Take 2 capsules (20 mg) by mouth in the morning and 2 capsules (20 mg) at noon and 2 capsules (20 mg) in the evening and 2 capsules (20 mg) before bedtime. 240 capsule 0 fluticasone (Flonase) 50 MCG/ACT nasal spray 2 sprays in the morning. pantoprazole (ProtoNix) 40 MG EC tablet Take 1 tablet (40 mg) by mouth every morning (before breakfast). Do not crush, chew, or split. 30 tablet 3 No facility-administered medications prior to visit. Patient Active Problem List Diagnosis Date Noted Post-operative pain 05/05/2022 Priority: Medium Abnormal uterine bleeding (AUB) 03/12/2022 Priority: Medium Right lower quadrant abdominal pain 03/26/2021 Hydronephrosis with ureteropelvic junction (UPJ) obstruction 12/28/2020 Right upper quadrant abdominal pain 12/28/2020 Hematuria, gross 12/28/2020 Diarrhea 12/06/2020 Intractable abdominal pain 12/03/2020 Pelvic pain 02/22/2020 Abdominal pain 02/21/2020 Anemia 07/27/2019 Chronic constipation 07/27/2019 YVONNE (generalized anxiety disorder) 07/27/2019 Abnormal barium enema 05/14/2019 PFO (patent foramen ovale) 05/14/2019 Non-intractable vomiting 05/13/2019 LUQ abdominal pain 05/13/2019 Abnormal findings on imaging of biliary tract 05/13/2019 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 Precordial pain 07/12/2018 Tobacco abuse 03/17/2017 Syncope and collapse 03/15/2017 Asthma 03/05/2017 Allergic rhinitis 03/05/2017 Social History Tobacco Use Smoking status: Former Types: Cigarettes Smokeless tobacco: Former Tobacco comments: Vape Use Substance Use Topics Alcohol use: Yes Comment: social Family History Problem Relation Name Age of Onset Kidney disease Mother No Known Problems Father no contact with No Known Problems Sister No Known Problems Brother Objective BP 109/70 Pulse 82 Temp 36.8 C (98.2 F) Ht 5' 5 (1.651 m) Wt 155 lb (70.3 kg) BMI 25.79 kg/m Physical Exam Vitals reviewed. Constitutional: General: She is not in acute distress. Appearance: Normal appearance. She is not ill-appearing. Pulmonary: Effort: Pulmonary effort is normal. Breath sounds: Normal breath sounds. Abdominal: General: Bowel sounds are normal. There is no distension. Palpations: Abdomen is soft. There is no mass. Tenderness: There is abdominal tenderness (mild epigastric tenderness with deep palpation.). There is no guarding or rebound. Hernia: No hernia is present. Neurological: General: No focal deficit present. Mental Status: She is alert and oriented to person, place, and time. Psychiatric: Mood and Affect: Mood normal. Behavior: Behavior normal. Data Reviewed and Summarized Labs: Lab Results Component Value Date WBC 6.9 08/05/2023 HGB 13.9 08/05/2023 HCT 40.1 08/05/2023 PLT 360 08/05/2023 CHOL 126 07/25/2019 TRIG 109 07/25/2019 HDL 41 07/25/2019 ALT 20 08/05/2023 AST 28 08/05/2023 NA 140 08/05/2023 K 3.9 08/05/2023 CL 110 (H) 08/05/2023 CREATININE 0.65 08/05/2023 BUN 11 08/05/2023 CO2 21 (L) 08/05/2023 INR 1.0 02/20/2020 Lab Results Component Value Date WBC 6.9 08/05/2023 HGB 13.9 08/05/2023 HCT 40.1 08/05/2023 MCV 89.3 08/05/2023 PLT 360 08/05/2023 Chemistry Lab Results Component Value Date/Time NA 140 08/05/2023 1950 K 3.9 08/05/2023 1950 CL 110 (H) 08/05/2023 1950 CO2 21 (L) 08/05/2023 1950 CO2 23 09/15/2022 1119 BUN 11 08/05/2023 1950 BUN 8 09/15/2022 1119 CREATININE 0.65 08/05/2023 1950 CREATININE 0.75 09/15/2022 1119 Lab Results Component Value Date/Time CALCIUM 9.3 08/05/2023 1950 CALCIUM 9.9 09/15/2022 1119 ALKPHOS 56 08/05/2023 1950 ALKPHOS 48 09/15/2022 1119 AST 28 08/05/2023 1950 AST 13 09/15/2022 1119 ALT 20 08/05/2023 1950 ALT 9 09/15/2022 1119 BILITOT 0.4 08/05/2023 1950 BILITOT 0.5 09/15/2022 1119 Lab Results Component Value Date LIPASE 200 08/05/2023 Imaging/Testing: CT abdomen pelvis w contrast 05/17/2023 Reason For Exam: RLQ abdominal pain (Age >= 14y) CT abdomen and pelvis with contrast HISTORY: Right lower quadrant pain Protocol: 3 mm axial images with intravenous contrast Dose reduction was employed with automated exposure control. COMPARISON: 09/24/2022 The liver, spleen, pancreas, adrenals and kidneys are normal. The gallbladder has been removed. No evidence of bowel inflammation or bowel obstruction. The appendix has been removed. Slight free fluid in the pelvis. The bladder is unremarkable. IMPRESSION: Slight free fluid in the pelvis. GES 03/04/21: FINDINGS: At one hour, there is 75 percent of original activity within the stomach. At two hours after ingestion, 50 percent of original activity remains within the stomach. Normal at two hours following ingestion is between 19 and 52 percent. IMPRESSION: Borderline abnormally delayed gastric emptying following solid meal. Colonoscopy pathology 05/16/2020 Scooter Gunderson PA-C 12:00 PM 09/14/23 documented in this encounter 09-14-2023 History of Present illness Narrative Images from the original note were not included. [facility] [address] [facility] [address] Dept: [phone] Dept Loc: [phone] Visit type: New Reason for Visit: New Patient and Abdominal Pain Assessment and Plan Problem List Items Addressed This Visit None Visit Diagnoses Gastroparesis - Primary Relevant Orders FL upper GI w KUB [facility] Dietitian RD Chronic abdominal pain Relevant Orders H. pylori Stool Antigen FL upper GI w KUB History of esophagogastroduodenoscopy (EGD) History of colonoscopy History of abdominal surgery -Symptoms are acute on chronic. States these are similar to what she was experiencing starting in 2019 and has been evaluated with EGD, colonoscopy, gastric emptying study, CT. EGD unremarkable. Colonoscopy with probable microscopic colitis. GES shows borderline slow gastric emptying. -Will evaluate with FL UGI with KUB. EGD 2020 without acute finding. -Will evaluate with H. Pylori stool antigen. Socorro will need to hold PPI 2 weeks prior to completing study. -Will send referral to dietitian. -She is also s/p multiple abdominal surgery with lysis of adhesions. This may be a component of her abdominal pain. -Follow up in 3 months. No follow-ups on file. Advised patient to call office with new or worsening symptoms, questions, or concerns. Patient verbalized understanding and agreement of plan. Richardson Quintanilla is a 27 y.o. female who presents as a new patient. She was referred by Dr. Jean Odonnell DO regarding Abdominal pain, epigastric. She is new to provider but has been evaluated in the office before. Last office visit was 05/02/2021 with Naty Moran PA-C regarding generalized abdominal pain; nausea and vomiting; Lymphocytic colitis. HPI Has had chronic epigastric pain since late 2018 associated with nausea and emesis. S/p 05/04/2022 with Total Laparoscopic Hysterectomy, Cystoscopy. S/p Laparoscopy lysis of adhesions and laparoscopic appendectomy 03/26/2021. S/p cholecystectomy 2018-. S/p tubal ligation 2017. S/p surgeries has felt better, but since 05/2023 has recurrence of abdominal pain. This occurs postprandially. Can be made worse with movement, such as bending over or exercising. Has been nauseous with emesis. Last episode was yesterday. Denies hematemesis or coffee ground emesis. This is similar to last occurrence evaluated by Naty. Is taking pantoprazole 40 mg daily. Has had chronic lower abdominal pain since 2018. Has a BM once a day. Denies constipation or diarrhea. Denies hematochezia or dark stools. Weight is fluctuating, stable. EtOH: None. Tobacco: Vape. NSAIDs: Rarely PRN. Illicit drugs: None. Family History of Colon Cancer: None. Prior EGD/Colonoscopy: EGD 2020. Colonoscopy 2019. Prior Abdominal Surgery: Multiple as in HPI. Review of Systems Constitutional: Negative for appetite change, fatigue, fever and unexpected weight change. HENT: Negative for trouble swallowing. Respiratory: Negative for cough, choking and shortness of breath. Cardiovascular: Negative for chest pain. Gastrointestinal: Positive for abdominal pain, nausea and vomiting. Negative for abdominal distention, anal bleeding, blood in stool, constipation, diarrhea and rectal pain. Skin: Negative for color change, pallor and rash. Allergies Allergen Reactions Keflex [Cephalexin] Nausea And Vomiting Ondansetron Itching Itching and redness in arm when given Zofran IV Seasonal Ic [Octacosanol] Codeine Itching and Rash Gabapentin Other [place] like Heart was racing [place] like Heart was racing Latex Itching and Rash Other reaction(s): Hives Outpatient Medications Prior to Visit Medication Sig Dispense Refill Acetaminophen Extra Strength 500 MG tablet Take 1,000 mg by mouth every 6 hours as needed. albuterol 108 (90 Base) MCG/ACT inhaler Inhale 2 puffs every 6 hours as needed. albuterol 108 (90 Base) MCG/ACT inhaler inhale 2 puffs by mouth and INTO THE LUNGS every 6 hours if neede... (REFER TO PRESCRIPTION NOTES). dicyclomine (Bentyl) 10 MG capsule Take 2 capsules (20 mg) by mouth in the morning and 2 capsules (20 mg) at noon and 2 capsules (20 mg) in the evening and 2 capsules (20 mg) before bedtime. 240 capsule 0 fluticasone (Flonase) 50 MCG/ACT nasal spray 2 sprays in the morning. pantoprazole (ProtoNix) 40 MG EC tablet Take 1 tablet (40 mg) by mouth every morning (before breakfast). Do not crush, chew, or split. 30 tablet 3 No facility-administered medications prior to visit. Patient Active Problem List Diagnosis Date Noted Post-operative pain 05/05/2022 Priority: Medium Abnormal uterine bleeding (AUB) 03/12/2022 Priority: Medium Right lower quadrant abdominal pain 03/26/2021 Hydronephrosis with ureteropelvic junction (UPJ) obstruction 12/28/2020 Right upper quadrant abdominal pain 12/28/2020 Hematuria, gross 12/28/2020 Diarrhea 12/06/2020 Intractable abdominal pain 12/03/2020 Pelvic pain 02/22/2020 Abdominal pain 02/21/2020 Anemia 07/27/2019 Chronic constipation 07/27/2019 YVONNE (generalized anxiety disorder) 07/27/2019 Abnormal barium enema 05/14/2019 PFO (patent foramen ovale) 05/14/2019 Non-intractable vomiting 05/13/2019 LUQ abdominal pain 05/13/2019 Abnormal findings on imaging of biliary tract 05/13/2019 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 Precordial pain 07/12/2018 Tobacco abuse 03/17/2017 Syncope and collapse 03/15/2017 Asthma 03/05/2017 Allergic rhinitis 03/05/2017 Social History Tobacco Use Smoking status: Former Types: Cigarettes Smokeless tobacco: Former Tobacco comments: Vape Use Substance Use Topics Alcohol use: Yes Comment: social Family History Problem Relation Name Age of Onset Kidney disease Mother No Known Problems Father no contact with No Known Problems Sister No Known Problems Brother Objective BP 109/70 Pulse 82 Temp 36.8 C (98.2 F) Ht 5' 5 (1.651 m) Wt 155 lb (70.3 kg) BMI 25.79 kg/m Physical Exam Vitals reviewed. Constitutional: General: She is not in acute distress. Appearance: Normal appearance. She is not ill-appearing. Pulmonary: Effort: Pulmonary effort is normal. Breath sounds: Normal breath sounds. Abdominal: General: Bowel sounds are normal. There is no distension. Palpations: Abdomen is soft. There is no mass. Tenderness: There is abdominal tenderness (mild epigastric tenderness with deep palpation.). There is no guarding or rebound. Hernia: No hernia is present. Neurological: General: No focal deficit present. Mental Status: She is alert and oriented to person, place, and time. Psychiatric: Mood and Affect: Mood normal. Behavior: Behavior normal. Data Reviewed and Summarized Labs: Lab Results Component Value Date WBC 6.9 08/05/2023 HGB 13.9 08/05/2023 HCT 40.1 08/05/2023 PLT 360 08/05/2023 CHOL 126 07/25/2019 TRIG 109 07/25/2019 HDL 41 07/25/2019 ALT 20 08/05/2023 AST 28 08/05/2023 NA 140 08/05/2023 K 3.9 08/05/2023 CL 110 (H) 08/05/2023 CREATININE 0.65 08/05/2023 BUN 11 08/05/2023 CO2 21 (L) 08/05/2023 INR 1.0 02/20/2020 Lab Results Component Value Date WBC 6.9 08/05/2023 HGB 13.9 08/05/2023 HCT 40.1 08/05/2023 MCV 89.3 08/05/2023 PLT 360 08/05/2023 Chemistry Lab Results Component Value Date/Time NA 140 08/05/2023 1950 K 3.9 08/05/2023 1950 CL 110 (H) 08/05/2023 1950 CO2 21 (L) 08/05/2023 1950 CO2 23 09/15/2022 1119 BUN 11 08/05/2023 1950 BUN 8 09/15/2022 1119 CREATININE 0.65 08/05/20231949 CREATININE 0.75 09/15/2022 1119 Lab Results Component Value Date/Time CALCIUM 9.3 08/05/20231949 CALCIUM 9.9 09/15/2022 1119 ALKPHOS 56 08/05/20231949 ALKPHOS 48 09/15/2022 1119 AST 28 08/05/20231949 AST 13 09/15/2022 1119 ALT 20 08/05/20231949 ALT 9 09/15/2022 1119 BILITOT 0.4 08/05/20231949 BILITOT 0.5 09/15/2022 1119 Lab Results Component Value Date LIPASE 200 08/05/2023 Imaging/Testing: CT abdomen pelvis w contrast 05/17/2023 Reason For Exam: RLQ abdominal pain (Age >= 14y) CT abdomen and pelvis with contrast HISTORY: Right lower quadrant pain Protocol: 3 mm axial images with intravenous contrast Dose reduction was employed with automated exposure control. COMPARISON: 09/24/2022 The liver, spleen, pancreas, adrenals and kidneys are normal. The gallbladder has been removed. No evidence of bowel inflammation or bowel obstruction. The appendix has been removed. Slight free fluid in the pelvis. The bladder is unremarkable. IMPRESSION: Slight free fluid in the pelvis. GES 03/04/21: FINDINGS: At one hour, there is 75 percent of original activity within the stomach. At two hours after ingestion, 50 percent of original activity remains within the stomach. Normal at two hours following ingestion is between 19 and 52 percent. IMPRESSION: Borderline abnormally delayed gastric emptying following solid meal. Colonoscopy pathology 05/16/2020 Scooter Gunderson PA-C 12:00 PM 09/14/23 documented in this encounter [facility] [employer] 09-14-2023 Instructions Scooter Gunderson PA-C - 09/14/2023 11:20 AM EST --Please call office with any questions or concerns! [phone] --Schedule radiology test (Upper GI Series) for further evaluation of the symptoms. --Complete stool study, do not take Pantoprazole 40 mg for two week prior to completing stool study. Can start Pantoprazole after submitting stool study. --Complete referral to dietitian. --Please see handout provided regarding additional information. --Follow-up with PCP, and in GI clinic in about 3 months following the above evaluation and recommendations. The following attachments cannot be sent through Care Everywhere.Upper Gastrointestinal Series (Citizen [place])documented in this encounter 09-14-2023 Instructions Scooter Gunderson PA-C - 09/14/2023 11:20 AM EST --Please call office with any questions or concerns! [phone] --Schedule radiology test (Upper GI Series) for further evaluation of the symptoms. --Complete stool study, do not take Pantoprazole 40 mg for two week prior to completing stool study. Can start Pantoprazole after submitting stool study. --Complete referral to dietitian. --Please see handout provided regarding additional information. --Follow-up with PCP, and in GI clinic in about 3 months following the above evaluation and recommendations. The following attachments cannot be sent through Care Everywhere.Upper Gastrointestinal Series (Citizen [place])documented in this encounter 09-14-2023 Miscellaneous Notes Addended by: ROSALES BAZAN on: 11/15/2023 12:04 PM Modules accepted: Orders documented in this encounter 09-14-2023 Note Addended by: ROSALES BAZAN on: 11/15/2023 12:04 PM Modules accepted: Orders 08-05-2023 Emergency department Note EMERGENCY DEPARTMENT ENCOUNTER Pt Name: Socorro Gonsales Birthdate 1995 Date of evaluation: 08/05/2023 ED Provider: Jean Odonnell DO CHIEF COMPLAINT Chief Complaint Patient presents with Abdominal Pain HISTORY OF PRESENT ILLNESS (Location/Symptom, Timing/Onset, Context/Setting, Quality, Duration, Modifying Factors, Severity) Note limiting factors. I wore appropriate PPE for the entirety of this encounter. RAY Gonsales is a 27 y.o. female who presents to the emergency department with epigastric pain. The patient reports that symptoms have been ongoing over the past few days. She reports that the symptoms are chronic however she is having an acute episode that is worse than usual. Pain is described as sharp and severe in intensity. She admits to associated nausea, denies vomiting. She reports dark brown stools, and noticed some bright red blood when wiping following a bowel movement. She denies or urinary symptoms. Admits to prior history of cholecystectomy. Nursing Notes were reviewed. Limitations to history: Outside historians: REVIEW OF SYSTEMS Review of Systems Gastrointestinal: Positive for abdominal pain and nausea. PAST MEDICAL HISTORY Past Medical History: Diagnosis Date Asthma 2000 Pancreatitis 2019 SURGICAL HISTORY Past Surgical History: Procedure Laterality Date APPENDECTOMY 2020 CHOLECYSTECTOMY 2019 EXPLORATORY LAPAROTOMY 2019 HYSTERECTOMY 2021 KIDNEY SURGERY PARTIAL HYSTERECTOMY TUBAL LIGATION CURRENT MEDICATIONS Previous Medications ACETAMINOPHEN EXTRA STRENGTH 500 MG TABLET Take 1,000 mg by mouth every 6 hours as needed. ALBUTEROL 108 (90 BASE) MCG/ACT INHALER Inhale 2 puffs every 6 hours as needed. ALBUTEROL 108 (90 BASE) MCG/ACT INHALER inhale 2 puffs by mouth and INTO THE LUNGS every 6 hours if neede... (REFER TO PRESCRIPTION NOTES). DICYCLOMINE (BENTYL) 10 MG CAPSULE Take 2 capsules (20 mg) by mouth in the morning and 2 capsules (20 mg) at noon and 2 capsules (20 mg) in the evening and 2 capsules (20 mg) before bedtime. FLUTICASONE (FLONASE) 50 MCG/ACT NASAL SPRAY 2 sprays in the morning. PANTOPRAZOLE (PROTONIX) 40 MG EC TABLET Take 1 tablet (40 mg) by mouth every morning (before breakfast). Do not crush, chew, or split. ALLERGIES Keflex [cephalexin], Ondansetron, Seasonal ic [octacosanol], Codeine, Gabapentin, and Latex FAMILY HISTORY Family History Problem Relation Name Age of Onset Kidney disease Mother No Known Problems Father no contact with No Known Problems Sister No Known Problems Brother SOCIAL HISTORY Social History Socioeconomic History Marital status: Significant Other Tobacco Use Smoking status: Former Types: Cigarettes Smokeless tobacco: Former Tobacco comments: Vape Use Vaping Use Vaping Use: Every day Substances: Nicotine Substance and Sexual Activity Alcohol use: Yes Comment: social Drug use: Never Social History Narrative Single, 2 kids (4,6) 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 HENT: Head: Normocephalic. Eyes: Conjunctiva/sclera: Conjunctivae normal. Cardiovascular: Rate and Rhythm: Normal rate and regular rhythm. Pulmonary: Effort: Pulmonary effort is normal. Abdominal: General: Abdomen is flat. Tenderness: There is abdominal tenderness in the epigastric area. Musculoskeletal: General: No deformity. Skin: General: Skin is warm and dry. Psychiatric: Mood and Affect: Mood normal. DIAGNOSTIC RESULTS RADIOLOGY (Per Emergency Physician): Interpretation per the Radiologist below, if available at the time of this note: No orders to display LABS: Labs Reviewed BASIC METABOLIC PANEL - Abnormal Result Value SODIUM 140 POTASSIUM 3.9 CHLORIDE 110 (*) CARBON DIOXIDE 21 (*) UREA NITROGEN 11 CREATININE 0.65 GLUCOSE 107 (*) CALCIUM 9.3 ANION GAP 10 eGFR >90.0 CBC (HEMOGRAM) - Normal Auto WBC 6.9 RBC 4.49 Hemoglobin 13.9 Hematocrit 40.1 MCV 89.3 MCH 31.0 MCHC 34.7 RDW 12.3 Platelets 360 MPV 9.4 HEPATIC FUNCTION PANEL - Normal BILIRUBIN, TOTAL 0.4 BILIRUBIN, DIRECT 0.0 ALKALINE PHOSPHATASE 56 AST (SGOT) 28 ALT 20 ALBUMIN 4.7 TOTAL PROTEIN 7.8 LIPASE - Normal LIPASE 200 HCG QUANTITATIVE BLOOD HCG QUANTITATIVE <2 Narrative: Values in should double every 2 to 3 days for the first 6 weeks. Elevated concentrations of human chorionic gonadotropin (hCG) measured in the first trimester of are observed in normal , but may serve as an indication of chorionic carcinoma, hydatiform mole, or multiple . Decreasing hCG concentrations indicate threatened or missed , recent termination of , ectopic , gestosis or intrauterine . Kelley- and postmenopausal females may have detectable hCG concentrations (< or = to 14 mIU/mL) due to pituitary production of hCG. Serum follicle-stimulating hormone measurement may aid in ruling-out in this population. Cutoffs of greater than 20 to 45 mIU/mL have been suggested and are method dependent. False-elevations (called phantom human chorionic gonadotropin: hCG) may occur with patients who have human antianimal or heterophilic antibodies. Some specimens may not dilute linearly due to abnormal forms of hCG. Elevated hCG concentrations not associated with are found in patients with other diseases such as tumors of the germ cells, ovaries, bladder, pancreas, stomach, lungs, and liver. This test is not intended to detect or monitor tumors or gestational trophoblastic disease. All other labs were within normal range or not returned as of this dictation. EMERGENCY DEPARTMENT COURSE and DIFFERENTIAL DIAGNOSIS/MDM: Vitals: Vitals: 08/05/231934 BP: 122/83 Pulse: 98 Resp: 20 Temp: 36.8 C (98.2 F) SpO2: 100% Medications famotidine (Pepcid) 20 mg in sodium chloride (PF) 0.9 % 10 mL injection (20 mg IntraVENous Given 08/05/231950) aluminum & magnesium hydroxide-simethicone (Mylanta) 200-200-20 MG/5ML oral suspension 20 mL (20 mL Oral Given 08/05/231949) metoclopramide (Reglan) injection 10 mg (10 mg IntraVENous Given 08/05/231950) morphine injection 4 mg (4 mg IntraVENous Given 08/05/231950) MDM The patient presented with chief complaint of epigastric pain. The patient appears well at this time in no acute distress, vitals are stable. See history and physical exam above. Differential diagnose includes but is not limited to gastritis, pancreatitis, gastric ulcer, duodenal ulcer. The patient reports dark brown stools however denies any black stools. I am not concerned about upper GI bleed. The patient also reports some bright red blood when wiping after stool. Could be related to hemorrhoids versus diverticular bleed versus AVM. The patient was given medications as above for her acute symptoms. To aid in management, I performed an independent interpretation of all laboratory tests, EKG, imaging, and other diagnostics ordered. Blood counts, electrolytes, kidney function, hepatic function, and lipase are unremarkable. test is negative. The patient was updated on the results and questions were answered. She is currently resting comfortably, vitals are stable. Symptoms are likely gastric in etiology. The patient will be discharged with close follow-up to GI and PCP. She was already taking Protonix 40 mg daily. She will be given Carafate to use as needed. The patient demonstrated general understanding and was agreeable with the medical plan. I Jean Odonnell DO am the pneumatic system conveyor operator of record. PROCEDURES: Unless otherwise noted below, none Procedures FINAL IMPRESSION 1. Abdominal pain, epigastric DISPOSITION Discharge 08/05/2023 08:37:39 PM PATIENT REFERRED TO: [facility] Gastroenterology [address] [facility] [address] Schedule an appointment as soon as possible for a visit [facility] ED [address] [facility] [address] If symptoms worsen DISCHARGE MEDICATIONS: New Prescriptions SUCRALFATE (CARAFATE) 1 GM/10ML SUSPENSION Take 10 mL (1 g) by mouth every 6 hours as needed (epigastric discomfort). (Comment: Please note this report has been produced using speech recognition software and may contain errors related to that system including errors in grammar, punctuation, and spelling, as well as words and phrases that may be inappropriate. If there are any questions or concerns please feel free to contact the dictating provider for clarification.) Jean Odonnell DO (electronically signed) Emergency Medicine Provider Jean Odonnell DO 08/05/232040 Pt presents to the ED w c/o abd pain x 8 hours. Pain level 9/10. 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 Pt denies n/v/d. Pt denies urinary sx. Pt reports dark brown sticky stools today w blood noted after wiping only Pt given dc instructions and follow up care, pt verbalizes understanding. IV dc'd, cannula intact. Pt amb indep to dc area, home w sig other documented in this encounter 08-05-2023 Emergency department Triage note Pt presents to the ED w c/o abd pain x 8 hours. Pain level 9/10. 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 Pt denies n/v/d. Pt denies urinary sx. Pt reports dark brown sticky stools today w blood noted after wiping only 08-05-2023 Emergency department Triage note Pt given dc instructions and follow up care, pt verbalizes understanding. IV dc'd, cannula intact. Pt amb indep to dc area, home w sig other 08-05-2023 Physician Emergency department Note EMERGENCY DEPARTMENT ENCOUNTER Pt Name: Socorro Gonsales Birthdate 1995 Date of evaluation: 08/05/2023 ED Provider: Jean Odonnell DO CHIEF COMPLAINT Chief Complaint Patient presents with Abdominal Pain HISTORY OF PRESENT ILLNESS (Location/Symptom, Timing/Onset, Context/Setting, Quality, Duration, Modifying Factors, Severity) Note limiting factors. I wore appropriate PPE for the entirety of this encounter. HPI Socorro Gonsales is a 27 y.o. female who presents to the emergency department with epigastric pain. The patient reports that symptoms have been ongoing over the past few days. She reports that the symptoms are chronic however she is having an acute episode that is worse than usual. Pain is described as sharp and severe in intensity. She admits to associated nausea, denies vomiting. She reports dark brown stools, and noticed some bright red blood when wiping following a bowel movement. She denies or urinary symptoms. Admits to prior history of cholecystectomy. Nursing Notes were reviewed. Limitations to history: Outside historians: REVIEW OF SYSTEMS Review of Systems Gastrointestinal: Positive for abdominal pain and nausea. PAST MEDICAL HISTORY Past Medical History: Diagnosis Date Asthma 2000 Pancreatitis 2019 SURGICAL HISTORY Past Surgical History: Procedure Laterality Date APPENDECTOMY 2020 CHOLECYSTECTOMY 2019 EXPLORATORY LAPAROTOMY 2019 HYSTERECTOMY 2021 KIDNEY SURGERY PARTIAL HYSTERECTOMY TUBAL LIGATION CURRENT MEDICATIONS Previous Medications ACETAMINOPHEN EXTRA STRENGTH 500 MG TABLET Take 1,000 mg by mouth every 6 hours as needed. ALBUTEROL 108 (90 BASE) MCG/ACT INHALER Inhale 2 puffs every 6 hours as needed. ALBUTEROL 108 (90 BASE) MCG/ACT INHALER inhale 2 puffs by mouth and INTO THE LUNGS every 6 hours if neede... (REFER TO PRESCRIPTION NOTES). DICYCLOMINE (BENTYL) 10 MG CAPSULE Take 2 capsules (20 mg) by mouth in the morning and 2 capsules (20 mg) at noon and 2 capsules (20 mg) in the evening and 2 capsules (20 mg) before bedtime. FLUTICASONE (FLONASE) 50 MCG/ACT NASAL SPRAY 2 sprays in the morning. PANTOPRAZOLE (PROTONIX) 40 MG EC TABLET Take 1 tablet (40 mg) by mouth every morning (before breakfast). Do not crush, chew, or split. ALLERGIES Keflex [cephalexin], Ondansetron, Seasonal ic [octacosanol], Codeine, Gabapentin, and Latex FAMILY HISTORY Family History Problem Relation Name Age of Onset Kidney disease Mother No Known Problems Father no contact with No Known Problems Sister No Known Problems Brother SOCIAL HISTORY Social History Socioeconomic History Marital status: Significant Other Tobacco Use Smoking status: Former Types: Cigarettes Smokeless tobacco: Former Tobacco comments: Vape Use Vaping Use Vaping Use: Every day Substances: Nicotine Substance and Sexual Activity Alcohol use: Yes Comment: social Drug use: Never Social History Narrative Single, 2 kids (4,6) 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 HENT: Head: Normocephalic. Eyes: Conjunctiva/sclera: Conjunctivae normal. Cardiovascular: Rate and Rhythm: Normal rate and regular rhythm. Pulmonary: Effort: Pulmonary effort is normal. Abdominal: General: Abdomen is flat. Tenderness: There is abdominal tenderness in the epigastric area. Musculoskeletal: General: No deformity. Skin: General: Skin is warm and dry. Psychiatric: Mood and Affect: Mood normal. DIAGNOSTIC RESULTS RADIOLOGY (Per Emergency Physician): Interpretation per the Radiologist below, if available at the time of this note: No orders to display LABS: Labs Reviewed BASIC METABOLIC PANEL - Abnormal Result Value SODIUM 140 POTASSIUM 3.9 CHLORIDE 110 (*) CARBON DIOXIDE 21 (*) UREA NITROGEN 11 CREATININE 0.65 GLUCOSE 107 (*) CALCIUM 9.3 ANION GAP 10 eGFR >90.0 CBC (HEMOGRAM) - Normal Auto WBC 6.9 RBC 4.49 Hemoglobin 13.9 Hematocrit 40.1 MCV 89.3 MCH 31.0 MCHC 34.7 RDW 12.3 Platelets 360 MPV 9.4 HEPATIC FUNCTION PANEL - Normal BILIRUBIN, TOTAL 0.4 BILIRUBIN, DIRECT 0.0 ALKALINE PHOSPHATASE 56 AST (SGOT) 28 ALT 20 ALBUMIN 4.7 TOTAL PROTEIN 7.8 LIPASE - Normal LIPASE 200 HCG QUANTITATIVE BLOOD HCG QUANTITATIVE <2 Narrative: Values in should double every 2 to 3 days for the first 6 weeks. Elevated concentrations of human chorionic gonadotropin (hCG) measured in the first trimester of are observed in normal , but may serve as an indication of chorionic carcinoma, hydatiform mole, or multiple . Decreasing hCG concentrations indicate threatened or missed , recent termination of , ectopic , gestosis or intrauterine . Kelley- and postmenopausal females may have detectable hCG concentrations (< or = to 14 mIU/mL) due to pituitary production of hCG. Serum follicle-stimulating hormone measurement may aid in ruling-out in this population. Cutoffs of greater than 20 to 45 mIU/mL have been suggested and are method dependent. False-elevations (called phantom human chorionic gonadotropin: hCG) may occur with patients who have human antianimal or heterophilic antibodies. Some specimens may not dilute linearly due to abnormal forms of hCG. Elevated hCG concentrations not associated with are found in patients with other diseases such as tumors of the germ cells, ovaries, bladder, pancreas, stomach, lungs, and liver. This test is not intended to detect or monitor tumors or gestational trophoblastic disease. All other labs were within normal range or not returned as of this dictation. EMERGENCY DEPARTMENT COURSE and DIFFERENTIAL DIAGNOSIS/MDM: Vitals: Vitals: 08/05/23 1935 BP: 122/83 Pulse: 98 Resp: 20 Temp: 36.8 C (98.2 F) SpO2: 100% Medications famotidine (Pepcid) 20 mg in sodium chloride (PF) 0.9 % 10 mL injection (20 mg IntraVENous Given 08/05/231950) aluminum & magnesium hydroxide-simethicone (Mylanta) 200-200-20 MG/5ML oral suspension 20 mL (20 mL Oral Given 08/05/231949) metoclopramide (Reglan) injection 10 mg (10 mg IntraVENous Given 08/05/231950) morphine injection 4 mg (4 mg IntraVENous Given 08/05/231950) MDM The patient presented with chief complaint of epigastric pain. The patient appears well at this time in no acute distress, vitals are stable. See history and physical exam above. Differential diagnose includes but is not limited to gastritis, pancreatitis, gastric ulcer, duodenal ulcer. The patient reports dark brown stools however denies any black stools. I am not concerned about upper GI bleed. The patient also reports some bright red blood when wiping after stool. Could be related to hemorrhoids versus diverticular bleed versus AVM. The patient was given medications as above for her acute symptoms. To aid in management, I performed an independent interpretation of all laboratory tests, EKG, imaging, and other diagnostics ordered. Blood counts, electrolytes, kidney function, hepatic function, and lipase are unremarkable. test is negative. The patient was updated on the results and questions were answered. She is currently resting comfortably, vitals are stable. Symptoms are likely gastric in etiology. The patient will be discharged with close follow-up to GI and PCP. She was already taking Protonix 40 mg daily. She will be given Carafate to use as needed. The patient demonstrated general understanding and was agreeable with the medical plan. Carlie Odonnell DO am the pneumatic system conveyor operator of record. PROCEDURES: Unless otherwise noted below, none Procedures FINAL IMPRESSION 1. Abdominal pain, epigastric DISPOSITION Discharge 08/05/2023 08:37:39 PM PATIENT REFERRED TO: [facility] [address] [facility] [address] Schedule an appointment as soon as possible for a visit [facility] [address] [facility] [address] If symptoms worsen DISCHARGE MEDICATIONS: New Prescriptions SUCRALFATE (CARAFATE) 1 GM/10ML SUSPENSION Take 10 mL (1 g) by mouth every 6 hours as needed (epigastric discomfort). (Comment: Please note this report has been produced using speech recognition software and may contain errors related to that system including errors in grammar, punctuation, and spelling, as well as words and phrases that may be inappropriate. If there are any questions or concerns please feel free to contact the dictating provider for clarification.) Jean Odonnell DO (electronically signed) Emergency Medicine Provider Jean Odonnell DO 08/05/232040 08-05-2023 Telephone encounter Note S: [facility] regarding abdominal pain, nausea B: Onset of symptoms/concern today A: Patient c/o 9/10 severe upper abdominal pain (epigastric), states she is trying not to cry. Reports 7-8 dark brown, tarry stools in 24 hrs, shaky, dizziness, pain has been constant for hours, small amount bright red blood on toilet paper. R: [facility] nurse advised patient be seen in ER for evaluation. Instructed patient to have another adult take her. She verbalized understanding and will go to [facility] ED for evaluation. . Reason for Disposition SEVERE abdominal pain (e.g., excruciating) Answer Assessment - Initial Assessment Questions 1. APPEARANCE of BLOOD: What color is it? Is it passed separately, on the surface of the stool, or mixed in with the stool? Dark brown, tarry 2. AMOUNT: How much blood was passed? Quarter size bright red on toilet paper 3. FREQUENCY: How many times has blood been passed with the stools? Last movement- all have been tarry dark brown 4. ONSET: When was the blood first seen in the stools? (Days or weeks) today 5. DIARRHEA: Is there also some diarrhea? If Yes, ask: How many diarrhea stools in the past 24 hours? 7-8 6. CONSTIPATION: Do you have constipation? If Yes, ask: How bad is it? no 7. RECURRENT SYMPTOMS: Have you had blood in your stools before? If Yes, ask: When was the last time? and What happened that time? Yes, was on medication that made tarry before 8. BLOOD THINNERS: Do you take any blood thinners? (e.g., Coumadin/warfarin, Pradaxa/dabigatran, aspirin) no 9. OTHER SYMPTOMS: Do you have any other symptoms? (e.g., abdomen pain, vomiting, dizziness, fever) Nausea, dizzy, abdominal pain-mid epigastric 04/18 10. : Is there any chance you are ? When was your last menstrual period? no Protocols used: Rectal [id number] 08-05-2023 Miscellaneous Notes S: [facility] regarding abdominal pain, nausea B: Onset of symptoms/concern today A: Patient c/o 04/18 severe upper abdominal pain (epigastric), states she is trying not to cry. Reports 7-8 dark brown, tarry stools in 24 hrs, shaky, dizziness, pain has been constant for hours, small amount bright red blood on toilet paper. R: [facility] nurse advised patient be seen in ER for evaluation. Instructed patient to have another adult take her. She verbalized understanding and will go to [facility] ED for evaluation. . Reason for Disposition SEVERE abdominal pain (e.g., excruciating) Answer Assessment - Initial Assessment Questions 1. APPEARANCE of BLOOD: What color is it? Is it passed separately, on the surface of the stool, or mixed in with the stool? Dark brown, tarry 2. AMOUNT: How much blood was passed? Quarter size bright red on toilet paper 3. FREQUENCY: How many times has blood been passed with the stools? Last movement- all have been tarry dark brown 4. ONSET: When was the blood first seen in the stools? (Days or weeks) today 5. DIARRHEA: Is there also some diarrhea? If Yes, ask: How many diarrhea stools in the past 24 hours? 7-8 6. CONSTIPATION: Do you have constipation? If Yes, ask: How bad is it? no 7. RECURRENT SYMPTOMS: Have you had blood in your stools before? If Yes, ask: When was the last time? and What happened that time? Yes, was on medication that made tarry before 8. BLOOD THINNERS: Do you take any blood thinners? (e.g., Coumadin/warfarin, Pradaxa/dabigatran, aspirin) no 9. OTHER SYMPTOMS: Do you have any other symptoms? (e.g., abdomen pain, vomiting, dizziness, fever) Nausea, dizzy, abdominal pain-mid epigastric 04/18 10. : Is there any chance you are ? When was your last menstrual period? no Protocols used: Rectal [id number] documented in this encounter 07-23-2023 Instructions Leilani Alvarado PA - 07/23/2023 2:12 PM EST Rest, increase water intake Motrin or Tylenol as needed for fever or pain. Salt water gargles, chloraseptic spray or lozenges as needed for sore throat. Warm beverages, honey. Nasal saline spray as needed Cool mist humidifier at night A cold normally lasts 7-10 days. If your symptoms are lasting longer, develop fever, or worsening by that time instead of improving then return to clinic or follow up with PCP for re-evaluation. Tylenol (generic acetaminophen) 500 mg-2 tabs every 8 hrs. as needed for fever and aches Ibuprofen 600 mg (3-200mg tablets) every 6 hours -Mucinex (generic is fine) Guaifenesin 1200 mg twice daily to help with cough and to thin out mucus documented in this encounter [facility] 07-23-2023 History of Present illness Narrative This note was created using OpenVPNter. Subjective Socorro Gonsales is a 27 year old female. HPI 27-year-old female presents for congestion, headache, nausea, cough, sore throat, fever x 2 days. Patient states her symptoms started Wednesday night. She started with congestion, cough and nausea. She has had a few episodes of vomiting. She has sore throat. She has had low-grade fevers. 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 No known exposure to COVID. Did not do home COVID test. She does have history of asthma. Does not feel like she is wheezing more than normal. She has been using her inhaler as prescribed. PAST MEDICAL HISTORY Diagnosis Date Anemia anxiety Asthma PAST SURGICAL HISTORY Procedure Laterality Date LAPAROSCOPY W/RMVL ADNEXAL STRUCTURES Bilateral 04/28/2018 l/s bilateral salpingectomy PAST SURGICAL HISTORY OF wisdom teeth PAST SURGICAL HISTORY OF 03/2020 exploratory laparoscopy VAGINAL HYSTERECTOMY 2021 ALLERGIES Codeine, Gabapentin, Latex, Seasonal Allergies, and Zofran [Ondansetron] MEDICATIONS fluticasone (FLONASE) 50 mcg/actuation nasal spray Use 2 Sprays in each nostril once daily. Rinse mouth after use. albuterol HFA (PROVENTIL HFA, VENTOLIN HFA) 90 mcg/actuation inhaler Inhale 2 Puffs as instructed every 6 hours as needed for wheezing/shortness of breath. FAMILY HISTORY Problem Relation Age of Onset Heart Mother Seizures Mother Stroke Mother Multiple Sclerosis Mother Psychiatry Sister Manic Depression Hypertension Maternal Grandfather Breast Cancer Maternal Aunt Hypertension Maternal Uncle Social History Tobacco Use Smoking status: Former Years: 3 Types: Cigarettes Smokeless tobacco: Never Substance Use Topics Alcohol use: Yes Comment: rarely Drug use: No PAST MEDICAL HISTORY Diagnosis Date Anemia anxiety Asthma PAST SURGICAL HISTORY Procedure Laterality Date LAPAROSCOPY W/RMVL ADNEXAL STRUCTURES Bilateral 04/28/2018 l/s bilateral salpingectomy PAST SURGICAL HISTORY OF wisdom teeth PAST SURGICAL HISTORY OF 03/2020 exploratory laparoscopy VAGINAL HYSTERECTOMY 2021 ALLERGIES Codeine, Gabapentin, Latex, Seasonal Allergies, and Zofran [Ondansetron] MEDICATIONS fluticasone (FLONASE) 50 mcg/actuation nasal spray Use 2 Sprays in each nostril once daily. Rinse mouth after use. albuterol HFA (PROVENTIL HFA, VENTOLIN HFA) 90 mcg/actuation inhaler Inhale 2 Puffs as instructed every 6 hours as needed for wheezing/shortness of breath. FAMILY HISTORY Problem Relation Age of Onset Heart Mother Seizures Mother Stroke Mother Multiple Sclerosis Mother Psychiatry Sister Manic Depression Hypertension Maternal Grandfather Breast Cancer Maternal Aunt Hypertension Maternal Uncle Social History Tobacco Use Smoking status: Former Years: 3 Types: Cigarettes Smokeless tobacco: Never Substance Use Topics Alcohol use: Yes Comment: rarely Drug use: No Review of Systems Constitutional: Positive for chills and fever. HENT: Positive for congestion and sore throat. Negative for ear pain. Respiratory: Positive for cough. Negative for shortness of breath. Cardiovascular: Negative for chest pain. Gastrointestinal: Positive for nausea and vomiting. Negative for abdominal pain and diarrhea. Musculoskeletal: Positive for myalgias. Neurological: Positive for headaches. Objective BP 98/68 Pulse 89 Temp 37.3 C (99.2 F) Resp 21 Wt 69.5 kg (153 lb 3.2 oz) LMP 03/25/2022 SpO2 99% BMI 25.49 kg/m Physical Exam Vitals and nursing note reviewed. Constitutional: General: She is not in acute distress. Appearance: Normal appearance. She is not toxic-appearing. HENT: Right Ear: Tympanic membrane and ear canal normal. Left Ear: Tympanic membrane and ear canal normal. Nose: Congestion present. Mouth/Throat: Mouth: Mucous membranes are moist. Pharynx: Posterior oropharyngeal erythema present. No oropharyngeal exudate. Tonsils: No tonsillar exudate or tonsillar abscesses. 1+ on the right. 1+ on the left. Eyes: Conjunctiva/sclera: Conjunctivae normal. Cardiovascular: Rate and Rhythm: Normal rate and regular rhythm. Pulmonary: Effort: Pulmonary effort is normal. Breath sounds: Normal breath sounds. No wheezing, rhonchi or rales. Neurological: Mental Status: She is alert. Assessment and Plan ASSESSMENT/PLAN: 1. Flu-like symptoms - ICD9: 780.99, ICD10: R68.89 (primary diagnosis) -Currently in window for Tamiflu until this evening. Flulike symptoms, higher suspicion for influenza. Will get rapid swab. - INFLUENZA A&B MOLECULAR (POC) -Flu test negative. Offered COVID swab, but patient declines. -Recommend supportive treatment at home. -History of asthma. Rx for prednisone if symptoms or wheezing worsens. Lungs clear on exam today. 2. Sore throat - ICD9: 462, ICD10: J02.9 - suspect viral - Group A strep molecular testing negative - Discussed supportive care treatment with fluids, rest and analgesia. - STREP A MOLECULAR (POC) Diagnosis and treatment plan were discussed and questions were answered to the patient's satisfaction. Pt acknowledged understanding of concepts and follow up plan. Specific signs and symptoms that would indicate the need for higher level of care were discussed in detail warranting prompt ER evaluation. MALI Napoles documented in this encounter [facility] 07-15-2023 History of Present illness Narrative Images from the original note were not included. General Surgery History and Physical Lenin De Los Santos MD, MPH Patient ID: Socorro Gonsales [id number] 27 y.o. 1995 CHIEF COMPLAINT: Chief Complaint Patient presents with Follow-up F/U Abdominal Pain HPI: Socorro Gonsales is a 27 y.o. female who presents with follow up on abdominal pain. Initially seen for bilateral nipple discharge that was extensively evaluated with imaging and has since resolved. She follows up in office for generalized abdominal pain that she had been having. She was started on PPI and bentyl at last office appointment on 06/08/23. Since last office appointment she has been taking PPI. She stopped bentyl due to concern nausea and side effects. Since last office appointment she reports pain significantly improved. She reports went from pain daily with eating now to mild pain once a week. She reports no further Nausea or emesis. She reports bowel habits improved and goes every day to every other day and her stools are now more consistent and formed. She has been taking fiber daily to help with this. She overall feels significantly better. She does occasionally still have some urinary symptoms where she has some sensation that she does not fully evacuate her bladder. She has had hysterectomy in addition to her other surgeries and thinks that much of her urinary complaints may be related to anatomical change, kids, etc. Past Medical History: Diagnosis Date Asthma 2001 Pancreatitis 2019 Past Surgical History: Procedure Laterality Date APPENDECTOMY 2020 CHOLECYSTECTOMY 2020 EXPLORATORY LAPAROTOMY 2019 HYSTERECTOMY 2021 KIDNEY SURGERY PARTIAL HYSTERECTOMY TUBAL LIGATION Medications Prior to Visit: Prior to Admission medications Medication Sig Start Date End Date Taking? Authorizing Provider Acetaminophen Extra Strength 500 MG tablet Take 1,000 mg by mouth every 6 hours as needed. 05/05/22 Yes Historical Provider, albuterol 108 (90 Base) MCG/ACT inhaler Inhale 2 puffs every 6 hours as needed. 08/17/20 Yes Historical Provider, albuterol 108 (90 Base) MCG/ACT inhaler inhale 2 puffs by mouth and INTO THE LUNGS every 6 hours if neede... (REFER TO PRESCRIPTION NOTES). 06/03/22 Yes Historical Provider, dicyclomine (Bentyl) 10 MG capsule Take 2 capsules (20 mg) by mouth in the morning and 2 capsules (20 mg) at noon and 2 capsules (20 mg) in the evening and 2 capsules (20 mg) before bedtime. 06/08/23 06/07/24 Yes Lenin De Los Santos MD pantoprazole (ProtoNix) 40 MG EC tablet Take 1 tablet (40 mg) by mouth every morning (before breakfast). Do not crush, chew, or split. 06/08/23 10/06/23 Yes Lenin De Los Santos MD psyllium (Metamucil) 58.6 % packet Take 1 packet (3.4 g of fiber) by mouth daily. Mix and drink with at least 8 ounces of water or juice. 06/08/23 07/15/23 Yes Lenin De Los Santos MD Allergies: Keflex [cephalexin], Ondansetron, Seasonal ic [octacosanol], Codeine, Gabapentin, and Latex Social History Socioeconomic History Marital status: Significant Other Tobacco Use Smoking status: Former Types: Cigarettes Smokeless tobacco: Former Tobacco comments: Vape Use Vaping Use Vaping Use: Every day Substances: Nicotine Substance and Sexual Activity Alcohol use: Yes Comment: social Drug use: Never Social History Narrative Single, 2 kids (4,6) work [employer], [employer] Family History Problem Relation Name Age of Onset Kidney disease Mother No Known Problems Father no contact with No Known Problems Sister No Known Problems Brother Review of Systems: Review of Systems Constitutional: Negative for appetite change, chills, fatigue, fever and unexpected weight change. Respiratory: Negative for cough, shortness of breath and wheezing. Cardiovascular: Negative for chest pain and palpitations. Gastrointestinal: Positive for abdominal pain. Negative for constipation, diarrhea, nausea, rectal pain and vomiting. Skin: Negative for rash and wound. Neurological: Negative for seizures and syncope. Hematological: Negative for adenopathy. Does not bruise/bleed easily. Physical Exam: BP 113/72 Pulse 69 Temp 36.3 C (97.4 F) (Temporal) Ht 5' 6 (1.676 m) Wt 150 lb 3.2 oz (68.1 kg) BMI 24.24 kg/m Physical Exam Constitutional: Appearance: Normal appearance. HENT: Head: Normocephalic. Eyes: Pupils: Pupils are equal, round, and reactive to light. Cardiovascular: Rate and Rhythm: Normal rate and regular rhythm. Pulses: Normal pulses. Pulmonary: Effort: Pulmonary effort is normal. No respiratory distress. Breath sounds: Normal breath sounds. No rales. Abdominal: General: Bowel sounds are normal. Palpations: Abdomen is soft. There is no mass. Tenderness: There is no abdominal tenderness. Musculoskeletal: General: No swelling or tenderness. Cervical back: Normal range of motion. No tenderness. Lymphadenopathy: Cervical: No cervical adenopathy. Skin: General: Skin is warm and dry. Neurological: Mental Status: She is alert and oriented to person, place, and time. Psychiatric: Behavior: Behavior normal. No orders of the defined types were placed in this encounter. Impression/Treatment Plan: Socorro Gonsales is a 27 y.o. female originally presenting with bilateral nipple discharge which was extensively worked up and problem resolved. She then presented with abdominal pain, fluctuating and variable stooling pattern. -Continue PPI daily for abdominal symptoms. Overall abdominal pain significantly improved with this medication. -Fiber therapy daily - explained that can titrate and see how much is best for her, she may try to increase this for even more consistent soft and bulky stools. -OTC miralax or stool softeners PRN -Simethicone PRN -Regarding her urinary symptoms, explained that urology of obstetrician gynecologist may consider functional studies to investigate this in the future if it bothers her further. She will look into this if continues to bother her. -Follow up General Surgery PRN Patient counseled on risks, benefits, and alternatives of treatment plan at length while in the office today. Patient states an understandingand willingness to proceed with plan. I spent 30 minutes total on the day of the visit obtaining history, reviewing imaging and laboratory results, performing a physical exam and providing patient education and counseling. Lenin De Los Santos MD 07/15/2023 10:01 AM RB documented in this encounter 07-08-2023 History of Present illness Narrative Radiology Service Progress Note PATIENT NAME: Socorro Gonsales DATE OF SERVICE: July 08, 2023 TIME: 8:03 AM PATIENT IDENTITY VERIFICATION COMPLETED USING TWO (2) IDENTIFIERS: Name and Date of confirmed by patient verbally. FALL SCREENING: Has the patient had 2 falls in the last year or 1 fall with injury or currently using an Ambulatory Assistive Device (Walker, Cane, Wheelchair, Crutches, etc.)? No PATIENT GENDER DATA: Female. status: : No status: NO. PATIENT RELEVANT IMPLANT DATA REVIEWED: Yes RADIOLOGY DEPARTMENT: General X-ray: Exam(s) Completed: Chest X-Ray PERIPHERAL IV DATA: Not applicable SIGNED BY: RT Lulu(R) July 08, 2023 8:03 AM documented in this encounter [facility] 07-08-2023 History of Present illness Narrative Subjective HPI Nontoxic-appearing female presents to urgent care with chief complaint of upper respiratory tract like infection. Duration of symptoms 1 week. Associated symptoms sore throat, nasal congestion, nasal discharge and nonproductive cough. Was seen here on Wednesday. Diagnosed with viral bronchitis. Placed on Tessalon Perles prednisone and albuterol. This helped some. Patient states recent sick contacts with similar signs and symptoms. Patient denies any productive cough, fever, chest pain, shortness of breath, pleuritic pain, rash, abdominal pain, nausea, vomiting or change in bowel or bladder habit. Denies chance of . Is not breast-feeding. Past medical history prescription medications allergies reviewed. .Patient presents with: Cough: Sore throat, chest congestion x 1 week PAST MEDICAL HISTORY Diagnosis Date Anemia anxiety Asthma PAST SURGICAL HISTORY Procedure Laterality Date LAPAROSCOPY W/RMVL ADNEXAL STRUCTURES Bilateral 04/28/2018 l/s bilateral salpingectomy PAST SURGICAL HISTORY OF wisdom teeth PAST SURGICAL HISTORY OF 03/2020 exploratory laparoscopy VAGINAL HYSTERECTOMY 2021 ALLERGIES Codeine, Gabapentin, Latex, Seasonal Allergies, and Zofran [Ondansetron] MEDICATIONS fluticasone (FLONASE) 50 mcg/actuation nasal spray Use 2 Sprays in each nostril once daily. Rinse mouth after use. benzonatate (TESSALON PERLE) 100 mg capsule Take 2 capsules by mouth three times a day as needed for up to 10 days. albuterol HFA (PROVENTIL HFA, VENTOLIN HFA) 90 mcg/actuation inhaler Inhale 2 Puffs as instructed every 6 hours as needed for wheezing/shortness of breath. predniSONE (DELTASONE) 20 mg tablet Take 2 tablets by mouth once daily for 5 days. Take daily with food. (Patient not taking: Reported on 07/08/2023) FAMILY HISTORY Problem Relation Age of Onset Heart Mother Seizures Mother Stroke Mother Multiple Sclerosis Mother Psychiatry Sister Manic Depression Hypertension Maternal Grandfather Breast Cancer Maternal Aunt Hypertension Maternal Uncle Social History Tobacco Use Smoking status: Former Years: 3 Types: Cigarettes Smokeless tobacco: Never Substance Use Topics Alcohol use: Yes Comment: rarely Drug use: No BP 98/62 Pulse 72 Temp 36.7 C (98.1 F) Resp 21 Wt 71.5 kg (157 lb 9.6 oz) LMP 03/25/2022 SpO2 98% BMI 26.23 kg/m Review of Systems Constitutional: Positive for malaise/fatigue. Negative for chills and fever. HENT: Positive for congestion, sinus pain and sore throat. Negative for ear discharge and ear pain. Eyes: Negative for blurred vision, pain, discharge and redness. Respiratory: Positive for cough. Negative for hemoptysis, sputum production, shortness of breath, wheezing and stridor. Cardiovascular: Negative for chest pain. Gastrointestinal: Negative for abdominal pain, diarrhea, nausea and vomiting. Musculoskeletal: Positive for myalgias. Skin: Negative for itching and rash. Neurological: Negative for dizziness and headaches. Objective Physical Exam Constitutional: General: She is not in acute distress. Appearance: She is not diaphoretic. HENT: Head: Normocephalic. Jaw: No trismus, tenderness, swelling or pain on movement. Right Ear: Tympanic membrane, ear canal and external ear normal. Left Ear: Tympanic membrane, ear canal and external ear normal. Nose: Congestion present. Mouth/Throat: Mouth: Mucous membranes are moist. Pharynx: Oropharynx is clear. Uvula midline. No pharyngeal swelling, oropharyngeal exudate, posterior oropharyngeal erythema or uvula swelling. Eyes: Conjunctiva/sclera: Conjunctivae normal. Pupils: Pupils are equal, round, and reactive to light. Cardiovascular: Rate and Rhythm: Normal rate and regular rhythm. Heart sounds: Normal heart sounds. Pulmonary: Effort: Pulmonary effort is normal. No tachypnea, accessory muscle usage or respiratory distress. Breath sounds: Normal breath sounds. No stridor. No wheezing, rhonchi or rales. Abdominal: General: There is no distension. Palpations: Abdomen is soft. Tenderness: There is no abdominal tenderness. There is no guarding or rebound. Musculoskeletal: Cervical back: Normal range of motion and neck supple. No edema, erythema, rigidity or tenderness. No pain with movement. Normal range of motion. Lymphadenopathy: Cervical: No cervical adenopathy. Skin: General: Skin is warm and dry. Neurological: Mental Status: She is alert and oriented to person, place, and time. ASSESSMENT/PLAN: 1. Sore throat - ICD9: 462, ICD10: J02.9 (primary diagnosis) - STREP A MOLECULAR (POC) 2. Acute cough - ICD9: 786.2, ICD10: R05.1 - XR CHEST 2V FRONTAL/LAT 3. Viral bronchitis - ICD9: 466.0, ICD10: J20.8 IMPRESSION: No acute radiographic abnormality. Strep test negative. No abnormal findings noted on x-ray. Treat as viral bronchitis. Placed on Mucinex. Patient was educated on supportive therapies. Patient will follow up with primary care provider as needed. Patient was instructed to immediately proceed to emergency room for any new, worsening, or symptoms lasting longer than anticipated. The patient's clinical presentation is otherwise unremarkable at this time. Based on exam and clinical finding, the patient is stable for discharge. Plan of care was discussed with patient. Patient verbalizes understanding and agrees to plan of care. This note was generated using [employer] software. It may contain errors in wording, punctuation, or spelling. Jaguar Person APRN.JORDANA documented in this encounter [facility] 07-04-2023 History of Present illness Narrative Subjective Cough Associated symptoms include headaches, sore throat, myalgias, shortness of breath and wheezing. Pertinent negatives include no chest pain and no chills. Socorro Gonsales is a 27 year old female who presents with cough, sore throat, body aches, headache, shortness of breath. She has had symptoms for the past 3 days. She did a COVID test on day one and day 3 of symptoms which were negative. She has not had a fever. Her mother in law has bronchitis and sinusitis currently and Socorro has been visiting her mother in the ICU recently so may have been exposed to illness in the hospital. She has been taking tylenol and theraflu and using her albuterol inhaler. Review of Systems Constitutional: Positive for malaise/fatigue. Negative for chills and fever. HENT: Positive for congestion and sore throat. Respiratory: Positive for cough, sputum production, shortness of breath and wheezing. Cardiovascular: Negative for chest pain. Gastrointestinal: Negative for diarrhea, nausea and vomiting. Musculoskeletal: Positive for myalgias. Neurological: Positive for headaches. BP 111/74 Pulse 60 Temp 36.4 C (97.5 F) Resp 18 Wt 70.4 kg (155 lb 3.2 oz) LMP 03/25/2022 SpO2 98% BMI 25.83 kg/m PAST MEDICAL HISTORY Diagnosis Date Anemia anxiety Asthma PAST SURGICAL HISTORY Procedure Laterality Date LAPAROSCOPY W/RMVL ADNEXAL STRUCTURES Bilateral 04/28/2018 l/s bilateral salpingectomy PAST SURGICAL HISTORY OF wisdom teeth PAST SURGICAL HISTORY OF 03/2020 exploratory laparoscopy VAGINAL HYSTERECTOMY 2021 ALLERGIES Codeine, Gabapentin, Latex, Seasonal Allergies, and Zofran [Ondansetron] MEDICATIONS predniSONE (DELTASONE) 20 mg tablet Take 2 tablets by mouth once daily for 5 days. Take daily with food. fluticasone (FLONASE) 50 mcg/actuation nasal spray Use 2 Sprays in each nostril once daily. Rinse mouth after use. benzonatate (TESSALON PERLE) 100 mg capsule Take 2 capsules by mouth three times a day as needed for up to 10 days. Inhalational Spacing Device 1 Device one time only for 1 dose. albuterol HFA (PROVENTIL HFA, VENTOLIN HFA) 90 mcg/actuation inhaler Inhale 2 Puffs as instructed every 6 hours as needed for wheezing/shortness of breath. FAMILY HISTORY Problem Relation Age of Onset Heart Mother Seizures Mother Stroke Mother Multiple Sclerosis Mother Psychiatry Sister Manic Depression Hypertension Maternal Grandfather Breast Cancer Maternal Aunt Hypertension Maternal Uncle Social History Tobacco Use Smoking status: Former Years: 3 Types: Cigarettes Smokeless tobacco: Never Substance Use Topics Alcohol use: Yes Comment: rarely Drug use: No Objective Physical Exam Vitals and nursing note reviewed. Constitutional: General: She is not in acute distress. Appearance: Normal appearance. HENT: Right Ear: Tympanic membrane, ear canal and external ear normal. Left Ear: Tympanic membrane, ear canal and external ear normal. Nose: Nose normal. Mouth/Throat: Pharynx: Uvula midline. No oropharyngeal exudate or posterior oropharyngeal erythema. Cardiovascular: Rate and Rhythm: Normal rate and regular rhythm. Heart sounds: Normal heart sounds. Pulmonary: Effort: Pulmonary effort is normal. No respiratory distress. Breath sounds: Examination of the right-upper field reveals wheezing. Examination of the left-upper field reveals wheezing. Examination of the right-lower field reveals wheezing. Examination of the left-lower field reveals wheezing. Wheezing present. No rhonchi or rales. Musculoskeletal: Cervical back: Neck supple. Lymphadenopathy: Cervical: No cervical adenopathy. Skin: General: Skin is warm and dry. Findings: No erythema or rash. Neurological: Mental Status: She is alert. ASSESSMENT/PLAN: 1. Viral bronchitis - ICD9: 466.0, ICD10: J20.8 - PREDNISONE 20 MG TABLET - FLUTICASONE PROPIONATE 50 MCG/ACTUATION NASAL SPRAY,SUSPENSION - BENZONATATE 100 MG CAPSULE - INHALATIONAL SPACING DEVICE - ALBUTEROL SULFATE HFA 90 MCG/ACTUATION AEROSOL INHALER - Follow-up with your PCP in 3-5 days if symptoms have not improved or sooner if symptoms worsen - Discussed red flags and need for immediate medical evaluation if any occur. - Discussed supportive care treatment with fluids, rest and analgesia. - Discussed expected course of illness Bro Lucio APRN.JORDANA documented in this encounter [facility] 07-04-2023 Instructions Bro Lucio APRN.JORDANA - 07/04/2023 8:40 AM EST ASSESSMENT/PLAN: 1. Viral bronchitis - ICD9: 466.0, ICD10: J20.8 - PREDNISONE 20 MG TABLET - FLUTICASONE PROPIONATE 50 MCG/ACTUATION NASAL SPRAY,SUSPENSION - BENZONATATE 100 MG CAPSULE - INHALATIONAL SPACING DEVICE - ALBUTEROL SULFATE HFA 90 MCG/ACTUATION AEROSOL INHALER - Follow-up with your PCP in 3-5 days if symptoms have not improved or sooner if symptoms worsen - Discussed red flags and need for immediate medical evaluation if any occur. - Discussed supportive care treatment with fluids, rest and analgesia. - Discussed expected course of illness Bro Lucio APRN.CNP ACUTE BRONCHITIS: You have acute bronchitis. This means the airway passages in your lungs are inflamed. Bronchitis may be caused by viruses or bacteria. Inhaling cigarette smoke will always make it worse. Exposure to irritating chemicals or second hand smoke as well as allergies can contribute to bronchitis. Repeat episodes of bronchitis may cause lifelong lung problems. Acute bronchitis is usually treated with rest, fluids, cough medicine, and possibly antibiotics or inhaled medicine to open up the small airways. It is very important that you avoid smoke and drink increased amounts of fluids. A cool air vaporizer can help thin bronchial secretions. This makes it easier to cough and clear your chest. If you are a cigarette smoker, consider using nicotine gum or skin patches to help you withdraw. Recovery from bronchitis is often slow, but you should start feeling better after 2-3 days of treatment. Please call your doctor or return here if you have any of the following symptoms: Increased fever, chills, or chest pain. Severe shortness of breath or bloody sputum. Do not improve after 3 days of proper treatment. documented in this encounter [facility] 06-08-2023 History of Present illness Narrative Images from the original note were not included. General Surgery History and Physical Lenin De Los Santos MD, MPH Patient ID: oScorro Gonsales [id number] 27 y.o. 1995 CHIEF COMPLAINT: Chief Complaint Patient presents with Follow-up F/U abdominal pain 2 week follow up HPI: Socorro Gonsales is a 27 y.o. female who originally presented to me with bilateral nipple discharge - this was thoroughly evaluated with MRI without identifiable pathologic source and was deemed physiologic and the discharge overall improved. Interestingly, she also was seen just prior to her breast follow up visit in the emergency department with abdominal pain and evidence of right sided colonic constipation. She was going to be referred to a general surgeon and now presents to my office for evaluation of this as well and ongoing follow up. Patient states that abdominal pain is localized to RLQ as well as epigastrium. This was made worse by eating and she notes pain and pressure about 30 min after eating. Her surgical history is notable for cholecystectomy, resection of choledochocele (Dr. Sales), as well as BEBE and appendectomy with Dr. Vogel thereafter. She has also had a hysterectomy. CTAP from ED was personally reviewed with patient demonstrating significant fecal burden in cecum and ascending colon. At her last visit, we tried thorough bowel prep and even performed a colonoscopy prep cleanse given concern for contribution of significant constipation. She tolerated this well and was appropriately decompressed from a stool burden standpoint; however, she noticed ongoing mid-abdominal, epigastric, and R abdominal pain, worse with food. She still had intermittent constipation and is starting fiber. She really wants to avoid any additional surgical interventions and we have been exploring a step-up progressive approach to address these concerns. PMH notable for pancreatitis, asthma, choledochocele. PSH notable for exploratory laparotomy, cholecystectomy, appendectomy, hysterectomy. Patient denies blood thinning medications. CTAP 05/17/23: HISTORY: Right lower quadrant pain Protocol: 3 mm axial images with intravenous contrast Dose reduction was employed with automated exposure control. COMPARISON: 09/24/2022 The liver, spleen, pancreas, adrenals and kidneys are normal. The gallbladder has been removed. No evidence of bowel inflammation or bowel obstruction. The appendix has been removed. Slight free fluid in the pelvis. The bladder is unremarkable. IMPRESSION: Slight free fluid in the pelvis. TVUS 05/18/23: IMPRESSION: Unremarkable ovaries. No other adnexal mass. Trace amount of free fluid again noted Past Medical History: Diagnosis Date Asthma 2001 Pancreatitis 2019 Past Surgical History: Procedure Laterality Date APPENDECTOMY 2020 CHOLECYSTECTOMY 2020 EXPLORATORY LAPAROTOMY 2019 HYSTERECTOMY 2021 KIDNEY SURGERY PARTIAL HYSTERECTOMY TUBAL LIGATION Medications Prior to Visit: Prior to Admission medications Medication Sig Start Date End Date Taking? Authorizing Provider Acetaminophen Extra Strength 500 MG tablet Take 1,000 mg by mouth every 6 hours as needed. 05/05/22 Historical Provider, albuterol 108 (90 Base) MCG/ACT inhaler Inhale 2 puffs every 6 hours as needed. 08/17/20 Historical Provider, albuterol 108 (90 Base) MCG/ACT inhaler inhale 2 puffs by mouth and INTO THE LUNGS every 6 hours if neede... (REFER TO PRESCRIPTION NOTES). 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 HENT: Negative for hearing loss, nosebleeds, sneezing, sore throat, trouble swallowing and voice change. Respiratory: Negative for cough, shortness of breath and wheezing. Cardiovascular: Negative for chest pain and palpitations. Gastrointestinal: Positive for abdominal pain (R mid-abdomen, epigastric), constipation and nausea (after eating, with pain, worse after meals). Negative for diarrhea (did have copious loose stools during trial of colonoscopy miralax bowel prep), rectal pain and vomiting. Endocrine: Negative for polydipsia and polyuria. Genitourinary: Negative for difficulty urinating (Still occasionally feels like lacking complete bladder evacuation), dysuria, frequency, hematuria and urgency. Skin: Negative for color change, rash and wound. Allergic/Immunologic: Negative for immunocompromised state. Neurological: Negative for seizures and syncope. Hematological: Negative for adenopathy. Does not bruise/bleed easily. Psychiatric/Behavioral: Negative for agitation and confusion. Physical Exam: BP 108/66 Pulse 60 Ht 5' 6 (1.676 m) Wt 153 lb 12.8 oz (69.8 kg) BMI 24.82 kg/m Physical Exam Constitutional: General: She is not in acute distress. Appearance: Normal appearance. She is normal weight. She is not ill-appearing, toxic-appearing or diaphoretic. HENT: Head: Normocephalic. Right Ear: External ear normal. Left Ear: External ear normal. Eyes: Extraocular Movements: Extraocular movements intact. Pupils: Pupils are equal, round, and reactive to light. Cardiovascular: Rate and Rhythm: Normal rate and regular rhythm. Pulses: Normal pulses. Pulmonary: Effort: Pulmonary effort is normal. No respiratory distress. Breath sounds: Normal breath sounds. No rales. Chest: Comments: Breast exam deferred today given lacking complaints and no findings on imaging as well as patient preference. Abdominal: General: Bowel sounds are normal. Palpations: Abdomen is soft. There is no mass. Tenderness: There is abdominal tenderness (R-mid abdomen and centrally with extension into epigastrium). Musculoskeletal: General: No swelling or tenderness. Cervical back: Normal range of motion. No tenderness. Lymphadenopathy: Cervical: No cervical adenopathy. Skin: General: Skin is warm and dry. Coloration: Skin is not jaundiced or pale. Findings: No bruising or erythema. Neurological: Mental Status: She is alert and oriented to person, place, and time. Psychiatric: Behavior: Behavior normal. No orders of the defined types were placed in this encounter. Impression/Treatment Plan: Socorro Gonsales is a 27 y.o. female originally presenting with bilateral nipple discharge which was extensively worked up and problem resolved. She then presented with abdominal pain, constipation. -Will plan trial of both PPI qday (40mg) and Bentyl 10mg QID - she was on these medications previously during her surgical endeavors and noted that she had good response in the past. We will try these out and see how she does with them. Otherwise, her imaging has been thoroughly reviewed and aside from some of her surgical adhesions, I do not appreciate an obvious cause for her complaints. May require endoscopic evaluation in the future. She has had a colonoscopy in the recent past as well. Bile reflux is also a consideration; however, patient did not undergo biliary reconstruction, sounds like just resection of the choledochocele. -Fiber therapy once daily -OTC miralax or stool softeners PRN -I will see her back in the office in 1 month - if she has further progressive complaints she will not hesitate to give my office a call. Patient counseled on risks, benefits, and alternatives of treatment plan at length while in the office today. Patient states an understandingand willingness to proceed with plan. I spent 30 minutes total on the day of the visit obtaining history, reviewing imaging and laboratory results, performing a physical exam and providing patient education and counseling. Department of Surgery documented in this encounter 05-27-2023 History of Present illness Narrative Images from the original note were not included. General Surgery History and Physical Lenin De Los Santos MD, MPH Patient ID: Socorro Gonsales [id number] 27 y.o. 1995 CHIEF COMPLAINT: Chief Complaint Patient presents with Follow-up F/U Breast MRI HPI: Socorro Gonsales is a 27 y.o. female who presents with bilateral nipple discharge. She also was recently in the emergency department with abdominal pain and evidence of right sided colonic constipation. She was going to be referred by a general surgeon and now presents to my office for evaluation of this as well. Patient states that abdominal pain is localized to pelvis and RLQ. She is trying miralax and having some loose stools but is concerned that she may have adhesions related to her prior surgeries. CTAP from ED was personally reviewed with patient demonstrating significant fecal burden in cecum and ascending colon. No fevers, chills, nausea, vomiting. Patient presented to my office originally on 04/20/23 for evaluation of bilateral nipple discharge. She noted that discharge started in January without known trigger including injury to the breasts, new medications, or new foods. Patient states that at onset the discharge was yellow/green and thick. She stated that it occurred mostly after hot showers or for wearing a bra for extended amounts of time. She states that this occurred about 2-3 times each week and was described as spontaneous and irregular in occurrence. Patient notes that over the past 1 week prior to her last appointment, the discharge turned dark red/bloody in color, which caused her to have more concerns. She also endorsed bilateral nipple soreness, R>L. Patient denied fever/chills, nausea/vomiting, or weight change. Fhx notable for maternal aunt and grandmother along with paternal grandmother with breast cancer history. Patient denies history of breast surgeries/biopsies. She is not currently menstruating. . Patient underwent bilateral breast US that demonstrated no findings to explain palpable abnormalities or bilateral discharge but it did demonstrate some duct ectasia present. PMH notable for pancreatitis, asthma, choledochocele. PSH notable for exploratory laparotomy, cholecystectomy, appendectomy, hysterectomy. Patient denies blood thinning medications. Patient underwent a breast MRI that was ordered at her last visit and this did not identify any concerning underlying lesions. She is here today to review those results and see how symptoms have evolved. She states that she has noticed no breast changes or further nipple discharge. She still has some intermittent tenderness and sensitivity at the nipple but is not concerned about any evolving breast symptoms and has not noticed discharge since her last visit with me. She is more concerned today about her constipation and abdominal pain. Breast Bilateral MRI 05/25/2023 IMPRESSION: No MRI evidence of malignancy in either breast. No findings seen to explain the bilateral nipple discharge. ASSESSMENT: Category 1 Negative RECOMMENDATION: Clinical correlation Bilateral Bilateral breast US limited Result Date: 04/19/2023 Patient Name: SOCORRO GONSALES : 1995 Exam Date/Time: 04/19/2023 14:43 Procedure: BI US BREAST LIMITED BILATERAL Ordering Provider: KIMBROUGH TANA Reason For Exam: LUMP IN BREAST Prior study Comparisons: Ultrasound from the [facility] dated 01/26/2023 Findings: The patient presents for a bilateral breast ultrasound for further evaluation of palpable abnormalities within both breasts and bilateral bloody nipple discharge. Ultrasound of the right breast was performed at 11:00, 6 cm from the nipple and 9:00, 1 cm from the nipple in the area of palpable abnormalities. Ultrasound was also performed of the left breast at 12-1 o'clock, 10 cm from the nipple in the area of palpable abnormality and 3-4 o'clock 5 cm from the nipple in the area of palpable abnormality. No cystic or solid mass is identified. No findings are seen to explain the palpable abnormalities. Ultrasound of the subareolar locations was performed bilaterally to evaluate the bloody nipple discharge. Only minimal duct ectasia is seen. No intraductal masses identified. No findings seen to explain the bilateral palpable abnormalities or bilateral bloody nipple discharge. Clinical follow-up is recommended. Surgical consult should be considered for the bloody nipple discharge. ASSESSMENT: Category 2 Benign RECOMMENDATION: Clinical correlation Bilateral Surgical Consultation Bilateral Report Dictated on Electronically Signed By: Marlene Whyte MD Electronically Signed Date/Time: 04/19/2023 2:38 PM EDT CTAP 05/17/23: HISTORY: Right lower quadrant pain Protocol: 3 mm axial images with intravenous contrast Dose reduction was employed with automated exposure control. COMPARISON: 09/24/2022 The liver, spleen, pancreas, adrenals and kidneys are normal. The gallbladder has been removed. No evidence of bowel inflammation or bowel obstruction. The appendix has been removed. Slight free fluid in the pelvis. The bladder is unremarkable. IMPRESSION: Slight free fluid in the pelvis. TVUS 05/18/23: IMPRESSION: Unremarkable ovaries. No other adnexal mass. Trace amount of free fluid again noted Past Medical History: Diagnosis Date Asthma 2000 Pancreatitis 2019 Past Surgical History: Procedure Laterality Date APPENDECTOMY 2020 CHOLECYSTECTOMY 2020 EXPLORATORY LAPAROTOMY 2019 HYSTERECTOMY 2021 KIDNEY SURGERY PARTIAL HYSTERECTOMY TUBAL LIGATION Medications Prior to Visit: Prior to Admission medications Medication Sig Start Date End Date Taking? Authorizing Provider Acetaminophen Extra Strength 500 MG tablet Take 1,000 mg by mouth every 6 hours as needed. 05/05/22 Historical Provider, albuterol 108 (90 Base) MCG/ACT inhaler Inhale 2 puffs every 6 hours as needed. 08/17/20 Historical Provider, albuterol 108 (90 Base) MCG/ACT inhaler inhale 2 puffs by mouth and INTO THE LUNGS every 6 hours if neede... (REFER TO PRESCRIPTION NOTES). 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 HENT: Negative for hearing loss, nosebleeds, sneezing, sore throat, trouble swallowing and voice change. Respiratory: Negative for cough, shortness of breath and wheezing. Cardiovascular: Negative for chest pain and palpitations. Gastrointestinal: Positive for abdominal pain (RLQ and pelvic). Negative for constipation, diarrhea, nausea, rectal pain and vomiting. Endocrine: Negative for polydipsia and polyuria. Genitourinary: Negative for difficulty urinating (sometimes feels as though RLQ pain is limiting her bladder emptying entirely.), dysuria, frequency, hematuria and urgency. Skin: Negative for color change, rash and wound. Allergic/Immunologic: Negative for immunocompromised state. Neurological: Negative for seizures and syncope. Hematological: Negative for adenopathy. Does not bruise/bleed easily. Psychiatric/Behavioral: Negative for agitation and confusion. Physical Exam: BP 112/72 Pulse 80 Temp 36.4 C (97.6 F) (Temporal) Ht 5' 6 (1.676 m) Wt 155 lb 12.8 oz (70.7 kg) BMI 25.15 kg/m Physical Exam Constitutional: General: She is not in acute distress. Appearance: Normal appearance. She is normal weight. She is not ill-appearing, toxic-appearing or diaphoretic. HENT: Head: Normocephalic. Right Ear: External ear normal. Left Ear: External ear normal. Eyes: Extraocular Movements: Extraocular movements intact. Pupils: Pupils are equal, round, and reactive to light. Cardiovascular: Rate and Rhythm: Normal rate and regular rhythm. Pulses: Normal pulses. Pulmonary: Effort: Pulmonary effort is normal. No respiratory distress. Breath sounds: Normal breath sounds. No rales. Chest: Comments: Breast exam deferred today given lacking complaints and no findings on imaging as well as patient preference. Abdominal: General: Bowel sounds are normal. Palpations: Abdomen is soft. There is no mass. Tenderness: There is abdominal tenderness (RLQ and pelvic to deep palpation, no L sided pain complaints or ttp on exam). Musculoskeletal: General: No swelling or tenderness. Cervical back: Normal range of motion. No tenderness. Lymphadenopathy: Cervical: No cervical adenopathy. Skin: General: Skin is warm and dry. Coloration: Skin is not jaundiced or pale. Findings: No bruising or erythema. Neurological: Mental Status: She is alert and oriented to person, place, and time. Psychiatric: Behavior: Behavior normal. No orders of the defined types were placed in this encounter. Impression/Treatment Plan: Socorro Gonsales is a 27 y.o. female with bilateral nipple discharge. Extensive imaging negative, including bilateral breast MRI. She also presents today with abdominal pain, R sided, with constipation, recent ED visit. -Today we discussed the potential etiologies of nipple discharge as well as the factors which raise suspicion for potential malignancy, including bloody discharge, unilateral discharge, and spontaneous discharge. I reassured patient that bilateral nipple discharge can be less worrisome, especially as she originally described it as non-bloody and with some findings of duct ectasia (albeit minimal). -Imaging and workup to this point was extensively reviewed with the patient - no evidence of underlying malignancy or other concerning pathologic cause. US demonstrates no findings to explain palpable abnormalities or bilateral discharge -Exam without palpable abnormality or expression of discharge -No plan for additional imaging studies - continue to monitor for ongoing discharge or changes in exam - anticipate much of this is physiologic and NOT pathologic. -Culturally appropriate shared decision making was performed during our encounter today. -Regarding the patient's concerns about her abdominal pain and constipation, we discussed need for ongoing bowel regimen; however, given still having complaints of pain, fullness, and constipation despite daily miralax, we discussed a bowel prep for colonoscopy to clear her bowels entirely. Thereafter, we will trial fiber and bowel regimen to keep her regular. Will trial this plan and see her back in 2 weeks to ensure improvement. Patient is off work next week and eager to try to clean out her bowels well with the colonoscopy prep. She has had a colonoscopy within the past few years and we will not pursue a colonoscopy itself, rather, just perform the prep to clear out the colon well. Patient counseled on risks, benefits, and alternatives of treatment plan at length while in the office today. Patient states an understandingand willingness to proceed with plan. I spent 30 minutes total on the day of the visit obtaining history, reviewing imaging and laboratory results, performing a physical exam and providing patient education and counseling. Department of Surgery documented in this encounter 05-18-2023 Emergency department Note IV secured with tape for transport to [facility]. Patient understands to go straight to [facility] ED and check in within the hour or PD will be called to remove IV. This RN advised patient not to eat en route for expected US at [facility]. Cheyanne Shane RN 05/18/2327 Cheyanne Shane RN 05/18/2328 05-18-2023 Emergency department Note IV secured with tape for transport to [facility]. Patient understands to go straight to [facility] ED and check in within the hour or PD will be called to remove IV. This RN advised patient not to eat en route for expected US at [facility]. Cheyanne Shane RN 05/18/2327 Cheyanne Shane RN 05/18/2328 Patient pressed call light to advise that friend will be here in about 30 minutes and is able to take her to [facility]. Patient declined to take ambulance. Cheyanne Sahne RN 05/17/232332 Patient appears to be in no acute distress, but does appear to be in pain. Respirations even and non labored. A&O x3. Bed locked, in low position, and call light within reach. No further needs. Patient states her fiance dropped her off. Her friend is en route to provide company and possible transport to [facility] as discussed with MD Cheyanne Shane RN 05/17/232320 EMERGENCY DEPARTMENT ENCOUNTER Pt Name: Socorro Gonsales Birthdate 1995 Date of evaluation: 05/17/2023 ED Provider: Deo Yates MD CHIEF COMPLAINT Chief Complaint Patient presents with Abdominal Pain Lower abdomen HISTORY OF PRESENT ILLNESS (Location/Symptom, Timing/Onset, Context/Setting, Quality, Duration, Modifying Factors, Severity) Note limiting factors. I wore appropriate PPE for the entirety of this encounter. HPI Socorro Gonsales is a 27 y.o. female who presents to the emergency department with chief complaint of 1 day history of lower abdominal pain. Its across both lower quadrants. She describes it as pelvic pain. She had some loose stools last few days but this is not unusual for her. She has had a partial hysterectomy and still has her ovaries in place. She does have a history of ovarian cyst in the past. She has had multiple abdominal surgeries as well including appendectomy and cholecystectomy. Denies dysuria but states the pelvic pain worsens after having a bowel movement or urinating. Denies any fevers, but states she is felt hot and cold flashes. Nursing Notes were reviewed. Limitations to history: None Outside historians: None REVIEW OF SYSTEMS Review of Systems: Pertinent positives as above per history of present illness. Other systems reviewed and found to be negative to a total of 10 systems reviewed. PAST MEDICAL HISTORY Past Medical History: Diagnosis Date Asthma 2000 Pancreatitis 2019 SURGICAL HISTORY Past Surgical History: Procedure Laterality Date APPENDECTOMY 2020 CHOLECYSTECTOMY 2019 EXPLORATORY LAPAROTOMY 2019 HYSTERECTOMY 2021 KIDNEY SURGERY PARTIAL HYSTERECTOMY TUBAL LIGATION CURRENT MEDICATIONS Previous Medications ACETAMINOPHEN EXTRA STRENGTH 500 MG TABLET Take 1,000 mg by mouth every 6 hours as needed. ALBUTEROL 108 (90 BASE) MCG/ACT INHALER Inhale 2 puffs every 6 hours as needed. ALBUTEROL 108 (90 BASE) MCG/ACT INHALER inhale 2 puffs by mouth and INTO THE LUNGS every 6 hours if neede... (REFER TO PRESCRIPTION NOTES). ALLERGIES Keflex [cephalexin], Ondansetron, Other, Codeine, Gabapentin, and Latex FAMILY HISTORY Family History Problem Relation Name Age of Onset Kidney disease Mother No Known Problems Father no contact with No Known Problems Sister No Known Problems Brother SOCIAL HISTORY Social History Socioeconomic History Marital status: Significant Other Tobacco Use Smoking status: Former Types: Cigarettes Smokeless tobacco: Former Tobacco comments: Vape Use Vaping Use Vaping Use: Every day Substances: Nicotine Substance and Sexual Activity Alcohol use: Yes Comment: social Drug use: Never Social History Narrative Single, 2 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 Patient is nontoxic in appearance. No respiratory distress. Head: Normocephalic, atraumatic Eyes: Pupils are equal, round and reactive to light. EOMI. Conjunctiva clear. Sclera anicteric ENT: Mucous membranes moist. Throat shows no erythema exudates or edema. Neck: No anterior adenopathy. No tenderness or stiffness. Chest: Nontender. No obvious flail segments. Lungs: Clear to auscultation bilaterally. No wheezing rales or rhonchi. Heart: Regular rate and rhythm. No audible murmur or gallop. Abdomen: Soft, nondistended, tender in the suprapubic area and bilateral lower quadrants. No significant upper abdominal tenderness. No rebound or guarding. No signs of peritonitis. Back: No midline tenderness. No flank area tenderness. Extremities: No gross deformity. No obvious tenderness. No obvious joint swelling. No calf tenderness. Negative Homans sign. Good distal pulses in all 4 extremities. Neurologic: Alert and fully oriented. No focal motor, sensory deficits in all 4 extremities. DIAGNOSTIC RESULTS RADIOLOGY (Per Emergency Physician): CT abdomen pelvis shows free fluid in the pelvis. No other obvious inflammatory process. Interpreted by radiology, reviewed by this examiner Interpretation per the Radiologist below, if available at the time of this note: CT abdomen pelvis w contrast Final Result Slight free fluid in the pelvis. Report Dictated on Electronically Signed By: Chucho Peck MD Electronically Signed Date/Time: 05/17/2023 11:08 PM EDT LABS: Labs Reviewed CBC WITH AUTO DIFFERENTIAL - Abnormal Result Value Auto WBC 7.7 RBC 4.11 Hemoglobin 12.8 Hematocrit 36.6 MCV 89.1 MCH 31.1 MCHC 35.0 RDW 12.2 Platelets 296 MPV 9.3 Neutrophils Relative 50.9 Lymphocytes Relative 38.7 Monocytes Relative 6.1 Eosinophils Relative 3.4 Basophils Relative 0.6 Immature Grans % 0.3 (*) Neutrophils Absolute 3.9 Lymphocytes Absolute 3.0 Monocytes Absolute 0.5 Eosinophils Absolute 0.3 Basophils Absolute 0.1 Immature Grans Absolute 0.0 Narrative: This is an appended report. These results have been appended to a previously verified report. BASIC METABOLIC PANEL - Abnormal SODIUM 141 POTASSIUM 3.3 (*) CHLORIDE 106 CARBON DIOXIDE 23 UREA NITROGEN 6 (*) CREATININE 0.61 GLUCOSE 86 CALCIUM 9.1 ANION GAP 13 eGFR >90.0 HEPATIC FUNCTION PANEL - Normal BILIRUBIN, TOTAL 0.6 BILIRUBIN, DIRECT 0.0 ALKALINE PHOSPHATASE 51 AST (SGOT) 23 ALT 17 ALBUMIN 4.6 TOTAL PROTEIN 7.8 COMPLETE URINALYSIS - Normal Color, Urine Light Yellow Clarity, Urine Clear pH, Urine 6.5 Leukocytes, Urine Negative Nitrite, Urine Negative Protein, Urine Negative Glucose, Urine Normal Bilirubin, Urine Negative Ketones, Urine Negative Urobilinogen, Urine Normal Blood, Urine Negative SPECIFIC GRAVITY OF URINE (NUMERIC) 1.018 COMPLETE URINALYSIS WITH REFLEX TO CULTURE Narrative: The following orders were created for panel order Urinalysis Complete with reflex to Culture. Procedure Abnormality Status --------- ------ Complete Urinalysis[[id number]] Normal Final result Please view results for these tests on the individual orders. Lab studies obtained. White count 7.7. No anemia. Potassium slight low 3.3 otherwise no electrolyte abnormalities. No renal insufficiency. No liver enzyme elevation. Urinalysis has no significant signs of infection. Laboratory studies reviewed by this examiner. EMERGENCY DEPARTMENT COURSE and DIFFERENTIAL DIAGNOSIS/MDM: Vitals: Vitals: 05/17/23 2149 BP: (!) 129/94 BP Location: Right arm Patient Position: Sitting Pulse: 88 Resp: 18 Temp: 37 C (98.6 F) TempSrc: Oral SpO2: 100% Weight: 68.9 kg (152 lb) Height: 1.651 m (5' 5) Patient has fairly persistent low pelvic pain on initial exam and repeat exams. Her CT scan does not show an obvious etiology for her symptoms. I do feel that she needs evaluation of an ovarian etiology for her pain. I currently do not have ultrasound available at this freestanding emergency department at this hour. I discussed the risks and benefits of transfer with patient and she agrees with plans for transfer to [facility] emergency department for obtaining a pelvic ultrasound to further evaluate her pain. I did discuss this and notify Dr. Cardozo at [facility]'s emergency department who accepts patient in transfer. Patient is transferred in stable condition. I did discuss with patient that transfer by ambulance is safer where she can be monitored and we can continue pain control. She states she would like a family member or friend to drive her by private vehicle and she understands the risks. The patient presented with chief complaint of pelvic pain. The differential diagnosis associated with this patient's presentation includes ovarian cyst, ovarian torsion, UTI, PID, colitis. Our workup consisted of ordering/reviewing: Laboratory studies, urinalysis, CT abdomen pelvis. Consideration for escalation of care with: Admission/observation if intractable pain. The patient will be Transferred. Patient is in agreement with this plan. Medications morphine injection 4 mg (4 mg IntraVENous Given 05/17/232222) sodium chloride 0.9 % bolus 1,000 mL (1,000 mL IntraVENous New Bag 05/17/232223) HYDROmorphone (Dilaudid) injection 0.5 mg (0.5 mg IntraVENous Given 05/17/232313) REVAL: PROCEDURES: Unless otherwise noted below, none Procedures Patients symptoms are consistent with sepsis, severe sepsis, or septic shock (If yes use .sepsiscoremeasure): no FINAL IMPRESSION 1. Pelvic pain in female DISPOSITION Transfer To [facility] Ed 05/17/2023 11:24:18 PM PATIENT REFERRED TO: No follow-up provider specified. DISCHARGE MEDICATIONS: New Prescriptions No medications on file (Comment: Please note this report has been produced using speech recognition software and may contain errors related to that system including errors in grammar, punctuation, and spelling, as well as words and phrases that may be inappropriate. If there are any questions or concerns please feel free to contact the dictating provider for clarification.) Deo Yates MD (electronically signed) Emergency Medicine Provider Deo Yates MD 05/17/23 5322 Emergency Department Encounter Location: [facility] ED Patient: Socorro Gonsales : 1995 Date of evaluation: 05/17/2023 ED Provider: Willian Cardozo MD Time received sign-out: 2340 Socorro Gonsales was checked out to me by Dr. Yates. Please see his/her initial documentation for details of the patient's initial ED presentation, physical exam and completed studies. In brief, Socorro Gonsales is a 27 y.o. adult that presented to the emergency department for severe lower abdominal pain/pelvic pain. Patient was evaluated at [place] ED where she obtained a CT scan that did not show clear etiology for her symptoms. Patient had a prior hysterectomy but retained her ovaries. Patient was sent to our ED for transvaginal ultrasound with concern for possible ovarian torsion. I have reviewed and interpreted all of the currently available lab results and diagnostics from this visit: Results for orders placed or performed during the hospital encounter of 05/17/23 CBC auto differential Result Value Ref Range Auto WBC 7.7 3.6 - 10.7 10*3/uL RBC 4.11 3.8 - 5.20 10*6/uL Hemoglobin 12.8 11.7 - 16.0 g/dL Hematocrit 36.6 35.0 - 47.0 % MCV 89.1 80.0 - 98.0 fL MCH 31.1 26.0 - 34.0 pg MCHC 35.0 32.0 - 36.0 % RDW 12.2 11.5 - 14.5 % Platelets 296 140 - 440 10*3/uL MPV 9.3 7.4 - 12.4 fL Neutrophils Relative 50.9 40.0 - 80.0 % Lymphocytes Relative 38.7 20.0 - 40.0 % Monocytes Relative 6.1 2.0 - 10.0 % Eosinophils Relative 3.4 1.0 - 6.0 % Basophils Relative 0.6 0.0 - 2.0 % Immature Grans % 0.3 (H) <=0.0 % Neutrophils Absolute 3.9 1.8 - 7.0 10*3/uL Lymphocytes Absolute 3.0 1.0 - 4.3 10*3/uL Monocytes Absolute 0.5 0.0 - 0.8 10*3/uL Eosinophils Absolute 0.3 0.0 - 0.5 10*3/uL Basophils Absolute 0.1 0.0 - 0.2 10*3/uL Immature Grans Absolute 0.0 <=0.0 10*3/uL Basic metabolic panel Result Value Ref Range SODIUM 141 135 - 145 mmol/L POTASSIUM 3.3 (L) 3.5 - 5.1 mmol/L CHLORIDE 106 98 - 107 mmol/L CARBON DIOXIDE 23 22 - 30 mmol/L UREA NITROGEN 6 (L) 7 - 17 mg/dL CREATININE 0.61 0.52 - 1.04 mg/dL GLUCOSE 86 70 - 100 mg/dL CALCIUM 9.1 8.4 - 10.4 mg/dL ANION GAP 13 3 - 13 mmol/L eGFR >90.0 >60.0 mL/min/1.73m*2 Hepatic function panel Result Value Ref Range BILIRUBIN, TOTAL 0.6 0.2 - 1.3 mg/dL BILIRUBIN, DIRECT 0.0 0.0 - 0.3 mg/dL ALKALINE PHOSPHATASE 51 38 - 126 U/L AST (SGOT) 23 15 - 46 U/L ALT 17 0 - 34 U/L ALBUMIN 4.6 3.5 - 5.0 g/dL TOTAL PROTEIN 7.8 6.3 - 8.2 g/dL Complete Urinalysis Result Value Ref Range Color, Urine Light Yellow Lt. Yellow Clarity, Urine Clear Clear pH, Urine 6.5 5.0 - 8.0 pH Leukocytes, Urine Negative Negative Reyes/uL Nitrite, Urine Negative Negative Protein, Urine Negative Negative mg/dL Glucose, Urine Normal Normal (<70) mg/dL Bilirubin, Urine Negative Negative mg/dL Ketones, Urine Negative Negative mg/dL Urobilinogen, Urine Normal Normal (0-1) mg/dL Blood, Urine Negative Negative mg/dL SPECIFIC GRAVITY OF URINE (NUMERIC) 1.018 1.005 - 1.030 US pelvis transvaginal Final Result Unremarkable ovaries. No other adnexal mass. Trace amount of free fluid again noted Report Dictated on Electronically Signed By: Jaguar Cochran MD Electronically Signed Date/Time: 05/18/2023 3:[address] abdomen pelvis w contrast Final Result Slight free fluid in the pelvis. Report Dictated on Electronically Signed By: Chucho Peck MD Electronically Signed Date/Time: 05/17/2023 11:08 PM EDT Final ED Course and MDM: In brief, Socorro Gonsales is a 27 y.o. whose care was signed out to me by the outgoing provider. In brief, patient was transferred to our ED from [place] emergency department after normal CT scan with concern for a cause of lower abdominal/pelvic pain. CT scan did not show any clear abnormalities that may be causing the patient's pain. Patient was sent to our facility for transvaginal ultrasound to evaluate for ovarian torsion. Patient is status post hysterectomy. Transvaginal ultrasound was obtained and shows normal-appearing ovaries bilaterally with normal Doppler flow. I have reviewed the CT scan and have noted a significant amount of retained stool in the colon. Patient has had multiple surgeries in the past and states that during her 2 most recent surgeries they had to lyse adhesions in order to proceed with the surgery. She is curious if this may be causing some of her pain. We did discuss that the adhesions may cause difficult transit of stool through the bowel and has been known to increase the risk of bowel obstruction. I do not feel a bowel obstruction is present at this time but it may be contributing to the patient's constipation. I recommended that the patient attempt MiraLAX and follow-up with her primary care and a general surgeon. Patient was given contact information for [facility] here at [facility]. I recommended that she call them as well as her primary care provider first thing in the morning to schedule appropriate follow-up. Return precautions were discussed and questions were answered at the bedside prior to discharge. Medications diazePAM (Valium) tablet 2 mg (has no administration in time range) morphine injection 4 mg (4 mg IntraVENous Given 05/17/23 2223) sodium chloride 0.9 % bolus 1,000 mL (0 mL IntraVENous Stopped 05/17/23 2324) HYDROmorphone (Dilaudid) injection 0.5 mg (0.5 mg IntraVENous Given 05/17/23 2314) HYDROmorphone (Dilaudid) injection 0.5 mg (0.5 mg IntraVENous Given 05/18/23 0309) promethazine (Phenergan) injection 12.5 mg (12.5 mg IntraMUSCular Given 05/18/23 2630) Final Impression 1. Pelvic pain in female 2. Lower abdominal pain 3. Constipation, unspecified constipation type DISPOSITION Discharge 05/18/2023 03:43:54 AM (Please note that portions of this note may have been completed with a voice recognition program. Efforts were made to edit the dictations but occasionally words are mis-transcribed.) Willian Cardozo MD [employer] Willian Cardozo MD 05/18/23 5197 Patient is here with lower abdominal pain. Pain started at 9 am and has worsened as the day progressed. Patient holding lower abdomen and guarding. She has tried heat ice and tylenol, last dose 6:30pm. She has had diarrhea for the last 3 days. She has had her appendix removed, gallbladder removed, partial hysterectomy, tubal ligation and cyst removal in her intestines. She states her right side is worse than her left side. She complains of nausea but has not vomited. Urine sample and vital signs obtained. Call light within reach. documented in this encounter 05-17-2023 Emergency department Note Patient pressed call light to advise that friend will be here in about 30 minutes and is able to take her to [facility]. Patient declined to take ambulance. Cheyanne Shane RN 05/17/23 8537 05-17-2023 Emergency department Note Patient appears to be in no acute distress, but does appear to be in pain. Respirations even and non labored. A&O x3. Bed locked, in low position, and call light within reach. No further needs. Patient states her fiance dropped her off. Her friend is en route to provide company and possible transport to [facility] as discussed with MD Cheyanne Shane RN 05/17/23 4324 05-17-2023 Emergency department Triage note Patient is here with lower abdominal pain. Pain started at 9 am and has worsened as the day progressed. Patient holding lower abdomen and guarding. She has tried heat ice and tylenol, last dose 6:30pm. She has had diarrhea for the last 3 days. She has had her appendix removed, gallbladder removed, partial hysterectomy, tubal ligation and cyst removal in her intestines. She states her right side is worse than her left side. She complains of nausea but has not vomited. Urine sample and vital signs obtained. Call light within reach. 05-17-2023 Physician Emergency department Note EMERGENCY DEPARTMENT ENCOUNTER Pt Name: Socorro Gonsales Birthdate 1995 Date of evaluation: 05/17/2023 ED Provider: Deo Yates MD CHIEF COMPLAINT Chief Complaint Patient presents with Abdominal Pain Lower abdomen HISTORY OF PRESENT ILLNESS (Location/Symptom, Timing/Onset, Context/Setting, Quality, Duration, Modifying Factors, Severity) Note limiting factors. I wore appropriate PPE for the entirety of this encounter. HPI Socorro Gonsales is a 27 y.o. female who presents to the emergency department with chief complaint of 1 day history of lower abdominal pain. Its across both lower quadrants. She describes it as pelvic pain. She had some loose stools last few days but this is not unusual for her. She has had a partial hysterectomy and still has her ovaries in place. She does have a history of ovarian cyst in the past. She has had multiple abdominal surgeries as well including appendectomy and cholecystectomy. Denies dysuria but states the pelvic pain worsens after having a bowel movement or urinating. Denies any fevers, but states she is felt hot and cold flashes. Nursing Notes were reviewed. Limitations to history: None Outside historians: None REVIEW OF SYSTEMS Review of Systems: Pertinent positives as above per history of present illness. Other systems reviewed and found to be negative to a total of 10 systems reviewed. PAST MEDICAL HISTORY Past Medical History: Diagnosis Date Asthma 2000 Pancreatitis 2019 SURGICAL HISTORY Past Surgical History: Procedure Laterality Date APPENDECTOMY 2020 CHOLECYSTECTOMY 2019 EXPLORATORY LAPAROTOMY 2019 HYSTERECTOMY 2021 KIDNEY SURGERY PARTIAL HYSTERECTOMY TUBAL LIGATION CURRENT MEDICATIONS Previous Medications ACETAMINOPHEN EXTRA STRENGTH 500 MG TABLET Take 1,000 mg by mouth every 6 hours as needed. ALBUTEROL 108 (90 BASE) MCG/ACT INHALER Inhale 2 puffs every 6 hours as needed. ALBUTEROL 108 (90 BASE) MCG/ACT INHALER inhale 2 puffs by mouth and INTO THE LUNGS every 6 hours if neede... (REFER TO PRESCRIPTION NOTES). ALLERGIES Keflex [cephalexin], Ondansetron, Other, Codeine, Gabapentin, and Latex FAMILY HISTORY Family History Problem Relation Name Age of Onset Kidney disease Mother No Known Problems Father no contact with No Known Problems Sister No Known Problems Brother SOCIAL HISTORY Social History Socioeconomic History Marital status: Significant Other Tobacco Use Smoking status: Former Types: Cigarettes Smokeless tobacco: Former Tobacco comments: Vape Use Vaping Use Vaping Use: Every day Substances: Nicotine Substance and Sexual Activity Alcohol use: Yes Comment: social Drug use: Never Social History Narrative Single, 2 kids (4,6) 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 Patient is nontoxic in appearance. No respiratory distress. Head: Normocephalic, atraumatic Eyes: Pupils are equal, round and reactive to light. EOMI. Conjunctiva clear. Sclera anicteric ENT: Mucous membranes moist. Throat shows no erythema exudates or edema. Neck: No anterior adenopathy. No tenderness or stiffness. Chest: Nontender. No obvious flail segments. Lungs: Clear to auscultation bilaterally. No wheezing rales or rhonchi. Heart: Regular rate and rhythm. No audible murmur or gallop. Abdomen: Soft, nondistended, tender in the suprapubic area and bilateral lower quadrants. No significant upper abdominal tenderness. No rebound or guarding. No signs of peritonitis. Back: No midline tenderness. No flank area tenderness. Extremities: No gross deformity. No obvious tenderness. No obvious joint swelling. No calf tenderness. Negative Homans sign. Good distal pulses in all 4 extremities. Neurologic: Alert and fully oriented. No focal motor, sensory deficits in all 4 extremities. DIAGNOSTIC RESULTS RADIOLOGY (Per Emergency Physician): CT abdomen pelvis shows free fluid in the pelvis. No other obvious inflammatory process. Interpreted by radiology, reviewed by this examiner Interpretation per the Radiologist below, if available at the time of this note: CT abdomen pelvis w contrast Final Result Slight free fluid in the pelvis. Report Dictated on Electronically Signed By: Chucho Peck MD Electronically Signed Date/Time: 05/17/2023 11:08 PM EDT LABS: Labs Reviewed CBC WITH AUTO DIFFERENTIAL - Abnormal Result Value Auto WBC 7.7 RBC 4.11 Hemoglobin 12.8 Hematocrit 36.6 MCV 89.1 MCH 31.1 MCHC 35.0 RDW 12.2 Platelets 296 MPV 9.3 Neutrophils Relative 50.9 Lymphocytes Relative 38.7 Monocytes Relative 6.1 Eosinophils Relative 3.4 Basophils Relative 0.6 Immature Grans % 0.3 (*) Neutrophils Absolute 3.9 Lymphocytes Absolute 3.0 Monocytes Absolute 0.5 Eosinophils Absolute 0.3 Basophils Absolute 0.1 Immature Grans Absolute 0.0 Narrative: This is an appended report. These results have been appended to a previously verified report. BASIC METABOLIC PANEL - Abnormal SODIUM 141 POTASSIUM 3.3 (*) CHLORIDE 106 CARBON DIOXIDE 23 UREA NITROGEN 6 (*) CREATININE 0.61 GLUCOSE 86 CALCIUM 9.1 ANION GAP 13 eGFR >90.0 HEPATIC FUNCTION PANEL - Normal BILIRUBIN, TOTAL 0.6 BILIRUBIN, DIRECT 0.0 ALKALINE PHOSPHATASE 51 AST (SGOT) 23 ALT 17 ALBUMIN 4.6 TOTAL PROTEIN 7.8 COMPLETE URINALYSIS - Normal Color, Urine Light Yellow Clarity, Urine Clear pH, Urine 6.5 Leukocytes, Urine Negative Nitrite, Urine Negative Protein, Urine Negative Glucose, Urine Normal Bilirubin, Urine Negative Ketones, Urine Negative Urobilinogen, Urine Normal Blood, Urine Negative SPECIFIC GRAVITY OF URINE (NUMERIC) 1.018 COMPLETE URINALYSIS WITH REFLEX TO CULTURE Narrative: The following orders were created for panel order Urinalysis Complete with reflex to Culture. Procedure Abnormality Status --------- ------ Complete Urinalysis[[id number]] Normal Final result Please view results for these tests on the individual orders. Lab studies obtained. White count 7.7. No anemia. Potassium slight low 3.3 otherwise no electrolyte abnormalities. No renal insufficiency. No liver enzyme elevation. Urinalysis has no significant signs of infection. Laboratory studies reviewed by this examiner. EMERGENCY DEPARTMENT COURSE and DIFFERENTIAL DIAGNOSIS/MDM: Vitals: Vitals: 05/17/23 2149 BP: (!) 129/94 BP Location: Right arm Patient Position: Sitting Pulse: 88 Resp: 18 Temp: 37 C (98.6 F) TempSrc: Oral SpO2: 100% Weight: 68.9 kg (152 lb) Height: 1.651 m (5' 5) Patient has fairly persistent low pelvic pain on initial exam and repeat exams. Her CT scan does not show an obvious etiology for her symptoms. I do feel that she needs evaluation of an ovarian etiology for her pain. I currently do not have ultrasound available at this freestanding emergency department at this hour. I discussed the risks and benefits of transfer with patient and she agrees with plans for transfer to [facility] emergency department for obtaining a pelvic ultrasound to further evaluate her pain. I did discuss this and notify Dr. Cardozo at [facility]'s emergency department who accepts patient in transfer. Patient is transferred in stable condition. I did discuss with patient that transfer by ambulance is safer where she can be monitored and we can continue pain control. She states she would like a family member or friend to drive her by private vehicle and she understands the risks. The patient presented with chief complaint of pelvic pain. The differential diagnosis associated with this patient's presentation includes ovarian cyst, ovarian torsion, UTI, PID, colitis. Our workup consisted of ordering/reviewing: Laboratory studies, urinalysis, CT abdomen pelvis. Consideration for escalation of care with: Admission/observation if intractable pain. The patient will be Transferred. Patient is in agreement with this plan. Medications morphine injection 4 mg (4 mg IntraVENous Given 05/17/232222) sodium chloride 0.9 % bolus 1,000 mL (1,000 mL IntraVENous New Bag 05/17/232223) HYDROmorphone (Dilaudid) injection 0.5 mg (0.5 mg IntraVENous Given 05/17/234) REVAL: PROCEDURES: Unless otherwise noted below, none Procedures Patients symptoms are consistent with sepsis, severe sepsis, or septic shock (If yes use .sepsiscoremeasure): no FINAL IMPRESSION 1. Pelvic pain in female DISPOSITION Transfer To [facility] Ed 05/17/2023 11:24:18 PM PATIENT REFERRED TO: No follow-up provider specified. DISCHARGE MEDICATIONS: New Prescriptions No medications on file (Comment: Please note this report has been produced using speech recognition software and may contain errors related to that system including errors in grammar, punctuation, and spelling, as well as words and phrases that may be inappropriate. If there are any questions or concerns please feel free to contact the dictating provider for clarification.) Deo Yates MD (electronically signed) Emergency Medicine Provider Deo Yates MD 05/17/23 2332 05-17-2023 Physician Emergency department Note Emergency Department Encounter Location: [facility] ED Patient: Socorro Gonsales : 1995 Date of evaluation: 05/17/2023 ED Provider: Willian Cardozo MD Time received sign-out: 2340 Socorro Gonsales was checked out to me by Dr. Yates. Please see his/her initial documentation for details of the patient's initial ED presentation, physical exam and completed studies. In brief, Socorro Gonsales is a 27 y.o. adult that presented to the emergency department for severe lower abdominal pain/pelvic pain. Patient was evaluated at [place] ED where she obtained a CT scan that did not show clear etiology for her symptoms. Patient had a prior hysterectomy but retained her ovaries. Patient was sent to our ED for transvaginal ultrasound with concern for possible ovarian torsion. I have reviewed and interpreted all of the currently available lab results and diagnostics from this visit: Results for orders placed or performed during the hospital encounter of 05/17/23 CBC auto differential Result Value Ref Range Auto WBC 7.7 3.6 - 10.7 10*3/uL RBC 4.11 3.8 - 5.20 10*6/uL Hemoglobin 12.8 11.7 - 16.0 g/dL Hematocrit 36.6 35.0 - 47.0 % MCV 89.1 80.0 - 98.0 fL MCH 31.1 26.0 - 34.0 pg MCHC 35.0 32.0 - 36.0 % RDW 12.2 11.5 - 14.5 % Platelets 296 140 - 440 10*3/uL MPV 9.3 7.4 - 12.4 fL Neutrophils Relative 50.9 40.0 - 80.0 % Lymphocytes Relative 38.7 20.0 - 40.0 % Monocytes Relative 6.1 2.0 - 10.0 % Eosinophils Relative 3.4 1.0 - 6.0 % Basophils Relative 0.6 0.0 - 2.0 % Immature Grans % 0.3 (H) <=0.0 % Neutrophils Absolute 3.9 1.8 - 7.0 10*3/uL Lymphocytes Absolute 3.0 1.0 - 4.3 10*3/uL Monocytes Absolute 0.5 0.0 - 0.8 10*3/uL Eosinophils Absolute 0.3 0.0 - 0.5 10*3/uL Basophils Absolute 0.1 0.0 - 0.2 10*3/uL Immature Grans Absolute 0.0 <=0.0 10*3/uL Basic metabolic panel Result Value Ref Range SODIUM 141 135 - 145 mmol/L POTASSIUM 3.3 (L) 3.5 - 5.1 mmol/L CHLORIDE 106 98 - 107 mmol/L CARBON DIOXIDE 23 22 - 30 mmol/L UREA NITROGEN 6 (L) 7 - 17 mg/dL CREATININE 0.61 0.52 - 1.04 mg/dL GLUCOSE 86 70 - 100 mg/dL CALCIUM 9.1 8.4 - 10.4 mg/dL ANION GAP 13 3 - 13 mmol/L eGFR >90.0 >60.0 mL/min/1.73m*2 Hepatic function panel Result Value Ref Range BILIRUBIN, TOTAL 0.6 0.2 - 1.3 mg/dL BILIRUBIN, DIRECT 0.0 0.0 - 0.3 mg/dL ALKALINE PHOSPHATASE 51 38 - 126 U/L AST (SGOT) 23 15 - 46 U/L ALT 17 0 - 34 U/L ALBUMIN 4.6 3.5 - 5.0 g/dL TOTAL PROTEIN 7.8 6.3 - 8.2 g/dL Complete Urinalysis Result Value Ref Range Color, Urine Light Yellow Lt. Yellow Clarity, Urine Clear Clear pH, Urine 6.5 5.0 - 8.0 pH Leukocytes, Urine Negative Negative Reyes/uL Nitrite, Urine Negative Negative Protein, Urine Negative Negative mg/dL Glucose, Urine Normal Normal (<70) mg/dL Bilirubin, Urine Negative Negative mg/dL Ketones, Urine Negative Negative mg/dL Urobilinogen, Urine Normal Normal (0-1) mg/dL Blood, Urine Negative Negative mg/dL SPECIFIC GRAVITY OF URINE (NUMERIC) 1.018 1.005 - 1.030 US pelvis transvaginal Final Result Unremarkable ovaries. No other adnexal mass. Trace amount of free fluid again noted Report Dictated on Electronically Signed By: Jaguar Cochran MD Electronically Signed Date/Time: 05/18/2023 3:[address] abdomen pelvis w contrast Final Result Slight free fluid in the pelvis. Report Dictated on Electronically Signed By: Chucho Peck MD Electronically Signed Date/Time: 05/17/2023 11:08 PM EDT Final ED Course and MDM: In brief, Socorro Gonsales is a 27 y.o. whose care was signed out to me by the outgoing provider. In brief, patient was transferred to our ED from [place] emergency department after normal CT scan with concern for a cause of lower abdominal/pelvic pain. CT scan did not show any clear abnormalities that may be causing the patient's pain. Patient was sent to our facility for transvaginal ultrasound to evaluate for ovarian torsion. Patient is status post hysterectomy. Transvaginal ultrasound was obtained and shows normal-appearing ovaries bilaterally with normal Doppler flow. I have reviewed the CT scan and have noted a significant amount of retained stool in the colon. Patient has had multiple surgeries in the past and states that during her 2 most recent surgeries they had to lyse adhesions in order to proceed with the surgery. She is curious if this may be causing some of her pain. We did discuss that the adhesions may cause difficult transit of stool through the bowel and has been known to increase the risk of bowel obstruction. I do not feel a bowel obstruction is present at this time but it may be contributing to the patient's constipation. I recommended that the patient attempt MiraLAX and follow-up with her primary care and a general surgeon. Patient was given contact information for [facility] general surgery here at [facility]. I recommended that she call them as well as her primary care provider first thing in the morning to schedule appropriate follow-up. Return precautions were discussed and questions were answered at the bedside prior to discharge. Medications diazePAM (Valium) tablet 2 mg (has no administration in time range) morphine injection 4 mg (4 mg IntraVENous Given 05/17/232222) sodium chloride 0.9 % bolus 1,000 mL (0 mL IntraVENous Stopped 05/17/234) HYDROmorphone (Dilaudid) injection 0.5 mg (0.5 mg IntraVENous Given 05/17/23 2314) HYDROmorphone (Dilaudid) injection 0.5 mg (0.5 mg IntraVENous Given 05/18/23 0309) promethazine (Phenergan) injection 12.5 mg (12.5 mg IntraMUSCular Given 05/18/23 0310) Final Impression 1. Pelvic pain in female 2. Lower abdominal pain 3. Constipation, unspecified constipation type DISPOSITION Discharge 05/18/2023 03:43:54 AM (Please note that portions of this note may have been completed with a voice recognition program. Efforts were made to edit the dictations but occasionally words are mis-transcribed.) Willian Cardozo MD Acute Care [facility] Willian Cardozo MD 05/18/23 0349 04-20-2023 History of Present illness Narrative Images from the original note were not included. General Surgery History and Physical Lenin De Los Santos MD, MPH Patient ID: Socorro Gonsales [id number] 27 y.o. 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 female who presents with bilateral nipple discharge. Patient presents today for evaluation of bilateral nipple discharge. She notes that this started in January without known trigger including injury to the breasts, new medications, or new foods. Patient states that at onset the discharge was yellow/green and thick. She states that this occurs mostly after hot showers or for wearing a bra for extended amounts of time. She states that this occurs about 2-3 times each week and is described as spontaneous and irregular in occurrence. Patient notes that over the past 1 week the discharge has turned dark red/bloody in color, which caused her to have more concerns. She also endorses bilateral nipple soreness, R>L. Patient denies fever/chills, nausea/vomiting, or weight change. Fhx notable for maternal aunt and grandmother along with paternal grandmother with breast cancer history. Patient denies history of breast surgeries/biopsies. She is not currently menstruating. . Patient underwent bilateral breast US that demonstrates no findings to explain palpable abnormalities or bilateral discharge but it did demonstrate some duct ectasia present. PMH notable for pancreatitis, asthma, choledochocele. PSH notable for exploratory laparotomy, cholecystectomy, appendectomy, hysterectomy. Patient denies blood thinning medications. Bilateral breast US limited Result Date: 04/19/2023 [facility] : 1995 [id number] Exam Date/Time: 04/19/2023 14:43 Procedure: BI US BREAST LIMITED BILATERAL Ordering Provider: KIMBROUGH TANA Reason For Exam: LUMP IN BREAST Prior study Comparisons: Ultrasound from the [facility] dated 01/26/2023 Findings: The patient presents for a bilateral breast ultrasound for further evaluation of palpable abnormalities within both breasts and bilateral bloody nipple discharge. Ultrasound of the right breast was performed at 11:00, 6 cm from the nipple and 9:00, 1 cm from the nipple in the area of palpable abnormalities. Ultrasound was also performed of the left breast at 12-1 o'clock, 10 cm from the nipple in the area of palpable abnormality and 3-4 o'clock 5 cm from the nipple in the area of palpable abnormality. No cystic or solid mass is identified. No findings are seen to explain the palpable abnormalities. Ultrasound of the subareolar locations was performed bilaterally to evaluate the bloody nipple discharge. Only minimal duct ectasia is seen. No intraductal masses identified. No findings seen to explain the bilateral palpable abnormalities or bilateral bloody nipple discharge. Clinical follow-up is recommended. Surgical consult should be considered for the bloody nipple discharge. ASSESSMENT: Category 2 Benign RECOMMENDATION: Clinical correlation Bilateral Surgical Consultation Bilateral Report Dictated on Electronically Signed By: Marlene Whyte MD Electronically Signed Date/Time: 04/19/2023 2:38 PM EDT Past Medical History: Diagnosis Date Asthma 2001 Pancreatitis 2019 Past Surgical History: Procedure Laterality Date APPENDECTOMY 2020 CHOLECYSTECTOMY 2019 EXPLORATORY LAPAROTOMY 2019 HYSTERECTOMY 2021 KIDNEY SURGERY PARTIAL HYSTERECTOMY TUBAL LIGATION Medications Prior to Visit: Prior to Admission medications Medication Sig Start Date End Date Taking? Authorizing Provider Acetaminophen Extra Strength 500 MG tablet Take 1,000 mg by mouth every 6 hours as needed. 05/05/22 Historical Provider, albuterol 108 (90 Base) MCG/ACT inhaler Inhale 2 puffs every 6 hours as needed. 08/17/20 Historical Provider, albuterol 108 (90 Base) MCG/ACT inhaler inhale 2 puffs by mouth and INTO THE LUNGS every 6 hours if neede... (REFER TO PRESCRIPTION NOTES). 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 HENT: Negative for hearing loss, nosebleeds, sneezing, sore throat, trouble swallowing and voice change. Respiratory: Negative for cough, shortness of breath and wheezing. Cardiovascular: Negative for chest pain and palpitations. Gastrointestinal: Negative for abdominal pain, constipation, diarrhea, nausea, rectal pain and vomiting. Endocrine: Negative for polydipsia and polyuria. Genitourinary: Negative for difficulty urinating, dysuria, frequency, hematuria and urgency. Skin: Negative for color change, rash and wound. Allergic/Immunologic: Negative for immunocompromised state. Neurological: Negative for seizures and syncope. Hematological: Negative for adenopathy. Does not bruise/bleed easily. Psychiatric/Behavioral: Negative for agitation and confusion. Physical Exam: BP 116/79 Pulse 68 Ht 5' 6 (1.676 m) Wt 155 lb (70.3 kg) BMI 25.02 kg/m Physical Exam Exam conducted with a talent acquisition lead present. Constitutional: Appearance: Normal appearance. HENT: Head: Normocephalic. Eyes: Pupils: Pupils are equal, round, and reactive to light. Cardiovascular: Rate and Rhythm: Normal rate and regular rhythm. Pulses: Normal pulses. Pulmonary: Effort: Pulmonary effort is normal. No respiratory distress. Breath sounds: Normal breath sounds. No rales. Chest: Breasts: Right: Tenderness (at nipple) present. No swelling, bleeding, inverted nipple, mass, nipple discharge (None on examination) or skin change. Left: Tenderness (at nipple) present. No swelling, bleeding, inverted nipple, mass, nipple discharge (None on examination) or skin change. Abdominal: General: Bowel sounds are normal. Palpations: Abdomen is soft. There is no mass. Tenderness: There is no abdominal tenderness. Musculoskeletal: General: No swelling or tenderness. Cervical back: Normal range of motion. No tenderness. Lymphadenopathy: Cervical: No cervical adenopathy. Upper Body: Right upper body: No supraclavicular or axillary adenopathy. Left upper body: No supraclavicular or axillary adenopathy. Skin: General: Skin is warm and dry. Coloration: Skin is not jaundiced or pale. Findings: No bruising or erythema. Neurological: Mental Status: She is alert and oriented to person, place, and time. Psychiatric: Behavior: Behavior normal. No orders of the defined types were placed in this encounter. Impression/Treatment Plan: Socorro Gonsales is a 27 y.o. female with bilateral nipple discharge -Today we discussed the potential etiologies of nipple discharge as well as the factors which raise suspicion for potential malignancy, including bloody discharge, unilateral discharge, and spontaneous discharge. I reassured patient that bilateral nipple discharge can be less worrisome, especially as she originally described it as non-bloody and with some findings of duct ectasia (albeit minimal). The new bloody character is more concerning; however, it is bilateral. -Patient with bilateral nipple discharge x 3 months, bloody discharge noticed x 1 week -US demonstrates no findings to explain palpable abnormalities or bilateral discharge -Exam without palpable abnormality or expression of discharge -Will proceed with bilateral breast MRI for further evaluation of symptoms -Patient to follow up in office after imaging obtained to go over results and possible further treatment planning -Culturally appropriate shared decision making was performed during our encounter today and talent acquisition lead was present during our visit. Patient counseled on risks, benefits, and alternatives of treatment plan at length while in the office today. Patient states an understandingand willingness to proceed with plan. Department of Surgery AG documented in this encounter 03-08-2023 Miscellaneous Notes Release faxed successfully to [facility] [phone]. Patient will be contacted once priors are received. documented in this encounter 03-08-2023 Note Formatting of this n ote might be different from the original. Release faxed successfully to [phone]. Patient will be contacted once priors are received. 03-08-2023 Note Formatting of this n ote might be different from the original. Release faxed successfully to [place] [phone]. Patient will be contacted once priors are received. 01-29-2023 Miscellaneous Notes Patient viewed [employer] message sent by provider. Emilie Charlton RN Message left asking pt to call the office for results. Pt does not actively use [employer]. Candice Alejandro LPN ----- Message from Nicolasa Tan APRN.CNM sent at 01/28/2023 1:15 PM EDT ----- Negative breast ultrasound. Nicolasa Tan APRN.CNM documented in this encounter [facility] 01-26-2023 Miscellaneous Notes Order filed. Lyubov Aaron APRN.CNP Please see pended order below. Pt in radiology at this time and tech wanting to scan this side also. Candice Alejandro LPN documented in this encounter [facility] 01-26-2023 History of Present illness Narrative Radiology Service Progress Note PATIENT NAME: Socorro Gonsales DATE OF SERVICE: January 26, 2023 TIME: 1:35 PM PATIENT IDENTITY VERIFICATION COMPLETED USING TWO (2) IDENTIFIERS: Name and Date of confirmed by patient verbally. FALL SCREENING: Has the patient had 2 falls in the last year or 1 fall with injury or currently using an Ambulatory Assistive Device (Walker, Cane, Wheelchair, Crutches, etc.)? No PATIENT GENDER DATA: Female. status: : No status: NO. PATIENT RELEVANT IMPLANT DATA REVIEWED: Not Applicable RADIOLOGY DEPARTMENT: Ultrasound PERIPHERAL IV DATA: Not applicable SIGNED BY: Renate Turcios RDMS RVT January 26, 2023 1:35 PM documented in this encounter [facility] 01-25-2023 History of Present illness Narrative BREAST LUMP HISTORY: This is a 27 year old female Presents with breast mass left Mass has been present for 2 months that has increased in size and tenderness. Right breast last week noticed tenderness and a small lump Tenderness Yes, bilateral left breast itching/ nipple itchy Change in sizeYes, increase in size left breast Any history breast mass Yes, cyst age 16 Caffeine use No Last mammogram none Hysterectomy partial 2021 Any previous breast surgery No Any family history breast disease/ breast cancer Yes- matenal aunt, maternal great gradmother OB History T2 L2 SAB0 IAB0 Ectopic0 Multiple0 Live Births2 PAST MEDICAL HISTORY Diagnosis Date Anemia anxiety Asthma PAST SURGICAL HISTORY Procedure Laterality Date LAPAROSCOPY W/RMVL ADNEXAL STRUCTURES Bilateral 04/28/2018 l/s bilateral salpingectomy PAST SURGICAL HISTORY OF wisdom teeth PAST SURGICAL HISTORY OF 03/2020 exploratory laparoscopy VAGINAL HYSTERECTOMY 2021 FAMILY HISTORY Problem Relation Age of Onset Heart Mother Seizures Mother Stroke Mother Multiple Sclerosis Mother Psychiatry Sister Manic Depression Hypertension Maternal Grandfather Breast Cancer Maternal Aunt Hypertension Maternal Uncle SOCIAL HISTORY Social History Tobacco Use Smoking status: Former Years: 3.00 Types: Cigarettes Smokeless tobacco: Never Substance Use Topics Alcohol use: Yes Comment: rarely Drug use: No PAST SURGICAL HISTORY Procedure Laterality Date LAPAROSCOPY W/RMVL ADNEXAL STRUCTURES Bilateral 04/28/2018 l/s bilateral salpingectomy PAST SURGICAL HISTORY OF wisdom teeth PAST SURGICAL HISTORY OF 03/2020 exploratory laparoscopy VAGINAL HYSTERECTOMY 2021 Current Outpatient Medications Medication Sig albuterol HFA (PROVENTIL HFA, VENTOLIN HFA) 90 mcg/actuation inhaler Inhale 2 Puffs as instructed every 6 hours as needed for wheezing/shortness of breath. ondansetron orally disintegrating (ZOFRAN ODT) 4 mg disintegrating tablet Take 1 tablet by mouth every 8 hours as needed. (Patient not taking: Reported on 06/03/2022) naproxen (NAPROSYN) 500 mg tablet Take 1 tablet by mouth twice daily as needed. TAKE WITH FOOD (Patient not taking: Reported on 06/03/2022) albuterol HFA (PROVENTIL HFA, VENTOLIN HFA) 90 mcg/actuation inhaler Inhale 2 Puffs as instructed every 4 hours as needed. (Patient not taking: Reported on 06/03/2022) fluticasone (FLONASE) 50 mcg/actuation nasal spray Use 2 Sprays in each nostril once daily. Rinse mouth after use. (Patient not taking: Reported on 04/16/2021 ) acetaminophen (TYLENOL) 325 mg tablet Take 650 mg by mouth every 6 hours as needed. (Patient not taking: Reported on 06/03/2022) No current facility-administered medications for this visit. Allergies As of Date: 01/25/2023 Allergen Noted Reaction CODEINE 05/27/2017 Rash and Itching GABAPENTIN 02/23/2020 Other: See Comments and Unknown LATEX 05/27/2017 Rash and Itching SEASONAL ALLERGIES 11/28/2015 Other: See Comments ZOFRAN [ONDANSETRON] 04/23/2020 Itching Fully Assessed 01/25/2023 EXAMINATION: There is no concerning cervical, supraclavicular, or axillary lymphadenopathy. She has bilateral fibrocystic changes. On the right are no dominant masses, skin changes or nipple discharge. On the left there is dominant fullness, fibrocysytic changes, and 3-4 cm mass/ fibrocystic area palpated in the 1-2 o'clock location moderate tenderness up in to axillary with minimal palpation, No skin changes or nipple discharge. IMPRESSION: left breast mass Fibrocystic breast changes Mastalgia PLAN: Office Visit on 01/25/23 PHILIPP DIAGNOSTIC BILATERAL US BREAST LTD LEFT Will notify and discuss findings with patient RTO- as needed Nicolasa Tan APRN.CNM documented in this encounter [facility] 01-06-2023 History of Present illness Narrative CC: Patient presents with: Nasal Congestion: drainage, cough, headache, fever and sore throat HPI: Socorro Gonsales is a 27 year old female who presents to the office with complaint of head congestion, cough, nonproductive, and sore throat for a few days. Symptoms are staying the same. Associated symptoms includes headache and fever. Denies nausea, vomiting , and diarrhea. Treatments tried include nothing so far. with no relief of symptoms. Sick contacts: unknown. History of asthma, frequent episodes of bronchitis, chronic bronchitis, bronchiectasis or COPD: No Smoker: No Seasonal/environmental allergies: No The ROS is otherwise negative. The patient's pmh, medications, allergies, and past visits are reviewed. PHYSICAL EXAM: BP 94/62 Pulse 84 Temp 36.7 C (98 F) Resp 16 Wt 66.2 kg (146 lb) LMP 02/07/2022 SpO2 95% BMI 24.30 kg/m General appearance: alert, cooperative, pleasant, in no acute distress Head: Normocephalic Eyes: EOM's intact, conjunctiva pink and moist, no icterus, sclera white, non-injected Ears: Right ear: External ear/canal- Normal, TM - clear with good landmarks. Left ear: External ear/canal- Normal, TM - clear with good landmarks Oropharynx:mild erythema, without exudates present Heart: Negative. RRR without obvious murmur, gallop, or rubs. No ectopy. Lungs: clear to auscultation, without rales or wheeze, good air exchange PAST MEDICAL HISTORY Diagnosis Date Anemia anxiety Asthma PAST SURGICAL HISTORY Procedure Laterality Date LAPAROSCOPY W/RMVL ADNEXAL STRUCTURES Bilateral 04/28/2018 l/s bilateral salpingectomy PAST SURGICAL HISTORY OF wisdom teeth PAST SURGICAL HISTORY OF 03/2020 exploratory laparoscopy ALLERGIES Gabapentin, Latex, Seasonal Allergies, and Zofran [Ondansetron] MEDICATIONS albuterol HFA (PROVENTIL HFA, VENTOLIN HFA) 90 mcg/actuation inhaler Inhale 2 Puffs as instructed every 6 hours as needed for wheezing/shortness of breath. ondansetron orally disintegrating (ZOFRAN ODT) 4 mg disintegrating tablet Take 1 tablet by mouth every 8 hours as needed. (Patient not taking: Reported on 06/03/2022) naproxen (NAPROSYN) 500 mg tablet Take 1 tablet by mouth twice daily as needed. TAKE WITH FOOD (Patient not taking: Reported on 06/03/2022) albuterol HFA (PROVENTIL HFA, VENTOLIN HFA) 90 mcg/actuation inhaler Inhale 2 Puffs as instructed every 4 hours as needed. (Patient not taking: Reported on 06/03/2022) fluticasone (FLONASE) 50 mcg/actuation nasal spray Use 2 Sprays in each nostril once daily. Rinse mouth after use. (Patient not taking: Reported on 04/16/2021 ) acetaminophen (TYLENOL) 325 mg tablet Take 650 mg by mouth every 6 hours as needed. (Patient not taking: Reported on 06/03/2022) FAMILY HISTORY Problem Relation Age of Onset Heart Mother Seizures Mother Stroke Mother Multiple Sclerosis Mother Psychiatry Sister Manic Depression Hypertension Maternal Grandfather Breast Cancer Maternal Aunt Hypertension Maternal Uncle Social History Tobacco Use Smoking status: Former Years: 3.00 Types: Cigarettes Smokeless tobacco: Never Substance Use Topics Alcohol use: Yes Comment: rarely Drug use: No ASSESSMENT/PLAN: 1. Sore throat - ICD9: 462, ICD10: J02.9 - STREP A MOLECULAR (POC) - neg Tried [id number] medication to control symptoms. Patient does not want any potential red flag symptoms discussed with the patient. Reviewed appropriate action plan to take if red flag symptoms occur. Patient agreeable to treatment plan. Marva Stanley APRN.ENGINE DISPATCHER documented in this encounter [facility] 10-15-2022 Telephone encounter Note Unable to reach patient by telephone. Left detail message for patient to return call. 10-15-2022 Miscellaneous Notes Unable to reach patient by telephone. Left detail message for patient to return call. S: Patient spoke with [facility] nurse regarding medication reaction B: Onset of symptoms/concern 1 day A: Patient states they were prescribed Keflex on 10/14/22. Patient states approx 1 hour after first dose they were nauseated and vomited multiple times. Patient is requesting a different antibiotic. R: Please notify patient [phone] when new script sent or with further recommendations. Keflex added to allergy list. Allergies and pharmacy verified with patient. Patient understands care advice to call pharmacy before going to curing pickling packer medication. No further needs at this time. Patient instructed to call back with new or worsening symptoms. Reason for Disposition Caller has NON-URGENT medicine question about med that PCP or specialist prescribed and triager unable to answer question Protocols used: Medication Question [id number] documented in this encounter 10-15-2022 Telephone encounter Note S: Patient spoke with [facility] nurse regarding medication reaction B: Onset of symptoms/concern 1 day A: Patient states they were prescribed Keflex on 10/14/22. Patient states approx 1 hour after first dose they were nauseated and vomited multiple times. Patient is requesting a different antibiotic. R: Please notify patient [phone] when new script sent or with further recommendations. Keflex added to allergy list. Allergies and pharmacy verified with patient. Patient understands care advice to call pharmacy before going to curing pickling packer medication. No further needs at this time. Patient instructed to call back with new or worsening symptoms. Reason for Disposition Caller has NON-URGENT medicine question about med that PCP or specialist prescribed and triager unable to answer question Protocols used: Medication Question [id number] 10-14-2022 History of Present illness Narrative Images from the original note were not included. [facility] [address] [place] [id number] Dept: [phone] Dept Loc: [phone] Visit type: Established Patient Reason for Visit: Suspicious Skin Lesion (Mole on left side of neck red and painful whole neck is sore) Assessment and Plan 1. Infected skin lesion Comments: Acute inflammation/infection of larger skin tag left side of the neck, discussed Band-Aid bacitracin as well as use of cephalexin Orders: - cephalexin (Keflex) 500 MG capsule; Take 1 capsule (500 mg) by mouth 2 times daily for 7 days., Starting Wed10/14/2022, Until Wed10/21/2022, Normal Follow up in about 1 year (around 10/15/2023). The skin tag on the left side of her neck is approximately 4 mm to 5 mm in diameter it is acutely red and inflamed the surface of that is excoriated and it is tender to the touch. Does not clinically appear abscessed but certainly worrisome for acute inflammation versus early infection as it just started. She has multiple lesions similar to this that are pedunculated on her back that are not acutely inflamed I did discuss with her that she should follow-up with dermatology since it is in close proximity of her face and neck and its a cosmetic area that with the acute inflammation it becomes worrisome and bothersome that it should be surgically and professionally removed. She is understanding this and will reach out to her teacher instrumental today. There is no signs of acute septicemia or toxicity or signs of acute abscess. Subjective HPI set pleasant healthy 26-year-old female who presents to the office today for evaluation of a skin lesion that is become painful and inflamed. She has a history of multiple skin tags on her body primarily her neck and back and torso. 1 in particular on the left side of her neck became acutely tender and inflamed its not swollen but it is red its not bleeding she is not sure what set it off. She is concerned as it is now more tender than it ever has been is causing the pain on the left side of her neck. She does see a teacher instrumental but usually only for acne. She does states she has had multiple these lesions before primarily in her torso but they have never bothered her this ones a little bit larger than all the other ones. She denies any recent illnesses no recent fever chills she did states that maybe is a secondary to her sinuses she has had a little bit of a sinus congestion lately otherwise she denies any other concerns no history of trauma or fever chills. Review of Systems Constitutional: Negative for chills, fatigue and fever. HENT: Positive for congestion and sinus pressure. Negative for ear pain, rhinorrhea and sore throat. Respiratory: Negative for cough and shortness of breath. Skin: Negative for rash and wound. Positive redness inflammation skin tag as described in the HPI Allergies Allergen Reactions Ondansetron Itching Itching and redness in arm when given Zofran IV Other Other nasal congestion Seasonal Codeine Itching and Rash Gabapentin Other [place] like Heart was racing [place] like Heart was racing Latex Itching and Rash Other reaction(s): Hives Outpatient Medications Prior to Visit Medication Sig Dispense Refill Acetaminophen Extra Strength 500 MG tablet Take 1,000 mg by mouth every 6 hours as needed. albuterol 108 (90 Base) MCG/ACT inhaler Inhale 2 puffs every 6 hours as needed. albuterol 108 (90 Base) MCG/ACT inhaler inhale 2 puffs by mouth and INTO THE LUNGS every 6 hours if neede... (REFER TO PRESCRIPTION NOTES). famotidine (Pepcid) 20 MG tablet Take 1 tablet (20 mg) by mouth 2 times daily for 15 days. (Patient not taking: Reported on 10/14/2022) 30 tablet 0 No facility-administered medications prior to visit. Past Medical History: Diagnosis Date Asthma 2001 Pancreatitis 2019 Social History Tobacco Use Smoking status: Former Types: Cigarettes Smokeless tobacco: Former Substance Use Topics Alcohol use: Yes Comment: social Past Surgical History: Procedure Laterality Date APPENDECTOMY 2020 CHOLECYSTECTOMY 2019 EXPLORATORY LAPAROTOMY 2019 HYSTERECTOMY 2021 Family History Problem Relation Name Age of Onset Kidney disease Mother No Known Problems Father no contact with No Known Problems Sister No Known Problems Brother Objective BP 98/66 (BP Location: Left arm, Patient Position: Sitting, BP Cuff Size: Large adult) Pulse 82 Temp 36.8 C (98.2 F) (Temporal) Ht 5' 5 (1.651 m) Wt 144 lb 9.6 oz (65.6 kg) SpO2 100% BMI 24.06 kg/m Physical Exam Vitals reviewed. Constitutional: General: She is not in acute distress. Appearance: Normal appearance. She is normal weight. She is not ill-appearing or toxic-appearing. HENT: Right Ear: Tympanic membrane and ear canal normal. Left Ear: Tympanic membrane and ear canal normal. Nose: Congestion present. Neck: Comments: There is very mild tenderness over the surface of the tissue in and around the area of the left side of her neck where the skin tag is its just inferior and slightly posterior to the left earlobe there is good full range of motion there is no trismus no masses no nuchal rigidity. Cardiovascular: Rate and Rhythm: Normal rate and regular rhythm. Heart sounds: Normal heart sounds. Pulmonary: Breath sounds: Normal breath sounds. Musculoskeletal: Cervical back: Normal range of motion. Tenderness present. No rigidity. Lymphadenopathy: Cervical: No cervical adenopathy. Skin: General: Skin is warm and dry. Comments: There are multiple lesions on her neck most of them are small only 1 to 2 mm in nature consistent with the superficial skin tags this 1 is proximally 4 to 5 mm in diameter it is larger to red its inflamed but there is no sign of an abscess. The surface of it appears erythematous slightly weepy there is no bleeding. Examination of her back shows multiple lesions of similar character and 7 different sizes none of them appear infected inflamed or abnormal at this time. Neurological: Mental Status: She is alert. Data Reviewed and Summarized Labs: Patient was seen in the ER since her last visit for rectal bleeding was felt to be probable secondary to colitis I did review her CAT scan with her as well as all the blood work appears otherwise unremarkable. There is no acute findings on her CT scan of her abdomen. Encouraged to report any new symptoms. Imaging/Testing: Lizeth Churchill PA-C 10/14/2022 Please note that portions of this note may have been completed with voice recognition software. Documentation reviewed prior to signing but minor errors in space systems operations craftsman may have occurred. documented in this encounter 10-14-2022 Instructions Lizeth Churchill PA-C - 10/14/2022 9:00 AM EST Use bacitracin and bandaid documented in this encounter 09-24-2022 Emergency department Note Discharge instructions, follow up care, and pain management discussed with patient. All questions answered, there are no further questions at this time. IV removed, catheter intact, site covered with dry dressing. Patient tolerated well. Newly prescribed medications discussed with patient including dosage, side effects, and uses. Patient verbally taught back information. Marlene Renee RN 09/24/222228 09-24-2022 Emergency department Note Discharge instructions, follow up care, and pain management discussed with patient. All questions answered, there are no further questions at this time. IV removed, catheter intact, site covered with dry dressing. Patient tolerated well. Newly prescribed medications discussed with patient including dosage, side effects, and uses. Patient verbally taught back information. Marlene Renee RN 09/24/222228 EMERGENCY DEPARTMENT ENCOUNTER Pt Name: Socorro Gonsales Birthdate 1995 Date of evaluation: 09/24/2022 ED Provider: Funmilayo Noriega DO CHIEF COMPLAINT Chief Complaint Patient presents with Abdominal Pain HISTORY OF PRESENT ILLNESS (Location/Symptom, Timing/Onset, Context/Setting, Quality, Duration, Modifying Factors, Severity) Note limiting factors. I wore appropriate PPE for the entirety of this encounter. HPI Socorro Gonsales is a 26 y.o. female medical history of abnormal uterine bleeding status post total abdominal hysterectomy (04/2022), intractable abdominal pain, chronic constipation, chronic pelvic pain, generalized anxiety disorder, h/o multiple abdominal surgeries (open duodenal mass removal, cholecystectomy, appendectomy, hysterectomy, lysis of adhesions) who presents to the emergency department with complaint of progressively worsening initially dull now sharp diffuse abdominal pain wrapping around into her low back (lower abdominal pain worse than upper abdominal pain). Nausea with emesis x3. Diarrhea, last bowel movement 45 minutes ago. Still passing gas. Endorsing bright red blood per rectum for last 1 week for which she is seen practitioner and was started on stool softeners. Denies fevers but endorses subjective chills. Per chart review, last CT imaging of abdomen/pelvis 04/2022. Per chart review, has had 6 CT abdomen/pelvis is in the last 2 years. Nursing Notes were reviewed. Limitations to history: None Outside historians: None REVIEW OF SYSTEMS Review of Systems Negative except per HPI PAST MEDICAL HISTORY Past Medical History: Diagnosis Date Asthma 2001 Pancreatitis 2019 SURGICAL HISTORY Past Surgical History: Procedure Laterality Date APPENDECTOMY 2020 CHOLECYSTECTOMY 2020 EXPLORATORY LAPAROTOMY 2019 HYSTERECTOMY 2021 CURRENT MEDICATIONS Previous Medications ACETAMINOPHEN EXTRA STRENGTH 500 MG TABLET Take 1,000 mg by mouth every 6 hours as needed. ALBUTEROL 108 (90 BASE) MCG/ACT INHALER Inhale 2 puffs every 6 hours as needed. ALBUTEROL 108 (90 BASE) MCG/ACT INHALER inhale 2 puffs by mouth and INTO THE LUNGS every 6 hours if neede... (REFER TO PRESCRIPTION NOTES). DOCUSATE SODIUM (COLACE) 100 MG CAPSULE Take 1 capsule (100 mg) by mouth 2 times daily for 10 days. ALLERGIES Ondansetron, Other, Codeine, Gabapentin, and Latex FAMILY HISTORY Family History Problem Relation Name Age of Onset Kidney disease Mother No Known Problems Father no contact with No Known Problems Sister No Known Problems Brother SOCIAL HISTORY Social History Socioeconomic History Marital status: Significant Other Tobacco Use Smoking status: Former Types: Cigarettes Smokeless tobacco: Former Vaping Use Vaping Use: Every day Substances: Nicotine SCREENINGS PHYSICAL EXAM ED Triage Vitals Temp Pulse Resp BP -- -- -- -- SpO2 Temp src Heart Rate Source Patient Position -- -- -- -- BP Location FiO2 (%) -- -- Physical Exam BP (!) 112/91 (BP Location: Right arm, Patient Position: Lying) Pulse 82 Temp 36.8 C (98.2 F) (Oral) Resp 20 Ht 1.651 m (5' 5) Wt 66.7 kg (147 lb) SpO2 100% BMI 24.46 kg/m Gen: Uncomfortable appearing CV: RRR, no murmurs Pulm: CTA BL Abdomen: Soft, TTP diffuse, no distension, voluntary gaurding DIAGNOSTIC RESULTS RADIOLOGY (Per Emergency Physician): CT A/P No acute process Interpretation per the Radiologist below, if available at the time of this note: CT abdomen pelvis w contrast Final Result 1. No evidence of mass, lymphadenopathy or inflammatory process. 2. Right iliopsoas bursa, unchanged. Report Dictated on Electronically Signed By: Jose Luis Chávez Electronically Signed Date/Time: 09/24/2022 9:22 PM EST LABS: Labs Reviewed CBC WITH AUTO DIFFERENTIAL - Abnormal Result Value Auto WBC 7.8 RBC 4.39 Hemoglobin 12.5 Hematocrit 37.5 MCV 85.4 MCH 28.5 MCHC 33.3 RDW 13.9 Platelets 309 MPV 9.9 Neutrophils Relative 67.4 Lymphocytes Relative 23.2 Monocytes Relative 6.7 Eosinophils Relative 1.8 Basophils Relative 0.6 Immature Grans % 0.3 (*) Neutrophils Absolute 5.2 Lymphocytes Absolute 1.8 Monocytes Absolute 0.5 Eosinophils Absolute 0.1 Basophils Absolute 0.1 Immature Grans Absolute 0.0 COMPREHENSIVE METABOLIC PANEL - Abnormal SODIUM 141 POTASSIUM 3.8 CHLORIDE 113 (*) CARBON DIOXIDE 22 ANION GAP 7 UREA NITROGEN 15 CREATININE 0.80 GLUCOSE 102 (*) CALCIUM 8.9 AST (SGOT) 26 ALT 15 ALKALINE PHOSPHATASE 50 ALBUMIN 4.7 BILIRUBIN, TOTAL 0.5 TOTAL PROTEIN 8.0 eGFR >90.0 COMPLETE URINALYSIS - Abnormal Color, Urine Yellow Clarity, Urine Clear pH, Urine 7.0 Leukocytes, Urine Negative Nitrite, Urine Negative Protein, Urine 10 (*) Glucose, Urine Normal Bilirubin, Urine Negative Ketones, Urine Negative Urobilinogen, Urine 2 (*) Blood, Urine Negative Volume, Urine 12 mL RBC, Urine 0-2 WBC, Urine 0-2 Squamous Epithelial, Urine 3-5 Bacteria, Urine Few (*) Amorphous Crystals, Urine Many (*) SPECIFIC GRAVITY OF URINE (NUMERIC) 1.037 (*) LIPASE - Normal LIPASE 223 LACTIC ACID, SEPSIS WITH REFLEX IF ELEVATED - Normal LACTIC ACID 1.0 COMPLETE URINALYSIS WITH REFLEX TO CULTURE Narrative: The following orders were created for panel order Urinalysis Complete with reflex to Culture. Procedure Abnormality Status --------- ------ Complete Urinalysis[[id number]] Abnormal Final result Please view results for these tests on the individual orders. All other labs were within normal range or not returned as of this dictation. EMERGENCY DEPARTMENT COURSE and DIFFERENTIAL DIAGNOSIS/MDM: Vitals: Vitals: 09/24/222005 BP: (!) 112/91 BP Location: Right arm Patient Position: Lying Pulse: 82 Resp: 20 Temp: 36.8 C (98.2 F) TempSrc: Oral SpO2: 100% Weight: 66.7 kg (147 lb) Height: 1.651 m (5' 5) 26-year-old female with medical history of multiple abdominal surgeries (open duodenal mass removal/cholecystectomy, appendectomy, hysterectomy, lysis of adhesions) and chronic intractable abdominal pain presenting with progressively worsening diffuse abdominal pain/vomiting/diarrhea. Vital signs stable, afebrile. Exam with diffuse tenderness and voluntary guarding. Differential includes acute intra-abdominal process such as SBO, diverticulitis, etc. Will obtain abdominal labs inclusive of lactic acid as well as CT imaging of the abdomen to further evaluate. Patient symptoms empirically treated with 1 L IV fluids, IV Reglan, IV morphine. Intra-abdominal labs unremarkable. No leukocytosis. No UTI. No TA. No transaminitis. Lipase within normal limits. CT imaging of abdomen/pelvis without acute intra-abdominal process identified. On reevaluation, patient reporting symptomatic improvement. Abdominal exam significantly improved. Suspect viral process. Discharged home with prescription for Bentyl and Pepcid. Patient with active Zofran prescription at home. Suspect symptomology secondary to foodborne illness versus viral process. Advised bland diet at home. Diagnostics interpreted by me: CT scan(s) no acute intra-abdominal process Labs unremarkable Chronic conditions impacting care: Multiple prior abdominal surgeries-duodenal mass removal, cholecystectomy, appendectomy, hysterectomy, lysis of adhesions ED Medications managed: Medications sodium chloride 0.9 % bolus 1,000 mL (0 mL IntraVENous Stopped 09/24/222133) metoclopramide (Reglan) injection 10 mg (10 mg IntraVENous Given 09/24/222028) morphine sulfate (PF) injection 4 mg (4 mg IntraVENous Given 09/24/222028) Prescription drugs considered: Bentyl/Pepcid Patient has active prescription for Zofran at home PROCEDURES: Unless otherwise noted below, none Procedures FINAL IMPRESSION 1. Abdominal pain, generalized DISPOSITION Discharge 09/24/2022 09:34:58 PM PATIENT REFERRED TO: Joseph Johnson DO [address] [place] [address] DISCHARGE MEDICATIONS: New Prescriptions DICYCLOMINE (BENTYL) 20 MG TABLET Take 1 tablet (20 mg) by mouth 2 times daily for 10 days. FAMOTIDINE (PEPCID) 20 MG TABLET Take 1 tablet (20 mg) by mouth 2 times daily for 15 days. (Comment: Please note this report has been produced using speech recognition software and may contain errors related to that system including errors in grammar, punctuation, and spelling, as well as words and phrases that may be inappropriate. If there are any questions or concerns please feel free to contact the dictating provider for clarification.) Funmilayo Noriega DO (electronically signed) Emergency Medicine Provider Funmilayo Noriega DO 09/24/222140 Pt presented to ED with lower abdominal pain. Pt stated she has seen her PCP last week for blood in stool. She felt better and did not witness any blood in the last week. It started again today, bright red with diarrhea. To she started to experience lower abdominal pain that was an ache and now has turned into a sharp/stabbing pain that wraps to her back. Pt did state that she vomited this evening x3. Pt has a history or an appendectomy, gallbladder removal, and hysterectomy. Pt is lying in bed with call light within reach. documented in this encounter 09-24-2022 Emergency department Triage note Pt presented to ED with lower abdominal pain. Pt stated she has seen her PCP last week for blood in stool. She felt better and did not witness any blood in the last week. It started again today, bright red with diarrhea. To she started to experience lower abdominal pain that was an ache and now has turned into a sharp/stabbing pain that wraps to her back. Pt did state that she vomited this evening x3. Pt has a history or an appendectomy, gallbladder removal, and hysterectomy. Pt is lying in bed with call light within reach. 09-24-2022 Physician Emergency department Note EMERGENCY DEPARTMENT ENCOUNTER Pt Name: Socorro Gonsales Birthdate 1995 Date of evaluation: 09/24/2022 ED Provider: Funmilayo Noriega DO CHIEF COMPLAINT Chief Complaint Patient presents with Abdominal Pain HISTORY OF PRESENT ILLNESS (Location/Symptom, Timing/Onset, Context/Setting, Quality, Duration, Modifying Factors, Severity) Note limiting factors. I wore appropriate PPE for the entirety of this encounter. HPI Socorro Gonsales is a 26 y.o. female medical history of abnormal uterine bleeding status post total abdominal hysterectomy (04/2022), intractable abdominal pain, chronic constipation, chronic pelvic pain, generalized anxiety disorder, h/o multiple abdominal surgeries (open duodenal mass removal, cholecystectomy, appendectomy, hysterectomy, lysis of adhesions) who presents to the emergency department with complaint of progressively worsening initially dull now sharp diffuse abdominal pain wrapping around into her low back (lower abdominal pain worse than upper abdominal pain). Nausea with emesis x3. Diarrhea, last bowel movement 45 minutes ago. Still passing gas. Endorsing bright red blood per rectum for last 1 week for which she is seen practitioner and was started on stool softeners. Denies fevers but endorses subjective chills. Per chart review, last CT imaging of abdomen/pelvis 04/2022. Per chart review, has had 6 CT abdomen/pelvis is in the last 2 years. Nursing Notes were reviewed. Limitations to history: None Outside historians: None REVIEW OF SYSTEMS Review of Systems Negative except per HPI PAST MEDICAL HISTORY Past Medical History: Diagnosis Date Asthma 2000 Pancreatitis 2019 SURGICAL HISTORY Past Surgical History: Procedure Laterality Date APPENDECTOMY 2020 CHOLECYSTECTOMY 2019 EXPLORATORY LAPAROTOMY 2018 HYSTERECTOMY 2021 CURRENT MEDICATIONS Previous Medications ACETAMINOPHEN EXTRA STRENGTH 500 MG TABLET Take 1,000 mg by mouth every 6 hours as needed. ALBUTEROL 108 (90 BASE) MCG/ACT INHALER Inhale 2 puffs every 6 hours as needed. ALBUTEROL 108 (90 BASE) MCG/ACT INHALER inhale 2 puffs by mouth and INTO THE LUNGS every 6 hours if neede... (REFER TO PRESCRIPTION NOTES). DOCUSATE SODIUM (COLACE) 100 MG CAPSULE Take 1 capsule (100 mg) by mouth 2 times daily for 10 days. ALLERGIES Ondansetron, Other, Codeine, Gabapentin, and Latex FAMILY HISTORY Family History Problem Relation Name Age of Onset Kidney disease Mother No Known Problems Father no contact with No Known Problems Sister No Known Problems Brother SOCIAL HISTORY Social History Socioeconomic History Marital status: Significant Other Tobacco Use Smoking status: Former Types: Cigarettes Smokeless tobacco: Former Vaping Use Vaping Use: Every day Substances: Nicotine SCREENINGS PHYSICAL EXAM ED Triage Vitals Temp Pulse Resp BP -- -- -- -- SpO2 Temp src Heart Rate Source Patient Position -- -- -- -- BP Location FiO2 (%) -- -- Physical Exam BP (!) 112/91 (BP Location: Right arm, Patient Position: Lying) Pulse 82 Temp 36.8 C (98.2 F) (Oral) Resp 20 Ht 1.651 m (5' 5) Wt 66.7 kg (147 lb) SpO2 100% BMI 24.46 kg/m Gen: Uncomfortable appearing CV: RRR, no murmurs Pulm: CTA BL Abdomen: Soft, TTP diffuse, no distension, voluntary gaurding DIAGNOSTIC RESULTS RADIOLOGY (Per Emergency Physician): CT A/P No acute process Interpretation per the Radiologist below, if available at the time of this note: CT abdomen pelvis w contrast Final Result 1. No evidence of mass, lymphadenopathy or inflammatory process. 2. Right iliopsoas bursa, unchanged. Report Dictated on Electronically Signed By: Jose Luis Chávez Electronically Signed Date/Time: 09/24/2022 9:22 PM EST LABS: Labs Reviewed CBC WITH AUTO DIFFERENTIAL - Abnormal Result Value Auto WBC 7.8 RBC 4.39 Hemoglobin 12.5 Hematocrit 37.5 MCV 85.4 MCH 28.5 MCHC 33.3 RDW 13.9 Platelets 309 MPV 9.9 Neutrophils Relative 67.4 Lymphocytes Relative 23.2 Monocytes Relative 6.7 Eosinophils Relative 1.8 Basophils Relative 0.6 Immature Grans % 0.3 (*) Neutrophils Absolute 5.2 Lymphocytes Absolute 1.8 Monocytes Absolute 0.5 Eosinophils Absolute 0.1 Basophils Absolute 0.1 Immature Grans Absolute 0.0 COMPREHENSIVE METABOLIC PANEL - Abnormal SODIUM 141 POTASSIUM 3.8 CHLORIDE 113 (*) CARBON DIOXIDE 22 ANION GAP 7 UREA NITROGEN 15 CREATININE 0.80 GLUCOSE 102 (*) CALCIUM 8.9 AST (SGOT) 26 ALT 15 ALKALINE PHOSPHATASE 50 ALBUMIN 4.7 BILIRUBIN, TOTAL 0.5 TOTAL PROTEIN 8.0 eGFR >90.0 COMPLETE URINALYSIS - Abnormal Color, Urine Yellow Clarity, Urine Clear pH, Urine 7.0 Leukocytes, Urine Negative Nitrite, Urine Negative Protein, Urine 10 (*) Glucose, Urine Normal Bilirubin, Urine Negative Ketones, Urine Negative Urobilinogen, Urine 2 (*) Blood, Urine Negative Volume, Urine 12 mL RBC, Urine 0-2 WBC, Urine 0-2 Squamous Epithelial, Urine 3-5 Bacteria, Urine Few (*) Amorphous Crystals, Urine Many (*) SPECIFIC GRAVITY OF URINE (NUMERIC) 1.037 (*) LIPASE - Normal LIPASE 223 LACTIC ACID, SEPSIS WITH REFLEX IF ELEVATED - Normal LACTIC ACID 1.0 COMPLETE URINALYSIS WITH REFLEX TO CULTURE Narrative: The following orders were created for panel order Urinalysis Complete with reflex to Culture. Procedure Abnormality Status --------- ------ Complete Urinalysis[[id number]] Abnormal Final result Please view results for these tests on the individual orders. All other labs were within normal range or not returned as of this dictation. EMERGENCY DEPARTMENT COURSE and DIFFERENTIAL DIAGNOSIS/MDM: Vitals: Vitals: 09/24/222005 BP: (!) 112/91 BP Location: Right arm Patient Position: Lying Pulse: 82 Resp: 20 Temp: 36.8 C (98.2 F) TempSrc: Oral SpO2: 100% Weight: 66.7 kg (147 lb) Height: 1.651 m (5' 5) 26-year-old female with medical history of multiple abdominal surgeries (open duodenal mass removal/cholecystectomy, appendectomy, hysterectomy, lysis of adhesions) and chronic intractable abdominal pain presenting with progressively worsening diffuse abdominal pain/vomiting/diarrhea. Vital signs stable, afebrile. Exam with diffuse tenderness and voluntary guarding. Differential includes acute intra-abdominal process such as SBO, diverticulitis, etc. Will obtain abdominal labs inclusive of lactic acid as well as CT imaging of the abdomen to further evaluate. Patient symptoms empirically treated with 1 L IV fluids, IV Reglan, IV morphine. Intra-abdominal labs unremarkable. No leukocytosis. No UTI. No TA. No transaminitis. Lipase within normal limits. CT imaging of abdomen/pelvis without acute intra-abdominal process identified. On reevaluation, patient reporting symptomatic improvement. Abdominal exam significantly improved. Suspect viral process. Discharged home with prescription for Bentyl and Pepcid. Patient with active Zofran prescription at home. Suspect symptomology secondary to foodborne illness versus viral process. Advised bland diet at home. Diagnostics interpreted by me: CT scan(s) no acute intra-abdominal process Labs unremarkable Chronic conditions impacting care: Multiple prior abdominal surgeries-duodenal mass removal, cholecystectomy, appendectomy, hysterectomy, lysis of adhesions ED Medications managed: Medications sodium chloride 0.9 % bolus 1,000 mL (0 mL IntraVENous Stopped 09/24/222133) metoclopramide (Reglan) injection 10 mg (10 mg IntraVENous Given 09/24/222028) morphine sulfate (PF) injection 4 mg (4 mg IntraVENous Given 09/24/222028) Prescription drugs considered: Bentyl/Pepcid Patient has active prescription for Zofran at home PROCEDURES: Unless otherwise noted below, none Procedures FINAL IMPRESSION 1. Abdominal pain, generalized DISPOSITION Discharge 09/24/2022 09:34:58 PM PATIENT REFERRED TO: Joseph Johnson DO [address] [place] [id number] DISCHARGE MEDICATIONS: New Prescriptions DICYCLOMINE (BENTYL) 20 MG TABLET Take 1 tablet (20 mg) by mouth 2 times daily for 10 days. FAMOTIDINE (PEPCID) 20 MG TABLET Take 1 tablet (20 mg) by mouth 2 times daily for 15 days. (Comment: Please note this report has been produced using speech recognition software and may contain errors related to that system including errors in grammar, punctuation, and spelling, as well as words and phrases that may be inappropriate. If there are any questions or concerns please feel free to contact the dictating provider for clarification.) Funmilayo Noriega DO (electronically signed) Emergency Medicine Provider Funmilayo Noriega DO 09/24/222140 [facility] 09-16-2022 Telephone encounter Note Placed call to patient. Was able to speak to patient. All concerns in message have been addressed. [facility] 09-16-2022 Miscellaneous Notes Placed call to patient. Was able to speak to patient. All concerns in message have been addressed. Name of caller: Socorro Contact phone number: [phone] Relationship to Patient: patient Provider: Dr. Johnson Practice: [facility] Chief Complaint/Reason for Call: Pt states she saw her Lab work from 09/15/2022 was complete. Pt is requesting a call back from the office to discuss the lab work after it has been reviewed. Please advise. Best time of day caller can be reached: Any Patient advised that office/PCP has 24-48 business hours to return their call: No documented in this encounter 09-16-2022 Telephone encounter Note Name of caller: Socorro Contact phone number: [phone] Relationship to Patient: patient Provider: Dr. Johnson Practice: [facility] Chief Complaint/Reason for Call: Pt states she saw her Lab work from 09/15/2022 was complete. Pt is requesting a call back from the office to discuss the lab work after it has been reviewed. Please advise. Best time of day caller can be reached: Any Patient advised that office/PCP has 24-48 business hours to return their call: No 09-15-2022 History of Present illness Narrative Images from the original note were not included. [facility] [address] [address] Dept: [phone] Dept Loc: [phone] Visit type: Established Patient Reason for Visit: Rectal Bleeding Assessment and Plan 1. Rectal bleeding Comments: No obvious signs of current bleeding we will continue to follow Orders: - CBC auto differential - Comprehensive metabolic panel 2. Other fatigue Comments: Generalized fatigue x1 month history of chronic anemia Orders: - CBC auto differential - Comprehensive metabolic panel 3. Constipation, unspecified constipation type Comments: Multiple abdominal surgeries history of constipation no signs of obstruction Orders: - docusate sodium (Colace) 100 MG capsule; Take 1 capsule (100 mg) by mouth 2 times daily for 10 days., Starting Wed09/15/2022, Until Wed09/25/2022, Normal 4. Anemia, unspecified type Comments: History of chronic anemia we will check CBC today Follow up in about 6 months (around 03/15/2023). Patient does not appear acutely septic or toxic. Vital signs are stable. She does not look or appear grossly anemic her conjunctive are nice and pink. Abdominal exam is benign there is no signs of acute peritonitis no guarding or rigidity. She does not appear pale in color. We did discuss follow-up with GI. I did explain at this time the stool sample did is not Hemoccult positive and there is no signs of hemorrhoids. That should the bleeding worsen continue or should she feel lightheaded or dizzy or any other unusual symptoms seek evaluation in the emergency room. Should she have persistent bleeding with no other symptoms we will refer to GI as she has seen them in the past last colonoscopy was several years ago. She was comfortable with this plan all questions were answered at the bedside. Subjective HPI this is a very pleasant unfortunate 26-year-old females had multiple surgical procedures on her abdomen including gallbladder cholecystectomy and a hysterectomy. She subsequently has had multiple adhesions she has had adhesion lysis in the past as well. She woke up this morning she has been constipated she moved her bowels and had a bunch of bright red blood in the toilet bowl. She does state she has little bit of mild stomach cramping. She has had problems with adhesions and bleeding in the past but states this does not feel like anything like she had in the past its been much worse in the past this is much more mild. She states if it was just on the toilet tissue she prior wanted given the concern that she was told she had hemorrhoids. But she states there is definitely bright red blood in the toilet bowl. She denies any nausea vomiting or diarrhea. She complains more of a constipation she been constipated lately. She does states she has a history of chronic anemia and was told was iron deficient but she does not take any iron supplements. She denies any urinary symptoms no frequency urgency burning has had a previous hysterectomy. Patient also endorses a generalized sensation of fatigue states she just has not felt well over the last month with a generalized sensation of fatigue. No one else has been sick. She does have an underlying of asthma and states it seems to be well controlled. She did also endorse some mild itchiness to the rectal area no history of injury or trauma. Review of Systems Constitutional: Positive for fatigue. Negative for chills, diaphoresis and fever. HENT: Negative for congestion, sinus pressure, sinus pain and sore throat. Respiratory: Negative for cough, shortness of breath and wheezing. Cardiovascular: Negative for chest pain and palpitations. Gastrointestinal: Positive for abdominal pain (Nonspecific lower abdominal cramp no specific pain), anal bleeding and constipation. Negative for blood in stool, diarrhea, nausea, rectal pain and vomiting. Did describe some rectal itching as described. As well as some blood in the toilet but did not appear to be blood in the stool. Genitourinary: Negative for decreased urine volume, difficulty urinating, dysuria and frequency. Skin: Negative for color change and pallor. Allergies Allergen Reactions Ondansetron Itching Itching and redness in arm when given Zofran IV Other Other nasal congestion Seasonal Codeine Itching and Rash Gabapentin Other [place] like Heart was racing [place] like Heart was racing Latex Itching and Rash Other reaction(s): Hives Outpatient Medications Prior to Visit Medication Sig Dispense Refill Acetaminophen Extra Strength 500 MG tablet Take 1,000 mg by mouth every 6 hours as needed. albuterol 108 (90 Base) MCG/ACT inhaler Inhale 2 puffs every 6 hours as needed. albuterol 108 (90 Base) MCG/ACT inhaler inhale 2 puffs by mouth and INTO THE LUNGS every 6 hours if neede... (REFER TO PRESCRIPTION NOTES). ondansetron ODT (Zofran-ODT) 4 MG disintegrating tablet TAKE 1 TABLET BY MOUTH 3 TIMES DAILY NEEDED FOR NAUSEA OR VOMITING 60 tablet 0 polyethylene glycol, PEG, 3350 (Glycolax) 17 GM/SCOOP powder MIX 17 G IN 8 OUNCES OF WATER OR JUICE AND DRINK ONCE DAILY 1530 g 1 No facility-administered medications prior to visit. Past Medical History: Diagnosis Date Asthma 2001 Pancreatitis 2019 Social History Tobacco Use Smoking status: Former Types: Cigarettes Smokeless tobacco: Former Substance Use Topics Alcohol use: Not on file Past Surgical History: Procedure Laterality Date APPENDECTOMY 2020 CHOLECYSTECTOMY 2019 EXPLORATORY LAPAROTOMY 2019 HYSTERECTOMY 2021 Family History Problem Relation Name Age of Onset Kidney disease Mother No Known Problems Father no contact with No Known Problems Sister No Known Problems Brother Objective BP 110/79 (BP Location: Left arm, Patient Position: Sitting, BP Cuff Size: Large adult) Pulse 106 Temp 36.8 C (98.2 F) (Temporal) Ht 5' 5 (1.651 m) Wt 146 lb (66.2 kg) SpO2 98% BMI 24.30 kg/m Physical Exam Constitutional: Appearance: Normal appearance. HENT: Right Ear: Tympanic membrane and ear canal normal. Left Ear: Tympanic membrane and ear canal normal. Mouth/Throat: Mouth: Mucous membranes are moist. Pharynx: Oropharynx is clear. Eyes: Extraocular Movements: Extraocular movements intact. Pupils: Pupils are equal, round, and reactive to light. Cardiovascular: Rate and Rhythm: Normal rate and regular rhythm. Heart sounds: Normal heart sounds. Pulmonary: Effort: Pulmonary effort is normal. No respiratory distress. Breath sounds: Normal breath sounds. Abdominal: General: Bowel sounds are normal. Palpations: Abdomen is soft. Genitourinary: Rectum: Normal. Guaiac result negative. 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 Rectal exam is completely normal devoid of any hemorrhoids. Good sphincter tone. No masses or obvious lesions. CHRISTY was performed there is no obvious blood or bleeding. Stool is brown there is no signs of melena it was Hemoccult negative at the bedside. Musculoskeletal: Cervical back: Normal range of motion and neck supple. Skin: General: Skin is warm and dry. Neurological: Mental Status: She is alert. Psychiatric: Mood and Affect: Mood normal. Data Reviewed and Summarized Labs: Imaging/Testing: Lizeth Churchill PA-C 09/15/2022 Please note that portions of this note may have been completed with voice recognition software. Documentation reviewed prior to signing but minor errors in space systems operations craftsman may have occurred. documented in this encounter [employer] 09-15-2022 Telephone encounter Note S: The [facility] is calling the [facility] About rectal bleeding B: This was this morning. A: She states it was in the toilet bowl after a bowel movement. The water was red and there is no blood without a bowel movement or in her underwear. She has had this in the past and was told it was secondary to abdominal adhesions - she had abdominal pain with this but denies any abdominal pain with the present episode. She is constipated. R: appointment made, insurance verified - advice plenty of fluids, regular protracted activity such as walking for bowel motility and high fiber diet. Reason for Disposition MODERATE rectal bleeding (small blood clots, passing blood without stool, or toilet water turns red) Protocols used: Rectal [id number] [facility] [employer] 09-15-2022 Miscellaneous Notes S: The patient is calling the [facility] About rectal bleeding B: This was this morning. A: She states it was in the toilet bowl after a bowel movement. The water was red and there is no blood without a bowel movement or in her underwear. She has had this in the past and was told it was secondary to abdominal adhesions - she had abdominal pain with this but denies any abdominal pain with the present episode. She is constipated. R: appointment made, insurance verified - advice plenty of fluids, regular protracted activity such as walking for bowel motility and high fiber diet. Reason for Disposition MODERATE rectal bleeding (small blood clots, passing blood without stool, or toilet water turns red) Protocols used: Rectal [id number] documented in this encounter 08-21-2022 History of Present illness Narrative Pt has not been seen in > 30 days and has not called to [facility]. Will discharge at this time. documented in this encounter 06-12-2022 Instructions Mirian Calloway APRN.JORDANA - 06/12/2022 12:19 PM EDT -Increase fluid intake. --Rest as much as possible. - Nasal saline spray, adrián pot, flonase Take the entire course of antibiotics as prescribed. DO NOT stop taking it early, even if you are feeling better. -Monitor for signs of worsening infection: increased temperature, pain in face, ear pain or headaches or increase in nasal congestion/mucous that is not improving. -Educated patient on side effects of medication. Probiotic: Floramelanien, Cultureyesi, Align. Do not take with antibiotic, make sure 2 hours between. documented in this encounter [facility] 06-12-2022 History of Present illness Narrative Subjective The history is provided by the patient. No agriculture scientist was used. HPI Socorro Gonsales is a 26 year old female who presents today for CC of cough, congestion, runny nose, sinus pressure that started 11 days ago and got slightly better and in the past 2 days significantly worsened. She has used prednisone, flonase, tylenol without relief. She has a h/o seasonal allergies and sinusitis. BP 110/78 Pulse 66 Temp 36.2 C (97.1 F) (Tympanic) Resp 18 Wt 66.5 kg (146 lb 9.6 oz) LMP 02/07/2022 SpO2 99% BMI 24.40 kg/m Social History Tobacco Use Smoking status: Former Years: 3.00 Types: Cigarettes Smokeless tobacco: Never Substance Use Topics Alcohol use: Yes Comment: rarely Drug use: No PAST MEDICAL HISTORY Diagnosis Date Anemia anxiety Asthma I have confirmed and edited as necessary, the [facility] Review of Systems Constitutional: Negative for chills, fever and malaise/fatigue. HENT: Positive for congestion and sinus pain. Negative for ear pain and sore throat. Post nasal drainage Respiratory: Positive for cough. Negative for sputum production, shortness of breath and wheezing. Cardiovascular: Negative for chest pain. Musculoskeletal: Negative for myalgias. Neurological: Positive for headaches. Objective Physical Exam Vitals and nursing note reviewed. HENT: Head: Normocephalic and atraumatic. Right Ear: Ear canal and external ear normal. A middle ear effusion is present. Tympanic membrane is bulging. Left Ear: Ear canal and external ear normal. A middle ear effusion is present. Tympanic membrane is bulging. Nose: Mucosal edema, congestion and rhinorrhea present. Right Sinus: Maxillary sinus tenderness and frontal sinus tenderness present. Left Sinus: Maxillary sinus tenderness and frontal sinus tenderness present. Mouth/Throat: Pharynx: Uvula midline. No oropharyngeal exudate or posterior oropharyngeal erythema. Cardiovascular: Rate and Rhythm: Normal rate and regular rhythm. Heart sounds: Normal heart sounds. Pulmonary: Effort: Pulmonary effort is normal. Breath sounds: Normal breath sounds. Lymphadenopathy: Head: Right side of head: No submental, submandibular or tonsillar adenopathy. Left side of head: No submental, submandibular or tonsillar adenopathy. Cervical: No cervical adenopathy. Skin: General: Skin is warm and dry. Neurological: Mental Status: She is alert. Psychiatric: Mood and Affect: Affect normal. ASSESSMENT/PLAN: 1. Acute non-recurrent pansinusitis - ICD9: 461.8, ICD10: J01.40 - Will begin treatment with Augmentin 875 mg PO BID for 5 days - Supportive care with plenty of fluids, rest, and analgesia prn. - Follow up in one week if symptoms persist or worsen. Diagnosis and treatment plan were discussed and questions were answered to the patient's satisfaction. Pt acknowledged understanding of concepts and follow up plan. Specific signs and symptoms that would indicate the need for higher level of care were discussed in detail warranting prompt ER evaluation. Mirian Calloway APRN.JORDANA documented in this encounter [facility] 06-03-2022 History of Present illness Narrative Subjective Nasal Congestion Associated symptoms include chills, congestion, coughing, ear pain (right), headaches and a sore throat. Pertinent negatives include no shortness of breath. Socorro Gonsales is a 26 year old female who presents with sore throat, productive cough, congestion, headache, fatigue, chills and body aches x 1 day. Pt rates sore throat 03/18. Pt states that both of her children are currently sick. Pt states that she had covid-19 in April of 2022. Pt endorses a history of asthma, and states she is out of her inhaler. Pt denies fever, SOB or abdominal symptoms. Tylenol taken at home without relief. Review of Systems Constitutional: Positive for chills. Negative for fever. HENT: Positive for congestion, ear pain (right) and sore throat. Negative for sinus pain. Eyes: Negative for discharge and redness. Respiratory: Positive for cough and sputum production. Negative for shortness of breath. Gastrointestinal: Negative for abdominal pain, nausea and vomiting. Musculoskeletal: Positive for myalgias. Neurological: Positive for headaches. BP 122/70 Pulse 112 Temp 36.8 C (98.2 F) Resp 18 Wt 66.2 kg (146 lb) LMP 02/07/2022 SpO2 99% BMI 24.30 kg/m PAST MEDICAL HISTORY Diagnosis Date Anemia anxiety Asthma PAST SURGICAL HISTORY Procedure Laterality Date LAPAROSCOPY W/RMVL ADNEXAL STRUCTURES Bilateral 04/28/2018 l/s bilateral salpingectomy PAST SURGICAL HISTORY OF wisdom teeth PAST SURGICAL HISTORY OF 03/2020 exploratory laparoscopy ALLERGIES Gabapentin, Latex, Seasonal Allergies, and Zofran [Ondansetron] MEDICATIONS predniSONE (DELTASONE) 20 mg tablet Take 2 tablets by mouth once daily for 4 days. Take daily with food. albuterol HFA (PROVENTIL HFA, VENTOLIN HFA) 90 mcg/actuation inhaler Inhale 2 Puffs as instructed every 6 hours as needed for wheezing/shortness of breath. Inhalational Spacing Device 1 Device one time only for 1 dose. fluticasone (FLONASE) 50 mcg/actuation nasal spray Use 2 Sprays in each nostril once daily for 7 days. Rinse mouth after use. ondansetron orally disintegrating (ZOFRAN ODT) 4 mg disintegrating tablet Take 1 tablet by mouth every 8 hours as needed. (Patient not taking: Reported on 06/03/2022) naproxen (NAPROSYN) 500 mg tablet Take 1 tablet by mouth twice daily as needed. TAKE WITH FOOD (Patient not taking: Reported on 06/03/2022) albuterol HFA (PROVENTIL HFA, VENTOLIN HFA) 90 mcg/actuation inhaler Inhale 2 Puffs as instructed every 4 hours as needed. (Patient not taking: Reported on 06/03/2022) fluticasone (FLONASE) 50 mcg/actuation nasal spray Use 2 Sprays in each nostril once daily. Rinse mouth after use. (Patient not taking: Reported on 04/16/2021 ) acetaminophen (TYLENOL) 325 mg tablet Take 650 mg by mouth every 6 hours as needed. (Patient not taking: Reported on 06/03/2022) FAMILY HISTORY Problem Relation Age of Onset Heart Mother Seizures Mother Stroke Mother Multiple Sclerosis Mother Psychiatry Sister Manic Depression Hypertension Maternal Grandfather Breast Cancer Maternal Aunt Hypertension Maternal Uncle Social History Tobacco Use Smoking status: Former Years: 3.00 Types: Cigarettes Smokeless tobacco: Never Substance Use Topics Alcohol use: Yes Comment: rarely Drug use: No Objective Physical Exam Vitals and nursing note reviewed. Constitutional: Appearance: Normal appearance. HENT: Head: Normocephalic and atraumatic. Right Ear: Tympanic membrane and ear canal normal. Left Ear: Tympanic membrane and ear canal normal. Nose: Congestion and rhinorrhea present. Right Turbinates: Swollen. Left Turbinates: Swollen. Mouth/Throat: Pharynx: Posterior oropharyngeal erythema present. No oropharyngeal exudate. Tonsils: 0 on the right. 0 on the left. Eyes: Conjunctiva/sclera: Conjunctivae normal. Cardiovascular: Rate and Rhythm: Normal rate and regular rhythm. Pulmonary: Effort: Pulmonary effort is normal. Breath sounds: Wheezing (RUL) present. Abdominal: Palpations: Abdomen is soft. Lymphadenopathy: Cervical: No cervical adenopathy. Skin: General: Skin is warm and dry. Neurological: Mental Status: She is alert. ASSESSMENT/PLAN: 1. Sore throat - ICD9: 462, ICD10: J02.9 (primary diagnosis) - Rapid Strep negative in the office today - STREP A MOLECULAR (POC) 2. Wheezing - ICD9: 786.07, ICD10: R06.2 - PREDNISONE 20 MG TABLET - ALBUTEROL SULFATE HFA 90 MCG/ACTUATION AEROSOL INHALER - INHALATIONAL SPACING DEVICE 3. URI, acute - ICD9: 465.9, ICD10: J06.9 - Discussed viral etiology and rationale for treatment. - Symptomatic treatment with prn analgesia - Supportive care with fluids and rest - Follow up in one week if symptoms persist or sooner if worsening of symptoms - FLUTICASONE PROPIONATE 50 MCG/ACTUATION NASAL SPRAY,SUSPENSION Sheri Laura APRN Student TEACHING PROVIDER (Physician/PA/PHOTOENGRAVING HELPER) NOTE OF PERSONAL INVOLVEMENT IN CARE: I have personally seen and examined the patient and performed the medical decision-making components. I have reviewed the Advanced Practice Registered Nurse (PHOTOENGRAVING HELPER) Student's documentation and verified the findings in the note as written. Any additions or changes are noted in bold/italics. Signature: Bro Lucio Date: 06/03/2022 Time: 12:08 PM documented in this encounter [facility] 06-03-2022 Instructions Sheri Laura - 06/03/2022 10:09 AM EDT ASSESSMENT/PLAN: 1. Sore throat - ICD9: 462, ICD10: J02.9 (primary diagnosis) - Rapid Strep negative in the office today - STREP A MOLECULAR (POC) 2. Wheezing - ICD9: 786.07, ICD10: R06.2 - PREDNISONE 20 MG TABLET - ALBUTEROL SULFATE HFA 90 MCG/ACTUATION AEROSOL INHALER - INHALATIONAL SPACING DEVICE 3. URI, acute - ICD9: 465.9, ICD10: J06.9 - Discussed viral etiology and rationale for treatment. - Symptomatic treatment with prn analgesia - Supportive care with fluids and rest - Follow up in one week if symptoms persist or sooner if worsening of symptoms - FLUTICASONE PROPIONATE 50 MCG/ACTUATION NASAL SPRAY,SUSPENSION Sheri Laura APRN Student documented in this encounter [facility] 05-06-2022 Note 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 Discharge Summar y Patient Name: Socorro Gonsales Patient : 1995 Primary Care Physician: Joseph Johnson DO Admit Date: 05/05/2022 Attending Provider: Lars Crump MD Principal Diagnosis: postoperative pain control s/p TLH, cysto Other Diagnosis: Generalized abdominal pain [R10.84] Post-operative pain [G89.18] Patient Active Problem List Diagnosis Allergic rhinitis Asthma PFO (patent foramen ovale) YVONNE (generalized anxiety disorder) Syncope and collapse Tobacco abuse Precordial pain Duodenal mass Choledochal cyst Abnormal findings on imaging of biliary tract LUQ abdominal pain Non-intractable vomiting Chronic constipation Abnormal barium enema Hydronephrosis with ureteropelvic junction (UPJ) obstruction Anemia Right upper quadrant abdominal pain Abdominal pain Pelvic pain Intractable abdominal pain Diarrhea Hematuria, gross Right lower quadrant abdominal pain Abnormal uterine bleeding (AUB) Post-operative pain Surgical Operations & Procedures: None Consultations: None Pertinent Findings & Procedures: Socorro Gonsales is a 26 y.o. female admitted on POD #1 s/p TLH, cysto for pain control. She was unable to fill her postop and had worsening pain for this reason. Workup in the ED showed no evidence of infection, and CT was negative. By CT there were findings concerning for ileus, but unlikely so shortly postop, and she had a bowel movement during admission. Her pain improved and she was deemed stable for discharge. Follow up in 2 weeks. Discharge instructions reviewed and questions answered. Course of patient: normal Discharge to: Home Wound Care: OK to shower, do not scrub incisions Recommendations on Discharge: Medications: Medication List START taking these medications polyethylene glycol 17 GM/SCOOP powder Commonly known as: GLYCOLAX Take 17 g by mouth daily CONTINUE taking these medications acetaminophen 500 MG tablet Commonly known as: TYLENOL Take 2 tablets by mouth every 6 hours as needed for Pain albuterol sulfate HFA 108 (90 Base) MCG/ACT inhaler Commonly known as: PROVENTIL;VENTOLIN;PROAIR BUDESONIDE PO dicyclomine 10 MG capsule Commonly known as: BENTYL Take 1 capsule by mouth 4 times daily for 10 days diphenhydrAMINE 25 MG tablet Commonly known as: BENADRYL docusate sodium 100 MG capsule Commonly known as: COLACE Take 1 capsule by mouth 2 times daily as needed for Constipation ibuprofen 600 MG tablet Commonly known as: ADVIL;MOTRIN Take 1 tablet by mouth every 6 hours as needed for Pain omeprazole 40 MG delayed release capsule Commonly known as: PRILOSEC Take 1 capsule by mouth every morning (before breakfast) for 14 days ondansetron 4 MG disintegrating tablet Commonly known as: ZOFRAN-ODT Take 1 tablet by mouth 3 times daily as needed for Nausea or Vomiting oxyCODONE 5 MG immediate release tablet Commonly known as: Roxicodone Take 1 tablet by mouth every 6 hours as needed for Pain for up to 5 days. Intended supply: 3 days. Take lowest dose possible to manage pain Where to Get Your Medications These medications were sent to [address] - [phone] - [phone] [address] [phone] ondansetron 4 MG disintegrating tablet polyethylene glycol 17 GM/SCOOP powder Activity: no heavy lifting for 6 weeks. Pelvic rest x6 weeks Diet: regular diet Follow up: 05/18/[address] Crump Condition on discharge: good and stable Discharge Date: 05/06/22 Comments: Home care, Follow-up care, restrictions reviewed. Jaden Acevedo MD 05/06/2022, 3:49 PM Hospital Care (Independent): I independently saw and evaluated the patient. I agree with the findings and plan of care as documented in the resident's note. [facility] 05-06-2022 Hospital course Narrative Images from the original note were not included. 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 Patient Name: Socorro Gonsales Patient : 1995 Primary Care Physician: Joseph Johnson DO Admit Date: 05/05/2022 Attending Provider: Lars Crump MD Principal Diagnosis: postoperative pain control s/p TLH, cysto Other Diagnosis: Generalized abdominal pain [R10.84] Post-operative pain [G89.18] Patient Active Problem List Diagnosis Allergic rhinitis Asthma PFO (patent foramen ovale) YVONNE (generalized anxiety disorder) Syncope and collapse Tobacco abuse Precordial pain Duodenal mass Choledochal cyst Abnormal findings on imaging of biliary tract LUQ abdominal pain Non-intractable vomiting Chronic constipation Abnormal barium enema Hydronephrosis with ureteropelvic junction (UPJ) obstruction Anemia Right upper quadrant abdominal pain Abdominal pain Pelvic pain Intractable abdominal pain Diarrhea Hematuria, gross Right lower quadrant abdominal pain Abnormal uterine bleeding (AUB) Post-operative pain Surgical Operations & Procedures: None Consultations: None Pertinent Findings & Procedures: Socorro Gonsales is a 26 y.o. female admitted on POD #1 s/p TLH, cysto for pain control. She was unable to fill her postop and had worsening pain for this reason. Workup in the ED showed no evidence of infection, and CT was negative. By CT there were findings concerning for ileus, but unlikely so shortly postop, and she had a bowel movement during admission. Her pain improved and she was deemed stable for discharge. Follow up in 2 weeks. Discharge instructions reviewed and questions answered. Course of patient: normal Discharge to: Home Wound Care: OK to shower, do not scrub incisions Recommendations on Discharge: Medications: Medication List START taking these medications polyethylene glycol 17 GM/SCOOP powder Commonly known as: GLYCOLAX Take 17 g by mouth daily CONTINUE taking these medications acetaminophen 500 MG tablet Commonly known as: TYLENOL Take 2 tablets by mouth every 6 hours as needed for Pain albuterol sulfate HFA 108 (90 Base) MCG/ACT inhaler Commonly known as: PROVENTIL;VENTOLIN;PROAIR BUDESONIDE PO dicyclomine 10 MG capsule Commonly known as: BENTYL Take 1 capsule by mouth 4 times daily for 10 days diphenhydrAMINE 25 MG tablet Commonly known as: BENADRYL docusate sodium 100 MG capsule Commonly known as: COLACE Take 1 capsule by mouth 2 times daily as needed for Constipation ibuprofen 600 MG tablet Commonly known as: ADVIL;MOTRIN Take 1 tablet by mouth every 6 hours as needed for Pain omeprazole 40 MG delayed release capsule Commonly known as: PRILOSEC Take 1 capsule by mouth every morning (before breakfast) for 14 days ondansetron 4 MG disintegrating tablet Commonly known as: ZOFRAN-ODT Take 1 tablet by mouth 3 times daily as needed for Nausea or Vomiting oxyCODONE 5 MG immediate release tablet Commonly known as: Roxicodone Take 1 tablet by mouth every 6 hours as needed for Pain for up to 5 days. Intended supply: 3 days. Take lowest dose possible to manage pain Where to Get Your Medications These medications were sent to [facility] [address] - [phone] - [phone] [place] [id number] ondansetron 4 MG disintegrating tablet polyethylene glycol 17 GM/SCOOP powder Activity: no heavy lifting for 6 weeks. Pelvic rest x6 weeks Diet: regular diet Follow up: 05/18/[address] Crump Condition on discharge: good and stable Discharge Date: 05/06/22 Comments: Home care, Follow-up care, restrictions reviewed. Jaden Acevedo MD 05/06/2022, 3:49 PM Hospital Care (Independent): I independently saw and evaluated the patient. I agree with the findings and plan of care as documented in the resident's note. documented in this encounter [facility] [place] Phone: 05-06-2022 History of Present illness Narrative Images from the original note were not included. 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 female No obstetric history on file., POD # 2 s/p TLH, Cysto admitted for postoperative pain Patient seen and examined. She had no acute complaints this am. Pain is controlled. Says her nausea is improved and pain is much better, although still rating at 9/10. Patient is tolerating oral intake. She is urinating. She denies any vaginal bleeding. She is ambulating with assistance. She is passing flatus. She denies Fever/Chills, Chest Pain, SOB, N/V. Vitals: Vitals: 05/05/22 1651 05/05/22 1825 05/05/22 2222 05/06/22 0218 BP: 110/71 106/73 102/64 97/63 Pulse: 75 64 92 60 Resp: 17 17 18 18 Temp: TempSrc: SpO2: 99% 99% 97% 95% Weight: Height: Intake/Output: Current Shift: No intake/output data recorded. Physical Exam: Gen: NAD, alert and cooperative HEENT: Normocephalic, atraumatic, EOMI, MMM Resp: CTABL, no WRR Card: RRR, no murmur Abd: soft, NT/ND, no rebound, no guarding. Present BS Incisions: laparoscopic incisions with some blood staining C/D/I Ext: No LE edema, no calf tenderness or swelling Medications: Current Facility-Administered Medications Medication Dose Route Frequency Provider Last Rate Last Admin magnesium citrate solution 296 mL 296 mL Oral Once Jaden Acevedo MD sodium chloride flush 0.9 % injection 5-40 mL 5-40 mL IntraVENous 2 times per day Pam Briggs MD sodium chloride flush 0.9 % injection 5-40 mL 5-40 mL IntraVENous PRN Pam Briggs MD 0.9 % sodium chloride infusion IntraVENous PRN Pam Briggs MD sodium chloride flush 0.9 % injection 10 mL 10 mL IntraVENous 2 times per day Yariel M Cheng, DO 10 mL at 05/06/22 0014 sodium chloride flush 0.9 % injection 10 mL 10 mL IntraVENous PRN Yariel Anand, DO 0.9 % sodium chloride infusion IntraVENous PRN Yariel Salinas Cheng, DO ondansetron (ZOFRAN-ODT) disintegrating tablet 4 mg 4 mg Oral Q8H PRN Yariel Salinas Cheng, DO Or ondansetron (ZOFRAN) injection 4 mg 4 mg IntraVENous Q6H PRN Yariel M Cheng, DO 4 mg at 05/05/22 1859 acetaminophen (TYLENOL) tablet 1,000 mg 1,000 mg Oral Q8H Yariel M Cheng, DO 1,000 mg at 05/06/22 0253 oxyCODONE (ROXICODONE) immediate release tablet 5 mg 5 mg Oral Q4H PRN Yariel M Cheng, DO Or oxyCODONE (ROXICODONE) immediate release tablet 10 mg 10 mg Oral Q4H PRN Yariel M Cheng, DO 10 mg at 05/06/22 0209 HYDROmorphone (DILAUDID) injection 0.25 mg 0.25 mg IntraVENous Q3H PRN Yariel M Cheng, DO 0.25 mg at 05/06/22 0005 Or HYDROmorphone (DILAUDID) injection 0.5 mg 0.5 mg IntraVENous Q3H PRN Yariel M Cheng, DO 0.5 mg at 05/05/22 1859 ketorolac (TORADOL) injection 30 mg 30 mg IntraVENous 4 times per day Rose Rivers, DO 30 mg at 05/06/22 0006 docusate sodium (COLACE) capsule 100 mg 100 mg Oral BID Rose Ajit Rivers, DO 100 mg at 05/06/22 0003 promethazine (PHENERGAN) injection 25 mg 25 mg IntraMUSCular Q6H PRN Jenny Amaya MD Current Outpatient Medications Medication Sig Dispense Refill acetaminophen (TYLENOL) 500 MG tablet Take 2 tablets by mouth every 6 hours as needed for Pain 120 tablet 0 oxyCODONE (ROXICODONE) 5 MG immediate release tablet Take 1 tablet by mouth every 6 hours as needed for Pain for up to 5 days. Intended supply: 3 days. Take lowest dose possible to manage pain 15 tablet 0 ibuprofen (ADVIL;MOTRIN) 600 MG tablet Take 1 tablet by mouth every 6 hours as needed for Pain 60 tablet 0 docusate sodium (COLACE) 100 MG capsule Take 1 capsule by mouth 2 times daily as needed for Constipation 60 capsule 0 diphenhydrAMINE (BENADRYL) 25 MG tablet Take 25 mg by mouth every 6 hours as needed for Itching BUDESONIDE PO Take by mouth daily dicyclomine (BENTYL) 10 MG capsule Take 1 capsule by mouth 4 times daily for 10 days 40 capsule 1 omeprazole (PRILOSEC) 40 MG delayed release capsule Take 1 capsule by mouth every morning (before breakfast) for 14 days 14 capsule 0 ondansetron (ZOFRAN-ODT) 4 MG disintegrating tablet Take 1 tablet by mouth 3 times daily as needed for Nausea or Vomiting 21 tablet 0 albuterol sulfate HFA 108 (90 Base) MCG/ACT inhaler Inhale 2 puffs into the lungs every 4 hours as needed Diagnostics: XR CHEST PORTABLE Result Date: 05/05/2022 Patient Name: SOCORRO GONSALES Diagnostic Radiology ACCESSION EXAM DATE/TIME PROCEDURE ORDERING PROVIDER [id number] 05/05/2022 15:06 EDT CR Chest Portable MD BRIGGS MARK D CPT code 18940 Reason For Exam (CR Chest Portable) sepsis Report AP CHEST X-RAY CLINICAL INDICATION: sepsis TECHNIQUE: AP portable x-ray of the chest. COMPARISON: 12/03/2020 FINDINGS: Lines/Tubes: None Heart/Mediastinum: Within normal limits Lungs: No consolidation or pleural effusion. Bones: Unremarkable IMPRESSION: No evidence of an acute cardiopulmonary abnormality. Report Dictated on --- Final --- Dictated: 05/05/2022 2:58 pm Dictating Physician: MD MARSH THOMAS Signed Date and Time: 05/05/2022 2:59 pm Signed by: MD MARSH THOMAS Transcribed Date and Time: 05/05/2022 2:58 CT Abdomen Pelvis W Contrast Result Date: 05/05/2022 Patient Name: SOCORRO GONSALES Computed Tomography ACCESSION EXAM DATE/TIME PROCEDURE ORDERING PROVIDER [id number] 05/05/2022 15:[address] Abdomen/Pelvis w/ IV MD BRIGGS MARK D Contrast (IV Onl CPT code 84812 Q9967 Reason For Exam (CT Abdomen/Pelvis w/ IV Contrast (IV Onl) hysterectomy, pain, low grade temp Report EXAMINATION: CT Abdomen/Pelvis w/ Contrast CLINICAL HISTORY: hysterectomy, pain, low grade temp COMPARISON: 02/17/2021 TECHNIQUE: Contiguous axial images were obtained through the abdomen and pelvis from the level of the diaphragmatic domes through the level of bilateral proximal femurs following bolus administration of intravenous contrast. MPR sagittal and coronal reconstructions were obtained from the axial data. Before infusion of intravenous contrast, radiology personnel investigated the possibility of an allergic history and of any history of reaction to iodinated contrast material. FINDINGS: Per electronic medical record review: The patient has a history of hysterectomy and removal of adhesions yesterday. Included images of the lower thorax: There is mild subsegmental bibasilar atelectasis. No focal consolidation. No pleural effusion. Hepatobiliary: The liver is unremarkable. The patient is status post cholecystectomy. Intra and extrahepatic biliary prominence is present which likely relates to prior cholecystectomy. Pancreas: Unremarkable Spleen: Unremarkable Adrenal Glands: Unremarkable Kidneys and ureters: No calculi or hydroureteronephrosis. Abdominal vasculature: Unremarkable GI tract: A few mildly dilated loops of bowel containing air-fluid levels are present in the left upper quadrant abdomen measuring up to 2.5 cm in greatest axial dimension. No discrete transition point is identified. There is a moderate amount of stool throughout the colon. Stool and intraluminal air is seen extending distally to the rectum. Status post appendectomy. Peritoneum and retroperitoneum: There are scattered small locules of free air anterior to the liver and posterior to the rectus abdominis Computed Tomography Report musculature, expected in the recent postsurgical setting. There is a small amount of free fluid in the pelvis. No focal rim-enhancing fluid collection to suggest an abscess. Lymph Nodes: No abdominal lymphadenopathy is evident. Pelvis: Status post hysterectomy. Visualized musculoskeletal structures: No acute fracture or destructive osseous lesion is identified. There is expected subcutaneous fat stranding along the periumbilical and lower abdominal wall regions, likely related to laparoscopic port placement. IMPRESSION: 1. Expected scattered pneumoperitoneum in the recent postsurgical setting status post hysterectomy. There is a small amount of free fluid in the pelvis. No focal rim-enhancing fluid collection to suggest an abscess. 2. A few mildly dilated loops of bowel containing air-fluid levels are present in the left upper quadrant abdomen measuring up to 2.5 cm in greatest axial dimension which may relate to ileus. No discrete transition point is identified. 3. Mild subsegmental bibasilar atelectasis. Report Dictated on --- Final --- Dictated: 05/05/2022 3:59 pm Dictating Physician: MD GUPTA RYAN Signed Date and Time: 05/05/2022 4:18 pm Signed by: MD GUPTA RYAN Transcribed Date and Time: 05/05/2022 3:59 Labs: Admission on 05/05/2022 Component Date Value Ref Range Status WBC 05/05/2022 10.2 3.6 - 10.7 10*3/uL Final RBC 05/05/2022 3.86 3.80 - 5.20 10*6/uL Final Hemoglobin 05/05/2022 10.7 (A) 11.7 - 16.0 g/dL Final Hematocrit 05/05/2022 33.3 (A) 35.0 - 47.0 % Final MCV 05/05/2022 86.3 79.0 - 98.0 fL Final MCH 05/05/2022 27.6 26.0 - 34.0 pg Final MCHC 05/05/2022 32.0 32.0 - 36.0 % Final RDW 05/05/2022 15.6 (A) 11.5 - 14.5 % Final Platelets 05/05/2022 301 140 - 440 10*3/uL Final MPV 05/05/2022 7.8 7.4 - 12.4 fL Final MPV is a calculated measurement using platelet volume ratio. Granulocytes % 05/05/2022 69.5 40.0 - 80.0 % Final Lymphocyte % 05/05/2022 23.1 20.0 - 40.0 % Final Monocytes 05/05/2022 6.0 2.0 - 10.0 % Final Eosinophils 05/05/2022 0.2 (A) 1.0 - 6.0 % Final Basophils 05/05/2022 1.2 0.0 - 2.0 % Final Absolute Neut # 05/05/2022 7.1 (A) 1.8 - 7.0 10*3/uL Final Absolute Lymph # 05/05/2022 2.3 1.0 - 4.3 10*3/uL Final Absolute Esmeralda # 05/05/2022 0.6 0.0 - 0.8 10*3/uL Final Absolute Eos # 05/05/2022 0.0 0.0 - 0.5 10*3/uL Final Absolute Baso # 05/05/2022 0.1 0.0 - 0.2 10*3/uL Final Sodium 05/05/2022 140 135 - 145 mmol/L Final Potassium 05/05/2022 3.9 3.5 - 5.1 mmol/L Final Chloride 05/05/2022 110 (A) 98 - 107 mmol/L Final CO2 05/05/2022 23 22 - 30 mmol/L Final Anion Gap 05/05/2022 7 3 - 13 mmol/L Final Glucose 05/05/2022 97 70 - 100 mg/dL Final BUN 05/05/2022 7 (A) 9 - 20 mg/dL Final Creatinine 05/05/2022 0.86 0.52 - 1.25 mg/dL Final eGFR 05/05/2022 >90.0 >60 mL/min Final EGFR IF NonAfrican Japanese 05/05/2022 >90.0 >60 mL/min Final Comment: KDIGO guidelines provide the following GFR categories: Stage GFR(ml/min/1.73 m2) Terms G1 >=90 Normal or high G2 60-89 Mildly decreased* G3a 45-59 Mildly to moderately decreased G3b 30-44 Moderately to severely decreased G4 15-29 Severely decreased G5 <15 Kidney failure *Relative to young adult level. In the absence of evidence of kidney damage, neither GFR category G1 nor G2 fulfill the criteria for CKD. The CKD-EPI equation is validated in individuals 18 years of age and older. Currently the best equation for estimating glomerular filtration rate (GFR) from serum creatinine in children is the Bedside Gupta equation. It is less accurate in patients with extremes of muscle mass, restriction of dietary protein, ingestion of creatine, extra-renal metabolism of creatinine, or treatment with medications that affect renal tubular creatinine secretion. Calcium 05/05/2022 8.9 8.4 - 10.4 mg/dL Final Albumin,Serum 05/05/2022 4.4 3.5 - 5.0 g/dL Final Total Protein 05/05/2022 7.7 6.3 - 8.2 g/dL Final Total Bilirubin 05/05/2022 0.3 0.2 - 1.3 mg/dL Final Alkaline Phosphatase 05/05/2022 45 38 - 126 U/L Final ALT 05/05/2022 13 0 - 34 U/L Final Comment: The ALT test is performed by an updated assay method. Please note that the reference intervals have been changed and are now sex specific. AST 05/05/2022 32 15 - 46 U/L Final Glucose, Ur 05/05/2022 Normal Normal (<70) mg/dL Final . Total Protein, Urine 05/05/2022 Negative Negative mg/dL Final . Bilirubin Urine 05/05/2022 Negative Negative mg/dL Final . Urobilinogen, Urine 05/05/2022 Normal Normal (0-1) mg/dL Final . pH, Urine 05/05/2022 6.0 5.0 - 8.0 NA Final . Specific [place], Urine 05/05/2022 1.010 1.005 - 1.030 NA Final . Occult Blood,Urine 05/05/2022 Negative Negative mg/dL Final . Ketones, Urine 05/05/2022 Negative Negative mg/dL Final . Nitrite, Urine 05/05/2022 Negative Negative NA Final . LEUKOCYTES, UA 05/05/2022 Negative Negative Reyes/uL Final . Appearance 05/05/2022 Clear Clear NA Final . Color, Urine 05/05/2022 Colorless Lt. Yellow NA Final . Lactic Acid 05/05/2022 1.0 0.7 - 2.0 mmol/L Final Lipase 05/05/2022 164 23 - 300 U/L Final ] Assessment/Plan: Socorro Gonsales 26 y.o. female, POD #2 s/p TLH, Cysto admitted for postop pain Postop Pain - VSS, Pain is improved this am - meeting postop milestones - likely 2/2 to being behind with pain meds after surgery, low concern for acute infection or intraabdominal injury - Transition to PO pain meds this am after 0600 dose - Encourage ambulation and use of incentive spirometer - monitor for improvement and likely DC home today - Mag Citrate for constipation - Diet: General - IVF: None - DVT PPX: SCDs Jaden Acevedo MD 05/06/2022, 5:57 AM Hospital Care (Independent): I independently saw and evaluated the patient. I agree with the findings and plan of care as documented in the resident's note. On evaluation this morning, patient with improve pain control. Does endorse minor nausea. Has not slept in >24 hours. Abd is soft, nontender, no r/g/r. Appropriately TTP. Incisions c/d/I. Calves nontender. Reviewed plan for antiemetics and revaluation. Pain is controlled. Will work on improving nausea and anticipate d/c home today. Labs and imaging reviewed. I discussed iwht patient I think this is an exacerbation of post operative pain given her lack of pain medication post-op and not and intraabdominal process. She is tolerating PO, do not think ileus at this point in time. She voices understanding and is in agreement. documented in this encounter [facility] Phone: 04-27-2022 Hospital Discharge instructions Layne Sorenson RN - 04/27/2022 11:03 AM EDT TAKE the following medications the morning of your surgery: inhaler if needed You may take Tylenol for pain. NO Motrin, ibuprofen or Advil for 24 hours prior to surgery or longer if instructed by your surgeon. NO Aleve or Naprosyn for 3 days prior to surgery or longer if instructed by your surgeon. DO NOT take aspirin or aspirin containing products for 5 days before surgery, or longer if instructed by your surgeon. Follow any instructions given to you by Shower with an antibacterial soap such as Dial or Safeguard or shower kit provided to you before coming to the hospital. No makeup, lotion, powder, deodorant or body spays. No hair products. Remove all jewelry and leave it at home. Wear loose comfortable clothing to go home in. You may brush your teeth morning of surgery. Do not wear contacts day of surgery. No marijuana (THC), smoking or alcohol for 24 hours prior to surgery. Please arrange for a responsible adult to drive you home after your surgery and that there is a responsible adult with you for 24 hours post discharge. If you have specific questions, please call your surgeon. You will receive a call the day before your surgery to verify your arrival time and date. You will be asked to arrive at least two hours prior to your scheduled surgery time. Please bring your Surgical folder and medication list with you day of surgery. We encourage you to write down any questions you may have for the surgeon, anesthesiologist, or other members of the surgical team and bring it with you the day of surgery. Please bring photo ID and insurance information. You may use the parking in the Main deck. Take the level one bridge to the H building and follow the signs for same day surgery. Check in at the desk. You may use the hr administrator parking located at the main entrance on [address] [facility] and take the H elevator to the first floor for same day surgery. Take a left after exiting the elevator and check in at the desk. One adult (18 and over) visitor overnight (after 8pm). Children age 2-18 are allowed to visit. Two visitors at a time during stay your stay. This is subject to change at anytime. The following attachments cannot be sent through Care Everywhere.Laparoscopic Hysterectomy: Pre-op (Citizen Of [place])Laparoscopic Hysterectomy: Post-op (Citizen Of [place])Salpingectomy: General Info (Citizen Of [place])documented in this encounter [facility] Work Phone: 03-27-2021 Hospital Discharge instructions Cailin Canchola MD - 03/27/2021 Images from the original note were not included. Discharge Instructions Call your surgeon in 1 to 2 days to schedule a follow-up appointment in 1-2 weeks. OK to shower. OK for activity as tolerated. No lifting over 15 pounds. Wound Care: as directed If you have steri-strips, you may remove them 5 days after your surgery. If your steri-strips fall off sooner, you may leave them off. If you have vaughn, they can be removed in 14 days after your surgery by your surgeon or PCP. If you have a drain, please record daily output amounts and bring the recordings with you to your office follow up. No driving while taking narcotic pain medications. You may take an over the counter stool softener while on narcotics for constipation as needed (colace, miralax, etc). Call your Physician or return to the Emergency Room if you experience: -New or increased pain. -New or increased bleeding. -Nausea & vomitting. -Fever & chills. -Shortness of breath. -Chest pain. -Abdominal distention. documented in this encounter [facility] Work Phone: 03-26-2021 History of Present illness Narrative RN went to answer bathroom call light. Pt was on bathroom floor. RN asked if pt had fallen. Pt stated no that she was just in so much pain that needed to sit down. Acute pain management paged via [employer] serve to come see pt soon if possible. Report called to Ashia WARD on H5 Pt arrived to [place] [id number]. Attached to vacuum pan tender and wall O2. VSS. Family updated [facility] Phone: 03-19-2021 History of Present illness Narrative Glenn in surgery scheduling notified of latex allergy to add to OR schedule. Also noted on PAT hardstop documented in this encounter [facility] Phone: 03-19-2021 Hospital Discharge instructions Kelly Ochoa RN - 03/19/2021 Follow all instructions given to you by Dr. Vogel Please shower with an antibacterial soap( example DIAL OR SAFEGUARD) Please bring your [facility] [employer] Surgical Information folder on the day of surgery. Please pam the last dose taken (date and time ) on your Daily Medications List provided in your After Visit Summary. Please bring a photo ID and insurance information TAKE the following medications the morning of your surgery INHALER You may take your prescription pain medications. You may take Tylenol (Acetaminophen) if needed for pain. No Motrin, Ibuprofen, or Advil 24 hours prior to surgery, or longer if instructed by your surgeon. No Aleve or Naprosyn 3 days prior to surgery, or longer if instructed by your surgeon. If you are on BLOOD THINNERS or ASPIRIN, IF ON BLOOD THINNERS TELL SURGEON AND NURSE NO ASPIRIN 5 DAYS PRIOR TO SURGERY Additional instructions No alcohol for 24 hours before surgery NO food after midnight including NO tube feed. NO jello, NO broth, NO orange juice You may have clear liquids up to 2 hours before surgery including: water, pulp free juice (apple or cranberry juice but NOT orange juice), soda, Gatorade, Powerade, clear tea or black coffee, if you have coffee or tea DO NOT USE cream, milk, powdered creamers, whiteners Before arriving to the hospital , have UP TO 16 ounces or clear fluid, preferable a high-carb drink like Gatorade or Powerade. You will receive a reminder call the day before surgery with your Same Day Surgery arrival time. If you have specific questions, please call your surgeon. As a reminder you will be asked to provide a urine sample upon arrival at Same Day Surgery. Please do not void prior to arrival. do not smoke or use tobacco products including vaping, chewing tobacco, snufff or nicotine patches for 24 hours before surgery, as this may result in anesthesia cancelling your surgeon IF ON Pre-operative information - Control and Anesthesia Drug Interactions During your upcoming anesthesia care, you may receive one of a few drugs that may reduce the effectiveness of your control medications. Possible medications given may include Emend and/or Sugammadex. You need to be aware of this if you are on any type of hormonal contraceptive control medication as this could be affected. If you have any further questions about this information, including which type of control is best for you, please speak with your PIPER INSTALLER provider. documented in this encounter [facility] Work Phone: 12-28-2020 History of Present illness Narrative Discharge information given to the patient. Patient and family verbalized understanding of information. All questions were answered before discharge. Patient ambulated, denies dizziness or nausea. Tolerating PO fluids and crackers. Vital signs are stable. Patient has changed and is being discharged home in a wheelchair with valuables. Pt states pain not improving with medications. Emotional support offered and accepted. Pt able to speak calmly at times. Calling out at times for sharp sudden pain. Pt is emotional at frequent intervals. Able to speak calmly at times. Doing relaxation techniques with encouragement. Cooperative with all requests. Pain management discussed with Dr. Josie carcamo rec'd for ativan IVP. See eMar. Pt agreeable. documented in this encounter [facility] Work Phone: 12-28-2020 Hospital Discharge instructions Jean Hargrove MD - 12/28/2020 Post-Operative Instructions These are general instructions for you to follow after your surgery. Your doctor or a member of his staff will outline any additional or special instructions that pertain to you. Activity: You are encouraged to increase your physical activity back to the levels of what you did prior to the procedure. You may go up and down steps, but please rest when you are tired. Any limits on lifting will be discussed with you or your family by the doctor. - Do NOT drive for the remainder of the day following surgery (or perhaps longer, as instructed by the doctor). Diet and Fluid Intake: Eating a well balanced diet is important. If you were on a specific diet before your surgery, you should return to that diet. Otherwise, there are no diet restrictions after surgery. - Do NOT drink alcoholic beverages while taking pain medications. - Drink at least one 8-ounce glass of water between meals for 2 days after the procedure. Bowel Management: Constipation sometimes occurs after surgery, especially when taking pain medication. Eating a well-balanced diet and maintaining a good fluid intake are often all that is necessary to return to you pre-surgical bowel regimen. - It is important not to strain excessively when having a bowel movement for the first several weeks following your surgery. A stool softener such as Colace may be helpful. You can purchase stool softeners without a prescription at your local drug store. - If a stool softener is not enough to relieve your constipation, you may try taking Milk of Magnesia. - You may use over the counter medicine, such a Gas-X, if you experience gas pains after surgery. Showering: You may shower when you get home from the hospital. If you have a string-stent in place, please cover the tape with Saran wrap prior to showering Pain Medications: Your doctor will prescribe the appropriate pain medication for you. Take these pills only as directed and only if you need them. If you are experiencing mild discomfort, you may take Tylenol or Ibuprofen. - NEVER mix alcohol with prescription pain medications. - Pain medication may make you drowsy. Do not take pain medication when doing any activity that requires coordination, such as driving. Infection: Report the following warning signs of infection to your doctor immediately: o A temperature of 101 degrees or greater o Increased redness, swelling or drainage at the incision site o Sudden onset of increased pain or tenderness or warmth around the incision o Foul odor from the incision site. Miscellaneous - It is normal for you to have minor discomfort after your surgery. However, if there are any significant changes in your condition such as shortness of breath, difficulty breathing, or pain or uneven swelling in your legs please go to the Emergency Room. Return to Work: If you work in an office and are not lifting or doing strenuous activity, you may return to work when comfortable. If your work involves strenuous activity, you may need more time before returning to work. - If necessary, our office can provide a letter stating the date that you may return to work. Follow-up Appointments - Follow-up appointments will be scheduled by our office. If you have any questions, please call . Jean Hargrove M.D. documented in this encounter [facility] Work Phone: 12-06-2020 Note Hospitalist Discharg e Summary Socorro Maribell Ilda : 1995 Admit date: 12/03/2020 Discharge date: 12/06/2020 Admitting Physician: Leno Cifuentes MD Primary Care Physician: Joseph Johnson DO Visit Status: Observation Code Status: Full Code Discharge Diagnoses: 1. Intractable abdominal pain likely functional / constipation related 2. Iron deficiency anemia 3. Chronic pelvic pain 4. Anxiety disorder 5. GERD 6. Hx of cholecystectomy and excision of duodenal cyst Additional diagnosis evaluated and treated during the admission: Patient Active Problem List Diagnosis Code ? Allergic rhinitis J30.9 ? Asthma J45.909 ? PFO (patent foramen ovale) Q21.1 ? YVONNE (generalized anxiety disorder) F41.1 ? Syncope and collapse R55 ? Tobacco abuse Z72.0 ? Precordial pain R07.2 ? 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 Abnormal findings on imaging of biliary tract R93.2 ? LUQ abdominal pain R10.12 ? Non-intractable vomiting R11.10 ? Chronic constipation K59.09 ? Abnormal barium enema R93.3 ? Anemia D64.9 ? Right upper quadrant abdominal pain R10.11 ? Abdominal pain R10.9 ? Pelvic pain R10.2 ? Intractable abdominal pain R10.9 ? Diarrhea R19.7 Procedures: CT Abd/pelvis, CT urogram, US pelvis, EGD Hospital Course: Socorro Gonsales is a 25 y.o. female who presented to the emergency department with abdominal pain for 1 day. She was vomiting for about a week associated with decreased appetite and inability to tolerate any food. Pain seem to start rather acutely and rapidly progress during the course of the day, pain was in RLQ. She has had multiple workups for abdominal pain in the past with multiple CTs and scopes. She has hx of a choledochal/duodenal cystic mass that was excised 2 years ago with cholecystectomy with Dr Sales. In 02/2020 she had exploratory laparoscopy, hysteroscopy, D+C and Mirena IUD insertion, revealed normal pelvis. Current admission patient consistently asked for increased for dilaudid for pain control and had very tender abdomen on palpation, although seemed ok while alone in room and ambulated without issue. CT abdomen pelvis with contrast initially negative. GI consulted and performed EGD which was completely normal. US pelvis also normal. Pain moved to right groin and wrapped to right flank with CVA tenderness, UA was pos for blood and urology was consulted. CT urogram showed right renal pelviectasis, otherwise normal kidney. It did show prominent cecum that was distended with stool extending into the right pelvis. She will follow up with urology for cystoscopy for hamturia. She is recommended to start daily bowel regimen. After CT urogram she felt she could go home, pain improved and tolerated food. She will need follow up for iron deficiency anemia, will not start iron now as not to worsen constipation. See medication adjustments below in med rec.The patient is discharged in improved and stable condition. Consults: IP CONSULT TO GI IP CONSULT TO UROLOGY Discharge Instructions: Diet: DIET GENERAL; Activity: as tolerated Recommended Outpatient Tests: Disposition: Patient discharged in stable condition to Home. Greater than 30 minutes spent discharging the patient and coming up with patient discharge plan. Vitals: BP 105/64 Pulse 78 Temp 96.9 ?F (36.1 ?C) (Temporal) Resp 16 Ht 5' 5 (1.651 m) Wt 185 lb (83.9 kg) SpO2 98% BMI 30.79 kg/m? Pulse Ox: SpO2 Av.5 % Min: 95 % Max: 100 % Supplemental O2: General appearance: No apparent distress, appears stated age and cooperative with exam HEENT: Normal cephalic, atraumatic without obvious deformity. Pupils equal, round, and reactive to light. Extra ocular muscles intact. Conjunctivae/corneas clear. Neck: Supple, with full range of motion. No jugular venous distention. Trachea midline. No lymphadenopathy. Respiratory: Normal respiratory effort. Clear to auscultation, bilaterally without Rales/Wheezes/Rhonchi. Cardiovascular: Regular rate and rhythm with normal S1/S2 without murmurs, rubs or gallops. Abdomen: Soft, mild TTP, non-distended with normal bowel sounds. No rebound or guarding. Musculoskeletal: No clubbing, cyanosis or edema bilaterally. Full range of motion without deformity. Skin: Skin color, texture, turgor normal. No rashes or lesions. Neurologic: Neurovascularly intact without any focal sensory/motor deficits. Cranial nerves: II-XII intact, grossly non-focal. Discharge Medications: Socorro Gonsales Home Medication Instructions PAN:[id number] Printed on:12/06/20 [id number] Medication Information oxyCODONE-acetaminophen (PERCOCET) 5-325 MG per tablet Take 1 tablet by mouth every 8 hours as needed for Pain for up to 3 days. Intended supply: 3 days. Take lowest dose possible to manage pain polyethylene glycol (GLYCOLAX) 17 g packet Take 17 g by mouth daily psyllium (METAMUCIL) 0.52 g capsule Take 1 capsu (more content not included)... [facility] 12-06-2020 History of Present illness Narrative [employer] sent to Lyndsay Baker because the patient is requesting cough drops. Her throat is irritated and scratchy from her procedure this morning. She was also asking about when she is able to go home. Awaiting response now. Images from the original note were not included. Hospitalist Progress Note 12/05/2020 3:56 PM [id number]: Please page hi [phone] for patient care issues. [id number]: Please page [facility] Hospitalist for any issues. Subjective: Admit Date: 12/03/2020 PCP: Joseph Johnson DO Interval History: No overnight issues. Cont to c/o RLQ pain, now wrapping around side. DIET GENERAL; Dietary Nutrition Supplements: Frozen Oral Supplement Diet NPO, After Midnight Patient Vitals for the past 96 hrs (Last 3 readings): Weight 12/03/20 1548 185 lb (83.9 kg) 24HR INTAKE/OUTPUT: No intake or output data in the 24 hours ending 12/05/20 1556 Medications: sodium chloride polyethylene glycol 17 g Oral Daily sodium chloride flush 5-40 mL Intravenous 2 times per day pantoprazole 40 mg Intravenous Daily And sodium chloride (PF) 10 mL Intravenous Daily cefTRIAXone (ROCEPHIN) IV 1,000 mg Intravenous Q24H Objective: Vitals: BP 132/64 Pulse 92 Temp 99.5 F (37.5 C) (Temporal) Resp 18 Ht 5' 5 (1.651 m) Wt 185 lb (83.9 kg) SpO2 96% BMI 30.79 kg/m Pulse Ox: SpO2 Av.5 % Min: 96 % Max: 97 % Supplemental O2: General appearance: No apparent distress, appears stated age and cooperative with exam HEENT: Normal cephalic, atraumatic without obvious deformity. Pupils equal, round, and reactive to light. Extra ocular muscles intact. Conjunctivae/corneas clear. Neck: Supple, with full range of motion. No jugular venous distention. Trachea midline. No lymphadenopathy. Respiratory: Normal respiratory effort. Clear to auscultation, bilaterally without Rales/Wheezes/Rhonchi. Cardiovascular: Regular rate and rhythm with normal S1/S2 without murmurs, rubs or gallops. Abdomen: Soft, TTP maximally in RLQ, non-distended with normal bowel sounds. No rebound or guarding. CVA tenderness Musculoskeletal: No clubbing, cyanosis or edema bilaterally. Full range of motion without deformity. Skin: Skin color, texture, turgor normal. No rashes or lesions. Neurologic: Neurovascularly intact without any focal sensory/motor deficits. Cranial nerves: II-XII intact, grossly non-focal. LABS: CBC: Recent Labs 12/03/20 1613 12/04/20 0251 12/04/20 1305 12/05/20 1033 WBC 5.1 5.2 -- 5.7 RBC 4.31 3.06* -- 3.97 HGB 11.2* 7.9* 10.5* 10.2* HCT 33.5* 24.6* 31.8* 30.9* MCV 77.6* 80.4 -- 77.8* RDW 16.1* 16.5* -- 16.3* PLT 375 220 -- 270 BMP: Recent Labs 12/03/20 16112/04/20 0251 12/05/20 1033 NA 138 136 135 K 3.7 4.0 3.9 CL 108* 110* 107 CO2 21* 20* 25 BUN 13 13 13 CREATININE 0.75 0.65 0.73 GLUCOSE 89 91 103* CALCIUM 9.9 8.9 8.9 ANIONGAP 9 7 4 LIVER PROFILE: Recent Labs 12/03/20 1613 12/04/20 0251 AST 28 21 ALT 12 9 BILITOT 0.4 0.5 ALKPHOS 69 52 LABALBU 4.7 4.2 PROT 8.2 7.4 PT/INR: No results for input(s): PROTIME, INR in the last 72 hours. CARDIAC ENZYMES: No results for input(s): TROPONINI in the last 72 hours. Procalcitonin: Lab Results Component Value Date PROCAL <0.10 12/04/2020 Glucose: No results for input(s): POCGLU in the last 72 hours. COVID-19 PCR: No results for input(s): COVID19 in the last 72 hours. Assessment / Plan 1. Intractable abdominal pain: CT abd/pelvis and US pelvis normal. Recent colonoscopy in 2019. Plan for EGD in am per GI. Has had multiple visits/workups for different abdominal pain complaints. Also c/o right flank pain today and blood after urination - UA pos with blood now, will get urology to see pt for concern for possible kidney stones 2. Diarrhea: stool studies neg. IBD less likely as CRP not elevated. 3. Microcytic anemia - check iron studies 4. Anxiety 5. GERD: PPI 6. Hx of cholecystectomy and excision of duodenal cystic mass -am labs, replace lytes prn -increase activity -DVT prophylaxis: [] Lovenox [] Heparin [] SCDs [x] Encourage ambulation [] Already on Anticoagulation Advance Directive: Full Code Discharge planning: TBD Lyndsay Baker MD Division of Hospitalist Medicine Inpatient Medical Services PAGER: [phone] GASTROENTEROLOGY PROGRESS NOTE Patient: Socorro Gonsales : 1995 Primary Care Physician: Joseph Johnson DO History: Pt states vomited lunch today. Still c/o of abd pain. Normal pelvic US. Physical Exam: Gen: AAOx3 in NAD BP 132/64 Pulse 92 Temp 99.5 F (37.5 C) (Temporal) Resp 18 Ht 5' 5 (1.651 m) Wt 185 lb (83.9 kg) SpO2 96% BMI 30.79 kg/m CVS: RRR ,Lungs: CTA B/L, no RRW Abd: Soft, Diffusely tender, +BS, No guarding/rebound Laboratory Data: CBC: Recent Labs 12/04/20 0251 12/04/20 1305 12/05/20 1033 WBC 5.2 -- 5.7 HGB 7.9* 10.5* 10.2* HCT 24.6* 31.8* 30.9* PLT 220 -- 270 CMP: Recent Labs 12/04/20 0251 12/05/20 1033 NA 136 135 K 4.0 3.9 CL 110* 107 CO2 20* 25 BUN 13 13 CREATININE 0.65 0.73 GLUCOSE 91 103* CALCIUM 8.9 8.9 HEPATIC: Recent Labs 12/03/20 1613 12/04/20 0251 AST 28 21 ALT 12 9 BILITOT 0.4 0.5 ALKPHOS 69 52 LIPASE/AMYLASE: Recent Labs 12/03/20 16112/04/20 025 LIPASE 83 37 LACTATE: Recent Labs 12/03/20 161 LACTA 1.1 Us Pelvis Complete Non-ob Transabdominal And Transvaginal Result Date: 12/04/2020 Patient Name: SOCORRO GONSALES Ultrasound ACCESSION EXAM DATE/TIME PROCEDURE ORDERING PROVIDER [id number] 12/04/2020 14:53 EDT US Pelvis TA/TV Natacha JANSEN JEFFREY D CPT code 73214 [id number] Reason For Exam (US Pelvis TA/TV) RLQ pain Report Transabdominal and transvaginal ultrasound pelvis CLINICAL INDICATION: Right lower quadrant pain Uterus is retroverted and measures approximately 7.3 x 4.4 x 6.9 cm. No focal myometrial masses are noted. Patient has a trilaminar endometrium with thickness of 1.2 cm, probably mid menstrual phase. No endometrial fluid is noted. Right and left ovaries measure 4.4 x 2.3 x 2.8 cm and 3.4 x 1.9 x 2.2 cm respectively. Arterial Doppler waveforms were obtained from both ovaries. Both ovaries contain follicles, with right ovarian follicle slightly larger in size. No free intrapelvic fluid is noted. Incidentally there is a large caliber bowel loop noted in the right adnexa with internal content. Correlating with CT abdomen pelvis from 12/03/2020 this appears to represent intrapelvic location of the cecum. IMPRESSION: Normal ultrasound pelvis with endometrial and ovarian features of mid menstrual phase Large caliber segment of bowel in the right adnexa appears to correlate with cecum on recent CT Report Dictated on --- Final --- Dictating Physician: MD BARKER DIANE Signed Date and Time: 12/04/2020 3:31 pm Signed by: MD BARKER DIANE Transcribed Date and Time: 12/04/2020 3:32 Assessment: 1. RLQ pain - ? Etiology 2. N/V 3. Diarrhea - No infectious etiology. Symptoms less likely c/w with IBD, normal CRP No obvious pelvic pathology 4. Hx of choledochal cyst Plan: 1. EGD in AM 2. Request colonoscopy from May in [place], done for lower abd pain. The benefits, alternatives, and risks of the procedure(s) including (but not exclusive to) bleeding, perforation, infection, hypoxia/hypotension/allergic reaction(s) due to sedatives need for surgery, and likelihood of missing a lesion, were explained to the patient/guardian/responsible accompanying adult who is agreeable. Pt requested that this nurse message the physicanESTUARDO Dr. to see if he will increase her pain medication for one dose, and see if he will order her some anxiety medications because she is very stressed and feels like she is going crazy and has not slept for two days and would like something for sleep. Dr. Cifuentes gave pt melatonin 6mg order. He will not increase her pain medication. This nurse enters the patient room to distribute medications and complete an assessment, when this nurse walked into the room the patient started sobbing. The patient stated that her day shift nurse and the aid were not very caring and would not listen to her. Pt stated that she is upset as to the way she was treated, and pt was visibly upset sobbing stating that she cannot believe how she was treated yesterday. This nurse sat with the patient and listened to her concerns and tired to help her feel better. Pt was thankful for my attentiveness to her needs. Comprehensive Nutrition Assessment Type and Reason for Visit: Initial, Positive Nutrition Screen Nutrition Recommendations/Plan: 1. Continue General diet as tolerated. 2. Initiate Magic cup BID per MNT protocol. Magic cup provides 290 kcals, 9 g protein per serving. 3. Await stool studies. GI following and noted may need to consider Surgery consult if pain persists. 4. Please document pt's PO intakes via flowsheet to accurately assess PO intake adequacy. 5. Monitor intakes, wts, and labs. RD will follow. Nutrition Assessment: Pt admit with RLQ for 1 week, bilious vomiting, and frequent diarrhea (4x/day). Awaiting results of stool studies. Pt was taken by transport at the end of RD visit for pelvic US. Pt looks visibly in pain sitting up in bed this afternoon. Pt reports decreased appetite with nausea and ab pain. Pt states that liquids as just as equally difficult to tolerate as solid foods. Malnutrition Assessment: Malnutrition Status: Insufficient data Context: Acute Illness Findings of the 6 clinical characteristics of malnutrition: Energy Intake: Mild decrease in energy intake (Comment) Weight Loss: No significant weight loss Body Fat Loss: Unable to assess Muscle Mass Loss: Unable to assess Fluid Accumulation: No significant fluid accumulation Personnel Placement Specialist Strength: Not Performed Estimated Daily Nutrient Needs: Energy (kcal): 1414-4614 kcals(25-30); Weight Used for Energy Requirements: [place](57kg) Protein (g): 57-68(1-1.2); Weight Used for Protein Requirements: [place] Fluid (ml/day): 1700 ml/day or per MD; Method Used for Fluid Requirements: 1 ml/kcal Nutrition Related Findings: no edema; Cl 110, CO2 20, CRP 5.2, Hgb 10.5, Hct 31.8, Albumin 4.2 Wounds: None Current Nutrition Therapies: DIET GENERAL; Dietary Nutrition Supplements: Frozen Oral Supplement Anthropometric Measures: Height: 5' 5 (165.1 cm) Current Body Weight: 185 lb (83.9 kg) Admission Body Weight: 185 lb (83.9 kg) Usual Body Weight: 155 lb (70.3 kg)(01/04/20) [place] Body Weight: 125 lbs; % [place] Body Weight 148 % BMI: 30.8 Adjusted Body Weight: ; No Adjustment BMI Categories: Obese Class 1 (BMI 30.0-34.9) Nutrition Diagnosis: Inadequate oral intake related to acute injury/trauma as evidenced by poor intake prior to admission Altered GI function related to acute injury/trauma as evidenced by GI abnormality, nausea, vomiting, diarrhea Nutrition Interventions: Food and/or Nutrient Delivery: Continue Current Diet, Start Oral Nutrition Supplement Nutrition Education/Counseling: No recommendation at this time Coordination of Nutrition Care: Continue to monitor while inpatient Goals: Pt will receive/tolerate adequate nutrition without GI distress Nutrition Monitoring and Evaluation: Behavioral-Environmental Outcomes: None Identified Food/Nutrient Intake Outcomes: Diet Advancement/Tolerance, Food and Nutrient Intake, Supplement Intake Physical Signs/Symptoms Outcomes: Biochemical Data, Diarrhea, GI Status, Nausea or Vomiting, Fluid Status or Edema, Weight, Skin, Nutrition Focused Physical Findings Discharge Planning: Too soon to determine Contact: *[phone] Images from the original note were not included. Hospitalist Progress Note 12/04/2020 12:19 PM Subjective: Admit Date: 12/03/2020 PCP: Joseph Johnson DO Room#: 099/0461 Interval History: No overnight issues. The pt is complaining of persistent and severe abdominal pain this am, despite doses of dilaudid. Denies chest pain, sob, vomiting, constipation, fevers, or chills. DIET GENERAL; Patient Vitals for the past 96 hrs (Last 3 readings): Weight 12/03/20 1548 185 lb (83.9 kg) 24HR INTAKE/OUTPUT: No intake or output data in the 24 hours ending 12/04/20 1219 Medications: sodium chloride sodium chloride flush 5-40 mL Intravenous 2 times per day cefTRIAXone (ROCEPHIN) IV 1,000 mg Intravenous Q24H LABS: CBC: Recent Labs 12/03/20 1613 12/04/20 0251 WBC 5.1 5.2 RBC 4.31 3.06* HGB 11.2* 7.9* HCT 33.5* 24.6* MCV 77.6* 80.4 RDW 16.1* 16.5* PLT 375 220 BMP: Recent Labs 12/03/20 1613 12/04/20 0251 NA 138 136 K 3.7 4.0 CL 108* 110* CO2 21* 20* BUN 13 13 CREATININE 0.75 0.65 GLUCOSE 89 91 CALCIUM 9.9 8.9 ANIONGAP 9 7 LIVER PROFILE: Recent Labs 12/03/20 1613 12/04/20 0251 AST 28 21 ALT 12 9 BILITOT 0.4 0.5 ALKPHOS 69 52 LABALBU 4.7 4.2 PROT 8.2 7.4 PT/INR: No results for input(s): PROTIME, INR in the last 72 hours. CARDIAC ENZYMES: No results for input(s): TROPONINI in the last 72 hours. Procalcitonin: No results found for: PROCAL Objective: Vitals: BP 109/64 Pulse 68 Temp 97.5 F (36.4 C) (Temporal) Resp 12 Ht 5' 5 (1.651 m) Wt 185 lb (83.9 kg) SpO2 95% BMI 30.79 kg/m Pulse Ox: SpO2 Av.1 % Min: 91 % Max: 100 % Supplemental O2: General appearance: No apparent distress, appears stated age and cooperative with exam. Sleeping upon arrival to the room, wakes easily to name. HEENT: Normal cephalic, atraumatic without obvious deformity. Extra ocular muscles intact. Conjunctivae/corneas clear. Neck: Supple, with full range of motion. No jugular venous distention. Trachea midline. Respiratory: Normal respiratory effort. Clear to auscultation, bilaterally without Rales/Wheezes/Rhonchi. Cardiovascular: Regular rate and rhythm with normal S1/S2 without murmurs, rubs or gallops. Abdomen: Soft, acutely tender to palpation, non-distended with normal bowel sounds. No rebound or guarding. Musculoskeletal: No clubbing, cyanosis or edema bilaterally. Full range of motion without deformity. Skin: Skin color, texture, turgor normal. No rashes or lesions. Neurologic: Neurovascularly intact without any focal sensory/motor deficits. Cranial nerves: II-XII intact, grossly non-focal. Assessment/Plan 1. Intractable abdominal pain: CT abd/pelvis normal in the ED. GI consult pending. Pt with significant drop in hgb today, FOBT ordered and repeat H&H ordered. ?GI source of bleeding. 2. Diarrhea: stool studies pending, GI consult pending. 3. Acute on chronic anemia: significant drop in hgb overnight, repeat H&H ordered and FOBT pending. Concern for GI source of blood loss. 4. Anxiety 5. GERD: PPI -am labs, replace lytes prn -increase activity -DVT prophylaxis: [] Lovenox [] Heparin [x] SCDs [x] Encourage ambulation [] Already on Anticoagulation Advance Directive: Full Code Discharge planning: TBD Signed: Nava Stearns PA-C Inpatient Medical Services 12/04/2020, 12:19 PM Pt stated that her pain is a 10/10 and pt is moaning and crying and ask if we can give her something for the pain, pt stated that she has thrown up (was unseen by this nurse both times). This nurse paged Dr. Cifuentes via phone call and he gave pt 0.5 mg of Dilaudid , to give one dose now and then Q 2 hours a needed for per pain. Pt stated that she had a small amount of blood on her toilet paper when she wiped her rectum. Pt stated the blood was dark reddish, Notified ESTUARDO Walker via secure care. Pt stated that the blood was about the size of a dime. Blood was unseen by this nurse. Pt wanted to me let Dr. Esau MARTE know that her mother has green pastures diease, Message send to Dr. Esau MARTE Via [employer] care. Pt ask for anxiety medications, this nurse put a message out with ESTUARDO Walker vis secure care and is awaiting an answer. Pt ask for pain and nausea medications. This nurse send a message to Dr. Esau MARTE via secure care for an order. Waiting for an order. documented in this encounter [facility] Work Phone: 07-28-2019 Hospital Discharge instructions Devin Benson MD - 07/28/2019 Continue your medications, drink plenty of fluids, and expect slow but steady improvement in your abdominal pain over the next few days. Call the gastrointestinal doctor again on Wednesday for follow-up. The following attachments cannot be sent through Care Everywhere.Abdominal Pain (Citizen Of [place])documented in this encounter [facility] Work Phone: 07-27-2019 History of Present illness Narrative IV removed and discharge education complete- denies questions or concerns at this time. [facility] Progress Note Socorro Gonsales : 1995(23 y.o.) Date: 07/26/19 Subjective: HPI The patient complains of abdominal pain, constipation. Had 2 loose BMs yesterday. LLQ pain resolved, reports chronic abdominal pain. Reports episode of emesis yesterday but able to tolerate regular diet. States she didn't sleep well and feels drowsy this morning. Still agreeable to go home today. No CP, SOB, f/c. Scheduled Meds: amitriptyline 10 mg Oral Nightly bisacodyl 10 mg Rectal Daily gabapentin 100 mg Oral Daily pantoprazole 40 mg Oral BID AC sodium chloride flush 10 mL Intravenous 2 times per day enoxaparin 40 mg Subcutaneous Daily acetaminophen 1,000 mg Oral 3 times per day influenza virus vaccine 0.5 mL Intramuscular Once sennosides-docusate sodium 2 tablet Oral BID bisacodyl 5 mg Oral Daily polyethylene glycol 17 g Oral Daily linaCLOtide 145 mcg Oral QAM AC sodium chloride flush 3 mL Intravenous Q8H Continuous Infusions: lactated ringers 150 mL/hr (07/25/19 1706) PRN Meds:dicyclomine, methocarbamol, ondansetron, sodium chloride flush, melatonin, labetalol, ipratropium-albuterol, promethazine, oxyCODONE, diphenhydrAMINE Review of Systems Constitutional: Positive for fatigue. Negative for chills and fever. Respiratory: Negative for cough and shortness of breath. Cardiovascular: Negative for chest pain and palpitations. Gastrointestinal: Positive for abdominal pain, nausea and vomiting. Negative for constipation and diarrhea. Genitourinary: Negative for dysuria and flank pain. Neurological: Negative for weakness. Interval Pertinent History: Social History Tobacco Use Smoking status: Former Smoker Start date: 05/04/2017 Last attempt to quit: 06/2018 Years since quittin.1 Smokeless tobacco: Never Used Substance Use Topics Alcohol use: Yes Frequency: Monthly or less Drinks per session: 3 or 4 Binge frequency: Less than monthly Comment: occassionally Objective: Patient Vitals for the past 24 hrs: BP Temp Temp src Pulse Resp SpO2 07/27/19 0919 100/62 98.6 F (37 C) Temporal 75 16 99 % 07/27/19 0634 (!) 95/57 98.6 F (37 C) Temporal 71 18 100 % 07/26/19 1720 104/63 99.3 F (37.4 C) Temporal 91 17 98 % Average, Min, and Max for last 24 hours Vitals: TEMPERATURE: Temp Av.8 F (37.1 C) Min: 98.6 F (37 C) Max: 99.3 F (37.4 C) RESPIRATIONS RANGE: Resp Av Min: 16 Max: 18 PULSE RANGE: Pulse Av Min: 71 Max: 91 BLOOD PRESSURE RANGE: Systolic (24hrs), Av , Min:95 , Max:104 ; Diastolic (24hrs), Av, Min:57, Max:63 PULSE OXIMETRY RANGE: SpO2 Av % Min: 98 % Max: 100 % I/O last 3 completed shifts: In: 1647 [I.V.:1647] Out: - Physical Exam Vitals signs reviewed. Constitutional: Appearance: She is well-developed. Comments: Well appearing, sitting up on couch, NAD HENT: Head: Normocephalic and atraumatic. Right Ear: External ear normal. Left Ear: External ear normal. Nose: Nose normal. Eyes: General: No scleral icterus. Conjunctiva/sclera: Conjunctivae normal. Pupils: Pupils are equal, round, and reactive to light. Neck: Musculoskeletal: Neck supple. Cardiovascular: Rate and Rhythm: Normal rate and regular rhythm. Heart sounds: Normal heart sounds. Pulmonary: Effort: Pulmonary effort is normal. Breath sounds: Normal breath sounds. No wheezing. Abdominal: General: Bowel sounds are normal. There is no distension. Palpations: Abdomen is soft. Tenderness: There is tenderness ( along incision). Comments: Keloid scar along abdominal incision, well healed, of note, no significant pain response with auscultation with pressure Skin: General: Skin is warm and dry. Neurological: General: No focal deficit present. Mental Status: She is alert and oriented to person, place, and time. Cranial Nerves: No cranial nerve deficit. Psychiatric: Behavior: Behavior normal. Comments: Not as tearful on exam today Lab Results Component Value Date WBC 4.2 07/27/2019 HGB 9.3 (L) 07/27/2019 HCT 28.3 (L) 07/27/2019 MCV 81.7 07/27/2019 PLT 276 07/27/2019 Lab Results Component Value Date NA 140 07/27/2019 K 3.9 07/27/2019 CL 106 07/27/2019 CO2 26 07/27/2019 BUN 8 07/27/2019 CREATININE 0.70 07/27/2019 GLUCOSE 110 07/27/2019 CALCIUM 8.6 07/27/2019 No results found for: LABA1C Additional results of the last 24 hours have been reviewed. Assessment and Plan: Principal Problem (Resolved): Acute pancreatitis Active Problems: YVONNE (generalized anxiety disorder) Chronic constipation Anemia Resolved Problems: Intractable abdominal pain Hemorrhagic cyst of left ovary Pancreatitis due to common bile duct stone 1. Pancreatitis -resolved s/p conservative treatment, IVF and pain control -lipids WNL, EtOH negative, lipase normalized, no leukocytosis -discussed with GI--MRCP with pancreatic divisum, and moderate stricture at confluence of hepatic ducts--no other concerns or plans for further testing, higher risk for chronic abdominal pain and recurrent pancreatitis given divisum 2. Acute on chronic abdominal pain -continue Protonix BID -pain control with scheduled tylenol, PRN oxycodone, d/c morphine -d/c gabapentin and robaxin --pt states these make her feel sick and drowsy/dazed -started on amitriptyline for anxiety and chronic pain- agrees to follow up with outpatient psych and pain management 3. Chronic constipation -Senna S 2 tabs BID, daily miralax, suppository -started on Linzess by GI, will need PA to be started outpatient, discussed with GI team to get samples for discharge 4. Hemorrhagic left ovarian cyst - ? If contributing to pain, -TVUS with no redemonstration of ovarian cyst-- no further intervention 5. Anemia -no significant iron deficency, follow up outpatient, no significant bleeding 6. Anxiety/depression -needs to follow up with outpatient psych 7. Disposition -await clinical improvement, d/c today DVTProphylaxis: lovenox 40 q 24hr - creatinine clearance >30 Disposition:await medical economics consultant recommendations, await clinical improvement and anticipate discharge today I spent over 51% of total time providing counseling or incoordination of care: > 35 minutes discussed with nurse, discussed with TCC/SW, discussed with GI, patient and family updated, I personally examined the patient and I personally reviewed chart, data, labs radiology reports 6AM-6PM please page: [phone], Katlyn Sepulveda PA-C 6PM-6AM please page: [facility] Internal Medicine Associated attestation - Willian Mohamud DO - 07/27/2019 4:58 PM EST Attending Supervising Physician's Attestation Statement The patient is a 23 y.o. female. I have performed a history and physical examination of the patient. I discussed the case with the physician surgery assistant. I reviewed the patient's Past Medical History, Past Surgical History, Medications, and Allergies. Patient reports that she is having improvement of her nausea and only 1 vomiting episode earlier this AM. Her epigastric abdominal pain is sharp and mod-severe. 2 BM's yesterday. Denies fever, chills, CP, or dyspnea. Physical Exam: Vitals: 07/26/19 1017 07/26/19 1720 07/27/19 0634 07/27/19 0919 BP: 99/63 104/63 (!) 95/57 100/62 Pulse: 71 91 71 75 Resp: 17 17 18 16 Temp: 99.2 F (37.3 C) 99.3 F (37.4 C) 98.6 F (37 C) 98.6 F (37 C) TempSrc: Temporal Temporal Temporal Temporal SpO2: 97% 98% 100% 99% Weight: Height: Constitutional: Appearance: She is well-developed. She is mildly tired-appearing. HENT: Head: Normocephalic and atraumatic. Right Ear: External ear normal. Left Ear: External ear normal. Nose: Nose normal. Mouth/Throat: Mouth: Mucous membranes are moist. Pharynx: Oropharynx is clear. No oropharyngeal exudate. Eyes: Extraocular Movements: Extraocular movements intact. Conjunctiva/sclera: Conjunctivae normal. Pupils: Pupils are equal, round, and reactive to light. Neck: Musculoskeletal: Neck supple. Thyroid: No thyromegaly. Cardiovascular: Rate and Rhythm: Normal rate and regular rhythm. Pulses: Normal pulses. Heart sounds: Normal heart sounds. Pulmonary: Effort: Pulmonary effort is normal. No respiratory distress. Breath sounds: Normal breath sounds. Abdominal: General: Bowel sounds are normal. There is no distension. Palpations: Abdomen is soft. There is no mass. Tenderness: There is tenderness in epigastric area. There is no guarding or rebound. Comments: No hepatosplenomegaly. Almost healed vertical incision. Musculoskeletal: General: No swelling or tenderness. Skin: General: Skin is warm and dry. Neurological: Mental Status: She is alert and oriented to person, place, and time. Deep Tendon Reflexes: Reflexes are normal and symmetric. Reflexes normal. Psychiatric: Judgment: Judgment normal. Comments: +flat affect Impression/Plan I reviewed and agree with the findings and plan documented in her note . #Abdominal pain - may be multifactorial; suspected acute pancreatitis likely due to pancreatic divisum; ovarian cyst appears resolved; GI signed off; continue oxycodone prn for short period of time; recommended bland diet at home #Chronic constipation - attempting to get Linzess samples #Anxiety -suspect amplifying pain; Elavil added; no SI/HI; advised close f/u with psych outpatient I spent over 51% of total time providing counseling or in coordination of care: > 35 minutes Discussed with nurse, patient and family updated, I personally examined the patient and I personally reviewed chart, data, labs radiology reports [facility] Progress Note Socorro Gonsales : 1995(23 y.o.) Date: 07/26/19 Subjective: HPI The patient complains of abdominal pain, constipation. States she feels better compared to yesterday, pain is more tolerable. Still in LLQ and incisional. She had an episode of emesis this morning and reports her nausea has been worse but is hoping to try full liquid diet. Hoping to go home tomorrow. Still no BM yet despite mag citrate, miralax, senna S, and dulcolax suppository. Discussed new medications (linzess, amitriptyline) No CP, SOB, f/c. Scheduled Meds: amitriptyline 10 mg Oral Nightly bisacodyl 10 mg Rectal Daily gabapentin 100 mg Oral Daily pantoprazole 40 mg Oral BID AC sodium chloride flush 10 mL Intravenous 2 times per day enoxaparin 40 mg Subcutaneous Daily acetaminophen 1,000 mg Oral 3 times per day influenza virus vaccine 0.5 mL Intramuscular Once sennosides-docusate sodium 2 tablet Oral BID bisacodyl 5 mg Oral Daily polyethylene glycol 17 g Oral Daily linaCLOtide 145 mcg Oral QAM AC sodium chloride flush 3 mL Intravenous Q8H Continuous Infusions: lactated ringers 150 mL/hr (07/25/19 1706) PRN Meds:dicyclomine, methocarbamol, ondansetron, sodium chloride flush, melatonin, labetalol, ipratropium-albuterol, promethazine, oxyCODONE, morphine, diphenhydrAMINE Review of Systems Constitutional: Negative for chills and fever. Respiratory: Negative for cough and shortness of breath. Cardiovascular: Negative for chest pain. Gastrointestinal: Positive for abdominal pain, constipation, nausea and vomiting. Negative for diarrhea. Genitourinary: Negative for dysuria. Neurological: Negative for dizziness and weakness. Interval Pertinent History: Social History Tobacco Use Smoking status: Former Smoker Start date: 05/04/2017 Last attempt to quit: 06/2018 Years since quittin.1 Smokeless tobacco: Never Used Substance Use Topics Alcohol use: Yes Frequency: Monthly or less Drinks per session: 3 or 4 Binge frequency: Less than monthly Comment: occassionally Objective: Patient Vitals for the past 24 hrs: BP Temp Temp src Pulse Resp SpO2 Height Weight 07/26/19 0602 99/69 98.3 F (36.8 C) Oral 69 18 93 % 07/25/19 2315 100/64 97.6 F (36.4 C) Oral 75 18 99 % 07/25/19 1932 (!) 94/58 98.6 F (37 C) Temporal 68 16 100 % 07/25/19 1618 98/64 98.4 F (36.9 C) Temporal 84 18 97 % 5' 5 (1.651 m) 144 lb (65.3 kg) 07/25/19 1237 5' 5 (1.651 m) 07/25/19 1118 96/61 98 F (36.7 C) Temporal 75 16 98 % Average, Min, and Max for last 24 hours Vitals: TEMPERATURE: Temp Av.2 F (36.8 C) Min: 97.6 F (36.4 C) Max: 98.6 F (37 C) RESPIRATIONS RANGE: Resp Av.2 Min: 16 Max: 18 PULSE RANGE: Pulse Av.2 Min: 68 Max: 84 BLOOD PRESSURE RANGE: Systolic (24hrs), Av , Min:94 , Max:100 ; Diastolic (24hrs), Av, Min:58, Max:69 PULSE OXIMETRY RANGE: SpO2 Av.4 % Min: 93 % Max: 100 % I/O last 3 completed shifts: In: 2200 [P.O.:200; I.V.:2000] Out: 1300 [Urine:1200; Emesis/NG output:100] Physical Exam Vitals signs reviewed. Constitutional: Appearance: She is well-developed. Comments: Well appearing, sitting up on couch, NAD HENT: Head: Normocephalic and atraumatic. Right Ear: External ear normal. Left Ear: External ear normal. Nose: Nose normal. Eyes: General: No scleral icterus. Conjunctiva/sclera: Conjunctivae normal. Pupils: Pupils are equal, round, and reactive to light. Neck: Musculoskeletal: Neck supple. Cardiovascular: Rate and Rhythm: Normal rate and regular rhythm. Heart sounds: Normal heart sounds. Pulmonary: Effort: Pulmonary effort is normal. Breath sounds: Normal breath sounds. No wheezing. Abdominal: General: Bowel sounds are normal. There is no distension. Palpations: Abdomen is soft. Tenderness: There is tenderness ( along incision and LLQ). Comments: Keloid scar along abdominal incision, well healed, of note, no significant pain response with auscultation with pressure Skin: General: Skin is warm and dry. Neurological: General: No focal deficit present. Mental Status: She is alert and oriented to person, place, and time. Cranial Nerves: No cranial nerve deficit. Psychiatric: Behavior: Behavior normal. Comments: Not as tearful on exam today Lab Results Component Value Date WBC 5.0 07/26/2019 HGB 8.9 (L) 07/26/2019 HCT 27.5 (L) 07/26/2019 MCV 82.2 07/26/2019 PLT 251 07/26/2019 Lab Results Component Value Date NA 138 07/26/2019 K 4.8 07/26/2019 CL 108 07/26/2019 CO2 20 07/26/2019 BUN 11 07/26/2019 CREATININE 0.60 07/26/2019 GLUCOSE 65 07/26/2019 CALCIUM 8.8 07/26/2019 No results found for: LABA1C Additional results of the last 24 hours have been reviewed. Assessment and Plan: Principal Problem: Acute pancreatitis Active Problems: YVONNE (generalized anxiety disorder) Chronic constipation Intractable abdominal pain Anemia Hemorrhagic cyst of left ovary Pancreatitis due to common bile duct stone Resolved Problems: * No resolved hospital problems. * 1. Pancreatitis -pain control, IVF, advance to full liquid diet and advance diet as tolerated -lipids WNL, EtOH negative, lipase downtrending -appreciate GI--MRCP with pancreatic divisum, and moderate stricture at confluence of hepatic ducts--no other concerns or plans for further testing 2. Acute on chronic abdominal pain -continue Protonix BID -pain control with scheduled tylenol, PRN oxycodone and morphine -continue gabapentin (pt refusing) robaxin PRN --pt states these make her feel sick and drowsy/dazed -started on amitriptyline for anxiety and chronic pain -poor coping as noted on previous admission--needs outpatient psych and pain management follow ups 3. Chronic constipation -Senna S 2 tabs BID, daily miralax, mag citrate x 1 and dulcolax suppository -started on Linzess by GI, will need PA, discussed with GI team to try and get samples for discharge 4. Hemorrhagic left ovarian cyst -smaller than previously, ? If contributing to pain, appreciate client success specialist -TVUS with no redemonstration of ovarian cyst-- no further intervention 5. Anemia -no significant iron deficency, follow up outpatient, no significant bleeding 6. Anxiety/depression -needs to follow up with outpatient psych 7. Disposition -await clinical improvement, anticipate d/c tomorrow after tolerating diet and having BM DVTProphylaxis: lovenox 40 q 24hr - creatinine clearance >30 Disposition:await medical economics consultant recommendations, await clinical improvement and anticipate discharge likely tomorrow I spent over 51% of total time providing counseling or incoordination of care: > 35 minutes discussed with nurse, discussed with TCC/SW, discussed with GI, patient and family updated, I personally examined the patient and I personally reviewed chart, data, labs radiology reports 6AM-6PM please page: [phone], Katlyn Sepulveda PA-C 6PM-6AM please page: [facility] Internal Medicine Associated attestation - Willian Mohamud DO - 07/26/2019 12:17 PM EST Attending Supervising Physician's Attestation Statement The patient is a 23 y.o. female. I have performed a history and physical examination of the patient. I discussed the case with the physician surgery assistant. I reviewed the patient's Past Medical History, Past Surgical History, Medications, and Allergies. Patient appears comfortable but still states she is 8/10 pain even though she had some morphine recently. Pain is only in epigastric area and LLQ area resolved. She had some nausea/vomiting early this AM. She is feeling appetite increasing and trying liquids/bland foods for lunch. Denies fever, chills, CP, dyspnea. +constipation Physical Exam: Vitals: 07/25/19 1932 07/25/19 2315 07/26/19 0602 07/26/19 1017 BP: (!) 94/58 100/64 99/69 99/63 Pulse: 68 75 69 71 Resp: Temp: 98.6 F (37 C) 97.6 F (36.4 C) 98.3 F (36.8 C) 99.2 F (37.3 C) TempSrc: Temporal Oral Oral Temporal SpO2: 100% 99% 93% 97% Weight: Height: Constitutional: Appearance: She is well-developed. She is tired-appearing. HENT: Head: Normocephalic and atraumatic. Right Ear: External ear normal. Left Ear: External ear normal. Nose: Nose normal. Mouth/Throat: Mouth: Mucous membranes are moist. Pharynx: Oropharynx is clear. No oropharyngeal exudate. Eyes: Extraocular Movements: Extraocular movements intact. Conjunctiva/sclera: Conjunctivae normal. Pupils: Pupils are equal, round, and reactive to light. Neck: Musculoskeletal: Neck supple. Thyroid: No thyromegaly. Cardiovascular: Rate and Rhythm: Normal rate and regular rhythm. Pulses: Normal pulses. Heart sounds: Normal heart sounds. Pulmonary: Effort: Pulmonary effort is normal. No respiratory distress. Breath sounds: Normal breath sounds. Abdominal: General: Bowel sounds are normal. There is no distension. Palpations: Abdomen is soft. There is no mass. Tenderness: There is tenderness in epigastric area. There is no guarding or rebound. Comments: No hepatosplenomegaly. Almost healed vertical incision. Musculoskeletal: General: No swelling or tenderness. Skin: General: Skin is warm and dry. Neurological: Mental Status: She is alert and oriented to person, place, and time. Deep Tendon Reflexes: Reflexes are normal and symmetric. Reflexes normal. Psychiatric: Judgment: Judgment normal. Comments: +flat affect Impression/Plan I reviewed and agree with the findings and plan documented in her note . #Abdominal pain - may be multifactorial; suspected acute pancreatitis likely due to pancreatic divisum; ovarian cyst appears resolved; GI following; continue oxycodone/morphine for pain; plan to switch to po only tomorrow #Chronic constipation - Linzess, suppository #Anxiety -suspect amplifying pain; Elavil added; f/u with psych outpatient I spent over 51% of total time providing counseling or in coordination of care: > 35 minutes Discussed with nurse, patient and family updated, I personally examined the patient and I personally reviewed chart, data, labs radiology reports Department of Internal Medicine Gastroenterology Attending Progress Note SUBJECTIVE: States she is feeling a little bit better today. The abdominal pain is more tolerable and she is able to wait the basin operator before the next dose of pain medication. She is still feeling nauseous and had NBNB emesis this AM. She did get some sleep last night after being transferred. She has not yet had a bowel movement but did take the Linzess this AM. She is going to try and eat some clear liquids later this AM. She is hoping to go home tomorrow. Medications Current Facility-Administered Medications: amitriptyline (ELAVIL) tablet 10 mg, 10 mg, Oral, Nightly dicyclomine (BENTYL) capsule 20 mg, 20 mg, Oral, Q6H PRN gabapentin (NEURONTIN) capsule 100 mg, 100 mg, Oral, Daily methocarbamol (ROBAXIN) tablet 750 mg, 750 mg, Oral, 4x Daily PRN ondansetron (ZOFRAN-ODT) disintegrating tablet 4 mg, 4 mg, Oral, Q8H PRN pantoprazole (PROTONIX) tablet 40 mg, 40 mg, Oral, BID AC sodium chloride flush 0.9 % injection 10 mL, 10 mL, Intravenous, 2 times per day sodium chloride flush 0.9 % injection 10 mL, 10 mL, Intravenous, PRN enoxaparin (LOVENOX) injection 40 mg, 40 mg, Subcutaneous, Daily lactated ringers infusion, 150 mL/hr, Intravenous, Continuous melatonin tablet 3 mg, 3 mg, Oral, Nightly PRN labetalol (NORMODYNE;TRANDATE) injection 10 mg, 10 mg, Intravenous, Q4H PRN ipratropium-albuterol (DUONEB) nebulizer solution 1 ampule, 1 ampule, Inhalation, Q4H PRN promethazine (PHENERGAN) injection 12.5 mg, 12.5 mg, Intravenous, Q6H PRN acetaminophen (TYLENOL) tablet 1,000 mg, 1,000 mg, Oral, 3 times per day oxyCODONE (ROXICODONE) immediate release tablet 5 mg, 5 mg, Oral, Q4H PRN influenza quadrivalent split vaccine (FLUZONE;FLUARIX;FLULAVAL;AFLURIA) injection 0.5 mL, 0.5 mL, Intramuscular, Once sennosides-docusate sodium (SENOKOT-S) 8.6-50 MG tablet 2 tablet, 2 tablet, Oral, BID bisacodyl (DULCOLAX) EC tablet 5 mg, 5 mg, Oral, Daily polyethylene glycol (GLYCOLAX) packet 17 g, 17 g, Oral, Daily bisacodyl (DULCOLAX) suppository 10 mg, 10 mg, Rectal, Daily PRN linaclotide (LINZESS) capsule 145 mcg, 145 mcg, Oral, QAM AC morphine (PF) injection 4 mg, 4 mg, Intravenous, Q3H PRN diphenhydrAMINE (BENADRYL) tablet 25 mg, 25 mg, Oral, Q6H PRN [COMPLETED] Saline lock IV, , , Continuous AND sodium chloride flush 0.9 % injection 3 mL, 3 mL, Intravenous, Q8H OBJECTIVE VITALS: BP 99/69 Pulse 69 Temp 98.3 F (36.8 C) (Oral) Resp 18 Ht 5' 5 (1.651 m) Wt 144 lb (65.3 kg) SpO2 93% ? No Comment: on period now BMI 23.96 kg/m TEMPERATURE: Current - Temp: 98.3 F (36.8 C); Max - Temp Av.2 F (36.8 C) Min: 97.6 F (36.4 C) Max: 98.6 F (37 C) RESPIRATIONS RANGE: Resp Av.3 Min: 16 Max: 18 PULSE RANGE: Pulse Av.5 Min: 68 Max: 88 BLOOD PRESSURE RANGE: Systolic (24hrs), Av , Min:94 , Max:100 ; Diastolic (24hrs), Av, Min:58, Max:69 PULSE OXIMETRY RANGE: SpO2 Av % Min: 93 % Max: 100 % 24HR INTAKE/OUTPUT: Intake/Output Summary (Last 24 hours) at 07/26/2019 0736 Last data filed at 07/26/2019 0530 Gross per 24 hour Intake 2200 ml Output 1300 ml Net 900 ml GENERAL: Pleasant and NAD, sitting up on the cough HEENT: NCAT, PERRLA, EOMI, Scleral anicteric. Oropharhynx clear with no erythema or exudate. Neck supple, no cervical LAD or thyromegaly. CV: RRR, NL S1/S2, no murmurs. Distal pulses palpable and equal b/l. LUNGS: CTA b/l. Normal palpation. No W/R/R. ABD: + BS, soft, moderate tenderness to palpation along the incision point and non-distended. No hepatosplenomegaly. No mass felt. No rebound. Voluntary guarding. Abdominal surgical incision along the midline EXT: No C/C/E. No muscle atrophy. Skin: No skin lesion or breakdown. Tattoos noted Lymph: No cervical or supraclavicular LAD. Musculoskeletal: Strength 5/5 in all exts. No joint tenderness or effusions in LEs. Neurologic: A&O x 3, CN II-XII grossly intact. DTR +2 symmetric in patella. Normal cerebellar fxn. Non-focal. Data Recent blood work and radiologic study were reviewed with the patient. CBC: Recent Labs 07/24/19202207/25/19 0446 07/26/19 0042 WBC 6.1 7.5 5.0 RBC 4.41 3.68* 3.35* HGB 11.8 9.6* 8.9* HCT 35.6 29.8* 27.5* MCV 80.8 81.1 82.2 MCH 26.9 26.2 26.6 MCHC 33.2 32.3 32.4 RDW 14.0 14.1 14.2 PLT 368 305 251 MPV 7.8 7.9 8.2 CMP: Recent Labs 07/24/19202207/25/19 0446 07/26/19 0042 NA 144 141 138 K 4.0 3.6 4.8 CL 107 112* 108* CO2 23 20* 20* BUN 11 11 11 CREATININE 0.72 0.64 0.60 GLUCOSE 106* 84 65* CALCIUM 9.9 9.1 8.8 PROT 8.9* -- -- LABALBU 5.0 -- -- BILITOT 0.2 -- -- ALKPHOS 81 -- -- AST 24 -- -- ALT 34 -- -- LIPASE: Recent Labs 07/24/19202207/26/19 0042 LIPASE 1,342* 331* Radiology Review: MRCP 07/25/2019 CONCLUSIONS: 1. Pancreas divisum and otherwise no evidence of ductal stricture or obstruction. 2. Moderate stricture at the confluence of hepatic ducts. 3. 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 ASSESSMENT AND PLAN Acute Pancreatitis - concern for groove pancreatitis, MRCP shows pancreatic divisum LLQ abdominal pain - thought to be 2/2 hemorrhagic ovarian cyst, Manager Ship consulted Pain along incision - concern for nerve impingement, follows with pain management as outpatient Normocytic normochromic anemia with low ferritin - hgb (07/26) 8.9 down from 9.6 (07/25) baseline is around 10. No overt signs of GI bleeding, she is menstruating Slow transit chronic constipation - worsened with narcotic use S/p cholecystectomy -05/16/2019 S/p duodenal cyst removal - 05/16/2019 PLAN - Recommend following up outpatient for MRCP findings, no acute intervention needed - [id number] mg of Amitripyline at night for abdominal pain to start 07/26/19 - ordered Linzess for chronic constipation and possible opiate induced constipation. Will continue with Miralax and Senna but will likely need to DC when she starts stooling - Gabapentin 100 mg ordered daily per primary team - Consider pain management consult (has follow up as outpatient) - Recommend outpatient follow up for chronic constipation. - Recommend avoiding opiates due to chronic constipation - Agree with Protonix BID - Continue conservative treatment per primary team - Patient will need close f/u with PCP and GI clinic. Patient will contact own GI physician or call our GI clinic at [phone] to make f/u appointment as soon as patient is d/c'ed home. Patient voiced understanding and agreed of this recommendation. The GI/Liver consult service will sign off. Please call if there are any questions, concerns or change of patient's GI condition. Thanks. Nutrition Assessment Type and Reason for Visit: Initial, Positive Nutrition Screen Nutrition Recommendations: 1. Pt should not remain without nutrition for > 72 hrs. 2. If po contraindicated for extended period of time, consider need for TPN for nutrition. 3. Monitor nutrition progression, labs, weight GI symptoms. 4. RD will follow weekly. Nutrition Assessment: Pt admitted with LLQ x 3 days, N/V, pancreatitis. PMH includes GERD, hydronephrosis of R kidney, duodenal cyst removal with cholecystectomy 05/2019, esophageal dilation, chronic constipation. Pt currently on NPO diet. Pt is tearful and reports pain and needing to have a BM after receiving a laxative. Pt reports poor po intake at home since May due to pain & decreased appetite. Pt reports weight loss from 155# to 140# in that time frame. No special diets or food allergies. Pt does not drink supplements at home. Malnutrition Assessment: Malnutrition Status: At risk for malnutrition Nutrition Risk Level: High Nutrient Needs: Estimated Daily Total Kcal: 22-25 kcal/kg = 8180-0121 kcal Estimated Daily Protein (g): 1-1.2 gm/kg = 64-76 gm Estimated Daily Total Fluid (ml/day): per MD Nutrition Diagnosis: Problem: Inadequate oral intake Etiology: related to Nausea, Vomiting, Alteration in GI function ? Signs and symptoms: as evidenced by NPO status due to medical condition Objective Information: Nutrition-Focused Physical Findings: N/V/abd pain, BM 07/24 Wound Type: Current Nutrition Therapies: Oral Diet Orders: NPO Oral Diet intake: NPO Oral Nutrition Supplement (ONS) Orders: None ONS intake: NPO Anthropometric Measures: Ht: 5' 5 (165.1 cm) Admission Body Wt: 140 lb (63.5 kg) % Weight Change: , Per EMR review, weight was 149# (outpatient 04/18/19) and 147.6# (hospital 05/12/19). If stated amission weight is accurate, these do not indicate significant weight loss. Will request current actual weight to monitor. [place] Body Wt: 125 lb (56.7 kg), % [place] Body 112% BMI Classification: BMI 18.5 - 24.9 Normal Weight Nutrition Interventions: Continue NPO Continued Inpatient Monitoring Nutrition Evaluation: Evaluation: Goals set Goals: Start nutrition Monitoring: Nutrition Progression, I&O, Weight, Pertinent Labs, Nausea or Vomiting, Monitor Bowel Function Contact Number: pager [phone] [facility] MEDICATION RECONCILIATION Date: 07/25/19 Room:1737/1737B Patient Name: Socorro Gonsales Allergies: Latex and Codeine Age: 23 y.o. Sex: female Note: New information has been obtained regarding the patient s medications. The medication reconciliation has been updated to reflect this. Please consider making these changes/additions if appropriate: Recommendations: 1. Medications originally on the home list that patient does not take, DESPITE just filling them @ [facility] on 07/19/19. Patient states she's not taking anything except using Miralax, Senna S, & Albuterol PRN. Thus, all other meds REMOVED from admission med history. If patient to take @ DC, could just add back as NO PRINT, as patient should have access to them EXCEPT if noted. a. Bentyl 20mg q6h prn (currently ordered as an inpt & patient has NOT filled recently. If she's to take @ DC, will need Rx.) b. Gabapentin 100mg qday (currently ordered as an inpt) c. Robaxin 750mg qid prn (currently ordered as an inpt) d. Zofran ODT 4mg q8h prn (currently ordered as an inpt) e. Protonix 40mg BID (currently ordered as an inpt) f. Phenergan 12.5mg tid prn (currently ordered IVP as an inpatient) Please page/call with questions. Date: 07/25/19 Time: 10:33 AM _ Name: Saumya Zavala PharmD Pager: [phone] documented [facility] this encounter [facility] Work Phone: 07-27-2019 Hospital Discharge instructions Eliel Sepulveda PA-C - 07/27/2019 Please schedule follow up with GI physician or call [facility] GI clinic [phone] for appointment. The following attachments cannot be sent through Care Everywhere.Constipation (Citizen [place])Pancreatitis (Citizen [place])Pancreatitis: Acute: General Info (Citizen Of [place])documented in this encounter [facility] Work Phone: 07-27-2019 Hospital course Narrative Medical Group Discharge Summary with Discharge DayProgress Note and Transition Note Socorro Gonsales : 1995 ADMIT DATE: 07/24/2019 DISCHARGE DATE: 07/27/2019 PRIMARYCARE PHYSICIAN: Joseph Johnson DO VISIT STATUS: Admission CODE STATUS: Full Code DISCHARGE DIAGNOSES: Principal Problem (Resolved): Acute pancreatitis Active Problems: YVONNE (generalized anxiety disorder) Chronic constipation Anemia Resolved Problems: Intractable abdominal pain Hemorrhagic cyst of left ovary Pancreatitis due to common bile duct stone HOSPITAL COURSE: Patient is a 23 y/o F with PMHx asthma, former tobacco use, chronic constipation, and 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 Recent admission from 07/17-07/19 due to complaints of acute on chronic abdominal pain, n/v, constipation. Evaluation by GI and general surgery as well as EGD work up unrevealing. She was seen by pain management and psych due to poor coping with pain. She refused to take gabapentin or robaxin because she didn't like how it made her feel. She reported worsening of her chronic sharp, shooting/burning incisional pain that then radiated and migrated to her LLQ that prompted her to return to ED. In the ED VSS labs notable for lipase 1,[address] concerning for pancreatitis in pancreatic groove as well as left hemorrhagic ovarian cysts (smaller than previously) and chronic constipation. She was seen by GI and started on linzess for chronic constipation and elavil HS to help with abdominal pain. She underwent MRCP which showed pancreatic divisum and mild narrowing in confluence of hepatic ducts. TVUS was performed at recommendation of PIPER INSTALLER but hemorraghic cyst seen previously was not identified. She improved with pain management and conservative treatment. Lipase down trended and she was agreeable to discharge home. She will need close follow up with GI and PCP (prior authorization needs to be completed for Linzess) and was also encouraged to f/u with psych and pain management outpatient. PROCEDURES: NA CONSULTANTS: GI-Dr. Piña PIPER INSTALLER- Dr. Stallings DISCHARGE MEDICATIONS: Significant Medication Changes: Linzess given 8 capsules to go home (needs PA completed!), Oxycodone (12 tabs), amytriptyline HS D/c bentyl, gabapentin, robaxin Gonsales, Socorro R Home Medication Instructions PAN:[id number] Printed on:07/27/19 1010 Medication Information albuterol sulfate HFA 108 (90 Base) MCG/ACT inhaler Inhale 2 puffs into the lungs every 6 hours as needed amitriptyline (ELAVIL) 10 MG tablet Take 1 tablet by mouth nightly linaclotide (LINZESS) 145 MCG capsule Take 1 capsule by mouth every morning (before breakfast) oxyCODONE (ROXICODONE) 5 MG immediate release tablet Take 1 tablet by mouth every 6 hours as needed for Pain for up to 3 days. pantoprazole (PROTONIX) 40 MG tablet Take 1 tablet by mouth 2 times daily (before meals) polyethylene glycol (MIRALAX) powder Take 17 g by mouth daily for 7 days PRN constipation promethazine (PHENERGAN) 12.5 MG tablet Take 1 tablet by mouth 3 times daily as needed for Nausea senna-docusate (PERICOLACE) 8.6-50 MG per tablet Take 2 tablets by mouth daily DIET: regular ACTIVITY: resume regular activity SIGNIFICANT DIAGNOSTIC STUDIES: CT abdomen, MRCP, TVUS COMPLEXITY OF FOLLOW UP: [] Moderate Complexity: follow up within 7-14 calendar days (35407) [x] Severe Complexity: follow up within 7 calendar days (86960) FOLLOW UP TESTING, PENDING RESULTS ORREFERRALS AT TRANSITIONAL CARE VISIT: [x] Yes --needs PA completed for patricio [] No DISPOSITION: Home FACILITY/HOME CARE AGENCY NAME: NA Follow up with Joseph Johnson DO scheduled Notification (telephone encounter) to PCP initiated: [x] Yes [] No INSTRUCTIONS TO MA/SW: Please call patient on day after discharge (must document patient contacted within 2 business days of discharge). FOLLOW UP QUESTIONS FOR MA/SW: 1. Did you get medications filled and takingthem as instructed from discharge? 2. Are you following your discharge instructions from your hospital stay? 3. Please confirm patient is scheduled for a follow up appointment within the above time frame. DISCHARGE TIME: > 30 minutes Associated attestation - Willian Mohamud DO - 07/27/2019 4:59 PM EST Attending Supervising Physician's Attestation Statement I performed a history and physical examination on the patient and discussed the management with the physician surgery assistant. I reviewed and agree with the findings and plan as documented in her note . See today's progress note for further information. documented in this encounter [facility] Work Phone: 07-19-2019 History of Present illness Narrative Per MALI Julian patient is not to be taking Bentyl at discharge. IV removed and discharge education complete, denies questions or concerns at this time. .Nutrition rescreen completed. Chart reviewed. Patient to be monitored and followed by the diet retail pharmacy technician..[facility] Progress Note Socorro Maribell Ilda : 1995(23 y.o.) Date: 07/18/19 Subjective: HPI The patient complains of abdominal pain. Pain still sharp, shooting and buring in incision and located in RUQ. Pain worse with food and also reports nausea with emesis. Phenergan helping but reports she is afraid to eat anything because she always throws up. Was able to keep down a popsicle yesterday for 2 hours then threw up. States she threw up her pills and miralax this morning. Morphine 4mg helped last night but 2mg has not helped pain yet this morning. Reports 2 BMs, one large one last night and a small one this morning. States she doesn't think her abdominal pain is related to constipation. BP intermittently low overnight but asymptomatic. Scheduled Meds: sodium chloride flush 3 mL Intravenous Q8H acetaminophen 1,000 mg Oral 3 times per day sennosides-docusate sodium 2 tablet Oral BID polyethylene glycol 17 g Oral Daily lidocaine 1 patch Transdermal Daily pantoprazole 40 mg Oral QAM AC Continuous Infusions: sodium chloride 50 mL/hr at 07/17/19 1043 PRN Meds:oxyCODONE, morphine, ondansetron, promethazine, diphenhydrAMINE, bisacodyl Review of Systems Constitutional: Negative for chills, fatigue and fever. Respiratory: Negative for cough and shortness of breath. Cardiovascular: Negative for chest pain, palpitations and leg swelling. Gastrointestinal: Positive for abdominal pain, nausea and vomiting. Negative for abdominal distention, anal bleeding, blood in stool, constipation and diarrhea. Genitourinary: Negative for dysuria. Interval Pertinent History: Social History Tobacco Use Smoking status: Former Smoker Start date: 05/04/2017 Last attempt to quit: 06/2018 Years since quittin.1 Smokeless tobacco: Never Used Substance Use Topics Alcohol use: Yes Frequency: Monthly or less Drinks per session: 3 or 4 Binge frequency: Less than monthly Comment: occassionally Objective: Patient Vitals for the past 24 hrs: BP Temp Temp src Pulse Resp SpO2 07/18/19 0921 (!) 98/50 98 F (36.7 C) Temporal 70 16 95 % 07/18/19 0633 (!) 91/58 Temporal 67 97 % 07/18/19 0624 (!) 81/55 98.7 F (37.1 C) Temporal 69 18 98 % 07/18/19 0047 113/69 98.4 F (36.9 C) Temporal 71 16 95 % 07/17/19 2134 93/60 98.8 F (37.1 C) Temporal 76 16 98 % 07/17/19 1735 109/61 98.4 F (36.9 C) Temporal 71 16 99 % 07/17/19 1308 (!) 92/50 98.4 F (36.9 C) Temporal 66 18 95 % Average, Min, and Max for last 24 hours Vitals: TEMPERATURE: Temp Av.5 F (36.9 C) Min: 98 F (36.7 C) Max: 98.8 F (37.1 C) RESPIRATIONS RANGE: Resp Av.7 Min: 16 Max: 18 PULSE RANGE: Pulse Av Min: 66 Max: 76 BLOOD PRESSURE RANGE: Systolic (24hrs), Av , Min:81 , Max:113 ; Diastolic (24hrs), Av, Min:50, Max:69 PULSE OXIMETRY RANGE: SpO2 Av.7 % Min: 95 % Max: 99 % I/O last 3 completed shifts: In: 988.3 [P.O.:150; I.V.:838.3] Out: - Physical Exam Vitals signs reviewed. Constitutional: Appearance: She is well-developed. Comments: Resting on right side on couch, appears uncomfortable, NAD HENT: Head: Normocephalic and atraumatic. Right Ear: External ear normal. Left Ear: External ear normal. Nose: Nose normal. Mouth/Throat: Mouth: Mucous membranes are moist. Eyes: General: No scleral icterus. Conjunctiva/sclera: Conjunctivae normal. Pupils: Pupils are equal, round, and reactive to light. Neck: Musculoskeletal: Neck supple. Cardiovascular: Rate and Rhythm: Normal rate and regular rhythm. Heart sounds: Normal heart sounds. Pulmonary: Effort: Pulmonary effort is normal. Breath sounds: Normal breath sounds. No wheezing. Abdominal: General: Bowel sounds are normal. There is no distension. Palpations: Abdomen is soft. There is no mass. Tenderness: There is guarding. Hernia: No hernia is present. Comments: Abdominal incision well healed, no hernias, TTP along incision and RUQ Musculoskeletal: Right lower leg: No edema. Left lower leg: No edema. Skin: General: Skin is warm and dry. Neurological: General: No focal deficit present. Mental Status: She is alert and oriented to person, place, and time. Psychiatric: Mood and Affect: Mood normal. Behavior: Behavior normal. Comments: Less tearful today Lab Results Component Value Date WBC 4.9 07/18/2019 HGB 10.5 (L) 07/18/2019 HCT 33.2 (L) 07/18/2019 MCV 83.8 07/18/2019 PLT 288 07/18/2019 Lab Results Component Value Date NA 140 07/18/2019 K 4.0 07/18/2019 CL 109 07/18/2019 CO2 22 07/18/2019 BUN 7 07/18/2019 CREATININE 0.64 07/18/2019 GLUCOSE 74 07/18/2019 CALCIUM 8.9 07/18/2019 No results found for: LABA1C Additional results of the last 24 hours have been reviewed. Assessment and Plan: Principal Problem: Intractable abdominal pain Active Problems: Constipation Hydronephrosis of right kidney Intractable vomiting with nausea Anemia Right upper quadrant abdominal pain Resolved Problems: * No resolved hospital problems. * 1. Intractable abdominal pain -acute on chronic abdominal pain with associated constipation, suspect some post-surgical changes contributing -CT abdomen with fecal retention and b/l follicular cystic changes -no longer constipated but still having acute abdominal pain -CLD, IVF 50cc/hr -scheduled tylenol and PRN Morphine 4mg for pain control, with PRN oxy as able to tolerate PO -phenergan/zofran for nausea control--appears to be helping but states she still throws up almost anything she tries to eat -no additional recs from gen surgery, will consult GI to see if they have any additional help Constipation -s/p tap water enema, partially tolerated and suppository yesterday with large BM last night and small BM this morning, no need for gastrografin enema -Senna S BID, miralax daily 3. Right hydronephrosis -mild, no dysuria, no signs of obstruction on CT, -no hydro or obstruction on f/u renal US 4. Normocytic Anemia -no reports of bleeding or heavy menses, appears to be at baseline, fecal occult negative -ferritin low but iron and TIBC WNL 5. Disposition -await improvement in pain-appreciate GI recs as unable to tolerate much PO still and pain is ongoing DVTProphylaxis: lovenox 40 q 24hr - creatinine clearance >30 Disposition:await test results, await medical economics consultant recommendations, await clinical improvement and anticipate discharge 1-2d I spent over 51% of total time providing counseling or incoordination of care: > 35 minutes discussed with nurse, I personally examined the patient and I personally reviewed chart, data, labs radiology reports 6AM-6PM please page: [phone], Katlyn Sepulveda PA-C 6PM-6AM please page: [facility] Internal Medicine Associated attestation - Willian Mohamud DO - 07/18/2019 2:17 PM EST Attending Supervising Physician's Attestation Statement The patient is a 23 y.o. female. I have performed a history and physical examination of the patient. I discussed the case with the physician surgery assistant. I reviewed the patient's Past Medical History, Past Surgical History, Medications, and Allergies. Patient is sleeping when I enter the room. She easily wakes up. Patient reports that her abdominal pain is unchanged from yesterday, 04/18 currently. Sharp and burning. Denies fever, chills, CP, dyspnea. +3 BM's yesterday. +N/V Physical Exam: Vitals: 07/18/19 0047 07/18/19 0624 07/18/19 0633 07/18/19 0921 BP: 113/69 (!) 81/55 (!) 91/58 (!) 98/50 Pulse: 71 69 67 70 Resp: 16 18 16 Temp: 98.4 F (36.9 C) 98.7 F (37.1 C) 98 F (36.7 C) TempSrc: Temporal Temporal Temporal Temporal SpO2: 95% 98% 97% 95% Weight: Height: Constitutional: Appearance: She is well-developed. She is tired-appearing. HENT: Head: Normocephalic and atraumatic. Right Ear: External ear normal. Left Ear: External ear normal. Nose: Nose normal. Mouth/Throat: Mouth: Mucous membranes are moist. Pharynx: Oropharynx is clear. No oropharyngeal exudate. Eyes: Extraocular Movements: Extraocular movements intact. Conjunctiva/sclera: Conjunctivae normal. Pupils: Pupils are equal, round, and reactive to light. Neck: Musculoskeletal: Neck supple. Thyroid: No thyromegaly. Cardiovascular: Rate and Rhythm: Normal rate and regular rhythm. Pulses: Normal pulses. Heart sounds: Normal heart sounds. Pulmonary: Effort: Pulmonary effort is normal. No respiratory distress. Breath sounds: Normal breath sounds. Abdominal: General: Bowel sounds are normal. There is no distension. Palpations: Abdomen is soft. There is no mass. Tenderness: There is tenderness. There is no guarding or rebound. Comments: No hepatosplenomegaly. Almost healed vertical incision. Musculoskeletal: General: No swelling or tenderness. Skin: General: Skin is warm and dry. Neurological: Mental Status: She is alert and oriented to person, place, and time. Deep Tendon Reflexes: Reflexes are normal and symmetric. Reflexes normal. Psychiatric: Judgment: Judgment normal. Comments: +flat affect Impression/Plan I reviewed and agree with the findings and plan documented in her note . #Abdominal pain - uncertain as to cause; pain seems out of proportion; patient sleeping soundly when I walk in room but wakes up saying 9/10 pain; no elevated HR or BP to indicate psyiologic response to pain; surgery sees nothing that warrants acute surgical intervention; constipation may be playing a role but pt had 3 BM's yesterday and pain persisting; protonix twice a day; GI consult; partly sounds neuropathic and starting gabapentin #Recent ex-lap for stas and resection of duodenal duplication cyst #N/V/constipation - phenergan/zofran prn #Anemia - iron studies normal and ferritin low I spent over 51% of total time providing counseling or in coordination of care: > 35 minutes discussed with patient, I personally examined the patient and I personally reviewed chart, data, labs radiology reports Paged ZEESHAN Sepulveda regarding patient's complaint that pain medication is not providing relief. She says midline healing incision is burning 10/10 and RUQ abdomen is very sharp pain. She reports one BM this morning at 0400, but bowel sounds are hypoactive. Will await return of page. Patient states she had a large loose BM at this time after suppository. Patient has repeatedly put call light on for more pain and nausea medication. Currently cannot have any PRN's at this time. Nonpharmacologic measures offered repeatedly. Patient states her pain is not going below a 9. Paged PA. Eliel SAMSON requests for me to reach out to surgery for recommendations. Paged surgery. [phone] Naik whom states other than continuing current bowel regimen and possibily adding Dulcolax suppository, no further recommendations at this time. Relayed information to Eliel SAMSON. Patient requesting to increase Dilaudid dose. Paged PA. - States will not up the dose. Tap water enema given- patient only tolerated half before refusing the rest due to discomfort. PA aware. Patient asking for pain medication- requesting Dilaudid states Morphine was not working for her. Paged Dr. Dasilva for orders. 1698 patient still complaining of 8/10 pain at this time and nausea. Paged Eliel SAMSON. documented in this encounter [facility] Work Phone: 07-17-2019 Hospital Discharge instructions Eliel Sepulveda PA-C - 07/17/2019 For pain management: Scheduled tylenol 1000mg three times daily, may take robaxin 750mg 4 times daily as needed, start Gabapentin 100mg daily, limit use of oxycodone for severe pain only. Please follow up with GI for trial of Linzess (needs special insurance approval) outapatient. Continue daily miralax with Senna-S twice daily to ensure regular bowel movements. [facility] --please call [phone] for a follow up appointment with pain management. The following attachments cannot be sent through Care Everywhere.Abdominal Pain (Citizen [place])Constipation (Citizen [place])EGD (Upper Endoscopy): Pre-op (Citizen [place])documented in this encounter [facility] Work Phone: 12-30-2017 History of Past i llness Narrative Problem Noted Date Resolved Date Positive GBS test 12/30/2017 03/04/2018 Overview: 12/29/17 GBS positive. Will need antibiotic in labor. Kelly Alvares, PHOTOENGRAVING HELPER.ENGINE DISPATCHER Short interval between pregn ancies affecting , antepartum 05/27/2017 03/04/2018 Overview: 05/27/2017She delivered her last child 05/07/2016. TKRN Tobacco use disorder complic ating , childbirth, or puerperium, antepartum, unspecified trimester 05/27/2017 05/03/20 Overview: 05/27/2017 Pt smokes 3 cigarettes a day, down from 2 ppd. Discussed risks of smoking during . Advised pt to quit.TKRN Patient request for diagnostic testing 7 06/02/2017 Overview: 05/27/2017Patient desires nuchal ultrasound and CF carrier screening testing. TKRN with uncertain dates, antepartum 05/2703/04/2018 Overview: 05/27/2017After patient left the office , I was getting her delivery notes from [facility] from 2015 and I noted patient had a [facility] E.R. visit 05/10/2017 that revealed a negative test. Patient had been seen in office 05/10 for negative test earlier that day. Patient had a positive urine test in our office 05/24. Discussed with Dr Stanley. Quantitative HCG ordered for today with repeat Quantitative HCG on Wednesday (see phone note dated 05/27/2017). TKRN June 02, 2017 Brief US done, approx 5 weeks by size, return in 2-3 weeks for repeat US for dates. Adilene Cohn MD Poor social situation 06/03/2016 04/29/2018 Encounter for supervision of other normal , third trimester 01/22/2016 06/03/2016 Late care 11/28/2015 06/03/2016 Overview: 11/28/2015Patient is transferring care from [facility]. Her first visit was 11/21/2015. She recently moved here from [place]. Records have been faxed here and are in Dr Cohn's office for upcoming appointment. TKRN Family history of defect 11/28/2015 1 Overview: 11/28/2015The FOB born with polycystic kidney disease. TKRN documented as of this encounter (statuses as of 06/03/2022) [facility]05-24-2018 History of Past illness Narrative* Problem Noted Date Resolved Date Positive GBS test 12/30/2017 03/04/2018 Overview: 12/29/17 GBS positive. Will need antibiotic in labor. Kelly Alvares, PHOTOENGRAVING HELPER.ENGINE DISPATCHER Short interval between pregn ancies affecting , antepartum 05/27/2017 03/04/2018 Overview: 05/27/2017She delivered her last child 05/07/2016. TKRN Tobacco use disorder complic ating , childbirth, or puerperium, antepartum, unspecified trimester 05/27/2017 05/03/20 Overview: 05/27/2017 Pt smokes 3 cigarettes a day, down from 2 ppd. Discussed risks of smoking during . Advised pt to quit.TKRN Patient request for diagnostic testing 7 06/02/2017 Overview: 05/27/2017Patient desires nuchal ultrasound and CF carrier screening testing. TKRN with uncertain dates, antepartum 05/2703/04/2018 Overview: 05/27/2017After patient left the office , I was getting her delivery notes from [facility] from 2015 and I noted patient had a [facility] E.R. visit 05/10/2017 that revealed a negative test. Patient had been seen in office 05/10 for negative test earlier that day. Patient had a positive urine test in our office 05/24. Discussed with Dr Stanley. Quantitative HCG ordered for today with repeat Quantitative HCG on Wednesday (see phone note dated 05/27/2017). TKRN June 02, 2017 Brief US done, approx 5 weeks by size, return in 2-3 weeks for repeat US for dates. Adilene Cohn MD Poor social situation 06/03/2016 04/29/2018 Encounter for supervision of other normal , third trimester 01/22/2016 06/03/2016 Late care 11/28/2015 06/03/2016 Overview: 11/28/2015Patient is transferring care from [facility]. Her first visit was 11/21/2015. She recently moved here from [place]. Records have been faxed here and are in Dr Cohn's office for upcoming appointment. TKRN Family history of defect 11/28/2015 1 Overview: 11/28/2015The FOB born with polycystic kidney disease. TKRN documented as of this encounter (statuses as of 06/12/2022) [facility]2018 History of Past illness Narrative* Problem Noted Date Resolved Date Positive GBS test 12/30/2017 03/04/2018 Overview: 12/29/17 GBS positive. Will need antibiotic in labor. Kelly Alvares, PHOTOENGRAVING HELPER.ENGINE DISPATCHER Short interval between pregn ancies affecting , antepartum 05/27/2017 03/04/2018 Overview: 05/27/2017She delivered her last child 05/07/2016. TKRN Tobacco use disorder complic ating , childbirth, or puerperium, antepartum, unspecified trimester 05/27/2017 05/03/20 Overview: 05/27/2017 Pt smokes 3 cigarettes a day, down from 2 ppd. Discussed risks of smoking during . Advised pt to quit.TKRN Patient request for diagnostic testing 7 06/02/2017 Overview: 05/27/2017Patient desires nuchal ultrasound and CF carrier screening testing. TKRN with uncertain dates, antepartum 05/2703/04/2018 Overview: 05/27/2017After patient left the office , I was getting her delivery notes from [facility] from 2015 and I noted patient had a [facility] E.R. visit 05/10/2017 that revealed a negative test. Patient had been seen in office 05/10 for negative test earlier that day. Patient had a positive urine test in our office 05/24. Discussed with Dr Stanley. Quantitative HCG ordered for today with repeat Quantitative HCG on Wednesday (see phone note dated 05/27/2017). TKRN June 02, 2017 Brief US done, approx 5 weeks by size, return in 2-3 weeks for repeat US for dates. Adilene Cohn MD Poor social situation 06/03/2016 04/29/2018 Encounter for supervision of other normal , third trimester 01/22/2016 06/03/2016 Late care 11/28/2015 06/03/2016 Overview: 11/28/2015Patient is transferring care from [facility] [place]. Her first visit was 11/21/2015. She recently moved here from [place]. Records have been faxed here and are in Dr Cohn's office for upcoming appointment. TKRN Family history of defect 11/28/2015 1 Overview: 11/28/2015The FOB born with polycystic kidney disease. TKRN documented as of this encounter (statuses as of 01/06/2023) [facility]05-24-2018 History of Past illness Narrative* Problem Noted Date Resolved Date Positive GBS test 12/30/2017 03/04/2018 Overview: 12/29/17 GBS positive. Will need antibiotic in labor. Kelly Alvares APRN.ENGINE DISPATCHER Short interval between pregn ancies affecting , antepartum 05/27/2017 03/04/2018 Overview: 05/27/2017She delivered her last child 05/07/2016. TKRN Tobacco use disorder complic ating , childbirth, or puerperium, antepartum, unspecified trimester 05/27/2017 05/03/20 Overview: 05/27/2017 Pt smokes 3 cigarettes a day, down from 2 ppd. Discussed risks of smoking during . Advised pt to quit.TKRN Patient request for diagnostic testing 7 06/02/2017 Overview: 05/27/2017Patient desires nuchal ultrasound and CF carrier screening testing. TKRN with uncertain dates, antepartum 05/2703/04/2018 Overview: 05/27/2017After patient left the office , I was getting her delivery notes from [facility] from 2015 and I noted patient had a [facility] E.R. visit 05/10/2017 that revealed a negative test. Patient had been seen in office 05/10 for negative test earlier that day. Patient had a positive urine test in our office 05/24. Discussed with Dr Stanley. Quantitative HCG ordered for today with repeat Quantitative HCG on Wednesday (see phone note dated 05/27/2017). TKRN June 02, 2017 Brief US done, approx 5 weeks by size, return in 2-3 weeks for repeat US for dates. Adilene Cohn MD Poor social situation 06/03/2016 04/29/2018 Encounter for supervision of other normal , third trimester 01/22/2016 06/03/2016 Late care 11/28/2015 06/03/2016 Overview: 11/28/2015Patient is transferring care from [facility] [place]. Her first visit was 11/21/2015. She recently moved here from [place]. Records have been faxed here and are in Dr Cohn's office for upcoming appointment. TKRN Family history of defect 11/28/2015 1 Overview: 11/28/2015The FOB born with polycystic kidney disease. TKRN documented as of this encounter (statuses as of 01/26/2023) [facility]05-[facility] History of Past illness Narrative* Problem Noted Date Resolved Date Positive GBS test 12/30/2017 03/04/2018 Overview: 12/29/17 GBS positive. Will need antibiotic in labor. Kelly Alvares APRN.ENGINE DISPATCHER Short interval between pregn ancies affecting , antepartum 05/27/2017 03/04/2018 Overview: 05/27/2017Shkarolina delivered her last child 05/07/2016. TKRN Tobacco use disorder complic ating , childbirth, or puerperium, antepartum, unspecified trimester 05/27/2017 05/03/20 Overview: 05/27/2017 Pt smokes 3 cigarettes a day, down from 2 ppd. Discussed risks of smoking during . Advised pt to quit.TKRN Patient request for diagnostic testing 7 06/02/2017 Overview: 05/27/2017Patient desires nuchal ultrasound and CF carrier screening testing. TKRN with uncertain dates, antepartum 05/2703/04/2018 Overview: 05/27/2017After patient left the office , I was getting her delivery notes from [facility] from 2015 and I noted patient had a [facility] E.R. visit 05/10/2017 that revealed a negative test. Patient had been seen in office 05/10 for negative test earlier that day. Patient had a positive urine test in our office 05/24. Discussed with Dr Stanley. Quantitative HCG ordered for today with repeat Quantitative HCG on Wednesday (see phone note dated 05/27/2017). TKRN June 02, 2017 Brief US done, approx 5 weeks by size, return in 2-3 weeks for repeat US for dates. Adilene Cohn MD Poor social situation 06/03/2016 04/29/2018 Encounter for supervision of other normal , third trimester 01/22/2016 06/03/2016 Late care 11/28/2015 06/03/2016 Overview: 11/28/2015Patient is transferring care from [facility]. Her first visit was 11/21/2015. She recently moved here from [place]. Records have been faxed here and are in Dr Cohn's office for upcoming appointment. TKRN Family history of defect 11/28/2015 1 Overview: 11/28/2015The FOB born with polycystic kidney disease. TKRN documented as of this encounter (statuses as of 01/26/2023) [facility]05-[facility] History of Past illness Narrative* Problem Noted Date Resolved Date Positive GBS test 12/30/2017 03/04/2018 Overview: 12/29/17 GBS positive. Will need antibiotic in labor. Kelly Alvares, SATHISH.ENGINE DISPATCHER Short interval between pregn ancies affecting , antepartum 05/27/2017 03/04/2018 Overview: 05/27/2017She delivered her last child 05/07/2016. TKRN Tobacco use disorder complic ating , childbirth, or puerperium, antepartum, unspecified trimester 05/27/2017 05/03/20 Overview: 05/27/2017 Pt smokes 3 cigarettes a day, down from 2 ppd. Discussed risks of smoking during . Advised pt to quit.TKRN Patient request for diagnostic testing 7 06/02/2017 Overview: 05/27/2017Patient desires nuchal ultrasound and CF carrier screening testing. TKRN with uncertain dates, antepartum 05/2703/04/2018 Overview: 05/27/2017After patient left the office , I was getting her delivery notes from [facility] from 2015 and I noted patient had a [facility] E.R. visit 05/10/2017 that revealed a negative test. Patient had been seen in office 05/10 for negative test earlier that day. Patient had a positive urine test in our office 05/24. Discussed with Dr Stanley. Quantitative HCG ordered for today with repeat Quantitative HCG on Wednesday (see phone note dated 05/27/2017). TKRN June 02, 2017 Brief US done, approx 5 weeks by size, return in 2-3 weeks for repeat US for dates. Adilene Cohn MD Poor social situation 06/03/2016 04/29/2018 Encounter for supervision of other normal , third trimester 01/22/2016 06/03/2016 Late care 11/28/2015 06/03/2016 Overview: 11/28/2015Patient is transferring care from [facility]. Her first visit was 11/21/2015. She recently moved here from [place]. Records have been faxed here and are in Dr Cohn's office for upcoming appointment. TKRN Family history of defect 11/28/2015 1 Overview: 11/28/2015The FOB born with polycystic kidney disease. TKRN documented as of this encounter (statuses as of 01/30/2023) [facility]05-24-2018 History of Past illness Narrative* Problem Noted Date Diagnosed Date Resolved Date Positive GBS test 12/30/2017 03/04/2018 Overview: 12/29/17 GBS positive. Will need antibiotic in labor. Kelly Alvares, PHOTOENGRAVING HELPER.ENGINE DISPATCHER Short interval between pregn ancies affecting , antepartum 05/27/2017 03/04/2018 Overview: 05/27/2017She delivered her last child 05/07/2016. TKRN Tobacco use disorder complic ating , childbirth, or puerperium, antepartum, unspecified trimester 05/27/2017 05/03/2019 Overview: 05/27/2017 Pt smokes 3 cigarettes a day, down from 2 ppd. Discussed risks of smoking during . Advised pt to quit.TKRN Patient request for diagnostic testing 05/27/2017 06/02/2017 Overview: 05/27/2017Patient desires nuchal ultrasound and CF carrier screening testing. TKRN with uncertain dates, antepartum 05/27/2017 03/04/2018 Overview: 05/27/2017After patient left the office , I was getting her delivery notes from [facility] from 2015 and I noted patient had a [facility] E.R. visit 05/10/2017 that revealed a negative test. Patient had been seen in office 05/10 for negative test earlier that day. Patient had a positive urine test in our office 05/24. Discussed with Dr Stanley. Quantitative HCG ordered for today with repeat Quantitative HCG on Wednesday (see phone note dated 05/27/2017). TKRN June 02, 2017 Brief US done, approx 5 weeks by size, return in 2-3 weeks for repeat US for dates. Adilene Cohn MD Poor social situation 06/03/20162017 Encounter for supervision of other normal , third trimester 01/22/2016 06/03/2016 Late care 11/28/2015 6 Overview: 11/28/2015Patient is transferring care from [facility]. Her first visit was 11/21/2015. She recently moved here from [place]. Records have been faxed here and are in Dr Cohn's office for upcoming appointment. TKRN Family history of defect 11/28/2015 06/03/2016 Overview: 11/28/2015The FOB born with polycystic kidney disease. TKRN documented as of this encounter (statuses as of 06/14/2023) [facility]05-24-2018 History of Past illness Narrative* Problem Noted Date Diagnosed Date Resolved Date Positive GBS test 12/30/2017 03/04/2018 Overview: 12/29/17 GBS positive. Will need antibiotic in labor. Kelly Alvares APRN.ENGINE DISPATCHER Short interval between pregn ancies affecting , antepartum 05/27/2017 03/04/2018 Overview: 05/27/2017She delivered her last child 05/07/2016. TKRN Tobacco use disorder complic ating , childbirth, or puerperium, antepartum, unspecified trimester 05/27/2017 05/03/2019 Overview: 05/27/2017 Pt smokes 3 cigarettes a day, down from 2 ppd. Discussed risks of smoking during . Advised pt to quit.TKRN Patient request for diagnostic testing 05/27/2017 06/02/2017 Overview: 05/27/2017Patient desires nuchal ultrasound and CF carrier screening testing. TKRN with uncertain dates, antepartum 05/27/2017 03/04/2018 Overview: 05/27/2017After patient left the office , I was getting her delivery notes from [facility] from 2015 and I noted patient had a [facility] E.R. visit 05/10/2017 that revealed a negative test. Patient had been seen in office 05/10 for negative test earlier that day. Patient had a positive urine test in our office 05/24. Discussed with Dr Stanley. Quantitative HCG ordered for today with repeat Quantitative HCG on Wednesday (see phone note dated 05/27/2017). TKRN June 02, 2017 Brief US done, approx 5 weeks by size, return in 2-3 weeks for repeat US for dates. Adilene Cohn MD Poor social situation 06/03/20162017 Encounter for supervision of other normal , third trimester 01/22/2016 06/03/2016 Late care 11/28/2015 6 Overview: 11/28/2015Patient is transferring care from [facility] [place]. Her first visit was 11/21/2015. She recently moved here from [place]. Records have been faxed here and are in Dr Cohn's office for upcoming appointment. TKRN Family history of defect 11/28/2015 06/03/2016 Overview: 11/28/2015The FOB born with polycystic kidney disease. TKRN documented as of this encounter (statuses as of 07/04/2023) [facility]05-24-2018 History of Past illness Narrative* Problem Noted Date Diagnosed Date Resolved Date Positive GBS test 12/30/2017 03/04/2018 Overview: 12/29/17 GBS positive. Will need antibiotic in labor. Kelly Alvares, PHOTOENGRAVING HELPER.ENGINE DISPATCHER Short interval between pregn ancies affecting , antepartum 05/27/2017 03/04/2018 Overview: 05/27/2017She delivered her last child 05/07/2016. TKRN Tobacco use disorder complic ating , childbirth, or puerperium, antepartum, unspecified trimester 05/27/2017 05/03/2019 Overview: 05/27/2017 Pt smokes 3 cigarettes a day, down from 2 ppd. Discussed risks of smoking during . Advised pt to quit.TKRN Patient request for diagnostic testing 05/27/2017 06/02/2017 Overview: 05/27/2017Patient desires nuchal ultrasound and CF carrier screening testing. TKRN with uncertain dates, antepartum 05/27/2017 03/04/2018 Overview: 05/27/2017After patient left the office , I was getting her delivery notes from [facility] from 2015 and I noted patient had a [facility] E.R. visit 05/10/2017 that revealed a negative test. Patient had been seen in office 05/10 for negative test earlier that day. Patient had a positive urine test in our office 05/24. Discussed with Dr Stanley. Quantitative HCG ordered for today with repeat Quantitative HCG on Wednesday (see phone note dated 05/27/2017). TKRN June 02, 2017 Brief US done, approx 5 weeks by size, return in 2-3 weeks for repeat US for dates. Adilene Cohn MD Poor social situation 06/03/20162017 Encounter for supervision of other normal , third trimester 01/22/2016 06/03/2016 Late care 11/28/2015 6 Overview: 11/28/2015Patient is transferring care from [facility] [place]. Her first visit was 11/21/2015. She recently moved here from [place]. Records have been faxed here and are in Dr Cohn's office for upcoming appointment. TKRN Family history of defect 11/28/2015 06/03/2016 Overview: 11/28/2015The FOB born with polycystic kidney disease. TKRN documented as of this encounter (statuses as of 07/08/2023) [facility]05-[facility] History of Past illness Narrative* Problem Noted Date Diagnosed Date Resolved Date Positive GBS test 12/30/2017 03/04/2018 Overview: 12/29/17 GBS positive. Will need antibiotic in labor. Kelly Alvares, PHOTOENGRAVING HELPER.ENGINE DISPATCHER Short interval between pregn ancies affecting , antepartum 05/27/2017 03/04/2018 Overview: 05/27/2017She delivered her last child 05/07/2016. TKRN Tobacco use disorder complic ating , childbirth, or puerperium, antepartum, unspecified trimester 05/27/2017 05/03/2019 Overview: 05/27/2017 Pt smokes 3 cigarettes a day, down from 2 ppd. Discussed risks of smoking during . Advised pt to quit.TKRN Patient request for diagnostic testing 05/27/2017 06/02/2017 Overview: 05/27/2017Patient desires nuchal ultrasound and CF carrier screening testing. TKRN with uncertain dates, antepartum 05/27/2017 03/04/2018 Overview: 05/27/2017After patient left the office , I was getting her delivery notes from [facility] from 2015 and I noted patient had a [facility] E.R. visit 05/10/2017 that revealed a negative test. Patient had been seen in office 05/10 for negative test earlier that day. Patient had a positive urine test in our office 05/24. Discussed with Dr Stanley. Quantitative HCG ordered for today with repeat Quantitative HCG on Wednesday (see phone note dated 05/27/2017). TKRN June 02, 2017 Brief US done, approx 5 weeks by size, return in 2-3 weeks for repeat US for dates. Adilene Cohn MD Poor social situation 06/03/20162017 Encounter for supervision of other normal , third trimester 01/22/2016 06/03/2016 Late care 11/28/2015 6 Overview: 11/28/2015Patient is transferring care [facility]. Her first visit was 11/21/2015. She recently moved here from [place]. Records have been faxed here and are in Dr Cohn's office for upcoming appointment. TKRN Family history of defect 11/28/2015 06/03/2016 Overview: 11/28/2015The FOB born with polycystic kidney disease. TKRN documented as of this encounter (statuses as of 07/24/2023) [facility] History of Past illness Narrative* Problem Noted Date Diagnosed Date Resolved Date Positive GBS test 12/30/2017 03/04/2018 Overview: 12/29/17 GBS positive. Will need antibiotic in labor. Kelly Alvares, PHOTOENGRAVING HELPER.ENGINE DISPATCHER Short interval between pregn ancies affecting , antepartum 05/27/2017 03/04/2018 Overview: 05/27/2017She delivered her last child 05/07/2016. TKRN Tobacco use disorder complic ating , childbirth, or puerperium, antepartum, unspecified trimester 05/27/2017 05/03/2019 Overview: 05/27/2017 Pt smokes 3 cigarettes a day, down from 2 ppd. Discussed risks of smoking during . Advised pt to quit.TKRN Patient request for diagnostic testing 05/27/2017 06/02/2017 Overview: 05/27/2017Patient desires nuchal ultrasound and CF carrier screening testing. TKRN with uncertain dates, antepartum 05/27/2017 03/04/2018 Overview: 05/27/2017After patient left the office , I was getting her delivery notes from [facility] from 2015 and I noted patient had a [facility] E.R. visit 05/10/2017 that revealed a negative test. Patient had been seen in office 05/10 for negative test earlier that day. Patient had a positive urine test in our office 05/24. Discussed with Dr Stanley. Quantitative HCG ordered for today with repeat Quantitative HCG on Wednesday (see phone note dated 05/27/2017). TKRN June 02, 2017 Brief US done, approx 5 weeks by size, return in 2-3 weeks for repeat US for dates. Adilene Cohn MD Poor social situation 06/03/20162017 Encounter for supervision of other normal , third trimester 01/22/2016 06/03/2016 Late care 11/28/2015 6 Overview: 11/28/2015Patient is transferring care [facility]. Her first visit was 11/21/2015. She recently moved here from [place]. Records have been faxed here and are in Dr Cohn's office for upcoming appointment. TKRN Family history of defect 11/28/2015 06/03/2016 Overview: 11/28/2015The FOB born with polycystic kidney disease. TKRN documented as of this encounter (statuses as of 10/20/2023) [facility] History of Past illness Narrative* Problem Noted Date Diagnosed Date Resolved Date Positive GBS test 12/30/2017 03/04/2018 Overview: 12/29/17 GBS positive. Will need antibiotic in labor. Kelly Alvares, PHOTOENGRAVING HELPER.ENGINE DISPATCHER Short interval between pregn ancies affecting , antepartum 05/27/2017 03/04/2018 Overview: 05/27/2017She delivered her last child 05/07/2016. TKRN Tobacco use disorder complic ating , childbirth, or puerperium, antepartum, unspecified trimester 05/27/2017 05/03/2019 Overview: 05/27/2017 Pt smokes 3 cigarettes a day, down from 2 ppd. Discussed risks of smoking during . Advised pt to quit.TKRN Patient request for diagnostic testing 05/27/2017 06/02/2017 Overview: 05/27/2017Patient desires nuchal ultrasound and CF carrier screening testing. TKRN with uncertain dates, antepartum 05/27/2017 03/04/2018 Overview: 05/27/2017After patient left the office , I was getting her delivery notes from [facility] from 2015 and I noted patient had a [facility] E.R. visit 05/10/2017 that revealed a negative test. Patient had been seen in office 05/10 for negative test earlier that day. Patient had a positive urine test in our office 05/24. Discussed with Dr Stanley. Quantitative HCG ordered for today with repeat Quantitative HCG on Wednesday (see phone note dated 05/27/2017). TKRN June 02, 2017 Brief US done, approx 5 weeks by size, return in 2-3 weeks for repeat US for dates. Adilene Cohn MD Poor social situation 06/03/20162017 Encounter for supervision of other normal , third trimester 01/22/2016 06/03/2016 Late care 11/28/2015 6 Overview: 11/28/2015Patient is transferring care from [facility]. Her first visit was 11/21/2015. She recently moved here from [place]. Records have been faxed here and are in Dr Cohn's office for upcoming appointment. TKRN Family history of defect 11/28/2015 06/03/2016 Overview: 11/28/2015The FOB born with polycystic kidney disease. TKRN documented as of this encounter (statuses as of 10/21/2023) [facility] History of Past illness Narrative* Problem Noted Date Diagnosed Date Resolved Date Positive GBS test 12/30/2017 03/04/2018 Overview: 12/29/17 GBS positive. Will need antibiotic in labor. Kelly Alvares APRN.ENGINE DISPATCHER Short interval between pregn ancies affecting , antepartum 05/27/2017 03/04/2018 Overview: 05/27/2017She delivered her last child 05/07/2016. TKRN Tobacco use disorder complic ating , childbirth, or puerperium, antepartum, unspecified trimester 05/27/2017 05/03/2019 Overview: 05/27/2017 Pt smokes 3 cigarettes a day, down from 2 ppd. Discussed risks of smoking during . Advised pt to quit.TKRN Patient request for diagnostic testing 05/27/2017 06/02/2017 Overview: 05/27/2017Patient desires nuchal ultrasound and CF carrier screening testing. TKRN with uncertain dates, antepartum 05/27/2017 03/04/2018 Overview: 05/27/2017After patient left the office , I was getting her delivery notes from [facility] from 2015 and I noted patient had a [facility] E.R. visit 05/10/2017 that revealed a negative test. Patient had been seen in office 05/10 for negative test earlier that day. Patient had a positive urine test in our office 05/24. Discussed with Dr Stanley. Quantitative HCG ordered for today with repeat Quantitative HCG on Wednesday (see phone note dated 05/27/2017). TKRN June 02, 2017 Brief US done, approx 5 weeks by size, return in 2-3 weeks for repeat US for dates. Adilene Cohn MD Poor social situation 06/03/20162017 Encounter for supervision of other normal , third trimester 01/22/2016 06/03/2016 Late care 11/28/2015 6 Overview: 11/28/2015Patient is transferring care from [facility] [place]. Her first visit was 11/21/2015. She recently moved here from [place]. Records have been faxed here and are in Dr Cohn's office for upcoming appointment. TKRN Family history of defect 11/28/2015 06/03/2016 Overview: 11/28/2015The FOB born with polycystic kidney disease. TKRN documented as of this encounter (statuses as of 11/21/2023) [facility] Abdominal pain, right lower quadrant- Primary Intractable abdominal pain Abdominal pain, unspecified site Diarrhea documented in this encounter [facility] Work Phone: Evaluation note* Diagnosis Hydronephrosis of right kidney Hydronephrosis documented in this encounter [facility] Work Phone: Evaluation note* Diagnosis Right upper quadrant abdominal pain Abdominal pain, right upper quadrant Hematuria, gross Gross hematuria Hydronephrosis with ureteropelvic junction (UPJ) obstruction documented in this encounter [facility] Work Phone: Evaluation note* Diagnosis Generalized abdominal pain- Primary Abdominal pain, generalized documented in this encounter [facility] Work Phone: Evaluation note* Diagnosis Nausea and vomiting, intractability of vomiting not specified, unspecified vomiting type Generalized abdominal pain Abdominal pain, generalized Weight loss Loss of weight documented in this encounter [facility] Work Phone: Evaluation note* Diagnosis Pre-op testing- Primary Preoperative examination, unspecified documented in this encounter [facility] Work Phone: Evaluation note* Diagnosis Right lower quadrant abdominal pain- Primary Abdominal pain, right lower quadrant documented in this encounter [facility] Work Phone: Evaluation note* Diagnosis Right upper quadrant abdominal pain- Primary Abdominal pain, right upper quadrant Constipation, unspecified constipation type Hydronephrosis, unspecified hydronephrosis type Intractable abdominal pain Abdominal pain, unspecified site Intractable vomiting with nausea Anemia Anemia, unspecified documented in this encounter [facility] Work Phone: Evaluation note* Diagnosis Acute pancreatitis, unspecified complication status, unspecified pancreatitis type Intractable abdominal pain Abdominal pain, unspecified site Pancreatitis due to common bile duct stone Acute pancreatitis Anemia Anemia, unspecified YVONNE (generalized anxiety disorder) Generalized anxiety disorder Hemorrhagic cyst of left ovary Chronic constipation Unspecified constipation documented in this encounter [facility] Work Phone: Evaluation note* Diagnosis Abdominal pain, epigastric- Primary documented in this encounter [facility] Work Phone: Evaluation note* Diagnosis Idiopathic acute pancreatitis without infection or necrosis- Primary documented in this encounter [facility]* Diagnosis Generalized abdominal pain- Primary Abdominal pain, generalized Post-operative pain Other acute postoperative pain documented in this encounter [facility] Work Phone: Evaluation note* Diagnosis Sore throat- Primary Acute pharyngitis Wheezing URI, acute Acute upper respiratory infections of unspecified site documented in this encounter [facility] note* Diagnosis Acute non-recurrent pansinusitis- Primary documented in this encounter [facility] note* Diagnosis Sore throat- Primary Acute pharyngitis documented in this encounter [facility] note* Diagnosis Mass of upper outer quadrant of left breast- Primary Fibrocystic breast changes, unspecified laterality Mastalgia in female Mastodynia documented in this encounter [facility] note* Diagnosis Mass of right breast, unspecified quadrant- Primary documented in this encounter [facility] note* Diagnosis Unspecified lump in the right breast, unspecified quadrant Unspecified lump in the left breast, unspecified quadrant documented in this encounter [facility] note* Diagnosis Unspecified lump in the right breast, unspecified quadrant Unspecified lump in the left breast, unspecified quadrant documented in this encounter [facility] note* Diagnosis Bilateral nipple discharge- Primary documented in this encounter [facility] note* Diagnosis Pelvic pain in female- Primary Unspecified symptom associated with female genital organs Lower abdominal pain Abdominal pain, other specified site Constipation, unspecified constipation type documented in this encounter [facility] note* Diagnosis Bilateral nipple discharge documented in this encounter [facility] note* Diagnosis Bilateral nipple discharge- Primary Constipation, unspecified constipation type Right lower quadrant abdominal pain documented in this encounter [facility] note* Diagnosis Generalized abdominal pain- Primary Abdominal pain, generalized Constipation, unspecified constipation type documented in this encounter [facility] note* Diagnosis Mass of upper outer quadrant of left breast Mass of right breast, unspecified quadrant documented in this encounter [facility] note* Diagnosis Viral bronchitis- Primary Acute bronchitis documented in this encounter [facility] note* Diagnosis Sore throat- Primary Acute pharyngitis Acute cough Viral bronchitis Acute bronchitis documented in this encounter [facility] note* Diagnosis Generalized abdominal pain- Primary Abdominal pain, generalized documented in this encounter [facility] note* Diagnosis Flu-like symptoms- Primary Other general symptoms Sore throat Acute pharyngitis documented in this encounter [facility] note* Diagnosis Abdominal pain, epigastric- Primary documented in this encounter [facility] note* Diagnosis Gastroparesis- Primary Chronic abdominal pain Abdominal pain, unspecified site History of esophagogastroduodenoscopy (EGD) History of colonoscopy Other postprocedural status History of abdominal surgery documented in this encounter [facility] note* Diagnosis Viral URI with cough- Primary Acute upper respiratory infections of unspecified site documented in this encounter [facility] note* Diagnosis Procedure not carried out- Primary Procedure not carried out for other reasons documented in this encounter [facility] noteNo assessment information [facility]WMorrow [facility]* Diagnosis Gastroparesis- Primary Chronic abdominal pain Abdominal pain, unspecified site History of esophagogastroduodenoscopy (EGD) History of colonoscopy Other postprocedural status History of abdominal surgery documented in this encounter [facility] note* Diagnosis Bacterial sinusitis- Primary Unspecified sinusitis (chronic) Sore throat Acute pharyngitis documented in this encounter [facility] note* Diagnosis Gastroparesis documented in this encounter [facility] note* Diagnosis Gastroparesis Chronic abdominal pain Abdominal pain, unspecified site documented in this encounter [facility] note* Diagnosis Nausea and vomiting, unspecified vomiting type- Primary documented in this encounter [facility] note* Diagnosis Nausea and vomiting, unspecified vomiting type- Primary documented in this encounter [facility] note* Diagnosis Gastroesophageal reflux disease, unspecified whether esophagitis present- Primary documented in this encounter [facility] note* Diagnosis Abdominal pain, unspecified abdominal location- Primary Constipation, unspecified constipation type documented in this encounter [facility] note* Diagnosis LUQ abdominal pain- Primary Abdominal pain, left upper quadrant Gastroparesis Psoas muscle strain, right, sequela Chronic abdominal pain Abdominal pain, unspecified site Mild asthma without complication, unspecified whether persistent Hiatal hernia with gastroesophageal reflux documented in this encounter [facility] note* Diagnosis Nausea and vomiting, unspecified vomiting type documented in this encounter [facility] note* Diagnosis Gastroparesis- Primary Nausea and vomiting, unspecified vomiting type Chronic abdominal pain Abdominal pain, unspecified site History of esophagogastroduodenoscopy (EGD) History of colonoscopy Other postprocedural status Alternating constipation and diarrhea S/P cholecystectomy Other acquired absence of organ documented in this encounter [facility] note* Diagnosis Viral illness- Primary Unspecified viral infection, in conditions classified elsewhere and of unspecified site documented in this encounter [facility] note* Diagnosis Rhinosinusitis- Primary Unspecified sinusitis (chronic) Acute otitis media, left Unspecified otitis media documented in this encounter [facility] note* Diagnosis Gastroparesis- Primary documented in this encounter [facility] note* Diagnosis Acute cough documented in this encounter [facility] note* Diagnosis Fibrocystic breast changes, bilateral- Primary documented in this encounter [facility] note* Diagnosis Wheezing- Primary Influenza-like illness Influenza with other respiratory manifestations Mild intermittent asthma with acute exacerbation Unspecified asthma, with exacerbation Wheezing Influenza-like illness Influenza with other respiratory manifestations documented in this encounter [facility] note* Diagnosis Wheezing Influenza-like illness Influenza with other respiratory manifestations documented in this encounter [facility] note* Diagnosis Acute otitis media, right- Primary Unspecified otitis media documented in this encounter [facility] note* Diagnosis Left lower quadrant abdominal pain- Primary Diarrhea, unspecified type Dehydration Constipation, unspecified constipation type documented in this encounter [facility] note* Diagnosis Gastroparesis- Primary documented in this encounter [facility] note* Diagnosis Arthralgia, unspecified joint- Primary Mild asthma without complication, unspecified whether persistent documented in this encounter [facility] note* Diagnosis Rectal bleeding- Primary Hemorrhage of rectum and anus Other fatigue Constipation, unspecified constipation type Anemia, unspecified type documented in this encounter [facility] note* Diagnosis Abdominal pain, generalized- Primary documented in this encounter [facility] note* Diagnosis Infected skin lesion- Primary documented in this encounter [facility] note* Diagnosis Infected skin lesion- Primary documented in this encounter [facility] note* Diagnosis Bacterial sinusitis- Primary Unspecified sinusitis (chronic) Acute effusion of right ear documented in this encounter [facility] note* Diagnosis Sinobronchitis- Primary Unspecified sinusitis (chronic) documented in this encounter [facility] note* Diagnosis Acute cough- Primary Acute non-recurrent sinusitis, unspecified location Acute cough documented in this encounter [facility] note* Diagnosis Acute cough documented in this encounter [facility] note* Diagnosis Sore throat- Primary Acute pharyngitis Strep throat Streptococcal sore throat Viral illness Unspecified viral infection, in conditions classified elsewhere and of unspecified site documented in this encounter [facility] note* Diagnosis Flank pain- Primary Abdominal pain, unspecified site documented in this encounter [facility] note* Diagnosis Influenza A- Primary Influenza with other respiratory manifestations Flank pain Abdominal pain, unspecified site documented in this encounter [facility] note* Diagnosis Pleurisy- Primary Pleurisy without mention of effusion or current tuberculosis documented in this encounter [facility] note* Diagnosis Breast pain, left- Primary Fibrocystic breast changes, bilateral documented in this encounter [facility] note* Diagnosis Gastroparesis- Primary History of esophagogastroduodenoscopy (EGD) History of colonoscopy Other postprocedural status S/P cholecystectomy Other acquired absence of organ Chronic idiopathic constipation Unspecified constipation documented in this encounter [facility] note* Diagnosis Gastroparesis- Primary History of esophagogastroduodenoscopy (EGD) History of colonoscopy Other postprocedural status S/P cholecystectomy Other acquired absence of organ Chronic idiopathic constipation Unspecified constipation documented in this encounter [facility] note* Diagnosis Breast pain, left Fibrocystic breast changes, bilateral documented in this encounter [facility] note* Diagnosis Abdominal pain, unspecified abdominal location- Primary documented in this encounter [facility] Discharge instructions* Instructions* Aminah Hemphill MD - 02/17/2021 Thank you for trusting us with your care today. You may use tylenol or ibuprofen for fever and pain. You may also use home medications including Bentyl and Pyridium for pain as instructed. Please also make sure to primary care physician for referral to pain management. Please make an appointment with your primary care doctor for reevalaution in 1-4 days. Please return to the emergency department for any new concerning or worsening symptoms. documented in this [facility] Work Phone: Hospital Discharge instructions* Attachments The following attachments cannot be sent through Care Everywhere. * Pancreatitis ([place]) documented in this [facility] Work Phone: Hospital Discharge instructions* Attachments The following attachments cannot be sent through Care Everywhere. * Laparoscopic Hysterectomy: Post-op ([place]) documented in this [facility]* Attachments The following attachments cannot be sent through Care Everywhere. * Constipation Discharge Instructions, Adult ([place]izen [place]) * Polyethylene Glycol 3350, ADULT ([place]) * Ondansetron, ADULT ([place]) * Severe Abdominal Pain Discharge Instructions, Adult ([place]) [facility]* Attachments The following attachments cannot be sent through Care Everywhere. * Severe Abdominal Pain Discharge Instructions, Adult ([place]izen [place]) documented in this [facility] Discharge instructions* Attachments The following attachments cannot be sent through Care Everywhere. * Pleuritic Chest Pain Discharge Instructions ([place]) documented in this [facility] for referral (narrative)* Diagnostic Procedure Only (Routine) - Authorized Specialty Diagnoses / Procedures Referred By Rosalba crocker Referred To Contact [facility] Diagnoses Mass of upper outer quadrant of left breast Procedures US BREAST LTD LEFT US BREAST UNI REAL TIME WITH IMAGE LIMITED Nicolasa Tan APRN.CNM [address] [place] [address] [facility] [place] [address] Referral ID Status Reason Start Date Expiration Date Visits Requested Visits Authorized [id number] Authorized Auto-Generat ed Referral 01/26/2023 02/24/2024 1 1 * Diagnostic Procedure Only (Routine) - Pending Review Specialty Diagnoses / Procedures Referred By Rosalba crocker Referred To Contact [facility] IMAGING Diagnoses Mass of upper outer quadrant of left breast Procedures PHILIPP DIAGNOSTIC BILATERAL DIAGNOSTIC MAMMOGRAPHY COMPUTER-AIDED DETCJ BI Nicolasa Tan APRN.CNM [address] [place] [address] [facility] [address] [place] [address] Referral ID Status Reason Start Date Expiration Date Visits Requested Visits Authorized [id number] Pending Review Auto-Generat ed Referral 01/25/2023 02/24/2024 1 1 [facility] for referral (narrative)* Diagnostic Procedure Only (Routine) - Waiting for Online Response Specialty Diagnoses / Procedures Referred By Contac t Referred To Contact BR IMAGING Diagnoses Mass of right breast, unspecified quadrant Procedures US BREAST LTD RIGHT US BREAST UNI REAL TIME WITH IMAGE LIMITED Lyubov Aaron APRN.ENGINE DISPATCHER [address] [place] [address] [facility] [address] [place] [address] Referral ID Status Reason Start Date Expiration Date Visits Requested Visits Authorized [id number] Waiting for Online Response Auto-Generat ed Referral 01/26/2023 02/25/2024 1 1 [facility] for referral (narrative)* Diagnostic Procedure Only (Routine) - Closed Specialty Diagnoses / Procedures Referred By Contac t Referred To Contact BR IMAGING Diagnoses Mass of right breast, unspecified quadrant Procedures US BREAST LTD RIGHT US BREAST UNI REAL TIME WITH IMAGE LIMITED Lyubov Aaron APRN.ENGINE DISPATCHER [address] [place] [address] [facility] [address] [place] [address] Referral ID Status Reason Start Date Expiration Date V isits Requested Visits Authorized [id number] Closed Auto-Generate d Referral 01/26/2023 01/26/2023 1 1 * Diagnostic Procedure Only (Routine) - Closed Specialty Diagnoses / Procedures Referred By Contac t Referred To Contact BR IMAGING Diagnoses Mass of upper outer quadrant of left breast Procedures US BREAST LTD LEFT US BREAST UNI REAL TIME WITH IMAGE LIMITED Nicolasa Tan APRN.CNM [address] [facility] [place] [address] [facility] [address] [place] [address] Referral ID Status Reason Start Date Expiration Date V isits Requested Visits Authorized [id number] Closed Auto-Generate d Referral 01/26/2023 02/24/2024 1 1 [facility] for referral (narrative)* Consultation (Routine) - Pending Review Specialty Diagnoses / Procedures Referred By Contac t Referred To Contact Gastroenterology Diagnoses Abdominal pain, epigastric Procedures OR OFFICE/OUTPATIENT NEW HIGH MDM 60 MINUTES Jean Odonnell DO [address] [place] [address] [facility] [address] [place] [address] Referral ID Status Reason Start Date Expiration Date Visits Requested Visits Authorized [id number] Pending Review Specialty Services Required 08/04/2024 1 1 [facility] Consultation (Routine) - Pending Review Specialty Diagnoses / Procedures Referred By Contac t Referred To Contact Dietitian / Bariatrics Diagnoses Gastroparesis Procedures OR OFFICE/OUTPATIENT NEW HIGH [facility] 60 MINUTES Scooter Gunderson PA-C [address] [place] [address] [facility] [address] [place] [address] Referral ID Status Reason Start Date Expiration Date Visits Requested Visits Authorized [id number] Pending Review Specialty Services Required 09/14/2023 09/13/2024 1 1 [facility] Consultation (Routine) - Authorized Specialty Diagnoses / Procedures Referred By Contac t Referred To Contact Nutrition / Internal Medicine Diagnoses Gastroparesis Procedures OR OFFICE/OUTPATIENT NEW HIGH MDM 60 MINUTES Scooter Gunderson PA-C [address] [place] [address] [facility] [address] [place] [address] Referral ID Status Reason Start Date Expiration Date Visits Requested Visits Authorized [id number] Authorized Specialty Services Required 09/14/2023 09/13/2024 1 1 [facility] for referral (narrative)* Consultation (Routine) - Pending Review Specialty Diagnoses / Procedures Referred By Rosalba t Referred To Contact Gastroenterology Diagnoses Gastroparesis Procedures OR OFFICE/OUTPATIENT NEW HIGH MDM 60 MINUTES Scooter Gunderson PA-C [address] [place] [address] Neptali Gonzáles DO [address] [place] [address] Referral ID Status Reason Start Date Expiration Date Visits Requested Visits Authorized [id number] Pending Review Specialty Services Required 03/08/2024 03/08/2025 1 1 Scheduling Instructions Gastroparesis on 4 hour gastric emptying. 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 Advance Directives and Living Will Power of Rn Pediatric Latest Code Status on File Code Status Date Activated Date Inactivated Comments Full Code 08/12/2018 10:11 AM 08/15/2018 10:36 AM Documents on File Type Date Recorded 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 Advance Directives and Living Will Power of Rn Pediatric Latest Code Status on File Code Status Date Activated Date Inactivated Comments Full Code 05/14/2019 10:12 PM During GI procedure Full Code 05/12/2019 6:32 PM 05/14/2019 10:12 PM Full Code 08/12/2018 10:11 AM 08/15/2018 10:36 AM Latest Code Status on File Code Status Date Activated Date Inactivated Comments Full Code 05/14/2019 10:12 PM 05/22/2019 1:44 PM Dur ing GI procedure Latest Code Status on File Code Status Date Activated Date Inactivated Comments Full Code 02/19/2020 11:16 PM Full Code 07/25/2019 1:01 AM 07/27/2019 8:10 PM Full Code 07/18/2019 1:57 PM 07/19/2019 8:28 PM Full Code 05/14/2019 10:12 PM 05/22/2019 1:44 PM Dur ing GI procedure Latest Code Status on File Code Status Date Activated Date Inactivated Comments Full Code 02/23/2020 8:11 AM 02/23/2020 6:19 PM Full Code 02/19/2020 11:16 PM 02/21/2020 7:04 PM Documents on File Type Date Recorded 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 ACP-Advance Directive ACP-Power of Rn Pediatric Latest Code Status on File Code Status Date Activated Date Inactivated Comments Full Code 07/25/2019 1:01 AM 07/27/2019 8:10 PM Latest Code Status on File Code Status Date Activated Date Inactivated Comments Full Code 02/23/2020 8:11 AM Latest Code Status on File Code Status Date Activated Date Inactivated Comments Full Code 08/12/2018 10:11 AM 08/15/2018 10:36 AM Latest Code Status on File Code Status Date Activated Date Inactivated Comments Full Code 12/04/2020 12:01 AM Full Code 02/23/2020 8:11 AM 02/23/2020 6:19 PM Documents on File Type Date Recorded 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 ACP-Advance Directive ACP-Power of Rn Pediatric Latest Code Status on File Code Status Date Activated Date Inactivated Comments Full Code 12/04/2020 12:01 AM 12/06/2020 8:52 PM Full Code 02/23/2020 8:11 AM 02/23/2020 6:19 PM Full Code 02/19/2020 11:16 PM 02/21/2020 7:04 PM Full Code 07/25/2019 1:01 AM 07/27/2019 8:10 PM Full Code 07/18/2019 1:57 PM 07/19/2019 8:28 PM Latest Code Status on File Code Status Date Activated Date Inactivated Comments Full Code 12/28/2020 9:57 AM Full Code 12/04/2020 12:01 AM 12/06/2020 8:52 PM Latest Code Status on File Code Status Date Activated Date Inactivated Comments Full Code 12/28/2020 9:57 AM 12/29/2020 2:38 AM Latest Code Status on File Code Status Date Activated Date Inactivated Comments Full Code 12/28/2020 9:57 AM 12/29/2020 2:38 AM Full Code 12/04/2020 12:01 AM 12/06/2020 8:52 PM Latest Code Status on File Code Status Date Activated Date Inactivated Comments Full Code 03/26/2021 3:04 PM Full Code 03/26/2021 5:56 AM 03/26/2021 9:59 AM Full Code 12/28/2020 9:57 AM 12/29/2020 2:38 AM Latest Code Status on File Code Status Date Activated Date Inactivated Comments Full Code 07/18/2019 1:57 PM Latest Code Status on File Code Status Date Activated Date Inactivated Comments Full Code 07/25/2019 1:01 AM Latest Code Status on File Code Status Date Activated Date Inactivated Comments Full Code 03/26/2021 3:04 PM 03/27/2021 1:38 PM Latest Code Status on File Code Status Date Activated Date Inactivated Comments Full Code 05/05/2022 6:30 PM Full Code 03/26/2021 3:04 PM 03/27/2021 1:38 PM Advance Directive Response Recorded Date/ Time Living Will No October 21, 2023 7:52am Power of Rn Pediatric No October 20 7:52am Reason for Referral Status Reason Specialty Diagnoses / Procedures Referre d By Contact Referred To Contact Closed Radiology Diagnoses Abdominal mass, unspecified abdominal location Procedures MRI ABDOMEN WO CONTRAST Joseph Johnson DO [address] [place] [address] Status Reason Specialty Diagnoses / Procedures Re ferred By Contact Referred To Contact Open Radiology Diagnoses Hydronephrosis of right kidney Procedures US RETROPERITONEAL LIMITED Elin Raya MD [address] [place] [address] Status Reason Specialty Diagnoses / Procedures Re ferred By Contact Referred To Contact Closed Radiology Diagnoses Nausea and vomiting, intractability of vomiting not specified, unspecified vomiting type Generalized abdominal pain Weight loss Procedures NM GASTRIC EMPTYING Naty Moran PA-C [address] [facility] [address] [place] [address] Specialty Diagnoses / Procedures Referred By Contac t Referred To Contact Radiology Diagnoses Bilateral nipple discharge Procedures Bilateral breast MR with and without contrast Lenin De Los Santos MD [address] [facility] [address] [place] [address] Referral ID Status Reason Start Date Expiration Date V isits Requested Visits Authorized [id number] Pending Review 04/20/2023 10/17/2023 1 1 Referral ID Status Reason Start Date Expiration Date Visits Re quested Visits Authorized [id number] Closed 04/20/2023 10/17/2023 1 1 Specialty Diagnoses / Procedures Referred By Contac t Referred To Contact Radiology Diagnoses Nausea and vomiting, unspecified vomiting type Procedures NM gastric emptying solid Scooter Gunderson PA-C [address] [facility] [address] [place] [address] Referral ID Status Reason Start Date Expiration Date V isits Requested Visits Authorized [id number] Pending Review 12/03/2023 12/02/2024 3 3 Referral ID Status Reason Start Date Expiration Date V isits Requested Visits Authorized [id number] Authorized 12/03/2023 12/02/2024 3 3 Assessments Diagnosis Abdominal mass, unspecified abdominal location Diagnosis 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, bile ducts, and liver Abnormal findings on imaging of biliary tract Nonspecific (abnormal) findings on radiological and other examination of biliary tract LUQ abdominal pain Abdominal pain, left upper quadrant Non-intractable vomiting Chronic constipation Unspecified constipation Abnormal barium enema Nonspecific (abnormal) findings on radiological and other examination of gastrointestinal tract PFO (patent foramen ovale) Ostium secundum type atrial septal defect Diagnosis Visit for wound check- Primary Encounter for other specified aftercare Diagnosis Pelvic pain Abdominal pain Abdominal pain, unspecified site Diagnosis Abdominal pain, unspecified abdominal location Postoperative pain Other acute postoperative pain Diagnosis Palpitations Diagnosis Lower abdominal pain Abdominal pain, other specified site Diagnosis Pain in joint involving right pelvic region and thigh Lower abdominal pain Abdominal pain, other specified site Diagnosis Constipation- Primary Unspecified constipation Dysuria Diagnosis Pain in joint involving right pelvic region and thigh Lower abdominal pain Abdominal pain, other specified site Diagnosis Recurrent acute pancreatitis- Primary Acute pancreatitis Diagnosis Vaginal bleeding Other specified noninflammatory disorder of vagina Postoperative pain Other acute postoperative pain Discharge Instructions * Instructions* Mya Kolb MD - 05/20/2019 Discharge Instructions Call your surgeon in 1 to 2 days to schedule a follow-up appointment in 1-2 weeks. OK to shower. OK for activity as tolerated. No lifting over 10 pounds. Wound Care: keep wound clean and dry, reinforce dressing PRN and ice to area for comfort. If you have steri-strips, you may remove them 5 days after your surgery. If your steri-strips fall off sooner, you may leave them off. If you have vaughn, they can be removed in 14 days after your surgery by your surgeon or PCP. If you have a drain, please record daily output amounts and bring the recordings with you to your office follow up. No driving while taking narcotic/sedating medications. You may take an over the counter stool softener while on narcotics for constipation as needed (colace, miralax, etc). Continue your diet as currently ordered. Call your Physician or return to the Emergency Room if you experience: -New or increased pain. -New or increased bleeding. -Nausea & vomitting. -Fever & chills. -Shortness of breath. -Chest pain. -Abdominal distention. documented in this encounter* Attachments The following attachments cannot be sent through Care Everywhere. * Surgery Post-op: General Info ([place]) documented in this encounter* Instructions* Kai Fragoso DO - 02/23/2020 Walk as much as you can. Take Motrin for pain. Percocet for severe pain. Take MiraLAX for stool softener. Return if increasing pain problems concerns * Attachments The following attachments cannot be sent through Care Everywhere. * Pain Post-Surgery: Acute ([place]) * Abdominal Pain ([place]) documented in this encounter* Instructions* Felix Basilio MD - 05/08/2020 Continue all current medications. * Attachments The following attachments cannot be sent through Care Everywhere. * Palpitations ([place]izen [place]) documented in this encounter* Attachments The following attachments cannot be sent through Care Everywhere. * Abdominal Pain ([place]) documented in this encounter* Instructions* Janet Pablo MD - 02/23/2020 Pelvic Laparoscopy: What to Expect at Home Your Recovery After surgery, it's normal to have a sore belly, cramping, or pain around the cuts the doctor made (incisions) for up to 4 days. You can expect to feel better and stronger each day. But you might gettired quickly and need pain medicine for a few days. Some people are able to return to work the dayafter surgery. Others need to recover for a few days to a few weeks before going back to work. Sometimes pressure from the gas used during surgery causes other side effects. You may have pain inyour neck or shoulders. Or you may feel pressure on your bladder and need to urinate more often than usual. These side effects should go away in less than 4 days. Do not lift anything heavy while you are recovering so that your incisions can heal. This care sheet gives you a general idea about how long it will take for you to recover. But each person recovers at a different pace. Follow the steps below to get better as quickly as possible. How can you care for yourself at home? Activity Rest when you feel tired. Getting enough sleep will help you recover. Try to walk each day. Start out by walking a little more than you did the day before. Bit by bit, increase the amount you walk. Walking boosts blood flow and helps prevent pneumonia and constipation. For 1 week, avoid lifting anything that would make you strain. This may include a child, heavy grocery bags and milk containers, a heavy briefcase or backpack, cat litter or dog food bags, or a vacuum upholstery cleaner. Avoid strenuous activities, such as biking, jogging, weight lifting, and aerobic exercise, for 1 week. You may shower. Pat the incisions dry when you are done. Do not take a bath for the first week after surgery or until your doctor tells you it is okay. You may have some light vaginal bleeding. Wear sanitary pads if needed. Do not douche or use tampons. You may drive when you are no longer taking prescription pain medicine and can quickly move your foot from the gas pedal to the brake. You must also be able to sit comfortably for a long period of time, even if you do not plan to go far. You might get caught in traffic. You may need to take a few days to a few weeks off work. It depends on the type of work you do and how you feel. Do not have sex until your doctor tells you it is okay. Diet You can eat your normal diet. If your stomach is upset, try bland, low-fat foods like plain rice, broiled chicken, toast, and yogurt. Drink plenty of fluids (unless your doctor tells you not to). You may notice that your bowel movements are not regular right after your surgery. This is common. Try to avoid constipation and straining with bowel movements. You may want to take a fiber supplement every day. If you have not had a bowel movement after a couple of days, ask your doctor about taking a mild laxative. Medicines Your doctor will tell you if and when you can restart your medicines. He or she will also give you instructions about taking any new medicines. If you take aspirin or some other blood thinner, ask your doctor if and when to start taking it again. Make sure that you understand exactly what your doctor wants you to do. Be safe with medicines. Take pain medicines exactly as directed. ? If the doctor gave you a prescription medicine for pain, take it as prescribed. ? If you are not taking a prescription pain medicine, take an txrs-dof-uwcypym medicine such as acetaminophen (Tylenol), ibuprofen (Advil, Motrin), or naproxen (Aleve). Read and follow all instructions on the label. ? Do not take two or more pain medicines at the same time unless the doctor told you to. Many pain medicines contain acetaminophen, which is Tylenol. Too much acetaminophen (Tylenol) can be harmful. If you think your pain medicine is making you sick to your stomach: ? Take your medicine after meals (unless your doctor tells you not to). ? Ask your doctor for a different pain medicine. If your doctor prescribed antibiotics, take them as directed. Do not stop taking them just because you feel better. You need to take the full course of antibiotics. Incision care If you have strips of tape on the incisions, leave the tape on for a week or until it falls off. Wash the area daily with warm, soapy water and pat it dry. Keep the area clean and dry. You may cover it with a gauze bandage if it weeps or rubs against clothing. Change the bandage every day. Other instructions Wear loose, comfortable clothing, and avoid anything that puts pressure on your belly, such as a girdle, for a few weeks. You may want to use a heating pad on your belly to help with pain. Follow-up care is a tucker part of your treatment and safety. Be sure to make and go to all appointments, and call your doctor if you are having problems. It's also a good idea to know your test resultsand keep a list of the medicines you take. When should you call for help? [id number] anytime you think you may need emergency care. For example, call if: You passed out (lost consciousness). You have chest pain, are short of breath, or cough up blood. Call your doctor now or seek immediate medical care if: You have bright red vaginal bleeding that soaks one or more pads in an hour, or you have large clots. You are sick to your stomach or cannot drink fluids. You have vaginal discharge that has increased in amount or smells bad. You have pain that does not get better after you take pain medicine. You have signs of infection, such as: ? Increased pain, swelling, warmth, or redness. ? Red streaks leading from the incision. ? Pus draining from the incision. ? A fever. You have loose stitches, or your incisions come open. Bright red blood has soaked through the bandages over your incisions. You have signs of a blood clot in your leg (called a deep vein thrombosis), such as: ? Pain in your calf, back of the knee, thigh, or groin. ? Redness and swelling in your leg. You cannot pass stools or gas. Watch closely for changes in your health, and be sure to contact your doctor if you have any problems. Where can you learn more? Go to [email or web address] and sign in to your [employer] account. Enter D615 in the Search Health Information box to learn more about Pelvic Laparoscopy: What to Expect at Home. If you do not have an account, please click on the Sign Up Now link. Current as of: June 16, 2019 Content Version: 12.5 [employer]. Care instructions adapted under license by [employer]. If you have questions about a medical condition or this instruction, always ask your healthcare professional. [employer] disclaims any warranty or liability for your use of this information. documented in this encounter* Instructions* Kai Fragoso, DO - 01/26/2020 Return at 630 in the morning if having abdominal pain. Return sooner if worse. Return if any difficulties or concerns or increased bleeding. * Attachments The following attachments cannot be sent through Care Everywhere. * Abdominal Pain (Citizen Of [place]) documented in this encounter* Instructions* Felix Mcdaniel MD - 04/18/2019 TRY TO EAT GREEN vegetables anD AVOI fried food or meat or bread cereal or bagels GET LOTS OF REST AND STAY HYDRATED. AVOID SEX FOR NOW IT MAY MAKE IT WORSE * Attachments The following attachments cannot be sent through Care Everywhere. * Dysuria (Citizen Of [place]) * Constipation (Citizen Of [place]) * Video: Constipation: Here's Help (Citizen Of [place]) documented in this encounter* Instructions* Kai Fragoso, DO - 01/23/2020 Return if any problems or concerns. Call Dr. Yo in the morning. Not sure is causing her abdominal pain. At this time does not appear to be acute surgical emergency. Return if any problems or concerns * Attachments The following attachments cannot be sent through Care Everywhere. * Abdominal Pain (Citizen Of [place]) documented in this encounter* Attachments The following attachments cannot be sent through Care Everywhere. * Pancreatitis (Citizen Of [place]) * Pancreatitis: Acute: General Info (Citizen Of [place]) documented in this encounter* Attachments The following attachments cannot be sent through Care Everywhere. * Pain Post-Surgery: Acute (Citizen Of [place]) * Vaginal Bleeding (Citizen [place]) documented in this encounter History of Present Illness * Mya Kolb MD - 05/22/2019 7:50 AM EDT Department of General Surgery Daily Progress Note ADMIT DATE: 05/12/2019 TODAY'S DATE: 05/22/2019 SUBJECTIVE: No acute events overnight. States + gas, + bowel movement. Pain is well controlled. Pt denies n/v/d. Denies lightheadedness, SOB, or chest pain. Endorses ambulating hallways and in room. No other complaints. Tolerating soft diet. OBJECTIVE: VITALS: BP (!) 94/58 Pulse 92 Temp 99.3 F (37.4 C) (Temporal) Resp 16 Ht 5' 7 (1.702 m) Wt 147 lb 9.6 oz (67 kg) SpO2 97% BMI 23.12 kg/m INTAKE/OUTPUT: Date 05/22/19 0000 - 05/22/19 2359 Shift 9879-8095 6191-3625 5428-5845 24 Hour Total INTAKE P.O.(mL/kg/hr) 620 620 Shift Total(mL/kg) 620(9.3) 620(9.3) OUTPUT Urine(mL/kg/hr) 975 975 Shift Total(mL/kg) 975(14.6) 975(14.6) Weight (kg) 67 67 67 67 I/O last 3 completed shifts: In: 620 [P.O.:620] Out: 975 [Urine:975] No intake/output data recorded. PHYSICAL EXAM: Gen: NAD, A&Ox3, pain well controlled Heart: RRR, well perfused Lungs: symmetric chest rise, normal work of breathing, breath sounds b/l Abd: minimal RUQ tenderness, minimal distention, soft. Non rigid. Incisions clean, dry, and intact. Ext: no c/c/e no gross deformities Skin: mild erythema where the abdominal binder was placed, warm, well perfused, <2 cm cap refill, no other obvious rashes, cellulitis or gross discoloration LABS CBC: Recent Labs 05/20/191105/21/1943 05/22/19148 WBC 6.2 4.6 5.0 HGB 9.5* 9.2* 9.5* HCT 27.9* 27.3* 27.9* PLT 239 276 334 BMP: Recent Labs 05/20/191105/21/1943 05/22/19148 NA 137 138 137 K 3.8 3.8 4.0 CL 104 102 100 CO2 26 29 28 BUN 4* 3* 7 CREATININE 0.53 0.55 0.55 GLUCOSE 86 83 81 Hepatic: No results for input(s): AST, ALT, ALB, BILITOT, ALKPHOS in the last 72 hours. Current Inpatient Medications Scheduled Meds: docusate sodium 100 mg Oral BID senna 1 tablet Oral BID polyethylene glycol 17 g Oral Daily acetaminophen 1,000 mg Oral 3 times per day methocarbamol 500 mg Oral 4x Daily pantoprazole 40 mg Oral QAM AC hydrocortisone-aloe Topical BID sodium chloride flush 10 mL Intravenous 2 times per day sodium chloride flush 10 mL Intravenous 2 times per day enoxaparin 40 mg Subcutaneous Daily Continuous Infusions: PRN Meds:oxyCODONE OR oxyCODONE, ondansetron, morphine OR morphine, phenol, ipratropium-albuterol, sodium chloride (PF), diphenhydrAMINE, albuterol sulfate HFA, sodium chloride flush ASSESSMENT AND PLAN: 23 y.o. female POD 4 s/p open cholecystectomy and excision of duodenal cyst, recovering well postoperatively - GI soft diet - hep lock IV fluids - colace, glycolax, and senokot for constipation - PO tylenol q8hrs, Robaxin q6hrs, dc morphine and oxycodone q4hrs prn for pain control - zofran q6hrs prn for nausea - remove abdominal binder due to skin irritation - ambulate as tolerated - PPI - DVT ppx with SCD's and lovenox - benadryl and hydrocortisone cream for skin rash - dc today, f/u in clinic MYA KOLB MD PGY-IV 05/22/19 7:50 AM * Mya Kolb MD - 05/21/2019 8:13 AM EDT Department of General Surgery Daily Progress Note ADMIT DATE: 05/12/2019 TODAY'S DATE: 05/21/2019 SUBJECTIVE: No acute events overnight. States + gas, no bowel movement yet. Says she is normally constipated at home. Pain is well controlled. Pt denies n/v/d. Denies lightheadedness, SOB, or chest pain. Endorses ambulating hallways and in room. No other complaints. OBJECTIVE: VITALS: BP 92/67 Pulse 76 Temp 98.7 F (37.1 C) (Temporal) Resp 16 Ht 5' 7 (1.702 m) Wt 147 lb 9.6 oz (67 kg) SpO2 97% BMI 23.12 kg/m INTAKE/OUTPUT: No intake/output data recorded. No intake/output data recorded. PHYSICAL EXAM: Gen: NAD, A&Ox3, pain well controlled Heart: RRR, well perfused Lungs: symmetric chest rise, normal work of breathing, breath sounds b/l Abd: minimal RUQ tenderness, minimal distention, soft. Non rigid. Incisions clean, dry, and intact. Ext: no c/c/e no gross deformities Skin: mild erythema where the abdominal binder was placed, warm, well perfused, <2 cm cap refill, no other obvious rashes, cellulitis or gross discoloration LABS CBC: Recent Labs 05/19/1933205/20/191105/21/19 0543 WBC 7.2 6.2 4.6 HGB 10.8* 9.5* 9.2* HCT 32.0* 27.9* 27.3* PLT 218 239 276 BMP: Recent Labs 05/19/1933205/20/191105/21/19 0543 NA 138 137 138 K 3.6 3.8 3.8 CL 103 104 102 CO2 26 26 29 BUN 5* 4* 3* CREATININE 0.58 0.53 0.55 GLUCOSE 85 86 83 Hepatic: No results for input(s): AST, ALT, ALB, BILITOT, ALKPHOS in the last 72 hours. Current Inpatient Medications Scheduled Meds: docusate sodium 100 mg Oral BID senna 1 tablet Oral BID polyethylene glycol 17 g Oral Daily acetaminophen 1,000 mg Intravenous Q8H methocarbamol 1,000 mg Intravenous Q6H sodium chloride flush 10 mL Intravenous 2 times per day pantoprazole 40 mg Intravenous BID And sodium chloride (PF) 10 mL Intravenous BID sodium chloride flush 10 mL Intravenous 2 times per day enoxaparin 40 mg Subcutaneous Daily Continuous Infusions: PRN Meds:oxyCODONE, ondansetron, morphine OR morphine, phenol, ipratropium- albuterol, sodium chloride (PF), diphenhydrAMINE, albuterol sulfate HFA, sodium chloride flush ASSESSMENT AND PLAN: 23 y.o. female POD 4 s/p open cholecystectomy and excision of duodenal cyst, recovering well postoperatively - fu AM labs and replete electrolytes PRN - daily AM CBC and BMP - GI soft diet - hep lock IV fluids - colace, glycolax, and senokot for constipation - IV tylenol q8hrs, Robaxin q6hrs, morphine q3hrs prn, and oxycodone q4hrs prn for pain control - zofran q6hrs prn for nausea - remove abdominal binder due to skin irritation - ambulate as tolerated - PPI - DVT ppx with SCD's and lovenox - benadryl and hydrocortisone cream for skin rash Archana Rosas MS4 05/21/19 8:13 AM Agree with above note, with minor changes. MYA KOLB #[id number] Associated attestation - Neptali Kaur MD - 05/21/2019 12:36 PM EDT I saw and evaluated the patient. I agree with the findings and plan of care as documented in the resident's note. The patient was seen on 05/21/2019 * Mya Kolb MD - 05/20/2019 9:40 AM EDT Department of General Surgery Daily Progress Note ADMIT DATE: 05/12/2019 TODAY'S DATE: 05/20/2019 SUBJECTIVE: No acute events overnight. Improved abdominal pain over incisions. Patient is able to sleep through the night because of reduced pain. Pt denies n/v/d. Denies lightheadedness, SOB, or chest pain. No other complaints. OBJECTIVE: VITALS: BP 107/71 Pulse 92 Temp 97.7 F (36.5 C) (Temporal) Resp 18 Ht 5' 7 (1.702 m) Wt 147 lb 9.6 oz (67 kg) SpO2 99% BMI 23.12 kg/m INTAKE/OUTPUT: I/O last 3 completed shifts: In: 1514 [P.O.:240; I.V.:1274] Out: 850 [Urine:850] No intake/output data recorded. PHYSICAL EXAM: Gen: NAD, A&Ox3, pain well controlled Heart: RRR, well perfused Lungs: symmetric chest rise, normal work of breathing, breath sounds b/l Abd: tenderness over incisions, soft, non distended. Non rigid. Incisions clean, dry, and intact. Ext: no c/c/e no gross deformities Skin: warm, well perfused, <2 cm cap refill, no obvious rashes, cellulitis or gross discoloration LABS CBC: Recent Labs 05/18/19 0024 05/19/193 05/20/19 0012 WBC 8.3 7.2 6.2 HGB 11.1* 10.8* 9.5* HCT 33.2* 32.0* 27.9* PLT 210 218 239 BMP: Recent Labs 05/18/194 05/19/193 05/20/19 0012 NA 139 138 137 K 4.0 3.6 3.8 CL 105 103 104 CO2 24 26 26 BUN 6* 5* 4* CREATININE 0.66 0.58 0.53 GLUCOSE 93 85 86 Hepatic: No results for input(s): AST, ALT, ALB, BILITOT, ALKPHOS in the last 72 hours. Current Inpatient Medications Scheduled Meds: acetaminophen 1,000 mg Intravenous Q8H methocarbamol 1,000 mg Intravenous Q6H sodium chloride flush 10 mL Intravenous 2 times per day pantoprazole 40 mg Intravenous BID And sodium chloride (PF) 10 mL Intravenous BID sodium chloride flush 10 mL Intravenous 2 times per day enoxaparin 40 mg Subcutaneous Daily Continuous Infusions: dextrose 5% and 0.45% NaCl with KCl 20 mEq 75 mL/hr at 05/19/192056 PRN Meds:oxyCODONE, ondansetron, morphine OR morphine, phenol, ipratropium- albuterol, sodium chloride (PF), diphenhydrAMINE, albuterol sulfate HFA, sodium chloride flush ASSESSMENT AND PLAN: 23 y.o. female POD 3 s/p open cholecystectomy and excision of duodenal cyst, recovering well postoperatively - fu AM labs and replete electrolytes PRN - daily AM CBC and BMP - full liquid diet, IV LR - Tylenol IV q8hrs, robaxin q6hrs, morphine IV q3hrs prn, and Roxicodone q4hrs prn for pain control - zofran q6hrs prn for nausea - PPI - Ambulate as tolerated - DVT ppx with SCD's and lovenox Archana Rosas MS4 05/20/19 9:41 AM Reviewed note, agree with plans. MYA KOLB #[id number] Associated attestation - Neptali Kaur MD - 05/20/2019 12:19 PM EDT I saw and evaluated the patient. I agree with the findings and plan of care as documented in the resident's note. The patient was seen on 05/20/2019 * Mya Kolb MD - 05/19/2019 1:36 PM EDT Department of General Surgery Daily Progress Note ADMIT DATE: 05/12/2019 TODAY'S DATE: 05/19/2019 SUBJECTIVE: No acute events overnight. NG removed yesterday, no n/v, no flatus or BM. Pain under control for most part. OBJECTIVE: VITALS: BP 104/62 Pulse 98 Temp 97 F (36.1 C) (Temporal) Resp 16 Ht 5' 7 (1.702 m) Wt 147 lb 9.6 oz (67 kg) SpO2 95% BMI 23.12 kg/m INTAKE/OUTPUT: Date 05/19/19 0000 - 05/19/19 2359 Shift 2678-6127 1185-7928 4397-2056 24 Hour Total INTAKE I.V.(mL/kg) 985(14.7) 985(14.7) Shift Total(mL/kg) 985(14.7) 985(14.7) OUTPUT Urine(mL/kg/hr) 700(1.3) 700 Shift Total(mL/kg) 700(10.5) 700(10.5) Weight (kg) 67 67 67 67 I/O last 3 completed shifts: In: 985 [I.V.:985] Out: 1300 [Urine:1300] No intake/output data recorded. PHYSICAL EXAM: Gen: NAD, A&Ox3, pain moderately controlled Heart: RRR, well perfused Lungs: symmetric chest rise, normal work of breathing, breath sounds b/l Abd: tenderness RLQ and LLQ, soft, non distended. Non rigid. Incisions clean, dry, and intact. No erythema surrounding incisions. Ext: no c/c/e no gross deformities Skin: warm, well perfused, <2 cm cap refill, no obvious rashes, cellulitis or gross discoloration LABS CBC: Recent Labs 05/17/19 0241 05/18/19 0024 05/19/19 0333 WBC 9.1 8.3 7.2 HGB 9.9* 11.1* 10.8* HCT 29.4* 33.2* 32.0* PLT 208 210 218 BMP: Recent Labs 05/17/19 0241 05/18/19 0024 05/19/19 0333 NA 140 139 138 K 4.2 4.0 3.6 CL 108* 105 103 CO2 26 24 26 BUN 3* 6* 5* CREATININE 0.60 0.66 0.58 GLUCOSE 127* 93 85 Hepatic: No results for input(s): AST, ALT, ALB, BILITOT, ALKPHOS in the last 72 hours. Current Inpatient Medications Scheduled Meds: acetaminophen 1,000 mg Intravenous Q8H methocarbamol 1,000 mg Intravenous Q6H sodium chloride flush 10 mL Intravenous 2 times per day pantoprazole 40 mg Intravenous BID And sodium chloride (PF) 10 mL Intravenous BID sodium chloride flush 10 mL Intravenous 2 times per day enoxaparin 40 mg Subcutaneous Daily Continuous Infusions: dextrose 5% and 0.45% NaCl with KCl 20 mEq 100 mL/hr at 05/19/19 0841 PRN Meds:morphine OR morphine, phenol, ipratropium-albuterol, promethazine, sodium chloride (PF), diphenhydrAMINE, albuterol sulfate HFA, sodium chloride flush ASSESSMENT AND PLAN: 23 y.o. female POD 2 s/p open cholecystectomy and excision duodenal cyst, recovering well postoperatively -Daily AM CBC and BMP -Limited clears - 500 cc -IV tylenol q8hrs, IV morphine prn -phenergan q4hrs prn -PPI -D545 @ 75mL/hr - Ambulate as tolerated - DVT ppx with SCD's and lovenox MYA KOLB MD PGY-IV 05/19/19 1:36 PM * Kelly Lynn, MS, RD, LD - 05/18/2019 3:36 PM EDT Nutrition Assessment Type and Reason for Visit: Reassess Nutrition Recommendations: 1. Patient has been without adequate nutrition since admission. Suggest begin nutrition within 24-48 hours. 2. If able to begin po diet, suggest clear liquid with goal of General/GI Soft 3. Monitor need for oral nutritional supplements once po diet established 4. If extended bowel rest indicated, suggest begin TPN. 5. RD continue to monitor overall nutritional status and follow up weekly Nutrition Assessment: Patient POD #2 open stas & excision duodenal cyst. Upper GI planned today. Patient currently NPO with NG (LIS). Patient sleeping in bedside chair during RD visit. Malnutrition Assessment: Malnutrition Status: At risk for malnutrition Nutrition Risk Level: High Nutrient Needs: Estimated Daily Total Kcal: 3745-6626 (30-33) Estimated Daily Protein (g): 61-73 (1.0-1.2) Estimated Daily Total Fluid (ml/day): per MD Nutrition Diagnosis: Problem: Inadequate energy intake Etiology: related to Alteration in GI function ? Signs and symptoms: as evidenced by NPO status due to medical condition Objective Information: Nutrition-Focused Physical Findings: hypoactive bowel sounds; NG (LIS); +I&O; no edema noted; Harjinder 19 Wound Type: Surgical Wound Current Nutrition Therapies: Oral Diet Orders: NPO Oral Diet intake: NPO Oral Nutrition Supplement (ONS) Orders: None ONS intake: NPO Anthropometric Measures: Ht: 5' 7 (170.2 cm) Admission Body Wt: 147 lb (66.7 kg) % Weight Change: , Per EPIC review: (08/12/18) 155#; (02/16/19) 152# [place] Body Wt: 135 lb (61.2 kg), BMI Classification: BMI 18.5 - 24.9 Normal Weight Nutrition Interventions: Continue NPO, Start oral diet Continued Inpatient Monitoring Nutrition Evaluation: Evaluation: No progress toward goals Goals: Start nutrition within 24-48 hours Monitoring: Nutrition Progression, Meal Intake, Diet Tolerance, Wound Healing, Skin Integrity, I&O, Weight, Pertinent Labs, Nausea or Vomiting, Diarrhea, Constipation, Monitor Bowel Function Contact Number: pager [phone] * Archana Rosas - 05/18/2019 7:37 AM EDT Department of General Surgery Daily Progress Note ADMIT DATE: 05/12/2019 TODAY'S DATE: 05/18/2019 SUBJECTIVE: No acute events overnight. Endorses abdominal pain and improved nausea. Abdominal pain is over incisions. Pain is improving. Pt denies v/d. Denies lightheadedness, SOB, or chest pain. Voiding well. No BM. Moves to chair and walks through mares. No other complaints. OBJECTIVE: VITALS: BP (!) 95/58 Pulse 97 Temp 98.2 F (36.8 C) (Temporal) Resp 16 Ht 5' 7 (1.702 m) Wt 147 lb 9.6 oz (67 kg) SpO2 93% BMI 23.12 kg/m INTAKE/OUTPUT: Date 05/18/19 0000 - 05/18/19 2359 Shift 4179-7174 6582-0915 4164-7382 24 Hour Total INTAKE P.O. 0 0 I.V.(mL/kg/hr) 978 978 Shift Total(mL/kg) 978(14.6) 978(14.6) OUTPUT Urine(mL/kg/hr) 150 150 Emesis/NG output 50 50 Shift Total(mL/kg) 200(3) 200(3) Weight (kg) 67 67 67 67 I/O last 3 completed shifts: In: 2264 [P.O.:75; I.V.:2189] Out: 1105 [Urine:925; Emesis/NG output:180] No intake/output data recorded. PHYSICAL EXAM: Gen: NAD, A&Ox3, pain moderately controlled Heart: RRR, well perfused Lungs: symmetric chest rise, normal work of breathing, breath sounds b/l Abd: tenderness RLQ and LLQ, soft, non distended. Non rigid. Incisions clean, dry, and intact. Scant serosanguinous drainage noted. No erythema surrounding incisions. Ext: no c/c/e no gross deformities Skin: warm, well perfused, <2 cm cap refill, no obvious rashes, cellulitis or gross discoloration LABS CBC: Recent Labs 05/16/1924405/17/1924005/18/19 0024 WBC 4.6 9.1 8.3 HGB 10.1* 9.9* 11.1* HCT 29.8* 29.4* 33.2* PLT 201 208 210 BMP: Recent Labs 05/16/1924419 0241 05/18/19 0024 NA 140 140 139 K 4.0 4.2 4.0 CL 108* 108* 105 CO2 25 26 24 BUN 4* 3* 6* CREATININE 0.61 0.60 0.66 GLUCOSE 157* 127* 93 Hepatic: No results for input(s): AST, ALT, ALB, BILITOT, ALKPHOS in the last 72 hours. Current Inpatient Medications Scheduled Meds: acetaminophen 1,000 mg Intravenous Q8H methocarbamol 1,000 mg Intravenous Q6H sodium chloride flush 10 mL Intravenous 2 times per day pantoprazole 40 mg Intravenous BID And sodium chloride (PF) 10 mL Intravenous BID sodium chloride flush 10 mL Intravenous 2 times per day enoxaparin 40 mg Subcutaneous Daily Continuous Infusions: dextrose 5% and 0.45% NaCl with KCl 20 mEq 100 mL/hr at 05/17/19 1721 PRN Meds:phenol, morphine OR morphine, ipratropium-albuterol, promethazine, sodium chloride (PF), diphenhydrAMINE, albuterol sulfate HFA, sodium chloride flush ASSESSMENT AND PLAN: 23 y.o. female POD 2 s/p open cholecystectomy and excision duodenal cyst, recovering well postoperatively - fu AM labs and replete electrolytes PRN - daily AM CBC and BMP -UGI today -NG until UGI -IV tylenol q8hrs, IV morphine prn -phenergan q4hrs prn -PPI -D545 @ 100mL/hr - NPO - Ambulate as tolerated - DVT ppx with SCD's and lovenox Archana Rosas MS4 05/18/19 7:37 AM Associated attestation - Ricky Sales MD - 05/18/2019 8:31 AM EDT Agree with the note and plans. Upper GI today for possible NGT removal. * Stacy Whitney APRN - ENGINE DISPATCHER - 05/17/2019 8:09 AM EDT 05/17/2019 Referring Physician: Ricky Sales MD We are following this 23 y.o. female for management of Exparel block. Exparel Block Injection date: 05/16/19 Medication : Bupivacaine liposome injectable suspension Location: Transversus Abdominis Plane/Upper Rectus Side Effects: Denies nausea, headache, constipation, dysgeusia, pyrexia, hypoesthesia, muscle twitching, vomiting, pruritus, dizziness, hypertension, dyspepsia. Pain Score specific to surgical site: moderate Overall satisfaction with pain control: Somewhat Satisfied When did block wear off? TBD Physical Exam Abdominal: There is tenderness. Patient exhibits normal ROM and muscle tone, no muscle spasms, pulses intact, strength intact bilaterally. Negative for falls, and no sensory nerve deficit noted. Assessment & Plan: 1. Patient has EXPAREL block lasting 96 hours. No Lidocaine patches or local anesthetics for 96 hours with Exparel block. 2. The Acute Pain Service (APS) is following this patient to manage Exparel Block Only. If you would like the APS to manage this patient's pain regimen in addition to Exparel Block, Please place consult: Inpatient Consult to Anesthesiology - Acute Pain Service. Reason: Manage Pain Regimen 3. Pt is NPO with NGT in place, highly recommend SLEEPING ROOM CLEANER pump for adequate pain control. 4. Pain management regimen per primary team, please contact the APS with any further questions regarding the Exparel Block, thank you. Plan discussed with patient who appears to understand and agrees. The Acute Pain Service is available by pager #[phone] Wednesday-Wednesday [phone]. For questions or acute issues after hours, please contact hospital staple shear operator for name and pager number of the Pain Management Provider MOTOR DRIVER. * Jeffrey Conley MD - 05/17/2019 6:58 AM EDT Department of Surgery - Progress Note - Surg 1 PATIENT NAME: Socorro Gonsales : 1995 ATTENDING PHYSICIAN: Ricky Sales MD ADMIT DATE: 05/12/2019 TODAY'S DATE: 05/17/2019 SUBJECTIVE Patient doing ok. Pain somewhat controlled. Nausea controlled with meds. No flatus or BM. Voiding well. Has not been up yet. . OBJECTIVE VITALS: BP 99/67 Pulse 91 Temp 97 F (36.1 C) (Temporal) Resp 20 Ht 5' 7 (1.702 m) Wt 147lb 9.6 oz (67 kg) SpO2 97% BMI 23.12 kg/m PHYSICAL EXAM: CONSTITUTIONAL: NAD, A&O X3. EYES: No scleral icterus CHEST: Resp effort easy and unlabored ABDOMEN: soft, non-distended, very tender, appropriately, Peritoneal signs absent SKIN: Warm and dry INTAKE/OUTPUT: Date 05/17/19 - 05/17/192358 Shift 9116-5690 5932-9545 8619-8473 24 Hour Total INTAKE I.V.(mL/kg) 1200(17.9) 1200(17.9) Shift Total(mL/kg) 1200(17.9) 1200(17.9) OUTPUT Urine(mL/kg/hr) 1025 1025 Emesis/NG output(mL/kg) 120(1.8) 120(1.8) Shift Total(mL/kg) 1145(17.1) 1145(17.1) Weight (kg) 67 67 67 67 I/O last 3 completed shifts: In: 2700 [P.O.:300; I.V.:2400] Out: 1800 [Urine:1550; Blood:250] I/O this shift: In: 1200 [I.V.:1200] Out: 1145 [Urine:1025; Emesis/NG output:120] Data Recent Labs 05/15/19 0002 05/16/195 05/17/19240 WBC 4.7 4.6 9.1 HGB 9.9* 10.1* 9.9* HCT 29.1* 29.8* 29.4* PLT 201 201 208 Recent Labs 05/15/19 0002 05/16/19 0245 05/17/19 024 NA 139 140 140 K 3.8 4.0 4.2 CL 109* 108* 108* CO2 23 25 26 BUN 9 4* 3* CREATININE 0.65 0.61 0.60 GLUCOSE 72 157* 127* No results for input(s): AST, ALT, ALB, BILITOT, ALKPHOS in the last 72 hours. Current Inpatient Medications Current Facility-Administered Medications: acetaminophen (OFIRMEV) infusion 1,000 mg, 1,000 mg, Intravenous, Q8H methocarbamol (ROBAXIN) injection 1,000 mg, 1,000 mg, Intravenous, Q6H morphine sulfate (PF) injection 2 mg, 2 mg, Intravenous, Q2H PRN OR morphine sulfate (PF) injection 4 mg, 4 mg, Intravenous, Q2H PRN cefOXitin (MEFOXIN) 2 g in dextrose 5% 50 mL (mini-bag), 2 g, Intravenous, 4 times per day ipratropium-albuterol (DUONEB) nebulizer solution 1 ampule, 1 ampule, Inhalation, Q4H PRN morphine sulfate (PF) injection 4 mg, 4 mg, Intravenous, Q4H PRN dextrose 5 % and 0.45 % NaCl with KCl 20 mEq infusion, , Intravenous, Continuous promethazine (PHENERGAN) injection 12.5 mg, 12.5 mg, Intravenous, Q4H PRN sodium chloride flush 0.9 % injection 10 mL, 10 mL, Intravenous, 2 times per day sodium chloride (PF) 0.9 % injection 10 mL, 10 mL, Intravenous, PRN diphenhydrAMINE (BENADRYL) injection 25 mg, 25 mg, Intravenous, Q6H PRN pantoprazole (PROTONIX) injection 40 mg, 40 mg, Intravenous, BID AND sodium chloride (PF) 0.9 %injection 10 mL, 10 mL, Intravenous, BID albuterol sulfate HFA 108 (90 Base) MCG/ACT inhaler 2 puff, 2 puff, Inhalation, Q4H PRN sodium chloride flush 0.9 % injection 10 mL, 10 mL, Intravenous, 2 times per day sodium chloride flush 0.9 % injection 10 mL, 10 mL, Intravenous, PRN enoxaparin (LOVENOX) injection 40 mg, 40 mg, Subcutaneous, Daily ASSESSMENT AND PLAN 23 y.o. female s/p open cholecystectomy and excision duodenal cyst on 05/16. - Continue NG - UGI tomorrow - DC Barrera - Ambulate TID - IV Tylenol - Cont Cefoxitin for now - Robaxin - PPI - replace K - D545 @ 100 - PRN nausea, PRN Morphine Q2 - Daily CBC/BMP General Surgery, PGY-2 PAGING: From 6a-6p (6a-10a weekends): Page me at [phone] From 6p-6a (-s): - Surg ICU Patients: Page [phone] - Surg Floor Patients: Page [phone] Associated attestation - Rikcy Sales MD - 05/17/2019 9:18 AM EDT Patient seen and examined.Agree with the note and plans. * Nelli Harper PA-C - 05/16/2019 9:38 AM EDT Department of Internal Medicine Gastroenterology Attending Progress Note SUBJECTIVE: No acute events overnight. Endorses epigastric pain that is the same pain she presented with. She endorses 3 bowel movements yesterday. Endorses nausea without emesis today. Last episode of NBNB emesis was yesterday evening. She has been NPO for the OR today (05/16) Medications Current Facility-Administered Medications: acetaminophen (OFIRMEV) infusion 1,000 mg, 1,000 mg, Intravenous, Q8H ciprofloxacin (CIPRO) IVPB 400 mg, 400 mg, Intravenous, Q12H morphine sulfate (PF) injection 4 mg, 4 mg, Intravenous, Q4H PRN dextrose 5 % and 0.45 % NaCl with KCl 20 mEq infusion, , Intravenous, Continuous promethazine (PHENERGAN) injection 12.5 mg, 12.5 mg, Intravenous, Q4H PRN polyethylene glycol (GLYCOLAX) packet 17 g, 17 g, Oral, Daily sennosides-docusate sodium (SENOKOT-S) 8.6-50 MG tablet 2 tablet, 2 tablet, Oral, Daily sodium chloride flush 0.9 % injection 10 mL, 10 mL, Intravenous, 2 times per day sodium chloride (PF) 0.9 % injection 10 mL, 10 mL, Intravenous, PRN diphenhydrAMINE (BENADRYL) injection 25 mg, 25 mg, Intravenous, Q6H PRN pantoprazole (PROTONIX) injection 40 mg, 40 mg, Intravenous, BID AND sodium chloride (PF) 0.9 %injection 10 mL, 10 mL, Intravenous, BID albuterol sulfate HFA 108 (90 Base) MCG/ACT inhaler 2 puff, 2 puff, Inhalation, Q4H PRN sodium chloride flush 0.9 % injection 10 mL, 10 mL, Intravenous, 2 times per day sodium chloride flush 0.9 % injection 10 mL, 10 mL, Intravenous, PRN enoxaparin (LOVENOX) injection 40 mg, 40 mg, Subcutaneous, Daily OBJECTIVE VITALS: BP 93/60 Pulse 69 Temp 99.6 F (37.6 C) (Temporal) Resp 18 Ht 5' 7 (1.702 m) Wt 147 lb 9.6 oz (67 kg) SpO2 98% BMI 23.12 kg/m TEMPERATURE: Current - Temp: 99.6 F (37.6 C); Max - Temp Av.5 F (36.9 C) Min: 97.4 F (36.3 C) Max: 99.6 F (37.6 C) RESPIRATIONS RANGE: Resp Av.3 Min: 16 Max: 20 PULSE RANGE: Pulse Av.4 Min: 69 Max: 92 BLOOD PRESSURE RANGE: Systolic (24hrs), Av , Min:93 , Max:122 ; Diastolic (24hrs), Av, Min:59, Max:85 PULSE OXIMETRY RANGE: SpO2 Av.8 % Min: 95 % Max: 100 % 24HR INTAKE/OUTPUT: Intake/Output Summary (Last 24 hours) at 05/16/2019 0938 Last data filed at 05/16/2019 0615 Gross per 24 hour Intake 4074 ml Output 1150 ml Net 2924 ml GENERAL: Pleasant and NAD, sitting up HEENT: NCAT, PERRLA, EOMI, Scleral anicteric. Oropharhynx clear with no erythema or exudate. Neck supple, no cervical LAD or thyromegaly. CV: RRR, NL S1/S2, no murmurs. Distal pulses palpable and equal b/l. LUNGS: CTA b/l. Normal palpation. No W/R/R. ABD: + BS, soft, moderate epigastric tenderness and non-distended. No hepatosplenomegaly. No mass felt. No rebound. Voluntary guarding. EXT: No C/C/E. No muscle atrophy. Skin: No skin lesion or breakdown. Lymph: No cervical or supraclavicular LAD. Musculoskeletal: Strength 5/5 in all exts. No joint tenderness or effusions in LEs. Neurologic: A&O x 3, CN II-XII grossly intact. DTR +2 symmetric in patella. Normal cerebellar fxn. Non-focal. Data Recent blood work, radiologic study and endoscopic study were reviewed with the patient. CBC: Recent Labs 05/14/191305/15/19105/16/19 0245 WBC 4.8 4.7 4.6 RBC 3.48* 3.40* 3.50* HGB 10.1* 9.9* 10.1* HCT 29.8* 29.1* 29.8* MCV 85.5 85.6 85.0 MCH 29.1 29.2 29.0 MCHC 34.0 34.2 34.1 RDW 14.2 14.4 13.8 PLT 225 201 201 MPV 8.2 8.3 8.4 CMP: Recent Labs 05/14/191305/15/19105/16/19 0245 NA 139 139 140 K 3.7 3.8 4.0 CL 107 109* 108* CO2 25 23 25 BUN 9 9 4* CREATININE 0.62 0.65 0.61 GLUCOSE 81 72 157* CALCIUM 8.9 8.7 9.2 Radiology Review: No Images to review at this time EGD by Dr. Waters 05/15/2019 Findings Normal esophagus, no evidence of esophagitis or Fraga's Normal stomach and gastric mucosa with no evidence of erosions or ulcerations Normal Duodenal bulb Starting at the duodenal junction, there appeared to be a large subepithelial lesion, measuring ~ 6cm in maximum diameter and felt soft on consistency The ampulla was not visualized ERCP by Dr. Waters 05/15/2019 Findings: The ampulla appeared normal. Free deep biliary cannulation of the CBD was performed using a (4.4Fr) short- nosed traction autotome. A short 0.035'' guidewire was introduced into the CBD and advanced to the intrahepatic duct underfluoroscopic guidence. Contrast was injected and opacification of the main duct and the right and left intrahepatic ducts was successful. I personally interpreted the biliary tree images on fluoroscopy. The CBD appeared non-dilated and measured 6 mm in maximum diameter. The cystic duct was visualized. The gall bladder was seen to fill with contrast. No filling defect / contrast extravasation was seen. ASSESSMENT AND PLAN 1. 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 LUQ abdominal pain 3. Nausea and vomiting Note: Pt has LUQ abdominal pain and N/V, unclear related to type III choledochal cyst seen on imaging study. No evidence of gastric outlet or duodenal obstruction on imaging study, but will await UGIseries result. Will also obtain EGD to r/o peptic ulcer disease prior to ERCP for type III choledochal cyst assessment/treatment. Current management option for type III choledochal cyst was discussed with the patient including ERCP with sphincterotomy or endoscopic resection in the absence of neoplasia if feasible. Pt voiced understanding and agreed to proceed. Plan: 1. Continue Protonix for LUQ abdominal pain and N/V. 2. UGI series is postponed due to retained Gastrografin contrast from enema study. 3. Continue supportive care including IVF and pain control per surgery team. Continue to 4. Chronic constipation 5. Abnormal gastrografin enema Note: Pt likely has chronic slow transit constipation, currently exacerbated by narcotic pain medication. Abdominal exam showed no distention. There is low suspicion for classic Hirschsprung or ultra-short Hirschsprung disease based on physical exam and Gastrografin enema study findngs. The abnormal findings on gastrografin enema could be due to constipation alone, rather than blanco blockage at the distal transverse colon. Hence, the possibility of patient having segmental dilation of colon condition is also low. That said, the mainstay for the management of dysmotility-related constipationremains conservative bowel regimen. In addition, it is possible that correction of her upper GI pathology may help her constipation as well. Would continue bowel regimen as prescribed by surgery team, and give Mag Citrate 300 cc x 1 today. Will defer chronic constipation work up until after complete resolution of her upper GI pathology. Plan: 4 Continue bowel regimen as prescribed 5. Continue to monitor for increased abdominal pain and post-operative pancreatitis 5. Patient will need close f/u with PCP and GI clinic. Patient will contact own GI physician or call our GI clinic at [phone] to make f/u appointment as soon as patient is d/c'ed home. Patient voiced understanding and agreed of this recommendation. Will discuss with attending, Dr. Waters The GI[facility] consult service will sign off. Please call if there are any questions, concerns or change of patient's GI condition. Thanks. Associated attestation - Benito Waters MD - 05/16/2019 4:34 PM EDT Attending Supervising Physician s Attestation Statement I have reviewed the case with Advance Practice Provider (MYA), and agreed with the MYA's assessmentand plan as above. The above documentation has been reviewed and amended with the changes I have personally made to reflect the findings of my evaluation. I personally have not seen the patient today as she was in the OR Benito Waters MD 05/16/2019 * Mya Kolb MD - 05/16/2019 8:27 AM EDT Department of Surgery - Progress Note - Surg 1 PATIENT NAME: Socorro Gonsales : 1995 ATTENDING PHYSICIAN: Ricky Sales MD ADMIT DATE: 05/12/2019 TODAY'S DATE: 05/16/2019 SUBJECTIVE Slept well overnight. Intermittent nausea and pain controlled with phenergan. No f/c. No BM overnight, +flatus, NPO for OR today. OBJECTIVE VITALS: BP 93/60 Pulse 69 Temp 99.6 F (37.6 C) (Temporal) Resp 18 Ht 5' 7 (1.702 m) Wt 147 lb 9.6 oz (67 kg) SpO2 98% BMI 23.12 kg/m PHYSICAL EXAM: CONSTITUTIONAL: NAD, A&O X3. EYES: No scleral icterus CHEST: Resp effort easy and unlabored ABDOMEN: soft, non-distended, mild diffusely tenderness, Peritoneal signs absent, SKIN: Warm and dry INTAKE/OUTPUT: Date 05/16/19 0000 - 05/16/19 2359 Shift 9126-0049 2833-0883 2529-8398 24 Hour Total INTAKE P.O.(mL/kg/hr) 300(0.6) 300 I.V.(mL/kg) 1000(14.9) 1000(14.9) Shift Total(mL/kg) 1300(19.4) 1300(19.4) OUTPUT Urine(mL/kg/hr) 400(0.7) 400 Shift Total(mL/kg) 400(6) 400(6) Weight (kg) 67 67 67 67 I/O last 3 completed shifts: In: 4074 [P.O.:540; I.V.:3534] Out: 1150 [Urine:1150] No intake/output data recorded. Data Recent Labs 05/14/19 0014 05/15/19 0002 05/16/19 0245 WBC 4.8 4.7 4.6 HGB 10.1* 9.9* 10.1* HCT 29.8* 29.1* 29.8* PLT 225 201 201 Recent Labs 05/14/194 05/15/19 0002 05/16/19 0245 NA 139 139 140 K 3.7 3.8 4.0 CL 107 109* 108* CO2 25 23 25 BUN 9 9 4* CREATININE 0.62 0.65 0.61 GLUCOSE 81 72 157* No results for input(s): AST, ALT, ALB, BILITOT, ALKPHOS in the last 72 hours. Current Inpatient Medications Current Facility-Administered Medications: ciprofloxacin (CIPRO) IVPB 400 mg, 400 mg, Intravenous, Q12H morphine sulfate (PF) injection 4 mg, 4 mg, Intravenous, Q4H PRN dextrose 5 % and 0.45 % NaCl with KCl 20 mEq infusion, , Intravenous, Continuous promethazine (PHENERGAN) injection 12.5 mg, 12.5 mg, Intravenous, Q4H PRN polyethylene glycol (GLYCOLAX) packet 17 g, 17 g, Oral, Daily sennosides-docusate sodium (SENOKOT-S) 8.6-50 MG tablet 2 tablet, 2 tablet, Oral, Daily sodium chloride flush 0.9 % injection 10 mL, 10 mL, Intravenous, 2 times per day sodium chloride (PF) 0.9 % injection 10 mL, 10 mL, Intravenous, PRN diphenhydrAMINE (BENADRYL) injection 25 mg, 25 mg, Intravenous, Q6H PRN pantoprazole (PROTONIX) injection 40 mg, 40 mg, Intravenous, BID AND sodium chloride (PF) 0.9 %injection 10 mL, 10 mL, Intravenous, BID albuterol sulfate HFA 108 (90 Base) MCG/ACT inhaler 2 puff, 2 puff, Inhalation, Q4H PRN sodium chloride flush 0.9 % injection 10 mL, 10 mL, Intravenous, 2 times per day sodium chloride flush 0.9 % injection 10 mL, 10 mL, Intravenous, PRN enoxaparin (LOVENOX) injection 40 mg, 40 mg, Subcutaneous, Daily ASSESSMENT AND PLAN 23 y.o. 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 - NPO, IV fluids - OR today for ex-lap, duodenal mass resection - Continue Protonix, bowel reg - IV tylenol - DC toradol General Surgery, PGY-4 PAGING: From 6a-6p (- weekends): Page me at [phone] From 6p-6a (-s): - Surg ICU Patients: Page [phone] - Surg Floor Patients: Page [phone] Associated attestation - Ricky Sales MD - 05/16/2019 8:31 AM EDT Agree with the note and plans. OR today. Consent signed. 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 I recommended transduodenal excision with possible cholecystectomy/intraoperative cholangiogram for papilla localization intraopera tively as needed. Risks of surgery, including but not limited to infection, bleeding, injury to other organs and bowel leaks, need for additional surgery and procedures as well as failure for symptoms to resolve were discussed with her in full and she is in agreement to proceed. All her questions answered in full, we discussed expectations for recovery and need for postoperative stay.We will schedule her for surgery tomorrow. * Kelly Lynn, MS, RD, LD - 05/15/2019 1:52 PM EDT Nutrition Assessment Type and Reason for Visit: Initial(DT referral for NPO x3 days) Nutrition Recommendations: 1. Patient has been without adequate nutrition since admission (x72 hours). Suggest begin nutritionwithin 24-48 hours. 2. Suggest goal diet of General once able to begin po diet 3. Monitor need for oral nutritional supplements 4. RD continue to monitor overall nutritional status and follow up weekly Nutrition Assessment: Patient admitted with choledochol cyst. Currently in PACU. Per notes, UGI unsuccessful 2/2 retained contrast. Will reattempt today. significant past medical history of syncope, PFO, asthma, seasonal allergies, tobacco abuse, and surgical hx of bilateral salpingoectomy who presents as a direct admit for abdominal pain, nausea, vomiting, food fear, constipation, and urinary urgency. The pain is whenever she eats and when she has to urinate or have a bowel movement. She has tried tramadol for pain, but it has only given her mild relief. She has had several episodes of vomiting after eating. Malnutrition Assessment: Malnutrition Status: Insufficient data Nutrition Risk Level: High Nutrient Needs: Estimated Daily Total Kcal: 7858-5220 (30-33) Estimated Daily Protein (g): 61-73 (1.0-1.2) Estimated Daily Total Fluid (ml/day): per MD Nutrition Diagnosis: Problem: Inadequate energy intake Etiology: related to Alteration in GI function ? Signs and symptoms: as evidenced by NPO status due to medical condition Objective Information: Nutrition-Focused Physical Findings: hypoactvie bowel sounds; +I&O; no edema noted; Harjinder 21 Wound Type: None Current Nutrition Therapies: Oral Diet Orders: NPO Oral Diet intake: NPO Oral Nutrition Supplement (ONS) Orders: None ONS intake: NPO Anthropometric Measures: Ht: 5' 7 (170.2 cm) Admission Body Wt: 147 lb (66.7 kg) % Weight Change: , Per EPIC review: (08/12/18) 155#; (02/16/19) 152# [place] Body Wt: 135 lb (61.2 kg), BMI Classification: BMI 18.5 - 24.9 Normal Weight Nutrition Interventions: Continue NPO, Start oral diet Continued Inpatient Monitoring Nutrition Evaluation: Evaluation: Goals set Goals: Start nutrition within 24-48 hours Monitoring: Nutrition Progression, Meal Intake, Diet Tolerance, Skin Integrity, I&O, Weight, Pertinent Labs, Nausea or Vomiting, Diarrhea, Constipation, Monitor Bowel Function Contact Number: pager [phone] * Marva Burton RN - 05/15/2019 1:00 PM EDT Patient was up to restroom and voided with no issues. * Jeffrey Conley MD - 05/15/2019 7:50 AM EDT Department of Surgery - Progress Note - Surg 1 PATIENT NAME: Socorro Gonsales : 1995 ATTENDING PHYSICIAN: Ricky Sales MD ADMIT DATE: 05/12/2019 TODAY'S DATE: 05/15/2019 SUBJECTIVE Got a bit more sleep overnight. Still nauseated, having considerable pain that is somewhat controlled with current meds. No f/c. Aware of plan for scope today. Had 3 bowel movements yesterdy. OBJECTIVE VITALS: BP (!) 96/56 Comment: Manual Pulse 84 Temp 99.2 F (37.3 C) (Temporal) Resp 16 Wt 147 lb 9.6 oz (67 kg) SpO2 96% BMI 24.56 kg/m PHYSICAL EXAM: CONSTITUTIONAL: NAD, A&O X3. EYES: No scleral icterus CHEST: Resp effort easy and unlabored ABDOMEN: soft, non-distended, diffusely tender, Peritoneal signs absent, SKIN: Warm and dry INTAKE/OUTPUT: Date 05/15/19 0000 - 05/15/19 2359 Shift 2723-7757 3218-6609 5050-0360 24 Hour Total INTAKE P.O.(mL/kg/hr) 100 100 I.V.(mL/kg) 914(13.7) 914(13.7) Shift Total(mL/kg) 1014(15.1) 1014(15.1) OUTPUT Urine(mL/kg/hr) 325 325 Shift Total(mL/kg) 325(4.9) 325(4.9) Weight (kg) 67 67 67 67 I/O last 3 completed shifts: In: 1014 [P.O.:100; I.V.:914] Out: 325 [Urine:325] No intake/output data recorded. Data Recent Labs 05/13/19 01305/14/19 0014 05/15/19 0002 WBC 6.8 4.8 4.7 HGB 11.2* 10.1* 9.9* HCT 32.5* 29.8* 29.1* PLT 264 225 201 Recent Labs 05/13/19 01305/14/19 0014 05/15/19 0002 NA 141 139 139 K 3.2* 3.7 3.8 CL 108* 107 109* CO2 25 25 23 BUN 9 9 9 CREATININE 0.66 0.62 0.65 GLUCOSE 110* 81 72 No results for input(s): AST, ALT, ALB, BILITOT, ALKPHOS in the last 72 hours. Current Inpatient Medications Current Facility-Administered Medications: promethazine (PHENERGAN) injection 12.5 mg, 12.5 mg, Intravenous, Q4H PRN polyethylene glycol (GLYCOLAX) packet 17 g, 17 g, Oral, Daily sennosides-docusate sodium (SENOKOT-S) 8.6-50 MG tablet 2 tablet, 2 tablet, Oral, Daily sodium chloride flush 0.9 % injection 10 mL, 10 mL, Intravenous, 2 times per day sodium chloride (PF) 0.9 % injection 10 mL, 10 mL, Intravenous, PRN indomethacin (INDOCIN) 50 MG suppository 100 mg, 100 mg, Rectal, Once ketorolac (TORADOL) injection 30 mg, 30 mg, Intravenous, Q6H morphine sulfate (PF) injection 4 mg, 4 mg, Intravenous, Q4H PRN diphenhydrAMINE (BENADRYL) injection 25 mg, 25 mg, Intravenous, Q6H PRN pantoprazole (PROTONIX) injection 40 mg, 40 mg, Intravenous, BID AND sodium chloride (PF) 0.9 %injection 10 mL, 10 mL, Intravenous, BID acetaminophen (TYLENOL) tablet 1,000 mg, 1,000 mg, Oral, 3 times per day albuterol sulfate HFA 108 (90 Base) MCG/ACT inhaler 2 puff, 2 puff, Inhalation, Q4H PRN sodium chloride flush 0.9 % injection 10 mL, 10 mL, Intravenous, 2 times per day sodium chloride flush 0.9 % injection 10 mL, 10 mL, Intravenous, PRN ondansetron (ZOFRAN) injection 4 mg, 4 mg, Intravenous, Q6H PRN lactated ringers infusion, , Intravenous, Continuous enoxaparin (LOVENOX) injection 40 mg, 40 mg, Subcutaneous, Daily ASSESSMENT AND PLAN 23 y.o. 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 - ERCP today - Continue Protonix, bowel reg, - UGI unsuccessful 2/2 retained contrast. Will reattempt today. - Diet per GI today General Surgery, PGY-2 PAGING: From 6a-6p (-s): Page me at [phone] From 6p-6a (-s): - Surg ICU Patients: Page [phone] - Surg Floor Patients: Page [phone] Associated attestation - Ricky Sales MD - 05/15/2019 9:02 AM EDT Patient seen and examined. Continues to have nausea and vomiting with every meal.Agree with the note and plans.Endoscopy/ERCP today, possible OR tomorrow depending on today;s tests results. * Emilie Ulrich - 05/14/2019 10:31 AM EDT Nutrition rescreen completed. Patient referred to the Dietitian. RUFINO Anne * Lyndon Mederos MD - 05/14/2019 8:58 AM EDT Department of Internal Medicine Gastroenterology Attending Progress Note SUBJECTIVE: No acute event overnight. Feeling nauseated this am, unclear worsened from frequent narcotic medication use. LUQ abdominal pain better controlled. No vomiting or overt GI bleeding such ashematemesis, melena or BRBPR. Medications Current Facility-Administered Medications: ketorolac (TORADOL) injection 30 mg, 30 mg, Intravenous,Q6H morphine sulfate (PF) injection 4 mg, 4 mg, Intravenous, Q4H PRN diphenhydrAMINE (BENADRYL) injection 25 mg, 25 mg, Intravenous, Q6H PRN pantoprazole (PROTONIX) injection 40 mg, 40 mg, Intravenous, BID AND sodium chloride (PF) 0.9 %injection 10 mL, 10 mL, Intravenous, BID acetaminophen (TYLENOL) tablet 1,000 mg, 1,000 mg, Oral, 3 times per day albuterol sulfate HFA 108 (90 Base) MCG/ACT inhaler 2 puff, 2 puff, Inhalation, Q4H PRN sodium chloride flush 0.9 % injection 10 mL, 10 mL, Intravenous, 2 times per day sodium chloride flush 0.9 % injection 10 mL, 10 mL, Intravenous, PRN ondansetron (ZOFRAN) injection 4 mg, 4 mg, Intravenous, Q6H PRN lactated ringers infusion, , Intravenous, Continuous enoxaparin (LOVENOX) injection 40 mg, 40 mg, Subcutaneous, Daily OBJECTIVE VITALS: BP (!) 90/56 Pulse 60 Temp 98.9 F (37.2 C) (Temporal) Resp 16 Wt 147 lb 9.6 oz (67 kg) SpO2 96% BMI 24.56 kg/m TEMPERATURE: Current - Temp: 98.9 F (37.2 C); Max - Temp Av.2 F (36.8 C) Min: 97.6 F (36.4 C) Max: 98.9 F (37.2 C) RESPIRATIONS RANGE: Resp Av Min: 16 Max: 16 PULSE RANGE: Pulse Av.2 Min: 54 Max: 76 BLOOD PRESSURE RANGE: Systolic (24hrs), Av , Min:90 , Max:122 ; Diastolic (24hrs), Av, Min:53, Max:69 PULSE OXIMETRY RANGE: SpO2 Av.4 % Min: 96 % Max: 100 % 24HR INTAKE/OUTPUT: Intake/Output Summary (Last 24 hours) at 05/14/2019 0858 Last data filed at 05/14/2019 0534 Gross per 24 hour Intake 2391 ml Output 750 ml Net 1641 ml GENERAL: Calm, pale vs fair complexion, and NAD. HEENT: NCAT, PERRLA, EOMI, Scleral anicteric. Oropharhynx clear with no erythema or exudate. Neck supple, no cervical LAD or thyromegaly. CV: RRR, NL S1/S2, no murmurs. Distal pulses palpable and equal b/l. LUNGS: CTA b/l. No W/R/R. ABD: + BS, soft, moderate tenderness to palpation in the LUQ and non-distended. No hepatosplenomegaly. No mass felt. No rebound or guarding. EXT: No C/C/E. No muscle atrophy. Lymph: No cervical or supraclavicular LAD. Neurologic: A&O x 3, CN II-XII grossly intact. DTR +2 symmetric in patella. Normal cerebellar fxn. Non-focal. Data Recent blood work and radiologic study were reviewed with the patient. CBC: Lab Results Component Value Date WBC 4.8 05/14/2019 RBC 3.48 05/14/2019 HGB 10.1 05/14/2019 HCT 29.8 05/14/2019 MCV 85.5 05/14/2019 MCH 29.1 05/14/2019 MCHC 34.0 05/14/2019 RDW 14.2 05/14/2019 PLT 225 05/14/2019 MPV 8.2 05/14/2019 CMP: Lab Results Component Value Date NA 139 05/14/2019 K 3.7 05/14/2019 CL 107 05/14/2019 CO2 25 05/14/2019 BUN 9 05/14/2019 CREATININE 0.62 05/14/2019 GLUCOSE 81 05/14/2019 PROT 8.1 04/27/2019 LABALBU 4.7 04/27/2019 CALCIUM 8.9 05/14/2019 BILITOT 0.4 04/27/2019 ALKPHOS 49 04/27/2019 AST 22 04/27/2019 ALT 14 04/27/2019 PT/INR: Lab Results Component Value Date PROTIME 13.5 08/12/2018 Gastrografin enema on 05/13/2019 showed: Sewer Cleaner image of the abdomen shows a moderate amount of fecal material predominantly within the ascending and proximal transverse colon. Patchy small bowel gas is present in nondilated bowel loops. Water-soluble contrast was instilled via rectal. Contrast shows normal caliber of the descending colon. Fecal content is encountered from mid transverse colon proximally. No annular or constricting masses are noted. Evaluation for polyps is limited due to the fecal content. There is a small amount of reflux into terminal ileum. Appendix is not visualized. Postevacuation imaging shows further reflux into terminal small bowel. There is retained contrast predominantly around the area of fecal content. Descending colon is decompressed. IMPRESSION: Retained fecal material is predominantly in the ascending colon and proximal transverse colon ASSESSMENT AND PLAN 1. 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 LUQ abdominal pain 3. Nausea and vomiting Note: Pt has LUQ abdominal pain and N/V, unclear related to type III choledochal cyst seen on imaging study. No evidence of gastric outlet or duodenal obstruction on imaging study, but will await UGIseries result. Will also obtain EGD to r/o peptic ulcer disease prior to ERCP for type III choledochal cyst assessment/treatment. Current management option for type III choledochal cyst was discussed with the patient including ERCP with sphincterotomy or endoscopic resection in the absence of neoplasia if feasible. Pt voiced understanding and agreed to proceed. Plan: 1. Continue Protonix for LUQ abdominal pain and N/V. 2. UGI series is postponed due to retained Gastrografin contrast from enema study. 3. Plan for both EGD and ERCP on Wednesday with Dr. Waters to r/o peptic ulcer disease and to assess/treat type III choledochal cyst. 4. Obtain PT/INR today. 5. Continue supportive care including IVF and pain control per surgery team 4. Chronic constipation 5. Abnormal gastrografin enema Note: Pt likely has chronic slow transit constipation, currently exacerbated by narcotic pain medication. Abdominal exam showed no distention. There is low suspicion for classic Hirschsprung or ultra-short Hirschsprung disease based on physical exam and Gastrografin enema study findngs. The abnormal findings on gastrografin enema could be due to constipation alone, rather than blanco blockage at the distal transverse colon. Hence, the possibility of patient having segmental dilation of colon condition is also low. That said, the mainstay for the management of dysmotility-related constipationremains conservative bowel regimen. In addition, it is possible that correction of her upper GI pathology may help her constipation as well. Would continue bowel regimen as prescribed by surgery team, and give Mag Citrate 300 cc x 1 today. Will defer chronic constipation work up until after complete resolution of her upper GI pathology. Plan: 6. Start Mag Citrate 300 cc x 1 today for constipation 7. Continue bowel regimen as prescribed Dr. Benito Waters will take over patient's care starting 8 am tomorrow morning Addendum: This visit lasted over 35 minutes and more than 51% time was spent re: counseling and care coordination of management of her upper GI pathology and chronic constipation. * Jeffrey Conley MD - 05/14/2019 8:09 AM EDT Department of Surgery - Progress Note - Surg 1 PATIENT NAME: Socorro Gonsales : 1995 ATTENDING PHYSICIAN: Ricky Sales MD ADMIT DATE: 05/12/2019 TODAY'S DATE: 05/14/2019 SUBJECTIVE Very nauseated this morning, but pain is improved. She slept more than last night and believes thatshe just missed her dose of nausea meds, which left her feeling poorly. OBJECTIVE VITALS: BP (!) 90/56 Pulse 60 Temp 98.9 F (37.2 C) (Temporal) Resp 16 Wt 147 lb 9.6 oz (67 kg) SpO2 96% BMI 24.56 kg/m PHYSICAL EXAM: CONSTITUTIONAL: NAD, A&O X3. EYES: No scleral icterus CHEST: Resp effort easy and unlabored ABDOMEN: soft, non-distended, diffusely tender, Peritoneal signs absent, palpation produces nausea SKIN: Warm and dry INTAKE/OUTPUT: Date 05/14/19 0000 - 05/14/19 2359 Shift 9510-8879 0262-5994 3072-9951 24 Hour Total INTAKE P.O.(mL/kg/hr) 0(0) 0 I.V.(mL/kg) 1025(15.3) 1025(15.3) Shift Total(mL/kg) 1025(15.3) 1025(15.3) OUTPUT Urine(mL/kg/hr) 350(0.7) 350 Shift Total(mL/kg) 350(5.2) 350(5.2) Weight (kg) 67 67 67 67 I/O last 3 completed shifts: In: 2391 [P.O.:100; I.V.:2291] Out: 750 [Urine:750] No intake/output data recorded. Data Recent Labs 05/13/1913005/14/19 0014 WBC 6.8 4.8 HGB 11.2* 10.1* HCT 32.5* 29.8* PLT 264 225 Recent Labs 05/13/1913005/14/19 0014 NA 141 139 K 3.2* 3.7 CL 108* 107 CO2 25 25 BUN 9 9 CREATININE 0.66 0.62 GLUCOSE 110* 81 No results for input(s): AST, ALT, ALB, BILITOT, ALKPHOS in the last 72 hours. Current Inpatient Medications Current Facility-Administered Medications: ketorolac (TORADOL) injection 30 mg, 30 mg, Intravenous,Q6H morphine sulfate (PF) injection 4 mg, 4 mg, Intravenous, Q4H PRN diphenhydrAMINE (BENADRYL) injection 25 mg, 25 mg, Intravenous, Q6H PRN pantoprazole (PROTONIX) injection 40 mg, 40 mg, Intravenous, BID AND sodium chloride (PF) 0.9 %injection 10 mL, 10 mL, Intravenous, BID acetaminophen (TYLENOL) tablet 1,000 mg, 1,000 mg, Oral, 3 times per day albuterol sulfate HFA 108 (90 Base) MCG/ACT inhaler 2 puff, 2 puff, Inhalation, Q4H PRN sodium chloride flush 0.9 % injection 10 mL, 10 mL, Intravenous, 2 times per day sodium chloride flush 0.9 % injection 10 mL, 10 mL, Intravenous, PRN ondansetron (ZOFRAN) injection 4 mg, 4 mg, Intravenous, Q6H PRN lactated ringers infusion, , Intravenous, Continuous enoxaparin (LOVENOX) injection 40 mg, 40 mg, Subcutaneous, Daily ASSESSMENT AND PLAN 23 y.o. female with likely choledochal cyst. Enema study yesterday also concerning for unusual appearance of the left colon. - will ask GI to weigh in on the gge findings - Protonix - UGI today - continue CLD as tolerated - EGD/ERCP Wednesday General Surgery, PGY-2 PAGING: From 6a-6p (-s): Page me at [phone] From 6p-6a (-s): - Surg ICU Patients: Page [phone] - Surg Floor Patients: Page [phone] Associated attestation - Peter Clarke MD - 05/15/2019 2:34 PM EDT Attending Supervising Physician's Attestation Statement I performed a history and physical examination of the patient and discussed the findings and management with the resident physician. I reviewed and agree with the findings and plan as documented. Date of service is 05/15/19 * Jeffrey Conley MD - 05/13/2019 9:02 AM EDT Department of Surgery - Progress Note - Surg 1 PATIENT NAME: Socorro Gonsales : 1995 ATTENDING PHYSICIAN: Ricky Sales MD ADMIT DATE: 05/12/2019 TODAY'S DATE: 05/13/2019 SUBJECTIVE Very uncomfortable this AM. Dry heaving, identifies the medication as the cause. No bowel movement,complaining of pain with urination. OBJECTIVE VITALS: BP 96/69 Pulse 68 Temp 97.6 F (36.4 C) (Temporal) Resp 16 Wt 147 lb 9.6 oz (67 kg) SpO2 97% BMI 24.56 kg/m PHYSICAL EXAM: CONSTITUTIONAL: NAD, A&O X3. EYES: No scleral icterus CHEST: Resp effort easy and unlabored ABDOMEN: soft, non-distended, diffusely tender, Peritoneal signs absent SKIN: Warm and dry INTAKE/OUTPUT: Date 05/13/19 0000 - 05/13/19 2359 Shift 0299-9774 2905-5976 3082-7251 24 Hour Total INTAKE Shift Total(mL/kg) OUTPUT Urine(mL/kg/hr) 200(0.4) 200 Shift Total(mL/kg) 200(3) 200(3) Weight (kg) 67 67 67 67 I/O last 3 completed shifts: In: - Out: 300 [Urine:300] No intake/output data recorded. Data Recent Labs 05/13/19130 WBC 6.8 HGB 11.2* HCT 32.5* PLT 264 Recent Labs 05/13/19130 NA 141 K 3.2* CL 108* CO2 25 BUN 9 CREATININE 0.66 GLUCOSE 110* No results for input(s): AST, ALT, ALB, BILITOT, ALKPHOS in the last 72 hours. Current Inpatient Medications Current Facility-Administered Medications: ketorolac (TORADOL) injection 30 mg, 30 mg, Intravenous,Q6H potassium chloride 10 mEq/100 mL IVPB (Peripheral Line), 10 mEq, Intravenous, Q1H morphine sulfate (PF) injection 4 mg, 4 mg, Intravenous, Q4H PRN diphenhydrAMINE (BENADRYL) injection 25 mg, 25 mg, Intravenous, Q6H PRN pantoprazole (PROTONIX) injection 40 mg, 40 mg, Intravenous, BID AND sodium chloride (PF) 0.9 %injection 10 mL, 10 mL, Intravenous, BID albuterol sulfate HFA 108 (90 Base) MCG/ACT inhaler 2 puff, 2 puff, Inhalation, Q4H PRN sodium chloride flush 0.9 % injection 10 mL, 10 mL, Intravenous, 2 times per day sodium chloride flush 0.9 % injection 10 mL, 10 mL, Intravenous, PRN ondansetron (ZOFRAN) injection 4 mg, 4 mg, Intravenous, Q6H PRN lactated ringers infusion, , Intravenous, Continuous acetaminophen (TYLENOL) tablet 650 mg, 650 mg, Oral, Q4H PRN enoxaparin (LOVENOX) injection 40 mg, 40 mg, Subcutaneous, Daily ASSESSMENT AND PLAN 23 y.o. female with likely choledochal cyst, in addition to chronic constipation. - Gastrograffin enema today - Transvaginal ultrasound to evaluate free pelvic fluid - Upper GI study - continue CLD - with change medications to improve tolerance Discussed with Dr. Clarke. General Surgery, PGY-2 PAGING: From -p (-s): Page me at [phone] From - (-s): - Surg ICU Patients: Page [phone] - Surg Floor Patients: Page [phone] Associated attestation - Peter Clarke MD - 05/13/2019 10:59 AM EDT Attending Supervising Physician's Attestation Statement I performed a history and physical examination of the patient and discussed the findings and management with the resident physician. I reviewed and agree with the findings and plan as documented withthe exception of the following changes/additions. Date of service is 05/13/19 Choledochal cyst seen on CT; appreciate GI input; pt symptoms are LLQ and LUQ and flank pain; worsewith BM and also worse with urination; indistinct free fluid in pelvis; check transvaginal ultrasound * Rhona Green RN - 05/13/2019 12:00 AM EDT Pt complained of pressure on bladder. Resident had nurse bladder scan and found 253 ml. Will continue to monitor patient. * Rhona Green RN - 05/12/2019 11:52 PM EDT Pt complained of continuing pain after given 0.5 dilaudid. Provider ordered 1 mg and gave nurse ok to give 1 hour following previous dose. documented in this encounter* Janet Lucio DTR - 02/21/2020 10:08 AM EDT Nutrition rescreen completed. Chart reviewed. Patient NPO for a procedure. Patient to be monitored and followed by the diet retail pharmacy technician. * Cortes Edwards DO - 02/21/2020 5:53 AM EDT TRAFFIC CONTROL OPERATOR Progress Note Date: 02/21/2020 Time: 5:54 AM Socorro Gonsales 24 y.o. female No obstetric history on file., HD 3 for chronic pelvic pain. Patient seen and examined. She complained of persistent lower abd pain that she feels is not responsive to any of the meds she has been given (Tylenol, Toradol and 10 mg Oxycodone and morphine). Patient is tolerating oral intake. She is urinating. She denies any vaginal bleeding. She is ambulating without difficulty. She denies Fever/Chills, Chest Pain, SOB, N/V. Vitals: Vitals: 02/20/20 1524 02/20/20 1911 02/20/20 2228 02/21/20 0302 BP: 100/63 107/71 120/70 99/61 Pulse: 93 94 85 88 Resp: Temp: 98.9 F (37.2 C) 97.6 F (36.4 C) 97.4 F (36.3 C) 97 F (36.1 C) TempSrc: Oral Temporal Temporal Temporal SpO2: 94% 100% 97% 97% Weight: Height: Intake/Output: Last Shift: @[id number]@ Current Shift: No intake/output data recorded. Physical Exam: Gen: NAD, alert and cooperative HEENT: Normocephalic, atraumatic, EOMI, MMM Resp: CTABL, no WRR Card: RRR, no murmur Abd: soft, diffusely ttp with voluntary guarrding, no rebound. Present BS Ext: No LE edema, no calf tenderness or swelling Medications: Current Facility-Administered Medications Medication Dose Route Frequency Provider Last Rate Last Dose hydrOXYzine (VISTARIL) capsule 50 mg 50 mg Oral Q6H PRN Cortes Edwards DO oxyCODONE (ROXICODONE) immediate release tablet 5 mg 5 mg Oral Q4H PRN Cortes Edwards DO Or oxyCODONE (ROXICODONE) immediate release tablet 10 mg 10 mg Oral Q4H PRN Cortes Edwards DO 10 mg at 02/21/20 0122 diatrizoate meglumine-sodium (GASTROGRAFIN) 66-10 % solution 30 mL 30 mL Oral ONCE PRN Veronica Mcdowell MD 30 mL at 02/20/20 1654 lactated ringers infusion Intravenous Continuous Tali Sneed MD 100 mL/hr at 02/20/20 2136 sodium chloride flush 0.9 % injection 3 mL 3 mL Intravenous Q8H Seferino Agustin MD 3 mL at 02/20/20 1806 sertraline (ZOLOFT) tablet 50 mg 50 mg Oral Daily Tali Sneed MD 50 mg at 02/20/20 2129 sodium chloride flush 0.9 % injection 10 mL 10 mL Intravenous 2 times per day Tali Sneed MD10 mL at 02/19/20 2354 sodium chloride flush 0.9 % injection 10 mL 10 mL Intravenous PRN Tali Sneed MD docusate sodium (COLACE) capsule 100 mg 100 mg Oral BID PRN Tali Sneed MD promethazine (PHENERGAN) tablet 12.5 mg 12.5 mg Oral Q6H PRN Tali Sneed MD 12.5 mg at 02/20/20 1447 acetaminophen (TYLENOL) tablet 1,000 mg 1,000 mg Oral Q8H Tali Sneed MD 1,000 mg at 02/20/20 2345 ketorolac (TORADOL) injection 30 mg 30 mg Intravenous Q6H Tali Sneed MD 30 mg at 02/21/20 0551 famotidine (PEPCID) injection 20 mg 20 mg Intravenous BID Tali Sneed MD 20 mg at 02/20/20 2134 Diagnostics: Ct Abdomen Pelvis W Contrast Result Date: 02/20/2020 Patient Name: SOCORRO GONSALES ---CT--- Exam Date/Time 02/20/2020 19:37:[address] Abdomen/Pelvis w/ IV Contrast (IV Onl Ordering Physician MD EDWARDS PHILIP E Accession Number [id number] CPT4 Codes 13182 (CT Abdomen/Pelvis w/ IV Contrast (IV Onl), Q9967 (CT ISOVUE 370MG/ML&[id number]&ML&1) Reason For Exam RLQ Abdominal Pain Report CT ABDOMEN AND PELVIS WITH CONTRAST CLINICAL INDICATION: RLQ Abdominal Pain TECHNIQUE: CT scan of the abdomen and pelvis, with IV contrast. Multiplanar reformations. COMPARISON: January,. FINDINGS: Abdomen: Visualized lung bases grossly unremarkable. Gallbladder surgically absent. Liver without significant abnormality. Spleen without significant abnormality. Pancreas without significant abnormality. Kidneys without significant abnormality. Adrenal glands without significant abnormality. Pelvis: Bowel grossly unremarkable. Appendix within normal limits. Trace amount of nonspecific, free pelvic fluid, may be physiologic. No discrete abscess. Abdominal aorta is nonaneurysmal. Heterogeneous and possibly partially hemorrhagic, cystic focus in the right ovary measuring approximately 2.5 cm. Axial skeleton grossly intact. Small and ovoid hypodensity again noted in the right psoas muscle anterior tothe right hip, about the same. IMPRESSION: 1. Findings which may represent physiologic cystic change and sequelae of right ovarian follicle or cyst rupture. 2. Small amount of possible bursal fluid in vicinity of right psoas muscle may be related to bursitis, similar to comparison. 3. No other acute findings. Report Dictated on Workstation: ANAIS --- Final --- Dictated: 02/20/2020 7:46 pm Dictating Physician: MD GARCIA WENDELL Signed Date and Time: 02/20/2020 7:53 pm Signed by: MD GARCIA WENDELL Transcribed Date and Time: 02/20/2020 7:46 Us Pelvis Complete Non-ob Transabdominal And Transvaginal Result Date: 02/19/2020 Patient Name: SOCORRO GONSALES ---Ultrasound--- Exam Date/Time 02/19/2020 21:12:00 EDT Exam US Pelvis TA/TV Ordering Physician BLAIR MOSER Accession Number [id number] CPT4 Codes 97679 (US Pelvis TA/TV), 54201 (US Transvaginal) Reason For Exam pelvic pa in Report ULTRASOUND PELVIS: CLINICAL INDICATION: pelvic pain LMP: 01/15/2020 COMPARISON: none TECHNIQUE: Transabdominal and transvaginal to optimally evaluate the ovaries and adnexal structures including color flow and spectral Doppler imaging FINDINGS: Uterus: Orientation: Retroverted Size: 8.8 x 6.7 x 5.1 cm Endometrium: 18 mm Mass: none Cervix: normal Right Ovary: Size: 3.8 x 2.9 x 3.4 cm Mass:none Cyst: 2.0 cm dominant follicle seen Color flow/Doppler waveform: normal Left Ovary: Size: 2.6 x 2.3 x 1.8 cm Mass: none Cyst: none Color flow/Doppler waveform: normal Cul-de-sac: Mild free fluidis seen within the pelvis. IMPRESSION: 1. Abnormal thickening of endometrial stripe complex, particularly in the fundus. This may be due to endometrial hypertrophy or polyp. Neoplasm cannot be excluded. 2. Mild free fluid within the pelvis, which may be physiologic. Report Dictated on --- Final --- Dictated: 02/19/2020 9:54 pm Dictating Physician: MD DE PAZ JAMES Signed Date and Time: 02/19/2020 10:05 pm Signed by: MD DE PAZ JAMES Transcribed Date and Time: 02/19/2020 10:04 Labs: Admission on 02/19/2020 Component Date Value Ref Range Status Sodium 02/19/2020 137 135 - 145 mmol/L Final Potassium 02/19/2020 4.1 3.5 - 5.1 mmol/L Final Chloride 02/19/2020 105 98 - 107 mmol/L Final CO2 02/19/2020 22 22 - 30 mmol/L Final Anion Gap 02/19/2020 10 NA Final Glucose 02/19/2020 94 70 - 100 mg/dL Final BUN 02/19/2020 10 7 - 20 mg/dL Final CREATININE 02/19/2020 0.62 0.52 - 1.25 mg/dL Final eGFR 02/19/2020 >90.0 >60 mL/min Final EGFR IF NonAfrican Japanese 02/19/2020 >90.0 >60 mL/min Final Comment: KDIGO guidelines provide the following GFR categories: Stage GFR(ml/min/1.73 m2) Terms G1 >=90 Normal or high G2 60-89 Mildly decreased* G3a 45-59 Mildly to moderately decreased G3b 30-44 Moderately to severely decreased G4 15-29 Severely decreased G5 <15 Kidney failure *Relative to young adult level. In the absence of evidence of kidney damage, neither GFR category G1 nor G2 fulfill the criteria for CKD. The CKD-EPI equation is validated in individuals 18 years of age and older. Currently the best equation for estimating glomerular filtration rate (GFR) from serum creatinine in children is the Bedside Gupta equation. It is less accurate in patients with extremes of muscle mass, restriction of dietary protein, ingestion of creatine, extra-renal metabolism of creatinine, or treatment with medications that affect renal tubular creatinine secretion. Calcium 02/19/2020 9.9 8.4 - 10.4 mg/dL Final WBC 02/19/2020 9.5 3.6 - 10.7 10*3/uL Final RBC 02/19/2020 4.48 3.80 - 5.20 10*6/uL Final Hemoglobin 02/19/2020 10.7* 11.7 - 16.0 g/dL Final Hematocrit 02/19/2020 33.9* 35.0 - 47.0 % Final MCV 02/19/2020 75.5* 79.0 - 98.0 fL Final MCH 02/19/2020 23.8* 26.0 - 34.0 pg Final MCHC 02/19/2020 31.6* 32.0 - 36.0 % Final RDW 02/19/2020 15.6* 11.5 - 14.5 % Final Platelets 02/19/2020 368 140 - 440 10*3/uL Final MPV 02/19/2020 7.2* 7.4 - 10.4 fL Final ABO Grouping 02/19/2020 A NA Final Rh Type 02/19/2020 POS NA Final Antibody Screen 02/19/2020 NEG NA Final Glucose, Ur 02/19/2020 Normal Normal (<70) mg/dL Final . Total Protein, Urine 02/19/2020 Negative Negative mg/dL Final . Bilirubin Urine 02/19/2020 Negative Negative mg/dL Final . Urobilinogen, Urine 02/19/2020 Normal Normal (0-1) mg/dL Final . pH, Urine 02/19/2020 6.0 5.0 - 8.0 NA Final . Specific [place], Urine 02/19/2020 1.012 1.005 - 1.030 NA Final . Occult Blood,Urine 02/19/2020 Negative Negative mg/dL Final . Ketones, Urine 02/19/2020 Negative Negative mg/dL Final . Nitrite, Urine 02/19/2020 Negative Negative NA Final . LEUKOCYTES, UA 02/19/2020 Negative Negative Reyes/uL Final . Appearance 02/19/2020 Clear Clear NA Final . Color, Urine 02/19/2020 Colorless Lt. Yellow NA Final . Urine Culture, Routine 02/19/2020 Normal urogenital danna present. Final C. trachomatis DNA 02/19/2020 Final Value:NOT Detected Chlamydia trachomatis Nucleic Acid NOT Detected by DNA Amplification using the [facility] System. Culture is the only recommended test in medical-legal cases such as suspected child abuse or molestation. NEISSERIA GONORRHOEAE, DNA 02/19/2020 Final Value:NOT Detected Neisseria gonorrhoeae Nucleic Acid NOT Detected by DNA Amplification using the [facility] System. Culture is the only recommended test in medical-legal cases such as suspected child abuse or molestation. Bacterial Vaginosis Markers 02/19/2020 Negative Final [place] SPP. 02/19/2020 Negative Final [place] GALABRATA 02/19/2020 Negative Final [place] Krusei 02/19/2020 Negative Final Trichomonas vaginalis 02/19/2020 Final Value:Negative Expected Value: Negative Method: Real Time PCR by [employer] Add On 02/19/2020 Accepted NA Final Specimen available & acceptable for analysis. HCG Urine 02/19/2020 Negative Negative NA Final Comment: is the most common reason for HCG in urine, although choriocarcinoma, hydatidiform mole, and certain nontropho- blastic malignancies also result in detectable urinary HCG levels. Sensitivity = 20mIU/mL. WBC 02/20/2020 9.4 3.6 - 10.7 10*3/uL Final RBC 02/20/2020 4.06 3.80 - 5.20 10*6/uL Final Hemoglobin 02/20/2020 9.9* 11.7 - 16.0 g/dL Final Hematocrit 02/20/2020 30.9* 35.0 - 47.0 % Final MCV 02/20/2020 76.1* 79.0 - 98.0 fL Final MCH 02/20/2020 24.4* 26.0 - 34.0 pg Final MCHC 02/20/2020 32.1 32.0 - 36.0 % Final RDW 02/20/2020 15.7* 11.5 - 14.5 % Final Platelets 02/20/2020 344 140 - 440 10*3/uL Final MPV 02/20/2020 7.5 7.4 - 10.4 fL Final Sodium 02/20/2020 137 135 - 145 mmol/L Final Potassium 02/20/2020 3.8 3.5 - 5.1 mmol/L Final Chloride 02/20/2020 104 98 - 107 mmol/L Final CO2 02/20/2020 21* 22 - 30 mmol/L Final Anion Gap 02/20/2020 11 NA Final Glucose 02/20/2020 89 70 - 100 mg/dL Final BUN 02/20/2020 8 7 - 20 mg/dL Final CREATININE 02/20/2020 0.64 0.52 - 1.25 mg/dL Final eGFR 02/20/2020 >90.0 >60 mL/min Final EGFR IF NonAfrican Japanese 02/20/2020 >90.0 >60 mL/min Final Comment: KDIGO guidelines provide the following GFR categories: Stage GFR(ml/min/1.73 m2) Terms G1 >=90 Normal or high G2 60-89 Mildly decreased* G3a 45-59 Mildly to moderately decreased G3b 30-44 Moderately to severely decreased G4 15-29 Severely decreased G5 <15 Kidney failure *Relative to young adult level. In the absence of evidence of kidney damage, neither GFR category G1 nor G2 fulfill the criteria for CKD. The CKD-EPI equation is validated in individuals 18 years of age and older. Currently the best equation for estimating glomerular filtration rate (GFR) from serum creatinine in children is the Bedside Gupta equation. It is less accurate in patients with extremes of muscle mass, restriction of dietary protein, ingestion of creatine, extra-renal metabolism of creatinine, or treatment with medications that affect renal tubular creatinine secretion. Calcium 02/20/2020 9.2 8.4 - 10.4 mg/dL Final Albumin,Serum 02/20/2020 4.4 3.5 - 5.0 g/dL Final Total Protein 02/20/2020 7.6 6.3 - 8.2 g/dL Final Total Bilirubin 02/20/2020 0.4 0.2 - 1.3 mg/dL Final Alkaline Phosphatase 02/20/2020 83 38 - 126 U/L Final ALT 02/20/2020 18 0 - 34 U/L Final Comment: The ALT test is performed by an updated assay method. Please note that the reference intervals have been changed and are now sex specific. AST 02/20/2020 30 15 - 46 U/L Final Protime 02/20/2020 10.9 9.0 - 12.0 s Final . INR 02/20/2020 1.0 0.9 - 1.1 NA Final Comment: Recommended Anticoagulant Therapy: SEE BELOW ----- INR of 2.0 - 3.0 : - Prophylaxis of Venous Thrombosis (high-risk surgery) - Treatment of Venous Thrombosis - Treatment of Pulmonary Embolism (Includes tissue heart valves, Acute Myocardial Infarction to prevent systemic embolism, Valvular Heart Disease, and Atrial Fibrillation) ----- INR of 2.5 - 3.5 : - Mechanical Prosthetic Valves (high risk) - If oral anticoagulant therapy is used to prevent Myocardial Infarction aPTT 02/20/2020 23.4 20.0 - 30.5 s Final Comment: NOTE: The therapeutic time for Heparin anticoagulation, based on Xa activity inhibition, is an APTT of 46-80 seconds. ] Assessment/Plan: Socorro Gonsales 24 y.o. female No obstetric history on file., HD 3 for chronic pelvic pain. - vitals stable -WBC on 02/19 was 9.4 - Pt continues to complain of 10/10 pain despite being given Tylenol, Toradol 30 mg, Oxycodone 10 mg and morphine 2 mg - Labs/Imaging: repeat CT scan from 02/19 shows no acute process - Abx:not indicated - Diet:General - ADAT - Plan pending further discussion with attending Lars Dooley DO 02/21/2020, 5:54 AM Patient seen and examined, agree with above. Patient states pain is somewhat improved on her current pain regimen (Toradol, Oxycodone, PRN Morphine). CT Scan reviewed, reveals likely right ovarian follicle or cyst rupture. Small amount of bursal fluid in vicinity of right psoas, possibly bursitis. Examination unchanged today, remains distractible. Non-acute abdomen. Will discuss with insurance commissioner attending, further plan pending discussion. Associated attestation - Dustin Andrews MD - 02/21/2020 2:38 PM EDT I reviewed and agree with the care provided by the resident including the patient's medical history, the resident's findings in the physical exam, patient's diagnosis and treatment plan. Pt has been scheduled for outpatient laparoscopy with hysteroscopy, D&C, poss IUD insertion with Dr. Pablo and Gen Surg backup on Thursday 02/22 at 10:30am. She is being discharged to home today onthe same pain medication we have been using here in the hospital to carry her through Wednesday am. She will call the office or return to ER with any acute needs. * Antoinette Matthew DO - 02/21/2020 3:31 AM EDT Paged by nurse for 10/10 pain. Upon entering room, patient was using restroom, ambulating without difficulty. She states her pain is not improved with her scheduled oxycodone and would like whateverI got in the ED (dilaudid). Exam remains unchanged from prior, she states her pain is the same pain she has been having throughout this admission, just not getting better. Will continue current regimen. * Tali Sneed MD - 02/20/2020 9:37 PM EDT Patient seen and examined this evening following CT scan. CT scan showed no acute process, however,patient continues to report 10/10 pain. She states she can't eat and can't sleep due to the pain. Pain is not improved at all with tylenol, toradol, or oxycodone. Most significant in RLQ but reports pain is diffuse and worsening since admission. Vital signs reviewed and wnl. Abdominal pain is unchanged from yesterday, diffusely tender to palpation with voluntary guarding. Discussed with Dr. Mejía, will take to the OR tonight for diagnostic laparoscopy and hysteroscopyD&C due to persistent, severe, pelvic pain not response to pain medication. Updated general surgery, requested to have surgeon on standby. Made NPO with IVF, patient last ate at 1800. Added onto the OR schedule at 11:30pm. Patient consented for surgery. Agreeable to blood products if needed. Understands the risks of bleeding, infection, damage to surrounding structures. Understands the possibility of converting to an open procedure. SHe understands the risks and agrees to proceed. * Cortes Edwards DO - 02/20/2020 3:09 PM EDT PM Rounding Note: Called to patient bedside to evaluate for increased abdominal pain. Patient states her pain is now 10/10 located in the RLQ, sharp and stabbing. States the pain was intense enough to cause her to vomit. Denies fever, chills, shortness of breath, chest pain. Vitals: 02/19/20 2317 02/20/20 0305 02/20/20 0731 02/20/20 1037 BP: 137/84 103/63 105/64 95/63 Pulse: 124 85 89 90 Resp: Temp: 98.3 F (36.8 C) 98.2 F (36.8 C) 97.9 F (36.6 C) 97.5 F (36.4 C) TempSrc: Temporal Temporal Temporal Temporal SpO2: 100% 98% 100% 97% Weight: Height: Patient awake, alert, conversant. Sitting in chair, holding lower abdomen. Tearful, appears in pain. Abdomen soft, ND. Moderately tender to palpation in RLQ. Voluntary guarding present, but remains distractible. No peritoneal signs present. Non-tympanic. +BS x4 quadrants. PO Narcotics previously decreased to 5mg Oxycodone [id number]. Patient continues on scheduled Toradol.Patient states that this is not currently controlling her pain and is requesting additional medication at this time. States that the only medication that has helped thus far has been Dilaudid. Will discuss with private attending. Abdomen remains non-surgical at this time, though TTP has increased from prior examination. * Cortes Edwards DO - 02/20/2020 6:07 AM EDT TRAFFIC CONTROL OPERATOR Progress Note Date: 02/20/2020 Time: 6:07 AM Socorro Gonsales 24 y.o. female No obstetric history on file., HD#1 admitted for worsening chronic pelvic pain. Patient seen and examined. She complained of persistent lower abd pain, worse on the right. Pain issomewhat controlled on high doses of oxycodone. Patient is tolerating oral intake. She is urinating. She denies any vaginal bleeding. She is ambulating without difficulty. She has also been nauseated. She denies Fever/Chills, Chest Pain, SOB, Vomiting. She has been up all night and admits to being very anxious about possible surgery, but feels it will help. Vitals: Vitals: 02/19/20 1835 02/19/20199902/19/20 2317 02/20/20 0305 BP: 126/84 108/73 137/84 103/63 Pulse: 90 124 85 Resp: Temp: 98.3 F (36.8 C) 98.2 F (36.8 C) TempSrc: Temporal Temporal SpO2: 98% 100% 98% Weight: Height: Intake/Output: Last Shift: @[id number]@ Current Shift: I/O this shift: In: 722.9 [I.V.:722.9] Out: 375 [Urine:375] Physical Exam: Gen: NAD, alert and cooperative HEENT: Normocephalic, atraumatic, EOMI, MMM Resp: CTABL, no WRR Card: RRR, no murmur Abd: soft, NT/ND, no rebound, no guarding. Present BS Ext: No LE edema, no calf tenderness or swelling Medications: Current Facility-Administered Medications Medication Dose Route Frequency Provider Last Rate Last Dose sodium chloride flush 0.9 % injection 3 mL 3 mL Intravenous Q8H Seferino Agustin MD 3 mL at 02/19/20 1725 sertraline (ZOLOFT) tablet 50 mg 50 mg Oral Daily Tali Sneed MD sodium chloride flush 0.9 % injection 10 mL 10 mL Intravenous 2 times per day Tali Sneed MD10 mL at 02/19/20 2354 sodium chloride flush 0.9 % injection 10 mL 10 mL Intravenous PRN Tali Sneed MD docusate sodium (COLACE) capsule 100 mg 100 mg Oral BID PRN Tali Sneed MD promethazine (PHENERGAN) tablet 12.5 mg 12.5 mg Oral Q6H PRN Tali Sneed MD 12.5 mg at 02/20/20 0538 acetaminophen (TYLENOL) tablet 1,000 mg 1,000 mg Oral Q8H Tali Sneed MD 1,000 mg at 02/19/20 2348 ketorolac (TORADOL) injection 30 mg 30 mg Intravenous Q6H Tali Sneed MD 30 mg at 02/20/20 0537 famotidine (PEPCID) injection 20 mg 20 mg Intravenous BID Tali Sneed MD 20 mg at 02/19/20 2348 oxyCODONE (ROXICODONE) immediate release tablet 5 mg 5 mg Oral Q4H PRN Tali Sneed MD Or oxyCODONE (ROXICODONE) immediate release tablet 10 mg 10 mg Oral Q4H PRN Tali Sneed MD 10 mg at 02/20/20 0420 lactated ringers infusion Intravenous Continuous Tali Sneed MD 125 mL/hr at 02/19/20 2355 Diagnostics: Us Pelvis Complete Non-ob Transabdominal And Transvaginal Result Date: 02/19/2020 Patient Name: SOCORRO GONSALES ---Ultrasound--- Exam Date/Time 02/19/2020 21:12:00 EDT Exam US Pelvis TA/TV Ordering Physician BLAIR MOSER Accession Number [id number] CPT4 Codes 80412 (US Pelvis TA/TV), 79802 (US Transvaginal) Reason For Exam pelvic pa in Report ULTRASOUND PELVIS: CLINICAL INDICATION: pelvic pain LMP: 01/15/2020 COMPARISON: none TECHNIQUE: Transabdominal and transvaginal to optimally evaluate the ovaries and adnexal structures including color flow and spectral Doppler imaging FINDINGS: Uterus: Orientation: Retroverted Size: 8.8 x 6.7 x 5.1 cm Endometrium: 18 mm Mass: none Cervix: normal Right Ovary: Size: 3.8 x 2.9 x 3.4 cm Mass:none Cyst: 2.0 cm dominant follicle seen Color flow/Doppler waveform: normal Left Ovary: Size: 2.6 x 2.3 x 1.8 cm Mass: none Cyst: none Color flow/Doppler waveform: normal Cul-de-sac: Mild free fluidis seen within the pelvis. IMPRESSION: 1. Abnormal thickening of endometrial stripe complex, particularly in the fundus. This may be due to endometrial hypertrophy or polyp. Neoplasm cannot be excluded. 2. Mild free fluid within the pelvis, which may be physiologic. Report Dictated on --- Final --- Dictated: 02/19/2020 9:54 pm Dictating Physician: MD DE PAZ JAMES Signed Date and Time: 02/19/2020 10:05 pm Signed by: MD DE PAZ JAMES Transcribed Date and Time: 02/19/2020 10:04 Labs: Admission on 02/19/2020 Component Date Value Ref Range Status Sodium 02/19/2020 137 135 - 145 mmol/L Final Potassium 02/19/2020 4.1 3.5 - 5.1 mmol/L Final Chloride 02/19/2020 105 98 - 107 mmol/L Final CO2 02/19/2020 22 22 - 30 mmol/L Final Anion Gap 02/19/2020 10 NA Final Glucose 02/19/2020 94 70 - 100 mg/dL Final BUN 02/19/2020 10 7 - 20 mg/dL Final CREATININE 02/19/2020 0.62 0.52 - 1.25 mg/dL Final eGFR 02/19/2020 >90.0 >60 mL/min Final EGFR IF NonAfrican Japanese 02/19/2020 >90.0 >60 mL/min Final Comment: KDIGO guidelines provide the following GFR categories: Stage GFR(ml/min/1.73 m2) Terms G1 >=90 Normal or high G2 60-89 Mildly decreased* G3a 45-59 Mildly to moderately decreased G3b 30-44 Moderately to severely decreased G4 15-29 Severely decreased G5 <15 Kidney failure *Relative to young adult level. In the absence of evidence of kidney damage, neither GFR category G1 nor G2 fulfill the criteria for CKD. The CKD-EPI equation is validated in individuals 18 years of age and older. Currently the best equation for estimating glomerular filtration rate (GFR) from serum creatinine in children is the Bedside Gupta equation. It is less accurate in patients with extremes of muscle mass, restriction of dietary protein, ingestion of creatine, extra-renal metabolism of creatinine, or treatment with medications that affect renal tubular creatinine secretion. Calcium 02/19/2020 9.9 8.4 - 10.4 mg/dL Final WBC 02/19/2020 9.5 3.6 - 10.7 10*3/uL Final RBC 02/19/2020 4.48 3.80 - 5.20 10*6/uL Final Hemoglobin 02/19/2020 10.7* 11.7 - 16.0 g/dL Final Hematocrit 02/19/2020 33.9* 35.0 - 47.0 % Final MCV 02/19/2020 75.5* 79.0 - 98.0 fL Final MCH 02/19/2020 23.8* 26.0 - 34.0 pg Final MCHC 02/19/2020 31.6* 32.0 - 36.0 % Final RDW 02/19/2020 15.6* 11.5 - 14.5 % Final Platelets 02/19/2020 368 140 - 440 10*3/uL Final MPV 02/19/2020 7.2* 7.4 - 10.4 fL Final ABO Grouping 02/19/2020 A NA Final Rh Type 02/19/2020 POS NA Final Antibody Screen 02/19/2020 NEG NA Final Glucose, Ur 02/19/2020 Normal Normal (<70) mg/dL Final . Total Protein, Urine 02/19/2020 Negative Negative mg/dL Final . Bilirubin Urine 02/19/2020 Negative Negative mg/dL Final . Urobilinogen, Urine 02/19/2020 Normal Normal (0-1) mg/dL Final . pH, Urine 02/19/2020 6.0 5.0 - 8.0 NA Final . Specific [place], Urine 02/19/2020 1.012 1.005 - 1.030 NA Final . Occult Blood,Urine 02/19/2020 Negative Negative mg/dL Final . Ketones, Urine 02/19/2020 Negative Negative mg/dL Final . Nitrite, Urine 02/19/2020 Negative Negative NA Final . LEUKOCYTES, UA 02/19/2020 Negative Negative Reyes/uL Final . Appearance 02/19/2020 Clear Clear NA Final . Color, Urine 02/19/2020 Colorless Lt. Yellow NA Final . C. trachomatis DNA 02/19/2020 Final Value:NOT Detected Chlamydia trachomatis Nucleic Acid NOT Detected by DNA Amplification using the Vhall System. Culture is the only recommended test in medical-legal cases such as suspected child abuse or molestation. NEISSERIA GONORRHOEAE, DNA 02/19/2020 Final Value:NOT Detected Neisseria gonorrhoeae Nucleic Acid NOT Detected by DNA Amplification using the CepStorelift[employer] System. Culture is the only recommended test in medical-legal cases such as suspected child abuse or molestation. Bacterial Vaginosis Markers 02/19/2020 Negative Final [place] SPP. 02/19/2020 Negative Final [place] GALABRATA 02/19/2020 Negative Final [place] Krusei 02/19/2020 Negative Final Trichomonas vaginalis 02/19/2020 Final Value:Negative Expected Value: Negative Method: Real Time PCR by IMAGINATE - [employer] Add On 02/19/2020 Accepted NA Final Specimen available & acceptable for analysis. HCG Urine 02/19/2020 Negative Negative NA Final Comment: is the most common reason for HCG in urine, although choriocarcinoma, hydatidiform mole, and certain nontropho- blastic malignancies also result in detectable urinary HCG levels. Sensitivity = 20mIU/mL. WBC 02/20/2020 9.4 3.6 - 10.7 10*3/uL Final RBC 02/20/2020 4.06 3.80 - 5.20 10*6/uL Final Hemoglobin 02/20/2020 9.9* 11.7 - 16.0 g/dL Final Hematocrit 02/20/2020 30.9* 35.0 - 47.0 % Final MCV 02/20/2020 76.1* 79.0 - 98.0 fL Final MCH 02/20/2020 24.4* 26.0 - 34.0 pg Final MCHC 02/20/2020 32.1 32.0 - 36.0 % Final RDW 02/20/2020 15.7* 11.5 - 14.5 % Final Platelets 02/20/2020 344 140 - 440 10*3/uL Final MPV 02/20/2020 7.5 7.4 - 10.4 fL Final Sodium 02/20/2020 137 135 - 145 mmol/L Final Potassium 02/20/2020 3.8 3.5 - 5.1 mmol/L Final Chloride 02/20/2020 104 98 - 107 mmol/L Final CO2 02/20/2020 21* 22 - 30 mmol/L Final Anion Gap 02/20/2020 11 NA Final Glucose 02/20/2020 89 70 - 100 mg/dL Final BUN 02/20/2020 8 7 - 20 mg/dL Final CREATININE 02/20/2020 0.64 0.52 - 1.25 mg/dL Final eGFR 02/20/2020 >90.0 >60 mL/min Final EGFR IF NonAfrican Japanese 02/20/2020 >90.0 >60 mL/min Final Comment: KDIGO guidelines provide the following GFR categories: Stage GFR(ml/min/1.73 m2) Terms G1 >=90 Normal or high G2 60-89 Mildly decreased* G3a 45-59 Mildly to moderately decreased G3b 30-44 Moderately to severely decreased G4 15-29 Severely decreased G5 <15 Kidney failure *Relative to young adult level. In the absence of evidence of kidney damage, neither GFR category G1 nor G2 fulfill the criteria for CKD. The CKD-EPI equation is validated in individuals 18 years of age and older. Currently the best equation for estimating glomerular filtration rate (GFR) from serum creatinine in children is the Bedside Gupta equation. It is less accurate in patients with extremes of muscle mass, restriction of dietary protein, ingestion of creatine, extra-renal metabolism of creatinine, or treatment with medications that affect renal tubular creatinine secretion. Calcium 02/20/2020 9.2 8.4 - 10.4 mg/dL Final Albumin,Serum 02/20/2020 4.4 3.5 - 5.0 g/dL Final Total Protein 02/20/2020 7.6 6.3 - 8.2 g/dL Final Total Bilirubin 02/20/2020 0.4 0.2 - 1.3 mg/dL Final Alkaline Phosphatase 02/20/2020 83 38 - 126 U/L Final ALT 02/20/2020 18 0 - 34 U/L Final Comment: The ALT test is performed by an updated assay method. Please note that the reference intervals have been changed and are now sex specific. AST 02/20/2020 30 15 - 46 U/L Final Protime 02/20/2020 10.9 9.0 - 12.0 s Final . INR 02/20/2020 1.0 0.9 - 1.1 NA Final Comment: Recommended Anticoagulant Therapy: SEE BELOW ----- INR of 2.0 - 3.0 : - Prophylaxis of Venous Thrombosis (high-risk surgery) - Treatment of Venous Thrombosis - Treatment of Pulmonary Embolism (Includes tissue heart valves, Acute Myocardial Infarction to prevent systemic embolism, Valvular Heart Disease, and Atrial Fibrillation) ----- INR of 2.5 - 3.5 : - Mechanical Prosthetic Valves (high risk) - If oral anticoagulant therapy is used to prevent Myocardial Infarction aPTT 02/20/2020 23.4 20.0 - 30.5 s Final Comment: NOTE: The therapeutic time for Heparin anticoagulation, based on Xa activity inhibition, is an APTT of 46-80 seconds. ] Assessment/Plan: Socorro Gonsales 24 y.o. female No obstetric history on file., HD#1 for chronic pelvic pain. 1. Chronic Pelvic Pain - Doing well, vitals stable - WBC 9.4, Hgb 9.9, no signs of infectious process -US showed thickening of endometrial stripe, but no acute process -Pain has continued to wax and wane overnight, requiring high doses of oxycodone - Will keep patient NPO -general surgery evaluated and does not feel there is any need for acute surgical intervention, however they are happy to be on standby to assist with diagnostic laparoscopy -Based on patient's clinical picture of debilitating pain without any signs of infection or other clear cause, patient's pain is consistent with endometriosis Lars Dooley DO 02/20/2020, 6:07 AM Patient seen and examined. Patient admitted for chronic pelvic pain, acutely worsened over the pastweek. Patient is currently undergoing evaluation in office for diagnostic laparoscopy, hysteroscopy, D&C with IUD placement for dysmenorrhea and menorrhagia. Patient states pain continues, despite treatment with PO oxy and breakthrough Morphine overnight. Patient states she has a history of endometriosis. Will discuss further plan with attending. Given recent surgical history (Ex Lap in 2019 with extensive lysis of adhesions for duodenal cyst and cholecystectomy), will discuss with general surgery if plan for OR. Patient inquiring regarding endometrial ablation. Counseled that she will need to discuss further with attending. Discussed with Dr. Guerrero. Patient will require extensive planning prior to proceeding to OR, if she does, in fact, require surgery. Will optimize pain control at this time and plan for possible discharge this evening. Will start on Gabapentin 200mg TID and wean from PO narcotics. Will start Vistaril for anxiety component (patient currently on Zoloft and Risperdal). documented in this encounter* Tyra Yang RN - 02/23/2020 3:30 PM EDT Discharge information given to the patient. Patient and family verbalized understanding of information. All questions were answered before discharge. Patient ambulated, denies dizziness or nausea. Tolerating PO fluids and crackers. Vital signs are stable. Patient has changed and is being discharged home in a wheelchair with valuables. Pt. Asking for something stronger for pain at home. Dr. Pablo paged and notified; no further orders at this time; pt notified.. * Tyra Yang RN - 02/23/2020 12:20 PM EDT Pt. Calmer now; states pain is much better. * Tyra Yang RN - 02/23/2020 12:10 PM EDT Pt. A bit calmer but still in pain; order received for Dilaudid. * Tyra Yang RN - 02/23/2020 12:00 PM EDT Pt. Still moaning; very anxious; order received fro Ativan. * Tyra Yang RN - 02/23/2020 11:35 AM EDT Pt awkening; hyperventilating, moaning in pain, oriented and follows commands; will medicate. documented in this encounter Hospital Course * Dustin Andrews MD - 02/19/2020 7:32 PM EDT 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 Patient Name: Socorro Gonsales Patient : 1995 Primary Care Physician: Joseph Johnson DO Admit Date: 02/19/2020 Attending Provider: Seferino Agustin MD Principal Diagnosis: acute on chronic pelvic pain Other Diagnosis: pelvic pain Patient Active Problem List Diagnosis Allergic rhinitis Asthma PFO (patent foramen ovale) YVONNE (generalized anxiety disorder) Syncope and collapse Tobacco abuse Precordial pain Duodenal mass Choledochal cyst Abnormal findings on imaging of biliary tract LUQ abdominal pain Non-intractable vomiting Chronic constipation Abnormal barium enema Anemia Right upper quadrant abdominal pain Surgical Operations & Procedures: None Consultations: General surgery Pertinent Findings & Procedures: Socorro Gonsales is a 24 y.o. female , admitted for acute on chronic pelvic pain. She has had an extensive benign workup since this pain started in August. Labs in ED unremarkable, vital signs have been stable. TVUS completed and was unremarkable. General surgery consulted due to recent history of exploratory laparotomy with duodenal cyst and cholecystectomy. Non-surgical abdomen on initial presentation. Admitted for pain control with tylenol, toradol and oxycodone PRN with possible diagnostic lap in OR 02/19; this procedure was held secondary to normal vitals and imaging and benign exam. Instead, pt is scheduled for outpatient diagnostic laparoscopy, hysteroscopy, poss IUD insertionon 02/[address] Pablo and Gen Surg on backup. Hospital course normal, discharged home 02/21/20. Follow up for surgery on 02/22. Discharge instructions reviewed and questions answered. Course of patient: normal; pain control with pain medications Discharge to: Home Wound Care: N/A Recommendations on Discharge: Medications: Socorro Gonsales Home Medication Instructions PAN:[id number] Printed on:02/21/20 5865 Medication Information albuterol sulfate HFA 108 (90 Base) MCG/ACT inhaler Inhale 2 puffs into the lungs every 6 hours as needed ibuprofen (ADVIL;MOTRIN) 600 MG tablet Take 1 tablet by mouth 3 times daily as needed for Pain lactulose (CHRONULAC) 10 GM/15ML solution 30 ml daily linaclotide (LINZESS) 145 MCG capsule Take 1 capsule by mouth every morning (before breakfast) methocarbamol (ROBAXIN) 750 MG tablet Take 750 mg by mouth as needed ondansetron (ZOFRAN ODT) 4 MG disintegrating tablet Take 1 tablet by mouth every 8 hours as needed for Nausea oxyCODONE (ROXICODONE) 5 MG immediate release tablet Take 1 tablet by mouth every 6 hours as needed (moderate to severe pain) for up to 2 days. pantoprazole (PROTONIX) 40 MG tablet Take 1 tablet by mouth 2 times daily (before meals) risperiDONE (RISPERDAL) 0.25 MG tablet Take 0.5 mg by mouth nightly senna-docusate (PERICOLACE) 8.6-50 MG per tablet Take 2 tablets by mouth daily sertraline (ZOLOFT) 50 MG tablet Take 50 mg by mouth daily Activity: activity as tolerated Diet: regular diet Follow up: for surgery on 02/22 Condition on discharge: good and stable Discharge Date: 02/21/20 Comments: Home care, Follow-up care, restrictions reviewed. Antoinette Matthew DO 02/19/2020, 7:33 PM documented in this encounter Chief Complaint and Reason for Visit Chief Complaint abd pain Additional Source Comments INFORMATION SOURCE (unrecogn ized section and content) DATE CREATED AUTHOR 01/28/2018 [facility] DATE CREATED AUTHOR AUTHOR'S ORGANIZ ATION 05/21/2020 [facility] DATE CREATED AUTHOR AUTHOR'S ORGANIZ ATION 06/01/2020 [facility] ([place]) DATE CREATED AUTHOR AUTHOR'S ORGANIZ ATION 02/23/2021 Sys tem DATE CREATED AUTHOR AUTHOR'S ORGANIZ ATION 02/26/[address] [facility] DATE CREATED AUTHOR AUTHOR'S ORGANIZ ATION 05/12/2022 [facility] DATE CREATED AUTHOR AUTHOR'S ORGANIZ ATION 02/27/2024 [facility] DATE CREATED AUTHOR AUTHOR'S ORGANIZ ATION 10/24/2024 [facility] DATE CREATED AUTHOR AUTHOR'S ORGANIZ ATION 01/17/2025 [facility] Reason for Visit (unrecogniz ed section and content) Reason Comments Wound Check Reason Comments Pelvic Pain Pt was sent here by OB for possible surgery due to chronic pelvic pain. Reason Comments Post-op Problem Reason Comments Other started a new medica tion and started to feel like her heart was pounding and sort of sob,no diaphorese abur sl nausea,no chest pain Reason Comments Pelvic Pain RLQ pain, passed gol fball sized blood cot without any vaginal bleeding Reason Comments Abdominal Pain Other heavy menses Reason Comments Flank Pain LEFT SIDED Reason Comments Pelvic Pain Reason Comments Constipation abdominal pain, vomi ting Reason Comments Post-op Problem Vaginal Bleeding Reason Onset Date Comments Abdominal Pain 12/03/2020 Reason Comments Abdominal Pain Reason Comments Post-op Problem pt come in with c/o pain on and near abd incision site. Pt states that she ahs been having shooting burning pain on her incision site and a sharp stabbing pain on the R side of her incision. Pt states that she has been nauseous and vomiting for 2 days and has been unable to keep anything to eat or drink down. Pt states that she called her physician and they told her to come to the ED. Nausea Emesis Reason Comments Abdominal Pain Emesis Nausea Reason Comments Abdominal Pain released from [facility]ite with pancreatitis now is nauseated and in pain in upper abdomen Reason Comments Abdominal Pain Pt had hysterectomy and adhesion removal yesterday and was unable to obtain any home going medications for pain upon leaving hospital. Pt got pain medications this morning but was unable to get pain back under control and one incision is leaking fluid. 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 Bloody Nipple Discharge, bilateral breast referral from Breast Center Reason Comments Abdominal Pain Lower abdomen Specialty Diagnoses / Procedures Referred By Contac t Referred To Contact Radiology Diagnoses Bilateral nipple discharge Procedures Bilateral breast MR with and without contrast Lenin De Los Santos MD [address] [place] [address] Referral ID Status Reason Start Date Expiration Date Visits Re quested Visits Authorized [id number] Closed 04/20/2023 10/17/2023 1 1 Reason Comments Follow-up F/U Breast MRI Reason Comments Follow-up F/U abdominal pain 2 week follow up Reason Comments Radiology US Specialty Diagnoses / Procedures Referred By Contac t Referred To Contact [facility] Diagnoses Mass of upper outer quadrant of left breast Procedures US BREAST LTD LEFT US BREAST UNI REAL TIME WITH IMAGE LIMITED Nicolasa Tan APRN.RYAN [address] [place] [address] [facility] [address] [place] [address] Referral ID Status Reason Start Date Expiration Date V isits Requested Visits Authorized [id number] Closed Auto-Generate d Referral 01/26/2023 02/24/2024 1 [address], bodyaches, [place], c hest tightness x2 days Reason Comments Cough Sore throat, chest c ongestion x 1 week Reason Comments Follow-up F/U Abdominal Pain Reason Comments Cough Congestion, nausea, vomiting, sore throat, [place] x days Reason Comments Abdominal Pain Reason Comments New Patient Abdominal Pain Reason Onset Date Comments Record Request 10/06/2023 Reason Comments Nasal Congestion drainage, cough, fac ial pressure, chills and sore throat x 5 days Reason Comments Sore Throat RT ear pain, nasal c ongestion, fever, body aches, chills x 5 days Reason Comments Nutrition Counseling Gastroparesis Specialty Diagnoses / Procedures Referred By Rosalba crocker Referred To Contact Nutrition / Internal Medicine Diagnoses Gastroparesis Procedures OR OFFICE/OUTPATIENT NEW HIGH MDM 60 MINUTES Scooter Gunderson PA-C [address] [place] [address] [facility] [address] [place] [address] Referral ID Status Reason Start Date Expiration Date V isits Requested Visits Authorized [id number] Closed Specialty Services Required 09/14/2023 09/13/2024 1 1 Reason Onset Date Comments Rectal Bleeding 01/03/2024 Reason Onset Date Comments Other 02/17/2024 MRI request Reason Comments Follow-up New to provider,[facility] ER Follow-up For abdominal pain, mass was found Specialty Diagnoses / Procedures Referred By Rosalba crocker Referred To Contact Radiology Diagnoses Nausea and vomiting, unspecified vomiting type Procedures NM gastric emptying solid Scooter Gunderson PA-C [address] [place] [address] Referral ID Status Reason Start Date Expiration Date V isits Requested Visits Authorized [id number] Authorized 12/03/2023 12/02/2024 3 3 Reason Comments Follow-up Discuss GES results. Reason Comments Nasal Congestion ST, [place], bodyaches, r unny nose x2 days Reason Comments Ear Pain Bilateral ear pain, ST, nasal congestion x 1 week Reason Comments Appointment Reason Comments Follow-up Lump on chest LT augustine e, last seen 2022 Reason Comments Nasal Congestion chest congestion, co ugh, bodyaches, headache and fever x 1 day Reason Onset Date Comments Abdominal Pain 02/16/2024 Constipation 02/16/2024 Bloated 02/16/2024 Reason Comments Ear Pain Right ear and throat pain x 1 day Reason Onset Date Comments Appointment 04/20/2024 Reason Comments Leg Problem PT was concerned bec ause her legs were shaking During PT Flu Vaccine Patient has declined the flu vaccine Reason Comments PT Discharge Pt has not been seen in > 30 days and has not called to [facility]. Will discharge at this time. Reason Onset Date Comments Rectal Bleeding 09/15/2022 Reason Comments Rectal Bleeding Reason Onset Date Comments Results 09/16/2022 Reason Comments Suspicious Skin Lesion Mole on left side of neck red and painful whole neck is sore Reason Onset Date Comments Rectal Bleeding 08/05/2023 Reason Comments Ear Pain R ear pain, headache , sinus pressure and pain, sore throat on R side, x 5 days Reason Comments Nasal Congestion drainage, right ear pain, cough and sore throat x 10 days Reason Comments Cough Chest congestion, so re throat, body aches x 1.5 weeks Reason Comments Flu Like Symptoms Reason Comments Cough Chest congestion, fe qasim, skin burning x2 days Reason Comments Flu Symptoms Generalized Body Aches Nasal Congestion Reason Onset Date Comments Appointment Request 11/09/2024 Reason Comments Breast Problem Est Pt. Left breast pain. [facility] Ref[facility] Reason Comments Follow-up Reason Onset Date Comments Appointment 12/15/2024 Reason Comments Abdominal Pain Right Side both quad rants Ordered Prescriptions (unrec ognized section and content) Prescription Sig Dispensed Refills Start Date End Da te oxyCODONE-acetaminophen (PERCOCET) 5-325 MG per tabletIndications:Intra ctable abdominal pain Take 1 tablet by mouth every 8 hours as needed for Pain for up to 3 days. Intended supply: 3 days. Take lowest dose possible to manage pain 5 tablet 0 12/06/2020 12/09/2020 psyllium (METAMUCIL) 0.52 g capsule Take 1 capsule by mouth daily 30 capsule 0 12/06/2020 polyethylene glycol (GLYCOLAX) 17 g packet Take 17 g by mouth daily 527 g 1 12/07/2020 01/06/2021 Prescription Sig Dispensed Refills Start Date End Da te phenazopyridine (PYRIDIUM) 100 MG tablet Take 2 tablets by mouth 3 times daily as needed for Pain 15 tablet 0 12/28/2020 01/02/2021 ketorolac (TORADOL) 10 MG tablet Take 1 tablet by mouth daily as needed for Pain 5 tablet 0 12/28/2020 01/02/2021 Prescription Sig Dispensed Refills Start Date End Da te dicyclomine (BENTYL) 10 MG capsule Take 1 capsule by mouth 4 times daily for 10 days 40 capsule 1 02/17/2021 02/27/2021 Prescription Sig Dispensed Refills Start Date End Da te docusate sodium (COLACE) 100 MG capsule Take 1 capsule by mouth 2 times daily 60 capsule 0 03/27/2021 04/26/2021 oxyCODONE-acetaminophen (PERCOCET) 5-325 MG per tabletIndications:Right lower quadrant abdominal pain Take 1 tablet by mouth every 6 hours as needed for Pain for up to 5 days. Intended supply: 5 days. Take lowest dose possible to manage pain 20 tablet 0 03/27/2021 04/01/2021 Prescription Sig Dispensed Refills Start Date End Da te polyethylene glycol (GLYCOLAX) 17 GM/SCOOP powder Take 17 g by mouth daily 1530 g 1 05/06/2022 11/02/2022 ondansetron (ZOFRAN-ODT) 4 MG disintegrating tabletIndications:General ized abdominal pain Take 1 tablet by mouth 3 times daily as needed for Nausea or Vomiting 60 tablet 0 05/06/2022 Scheduled Active and Recently Administ ered Medications (unrecognized section and content) Medication Order 02/15/2021 02/16/2021 02/17/2021 0.9 % sodium chloride bolus (COMPLETED) 1,000 mL (14.3 mL/kg), Intravenous, at 1,000 mL/hr, Administer over 1 Hours, ONCE, On Wed02/17/21 at 0027, For 1 dose 0126 (New Bag - Prov ider: Razia Sampson RN)0312 (Stopped - Provider: Razia Sampson RN) dicyclomine (BENTYL) capsule 10 mg (COMPLETED) 10 mg, Oral, ONCE, On Wed02/17/21 at 0730, For 1 dose 0738 (Given - Provid er: Emilie Bermudez RN) HYDROmorphone (DILAUDID) injection 0.5 mg (COMPLETED) 0.5 mg, Intravenous, ONCE, On Wed02/17/21 at 0344, For 1 dose, If oral and IV narcotics ordered, use oral first and only use IV if oral is ineffective or cannot take oral. Do Not give oral and IV within 1 hour of each other unless specifically ordered. 0407 (Given - Provid er: Sarita Monk RN) morphine injection 4 mg (COMPLETED) 4 mg, Intravenous, ONCE, On Wed02/17/21 at 0027, For 1 dose, If oral and IV narcotics ordered, use oral first and only use IV if oral is ineffective or cannot take oral. Do Not give oral and IV within 1 hour of each other unless specifically ordered. 0126 (Given - Provid er: Razia Sampson RN) morphine injection 4 mg (COMPLETED) 4 mg, Intravenous, ONCE, On Wed02/17/21 at 0716, For 1 dose, If oral and IV narcotics ordered, use oral first and only use IV if oral is ineffective or cannot take oral. Do Not give oral and IV within 1 hour of each other unless specifically ordered. 0738 (Given - Provid er: Emilie Bermudez RN) ondansetron (ZOFRAN) injection 4 mg (COMPLETED) 4 mg, Intravenous, ONCE, On Wed02/17/21 at 0027, For 1 dose 0126 (Given - Provid er: Razia Sampson RN) oxyCODONE-acetaminophen (PERCOCET) 5-325 MG per tablet 1 tablet (COMPLETED) 1 tablet, Oral, ONCE, On Wed02/17/21 at 0305, For 1 dose, Maximum dose of acetaminophen is 4000 mg from all sources in 24 hours. 0311 (Given - Provid er: Razia Sampson RN) promethazine (PHENERGAN) injection 12.5 mg (COMPLETED) 12.5 mg, Intramuscular, ONCE, On Wed02/17/21 at 0359, For 1 dose, Recommended route is IM. For IV administration, dilute to 10ml with normal saline. Must be administered over at least 10 minutes. 0405 (Given - Provid er: Sarita Monk RN) sodium chloride flush 0.9 % injection 3 mL(Linked Group 1) 3 mL, Intravenous, EVERY 8 HOURS, First dose on Wed02/17/21 at 0027, Flush line with 3-5 mL 26 (Due)0827 (Due) 1627 (Due) PRN Medication Order 02/15/2021 02/16/2021 02/17/2021 iopamidol (ISOVUE-370) 76 % injection 75 mL (COMPLETED) 75 mL, Intravenous, IMG ONCE PRN, Other, Starting on Wed02/17/21 at 0148, For 1 dose 0213 (Given - Provid er: Janet Garcia) Linked Groups Order Group 1: Saline lock IV (COMPLETED) Routine, CONTINUOUS, Starting on Wed02/17/21 at 0030, Until Specified And sodium chloride flush 0.9 % injection 3 mLJump to med 3 mL, Intravenous, EVERY 8 HOURS, First dose on Wed02/17/21 at 0027
Flush line with 3-5 mL
Scheduled Medication Order 03/25/2021 03/26/2021 03/27/2021 acetaminophen (TYLENOL) tablet 1,000 mg (COMPLETED) 1,000 mg, Oral, ONCE, On Wed03/26/21 at 0615, For 1 dose, Maximum dose of acetaminophen is 4000 mg from all sources in 24 hours. Do not administer if patient has taken tylenol <4 hours earlier. Do not give if contraindicated ie. patient has active liver disease or cirrhosis., Pre-op (day of surgery) 06 (Given - Provider: Mary Grace Barker RN) acetaminophen (TYLENOL) tablet 1,000 mg 1,000 mg, Oral, EVERY 8 HOURS SCHEDULED (3 times per day), First dose (after last modification) on Wed03/26/21 at 2200, Maximum dose of acetaminophen is 4000 mg from all sources in 24 hours. 2032 (Given - Provider: Nik Danielson RN) 441 (Not Given - Provider: Nik Danielson RN - Reason: Order parameters not met - Comment: patient exceeds dose for 24 hour period)1400 (Due)2200 (Due) aprepitant (EMEND) capsule 40 mg (COMPLETED) 40 mg, Oral, ONCE, On Wed03/26/21 at 0615, For 1 dose, Pre-op (day of surgery) 06 (Given - Provider: Mary Grace Barker RN) budesonide (ENTOCORT EC) extended release capsule 6 mg 6 mg, Oral, DAILY, First dose on Wed03/27/21 at 0900, Do not crush or break. 0754 (Not Given - Provider: Carina Cornejo RN - Reason: Patient/family refused - Comment: not taking) ceFAZolin (ANCEF) 2000 mg in dextrose 4 % 100 mL IVPB (premix) (COMPLETED) 2,000 mg, Intravenous, [employer]IVER TO O.R., 1 dose, On Wed03/26/21 at 0615, Administer within 1 hour prior to incision. Recommend to repeat in 3-4 hours after initial dose if still intra-op., Pre-op (day of surgery) 0741 (Given by Other Clinician - Provider: Thania Duran RN - Comment: Given by FLUTE GRINDER in OR) celecoxib (CELEBREX) capsule 400 mg (COMPLETED) 400 mg, Oral, ONCE, On Wed03/26/21 at 0615, For 1 dose, Pre-op (day of surgery) 0613 (Given - Provider: Mary Grace Barker RN) dicyclomine (BENTYL) capsule 10 mg (CANCELED) 10 mg, Oral, 3 TIMES DAILY BEFORE MEALS, First dose on Wed03/26/21 at 1100 1027 (Given - Provider: Lana Vasquez RN) diphenhydrAMINE (BENADRYL) injection 25 mg (COMPLETED) 25 mg, Intravenous, ONCE, On Wed03/26/21 at 2130, For 1 dose 2233 (Given - Provider: Nik Danielson RN) enoxaparin (LOVENOX) injection 40 mg 40 mg, Subcutaneous, DAILY, First dose on [place] 03/27/21 at 0900 0753 (Given - Provid er: Carina Cornejo RN) famotidine (PEPCID) tablet 20 mg (COMPLETED) 20 mg, Oral, ONCE, On Wed03/26/21 at 0615, For 1 dose, Pre-op (day of surgery) 0613 (Given - Provider: Mary Grace Barker RN) ketorolac (TORADOL) injection 30 mg (COMPLETED) 30 mg, Intravenous, ONCE, On Wed03/26/21 at 1415, For 1 dose, Do not administer for more than 5 days. 1357 (Given - Provider: Lilian Ramirez RN) LORazepam (ATIVAN) injection 1 mg (COMPLETED) 1 mg, Intravenous, ONCE, On Wed03/26/21 at 1000, For 1 dose, PACU only 0943 (Given - Provider: Thania Duran RN) morphine sulfate (PF) injection 2 mg (COMPLETED) 2 mg, Intravenous, ONCE, On Hazel 03/27/21 at 1115, For 1 dose, If oral and IV narcotics ordered, use oral first and only use IV if oral is ineffective or cannot take oral. Do Not give oral and IV within 1 hour of each other unless specifically ordered. 1058 (Given - Provid er: Carina Cornejo, RN) pantoprazole (PROTONIX) tablet 40 mg 40 mg, Oral, DAILY BEFORE BREAKFAST, First dose on Hazel 03/27/21 at 0700, Do not crush or break. Substituted for Omeprazole (PRILOSEC). 0753 (Given - Provid er: Carina Cornejo, RN) polyethylene glycol (GLYCOLAX) packet 17 g 17 g, Oral, DAILY, First dose on Wed03/26/21 at 1415 1430 (Given - Provider: Lana Vasquez RN) 0756 (Given - Provider: Carina Cornejo, RN) sodium chloride flush 0.9 % injection 5-40 mL 5-40 mL, Intravenous, EVERY 12 HOURS SCHEDULED (2 times per day), First dose on Wed03/26/21 at 2100, For Line Patency: Peripheral IV = 5 mL; Midline or Central Line = 10 mL/lumen. If following IV push medication, administer flush at same rate as the IV push. Flush volume is determined by type of infusion therapy being given. For non-viscous solutions use: Peripheral IV = 5 mL Midline or Central Line = 10 mL/lumen For viscous solutions (i.e. blood components, parenteral nutrition, contrast media, or after obtaining blood sample) use: Peripheral IV = 10 mL Midline or Central Line = 20 mL/lumen 1927 (Not Given - Provider: Nik Danielson RN - Reason: IV Fluid Infusing) 0755 (Not Given - Provider: Carina Cornejo, RN - Reason: IV Fluid Infusing)2100 (Due) Continuous Medication Order 03/25/2021 03/26/2021 03/27/2021 lactated ringers infusion (CANCELED) Intravenous, at 50 mL/hr, CONTINUOUS, Starting on Wed03/26/21 at 0615, Upon admission to sameday - please start iv if patient does not have iv access. Use 500ml NS for patients on dialysis., Pre-op (day of surgery) 0616 (New Bag - Provider: Mary Grace Barker, RN) lactated ringers infusion Intravenous, at 75 mL/hr, CONTINUOUS, Starting on Wed03/26/21 at 1030, Post-op 1027 (New Bag - Provider: Lana Vasquez RN) PRN Medication Order 03/25/2021 03/26/2021 03/27/2021 0.9 % sodium chloride infusion 25 mL, Intravenous, at 100 mL/hr, PRN, If patient receiving piggyback infusions without ordered maintenance IV fluids or with frequent/long duration piggyback infusions, Starting on Wed03/26/21 at 1502, Administer at the same rate as the piggyback being infused. acetaminophen (TYLENOL) tablet 650 mg (CANCELED) 650 mg, Oral, EVERY 4 HOURS PRN, Pain Mild (1-3), Starting on Wed03/26/21 at 1013, Maximum dose of acetaminophen is 4000 mg from all sources in 24 hours. 1027 (Given - Provider: Lana Vasquez RN)1430 (Given - Provider: Lana Vasquez RN) albuterol sulfate HFA 108 (90 Base) MCG/ACT inhaler 2 puff 2 puff, Inhalation, EVERY 6 HOURS PRN, Wheezing, Starting on Wed03/26/21 at 1013 ALPRAZolam (NIRAVAM) dissolvable tablet 0.25 mg (CANCELED) 0.25 mg, Oral, PRN, Anxiety, Starting on Wed03/26/21 at 0555, Pre-op (day of surgery) 0614 (Given - Provider: Mary Grace Barker RN) HYDROmorphone (DILAUDID) injection 0.5 mg (CANCELED) 0.5 mg, Intravenous, EVERY 5 MIN PRN, Pain Severe (7-10), Starting on Wed03/26/21 at 0642, For 4 doses, Phase I - Secondary therapy to be used after initial therapy medication doses are ineffective (pain score does not decrease by more than 1 point). If secondary medications are utilized, do not return to initial therapy medications., PACU only 09 (Given - Provider: Thania Duran RN)927 (Given - Provider: Thania Duran RN) hyoscyamine (LEVSIN/SL) sublingual tablet 125 mcg 125 mcg, Sublingual, EVERY 4 HOURS PRN, Cramping, Starting on Wed03/26/21 at 1013 morphine sulfate (PF) injection 2 mg (CANCELED) 2 mg, Intravenous, EVERY 4 HOURS PRN, Pain Severe (7-10), Starting on Wed03/26/21 at 1013, If oral and IV narcotics ordered, use oral first and only use IV if oral is ineffective or cannot take oral. Do Not give oral and IV within 1 hour of each other unless specifically ordered. 1026 (Given - Provider: Lana Vasquez RN)1430 (Given - Provider: Lana Vasquez RN) morphine sulfate (PF) injection 4 mg (CANCELED) 4 mg, Intravenous, EVERY 2 HOURS PRN, Pain Severe (7-10), Starting on Wed03/26/21 at 1630, If oral and IV narcotics ordered, use oral first and only use IV if oral is ineffective or cannot take oral. Do Not give oral and IV within 1 hour of each other unless specifically ordered. 1622 (Given - Provider: Lana Vasquez RN)2022 (Given - Provider: Nik Danielson RN)2232 (Given - Provider: Nik Danielson RN) 0128 (Given - Provider: Nik Danielson RN)0445 (Given - Provider: Nik Danielson RN) ondansetron (ZOFRAN) injection 4 mg(Linked Group 1) 4 mg, Intravenous, EVERY 6 HOURS PRN, Nausea, Vomiting, Starting on Wed03/26/21 at 1502, Administer if oral route cannot be used. 1621 (Given - Provider: Lana Vasquez RN) 0334 (Given - Provider: Nik Danielson RN) ondansetron (ZOFRAN-ODT) disintegrating tablet 4 mg(Linked Group 1) 4 mg, Oral, EVERY 8 HOURS PRN, Nausea, Vomiting, Starting on Wed03/26/21 at 1502 1621 (See Alternative - Provider: Lana Vasquez RN) 0334 (See Alternative - Provider: Nik Danielson RN) oxyCODONE (ROXICODONE) immediate release tablet 10 mg(Linked Group 2) 10 mg, Oral, EVERY 4 HOURS PRN, Pain Severe (7-10), Starting on Wed03/26/21 at 1504 1922 (Given - Provider: Nik Danielson RN)2338 (Given - Provider: Nik Danielson RN) 0334 (Given - Provider: Nik Danielson RN)0752 (Given - Provider: Carina Cornejo, RN) oxyCODONE (ROXICODONE) immediate release tablet 5 mg(Linked Group 2) 5 mg, Oral, EVERY 4 HOURS PRN, Pain Moderate (4-6), Starting on Wed03/26/21 at 1504 1922 (See Alternative - Provider: Nik Danielson RN)2338 (See Alternative - Provider: Nik Danielson RN) 0334 (See Alternative - Provider: Nik Danielson RN)0752 (See Alternative - Provider: Carina Cornejo, SYLVIA) promethazine (PHENERGAN) tablet 12.5 mg 12.5 mg, Oral, EVERY 4 HOURS PRN, Nausea, Starting on Wed03/26/21 at 1013 1045 (Given - Provider: Lana Vasquez RN)1925 (Given - Provider: Nik Danielson RN) sodium chloride flush 0.9 % injection 5-40 mL 5-40 mL, Intravenous, PRN, Line Care, After every IV line use, Starting on Wed03/26/21 at 1502, For Line Patency: Peripheral IV = 5 mL; Midline or Central Line = 10 mL/lumen. If following IV push medication, administer flush at same rate as the IV push. Flush volume is determined by type of infusion therapy being given. For non-viscous solutions use: Peripheral IV = 5 mL Midline or Central Line = 10 mL/lumen For viscous solutions (i.e. blood components, parenteral nutrition, contrast media, or after obtaining blood sample) use: Peripheral IV = 10 mL Midline or Central Line = 20 mL/lumen Linked Groups Order Group 1: ondansetron (ZOFRAN-ODT) disintegrating tablet 4 mgJump to med 4 mg, Oral, EVERY 8 HOURS PRN, Nausea, Vomiting, Starting on Wed03/26/21 at 1502 Or ondansetron (ZOFRAN) injection 4 mgJump to med 4 mg, Intravenous, EVERY 6 HOURS PRN, Nausea, Vomiting, Starting on Wed03/26/21 at 1502
Administer if oral route cannot be used.
Group 2: oxyCODONE (ROXICODONE) immediate release tablet 5 mgJump to med 5 mg, Oral, EVERY 4 HOURS PRN, Pain Moderate (4-6), Starting on Wed03/26/21 at 1504 Or oxyCODONE (ROXICODONE) immediate release tablet 10 mgJump to med 10 mg, Oral, EVERY 4 HOURS PRN, Pain Severe (7-10), Starting on Wed03/26/21 at 1504 Scheduled Medication Order 05/04/2022 05/05/2022 05/06/2022 acetaminophen (TYLENOL) tablet 1,000 mg 1,000 mg, Oral, EVERY 8 HOURS, First dose on Wed05/05/22 at 1830, Until Discontinued, Maximum dose of acetaminophen is 4000mg from all sources in 24 hours. Alternate ibuprofen and acetaminophen every 4 hours. 2009 (Not Given - Provider: Mitra Nam RN - Reason: Patient/family refused - Comment: nauseated) 0253 (Given - Provider: Cheyanne Macias RN)1136 (Given - Provider: Yanira Quinones RN)1857 (Not Given - Provider: Cam Piña RN - Reason: Other) diphenhydrAMINE (BENADRYL) injection 25 mg (COMPLETED) 25 mg, IntraVENous, ONCE, 1 dose, On Wed05/05/22 at 1315 1451 (Given - Provider: Dorcas Ulrich RN) docusate sodium (COLACE) capsule 100 mg 100 mg, Oral, 2 TIMES DAILY, First dose (after last modification) on Wed05/05/22 at 2100, Until Discontinued, Do not crush or break. 0003 (Given - Provid er: Cheyanne Macias RN - Comment: had to be sent from pharmacy.)0820 (Given - Provider: Yanira Quinones RN)2100 (Due) HYDROmorphone (DILAUDID) injection 0.5 mg (COMPLETED) HYDROmorphone (DILAUDID) 1.5mg IV is equivalent to morphine 10mg IV, 0.5 mg, IntraVENous, ONCE, 1 dose, On Wed05/05/22 at 1545, If oral and IV narcotics ordered, use oral first and only use IV if oral is ineffective or cannot take oral. Do Not give oral and IV within 1 hour of each other unless specifically ordered. 1545 (Given - Provider: Mitra Nam RN) HYDROmorphone (DILAUDID) injection 0.5 mg (COMPLETED) HYDROmorphone (DILAUDID) 1.5mg IV is equivalent to morphine 10mg IV, 0.5 mg, IntraVENous, ONCE, 1 dose, On Wed05/05/22 at 1615, If oral and IV narcotics ordered, use oral first and only use IV if oral is ineffective or cannot take oral. Do Not give oral and IV within 1 hour of each other unless specifically ordered. 1641 (Given - Provider: Margot Noriega RN) ibuprofen (ADVIL;MOTRIN) tablet 600 mg 600 mg, Oral, EVERY 6 HOURS, First dose on Wed05/06/22 at 1215, Until Discontinued, Do not crush or chew. 1300 (Given - Provid er: Yanira Quinones RN)1701 (Not Given - Provider: Cam Piña RN - Reason: Other) ketorolac (TORADOL) injection 30 mg (CANCELED) Ketorolac is contraindicated in patients with advanced renal impairment and in patients at risk of renal failure due to volume depletion. For 65 years of age and older OR weight less than 50 kg, use 15 mg IV every 6 hours; MAX dose: 60 mg/day. Dose greater than 30 mg must be administered via intramuscular route. Do not administer for more than 5 days., 30 mg, IntraVENous, EVERY 6 HOURS SCHEDULED (4 times per day), 20 doses, First dose on Wed05/05/22 at 1845, Last dose on Wed05/10/22 at 1200, Do not administer for more than 5 days. 1859 (Given - Provider: Mitra Nam RN) 0006 (Given - Provider: Cheyanne Macias, RN)0629 (Given - Provider: Kimberly Quinones, SYLVIA) lactated ringers bolus (COMPLETED) 1,974 mL (30 mL/kg 65.8 kg), IntraVENous, at 3,948 mL/hr, Administer over 30 Minutes, ONCE, On Wed05/05/22 at 1315, For 1 dose, In accordance with Surviving Sepsis Campaign, infuse 30 mL/kg fluid challenge as rapidly as possible without overloading patient (target 30 to 60 minutes). If calculated rate exceeds 999 mL/hr, may administer wide open or using other rapid infusion mechanism. 1450 (New Bag - Provider: Dorcas Ulrich, RN)1533 (Stopped - Provider: Mitra Nam RN) morphine sulfate (PF) injection 4 mg (COMPLETED) 4 mg, IntraVENous, ONCE, 1 dose, On Wed05/05/22 at 1315, If oral and IV narcotics ordered, use oral first and only use IV if oral is ineffective or cannot take oral. Do Not give oral and IV within 1 hour of each other unless specifically ordered. 1451 (Given - Provider: Dorcas Ulrich, SYLVIA) ondansetron (ZOFRAN) injection 4 mg (COMPLETED) 4 mg, IntraVENous, ONCE, 1 dose, On Wed05/05/22 at 1315 1450 (Given - Provider: Dorcas Ulrich RN) polyethylene glycol (GLYCOLAX) packet 17 g (COMPLETED) 17 g, Oral, ONCE, 1 dose, On Wed05/06/22 at 0745 0820 (Given - Provid er: Yanira Quinones RN) sodium chloride flush 0.9 % injection 10 mL 10 mL, IntraVENous, EVERY 12 HOURS SCHEDULED (2 times per day), First dose on Wed05/05/22 at 2100, Until Discontinued 0014 (Given - Provid er: Cheyanne Macias RN)0827 (Given - Provider: Cam Piña RN)2100 (Due) PRN Medication Order 05/04/2022 05/05/2022 05/06/2022 0.9 % sodium chloride infusion IntraVENous, at 5-250 mL/hr, PRN, if patient receiving piggyback infusions and maintenance fluids are not ordered OR KVO fluids to protect IV site / prevent frequent line interruptions/ long duration, Starting on Wed05/05/22 at 1829, For piggyback infusion, administer at same rate as piggyback for a total of 25 mL. Enter 25 mL into dose field and piggyback rate into rate field of order. If piggyback is infusing at a rate less than 100 mL/hr, enter 25 mL into dose field and 100 mL/hr into rate field of order. For KVO fluids, enter rate of 20 mL/hr or less into rate field of order. diphenhydrAMINE (BENADRYL) tablet 25 mg 25 mg, Oral, EVERY 6 HOURS PRN, Starting on Wed05/06/22 at 0826, Until Discontinued, Itching 0910 (Given - Provid er: Yanira Quinones RN)1513 (Given - Provider: Yanira Quinones RN) HYDROmorphone (DILAUDID) injection 0.25 mg (CANCELED) HYDROmorphone (DILAUDID) 1.5mg IV is equivalent to morphine 10mg IV, 0.25 mg, IntraVENous, EVERY 3 HOURS PRN, Starting on Wed05/05/22 at 1826, Until Wed05/06/22 at 0636, Pain Moderate (4-6), If oral and IV narcotics ordered, use oral first and only use IV if oral is ineffective or cannot take oral. Do Not give oral and IV within 1 hour of each other unless specifically ordered., Post-op 1858 (See Alternative - Provider: Mitra Nam RN) 4 (Given - Provider: Cheyanne Macias RN)628 (Given - Provider: Kimberly Quinones, SYLVIA) HYDROmorphone (DILAUDID) injection 0.5 mg (CANCELED) HYDROmorphone (DILAUDID) 1.5mg IV is equivalent to morphine 10mg IV, 0.5 mg, IntraVENous, EVERY 3 HOURS PRN, Starting on Wed05/05/22 at 1826, Until Wed05/06/22 at 0636, Pain Severe (7-10), If oral and IV narcotics ordered, use oral first and only use IV if oral is ineffective or cannot take oral. Do Not give oral and IV within 1 hour of each other unless specifically ordered., Post-op 1858 (Given - Provider: Mitra Nam RN) 4 (See Alternative - Provider: Cheyanne Macias RN)628 (See Alternative - Provider: Kimberly Quinones, SYLVIA) ketorolac (TORADOL) injection 30 mg (COMPLETED) Ketorolac is contraindicated in patients with advanced renal impairment and in patients at risk of renal failure due to volume depletion. For 65 years of age and older OR weight less than 50 kg, use 15 mg IV every 6 hours; MAX dose: 60 mg/day. Dose greater than 30 mg must be administered via intramuscular route. Do not administer for more than 5 days., 30 mg, IntraVENous, ONCE PRN, 1 dose, Starting on Wed05/06/22 at 1548, Until [place] 05/07/22 at 1548, give at time of discharge prior to taking out IV, at least 6 hours after last motrin dose, Do not administer for more than 5 days. 190 (Given - Provid er: Cam Piña RN) ondansetron (ZOFRAN) injection 4 mg(Linked Group 1) 4 mg, IntraVENous, EVERY 6 HOURS PRN, Starting on Wed05/05/22 at 1829, Until Discontinued, Nausea, Vomiting, Administer if oral route cannot be used. 185 (Given - Provider: Mitra Nam RN) 113 (See Alternative - Provider: Yanira Quinones RN) ondansetron (ZOFRAN-ODT) disintegrating tablet 4 mg(Linked Group 1) 4 mg, Oral, EVERY 8 HOURS PRN, Starting on Wed05/05/22 at 1829, Until Discontinued, Nausea, Vomiting 1858 (See Alternative - Provider: Mitra Nam RN) 113 (Given - Provider: Yanira Quinones RN) oxyCODONE (ROXICODONE) immediate release tablet 10 mg(Linked Group 2) 10 mg, Oral, EVERY 4 HOURS PRN, Starting on Wed05/05/22 at 1827, Until Discontinued, Pain Severe (7-10) 2122 (Given - Provider: Cheyanne Macias RN) 0209 (Given - Provider: Cheyanne Macias RN)0821 (Given - Provider: Yanira Quinones RN)1300 (Given - Provider: Yanira Quinones RN)1703 (Given - Provider: Yanira Quinones RN) oxyCODONE (ROXICODONE) immediate release tablet 5 mg(Linked Group 2) 5 mg, Oral, EVERY 4 HOURS PRN, Starting on Wed05/05/22 at 1827, Until Discontinued, Pain Moderate (4-6) 2122 (See Alternative - Provider: Cheyanne Macias RN) 0209 (See Alternative - Provider: Cheyanne Macias RN)0821 (See Alternative - Provider: Yanira Quinones RN)1300 (See Alternative - Provider: Yanira Quinones RN)1703 (See Alternative - Provider: Yanira Quinones RN) promethazine (PHENERGAN) injection 25 mg Only to be given as IM injection., 25 mg, IntraMUSCular, EVERY 6 HOURS PRN, Starting on Wed05/05/22 at 2054, Until Discontinued, Nausea, Recommended route is IM. sodium chloride flush 0.9 % injection 10 mL 10 mL, IntraVENous, PRN, Starting on Wed05/05/22 at 1829, Until Discontinued, Line Care, After every IV line use Linked Groups Order Group 1: ondansetron (ZOFRAN-ODT) disintegrating tablet 4 mgJump to med 4 mg, Oral, EVERY 8 HOURS PRN, Starting on Wed05/05/22 at 1829, Until Discontinued, Nausea, Vomiting Or ondansetron (ZOFRAN) injection 4 mgJump to med 4 mg, IntraVENous, EVERY 6 HOURS PRN, Starting on Wed05/05/22 at 1829, Until Discontinued, Nausea, Vomiting
Administer if oral route cannot be used.
Group 2: oxyCODONE (ROXICODONE) immediate release tablet 5 mgJump to med 5 mg, Oral, EVERY 4 HOURS PRN, Starting on Wed05/05/22 at 1827, Until Discontinued, Pain Moderate (4-6) Or oxyCODONE (ROXICODONE) immediate release tablet 10 mgJump to med 10 mg, Oral, EVERY 4 HOURS PRN, Starting on Wed05/05/22 at 1827, Until Discontinued, Pain Severe (7-10) Scheduled Medication Order 05/16/2023 05/17/2023 05/18/2023 diazePAM (Valium) tablet 2 mg (COMPLETED) 2 mg, Oral, Once, On Wed05/18/23 at 0350, For 1 dose 0350 (Given - Provid er: Snow Wiggins RN) HYDROmorphone (Dilaudid) injection 0.5 mg (COMPLETED) 0.5 mg, IntraVENous, Once, On Wed05/17/23 at 2255, For 1 dose, If oral and IV narcotics ordered, use oral first and only use IV if oral is ineffective or cannot take oral. Do Not give oral and IV within 1 hour of each other unless specifically ordered. 2314 (Given - Provider: Cheyanne Shane, RN) HYDROmorphone (Dilaudid) injection 0.5 mg (COMPLETED) 0.5 mg, IntraVENous, Once, On Wed05/18/23 at 0300, For 1 dose, If oral and IV narcotics ordered, use oral first and only use IV if oral is ineffective or cannot take oral. Do Not give oral and IV within 1 hour of each other unless specifically ordered. 030 (Given - Provid er: Snow Wiggins RN) morphine injection 4 mg (COMPLETED) 4 mg, IntraVENous, Once, On Wed05/17/23 at 2200, For 1 dose, If oral and IV narcotics ordered, use oral first and only use IV if oral is ineffective or cannot take oral. Do Not give oral and IV within 1 hour of each other unless specifically ordered. 2223 (Given - Provider: Julia Feng RN) promethazine (Phenergan) injection 12.5 mg (COMPLETED) 12.5 mg, IntraMUSCular, Once, On Wed05/18/23 at 0300, For 1 dose, Only to be given as IM injection. 0310 (Given - Provid er: Snow Wiggins RN) sodium chloride 0.9 % bolus 1,000 mL (COMPLETED) 1,000 mL, IntraVENous, at 1,000 mL/hr, Administer over 1 Hours, Once, On Wed05/17/23 at 2200, For 1 dose 2224 (New Bag - Provider: Julia Feng RN)2324 (Stopped - Provider: Cheyanne Shane RN) Scheduled Medication Order 08/03/2023 08/04/2023 08/05/2023 aluminum & magnesium hydroxide-simethicone (Mylanta) 200-200-20 MG/5ML oral suspension 20 mL (COMPLETED) 20 mL, Oral, Once, On Wed08/05/23 at 1945, For 1 dose 1950 (Given - Provid er: Emilie Hendrix RN) famotidine (Pepcid) 20 mg in sodium chloride (PF) 0.9 % 10 mL injection (COMPLETED) 20 mg, IntraVENous, Administer over 2 Minutes, Once, On Hazel 08/05/23 at 1945, For 1 dose, IV Push over minimum of 2 minutes - Dilute with 10 mL NS 1950 (Given - Provid er: Emilie Hendrix RN) metoclopramide (Reglan) injection 10 mg (COMPLETED) 10 mg, IntraVENous, Once, On Hazel 08/05/23 at 1945, For 1 dose 1950 (Given - Provid er: Emilie Hendrix RN) morphine injection 4 mg (COMPLETED) 4 mg, IntraVENous, Once, On Hazel 08/05/23 at 1945, For 1 dose, If oral and IV narcotics ordered, use oral first and only use IV if oral is ineffective or cannot take oral. Do Not give oral and IV within 1 hour of each other unless specifically ordered. 1950 (Given - Provid er: Emilie Hendrix RN) Scheduled Medication Order 02/14/2024 02/15/2024 02/16/2024 HYDROmorphone (Dilaudid) injection 1 mg (COMPLETED) 1 mg, IntraVENous, Once, On Wed02/16/24 at 1700, For 1 dose, If oral and IV narcotics ordered, use oral first and only use IV if oral is ineffective or cannot take oral. Do Not give oral and IV within 1 hour of each other unless specifically ordered. 1716 (Given - Provid er: Selam Snider RN) ketorolac (Toradol) injection 15 mg (COMPLETED) 15 mg, IntraVENous, Once, On Wed02/16/24 at 1920, For 1 dose 1919 (Given - Provid er: Layne Garber RN) promethazine (Phenergan) injection 25 mg (COMPLETED) 25 mg, IntraMUSCular, Once, On Wed02/16/24 at 1700, For 1 dose, Only to be given as IM injection. 1716 (Given - Provid er: Selam Snider RN) sodium chloride 0.9 % bolus 1,000 mL (COMPLETED) 1,000 mL, IntraVENous, at 1,000 mL/hr, Administer over 1 Hours, Once, On Wed02/16/24 at 1700, For 1 dose 1711 (New Bag - Prov ider: Selam Snider RN)1811 (Due: Stopped - Provider: Selam Snider RN) Scheduled Medication Order 06/03/2024 06/04/2024 06/05/2024 acetaminophen (Tylenol) tablet 1,000 mg (COMPLETED) 1,000 mg, Oral, Once, On Wed06/05/24 at 1910, For 1 dose, Maximum dose of acetaminophen is 4000 mg from all sources in 24 hours. 2002 (Given - Provid er: Cheyanne Shane RN) dicyclomine (Bentyl) injection 10 mg 10 mg, IntraMUSCular, Once, On Wed06/05/24 at 1910, For 1 dose 2000 (Not Given - Pr ovider: Cheyanne Shane RN - Reason: Patient/family refused) famotidine (Pepcid) 20 mg in sodium chloride (PF) 0.9 % 10 mL injection (COMPLETED) 20 mg, IntraVENous, Administer over 2 Minutes, Once, On Wed06/05/24 at 1909, For 1 dose, IV Push over minimum of 2 minutes - Dilute with 10 mL NS 1946 (Given - Provid er: Cheyanne Shane RN) ketorolac (Toradol) injection 15 mg (COMPLETED) 15 mg, IntraVENous, Once, On Wed06/05/24 at 1910, For 1 dose 1956 (Given - Provid er: Cheyanne Shane RN) sodium chloride 0.9 % bolus 1,500 mL 1,500 mL, IntraVENous, at 1,500 mL/hr, Administer over 1 Hours, Once, On Wed06/05/24 at 1910, For 1 dose 1909 (Not Given - Pr ovider: Cheyanne Shane RN - Reason: Patient/family refused) Scheduled Medication Order 09/22/2022 09/23/2022 09/24/2022 metoclopramide (Reglan) injection 10 mg (COMPLETED) 10 mg, IntraVENous, Once, On Hazel 09/24/22 at 2009, For 1 dose 2028 (Given - Provid er: Yenny Guy RN) morphine sulfate (PF) injection 4 mg (COMPLETED) 4 mg, IntraVENous, Once, On Hazel 09/24/22 at 2009, For 1 dose, If oral and IV narcotics ordered, use oral first and only use IV if oral is ineffective or cannot take oral. Do Not give oral and IV within 1 hour of each other unless specifically ordered. 2028 (Given - Provid er: Yenny Guy RN) sodium chloride 0.9 % bolus 1,000 mL (COMPLETED) 1,000 mL, IntraVENous, at 1,000 mL/hr, Administer over 1 Hours, Once, On Hazel 09/24/22 at 2010, For 1 dose 2026 (New Bag - Prov ider: Yenny Guy RN)2133 (Stopped - Provider: Yenny Guy RN) Scheduled Medication Order 11/06/2024 11/07/2024 11/08/2024 HYDROcodone-acetaminophen (Hague) 5-325 MG per tablet 1 tablet (COMPLETED) 1 tablet, Oral, Once, On Wed11/08/24 at 1950, For 1 dose, Maximum dose of acetaminophen is 4000 mg from all sources in 24 hours. 1953 (Given - Provid er: Janet Torres RN) HYDROmorphone (Dilaudid) injection 0.5 mg (COMPLETED) 0.5 mg, IntraVENous, Once, On Wed11/08/24 at 1850, For 1 dose, If oral and injectable narcotics ordered, use oral first and only use injectable if oral is ineffective or cannot take oral. Do Not give oral and injectable within 1 hour of each other unless specifically ordered. 1902 (Given - Provid er: Janet Torres RN) sodium chloride 0.9 % bolus 1,000 mL (COMPLETED) 1,000 mL, IntraVENous, at 1,000 mL/hr, Administer over 1 Hours, Once, On Wed11/08/24 at 1850, For 1 dose 1902 (New Bag - Prov ider: Janet Torers RN)2002 (Stopped - Provider: Janet Torres RN - Comment: pt discharged) Scheduled Medication Order 01/09/2025 01/10/2025 01/11/2025 diphenhydrAMINE (BENADryl) injection 12.5 mg (COMPLETED) 12.5 mg, IntraVENous, Once, On Wed01/10/25 at 2255, For 1 dose 2259 (Given - Provider: Shaunna Thapa RN) diphenhydrAMINE (BENADryl) injection 25 mg (COMPLETED) 25 mg, IntraVENous, Once, On Wed01/10/25 at 2340, For 1 dose 2350 (Given - Provider: Shaunna Thapa RN) HYDROmorphone (Dilaudid) injection 0.5 mg (COMPLETED) 0.5 mg, IntraVENous, Once, On Wed01/10/25 at 2145, For 1 dose 2211 (Given - Provider: Shaunna Thapa, SYLVIA) prochlorperazine (Compazine) injection 10 mg (COMPLETED) 10 mg, IntraVENous, Once, On Wed01/10/25 at 2145, For 1 dose 2210 (Given - Provider: Shaunna Thapa, SYLVIA) Care Teams (unrecognized sec tion and content) Hr Administrator Relationship Specialty Start Date End Date Joseph Johnson DO [address] [place] [address] PCP - General 02/18/17 Hr Administrator Relationship Specialty Start Date End Date Joseph Johnson DO [address] [place] [address] PCP - General 02/18/17 Hr Administrator Relationship Specialty Start Date End Date Joseph Johnson DO [address] [place] [address] PCP - General Family Medicine 04/21/18 Hr Administrator Relationship Specialty Start Date End Date Joseph Johnson DO [address] [place] [address] PCP - General Family Medicine 04/21/18 Hr Administrator Relationship Specialty Start Date End Date Joseph Johnson DO [address] [place] [address] PCP - General 02/18/17 Hr Administrator Relationship Specialty Start Date End Date Joseph Johnson DO [address] [place] [address] PCP - General 02/18/17 Hr Administrator Relationship Specialty Start Date End Date Joseph Johnson DO [address] [place] [address] PCP - General 02/18/17 Hr Administrator Relationship Specialty Start Date End Date Joseph Johnson DO [address] [place] [address] PCP - General 02/18/17 Hr Administrator Relationship Specialty Start Date End Date Joseph Johnson DO [address] [place] [address] PCP - General 02/18/17 Hr Administrator Relationship Specialty Start Date End Date Joseph Johnson DO [address] [place] [address] PCP - General 02/18/17 Hr Administrator Relationship Specialty Start Date End Date Lizeth Churchill PA-C [address] [place] [phone] PCP - General Physician Therapeutic Mentor 05/25/23 05/25/23 Hr Administrator Relationship Specialty Start Date End Date Lizeth Churchill PA-C [address] [place] [phone] PCP - General Physician Therapeutic Mentor 05/27/23 Hr Administrator Relationship Specialty Start Date End Date Lizeth Churchill PA-C [address] [place] [phone] PCP - General Physician Therapeutic Mentor 05/27/23 Hr Administrator Relationship Specialty Start Date End Date Joseph Johnson DO [address] [place] [address] PCP - General Family Medicine 07/08/23 Hr Administrator Relationship Specialty Start Date End Date Joseph Johnson DO [address] [place], [place] [id number] PCP - General Family Medicine 07/08/23 Hr Administrator Relationship Specialty Start Date End Date Lizeth Churchill PA-C [address] [place] [address] PCP - General Physician Therapeutic Mentor 05/27/23 Hr Administrator Relationship Specialty Start Date End Date Joseph Johnson DO [address] [place], [place] [id number] PCP - General Family Medicine 07/08/23 Team Status: Active Member Role Status Dates Dr. Joseph Johnson DO Family Provider Active LIZETH CHURCHILL Primary Care Provider Active Team Status: Inactive Member Role Status Dates KERLINE STONE Primary Care Provider Active Dr. Trent Carr , Emergency Provider Active Hr Administrator Relationship Specialty Start Date End Date Lizeth Churchill PA-C [address] [place] [phone] PCP - General Physician Therapeutic Mentor 11/15/23 Hr Administrator Relationship Specialty Start Date End Date Joseph Johnson DO [address] [place] [address] PCP - General Family Medicine 07/08/23 Hr Administrator Relationship Specialty Start Date End Date Lizeth Churchill PA-C [address] [place] [phone] PCP - General Physician Therapeutic Mentor 11/15/23 Hr Administrator Relationship Specialty Start Date End Date Lizeth Churchill PA-C [address] [place] [address] PCP - General Physician Therapeutic Mentor 11/15/23 Hr Administrator Relationship Specialty Start Date End Date Lizeth Churchill PA-C [address] [place] [address] PCP - General Physician Therapeutic Mentor 11/15/23 Hr Administrator Relationship Specialty Start Date End Date Lizeth Churchill PA-C [address] [place] [address] PCP - General Physician Therapeutic Mentor 11/15/23 Hr Administrator Relationship Specialty Start Date End Date Lizeth Churchill PA-C [address] [place] [address] PCP - General Physician Therapeutic Mentor 11/15/23 Hr Administrator Relationship Specialty Start Date End Date Lizeth Churchill PA-C [address] [place] [address] PCP - General Physician Therapeutic Mentor 11/15/23 Hr Administrator Relationship Specialty Start Date End Date Philippe Chua DO [address] [place] [address] PCP - General Family Medicine 02/23/24 Hr Administrator Relationship Specialty Start Date End Date Philippe Chua DO [address] [place] [address] PCP - General Family Medicine 02/23/24 Hr Administrator Relationship Specialty Start Date End Date Philippe Chua DO [address] [place] [address] PCP - General Family Medicine 02/23/24 Hr Administrator Relationship Specialty Start Date End Date TomaPhilippe DO [address] [place] [address] PCP - General Family Medicine 03/09/24 Hr Administrator Relationship Specialty Start Date End Date TomaPhilippe DO [address] [place] [address] PCP - General Family Medicine 03/09/24 Hr Administrator Relationship Specialty Start Date End Date Toma Philippe Redding DO [address] [place] [address] PCP - General Family Medicine 03/09/24 Hr Administrator Relationship Specialty Start Date End Date Joseph Johnson, DO [address] [place] [address] PCP - General Family Medicine 07/08/23 03/08/24 Hr Administrator Relationship Specialty Start Date End Date TomaPhilippe DO [address] [place] [address] [address] [place] [address] PCP - General Family Medicine 02/23/24 Hr Administrator Relationship Specialty Start Date End Date Toma Philippe Wilkerson, DO [address] [place], [place] [id number] PCP - General Family Medicine 03/09/24 Hr Administrator Relationship Specialty Start Date End Date Philippe Chua Adele DO [address] [place], [place] [phone] PCP - General Family Medicine 03/09/24 Hr Administrator Relationship Specialty Start Date End Date Philippe Chua DO [address] [place] [address] PCP - General Family Medicine 02/23/24 Hr Administrator Relationship Specialty Start Date End Date Philippe Chua DO [address] [place], [place] [phone] PCP - General Family Medicine 03/09/24 Hr Administrator Relationship Specialty Start Date End Date Philippe Chua DO [address] [place] [address] PCP - General Family Medicine 02/23/24 Hr Administrator Relationship Specialty Start Date End Date Philippe Chua DO [address] [place] [address] PCP - General Family Medicine 03/09/24 Hr Administrator Relationship Specialty Start Date End Date Philippe Chua DO [address] [place] [address] PCP - General Family Medicine 02/23/24 Hr Administrator Relationship Specialty Start Date End Date Joseph Johnson DO [address] [place] [address] PCP - General 02/18/17 Hr Administrator Relationship Specialty Start Date End Date Joseph Johnson DO [address] [place], [place] [phone] PCP - General 02/18/17 Hr Administrator Relationship Specialty Start Date End Date Joseph Johnson DO [address] [place], [place] [id number] PCP - General 02/18/17 Hr Administrator Relationship Specialty Start Date End Date Joseph Johnson DO [address] [place], [place] [phone] PCP - General 02/18/17 Hr Administrator Relationship Specialty Start Date End Date Lizeth Churchill PA-C [address] [place] [address] PCP - General Physician Therapeutic Mentor 05/27/23 Hr Administrator Relationship Specialty Start Date End Date Philippe Chua DO [address] [place] [address] PCP - General Family Medicine 03/09/24 Hr Administrator Relationship Specialty Start Date End Date Philippe Chua DO [address] [place] [address] PCP - General Family Medicine 03/09/24 Hr Administrator Relationship Specialty Start Date End Date Philippe Cuha DO [address] [place] [address] PCP - General Family Medicine 03/09/24 Hr Administrator Relationship Specialty Start Date End Date Philippe Chua DO [address] [place] [address] PCP - General Family Medicine 03/09/24 Hr Administrator Relationship Specialty Start Date End Date Philippe Chua DO [address] [place] [address] PCP - General Family Medicine 03/09/24 Hr Administrator Relationship Specialty Start Date End Date Philippe Chua DO [address] [place] [phone] PCP - General Family Medicine 02/23/24 Hr Administrator Relationship Specialty Start Date End Date Philippe Chua DO [address] [place] [phone] PCP - General Family Medicine 02/23/24 Hr Administrator Relationship Specialty Start Date End Date Philippe Chua, DO [address] [place] [phone] PCP - General Family Medicine 02/23/24 Hr Administrator Relationship Specialty Start Date End Date Philippe Chua, DO [address] [place] [phone] PCP - General Family Medicine 02/23/24 Hr Administrator Relationship Specialty Start Date End Date Philippe Chua, DO [address] [place] [phone] PCP - General Family Medicine 02/23/24 Hr Administrator Relationship Specialty Start Date End Date Philippe Chua, DO [address] [place] [phone] PCP - General Family Medicine 02/23/24 Source Comments (unrecognize d section and content) In the event this informatio n is protected by the Federal Confidentiality of Alcohol and Drug Abuse Patient Records regulations: The Federal rules restrict any use of the information to criminally investigate or prosecute any alcohol or drug abuse patient.[facility] the event this information is protected by the Federal Confidentiality of Alcohol and Drug Abuse Patient Records regulations: The Federal rules restrict any use of the information to criminally investigate or prosecute any alcohol or drug abuse patient.[facility]In the event this information is protected by the Federal Confidentiality of Alcohol and Drug Abuse Patient Records regulations: The Federal rules restrict any use of the information to criminally investigate or prosecute any alcohol or drug abuse patient.[facility]In the event this information is protected by the Federal Confidentiality of Alcohol and Drug Abuse Patient Records regulations: The Federal rules restrict any use of the information to criminally investigate or prosecute any alcohol or drug abuse patient.[facility] HospitalIn the event this information is protected by the Federal Confidentiality of Alcohol and Drug Abuse Patient Records regulations: The Federal rules restrict any use of the information to criminally investigate or prosecute any alcohol or drug abuse patient.[facility]In the event this information is protected by the Federal Confidentiality of Alcohol and Drug Abuse Patient Records regulations: The Federal rules restrict any use of the information to criminally investigate or prosecute any alcohol or drug abuse patient.[facility] HospitalIn the event this information is protected by the Federal Confidentiality of Alcohol and Drug Abuse Patient Records regulations: The Federal rules restrict any use of the information to criminally investigate or prosecute any alcohol or drug abuse patient.[facility]In the event this information is protected by the Federal Confidentiality of Alcohol and Drug Abuse Patient Records regulations: The Federal rules restrict any use of the information to criminally investigate or prosecute any alcohol or drug abuse patient.[facility]In the event this information is protected by the Federal Confidentiality of Alcohol and Drug Abuse Patient Records regulations: The Federal rules restrict any use of the information to criminally investigate or prosecute any alcohol or drug abuse patient.[facility]In the event this information is protected by the Federal Confidentiality of Alcohol and Drug Abuse Patient Records regulations: The Federal rules restrict any use of the information to criminally investigate or prosecute any alcohol or drug abuse patient.[facility]In the event this information is protected by the Federal Confidentiality of Alcohol and Drug Abuse Patient Records regulations: The Federal rules restrict any use of the information to criminally investigate or prosecute any alcohol or drug abuse patient.[facility]In the event this information is protected by the Federal Confidentiality of Alcohol and Drug Abuse Patient Records regulations: The Federal rules restrict any use of the information to criminally investigate or prosecute any alcohol or drug abuse patient.[facility]In the event this information is protected by the Federal Confidentiality of Alcohol and Drug Abuse Patient Records regulations: The Federal rules restrict any use of the information to criminally investigate or prosecute any alcohol or drug abuse patient.[facility]In the event this information is protected by the Federal Confidentiality of Alcohol and Drug Abuse Patient Records regulations: The Federal rules restrict any use of the information to criminally investigate or prosecute any alcohol or drug abuse patient.[facility]In the event this information is protected by the Federal Confidentiality of Alcohol and Drug Abuse Patient Records regulations: The Federal rules restrict any use of the information to criminally investigate or prosecute any alcohol or drug abuse patient.[facility] HospitalIn the event this information is protected by the Federal Confidentiality of Alcohol and Drug Abuse Patient Records regulations: The Federal rules restrict any use of the information to criminally investigate or prosecute any alcohol or drug abuse patient.[facility]In the event this information is protected by the Federal Confidentiality of Alcohol and Drug Abuse Patient Records regulations: The Federal rules restrict any use of the information to criminally investigate or prosecute any alcohol or drug abuse patient.[facility] HospitalIn the event this information is protected by the Federal Confidentiality of Alcohol and Drug Abuse Patient Records regulations: The Federal rules restrict any use of the information to criminally investigate or prosecute any alcohol or drug abuse patient.[facility] HospitalIn the event this information is protected by the Federal Confidentiality of Alcohol and Drug Abuse Patient Records regulations: The Federal rules restrict any use of the information to criminally investigate or prosecute any alcohol or drug abuse patient.[facility] HospitalIn the event this information is protected by the Federal Confidentiality of Alcohol and Drug Abuse Patient Records regulations: The Federal rules restrict any use of the information to criminally investigate or prosecute any alcohol or drug abuse patient.[facility] HospitalIn the event this information is protected by the Federal Confidentiality of Alcohol and Drug Abuse Patient Records regulations: The Federal rules restrict any use of the information to criminally investigate or prosecute any alcohol or drug abuse patient.[facility] HospitalIn the event this information is protected by the Federal Confidentiality of Alcohol and Drug Abuse Patient Records regulations: The Federal rules restrict any use of the information to criminally investigate or prosecute any alcohol or drug abuse patient.[facility] HospitalIn the event this information is protected by the Federal Confidentiality of Alcohol and Drug Abuse Patient Records regulations: The Federal rules restrict any use of the information to criminally investigate or prosecute any alcohol or drug abuse patient.[facility] HospitalIn the event this information is protected by the Federal Confidentiality of Alcohol and Drug Abuse Patient Records regulations: The Federal rules restrict any use of the information to criminally investigate or prosecute any alcohol or drug abuse patient.[facility] HospitalIn the event this information is protected by the Federal Confidentiality of Alcohol and Drug Abuse Patient Records regulations: The Federal rules restrict any use of the information to criminally investigate or prosecute any alcohol or drug abuse patient.[facility]In the event this information is protected by the Federal Confidentiality of Alcohol and Drug Abuse Patient Records regulations: The Federal rules restrict any use of the information to criminally investigate or prosecute any alcohol or drug abuse patient.[facility] HospitalIn the event this information is protected by the Federal Confidentiality of Alcohol and Drug Abuse Patient Records regulations: The Federal rules restrict any use of the information to criminally investigate or prosecute any alcohol or drug abuse patient.[facility] Goals (unrecognized section and content) Goals may be documented in a n alternate section FOR RECORDS PERTAINING TO PATIENTS WHO ARE OR HAVE BEEN ENROLLED IN A CHEMICAL DEPENDENCY/SUBSTANCEABUSE PROGRAM, SOME INFORMATION MAY BE OMITTED. This clinical summary was aggregated from multiple sources. Caution should be exercised in using it in the provision of clinical care. This summary normalizes information from multiple sources, and as a consequence, information in this document may materially change the coding, format and clinical context of patient data. In addition, data may be omitted in some cases. CLINICAL DECISIONS SHOULD BE BASED ON THE PRIMARY CLINICAL RECORDS. [facility]. provides no warranty or guarantee of the accuracy or completeness of information in this document.
--- NOTE | 2025-01-20 14:45 | MRI_ITS ---
PROCEDURE: LOWER EXT JOINT ONLY (ROUTINE) 01/20/2025 REASON FOR EXAM: RT HIP SPRAIN TECHNIQUE: T1, stir, PD, T2, MRI of the right hip. Multiplanar and multisequence images were obtained without IV contrast administration. COMPARISON: COMPARISON : None FINDINGS: Bone marrow and osseous structures: There is no abnormal marrow edema to suggest stress reaction or fracture. There is no MR evidence of avascular necrosis. Articular cartilage: No significant joint space narrowing. No full or partial- thickness cartilage defects are identified. Labrum: No discrete labral tear or paralabral cyst. Hip joint: There is no intra-articular body. The ligamentum teres is unremarkable. Hip abductors: The gluteus medius and minimus tendons are intact without tendinosis or tear. Iliopsoas tendon: Intact without tendinosis or tear. There is fluid distention of the iliopsoas bursa, with iliopsoas bursitis. MRI/Lower Ext Joint Only (Routine) IMPRESSION: There is fluid distention of the iliopsoas bursa, with iliopsoas bursitis. Reading Location: [facility]
== END | disposition home or self-care (01) ==
LOC: MRI 14:13
PROVIDERS: PCP Family Medicine; Referring Provider Student in an Organized Health Care Education/Training Program; Visit Provider Student in an Organized Health Care Education/Training Program
DX: S73.191A Other sprain of right hip, initial encounter (principal); X58.XXXA Exposure to other specified factors, initial encounter
CPT/HCPCS: 73721